=== PATIENT | male | born 1945 | race Two or more races ===

== ENCOUNTER 2023-10-24 12:24 | Emergency (ER) | payer MEDICARE, MEDICAID, SELFPAY ==
[2023-10-24] VITALS (23 sets, daily range): BP systolic 125–149; BP diastolic 72–106; PULSE 60–72; RESP 15–22; TEMP 36.5; O2SAT 94–99; BMI 30.2
--- NOTE | 2023-10-24 12:38 | ECG_ITS ---
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
--- NOTE | 2023-10-24 12:56 | PC.NURSE ---
pt states he's been having black stools for 2 weeks. weakness and dizziness since yesterday. pt does take a blood thinner.
[2023-10-24 13:09] LABS: Basophils Percent Auto 0.2 % (0.2-2.0); Eosinophils Absolute Auto 0.1 10^3/uL (0.0-0.7); Eosinophils Percent Auto 2.5 % (0.9-7.0); Hematocrit 42.7 % (42.0-54.0); Hemoglobin 13.3 g/dL (14.0-18.0); Immature Granulocytes Abs Auto 0.01 10^3/uL (0.00-0.03); Immature Granulocytes Pct Auto 0.2 % (0.0-0.5); Lymphocytes Absolute Auto 1.6 10^3/uL (1.2-3.8); Lymphocytes Percent Auto 30.4 % (20.5-60.0); Mean Corpuscular HGB Conc 31.1 g/dL (29.9-35.2); Mean Corpuscular Hemoglobin 28.8 pg (25.9-34.0); Mean Corpuscular Volume 92.4 fL (80.0-94.0); Mean Platelet Volume 9.5 fL (9.5-13.5); Monocytes Absolute Auto 0.4 10^3/uL (0.3-0.8); Neutrophils Percent Auto 58.7 % (43.0-75.0); Platelet Count 142 10^3/uL (150-450); Red Blood Count 4.62 10^6/uL (4.70-6.10); Red Cell Distribution Width 13.4 % (11.0-15.0); White Blood Count 5.1 10^3/uL (4.0-11.0)
--- NOTE | 2023-10-24 13:09 | CT_ITS ---
The [address] [address] Patient Name: TAJ RING MRN: [id number] date: 1945 Sex: M Assigned Patient Location: ER Current Patient Location: Accession/Order Number: [id number] Exam Date: 10/24/2023 13:20 Report Date: 10/24/2023 14:12 At the request of: JAROD PENNINGTON Procedure: CT abdomen pelvis wo con EXAM: CT abdomen pelvis wo con CLINICAL INDICATION: abd pain left upper and black stool COMPARISON: CT abdomen/pelvis 04/21/2016 TECHNIQUE: Axial CT of the abdomen, and pelvis was performed from the top of the hemidiaphragms to the inferior osseous pelvis without intravenous contrast. 2-D reformats were obtained. Automatic exposure control radiation dose reduction technology was utilized. FINDINGS: Evaluation is limited by lack of intravenous contrast. Visualized portion of the lung bases are unremarkable. Simple bilateral renal parapelvic cysts. The liver, spleen, adrenal glands and pancreas are unremarkable. Gallbladder present. No abdominal aortic aneurysm. No enlarged lymph nodes, free fluid, or free air. Diverticulosis coli without evidence for diverticulitis. The bowel is without evidence of obstruction or adjacent inflammatory changes. Bladder unremarkable. No suspicious osseous lesions. CT/CT abdomen pelvis wo con IMPRESSION: 1. No significant acute abnormality identified in the abdomen or pelvis, within the limits of unenhanced CT, as described above. Diverticulosis coli without evidence for diverticulitis. Electronically authenticated by: BRENDA SCHMID Date: 10/24/2023 14:12
--- NOTE | 2023-10-24 13:10 | ED_ITS ---
HPI - General Adult General Chief complaint: GI Bleed Stated complaint: rectal bleeding Time Seen by Provider: 10/24/23 12:37 Source: patient and family Mode of arrival: Wheelchair Limitations: physical limitation History of Present Illness HPI narrative: The patient is coming to the ER with a left upper quadrant epigastric pain in his abdomen in addition to black stool for the last 2 weeks, he noted that he is having 1 bout of black stool every morning for the last 2 weeks, he noticed that there was no blood in stool but there was no vomiting at any time and the patient did had nausea. The patient abdominal pain is continuous for the last 2 weeks he has not been taking any ibuprofen or mkwi-nhe-vlqeekk medication. He also noticed over the last few days that he has been having dizzy he is mostly dizzy when he is standing up. No chest pain no difficulty breathing Related Data Previous Rx's Medication Instructions Recorded dicyclomine 20 mg tablet 20 mg PO QID PRN abdominal pain 10/24/23 #10 tabs famotidine 20 mg tablet (Pepcid) 20 mg PO BID #10 tabs 10/24/23 pantoprazole 40 mg tablet,delayed 40 mg PO DAILY #30 tabs 10/24/23 release (Protonix) Allergies Allergy/AdvReac Type Severity Reaction Status Date / Time No Known Drug Allergies Allergy Verified 10/24/23 12:35 Review of Systems ROS Status of ROS 10 or more systems reviewed and unremark able except as noted in history and below [facility] Social History Smoking status: Never smoker Exam Narrative Exam Narrative: Nurses notes and vital signs reviewed and patient is not hypoxic. General: Well-appearing and in no apparent distress. Skin: Warm, dry, no pallor noted. No rash. Head: Normocephalic, atraumatic. Neck: Supple, non-tender. Eye: Pupils are equal, round and EOMI. No scleral icterus. Ears, Nose, Mouth, and Throat: TM are clear, no nasal mucosal hypertrophy. Oral mucosa is moist, no posterior oropharynx erythema, uvula is mid-line Cardiovascular: Regular Rate and Rhythm without murmur, gallop or rub. Respiratory: No accessory muscle use or respiratory distress. Lungs are clear to auscultation, no wheezing, rales or rhonchi Chest Wall: no tenderness Back: No midline thoracic or lumbar vertebral tenderness. No CVA tenderness Musculoskeletal: normal ROM, no calf or popliteal tenderness, no lower extremity edema/swelling GI: Abdomen is soft, distended abdomen with a left upper quadrant tenderness on deep palpation as well as epigastric tenderness. On rectal examination the patient have a very small hemorrhoid that is not bleeding with some black stool remnants at the verge of the rectum . Neurological: A&O x4. No cranial nerve dysfunction observed. No truncal ataxia. Moves all extremities. Sensation intact. Psychiatric: Cooperative and interactive. Normal mood and affect. Constitutional Vital Signs, click to edit/add: Last Vital Signs Temp 97.7 F 10/24/23 12:32 Pulse 62 10/24/23 15:30 Resp 15 10/24/23 15:30 BP 140/92 H 10/24/23 15:30 Pulse Ox 97 10/24/23 15:30 O2 Del Method Room Air 10/24/23 12:32 Course Vital Signs Vital signs: Vital Signs Temperature 97.7 F 10/24/23 12:32 Pulse Rate 63 10/24/23 12:32 Respiratory Rate 18 10/24/23 12:32 Blood Pressure 149/84 H 10/24/23 12:32 Pulse Oximetry 97 10/24/23 12:32 Oxygen Delivery Method Room Air 10/24/23 12:32 Temperature 97.7 F 10/24/23 12:32 Pulse Rate 62 10/24/23 15:30 Respiratory Rate 15 10/24/23 15:30 Blood Pressure 140/92 H 10/24/23 15:30 Pulse Oximetry 97 10/24/23 15:30 Oxygen Delivery Method Room Air 10/24/23 12:32 Medical Decision Making [facility] Narrative Medical decision making narrative: The patient was complaining of 1 bout of black stool daily for the last 2 weeks with crampy abdominal pain mostly in the left upper and lower quadrant, he did mention that he had a colonoscopy not long time ago during which they removed some polyps. The patient also mentioned that he was using Pepto-Bismol over the last 2 weeks when he have stomach pain. The patient in the ER was not orthostatic and he did not have any dizziness. The patient received Protonix as well as morphine after which she was feeling better for his pain The patient also had CAT scan of the abdomen showing no acute significant pathology. The patient occult blood was negative It was noted also that the patient came to us here today requesting to be evaluated for gastroenterology I did explain to the patient right now that he does not have any acute significant pathology and the workup that we did is hemoglobin level was around 14. There is no previous workup recently done for him to compare the level but the patient was not orthostatic and his occult was negative The patient was referred to gastroenterology as outpatient started on Pepcid and Protonix for his stomach instructed to stop using Pepto-Bismol at the moment and he also instructed to continue liquid diet for the next 2 to 3 days Patient have an appointment with his primary care doctor on Wednesday in which he is supposed to get his blood workup to be done. The patient also instructed that in case of increasing pain or any nausea or vomiting or any blood in stool again he is to come back to the ER The patient is to follow up with primary care physician in next 2-3 days or to return to the emergency department should any of the signs or symptoms worsen or new symptoms develop. The patient agrees with the following Diagnosis and Treatment plan and the patient will be discharged home. Lab Data Labs: Lab Results 10/24/23 Range/Units 12:50 WBC 5.1 (4.0-11.0) 10^3/uL RBC 4.62 L (4.70-6.10) 10^6/uL Hgb 13.3 L (14.0-18.0) g/dL Hct 42.7 (42.0-54.0) % MCV 92.4 (80.0-94.0) fL MCH 28.8 (25.9-34.0) pg MCHC 31.1 (29.9-35.2) g/dL RDW 13.4 (11.0-15.0) % Plt Count 142 L (150-450) 10^3/uL MPV 9.5 (9.5-13.5) fL Neut % (Auto) 58.7 (43.0-75.0) % Lymph % (Auto) 30.4 (20.5-60.0) % [place] % (Auto) 8.0 (1.7-12.0) % Eos % (Auto) 2.5 (0.9-7.0) % Baso % (Auto) 0.2 (0.2-2.0) % Neut # (Auto) 3.0 (1.4-6.5) 10^3/uL Lymph # (Auto) 1.6 (1.2-3.8) 10^3/uL [place] # (Auto) 0.4 (0.3-0.8) 10^3/uL Eos # (Auto) 0.1 (0.0-0.7) 10^3/uL Baso # (Auto) 0.0 (0.0-0.1) 10^3/uL Abs Immat Gran (auto) 0.01 (0.00-0.03) 10^3/uL Imm/Tot Granulo (auto) 0.2 (0.0-0.5) % PT 10.8 (9.0-11.6) sec INR 1.02 Sodium 145 (136-145) mmol/L Potassium 4.5 (3.5-5.1) mmol/L Chloride 109 H (98-107) mmol/L Carbon Dioxide 28.3 (21.0-32.0) mmol/L Anion Gap 12.2 BUN 20.0 H (7.0-18.0) mg/dL Creatinine 1.52 H (0.70-1.30) mg/dL Est GFR ( Amer) 54 L (>=60) Est GFR (Non-Af Amer) 45 L (>=60) BUN/Creatinine Ratio 13.2 Glucose 111 H (74-106) mg/dL Calcium 8.7 (8.5-10.1) mg/dL Total Bilirubin 0.6 (0.2-1.0) mg/dL AST 23 (15-37) U/L ALT 30 (16-63) U/L Alkaline Phosphatase 100 (46-116) U/L Troponin I High Sens 5.8 (4.0-76.1) pg/mL Total Protein 7.0 (6.4-8.2) g/dL Albumin 3.5 (3.4-5.0) g/dL Globulin 3.5 g/dL Albumin/Globulin Ratio 1.0 Stool Occult Blood Negative Blood Type O Positive Antibody Screen Negative Discharge Plan Discharge Chief Complaint: GI Bleed Clinical Impression: Black stool Abdominal pain Qualifiers: Abdominal location: generalized Qualified Code(s): R10.84 - Generalized abdominal pain Patient Disposition: Home, Self-Care Time of Disposition Decision: 16:09 Condition: Good Prescriptions / Home Meds: New famotidine [Pepcid] 20 mg tablet 20 mg PO BID Qty: 10 0RF pantoprazole [Protonix] 40 mg tablet,delayed release (DR/EC) 40 mg PO DAILY Qty: 30 0RF dicyclomine 20 mg tablet 20 mg PO QID PRN (Reason: abdominal pain) Qty: 10 0RF Instructions: Abdominal Pain (ED) Additional Instructions: Please follow up with Dr Hickey from [facility] [place] [address] [phone] Stand Alone Forms: Portal Instructions Referrals: KELLEN BALBUENA [Primary Care Provider] - 1 week
[2023-10-24] MEDS: 0.9 % SODIUM CHLORIDE 1,000 ML 1000 ML IV (13:13)
[2023-10-24 13:15] LABS: INR 1.02; Prothrombin Time 10.8 sec (9.0-11.6)
[2023-10-24 13:18] LABS: Occult Blood Negative
[2023-10-24 13:22] LABS: Alanine Aminotransferase 30 U/L (16-63); Albumin Level 3.5 g/dL (3.4-5.0); Alkaline Phosphatase 100 U/L (46-116); Anion Gap 12.2; Aspartate Amino Transferase 23 U/L (15-37); BUN Creatinine Ratio 13.2; Bilirubin Total 0.6 mg/dL (0.2-1.0); Calcium 8.7 mg/dL (8.5-10.1); Carbon Dioxide 28.3 mmol/L (21.0-32.0); Chloride 109 mmol/L (98-107); Estimated GFR (African America 54 (>=60); Estimated GFR (Non-African Ame 45 (>=60); Globulin 3.5 g/dL; Glucose 111 mg/dL (74-106); Potassium 4.5 mmol/L (3.5-5.1); Sodium 145 mmol/L (136-145); Troponin I High Sensitivity 5.8 pg/mL (4.0-76.1)
[2023-10-24] MEDS: PANTOPRAZOLE SODIUM 40 MG VIAL 80 MG IV (13:34)
[2023-10-24] MEDS: MORPHINE SULFATE 4 MG/ML VIAL IV (15:06)
== END 2023-10-24 16:32 | disposition home or self-care (01) ==
PROVIDERS: Emergency Provider Emergency Medicine; PCP Internal Medicine
DX: R19.5 Other fecal abnormalities (principal); R10.84 Generalized abdominal pain
CPT/HCPCS: 36415; 74176; 80053; 84484; 85025; 85610; 86850; 86900; 86901; 93005; 96361; 96374; 96375; 99285; G0328; J2270

== ENCOUNTER 2024-06-07 10:14 | Emergency (ER) | payer MEDICARE, MEDICAID, SELFPAY ==
[2024-06-07] VITALS (23 sets, daily range): BP systolic 112–148; BP diastolic 75–88; PULSE 56–69; TEMP 36.7–36.8; O2SAT 94–97
--- NOTE | 2024-06-07 10:37 | ECG_ITS ---
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
--- NOTE | 2024-06-07 10:44 | ED.CHESTPAI1 ---
HPI - Chest Pain General Chief Complaint: Chest Pain Stated Complaint: CHEST PAIN/SHORTNESS OF BREATH Time Seen by Provider: 06/07/24 10:17 Source: patient Mode of arrival: walk-in History of Present Illness HPI narrative: Patient presents ED complaint of left-sided chest pain that radiates around the left side. He has a history of 2 stents in his heart that were placed about 4 years ago. He has a history of high blood pressure. No diabetes. Patient states he received his COVID and flu vaccine May 18 and he thinks this chest pain is related to that although the chest pain did not start until about 3 days ago. He said he had a little cough but no shortness of breath. He said the pain gets worse when he stretches his chest wall or takes a deep breath in and expands his chest wall. He denies any leg pain or swelling. No syncope no nausea vomiting. Alert and oriented in no acute distress. Related Data Previous Rx's ?Medication ?Instructions ?Recorded dicyclomine 20 mg tablet 20 mg PO QID PRN abdominal pain 10/24/23 #10 tabs famotidine 20 mg tablet (Pepcid) 20 mg PO BID #10 tabs 10/24/23 pantoprazole 40 mg tablet,delayed 40 mg PO DAILY #30 tabs 10/24/23 release (Protonix) Allergies Allergy/AdvReac Type Severity Reaction Status Date / Time No Known Drug Allergies Allergy Verified 10/24/23 12:35 Review of Systems ROS Status of ROS 10 or more systems reviewed and unremarkable except as noted in history and below [facility] Medical History (Updated 06/07/24 @ 13:18 by Eugenia Huston DO) HTN (hypertension) ?I10 - Essential (primary) hypertension (ICD-10) Surgical History (Updated 06/07/24 @ 11:00 by Faina Lamar) H/O heart artery stent ?Z95.5 - Presence of coronary angioplasty implant and graft (ICD-10) Social History Smoking status: Never smoker Exam Narrative Exam Narrative: Time Seen: [] Vital Signs: [Per nurse's notes.] General: [Alert] Skin: [Warm, dry, no rash.] Head: [Normocephalic, atraumatic.] Neck: [Supple, trachea midline.] Eye: [Pupils are equal, round and reactive to light, extraocular movements are intact, normal conjunctiva.] Ears, nose, mouth and throat: oral mucosa moist. Cardiovascular: [Regular rate and rhythm, no murmur.] Respiratory: [Lungs are clear to auscultation, respirations are non-labored, breath sounds are equal.] Chest wall: [No tenderness, no deformity.] Gastrointestinal: [Soft, nontender, non distended, normal bowel sounds.] MSK: 5 out of 5 muscle strength x 4 extremities no calf pain or edema Lymphatics: [No lymphadenopathy.] Psychiatric: [Cooperative, appropriate mood & affect.] Neurological: [Alert and oriented to person, place, time, and situation, no focal neurological deficit observed.] Constitutional Vital Signs, click to edit/add: Last Vital Signs Temp 98.2 F 06/07/24 13:32 Pulse 60 06/07/24 13:32 Resp 17 06/07/24 13:32 BP 143/83 H 06/07/24 13:32 Pulse Ox 96 06/07/24 13:32 O2 Del Method Room Air 06/07/24 13:32 Course Vital Signs Vital signs: Vital Signs Temperature 98.1 F 06/07/24 10:19 Pulse Rate 67 06/07/24 10:19 Respiratory Rate 20 06/07/24 10:19 Blood Pressure 148/88 H 06/07/24 10:19 Pulse Oximetry 96 06/07/24 10:19 Oxygen Delivery Method Room Air 06/07/24 10:19 Temperature 98.2 F 06/07/24 13:32 Pulse Rate 60 06/07/24 13:32 Respiratory Rate 17 06/07/24 13:32 Blood Pressure 143/83 H 06/07/24 13:32 Pulse Oximetry 96 06/07/24 13:32 Oxygen Delivery Method Room Air 06/07/24 13:32 MDM - Chest Pain MDM Narrative Medical decision making narrative: Patient's labs are negative including troponin x 2. I feel like this may be more musculoskeletal as it hurts more when the patient expands his rib cage with a breath or stretching on that left side. No rash seen on the chest wall. COVID-negative. Chest x-ray clear. Patient has a family doctor to follow-up with but if things are worsening at home please return to ED for further evaluation. Patient and family are comfortable care plan for home Differential Diagnosis Differential diagnosis: Likely stable angina, unstable angina pectoris, atypical chest pain, st elevation myocardial infarction, costochondritis and chest pain Lab Data Attestation: I reviewed the patient's lab results. Labs: Lab Results 06/07/24 06/07/24 Range/Units 10:35 12:39 WBC 6.2 (4.0-11.0) 10^3/uL RBC 4.75 (4.70-6.10) 10^6/uL Hgb 13.9 L (14.0-18.0) g/dL Hct 43.1 (42.0-54.0) % MCV 90.7 (80.0-94.0) fL MCH 29.3 (25.9-34.0) pg MCHC 32.3 (29.9-35.2) g/dL RDW 13.6 (11.0-15.0) % Plt Count 164 (150-450) 10^3/uL MPV 9.1 L (9.5-13.5) fL Neut % (Auto) 59.9 (43.0-75.0) % Lymph % (Auto) 27.9 (20.5-60.0) % [place] % (Auto) 8.3 (1.7-12.0) % Eos % (Auto) 2.4 (0.9-7.0) % Baso % (Auto) 0.5 (0.2-2.0) % Neut # (Auto) 3.7 (1.4-6.5) 10^3/uL Lymph # (Auto) 1.7 (1.2-3.8) 10^3/uL [place] # (Auto) 0.5 (0.3-0.8) 10^3/uL Eos # (Auto) 0.2 (0.0-0.7) 10^3/uL Baso # (Auto) 0.0 (0.0-0.1) 10^3/uL Abs Immat Gran (auto) 0.06 H (0.00-0.03) 10^3/uL Imm/Tot Granulo (auto) 1.0 H (0.0-0.5) % PT 10.9 (9.0-11.6) sec INR 1.03 Sodium 137 (136-145) mmol/L Potassium 4.5 (3.5-5.1) mmol/L Chloride 104 (98-107) mmol/L Carbon Dioxide 32.7 H (21.0-32.0) mmol/L Anion Gap 4.8 BUN 22.0 H (7.0-18.0) mg/dL Creatinine 1.64 H (0.70-1.30) mg/dL Est GFR ( Amer) 50 L (>=60) Est GFR (Non-Af Amer) 41 L (>=60) BUN/Creatinine Ratio 13.4 Glucose 106 (74-106) mg/dL Calcium 8.7 (8.5-10.1) mg/dL Total Bilirubin 0.5 (0.2-1.0) mg/dL AST 25 (15-37) U/L ALT 36 (16-63) U/L Alkaline Phosphatase 102 (46-116) U/L Troponin I High Sens 6.5 7.1 (4.0-76.1) pg/mL Total Protein 6.9 (6.4-8.2) g/dL Albumin 3.3 L (3.4-5.0) g/dL Globulin 3.6 g/dL Albumin/Globulin Ratio 0.9 Imaging Data Chest x-ray: Radiologist's impression: ITS Impressions Chest X-Ray 06/07/24 11:05 IMPRESSION: No acute heart or lung disease identified. Electronically authenticated by: MARTI HERNANDEZ Date: 06/07/2024 11:15 ECG Data Attestation: I personally reviewed and interpreted this ECG as follows: Interpretation: EKG INTERPRETATION Time: []1027 Rate: []62 Rhythm: _ []Normal sinus rhythm ST segments: _ []No acute ST elevation or depression T waves: _ [] Ectopy: _ [] P wave/KS interval: _ [] QRS interval: _ [] QT interval: _ [] Comparison: _ [] Comparison EKG date: [] Performed by: [self]Left axis deviation Heart Score History: Slightly/Non-Suspicious ECG: Normal Age: >65 years Risk Factors: 1 or 2 Risk Factors Troponin: <Normal Limit Total Heart Score Recommendations & Risks:: 3 Discharge Plan Discharge Chief Complaint: Chest Pain Clinical Impression: Chest pain Patient Disposition: Home, Self-Care Time of Disposition Decision: 13:18 Mode of Transportation: Private Vehicle Prescriptions / Home Meds: No Action famotidine [Pepcid] 20 mg tablet 20 mg PO BID Qty: 10 0RF pantoprazole [Protonix] 40 mg tablet,delayed release (DR/EC) 40 mg PO DAILY Qty: 30 0RF dicyclomine 20 mg tablet 20 mg PO QID PRN (Reason: abdominal pain) Qty: 10 0RF Print Language: [place] Instructions: Chest Pain (ED) Referrals: KELLEN BALBUENA [Primary Care Provider] - 1 week Discharge Date/Time: 06/07/24 13:37
--- OUTSIDE RECORDS SUMMARY | 2024-06-07 10:47 | XMS_ITS | CCD ---
Author Organization [facility] Care Team Providers Care 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 Name Role Phone DR MONO KNOWLES Attending Unavailable ESHA, DR FOREMAN Primary Care Unavailable DR MONO KNOWLES Admitting Unavailable Mnoo Knowles MD Unavailable Mono Knowles MD Primary Care Provider [phone] Mono Knowles MD Primary Care Provider GUME SON Attending Unavailable MONO KNOWLES Referring Unavailable MONO KNOWLES Primary Care Unavailable MONO KNOWLES Referring Unavailable MONO KNOWLES Primary Care Unavailable MONO KNOWLES Primary Care Unavailable JOMAR SCHWARTZ Attending Unavailable JOMAR SCHWARTZ Attending Unavailable JOMAR SCHWARTZ A Referring Unavailable ESHA MONO B Primary Care Unavailable ESHA MONO B Primary Care Unavailable DMITRY, RYLAN T Attending Unavailable DMITRY, RYLAN T Attending Unavailable DMITRY, RYLAN T Referring Unavailable ESHA MONO B Primary Care Unavailable DMITRY, RYLAN T Attending Unavailable DMITRY, RYLAN T Referring Unavailable ESHA MONO B Primary Care Unavailable DMITRY, RYLAN T Attending Unavailable DMITRY, RYLAN T Referring Unavailable ESHA MONO B Primary Care Unavailable MONO KNOWLES B Attending Unavailable MONO KNOWLES Attending Unavailable MONO KNOWLES Attending Unavailable MONO KNOWLES Attending Unavailable MONO KNOWLES Attending Unavailable VERONICA THORNTON Attending Unavailable Allergies Allergy Classification Reported Allergen(s) Allergy Type Date of Onset Reaction(s) Facility Unclassified (1 source) Pneumovax 23 Drug allergy (disorder) [facility] (3 sources) Pneumococcal 20-Roselyn Conj Vacc Drug Intolerance 1 Swelling [facility] Healthcare Work Phone: (3 sources) Pneumococcal Vac Polyvalent Drug Allergy 1 Swelling [facility] (6 sources) Streptococcus pneumoniae type 1 capsular polysaccharide antigen / Streptococcus pneumoniae type 10A capsular polysaccharide antigen / Streptococcus pneumoniae type 11A capsular polysaccharide antigen / Streptococcus pneumoniae type 12F capsular polysaccharide antigen / Streptococcus pneumoniae type 14 capsular polysaccharide antigen / Streptococcus pneumoniae type 15B capsular polysaccharide antigen / Streptococcus pneumoniae type 17F capsular polysaccharide antigen / Streptococcus pneumoniae type 18C capsular polysaccharide antigen / Streptococcus pneumoniae type 19A capsular polysaccharide antigen / Streptococcus pneumoniae type 19F capsular polysaccharide antigen / Streptococcus pneumoniae type 2 capsular polysaccharide antigen / Streptococcus pneumoniae type 20 capsular polysaccharide antigen / Streptococcus pneumoniae type 22F capsular polysaccharide antigen / Streptococcus pneumoniae type 23F capsular polysaccharide antigen / Streptococcus pneumoniae type 3 capsular polysaccharide antigen / Streptococcus pneumoniae type 33F capsular polysaccharide antigen / Streptococcus pneumoniae type 4 capsular polysaccharide antigen / Streptococcus pneumoniae type 5 capsular polysaccharide antigen / Streptococcus pneumoniae type 6B capsular polysaccharide antigen / Streptococcus pneumoniae type 7F capsular polysaccharide antigen / Streptococcus pneumoniae type 8 capsular polysaccharide antigen / Streptococcus pneumoniae type 9N capsular polysaccharide antigen / Streptococcus pneumoniae type 9V capsular polysaccharide antigen; Translations: [PNEUMOCOCCAL 23-ROSELYN PS VACCINE] Drug Allergy 1 Swelling [facility] Medications Current Medications Medication Drug Class(es) Dates Sig (Normalized) Sig (Original) acetaminophen 325 mg / HYDROcodone bitartrate 10 mg oral tablet (8 sources) Opioid Agonist Start: 10-06-2023 take 1 tablet by mouth every six hours for pain HYDROcodone-aceta minophen ([place]) 10-325 MG tablet Indications: Cervical stenosis of spinal canal Take 1 tablet by mouth every 6 (six) hours if needed for severe pain 120 tablet 0 10/06/2023 Active Start: 01-14-2022 HYDROcodone-ac etaminophen (NORCO) 10-325 mg per tablet as needed. 0 01/14/2022 Active allopurinol 100 mg oral tablet (4 sources) Xanthine Oxidase Inhibitor take 1 tablet by mouth in the morning allopurinoL (ZYLOPRIM) 100 mg tablet Take 1 tablet (100 mg total) by mouth in the morning. 0 Active ALPRAZolam 1 mg oral tablet (8 sources) Benzodiazepine Start: 09-30-19 take 1 tablet by mouth every six hours as needed for anxiety and anxiety and anxiety ALPRAZolam (Xanax) 1 MG tablet Indications: Anxiety Take 1 tablet (1 mg) by mouth every 6 (six) hours if needed for anxiety 60 tablet 3 09/30/2023 Active take 1 tablet by fatimah th once daily as needed for anxiety ALPRAZolam (XANAX) 1 mg tablet Take 1 tablet (1 mg total) by mouth nightly as needed for anxiety. 0 Active amLODIPine 2.5 mg oral tablet (4 sources) Dihydropyridine Calcium Channel Antonia Start: 06-18-2023 take 1 tablet by mouth in the morning amLODIPine (NORVASC) 2.5 mg tablet Take 1 tablet (2.5 mg total) by mouth in the morning. 0 06/18/2023 Active carvedilol 25 mg oral tablet (9 sources) alpha-Adrenergic Antonia, beta-Adrenergic Antonia Start: 07-23-2022 End: 10-28-2023 take 1 tablet by mouth in the morning, then take 1 tablet by mouth at mealtime carvediloL (COREG) 25 mg tablet Take 1 tablet (25 mg total) by mouth in the morning and 1 tablet (25 mg total) in the evening. Take with meals. 60 tablet 1 10/29/2023 Active clopidogrel 75 mg oral tablet (8 sources) P2Y12 Platelet Inhibitor Start: 09-10-2019 take 1 tablet by mouth in the morning clopidogrel (PLAVIX) 75 mg tablet Take 1 tablet (75 mg total) by mouth in the morning. 0 09/10/2019 Active colchicine 0.6 mg oral capsule (8 sources) Start: 07-08-2022 take 1 capsule by mouth in the morning colchicine (MITIGARE) 0.6 mg capsule Take 1 capsule (0.6 mg total) by mouth in the morning. 0 07/08/2022 Active Comirnaty 30 MCG/0.3ML suspension prefilled syringe (3 sources) Start: 06-21-2023 End: 10-27-2023 Comirnaty 30 MCG/0.3ML suspension prefilled syringe Start: 06-21-2023 Comirnaty 30 M CG/0.3ML suspension prefilled syringe dicyclomine hydrochloride 20 mg oral tablet (1 source) Anticholinergic Start: 10-24-2023 take 1 tablet by mouth every six hours dicyclomine (BENTYL) 20 mg tablet Take 1 tablet (20 mg total) by mouth every 6 (six) hours. 0 10/24/2023 Active famotidine 20 mg oral tablet (1 source) Histamine-2 Receptor Antagonist Start: 11-02-2023 take 1 tablet by mouth in the morning famotidine (PEPCID) 20 mg tablet Take 1 tablet (20 mg total) by mouth in the morning. 0 11/02/2023 Active Fluzone High-Dose Quadrivalent syringe (3 sources) Start: 07-12-2023 End: 10-27-2023 Fluzone High-Dose Quadrivalent syringe Start: 07-12-2023 Fluzone High-D ose Quadrivalent syringe gabapentin 300 mg oral capsule (4 sources) Anti-epileptic Agent Start: 07-26-2023 End: 07-25-2024 take 1 capsule by mouth once daily gabapentin (NEURONTIN) 300 mg capsule Take 1 capsule (300 mg total) by mouth nightly. 0 07/26/2023 07/25/2024 Active linaclotide 0.072 mg oral capsule (3 sources) Guanylate Cyclase-C Agonist Start: 03-25-2023 take 1 capsule by mouth before mealtime linaCLOtide (Linzess) 72 MCG capsule Indications: Drug induced constipation Take 1 capsule (72 mcg) by mouth in the morning. Take before meals. 30 capsule 5 03/25/2023 Active Magnesium (3 sources) magnesium 250 MG tablet 1 (one) time each day at the same time. 0 Active nitroglycerin 0.4 mg sublingual tablet (3 sources) Nitrate Vasodilator Start: 10-27-2023 End: 10-26-2024 nitroglycerin (NITROSTAT) 0.[address] 1 tablet (0.4 mg total) under the tongue every 5 (five) minutes as needed. 0 10/27/2023 10/26/2024 Active ondansetron 4 mg oral tablet (8 sources) Serotonin-3 Receptor Antagonist take 1 tablet by mouth every eight hours as needed for nausea and vomiting ondansetron (ZOFRAN) 4 mg tablet Take 1 tablet (4 mg total) by mouth every 8 (eight) hours as needed for nausea or vomiting. 0 Active pantoprazole 40 mg delayed release oral tablet (8 sources) Proton Pump Inhibitor Start: 10-04-2023 take 1 tablet by mouth once daily pantoprazole (ProtoNix) 40 MG EC tablet Indications: Benign essential hypertension (CMS/HCC) TAKE ONE TABLET BY MOUTH DAILY 100 tablet 3 10/04/2023 Active simvastatin 40 mg oral tablet (8 sources) HMG-CoA Reductase Inhibitor Start: 10-06-2023 End: 01-14-2024 take 1 tablet by mouth at bedtime simvastatin (Zocor) 40 MG tablet Indications: Atherosclerosis of [place] coronary artery of [place] heart without angina pectoris (CMS/HCC) Take 1 tablet (40 mg) by mouth at bedtime 100 tablet 0 10/06/2023 01/14/2024 Active sucralfate 1000 mg oral tablet (8 sources) Aluminum Complex Start: 09-18-2022 End: 02-02-2024 take 1 tablet by mouth at bedtime sucralfate (CARAFATE) 1 gram tablet Take 1 tablet (1 g total) by mouth in the morning and 1 tablet (1 g total) at noon and 1 tablet (1 g total) in the evening and 1 tablet (1 g total) before bedtime. 120 tablet 1 09/18/2022 Active zolpidem tartrate 10 mg oral tablet (8 sources) gamma-Aminobutyric Acid-ergic Agonist Start: 08-18-2023 take 1 tablet by mouth at bedtime zolpidem (Ambien) 10 MG tablet Indications: Chronic insomnia TAKE 1 TABLET BY MOUTH AT BEDTIME 30 tablet 2 08/18/2023 Active Completed/Discontinued Medications Medication Drug Class(es) Dates Sig (Normalized) Sig (Original) cefadroxil 500 mg oral capsule (5 sources) Cephalosporin Antibacterial End: 12-09-2023 take 2 capsules by mouth in the morning, then take 2 capsules by mouth at bedtime cefaDROXil (DURICEF) 500 mg capsule Take 2 capsules (1,000 mg total) by mouth in the morning and 2 capsules (1,000 mg total) before bedtime. 0 12/09/2023 Discontinued (Therapy completed) Problems Active Problems Problem Classification Problem Date Documented Da te Episodic/Chronic Acute myocardial infarction (8 sources) Myocardial infarction; Translations: [Acute myocardial infarction, unspecified] Onset: 7 Resolved: 3 02-03-2023 Chronic Anxiety disorders (8 sources) Anxiety; Translations: [Anxiety disorder, unspecified] Onset: 3 01-19-2023 Chronic Chronic kidney disease (3 sources) Chronic kidney disease stage 3B ; Translations: [Stage 3b chronic kidney disease (HCC)] Onset: 3 01-19-2023 Chronic Conditions associated with dizziness or vertigo (1 source) Dizziness and giddiness; Translations: [Dizziness and giddiness] Onset: 4 Episodic Coronary atherosclerosis and other heart disease (20 sources) Coronary occlusion; Translations: [Atherosclerotic heart disease of [place] coronary artery without angina pectoris] Onset: 4 Resolved: 4 01-19-2023 Chronic Disorders of lipid metabolism (15 sources) Hyperlipidemia; Translations: [Hyperlipidemia, unspecified] Onset: 4 Resolved: 8 01-19-2023 Chronic Diverticulosis and diverticulitis (20 sources) Diverticulosis of colon; Translations: [Diverticulosis of large intestine without perforation or abscess without bleeding] Onset: 9 Resolved: 4 01-19-2023 Chronic E Codes: Fall (1 source) Unspecified fall, initial encounter; Translations: [Unspecified fall, initial encounter] Onset: 4 Episodic E Codes: Fall (1 source) Fall Onset: 4 Esophageal disorders (13 sources) Gastro-esophageal reflux disease with esophagitis; Translations: [Gastroesophageal reflux disease with esophagitis without hemorrhage] Onset: 7 Resolved: 3 01-19-2023 Chronic Essential hypertension (16 sources) Benign essential hypertension; Translations: [Essential (primary) hypertension] Onset: 0 Resolved: 3 01-19-2023 Chronic Gout and other crystal arthropathies (8 sources) Chronic gouty arthritis; Translations: [Idiopathic chronic gout, unspecified site, without tophus (tophi)] Onset: 3 01-19-2023 Chronic Hyperplasia of prostate (8 sources) Benign prostatic hyperplasia; Translations: [Benign prostatic hyperplasia without lower urinary tract symptoms] Onset: 1 02-03-2023 Chronic Inflammatory conditions of male genital organs (8 sources) Balanitis; Translations: [Balanitis] Onset: 1 Resolved: 3 02-03-2023 Chronic Malaise and fatigue (1 source) Weakness; Translations: [Weakness] Onset: 4 Episodic Miscellaneous mental health disorders (3 sources) Chronic insomnia; Translations: [Psychophysiologic insomnia] Onset: 3 01-19-2023 Chronic Osteoarthritis (14 sources) Arthritis of right hip; Translations: [Unilateral primary osteoarthritis, right hip] Onset: 9 01-19-2023 Chronic Other gastrointestinal disorders (4 sources) 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; Translations: [Irritable bowel syndrome with constipation] Onset: 4 10-27-2023 Chronic Other nervous system disorders (3 sources) Chronic pain; Translations: [Other chronic pain] Onset: 3 01-19-2023 Chronic Other nervous system disorders (3 sources) Chronic postoperative pain; Translations: [Other chronic postprocedural pain] Onset: 7 02-03-2023 Chronic Other nutritional; endocrine; and metabolic disorders (3 sources) Hypocalcemia; Translations: [Hypocalcemia] Onset: 3 01-19-2023 Chronic Other nutritional; endocrine; and metabolic disorders (10 sources) Body mass index 30+ - obesity; Translations: [Obesity, unspecified] Onset: 2 01-19-2023 Chronic Peripheral and visceral atherosclerosis (5 sources) Arteriosclerotic vascular disease; Translations: [Unspecified atherosclerosis] Onset: 3 09-18-2022 Chronic Spondylosis; intervertebral disc disorders; other back problems (15 sources) Cervical spondylosis without myelopathy; Translations: [Spondylosis without myelopathy or radiculopathy, cervical region] Onset: 1 01-19-2023 Chronic Spondylosis; intervertebral disc disorders; other back problems (13 sources) Spinal stenosis in cervical region; Translations: [Spinal stenosis, cervical region] Onset: 9 Resolved: 4 01-19-2023 Episodic Unclassified (1 source) Ill Onset: 4 Unclassified (1 source) Subacute cough; Translations: [Subacute cough] Onset: 4 Past or Other Problems Problem Classification Problem Date Documented Da te Episodic/Chronic Abdominal hernia (10 sources) Hiatal hernia; Translations: [Diaphragmatic hernia without obstruction or gangrene] Onset: 09-18-2022 01-19-2023 Episodic Abdominal pain (1 source) Abdominal pain Onset: 10-25-2023 Episodic Acute and unspecified renal failure (8 sources) [id number]-[id number] renal failure; Translations: [Acute kidney failure, unspecified] Onset: 09-20-2020 Resolved: 02-03-2023 02-03-2023 Episodic Coronary atherosclerosis and other heart disease (10 sources) Stented coronary artery; Translations: [Presence of coronary angioplasty implant and graft] Onset: 09-22-2013 Resolved: 08-02-2018 02-03-2023 Episodic Gastritis and duodenitis (8 sources) Gastritis; Translations: [Gastritis, unspecified, without bleeding] Onset: 09-18-2022 01-19-2023 Episodic Gastroduodenal ulcer (except hemorrhage) (8 sources) H/O: gastric ulcer; Translations: [Personal history of peptic ulcer disease] Onset: 09-18-2022 02-03-2023 Episodic Gastrointestinal hemorrhage (1 source) Rectal hemorrhage Onset: 10-25-2023 Episodic Genitourinary symptoms and ill-defined conditions (5 sources) Disorder of the urinary system; Translations: [Disorder of urinary system, unspecified] Onset: 06-06-2021 08-22-2021 Episodic Nonspecific chest pain (8 sources) Chest pain; Translations: [Chest pain, unspecified] Onset: 01-23-2017 Resolved: 02-03-2023 02-03-2023 Episodic Other and unspecified benign neoplasm (3 sources) History of polyp of colon; Translations: [Personal history of colonic polyps] Onset: 04-26-2019 02-03-2023 Episodic Other and unspecified benign neoplasm (5 sources) Polyp of colon; Translations: [Polyp of colon] Onset: 09-18-2022 09-18-2022 Episodic Other connective tissue disease (3 sources) Pain of right thigh; Translations: [Pain in right thigh] Onset: 01-19-2023 01-19-2023 Episodic Other gastrointestinal disorders (3 sources) History of disorder of digestive system; Translations: [Personal history of other diseases of the digestive system] Onset: 07-12-2020 02-03-2023 Episodic Other gastrointestinal disorders (3 sources) Constipation; Translations: [Constipation, unspecified] Onset: 09-28-2017 Resolved: 02-03-2023 02-03-2023 Episodic Other injuries and conditions due to external causes (8 sources) Injury of penis; Translations: [Unspecified injury of external genitals, initial encounter] Onset: 06-06-2021 Resolved: 02-03-2023 02-03-2023 Episodic Other injuries and conditions due to external causes (8 sources) Traumatic rhabdomyolysis; Translations: [Traumatic ischemia of muscle, initial encounter] Onset: 09-20-2020 Resolved: 02-03-2023 02-03-2023 Episodic Other male genital disorders (5 sources) Phimosis; Translations: [Phimosis] Onset: 06-06-2021 07-04-2021 Episodic Residual codes; unclassified (8 sources) Confusional state; Translations: [Disorientation, unspecified] Onset: 09-16-2020 Resolved: 02-03-2023 02-03-2023 Episodic Viral infection (8 sources) Disease caused by 2019-nCoV; Translations: [COVID-19] Onset: 09-20-2020 Resolved: 02-03-2023 02-03-2023 Episodic Results Test Name Value Interpretation Reference Range Facil ity CBC AND AUTO DIFFon 05-18-20 Eosinophils (Bld) [#/Vol] 0.1 10*3/uL Normal 0.0-0.4 [facility] Comment on above: Performed By: #### C BCA, PINR, 72100-2, 60120-0, BMP, 3040-3, LIVR, 29716-3, 40675-0 #### [facility] ([id number]) [address] [place] [address] [id number] Eosinophils/100 WBC (Bld) 1.3 % Normal [facility] Comment on above: Performed By: #### C BCA, PINR, 01548-8, 86390-0, BMP, 3040-3, LIVR, 88167-9, 28886-6 #### [facility] ([id number]) [address] [place] [address] 29804 Erythrocyte distribution width (RBC) [Ratio] 15.4 % High 11.5-15.0 [facility] Comment on above: Performed By: #### C BCA, PINR, 71973-0, 76691-5, BMP, 3040-3, LIVR, 10253-5, 38379-6 #### [facility] ([id number]) [address] [place] [address] 53032 Hematocrit (Bld) [Volume fraction] 42.1 % Normal 39-49 [facility] Comment on above: Performed By: #### C BCA, PINR, 52901-0, 10791-8, BMP, 3040-3, LIVR, 68097-0, 87687-6 #### [facility] ([id number]) [address] [place] [address] 72997 Hemoglobin (Bld) [Mass/Vol] 13.9 g/dL Normal 13.0-17.0 [facility] Comment on above: Performed By: #### C BCA, PINR, 27882-6, 24962-9, BMP, 3040-3, LIVR, 77690-7, 38081-2 #### [facility] ([id number]) [address] [place] [address] 27707 Lymphocytes (Bld) [#/Vol] 1.0 10*3/uL Normal 1.0-3.5 [facility] Comment on above: Performed By: #### C BCA, PINR, 65643-3, 39122-6, BMP, 3040-3, LIVR, 24179-7, 97590-5 #### [facility] ([id number]) [address] [place] [address] 97632 Lymphocytes/100 WBC (Bld) 13.2 % Normal [facility] Comment on above: Performed By: #### C BCA, PINR, 72005-3, 39783-1, BMP, 3040-3, LIVR, 42391-9, 48031-8 #### [facility] ([id number]) [address] [place] [address] 93693 MCH (RBC) [Entitic mass] 29.2 pg Normal 27-34 [facility] Comment on above: Performed By: #### C BCA, PINR, 14609-7, 68648-0, BMP, 3040-3, LIVR, 77370-8, 69368-7 #### [facility] ([id number]) [address] [place] [address] 13285 MCHC (RBC) [Mass/Vol] 33.1 g/dL Normal 32-36 [facility] Comment on above: Performed By: #### C BCA, PINR, 39899-9, 98897-8, BMP, 3040-3, LIVR, 55525-3, 21389-3 #### [facility] ([id number]) [address] [place] [address] 56990 MCV (RBC) [Entitic vol] 88 fL Normal 80-100 [facility] Comment on above: Performed By: #### C BCA, PINR, 88948-7, 25480-6, BMP, 3040-3, LIVR, 74401-4, 72359-2 #### [facility] ([id number]) [address] [place] [address] 45952 Monocytes (Bld) [#/Vol] 0.5 10*3/uL Normal 0-0.9 [facility] Comment on above: Performed By: #### C BCA, PINR, 12772-3, 41769-3, BMP, 3040-3, LIVR, 68108-5, 27226-4 #### [facility] ([id number]) [address] [place] [address] 63897 Monocytes/100 WBC (Bld) 6.6 % Normal [facility] Comment on above: Performed By: #### C BCA, PINR, 25123-5, 32249-4, BMP, 3040-3, LIVR, 10242-0, 46434-0 #### [facility] ([id number]) [address] [place] [address] 63961 Neutrophils (Bld) [#/Vol] 6.1 10*3/uL Normal 1.5-6.6 [facility] Comment on above: Performed By: #### C BCA, PINR, 96488-5, 11280-5, BMP, 3040-3, LIVR, 82022-4, 61581-2 #### [facility] ([id number]) [address] [place] [address] 75378 Platelet mean volume (Bld) [Entitic vol] 7.4 fL Normal 7-12 [facility] Comment on above: Performed By: #### C BCA, PINR, 05736-2, 84479-1, BMP, 3040-3, LIVR, 86818-8, 95840-4 #### [facility] ([id number]) [address] [place] [address] 42575 Platelets (Bld) [#/Vol] 134 10*3/uL Low 150-450 [facility] Comment on above: Performed By: #### C BCA, PINR, 32202-8, 40441-6, BMP, 3040-3, LIVR, 03482-0, 53327-8 #### [facility] ([id number]) [address] [place] [address] 73356 RBC COUNT 4.76 X10E12/L Normal 4.10-5.70 [facility] Comment on above: Performed By: #### C BCA, PINR, 51072-6, 89653-1, BMP, 3040-3, LIVR, 50481-2, 10356-6 #### [facility] ([id number]) [address] [place] [address] 36680 SEG NEUTROPHIL 78.9 % Normal [facility] Comment on above: Performed By: #### C BCA, PINR, 76377-0, 20701-1, BMP, 3040-3, LIVR, 97954-6, 65881-2 #### [facility] ([id number]) [address] [place] [address] 34657 WBC (Bld) [#/Vol] 7.7 10*3/uL Normal 4.0-11.0 [facility] Comment on above: Performed By: #### C BCA, PINR, 04217-0, 62617-1, BMP, 3040-3, LIVR, 78499-3, 98157-2 #### [facility] ([id number]) [address] [place] [address] 19815 COMPREHENSIVE METABOLIC PANE Reji 05-18-2024 Albumin [Mass/Vol] 3.9 g/dL Normal 3.2-5.3 [facility] Comment on above: Performed By: #### C BCA, PINR, 41713-9, 81863-8, BMP, 3040-3, LIVR, 32690-4, 73540-1 #### [facility] ([id number]) [address] [place] [address] 19044 ALP [Catalytic activity/Vol] 92 U/L Normal 39-130 [facility] Comment on above: Performed By: #### C BCA, PINR, 99965-8, 07446-0, BMP, 3040-3, LIVR, 83133-6, 67600-1 #### [facility] ([id number]) [address] [place] [address] 83789 ALT [Catalytic activity/Vol] 48 U/L High 0-40 [facility] Comment on above: Performed By: #### C BCA, PINR, 69386-3, 09216-5, BMP, 3040-3, LIVR, 32713-3, 97251-7 #### [facility] ([id number]) [address] [place] [address] 53375 Anion gap [Moles/Vol] 8 mmol/L Normal 5-15 [facility] Comment on above: Performed By: #### C BCA, PINR, 52258-5, 25352-1, BMP, 3040-3, LIVR, 34842-2, 58074-7 #### [facility] ([id number]) [address] [place] [address] 59871 AST [Catalytic activity/Vol] 29 U/L Normal 0-41 [facility] Comment on above: Performed By: #### C BCA, PINR, 39207-8, 94178-2, BMP, 3040-3, LIVR, 25806-4, 45143-0 #### [facility] ([id number]) [address] [place] [address] 59474 Bilirubin [Mass/Vol] 1.1 mg/dL Normal 0.3-1.2 [facility] Comment on above: Performed By: #### C BCA, PINR, 19590-8, 46600-6, BMP, 3040-3, LIVR, 65364-0, 55753-7 #### [facility] ([id number]) [address] [place] [address] 26132 Calcium [Mass/Vol] 8.4 mg/dL Low 8.5-10.5 [facility] Comment on above: Performed By: #### C BCA, PINR, 97227-4, 72055-5, BMP, 3040-3, LIVR, 19788-4, 56902-0 #### [facility] ([id number]) [address] [place] [address] 22405 Chloride [Moles/Vol] 103 mmol/L Normal 98-109 [facility] Comment on above: Performed By: #### C BCA, PINR, 07861-8, 24736-4, BMP, 3040-3, LIVR, 18670-6, 63881-6 #### [facility] ([id number]) [address] [place] [address] [place] [address] CO2 [Moles/Vol] 25 mmol/L Normal 22-32 [facility] Comment on above: Performed By: #### C BCA, PINR, 99626-0, 02925-5, BMP, 3040-3, LIVR, 54969-6, 77808-1 #### [facility] ([id number]) [address] [place] [address] 47810 Creatinine [Mass/Vol] 1.51 mg/dL High 0.70-1.20 [facility] Comment on above: Result Comment: METH OD TRACEABLE TO IDMS STANDARD Performed By: #### C BCA, PINR, 71249-6, 80853-0, BMP, 3040-3, LIVR, 41861-3, 92339-3 #### [facility] ([id number]) [address] [place] [address] 98774 GFR/1.73 sq M.predicted among non-blacks MDRD (S/P/Bld) [Vol rate/Area] 47 mL/min/{1.73_m2} Low >59 [facility] Comment on above: Result Comment: Reported eGFR is based on the CKD-EPI 2020 equation that does not use a race coefficient. Performed By: #### C BCA, PINR, 28763-3, 33320-7, BMP, 3040-3, LIVR, 61047-8, 20336-6 #### [facility] ([id number]) [address] [place] [address] 26644 Glucose [Mass/Vol] 97 mg/dL Normal 65-99 [facility] Comment on above: Performed By: #### C BCA, PINR, 48200-0, 64118-1, BMP, 3040-3, LIVR, 53856-8, 86917-4 #### [facility] ([id number]) [address] [place] [address] 78928 Potassium [Moles/Vol] 4.6 mmol/L Normal 3.5-5.0 [facility] Comment on above: Performed By: #### C BCA, PINR, 57080-3, 72856-9, BMP, 3040-3, LIVR, 01741-3, 67954-2 #### [facility] ([id number]) [address] [place] [address] 60696 Protein [Mass/Vol] 6.9 g/dL Normal 6.0-8.0 [facility] Comment on above: Performed By: #### C BCA, PINR, 35990-9, 31737-0, BMP, 3040-3, LIVR, 68208-6, 30823-1 #### [facility] ([id number]) [address] [place] [address] 82546 Sodium [Moles/Vol] 136 mmol/L Normal 134-146 [facility] Comment on above: Performed By: #### C BCA, PINR, 93354-8, 25267-7, BMP, 3040-3, LIVR, 74364-9, 30552-8 #### [facility] ([id number]) [address] [place] [address] 69402 Urea nitrogen [Mass/Vol] 29 mg/dL High 5-27 [facility] Comment on above: Performed By: #### C BCA, PINR, 41697-0, 40585-2, BMP, 3040-3, LIVR, 95766-3, 40541-5 #### [facility] ([id number]) [address] [place] [address] BRAIN WO CONTon CT BRAIN WO CONT CT BRAIN WO CONT CLINICAL HISTORY: Status post fall, head trauma and pain. TECHNIQUE: Spiral CT of the brain was performed without contrast material. All CT scans at this facility use dose modulation, iterative reconstruction, and/or weight based dosing when appropriate to reduce radiation dose to as low as reasonably achievable. COMPARISONS: 10/25/2023. FINDINGS: The brain appears within normal limits in morphology and attenuation. There is no intracranial mass nor mass effect. Ventricular system appears within normal limits. Basal cisterns and fourth ventricle appear patent. No parenchymal nor extra-axial hemorrhage is identified. Calvarium appears intact. Left-sided ring of C1 is absent possibly on a congenital/developmen christian basis. IMPRESSION: No acute intracranial finding Finalized by Raimundo Larsen MD on 05/18/2024 7:20 AM Normal [facility] CT CERVICAL SPINE WO CONTon 05-18-2024 CT CERVICAL SPINE WO CONT CT CERVICAL SPINE WO CONT History: Fall with neck pain Exam/Technique: Noncontrast CT imaging of the cervical spine with multiplanar reconstructions. Comparison: Noncontrast CT of the cervical spine from 09/16/2020 Findings: There is no evidence of recent fracture or traumatic malalignment. A few millimeters of anterolisthesis of C6 on C7 appears unchanged. AP alignment of cervical vertebrae is normal at other levels. Previous fusion at C4-C5 and minor degenerative spurring in the cervical levels unchanged There is no gross stenosis of the cervical spinal canal of any etiology at any level. No prevertebral soft tissue swelling, or other gross abnormalities are depicted in the paraspinal soft tissues on these noncontrast images. IMPRESSION: No acute bony abnormalities demonstrated.. All CT scans at this facility use dose modulation, iterative reconstruction, and/or weight based dosing when appropriate to reduce radiation dose to as low as reasonably achievable. Finalized by Jomar Horne MD on 05/18/2024 7:30 AM Normal [facility] Troponin I.cardiac High sens itivity method [Mass/Vol]on 05-18-2024 1 HOUR TROP I, HIGH SENSITIVITY 7 ng/L Normal <21 [facility] Comment on above: Performed By: #### C BCA, PINR, 72643-1, 99417-6, BMP, 3040-3, LIVR, 65335-9, 55933-3 #### [facility] ([id number]) [address] [place] [address], [place] [address] TROPONIN I, HIGH SENSITIVITY 7 ng/L Normal <21 [facility] Comment on above: Performed By: #### C BCA, PINR, 69222-2, 60086-1, BMP, 3040-3, LIVR, 96424-2, 63676-8 #### [facility] ([id number]) [address] [place] [address] 89167 URN MACROSCOPIC NURon 2023 BILIRUBIN VAHE Negative Normal NEG [facility] Comment on above: Performed By: #### C BCA, PINR, 99942-4, 72409-9, BMP, 3040-3, LIVR, 84171-3, 40029-0 #### [facility] ([id number]) [address] [place] [address] 96543 BLOOD/HGB VAHE Trace Abnormal NEG [facility] Comment on above: Performed By: #### C BCA, PINR, 34450-4, 86672-1, BMP, 3040-3, LIVR, 62807-9, 67306-0 #### [facility] ([id number]) [address] [place] [address] [place] [address] GLUCOSE VAHE Negative Normal NEG [facility] Comment on above: Performed By: #### C BCA, PINR, 02308-4, 86187-8, BMP, 3040-3, LIVR, 10643-1, 51723-5 #### [facility] ([id number]) [address] [place] [address] [place] [address] KETONES VAHE Negative Normal NEG [facility] Comment on above: Performed By: #### C BCA, PINR, 41845-6, 47382-8, BMP, 3040-3, LIVR, 16814-6, 88280-0 #### [facility] ([id number]) [address] [place] [address] 22898 LEUKOCYTE ESTERASE VAHE Negative Normal NEG [facility] Comment on above: Performed By: #### C BCA, PINR, 42320-6, 69250-0, BMP, 3040-3, LIVR, 02307-5, 68614-6 #### [facility] ([id number]) [address] [place] [address] 71502 NITRITE VAHE Negative Normal NEG [facility] Comment on above: Performed By: #### C BCA, PINR, 70005-8, 68806-8, BMP, 3040-3, LIVR, 94324-2, 58950-2 #### [facility] ([id number]) [address] [place] [address] 70288 PH VAHE 7.0 Normal 5.0-8.5 [facility] Comment on above: Performed By: #### C BCA, PINR, 97441-1, 34772-7, BMP, 3040-3, LIVR, 40306-6, 45509-6 #### [facility] ([id number]) [address] [place] [address] 04368 PROTEIN VAHE Negative Normal NEG [facility] Comment on above: Performed By: #### C BCA, PINR, 40216-6, 85271-7, BMP, 3040-3, LIVR, 35332-4, 62986-1 #### [facility] ([id number]) [address] [place] [address] 17452 SPECIFIC GRAVITY VAHE 1.020 Normal 1.003-1.035 [facility] Comment on above: Performed By: #### C BCA, PINR, 90026-4, 44096-3, BMP, 3040-3, LIVR, 02855-6, 19912-1 #### [facility] ([id number]) [address] [place] [address] 15588 UROBILINOGEN VAHE 0.2 eu/dL Normal <1.1 [facility] Comment on above: Performed By: #### C BCA, PINR, 83110-5, 36201-4, BMP, 3040-3, LIVR, 32054-3, 86358-3 #### [facility] ([id number]) [address] [place] [address] 91157 XR CHEST 1 VWon 05-18-2024 XR CHEST 1 VW XR CHEST 1 VW History: Blunt trauma from fall Exam/Technique: Portable AP chest Comparison: 05/10/2024 Findings: No acute pulmonary or pleural abnormalities displayed. Cardiac and mediastinal contours appear within normal limits on this AP projection. No obvious bone abnormalities are displayed on this single view with chest technique. IMPRESSION: No evidence of acute pulmonary or pleural disease. Finalized by Jomar Horne MD on 05/18/2024 7:31 AM Normal [facility] XR PELVIS 1 OR 2 VWSon 05-18 XR PELVIS 1 OR 2 VWS XR PELVIS 1 OR 2 VWS History: Blunt trauma from fall Exam/Technique: Single AP projection of the pelvis. Portion of the right iliac crest is excluded on this view Comparison: AP pelvis and right hip from 09/17/2020 Findings: Old internally fixed proximal right femoral fracture. Prominent degenerative spurring and apparent mild joint space narrowing in both hips. No recent fractures or other focal bony lesions are displayed in pelvic bones. IMPRESSION: No acute bony abnormalities demonstrated Finalized by Jomar Horne MD on 05/18/2024 7:33 AM Normal [facility] XR CHEST 2 VWSon 05-10-2024 XR CHEST 2 VWS XR CHEST 2 VWS PA and lateral chest: HISTORY: Cough. 2 views the chest are obtained. Lungs are clear. The cardiac and mediastinal contours are within normal limits. There is no pneumothorax, effusion, or vascular congestion. Osseous structures appear intact. IMPRESSION: No acute findings. Finalized by Joey Tejada MD on 05/10/2024 1:22 PM Normal [facility] BASIC METABOLIC PANLon 10-25 Anion gap [Moles/Vol] 5 mmol/L Normal 5-15 [facility] Comment on above: Performed By: #### C BCA, PINR, 67882-3, 13786-6, BMP, 3040-3, LIVR, 69092-3, 45631-0 #### [facility] ([id number]) [address] [place] [address] [place] [address] Calcium [Mass/Vol] 8.3 mg/dL Low 8.5-10.5 [facility] Comment on above: Performed By: #### C BCA, PINR, 81530-3, 00058-2, BMP, 3040-3, LIVR, 54211-8, 13764-0 #### [facility] ([id number]) [address] [place] [address] 15662 Chloride [Moles/Vol] 107 mmol/L Normal 98-109 [facility] Comment on above: Performed By: #### C BCA, PINR, 97372-1, 26170-9, BMP, 3040-3, LIVR, 68430-9, 38586-2 #### [facility] ([id number]) [address] [place] [address] 75941 CO2 [Moles/Vol] 25 mmol/L Normal 22-32 [facility] Comment on above: Performed By: #### C BCA, PINR, 73081-7, 26564-9, BMP, 3040-3, LIVR, 21534-8, 76778-8 #### [facility] ([id number]) [address] [place] [address] 68066 Creatinine [Mass/Vol] 1.42 mg/dL High 0.70-1.20 [facility] Comment on above: Result Comment: METH OD TRACEABLE TO IDMS STANDARD Performed By: #### C BCA, PINR, 36501-6, 21867-7, BMP, 3040-3, LIVR, 32156-7, 39603-0 #### [facility] ([id number]) [address] [place] [address] 54317 GFR/1.73 sq M.predicted among non-blacks MDRD (S/P/Bld) [Vol rate/Area] 51 mL/min/{1.73_m2} Low >59 [facility] Comment on above: Result Comment: Reported eGFR is based on the CKD-EPI 2020 equation that does not use a race coefficient. Performed By: #### C BCA, PINR, 42119-8, 90307-6, BMP, 3040-3, LIVR, 24745-9, 30630-0 #### [facility] ([id number]) [address] [place] [address] 72773 Glucose [Mass/Vol] 90 mg/dL Normal 65-99 [facility] Comment on above: Performed By: #### C BCA, PINR, 97884-9, 22872-6, BMP, 3040-3, LIVR, 33839-5, 03404-6 #### [facility] ([id number]) [address] [place] [address] 24295 Potassium [Moles/Vol] 4.3 mmol/L Normal 3.5-5.0 [facility] Comment on above: Performed By: #### C BCA, PINR, 49291-9, 62645-6, BMP, 3040-3, LIVR, 35286-2, 03159-4 #### [facility] ([id number]) [address] [place] [address] 20000 Sodium [Moles/Vol] 137 mmol/L Normal 134-146 [facility] Comment on above: Performed By: #### C BCA, PINR, 47624-7, 57418-4, BMP, 3040-3, LIVR, 39850-5, 00448-5 #### [facility] ([id number]) [address] [place] [address] 31097 Urea nitrogen [Mass/Vol] 17 mg/dL Normal 5-27 [facility] Comment on above: Performed By: #### C BCA, PINR, 63732-5, 97789-2, BMP, 3040-3, LIVR, 53949-4, 92159-9 #### [facility] ([id number]) [address] [place] [address] 77940 CBC AND AUTO DIFFon 10-25-19 24 ABSOLUTE BASOPHIL 0.1 X10E9/L Normal 0.0-0.2 [facility] Comment on above: Performed By: #### C BCA, PINR, 20730-9, 21649-2, BMP, 3040-3, LIVR, 65225-6, 48809-8 #### [facility] ([id number]) [address] [place] [address] 43314 ABSOLUTE NEUTROPHIL 3.1 X10E9/L Normal 1.5-6.6 [facility] Comment on above: Performed By: #### C BCA, PINR, 47076-3, 64616-3, BMP, 3040-3, LIVR, 43389-5, 67945-6 #### [facility] ([id number]) [address] [place] [address] 43025 Basophils/100 WBC (Bld) 1.0 % Normal [facility] Comment on above: Performed By: #### C BCA, PINR, 49304-5, 62673-3, BMP, 3040-3, LIVR, 87621-1, 69056-1 #### [facility] ([id number]) [address] [place] [address] 29586 Eosinophils (Bld) [#/Vol] 0.1 10*3/uL Normal 0.0-0.4 [facility] Comment on above: Performed By: #### C BCA, PINR, 74528-6, 13903-9, BMP, 3040-3, LIVR, 60392-8, 45475-0 #### [facility] ([id number]) [address] [place] [address] 77555 Eosinophils/100 WBC (Bld) 1.8 % Normal [facility] Comment on above: Performed By: #### C BCA, PINR, 24454-2, 37381-8, BMP, 3040-3, LIVR, 44843-0, 35716-0 #### [facility] ([id number]) [address] [place] [address] 53916 Erythrocyte distribution width (RBC) [Ratio] 14.8 % Normal 11.5-15.0 [facility] Comment on above: Performed By: #### C BCA, PINR, 95618-5, 66102-0, BMP, 3040-3, LIVR, 37420-0, 76102-7 #### [facility] ([id number]) [address] [place] [address] 37647 Hematocrit (Bld) [Volume fraction] 37.8 % Low 39-49 [facility] Comment on above: Performed By: #### C BCA, PINR, 50682-4, 21180-3, BMP, 3040-3, LIVR, 04185-0, 52416-4 #### [facility] ([id number]) [address] [place] [address] 04226 Hemoglobin (Bld) [Mass/Vol] 12.8 g/dL Low 13.0-17.0 [facility] Comment on above: Performed By: #### C BCA, PINR, 55472-2, 25526-2, BMP, 3040-3, LIVR, 85618-0, 18731-9 #### [facility] ([id number]) [address] [place] [address] 59085 Lymphocytes (Bld) [#/Vol] 1.6 10*3/uL Normal 1.0-3.5 [facility] Comment on above: Performed By: #### C BCA, PINR, 88379-6, 20132-9, BMP, 3040-3, LIVR, 97957-4, 13014-0 #### [facility] ([id number]) [address] [place] [address] 95743 Lymphocytes/100 WBC (Bld) 31.2 % Normal [facility] Comment on above: Performed By: #### C BCA, PINR, 18463-6, 69631-1, BMP, 3040-3, LIVR, 06381-7, 69047-0 #### [facility] ([id number]) [address] [place] [address] 64004 MCH (RBC) [Entitic mass] 29.7 pg Normal 27-34 [facility] Comment on above: Performed By: #### C BCA, PINR, 07917-0, 09341-0, BMP, 3040-3, LIVR, 37681-5, 28177-3 #### [facility] ([id number]) [address] [place] [address] 10829 MCHC (RBC) [Mass/Vol] 33.9 g/dL Normal 32-36 [facility] Comment on above: Performed By: #### C BCA, PINR, 82496-8, 39896-8, BMP, 3040-3, LIVR, 98108-6, 36655-6 #### [facility] ([id number]) [address] [place] [address] 12852 MCV (RBC) [Entitic vol] 88 fL Normal 80-100 [facility] Comment on above: Performed By: #### C BCA, PINR, 47290-5, 88872-2, BMP, 3040-3, LIVR, 06686-5, 89464-7 #### [facility] ([id number]) [address] [place] [address] 43168 Monocytes (Bld) [#/Vol] 0.4 10*3/uL Normal 0-0.9 [facility] Comment on above: Performed By: #### C BCA, PINR, 92193-0, 88699-7, BMP, 3040-3, LIVR, 13983-9, 48508-4 #### [facility] ([id number]) [address] [place] [address] 01196 Monocytes/100 WBC (Bld) 6.8 % Normal [facility] Comment on above: Performed By: #### C BCA, PINR, 65323-7, 48666-3, BMP, 3040-3, LIVR, 42220-5, 44248-3 #### [facility] ([id number]) [address] [place] [address] 30023 Neutrophils/100 WBC (Bld) 59.2 % Normal [facility] Comment on above: Performed By: #### C BCA, PINR, 07907-0, 97636-4, BMP, 3040-3, LIVR, 94797-4, 94492-7 #### [facility] ([id number]) [address] [place] [address] 62518 Platelet mean volume (Bld) [Entitic vol] 7.6 fL Normal 7-12 [facility] Comment on above: Performed By: #### C BCA, PINR, 64071-2, 48012-7, BMP, 3040-3, LIVR, 76504-4, 62976-7 #### [facility] ([id number]) [address] [place] [address] 27963 Platelets (Bld) [#/Vol] 146 10*3/uL Low 150-450 [facility] Comment on above: Performed By: #### C BCA, PINR, 38961-3, 89286-9, BMP, 3040-3, LIVR, 02686-7, 58465-7 #### [facility] ([id number]) [address] [place] [address] 78119 RBC COUNT 4.31 X10E12/L Normal 4.10-5.70 [facility] Comment on above: Performed By: #### C BCA, PINR, 26620-6, 60498-4, BMP, 3040-3, LIVR, 80882-6, 29980-3 #### [facility] ([id number]) [address] [place] [address] 17931 WBC (Bld) [#/Vol] 5.2 10*3/uL Normal 4.0-11.0 [facility] Comment on above: Performed By: #### C BCA, PINR, 59974-7, 55927-9, BMP, 3040-3, LIVR, 23141-0, 49319-5 #### [facility] ([id number]) [address] [place] [address], [place] [address] CT ABDOMEN AND PELVIS W CONT on 10-25-2023 CT ABDOMEN AND PELVIS W CONT CT ABDOMEN AND PELVIS W CONT CLINICAL INFORMATION: Epigastric pain TECHNIQUE: CT ABDOMEN AND PELVIS W CONT CT images of the abdomen and pelvis are obtained. Intravenous contrast was administered. Comparison is made Exam dated 09/01/2022. Limited images the lung bases are clear no hepatic or splenic abnormality is seen. No gastric distention. Incidental duodenal diverticulum noted. There are colonic diverticula without wall thickening or inflammatory stranding. The abdominal aorta is normal in caliber and contour. The appendix appears unremarkable. Small bowel is nondistended without evidence of obstruction. No CT evidence of gallstones or biliary dilatation. IMPRESSION: No acute abdominal findings. All CT scans at this facility use dose modulation, iterative reconstruction, and/or weight based dosing when appropriate to reduce radiation dose to as low as reasonably achievable. Finalized by Joey Tejada MD on 10/25/2023 2:27 PM Normal [facility] CT BRAIN WO CONTon CT BRAIN WO CONT CT BRAIN WO CONT CLINICAL INFORMATION: Mental status change, unknown cause. COMPARISON: 09/16/20. PROCEDURE: Routine CT Head obtained without contrast. All CT scans at this facility use dose modulation, iterative reconstruction, and/or weight based dosing when appropriate to reduce radiation dose to as low as reasonably achievable. FINDINGS: Image quality degraded by presence of intravenous contrast which limits assessment. BRAIN PARENCHYMA: No intracranial hemorrhage. No mass, mass effect, or midline shift. No extra-axial fluid collections. Low-attenuation areas in the periventricular white matter likely representing chronic microvascular ischemia. VENTRICULAR SYSTEM: No hydrocephalus. CALVARIUM/SINUSES: No depressed calvarial fracture. No significant sinus abnormalities. IMPRESSION: * No acute intracranial findings by CT. Finalized by Lance Gonzáles MD on 10/25/2023 3:50 PM Normal [facility] LIPASEon 10-25-2023 Lipase [Catalytic activity/Vol] 24 U/L Normal 17-40 [facility] Comment on above: Performed By: #### C BCA, PINR, 72677-6, 66634-1, BMP, 3040-3, LIVR, 49559-5, 26553-4 #### [facility] ([id number]) [address] [place] [address] 74860 LIVER PANELon 10-25-2023 Albumin [Mass/Vol] 4.1 g/dL Normal 3.2-5.3 [facility] Comment on above: Performed By: #### C BCA, PINR, 48131-6, 16580-1, BMP, 3040-3, LIVR, 37567-8, 46523-3 #### [facility] ([id number]) [address] [place] [address] [place] [address] ALP [Catalytic activity/Vol] 75 U/L Normal 39-130 [facility] Comment on above: Performed By: #### C BCA, PINR, 65588-6, 52064-2, BMP, 3040-3, LIVR, 44573-8, 58379-3 #### [facility] ([id number]) [address] [place] [address] 61888 ALT [Catalytic activity/Vol] 20 U/L Normal 0-40 [facility] Comment on above: Performed By: #### C BCA, PINR, 49163-5, 58702-4, BMP, 3040-3, LIVR, 77932-7, 02480-5 #### [facility] ([id number]) [address] [place] [address] [place] [address] AST [Catalytic activity/Vol] 23 U/L Normal 0-41 [facility] Comment on above: Performed By: #### C BCA, PINR, 83566-5, 71125-4, BMP, 3040-3, LIVR, 93541-4, 08271-5 #### [facility] ([id number]) [address] [place] [address] 83701 Bilirubin [Mass/Vol] 1.1 mg/dL Normal 0.3-1.2 [facility] Comment on above: Performed By: #### C BCA, PINR, 89297-1, 58879-0, BMP, 3040-3, LIVR, 19968-1, 98887-3 #### [facility] ([id number]) [address] [place] [address] 97248 Bilirubin.direct [Mass/Vol] 0.2 mg/dL Normal 0.0-0.4 [facility] Comment on above: Performed By: #### C BCA, PINR, 54367-6, 77528-3, BMP, 3040-3, LIVR, 55468-3, 40359-8 #### [facility] ([id number]) [address] [place] [address] 22419 Protein [Mass/Vol] 6.5 g/dL Normal 6.0-8.0 [facility] Comment on above: Performed By: #### C BCA, PINR, 14546-6, 86815-6, BMP, 3040-3, LIVR, 55306-9, 56665-0 #### [facility] ([id number]) [address] [place] [address] 20890 Lactate (P scotty) [Moles/Vol]o n 10-25-2023 LACTATE W/REFLEX 0.6 mmol/L Normal 0.4-2.0 [facility] Comment on above: Result Comment: Result did not trigger repeat Lactate, re-order if needed. Performed By: #### C BCA, PINR, 34769-4, 87195-7, BMP, 3040-3, LIVR, 93261-8, 58635-1 #### [facility] ([id number]) [address] [place] [address] [place] [address] MAGNESIUMon 10-25-2023 Magnesium [Mass/Vol] 1.9 mg/dL Normal 1.8-2.6 [facility] Comment on above: Performed By: #### C BCA, PINR, 30085-1, 68820-6, BMP, 3040-3, LIVR, 87098-3, 98380-2 #### [facility] ([id number]) [address] [place] [address] 93002 PROTIME AND INRon 10-25-2023 INR Coag (PPP) [Relative time] 1.1 {INR} Normal 0.8-1.1 [facility] Comment on above: Performed By: #### C BCA, PINR, 44344-9, 81973-0, BMP, 3040-3, LIVR, 01012-7, 50141-3 #### [facility] ([id number]) [address] [place] [address] 68324 PT Coag (PPP) [Time] 12.5 s Normal 9.8-13.2 [facility] Comment on above: Result Comment: NEW REFERENCE RANGE Performed By: #### C BCA, PINR, 27236-1, 56490-7, BMP, 3040-3, LIVR, 10986-0, 79791-2 #### [facility] ([id number]) [address] [place] [address] 86064 TROPONIN Ion 10-25-2023 Troponin I.cardiac [Mass/Vol] ng/mL Normal 0.00-0.04 [facility] Comment on above: Performed By: #### C BCA, PINR, 52230-2, 23922-7, BMP, 3040-3, LIVR, 04322-4, 32072-7 #### [facility] ([id number]) [address] [place] [id number] URINE CULTUREon 10-25-2023 Bacteria identified Cx Nom (U) CULTURE RESULTS <10,000 ORGANISMS/ML NORMAL URO GENITAL TERESA Normal [facility] Comment on above: Performed By: #### C BCA, PINR, 78606-5, 78435-1, BMP, 3040-3, LIVR, 85128-5, 35573-6 #### [facility] ([id number]) [address] [place] [address] [id number] XR CHEST 1 VWon 10-25-2023 XR CHEST 1 VW XR CHEST 1 VW XR CHEST 1 VW IMPRESSION: cough/weakness. Comparison 06/20/21. No acute cardiopulmonary disease. Low lung volumes with mild elevation of the right hemidiaphragm. Finalized by Lance Gonzáles MD on 10/25/2023 3:43 PM Normal [facility] aPTT Coag (PPP) [Time]on aPTT Coag (Bld) [Time] 31 s Normal 26-37 [facility] Comment on above: Result Comment: NEW REFERENCE RANGE Performed By: #### C BCA, PINR, 38543-7, 98557-6, BMP, 3040-3, LIVR, 67445-8, 47215-3 #### [facility] ([id number]) [address] [place] [address] [id number] XR FEMUR 2+ VW RIGHTon 07-13 XR FEMUR 2+ VW RIGHT EXAMINATION: XR FEMUR 2+ VW RIGHT HISTORY: Thigh pain. History of open reduction internal fixation of the right femur. COMPARISON: None available TECHNIQUE: AP and lateral views of the right femur FINDINGS: Postsurgical changes of open reduction internal fixation of the right femur with metallic plate and screws that traverse the femoral neck and head as well as the mid diaphysis. No definitive periprosthetic abnormality identified. Hardware appears intact. No acute fracture. Chronic fracture deformity of the proximal diaphysis of the right femur. Moderate degenerative changes of the right hip. Soft tissues appear within normal limits. IMPRESSION: No acute osseous abnormality. ELECTRONICALLY SIGNED BY: Raimundo Ngo, DO Normal Not Available XR Foot Complete Left*on XR Foot Complete Left* FINDINGS: Mild hallux valgus. Mild 1st MTP, interphalangeal joint space loss. Small plantar calcaneal spur. Posterior calcaneal sclerosis can be consistent with stress fracture if clinically suspect. IMPRESSION: 1. Posterior calcaneal findings can be consistent with stress fracture if clinically suspect. Report reported and signed by Vu Moore on 05/13/2022 1312 Normal [facility] C-Reactive Proteinon 022 CRP IV 0.8 mg/dl Normal <5.0 [facility] Comment on above: Performed By: #### C MP, CRP, FT4, LIPD, FT3, ESR, TSH, CBC #### [facility] [address], [place] [id number] Complete Blood Counton 11-10 Erythrocyte distribution width (RBC) [Ratio] 13.9 % Normal 11.0-15.0 [facility] Comment on above: Performed By: #### C MP, CRP, FT4, LIPD, FT3, ESR, TSH, CBC #### [facility] [address], [place] [id number] Hematocrit (Bld) [Volume fraction] 48.5 % Normal 38.5-50.0 [facility] Comment on above: Performed By: #### C MP, CRP, FT4, LIPD, FT3, ESR, TSH, CBC #### [facility] [address], [place] [id number] Hemoglobin (Bld) [Mass/Vol] 15.1 g/dL Normal 13.0-17.1 [facility] Comment on above: Performed By: #### C MP, CRP, FT4, LIPD, FT3, ESR, TSH, CBC #### [facility] [address], [place] [id number] MCH (RBC) [Entitic mass] 28.6 pg Normal 27.0-33.0 [facility] Comment on above: Performed By: #### C MP, CRP, FT4, LIPD, FT3, ESR, TSH, CBC #### [facility] [address], [place] [id number] MCHC (RBC) [Mass/Vol] 31.1 g/dL Low 32.0-36.0 [facility] Comment on above: Performed By: #### C MP, CRP, FT4, LIPD, FT3, ESR, TSH, CBC #### [facility] [address], [place] [id number] MCV (RBC) [Entitic vol] 92 fL Normal 80-100 [facility] Comment on above: Performed By: #### C MP, CRP, FT4, LIPD, FT3, ESR, TSH, CBC #### [facility] [address], [place] [id number] Platelet mean volume (Bld) [Entitic vol] 9.10 fL Normal 7.50-12.50 [facility] Comment on above: Performed By: #### C MP, CRP, FT4, LIPD, FT3, ESR, TSH, CBC #### [facility] [address], [place] [id number] Platelets (Bld) [#/Vol] 151 10*3/uL Normal 140-400 [facility] Comment on above: Performed By: #### C MP, CRP, FT4, LIPD, FT3, ESR, TSH, CBC #### [facility] [address], [place] [id number] RBC (Bld) [#/Vol] 5.28 10*6/uL Normal 4.20-5.80 [facility] Comment on above: Performed By: #### C MP, CRP, FT4, LIPD, FT3, ESR, TSH, CBC #### [facility] [address], [place] [id number] RDW-SD 46.7 fL Normal 37.0-50.0 [facility] Comment on above: Performed By: #### C MP, CRP, FT4, LIPD, FT3, ESR, TSH, CBC #### [facility] [address], [place] [id number] WBC (Bld) [#/Vol] 10.2 10*3/uL Normal 3.8-11.0 [facility] Comment on above: Performed By: #### C MP, CRP, FT4, LIPD, FT3, ESR, TSH, CBC #### [facility] [address], [place] [id number] Comprehensive Metabolic Pane reji 02-28-2022 Albumin [Mass/Vol] 4.1 g/dL Normal 3.6-5.1 [facility] Comment on above: Performed By: #### C MP, CRP, FT4, LIPD, FT3, ESR, TSH, CBC #### [facility] [address], [place] [id number] Albumin/Globulin [Mass ratio] 1.6 {ratio} Normal 1.0-2.5 [facility] Comment on above: Performed By: #### C MP, CRP, FT4, LIPD, FT3, ESR, TSH, CBC #### [facility] [address], [place] [id number] ALP [Catalytic activity/Vol] 98 U/L Normal 40-129 [facility] Comment on above: Performed By: #### C MP, CRP, FT4, LIPD, FT3, ESR, TSH, CBC #### [facility] [address], [place] [id number] ALT [Catalytic activity/Vol] 36 U/L Normal 9-46 [facility] Comment on above: Result Comment: 08/13 Female reference range changed. Performed By: #### C MP, CRP, FT4, LIPD, FT3, ESR, TSH, CBC #### [facility] [address], [place] [id number] Anion gap [Moles/Vol] 16 mmol/L Normal 12-20 [facility] Comment on above: Result Comment: Effe ctive 09/18/2019 reference range changed. Performed By: #### C MP, CRP, FT4, LIPD, FT3, ESR, TSH, CBC #### [facility] [address], [place] [id number] AST [Catalytic activity/Vol] 19 U/L Normal 10-40 [facility] Comment on above: Performed By: #### C MP, CRP, FT4, LIPD, FT3, ESR, TSH, CBC #### [facility] [address], [place] [id number] Bilirubin [Mass/Vol] 0.65 mg/dL Normal 0.30-1.20 [facility] Comment on above: Performed By: #### C MP, CRP, FT4, LIPD, FT3, ESR, TSH, CBC #### [facility] [address], [place] [id number] BUN/CREA 13 Ratio Normal 6-22 [facility] Comment on above: Performed By: #### C MP, CRP, FT4, LIPD, FT3, ESR, TSH, CBC #### [facility] [address], [place] [id number] Calcium [Mass/Vol] 8.5 mg/dL Low 8.6-10.2 [facility] Comment on above: Performed By: #### C MP, CRP, FT4, LIPD, FT3, ESR, TSH, CBC #### [facility] [address], [place] [id number] Chloride [Moles/Vol] 107 mmol/L Normal 98-107 [facility] Comment on above: Performed By: #### C MP, CRP, FT4, LIPD, FT3, ESR, TSH, CBC #### [facility] [address], [place] [id number] CO2 [Moles/Vol] 25 mmol/L Normal 20-31 [facility] Comment on above: Performed By: #### C MP, CRP, FT4, LIPD, FT3, ESR, TSH, CBC #### [facility] [address], [place] [id number] Creatinine [Mass/Vol] 1.6 mg/dL High 0.7-1.4 [facility] Comment on above: Performed By: #### C MP, CRP, FT4, LIPD, FT3, ESR, TSH, CBC #### [facility] [address], [place] [id number] eGFRAA 53 mL/min/1.73m2 Low >60 [facility] Comment on above: Performed By: #### C MP, CRP, FT4, LIPD, FT3, ESR, TSH, CBC #### [facility] [address], [place] [id number] eGFRNAA 44 mL/min/1.73m2 Low >60 [facility] Comment on above: Performed By: #### C MP, CRP, FT4, LIPD, FT3, ESR, TSH, CBC #### [facility] [address], [place] [id number] Globulin (S) [Mass/Vol] 2.5 g/dL Normal 1.9-3.7 [facility] Comment on above: Performed By: #### C MP, CRP, FT4, LIPD, FT3, ESR, TSH, CBC #### [facility] [address], [place] [id number] Glucose [Mass/Vol] 88 mg/dL Normal 65-99 [facility] Comment on above: Result Comment: For FASTING Glucose --- ADA reference ranges: Normal 65-99 mg/dl Prediabetes 100-125 Diabetes >/= 126 Performed By: #### C MP, CRP, FT4, LIPD, FT3, ESR, TSH, CBC #### [facility] [address], [place] [id number] Potassium [Moles/Vol] 5.2 mmol/L Normal 3.5-5.5 [facility] Comment on above: Performed By: #### C MP, CRP, FT4, LIPD, FT3, ESR, TSH, CBC #### [facility] [address], [place] [id number] Protein [Mass/Vol] 6.6 g/dL Normal 6.1-8.1 [facility] Comment on above: Performed By: #### C MP, CRP, FT4, LIPD, FT3, ESR, TSH, CBC #### [facility] [address], [place] [id number] Sodium [Moles/Vol] 143 mmol/L Normal 135-146 [facility] Comment on above: Performed By: #### C MP, CRP, FT4, LIPD, FT3, ESR, TSH, CBC #### [facility] [address], [place] [id number] Urea nitrogen [Mass/Vol] 20 mg/dL Normal 7-25 [facility] Comment on above: Performed By: #### C MP, CRP, FT4, LIPD, FT3, ESR, TSH, CBC #### [facility] [address], [place] [id number] Free T3on 11-10-2021 FT3 2.63 pg/mL Normal 2.00-4.40 [facility] Comment on above: Performed By: #### C MP, CRP, FT4, LIPD, FT3, ESR, TSH, CBC #### [facility] [address], [place] [id number] Free T4on 11-10-2021 Free T4 [Mass/Vol] 1.00 ng/dL Normal 0.80-1.80 [facility] Comment on above: Performed By: #### C MP, CRP, FT4, LIPD, FT3, ESR, TSH, CBC #### [facility] [address], [place] [id number] Lipid Panelon 11-10-2021 Cholesterol [Mass/Vol] 147 mg/dL Normal 125-200 [facility] Comment on above: Result Comment: Low risk < 200mg/dL Borderline risk 201-239 mg/dl High risk > or equal to 240 Performed By: #### C MP, CRP, FT4, LIPD, FT3, ESR, TSH, CBC #### [facility] [address], [place] [id number] Cholesterol in HDL [Mass/Vol] 71 mg/dL Normal >40 [facility] Comment on above: Result Comment: High Cardiovascular Risk HDL <40 mg/dL Low Cardiovascular Risk HDL > or equal to 60 mg/dl Performed By: #### C MP, CRP, FT4, LIPD, FT3, ESR, TSH, CBC #### [facility] [address], [place] [id number] Cholesterol in LDL [Mass/Vol] 58 mg/dL Normal [facility] Comment on above: Result Comment: LDL ATP III CLASSIFICATION LDL less than 100 mg/dl Optimal LDL 100-129 mg/dl Near or above optimal LDL 130-159 Borderline high LDL 160-189 High LDL greater than 189 mg/dl Very High Performed By: #### C MP, CRP, FT4, LIPD, FT3, ESR, TSH, CBC #### [facility] [address], [place] [id number] Cholesterol in VLDL [Mass/Vol] 18 mg/dL Normal [facility] Comment on above: Performed By: #### C MP, CRP, FT4, LIPD, FT3, ESR, TSH, CBC #### [facility] [address], [place] [id number] Cholesterol.total/C holesterol in HDL [Mass ratio] 2 {ratio} Normal [facility] Comment on above: Performed By: #### C MP, CRP, FT4, LIPD, FT3, ESR, TSH, CBC #### [facility] [address], [place] [id number] Triglyceride [Mass/Vol] 89 mg/dL Normal 30-150 [facility] Comment on above: Result Comment: TRIG ATPIII CLASSIFICATIONS TRIG less than 150 mg/dl Normal TRIG 150-199 mg/dl Borderline High TRIG 200-500 mg/dl High TRIG greather than 500 mg/dl Very High Performed By: #### C MP, CRP, FT4, LIPD, FT3, ESR, TSH, CBC #### [facility] [address], [place] [id number] PSA SCREEN (MEDICARE)on 10-15 TPSA 0.731 ng/mL Normal <4.000 [facility] Comment on above: Result Comment: PSA Test Method: ECLIA/Alicia e 601 Performed By: #### P #### [facility] [address], [place] [id number] RBC Sedimentation Rateon ESR (Bld) [Velocity] 57.00 mm/h High 0.00-20.00 [facility] Comment on above: Performed By: #### C MP, CRP, FT4, LIPD, FT3, ESR, TSH, CBC #### [facility] [address], [place] [id number] TSHon 11-10-2021 TSH 2.990 uIU/mL Normal 0.400-4.500 [facility] Comment on above: Performed By: #### C MP, CRP, FT4, LIPD, FT3, ESR, TSH, CBC #### [facility] [address], [place] [id number] Uric Acidon 10-20-2021 URIC 8.5 mg/dL High 4.0-8.0 [facility] Comment on above: Result Comment: Refrosana velarde range change 07/30/2017. Prior reference range F 2.4-5.7mg/dL. M 3.4-7.0 mg/dL. Performed By: #### U BOSSMAN #### [facility] [address] [place], [place] [id number] XR pre/post mri xrayon 08-01 XR pre/post mri xray [facility] [place] [address] [place] [id number] MRI Report Signed Patient: Hakeem Ring MR#: [id number] : 1945 Acct:[id number] Age/Sex: 75 / M ADM Date: 08/01/21 Loc: [facility] Room: Type: [facility] Attending Dr: Petrona Boyer [employer]NER Ordering Provider: Petrona Boyer NP Date of Service: 08/01/21 MR/MR lumbar spine wo con: M51.26 ([id number]) XR/XR pre/post mri xray: M51.26 Copies to: Petrona Boyer NP MR lumbar spine wo con, XR pre/post mri xray 08/01/2021 2:36 PM SIGNS AND SYMPTOMS: Low back pain radiating down right leg PROTOCOL: Frontal and lateral graphs of the lumbar spine. Multiplanar multisequence MR images of the lumbar spine were obtained without IV contrast. COMPARISON: None. FINDINGS: Radiographs of the lumbar spine: There is mild disc height loss throughout with anterior osteophyte formation. There is facet hypertrophy which is reduced at L2-L3. There is no fracture or subluxation. There is preservation of vertebral body heights. Degenerative changes are noted in the sacroiliac joints and hips. Postoperative changes in the right hip. MRI lumbar spine: The bones of the lumbar spine are in anatomic alignment. There is preservation of vertebral body heights. Disc height loss is as noted above. The marrow signal is within normal limits. The conus terminates at the level. No epidural or paraspinous fluid collection is appreciated. Parapelvic cysts are noted in the renal collecting systems. At T12-L1: There is a normal disc, central canal, and neural foramen. At L1-L2: There is a broad-based disc bulge with facet hypertrophy contributing to mild spinal canal stenosis and mild bilateral neural foraminal narrowing. At L2-L3: There is a broad-based disc bulge with facet and ligament flavum degenerative change contributing to moderate narrowing of the spinal canal with mild right neural foraminal narrowing. At L3-L4: There is a broad-based disc bulge with facet and ligament flavum degenerative change contributing to mild spinal canal stenosis with mild to moderate bilateral neural foraminal narrowing. At L4-L5: There is a broad-based disc bulge with facet and ligament flavum degenerative change. There is a focal right foraminal disc protrusion. There is mild spinal canal stenosis with moderate bilateral neural foraminal narrowing. This is slightly greater on the right greater than left. At L5-S1: There is a broad-based disc bulge with facet hypertrophy. There is no significant spinal canal stenosis. There is mild bilateral neural foraminal narrowing. MR/MR lumbar spine wo con IMPRESSION: At L4-L5: There is a broad-based disc bulge with facet and ligament flavum degenerative change. There is a focal right foraminal disc protrusion. There is mild spinal canal stenosis with moderate bilateral neural foraminal narrowing. This is slightly greater on the right greater than left. Lesser degrees of spinal canal and neural foraminal narrowing noted, as above. Impression dictated by: Kirk Santiago M.D.08/01/2021 5:06 PM Dictation Location: [place] [address] Transcribed By: [facility] 08/01/21 1706 Dictated By: Kirk Santiago II, MD 08/01/21 2337 Signed By: 08/01/21 170 [facility] Vital Signs Date Time Vital Sign Value Performing Clinician Sherryi rojelio 12-09-2023 08:38-0400 Body height 167.6 cm Gume Son MD Work Phone: [facility] 12-09-2023 08:38-0400 Body mass index (BMI) [Ratio] 29.86 kg/m2 Gume Son MD Work Phone: [facility] 12-09-2023 08:38-0400 Body weight 83.92 kg Gume Son MD Work Phone: [facility] 12-09-2023 08:38-0400 Diastolic blood pressure 70 mm[Hg] Gume Son MD Work Phone: [facility] 12-09-2023 08:38-0400 Heart rate 63 /min Gume Son MD Work Phone: [facility] 12-09-2023 08:38-0400 SaO2% (BldA) [Mass fraction] 95 % Gume Son MD Work Phone: [facility] 12-09-2023 08:38-0400 Systolic blood pressure 110 mm[Hg] Gume Son MD Work Phone: [facility] 10-27-2023 08:49-0500 Body height 167.6 cm Mono Knowles MD Work Phone: [facility] 10-27-2023 08:49-0500 Body mass index (BMI) [Ratio] 29.7 kg/m2 Mono Knowles MD Work Phone: [facility] 10-27-2023 08:49-0500 Body weight 83.46 kg Mono Knowles MD Work Phone: [facility] 10-27-2023 08:49-0500 Diastolic blood pressure 66 mm[Hg] Mono Knowles MD Work Phone: [facility] 10-27-2023 08:49-0500 Heart rate 56 /min Mono Knowles MD Work Phone: [facility] 10-27-2023 08:49-0500 SaO2% (BldA) [Mass fraction] 97 % Mono Knowles MD Work Phone: [facility] 10-27-2023 08:49-0500 Systolic blood pressure 108 mm[Hg] Mono Knowles MD Work Phone: [facility] Healthcare Encounters Encounter Date Encounter Type Care Provider Facility Start: 05-24-2024 End: 05-24-2024 ambulatory VERONICA THORNTON Not Available Start: 05-18-2024 End: 05-19-2024 Emergency department patient visit JOMAR SCHWARTZ [facility] Start: 05-10-2024 End: 05-10-2024 ambulatory MONO KNOWLES [facility] Start: 05-10-2024 End: 05-10-2024 ambulatory MONO KNOWLES Not Available Start: 04-05-2024 End: 04-05-2024 ambulatory MONO KNOWLES Not Available Start: 01-03-2024 End: 01-03-2024 ambulatory MONO KNOWLES Not Available Start: 12-09-2023 End: 12-09-2023 Office outpatient visit 15 minutes Racheal Chi MD Work Phone: [facility] Comment on above: Benign essential hyp ertension (Primary Dx); 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 Start: 12-09-2023 End: 12-09-2023 ambulatory GUME Cooney MARIAELENA [facility] Start: 12-08-2023 Telephone encounter [facility] Start: 11-16-2023 Telephone encounter Quynh Bustillo [facility] Start: 11-01-2023 Telephone encounter Magalie Mcdaniel [facility] Start: 10-28-2023 Refill Christin Bazzi [facility] Comment on above: Med Refill Start: 10-27-2023 [employer] Mono turner MD Work Phone: [facility] Start: 10-27-2023 Bamboo flowsheet Mono turner MD Work Phone: [facility] Start: 10-27-2023 End: 10-27-2023 Patient encounter status Mono Knowles MD Work Phone: [facility] Work Phone: Start: 10-27-2023 End: 10-27-2023 Periodic preventive med est patient 65yrs& older Mono Knowles MD Work Phone: [facility] Comment on above: Wellness examination (Primary Dx); 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 (CMS/HCC); Stented coronary artery; Benign essential hypertension (CMS/HCC); Gastroesophageal reflux disease with esophagitis without hemorrhage; Hiatal hernia; Diverticulosis; Diverticulosis of colon; Irritable bowel syndrome with constipation; Cervical spondylosis without myelopathy; Osteoarthritis of cervical spine, unspecified spinal osteoarthritis complication status; Lumbar herniated disc; Obesity (BMI 30-39.9); Idiopathic chronic gout without tophus, unspecified site; Mixed hyperlipidemia (CMS/HCC); Cervical stenosis of spinal canal; Right lumbar radiculopathy Start: 10-27-2023 End: 10-27-2023 ambulatory MONO KNOWLES Not Available Start: 10-25-2023 End: 10-26-2023 Emergency department patient visit [facility] Start: 10-25-2023 End: 10-26-2023 Emergency department patient visit [facility] Start: 10-25-2023 End: 10-25-2023 Emergency department patient visit MONO KNOWLES [facility] Start: 10-25-2023 End: 10-26-2023 Emergency department patient visit [facility] Start: 07-26-2023 End: 07-26-2023 ambulatory MONO KNOWLES Not Available Start: 02-04-[address] MONO KNOWLES Facilit y:H1 Procedures Date Procedure Procedure Detail Performing Clinician Start: 12-09-2023 Follow-up visit Follow-up GUME SON Start: 10-19-2022 Colonoscopy Christin Bazzi RN Plan of Treatment Date Care Activity Detail Author Start: 10-19-2025 Screening for malign ant neoplasm of colon Colonoscopy [facility] Start: 12-08-2024 Adult BMI Screening Adult BMI Screen ing [facility] Start: 12-08-2024 Tobacco Screening Tobacco Screening [facility] Start: 10-27-2024 Medicare Annual Wellness (AWV) Medicare Annual Wellness (AWV) [facility] Start: 10-25-2024 Tobacco Screening Tobacco Screening [facility] Start: 02-04-2024 Medicare Annual Wellness (AWV) Medicare Annual Wellness (AWV) [facility] Start: 01-03-2024 End: 01-03-2024 Patient encounter procedure 01/03/2024 9:30 AM EDT Office Visit [facility] [address] [facility] [address] [place] [address] Mono Knowles MD [address] [place] [address] [facility] Start: 12-09-2023 End: 12-09-2023 Patient encounter procedure 12/09/2023 8:30 AM EDT Office Visit [facility] [address] [place] [address] Racheal Chi MD [address] [facility] [place] [address] Gume Son MD [address] [facility] [place] [address] [facility] Start: 11-26-2023 End: 11-26-2023 Patient encounter procedure 11/26/2023 11:15 AM EDT Office Visit [facility] [address] [place] [address] Racheal Chi MD [address] [facility] [place] [address] [facility] Start: 11-17-2023 End: 11-17-2023 Patient encounter procedure 11/17/2023 11:15 AM EST Office Visit [facility] [address] [place] [address] Racheal Chi MD [address] [facility] [place] [address] Priyanka Carbajal MD [address] [place] [address] [facility] Start: 10-27-2023 End: 10-27-2024 Comprehensive metabolic 2000 panel - Serum or Plasma Comprehensive metabolic panel Lab Routine Wellness examination 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 (CMS/HCC) Expected: 10/27/2023 (Approximate), Expires: 10/27/2024 [facility] Comment on above: Expected: 10/27/2023 (Approximate), Expires: 10/27/2024 Start: 10-27-2023 End: 10-27-2024 Lipid 1996 panel - Serum or Plasma Lipid panel Lab Routine Wellness examination 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 (CMS/HCC) Expected: 10/27/2023 (Approximate), Expires: 10/27/2024 [facility] Comment on above: Expected: 10/27/2023 (Approximate), Expires: 10/27/2024 Start: 10-27-2023 End: 10-27-2024 TSH W/REFLEX TO FT4 TSH W/REFLEX TO FT4 Lab Routine Wellness examination 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 (CMS/HCC) Expected: 10/27/2023 (Approximate), Expires: 10/27/2024 [facility] Comment on above: Expected: 10/27/2023 (Approximate), Expires: 10/27/2024 Start: 10-27-2023 End: 10-27-2023 Patient encounter procedure 10/27/2023 9:15 AM EST Office Visit [facility] [address] [facility] [address] [place] [id number] oMno Knowles MD [address] [facility] [address] [place] [address] Arrived [facility] Comment on above: Arrived Start: 10-19-2023 Adult BMI Screening Adult BMI Screen ing [facility] [employer] [facility] Start: 11-27-2021 DTaP,Tdap and Td Vaccines (2 - Td or Tdap) DTaP,Tdap and Td Vaccines (2 - Td or Tdap) [facility] Start: 12-01-2011 Fall Risk Screening Fall Risk Screen ing [facility] [facility] Start: 1963 Adult BMI Follow Up Plan Adult BMI Follow Up Plan [facility] Start: 1958 Depression Screening Depression Scre chyna [facility] [employer] [facility] Start: 1945 Medicare Annual Wellness Visit Medicare Annual Wellness Visit [facility] CBC W Auto Different ial panel - Blood CBC and differential Lab Routine Wellness examination 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 ([facility]) Ordered: 10/27/2023 [facility] Work Phone: Comment on above: Ordered: 10/27/2023 Immunizations Immunization Date Immunization Notes Care Provider Fa [facility] 07-12-2023 Influenza, High-dose Seasonal, Quadrivalent, Preservative Free Mono Knowles MD Work Phone: [facility] 12-22-2022 zoster vaccine recombinant D sunni Knowles MD Work Phone: [facility] 06-17-2022 Influenza, High-dose Seasonal, Quadrivalent, Preservative Free Mono Knowles MD Work Phone: [facility] 06-18-2021 Influenza, High-dose Seasonal, Quadrivalent, Preservative Free Mono Knowles MD Work Phone: [facility] 08-01-2020 zoster vaccine recombinant D sunni Knowles MD Work Phone: [facility] 05-30-2020 influenza, high dose seasonal, preservative-free Mono Knowles MD Work Phone: [facility] 06-14-2019 influenza, high dose seasonal, preservative-free Mono Knowles MD Work Phone: [facility] 09-09-2018 influenza, seasonal, injectable, preservative free Mono Knowles MD Work Phone: [facility] 01-31-2018 pneumococcal polysaccharide vaccine, 23 valent Mono Knowles MD Work Phone: [facility] 06-23-2017 influenza, high dose seasonal, preservative-free Mono Knowles MD Work Phone: [facility] 05-14-2016 seasonal influenza, intradermal, preservative free Mono Knowles MD Work Phone: [facility] 10-04-2015 influenza, injectabl e, quadrivalent, preservative free Mono Knowles MD Work Phone: [facility] 07-15-2015 seasonal influenza, intradermal, preservative free Mono Knowles MD Work Phone: [facility] 04-22-2015 pneumococcal conjuga te vaccine, 13 valent Mono Knowles MD Work Phone: [facility] 11-28-2011 tetanus toxoid, redu ria diphtheria toxoid, and acellular pertussis vaccine, adsorbed Mono Knowles MD Work Phone: [facility] Payers Date Payer Category Payer Medicaid MEDICAID [facility] EDICAID [id number] 2021-[facility] [phone] [address] [place] [address] [id number] 2019 Medicare [id number] 2019 Medicare [id number] 2017 Medicaid [id number] 1959 Self-pay 1945 Unknown [id number] 1945 Unknown [id number] 2.840.1.613087.3.579.2.128 1945 Unknown [id number] 2.840.1.504961.3.579.2.128 1945 Unknown [id number] 2.16.840.1.027509.3.579.2.128 1946 Unknown [id number] [id number] 1946 Unknown [id number] 2.16.840.1.837925.3.579.2.128 1945 Unknown [id number] 2.16.840.1.067749.3.579.2.1286 1946 Unknown [id number] 2.16.840.1.247564.3.579.2.1286 1946 Unknown [id number] 2.16.840.1.718851.3.579.2.1286 1946 Unknown [id number] 2.16.840.1.398665.3.579.2.1286 1946 Unknown [id number] 2.16.840.1.120486.3.579.2.1286 1946 Unknown [id number] 2.16.840.1.150329.3.579.2.1286 1946 Unknown [id number] 2.16.840.1.138415.3.579.2.128 1946 Unknown [id number] 2.16.840.1.824307.3.579.2.1286 1946 Unknown [id number] 2.16.840.1.242949.3.579.2.1259 1946 Unknown [id number] 2.16.840.1.255832.3.579.2.1259 1946 Unknown [id number] 2.16.840.1.798070.3.579.2.1259 1946 Unknown [id number] 2.16.840.1.336069.3.579.2.1259 1946 Unknown [id number] 2.16.840.1.496974.3.579.2.1259 1945 Unknown [id number] 2.16.840.1.995256.3.579.2.1259 Social History Date Type Detail Facility Start: 01-19-2022 End: 02-02-2023 Tobacco smoking status MDIS Ex-smoker [facility] End: 09-13-2011 History of tobacco use Current smoker [facility] End: 09-13-2011 History of tobacco use Cigarette Smoker [facility] Start: 01-19-2022 End: 02-02-2023 Tobacco use and exposure Smokeless tobacco non-user [facility] Start: 07-26-2023 End: 10-27-2023 Alcohol intake Lifetime non-drinker (finding) [facility] Start: 09-24-2020 End: 06-04-2023 History of Social function [facility] Start: 09-24-2020 End: 06-04-2023 Humiliation, Afraid, Rape, and Kick questionnaire [HARK] [facility] Within the last year , have you been afraid of your partner or ex-partner? No [facility] Are you now , , , , never or living with a partner? Living with partner [facility] How often to you hav e a drink containing alcohol? Never [facility] How many standard dr inks containing alcohol do you have on a typical day? Patient does not drink [facility] Do you feel stress - tense, restless, nervous, or anxious, or unable to sleep at night because your mind is troubled all the time - these days [OSQ] To some extent [facility] (I/We) worried wheth er (my/our) food would run out before (I/we) got money to buy more. Never true [facility] Start: 02-02-2023 Tobacco Comment Quit smoking 1 0 years ago [facility] Start: 02-02-2023 Alcohol Comment Caffeine 1-2 cups/da y [facility] Start: 1945 Sex Assigned At Not on file [facility] Start: 10-25-2023 End: 12-09-2023 Alcohol intake Current non-drinker of alcohol (finding) [facility] Goals Date Patient Goal Desired Activity /State Personal health goal Comment on above: Formatting of this n ote might be different from the original. Evaluation of progress towards goal: feeling much better today, doing well with therapy Clinical Notes 10-27-2023 to 12-09-2023 Gume Son MD - 12/09/2023 8:30 AM EDTTelephone Encounter - Quynh Bustillo CMA - 12/08/2023 9:53 AM EDTTelephone Encounter - Quynh Bustlilo CMA - 12/08/2023 9:53 AM EDT Note Date & Type Note Facility 12-09-2023 History of Presen t illness Narrative Hakeem Gregg Date of visit: 12/09/2023 Date of : 1945 Age: 78 y.o. 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 Confusion Traumatic rhabdomyolysis ([facility]) Acute renal failure superimposed on stage 3a chronic kidney disease ([facility]) COVID-19 Urologic disorders Benign prostatic hyperplasia without lower urinary tract symptoms Balanitis Injury to penis Phimosis Obesity (BMI 30-39.9) Anxiety Arthritis Atherosclerosis Colon polyp Diverticulosis Duodenal diverticulum Gastritis Hiatal hernia History of stomach ulcers Myocardial infarction ([facility]) Allergies Allergen Reactions Pneumovax-23 [Pneumococcal 23-[facility] Vaccine] Swelling Current Outpatient Medications Medication Sig Dispense Refill allopurinoL (ZYLOPRIM) 100 mg tablet Take 1 tablet (100 mg total) by mouth in the morning. ALPRAZolam (XANAX) 1 mg tablet Take 1 tablet (1 mg total) by mouth nightly as needed for anxiety. amLODIPine (NORVASC) 2.5 mg tablet Take 1 tablet (2.5 mg total) by mouth in the morning. carvediloL (COREG) 25 mg tablet Take 1 tablet (25 mg total) by mouth in the morning and 1 tablet (25 mg total) in the evening. Take with meals. 60 tablet 1 clopidogrel (PLAVIX) 75 mg tablet Take 1 tablet (75 mg total) by mouth in the morning. colchicine (MITIGARE) 0.6 mg capsule Take 1 capsule (0.6 mg total) by mouth in the morning. dicyclomine (BENTYL) 20 mg tablet Take 1 tablet (20 mg total) by mouth every 6 (six) hours. famotidine (PEPCID) 20 mg tablet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
--- NOTE | 2024-06-07 10:50 | PC.NURSE ---
this patient complains of chest pain onset after receiving the COVID & Flu shot, this patient left side chest pain 9/10 sharp and this pain increases with deep breaths.
[2024-06-07 11:00] LABS: Basophils Percent Auto 0.5 % (0.2-2.0); Eosinophils Absolute Auto 0.2 10^3/uL (0.0-0.7); Eosinophils Percent Auto 2.4 % (0.9-7.0); Hematocrit 43.1 % (42.0-54.0); Hemoglobin 13.9 g/dL (14.0-18.0); Immature Granulocytes Abs Auto 0.06 10^3/uL (0.00-0.03); Lymphocytes Absolute Auto 1.7 10^3/uL (1.2-3.8); Lymphocytes Percent Auto 27.9 % (20.5-60.0); Mean Corpuscular HGB Conc 32.3 g/dL (29.9-35.2); Mean Corpuscular Hemoglobin 29.3 pg (25.9-34.0); Mean Corpuscular Volume 90.7 fL (80.0-94.0); Mean Platelet Volume 9.1 fL (9.5-13.5); Monocytes Absolute Auto 0.5 10^3/uL (0.3-0.8); Monocytes Percent Auto 8.3 % (1.7-12.0); Neutrophils Absolute Auto 3.7 10^3/uL (1.4-6.5); Neutrophils Percent Auto 59.9 % (43.0-75.0); Platelet Count 164 10^3/uL (150-450); Red Blood Count 4.75 10^6/uL (4.70-6.10); Red Cell Distribution Width 13.6 % (11.0-15.0); White Blood Count 6.2 10^3/uL (4.0-11.0)
[2024-06-07] MEDS: 0.9 % SODIUM CHLORIDE 500 ML IV (11:04)
--- NOTE | 2024-06-07 11:05 | XR_ITS ---
The [address] [address] Patient Name: TAJ RING MRN: [id number] date: 1945 Sex: M Assigned Patient Location: ER Current Patient Location: ER Accession/Order Number: [id number] Exam Date: 06/07/2024 11:00 Report Date: 06/07/2024 11:15 At the request of: PERNELL KENNEDY Procedure: XR chest 1V EXAM: XR chest 1V HISTORY: . cp . COMPARISON: 10/02/2016 TECHNIQUE: Single view of the chest FINDINGS: Heart and vascularity are unremarkable. Lungs are free of focal infiltrates. Grossly no bony abnormality is appreciated. EKG leads overlie the chest. XR/XR chest 1V IMPRESSION: No acute heart or lung disease identified. Electronically authenticated by: MARTI HERNANDEZ Date: 06/07/2024 11:15
[2024-06-07] MEDS: KETOROLAC TROMETHAMINE 30 MG/ML VIAL 15 MG IVP (11:08)
[2024-06-07 11:13] LABS: INR 1.03; Prothrombin Time 10.9 sec (9.0-11.6)
[2024-06-07 11:25] LABS: Alanine Aminotransferase 36 U/L (16-63); Albumin Globulin Ratio 0.9; Albumin Level 3.3 g/dL (3.4-5.0); Alkaline Phosphatase 102 U/L (46-116); Anion Gap 4.8; Aspartate Amino Transferase 25 U/L (15-37); BUN Creatinine Ratio 13.4; Bilirubin Total 0.5 mg/dL (0.2-1.0); Calcium 8.7 mg/dL (8.5-10.1); Carbon Dioxide 32.7 mmol/L (21.0-32.0); Chloride 104 mmol/L (98-107); Estimated GFR (African America 50 (>=60); Estimated GFR (Non-African Ame 41 (>=60); Globulin 3.6 g/dL; Glucose 106 mg/dL (74-106); Potassium 4.5 mmol/L (3.5-5.1); Sodium 137 mmol/L (136-145); Total Protein 6.9 g/dL (6.4-8.2); Troponin I High Sensitivity 6.5 pg/mL (4.0-76.1)
[2024-06-07 13:06] LABS: Troponin I High Sensitivity 7.1 pg/mL (4.0-76.1)
== END 2024-06-07 13:37 | disposition home or self-care (01) ==
PROVIDERS: Emergency Provider Emergency Medicine; PCP Internal Medicine
DX: R07.9 Chest pain, unspecified (principal); Z95.5 Presence of coronary angioplasty implant and graft; I10 Essential (primary) hypertension
CPT/HCPCS: 36415; 71045; 80053; 84484; 85025; 85610; 93005; 96374; 99285; J1885

== ENCOUNTER 2024-06-21 10:10 | Observation (INO) | payer MEDICARE, MEDICAID, SELFPAY ==
[2024-06-21] VITALS (22 sets, daily range): BP systolic 119–152; BP diastolic 75–89; PULSE 59–67; TEMP 36.3–36.6; O2SAT 95–97; BMI 26.3; BMI 29.6
--- NOTE | 2024-06-21 10:14 | ECG_ITS ---
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
--- NOTE | 2024-06-21 10:25 | ED.SYNCOPE1 ---
HPI - Syncope General Chief Complaint: Syncope Stated Complaint: SYNCOPE/ GENERAL WEAKNESS Time Seen by Provider: 06/21/24 10:14 Source: patient Mode of arrival: ambulance Limitations: no limitations History of Present Illness HPI narrative: Patient presents to ED via EMS for syncopal episode. Patient's girlfriend states he was in bed and sat up and was not feeling well and then passed out in the bed. He did not stand up, did not fall or hurt himself. She called EMS. Upon arrival they said his blood pressure was low like 80 systolic. They gave him IV fluids and once he presented to [place] ED his blood pressure was back up to about 110 systolic. No respiratory distress. Patient states he is been weak the past couple of days and yesterday his leg gave out on the right. He has chronic problems with his right leg due to previous surgeries. He said he has had fevers the past couple of days and feels very dehydrated and dry. He says he just feels out of it and feels like he is spaced out and has difficulty talking because his mouth is so dry and he is so weak. No abdominal pain no nausea no vomiting. No chest pain. Denies any back pain. Generally poor historian. Related Data Home Medications ?Medication ?Instructions ?Recorded ?Confirmed allopurinol 100 mg tablet 100 mg PO DAILY 06/21/24 06/21/24 carvedilol 25 mg tablet 25 mg PO BID 06/21/24 06/21/24 colchicine 0.6 mg capsule mg 06/21/24 gabapentin 300 mg capsule 300 mg PO DAILY 06/21/24 06/21/24 meclizine 25 mg tablet 25 mg PO TID PRN dizziness 06/21/24 06/21/24 simvastatin 40 mg tablet 40 mg PO DAILY 06/21/24 06/21/24 sucralfate 1 gram tablet 1 g PO TID 06/21/24 06/21/24 Previous Rx's ?Medication ?Instructions ?Recorded dicyclomine 20 mg tablet 20 mg PO QID PRN abdominal pain 10/24/23 #10 tabs famotidine 20 mg tablet (Pepcid) 20 mg PO BID #10 tabs 10/24/23 pantoprazole 40 mg tablet,delayed 40 mg PO DAILY #30 tabs 10/24/23 release (Protonix) Allergies Allergy/AdvReac Type Severity Reaction Status Date / Time No Known Drug Allergies Allergy Verified 06/21/24 10:17 Review of Systems ROS Status of ROS 10 or more systems reviewed and unremarkable except as noted in history and below [facility] Medical History (Updated 06/21/24 @ 13:44 by Eugenia Huston DO) HTN (hypertension) ?I10 - Essential (primary) hypertension (ICD-10) Surgical History (Updated 06/07/24 @ 11:00 by Faina Lamar) H/O heart artery stent ?Z95.5 - Presence of coronary angioplasty implant and graft (ICD-10) Social History (Updated 06/21/24 @ 12:34 by Gladys Gamboa) Within the past year, how often did you have a drink containing alcohol: never Within the past year, how often did you have six or more drinks on one occasion: never Score interpretation: A score less than 4 is consistent with normal alcohol consumption. Smoking status: Never smoker Non-prescribed substance use: denies use Previous occupational history: Retired from [employer] Highest level of school completed/degree received: 12th grade, no diploma Do you want help with school or training: No Are you now , , , , never or living with a partner: In a typical week, how many times do you talk on the telephone with family, friends, or neighbors: 3 or more times per week How often do you get together with friends or relatives: 3 or more times per week How often do you attend taoism or methodist services: 1-3 times per year Do you belong to any clubs or organizations such as taoism groups unions, fraternal or athletic groups, or school groups: no Total score: 1 Score interpretation: A score of less than or equal to 1 indicates the most socially isolated. Little interest or pleasure in doing things: not at all Feeling down, depressed, or hopeless: not at all Feel stressed/tense/nervous/anxious/difficulty sleeping: not at all Due to disability, difficulty making decisions: No Do you think of yourself as: straight/heterosexual Gender Identity: male Exam Narrative Exam Narrative: Time Seen: [] Vital Signs: [Per nurse's notes.] General: [Alert]Lethargic Skin: [Warm, dry, no rash.]Pale Head: [Normocephalic, atraumatic.] Neck: [Supple, trachea midline.] Eye: [Pupils are equal, round and reactive to light, extraocular movements are intact, normal conjunctiva.] Ears, nose, mouth and throat: oral mucosa Dry Cardiovascular: [Regular rate and rhythm, no murmur.] Respiratory: [Lungs are clear to auscultation, respirations are non-labored, breath sounds are equal.] Chest wall: [No tenderness, no deformity.] Gastrointestinal: [Soft, nontender, non distended, normal bowel sounds.] MSK: 4 out of 5 muscle strength x 4 extremities no calf pain or edema, Generalized weakness Lymphatics: [No lymphadenopathy.] Psychiatric: [Cooperative, appropriate mood & affect.] Neurological: [Alert and oriented to person, place, time, and situation, no focal neurological deficit observed.] Constitutional Vital Signs, click to edit/add: Last Vital Signs Temp 97.4 F L 06/21/24 12:00 Pulse 62 06/21/24 12:00 Resp 16 06/21/24 12:00 BP 119/76 06/21/24 12:00 Pulse Ox 97 06/21/24 12:00 O2 Del Method Room Air 06/21/24 12:00 Course Vital Signs Vital signs: Vital Signs Blood Pressure 123/75 06/21/24 10:12 Temperature 97.4 F L 06/21/24 12:00 Pulse Rate 62 06/21/24 12:00 Respiratory Rate 16 06/21/24 12:00 Blood Pressure 119/76 06/21/24 12:00 Pulse Oximetry 97 06/21/24 12:00 Oxygen Delivery Method Room Air 06/21/24 12:00 MDM - Syncope MDM Narrative Medical decision making narrative: Patient had a seated syncope. Given the fact that he appears dry and had a syncopal episode at home while seated, he needs to be brought in for further workup. Patient will be admitted inpatient telemetry bed. I spoke to Dr. Garcia who is agreeable with care plan. Patient's labs are nonacute, CT brain is negative for acute findings. Patient and family are comfortable care plan for admission. Chest x-ray shows possible pneumonia but patient has no cough no fever and no shortness of breath. No elevated white blood cell count. I did not treat him as pneumonia at this time rather may be atelectasis or low lung volumes. Dr. Garcia aware Differential Diagnosis Differential diagnosis: Likely syncope due to orthostatic hypotension, vasovagal syncope, subarachnoid hemorrhage and dehydration Medical Records Attestation: I reviewed the patient's medical records. Lab Data Attestation: I reviewed the patient's lab results. Labs: Lab Results 06/21/24 06/21/24 06/21/24 Range/Units 10:28 10:29 10:44 WBC 5.8 (4.0-11.0) 10^3/uL RBC 4.38 L (4.70-6.10) 10^6/uL Hgb 12.9 L (14.0-18.0) g/dL Hct 40.0 L (42.0-54.0) % MCV 91.3 (80.0-94.0) fL MCH 29.5 (25.9-34.0) pg MCHC 32.3 (29.9-35.2) g/dL RDW 13.6 (11.0-15.0) % Plt Count 153 (150-450) 10^3/uL MPV 9.4 L (9.5-13.5) fL Neut % (Auto) 51.3 (43.0-75.0) % Lymph % (Auto) 35.3 (20.5-60.0) % Burnett % (Auto) 9.1 (1.7-12.0) % Eos % (Auto) 2.8 (0.9-7.0) % Baso % (Auto) 0.3 (0.2-2.0) % Neut # (Auto) 3.0 (1.4-6.5) 10^3/uL Lymph # (Auto) 2.1 (1.2-3.8) 10^3/uL Burnett # (Auto) 0.5 (0.3-0.8) 10^3/uL Eos # (Auto) 0.2 (0.0-0.7) 10^3/uL Baso # (Auto) 0.0 (0.0-0.1) 10^3/uL Abs Immat Gran (auto) 0.07 H (0.00-0.03) 10^3/uL Imm/Tot Granulo (auto) 1.2 H (0.0-0.5) % Sodium 139 (136-145) mmol/L Potassium 4.5 (3.5-5.1) mmol/L Chloride 107 (98-107) mmol/L Carbon Dioxide 27.3 (21.0-32.0) mmol/L Anion Gap 9.2 BUN 13.0 (7.0-18.0) mg/dL Creatinine 1.76 H (0.70-1.30) mg/dL Est GFR ( Amer) 46 L (>=60 mL/min/1.73m^2) Est GFR (Non-Af Amer) 38 L (>=60 mL/min/1.73m^2) BUN/Creatinine Ratio 7.4 Glucose 102 (74-106) mg/dL Lactate 0.7 (0.4-2.0) mmol/L Calcium 8.2 L (8.5-10.1) mg/dL Total Bilirubin 0.8 (0.2-1.0) mg/dL AST 19 (15-37) U/L ALT 33 (16-63) U/L Alkaline Phosphatase 82 (46-116) U/L Troponin I High Sens 5.5 (4.0-76.1) pg/mL Total Protein 6.5 (6.4-8.2) g/dL Albumin 3.2 L (3.4-5.0) g/dL Globulin 3.3 g/dL Albumin/Globulin Ratio 1.0 Influenza Type A Ag Negative Influenza Type B Ag Negative SARS-CoV-2 Ag (CV2AG) Negative (NEGATIVE) POC Glucose 110 H (74-106) mg/dL Imaging Data Chest x-ray: Radiologist's impression: ITS Impressions Chest X-Ray 06/21/24 10:42 IMPRESSION: 1. Low lung volume examination with new mild opacities within right lung apex and left lung base; infiltrates versus atelectasis. Electronically authenticated by: TYLER JAMES Date: 06/21/2024 10:[address] 06/21/24 10:46 IMPRESSION: 1. No intracranial hemorrhage, mass, or suspicious abnormality. 2. Mild age consistent chronic changes. Electronically authenticated by: TYLER JAMES Date: 06/21/2024 11:07 ECG Data Attestation: I personally reviewed and interpreted this ECG as follows: Interpretation: EKG INTERPRETATION Time: []1016 Rate: []62 Rhythm: _ []Normal sinus rhythm ST segments: _ []No acute ST elevation or depression T waves: _ [] Ectopy: _ [] P wave/NE interval: _ [] QRS interval: _ [] QT interval: _ [] Comparison: _ [] Comparison EKG date: [] Performed by: [self] Discharge Plan Discharge Chief Complaint: Syncope Clinical Impression: Syncope Patient Disposition: Admitted as Observation Time of Disposition Decision: 13:44 Condition: Fair Discharge Date/Time: 06/21/24 11:46
[2024-06-21 10:31] LABS: Glucometer 110 mg/dL (74-106)
--- NOTE | 2024-06-21 10:42 | XR_ITS ---
The [address] [address] Patient Name: TAJ RING MRN: [id number] date: 1945 Sex: M Assigned Patient Location: ED.MAIN Current Patient Location: ED.MAIN Accession/Order Number: [id number] Exam Date: 06/21/2024 10:38 Report Date: 06/21/2024 10:52 At the request of: PERNELL KENNEDY Procedure: XR chest 1V EXAMINATION: XR chest 1V HISTORY: syncope COMPARISON: XR chest 06/07/2024 FINDINGS: LUNGS: Mild haziness within right lung apex and lateral left lung base. VASCULATURE: No increased pulmonary vasculature. PLEURA: No pneumothorax, effusion, or pleural thickening. CARDIAC: No cardiomegaly or cardiac silhouette abnormality. MEDIASTINUM: No visible mass or adenopathy. BONES: No fracture or visible bone lesion. OTHER: Negative. XR/XR chest 1V IMPRESSION: 1. Low lung volume examination with new mild opacities within right lung apex and left lung base; infiltrates versus atelectasis. Electronically authenticated by: TYLER JAMES Date: 06/21/2024 10:52
--- OUTSIDE RECORDS SUMMARY | 2024-06-21 10:43 | XMS_ITS | CCD ---
Author Organization [place] [facility] Care Team Providers Care Emergency Medical Technician Name Role Phone DR MONO KNOWLES Attending Unavailable ESHA, DR FOREMAN Primary Care Unavailable DR MONO KNOWLES Admitting Unavailable Mono Knowles MD Unavailable [phone] Mono Knowles MD Primary Care Provider Mono Knowles MD Primary Care Provider GUME [...] source) Pneumovax 23 Drug allergy (disorder) [facility] Repository (3 sources) Pneumococcal 20-Roselyn Conj Vacc Drug Intolerance 1 Swelling [facility] Healthcare Work Phone: (3 sources) Pneumococcal Vac Polyvalent Drug Allergy 1 Swelling [facility] (6 sources) Streptococcus pneumoniae type 1 capsular [...] 23-ROSELYN PS VACCINE] Drug Allergy 1 Swelling [facility] Medications Current Medications Medication Drug Class(es) Dates Sig (Normalized) Sig (Original) acetaminophen 325 mg / HYDROcodone bitartrate 10 mg oral tablet (8 sources) Opioid Agonist Start: 10-06-2023 take 1 tablet by mouth every six hours for pain HYDROcodone-aceta minophen ([place]) 10-325 MG tablet Indications: Cervical stenosis of [...] (Zocor) 40 MG tablet Indications: Atherosclerosis of [place] coronary artery of [place] heart without angina pectoris (CMS/HCC) Take 1 [...] Coronary occlusion; Translations: [Atherosclerotic heart disease of [place] coronary artery without angina pectoris] Onset: 4 [...] Acute and unspecified renal failure (8 sources) Xfduk-zl-wgvzjdy renal failure; Translations: [Acute kidney failure, unspecified] [...] Eosinophils (Bld) [#/Vol] 0.1 10*3/uL Normal 0.0-0.[address] [facility] Comment on above: Performed By: #### C BCA, PINR, 78118-9, 28029-9, BMP, 3040-3, LIVR, 33228-1, 69337-4 #### [facility] ([id number]) [address] [place] [address] 54711 Eosinophils/100 WBC (Bld) 1.3 % Normal [facility] Comment on above: Performed By: #### C BCA, PINR, 46852-8, 22843-6, BMP, 3040-3, LIVR, 65488-9, 86174-3 #### [facility] ([id number]) [address] [place] [address] 03805 Erythrocyte distribution width (RBC) [Ratio] 15.4 % High 11.5-15.[address] [facility] Comment on above: Performed By: #### C BCA, PINR, 53334-7, 32104-6, BMP, 3040-3, LIVR, 79896-1, 12738-9 #### [facility] ([id number]) [address] [place] [address] 70138 Hematocrit (Bld) [Volume fraction] 42.1 % Normal 39-[address] [facility] Comment on above: Performed By: #### C BCA, PINR, 06823-8, 35642-1, BMP, 3040-3, LIVR, 92491-3, 38840-0 #### [facility] ([id number]) [address] [place] [address] 17452 Hemoglobin (Bld) [Mass/Vol] 13.9 g/dL Normal 13.0-17.[address] [facility] Comment on above: Performed By: #### C BCA, PINR, 55309-7, 99853-6, BMP, 3040-3, LIVR, 48852-8, 52776-1 #### [facility] ([id number]) [address] [place] [address] 45588 Lymphocytes (Bld) [#/Vol] 1.0 10*3/uL Normal 1.0-3.[address] [facility] Comment on above: Performed By: #### C BCA, PINR, 32474-2, 09106-2, BMP, 3040-3, LIVR, 43753-9, 69009-5 #### [facility] ([id number]) [address] [place] [address] 56124 Lymphocytes/100 WBC (Bld) 13.2 % Normal [facility] Comment on above: Performed By: #### C BCA, PINR, 14934-2, 55970-1, BMP, 3040-3, LIVR, 52892-1, 45719-6 #### [facility] ([id number]) [address] [place] [address] 97269 MCH (RBC) [Entitic mass] 29.2 pg Normal 27-[address] [facility] Comment on above: Performed By: #### C BCA, PINR, 99459-3, 80882-8, BMP, 3040-3, LIVR, 60066-6, 70255-8 #### [facility] ([id number]) [address] [place] [address] 24950 MCHC (RBC) [Mass/Vol] 33.1 g/dL Normal 32-[address] [facility] Comment on above: Performed By: #### C BCA, PINR, 94711-2, 00504-6, BMP, 3040-3, LIVR, 28555-5, 99836-6 #### [facility] ([id number]) [address] [place] [address] 87964 MCV (RBC) [Entitic vol] 88 fL Normal 80-[address] [facility] Comment on above: Performed By: #### C BCA, PINR, 74911-3, 66262-4, BMP, 3040-3, LIVR, 27583-7, 24190-3 #### [facility] ([id number]) [address] [place] [address] 58519 Monocytes (Bld) [#/Vol] 0.5 10*3/uL Normal 0-0.[address] [facility] Comment on above: Performed By: #### C BCA, PINR, 60912-2, 20668-7, BMP, 3040-3, LIVR, 14215-5, 68890-7 #### [facility] ([id number]) [address] [place] [address] 84359 Monocytes/100 WBC (Bld) 6.6 % Normal [facility] Comment on above: Performed By: #### C BCA, PINR, 02706-5, 33898-2, BMP, 3040-3, LIVR, 95519-9, 54520-0 #### [facility] ([id number]) [address] [place] [address] 55090 Neutrophils (Bld) [#/Vol] 6.1 10*3/uL Normal 1.5-6.[address] [facility] Comment on above: Performed By: #### C BCA, PINR, 73498-3, 30524-1, BMP, 3040-3, LIVR, 33758-3, 39880-0 #### [facility] ([id number]) [address] [place] [address] 60055 Platelet mean volume (Bld) [Entitic vol] 7.4 fL Normal 7-[address] [facility] Comment on above: Performed By: #### C BCA, PINR, 51959-6, 84884-7, BMP, 3040-3, LIVR, 75059-4, 30639-4 #### [facility] ([id number]) [address] [place] [address] 33860 Platelets (Bld) [#/Vol] 134 10*3/uL Low 150-[address] [facility] Comment on above: Performed By: #### C BCA, PINR, 60596-5, 72518-6, BMP, 3040-3, LIVR, 13500-9, 96547-4 #### [facility] ([id number]) [address] [place] [address] 81528 RBC COUNT 4.76 X10E12/L Normal 4.10-5.[address] [facility] Comment on above: Performed By: #### C BCA, PINR, 22278-5, 93772-0, BMP, 3040-3, LIVR, 74715-0, 93929-1 #### [facility] ([id number]) [address] [place] [address] 47896 SEG NEUTROPHIL 78.9 % Normal [facility] Comment on above: Performed By: #### C BCA, PINR, 95685-1, 33160-4, BMP, 3040-3, LIVR, 90131-5, 11427-9 #### [facility] ([id number]) [address] [place] [address] 75469 WBC (Bld) [#/Vol] 7.7 10*3/uL Normal 4.0-11.0 [facility] Comment on above: Performed By: #### C BCA, PINR, 80855-0, 09534-7, BMP, 3040-3, LIVR, 46678-1, 25612-9 #### [facility] ([id number]) [address] [place] [address] 27352 COMPREHENSIVE METABOLIC PANE Reji 05-18-2024 Albumin [Mass/Vol] 3.9 g/dL Normal 3.2-5.3 [facility] Comment on above: Performed By: #### C BCA, PINR, 73921-3, 43666-6, BMP, 3040-3, LIVR, 62440-8, 76692-4 #### [facility] ([id number]) [address] [place] [address] 11673 ALP [Catalytic activity/Vol] 92 U/L Normal 39-[address] [facility] Comment on above: Performed By: #### C BCA, PINR, 55648-1, 07519-0, BMP, 3040-3, LIVR, 45764-8, 64139-0 #### [facility] ([id number]) [address] [place] [address] 85834 ALT [Catalytic activity/Vol] 48 U/L High 0-[address] [facility] Comment on above: Performed By: #### C BCA, PINR, 03633-9, 22705-0, BMP, 3040-3, LIVR, 48045-8, 86930-2 #### [facility] ([id number]) [address] [place] [address] 29604 Anion gap [Moles/Vol] 8 mmol/L Normal 5-[address] [facility] Comment on above: Performed By: #### C BCA, PINR, 43390-4, 86580-1, BMP, 3040-3, LIVR, 54130-9, 73221-1 #### [facility] ([id number]) [address] [place] [address] 98245 AST [Catalytic activity/Vol] 29 U/L Normal 0-[address] [facility] Comment on above: Performed By: #### C BCA, PINR, 58973-5, 88664-9, BMP, 3040-3, LIVR, 23733-4, 17351-0 #### [facility] ([id number]) [address] [place] [address] 93714 Bilirubin [Mass/Vol] 1.1 mg/dL Normal 0.3-1.[address] [facility] Comment on above: Performed By: #### C BCA, PINR, 62608-9, 10592-1, BMP, 3040-3, LIVR, 89091-9, 47192-0 #### [facility] ([id number]) [address] [place] [address] 88022 Calcium [Mass/Vol] 8.4 mg/dL Low 8.5-10.5 [facility] Comment on above: Performed By: #### C BCA, PINR, 82377-6, 53931-6, BMP, 3040-3, LIVR, 86581-8, 54115-1 #### [facility] ([id number]) [address] [place] [address] 62974 Chloride [Moles/Vol] 103 mmol/L Normal 98-[address] [facility] Comment on above: Performed By: #### C BCA, PINR, 47522-8, 64278-0, BMP, 3040-3, LIVR, 25068-9, 47037-6 #### [facility] ([id number]) [address] [place] [address] [place] [address] CO2 [Moles/Vol] 25 mmol/L Normal 22-[address] [facility] Comment on above: Performed By: #### C BCA, PINR, 09996-5, 88658-8, BMP, 3040-3, LIVR, 57506-1, 15406-5 #### [facility] ([id number]) [address] [place] [address] 61913 Creatinine [Mass/Vol] 1.51 mg/dL High 0.70-1.[address] [facility] Comment on above: Result Comment: METH OD TRACEABLE TO IDMS STANDARD Performed By: #### C BCA, PINR, 15857-7, 52311-0, BMP, 3040-3, LIVR, 04676-5, 86295-1 #### [facility] ([id number]) [address] [place] [address] 55834 GFR/1.73 sq M.predicted among non-blacks MDRD (S/P/Bld) [Vol rate/Area] 47 mL/min/{1.73_m2} Low >[address] [facility] Comment on above: Result Comment: Reported eGFR is based on the CKD-EPI 2020 equation that does not use a race coefficient. Performed By: #### C BCA, PINR, 33637-0, 34587-3, BMP, 3040-3, LIVR, 64406-8, 71978-5 #### [facility] ([id number]) [address] [place] [address] 00498 Glucose [Mass/Vol] 97 mg/dL Normal 65-99 [facility] Comment on above: Performed By: #### C BCA, PINR, 04638-2, 87426-4, BMP, 3040-3, LIVR, 20615-0, 98973-0 #### [facility] ([id number]) [address] [place] [address] 04285 Potassium [Moles/Vol] 4.6 mmol/L Normal 3.5-5.[address] [facility] Comment on above: Performed By: #### C BCA, PINR, 55772-6, 06361-1, BMP, 3040-3, LIVR, 13487-7, 35072-5 #### [facility] ([id number]) [address] [place] [address] 00717 Protein [Mass/Vol] 6.9 g/dL Normal 6.0-8.0 [facility] Comment on above: Performed By: #### C BCA, PINR, 48162-8, 18782-9, BMP, 3040-3, LIVR, 42061-7, 92062-2 #### [facility] ([id number]) [address] [place] [address] 11474 Sodium [Moles/Vol] 136 mmol/L Normal 134-146 [facility] Comment on above: Performed By: #### C BCA, PINR, 20223-1, 62935-8, BMP, 3040-3, LIVR, 98087-8, 37227-3 #### [facility] ([id number]) [address] [place] [address] 55044 Urea nitrogen [Mass/Vol] 29 mg/dL High 5-[address] [facility] Comment on above: Performed By: #### C BCA, PINR, 23919-8, 59736-2, BMP, 3040-3, LIVR, 68240-0, 19035-7 #### [facility] ([id number]) [address] [place] [address] BRAIN WO CONTon CT BRAIN WO [...] Larsen MD on 05/18/2024 7:20 AM Normal [facility] CT CERVICAL SPINE WO CONTon 05-18-2024 CT [...] low as reasonably achievable. Finalized by Jomar Honre MD on 05/18/2024 7:30 AM Normal [facility] Troponin I.cardiac High sens itivity method [Mass/Vol]on 05-18-2024 1 HOUR TROP I, HIGH SENSITIVITY 7 ng/L Normal <[address] [facility] Comment on above: Performed By: #### C BCA, PINR, 76271-9, 34994-7, BMP, 3040-3, LIVR, 28931-7, 98627-8 #### [facility] ([id number]) [address] [place] [address], [place] [address] TROPONIN I, HIGH SENSITIVITY 7 ng/L Normal <[address] [facility] Comment on above: Performed By: #### C BCA, PINR, 94765-7, 07568-2, BMP, 3040-3, LIVR, 14142-5, 98416-5 #### [facility] ([id number]) [address] [place] [address] 14207 URN MACROSCOPIC NURon 2023 BILIRUBIN VAHE Negative Normal NEG [facility] Comment on above: Performed By: #### C BCA, PINR, 85007-6, 39312-7, BMP, 3040-3, LIVR, 23195-3, 12221-2 #### [facility] ([id number]) [address] [place] [address] 06368 BLOOD/HGB VAHE Trace Abnormal NEG [facility] Comment on above: Performed By: #### C BCA, PINR, 99317-3, 97773-5, BMP, 3040-3, LIVR, 50166-2, 96200-8 #### [facility] ([id number]) [address] [place] [address] [place] [address] GLUCOSE VAHE Negative Normal NEG [facility] Comment on above: Performed By: #### C BCA, PINR, 23931-9, 80263-0, BMP, 3040-3, LIVR, 09429-0, 44878-3 #### [facility] ([id number]) [address] [place] [address] [place] [address] KETONES VAHE Negative Normal NEG [facility] Comment on above: Performed By: #### C BCA, PINR, 41178-6, 40923-8, BMP, 3040-3, LIVR, 67077-9, 89181-0 #### [facility] ([id number]) [address] [place] [address] 78948 LEUKOCYTE ESTERASE VAHE Negative Normal NEG [facility] Comment on above: Performed By: #### C BCA, PINR, 22356-1, 63644-7, BMP, 3040-3, LIVR, 13969-8, 53149-0 #### [facility] ([id number]) [address] [place] [address] 51037 NITRITE VAHE Negative Normal NEG [facility] Comment on above: Performed By: #### C BCA, PINR, 38028-3, 07435-5, BMP, 3040-3, LIVR, 23471-2, 26086-0 #### [facility] ([id number]) [address] [place] [address] 54531 PH VAHE 7.0 Normal 5.0-8.[address] [facility] Comment on above: Performed By: #### C BCA, PINR, 38357-3, 82894-4, BMP, 3040-3, LIVR, 77726-5, 57152-4 #### [facility] ([id number]) [address] [place] [address] 85780 PROTEIN VAHE Negative Normal NEG [facility] Comment on above: Performed By: #### C BCA, PINR, 38346-8, 70518-2, BMP, 3040-3, LIVR, 13358-3, 92455-1 #### [facility] ([id number]) [address] [place] [address] 34972 SPECIFIC GRAVITY VAHE 1.020 Normal 1.003-1.[address] [facility] Comment on above: Performed By: #### C BCA, PINR, 63313-8, 80735-9, BMP, 3040-3, LIVR, 79699-6, 29961-2 #### [facility] ([id number]) [address] [place] [address] 05523 UROBILINOGEN VAHE 0.2 eu/dL Normal <1.1 [facility] Comment on above: Performed By: #### C BCA, PINR, 20501-6, 91112-1, BMP, 3040-3, LIVR, 89777-3, 59260-8 #### [facility] ([id number]) [address] [place] [address] 80421 XR CHEST 1 VWon 05-18-2024 XR CHEST [...] Horne MD on 05/18/2024 7:31 AM Normal [facility] XR PELVIS 1 OR 2 VWSon 05-18 [...] Horne MD on 05/18/2024 7:33 AM Normal [facility] XR CHEST 2 VWSon 05-10-2024 XR CHEST 2 VWS XR CHEST 2 VWS PA and lateral chest: HISTORY: Cough. 2 views the chest are obtained. Lungs are clear. The cardiac and mediastinal contours are within normal limits. There is no pneumothorax, effusion, or vascular congestion. Osseous structures appear intact. IMPRESSION: No acute findings. Finalized by Joey Tejada MD on 05/10/2024 1:22 PM Normal [facility] BASIC METABOLIC PANLon 10-25 Anion gap [Moles/Vol] 5 mmol/L Normal 5-[address] [facility] Comment on above: Performed By: #### C BCA, PINR, 70496-2, 82086-0, BMP, 3040-3, LIVR, 97145-5, 32459-4 #### [facility] ([id number]) [address] [place] [address] [place] [address] Calcium [Mass/Vol] 8.3 mg/dL Low 8.5-10.5 [facility] Comment on above: Performed By: #### C BCA, PINR, 88610-1, 66953-2, BMP, 3040-3, LIVR, 62065-3, 15545-9 #### [facility] ([id number]) [address] [place] [address] 60429 Chloride [Moles/Vol] 107 mmol/L Normal 98-[address] [facility] Comment on above: Performed By: #### C BCA, PINR, 14175-3, 43727-7, BMP, 3040-3, LIVR, 39573-9, 88148-4 #### [facility] ([id number]) [address] [place] [address] 68652 CO2 [Moles/Vol] 25 mmol/L Normal 22-[address] [facility] Comment on above: Performed By: #### C BCA, PINR, 08367-3, 64997-0, BMP, 3040-3, LIVR, 61590-4, 25061-6 #### [facility] ([id number]) [address] [place] [address] 87227 Creatinine [Mass/Vol] 1.42 mg/dL High 0.70-1.[address] [facility] Comment on above: Result Comment: METH OD TRACEABLE TO IDMS STANDARD Performed By: #### C BCA, PINR, 11899-9, 90110-4, BMP, 3040-3, LIVR, 79208-4, 34847-6 #### [facility] ([id number]) [address] [place] [address] 69344 GFR/1.73 sq M.predicted among non-blacks MDRD (S/P/Bld) [Vol rate/Area] 51 mL/min/{1.73_m2} Low >[address] [facility] Comment on above: Result Comment: Reported eGFR is based on the CKD-EPI 2020 equation that does not use a race coefficient. Performed By: #### C BCA, PINR, 45968-5, 97085-9, BMP, 3040-3, LIVR, 78892-3, 11460-8 #### [facility] ([id number]) [address] [place] [address] 92966 Glucose [Mass/Vol] 90 mg/dL Normal 65-99 [facility] Comment on above: Performed By: #### C BCA, PINR, 58588-2, 15826-4, BMP, 3040-3, LIVR, 20596-7, 98588-9 #### [facility] ([id number]) [address] [place] [address] 82146 Potassium [Moles/Vol] 4.3 mmol/L Normal 3.5-5.[address] [facility] Comment on above: Performed By: #### C BCA, PINR, 90695-1, 65668-9, BMP, 3040-3, LIVR, 38963-3, 38312-4 #### [facility] ([id number]) [address] [place] [address] 45740 Sodium [Moles/Vol] 137 mmol/L Normal 134-146 [facility] Comment on above: Performed By: #### C BCA, PINR, 83145-4, 76079-0, BMP, 3040-3, LIVR, 69091-0, 22738-1 #### [facility] ([id number]) [address] [place] [address] 24776 Urea nitrogen [Mass/Vol] 17 mg/dL Normal 5-[address] [facility] Comment on above: Performed By: #### C BCA, PINR, 36459-1, 32208-6, BMP, 3040-3, LIVR, 13965-5, 73200-2 #### [facility] ([id number]) [address] [place] [address] 51054 CBC AND AUTO DIFFon 10-25-19 24 ABSOLUTE BASOPHIL 0.1 X10E9/L Normal 0.0-0.2 [facility] Comment on above: Performed By: #### C BCA, PINR, 99419-5, 57327-5, BMP, 3040-3, LIVR, 79373-4, 89568-8 #### [facility] ([id number]) [address] [place] [address] 26427 ABSOLUTE NEUTROPHIL 3.1 X10E9/L Normal 1.5-6.6 [facility] Comment on above: Performed By: #### C BCA, PINR, 74821-6, 63353-0, BMP, 3040-3, LIVR, 56729-2, 78615-9 #### [facility] ([id number]) [address] [place] [address] 13564 Basophils/100 WBC (Bld) 1.0 % Normal [facility] Comment on above: Performed By: #### C BCA, PINR, 80488-0, 19976-4, BMP, 3040-3, LIVR, 15610-7, 25392-8 #### [facility] ([id number]) [address] [place] [address] 80982 Eosinophils (Bld) [#/Vol] 0.1 10*3/uL Normal 0.0-0.[address] [facility] Comment on above: Performed By: #### C BCA, PINR, 43991-8, 36801-8, BMP, 3040-3, LIVR, 85206-2, 35600-5 #### [facility] ([id number]) [address] [place] [address] 78883 Eosinophils/100 WBC (Bld) 1.8 % Normal [facility] Comment on above: Performed By: #### C BCA, PINR, 72121-3, 27460-2, BMP, 3040-3, LIVR, 72080-5, 07073-6 #### [facility] ([id number]) [address] [place] [address] 41124 Erythrocyte distribution width (RBC) [Ratio] 14.8 % Normal 11.5-15.[address] [facility] Comment on above: Performed By: #### C BCA, PINR, 80251-4, 31022-1, BMP, 3040-3, LIVR, 33825-5, 52190-5 #### [facility] ([id number]) [address] [place] [address] 96110 Hematocrit (Bld) [Volume fraction] 37.8 % Low 39-[address] [facility] Comment on above: Performed By: #### C BCA, PINR, 81009-9, 45459-4, BMP, 3040-3, LIVR, 89386-0, 18635-0 #### [facility] ([id number]) [address] [place] [address] 37271 Hemoglobin (Bld) [Mass/Vol] 12.8 g/dL Low 13.0-17.[address] [facility] Comment on above: Performed By: #### C BCA, PINR, 57040-2, 20094-8, BMP, 3040-3, LIVR, 19023-2, 95997-8 #### [facility] ([id number]) [address] [place] [address] 14965 Lymphocytes (Bld) [#/Vol] 1.6 10*3/uL Normal 1.0-3.[address] [facility] Comment on above: Performed By: #### C BCA, PINR, 97758-1, 77222-4, BMP, 3040-3, LIVR, 06006-5, 69925-0 #### [facility] ([id number]) [address] [place] [address] 18308 Lymphocytes/100 WBC (Bld) 31.2 % Normal [facility] Comment on above: Performed By: #### C BCA, PINR, 51281-6, 24643-0, BMP, 3040-3, LIVR, 46728-4, 47770-4 #### [facility] ([id number]) [address] [place] [address] 73271 MCH (RBC) [Entitic mass] 29.7 pg Normal 27-[address] [facility] Comment on above: Performed By: #### C BCA, PINR, 09045-1, 01379-1, BMP, 3040-3, LIVR, 44122-6, 26550-5 #### [facility] ([id number]) [address] [place] [address] 05825 MCHC (RBC) [Mass/Vol] 33.9 g/dL Normal 32-[address] [facility] Comment on above: Performed By: #### C BCA, PINR, 58903-0, 77989-0, BMP, 3040-3, LIVR, 56024-7, 81006-8 #### [facility] ([id number]) [address] [place] [address] 08529 MCV (RBC) [Entitic vol] 88 fL Normal 80-[address] [facility] Comment on above: Performed By: #### C BCA, PINR, 84446-8, 77991-6, BMP, 3040-3, LIVR, 01584-6, 45116-3 #### [facility] ([id number]) [address] [place] [address] 56041 Monocytes (Bld) [#/Vol] 0.4 10*3/uL Normal 0-0.[address] [facility] Comment on above: Performed By: #### C BCA, PINR, 82448-5, 04472-3, BMP, 3040-3, LIVR, 20625-4, 85564-2 #### [facility] ([id number]) [address] [place] [address] 57631 Monocytes/100 WBC (Bld) 6.8 % Normal [facility] Comment on above: Performed By: #### C BCA, PINR, 75173-8, 83480-6, BMP, 3040-3, LIVR, 39140-1, 95235-0 #### [facility] ([id number]) [address] [place] [address] 29454 Neutrophils/100 WBC (Bld) 59.2 % Normal [facility] Comment on above: Performed By: #### C BCA, PINR, 95708-2, 77734-2, BMP, 3040-3, LIVR, 69824-3, 64309-7 #### [facility] ([id number]) [address] [place] [address] 82120 Platelet mean volume (Bld) [Entitic vol] 7.6 fL Normal 7-[address] [facility] Comment on above: Performed By: #### C BCA, PINR, 69197-7, 33401-4, BMP, 3040-3, LIVR, 94143-3, 85834-1 #### [facility] ([id number]) [address] [place] [address] 72715 Platelets (Bld) [#/Vol] 146 10*3/uL Low 150-[address] [facility] Comment on above: Performed By: #### C BCA, PINR, 52550-6, 73595-0, BMP, 3040-3, LIVR, 33969-5, 45776-2 #### [facility] ([id number]) [address] [place] [address] 48603 RBC COUNT 4.31 X10E12/L Normal 4.10-5.[address] [facility] Comment on above: Performed By: #### C BCA, PINR, 03084-0, 99512-6, BMP, 3040-3, LIVR, 08872-5, 85517-4 #### [facility] ([id number]) [address] [place] [address] 46193 WBC (Bld) [#/Vol] 5.2 10*3/uL Normal 4.0-11.0 [facility] Comment on above: Performed By: #### C BCA, PINR, 38614-8, 36172-0, BMP, 3040-3, LIVR, 44528-0, 86821-7 #### [facility] ([id number]) [address] [place] [address], [place] [address] CT ABDOMEN AND PELVIS W CONT on [...] Tejada MD on 10/25/2023 2:27 PM Normal [facility] CT BRAIN WO CONTon CT BRAIN WO [...] Gonzáles MD on 10/25/2023 3:50 PM Normal [facility] LIPASEon 10-25-2023 Lipase [Catalytic activity/Vol] 24 U/L Normal 17-[address] [facility] Comment on above: Performed By: #### C BCA, PINR, 84124-4, 84984-9, BMP, 3040-3, LIVR, 06853-7, 50053-2 #### [facility] ([id number]) [address] [place] [address] 69044 LIVER PANELon 10-25-2023 Albumin [Mass/Vol] 4.1 g/dL Normal 3.2-5.3 [facility] Comment on above: Performed By: #### C BCA, PINR, 42008-4, 18984-6, BMP, 3040-3, LIVR, 53494-4, 32462-5 #### [facility] ([id number]) [address] [place] [address] [place] [address] ALP [Catalytic activity/Vol] 75 U/L Normal 39-[address] [facility] Comment on above: Performed By: #### C BCA, PINR, 35496-2, 57285-9, BMP, 3040-3, LIVR, 23921-8, 45450-7 #### [facility] ([id number]) [address] [place] [address] ALT [Catalytic activity/Vol] 20 U/L Normal 0-[address] [facility] Comment on above: Performed By: #### C BCA, PINR, 43463-1, 74376-6, BMP, 3040-3, LIVR, 57113-5, 29984-4 #### [facility] ([id number]) [address] [place] [address] [place] [address] AST [Catalytic activity/Vol] 23 U/L Normal 0-[address] [facility] Comment on above: Performed By: #### C BCA, PINR, 78108-4, 78293-8, BMP, 3040-3, LIVR, 97668-1, 22202-1 #### [facility] ([id number]) [address] [place] [address] Bilirubin [Mass/Vol] 1.1 mg/dL Normal 0.3-1.[address] [facility] Comment on above: Performed By: #### C BCA, PINR, 25431-0, 59541-3, BMP, 3040-3, LIVR, 59926-9, 86506-7 #### [facility] ([id number]) [address] [place] [address] Bilirubin.direct [Mass/Vol] 0.2 mg/dL Normal 0.0-0.[address] [facility] Comment on above: Performed By: #### C BCA, PINR, 91389-0, 85348-2, BMP, 3040-3, LIVR, 53764-7, 54327-7 #### [facility] ([id number]) [address] [place] [address]69 Protein [Mass/Vol] 6.5 g/dL Normal 6.0-8.0 [facility] Comment on above: Performed By: #### C BCA, PINR, 71630-0, 19629-1, BMP, 3040-3, LIVR, 80767-0, 21979-8 #### [facility] ([id number]) [address] [place] [address]52 Lactate (P scotty) [Moles/Vol]o n 10-25-2023 LACTATE W/REFLEX 0.6 mmol/L Normal 0.4-2.0 [facility] Comment on above: Result Comment: Result did not trigger repeat Lactate, re-order if needed. Performed By: #### C BCA, PINR, 94721-3, 95927-2, BMP, 3040-3, LIVR, 74995-9, 14757-6 #### [facility] ([id number]) [address] [place] [address] [place] [address] MAGNESIUMon 10-25-2023 Magnesium [Mass/Vol] 1.9 mg/dL Normal 1.8-2.[address] [facility] Comment on above: Performed By: #### C BCA, PINR, 09944-7, 99739-3, BMP, 3040-3, LIVR, 29582-9, 06450-2 #### [facility] ([id number]) [address] [place] [address] PROTIME AND INRon 10-25-2023 INR Coag (PPP) [Relative time] 1.1 {INR} Normal 0.8-1.[address] [facility] Comment on above: Performed By: #### C BCA, PINR, 03280-4, 65741-6, BMP, 3040-3, LIVR, 23526-9, 99003-9 #### [facility] ([id number]) [address] [place] [address]60 PT Coag (PPP) [Time] 12.5 s Normal 9.8-13.[address] [facility] Comment on above: Result Comment: NEW REFERENCE RANGE Performed By: #### C BCA, PINR, 61912-1, 27416-7, BMP, 3040-3, LIVR, 26605-1, 66739-4 #### [facility] ([id number]) [address] [place] [address] TROPONIN Ion 10-25-2023 Troponin I.cardiac [Mass/Vol] ng/mL Normal 0.00-0.[address] [facility] Comment on above: Performed By: #### C BCA, PINR, 65396-7, 14225-9, BMP, 3040-3, LIVR, 45506-9, 77305-0 #### [facility] ([id number]) [address] [place] [address]44 URINE CULTUREon 10-25-2023 Bacteria identified Cx Nom (U) CULTURE RESULTS <10,000 ORGANISMS/ML NORMAL URO GENITAL TERESA Normal [facility] Comment on above: Performed By: #### C BCA, PINR, 35679-1, 35559-6, BMP,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 encounter [facility] 12-08-2023 Miscellaneous Notes Formattin g of this note might be different from the original. Called patient to remind them to bring their most current copy of their medication list with them to their appt. Patient verbalizes understanding. [facility] Note Called patient to remind them to bring their most current copy of their medication list with them to their appt. Patient verbalizes understanding. [facility] 11-16-2023 Miscellaneous Notes Formattin g of this note might be different from the original. Attempted to phone pt to remind of appt scheduled for 11/17/2023,no vm set up. documented in this encounter [facility] 11-16-2023 Telephone encount er Note Attempted to phone pt to remind of appt scheduled for 11/17/2023,no vm set up. [facility] 11-01-2023 Miscellaneous Notes Formattin g of this [...] having chest pain.slm documented in this encounter [facility] 11-01-2023 Telephone encount er Note Peace pt [...] ER if Has continues having chest pain.slm [facility] 10-27-2023 History of Presen t illness Narrative [...] mouth at bedtime. 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) - [...] October 27, 2023 documented in this encounter [facility] Evaluation note Diagnosis Wellness examination- Primary 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) Stented [...] Essential hypertension, benign Coronary artery disease involving [place] coronary artery of [place] heart without angina pectoris documented in this encounter [facility] filedocumented in this encounter [facility]ructionsNot on filedocumented in this encounter [facility] filed[facility]ed in this encounter [facility] Summary Purpose Family History No Family History [...] and content) DATE CREATED AUTHOR 02/08/2021 [facility] DATE CREATED AUTHOR AUTHOR'S ORGANIZ ATION 10/08/2021 [facility] DATE CREATED AUTHOR AUTHOR'S ORGANIZ ATION 05/14/2022 [facility] dical Specialist DATE CREATED AUTHOR AUTHOR'S ORGANIZ ATION 05/19/2024 [facility] DATE CREATED AUTHOR AUTHOR'S ORGANIZ ATION 05/26/2024 [facility] dical Specialists EPIC Care Teams (unrecognized sec tion and content) Emergency Medical Technician Relationship Specialty Start Date End Date Mono Knowles MD [address] [facility] [address] [place] [address] PCP - Jonathan FLORES 09/13/21 Mono Knowles MD [address] [facility] [address] [place] [address] PCP - General Internal Medicine 03/01/23 Emergency Medical Technician Relationship Specialty Start Date End Date Mono Knowles MD [address] [facility] [address] [place] [address] PCP - Jonathan FLORES 09/13/21 Mono Knowles MD [address] [facility] [address] [place] [address] PCP - General Internal Medicine 03/01/23 Emergency Medical Technician Relationship Specialty Start Date End Date Mono Knowles MD [address] [place] [id number] PCP - General 10/25/23 Emergency Medical Technician Relationship Specialty Start Date End Date Mono Knowles MD [address] [place] [id number] PCP - General 10/25/23 Emergency Medical Technician Relationship Specialty Start Date End Date Mono Knowles MD [address] [place] [phone] PCP - General 10/25/23 Reason for Visit [...] BE BASED ON THE PRIMARY CLINICAL RECORDS. [employer] provides no warranty or guarantee of the accuracy or completeness of information in this document.
[2024-06-21 10:46] LABS: Basophils Percent Auto 0.3 % (0.2-2.0); Eosinophils Absolute Auto 0.2 10^3/uL (0.0-0.7); Eosinophils Percent Auto 2.8 % (0.9-7.0); Hemoglobin 12.9 g/dL (14.0-18.0); Immature Granulocytes Abs Auto 0.07 10^3/uL (0.00-0.03); Immature Granulocytes Pct Auto 1.2 % (0.0-0.5); Lymphocytes Absolute Auto 2.1 10^3/uL (1.2-3.8); Lymphocytes Percent Auto 35.3 % (20.5-60.0); Mean Corpuscular HGB Conc 32.3 g/dL (29.9-35.2); Mean Corpuscular Hemoglobin 29.5 pg (25.9-34.0); Mean Corpuscular Volume 91.3 fL (80.0-94.0); Mean Platelet Volume 9.4 fL (9.5-13.5); Monocytes Absolute Auto 0.5 10^3/uL (0.3-0.8); Monocytes Percent Auto 9.1 % (1.7-12.0); Neutrophils Percent Auto 51.3 % (43.0-75.0); Platelet Count 153 10^3/uL (150-450); Red Blood Count 4.38 10^6/uL (4.70-6.10); Red Cell Distribution Width 13.6 % (11.0-15.0); White Blood Count 5.8 10^3/uL (4.0-11.0)
--- NOTE | 2024-06-21 10:46 | CT_ITS ---
The [address] [address] Patient Name: TAJ RING MRN: [id number] date: 1945 Sex: M Assigned Patient Location: ER Current Patient Location: Accession/Order Number: [id number] Exam Date: 06/21/2024 10:50 Report Date: 06/21/2024 11:07 At the request of: PERNELL KENNEDY Procedure: CT head/brain wo con EXAMINATION: CT head/brain wo con HISTORY: syncope, ams COMPARISON: CT head 05/09/2016 TECHNIQUE: Axial CT images were obtained without IV contrast. Dose reduction techniques were achieved by using automated exposure control and/or adjustment of mA and/or kV according to patient size and/or use of iterative reconstruction technique. FINDINGS: BRAIN: No edema, hemorrhage, mass, acute infarction, or inappropriate atrophy. CSF SPACES: No hydrocephalus, subarachnoid hemorrhage, or mass. Appropriate for age. SKULL: No fracture, mass, or other significant visible lesion. SINUSES: No significant mucosal thickening or fluid on the limited views. ORBITS: No appreciable abnormality on the limited views. OTHER: Negative CT/CT head/brain wo con IMPRESSION: 1. No intracranial hemorrhage, mass, or suspicious abnormality. 2. Mild age consistent chronic changes. Electronically authenticated by: TYLER JAMES Date: 06/21/2024 11:07
--- NOTE | 2024-06-21 10:53 | PC.NURSE ---
patients girlfriend states he sat up in bed became dizzy and passed out. Girlfriend states she could not wake him up and called 911. Girlfriend also states that he just doesn't seem like his self .
[2024-06-21 11:02] LABS: Influenza Virus A Antigen Negative
[2024-06-21 11:02] LABS: Alanine Aminotransferase 33 U/L (16-63); Albumin Level 3.2 g/dL (3.4-5.0); Alkaline Phosphatase 82 U/L (46-116); Anion Gap 9.2; Aspartate Amino Transferase 19 U/L (15-37); BUN Creatinine Ratio 7.4; Bilirubin Total 0.8 mg/dL (0.2-1.0); Calcium 8.2 mg/dL (8.5-10.1); Carbon Dioxide 27.3 mmol/L (21.0-32.0); Chloride 107 mmol/L (98-107); Estimated GFR (African America 46 (>=60 mL/min/1.73m^2); Estimated GFR (Non-African Ame 38 (>=60 mL/min/1.73m^2); Globulin 3.3 g/dL; Glucose 102 mg/dL (74-106); Potassium 4.5 mmol/L (3.5-5.1); Sodium 139 mmol/L (136-145); Total Protein 6.5 g/dL (6.4-8.2)
[2024-06-21 11:03] LABS: Influenza Virus B Antigen Negative; Internal Control Within Normal Limits; SARS-CoV-2 Ag NEGATIVE (NEGATIVE)
[2024-06-21 11:04] LABS: Troponin I High Sensitivity 5.5 pg/mL (4.0-76.1)
[2024-06-21 11:05] LABS: Lactate/Lactic Acid 0.7 mmol/L (0.4-2.0)
--- NOTE | 2024-06-21 11:37 | CA_ITS ---
Patient Name: TAJ RING MR#: [id number] : 1945 Exam Date: 06/21/2024 Ordering Doctor: Shaikh Geneva Suarez . ECHOCARDIOGRAM REPORT PROCEDURE: CA ECHO DOPPLER COMPLETE INDICATIONS: Syncope COMPARISON: None. DESCRIPTION: COMPLETE ECHOCARDIOGRAM Real-time transthoracic echocardiography with 2D, M-mode, spectral and color flow Doppler performed. QUALITY: Technical quality was good. LEFT VENTRICLE: Normal chamber size. Borderline left ventricular hypertrophy. LV EF: Global left ventricular systolic function is normal. Calculated left ventricular ejection fraction is 58%. No significant wall motion abnormalities. DIASTOLIC: Diastolic function is indeterminate. ATRIAL SEPTUM: Inadequately seen. LEFT ATRIUM: Mild dilatation. RIGHT ATRIUM: Mild dilatation. RIGHT VENTRICLE: Normal chamber size. Normal right ventricular systolic function. TRICUSPID VALVE: Normal mobility and thickness. No stenosis with trivial regurgitation. No evidence of pulmonary hypertension. RVSP 24mmHg MITRAL VALVE: Normal mobility and thickness. No evidence of mitral valve stenosis. There is no mitral annular calcification. Trivial mitral regurgitation. AORTIC VALVE: Normal trileaflet appearance. No visible sclerosis. Normal leaflet mobility. No evidence of aortic valve stenosis. Trivial aortic regurgitation. AORTIC ROOT: Normal diameter and appearance. PULMONIC VALVE: Normal thickness and mobility. No stenosis. Trivial regurgitation. PERICARDIUM: No evidence of pericardial effusion. IVC: Not well visualized. CONCLUSION: 1. Global left ventricular systolic function is normal; visually estimated ejection fraction is 55 to 60% 2. Normal right ventricular size and systolic function 3. Borderline left ventricular hypertrophy 4. Biatrial dilatation 5. No significant valvular abnormalities Adult Echocardiography Procedure Report Left Ventricle LVEDD (3.7 - 5.6 cm): 4.24 cm LVESD (2.2 - 4.0 cm): 2.81 cm LVIVS thickness (0.6 - 1.2 cm): 1.23 cm LVPW thickness (0.5 - 1.0 cm): 9.35 mm e': E - e': LVOT Max Gradient: 3 mm[Hg] LVOT Area (cm2): Peak Velocity (LVOT): 85.50 cm/s Mean Velocity (LVOT): 55.00 cm/s LVOT Diameter 2.10 cm Left Ventricular Ejection Fraction: 62.90 % Left Atrium LA Volume Index (2D A2C): 03382 mm3 Left Atrium Systolic Dimension: 3.80 cm Mitral Valve MV E to A Ratio: 0.90 MV Max Gradient: MV Mean Gradient: Mitral Valve A-Wave Peak Velocity: 78.00 cm/s Mitral Valve E-Wave Peak Velocity: 67.60 cm/s Cardiovascular Orifice Area: Right Ventricle RV Internal Diastolic Dimension: Aorta AO Root Diam: 3.50 cm Ascending Ao Diam: Aortic Valve AoV Area (Peak Raheem): 3.18 cm2 AoV Area (VTI): 2.59 cm2 Deceleration Roane: Pressure Half-Time: Peak Velocity(Antegrade Flow): 93.00 cm/s Peak Gradient(Antegrade Flow): 3 mm[Hg] Mean Velocity(Antegrade Flow): 71.10 cm/s Mean Gradient(Antegrade Flow): 2 mm[Hg] Velocity Time Integral: 20.70 cm Tricuspid Valve Peak Velocity (Regurgitant Flow): 233.00 cm/s Peak Velocity: 50.80 cm/s Pulmonic Valve Mean Gradient: Mean Velocity: Peak Velocity: 108.00 cm/s, 122.00 cm/s Peak Gradient: 5 mm[Hg] Right Atrium Right Atrium Systolic Pressure: Dictated by: Sergio Steiner M.D. on 06/21/2024 at 16:41 Approved by: Sergio Steiner M.D. on 06/21/2024 at 16:45
--- OUTSIDE RECORDS SUMMARY | 2024-06-21 11:53 | XMS_ITS | CCD ---
Author Organization [place] [facility] Care Team Providers Care Administrative Office Specialist Name Role Phone DR MONO KNOWLES Attending Unavailable ESHA, DR FOREMAN Primary Care Unavailable DR MONO KNOWLES Admitting Unavailable Mono Knowles MD Unavailable [phone] Mono Knowles MD Primary Care Provider Mono Knowles MD Primary Care Provider [phone] GUME SON Attending Unavailable MONO KNOWLES Referring [...] source) Pneumovax 23 Drug allergy (disorder) [facility] (3 sources) Pneumococcal 20-Roselyn Conj Vacc Drug Intolerance 1 Swelling [facility] Healthcare Work Phone: (3 sources) Pneumococcal Vac Polyvalent Drug Allergy 1 [address] [facility] (6 sources) Streptococcus pneumoniae type 1 capsular [...] 23-ROSELYN PS VACCINE] Drug Allergy 1 Swelling [facility] Medications Current Medications Medication Drug Class(es) Dates Sig (Normalized) Sig (Original) acetaminophen 325 mg / HYDROcodone bitartrate 10 mg oral tablet (8 sources) Opioid Agonist Start: 10-06-2023 take 1 tablet by mouth every six hours for pain HYDROcodone-aceta minophen ([place]) 10-325 MG tablet Indications: Cervical stenosis of [...] (Zocor) 40 MG tablet Indications: 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3 % Normal [facility] Comment on above: Performed By: #### C BCA, PINR, 14182-6, 15067-8, BMP, 3040-3, LIVR, 70731-6, 42440-3 #### [facility] ([id number]) [address] [place] [address] 36895 Erythrocyte distribution width (RBC) [Ratio] 15.4 % High 11.5-15.0 [facility] Comment on above: Performed By: #### C BCA, PINR, 57552-5, 26423-4, BMP, 3040-3, LIVR, 63911-1, 86473-8 #### [facility] ([id number]) [address] [place] [address] 76580 Hematocrit (Bld) [Volume fraction] 42.1 % Normal 39-49 [facility] Comment on above: Performed By: #### C BCA, PINR, 47518-2, 18037-3, BMP, 3040-3, LIVR, 65292-3, 44015-5 #### [facility] ([id number]) [address] [place] [address] 80736 Hemoglobin (Bld) [Mass/Vol] 13.9 g/dL Normal 13.0-17.0 [facility] Comment on above: Performed By: #### C BCA, PINR, 02577-3, 55480-0, BMP, 3040-3, LIVR, 76959-3, 02224-8 #### [facility] ([id number]) [address] [place] [address] 71210 Lymphocytes (Bld) [#/Vol] 1.0 10*3/uL Normal 1.0-3.5 [facility] Comment on above: Performed By: #### C BCA, PINR, 03595-8, 62036-4, BMP, 3040-3, LIVR, 93638-3, 55499-9 #### [facility] ([id number]) [address] [place] [address] 56898 Lymphocytes/100 WBC (Bld) 13.2 % Normal [facility] Comment on above: Performed By: #### C BCA, PINR, 61724-5, 48521-4, BMP, 3040-3, LIVR, 19426-3, 97798-0 #### [facility] ([id number]) [address] [place] [address] 22507 MCH (RBC) [Entitic mass] 29.2 pg Normal 27-34 [facility] Comment on above: Performed By: #### C BCA, PINR, 72469-7, 18891-8, BMP, 3040-3, LIVR, 70792-7, 35672-8 #### [facility] ([id number]) [address] [place] [address] 84244 MCHC (RBC) [Mass/Vol] 33.1 g/dL Normal 32-36 [facility] Comment on above: Performed By: #### C BCA, PINR, 55636-2, 48519-6, BMP, 3040-3, LIVR, 49248-2, 21117-1 #### [facility] ([id number]) [address] [place] [address] 71184 MCV (RBC) [Entitic vol] 88 fL Normal 80-100 [facility] Comment on above: Performed By: #### C BCA, PINR, 11542-6, 49709-0, BMP, 3040-3, LIVR, 97335-1, 92394-1 #### [facility] ([id number]) [address] [place] [address] 62005 Monocytes (Bld) [#/Vol] 0.5 10*3/uL Normal 0-0.9 [facility] Comment on above: Performed By: #### C BCA, PINR, 26011-4, 21827-4, BMP, 3040-3, LIVR, 27588-9, 46302-3 #### [facility] ([id number]) [address] [place] [address] 39782 Monocytes/100 WBC (Bld) 6.6 % Normal [facility] Comment on above: Performed By: #### C BCA, PINR, 36191-7, 39519-6, BMP, 3040-3, LIVR, 14513-7, 77190-6 #### [facility] ([id number]) [address] [place] [address] 66822 Neutrophils (Bld) [#/Vol] 6.1 10*3/uL Normal 1.5-6.6 [facility] Comment on above: Performed By: #### C BCA, PINR, 61503-4, 32346-8, BMP, 3040-3, LIVR, 78175-0, 68472-8 #### [facility] ([id number]) [address] [place] [address] 24964 Platelet mean volume (Bld) [Entitic vol] 7.4 fL Normal 7-12 [facility] Comment on above: Performed By: #### C BCA, PINR, 45239-8, 13259-5, BMP, 3040-3, LIVR, 71869-9, 49170-6 #### [facility] ([id number]) [address] [place] [address] 34287 Platelets (Bld) [#/Vol] 134 10*3/uL Low 150-450 [facility] Comment on above: Performed By: #### C BCA, PINR, 94090-9, 40706-4, BMP, 3040-3, LIVR, 74995-9, 58056-1 #### [facility] ([id number]) [address] [place] [address] 72341 RBC COUNT 4.76 X10E12/L Normal 4.10-5.70 [facility] Comment on above: Performed By: #### C BCA, PINR, 94571-4, 44904-3, BMP, 3040-3, LIVR, 79443-1, 63582-7 #### [facility] ([id number]) [address] [place] [address] 51990 SEG NEUTROPHIL 78.9 % Normal [facility] Comment on above: Performed By: #### C BCA, PINR, 59257-8, 17458-8, BMP, 3040-3, LIVR, 66252-5, 45283-2 #### [facility] ([id number]) [address] [place] [address] 31671 WBC (Bld) [#/Vol] 7.7 10*3/uL Normal 4.0-11.0 [facility] Comment on above: Performed By: #### C BCA, PINR, 21424-3, 43422-2, BMP, 3040-3, LIVR, 99209-7, 51379-5 #### [facility] ([id number]) [address] [place] [address] 59215 COMPREHENSIVE METABOLIC PANE Reji 05-18-2024 Albumin [Mass/Vol] 3.9 g/dL Normal 3.2-5.3 [facility] Comment on above: Performed By: #### C BCA, PINR, 57719-7, 62763-7, BMP, 3040-3, LIVR, 86056-1, 72441-2 #### [facility] ([id number]) [address] [place] [address] 22814 ALP [Catalytic activity/Vol] 92 U/L Normal 39-130 [facility] Comment on above: Performed By: #### C BCA, PINR, 87948-1, 64241-4, BMP, 3040-3, LIVR, 94993-9, 08841-3 #### [facility] ([id number]) [address] [place] [address] 66189 ALT [Catalytic activity/Vol] 48 U/L High 0-40 [facility] Comment on above: Performed By: #### C BCA, PINR, 45018-9, 23039-9, BMP, 3040-3, LIVR, 64579-3, 41268-7 #### [facility] ([id number]) [address] [place] [address] 47485 Anion gap [Moles/Vol] 8 mmol/L Normal 5-15 [facility] Comment on above: Performed By: #### C BCA, PINR, 10184-0, 92760-6, BMP, 3040-3, LIVR, 13095-2, 16260-9 #### [facility] ([id number]) [address] [place] [address] 00680 AST [Catalytic activity/Vol] 29 U/L Normal 0-41 [facility] Comment on above: Performed By: #### C BCA, PINR, 53457-7, 39251-7, BMP, 3040-3, LIVR, 38600-9, 69962-5 #### [facility] ([id number]) [address] [place] [address] 09986 Bilirubin [Mass/Vol] 1.1 mg/dL Normal 0.3-1.2 [facility] Comment on above: Performed By: #### C BCA, PINR, 99121-3, 19311-9, BMP, 3040-3, LIVR, 89326-3, 84834-7 #### [facility] ([id number]) [address] [place] [address] 13446 Calcium [Mass/Vol] 8.4 mg/dL Low 8.5-10.5 [facility] Comment on above: Performed By: #### C BCA, PINR, 66481-1, 59013-5, BMP, 3040-3, LIVR, 95150-0, 84379-1 #### [facility] ([id number]) [address] [place] [address] 52451 Chloride [Moles/Vol] 103 mmol/L Normal 98-109 [facility] Comment on above: Performed By: #### C BCA, PINR, 51005-1, 15070-6, BMP, 3040-3, LIVR, 66947-9, 61228-6 #### [facility] ([id number]) [address] [place] [address] [place] [address] CO2 [Moles/Vol] 25 mmol/L Normal 22-32 [facility] Comment on above: Performed By: #### C BCA, PINR, 93136-8, 75030-2, BMP, 3040-3, LIVR, 99709-3, 32223-4 #### [facility] ([id number]) [address] [place] [address] 03003 Creatinine [Mass/Vol] 1.51 mg/dL High 0.70-1.20 [facility] Comment on above: Result Comment: METH OD TRACEABLE TO IDMS STANDARD Performed By: #### C BCA, PINR, 34363-4, 67076-9, BMP, 3040-3, LIVR, 06649-3, 36273-1 #### [facility] ([id number]) [address] [place] [address] 68943 GFR/1.73 sq M.predicted among non-blacks MDRD (S/P/Bld) [Vol rate/Area] 47 mL/min/{1.73_m2} Low >59 [facility] Comment on above: Result Comment: Reported eGFR is based on the CKD-EPI 2020 equation that does not use a race coefficient. Performed By: #### C BCA, PINR, 51183-0, 12258-7, BMP, 3040-3, LIVR, 13592-8, 79650-8 #### [facility] ([id number]) [address] [place] [address] 95881 Glucose [Mass/Vol] 97 mg/dL Normal 65-99 [facility] Comment on above: Performed By: #### C BCA, PINR, 75048-9, 48410-5, BMP, 3040-3, LIVR, 81329-9, 04791-0 #### [facility] ([id number]) [address] [place] [address] 38932 Potassium [Moles/Vol] 4.6 mmol/L Normal 3.5-5.0 [facility] Comment on above: Performed By: #### C BCA, PINR, 46522-8, 54738-1, BMP, 3040-3, LIVR, 18486-3, 79569-1 #### [facility] ([id number]) [address] [place] [address] 26299 Protein [Mass/Vol] 6.9 g/dL Normal 6.0-8.0 [facility] Comment on above: Performed By: #### C BCA, PINR, 78091-6, 22933-1, BMP, 3040-3, LIVR, 18644-1, 69937-7 #### [facility] ([id number]) [address] [place] [address] 02179 Sodium [Moles/Vol] 136 mmol/L Normal 134-146 [facility] Comment on above: Performed By: #### C BCA, PINR, 86473-0, 36663-5, BMP, 3040-3, LIVR, 83175-1, 64050-0 #### [facility] ([id number]) [address] [place] [address] 71093 Urea nitrogen [Mass/Vol] 29 mg/dL High 5-27 [facility] Comment on above: Performed By: #### C BCA, PINR, 36205-2, 71940-9, BMP, 3040-3, LIVR, 66288-2, 88287-3 #### [facility] ([id number]) [address] [place] [address] BRAIN WO CONTon CT BRAIN WO [...] Larsen MD on 05/18/2024 7:20 AM Normal [facility] CT CERVICAL SPINE WO CONTon 05-18-2024 [...] Horne MD on 05/18/2024 7:30 AM Normal [facility] Troponin I.cardiac High sens itivity method [Mass/Vol]on 05-18-2024 1 HOUR TROP I, HIGH SENSITIVITY 7 ng/L Normal <21 [facility] Comment on above: Performed By: #### C BCA, PINR, 60308-6, 30825-1, BMP, 3040-3, LIVR, 94204-3, 87249-2 #### [facility] ([id number]) [address] [place] [address], [place] [address] TROPONIN I, HIGH SENSITIVITY 7 ng/L Normal <21 [facility] Comment on above: Performed By: #### C BCA, PINR, 46543-2, 18062-0, BMP, 3040-3, LIVR, 98492-3, 85522-4 #### [facility] ([id number]) [address] [place] [address] 51036 URN MACROSCOPIC NURon 2023 BILIRUBIN VAHE Negative Normal NEG [facility] Comment on above: Performed By: #### C BCA, PINR, 55759-0, 67650-9, BMP, 3040-3, LIVR, 31742-9, 00121-4 #### [facility] ([id number]) [address] [place] [address] 63621 BLOOD/HGB VAHE Trace Abnormal NEG [facility] Comment on above: Performed By: #### C BCA, PINR, 92850-4, 84226-7, BMP, 3040-3, LIVR, 86155-6, 76915-4 #### [facility] ([id number]) [address] [place] [address] [place] [address] GLUCOSE VAHE Negative Normal NEG [facility] Comment on above: Performed By: #### C BCA, PINR, 34392-1, 45345-5, BMP, 3040-3, LIVR, 77766-6, 38324-7 #### [facility] ([id number]) [address] [place] [address] [place] [address] KETONES VAHE Negative Normal NEG [facility] Comment on above: Performed By: #### C BCA, PINR, 32732-5, 95479-1, BMP, 3040-3, LIVR, 74578-8, 90213-9 #### [facility] ([id number]) [address] [place] [address] 15863 LEUKOCYTE ESTERASE VAHE Negative Normal NEG [facility] Comment on above: Performed By: #### C BCA, PINR, 58490-3, 37982-4, BMP, 3040-3, LIVR, 35286-4, 24903-7 #### [facility] ([id number]) [address] [place] [address] 95455 NITRITE VAHE Negative Normal NEG [facility] Comment on above: Performed By: #### C BCA, PINR, 37825-2, 37049-5, BMP, 3040-3, LIVR, 58088-9, 09107-8 #### [facility] ([id number]) [address] [place] [address] 01129 PH VAHE 7.0 Normal 5.0-8.5 [facility] Comment on above: Performed By: #### C BCA, PINR, 77306-2, 22948-6, BMP, 3040-3, LIVR, 51625-0, 21196-6 #### [facility] ([id number]) [address] [place] [address] 28955 PROTEIN VAHE Negative Normal NEG [facility] Comment on above: Performed By: #### C BCA, PINR, 09330-3, 52109-8, BMP, 3040-3, LIVR, 06422-6, 51129-9 #### [facility] ([id number]) [address] [place] [address] 69652 SPECIFIC GRAVITY VAHE 1.020 Normal 1.003-1.035 [facility] Comment on above: Performed By: #### C BCA, PINR, 43771-0, 72940-9, BMP, 3040-3, LIVR, 12468-6, 23615-2 #### [facility] ([id number]) [address] [place] [address] 29469 UROBILINOGEN VAHE 0.2 eu/dL Normal <1.1 [facility] Comment on above: Performed By: #### C BCA, PINR, 12320-2, 51268-4, BMP, 3040-3, LIVR, 26450-9, 90831-7 #### [facility] ([id number]) [address] [place] [address] 40355 XR CHEST 1 VWon 05-18-2024 XR CHEST [...] Horne MD on 05/18/2024 7:31 AM Normal [facility] XR PELVIS 1 OR 2 VWSon [...] Horne MD on 05/18/2024 7:33 AM Normal [facility] XR CHEST 2 VWSon 05-10-2024 XR [...] Tejada MD on 05/10/2024 1:22 PM Normal [facility] BASIC METABOLIC PANLon 10-25 Anion gap [Moles/Vol] 5 mmol/L Normal 5-15 [facility] Comment on above: Performed By: #### C BCA, PINR, 48339-2, 37614-2, BMP, 3040-3, LIVR, 32516-4, 59449-9 #### [facility] ([id number]) [address] [place] [address] [place] [address] Calcium [Mass/Vol] 8.3 mg/dL Low 8.5-10.5 [facility] Comment on above: Performed By: #### C BCA, PINR, 34743-5, 39884-0, BMP, 3040-3, LIVR, 69879-4, 29181-9 #### [facility] ([id number]) [address] [place] [address] 17443 Chloride [Moles/Vol] 107 mmol/L Normal 98-109 [facility] Comment on above: Performed By: #### C BCA, PINR, 93214-5, 45015-7, BMP, 3040-3, LIVR, 90251-8, 43335-8 #### [facility] ([id number]) [address] [place] [address] 20804 CO2 [Moles/Vol] 25 mmol/L Normal 22-32 [facility] Comment on above: Performed By: #### C BCA, PINR, 21669-9, 35660-2, BMP, 3040-3, LIVR, 46858-6, 88642-2 #### [facility] ([id number]) [address] [place] [address] 18036 Creatinine [Mass/Vol] 1.42 mg/dL High 0.70-1.20 [facility] Comment on above: Result Comment: METH OD TRACEABLE TO IDMS STANDARD Performed By: #### C BCA, PINR, 76470-7, 08931-0, BMP, 3040-3, LIVR, 17919-1, 37359-7 #### [facility] ([id number]) [address] [place] [address] 19650 GFR/1.73 sq M.predicted among non-blacks MDRD (S/P/Bld) [Vol rate/Area] 51 mL/min/{1.73_m2} Low >59 [facility] Comment on above: Result Comment: Reported eGFR is based on the CKD-EPI 2020 equation that does not use a race coefficient. Performed By: #### C BCA, PINR, 65930-0, 88700-3, BMP, 3040-3, LIVR, 78764-8, 88491-3 #### [facility] ([id number]) [address] [place] [address] 25771 Glucose [Mass/Vol] 90 mg/dL Normal 65-99 [facility] Comment on above: Performed By: #### C BCA, PINR, 87233-1, 40774-4, BMP, 3040-3, LIVR, 14613-0, 18815-7 #### [facility] ([id number]) [address] [place] [address] 96985 Potassium [Moles/Vol] 4.3 mmol/L Normal 3.5-5.0 [facility] Comment on above: Performed By: #### C BCA, PINR, 22119-0, 58729-0, BMP, 3040-3, LIVR, 53218-8, 97979-0 #### [facility] ([id number]) [address] [place] [address] 40333 Sodium [Moles/Vol] 137 mmol/L Normal 134-146 [facility] Comment on above: Performed By: #### C BCA, PINR, 95731-8, 43905-3, BMP, 3040-3, LIVR, 19936-2, 78285-9 #### [facility] ([id number]) [address] [place] [address] 84829 Urea nitrogen [Mass/Vol] 17 mg/dL Normal 5-27 [facility] Comment on above: Performed By: #### C BCA, PINR, 60081-9, 85420-4, BMP, 3040-3, LIVR, 24122-3, 14094-0 #### [facility] ([id number]) [address] [place] [address] 05824 CBC AND AUTO DIFFon 10-25-19 24 ABSOLUTE BASOPHIL 0.1 X10E9/L Normal 0.0-0.2 [facility] Comment on above: Performed By: #### C BCA, PINR, 14367-6, 63666-6, BMP, 3040-3, LIVR, 81552-4, 82095-3 #### [facility] ([id number]) [address] [place] [address] 97754 ABSOLUTE NEUTROPHIL 3.1 X10E9/L Normal 1.5-6.6 [facility] Comment on above: Performed By: #### C BCA, PINR, 25526-4, 09269-9, BMP, 3040-3, LIVR, 84730-6, 11628-7 #### [facility] ([id number]) [address] [place] [address] 36990 Basophils/100 WBC (Bld) 1.0 % Normal [facility] Comment on above: Performed By: #### C BCA, PINR, 05675-4, 91080-9, BMP, 3040-3, LIVR, 36109-7, 12407-6 #### [facility] ([id number]) [address] [place] [address] 80572 Eosinophils (Bld) [#/Vol] 0.1 10*3/uL Normal 0.0-0.4 [facility] Comment on above: Performed By: #### C BCA, PINR, 24139-0, 96800-9, BMP, 3040-3, LIVR, 72373-5, 71770-0 #### [facility] ([id number]) [address] [place] [address] 55130 Eosinophils/100 WBC (Bld) 1.8 % Normal [facility] Comment on above: Performed By: #### C BCA, PINR, 25309-5, 92724-3, BMP, 3040-3, LIVR, 41016-8, 92574-0 #### [facility] ([id number]) [address] [place] [address] 03844 Erythrocyte distribution width (RBC) [Ratio] 14.8 % Normal 11.5-15.0 [facility] Comment on above: Performed By: #### C BCA, PINR, 50260-2, 01051-0, BMP, 3040-3, LIVR, 12114-4, 06225-9 #### [facility] ([id number]) [address] [place] [address] 07175 Hematocrit (Bld) [Volume fraction] 37.8 % Low 39-49 [facility] Comment on above: Performed By: #### C BCA, PINR, 85745-8, 43956-2, BMP, 3040-3, LIVR, 86024-4, 23445-8 #### [facility] ([id number]) [address] [place] [address] 16116 Hemoglobin (Bld) [Mass/Vol] 12.8 g/dL Low 13.0-17.0 [facility] Comment on above: Performed By: #### C BCA, PINR, 22706-0, 39878-2, BMP, 3040-3, LIVR, 75479-2, 56725-8 #### [facility] ([id number]) [address] [place] [address] 60215 Lymphocytes (Bld) [#/Vol] 1.6 10*3/uL Normal 1.0-3.5 [facility] Comment on above: Performed By: #### C BCA, PINR, 10354-7, 21012-5, BMP, 3040-3, LIVR, 50387-9, 74415-1 #### [facility] ([id number]) [address] [place] [address] 83637 Lymphocytes/100 WBC (Bld) 31.2 % Normal [facility] Comment on above: Performed By: #### C BCA, PINR, 79503-2, 05750-2, BMP, 3040-3, LIVR, 77126-6, 65124-8 #### [facility] ([id number]) [address] [place] [address] 59167 MCH (RBC) [Entitic mass] 29.7 pg Normal 27-34 [facility] Comment on above: Performed By: #### C BCA, PINR, 88173-7, 11508-2, BMP, 3040-3, LIVR, 63183-1, 78682-5 #### [facility] ([id number]) [address] [place] [address] 85736 MCHC (RBC) [Mass/Vol] 33.9 g/dL Normal 32-36 [facility] Comment on above: Performed By: #### C BCA, PINR, 50205-3, 55832-7, BMP, 3040-3, LIVR, 88610-5, 59608-8 #### [facility] ([id number]) [address] [place] [address] 00808 MCV (RBC) [Entitic vol] 88 fL Normal 80-100 [facility] Comment on above: Performed By: #### C BCA, PINR, 03673-0, 11421-6, BMP, 3040-3, LIVR, 54862-6, 59286-2 #### [facility] ([id number]) [address] [place] [address] 31005 Monocytes (Bld) [#/Vol] 0.4 10*3/uL Normal 0-0.9 [facility] Comment on above: Performed By: #### C BCA, PINR, 26655-2, 73528-0, BMP, 3040-3, LIVR, 59981-5, 31541-9 #### [facility] ([id number]) [address] [place] [address] 80546 Monocytes/100 WBC (Bld) 6.8 % Normal [facility] Comment on above: Performed By: #### C BCA, PINR, 34580-9, 01305-7, BMP, 3040-3, LIVR, 36534-8, 27733-3 #### [facility] ([id number]) [address] [place] [address] 76896 Neutrophils/100 WBC (Bld) 59.2 % Normal [facility] Comment on above: Performed By: #### C BCA, PINR, 41963-4, 80296-6, BMP, 3040-3, LIVR, 05196-6, 05671-3 #### [facility] ([id number]) [address] [place] [address] 56537 Platelet mean volume (Bld) [Entitic vol] 7.6 fL Normal 7-12 [facility] Comment on above: Performed By: #### C BCA, PINR, 93313-1, 66832-8, BMP, 3040-3, LIVR, 51181-8, 92534-7 #### [facility] ([id number]) [address] [place] [address] 18922 Platelets (Bld) [#/Vol] 146 10*3/uL Low 150-450 [facility] Comment on above: Performed By: #### C BCA, PINR, 96976-0, 07110-7, BMP, 3040-3, LIVR, 07617-0, 95573-7 #### [facility] ([id number]) [address] [place] [address] 00180 RBC COUNT 4.31 X10E12/L Normal 4.10-5.70 [facility] Comment on above: Performed By: #### C BCA, PINR, 79044-1, 57688-2, BMP, 3040-3, LIVR, 54196-4, 62337-3 #### [facility] ([id number]) [address] [place] [address] 04465 WBC (Bld) [#/Vol] 5.2 10*3/uL Normal 4.0-11.0 [facility] Comment on above: Performed By: #### C BCA, PINR, 17926-5, 47180-1, BMP, 3040-3, LIVR, 55147-7, 34706-0 #### [facility] ([id number]) [address] [place] [address], [place] [address] CT ABDOMEN AND PELVIS W CONT on [...] Tejada MD on 10/25/2023 2:27 PM Normal [facility] CT BRAIN WO CONTon CT BRAIN [...] Gonzáles MD on 10/25/2023 3:50 PM Normal [facility] LIPASEon 10-25-2023 Lipase [Catalytic activity/Vol] 24 U/L Normal 17-40 [facility] [facility] Comment on above: Performed By: #### C BCA, PINR, 84759-9, 91396-4, BMP, 3040-3, LIVR, 46187-7, 39860-2 #### [facility] ([id number]) [address] [place] [address] 98797 LIVER PANELon 10-25-2023 Albumin [Mass/Vol] 4.1 g/dL Normal 3.2-5.3 [facility] Comment on above: Performed By: #### C BCA, PINR, 42899-2, 94208-6, BMP, 3040-3, LIVR, 89919-2, 27766-9 #### [facility] ([id number]) [address] [place] [address] [place] [address] ALP [Catalytic activity/Vol] 75 U/L Normal 39-130 [facility] Comment on above: Performed By: #### C BCA, PINR, 40766-6, 65862-6, BMP, 3040-3, LIVR, 83735-0, 44011-3 #### [facility] ([id number]) [address] [place] [address] 92733 ALT [Catalytic activity/Vol] 20 U/L Normal 0-40 [facility] Comment on above: Performed By: #### C BCA, PINR, 45787-7, 91873-3, BMP, 3040-3, LIVR, 85332-4, 02186-0 #### [facility] ([id number]) [address] [place] [address] [place] [address] AST [Catalytic activity/Vol] 23 U/L Normal 0-41 [facility] Comment on above: Performed By: #### C BCA, PINR, 86419-4, 42624-8, BMP, 3040-3, LIVR, 41886-3, 12043-4 #### [facility] ([id number]) [address] [place] [address] 21744 Bilirubin [Mass/Vol] 1.1 mg/dL Normal 0.3-1.2 [facility] Comment on above: Performed By: #### C BCA, PINR, 77291-6, 56897-6, BMP, 3040-3, LIVR, 63688-7, 41640-6 #### [facility] ([id number]) [address] [place] [address] 91684 Bilirubin.direct [Mass/Vol] 0.2 mg/dL Normal 0.0-0.4 [facility] Comment on above: Performed By: #### C BCA, PINR, 01009-1, 40948-3, BMP, 3040-3, LIVR, 40759-0, 41032-4 #### [facility] ([id number]) [address] [place] [address] 39404 Protein [Mass/Vol] 6.5 g/dL Normal 6.0-8.0 [facility] Comment on above: Performed By: #### C BCA, PINR, 21490-1, 02598-0, BMP, 3040-3, LIVR, 76111-3, 94149-4 #### [facility] ([id number]) [address] [place] [address] 71836 Lactate (P scotty) [Moles/Vol]o n 10-25-2023 LACTATE W/REFLEX 0.6 mmol/L Normal 0.4-2.0 [facility] Comment on above: Result Comment: Result did not trigger repeat Lactate, re-order if needed. Performed By: #### C BCA, PINR, 66921-8, 85661-2, BMP, 3040-3, LIVR, 50798-0, 65571-0 #### [facility] ([id number]) [address] [place] [address] [place] [address] MAGNESIUMon 10-25-2023 Magnesium [Mass/Vol] 1.9 mg/dL Normal 1.8-2.6 [facility] Comment on above: Performed By: #### C BCA, PINR, 98288-9, 58526-1, BMP, 3040-3, LIVR, 15105-2, 62102-6 #### [facility] ([id number]) [address] [place] [address] 80959 PROTIME AND INRon 10-25-2023 INR Coag (PPP) [Relative time] 1.1 {INR} Normal 0.8-1.1 [facility] Comment on above: Performed By: #### C BCA, PINR, 44260-5, 24959-4, BMP, 3040-3, LIVR, 85687-3, 52294-5 #### [facility] ([id number]) [address] [place] [address] 06779 PT Coag (PPP) [Time] 12.5 s Normal 9.8-13.2 [facility] Comment on above: Result Comment: NEW REFERENCE RANGE Performed By: #### C BCA, PINR, 67165-2, 26452-5, BMP, 3040-3, LIVR, 27850-5, 72608-9 #### [facility] ([id number]) [address] [place] [address] 29634 TROPONIN Ion 10-25-2023 Troponin I.cardiac [Mass/Vol] ng/mL Normal 0.00-0.04 [facility] Comment on above: Performed By: #### C BCA, PINR, 36115-9, 20077-2, BMP, 3040-3, LIVR, 98698-6, 28926-5 #### [facility] ([id number]) [address] [place] [address] 46876 URINE CULTUREon 10-25-2023 Bacteria identified Cx Nom (U) CULTURE RESULTS <10,000 ORGANISMS/ML NORMAL URO GENITAL TERESA Normal [facility] Comment on above: Performed By: #### C BCA, PINR, 90767-8, 63688-2, BMP, 3040-3, LIVR, 05817-5, 40906-5 #### [facility] ([id number]) [address] [place] [address] 37007 XR CHEST 1 VWon 10-25-2023 XR CHEST 1 VW XR CHEST 1 VW XR CHEST 1 VW IMPRESSION: cough/weakness. Comparison 06/20/21. No acute cardiopulmonary disease. Low lung volumes with mild elevation of the right hemidiaphragm. Finalized by Lance Gonzáles MD on 10/25/2023 3:43 PM Normal [facility] aPTT Coag (PPP) [Time]on aPTT Coag (Bld) [Time] 31 s Normal 26-37 [facility] Comment on above: Result Comment: NEW REFERENCE RANGE Performed By: #### C BCA, PINR, 65059-7, 49581-6, BMP, 3040-3, LIVR, 71162-2, 63930-7 #### [facility] ([id number]) [address] [place] [address] 88400 XR FEMUR 2+ VW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 (CMS/HCC) Stented [...] Essential hypertension, benign 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 documented in this [facility] on filedocumented in this encounter [facility]ructionsNot on filedocumented in this encounter [facility]ructions[facility] on filedocumented in this encounter [facility] Summary Purpose Family History No Family History [...] and content) DATE CREATED AUTHOR 02/08/2021 [facility] DATE CREATED AUTHOR AUTHOR'S ORGANIZ ATION 10/08/2021 [facility] DATE CREATED AUTHOR AUTHOR'S ORGANIZ ATION 05/14/[address] [facility] dical Specialist DATE CREATED AUTHOR AUTHOR'S ORGANIZ ATION 05/19/2024 [facility] DATE CREATED AUTHOR AUTHOR'S ORGANIZ ATION 05/26/[address] [facility] dical Specialists EPIC Care Teams (unrecognized sec tion and content) Administrative Office Specialist Relationship Specialty Start Date End Date Mono Knowles MD [address] [facility] [address] [place] [address] PCP - Jonathan FLORES 09/13/21 Mono Knowles MD [address] [facility] [address] [place] [address] PCP - General Internal Medicine 03/01/23 Administrative Office Specialist Relationship Specialty Start Date End Date Mono Knowles MD [address] [facility] [address] [place] [address] PCP - Jonathan FLORES 09/13/21 Mono Knowles MD [address] [facility] [address] [place] [address] PCP - General Internal Medicine 03/01/23 Administrative Office Specialist Relationship Specialty Start Date End Date Mono Knowles MD [address] [place] [id number] PCP - General 10/25/23 Administrative Office Specialist Relationship Specialty Start Date End Date Mono Knowles MD [address] [place] [phone] PCP - General 10/25/23 Administrative Office Specialist Relationship Specialty Start Date End Date Mono Knowles MD [address], [address] [place] [id number] PCP - General 10/25/23 Reason for Visit [...] BE BASED ON THE PRIMARY CLINICAL RECORDS. [email or web address] provides no warranty or guarantee of the accuracy or completeness of information in this document.
[2024-06-21] MEDS: LACTATED RINGER'S SOLUTION 1,000 ML 125 ML IV ×2 (12:51→21:18)
[2024-06-21] MEDS: HEPARIN SODIUM (PORCINE) 5,000 UNIT/ML VIAL 5000 UNIT SUBQ ×2 (13:27→21:16)
--- NOTE | 2024-06-21 14:13 | MR_ITS ---
The [address] [address] Patient Name: TAJ RING MRN: [id number] date: 1945 Sex: M Assigned Patient Location: [place] Current Patient Location: [place] Accession/Order Number: [id number] Exam Date: 06/21/2024 15:10 Report Date: 06/21/2024 16:37 At the request of: SHAIKH TONE Procedure: MR head/brain wo con MRI BRAIN WITHOUT CONTRAST. INDICATION: CVA. COMPARISON: None available. TECHNIQUE: MR imaging of the brain using the following unenhanced sequences: Axial diffusion, axial FLAIR, axial T2 weighted, coronal and sagittal T1, coronal gradient-echo T2. FINDINGS: EXTRA-AXIAL SPACE:Age appropriate ventricles. No extra-axial collection. CEREBRUM: There are T2/FLAIR hyperintense signal changes in the periventricular and deep white matter, which is nonspecific but likely reflective of chronic microvascular ischemic disease. No areas of restricted diffusion. No acute infarct, hemorrhage or mass. CEREBELLUM: No signal abnormality. No areas of restricted diffusion. No acute infarct, hemorrhage or mass. BRAINSTEM: No signal abnormality. No areas of restricted diffusion. No acute infarct, hemorrhage or mass. EXTRACRANIAL STRUCTURES:Paranasal sinuses are clear. Mastoid air cells are clear. Globes and orbits are normal. Normal pituitary gland. Normal calvarium. MR/MR head/brain wo con IMPRESSION: 1. No acute intracranial abnormality. No acute infarct or hemorrhage. 2. Mild chronic microvascular ischemic changes. Electronically authenticated by: SKYLER PAPPAS Date: 06/21/2024 16:37
--- NOTE | 2024-06-21 14:14 | PM.HP ---
HPI H&P: HPI History of Present Illness Chief complaint: SYNCOPE/ GENERAL WEAKNESS IRINA DEHYDRATION Narrative: 78 y o male with hx of seizure disorder (taken off of AED 15 years ago), CAD s/p PCI presented to ED with syncopal episode. Patient reports getting Flu/Covid shot at the same time about a month ago and since then he has felt generalized weakness and intermittent lightheadedness. He denies cough, fever, SOB, palpitations, nausea, vomiting, abdominal pain or any urinary symptoms. He reports sitting on his couch when he felt that very lightheaded and weak and called his for help and then he passed out while in his cough. He was regaining consciousness as the EMS arrived and evaluated him. His BP was low in 80s as per the patient and EMS reports. He was brought over to ED for further evaluation. Work up in ED has so far been unremarkable with no acute/sig finding on CTH, CBC/CMP. His EKG did not reveal any sig changes and his troponin is negative. Patient reports what sounds like expressive aphasia after regaining consciousness and that he could not form words until he arrived in ED. 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 He can't recall the name of the medication he was using for seizures. He currently has no symptoms to offer other than feeling weak and tired. Opioid HPI Opioid Management Most Recent Pain and Opioid Data: Last Pain Scale 7 06/21/24 12:00 Last Pain Assessment 06/21/24 13:39 Last ORT Total Score 0 06/21/24 12:00 Last ORT Risk Category Low Risk 06/21/24 12:00 Review of Systems ROS Status of ROS 10 or more systems reviewed and unremarkable except as noted in history and below [facility] Medical History (Updated 06/21/24 @ 14:23 by Shaikh Erick MD) CKD stage 3a, GFR 45-59 ml/min ?N18.31 - Chronic kidney disease, stage 3a (ICD-10) Seizure disorder ?G40.909 - Epilepsy, unspecified, not intractable, without status epilepticus (ICD-10) CAD (coronary artery disease) ?I25.10 - Atherosclerotic heart disease of [place] coronary artery without angina pectoris (ICD-10) HTN (hypertension) ?I10 - Essential (primary) hypertension (ICD-10) Surgical History (Updated 06/07/24 @ 11:00 by Faina Lamar) H/O heart artery stent ?Z95.5 - Presence of coronary angioplasty implant and graft (ICD-10) Social History (Updated 06/21/24 @ 14:21 by Shaikh Erick MD) Within the past year, how often did you have a drink containing alcohol: never Within the past year, how often did you have six or more drinks on one occasion: never Score interpretation: A score less than 4 is consistent with normal alcohol consumption. Smoking status: Former smoker Non-prescribed substance use: denies use Previous occupational history: Retired from [employer]. Highest level of school completed/degree received: 12th grade, no diploma Do you want help with school or training: No Are you now , , , , never or living with a partner: In a typical week, how many times do you talk on the telephone with family, friends, or neighbors: 3 or more times per week How often do you get together with friends or relatives: 3 or more times per week How often do you attend mandaen or rastafari services: 1-3 times per year Do you belong to any clubs or organizations such as mandaen groups unions, fraternal or athletic groups, or school groups: no Total score: 1 Score interpretation: A score of less than or equal to 1 indicates the most socially isolated. Little interest or pleasure in doing things: not at all Feeling down, depressed, or hopeless: not at all Feel stressed/tense/nervous/anxious/difficulty sleeping: not at all Due to disability, difficulty making decisions: No Do you think of yourself as: straight/heterosexual Gender Identity: male Meds Home Medications and Allergies Home Medications ?Medication ?Instructions ?Recorded ?Confirmed ?Type pantoprazole 40 mg tablet,delayed 40 mg PO DAILY #30 tabs 10/24/23 06/21/24 Rx release (Protonix) allopurinol 100 mg tablet 100 mg PO DAILY 06/21/24 06/21/24 History carvedilol 25 mg tablet 25 mg PO BID 06/21/24 06/21/24 History colchicine 0.6 mg capsule 0.6 mg PO MOWEFR@06/21/24 06/21/24 History gabapentin 300 mg capsule 300 mg PO .QHS 06/21/24 06/21/24 History hydrocodone 10 mg-acetaminophen 1 tab PO Q6H PRN pain 06/21/24 06/21/24 History 325 mg tablet meclizine 25 mg tablet 25 mg PO TID PRN dizziness 06/21/24 06/21/24 History simvastatin 40 mg tablet 40 mg PO .QHS 06/21/24 06/21/24 History sucralfate 1 gram tablet 1 g PO TID 06/21/24 06/21/24 History Allergies Allergy/AdvReac Type Severity Reaction Status Date / Time No Known Drug Allergies Allergy Verified 06/21/24 10:17 Exam Constitutional Vital Signs, click to edit/add: Last Vital Signs Temp 97.4 F L 06/21/24 12:00 Pulse 63 06/21/24 14:00 Resp 16 06/21/24 12:00 BP 119/76 06/21/24 12:00 Pulse Ox 97 06/21/24 12:00 O2 Del Method Room Air 06/21/24 12:00 Documenting provider has reviewed patient's vital signs: yes Common normals: no apparent distress and oriented x3 General appearance: cooperative [facility] Common normals: normocephalic and head/scalp atraumatic Head and scalp: normocephalic and atraumatic Eye Common normals: conjunctivae normal and no scleral icterus Conjunctiva: conjunctiva(e) normal Respiratory Common normals: normal respiratory effort and clear to auscultation bilaterally Effort & inspection: able to speak in complete sentences Auscultation: clear to auscultation bilaterally Cardio Common normals: regular rate, S1 normal heart sound and S2 normal heart sound Rate: regular rate Heart sounds: S1 normal and S2 normal GI Common normals: Normal to inspection, nondistended, normoactive bowel sounds present, soft to palpation, non-tender and no hepatosplenomegaly Palpation: soft and no hepatosplenomegaly Extremity Common normals: no clubbing, cyanosis or edema Neuro Common normals: oriented x3, moves all extremities and no focal motor deficits Psych Common normals: mental status grossly normal, denies hallucinations, denies homicidal ideation and denies suicidal ideation Results Labs Labs: Short CBC 06/21/24 Range/Units 10:29 WBC 5.8 (4.0-11.0) 10^3/uL Hgb 12.9 L (14.0-18.0) g/dL Hct 40.0 L (42.0-54.0) % Plt Count 153 (150-450) 10^3/uL BMP 06/21/24 10:29 Sodium 139 Potassium 4.5 Chloride 107 Carbon Dioxide 27.3 BUN 13.0 Creatinine 1.76 H Glucose 102 Calcium 8.2 L Liver Function 06/21/24 Range/Units 10:29 Total Bilirubin 0.8 (0.2-1.0) mg/dL AST 19 (15-37) U/L ALT 33 (16-63) U/L Alkaline Phosphatase 82 (46-116) U/L Albumin 3.2 L (3.4-5.0) g/dL Assessment and Plan Assessment and Plan (1) Suspected cerebrovascular accident (CVA): Assessment and Plan: Syncopal episode preceded by lightheadedness but upon regaining consciousness, patient reports expressive aphasia and mild confusion. Description of his syncopal episodes does not seem c/w vasovagal or cardiac syncope. I suspect either a break through seizure or acute ischemic CVA. CTH - did not reveal anything. MRI brain ordered to r/o acute ischemic CVA. (2) Syncope: Assessment and Plan: Syncope preceded by low BP but lasted for a few minutes at least and patient was confused/experienced aphasia after the episodes. Given the description of his presentation, I suspect this is likely neurogenic syncope - from either acute ischemic stroke or break through seizure. Monitor on tele. Ordered ECHO to r/o that patient has no sig cardiac structural abnormality. Trend troponin to ensure this was not a cardiac event. MRI ordered to r.o stroke Qualifiers: Syncope type: unspecified Qualified Code(s): R55 - Syncope and collapse (3) Seizure disorder: Assessment and Plan: Prior hx of seizures, not on any medication for over 15 years. Monitor closely. He will likely need outpatient neurology f/u and EEG. (4) CKD stage 3a, GFR 45-59 ml/min: Assessment and Plan: Renal fx more or less at baseline. Monitor. (5) CAD (coronary artery disease): Assessment and Plan: Trend troponins. No acute changes on EKG. CP free. Qualifiers: Coronary Disease-Associated Artery/Lesion type: [place] artery [place] vs. transplanted heart: [place] heart Associated angina: without angina Qualified Code(s): I25.10 - Atherosclerotic heart disease of [place] coronary artery without angina pectoris (6) HTN (hypertension): Assessment and Plan: Hold Coreg as patient was hypotensive when EMS Arrived. Monitor BP closely. Qualifiers: Hypertension type: primary hypertension Qualified Code(s): I10 - Essential (primary) hypertension
--- NOTE | 2024-06-21 15:03 | SWNOTE1 ---
MAKSIM has attempted to see pt 2x now. Once he was on the phone and then he was using the restroom. MAKSIM did see pt up ambulatory in hallways with therapy and he was not using any devices.
[2024-06-21 15:07] LABS: Troponin I High Sensitivity 6.8 pg/mL (4.0-76.1)
[2024-06-21] MEDS: OXYCODONE HCL 5 MG TABLET PO ×2 (16:44→22:49)
[2024-06-21] MEDS: ATORVASTATIN CALCIUM 20 MG TABLET PO (21:17)
[2024-06-21] MEDS: GABAPENTIN 300 MG CAPSULE PO (21:17)
[2024-06-21] MEDS: ZOLPIDEM TARTRATE 10 MG TABLET PO (22:49)
[2024-06-22] VITALS (10 sets, daily range): BP systolic 121–166; BP diastolic 79–100; PULSE 66–81; TEMP 36.3–36.6; O2SAT 94–95
[2024-06-22 06:18] LABS: Basophils Percent Auto 0.5 % (0.2-2.0); Eosinophils Absolute Auto 0.2 10^3/uL (0.0-0.7); Eosinophils Percent Auto 3.2 % (0.9-7.0); Hematocrit 40.1 % (42.0-54.0); Immature Granulocytes Abs Auto 0.07 10^3/uL (0.00-0.03); Immature Granulocytes Pct Auto 1.2 % (0.0-0.5); Lymphocytes Absolute Auto 2.6 10^3/uL (1.2-3.8); Lymphocytes Percent Auto 43.2 % (20.5-60.0); Mean Corpuscular HGB Conc 32.4 g/dL (29.9-35.2); Mean Corpuscular Volume 89.5 fL (80.0-94.0); Mean Platelet Volume 9.6 fL (9.5-13.5); Monocytes Absolute Auto 0.5 10^3/uL (0.3-0.8); Monocytes Percent Auto 8.1 % (1.7-12.0); Neutrophils Absolute Auto 2.6 10^3/uL (1.4-6.5); Neutrophils Percent Auto 43.8 % (43.0-75.0); Platelet Count 165 10^3/uL (150-450); Red Blood Count 4.48 10^6/uL (4.70-6.10); Red Cell Distribution Width 13.2 % (11.0-15.0); White Blood Count 5.9 10^3/uL (4.0-11.0)
[2024-06-22 06:28] LABS: Alanine Aminotransferase 28 U/L (16-63); Alkaline Phosphatase 83 U/L (46-116); Anion Gap 13.7; Aspartate Amino Transferase 20 U/L (15-37); BUN Creatinine Ratio 6.6; Bilirubin Total 0.8 mg/dL (0.2-1.0); Calcium 8.4 mg/dL (8.5-10.1); Carbon Dioxide 27.5 mmol/L (21.0-32.0); Chloride 102 mmol/L (98-107); Estimated GFR (African America 55 (>=60 mL/min/1.73m^2); Estimated GFR (Non-African Ame 45 (>=60 mL/min/1.73m^2); Globulin 3.1 g/dL; Glucose 89 mg/dL (74-106); Potassium 4.2 mmol/L (3.5-5.1); Sodium 139 mmol/L (136-145); Total Protein 6.1 g/dL (6.4-8.2)
[2024-06-22] MEDS: HEPARIN SODIUM (PORCINE) 5,000 UNIT/ML VIAL 5000 UNIT SUBQ (06:44)
[2024-06-22] MEDS: LACTATED RINGER'S SOLUTION 1,000 ML 125 ML IV (06:45)
[2024-06-22] MEDS: OMEPRAZOLE 20 MG CAPSULE.DR 40 MG PO (06:45)
[2024-06-22] MEDS: ALLOPURINOL 100 MG TABLET PO (08:31)
--- NOTE | 2024-06-22 09:39 | P.DS_ITS ---
DS: Providers Provider Date of admission: 06/21/24 11:46 Primary care physician: KELELN BALBUENA Admitting clinician: Shaikh Erick Attending physician on admission: Shaikh Erick Consults: 06/21/24 11:38 Occupational Therapy Eval and Treat Routine Reason for consultation: Ambulatory dysfunction/weakness Physical Therapy Eval and Treat Routine Reason for consultation: Ambulatory dysfunction/weakness Attending physician on discharge: Shaikh Erick Discharging clinician: Shaikh Erick Anticipated date of discharge: 06/22/24 DS: Diagnosis Discharge Diagnosis (1) Suspected cerebrovascular accident (CVA): (2) Syncope: Qualifiers: Syncope type: unspecified Qualified Code(s): R55 - Syncope and collapse (3) Seizure disorder: (4) CKD stage 3a, GFR 45-59 ml/min: (5) CAD (coronary artery disease): Qualifiers: Coronary Disease-Associated Artery/Lesion type: enterprise artery [place] vs. transplanted heart: enterprise heart Associated angina: without angina Qualified Code(s): I25.10 - Atherosclerotic heart disease of enterprise coronary artery without angina pectoris (6) HTN (hypertension): Qualifiers: Hypertension type: primary hypertension Qualified Code(s): I10 - Essential (primary) hypertension DS: Summary Hospital Course Hospital Course: 78 y o male with hx of seizure disorder (taken off of AED 15 years ago), CAD s/p PCI presented to ED with syncopal episode. Patient reported generalized weakness, lightheaded since getting Flu/Covid shot about a month ago. On the day of admission, he was sitting on his couch when he felt that very lightheaded and weak and called his for help and then he passed out while in his couch. He lose consciousness for atleast 5 minutes and was regaining consciousness as the EMS arrived and evaluated him, he was noted to have low BP was low in 80s. He was brought over to ED for further evaluation. Patient was admitted for work up of Snycope. His EKG did not revealed any acute changes. Serial troponins were negative. ECHO did not reveal any sig structural abnormality. MRI was performed to r/o acute ischemic stroke as he reported confusion and expressive aphasia after regaining consciousness. Evaluated by PT/OT. Offered home health but patient refusing it. He subjectively feels well and better. Medically stable for discharge. He will benefit from outpatient evaluation by Neurology and evaluate him to ensure he does not need to be restarted on AEDs for possible break through seizure. Patient instructed to follow-up with PCP in 1-2 weeks Status at Discharge Functional status at discharge: independent ambulation Overall status at discharge: patient is back to baseline Time Spent with Patient Time attestation: Total time spent providing and/or coordinating discharge services: Time spent: greater than 30 minutes Exam Constitutional Vital Signs, click to edit/add: Last Vital Signs Temp 97.9 F 06/22/24 07:55 Pulse 70 06/22/24 08:34 Resp 12 06/22/24 07:55 BP 121/79 06/22/24 08:34 Pulse Ox 94 L 06/22/24 07:55 O2 Del Method Room Air 06/22/24 07:55 Documenting provider has reviewed patient's vital signs: yes Common normals: no apparent distress and oriented x3 General appearance: cooperative Respiratory Common normals: normal respiratory effort and clear to auscultation bilaterally Effort & inspection: able to speak in complete sentences Auscultation: clear to auscultation bilaterally Cardio Common normals: regular rate, S1 normal heart sound and S2 normal heart sound Rate: regular rate Heart sounds: S1 normal and S2 normal Extremity Common normals: no clubbing, cyanosis or edema Neuro Common normals: oriented x3, moves all extremities and no focal motor deficits Psych Common normals: mental status grossly normal, denies hallucinations, denies homicidal ideation and denies suicidal ideation DS: Data Data Completed and Pending Labs on day of discharge: Labs from last 24 hours 06/22/24 06/21/24 06/21/24 05:48 14:38 10:44 WBC 5.9 RBC 4.48 L Hgb 13.0 L Hct 40.1 L MCV 89.5 MCH 29.0 MCHC 32.4 RDW 13.2 Plt Count 165 MPV 9.6 Neut % (Auto) 43.8 Lymph % (Auto) 43.2 [place] % (Auto) 8.1 Eos % (Auto) 3.2 Baso % (Auto) 0.5 Neut # (Auto) 2.6 Lymph # (Auto) 2.6 [place] # (Auto) 0.5 Eos # (Auto) 0.2 Baso # (Auto) 0.0 Abs Immat Gran (auto) 0.07 H Imm/Tot Granulo (auto) 1.2 H Sodium 139 Potassium 4.2 Chloride 102 Carbon Dioxide 27.5 Anion Gap 13.7 BUN 10.0 Creatinine 1.51 H Est GFR ( Amer) 55 L Est GFR (Non-Af Amer) 45 L BUN/Creatinine Ratio 6.6 Glucose 89 Lactate Calcium 8.4 L Total Bilirubin 0.8 AST 20 ALT 28 Alkaline Phosphatase 83 Troponin I High Sens 6.8 Total Protein 6.1 L Albumin 3.0 L Globulin 3.1 Albumin/Globulin Ratio 1.0 Influenza Type A Ag Negative Influenza Type B Ag Negative SARS-CoV-2 Ag (CV2AG) Negative POC Glucose 06/21/24 06/21/24 10:29 10:28 WBC 5.8 RBC 4.38 L Hgb 12.9 L Hct 40.0 L MCV 91.3 MCH 29.5 MCHC 32.3 RDW 13.6 Plt Count 153 MPV 9.4 L Neut % (Auto) 51.3 Lymph % (Auto) 35.3 [place] % (Auto) 9.1 Eos % (Auto) 2.8 Baso % (Auto) 0.3 Neut # (Auto) 3.0 Lymph # (Auto) 2.1 [place] # (Auto) 0.5 Eos # (Auto) 0.2 Baso # (Auto) 0.0 Abs Immat Gran (auto) 0.07 H Imm/Tot Granulo (auto) 1.2 H Sodium 139 Potassium 4.5 Chloride 107 Carbon Dioxide 27.3 Anion Gap 9.2 BUN 13.0 Creatinine 1.76 H Est GFR ( Amer) 46 L Est GFR (Non-Af Amer) 38 L BUN/Creatinine Ratio 7.4 Glucose 102 Lactate 0.7 Calcium 8.2 L Total Bilirubin 0.8 AST 19 ALT 33 Alkaline Phosphatase 82 Troponin I High Sens 5.5 Total Protein 6.5 Albumin 3.2 L Globulin 3.3 Albumin/Globulin Ratio 1.0 Influenza Type A Ag Influenza Type B Ag SARS-CoV-2 Ag (CV2AG) POC Glucose 110 H Discharge Plan Discharge Disposition: Home, Self-Care Condition: Fair Discharge Medications: Continued pantoprazole [Protonix] 40 mg tablet,delayed release (DR/EC) 40 mg PO DAILY Qty: 30 0RF gabapentin 300 mg capsule 300 mg PO .QHS colchicine 0.6 mg capsule 0.6 mg PO [id number]@09 sucralfate 1 gram tablet 1 g PO TID simvastatin 40 mg tablet 40 mg PO .QHS allopurinol 100 mg tablet 100 mg PO DAILY carvedilol 25 mg tablet 25 mg PO BID meclizine 25 mg tablet 25 mg PO TID PRN (Reason: dizziness) hydrocodone-acetaminophen 10-325 mg tablet 1 tab PO Q6H PRN (Reason: pain) zolpidem 10 mg tablet 10 mg PO .QHS Activity: increase activity as tolerated Diet: advance to your usual diet Print Language: Vietnamese Patient Instructions: Syncope (DC) Forms: Portal Instructions Follow Up Appointments: Follow up with Dr balbuena on [phone]
--- NOTE | 2024-06-22 09:48 | SWNOTE1 ---
SW met with pt to discuss dc needs. Pt's family and friend in room during assessment. Pt lives in an apartment complex in [place]. His friend lives there as well and she cooks for him and helps him with medications as well. Pt is independent and does not use any DME. Pt has no concerns about discharge at this time. Medicare Outpatient Observation Notice reviewed and discussed with patient. Pt. verbalized understanding and signed the form. Original given to patient and copy placed in patient?s chart.
--- NOTE | 2024-06-22 10:44 | CM.NOTE ---
Rounds made with Dr. Suarez. Dr. Suarez discussed MRI and echo results and plan is for discharge today with recommendation of following up with neurologist as outpatient due to possible seizure activity. Hakeem verbalized understanding. Plan is for discharge today.
== END 2024-06-22 11:28 | disposition home or self-care (01) ==
LOC: ER 10:49 → MS 11:50
PROVIDERS: Admitting Provider Internal Medicine; Emergency Provider Emergency Medicine; PCP Internal Medicine; Visit Provider Internal Medicine
DX: R55 Syncope and collapse (principal); R41.0 Disorientation, unspecified; R47.01 Aphasia; I25.10 Atherosclerotic heart disease of native coronary artery without angina pectoris; G40.909 Epilepsy, unspecified, not intractable, without status epilepticus; N18.31 Chronic kidney disease, stage 3a; I12.9 Hypertensive chronic kidney disease with stage 1 through stage 4 chronic kidney disease, or unspecified chronic kidney disease; Z87.891 Personal history of nicotine dependence; Z20.822 Contact with and (suspected) exposure to COVID-19
CPT/HCPCS: 36415; 70450; 70551; 71045; 80053; 82948; 83605; 84484; 85025; 87040; 87804; 87811; 93005; 93306; 94761; 96360; 96361; 96372; 97162; 97165; 99285; G0378; J1644

== ENCOUNTER 2024-07-10 08:09 | Outpatient (OUT) | payer MEDICARE, MEDICAID, SELFPAY ==
--- NOTE | 2024-07-10 | PCN_ITS ---
CARDIAC STRESS TEST Requesting Physician: Procedure Date: 07/10/2024 INDICATION: Chest discomfort, syncope. METHODS: After risks, benefits and alternatives were explained, written informed consent was obtained. The patient was brought to the stress lab in a resting and fasting state. He underwent a Lexiscan pharmacological stress test. Technetium Cardiolite was injected for rest and stress images per protocol. He was transferred to the Nuclear Department for imaging. There were no complications. STRESS TEST INFORMATION: The patient received 0.4 mg of IV Lexiscan. His resting heart rate was 61 beats per minute, increasing to a maximum of 80 beats per minute. Resting blood pressure was 130/84 with a maximum blood pressure of 138/82. There were no overt symptoms. ELECTROCARDIOGRAPHY: Rest EKG: Normal sinus rhythm, incomplete right bundle branch block, left axis deviation, possible inferior infarct age indeterminate. Abnormal resting EKG. During infusion and recovery: No significant ST-T wave changes noted. No significant arrhythmias seen. FINAL IMPRESSION: 1. No ischemic EKG changes seen on Lexiscan pharmacological stress test. 2. Nuclear images are to read, interpreted and reported in a separate dictation. [facility]
--- NOTE | 2024-07-10 07:50 | NM_ITS ---
Patient Name: TAJ RING MR#: [id number] : 1945 Exam Date: 07/10/2024 Ordering Doctor: DR KELLEN BALBUENA M.D. RADIOLOGY REPORT PROCEDURE: NM JACOB PERF SPECT REST STR COMPARISON: None. INDICATIONS: CHEST PAIN TECHNIQUE: Exam Description: Stress/Rest one day protocol gated SPECT Rest Imagin.0 mCi Tc-99m Cardiolite IV on 07/10/2024 Stress Imaging 30.1 mCi Tc-99m Cardiolite IV on 07/10/2024 Exercise Protocol: 0.4 mg Lexiscan given IV Heart Rate (bpm): Rest: 61 Max: 80 PMHR: 55 Blood Pressure: Rest: 130/84 Max: 138/82 Symptoms: Rest and peak stress ECG findings were normal and the exercise portion of the study was normal per attending physician Dr. Steiner . For more details please see separate cardiac stress test report. FINDINGS: QUALITY OF STUDY: Excellent. PERFUSION DEFECT: LOCATION: Basal inferior. Mid-inferior. Apical inferior. SIZE: Medium (3-4 segments). SEVERITY: Mild. TYPE: Persistent. WALL MOTION: Mild hypokinesis: Inferior wall. LV SIZE: Normal. 75 mL. TID / TCD: None; 0.9 LVEF: Normal. Calculated EF 61%. SUMMARY: Myocardial perfusion imaging study has ABNORMAL findings. CONCLUSION: 1. No acute or reversible ischemia. 2. Mildly decreased radiotracer activity within, and motion of, the inferior wall. This may represent mildly decreased perfusion or diaphragm attenuation artifact. 3. Normal left ventricle size and ejection fraction. Dictated by: Eduardo Schmidt M.D. on 07/11/2024 at 15:35 Approved by: Eduardo Schmidt M.D. on 07/11/2024 at 15:48
--- OUTSIDE RECORDS SUMMARY | 2024-07-10 08:18 | XMS_ITS | CCD ---
Author Organization [facility] Care Team Providers Care [employer] Worker Name Role Phone DR MONO KNOWLES Attending Unavailable ESHA, DR FOREMAN Primary Care Unavailable ESHA, DR FOREMAN Admitting Unavailable Mono Knowles MD Unavailable [phone] Mono Knowles MD Primary Care Provider [phone] Mono Knowles MD Primary Care Provider GUME SON Attending Unavailable MONO KNOWLES Referring Unavailable MONO KNOWLES Primary Care Unavailable MONO KNOWLES Referring Unavailable ESHA MONO B Primary Care Unavailable ESHA MONO B Primary Care Unavailable JOMAR SCHWARTZ A Attending Unavailable PARKJOMAR A Attending Unavailable PARK JOMAR A Referring Unavailable KNOWLES, MONO B Primary Care Unavailable KNOWLES, MONO B Primary Care Unavailable DMITRY, RYLAN T Attending Unavailable DMITRY, RYLAN T Attending Unavailable DMITRY, RYLAN T Referring Unavailable KNOWLES, MONO B Primary Care Unavailable DMITRY, RYLAN T Attending Unavailable DMITRY, RYLAN T Referring Unavailable KNOWLES, MONO B Primary Care Unavailable DMITRY, RYLAN T Attending Unavailable DMITRY, RYLAN T Referring Unavailable KNOWLES, MONO B Primary Care Unavailable KNOWLES, MONO B Attending Unavailable ESHA MONO B Attending Unavailable MONO KNOWLES B Attending Unavailable KNOWLES, MONO B Attending Unavailable MONO KNOWLES B Attending Unavailable VERONICA THORNTON Attending Unavailable MONO KNOWLES Attending Unavailable Allergies Allergy Classification Reported Allergen(s) Allergy Type Date of Onset Reaction(s) Facility Unclassified (1 source) Pneumovax 23 Drug allergy (disorder) [facility] (8 sources) Pneumococcal 20-Roselyn Conj Vacc Drug Intolerance 1 Swelling [facility] Work Phone: (8 sources) Pneumococcal Vac Polyvalent Drug Allergy 1 Swelling [facility] (6 sources) Streptococcus pneumoniae [...] 23-ROSELYN PS VACCINE] Drug Allergy 1 Swelling [facility] Medications Current Medications Medication Drug Class(es) Dates Sig (Normalized) Sig (Original) acetaminophen 325 mg / HYDROcodone bitartrate 10 mg oral tablet (13 sources) Opioid Agonist Start: 05-24-2024 End: 06-22-2024 take 1 tablet by mouth every six hours for pain HYDROcodone-aceta minophen ([place]) 10-325 MG tablet Indications: Cervical stenosis of spinal canal Take 1 tablet by mouth every 6 (six) hours if needed for severe pain 120 tablet 06/22/2024 Active Start: 10-06-2023 take 1 tablet by fatimah every six hours for pain HYDROcodone-acetaminophen ([place]) 10-325 MG tablet Indications: Cervical stenosis of spinal canal Take 1 tablet by mouth every 6 (six) hours if needed for severe pain 120 tablet 0 10/06/2023 Active Start: 01-14-2022 HYDROcodone-ac etaminophen (NORCO) 10-325 mg per tablet as needed. 0 01/14/2022 Active allopurinol 100 mg oral tablet (9 sources) Xanthine Oxidase Inhibitor Start: 02-08-2024 take 1 tablet by mouth once daily allopurinol (Zyloprim) 100 MG tablet Indications: Mixed hyperlipidemia (CMS/HCC) TAKE ONE TABLET BY MOUTH DAILY 100 tablet 3 02/08/2024 Active take 1 tablet by mouth in the mo rning allopurinoL (ZYLOPRIM) 100 mg tablet Take 1 tablet (100 mg total) by mouth in the morning. 0 Active ALPRAZolam 1 mg oral tablet (14 sources) Benzodiazepine Start: 03-03-2024 End: 06-29-2024 take 1 tablet by mouth in the morning ALPRAZolam (Xanax) 1 MG tablet Indications: Anxiety Take 1 tablet (1 mg) by mouth in the morning and 1 tablet (1 mg) before bedtime. 60 tablet 3 06/29/2024 Active Start: 09-30-2023 take 1 tablet by fatimah th every six hours as needed for anxiety [...] 0 Active amLODIPine 2.5 mg oral tablet (9 sources) Dihydropyridine Calcium Channel Antonia Start: 06-18-2023 take 1 tablet by mouth once daily amLODIPine (Norvasc) 2.5 MG tablet Indications: Benign essential hypertension (CMS/HCC) TAKE ONE TABLET BY MOUTH DAILY 90 tablet 3 06/18/2023 Active carvedilol 25 mg oral tablet (14 sources) alpha-Adrenergic Antonia, beta-Adrenergic Antonia Start: 07-23-2022 End: 10-28-2023 take 1 tablet by mouth in the morning carvedilol (Coreg) 25 MG tablet Take 25 mg by mouth in the morning and 25 mg in the evening. 07/23/2022 Active clopidogrel 75 mg oral tablet (13 sources) P2Y12 Platelet Inhibitor Start: 09-10-2019 take 1 tablet by mouth once daily clopidogrel (Plavix) 75 MG tablet Indications: Mixed hyperlipidemia (CMS/HCC) TAKE ONE TABLET BY MOUTH DAILY 100 tablet 3 10/04/2023 Active colchicine 0.6 mg oral capsule (8 [...] Quadrivalent syringe gabapentin 300 mg oral capsule (10 sources) Anti-epileptic Agent Start: 07-26-2023 End: 06-26-2025 take 1 capsule by mouth at bedtime gabapentin (Neurontin) 300 MG capsule Indications: Pain of right thigh , Lumbar herniated disc , Right lumbar radiculopathy Take 1 capsule (300 mg) by mouth at bedtime 90 capsule 3 06/26/2024 06/26/2025 Active linaclotide 0.072 mg oral capsule (8 sources) Guanylate Cyclase-C Agonist Start: 03-21-2024 Linzess 72 MCG capsule 03/21/2024 Active Start: 03-25-2023 take 1 capsule by mo uth before mealtime linaCLOtide (Linzess) 72 MCG capsule Indications: Drug induced constipation Take 1 capsule (72 mcg) by mouth in the morning. Take before meals. 30 capsule 5 03/25/2023 Active Magnesium (8 sources) magnesium 250 MG tablet 1 (one) time each day at the same time. Active magnesium 250 MG tablet 1 (one) time each day at the same time. 0 Active meclizine hydrochloride 25 mg oral tablet (6 sources) Antiemetic Start: 06-26-2024 take 1 tablet by mouth three times daily as needed for dizziness meclizine (Antivert) 25 MG tablet Indications: Vertigo Take 1 tablet (25 mg) by mouth 3 (three) times a day as needed for dizziness 60 tablet 3 06/26/2024 Active Start: 06-26-2024 take 1 tablet by fatimah th three times daily as needed for dizziness meclizine (Antivert) 25 MG tablet Indications: Vertigo Take 1 tablet (25 mg) by mouth 3 (three) times a day as needed for dizziness 60 tablet 3 06/26/2024 Active Start: 05-18-2024 End: 06-26-2024 take 1 tablet by mouth three times daily as needed meclizine (Antivert) 25 MG tablet Take 25 mg by mouth 3 (three) times a day as needed 05/18/2024 06/26/2024 Discontinued (Reorder) nitroglycerin 0.4 mg sublingual tablet (8 sources) Nitrate Vasodilator Start: 10-27-2023 End: 10-26-2024 nitroglycerin (Nitrostat) 0.4 MG SL tablet Indications: 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 (CMS/HCC) Place 1 tablet (0.4 mg) under the tongue every 5 (five) minutes if needed for chest pain 90 tablet 12 10/27/2023 10/26/2024 Active ondansetron 4 mg oral tablet (13 sources) Serotonin-3 Receptor Antagonist take 1 tablet by mouth every eight hours as needed ondansetron (Zofran) 4 MG tablet Take 4 mg by mouth every 8 (eight) hours if needed. Active pantoprazole 40 mg delayed release oral tablet (13 sources) Proton Pump Inhibitor Start: 10-04-2023 take 1 tablet by mouth once daily pantoprazole (ProtoNix) 40 MG EC tablet Indications: Benign essential hypertension (CMS/HCC) TAKE ONE TABLET BY MOUTH DAILY 100 tablet 3 10/04/2023 Active simvastatin 40 mg oral tablet (13 sources) HMG-CoA Reductase Inhibitor Start: 02-08-2024 take 1 tablet by mouth at bedtime simvastatin (Zocor) 40 MG tablet Indications: Atherosclerosis of [place] coronary artery of [place] heart without angina pectoris (CMS/HCC) Take 1 tablet (40 mg) by mouth at bedtime 100 tablet 3 02/08/2024 Active Start: 10-06-2023 End: 01-14-2024 take 1 tablet by mouth at bedtime simvastatin (Zocor) 40 MG tablet Indications: Atherosclerosis of [place] coronary artery of [place] heart without angina pectoris (CMS/HCC) Take 1 tablet (40 mg) by mouth at bedtime 100 tablet 0 10/06/2023 01/14/2024 Active sucralfate 1000 mg oral tablet (13 sources) Aluminum Complex Start: 09-18-2022 End: 02-02-2024 take 1 tablet by mouth once daily at bedtime sucralfate (Carafate) 1 g tablet Indications: Gastroesophageal reflux disease with esophagitis without hemorrhage TAKE ONE TABLET BY MOUTH EVERY MORNING, EVERY EVENING, AND EVERY NIGHT BEFORE BEDTIME 270 tablet 3 01/19/2024 Active tiZANidine 4 mg oral tablet (5 sources) Central alpha-2 Adrenergic Agonist Start: 06-09-2024 take 1 tablet by mouth once tiZANidine (Zanaflex) 4 MG tablet Indications: Chest wall pain Take 1 tablet (4 mg) by mouth every 12 (twelve) hours if needed for muscle spasms for up to 10 days 20 tablet 06/09/2024 Active zolpidem tartrate 10 mg oral tablet (13 sources) gamma-Aminobutyri c Acid-ergic Agonist Start: 04-05-2024 take 1 tablet by mouth at bedtime zolpidem (Ambien) 10 MG tablet Indications: Chronic insomnia Take 1 tablet (10 mg) by mouth at bedtime 30 tablet 2 04/05/2024 Active Start: 08-18-2023 take 1 tablet by fatimah th at bedtime zolpidem (Ambien) 10 MG tablet [...] Classification Problem Date Documented Da te Episodic/Chronic Anxiety disorders (14 sources) Anxiety; Translations: [Anxiety disorder, unspecified] Onset: 3 01-19-2023 Chronic Chronic kidney disease (8 sources) Chronic kidney disease stage 3B ; Translations: [Stage 3b chronic kidney disease (HCC)] Onset: 3 01-19-2023 Chronic Conditions associated with dizziness or vertigo (3 sources) Dizziness and giddiness; Translations: [Vertigo] Onset: 4 06-26-2024 Episodic Coronary atherosclerosis and other heart disease (20 sources) Coronary occlusion; Translations: [Atherosclerotic heart disease of [place] coronary artery without angina pectoris] Onset: 4 Resolved: 4 01-19-2023 Chronic Disorders of lipid metabolism (20 sources) Hyperlipidemia; Translations: [Hyperlipidemia, unspecified] Onset: 4 Resolved: 8 01-19-2023 Chronic Diverticulosis and diverticulitis (20 sources) Diverticulosis of colon; Translations: [Diverticulosis of large intestine without perforation or abscess without bleeding] Onset: 9 Resolved: 4 01-19-2023 Chronic E Codes: Fall (1 source) Unspecified fall, initial encounter; Translations: [Unspecified fall, initial encounter] Onset: 4 Episodic E Codes: Fall (1 source) Fall Onset: 4 Esophageal disorders (20 sources) Gastro-esophageal reflux disease with esophagitis; Translations: [Gastroesophageal reflux disease with esophagitis without hemorrhage] Onset: 7 Resolved: 3 01-19-2023 Chronic Essential hypertension (20 sources) Benign essential hypertension; Translations: [Essential (primary) hypertension] Onset: 0 Resolved: 3 01-19-2023 Chronic Gout and other crystal arthropathies (18 sources) Chronic gouty arthritis; Translations: [Idiopathic chronic gout, unspecified site, without tophus (tophi)] Onset: 3 01-19-2023 Chronic Hyperplasia of prostate (13 sources) Benign prostatic hyperplasia; Translations: [Benign prostatic hyperplasia without lower urinary tract symptoms] Onset: 1 02-03-2023 Chronic Malaise and fatigue (1 source) Weakness; Translations: [Weakness] Onset: 4 Episodic Miscellaneous mental health disorders (8 sources) Chronic insomnia; Translations: [Psychophysiologic insomnia] Onset: 3 01-19-2023 Chronic Osteoarthritis (20 sources) Arthritis of right hip; Translations: [Unilateral primary osteoarthritis, right hip] Onset: 9 01-19-2023 Chronic Other gastrointestinal disorders (9 sources) 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; Translations: [Irritable bowel syndrome with constipation] Onset: 4 10-27-2023 Chronic Other nervous system disorders (8 sources) Chronic pain; Translations: [Other chronic pain] Onset: 3 01-19-2023 Chronic Other nervous system disorders (8 sources) Chronic postoperative pain; Translations: [Other chronic postprocedural pain] Onset: 7 02-03-2023 Chronic Other nutritional; endocrine; and metabolic disorders (8 sources) Hypocalcemia; Translations: [Hypocalcemia] Onset: 3 01-19-2023 Chronic Other nutritional; endocrine; and metabolic disorders (15 sources) Body mass index 30+ - obesity; Translations: [Obesity, unspecified] Onset: 2 01-19-2023 Chronic Peripheral and visceral atherosclerosis (5 sources) Arteriosclerotic vascular disease; Translations: [Unspecified atherosclerosis] Onset: 3 09-18-2022 Chronic Spondylosis; intervertebral disc disorders; other back problems (20 sources) Cervical spondylosis without myelopathy; Translations: [Spondylosis without myelopathy or radiculopathy, cervical region] Onset: 1 01-19-2023 Chronic Syncope (4 sources) Syncope; Translations: [Syncope and collapse] 06-26-2024 Episodic Unclassified (1 source) Ill Onset: 4 Unclassified (1 source) Subacute cough; Translations: [Subacute cough] Onset: 4 Past or Other Problems Problem Classification Problem Date Documented Da te Episodic/Chronic Abdominal hernia (15 sources) Hiatal hernia; Translations: [Diaphragmatic hernia without obstruction or gangrene] Onset: 09-18-2022 01-19-2023 Episodic Abdominal pain (1 source) Abdominal pain Onset: 10-25-2023 Episodic Acute and unspecified renal failure (13 sources) [id number] renal failure; Translations: [Acute kidney failure, unspecified] Onset: 09-20-2020 Resolved: 02-03-2023 02-03-2023 Episodic Acute myocardial infarction (13 sources) Myocardial infarction; Translations: [Acute myocardial infarction, unspecified] Onset: 09-13-2016 Resolved: 02-03-2023 02-03-2023 Chronic Coronary atherosclerosis and other heart disease (15 sources) Stented coronary artery; Translations: [Presence of coronary angioplasty implant and graft] Onset: 09-22-2013 Resolved: 08-02-2018 02-03-2023 Episodic Gastritis and duodenitis (13 sources) Gastritis; Translations: [Gastritis, unspecified, without bleeding] Onset: 09-18-2022 01-19-2023 Episodic Gastroduodenal ulcer (except hemorrhage) (13 sources) H/O: gastric ulcer; Translations: [Personal history of peptic ulcer disease] Onset: 09-18-2022 02-03-2023 Episodic Gastrointestinal hemorrhage (1 source) Rectal hemorrhage Onset: 10-25-2023 Episodic Genitourinary symptoms and ill-defined conditions (5 sources) Disorder of the urinary system; Translations: [Disorder of urinary system, unspecified] Onset: 06-06-2021 08-22-2021 Episodic Inflammatory conditions of male genital organs (13 sources) Balanitis; Translations: [Balanitis] Onset: 06-06-2021 Resolved: 02-03-2023 02-03-2023 Chronic Nonspecific chest pain (17 sources) Chest pain; Translations: [Chest pain, unspecified] Onset: 01-23-2017 Resolved: 02-03-2023 02-03-2023 Episodic Other and unspecified benign neoplasm (8 sources) History of polyp of colon; Translations: [Personal history of colonic polyps] Onset: 04-26-2019 02-03-2023 Episodic Other and unspecified benign neoplasm (5 sources) Polyp of colon; Translations: [Polyp of colon] Onset: 09-18-2022 09-18-2022 Episodic Other connective tissue disease (10 sources) Pain of right thigh; Translations: [Pain in right thigh] Onset: 01-19-2023 01-19-2023 Episodic Other gastrointestinal disorders (8 sources) History of disorder of digestive system; Translations: [Personal history of other diseases of the digestive system] Onset: 07-12-2020 02-03-2023 Episodic Other gastrointestinal disorders (8 sources) Constipation; Translations: [Constipation, unspecified] Onset: 09-28-2017 Resolved: 02-03-2023 02-03-2023 Episodic Other injuries and conditions due to external causes (13 sources) Injury of penis; Translations: [Unspecified injury of external genitals, initial encounter] Onset: 06-06-2021 Resolved: 02-03-2023 02-03-2023 Episodic Other injuries and conditions due to external causes (13 sources) Traumatic rhabdomyolysis; Translations: [Traumatic ischemia of muscle, initial encounter] Onset: 09-20-2020 Resolved: 02-03-2023 02-03-2023 Episodic Other male genital disorders (5 sources) Phimosis; Translations: [Phimosis] Onset: 06-06-2021 07-04-2021 Episodic Residual codes; unclassified (13 sources) Confusional state; Translations: [Disorientation, unspecified] Onset: 09-16-2020 Resolved: 02-03-2023 02-03-2023 Episodic Spondylosis; intervertebral disc disorders; other back problems (20 sources) Spinal stenosis in cervical region; Translations: [Spinal stenosis, cervical region] Onset: 12-20-2018 Resolved: 10-27-2023 01-19-2023 Episodic Viral infection (13 sources) Disease caused by 2019-nCoV; Translations: [COVID-19] Onset: 09-20-2020 Resolved: 02-03-2023 02-03-2023 Episodic Results Test Name Value Interpretation Reference Range Facil ity BLOOD CULTURE 1on 06-26-2024 BLOOD CULTURE 1 Blood Culture 1 NG5D NO GROWTH AT 5 DAYS.^NO GROWTH AT 5 DAYS. [facility] BLOOD CULTURE 2on 06-26-2024 BLOOD CULTURE 2 Blood Culture 2 NG5D NO GROWTH AT 5 DAYS.^NO GROWTH AT 5 DAYS. [facility] No Panel Informationon 06-26 [facility] CBC AND AUTO DIFFon 05-18-20 24 Eosinophils (Bld) [#/Vol] 0.1 10*3/uL Normal 0.0-0.4 [facility] Comment on above: Performed By: #### C BCA, PINR, 77592-2, 56797-0, BMP, 3040-3, LIVR, 17707-8, 21584-2 #### [facility] ([id number]) [address] [place] [address] 91267 Eosinophils/100 WBC (Bld) 1.3 % Normal [facility] Comment on above: Performed By: #### C BCA, PINR, 86225-6, 98081-8, BMP, 3040-3, LIVR, 83208-1, 16590-3 #### [facility] ([id number]) [address] [place] [address] 84817 Erythrocyte distribution width (RBC) [Ratio] 15.4 % High 11.5-15.0 [facility] Comment on above: Performed By: #### C BCA, PINR, 33546-4, 39631-4, BMP, 3040-3, LIVR, 31100-3, 04810-5 #### [facility] ([id number]) [address] [place] [address] 51813 Hematocrit (Bld) [Volume fraction] 42.1 % Normal 39-49 [facility] Comment on above: Performed By: #### C BCA, PINR, 84463-9, 17499-7, BMP, 3040-3, LIVR, 54270-4, 68640-0 #### [facility] ([id number]) [address] [place] [address] 88907 Hemoglobin (Bld) [Mass/Vol] 13.9 g/dL Normal 13.0-17.0 [facility] Comment on above: Performed By: #### C BCA, PINR, 40045-7, 34227-8, BMP, 3040-3, LIVR, 07340-5, 72806-3 #### [facility] ([id number]) [address] [place] [address] 06648 Lymphocytes (Bld) [#/Vol] 1.0 10*3/uL Normal 1.0-3.5 [facility] Comment on above: Performed By: #### C BCA, PINR, 41942-3, 17350-8, BMP, 3040-3, LIVR, 25096-6, 51763-3 #### [facility] ([id number]) [address] [place] [address] 68712 Lymphocytes/100 WBC (Bld) 13.2 % Normal [facility] Comment on above: Performed By: #### C BCA, PINR, 85609-2, 47316-2, BMP, 3040-3, LIVR, 65945-1, 71633-4 #### [facility] ([id number]) [address] [place] [address] 44560 MCH (RBC) [Entitic mass] 29.2 pg Normal 27-34 [facility] Comment on above: Performed By: #### C BCA, PINR, 76797-6, 01772-8, BMP, 3040-3, LIVR, 19864-2, 63498-2 #### [facility] ([id number]) [address] [place] [address] 78927 MCHC (RBC) [Mass/Vol] 33.1 g/dL Normal 32-36 [facility] Comment on above: Performed By: #### C BCA, PINR, 67567-7, 59241-1, BMP, 3040-3, LIVR, 30333-8, 19697-3 #### [facility] ([id number]) [address] [place] [address] 91392 MCV (RBC) [Entitic vol] 88 fL Normal 80-100 [facility] Comment on above: Performed By: #### C BCA, PINR, 91963-2, 53835-1, BMP, 3040-3, LIVR, 32434-2, 36042-6 #### [facility] ([id number]) [address] [place] [address] 54789 Monocytes (Bld) [#/Vol] 0.5 10*3/uL Normal 0-0.9 [facility] Comment on above: Performed By: #### C BCA, PINR, 65518-5, 02362-7, BMP, 3040-3, LIVR, 48292-7, 26562-1 #### [facility] ([id number]) [address] [place] [address] 88106 Monocytes/100 WBC (Bld) 6.6 % Normal [facility] Comment on above: Performed By: #### C BCA, PINR, 60179-4, 25513-3, BMP, 3040-3, LIVR, 27442-2, 85604-7 #### [facility] ([id number]) [address] [place] [address] 71113 Neutrophils (Bld) [#/Vol] 6.1 10*3/uL Normal 1.5-6.6 [facility] Comment on above: Performed By: #### C BCA, PINR, 30001-7, 83871-7, BMP, 3040-3, LIVR, 34756-6, 81438-7 #### [facility] ([id number]) [address] [place] [address] 60483 Platelet mean volume (Bld) [Entitic vol] 7.4 fL Normal 7-12 [facility] Comment on above: Performed By: #### C BCA, PINR, 31269-0, 56580-2, BMP, 3040-3, LIVR, 49209-3, 38665-8 #### [facility] ([id number]) [address] [place] [address] 98563 Platelets (Bld) [#/Vol] 134 10*3/uL Low 150-450 [facility] Comment on above: Performed By: #### C BCA, PINR, 98106-4, 68663-7, BMP, 3040-3, LIVR, 83069-4, 54966-1 #### [facility] ([id number]) [address] [place] [address] 90875 RBC COUNT 4.76 X10E12/L Normal 4.10-5.70 [facility] Comment on above: Performed By: #### C BCA, PINR, 02002-7, 34264-8, BMP, 3040-3, LIVR, 11110-3, 03770-9 #### [facility] ([id number]) [address] [place] [address] 62230 SEG NEUTROPHIL 78.9 % Normal [facility] Comment on above: Performed By: #### C BCA, PINR, 67701-1, 17235-6, BMP, 3040-3, LIVR, 64150-1, 41592-4 #### [facility] ([id number]) [address] [place] [address] 92340 WBC (Bld) [#/Vol] 7.7 10*3/uL Normal 4.0-11.0 [facility] Comment on above: Performed By: #### C BCA, PINR, 53004-9, 63369-6, BMP, 3040-3, LIVR, 12780-1, 40609-0 #### [facility] ([id number]) [address] [place] [address] 92484 COMPREHENSIVE METABOLIC PANE Reji 05-18-2024 Albumin [Mass/Vol] 3.9 g/dL Normal 3.2-5.3 [facility] Comment on above: Performed By: #### C BCA, PINR, 64556-5, 80651-4, BMP, 3040-3, LIVR, 80176-5, 83701-1 #### [facility] ([id number]) [address] [place] [address] 32963 ALP [Catalytic activity/Vol] 92 U/L Normal 39-130 [facility] Comment on above: Performed By: #### C BCA, PINR, 01880-0, 42900-4, BMP, 3040-3, LIVR, 86991-7, 20695-7 #### [facility] ([id number]) [address] [place] [address] 05942 ALT [Catalytic activity/Vol] 48 U/L High 0-40 [facility] Comment on above: Performed By: #### C BCA, PINR, 69253-1, 69865-3, BMP, 3040-3, LIVR, 78914-8, 28991-1 #### [facility] ([id number]) [address] [place] [address] 82345 Anion gap [Moles/Vol] 8 mmol/L Normal 5-15 [facility] Comment on above: Performed By: #### C BCA, PINR, 88537-7, 31777-3, BMP, 3040-3, LIVR, 19970-5, 83801-5 #### [facility] ([id number]) [address] [place] [address] 65036 AST [Catalytic activity/Vol] 29 U/L Normal 0-41 [facility] Comment on above: Performed By: #### C BCA, PINR, 39830-7, 43584-6, BMP, 3040-3, LIVR, 00186-3, 57337-0 #### [facility] ([id number]) [address] [place] [address] 49964 Bilirubin [Mass/Vol] 1.1 mg/dL Normal 0.3-1.2 [facility] Comment on above: Performed By: #### C BCA, PINR, 77000-1, 71437-5, BMP, 3040-3, LIVR, 86048-2, 15195-8 #### [facility] ([id number]) [address] [place] [address] 58311 Calcium [Mass/Vol] 8.4 mg/dL Low 8.5-10.5 [facility] Comment on above: Performed By: #### C BCA, PINR, 31425-6, 54508-1, BMP, 3040-3, LIVR, 51138-5, 51293-2 #### [facility] ([id number]) [address] [place] [address] 32905 Chloride [Moles/Vol] 103 mmol/L Normal 98-109 [facility] Comment on above: Performed By: #### C BCA, PINR, 70490-0, 32389-1, BMP, 3040-3, LIVR, 28899-3, 62333-2 #### [facility] ([id number]) [address] [place] [address] 22960 CO2 [Moles/Vol] 25 mmol/L Normal 22-32 [facility] Comment on above: Performed By: #### C BCA, PINR, 78834-1, 05329-8, BMP, 3040-3, LIVR, 92275-3, 35709-3 #### [facility] ([id number]) [address] [place] [address] 02701 Creatinine [Mass/Vol] 1.51 mg/dL High 0.70-1.20 [facility] Comment on above: Result Comment: METH OD TRACEABLE TO IDMS STANDARD Performed By: #### C BCA, PINR, 24598-1, 72511-9, BMP, 3040-3, LIVR, 36474-7, 67870-2 #### [facility] ([id number]) [address] [place] [address] 27284 GFR/1.73 sq M.predicted among non-blacks MDRD (S/P/Bld) [Vol rate/Area] 47 mL/min/{1.73_m2} Low >59 [facility] Comment on above: Result Comment: Reported eGFR is based on the CKD-EPI 2020 equation that does not use a race coefficient. Performed By: #### C BCA, PINR, 76566-2, 63816-2, BMP, 3040-3, LIVR, 63850-7, 94853-4 #### [facility] ([id number]) [address] [place] [address] 78634 Glucose [Mass/Vol] 97 mg/dL Normal 65-99 [facility] Comment on above: Performed By: #### C BCA, PINR, 83754-4, 95112-7, BMP, 3040-3, LIVR, 10329-5, 40113-6 #### [facility] ([id number]) [address] [place] [address] 58970 Potassium [Moles/Vol] 4.6 mmol/L Normal 3.5-5.0 [facility] Comment on above: Performed By: #### C BCA, PINR, 33114-5, 38218-1, BMP, 3040-3, LIVR, 91588-0, 30407-3 #### [facility] ([id number]) [address] [place] [address] 62833 Protein [Mass/Vol] 6.9 g/dL Normal 6.0-8.0 [facility] Comment on above: Performed By: #### C BCA, PINR, 95034-0, 77716-4, BMP, 3040-3, LIVR, 74824-5, 89186-2 #### [facility] ([id number]) [address] [place] [address] 09448 Sodium [Moles/Vol] 136 mmol/L Normal 134-146 [facility] Comment on above: Performed By: #### C BCA, PINR, 34119-3, 67275-6, BMP, 3040-3, LIVR, 05718-9, 13067-1 #### [facility] ([id number]) [address] [place] [address] Urea nitrogen [Mass/Vol] 29 mg/dL High 5-27 [facility] Comment on above: Performed By: #### C BCA, PINR, 35310-9, 23950-0, BMP, 3040-3, LIVR, 18740-7, 57092-0 #### [facility] ([id number]) [address] [facility], [place] [address] CT BRAIN WO CONTon CT BRAIN WO [...] Larsen MD on 05/18/2024 7:20 AM Normal [facility] CT CERVICAL SPINE WO CONTon 05-18-2024 CT [...] Horne MD on 05/18/2024 7:30 AM Normal [facility] Troponin I.cardiac High sens itivity method [Mass/Vol]on 05-18-2024 1 HOUR TROP I, HIGH SENSITIVITY 7 ng/L Normal <21 [facility] Comment on above: Performed By: #### C BCA, PINR, 44648-3, 51794-9, BMP, 3040-3, LIVR, 58101-6, 55108-3 #### [facility] ([id number]) [address] [place] [address] 32859 TROPONIN I, HIGH SENSITIVITY 7 ng/L Normal <21 [facility] Comment on above: Performed By: #### C BCA, PINR, 43930-6, 57585-4, BMP, 3040-3, LIVR, 47705-9, 84681-1 #### [facility] ([id number]) [address] [place] [address] 67816 URN MACROSCOPIC NURon 2023 BILIRUBIN VAHE Negative Normal NEG [facility] Comment on above: Performed By: #### C BCA, PINR, 55004-1, 27302-2, BMP, 3040-3, LIVR, 59057-4, 76534-6 #### [facility] ([id number]) [address] [place] [address] 12680 BLOOD/HGB VAHE Trace Abnormal NEG [facility] Comment on above: Performed By: #### C BCA, PINR, 64283-4, 39874-5, BMP, 3040-3, LIVR, 24750-2, 50681-7 #### [facility] ([id number]) [address] [place] [address], [place] [address] GLUCOSE VAHE Negative Normal NEG [facility] Comment on above: Performed By: #### C BCA, PINR, 16144-5, 00342-6, BMP, 3040-3, LIVR, 49979-8, 69482-9 #### [facility] ([id number]) [address] [place] [address] 93252 KETONES VAHE Negative Normal NEG [facility] Comment on above: Performed By: #### C BCA, PINR, 89986-8, 08938-7, BMP, 3040-3, LIVR, 23319-8, 33376-5 #### [facility] ([id number]) [address] [place] [address] 82463 LEUKOCYTE ESTERASE VAHE Negative Normal NEG [facility] Comment on above: Performed By: #### C BCA, PINR, 12209-5, 98901-0, BMP, 3040-3, LIVR, 11403-6, 90357-2 #### [facility] ([id number]) [address] [place] [address] 11938 NITRITE VAHE Negative Normal NEG [facility] Comment on above: Performed By: #### C BCA, PINR, 92994-1, 71488-0, BMP, 3040-3, LIVR, 11317-8, 31578-4 #### [facility] ([id number]) [address] [place] [address] [place] [address] PH VAHE 7.0 Normal 5.0-8.5 [facility] Comment on above: Performed By: #### C BCA, PINR, 58379-6, 28279-9, BMP, 3040-3, LIVR, 66318-5, 44939-0 #### [facility] ([id number]) [address] [place] [address] [place] [address] PROTEIN VAHE Negative Normal NEG [facility] Comment on above: Performed By: #### C BCA, PINR, 73045-4, 09415-1, BMP, 3040-3, LIVR, 94200-4, 80023-2 #### [facility] ([id number]) [address] [place] [address] 83239 SPECIFIC GRAVITY VAHE 1.020 Normal 1.003-1.035 [facility] Comment on above: Performed By: #### C BCA, PINR, 43389-3, 22477-3, BMP, 3040-3, LIVR, 75987-3, 94201-7 #### [facility] ([id number]) [address] [place] [address] 79250 UROBILINOGEN VAHE 0.2 eu/dL Normal <1.1 [facility] Comment on above: Performed By: #### C BCA, PINR, 24464-0, 60803-4, BMP, 3040-3, LIVR, 00615-3, 14175-3 #### [facility] ([id number]) [address] [place] [address] 85357 XR CHEST 1 VWon 05-18-2024 XR CHEST [...] Horne MD on 05/18/2024 7:31 AM Normal [facility] XR PELVIS 1 OR 2 VWSon 05-18 [...] Horne MD on 05/18/2024 7:33 AM Normal [facility] XR CHEST 2 VWSon 05-10-2024 XR CHEST 2 VWS XR CHEST 2 VWS PA and lateral chest: HISTORY: Cough. 2 views the chest are obtained. Lungs are clear. The cardiac and mediastinal contours are within normal limits. There is no pneumothorax, effusion, or vascular congestion. Osseous structures appear intact. IMPRESSION: No acute findings. Finalized by Joey Tejada MD on 05/10/2024 1:22 PM Normal [facility] BASIC METABOLIC PANLon 10-25 Anion gap [Moles/Vol] 5 mmol/L Normal 5-15 [facility] Comment on above: Performed By: #### C BCA, PINR, 45650-1, 85826-7, BMP, 3040-3, LIVR, 11917-9, 22484-6 #### [facility] ([id number]) [address] [place] [address] 70154 Calcium [Mass/Vol] 8.3 mg/dL Low 8.5-10.5 [facility] Comment on above: Performed By: #### C BCA, PINR, 35631-6, 03331-8, BMP, 3040-3, LIVR, 51444-6, 08946-1 #### [facility] ([id number]) [address] [place] [address] 95383 Chloride [Moles/Vol] 107 mmol/L Normal 98-109 [facility] Comment on above: Performed By: #### C BCA, PINR, 87617-0, 78060-1, BMP, 3040-3, LIVR, 31705-9, 23541-8 #### [facility] ([id number]) [address] [place] [address] 56386 CO2 [Moles/Vol] 25 mmol/L Normal 22-32 [facility] Comment on above: Performed By: #### C BCA, PINR, 98670-3, 28180-5, BMP, 3040-3, LIVR, 95018-7, 44743-1 #### [facility] ([id number]) [address] [place] [address] 60825 Creatinine [Mass/Vol] 1.42 mg/dL High 0.70-1.20 [facility] Comment on above: Result Comment: METH OD TRACEABLE TO IDMS STANDARD Performed By: #### C BCA, PINR, 71112-7, 19462-8, BMP, 3040-3, LIVR, 84442-4, 28628-5 #### [facility] ([id number]) [address] [place] [address] 82450 GFR/1.73 sq M.predicted among non-blacks MDRD (S/P/Bld) [Vol rate/Area] 51 mL/min/{1.73_m2} Low >59 [facility] Comment on above: Result Comment: Reported eGFR is based on the CKD-EPI 2020 equation that does not use a race coefficient. Performed By: #### C BCA, PINR, 05819-2, 91790-3, BMP, 3040-3, LIVR, 24536-9, 55988-7 #### [facility] ([id number]) [address] [place] [address] 26698 Glucose [Mass/Vol] 90 mg/dL Normal 65-99 [facility] Comment on above: Performed By: #### C BCA, PINR, 95051-2, 94862-5, BMP, 3040-3, LIVR, 90718-1, 89909-7 #### [facility] ([id number]) [address] [place] [address] 19215 Potassium [Moles/Vol] 4.3 mmol/L Normal 3.5-5.0 [facility] Comment on above: Performed By: #### C BCA, PINR, 91151-6, 80476-1, BMP, 3040-3, LIVR, 17240-2, 96128-7 #### [facility] ([id number]) [address] [place] [address] 70611 Sodium [Moles/Vol] 137 mmol/L Normal 134-146 [facility] Comment on above: Performed By: #### C BCA, PINR, 65652-7, 37719-9, BMP, 3040-3, LIVR, 70901-1, 42181-8 #### [facility] ([id number]) [address] [place] [address] 49715 Urea nitrogen [Mass/Vol] 17 mg/dL Normal 5-27 [facility] Comment on above: Performed By: #### C BCA, PINR, 71231-2, 73110-4, BMP, 3040-3, LIVR, 03258-4, 81373-9 #### [facility] ([id number]) [address] [place] [address] 59092 CBC AND AUTO DIFFon 10-25-19 24 ABSOLUTE BASOPHIL 0.1 X10E9/L Normal 0.0-0.2 [facility] Comment on above: Performed By: #### C BCA, PINR, 13709-4, 90825-8, BMP, 3040-3, LIVR, 49322-4, 57919-5 #### [facility] ([id number]) [address] [place] [address] 79694 ABSOLUTE NEUTROPHIL 3.1 X10E9/L Normal 1.5-6.6 [facility] Comment on above: Performed By: #### C BCA, PINR, 90279-0, 10351-4, BMP, 3040-3, LIVR, 63135-6, 30883-0 #### [facility] ([id number]) [address] [place] [address] 41890 Basophils/100 WBC (Bld) 1.0 % Normal [facility] Comment on above: Performed By: #### C BCA, PINR, 53863-4, 08480-5, BMP, 3040-3, LIVR, 96283-3, 85634-4 #### [facility] ([id number]) [address] [place] [address] 34137 Eosinophils (Bld) [#/Vol] 0.1 10*3/uL Normal 0.0-0.4 [facility] Comment on above: Performed By: #### C BCA, PINR, 29005-8, 81468-4, BMP, 3040-3, LIVR, 00962-5, 96888-6 #### [facility] ([id number]) [address] [place] [address] 26070 Eosinophils/100 WBC (Bld) 1.8 % Normal [facility] Comment on above: Performed By: #### C BCA, PINR, 60670-7, 79218-1, BMP, 3040-3, LIVR, 47306-0, 18389-1 #### [facility] ([id number]) [address] [place] [address] 54484 Erythrocyte distribution width (RBC) [Ratio] 14.8 % Normal 11.5-15.0 [facility] Comment on above: Performed By: #### C BCA, PINR, 82146-6, 28054-9, BMP, 3040-3, LIVR, 71921-1, 07223-7 #### [facility] ([id number]) [address] [place] [address] 66191 Hematocrit (Bld) [Volume fraction] 37.8 % Low 39-49 [facility] Comment on above: Performed By: #### C BCA, PINR, 04370-6, 15979-3, BMP, 3040-3, LIVR, 26255-0, 91936-3 #### [facility] ([id number]) [address] [place] [address] 95101 Hemoglobin (Bld) [Mass/Vol] 12.8 g/dL Low 13.0-17.0 [facility] Comment on above: Performed By: #### C BCA, PINR, 62620-8, 08095-7, BMP, 3040-3, LIVR, 53781-4, 32709-6 #### [facility] ([id number]) [address] [place] [address] 19281 Lymphocytes (Bld) [#/Vol] 1.6 10*3/uL Normal 1.0-3.5 [facility] Comment on above: Performed By: #### C BCA, PINR, 63716-3, 44871-2, BMP, 3040-3, LIVR, 13960-2, 60245-8 #### [facility] ([id number]) [address] [place] [address] 36990 Lymphocytes/100 WBC (Bld) 31.2 % Normal [facility] Comment on above: Performed By: #### C BCA, PINR, 18172-4, 66023-8, BMP, 3040-3, LIVR, 10844-1, 88462-0 #### [facility] ([id number]) [address] [place] [address] [place] [address] MCH (RBC) [Entitic mass] 29.7 pg Normal 27-34 [facility] Comment on above: Performed By: #### C BCA, PINR, 62868-6, 47796-2, BMP, 3040-3, LIVR, 12295-1, 96955-4 #### [facility] ([id number]) [address] [place] [address] 79154 MCHC (RBC) [Mass/Vol] 33.9 g/dL Normal 32-36 [facility] Comment on above: Performed By: #### C BCA, PINR, 74453-0, 90053-4, BMP, 3040-3, LIVR, 43903-7, 78929-4 #### [facility] ([id number]) [address] [place] [address] 29844 MCV (RBC) [Entitic vol] 88 fL Normal 80-100 [facility] Comment on above: Performed By: #### C BCA, PINR, 04191-9, 25409-2, BMP, 3040-3, LIVR, 20710-9, 72531-7 #### [facility] ([id number]) [address] [place] [address] 64923 Monocytes (Bld) [#/Vol] 0.4 10*3/uL Normal 0-0.9 [facility] Comment on above: Performed By: #### C BCA, PINR, 29998-6, 63713-8, BMP, 3040-3, LIVR, 18726-8, 32175-3 #### [facility] ([id number]) [address] [place] [address] 22234 Monocytes/100 WBC (Bld) 6.8 % Normal [facility] Comment on above: Performed By: #### C BCA, PINR, 28691-3, 27300-9, BMP, 3040-3, LIVR, 09952-5, 88370-7 #### [facility] ([id number]) [address] [place] [address] 27806 Neutrophils/100 WBC (Bld) 59.2 % Normal [facility] Comment on above: Performed By: #### C BCA, PINR, 01082-1, 88660-2, BMP, 3040-3, LIVR, 99822-1, 93488-6 #### [facility] ([id number]) [address] [place] [address] 15512 Platelet mean volume (Bld) [Entitic vol] 7.6 fL Normal 7-12 [facility] Comment on above: Performed By: #### C BCA, PINR, 93531-8, 86332-1, BMP, 3040-3, LIVR, 79084-8, 50316-1 #### [facility] ([id number]) [address] [place] [address] 00987 Platelets (Bld) [#/Vol] 146 10*3/uL Low 150-450 [facility] Comment on above: Performed By: #### C BCA, PINR, 77760-1, 10653-5, BMP, 3040-3, LIVR, 79084-7, 67817-8 #### [facility] ([id number]) [address] [place] [address] RBC COUNT 4.31 X10E12/L Normal 4.10-5.70 [facility] Comment on above: Performed By: #### C BCA, PINR, 67818-8, 10663-6, BMP, 3040-3, LIVR, 59312-4, 50152-2 #### [facility] ([id number]) [address] [place] [address] 08511 WBC (Bld) [#/Vol] 5.2 10*3/uL Normal 4.0-11.0 [facility] Comment on above: Performed By: #### C BCA, PINR, 67718-7, 11227-5, BMP, 3040-3, LIVR, 00270-0, 82697-9 #### [facility] ([id number]) [address] [place] [address] ABDOMEN AND PELVIS W CONT on [...] Tejada MD on 10/25/2023 2:27 PM Normal [facility] CT BRAIN WO CONTon CT BRAIN WO [...] Gonzáles MD on 10/25/2023 3:50 PM Normal [facility] LIPASEon 10-25-2023 Lipase [Catalytic activity/Vol] 24 U/L Normal 17-40 [facility] Comment on above: Performed By: #### C BCA, PINR, 60043-1, 47965-0, BMP, 3040-3, LIVR, 42148-7, 68898-3 #### [facility] ([id number]) [address] [place] [address] 35707 LIVER PANELon 10-25-2023 Albumin [Mass/Vol] 4.1 g/dL Normal 3.2-5.3 [facility] Comment on above: Performed By: #### C BCA, PINR, 39664-8, 56090-8, BMP, 3040-3, LIVR, 39789-5, 69745-1 #### [facility] ([id number]) [address] [place] [address] ALP [Catalytic activity/Vol] 75 U/L Normal 39-130 [facility] Comment on above: Performed By: #### C BCA, PINR, 54470-9, 08726-9, BMP, 3040-3, LIVR, 47312-3, 26893-6 #### [facility] ([id number]) [address] [place] [address] 24568 ALT [Catalytic activity/Vol] 20 U/L Normal 0-40 [facility] Comment on above: Performed By: #### C BCA, PINR, 02557-5, 14777-0, BMP, 3040-3, LIVR, 61637-2, 60971-6 #### [facility] ([id number]) [address] [place] [address] 83620 AST [Catalytic activity/Vol] 23 U/L Normal 0-41 [facility] Comment on above: Performed By: #### C BCA, PINR, 57116-5, 27500-5, BMP, 3040-3, LIVR, 37440-6, 27459-7 #### [facility] ([id number]) [address] [place] [address] 63653 Bilirubin [Mass/Vol] 1.1 mg/dL Normal 0.3-1.2 [facility] Comment on above: Performed By: #### C BCA, PINR, 45630-2, 01142-4, BMP, 3040-3, LIVR, 99582-1, 82091-4 #### [facility] ([id number]) [address] [place] [address] 11838 Bilirubin.direct [Mass/Vol] 0.2 mg/dL Normal 0.0-0.4 [facility] Comment on above: Performed By: #### C BCA, PINR, 90011-1, 19824-0, BMP, 3040-3, LIVR, 62182-8, 12550-0 #### [facility] ([id number]) [address] [place] [address] 38385 Protein [Mass/Vol] 6.5 g/dL Normal 6.0-8.0 [facility] Comment on above: Performed By: #### C BCA, PINR, 60383-2, 78210-6, BMP, 3040-3, LIVR, 97674-5, 86814-6 #### [facility] ([id number]) [address] [place] [address] 74516 Lactate (P scotty) [Moles/Vol]o n 10-25-2023 LACTATE W/REFLEX 0.6 mmol/L Normal 0.4-2.0 [facility] Comment on above: Result Comment: Result did not trigger repeat Lactate, re-order if needed. Performed By: #### C BCA, PINR, 81727-3, 47111-5, BMP, 3040-3, LIVR, 03844-8, 40536-1 #### [facility] ([id number]) [address] [place] [address] 57307 MAGNESIUMon 10-25-2023 Magnesium [Mass/Vol] 1.9 mg/dL Normal 1.8-2.6 [facility] Comment on above: Performed By: #### C BCA, PINR, 06150-5, 19165-4, BMP, 3040-3, LIVR, 19352-7, 73655-7 #### [facility] ([id number]) [address] [place] [address] 78134 PROTIME AND INRon 10-25-2023 INR Coag (PPP) [Relative time] 1.1 {INR} Normal 0.8-1.1 [facility] Comment on above: Performed By: #### C BCA, PINR, 33527-7, 65816-3, BMP, 3040-3, LIVR, 09688-4, 80077-6 #### [facility] ([id number]) [address] [place] [address] 19211 PT Coag (PPP) [Time] 12.5 s Normal 9.8-13.2 [facility] Comment on above: Result Comment: NEW REFERENCE RANGE Performed By: #### C BCA, PINR, 90815-2, 85923-3, BMP, 3040-3, LIVR, 93502-8, 76695-9 #### [facility] ([id number]) [address] [place] [address] 96985 TROPONIN Ion 10-25-2023 Troponin I.cardiac [Mass/Vol] ng/mL Normal 0.00-0.04 [facility] Comment on above: Performed By: #### C BCA, PINR, 93463-1, 25752-3, BMP, 3040-3, LIVR, 48984-7, 24403-7 #### [facility] ([id number]) [address] [place] [address] 10635 URINE CULTUREon 10-25-2023 Bacteria identified Cx Nom (U) CULTURE RESULTS <10,000 ORGANISMS/ML NORMAL URO GENITAL TERESA Normal [facility] Comment on above: Performed By: #### C BCA, PINR, 37584-9, 56176-2, BMP, 3040-3, LIVR, 83899-7, 96878-5 #### [facility] ([id number]) [address] [place] [address] 23669 XR CHEST 1 VWon 10-25-2023 XR CHEST 1 VW XR CHEST 1 VW XR CHEST 1 VW IMPRESSION: cough/weakness. Comparison 06/20/21. No acute cardiopulmonary disease. Low lung volumes with mild elevation of the right hemidiaphragm. Finalized by Lance Gonzáles MD on 10/25/2023 3:43 PM Normal [facility] aPTT Coag (PPP) [Time]on aPTT Coag (Bld) [Time] 31 s Normal 26-37 [facility] Comment on above: Result Comment: NEW REFERENCE RANGE Performed By: #### C [facility], PINR, 96917-0, 72635-7, [facility], 3040-3, LIVR, 21896-4, 74272-0 #### [facility] ([id number]) [address] [place] [address], [place] [address] XR FEMUR 2+ VW RIGHTon 07-13 XR [...] by Vu Moore on 05/13/2022 1312 Normal [facility] C-Reactive Proteinon 022 CRP IV 0.8 mg/dl Normal <5.0 [facility] Comment on above: Performed By: #### C MP, CRP, FT4, LIPD, FT3, ESR, TSH, CBC #### [facility] [address] [place], [place] [id number] Complete Blood Counton 11-10 Erythrocyte distribution width (RBC) [Ratio] 13.9 % Normal 11.0-15.0 [facility] Comment on above: Performed By: #### C MP, CRP, FT4, LIPD, FT3, ESR, TSH, CBC #### [facility] [address] [place], [place] [id number] Hematocrit (Bld) [Volume fraction] 48.5 % Normal 38.5-50.0 [facility] Comment on above: Performed By: #### C MP, CRP, FT4, LIPD, FT3, ESR, TSH, CBC #### [facility] [address] [place], [place] [id number] Hemoglobin (Bld) [Mass/Vol] 15.1 g/dL Normal 13.0-17.1 [facility] Comment on above: Performed By: #### C MP, CRP, FT4, LIPD, FT3, ESR, TSH, CBC #### [facility] [address] [place], [place] [id number] MCH (RBC) [Entitic mass] 28.6 pg Normal 27.0-33.0 [facility] Comment on above: Performed By: #### C MP, CRP, FT4, LIPD, FT3, ESR, TSH, CBC #### [facility] [address] [place], [place] [id number] MCHC (RBC) [Mass/Vol] 31.1 g/dL Low 32.0-36.0 [facility] Comment on above: Performed By: #### C MP, CRP, FT4, LIPD, FT3, ESR, TSH, CBC #### [facility] [address] [place], [place] [id number] MCV (RBC) [Entitic vol] 92 fL Normal 80-100 [facility] Comment on above: Performed By: #### C MP, CRP, FT4, LIPD, FT3, ESR, TSH, CBC #### [facility] [address] [place], [place] [id number] Platelet mean volume (Bld) [Entitic vol] 9.10 fL Normal 7.50-12.50 [facility] Comment on above: Performed By: #### C MP, CRP, FT4, LIPD, FT3, ESR, TSH, CBC #### [facility] [address] [place], [place] [id number] Platelets (Bld) [#/Vol] 151 10*3/uL Normal 140-400 [facility] Comment on above: Performed By: #### C MP, CRP, FT4, LIPD, FT3, ESR, TSH, CBC #### [facility] [address] [place], [place] [id number] RBC (Bld) [#/Vol] 5.28 10*6/uL Normal 4.20-5.80 [facility] Comment on above: Performed By: #### C MP, CRP, FT4, LIPD, FT3, ESR, TSH, CBC #### [facility] [address] [place], [place] [id number] RDW-SD 46.7 fL Normal 37.0-50.0 [facility] Comment on above: Performed By: #### C MP, CRP, FT4, LIPD, FT3, ESR, TSH, CBC #### [facility] [address] [place], [place] [id number] WBC (Bld) [#/Vol] 10.2 10*3/uL Normal 3.8-11.0 [facility] Comment on above: Performed By: #### C MP, CRP, FT4, LIPD, FT3, ESR, TSH, CBC #### [facility] [address] [place], [place] [id number] [facility] 11-10-2021 Albumin [Mass/Vol] 4.1 g/dL Normal 3.6-5.1 [facility] Comment on above: Performed By: #### C MP, CRP, FT4, LIPD, FT3, ESR, TSH, CBC #### [facility] [address], [place] [id number] Albumin/Globulin [Mass ratio] 1.6 {ratio} Normal 1.0-2.5 [facility] Comment on above: Performed By: #### C MP, CRP, FT4, LIPD, FT3, ESR, TSH, CBC #### [facility] [address] [place], [place] [id number] ALP [Catalytic activity/Vol] 98 U/L Normal 40-129 [facility] Comment on above: Performed By: #### C MP, CRP, FT4, LIPD, FT3, ESR, TSH, CBC #### [facility] [address] [place], [place] [id number] ALT [Catalytic activity/Vol] 36 U/L Normal 9-46 [employer] [facility] [employer] Comment on above: Result Comment: 08/13 Female reference range changed. Performed By: #### C MP, CRP, FT4, LIPD, FT3, ESR, TSH, CBC #### [facility] [address], [place] [id number] Anion gap [Moles/Vol] 16 mmol/L Normal 12-20 [facility] Comment on above: Result Comment: Effe ctive 09/18/2019 reference range changed. Performed By: #### C MP, CRP, FT4, LIPD, FT3, ESR, TSH, CBC #### [facility] [address], [place] [id number] AST [Catalytic activity/Vol] 19 U/L Normal 10-40 [facility] Comment on above: Performed By: #### C MP, CRP, FT4, LIPD, FT3, ESR, TSH, CBC #### [facility] [address], [place] [id number] Bilirubin [Mass/Vol] 0.65 mg/dL Normal 0.30-1.20 [facility] Comment on above: Performed By: #### C MP, CRP, FT4, LIPD, FT3, ESR, TSH, CBC #### [facility] [address], [place] [id number] BUN/CREA 13 Ratio Normal 6-22 [facility] Comment on above: Performed By: #### C MP, CRP, FT4, LIPD, FT3, ESR, TSH, CBC #### [facility] [address], [place] [id number] Calcium [Mass/Vol] 8.5 mg/dL Low 8.6-10.2 [facility] Comment on above: Performed By: #### C MP, CRP, FT4, LIPD, FT3, ESR, TSH, CBC #### [facility] [address], [place] [id number] Chloride [Moles/Vol] 107 mmol/L Normal 98-107 [facility] Comment on above: Performed By: #### C MP, CRP, FT4, LIPD, FT3, ESR, TSH, CBC #### [facility] [address], [place] [id number] CO2 [Moles/Vol] 25 mmol/L Normal 20-31 [facility] Comment on above: Performed By: #### C MP, CRP, FT4, LIPD, FT3, ESR, TSH, CBC #### [facility] [address], [place] [id number] Creatinine [Mass/Vol] 1.6 mg/dL High 0.7-1.4 [facility] Comment on above: Performed By: #### C MP, CRP, FT4, LIPD, FT3, ESR, TSH, CBC #### [facility] [address], [place] [id number] eGFRAA 53 mL/min/1.73m2 Low >60 [facility] Comment on above: Performed By: #### C MP, CRP, FT4, LIPD, FT3, ESR, TSH, CBC #### [facility] [address], [place] [id number] eGFRNAA 44 mL/min/1.73m2 Low >60 [facility] Comment on above: Performed By: #### C MP, CRP, FT4, LIPD, FT3, ESR, TSH, CBC #### [facility] [address], [place] [id number] Globulin (S) [Mass/Vol] 2.5 g/dL Normal 1.9-3.7 [facility] Comment on above: Performed By: #### C MP, CRP, FT4, LIPD, FT3, ESR, TSH, CBC #### [facility] [address], [place] [id number] Glucose [Mass/Vol] 88 mg/dL Normal 65-99 [facility] Comment on above: Result Comment: For FASTING Glucose --- ADA reference ranges: Normal 65-99 mg/dl Prediabetes 100-125 Diabetes >/= 126 Performed By: #### C MP, CRP, FT4, LIPD, FT3, ESR, TSH, CBC #### [facility] [address], [place] [id number] Potassium [Moles/Vol] 5.2 mmol/L Normal 3.5-5.5 [facility] Comment on above: Performed By: #### C MP, CRP, FT4, LIPD, FT3, ESR, TSH, CBC #### [facility] [address], [place] [id number] Protein [Mass/Vol] 6.6 g/dL Normal 6.1-8.1 [facility] Comment on above: Performed By: #### C MP, CRP, FT4, LIPD, FT3, ESR, TSH, CBC #### [facility] [address], [place] [id number] Sodium [Moles/Vol] 143 mmol/L Normal 135-146 [facility] [place] [facility] Comment on above: Performed By: #### C MP, CRP, FT4, LIPD, FT3, ESR, TSH, CBC #### [facility] [address], [place] [id number] Urea nitrogen [Mass/Vol] 20 mg/dL Normal 7-25 [facility] Order Clerk Comment on above: Performed By: #### C MP, CRP, FT4, LIPD, FT3, ESR, TSH, CBC #### [facility] [address], [place] [id number] Free T3on 11-10-2021 FT3 2.63 pg/mL Normal 2.00-4.40 [facility] Order Clerk Comment on above: Performed By: #### C MP, CRP, FT4, LIPD, FT3, ESR, TSH, CBC #### [facility] [address], [place] [id number] Free T4on 11-10-2021 Free T4 [Mass/Vol] 1.00 ng/dL Normal 0.80-1.80 [facility] [place] [facility] Comment on above: Performed By: #### C MP, CRP, FT4, LIPD, FT3, ESR, TSH, CBC #### [facility] [address], [place] [id number] Lipid Panelon 11-10-2021 Cholesterol [Mass/Vol] 147 mg/dL Normal 125-200 [facility] Order Clerk Comment on above: Result Comment: Low risk < 200mg/dL Borderline risk 201-239 mg/dl High risk > or equal to 240 Performed By: #### C MP, CRP, FT4, LIPD, FT3, ESR, TSH, CBC #### [facility] [address], [place] [id number] Cholesterol in HDL [Mass/Vol] 71 mg/dL Normal >40 [facility] Special[facility] Comment on above: Result Comment: High Cardiovascular Risk HDL <40 mg/dL Low Cardiovascular Risk HDL > or equal to 60 mg/dl Performed By: #### C MP, CRP, FT4, LIPD, FT3, ESR, TSH, CBC #### [facility] [address], [place] [id number] Cholesterol in LDL [Mass/Vol] 58 mg/dL Normal [facility] Comment on above: Result Comment: LDL ATP III CLASSIFICATION LDL less than 100 mg/dl Optimal LDL 100-129 mg/dl Near or above optimal LDL 130-159 Borderline high LDL 160-189 High LDL greater than 189 mg/dl Very High Performed By: #### C MP, CRP, FT4, LIPD, FT3, ESR, TSH, CBC #### [facility] [address], [place] [id number] Cholesterol in VLDL [Mass/Vol] 18 mg/dL Normal [facility] Special[facility] Comment on above: Performed By: #### C MP, CRP, FT4, LIPD, FT3, ESR, TSH, CBC #### [facility] [address], [place] [id number] Cholesterol.total/C holesterol in HDL [Mass ratio] 2 {ratio} Normal [facility] Special[facility] Comment on above: Performed By: #### C MP, CRP, FT4, LIPD, FT3, ESR, TSH, CBC #### [facility] [address], [place] [id number] Triglyceride [Mass/Vol] 89 mg/dL Normal 30-150 [facility] Comment on above: Result Comment: TRIG ATPIII CLASSIFICATIONS TRIG less than 150 mg/dl Normal TRIG 150-199 mg/dl Borderline High TRIG 200-500 mg/dl High TRIG greather than 500 mg/dl Very High Performed By: #### C MP, CRP, FT4, LIPD, FT3, ESR, TSH, CBC #### [facility] [address], [place] [id number] PSA SCREEN (MEDICARE)on 10-15 TPSA 0.731 ng/mL Normal <4.000 [facility] Order Clerk Comment on above: Result Comment: PSA Test Method: ECLIA/Alicia e 601 Performed By: #### P SA #### [facility] [address], [place] [id number] RBC Sedimentation Rateon ESR (Bld) [Velocity] 57.00 mm/h High 0.00-20.00 [facility] Order Clerk Comment on above: Performed By: #### C MP, CRP, FT4, LIPD, FT3, ESR, TSH, CBC #### [facility] [address], [place] [id number] TSHon 11-10-2021 TSH 2.990 uIU/mL Normal 0.400-4.500 [facility] Order Clerk Comment on above: Performed By: #### C MP, CRP, FT4, LIPD, FT3, ESR, TSH, CBC #### [facility] [address], [place] [id number] Uric Acidon 10-20-2021 URIC 8.5 mg/dL High 4.0-8.0 [facility] Order Clerk Comment on above: Result Comment: Refe rence range change 07/30/2017. Prior reference range F 2.4-5.7mg/dL. M 3.4-7.0 mg/dL. Performed By: #### U BOSSMAN #### [facility] [address], [place] [id number] XR pre/post mri xrayon 08-01 XR pre/post mri xray [facility] [place] [address] MRI Report Signed Patient: Hakeem Escobedo MR#: [id number] : 1945 Acct:[id number] Age/Sex: 75 / M ADM Date: 08/01/21 Loc: [facility] Room: Type: [facility] Attending Dr: Petrona Boyer NP Ordering Provider: Petrona Boyer NP Date of Service: 08/01/21 MR/MR lumbar spine wo con: M51.26 ([id number]) XR/XR pre/post mri xray: M51.26 Copies to: [...] Kirk Santiago M.D.08/01/2021 5:06 PM Dictation Location: [place] [address] Transcribed By: [facility] 08/01/21 1706 Dictated By: Kirk Santiago II, MD 08/01/21 1659 Signed By: 08/01/21 170 [facility] Vital Signs Date Time Vital Sign Value Performing Clinician Faci lity 06-26-2024 09:15-0400 Body height 167.6 cm Mono Knowles MD Work Phone: [facility] 06-26-2024 09:15-0400 Body mass index (BMI) [Ratio] 29.7 kg/m2 Mono Knowles MD Work Phone: [facility] 06-26-2024 09:15-0400 Body weight 83.46 kg Mono Knowles MD Work Phone: [facility] 06-26-2024 09:15-0400 Diastolic blood pressure 70 mm[Hg] Mono Knowles MD Work Phone: [facility] 06-26-2024 09:15-0400 Heart rate 63 /min Mono Knowles MD Work Phone: [facility] 06-26-2024 09:15-0400 SaO2% (BldA) [Mass fraction] 97 % Mono Knowles MD Work Phone: [facility] 06-26-2024 09:15-0400 Systolic blood pressure 124 mm[Hg] Mono Knowles MD Work Phone: [facility] 12-09-2023 08:38-0400 Body height 167.6 cm Gume Son MD Work Phone: [facility] 12-09-2023 08:38-0400 Body mass index (BMI) [Ratio] 29.86 kg/m2 Gume Son MD Work Phone: [facility] 12-09-2023 08:38-0400 Body weight 83.92 kg Gume Son MD Work Phone: [facility] 12-09-2023 08:38-0400 Diastolic blood pressure 70 mm[Hg] Gume Son MD Work Phone: [facility] 12-09-2023 08:38-0400 Heart rate 63 /min Gume Son MD Work Phone: [facility] 12-09-2023 08:38-0400 SaO2% (BldA) [Mass fraction] 95 % Gume Son MD Work Phone: [facility] 12-09-2023 08:38-0400 Systolic blood pressure 110 mm[Hg] Gume Son MD Work Phone: [facility] 10-27-2023 08:49-0500 Body height 167.6 cm Mono Knowles MD Work Phone: [facility] 10-27-2023 08:49-0500 Body mass index (BMI) [Ratio] 29.7 kg/m2 Mono Knowles MD Work Phone: [facility] 10-27-2023 08:49-0500 Body weight 83.46 kg Mono Knowles MD Work Phone: [facility] 10-27-2023 08:49-0500 Diastolic blood pressure 66 mm[Hg] Mono Knowles MD Work Phone: [facility] 10-27-2023 08:49-0500 Heart rate 56 /min Mono Knowles MD Work Phone: [facility] 10-27-2023 08:49-0500 SaO2% (BldA) [Mass fraction] 97 % Mono Knowles MD Work Phone: [facility] 10-27-2023 08:49-0500 Systolic blood pressure 108 mm[Hg] Mono Knowles MD Work Phone: [facility] Encounters Encounter Date Encounter Type Care Provider Facility Start: 06-29-2024 End: 06-29-2024 Refill Mono Knowles MD Work Phone: [facility] Comment on above: Anxiety Start: 06-26-2024 End: 06-26-2024 Transitional care manage srvc 14 day discharge Mono Knowles MD Work Phone: [facility] Comment on above: Syncope, unspecified syncope type (Primary Dx); Pain of right thigh; Lumbar herniated disc; Right lumbar radiculopathy; Vertigo; Chest discomfort Start: 06-26-2024 End: 06-26-2024 ambulatory MONO KNOWLES Not Available Start: 06-22-2024 End: 06-22-2024 Refill Karol Wednesday PROJECT/PRODUCTION MANAGER IMAGING Work Phone: [facility] Comment on above: Cervical stenosis of spinal canal Start: 06-21-2024 End: 06-26-2024 Clinisync Result Encounter Generic External Data Provider [facility] Unsolicited Start: 06-21-2024 End: 06-26-2024 Clinisync Result Encounter Generic External Data Provider [facility] Unsolicited Start: 05-24-2024 End: 05-24-2024 ambulatory VERONICA THORNTON Not Available Start: 05-18-2024 End: 05-19-2024 Emergency department patient visit JOMAR SCHWARTZ [facility] Start: 05-10-2024 End: 05-10-2024 ambulatory MONO KNOWLES [facility] Start: 05-10-2024 End: 05-10-2024 ambulatory MONO KNOWLES Not Available Start: 04-05-2024 End: 04-05-2024 ambulatory MONO KNOWLES Not Available Start: 01-03-2024 End: 01-03-2024 ambulatory MONO KNOWLES Not Available Start: 12-09-2023 End: 12-09-2023 Office outpatient visit 15 minutes Racheal Chi MD Work Phone: [facility] Comment on above: Benign essential hyp ertension (Primary Dx); Coronary artery disease involving nuiqsut coronary artery of nuiqs[place] heart without angina pectoris Start: 12-09-2023 End: 12-09-20[address] 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 (CMS/HCC); Stented [...] 10-25-2023 End: 10-26-2023 Emergency department patient visit [facility] Start: 10-25-2023 End: 10-26-2023 Emergency department patient visit [facility] Start: 10-25-2023 End: 10-25-2023 Emergency department patient visit MONO KNOWLES [facility] Start: 10-25-2023 End: 10-26-2023 Emergency department patient visit RYLAN ANDRES [facility] Start: 07-26-2023 End: 07-26-2023 ambulatory MONO KNOWLES Not Available Start: 02-04-[address] MONO KNOWLES Facilit y:H1 Procedures Date Procedure Procedure Detail Performing Clinician Start: 06-21-2024 BLOOD CULTURE 2 Generic External Data Provider Start: 06-21-2024 BLOOD CULTURE 1 Generic External Data Provider Start: 12-09-2023 Follow-up visit Follow-up GUME SON Start: 10-19-2022 Colonoscopy Christin Bazzi RN Plan of Treatment Date Care Activity Detail Author Start: 10-19-2025 Screening for malign ant neoplasm of colon Colonoscopy [facility] Start: 12-08-2024 Adult BMI Screening Adult BMI Screen ing [facility] Start: 12-08-2024 Tobacco Screening Tobacco Screening [facility] Start: 10-27-2024 Medicare Annual Wellness (AWV) Medicare Annual Wellness (AWV) [facility] Start: 10-25-2024 Tobacco Screening Tobacco Screening [facility] Start: 07-12-2024 End: 07-12-2024 Patient encounter procedure 07/12/2024 11:00 AM EDT Office Visit [facility] [address] [facility] [address] [place] [address] Mono Knowles MD [address] [facility] [address] [place] [address] [facility] Start: 06-30-2024 End: 06-30-2024 Patient encounter procedure 06/30/2024 10:00 AM EDT Office Visit [facility] [address] [facility] [address] [place] [address] Mono Knowles MD [address] [facility] [address] [place] [address] [facility] Start: 06-26-2024 End: 06-26-2026 NM Heart Perfusion W adenosine and W radionuclide IV STRESS NUCLEAR MEDICINE [facility] Cardiac Nuclear Medicine Routine Syncope, unspecified syncope type Chest discomfort Expected: 06/26/2024 (Approximate), Expires: 06/26/2026 [facility] Work Phone: Comment on above: Expected: 06/26/2024 (Approximate), Expires: 06/26/2026 Start: 06-26-2024 End: 06-26-2024 Patient encounter procedure 06/26/2024 9:30 AM EDT Office Visit [facility] [address] [place] [address] Mono Knowles MD [address] [place] [address] [facility] Start: 02-04-2024 Medicare Annual Wellness (AWV) Medicare Annual Wellness (AWV) [facility] Start: 01-03-2024 End: 01-03-2024 Patient encounter procedure 01/03/2024 9:30 AM EDT Office Visit [facility] [address] [place] [address] Mono Knowles MD [address] [place] [address] [facility] Start: 12-09-2023 End: 12-09-2023 Patient encounter procedure 12/09/2023 8:30 AM EDT Office Visit [facility] [address] [place] [phone] Racheal Chi MD [address] [place] [address] Gume Son MD [address] [facility] [place] [address] [facility] Start: 11-26-2023 End: 11-26-2023 Patient encounter procedure 11/26/2023 11:15 AM EDT Office Visit [facility] [address] [place] [phone] Racheal Chi MD [address] [place] [facility] [address] [facility] Start: 11-17-2023 End: 11-17-2023 Patient encounter procedure 11/17/2023 11:15 AM EST Office Visit [facility] [address] [place] [phone] Racheal Chi MD [address] [place] [address] Priyanka Carbajal MD [address] [place] [phone] [facility] Start: 10-27-2023 End: 10-27-2024 Comprehensive metabolic 2000 panel - Serum or Plasma Comprehensive metabolic panel Lab Routine Wellness examination 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 (CMS/HCC) Expected: 10/27/2023 (Approximate), Expires: 10/27/2024 [facility] Comment on above: Expected: 10/27/2023 (Approximate), Expires: 10/27/2024 Start: 10-27-2023 End: 10-27-2024 Lipid 1996 panel - Serum or Plasma Lipid panel Lab Routine Wellness examination 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 (CMS/HCC) Expected: 10/27/2023 (Approximate), Expires: 10/27/2024 [facility] Comment on above: Expected: 10/27/2023 (Approximate), Expires: 10/27/2024 Start: 10-27-2023 End: 10-27-2024 TSH W/REFLEX TO FT4 TSH W/REFLEX TO FT4 Lab Routine Wellness examination 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 (CMS/HCC) Expected: 10/27/2023 (Approximate), Expires: 10/27/2024 [facility] Comment on above: Expected: 10/27/2023 (Approximate), Expires: 10/27/2024 Start: 10-27-2023 End: 10-27-2023 Patient encounter procedure 10/27/2023 9:15 AM EST Office Visit MARSHALL RASHEED [address] [place] [address] [place] [phone] Mono Knowles MD [address] [facility] [address] [place] [address] Arrived [facility] Comment on above: Arrived Start: 10-19-2023 Adult BMI Screening Adult BMI Screen ing [facility] Start: 11-27-2021 DTaP,Tdap and Td Vaccines (2 - Td or Tdap) DTaP,Tdap and Td Vaccines (2 - Td or Tdap) [facility] Start: 12-01-2011 Fall Risk Screening Fall Risk Screen ing [facility] Start: 1964 Adult BMI Follow Up Plan Adult BMI Follow Up Plan [facility] Start: 1958 Depression Screening Depression Scre ening [facility] Start: 1945 Medicare Annual Wellness Visit Medicare Annual Wellness Visit [facility] CBC W Auto Different ial panel - Blood CBC and differential Lab Routine Wellness examination 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) Ordered: 10/27/2023 [facility] Work Phone: Comment on above: Ordered: 10/27/2023 Immunizations Immunization Date Immunization Notes Care Provider Fa cility 05-17-2024 influenza, high dose seasonal, preservative-free Karol Wednesday PROJECT/PRODUCTION MANAGER IMAGING Work Phone: [facility] 11-17-2023 ABRYSVO - Respirator y syncytial virus (RSV), vaccine, bivalent, protein subunit RSV prefusion F, diluent reconstituted, 0.5 mL, PF Karol Wednesday PROJECT/PRODUCTION MANAGER IMAGING Work Phone: [facility] 07-12-2023 Influenza, High-dose Seasonal, Quadrivalent, Preservative Free Mono Knowles MD Work Phone: [facility] 12-22-2022 zoster vaccine recombinant D sunni Knowles MD Work Phone: [facility] 06-17-2022 Influenza, High-dose Seasonal, Quadrivalent, Preservative Free Mono Knowles MD Work Phone: [facility] 06-18-2021 Influenza, High-dose Seasonal, Quadrivalent, Preservative Free Mono Knowles MD Work Phone: [facility] 08-01-2020 zoster vaccine recombinant D sunni Knowles MD Work Phone: [facility] 05-30-2020 influenza, high dose seasonal, preservative-free oMno Knowles MD Work Phone: [facility] 06-14-2019 influenza, high dose seasonal, preservative-free Mono Knowles MD Work Phone: [facility] 09-09-2018 influenza, seasonal, injectable, preservative free Mono Knowles MD Work Phone: [facility] 01-31-2018 pneumococcal polysaccharide vaccine, 23 valent Mono Knowles MD Work Phone: [facility] 06-23-2017 influenza, high dose seasonal, preservative-free Mono Knowles MD Work Phone: [facility] 05-14-2016 seasonal influenza, intradermal, preservative free Mono Knowles MD Work Phone: [facility] 10-04-2015 influenza, injectabl e, quadrivalent, preservative free Mono Knowles MD Work Phone: [facility] 07-15-2015 seasonal influenza, intradermal, preservative free Mono Knowles MD Work Phone: [facility] 04-22-2015 pneumococcal conjuga te vaccine, 13 valent Mono Knowles MD Work Phone: [facility] 11-28-2011 tetanus toxoid, redu ria diphtheria toxoid, and acellular pertussis vaccine, adsorbed Mono Knowles MD Work Phone: [facility] Payers Date Payer Category Payer Medicare (Managed Care) JONATHAN DENIS [id number] 2019 Medicare [id number] 2019 Medicare [id number] 2017 Medicaid [id number]. [id number] 2017 Medicaid [id number] 1959 Self-pay 1945 Unknown [id number] 2.840.1.197655.3.579.2. 593 1945 Unknown [id number] 2.840.1.023911.3.579.2. 1285 1945 Unknown [id number] 2.840.1.670330.3.579.2. 1285 1945 Unknown [id number] 2.840.1.377572.3.579.2. 1285 1945 Unknown [id number] 2.840.1.753178.3.579.2. 1285 1945 Unknown [id number] 2.840.1.213773.3.579.2. 128 1945 Unknown [id number] 2.16840.1.822920.3.579.2. 1285 1946 Unknown [id number] 2.840.1.322736.3.579.2. 1285 1945 Unknown [id number] 2.840.1.096652.3.579.2. 128 1945 Unknown [id number] 2.16.840.1.004793.3.579.2. 1286 1945 Unknown [id number] 2.16.840.1.916897.3.579.2. 1286 1945 Unknown [id number] 2.16.840.1.660093.3.579.2. 1286 1945 Unknown [id number] 2.16.840.1.453418.3.579.2. 1286 1946 Unknown [id number] 2.16.840.1.359792.3.579.2. 1286 1946 Unknown [id number] 2.16.840.1.443330.3.579.2. 1259 1946 Unknown [id number] 2.16.840.1.155716.3.579.2. 9 1945 Unknown [id number] 2.16.840.1.639381.3.579.2. 1259 1945 Unknown [id number] 2.16.840.1.395612.3.579.2. 1259 1946 Unknown [id number] 2.16.840.1.296584.3.579.2. 1259 1946 Unknown [id number] 2.16.840.1.423577.3.579.2. 1259 1945 Unknown [id number] 2.16.840.1.347090.3.579.2. 1259 Social History Date Type Detail Facility Start: 01-19-2022 End: 02-02-2023 Tobacco smoking status [facility] Ex-smoker [facility] End: 09-13-2011 History of tobacco use Current smoker [facility] End: 09-13-2011 History of tobacco use Cigarette Smoker [facility] Start: 01-19-2022 End: 02-02-2023 Tobacco use and exposure Smokeless tobacco non-user [facility] Start: 07-26-2023 End: 06-26-2024 Alcohol intake Lifetime non-drinker (finding) [facility] Start: 06-04-2023 End: 10-27-2023 History of Social function [facility] Start: 06-04-2023 End: 10-27-2023 Humiliation, Afraid, Rape, and Kick questionnaire [HARK] [facility] Within the last year , have [...] To some extent [facility] (I/We) worried whe er (my/our) food would run out before (I/we) got money to buy more. Never true [facility] Start: 02-02-2023 Tobacco Comment Quit smoking 1 0 years ago [facility] Start: 02-02-2023 Alcohol Comment Caffeine 1-2 cups/da y [facility] Start: 1945 Sex Assigned At Not on file N [facility] Start: 10-25-2023 End: 12-09-2023 Alcohol intake Current non-drinker of alcohol (finding) [facility] Goals Date Patient Goal Desired Activity /State Personal health goal Comment on above: Formatting of this n ote might be different from the original. Evaluation of progress towards goal: feeling much better today, doing well with therapy Clinical Notes 10-27-2023 to 06-29-2024 Telephone Encounter - Maida Harris - 06/29/2024 1:33 PM EDTTelephone Encounter - Maida Harris - 06/29/2024 1:33 PM Brooke Knowles MD - 06/26/2024 9:30 AM EDT Note Date & Type Note Facility 06-29-2024 Telephone encount er Note ALPRAZolam (Xanax) 1 MG tablet to jessica alonsokaitlin [facility] 06-29-2024 Miscellaneous Notes Formattin g of this note might be different from the original. ALPRAZolam (Xanax) 1 MG tablet to jessica villalobos documented in this encounter [facility] 06-26-2024 History of Presen t illness Narrative Images from the original note were not included. M HPI Follow-up Additional comments: Admitted [facility] 06/21/24 dx: syncope,suspected cva .hypotension discharged home 06/22/24 no med changes made Med Refill Additional comments: Gabapentin.meclizine-- [facility] Last edited by Odalys Villagomez LPN on 06/26/2024 9:36 AM. Subjective Patient ID: Hakeem Escobedo is a 78 y.o. male who presents for Follow-up (Admitted [facility] 06/21/24 dx: syncope,suspected cva .hypotension discharged home 06/22/24 no med changes made) and Med Refill (Gabapentin.meclizine-- [facility]). Flowsheet Row Patient Outreach from 06/23/2024 in [facility] with Karol Joyner LPN Hospital Information ED, Hospital or Penitentiary Facility Discharge? Hospital Patient has been contacted within two business days of discharge Yes Discharge Date 06/22/24 Discharged To: Home Setting Discharge Hospital [facility] Engagement Call Start Time 1330 Admission Date 06/21/24 Medications Discharge medications reviewed and reconciled from hospital? Not applicable [no new meds given, per [facility] sig-other.] Is the patient having any side effects they believe may be caused by any medication additions or changes? No Does the patient have all medications ordered at discharge? Not applicable [no new meds given.] Is the patient taking all medications as directed (includes completed medication regime)? Yes Appointments Does the patient have a primary care provider? Yes Has the patient kept scheduled appointments due by today? Yes Self Management Patient Teaching Does the patient have access to their discharge instructions? Yes What is the patient's perception of their health status since discharge? Same Is the patient/caregiver able to teach back the hierarchy of who to call/visit for symptoms/problems? PCP, Specialist, Home Health nurse, Urgent Care, ED, 911 Yes Wrap Up Is the patient/caregiver familiar with Advance Care Planning? Yes Would the patient like more information on Advance Care Planning? No Wrap Up Additional Comments Per sig other [facility], pt passed out for 10 minutes and his blood pressure was very low. Call End Time 1342 Pt states he has felt tired and has been sleeping more since hosp discharge Pt states after hospital stay and he was home his right leg gave out and he fell Pt feels all of these issues started after getting the covid vaccine recently Pt still has issues with chest wall pain ( was previously) worked up pt states he is still having the musculosketal pain across chest Med Refill Current Outpatient Medications on File Prior to Visit Medication Sig Dispense Refill allopurinol (Zyloprim) 100 MG tablet TAKE ONE TABLET BY MOUTH DAILY 100 tablet 3 ALPRAZolam (Xanax) 1 MG tablet Take 1 tablet (1 mg) by mouth in the morning and 1 tablet (1 mg) before bedtime. 60 tablet 3 amLODIPine (Norvasc) 2.5 MG tablet TAKE ONE TABLET BY MOUTH DAILY 90 tablet 3 carvedilol (Coreg) 25 MG tablet Take 25 mg by mouth in the morning and 25 mg in the evening. clopidogrel (Plavix) 75 MG tablet TAKE ONE TABLET BY MOUTH DAILY 100 tablet 3 HYDROcodone-acetaminophen (Oshkosh) 10-325 MG tablet Take 1 tablet by mouth every 6 (six) hours if needed for severe pain 120 tablet 0 Linzess 72 MCG capsule magnesium 250 MG tablet 1 (one) time each day at the same time. nitroglycerin (Nitrostat) 0.[address] 1 tablet (0.4 mg) under the tongue every 5 (five) minutes if needed for chest pain 90 tablet 12 ondansetron (Zofran) 4 MG tablet Take 4 mg by mouth every 8 (eight) hours if needed. pantoprazole (ProtoNix) 40 MG EC tablet TAKE ONE TABLET BY MOUTH DAILY 100 tablet 3 simvastatin (Zocor) 40 MG tablet Take 1 tablet (40 mg) by mouth at bedtime 100 tablet 3 sucralfate (Carafate) 1 g tablet TAKE ONE TABLET BY MOUTH EVERY MORNING, EVERY EVENING, AND EVERY NIGHT BEFORE BEDTIME 270 tablet 3 tiZANidine (Zanaflex) 4 MG tablet Take 1 tablet (4 mg) by mouth every 12 (twelve) hours if needed for muscle spasms for up to 10 days 20 tablet 0 zolpidem (Ambien) 10 MG tablet Take 1 tablet (10 mg) by mouth at bedtime 30 tablet 2 [DISCONTINUED] gabapentin (Neurontin) 300 MG capsule Take 1 capsule (300 mg) by mouth at bedtime. 90 capsule 3 [DISCONTINUED] HYDROcodone-acetaminophen ([place]) 10-325 MG tablet Take 1 tablet by mouth every 6 (six) hours if needed for severe pain 120 tablet 0 [DISCONTINUED] meclizine (Antivert) 25 MG tablet Take 25 mg by mouth 3 (three) times a day as needed No current facility-administered medications on file prior to visit. I have reviewed and reconciled the history and medication list with the patient today. Allergies Allergen Reactions Pneumococcal 20-Roselyn Conj Vacc Swelling Pneumococcal Vac Polyvalent Swelling Social History Tobacco Use Smoking status: Former Current packs/day: 0.00 Types: Cigarettes Quit date: 09/13/2000 Years since quittin.8 Smokeless tobacco: Never Tobacco comments: Quit smoking 10 years ago Substance Use Topics Alcohol use: Never Comment: Caffeine 1-2 cups/day Drug use: Never Family History Problem Relation Name Age of Onset Other (brain tumor) Mother Hypertension Father Heart disease Father Cancer Maternal Grandmother Cancer Maternal Grandfather Past Medical History: Diagnosis Date Acid reflux Acute renal failure superimposed on stage 3a chronic kidney disease (HCC) (CMS/HCC) 09/20/2020 Antral ulcer 2016 Anxiety Arthritis CAD (coronary artery disease) (CMS/HCC) Colon polyp 2019 Confusion 09/16/2020 Constipation 09/28/2017 COVID-19 09/20/2020 Diverticulosis 2019 Gastritis 2019 Hiatal hernia 2019 History of gastric ulcer Hypertension (CMS/HCC) Injury to penis 06/06/2021 Traumatic rhabdomyolysis (CMS/HCC) 09/20/2020 Tubulovillous adenoma polyp of colon 2019 Past Surgical History: Procedure Laterality Date CATARACT EXTRACTION Right 01/2021 CERVICAL DISCECTOMY 08/16/2017 C4-C5 COLONOSCOPY 2010 COLONOSCOPY 01/27/2019 Colonoscopy & EGD-[facility] COLONOSCOPY W/ POLYPECTOMY 08/2020 [facility] (tubulovillous adenoma) CORONARY ANGIOPLASTY WITH STENT PLACEMENT 2014 x 2 COVID 09/16/2020 hospitalization - [facility], Covid, Rhabdomyolysis EGD 05/2016 with biopsy EGD 08/2020 with Bx-[facility] HERNIA REPAIR 1980 bilateral inguinal hernia repair LEG SURGERY right leg trauma repair NECK SURGERY ORIF HIP FRACTURE Right leg/hi[ VASECTOMY 1980 Visit Vitals BP 124/70 Pulse 63 Ht 5' 6 Wt 184 lb SpO2 97% BMI 29.70 kg/m Smoking Status Former BSA 1.97 m Review of Systems Objective Physical Exam Constitutional: General: He is not in acute distress. Appearance: He is normal weight. He is not ill-appearing. HENT: Head: Normocephalic. Cardiovascular: Rate and Rhythm: Normal rate and regular rhythm. Heart sounds: Normal heart sounds. No murmur heard. Pulmonary: Effort: Pulmonary effort is normal. Breath sounds: Normal breath sounds. Musculoskeletal: General: No swelling. Right lower leg: No edema. Left lower leg: No edema. Neurological: Mental Status: He is alert. Psychiatric: Mood and Affect: Mood normal. Thought Content: Thought content normal. Judgment: Judgment normal. Assessment/Plan Diagnoses and all orders for this visit: Syncope, unspecified syncope type - STRESS NUCLEAR MEDICINE LEXISCAN; Future - The patient was seen today in follow up of recent hospital stay. All available hospital records were reviewed and discussed with the patient. Hospital discharge meds were reviewed. Any changes are noted above. Pain of right thigh - gabapentin (Neurontin) 300 MG capsule; Take 1 capsule (300 mg) by mouth at bedtime Lumbar herniated disc - gabapentin (Neurontin) 300 MG capsule; Take 1 capsule (300 mg) by mouth at bedtime Right lumbar radiculopathy - gabapentin (Neurontin) 300 MG capsule; Take 1 capsule (300 mg) by mouth at bedtime Vertigo - meclizine (Antivert) 25 MG tablet; Take 1 tablet (25 mg) by mouth 3 (three) times a day as needed for dizziness Chest discomfort - STRESS NUCLEAR MEDICINE LEXISCAN; Future Follow up in about 2 weeks (around 07/10/2024) for Test/Lab Review. documented in this encounter [facility] 06-22-2024 Telephone encount er Note OARRS reviewed, Rx sent into patient's pharmacy. [facility] 06-22-2024 Miscellaneous Notes Formattin g of this note might be different from the original. OARRS reviewed, Rx sent into patient's pharmacy. documented in this encounter [facility] 12-09-2023 History of Presen t illness Narrative Hakeem Gregg Date of visit: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
[2024-07-10] MEDS: REGADENOSON 0.4 MG/5 ML SYRINGE IV (09:42)
--- NOTE | 2024-07-10 09:49 | PC.NURSE ---
Nursing Note Cardiac Stress Test Reviewed: Medication, allergies and patient history reviewed. Stress Test: [ x] Patient tolerated stress test well. [ ] Patient unable to tolerate walking on treadmill. Switched to Lexiscan stress test. [x ] No chest pain noted per patient [ ] Chest pain that resolved prior to leaving stress lab. [ ] No dyspnea noted. [ ] Dyspnea that resolved prior to leaving stress lab. [ x] Patient left stress lab asymptomatic and hemodynamically stable. [ ] Patient taken to the Emergency Room due to non-resolving symptoms following stress test. [ ] Patient achieved target heart rate. [ ] Patient unable to achieve target heart rate. [ ] Aminophylline administered as reversal agent to Lexiscan (Regadenoson). [ ] Nitro administered. Nursing Comments:Pt had Lexiscan done. Pt tolerated well. Had a minimal amount of SOB noted after Johana was injected that resolved within a minute. Pt had no issues and no complaints at end of test. Pt was taken to cafeteria to eat prior to second set of imaging.
== END 2024-07-10 08:10 | disposition home or self-care (01) ==
LOC: NM 08:10
PROVIDERS: PCP Internal Medicine; Visit Provider Internal Medicine
DX: R55 Syncope and collapse (principal); R07.89 Other chest pain
CPT/HCPCS: 78452; 93017; A9500; J2785

== ENCOUNTER 2024-09-10 15:28 | Emergency (ER) | payer MEDICARE, MEDICAID, SELFPAY ==
[2024-09-10] VITALS (23 sets, daily range): BP systolic 118–143; BP diastolic 76–85; PULSE 56–68; TEMP 36.4; O2SAT 93–97; BMI 23.4
--- OUTSIDE RECORDS SUMMARY | 2024-09-10 15:34 | XMS_ITS | CCD ---
Author Organization [facility] Care Team Providers Care Paint Spray Tender Name Role Phone DR MONO KNOWLES Attending Unavailable ESHA, DR FOREMAN Primary Care Unavailable ESHA, DR FOREMAN Admitting Unavailable Mono Knowles MD Unavailable [phone] Mono Knowles MD Primary Care Provider Mono Knowles MD Primary Care Provider MONO KNOWLES Attending Unavailable MONO KNOWLES Attending Unavailable MONO KNOWLES Attending Unavailable MONO KNOWLES Attending Unavailable YVETTE RAY Attending Unavailable MONO KNOWLES Attending Unavailable MONO KNOWLES Attending Unavailable KE SANCHEZ Referring Unavailable KE SANCHEZ Referring Unavailable MONO KNOWLES B Attending Unavailable GUME SON Attending Unavailable MONO KNOWLES B Referring Unavailable ESHA MONO B Primary Care Unavailable ESHA MONO B Referring Unavailable ESHA, MONO B Primary Care Unavailable KNOWLES, MONO B Primary Care Unavailable JOMAR SCHWARTZ Attending Unavailable JOMAR SCHWARTZ Attending Unavailable JOMAR SCHWARTZ A Referring Unavailable ESHA MONO B Primary Care Unavailable ESHA MONO B Primary Care Unavailable RYLAN ANDRES T Attending Unavailable DMITRY, RYLAN T Attending Unavailable DMITRY, RYLAN T Referring Unavailable KNOWLES, MONO B Primary Care Unavailable DMITRY, RYLAN T Attending Unavailable DMITRY, RYLAN T Referring Unavailable KNOWLES, MONO B Primary Care Unavailable DMITRY, RYLAN T Attending Unavailable DMITRY, RYLAN T Referring Unavailable ESHA, MONO B Primary Care Unavailable ESHA, MONO B Primary Care Unavailable JOMAR SCHWARTZ Attending Unavailable ROBERT CURRY Admitting Unavailable ESHA MONO B Referring Unavailable ESHA MONO B Primary Care Unavailable Allergies Allergy Classification Reported Allergen(s) Allergy Type Date of Onset Reaction(s) Facility Unclassified (1 source) Pneumovax 23 Drug allergy (disorder) [facility] (20 sources) Pneumococcal 20-Danay Conj Vacc Drug Intolerance 1 Swelling [facility] Work Phone: (20 sources) Pneumococcal Vac Polyvalent Drug Allergy 1 Swelling [facility] (8 sources) Streptococcus pneumoniae type 1 capsular polysaccharide [...] type 9V capsular polysaccharide antigen; Translations: [PNEUMOCOCCAL 23-DANAY PS VACCINE] Drug Allergy 1 Swelling [facility] Medications Current Medications Medication Drug Class(es) Dates Sig (Normalized) Sig (Original) acetaminophen 325 mg / HYDROcodone bitartrate 10 mg oral tablet (20 sources) Opioid Agonist Start: 08-17-2024 End: 09-16-2024 take 1 tablet by mouth every six hours for pain HYDROcodone-aceta minophen ([place]) 10-325 MG tablet Indications: Cervical stenosis of spinal canal Take 1 tablet by mouth every 6 (six) hours if needed for severe pain 120 tablet 08/17/2024 09/16/2024 Active Start: 05-24-2024 take 1 tablet by fatimah th every six hours for pain HYDROcodone-acetaminophen ([place]) 10-325 MG tablet Indications: Cervical stenosis of spinal canal Take 1 tablet by mouth every 6 (six) hours if needed for severe pain 120 tablet 05/24/2024 Active Start: 04-27-2024 End: 09-16-2024 take 1 tablet by mouth every six hours for pain HYDROcodone-acetaminophen ([place]) 10-325 MG tablet Indications: Cervical stenosis of spinal canal Take 1 tablet by mouth every 6 (six) hours if needed for severe pain 120 tablet 08/17/2024 09/16/2024 Active Start: 10-06-2023 take 1 tablet by fatimah th every six hours for pain HYDROcodone-acetaminophen ([place]) 10-325 MG tablet Indications: Cervical stenosis of spinal canal Take 1 tablet by mouth every 6 (six) hours if needed for severe pain 120 tablet 0 10/06/2023 Active Start: 01-14-2022 HYDROcodone-ac etaminophen ([place]) 10-325 mg per tablet as needed. 01/14/2022 Active allopurinol 100 mg oral tablet (20 sources) Xanthine Oxidase Inhibitor Start: 02-08-2024 take 1 tablet by mouth once daily allopurinol (Zyloprim) 100 MG tablet Indications: Mixed hyperlipidemia (CMS/HCC) TAKE ONE TABLET BY MOUTH DAILY 100 tablet 3 02/08/2024 Active ALPRAZolam 1 mg oral tablet (20 sources) Benzodiazepine Start: 03-03-2024 End: 06-29-2024 take [...] by mouth nightly as needed for anxiety. Active amLODIPine 2.5 mg oral tablet (20 sources) Dihydropyridine Calcium Channel Antonia Start: 06-18-2023 End: 07-28-2025 take 1 tablet by mouth once daily amLODIPine (Norvasc) 2.5 MG tablet Indications: Benign essential hypertension (CMS/HCC) Take 1 tablet (2.5 mg) by mouth Daily 90 tablet 3 07/28/2024 07/28/2025 Active amoxicillin 875 mg oral tablet (3 sources) Penicillin-class Antibacterial Start: 05-24-2024 End: 06-03-2024 take 1 tablet by mouth in the morning amoxicillin (Amoxil) 875 MG tablet Indications: Parotiditis Take 1 tablet (875 mg) by mouth in the morning and 1 tablet (875 mg) before bedtime. Do all this for 10 days. 20 tablet 05/24/2024 06/03/2024 Active azithromycin 250 mg oral tablet (3 sources) Macrolide Antimicrobial Start: 08-31-2024 End: 09-05-2024 take 2 tablets by mouth once daily, then take 1 tablet by mouth once daily azithromycin (Zithromax) 250 MG tablet Indications: Upper respiratory tract infection, unspecified type Take 2 tablets (500 mg) by mouth Daily for 1 day, THEN 1 tablet (250 mg) Daily for 4 days. 6 tablet 08/31/2024 09/05/2024 Active Start: 05-10-2024 End: 05-15-2024 take 2 tablets by mouth once daily, then take 1 tablet by mouth once daily azithromycin (Zithromax) 250 MG tablet Indications: Subacute cough , Acute bronchitis, unspecified organism Take 2 tablets (500 mg) by mouth Daily for 1 day, THEN 1 tablet (250 mg) Daily for 4 days. 6 tablet 05/10/2024 05/15/2024 Active carvedilol 25 mg oral tablet (20 sources) alpha-Adrenergic Antonia, beta-Adrenergic Antonia Start: 07-23-2022 End: 10-28-2023 take 1 tablet by mouth in the morning carvedilol (Coreg) 25 MG tablet Take 25 mg by mouth in the morning and 25 mg in the evening. 07/23/2022 Active celecoxib 200 mg oral capsule (9 sources) Nonsteroidal Anti-inflammatory Drug Start: 08-14-2024 End: 08-14-2025 take 1 capsule by mouth once daily celecoxib (CeleBREX) 200 MG capsule Indications: Costochondritis, acute Take 1 capsule (200 mg) by mouth Daily 90 capsule 3 08/14/2024 08/14/2025 Active Start: 07-12-2024 End: 08-11-2024 take 1 capsule by mouth once daily celecoxib (CeleBREX) 200 MG capsule Indications: Costochondritis, acute Take 1 capsule (200 mg) by mouth Daily 30 capsule 07/12/2024 08/11/2024 Active clopidogrel 75 mg oral tablet (20 sources) [id number] Platelet Inhibitor Start: 08-30-2024 take 1 tablet by mouth once daily clopidogrel (Plavix) 75 MG tablet Indications: Mixed hyperlipidemia (CMS/HCC) Take 1 tablet (75 mg) by mouth Daily 100 tablet 3 08/30/2024 Active Start: 08-30-2024 take 1 tablet by fatimah th once daily clopidogrel (Plavix) 75 MG tablet Indications: Mixed hyperlipidemia (CMS/HCC) Take 1 tablet (75 mg) by mouth Daily 100 tablet 3 08/30/2024 Active Start: 09-10-2019 End: 08-30-2024 take 1 tablet by mouth once daily clopidogrel (Plavix) 75 MG tablet Indications: Mixed hyperlipidemia (CMS/HCC) TAKE ONE TABLET BY MOUTH DAILY 100 tablet 3 10/04/2023 Active colchicine 0.6 mg oral capsule (10 sources) Start: 07-08-2022 take 1 capsule by mouth in the morning colchicine (MITIGARE) 0.6 mg capsule Take 1 capsule (0.6 mg total) by mouth in the morning. 07/08/2022 Active Comirnaty 30 MCG/0.3ML suspension prefilled syringe (3 sources) Start: 06-21-2023 End: 10-27-2023 Comirnaty 30 MCG/0.3ML suspension prefilled syringe Start: 06-21-2023 Comirnaty 30 M CG/0.3ML suspension prefilled syringe dicyclomine hydrochloride 20 mg oral tablet (3 sources) Anticholinergic Start: 10-24-2023 take 1 tablet by mouth every six hours dicyclomine (BENTYL) 20 mg tablet Take 1 tablet (20 mg total) by mouth every 6 (six) hours. 10/24/2023 Active famotidine 20 mg oral tablet (3 sources) Histamine-2 Receptor Antagonist Start: 11-02-2023 take 1 tablet by mouth in the morning famotidine (PEPCID) 20 mg tablet Take 1 tablet (20 mg total) by mouth in the morning. 11/02/2023 Active Fluzone High-Dose Quadrivalent syringe (3 sources) Start: 07-12-2023 End: 10-27-2023 Fluzone High-Dose Quadrivalent syringe Start: 07-12-2023 Fluzone High-D ose Quadrivalent syringe gabapentin 300 mg oral capsule (20 sources) Anti-epileptic Agent Start: 07-26-2023 End: 08-16-2025 take 1 capsule by mouth at bedtime gabapentin (Neurontin) 300 MG capsule Indications: Pain of right thigh , Lumbar herniated disc , Right lumbar radiculopathy Take 1 capsule (300 mg) by mouth at bedtime 100 capsule 3 07/12/2024 08/16/2025 Active linaclotide 0.072 mg oral capsule (20 sources) Guanylate Cyclase-C Agonist Start: 03-21-2024 End: 08-30-2024 Linzess 72 MCG capsule 03/21/2024 08/30/2024 Discontinued Start: 03-25-2023 take 1 capsule by mo uth before mealtime linaCLOtide (Linzess) 72 MCG capsule Indications: Drug induced constipation Take 1 capsule (72 mcg) by mouth in the morning. Take before meals. 30 capsule 5 03/25/2023 Active Magnesium (20 sources) End: 08-30-2024 magnesium 250 MG tablet 1 (o ne) time each day at the same time. 08/30/2024 Discontinued magnesium 250 MG tablet 1 (one) time each day at the same time. Active magnesium 250 MG tablet 1 (one) time each day at the same time. 0 Active meclizine hydrochloride 25 mg oral tablet (20 sources) Antiemetic Start: 05-18-2024 End: 08-14-2025 take 1 tablet by mouth three times daily as needed for dizziness meclizine (Antivert) 25 MG tablet Indications: Vertigo Take 1 tablet (25 mg) by mouth 3 (three) times a day as needed for dizziness 60 tablet 3 08/14/2024 08/14/2025 Active methylPREDNISolone 4 mg oral tablet (7 sources) Corticosteroid Start: 08-22-2024 End: 08-30-2024 methylPREDNISolone (Medrol Dospak) 4 MG tablets Indications: Parotiditis TAKE BY MOUTH INSTRUCTED - PER PACKAGE INSTRUCTIONS 21 tablet 08/22/2024 08/30/2024 Discontinued (Therapy completed) Start: 05-24-2024 End: 05-31-2024 methylPREDNISolone (Medrol D ospak) 4 MG tablets Indications: Parotiditis Follow schedule on package instructions 21 tablet 05/24/2024 05/31/2024 Active Start: 05-10-2024 End: 05-17-2024 methylPREDNISolone (Medrol D [place]) 4 MG tablets Indications: Subacute cough , Acute bronchitis, unspecified organism Follow schedule on package instructions 21 tablet 05/10/2024 05/17/2024 Active nitroglycerin 0.4 mg sublingual tablet (20 sources) Nitrate Vasodilator Start: 10-27-2023 End: 10-26-2024 nitroglycerin (Nitrostat) 0.4 MG SL tablet Indications: Atherosclerosis of [place] coronary artery of [place] heart with stable angina pectoris (CMS/HCC) Place 1 tablet (0.4 mg) under the tongue every 5 (five) minutes if needed for chest pain 90 tablet 12 10/27/2023 10/26/2024 Active nystatin 207073 unt/ml oral suspension (4 sources) Polyene Antifungal Start: 08-22-2024 End: 08-30-2024 take 5 mL by mouth four times daily at bedtime nystatin (Mycostatin) [id number] UNIT/ML suspension Indications: Thrush SWISH AND SWALLOW FIVE MILLILITERS BY MOUTH FOUR TIMES A DAY FOR 14 DAYS (MORNING, NOON, EVENING, BEFORE BEDTIME) 280 mL 08/22/2024 08/30/2024 Discontinued (Therapy completed) Start: 06-01-2024 End: 06-15-2024 nystatin (Mycostatin) [id number] UNIT/ML suspension Indications: Thrush Take 5 mL (500,000 Units) by mouth in the morning and 5 mL (500,000 Units) at noon and 5 mL (500,000 Units) in the evening and 5 mL (500,000 Units) before bedtime. Do all this for 14 days. Swish and swallow. 280 mL 06/01/2024 06/15/2024 Active ondansetron 4 mg oral tablet (20 sources) Serotonin-3 Receptor Antagonist take 1 tablet by mouth every eight hours as needed ondansetron (Zofran) 4 MG tablet Take 4 mg by mouth every 8 (eight) hours if needed. Active pantoprazole 40 mg delayed release oral tablet (20 sources) Proton Pump Inhibitor Start: 10-04-19 take 1 tablet by mouth once daily pantoprazole (ProtoNix) 40 MG EC tablet Indications: Benign essential hypertension (CMS/HCC) TAKE ONE TABLET BY MOUTH DAILY 100 tablet 3 10/04/2023 Active predniSONE 10 mg oral tablet (1 source) Start: 08-31-20 End: 09-05-20 take 1 tablet by mouth once daily predniSONE (Deltasone) 10 MG tablet Indications: Upper respiratory tract infection, unspecified type Take 1 tablet (10 mg) by mouth Daily for 5 days 5 tablet 08/31/2024 09/05/2024 Active simvastatin 40 mg oral tablet (20 sources) HMG-CoA Reductase Inhibitor Start: 02-08-20 take 1 tablet by mouth at bedtime simvastatin (Zocor) 40 MG tablet Indications: Atherosclerosis of [place] coronary artery of [place] heart without angina pectoris (CMS/HCC) Take 1 tablet (40 mg) by mouth at bedtime 100 tablet 3 02/08/2024 Active Start: 10-06-2023 End: 01-14-2024 take 1 tablet by mouth at bedtime simvastatin (Zocor) 40 MG tablet Indications: Atherosclerosis of [place] coronary artery of [place] heart without angina pectoris (CMS/HCC) Take 1 tablet (40 mg) by mouth at bedtime 100 tablet 0 10/06/2023 01/14/2024 Active sucralfate 1000 mg oral tablet (20 sources) Aluminum Complex Start: 09-18-2022 End: 02-02-2024 take 1 tablet by mouth once daily at bedtime sucralfate (Carafate) 1 g tablet Indications: Gastroesophageal reflux disease with esophagitis without hemorrhage TAKE ONE TABLET BY MOUTH EVERY MORNING, EVERY EVENING, AND EVERY NIGHT BEFORE BEDTIME 270 tablet 3 01/19/2024 Active tiZANidine 4 mg oral tablet (15 sources) Central alpha-2 Adrenergic Agonist Start: 07-20-2024 End: 08-30-2024 take 1 tablet by mouth every twelve hours as needed for muscle spasms tiZANidine (Zanaflex) 4 MG tablet Indications: Chest wall pain TAKE 1 TABLET BY MOUTH EVERY 12 HOURS NEEDED FOR MUSCLE SPASMS UP TO 10 DAYS 20 tablet 07/20/2024 08/30/2024 Discontinued (Side effects) Start: 07-19-2024 take 1 tablet by fatimah th every twelve hours as needed for muscle spasms tiZANidine (Zanaflex) 4 MG tablet Indications: Chest wall pain TAKE ONE TABLET BY MOUTH EVERY 12 HOURS NEEDED FOR MUSCLE SPASMS FOR UP TO 10 DAYS 20 tablet 07/19/2024 Active Start: 06-09-2024 take 1 tablet by mouth once ti ZANidine (Zanaflex) 4 MG tablet Indications: Chest wall pain Take 1 tablet (4 mg) by mouth every 12 (twelve) hours if needed for muscle spasms for up to 10 days 20 tablet 06/09/2024 Active zolpidem tartrate 10 mg oral tablet (20 sources) gamma-Aminobutyric Acid-ergic Agonist Start: 08-18-2023 take 1 tablet by mouth at bedtime zolpidem (Ambien) 10 MG tablet Indications: Chronic insomnia Take 1 tablet (10 mg) by mouth at bedtime 30 tablet 2 04/05/2024 Active Completed/Discontinued Medications Medication Drug Class(es) Dates [...] Problem Date Documented Da te Episodic/Chronic Acute cerebrovascular disease (10 sources) Cerebrovascular accident; Translations: [Cerebral infarction, unspecified] Onset: 4 08-10-2024 Chronic Anxiety disorders (20 sources) Anxiety; Translations: [Anxiety disorder, unspecified] Onset: 3 01-19-2023 Chronic Chronic kidney disease (20 sources) Chronic kidney disease stage 3B ; Translations: [Stage 3b chronic kidney disease (HCC)] Onset: 3 01-19-2023 Chronic Conditions associated with dizziness or vertigo (4 sources) Vertigo; Translations: [Dizziness and giddiness] Onset: 4 06-26-2024 Episodic Coronary atherosclerosis and other heart disease (20 sources) Coronary occlusion; Translations: [Atherosclerotic heart disease of [place] coronary artery without angina pectoris] Onset: 4 Resolved: 4 01-19-2023 Chronic Diseases of mouth; excluding dental (3 sources) Parotitis; Translations: [Sialoadenitis, unspecified] 07-19-2024 Episodic Disorders of lipid metabolism (20 sources) Hyperlipidemia; Translations: [Hyperlipidemia, unspecified] Onset: 4 Resolved: 8 01-19-2023 Chronic Diverticulosis and diverticulitis (20 sources) Diverticulosis of colon; Translations: [Diverticulosis of large intestine without perforation or abscess without bleeding] Onset: 9 Resolved: 4 01-19-2023 Chronic E Codes: Fall (1 source) Fall Onset: 4 Esophageal disorders (20 sources) Gastro-esophageal reflux disease with esophagitis; Translations: [Gastroesophageal reflux disease with esophagitis without hemorrhage] Onset: 7 Resolved: 3 01-19-2023 Chronic Essential hypertension (20 sources) Benign essential hypertension; Translations: [Essential (primary) hypertension] Onset: 0 Resolved: 3 01-19-2023 Chronic Gout and other crystal arthropathies (20 sources) Chronic gouty arthritis; Translations: [Idiopathic chronic gout, unspecified site, without tophus (tophi)] Onset: 3 01-19-2023 Chronic Hyperplasia of prostate (20 sources) Benign prostatic hyperplasia; Translations: [Benign prostatic hyperplasia without lower urinary tract symptoms] Onset: 1 02-03-2023 Chronic Miscellaneous mental health disorders (20 sources) Chronic insomnia; Translations: [Psychophysiologic insomnia] Onset: 3 01-19-2023 Chronic Mycoses (2 sources) Candidiasis of mouth; Translations: [Candidal stomatitis] 07-19-2024 Episodic Osteoarthritis (20 sources) Arthritis of right hip; Translations: [Unilateral primary osteoarthritis, right hip] Onset: 9 01-19-2023 Chronic Other bone disease and musculoskeletal deformities (2 sources) Costal chondritis; 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 [[place]]] 07-12-2024 Episodic Other gastrointestinal disorders (20 sources) 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; Translations: [Irritable bowel syndrome with constipation] Onset: 4 10-27-2023 Chronic Other nervous system disorders (20 sources) Chronic pain; Translations: [Other chronic pain] Onset: 3 01-19-2023 Chronic Other nervous system disorders (20 sources) Chronic postoperative pain; Translations: [Other chronic postprocedural pain] Onset: 7 02-03-2023 Chronic Other nervous system disorders (6 sources) Dysarthria; Translations: [Dysarthria and anarthria] 08-30-2024 Episodic Other nervous system disorders (1 source) Dysarthria and anarthria; Translations: [Dysarthria and anarthria] Onset: 4 Episodic Other nutritional; endocrine; and metabolic disorders (20 sources) Hypocalcemia; Translations: [Hypocalcemia] Onset: 3 01-19-2023 Chronic Other nutritional; endocrine; and metabolic disorders (20 sources) Body mass index 30+ - obesity; Translations: [Obesity, unspecified] Onset: 2 01-19-2023 Chronic Other screening for suspected conditions (not mental disorders or infectious disease) (1 source) Increased blood lead level; Translations: [Abnormal lead level in blood] 08-24-2024 Episodic Other upper respiratory infections (1 source) Upper respiratory infection; Translations: [Acute upper respiratory infection, unspecified] 08-31-2024 Episodic Peripheral and visceral atherosclerosis (7 sources) Arteriosclerotic vascular disease; Translations: [Unspecified atherosclerosis] Onset: 3 09-18-2022 Chronic Spondylosis; intervertebral disc disorders; other back problems (20 sources) Cervical spondylosis without myelopathy; Translations: [Spondylosis without myelopathy or radiculopathy, cervical region] Onset: 1 01-19-2023 Chronic Spondylosis; intervertebral disc disorders; other back problems (20 sources) Spinal stenosis in cervical region; Translations: [Spinal stenosis, cervical region] Onset: 9 Resolved: 4 01-19-2023 Episodic Syncope (4 sources) Syncope; Translations: [Syncope and collapse] 06-26-2024 Episodic Unclassified (1 source) Ill Onset: 4 Unclassified (1 source) Subacute cough; Translations: [Subacute cough] Onset: Past or Other Problems Problem Classification Problem Date Documented Da te Episodic/Chronic Abdominal hernia (20 sources) Hiatal hernia; Translations: [Diaphragmatic hernia without obstruction or gangrene] Onset: 09-18-2022 01-19-2023 Episodic Abdominal pain (1 source) Abdominal pain Onset: 10-25-2023 Episodic Acute and unspecified renal failure (20 sources) [id number] renal failure; Translations: [Acute kidney failure, unspecified] Onset: 09-20-2020 Resolved: 02-03-2023 02-03-2023 Episodic Acute bronchitis (2 sources) Acute bronchitis; Translations: [Acute bronchitis, unspecified] 05-10-2024 Episodic Acute myocardial infarction (20 sources) Myocardial infarction; Translations: [Acute myocardial infarction, unspecified] Onset: 09-13-2016 Resolved: 02-03-2023 02-03-2023 Chronic Coronary atherosclerosis and other heart disease (20 sources) Stented coronary artery; Translations: [Presence of coronary angioplasty implant and graft] Onset: 09-22-2013 Resolved: 08-02-2018 02-03-2023 Episodic E Codes: Fall (1 source) Unspecified fall, initial encounter; Translations: [Unspecified fall, initial encounter] Onset: 05-18-2024 Episodic Gastritis and duodenitis (20 sources) Gastritis; Translations: [Gastritis, unspecified, without bleeding] Onset: 09-18-2022 01-19-2023 Episodic Gastroduodenal ulcer (except hemorrhage) (20 sources) H/O: gastric ulcer; Translations: [Personal history of peptic ulcer disease] Onset: 09-18-2022 02-03-2023 Episodic Gastrointestinal hemorrhage (1 source) Rectal hemorrhage Onset: 10-25-2023 Episodic Genitourinary symptoms and ill-defined conditions (7 sources) Disorder of the urinary system; Translations: [Disorder of urinary system, unspecified] Onset: 06-06-2021 08-22-2021 Episodic Inflammatory conditions of male genital organs (20 sources) Balanitis; Translations: [Balanitis] Onset: 06-06-2021 Resolved: 02-03-2023 02-03-2023 Chronic Malaise and fatigue (1 source) Weakness; Translations: [Weakness] Onset: 09-05-2024 Episodic Nonspecific chest pain (20 sources) Chest pain; Translations: [Chest pain, unspecified] Onset: 01-23-2017 Resolved: 02-03-2023 02-03-2023 Episodic Other and unspecified benign neoplasm (20 sources) History of polyp of colon; Translations: [Personal history of colonic polyps] Onset: 04-26-2019 02-03-2023 Episodic Other and unspecified benign neoplasm (7 sources) Polyp of colon; Translations: [Polyp of colon] Onset: 09-18-2022 09-18-2022 Episodic Other connective tissue disease (20 sources) Pain of right thigh; Translations: [Pain in right thigh] Onset: 01-19-2023 01-19-2023 Episodic Other gastrointestinal disorders (20 sources) History of disorder of digestive system; Translations: [Personal history of other diseases of the digestive system] Onset: 07-12-2020 02-03-2023 Episodic Other gastrointestinal disorders (20 sources) Constipation; Translations: [Constipation, unspecified] Onset: 09-28-2017 Resolved: 02-03-2023 02-03-2023 Episodic Other injuries and conditions due to external causes (20 sources) Injury of penis; Translations: [Unspecified injury of external genitals, initial encounter] Onset: 06-06-2021 Resolved: 02-03-2023 02-03-2023 Episodic Other injuries and conditions due to external causes (20 sources) Traumatic rhabdomyolysis; Translations: [Traumatic ischemia of muscle, initial encounter] Onset: 09-20-2020 Resolved: 02-03-2023 02-03-2023 Episodic Other lower respiratory disease (2 sources) Cough; Translations: [Subacute cough] 05-10-2024 Episodic Other male genital disorders (7 sources) Phimosis; Translations: [Phimosis] Onset: 06-06-2021 07-04-2021 Episodic Residual codes; unclassified (20 sources) Confusional state; Translations: [Disorientation, unspecified] Onset: 09-16-2020 Resolved: 02-03-2023 02-03-2023 Episodic Viral infection (20 sources) Disease caused by 2019-nCoV; Translations: [COVID-19] Onset: 09-20-2020 Resolved: 02-03-2023 02-03-2023 Episodic Results Test Name Value Interpretation Reference Range Facility MR LUMBAR SPINE WO CONTRASTo n 08-23-2024 MR LUMBAR SPINE WO CONTRAST TITLE OF EXAM: MR LUMBAR SPINE WO CONTRAST REASON FOR EXAM: Mid and low back pain, right arm pain, right leg pain, no injury TECHNIQUE: Multisequence, multiplanar MRI of the thoracic spine COMPARISON: None. FINDINGS: Patient motion during image acquisition hinders evaluation. General findings: There are 12 rib-bearing thoracic and 5 rib-bearing lumbar vertebrae. No fracture; normal vertebral body heights. Anatomic alignment of the vertebral bodies and posterior elements. Straightening of normal lumbar lordosis. Marrow: Normal. Spinal canal: No mass. Normal cord signal and caliber. The conus medullaris is at the level of L1. No thickening/clumping of cauda equina nerve roots. Paraspinal muscles and visualized soft tissues: Erector spinae atrophy/fatty replacement. There are several simple appearing central renal pelvic cysts. Degenerative findings: Thoracic spine: Scattered degenerative changes are radiographically mild, contributing to no greater than mild spinal canal stenosis. Neural foraminal stenosis is greatest on the left at T8-9 related to facet hypertrophy, mild to moderate. Lumbar spine: T12-L1: Mild anterior endplate proliferation. No spinal canal or neural foraminal stenosis. L1-2: Mild anterior endplate proliferation. Tiny broad-based disc bulge. No spinal canal or neural foraminal stenosis. L2-3: Moderate bilateral facet osteoarthrosis. Tiny broad-based disc bulge. Mild bilateral neural foraminal and moderate spinal canal stenosis. L3-4: Mild bilateral facet osteoarthrosis. Mild to moderate bilateral neural foraminal stenosis. No significant spinal canal narrowing. L4-5: Mild bilateral facet osteoarthrosis. Broad-based disc bulge. Mild to moderate bilateral neural foraminal and mild spinal canal stenosis. L5-S1: Mild degenerative disc disease with small broad-based disc bulge. No significant spinal canal or neural foraminal stenosis. IMPRESSION: 1. Patient motion during image acquisition hinders evaluation. 2. No thoracic or lumbar spine fracture or significant listhesis. 3. Degenerative changes as detailed, most significantly contributing to moderate spinal canal stenosis at L2-3. Neural foraminal stenosis is no greater than mild to moderate at any level. DICTATED ON: 08/23/2024 11:33 AM This report has been electronically signed and approved by the interpreting radiologist. Normal Not Available MR THORACIC SPINE WO CONTRAS Ton 08-23-2024 MR THORACIC SPINE WO CONTRAST TITLE OF EXAM: MR THORACIC SPINE WO CONTRAST REASON FOR EXAM: Mid and low back pain, right arm pain, right leg pain, no injury TECHNIQUE: Multisequence, multiplanar MRI of the thoracic spine COMPARISON: None. FINDINGS: Patient motion during image acquisition hinders evaluation. General findings: There are 12 rib-bearing thoracic and 5 rib-bearing lumbar vertebrae. No fracture; normal vertebral body heights. Anatomic alignment of the vertebral bodies and posterior elements. Straightening of normal lumbar lordosis. Marrow: Normal. Spinal canal: No mass. Normal cord signal and caliber. The conus medullaris is at the level of L1. No thickening/clumping of cauda equina nerve roots. Paraspinal muscles and visualized soft tissues: Erector spinae atrophy/fatty replacement. There are several simple appearing central renal pelvic cysts. Degenerative findings: Thoracic spine: Scattered degenerative changes are radiographically mild, contributing to no greater than mild spinal canal stenosis. Neural foraminal stenosis is greatest on the left at T8-9 related to facet hypertrophy, mild to moderate. Lumbar spine: T12-L1: Mild anterior endplate proliferation. No spinal canal or neural foraminal stenosis. L1-2: Mild anterior endplate proliferation. Tiny broad-based disc bulge. No spinal canal or neural foraminal stenosis. L2-3: Moderate bilateral facet osteoarthrosis. Tiny broad-based disc bulge. Mild bilateral neural foraminal and moderate spinal canal stenosis. L3-4: Mild bilateral facet osteoarthrosis. Mild to moderate bilateral neural foraminal stenosis. No significant spinal canal narrowing. L4-5: Mild bilateral facet osteoarthrosis. Broad-based disc bulge. Mild to moderate bilateral neural foraminal and mild spinal canal stenosis. L5-S1: Mild degenerative disc disease with small broad-based disc bulge. No significant spinal canal or neural foraminal stenosis. IMPRESSION: 1. Patient motion during image acquisition hinders evaluation. 2. No thoracic or lumbar spine fracture or significant listhesis. 3. Degenerative changes as detailed, most significantly contributing to moderate spinal canal stenosis at L2-3. Neural foraminal stenosis is no greater than mild to moderate at any level. DICTATED ON: 08/23/2024 11:33 AM This report has been electronically signed and approved by the interpreting radiologist. Normal Not Available CBC AND AUTO DIFFon 08-12-20 24 ABSOLUTE BASOPHIL 0.0 X10E9/L Normal 0.0-0.2 [facility] Comment on above: Performed By: #### C BCA, PINR, 44462-0, 88254-3, BMP, 3040-3, LIVR, 93106-1, 17400-4 #### [facility] ([id number]) [address] [place] [address] 12236 ABSOLUTE NEUTROPHIL 5.7 X10E9/L Normal 1.5-6.6 [facility] Comment on above: Performed By: #### C BCA, PINR, 04501-4, 77326-5, BMP, 3040-3, LIVR, 80171-2, 02801-2 #### [facility] ([id number]) [address] [place] [address] 34874 Basophils/100 WBC (Bld) 0.4 % Normal [facility] Comment on above: Performed By: #### C BCA, PINR, 89211-2, 94238-9, BMP, 3040-3, LIVR, 32977-0, 94322-3 #### [facility] ([id number]) [address] [place] [address] 98178 Eosinophils (Bld) [#/Vol] 0.2 10*3/uL Normal 0.0-0.4 [facility] Comment on above: Performed By: #### C BCA, PINR, 53491-3, 82267-7, BMP, 3040-3, LIVR, 58406-6, 35223-3 #### [facility] ([id number]) [address] [place] [address] 81575 Eosinophils/100 WBC (Bld) 2.1 % Normal [facility] Comment on above: Performed By: #### C BCA, PINR, 34827-9, 91141-2, BMP, 3040-3, LIVR, 46110-2, 67168-0 #### [facility] ([id number]) [address] [place] [address] 88248 Erythrocyte distribution width (RBC) [Ratio] 14.6 % Normal 11.5-15.0 [facility] Comment on above: Performed By: #### C BCA, PINR, 21287-1, 60838-9, BMP, 3040-3, LIVR, 60413-1, 51172-1 #### [facility] ([id number]) [address] [place] [address] 03815 Hematocrit (Bld) [Volume fraction] 40.5 % Normal 39-49 [facility] Comment on above: Performed By: #### C BCA, PINR, 63240-9, 03517-7, BMP, 3040-3, LIVR, 11604-9, 09860-4 #### [facility] ([id number]) [address] [place] [address] 14487 Hemoglobin (Bld) [Mass/Vol] 13.5 g/dL Normal 13.0-17.0 [facility] Comment on above: Performed By: #### C BCA, PINR, 21856-0, 67525-5, BMP, 3040-3, LIVR, 09636-6, 12447-4 #### [facility] ([id number]) [address] [place] [address] 76753 Lymphocytes (Bld) [#/Vol] 1.9 10*3/uL Normal 1.0-3.5 [facility] Comment on above: Performed By: #### C BCA, PINR, 71642-1, 79564-5, BMP, 3040-3, LIVR, 09611-4, 39277-2 #### [facility] ([id number]) [address] [place] [address] 50774 Lymphocytes/100 WBC (Bld) 22.0 % Normal [facility] Comment on above: Performed By: #### C BCA, PINR, 27159-4, 22017-9, BMP, 3040-3, LIVR, 68667-2, 25202-1 #### [facility] ([id number]) [address] [place] [address] 17995 MCH (RBC) [Entitic mass] 29.8 pg Normal 27-34 [facility] Comment on above: Performed By: #### C BCA, PINR, 40111-4, 52768-1, BMP, 3040-3, LIVR, 69031-8, 44846-7 #### [facility] ([id number]) [address] [place] [address] 97729 MCHC (RBC) [Mass/Vol] 33.5 g/dL Normal 32-36 [facility] Comment on above: Performed By: #### C BCA, PINR, 77741-7, 63735-9, BMP, 3040-3, LIVR, 15648-6, 22911-6 #### [facility] ([id number]) [address] [place] [address] 48808 MCV (RBC) [Entitic vol] 89 fL Normal 80-100 [facility] Comment on above: Performed By: #### C BCA, PINR, 49972-1, 66538-1, BMP, 3040-3, LIVR, 77654-1, 79418-9 #### [facility] ([id number]) [address] [place] [address] 50553 Monocytes (Bld) [#/Vol] 0.8 10*3/uL Normal 0-0.9 [facility] Comment on above: Performed By: #### C BCA, PINR, 81018-2, 28062-4, BMP, 3040-3, LIVR, 08519-4, 53004-5 #### [facility] ([id number]) [address] [place] [address] 22968 Monocytes/100 WBC (Bld) 9.4 % Normal [facility] Comment on above: Performed By: #### C BCA, PINR, 73025-1, 42129-1, BMP, 3040-3, LIVR, 75820-2, 86459-8 #### [facility] ([id number]) [address] [place] [address] 92334 Neutrophils/100 WBC (Bld) 66.1 % Normal [facility] Comment on above: Performed By: #### C BCA, PINR, 89442-2, 02436-2, BMP, 3040-3, LIVR, 62879-8, 22605-1 #### [facility] ([id number]) [address] [place] [address] 17311 Platelet mean volume (Bld) [Entitic vol] 8.0 fL Normal 7-12 [facility] Comment on above: Performed By: #### C BCA, PINR, 57425-0, 87047-7, BMP, 3040-3, LIVR, 99333-3, 40152-9 #### [facility] ([id number]) [address] [place] [address] 63178 Platelets (Bld) [#/Vol] 158 10*3/uL Normal 150-450 [facility] Comment on above: Performed By: #### C BCA, PINR, 07430-5, 70902-7, BMP, 3040-3, LIVR, 95596-9, 77291-7 #### [facility] ([id number]) [address] [place] [address] 61569 RBC COUNT 4.55 X10E12/L Normal 4.10-5.70 [facility] Comment on above: Performed By: #### C BCA, PINR, 26026-2, 06097-6, BMP, 3040-3, LIVR, 02096-2, 26842-1 #### [facility] ([id number]) [address] [place] [address] 70168 WBC (Bld) [#/Vol] 8.7 10*3/uL Normal 4.0-11.0 [facility] Comment on above: Performed By: #### C BCA, PINR, 34036-8, 53388-3, BMP, 3040-3, LIVR, 43254-5, 24402-9 #### [facility] ([id number]) [address] [place] [address] 89487 CBC AND AUTO DIFFon 08-11-20 ABSOLUTE BASOPHIL 0.0 X10E9/L Normal 0.0-0.2 [facility] Comment on above: Performed By: #### C BCA, PINR, 60579-9, 74374-7, BMP, 3040-3, LIVR, 27926-7, 23179-0 #### [facility] ([id number]) [address] [place] [address] 57381 ABSOLUTE NEUTROPHIL 7.5 X10E9/L High 1.5-6.6 [facility] Comment on above: Performed By: #### C BCA, PINR, 04290-9, 88633-6, BMP, 3040-3, LIVR, 00450-9, 25214-8 #### [facility] ([id number]) [address] [place] [address] [place] [address] Basophils/100 WBC (Bld) 0.3 % Normal [facility] Comment on above: Performed By: #### C BCA, PINR, 87137-0, 58594-1, BMP, 3040-3, LIVR, 12901-0, 06963-1 #### [facility] ([id number]) [address] [place] [address] 99053 Eosinophils (Bld) [#/Vol] 0.2 10*3/uL Normal 0.0-0.4 [facility] Comment on above: Performed By: #### C BCA, PINR, 60257-2, 74984-3, BMP, 3040-3, LIVR, 62247-5, 28980-1 #### [facility] ([id number]) [address] [place] [address] 48352 Eosinophils/100 WBC (Bld) 1.5 % Normal [facility] Comment on above: Performed By: #### C BCA, PINR, 69783-6, 23171-4, BMP, 3040-3, LIVR, 20575-9, 30591-7 #### [facility] ([id number]) [address] [place] [address] 42215 Erythrocyte distribution width (RBC) [Ratio] 14.7 % Normal 11.5-15.0 [facility] Comment on above: Performed By: #### C BCA, PINR, 80481-7, 94236-0, BMP, 3040-3, LIVR, 23799-6, 62465-3 #### [facility] ([id number]) [address] [place] [address] 46153 Hematocrit (Bld) [Volume fraction] 41.8 % Normal 39-49 [facility] Comment on above: Performed By: #### C BCA, PINR, 54740-5, 86701-9, BMP, 3040-3, LIVR, 77403-7, 88491-2 #### [facility] ([id number]) [address] [place] [address] 30431 Hemoglobin (Bld) [Mass/Vol] 13.9 g/dL Normal 13.0-17.0 [facility] Comment on above: Performed By: #### C BCA, PINR, 92535-9, 64634-2, BMP, 3040-3, LIVR, 67891-5, 38196-7 #### [facility] ([id number]) [address] [place] [address] 30810 Lymphocytes (Bld) [#/Vol] 1.5 10*3/uL Normal 1.0-3.5 [facility] Comment on above: Performed By: #### C BCA, PINR, 48308-6, 10477-1, BMP, 3040-3, LIVR, 25444-4, 41998-6 #### [facility] ([id number]) [address] [place] [address] 38084 Lymphocytes/100 WBC (Bld) 14.7 % Normal [facility] Comment on above: Performed By: #### C BCA, PINR, 67817-9, 14363-0, BMP, 3040-3, LIVR, 34698-2, 93373-9 #### [facility] ([id number]) [address] [place] [address] 49487 MCH (RBC) [Entitic mass] 29.5 pg Normal 27-34 [facility] Comment on above: Performed By: #### C BCA, PINR, 23665-7, 97387-7, BMP, 3040-3, LIVR, 80725-9, 95776-1 #### [facility] ([id number]) [address] [place] [address] 38671 MCHC (RBC) [Mass/Vol] 33.2 g/dL Normal 32-36 [facility] Comment on above: Performed By: #### C BCA, PINR, 42771-1, 14194-1, BMP, 3040-3, LIVR, 85709-8, 97392-4 #### [facility] ([id number]) [address] [place] [address] 13691 MCV (RBC) [Entitic vol] 89 fL Normal 80-100 [facility] Comment on above: Performed By: #### C BCA, PINR, 72977-6, 46753-1, BMP, 3040-3, LIVR, 38797-5, 79084-8 #### [facility] ([id number]) [address] [place] [address] 63290 Monocytes (Bld) [#/Vol] 0.9 10*3/uL Normal 0-0.9 [facility] Comment on above: Performed By: #### C BCA, PINR, 37881-3, 10260-2, BMP, 3040-3, LIVR, 17496-5, 33162-8 #### [facility] ([id number]) [address] [place] [address] 90001 Monocytes/100 WBC (Bld) 9.2 % Normal [facility] Comment on above: Performed By: #### C BCA, PINR, 95424-0, 10477-5, BMP, 3040-3, LIVR, 44241-4, 66023-6 #### [facility] ([id number]) [address] [place] [address] 28728 Neutrophils/100 WBC (Bld) 74.3 % Normal [facility] Comment on above: Performed By: #### C BCA, PINR, 65485-2, 70752-0, BMP, 3040-3, LIVR, 19532-9, 09535-5 #### [facility] ([id number]) [address] [place] [address] 57606 Platelet mean volume (Bld) [Entitic vol] 7.8 fL Normal 7-12 [facility] Comment on above: Performed By: #### C BCA, PINR, 43955-2, 84295-4, BMP, 3040-3, LIVR, 48794-7, 11548-3 #### [facility] ([id number]) [address] [place] [address] 73480 Platelets (Bld) [#/Vol] 154 10*3/uL Normal 150-450 [facility] Comment on above: Performed By: #### C BCA, PINR, 27883-2, 23754-1, BMP, 3040-3, LIVR, 75737-3, 60102-0 #### [facility] ([id number]) [address] [place] [address] [place] [address] RBC COUNT 4.70 X10E12/L Normal 4.10-5.70 [facility] Comment on above: Performed By: #### C BCA, PINR, 84398-2, 66395-0, BMP, 3040-3, LIVR, 40444-6, 51337-2 #### [facility] ([id number]) [address] [place] [address] 24634 WBC (Bld) [#/Vol] 10.1 10*3/uL Normal 4.0-11.0 [facility] Comment on above: Performed By: #### C BCA, PINR, 32750-1, 72698-0, BMP, 3040-3, LIVR, 28675-1, 06501-2 #### [facility] ([id number]) [address] [place] [address] 66856 Folate [Mass/Vol]on 08-11-20 24 FOLIC ACID 9.5 ng/mL Normal >5.8 [facility] Comment on above: Result Comment: NEW REFERENCE RANGE Performed By: #### C BCA, PINR, 08088-9, 87053-9, BMP, 3040-3, LIVR, 66637-7, 95307-5 #### [facility] ([id number]) [address] [place] [address] 48248 Heavy metals panel (Bld)on 10-11-2023 Arsenic, B <1 Normal <13 [facility] Comment on above: Result Comment: NOTE ADDITIONAL INFORMATION This test was developed and its performance characteristics determined by [facility] in a manner consistent with CLIA requirements. This test has not been cleared or approved by the U.S. Food and Drug Administration. Performed By: #### C BCA, PINR, 83384-1, 30083-5, BMP, 3040-3, LIVR, 93261-3, 48876-5 #### [facility] ([id number]) [address] [place] [address] 04563 Cadmium, B 0.6 ng/mL Normal <5.0 [facility] Comment on above: Result Comment: NOTE ADDITIONAL INFORMATION This test was developed and its performance characteristics determined by [facility] in a manner consistent with CLIA requirements. This test has not been cleared or approved by the U.S. Food and Drug Administration. Performed By: #### C BCA, PINR, 92954-4, 40021-5, BMP, 3040-3, LIVR, 67346-5, 25066-8 #### [facility] ([id number]) [address] [place] [address] 10117 Lead, B 4.5 mcg/dL High <3.5 [facility] Comment on above: Result Comment: NOTE ADDITIONAL INFORMATION Testing performed by Triple Quadrupole Inductively Coupled Plasma-Mass Spectrometry (ICP-MS/MS). This test was developed and its performance characteristics determined by [facility] in a manner consistent with CLIA requirements. This test has not been cleared or approved by the U.S. Food and Drug Administration. Performed By: #### C BCA, PINR, 94555-9, 09820-6, BMP, 3040-3, LIVR, 37550-5, 23559-2 #### [facility] ([id number]) [address] [place] [address] 99611 Mercury, B <1 Normal <10 [facility] Comment on above: Result Comment: NOTE ADDITIONAL INFORMATION This test was developed and its performance characteristics determined by [facility] in a manner consistent with CLIA requirements. This test has not been cleared or approved by the U.S. Food and Drug Administration. Performed By: #### C BCA, PINR, 02515-2, 15493-7, BMP, 3040-3, LIVR, 40271-0, 44920-9 #### [facility] ([id number]) [address] [place] [address] 79375 Venous/Capillary Venous Normal [facility] Comment on above: Performed By: #### C BCA, PINR, 38959-9, 46152-5, BMP, 3040-3, LIVR, 94804-1, 90648-5 #### [facility] ([id number]) [address] [place] [address] 42361 Lipid 1996 panelon 4 Cholesterol [Mass/Vol] 112 mg/dL Low 150-200 [facility] Comment on above: Performed By: #### C BCA, PINR, 64682-9, 39257-4, BMP, 3040-3, LIVR, 55441-4, 74231-2 #### [facility] ([id number]) [address] [place] [address] 64121 Cholesterol in HDL [Mass/Vol] 46 mg/dL Normal >39 [facility] Comment on above: Result Comment: HDL <40 mg/dL - High Risk HDL > or = 40mg/dL- Desirable HDL >60 mg/dL - Negative Risk Performed By: #### C BCA, PINR, 40953-7, 03289-3, BMP, 3040-3, LIVR, 58691-4, 33104-5 #### [facility] ([id number]) [address] [place] [address] 53382 Cholesterol in LDL [Mass/Vol] 51 mg/dL Normal <130 [facility] Comment on above: Result Comment: LDL <100 mg/dL - Desirable LDL >160 mg/dL - High Risk Performed By: #### C BCA, PINR, 92313-0, 29866-4, BMP, 3040-3, LIVR, 07706-6, 61887-1 #### [facility] ([id number]) [address] [place] [address] 90188 Cholesterol in VLDL [Mass/Vol] 15 mg/dL Normal 0-30 [facility] Comment on above: Performed By: #### C BCA, PINR, 78929-6, 25909-6, BMP, 3040-3, LIVR, 07631-0, 64820-2 #### [facility] ([id number]) [address] [place] [address] 53732 CHOLESTEROL:HDL 2.4 Normal 1.0-5.0 [facility] Comment on above: Performed By: #### C BCA, PINR, 43311-5, 11836-0, BMP, 3040-3, LIVR, 16390-1, 74138-5 #### [facility] ([id number]) [address] [place] [address] 76780 Triglyceride [Mass/Vol] 74 mg/dL Normal 27-150 [facility] Comment on above: Performed By: #### C BCA, PINR, 95439-7, 15487-3, BMP, 3040-3, LIVR, 68794-6, 95541-6 #### [facility] ([id number]) [address] [place] [address] 77399 MR BRAIN WO CONTon 4 MR BRAIN WO CONT MR BRAIN WO CONT HISTORY: A 78-year-old male with the history of the dizziness. Stroke. Follow-up examination. TECHNIQUE: Multiplanar and multisequence MRI examination of brain is performed without intravenous contrast administration. COMPARISON: Comparison is made with prior MRI examination of the brain of 09/17/[address] scan of brain of 08/10/2024. FINDINGS: The ventricular system is normal in size and configuration. There is normal differentiation of sprague and white matters. There are numerous foci of signal abnormality in the deep white matter supratentorially consistent with small vessels ischemic change. Diffusion-weighted study demonstrates no evidence of restricted diffusion to suggest acute or subacute age of infarction. There is no evidence of intracranial mass, hemorrhage or acute pathology. The cerebellum and brainstem are unremarkable. No mass effect, midline shift of the structures or extra-axial fluid collections are noted. The cavernous carotid and and basilar arteries are patent. Visualized paranasal sinuses and mastoid air cells are clear. IMPRESSION: * No evidence of restricted diffusion to suggest acute or subacute age of infarction. * Small vessels ischemic change in the deep white matter supratentorially. * No evidence of intracranial mass, hemorrhage or acute pathology. Finalized by Saul Hurst MD on 08/11/2024 10:04 AM Normal [facility] SERUM PROTEIN ELECTROPHORESI Son 08-11-2024 Albumin [Mass/Vol] 3.7 g/dL Normal 3.4-5.3 [facility] Comment on above: Performed By: #### C BCA, PINR, 90382-5, 09222-3, BMP, 3040-3, LIVR, 12550-1, 22992-2 #### [facility] ([id number]) [address] [place] [address] 05565 ALPHA 1 GLOBULIN 0.3 g/dL Normal 0.1-0.4 [facility] Comment on above: Performed By: #### C BCA, PINR, 50671-6, 46195-4, BMP, 3040-3, LIVR, 05708-7, 71574-4 #### [facility] ([id number]) [address] [place] [address] 49725 ALPHA 2 GLOBULIN 0.8 g/dL Normal 0.4-1.1 [facility] Comment on above: Performed By: #### C BCA, PINR, 30033-6, 80873-5, BMP, 3040-3, LIVR, 30577-4, 98497-4 #### [facility] ([id number]) [address] [place] [address] 91999 BETA GLOBULIN 0.9 g/dL Normal 0.5-1.2 [facility] Comment on above: Performed By: #### C BCA, PINR, 62906-5, 99267-3, BMP, 3040-3, LIVR, 87455-8, 44690-0 #### [facility] ([id number]) [address] [place] [address] 59890 GAMMA GLOBULIN 0.8 g/dL Normal 0.5-1.6 [facility] Comment on above: Performed By: #### C BCA, PINR, 29653-0, 06631-3, BMP, 3040-3, LIVR, 97146-5, 36904-0 #### [facility] ([id number]) [address] [place] [address] 08273 PROT. ELECTROPHORESIS INTERP Unremarkable protein distribution, no monoclonal bands. Normal [facility] Comment on above: Performed By: #### C BCA, PINR, 68438-7, 20551-1, BMP, 3040-3, LIVR, 56025-6, 92911-5 #### [facility] ([id number]) [address] [place] [address] 92390 Protein [Mass/Vol] 6.5 g/dL Normal 6.0-8.0 [facility] Comment on above: Performed By: #### C BCA, PINR, 19273-4, 35800-1, BMP, 3040-3, LIVR, 54944-4, 96985-8 #### [facility] ([id number]) [address] [place] [address] 06161 Troponin I.cardiac High sens itivity method [Mass/Vol]on 08-11-2024 1 HOUR TROP I, HIGH SENSITIVITY 5 ng/L Normal <21 [facility] Comment on above: Performed By: #### C BCA, PINR, 91507-2, 32314-3, BMP, 3040-3, LIVR, 20312-4, 01077-8 #### [facility] ([id number]) [address] [place] [address] 68365 TROPONIN I, HIGH SENSITIVITY 5 ng/L Normal <21 [facility] Comment on above: Performed By: #### C BCA, PINR, 93084-5, 49809-3, BMP, 3040-3, LIVR, 12671-8, 79390-8 #### [facility] ([id number]) [address] [place] [address] 14120 VITAMIN B12on 08-11-2024 Cobalamin (Vitamin B12) [Mass/Vol] 202 pg/mL Normal 180-914 [facility] Comment on above: Performed By: #### C BCA, PINR, 40209-3, 64262-1, BMP, 3040-3, LIVR, 12158-4, 54368-1 #### [facility] ([id number]) [address] [place] [address] [id number] BASIC METABOLIC PANLon 08-10 Anion gap [Moles/Vol] 9 mmol/L Normal 5-15 [facility] Comment on above: Performed By: #### C BCA, PINR, 61278-0, 17413-0, BMP, 3040-3, LIVR, 46823-9, 81853-9 #### [facility] ([id number]) [address] [place] [address] [id number] Calcium [Mass/Vol] 8.4 mg/dL Low 8.5-10.5 [facility] Comment on above: Performed By: #### C BCA, PINR, 41713-6, 18993-3, BMP, 3040-3, LIVR, 91100-3, 23097-2 #### [facility] ([id number]) [address] [place] [address] 57325 Chloride [Moles/Vol] 104 mmol/L Normal 98-109 [facility] Comment on above: Performed By: #### C BCA, PINR, 67742-4, 85621-5, BMP, 3040-3, LIVR, 79332-0, 00125-2 #### [facility] ([id number]) [address] [place] [address] 38399 CO2 [Moles/Vol] 24 mmol/L Normal 22-32 [facility] Comment on above: Performed By: #### C BCA, PINR, 80108-9, 46102-5, BMP, 3040-3, LIVR, 38851-5, 88912-9 #### [facility] ([id number]) [address] [place] [address] 64289 Creatinine [Mass/Vol] 1.40 mg/dL High 0.70-1.20 [facility] Comment on above: Result Comment: METH OD TRACEABLE TO IDMS STANDARD Performed By: #### C BCA, PINR, 18824-0, 61027-5, BMP, 3040-3, LIVR, 68837-1, 77521-9 #### [facility] ([id number]) [address] [place] [address] 17196 GFR/1.73 sq M.predicted among non-blacks MDRD (S/P/Bld) [Vol rate/Area] 52 mL/min/{1.73_m2} Low >59 [facility] Comment on above: Result Comment: Reported eGFR is based on the CKD-EPI 2020 equation that does not use a race coefficient. Performed By: #### C BCA, PINR, 40252-8, 71776-5, BMP, 3040-3, LIVR, 65973-3, 26033-6 #### [facility] ([id number]) [address] [place] [address] 24197 Glucose [Mass/Vol] 103 mg/dL High 65-99 [facility] Comment on above: Performed By: #### C BCA, PINR, 65192-5, 57308-3, BMP, 3040-3, LIVR, 25610-5, 88668-2 #### [facility] ([id number]) [address] [place] [address] 20363 Potassium [Moles/Vol] 4.3 mmol/L Normal 3.5-5.0 [facility] Comment on above: Performed By: #### C BCA, PINR, 12929-3, 00402-5, BMP, 3040-3, LIVR, 26293-3, 86896-3 #### [facility] ([id number]) [address] [place] [address] 87284 Sodium [Moles/Vol] 137 mmol/L Normal 134-146 [facility] Comment on above: Performed By: #### C BCA, PINR, 39106-6, 10662-7, BMP, 3040-3, LIVR, 55485-3, 11400-0 #### [facility] ([id number]) [address] [place] [address] 50161 Urea nitrogen [Mass/Vol] 19 mg/dL Normal 5-27 [facility] Comment on above: Performed By: #### C BCA, PINR, 03488-4, 57842-0, BMP, 3040-3, LIVR, 82414-9, 49468-1 #### [facility] ([id number]) [address] [place] [address] 02604 CBC AND AUTO DIFFon 11-28-20 24 ABSOLUTE BASOPHIL 0.1 X10E9/L Normal 0.0-0.2 [facility] Comment on above: Performed By: #### C BCA, PINR, 96166-2, 64552-2, BMP, 3040-3, LIVR, 07922-4, 57699-7 #### [facility] ([id number]) [address] [place] [address] [place] [address] ABSOLUTE NEUTROPHIL 8.2 X10E9/L High 1.5-6.6 [facility] Comment on above: Performed By: #### C BCA, PINR, 91616-5, 81679-1, BMP, 3040-3, LIVR, 69516-7, 20324-3 #### [facility] ([id number]) [address] [place] [address] 42817 Basophils/100 WBC (Bld) 0.5 % Normal [facility] Comment on above: Performed By: #### C BCA, PINR, 86048-2, 63379-3, BMP, 3040-3, LIVR, 18406-9, 21319-3 #### [facility] ([id number]) [address] [place] [address] 72397 Eosinophils (Bld) [#/Vol] 0.1 10*3/uL Normal 0.0-0.4 [facility] Comment on above: Performed By: #### C BCA, PINR, 82079-1, 09816-0, BMP, 3040-3, LIVR, 18415-7, 12261-2 #### [facility] ([id number]) [address] [place] [address] 04036 Eosinophils/100 WBC (Bld) 1.3 % Normal [facility] Comment on above: Performed By: #### C BCA, PINR, 20990-1, 89639-9, BMP, 3040-3, LIVR, 06683-3, 93194-8 #### [facility] ([id number]) [address] [place] [address] 32417 Erythrocyte distribution width (RBC) [Ratio] 14.9 % Normal 11.5-15.0 [facility] Comment on above: Performed By: #### C BCA, PINR, 10026-9, 63950-1, BMP, 3040-3, LIVR, 34033-5, 46496-4 #### [facility] ([id number]) [address] [place] [address] 92979 Hematocrit (Bld) [Volume fraction] 41.2 % Normal 39-49 [facility] Comment on above: Performed By: #### C BCA, PINR, 20156-0, 11277-4, BMP, 3040-3, LIVR, 78119-3, 09857-2 #### [facility] ([id number]) [address] [place] [address] 84734 Hemoglobin (Bld) [Mass/Vol] 13.8 g/dL Normal 13.0-17.0 [facility] Comment on above: Performed By: #### C BCA, PINR, 07096-7, 57153-1, BMP, 3040-3, LIVR, 72117-6, 73458-3 #### [facility] ([id number]) [address] [place] [address] 68225 Lymphocytes (Bld) [#/Vol] 1.5 10*3/uL Normal 1.0-3.5 [facility] Comment on above: Performed By: #### C BCA, PINR, 93326-5, 42711-5, BMP, 3040-3, LIVR, 63582-2, 40951-3 #### [facility] ([id number]) [address] [place] [address] 67478 Lymphocytes/100 WBC (Bld) 14.0 % Normal [facility] Comment on above: Performed By: #### C BCA, PINR, 07333-5, 12558-7, BMP, 3040-3, LIVR, 67283-7, 04729-8 #### [facility] ([id number]) [address] [place] [address] 89685 MCH (RBC) [Entitic mass] 29.8 pg Normal 27-34 [facility] Comment on above: Performed By: #### C BCA, PINR, 84631-9, 51213-1, BMP, 3040-3, LIVR, 95134-9, 89885-2 #### [facility] ([id number]) [address] [place] [address] 38064 MCHC (RBC) [Mass/Vol] 33.6 g/dL Normal 32-36 [facility] Comment on above: Performed By: #### C BCA, PINR, 33534-2, 61453-3, BMP, 3040-3, LIVR, 09768-4, 23274-9 #### [facility] ([id number]) [address] [place] [address] 57742 MCV (RBC) [Entitic vol] 89 fL Normal 80-100 [facility] Comment on above: Performed By: #### C BCA, PINR, 15291-6, 16874-2, BMP, 3040-3, LIVR, 78109-1, 83542-4 #### [facility] ([id number]) [address] [place] [address] 89737 Monocytes (Bld) [#/Vol] 0.9 10*3/uL Normal 0-0.9 [facility] Comment on above: Performed By: #### C BCA, PINR, 32163-8, 80403-0, BMP, 3040-3, LIVR, 57442-3, 98153-3 #### [facility] ([id number]) [address] [place] [address] 68909 Monocytes/100 WBC (Bld) 8.0 % Normal [facility] Comment on above: Performed By: #### C BCA, PINR, 32848-8, 70587-7, BMP, 3040-3, LIVR, 51516-6, 26513-5 #### [facility] ([id number]) [address] [place] [address] 12409 Neutrophils/100 WBC (Bld) 76.2 % Normal [facility] Comment on above: Performed By: #### C BCA, PINR, 04524-0, 71639-5, BMP, 3040-3, LIVR, 36365-4, 51169-3 #### [facility] ([id number]) [address] [place] [address] 40192 Platelet mean volume (Bld) [Entitic vol] 8.1 fL Normal 7-12 [facility] Comment on above: Performed By: #### C BCA, PINR, 55958-4, 36238-0, BMP, 3040-3, LIVR, 16316-1, 03002-0 #### [facility] ([id number]) [address] [place] [address] 91424 Platelets (Bld) [#/Vol] 150 10*3/uL Normal 150-450 [facility] Comment on above: Performed By: #### C BCA, PINR, 98009-2, 26187-3, BMP, 3040-3, LIVR, 70654-9, 62402-5 #### [facility] ([id number]) [address] [place] [address] 34354 RBC COUNT 4.64 X10E12/L Normal 4.10-5.70 [facility] Comment on above: Performed By: #### C BCA, PINR, 75164-2, 60110-7, BMP, 3040-3, LIVR, 80934-1, 30126-8 #### [facility] ([id number]) [address] [place] [address] 45148 WBC (Bld) [#/Vol] 10.8 10*3/uL Normal 4.0-11.0 [facility] Comment on above: Performed By: #### C BCA, PINR, 27564-0, 80649-5, BMP, 3040-3, LIVR, 28569-7, 98754-7 #### [facility] ([id number]) [address] [place] [address] [address] CT BRAIN WO CONT STROKE ALER Ton 08-10-2024 CT BRAIN WO CONT STROKE ALERT CT BRAIN WO CONT STROKE ALERT STUDY: CT HEAD WITHOUT CONTRAST CLINICAL HISTORY: Stroke, follow up; assessment of stroke/hemorrhage: COMPARISON: May 18, 2024 Procedure: Multi-detector CT performed through the brain without IV contrast. The lack of IV contrast limits evaluation for acute infarct, mass, infectious process,or demyelinating disease.Automated exposure control was utilized. Findings: There is no intracranial hemorrhage, extra-axial fluid collection, mass effect, or hydrocephalus. Sprague-white matter differentiation is appropriate. Infarcts and masses may be occult on CT, but grossly no acute infarct identified There is no midline shift. IMPRESSION: * No acute intracranial findings. Consider brain MRI if you suspect occult process. All CT scans at this facility use dose modulation, iterative reconstruction, and/or weight based dosing when appropriate to reduce radiation dose to as low as reasonably achievable. Finalized by Francis Porras MD on 08/10/2024 11:23 AM Normal [facility] CT CTA CAROTIDon 08-10-[address] CTA CAROTID Examination: CTA carotids Clinical History: Neuro deficit, acute, stroke suspected Comparison: None CT CTA CAROTID Procedure: Multidetector CT angiogram performed through the cervical portion of the carotid arteries without complication, including source images and maximum intensity projection 3-D images displayed and reviewed on an independent PACS workstation by the radiologist. Automated exposure control was utilized. The [place] Symptomatic Carotid Endarterectomy Trial (NASCET)calculation of ICA stenosis percentage using the following formula with a threshold of 60 to 70%: % ICA stenosis = (1 - [narrowest ICA diameter/diameter normal distal cervical ICA]) x 100 Findings: 3-D images confirm the source images. Within the limitations of CT angiography, the vessels are normal in course and caliber with no aneurysm, dissection, or occlusion. No hemodynamically significant stenosis of the internal carotid artery relative to the distal internal carotid artery diameter. Flow is demonstrated within bilateral vertebral arteries, and bilateral internal, external, and common carotid arteries. IMPRESSION: * No hemodynamically significant stenosis of the internal carotid artery identified. All CT scans at this facility use dose modulation, iterative reconstruction, and/or weight based dosing when appropriate to reduce radiation dose to as low as reasonably achievable. For Reference: Carotid Doppler: For Carotid doppler reports, click Chart review, then cardiovascular tab at top Normal: 0% - PSV <150 cm/sec (No visible atherosclerosis) Plaque with no significant stenosis: (<50% ICA stenosis: PSV < 150 cm/sec ( <50% stenosis carotid atherosclerosis by B-mode image 50-69% ICA Stenosis: PSV > 150 cm /sec and EDV < 100 cm/sec; ICA/CCA Ratio < 4.0 > 70% ICA Stenosis: PSV > 230 cm/sec and EDV > 100 cm/sec; ICA/CCA Ratio > 4.0 ICA Occlusion: Absent PW Doppler and color flow signal; High resistive CCA flow velocity signal >70 % Post Cartoid Endarterectomy Stenosis: PSV >275 cm/sec and EDV >110 cm/sec >70 Post Carotid Stent Stenosis: PSV >325 cm/sec and EDV >120 cm/sec *PSV- Peak Systolic Velocity *EDV- End Diastolic Velocity Finalized by Francis Porras MD on 08/10/2024 11:38 AM Normal [facility] CT CTA HEADon 08-10-[address] CTA HEAD STUDY: CT CTA HEAD INDICATION: Neuro deficit, acute, stroke suspected. Technique: * CT angiogram of the head was performed following intravenous administration nonionic intravenous contrast. * 3-D maximum intensity projection images generated and reviewed under concurrent physician supervision. Automated exposure control was utilized. * All CT scans at this facility use dose modulation, iterative reconstruction, and/or weight based dosing when appropriate to reduce radiation dose to as low as reasonably achievable. FINDINGS: Trace atherosclerosis in the carotid siphons. Anterior cerebral, anterior communicating arteries are patent. Middle cerebral arteries appear patent. Posterior cerebral arteries are patent. Left greater than right posterior communicating arteries are patent. Questionably fenestrated basilar artery proximally, a congenital variant. Partially visualized vertebral and basilar arteries are patent. Venous contamination partially limits evaluation of the small arteries. Visualized venous structures are broadly patent accounting for dominant right and is made to the left transverse and sigmoid sinuses. IMPRESSION: * Unremarkable CTA of the alturas of [place]. No high grade arterial stenosis, large vessel occlusion or aneurysm, within confines of venous contamination. * MRI is the most sensitive to assess for ischemic changes if clinically warranted. Finalized by Jesse Kraus on 08/10/2024 11:42 AM Normal [facility] Glucose Glucometer (BldC) [M ass/Vol]on 08-10-2024 Glucose [Mass/Vol] 87 mg/dL Normal 65-99 [facility] HGB A1C (GLYCO-HGB)on 2023 Glucose [Mass/Vol] 105 mg/dL Normal [facility] Comment on above: Performed By: #### C BCA, PINR, 29547-9, 00927-1, BMP, 3040-3, LIVR, 32219-3, 90017-5 #### [facility] ([id number]) [address] [place] [address] 00718 HbA1c (Bld) [Mass fraction] 5.3 % Normal 4.4-5.6 [facility] Comment on above: Result Comment: NOTE ADA Guidelines Result HgbA1c Normal : less than 5.7 % Prediabetes : 5.7 % to 6.4 % Diabetes : > 6.4 % Use with caution in patients with abnormal hemoglobin variants as the half-life of red blood cells and in vivo glycation rates are affected. Performed By: #### C BCA, PINR, 34316-3, 16826-2, BMP, 3040-3, LIVR, 85804-9, 07957-7 #### [facility] ([id number]) [address] [place] [address] 34295 PROTIME AND INRon 08-10-2024 INR Coag (PPP) [Relative time] 1.1 {INR} Normal 0.8-1.1 [facility] Comment on above: Performed By: #### C BCA, PINR, 12990-1, 63871-1, BMP, 3040-3, LIVR, 73284-5, 58757-9 #### [facility] ([id number]) [address] [place] [address] PT Coag (PPP) [Time] 12.6 s Normal 9.8-13.2 [facility] Comment on above: Result Comment: NEW REFERENCE RANGE Performed By: #### C BCA, PINR, 60929-1, 52167-8, BMP, 3040-3, LIVR, 88863-7, 28703-9 #### [facility] ([id number]) [address] [place] [address] 13514 Troponin I.cardiac High sens itivity method [Mass/Vol]on 08-10-2024 1 HOUR TROP I, HIGH SENSITIVITY 4 ng/L Normal <21 [facility] Comment on above: Performed By: #### C BCA, PINR, 86370-3, 95029-4, BMP, 3040-3, LIVR, 36224-5, 80250-9 #### [facility] ([id number]) [address] [place] [address] 39786 TROPONIN I, HIGH SENSITIVITY 4 ng/L Normal <21 [facility] Comment on above: Performed By: #### C BCA, PINR, 50934-6, 24164-5, BMP, 3040-3, LIVR, 12744-1, 70524-7 #### [facility] ([id number]) [address] [place] [address] 81140 XR CHEST 1 VIEW STROKEon XR CHEST 1 VIEW STROKE XR CHEST 1 VIEW STROKE XR CHEST 1 VIEW STROKE HISTORY: Stroke, chest pain, dizziness COMPARISON: 05/18/2024 FINDINGS: AP upright film obtained. Cervical fusion hardware. The cardiomediastinal silhouette is within normal limits. No pleural effusion or pneumothorax. No consolidation. IMPRESSION: * No radiographic evidence of acute cardiopulmonary process. Approved by Resident: Ronaldo Kuo DO on 08/10/2024 12:28 PM IFrancis MD have personally reviewed the image(s) and agree with and/or edited the report Finalized by Francis Porras MD on 08/10/2024 12:31 PM Normal [facility] aPTT Coag (PPP) [Time]on aPTT Coag (Bld) [Time] 32 s Normal 26-37 [facility] Comment on above: Result Comment: NEW REFERENCE RANGE Performed By: #### C BCA, PINR, 99516-7, 72989-3, BMP, 3040-3, LIVR, 84542-0, 60829-3 #### [facility] ([id number]) [address] [place] [address] 26054 BLOOD CULTURE 1on 06-26-2024 BLOOD CULTURE 1 Blood Culture 1 NG5D NO GROWTH AT 5 DAYS.^NO GROWTH AT 5 DAYS. [facility] BLOOD CULTURE 2on 06-26-2024 BLOOD CULTURE 2 Blood Culture 2 NG5D NO GROWTH AT 5 DAYS.^NO GROWTH AT 5 DAYS. [facility] No Panel Informationon 06-26 [facility] CBC AND AUTO DIFFon 05-18-20 24 Eosinophils (Bld) [#/Vol] 0.1 10*3/uL Normal 0.0-0.4 [facility] Comment on above: Performed By: #### C BCA, PINR, 82032-0, 68603-9, BMP, 3040-3, LIVR, 70602-4, 63445-9 #### [facility] ([id number]) [address] [place] [address] 09372 Eosinophils/100 WBC (Bld) 1.3 % Normal [facility] Comment on above: Performed By: #### C BCA, PINR, 12487-9, 07923-9, BMP, 3040-3, LIVR, 63685-3, 53320-0 #### [facility] ([id number]) [address] [place] [address] 77426 Erythrocyte distribution width (RBC) [Ratio] 15.4 % High 11.5-15.0 [facility] Comment on above: Performed By: #### C BCA, PINR, 74627-1, 53145-8, BMP, 3040-3, LIVR, 26425-7, 10558-0 #### [facility] ([id number]) [address] [place] [address] 97207 Hematocrit (Bld) [Volume fraction] 42.1 % Normal 39-49 [facility] Comment on above: Performed By: #### C BCA, PINR, 15284-1, 84355-5, BMP, 3040-3, LIVR, 32863-1, 20260-1 #### [facility] ([id number]) [address] [place] [address] 28555 Hemoglobin (Bld) [Mass/Vol] 13.9 g/dL Normal 13.0-17.0 [facility] Comment on above: Performed By: #### C BCA, PINR, 81800-3, 93585-6, BMP, 3040-3, LIVR, 32198-1, 84477-7 #### [facility] ([id number]) [address] [place] [address] 82735 Lymphocytes (Bld) [#/Vol] 1.0 10*3/uL Normal 1.0-3.5 [facility] Comment on above: Performed By: #### C BCA, PINR, 58187-0, 59033-4, BMP, 3040-3, LIVR, 31984-8, 66181-3 #### [facility] ([id number]) [address] [place] [address] 87327 Lymphocytes/100 WBC (Bld) 13.2 % Normal [facility] Comment on above: Performed By: #### C BCA, PINR, 86949-1, 66808-2, BMP, 3040-3, LIVR, 52937-6, 26354-3 #### [facility] ([id number]) [address] [place] [address] 33396 MCH (RBC) [Entitic mass] 29.2 pg Normal 27-34 [facility] Comment on above: Performed By: #### C BCA, PINR, 38939-3, 04589-7, BMP, 3040-3, LIVR, 14410-3, 06968-9 #### [facility] ([id number]) [address] [place] [address] 32903 MCHC (RBC) [Mass/Vol] 33.1 g/dL Normal 32-36 [facility] Comment on above: Performed By: #### C BCA, PINR, 10662-8, 68693-7, BMP, 3040-3, LIVR, 23159-1, 34094-4 #### [facility] ([id number]) [address] [place] [address] 50014 MCV (RBC) [Entitic vol] 88 fL Normal 80-100 [facility] Comment on above: Performed By: #### C BCA, PINR, 69071-6, 78613-4, BMP, 3040-3, LIVR, 96175-2, 38519-7 #### [facility] ([id number]) [address] [place] [address] 76298 Monocytes (Bld) [#/Vol] 0.5 10*3/uL Normal 0-0.9 [facility] Comment on above: Performed By: #### C BCA, PINR, 31555-0, 73382-0, BMP, 3040-3, LIVR, 62603-4, 56348-5 #### [facility] ([id number]) [address] [place] [address] 56285 Monocytes/100 WBC (Bld) 6.6 % Normal [facility] Comment on above: Performed By: #### C BCA, PINR, 41359-9, 01447-2, BMP, 3040-3, LIVR, 38347-9, 63103-1 #### [facility] ([id number]) [address] [place] [address] 22264 Neutrophils (Bld) [#/Vol] 6.1 10*3/uL Normal 1.5-6.6 [facility] Comment on above: Performed By: #### C BCA, PINR, 49729-4, 18564-5, BMP, 3040-3, LIVR, 71960-1, 02274-5 #### [facility] ([id number]) [address] [place] [address] 54989 Platelet mean volume (Bld) [Entitic vol] 7.4 fL Normal 7-12 [facility] Comment on above: Performed By: #### C BCA, PINR, 23320-2, 05433-1, BMP, 3040-3, LIVR, 49863-3, 32484-8 #### [facility] ([id number]) [address] [place] [address] 62663 Platelets (Bld) [#/Vol] 134 10*3/uL Low 150-450 [facility] Comment on above: Performed By: #### C BCA, PINR, 62060-8, 05026-1, BMP, 3040-3, LIVR, 30666-6, 14802-6 #### [facility] ([id number]) [address] [place] [address] 09136 RBC COUNT 4.76 X10E12/L Normal 4.10-5.70 [facility] Comment on above: Performed By: #### C BCA, PINR, 99795-1, 12415-8, BMP, 3040-3, LIVR, 78563-1, 43419-8 #### [facility] ([id number]) [address] [place] [address] 58477 SEG NEUTROPHIL 78.9 % Normal [facility] Comment on above: Performed By: #### C BCA, PINR, 71631-0, 84746-4, BMP, 3040-3, LIVR, 99018-1, 12845-5 #### [facility] ([id number]) [address] [place] [address] 41448 WBC (Bld) [#/Vol] 7.7 10*3/uL Normal 4.0-11.0 [facility] Comment on above: Performed By: #### C BCA, PINR, 79290-8, 89382-6, BMP, 3040-3, LIVR, 41628-5, 16417-3 #### [facility] ([id number]) [address] [place] [address] 85733 COMPREHENSIVE METABOLIC PANE Reji 05-18-2024 Albumin [Mass/Vol] 3.9 g/dL Normal 3.2-5.3 [facility] Comment on above: Performed By: #### C BCA, PINR, 46616-7, 42666-0, BMP, 3040-3, LIVR, 60293-3, 71831-7 #### [facility] ([id number]) [address] [place] [address] 39213 ALP [Catalytic activity/Vol] 92 U/L Normal 39-130 [facility] Comment on above: Performed By: #### C BCA, PINR, 49576-3, 15153-4, BMP, 3040-3, LIVR, 19677-4, 11712-5 #### [facility] ([id number]) [address] [place] [address] 24692 ALT [Catalytic activity/Vol] 48 U/L High 0-40 [facility] Comment on above: Performed By: #### C BCA, PINR, 12588-7, 31963-4, BMP, 3040-3, LIVR, 47903-5, 25249-5 #### [facility] ([id number]) [address] [place] [address] 08728 Anion gap [Moles/Vol] 8 mmol/L Normal 5-15 [facility] Comment on above: Performed By: #### C BCA, PINR, 97935-2, 63394-0, BMP, 3040-3, LIVR, 09167-9, 32669-5 #### [facility] ([id number]) [address] [place] [address] 37743 AST [Catalytic activity/Vol] 29 U/L Normal 0-41 [facility] Comment on above: Performed By: #### C BCA, PINR, 51736-2, 73854-3, BMP, 3040-3, LIVR, 60500-1, 66836-2 #### [facility] ([id number]) [address] [place] [address] 93489 Bilirubin [Mass/Vol] 1.1 mg/dL Normal 0.3-1.2 [facility] Comment on above: Performed By: #### C BCA, PINR, 99251-2, 32047-0, BMP, 3040-3, LIVR, 94632-1, 99744-1 #### [facility] ([id number]) [address] [place] [address] 47017 Calcium [Mass/Vol] 8.4 mg/dL Low 8.5-10.5 [facility] Comment on above: Performed By: #### C BCA, PINR, 75109-3, 83746-2, BMP, 3040-3, LIVR, 33756-9, 06919-0 #### [facility] ([id number]) [address] [place] [address] 90873 Chloride [Moles/Vol] 103 mmol/L Normal 98-109 [facility] Comment on above: Performed By: #### C BCA, PINR, 93058-7, 30631-0, BMP, 3040-3, LIVR, 36852-9, 70624-5 #### [facility] ([id number]) [address] [place] [address] 81211 CO2 [Moles/Vol] 25 mmol/L Normal 22-32 [facility] Comment on above: Performed By: #### C BCA, PINR, 26832-0, 23900-0, BMP, 3040-3, LIVR, 95309-6, 80826-5 #### [facility] ([id number]) [address] [place] [address] 42061 Creatinine [Mass/Vol] 1.51 mg/dL High 0.70-1.20 [facility] Comment on above: Result Comment: METH OD TRACEABLE TO IDMS STANDARD Performed By: #### C BCA, PINR, 81641-7, 14590-5, BMP, 3040-3, LIVR, 88652-9, 86027-4 #### [facility] ([id number]) [address] [place] [address] 55891 GFR/1.73 sq M.predicted among non-blacks MDRD (S/P/Bld) [Vol rate/Area] 47 mL/min/{1.73_m2} Low >59 [facility] Comment on above: Result Comment: Reported eGFR is based on the CKD-EPI 2020 equation that does not use a race coefficient. Performed By: #### C BCA, PINR, 87160-0, 87246-2, BMP, 3040-3, LIVR, 33640-6, 55754-3 #### [facility] ([id number]) [address] [place] [address] 88442 Glucose [Mass/Vol] 97 mg/dL Normal 65-99 [facility] Comment on above: Performed By: #### C BCA, PINR, 65819-3, 23164-3, BMP, 3040-3, LIVR, 73258-9, 36768-7 #### [facility] ([id number]) [address] [place] [address] 81647 Potassium [Moles/Vol] 4.6 mmol/L Normal 3.5-5.0 [facility] Comment on above: Performed By: #### C BCA, PINR, 62041-0, 72907-1, BMP, 3040-3, LIVR, 18381-4, 08880-9 #### [facility] ([id number]) [address] [place] [address] 09187 Protein [Mass/Vol] 6.9 g/dL Normal 6.0-8.0 [facility] Comment on above: Performed By: #### C BCA, PINR, 99751-3, 24928-1, BMP, 3040-3, LIVR, 98042-8, 46117-7 #### [facility] ([id number]) [address] [place] [address] 98011 Sodium [Moles/Vol] 136 mmol/L Normal 134-146 [facility] Comment on above: Performed By: #### C BCA, PINR, 58929-3, 70537-9, BMP, 3040-3, LIVR, 89730-2, 07973-9 #### [facility] ([id number]) [address] [place] [address] 24825 Urea nitrogen [Mass/Vol] 29 mg/dL High 5-27 [facility] Comment on above: Performed By: #### C BCA, PINR, 96031-0, 85455-1, BMP, 3040-3, LIVR, 17079-7, 72346-9 #### [facility] ([id number]) [address] [place] [address] BRAIN WO CONTon CT BRAIN WO [...] Larsen MD on 05/18/2024 7:20 AM Normal [facility] CT CERVICAL SPINE WO CONTon 05-18-2024 [...] Horne MD on 05/18/2024 7:30 AM Normal [facility] Troponin I.cardiac High sens itivity method [Mass/Vol]on 05-18-2024 1 HOUR TROP I, HIGH SENSITIVITY 7 ng/L Normal <21 [facility] Comment on above: Performed By: #### C BCA, PINR, 65302-3, 22218-5, BMP, 3040-3, LIVR, 84834-6, 34834-8 #### [facility] ([id number]) [address] [place] [address] 88431 TROPONIN I, HIGH SENSITIVITY 7 ng/L Normal <21 [facility] Comment on above: Performed By: #### C BCA, PINR, 31391-8, 28898-9, BMP, 3040-3, LIVR, 31548-9, 68528-5 #### [facility] ([id number]) [address] [place] [address] 12778 URN MACROSCOPIC NURon 2023 BILIRUBIN VAHE Negative Normal NEG [facility] Comment on above: Performed By: #### C BCA, PINR, 56069-1, 83352-2, BMP, 3040-3, LIVR, 78418-7, 82171-8 #### [facility] ([id number]) [address] [place] [address] 10908 BLOOD/HGB VAHE Trace Abnormal NEG [facility] Comment on above: Performed By: #### C BCA, PINR, 01727-6, 95866-5, BMP, 3040-3, LIVR, 11513-0, 53447-4 #### [facility] ([id number]) [address] [place] [address] 50726 GLUCOSE VAHE Negative Normal NEG [facility] Comment on above: Performed By: #### C BCA, PINR, 90825-6, 93097-7, BMP, 3040-3, LIVR, 63133-3, 02823-6 #### [facility] ([id number]) [address] [place] [address] 11825 KETONES VAHE Negative Normal NEG [facility] Comment on above: Performed By: #### C BCA, PINR, 92311-6, 92579-5, BMP, 3040-3, LIVR, 24778-8, 25833-3 #### [facility] ([id number]) [address] [place] [address] [place] [address] LEUKOCYTE ESTERASE VAHE Negative Normal NEG [facility] Comment on above: Performed By: #### C BCA, PINR, 31930-0, 31234-7, BMP, 3040-3, LIVR, 34774-1, 23057-3 #### [facility] ([id number]) [address] [place] [address] 08999 NITRITE VAHE Negative Normal NEG [facility] Comment on above: Performed By: #### C BCA, PINR, 49715-9, 08070-4, BMP, 3040-3, LIVR, 45131-9, 26444-2 #### [facility] ([id number]) [address] [place] [address] 09848 PH VAHE 7.0 Normal 5.0-8.5 [facility] Comment on above: Performed By: #### C BCA, PINR, 90737-3, 18521-6, BMP, 3040-3, LIVR, 36373-7, 85926-6 #### [facility] ([id number]) [address] [place] [address] 97163 PROTEIN VAHE Negative Normal NEG [facility] Comment on above: Performed By: #### C BCA, PINR, 34141-4, 45910-2, BMP, 3040-3, LIVR, 68834-2, 47931-9 #### [facility] ([id number]) [address] [place] [address] 72832 SPECIFIC GRAVITY VAHE 1.020 Normal 1.003-1.035 [facility] Comment on above: Performed By: #### C BCA, PINR, 63399-2, 16297-8, BMP, 3040-3, LIVR, 53039-4, 41998-6 #### [facility] ([id number]) [address] [place] [address] 96102 UROBILINOGEN VAHE 0.2 eu/dL Normal <1.1 [facility] Comment on above: Performed By: #### C BCA, PINR, 86413-6, 50782-5, BMP, 3040-3, LIVR, 29264-4, 47238-6 #### [facility] ([id number]) [address] [place] [address] 64453 XR CHEST 1 VWon 05-18-2024 XR CHEST [...] Horne MD on 05/18/2024 7:31 AM Normal [facility] XR PELVIS 1 OR 2 VWSon 05-18 XR PELVIS 1 OR 2 VWS XR PELVIS 1 OR 2 VW S History: Blunt trauma from fall Exam/Technique: Single [...] Horne MD on 05/18/2024 7:33 AM Normal [facility] XR CHEST 2 VWSon 05-10-2024 XR [...] Tejada MD on 05/10/2024 1:22 PM Normal [facility] BASIC METABOLIC PANLon 10-25 Anion gap [Moles/Vol] 5 mmol/L Normal 5-15 [facility] Comment on above: Performed By: #### C BCA, PINR, 72385-0, 48048-1, BMP, 3040-3, LIVR, 67088-4, 80391-9 #### [facility] ([id number]) [address] [place] [address], [place] [id number] Calcium [Mass/Vol] 8.3 mg/dL Low 8.5-10.5 [facility] Comment on above: Performed By: #### C BCA, PINR, 42814-9, 37180-9, BMP, 3040-3, LIVR, 52816-9, 35949-0 #### [facility] ([id number]) [address] [place] [address] 94180 Chloride [Moles/Vol] 107 mmol/L Normal 98-109 [facility] Comment on above: Performed By: #### C BCA, PINR, 23098-3, 30907-4, BMP, 3040-3, LIVR, 12733-8, 11017-2 #### [facility] ([id number]) [address] [place] [address] 07395 CO2 [Moles/Vol] 25 mmol/L Normal 22-32 [facility] Comment on above: Performed By: #### C BCA, PINR, 11596-6, 25694-9, BMP, 3040-3, LIVR, 89164-3, 93809-1 #### [facility] ([id number]) [address] [place] [address] 25619 Creatinine [Mass/Vol] 1.42 mg/dL High 0.70-1.20 [facility] Comment on above: Result Comment: METH OD TRACEABLE TO IDMS STANDARD Performed By: #### C BCA, PINR, 42914-3, 33124-7, BMP, 3040-3, LIVR, 91674-9, 40899-3 #### [facility] ([id number]) [address] [place] [address] 38301 GFR/1.73 sq M.predicted among non-blacks MDRD (S/P/Bld) [Vol rate/Area] 51 mL/min/{1.73_m2} Low >59 [facility] Comment on above: Result Comment: Reported eGFR is based on the CKD-EPI 2020 equation that does not use a race coefficient. Performed By: #### C BCA, PINR, 84907-3, 73008-2, BMP, 3040-3, LIVR, 95171-9, 38572-5 #### [facility] ([id number]) [address] [place] [address] 48542 Glucose [Mass/Vol] 90 mg/dL Normal 65-99 [facility] Comment on above: Performed By: #### C BCA, PINR, 93207-6, 31548-2, BMP, 3040-3, LIVR, 76890-4, 28084-5 #### [facility] ([id number]) [address] [place] [address] 53708 Potassium [Moles/Vol] 4.3 mmol/L Normal 3.5-5.0 [facility] Comment on above: Performed By: #### C BCA, PINR, 93309-0, 46212-8, BMP, 3040-3, LIVR, 91656-1, 81682-1 #### [facility] ([id number]) [address] [place] [address] 67250 Sodium [Moles/Vol] 137 mmol/L Normal 134-146 [facility] Comment on above: Performed By: #### C BCA, PINR, 10680-3, 73532-5, BMP, 3040-3, LIVR, 49426-9, 40221-3 #### [facility] ([id number]) [address] [place] [address] 97113 Urea nitrogen [Mass/Vol] 17 mg/dL Normal 5-27 [facility] Comment on above: Performed By: #### C BCA, PINR, 27402-7, 74738-5, BMP, 3040-3, LIVR, 28236-8, 74034-4 #### [facility] ([id number]) [address] [place] [address] 65001 CBC AND AUTO DIFFon 10-25-19 24 ABSOLUTE BASOPHIL 0.1 X10E9/L Normal 0.0-0.2 [facility] Comment on above: Performed By: #### C BCA, PINR, 44382-3, 28543-8, BMP, 3040-3, LIVR, 87941-6, 99473-7 #### [facility] ([id number]) [address] [place] [address] 12149 ABSOLUTE NEUTROPHIL 3.1 X10E9/L Normal 1.5-6.6 [facility] Comment on above: Performed By: #### C BCA, PINR, 03006-4, 68326-6, BMP, 3040-3, LIVR, 34833-0, 31898-2 #### [facility] ([id number]) [address] [place] [address] 02574 Basophils/100 WBC (Bld) 1.0 % Normal [facility] Comment on above: Performed By: #### C BCA, PINR, 06800-7, 40026-2, BMP, 3040-3, LIVR, 91920-8, 24292-9 #### [facility] ([id number]) [address] [place] [address] 52569 Eosinophils (Bld) [#/Vol] 0.1 10*3/uL Normal 0.0-0.4 [facility] Comment on above: Performed By: #### C BCA, PINR, 13227-6, 21850-7, BMP, 3040-3, LIVR, 28178-4, 74080-1 #### [facility] ([id number]) [address] [place] [address] 92927 Eosinophils/100 WBC (Bld) 1.8 % Normal [facility] Comment on above: Performed By: #### C BCA, PINR, 90049-7, 40817-6, BMP, 3040-3, LIVR, 14026-8, 46928-3 #### [facility] ([id number]) [address] [place] [address] 07727 Erythrocyte distribution width (RBC) [Ratio] 14.8 % Normal 11.5-15.0 [facility] Comment on above: Performed By: #### C BCA, PINR, 59889-8, 28338-6, BMP, 3040-3, LIVR, 43035-4, 42785-2 #### [facility] ([id number]) [address] [place] [address] 76633 Hematocrit (Bld) [Volume fraction] 37.8 % Low 39-49 [facility] Comment on above: Performed By: #### C BCA, PINR, 89641-9, 13196-4, BMP, 3040-3, LIVR, 82741-5, 17430-6 #### [facility] ([id number]) [address] [place] [address] 05503 Hemoglobin (Bld) [Mass/Vol] 12.8 g/dL Low 13.0-17.0 [facility] Comment on above: Performed By: #### C BCA, PINR, 88244-6, 82059-4, BMP, 3040-3, LIVR, 73660-9, 54049-3 #### [facility] ([id number]) [address] [place] [address] 87216 Lymphocytes (Bld) [#/Vol] 1.6 10*3/uL Normal 1.0-3.5 [facility] Comment on above: Performed By: #### C BCA, PINR, 52985-3, 77050-9, BMP, 3040-3, LIVR, 05311-3, 15676-2 #### [facility] ([id number]) [address] [place] [address] 88073 Lymphocytes/100 WBC (Bld) 31.2 % Normal [facility] Comment on above: Performed By: #### C BCA, PINR, 06748-6, 63603-3, BMP, 3040-3, LIVR, 00459-6, 84127-9 #### [facility] ([id number]) [address] [place] [address] 91065 MCH (RBC) [Entitic mass] 29.7 pg Normal 27-34 [facility] Comment on above: Performed By: #### C BCA, PINR, 10639-5, 74955-3, BMP, 3040-3, LIVR, 20106-9, 24178-3 #### [facility] ([id number]) [address] [place] [address] 29140 MCHC (RBC) [Mass/Vol] 33.9 g/dL Normal 32-36 [facility] Comment on above: Performed By: #### C BCA, PINR, 67963-7, 78178-5, BMP, 3040-3, LIVR, 17112-6, 73885-9 #### [facility] ([id number]) [address] [place] [address] 70951 MCV (RBC) [Entitic vol] 88 fL Normal 80-100 [facility] Comment on above: Performed By: #### C BCA, PINR, 67272-7, 05826-1, BMP, 3040-3, LIVR, 40515-1, 58361-3 #### [facility] ([id number]) [address] [place] [address] 20181 Monocytes (Bld) [#/Vol] 0.4 10*3/uL Normal 0-0.9 [facility] Comment on above: Performed By: #### C BCA, PINR, 24471-0, 97553-2, BMP, 3040-3, LIVR, 29371-3, 73314-1 #### [facility] ([id number]) [address] [place] [address] 46734 Monocytes/100 WBC (Bld) 6.8 % Normal [facility] Comment on above: Performed By: #### C BCA, PINR, 18574-6, 21672-5, BMP, 3040-3, LIVR, 76875-1, 58568-3 #### [facility] ([id number]) [address] [place] [address] 65609 Neutrophils/100 WBC (Bld) 59.2 % Normal [facility] Comment on above: Performed By: #### C BCA, PINR, 80350-5, 35111-0, BMP, 3040-3, LIVR, 97280-7, 48002-5 #### [facility] ([id number]) [address] [place] [address] 64421 Platelet mean volume (Bld) [Entitic vol] 7.6 fL Normal 7-12 [facility] Comment on above: Performed By: #### C BCA, PINR, 68044-5, 42624-8, BMP, 3040-3, LIVR, 23191-0, 76579-2 #### [facility] ([id number]) [address] [place] [address] 46501 Platelets (Bld) [#/Vol] 146 10*3/uL Low 150-450 [facility] Comment on above: Performed By: #### C BCA, PINR, 26706-6, 01253-6, BMP, 3040-3, LIVR, 59534-9, 04719-3 #### [facility] ([id number]) [address] [place] [address] 08054 RBC COUNT 4.31 X10E12/L Normal 4.10-5.70 [facility] Comment on above: Performed By: #### C BCA, PINR, 13614-4, 41481-8, BMP, 3040-3, LIVR, 53296-6, 50912-9 #### [facility] ([id number]) [address] [place] [address] 00883 WBC (Bld) [#/Vol] 5.2 10*3/uL Normal 4.0-11.0 [facility] Comment on above: Performed By: #### C BCA, PINR, 35578-3, 42960-4, BMP, 3040-3, LIVR, 59764-9, 81355-5 #### [facility] ([id number]) [address] [place] [address], [place] [address] CT ABDOMEN AND PELVIS W CONT on [...] Tejada MD on 10/25/2023 2:27 PM Normal [facility] CT BRAIN WO CONTon CT BRAIN [...] Gonzáles MD on 10/25/2023 3:50 PM Normal [facility] LIPASEon 10-25-2023 Lipase [Catalytic activity/Vol] 24 U/L Normal 17-40 [facility] Comment on above: Performed By: #### C BCA, PINR, 93285-0, 35384-4, BMP, 3040-3, LIVR, 54412-0, 00838-0 #### [facility] ([id number]) [address] [place] [address] 38169 LIVER PANELon 10-25-2023 Albumin [Mass/Vol] 4.1 g/dL Normal 3.2-5.3 [facility] Comment on above: Performed By: #### C BCA, PINR, 96802-0, 44193-6, BMP, 3040-3, LIVR, 15966-4, 86188-7 #### [facility] ([id number]) [address] [place] [address] 99425 ALP [Catalytic activity/Vol] 75 U/L Normal 39-130 [facility] Comment on above: Performed By: #### C BCA, PINR, 74778-9, 81756-5, BMP, 3040-3, LIVR, 92738-3, 88953-7 #### [facility] ([id number]) [address] [place] [address] 78067 ALT [Catalytic activity/Vol] 20 U/L Normal 0-40 [facility] Comment on above: Performed By: #### C BCA, PINR, 79600-8, 08739-2, BMP, 3040-3, LIVR, 05525-2, 83788-8 #### [facility] ([id number]) [address] [place] [address] 74696 AST [Catalytic activity/Vol] 23 U/L Normal 0-41 [facility] Comment on above: Performed By: #### C BCA, PINR, 32018-8, 98837-9, BMP, 3040-3, LIVR, 59920-8, 62381-3 #### [facility] ([id number]) [address] [place] [address] 77318 Bilirubin [Mass/Vol] 1.1 mg/dL Normal 0.3-1.2 [facility] Comment on above: Performed By: #### C BCA, PINR, 13634-1, 65679-0, BMP, 3040-3, LIVR, 60136-8, 67379-7 #### [facility] ([id number]) [address] [place] [address] 95314 Bilirubin.direct [Mass/Vol] 0.2 mg/dL Normal 0.0-0.4 [facility] Comment on above: Performed By: #### C BCA, PINR, 93793-0, 42665-1, BMP, 3040-3, LIVR, 31334-5, 45381-8 #### [facility] ([id number]) [address] [place] [address] 76636 Protein [Mass/Vol] 6.5 g/dL Normal 6.0-8.0 [facility] Comment on above: Performed By: #### C BCA, PINR, 00800-2, 81228-0, BMP, 3040-3, LIVR, 49201-7, 66408-4 #### [facility] ([id number]) [address] [place] [address] 55532 Lactate (P scotty) [Moles/Vol]o n 10-25-2023 LACTATE W/REFLEX 0.6 mmol/L Normal 0.4-2.0 [facility] Comment on above: Result Comment: Result did not trigger repeat Lactate, re-order if needed. Performed By: #### C BCA, PINR, 01496-6, 07886-1, BMP, 3040-3, LIVR, 26295-3, 58867-5 #### [facility] ([id number]) [address] [place] [address] 79377 MAGNESIUMon 10-25-2023 Magnesium [Mass/Vol] 1.9 mg/dL Normal 1.8-2.6 [facility] Comment on above: Performed By: #### C BCA, PINR, 82825-3, 08016-3, BMP, 3040-3, LIVR, 46490-6, 01006-7 #### [facility] ([id number]) [address] [place] [address] 57868 PROTIME AND INRon 10-25-2023 INR Coag (PPP) [Relative time] 1.1 {INR} Normal 0.8-1.1 [facility] Comment on above: Performed By: #### C BCA, PINR, 73289-1, 09600-8, BMP, 3040-3, LIVR, 15847-8, 68945-9 #### [facility] ([id number]) [address] [place] [address] 15028 PT Coag (PPP) [Time] 12.5 s Normal 9.8-13.2 [facility] Comment on above: Result Comment: NEW REFERENCE RANGE Performed By: #### C BCA, PINR, 65613-2, 31132-9, BMP, 3040-3, LIVR, 21394-0, 67631-4 #### [facility] ([id number]) [address] [place] [address] 63724 TROPONIN Ion 10-25-2023 Troponin I.cardiac [Mass/Vol] ng/mL Normal 0.00-0.04 [facility] Comment on above: Performed By: #### C BCA, PINR, 50324-3, 32337-4, BMP, 3040-3, LIVR, 81054-7, 98080-7 #### [facility] ([id number]) [address] [place] [address] 83920 URINE CULTUREon 10-25-2023 Bacteria identified Cx Nom (U) CULTURE RESULTS <10,000 ORGANISMS/ML NORMAL URO GENITAL TERESA Normal [facility] Comment on above: Performed By: #### C BCA, PINR, 31404-4, 23803-0, BMP, 3040-3, LIVR, 93510-6, 42869-6 #### [facility] ([id number]) [address] [place] [address] 66051 XR CHEST 1 VWon 10-25-2023 XR CHEST 1 VW XR CHEST 1 VW XR CHEST 1 VW IMPRESSION: cough/weakness. Comparison 06/20/21. No acute cardiopulmonary disease. Low lung volumes with mild elevation of the right hemidiaphragm. Finalized by Lance Gonzáles MD on 10/25/2023 3:43 PM Normal [facility] aPTT Coag (PPP) [Time]on aPTT Coag (Bld) [Time] 31 s Normal 26-37 [facility] Comment on above: Result Comment: NEW REFERENCE RANGE Performed By: #### C BCA, PINR, 45347-1, 16862-3, BMP, 3040-3, LIVR, 22911-6, 68415-0 #### [facility] ([id number]) [address] [place] [address] 21090 XR Foot Complete Left*on XR Foot Complete Left* FINDINGS: Mild hallux valgus. Mild 1st MTP, interphalangeal joint space loss. Small plantar calcaneal spur. Posterior calcaneal sclerosis can be consistent with stress fracture if clinically suspect. IMPRESSION: 1. Posterior calcaneal findings can be consistent with stress fracture if clinically suspect. Report reported and signed by Vu Moore on 05/13/2022 1312 Normal [facility] C-Reactive Proteinon 022 CRP IV 0.8 mg/dl Normal <5.0 [facility] Comment on above: Performed By: #### C MP, CRP, FT4, LIPD, FT3, ESR, TSH, CBC #### [facility] [address] [place], [place] [id number] Complete Blood Counton 11-10 Erythrocyte distribution width (RBC) [Ratio] 13.9 % Normal 11.0-15.0 [facility] Comment on above: Performed By: #### C MP, CRP, FT4, LIPD, FT3, ESR, TSH, CBC #### [facility] [address] [place], [place] [id number] Hematocrit (Bld) [Volume fraction] 48.5 % Normal 38.5-50.0 [facility] Comment on above: Performed By: #### C MP, CRP, FT4, LIPD, FT3, ESR, TSH, CBC #### [facility] [address] [place], [place] [id number] Hemoglobin (Bld) [Mass/Vol] 15.1 g/dL Normal 13.0-17.1 [facility] Comment on above: Performed By: #### C MP, CRP, FT4, LIPD, FT3, ESR, TSH, CBC #### [facility] [address] [place], [place] [id number] MCH (RBC) [Entitic mass] 28.6 pg Normal 27.0-33.0 [facility] Comment on above: Performed By: #### C MP, CRP, FT4, LIPD, FT3, ESR, TSH, CBC #### [facility] [address] [place], [place] [id number] MCHC (RBC) [Mass/Vol] 31.1 g/dL Low 32.0-36.0 [facility] Comment on above: Performed By: #### C MP, CRP, FT4, LIPD, FT3, ESR, TSH, CBC #### [facility] [address] [place], [place] [id number] MCV (RBC) [Entitic vol] 92 fL Normal 80-100 [facility] Comment on above: Performed By: #### C MP, CRP, FT4, LIPD, FT3, ESR, TSH, CBC #### [facility] [address] [place], [place] [id number] Platelet mean volume (Bld) [Entitic vol] 9.10 fL Normal 7.50-12.50 [facility] Comment on above: Performed By: #### C MP, CRP, FT4, LIPD, FT3, ESR, TSH, CBC #### [facility] [address] [place], [place] [id number] Platelets (Bld) [#/Vol] 151 10*3/uL Normal 140-400 [facility] Comment on above: Performed By: #### C MP, CRP, FT4, LIPD, FT3, ESR, TSH, CBC #### [facility] [address] [place], [place] [id number] RBC (Bld) [#/Vol] 5.28 10*6/uL Normal 4.20-5.80 [facility] Comment on above: Performed By: #### C MP, CRP, FT4, LIPD, FT3, ESR, TSH, CBC #### [facility] [address] [place], [place] [id number] RDW-SD 46.7 fL Normal 37.0-50.0 [facility] Comment on above: Performed By: #### C MP, CRP, FT4, LIPD, FT3, ESR, TSH, CBC #### [facility] [address] [place], [place] [id number] WBC (Bld) [#/Vol] 10.2 10*3/uL Normal 3.8-11.0 [facility] Comment on above: Performed By: #### C MP, CRP, FT4, LIPD, FT3, ESR, TSH, CBC #### [facility] [address] [place], [place] [id number] Comprehensive Met[facility] 11-10-2021 Albumin [Mass/Vol] 4.1 g/dL Normal 3.6-5.1 [facility] Comment on above: Performed By: #### C MP, CRP, FT4, LIPD, FT3, ESR, TSH, CBC #### [facility] [address] [place], [place] [id number] Albumin/Globulin [Mass ratio] 1.6 {ratio} Normal 1.0-2.5 [facility] Comment on above: Performed By: #### C MP, CRP, FT4, LIPD, FT3, ESR, TSH, CBC #### [facility] [address] [place], [place] [id number] ALP [Catalytic activity/Vol] 98 U/L Normal 40-129 [facility] Comment on above: Performed By: #### C MP, CRP, FT4, LIPD, FT3, ESR, TSH, CBC #### [facility] [address] [place], [place] [id number] ALT [Catalytic activity/Vol] 36 U/L Normal 9-46 [facility] Comment on above: Result Comment: 08/13 Female reference range changed. Performed By: #### C MP, CRP, FT4, LIPD, FT3, ESR, TSH, CBC #### [facility] [address] [place], [place] [id number] Anion gap [Moles/Vol] 16 mmol/L Normal 12-20 [facility] Comment on above: Result Comment: Effe ctive 09/18/2019 reference range changed. Performed By: #### C MP, CRP, FT4, LIPD, FT3, ESR, TSH, CBC #### [facility] [address] [place], [place] [id number] AST [Catalytic activity/Vol] 19 U/L Normal 10-40 [facility] Comment on above: Performed By: #### C MP, CRP, FT4, LIPD, FT3, ESR, TSH, CBC #### [facility] [address] [place], [place] [id number] Bilirubin [Mass/Vol] 0.65 mg/dL Normal 0.30-1.20 [facility] Comment on above: Performed By: #### C MP, CRP, FT4, LIPD, FT3, ESR, TSH, CBC #### [facility] [address] [place], [place] [id number] BUN/CREA 13 Ratio Normal 6-22 [facility] Comment on above: Performed By: #### C MP, CRP, FT4, LIPD, FT3, ESR, TSH, CBC #### [facility] [address] [place], [place] [id number] Calcium [Mass/Vol] 8.5 mg/dL Low 8.6-10.2 [facility] Comment on above: Performed By: #### C MP, CRP, FT4, LIPD, FT3, ESR, TSH, CBC #### [facility] [address] [place], [place] [id number] Chloride [Moles/Vol] 107 mmol/L Normal 98-107 [facility] Comment on above: Performed By: #### C MP, CRP, FT4, LIPD, FT3, ESR, TSH, CBC #### [facility] [address] [place], [place] [id number] CO2 [Moles/Vol] 25 mmol/L Normal 20-31 [facility] Comment on above: Performed By: #### C MP, CRP, FT4, LIPD, FT3, ESR, TSH, CBC #### [facility] [address] [place], [place] [id number] Creatinine [Mass/Vol] 1.6 mg/dL High 0.7-1.4 [facility] Comment on above: Performed By: #### C MP, CRP, FT4, LIPD, FT3, ESR, TSH, CBC #### [facility] [address] [place], [place] [id number] eGFRAA 53 mL/min/1.73m2 Low >60 [facility] Comment on above: Performed By: #### C MP, CRP, FT4, LIPD, FT3, ESR, TSH, CBC #### [facility] [address] [place], [place] [id number] eGFRNAA 44 mL/min/1.73m2 Low >60 [facility] Comment on above: Performed By: #### C MP, CRP, FT4, LIPD, FT3, ESR, TSH, CBC #### [facility] [address] [place], [place] [id number] Globulin (S) [Mass/Vol] 2.5 g/dL Normal 1.9-3.7 [facility] Comment on above: Performed By: #### C MP, CRP, FT4, LIPD, FT3, ESR, TSH, CBC #### [facility] [address] [place], [place] [id number] Glucose [Mass/Vol] 88 mg/dL Normal 65-99 [facility] Comment on above: Result Comment: For FASTING Glucose --- ADA reference ranges: Normal 65-99 mg/dl Prediabetes 100-125 Diabetes >/= 126 Performed By: #### C MP, CRP, FT4, LIPD, FT3, ESR, TSH, CBC #### [facility] [address] [place], [place] [id number] Potassium [Moles/Vol] 5.2 mmol/L Normal 3.5-5.5 [facility] Comment on above: Performed By: #### C MP, CRP, FT4, LIPD, FT3, ESR, TSH, CBC #### [facility] [address] [place], [place] [id number] Protein [Mass/Vol] 6.6 g/dL Normal 6.1-8.1 [facility] Comment on above: Performed By: #### C MP, CRP, FT4, LIPD, FT3, ESR, TSH, CBC #### [facility] [address] [place], [place] [id number] Sodium [Moles/Vol] 143 mmol/L Normal 135-146 [facility] Comment on above: Performed By: #### C MP, CRP, FT4, LIPD, FT3, ESR, TSH, CBC #### [facility] [address] [place], [place] [id number] Urea nitrogen [Mass/Vol] 20 mg/dL Normal 7-25 [facility] [employer] Comment on above: Performed By: #### C MP, CRP, FT4, LIPD, FT3, ESR, TSH, CBC #### [facility] [address] [place], [place] [id number] Free T3on 11-10-2021 FT3 2.63 pg/mL Normal 2.00-4.40 [facility] Comment on above: Performed By: #### C MP, CRP, FT4, LIPD, FT3, ESR, TSH, CBC #### [facility] [address] [place], [place] [id number] Free T4on 11-10-2021 Free T4 [Mass/Vol] 1.00 ng/dL Normal 0.80-1.80 [facility] Comment on above: Performed By: #### C MP, CRP, FT4, LIPD, FT3, ESR, TSH, CBC #### [facility] [address] [place], [place] [id number] Lipid Panelon 11-10-2021 Cholesterol [Mass/Vol] 147 mg/dL Normal 125-200 [facility] Comment on above: Result Comment: Low risk < 200mg/dL Borderline risk 201-239 mg/dl High risk > or equal to 240 Performed By: #### C MP, CRP, FT4, LIPD, FT3, ESR, TSH, CBC #### [facility] [address] [place], [place] [id number] Cholesterol in HDL [Mass/Vol] 71 mg/dL Normal >40 [facility] Comment on above: Result Comment: High Cardiovascular Risk HDL <40 mg/dL Low Cardiovascular Risk HDL > or equal to 60 mg/dl Performed By: #### C MP, CRP, FT4, LIPD, FT3, ESR, TSH, CBC #### [facility] [address] [place], [place] [id number] Cholesterol in LDL [Mass/Vol] 58 mg/dL Normal [facility] Comment on above: Result Comment: LDL ATP III CLASSIFICATION LDL less than 100 mg/dl Optimal LDL 100-129 mg/dl Near or above optimal LDL 130-159 Borderline high LDL 160-189 High LDL greater than 189 mg/dl Very High Performed By: #### C MP, CRP, FT4, LIPD, FT3, ESR, TSH, CBC #### [facility] [address] [place], [place] [id number] Cholesterol in VLDL [Mass/Vol] 18 mg/dL Normal [facility] Comment on above: Performed By: #### C MP, CRP, FT4, LIPD, FT3, ESR, TSH, CBC #### [facility] [address] [place], [place] [id number] Cholesterol.total/Chol esterol in HDL [Mass ratio] 2 {ratio} Normal [facility] Comment on above: Performed By: #### C MP, CRP, FT4, LIPD, FT3, ESR, TSH, CBC #### [facility] [address] [place], [place] [id number] Triglyceride [Mass/Vol] 89 mg/dL Normal 30-150 [facility] Comment on above: Result Comment: TRIG ATPIII CLASSIFICATIONS TRIG less than 150 mg/dl Normal TRIG 150-199 mg/dl Borderline High TRIG 200-500 mg/dl High TRIG greather than 500 mg/dl Very High Performed By: #### C MP, CRP, FT4, LIPD, FT3, ESR, TSH, CBC #### [facility] [address] [place], [place] [id number] PSA SCREEN (MEDICARE)on 10-15 TPSA 0.731 ng/mL Normal <4.000 [facility] Comment on above: Result Comment: PSA Test Method: ECLIA/Alicia e 601 Performed By: #### P SA MC #### [facility] [address] [place], [place] [id number] RBC Sedimentation Rateon ESR (Bld) [Velocity] 57.00 mm/h High 0.00-20.00 [facility] Comment on above: Performed By: #### C MP, CRP, FT4, LIPD, FT3, ESR, TSH, CBC #### [facility] [address] [place], [place] [id number] TSHon 11-10-2021 TSH 2.990 uIU/mL Normal 0.400-4.500 [facility] Comment on above: Performed By: #### C MP, CRP, FT4, LIPD, FT3, ESR, TSH, CBC #### [facility] [address] [place], [place] [id number] Uric Acidon 10-20-2021 URIC 8.5 mg/dL High 4.0-8.0 [facility] Comment on above: Result Comment: Refe rence range change 07/30/2017. Prior reference range F 2.4-5.7mg/dL. M 3.4-7.0 mg/dL. Performed By: #### U BOSSMAN #### [facility] [address] [place], [place] [id number] XR pre/post mri xrayon 08-01 XR pre/post mri xray [facility] Main [address] [address] MRI Report Signed Patient: Hakeem Escobedo MR#: [id number] : 1945 Acct:[id number] Age/Sex: 75 / M ADM Date: 08/01/21 Loc: [facility] Room: Type: [facility] Attending Dr: Petrona Boyer NP Ordering Provider: Petrona Boyer NP Date of Service: 08/01/21 MR/MR lumbar spine wo con: M51.26 ([id number]) XR/XR pre/post mri xray: M5. Copies to: Petrona Boyer NP MR lumbar [...] Kirk Santiago M.D.08/01/2021 5:06 PM Dictation Location: [place] [address] Transcribed By: [facility] 08/01/21 170 Dictated By: Kirk Santiago II, MD 08/01/21 165 Signed By: 08/01/21 170 [facility] Vital Signs Date Time Vital Sign Value Performing Clinician Faci lity 08-30-2024 08:59-0500 Body height 167.6 cm Mono Knowles MD Work Phone: [facility] 08-30-2024 08:59-0500 Body mass index (BMI) [Ratio] 29.86 kg/m2 Mono Knowles MD Work Phone: [facility] 08-30-2024 08:59-0500 Body weight 83.92 kg Mono Knowles MD Work Phone: [facility] 08-30-2024 08:59-0500 Diastolic blood pressure 68 mm[Hg] Mono Knowles MD Work Phone: [facility] 08-30-2024 08:59-0500 Heart rate 66 /min Mono Knowles MD Work Phone: [facility] 08-30-2024 08:59-0500 SaO2% (BldA) [Mass fraction] 96 % Mono Knowles MD Work Phone: [facility] 08-30-2024 08:59-0500 Systolic blood pressure 112 mm[Hg] Mono Knowles MD Work Phone: [facility] 07-12-2024 10:12-0400 Body height 167.6 cm Mono Knowles MD Work Phone: [facility] 07-12-2024 10:12-0400 Body mass index (BMI) [Ratio] 30.34 kg/m2 Mono Knowles MD Work Phone: [facility] 07-12-2024 10:12-0400 Body weight 85.28 kg Mono Knowles MD Work Phone: [facility] 07-12-2024 10:12-0400 Diastolic blood pressure 74 mm[Hg] Mono Knowles MD Work Phone: [facility] 07-12-2024 10:12-0400 Heart rate 62 /min Mono Knowles MD Work Phone: [facility] 07-12-2024 10:12-0400 SaO2% (BldA) [Mass fraction] 97 % Mono Knowles MD Work Phone: [facility] 07-12-2024 10:12-0400 Systolic blood pressure 132 mm[Hg] Mono Knowles MD Work Phone: [facility] 06-26-2024 09:15-0400 Body height 167.6 cm Mono Knowles MD Work Phone: [facility] 06-26-2024 09:15-0400 Body mass index (BMI) [Ratio] 29.7 kg/m2 Mono Knowles MD Work Phone: [facility] 06-26-2024 09:15-0400 Body weight 83.46 kg Mono Knowles MD Work Phone: [facility] 06-26-2024 09:15-0400 Diastolic blood pressure 70 mm[Hg] Mono Knowles MD Work Phone: [facility] 06-26-2024 09:15-0400 Heart rate 63 /min Mono Knowles MD Work Phone: [facility] 06-26-2024 09:15-0400 SaO2% (BldA) [Mass fraction] 97 % Mono Knowles MD Work Phone: [facility] 06-26-2024 09:15-0400 Systolic blood pressure 124 mm[Hg] Mono Knowles MD Work Phone: [facility] 05-24-2024 08:42-0400 Body height 167.6 cm Yvette Cory INSULATION INSTALLER Work Phone: [facility] 05-24-2024 08:42-0400 Body mass index (BMI) [Ratio] 29.86 kg/m2 Yvette aRy INSULATION INSTALLER Work Phone: [facility] 05-24-2024 08:42-0400 Body weight 83.92 kg Yvette Ray INSULATION INSTALLER Work Phone: [facility] 05-24-2024 08:42-0400 Diastolic blood pressure 82 mm[Hg] Yvette Ray INSULATION INSTALLER Work Phone: [facility] 05-24-2024 08:42-0400 Heart rate 60 /min Yvette Ray INSULATION INSTALLER Work Phone: [facility] 05-24-2024 08:42-0400 SaO2% (BldA) [Mass fraction] 98 % Yvette Ray INSULATION INSTALLER Work Phone: [facility] 05-24-2024 08:42-0400 Systolic blood pressure 122 mm[Hg] Yvette Ray INSULATION INSTALLER Work Phone: [facility] 05-10-2024 09:59-0400 Body height 167.6 cm Mono Knowles MD Work Phone: [facility] 05-10-2024 09:59-0400 Body mass index (BMI) [Ratio] 30.18 kg/m2 Mono Knowles MD Work Phone: [facility] 05-10-2024 09:59-0400 Body weight 84.82 kg Mono Knowles MD Work Phone: [facility] 05-10-2024 09:59-0400 Diastolic blood pressure 82 mm[Hg] Mono Knowles MD Work Phone: [facility] 05-10-2024 09:59-0400 Heart rate 56 /min Mono Knowles MD Work Phone: [facility] 05-10-2024 09:59-0400 SaO2% (BldA) [Mass fraction] 98 % Mono Knowles MD Work Phone: [facility] 05-10-2024 09:59-0400 Systolic blood pressure 134 mm[Hg] Mono Knowles MD Work Phone: [facility] 12-09-2023 08:38-0400 Body height 167.6 cm Gume Son MD Work Phone: [facility] 12-09-2023 08:38-0400 Body mass index (BMI) [Ratio] 29.86 kg/m2 Gume Son MD Work Phone: [facility] 12-09-2023 08:38-0400 Body weight 83.92 kg Gume Son MD Work Phone: [facility] 12-09-2023 08:38-0400 Diastolic blood pressure 70 mm[Hg] Gume Son MD Work Phone: [facility] 12-09-2023 08:38-0400 Heart rate 63 /min Gume Son MD Work Phone: [facility] 12-09-2023 08:38-0400 SaO2% (BldA) [Mass fraction] 95 % Gume Son MD Work Phone: [facility] 12-09-2023 08:38-0400 Systolic blood pressure 110 mm[Hg] Gume Son MD Work Phone: [facility] 10-27-2023 08:49-0500 Body height 167.6 cm Mono Knowles MD Work Phone: [facility] 10-27-2023 08:49-0500 Body mass index (BMI) [Ratio] 29.7 kg/m2 Mono Knowles MD Work Phone: [facility] 10-27-2023 08:49-0500 Body weight 83.46 kg Mono Knowles MD Work Phone: [facility] 10-27-2023 08:49-0500 Diastolic blood pressure 66 mm[Hg] Mono Knowles MD Work Phone: [facility] 10-27-2023 08:49-0500 Heart rate 56 /min Mono Knowles MD Work Phone: [facility] 10-27-2023 08:49-0500 SaO2% (BldA) [Mass fraction] 97 % Mono Knowles MD Work Phone: [facility] 10-27-2023 08:49-0500 Systolic blood pressure 108 mm[Hg] Mono Knowles MD Work Phone: [facility] Encounters Encounter Date Encounter Type Care Provider Facility Start: 08-31-2024 End: 08-31-2024 Telephone encounter Karol Wednesday DIRECTOR [employer]PAREL Work Phone: [facility] Start: 08-31-2024 ambulatory MONO KNOWLES [facility] Start: 08-30-2024 End: 08-30-2024 Bamboo flowsheet Mono Knowles MD Work Phone: [facility] Start: 08-30-2024 End: 08-30-2024 Bamboo flowsheet Mono Knowles MD Work Phone: [facility] Start: 08-30-2024 End: 08-30-2024 Office outpatient visit 25 minutes Mono Knowles MD Work Phone: [facility] Comment on above: Dysarthria (Primary Dx); Cerebrovascular accident (CVA), unspecified mechanism (CMS/HCC); Spinal stenosis of lumbar region with neurogenic claudication; Mixed hyperlipidemia (CMS/HCC) Start: 08-30-2024 End: 08-30-2024 ambulatory MONO KNOWLES Not Available Start: 08-24-2024 End: 08-24-2024 Telephone encounter [facility] Curry [facility] Comment on above: Results Start: 08-23-2024 End: 08-23-2024 ambulatory KE SANCHEZ Not Available Start: 08-17-2024 End: 08-17-2024 Refill Mono Knowles MD Work Phone: [facility] Comment on above: Cervical stenosis of spinal canal Start: 08-15-2024 End: 08-22-2024 Telephone encounter Sahra Richardson [facility] Comment on above: NEW PATIENT REFERRAL Start: 08-10-2024 End: 08-12-2024 ambulatory MONO KNOWLES [facility] Start: 07-20-2024 End: 07-20-2024 Refill Odalys Villagomez LPN [facility] Comment on above: Cervical stenosis of spinal canal Start: 07-19-2024 End: 07-19-2024 Refill Yvette Ray NP Work Phone: [facility] Comment on above: Parotiditis; Thrush Start: 07-12-2024 End: 07-12-2024 Bamboo flowsheet Mono Knowles MD Work Phone: [facility] Start: 07-12-2024 End: 07-12-2024 Bamboo flowsheet Mono Knowles MD Work Phone: [facility] Start: 07-12-2024 End: 07-13-2024 Telephone encounter Mono Knowles MD Work Phone: [facility] Comment on above: Med Refill Start: 07-12-2024 End: 07-12-2024 Office outpatient visit 25 minutes Mono Knowles MD Work Phone: [facility] Comment on above: Chest discomfort (Pr imary Dx); Costochondritis, acute; Pain of right thigh; Lumbar herniated disc; Right lumbar radiculopathy Start: 07-12-2024 End: 07-12-2024 ambulatory MONO KNOWLES Not Available Start: 06-29-2024 End: 06-29-2024 Refill Mono Knowles [...] Start: 06-22-2024 End: 06-22-2024 Refill Karol Wednesday DIRECTOR [employer]EL Work Phone: [facility] Comment on above: Cervical stenosis of spinal canal Start: 06-21-2024 End: 06-26-2024 Clinisync Result Encounter Generic External Data Provider [facility] Unsolicited Start: 06-21-2024 End: 06-26-2024 Clinisync Result Encounter Generic External Data Provider [facility] External Department Unsolicited Start: 05-29-2024 End: 06-01-2024 Telephone encounter Mono Knowles MD Work Phone: [facility] Start: 05-24-2024 End: 05-24-2024 Bamboo flowsheet Yvette Ray INSULATION INSTALLER Work Phone: [facility] Start: 05-24-2024 End: 05-24-2024 Bamboo flowsheet Yvette Ray INSULATION INSTALLER Work Phone: [facility] Start: 05-24-2024 End: 05-24-2024 Office outpatient visit 25 minutes Yvette Ray INSULATION INSTALLER Work Phone: [facility] Comment on above: Parotiditis (Primary Dx); Cervical stenosis of spinal canal Start: 05-24-2024 End: 05-24-2024 ambulatory YVETTE RAY Not Available Start: 05-18-2024 End: 05-19-2024 Emergency department patient visit JOMARCaden SCHWARTZ [facility] Start: 05-10-2024 End: 05-10-2024 Bamboo flowsheet Mono Knowles MD Work Phone: [facility] Start: 05-10-2024 End: 05-10-2024 Bamboo flowsheet Mono Knowles MD Work Phone: [facility] Start: 05-10-2024 End: 05-10-2024 ambulatory MONO KNOWLES [facility] Start: 05-10-2024 End: 05-10-2024 Office outpatient visit 25 minutes Mono Knowles MD Work Phone: [facility] Comment on above: Subacute cough (Prim alessandro Dx); Acute bronchitis, unspecified organism Start: 05-10-2024 End: 05-10-2024 ambulatory MONO KNOWLES Not Available Start: 04-05-2024 End: 04-05-2024 ambulatory MONO KNOWLES Not Available Start: 01-03-2024 End: 01-03-2024 ambulatory MONO KNOWLES Not Available Start: 12-09-2023 End: 12-09-2023 Office outpatient visit 15 minutes Racheal Chi MD Work Phone: [facility] Comment on above: Benign essential hyp ertension (Primary Dx); Coronary artery disease involving [place] coronary artery of [place] heart without angina pectoris Start: 12-09-2023 End: 12-09-2023 ambulatory [facility] Start: 12-08-2023 [facility] Start: 11-16-2023 Telephone encounter Quynh Bustillo [facility] Start: 11-01-2023 Telephone encounter Magalie Mcdaniel RN [facility] Start: 10-28-2023 Refill Christin Bazzi RN [facility] Comment on above: Med Refill Start: 10-27-2023 [employer] Mono turner MD Work Phone: [facility] [...] above: Wellness examination (Primary Dx); Atherosclerosis of [place] coronary artery of [place] heart with stable angina pectoris (CMS/HCC); Stented [...] 10-25-2023 End: 10-26-2023 Emergency department patient visit [facility] Start: 10-25-2023 End: 10-26-2023 Emergency department patient visit [facility] Start: 10-25-2023 End: 10-25-2023 Emergency department patient visit MONO KNOWLES [facility] Start: 10-25-2023 End: 10-26-2023 Emergency department patient visit [facility] Start: 02-04-[address] MONO KNOWLES Facilit [...] for malign ant neoplasm of colon Colonoscopy [facility] Start: 05-18-2025 Tobacco Screening Tobacco Screening [facility] Start: 12-08-2024 Adult BMI Screening Adult BMI Screen ing [facility] Start: 12-08-2024 Tobacco Screening Tobacco Screening [facility] Start: 10-27-2024 Medicare Annual Wellness (AWV) Medicare Annual Wellness (AWV) [facility] Start: 10-25-2024 Tobacco Screening Tobacco Screening [facility] Start: 09-18-2024 End: 09-18-2024 Patient encounter procedure 09/18/2024 9:00 AM EST Office Visit [facility] [address] [place] [address] Mono Knowles MD [address] [place] [address] [facility] Start: 08-30-2024 End: 08-30-2024 Patient encounter procedure 08/30/2024 9:15 AM EST Office Visit [facility] [address] [place] [address] Mono Knowles MD [address] [place] [address] Arrived [facility] Comment on above: Arrived Start: 07-12-2024 End: 07-12-2024 Patient encounter procedure [facility] Comment on above: Arrived Start: 06-30-2024 End: 06-30-2024 Patient encounter procedure 06/30/2024 10:00 AM EDT Office Visit [facility] [address] [place] [address] Mono Knowles MD [address] [place] [address] [facility] Start: 06-26-2024 End: 06-26-2026 [...] [facility] [address] [place] [address] Mono Knowles MD [address] [place] [address] [facility] Start: 06-07-2024 End: 06-07-2024 Patient encounter procedure 06/07/2024 2:00 PM EDT Office Visit [facility] [address] [place] [address] Mono Knowles MD [address] [place] [address] [facility] Start: 05-25-2024 End: 05-25-2024 Patient encounter procedure 05/25/2024 11:00 AM EDT Office Visit [facility] [address] [place] [address] Mono Knowles MD [address] [place] [address] [facility] Start: 05-24-2024 End: 05-24-2024 Patient encounter procedure 05/24/2024 9:00 AM EDT Office Visit [facility] [address] [place] [address] Yvette Ray, DIA [address] [place] [address] Arrived [facility] Comment on above: Arrived Start: 05-14-2024 Influenza vaccination Influenza Vacc ine (#1) [facility] Start: 05-10-2024 End: 05-10-2024 Patient encounter procedure 05/10/2024 10:15 AM EDT Office Visit [facility] [address] [place] [address] Mono Knowles MD [address] [place] [address] Arrived [facility] Comment on above: Arrived Start: 02-04-2024 Medicare Annual Wellness (AWV) Medicare Annual Wellness (AWV) [facility] Start: 01-03-2024 End: 01-03-2024 Patient encounter procedure 01/03/2024 9:30 AM EDT Office Visit [facility] [address] [place] [address] Mono Knowles MD [address] [facility] [address] [place] [address] [facility] Start: 12-09-2023 End: 12-09-2023 Patient encounter procedure 12/09/2023 8:30 AM EDT Office Visit [facility] [address] [place] [address] Racheal Chi MD [address] [facility] [place] [address] Gume Son MD [address] [place] [address] [facility] Start: 11-26-2023 End: 11-26-2023 Patient encounter procedure 11/26/2023 11:15 AM EDT Office Visit [facility] [address] [place] [address] Racheal Chi MD [address] [place] [facility] [place] [address] [facility] Start: 11-17-2023 End: 11-17-2023 Patient encounter procedure 11/17/2023 11:15 AM EST Office Visit [facility] [address] [place] [address] Racheal Chi MD [address] [place] [facility] [place] [address] Priyanka Carbajal MD [address] [place] [address] [facility] Start: 10-27-2023 End: 10-27-2024 Comprehensive metabolic 2000 panel - Serum or Plasma Comprehensive metabolic panel Lab Routine Wellness examination Atherosclerosis of [place] coronary artery of [place] heart with stable angina pectoris (CMS/HCC) Expected: 10/27/2023 (Approximate), Expires: 10/27/2024 [facility] Comment on above: Expected: 10/27/2023 (Approximate), Expires: 10/27/2024 Start: 10-27-2023 End: 10-27-2024 Lipid 1996 panel - Serum or Plasma Lipid panel Lab Routine Wellness examination Atherosclerosis of [place] coronary artery of [place] heart with stable angina pectoris (CMS/HCC) Expected: 10/27/2023 (Approximate), Expires: 10/27/2024 [facility] Comment on above: Expected: 10/27/2023 (Approximate), Expires: 10/27/2024 Start: 10-27-2023 End: 10-27-2024 TSH W/REFLEX TO FT4 TSH W/REFLEX TO FT4 Lab Routine Wellness examination Atherosclerosis of [place] coronary artery of [place] heart with stable angina pectoris (CMS/HCC) Expected: 10/27/2023 (Approximate), Expires: 10/27/2024 [facility] Comment on above: Expected: 10/27/2023 (Approximate), Expires: 10/27/2024 Start: 10-27-2023 End: 10-27-2023 Patient encounter procedure 10/27/2023 9:15 AM EST Office Visit [facility] [address] [facility] [address] [place] [address] Mono Knowles MD [address] [facility] [address] [place], [place] [id number] Arrived [facility] Comment on above: Arrived Start: 10-19-2023 Adult BMI Screening [facility] [facility] Start: 11-27-2021 DTaP,Tdap and Td Vaccines (2 - Td or Tdap) DTaP,Tdap and Td Vaccines (2 - Td or Tdap) [facility] Start: 12-01-2011 Abdominal aortic aneurysm screening Abdominal Aortic Aneurysm (AAA) Screen [facility] Start: 12-01-2011 Fall Risk Screening Fall Risk Screen ing [facility] Start: 1964 Adult BMI Follow Up Plan Adult BMI Follow Up Plan [employer] Start: 1958 Depression Screening Depression Scre ening [employer] Start: 1945 Medicare Annual Wellness Visit Medicare [facility] W Auto Different ial panel - Blood CBC and differential Lab Routine Wellness examination Atherosclerosis of [place] coronary artery of [place] heart with stable angina pectoris (CMS/HCC) Ordered: 10/27/2023 [facility] [employer] Work Phone: Comment on above: Ordered: 10/27/2023 End: 08-24-2025 Lead, blood Lead, blood Lab Routine Elevated blood lead level 1 Occurrences starting 08/24/2024 until 08/24/2025 [employer] Work Phone: Comment on above: 1 Occurrences starti ng 08/24/2024 until 08/24/2025 XR Chest 2 Views XR chest 2 view s Imaging Routine Subacute cough Ordered: 05/10/2024 [facility] [employer] Work Phone: Comment on above: Ordered: 05/10/2024 Immunizations Immunization Date Immunization Notes Care Provider [facility] 05-17-2024 influenza, high dose seasonal, preservative-free Karol Wednesday DIRECTOR APPAREL Work Phone: [facility] 11-17-2023 ABRYSVO - Respirator y syncytial virus (RSV), vaccine, bivalent, protein subunit RSV prefusion F, diluent reconstituted, 0.5 mL, PF Mono Knowles MD Work Phone: [facility] 07-12-2023 Influenza, High-dose Seasonal, Quadrivalent, Preservative Free Mono Knowles MD Work Phone: [facility] 07-12-2023 influenza virus vacc ine, unspecified formulation Mono Knowles MD Work Phone: [facility] 12-22-2022 zoster vaccine recombinant D sunni Knowles MD Work Phone: [facility] 06-17-2022 Influenza, High-dose Seasonal, Quadrivalent, Preservative Free Mono Knowles MD Work Phone: [facility] 06-18-2021 Influenza, High-dose Seasonal, Quadrivalent, Preservative Free Mono Knowles MD Work Phone: [facility] 08-01-2020 zoster vaccine recombinant D sunni Knowles MD Work Phone: [facility] 05-30-2020 influenza, high dose seasonal, preservative-free Mono Knowles MD Work Phone: [facility] 06-14-2019 influenza, high dose seasonal, preservative-free Mono Knowles MD Work Phone: [facility] 09-09-2018 influenza, seasonal, injectable, preservative free Mono Knowles MD Work Phone: [facility] 01-31-2018 pneumococcal polysaccharide vaccine, 23 valent Mono Knowles MD Work Phone: [facility] 06-23-2017 influenza, high dose seasonal, preservative-free Mono Knowles MD Work Phone: [facility] 05-14-2016 seasonal influenza, intradermal, preservative free Mono Knowles MD Work Phone: [facility] 10-04-2015 influenza, injectabl e, quadrivalent, preservative free Mono Knowles MD Work Phone: [facility] 07-15-2015 seasonal influenza, intradermal, preservative free Mono Knowles MD Work Phone: [facility] 04-22-2015 pneumococcal conjuga te vaccine, 13 valent Mono Knowles MD Work Phone: [facility] 11-28-2011 tetanus toxoid, redu ria diphtheria toxoid, and acellular pertussis vaccine, adsorbed Mono Knowles MD Work Phone: [facility] Payers Date Payer Category Payer Medicare (Managed Care) JONATHAN DENIS Member Subscriber Plan / Payer (Effective 2019-Present) Name: Hakeem Escobedo Relation to Subscriber: Self Name: Hakeem Escobedo Payer ID: Not on file Group ID: [id number] Type: Not on file Address: [id number] 2019 Medicare [id number] 2019 Medicare HMO [facility] [id number] 2019 Medicare [id number] 2017 Medicaid [id number] 2017 Medicaid [id number] 1959 Self-pay 1945 Unknown [id number] 2.0.1.097598.3.579.2. 593 1945 Unknown [id number] .0.1.869937.3.579.2. 1258 1946 Unknown [id number] 2.840.1.917613.3.579.2. 125 1946 Unknown [id number] 2.16840.1.898170.3.579.2. 125 1946 Unknown [id number] 2.16840.1.464324.3.579.2. 1259 1946 Unknown [id number] 2.16840.1.346377.3.579.2. 125 1946 Unknown [id number] 2.16.840.1.807546.3.579.2. 1258 1946 Unknown [id number] 2.16.840.1.192430.3.579.2. 1258 1946 Unknown [id number] 2.16.840.1.773553.3.579.2. 1258 1946 Unknown [id number] 2.16.840.1.988387.3.579.2. 1258 1946 Unknown [id number] 2.16.840.1.823999.3.579.2. 1258 1946 Unknown [id number] 2.840.1.756565.3.579.2. 1285 1946 Unknown [id number] 2.840.1.317251.3.579.2. 1285 1946 Unknown [id number] 2.840.1.380742.3.579.2. 1285 1946 Unknown [id number] 2.840.1.152536.3.579.2. 1285 1946 Unknown [id number] 2.840.1.870392.3.579.2. 1285 1946 Unknown [id number] 2.840.1.319964.3.579.2. 1285 1946 Unknown [id number] 2.840.1.637894.3.579.2. 1285 1946 Unknown [id number] 2.840.1.228355.3.579.2. 1285 1946 Unknown [id number] 2.16.840.1.238753.3.579.2. 1285 1946 Unknown [id number] 2.16840.1.564685.3.579.2. 1285 1946 Unknown [id number] 2.16840.1.571882.3.579.2. 1286 1946 Unknown [id number] 2.16.840.1.959869.3.579.2. 1286 1946 Unknown [id number] 2.16.840.1.763772.3.579.2. 1286 1946 Unknown [id number] 2.16.840.1.763150.3.579.2. 1286 1946 Unknown [id number] 2.16.840.1.361541.3.579.2. 1286 Social History Date Type Detail Facility Start: 01-19-2022 End: 02-02-2023 Tobacco smoking status [facility] Ex-smoker [facility] Start: 09-13-2007 End: 09-13-2011 History of tobacco use Current smoker [facility] Start: 09-13-2007 End: 09-13-2011 History of tobacco use Cigarette Smoker [facility] Start: 01-19-2022 End: 02-02-2023 Tobacco use and exposure Smokeless tobacco non-user [facility] Start: 07-26-2023 End: 08-30-2024 Alcohol intake Lifetime non-drinker (finding) [facility] Start: 06-04-2023 End: 10-27-2023 History of [...] a typical day? Patient does not drink [facility] Do you feel stress - tense, restless, nervous, or anxious, or unable to sleep at night because your mind is troubled all the time - these days [OSQ] To some extent [facility] (I/We) worried wheth er (my/our) food would run out before (I/we) got money to buy more. Never true [facility] Start: 02-02-2023 Tobacco Comment Quit smoking 1 0 years ago [facility] Start: 02-02-2023 Alcohol Comment Caffeine 1-2 cups/da y [facility] Start: 1945 Sex Assigned At Not on file [facility] [place] [place] [facility] Start: 10-25-2023 End: 05-18-2024 Alcohol intake Current non-drinker of alcohol (finding) [facility] Start: 04-18-2015 Sex Male (finding) [facility] Goals Date Patient Goal Desired Activity /State Personal health goal Comment on above: Formatting of this n ote might be different from the original. Evaluation of progress towards goal: feeling much better today, doing well with therapy Personal health goal Comment on above: Formatting of this n ote might be different from the original. Evaluation of progress towards goal: under assessment, pt said he is feeling better but somewhat dizzy yet Clinical Notes 10-27-2023 to 08-31-2024 Telephone Encounter - Mono Knowles MD - 08/31/2024 12:10 PM ESTTelephone Encounter - Mono Knowles MD - 08/31/2024 12:10 PM Valeria ArELAINE granados - 08/31/2024 8:12 AM EST Note Date & Type Note Facility 08-31-2024 Telephone encounter Note Rx sent. [facility] 08-31-2024 Miscellaneous Notes Rx sent. documented in this encounter [facility] 08-31-2024 History of Present illness Narrative [facility] called this morning. Pt is wheezing and coughing and was up all night coughing. She is asking if you could send something in for pt to help with this wheezing and coughing issue. Natalie in [place]. He does not want to go to ER. She states pt talked with you about it at his appt the other day. documented in this encounter [facility] 08-30-2024 History of Present illness Narrative Images from the original note were not included. HPI Follow-up Additional comments: Recent hospitalization 08/10/24-08/12/24 at [facility] dx: CVA discharged home advised to stop ASA Med Refill Additional comments: Gabapentin--[facility] Results Additional comments: Both MRI's Last edited by Odalys Villagomez LPN on 08/30/2024 9:28 AM. Subjective Patient ID: Hakeem Escobedo is a 78 y.o. male who presents for Follow-up (Recent hospitalization 08/10/24-08/12/24 at [facility] dx: CVA discharged home advised to stop ASA), Med Refill (Gabapentin--[facility]), Dysphagia, and Results (Both MRI's). Flowsheet Row Patient Outreach from 08/15/[address] [facility] with Karol Joyner LPN Hospital Information ED, Hospital or Shelter Facility Discharge? Hospital Patient has been contacted within two business days of discharge Yes Diagnosis CVA Discharge Date 08/12/24 Discharged To: Home Setting Discharge Hospital [facility] Engagement Call Start Time 904 Admission Date 08/10/24 Medications Discharge medications reviewed and reconciled from hospital? Yes [Per [facility] pt did not leave the hospital with any new medications.] Is the patient having any side effects they believe may be caused by any medication additions or changes? No [Per [facility] pt did not leave the hospital with any new medications.] Does the patient have all medications ordered at discharge? Not applicable [Per [facility] pt did not leave the hospital with any new medications.] Is the patient taking all medications as directed (includes completed medication regime)? Yes Medication Comments Per [facility] pt did not leave the hospital with any new medications but there are some on the hospital discharge summary med list rober is not in his med list in his chart. Appointments Does the patient have a primary care provider? Yes Has the patient kept scheduled appointments due by today? Yes Self Management Does patient have home health no Patient Teaching Does the patient have access to their discharge instructions? Yes What is the patient's perception of their health status since discharge? Improving Is the patient/caregiver able to teach back the hierarchy of who to call/visit for symptoms/problems? PCP, Specialist, Home Health nurse, Urgent Care, ED, 911 Yes Wrap Up Is the patient/caregiver familiar with Advance Care Planning? Yes Would the patient like more information on Advance Care Planning? No Wrap Up Additional Comments Pt went in due to being unable to speak and very dizzy. He had a lot of testing done while in hospital, CT angiogram brain, head and carotid, Chest XR, labs, MR brain without contrast. Call End Time 0939 Z Pt states when he lays flat he has a hard time swallowing Denies trouble swallowing food or drinks throughout day Med Refill Dysphagia Current Outpatient Medications on File Prior to Visit Medication Sig Dispense Refill allopurinol (Zyloprim) 100 MG tablet TAKE ONE TABLET BY MOUTH DAILY 100 tablet 3 ALPRAZolam (Xanax) 1 MG tablet Take 1 tablet (1 mg) by mouth in the morning and 1 tablet (1 mg) before bedtime. 60 tablet 3 amLODIPine (Norvasc) 2.5 MG tablet Take 1 tablet (2.5 mg) by mouth Daily 90 tablet 3 carvedilol (Coreg) 25 MG tablet Take 25 mg by mouth in the morning and 25 mg in the evening. celecoxib (CeleBREX) 200 MG capsule Take 1 capsule (200 mg) by mouth Daily 90 capsule 3 gabapentin (Neurontin) 300 MG capsule Take 1 capsule (300 mg) by mouth at bedtime 100 capsule 3 HYDROcodone-acetaminophen ([place]) 10-325 MG tablet Take 1 tablet by mouth every 6 (six) hours if needed for severe pain 120 tablet 0 meclizine (Antivert) 25 MG tablet Take 1 tablet (25 mg) by mouth 3 (three) times a day as needed for dizziness 60 tablet 3 nitroglycerin (Nitrostat) 0.[address] [...] EVERY NIGHT BEFORE BEDTIME 270 tablet 3 zolpidem (Ambien) 10 MG tablet Take 1 tablet (10 mg) by mouth at bedtime 30 tablet 2 [DISCONTINUED] clopidogrel (Plavix) 75 MG tablet TAKE ONE TABLET BY MOUTH DAILY 100 tablet 3 [DISCONTINUED] Linzess 72 MCG capsule [DISCONTINUED] magnesium 250 MG tablet 1 (one) time each day at the same time. [DISCONTINUED] methylPREDNISolone (Medrol Dospak) 4 MG tablets TAKE BY MOUTH INSTRUCTED - PER PACKAGE INSTRUCTIONS 21 tablet 0 [DISCONTINUED] nystatin (Mycostatin) 423721 UNIT/ML suspension SWISH AND SWALLOW FIVE MILLILITERS BY MOUTH FOUR TIMES A DAY FOR 14 DAYS (MORNING, NOON, EVENING, BEFORE BEDTIME) 280 mL 0 [DISCONTINUED] tiZANidine (Zanaflex) 4 MG tablet TAKE 1 TABLET BY MOUTH EVERY 12 HOURS NEEDED FOR MUSCLE SPASMS UP TO 10 DAYS 20 tablet 0 No current facility-administered medications on file prior to visit. I have reviewed and reconciled the history and medication list with the patient today. Allergies Allergen Reactions Pneumococcal 20-Danay Conj Vacc Swelling Pneumococcal Vac Polyvalent Swelling Social History Tobacco Use Smoking status: Former Current packs/day: 0.00 Types: Cigarettes Quit date: 09/13/2000 Years since quittin.9 Smokeless tobacco: Never Tobacco comments: Quit smoking [...] on stage 3a chronic kidney disease (HCC) ([facility]/HCC) 09/20/2020 Antral ulcer 2016 Anxiety Arthritis CAD (coronary artery disease) ([facility]) Colon polyp 2019 Confusion 09/16/2020 Constipation 09/28/2017 COVID-19 09/20/2020 Diverticulosis 2019 Gastritis 2019 Hiatal hernia 2019 History of gastric ulcer Hypertension ([facility]) Injury to penis 06/06/2021 Traumatic rhabdomyolysis ([facility]/HCC) 09/20/2020 Tubulovillous adenoma polyp of colon 2019 Past Surgical History: Procedure Laterality Date CATARACT EXTRACTION Right 01/2021 CERVICAL DISCECTOMY 08/16/2017 C4-C5 COLONOSCOPY 2010 COLONOSCOPY 01/27/2019 Colonoscopy & EGD-[facility] COLONOSCOPY W/ POLYPECTOMY 08/2020 [facility] (tubulovillous adenoma) CORONARY ANGIOPLASTY WITH STENT PLACEMENT 2013 x 2 COVID 09/16/2020 hospitalization - [facility], Covid, Rhabdomyolysis CT GUIDED TRANSVAGINAL TRANSRECTAL FLUID DRAIN 08/10/2024 CT GUIDED TRANSVAGINAL TRANSRECTAL FLUID DRAIN 08/10/2024 EGD 05/2016 with biopsy EGD 08/2020 with Bx-[facility] HERNIA REPAIR 1980 bilateral inguinal hernia repair LEG SURGERY right leg trauma repair NECK SURGERY ORIF HIP FRACTURE Right leg/hi[ VASECTOMY 1980 Visit Vitals BP 112/68 Pulse 66 Ht 5' 6 Wt 185 lb SpO2 96% BMI 29.86 kg/m Smoking Status Former BSA 1.98 m Review of Systems Objective Physical Exam [...] edema. Neurological: Mental Status: He is alert. Cranial Nerves: Dysarthria present. Motor: Weakness present. Gait: Gait abnormal. Psychiatric: Mood and Affect: Mood normal. Thought Content: Thought content normal. Judgment: Judgment normal. Assessment/Plan Diagnoses and all orders for this visit: Dysarthria - Ambulatory referral to Neurology; Future - Ambulatory referral to Speech Therapy; Future Cerebrovascular accident (CVA), unspecified mechanism (CMS/HCC) - Ambulatory referral to Neurology; Future - Ambulatory referral to Speech Therapy; Future - The patient was seen today in follow up of recent hospital stay. All available hospital records were reviewed and discussed with the patient. Hospital discharge meds were reviewed. Any changes are noted above. Spinal stenosis of lumbar region with neurogenic claudication - Ambulatory referral to Neurology; Future Mixed hyperlipidemia (CMS/HCC) - clopidogrel (Plavix) 75 MG tablet; Take 1 tablet (75 mg) by mouth Daily Follow up in about 2 months (around 10/31/2024) for Routine F/U. documented in this encounter [facility] 08-24-2024 Miscellaneous Notes Patient was admitted under our service at [facility] the week of August 10. At the time, blood work had showed mildly elevated lead level. Since then. I have made numerous attempts to contact the patient but call was not answered. Please reach out to the patient and let him know about this elevated let level and I have ordered a repeat level. He should also follow up with his PCP for this. Attempted to contact the patient, phone rang once and then is stated that voicemail box has not been set up . Letter has been composed and mailed to the patient informing him of his results and the recommendation for a repeat lab order. Wrapper Off also attempted to contact the patient's PC Dr Mono Knowles at [phone] who is a provider at [facility]. The phone rang and then it stated the number that you are calling is not in service at this time . Emergency contact listed is his spouse and the same phone number is listed for her also. Thank you so much for doing this. documented in this encounter [facility] 08-24-2024 Telephone encounter Note Patient was admitted under our service at [facility] the week of August 10. At the time, blood work had showed mildly elevated lead level. Since then. I have made numerous attempts to contact the patient but call was not answered. Please reach out to the patient and let him know about this elevated let level and I have ordered a repeat level. He should also follow up with his PCP for this. [facility] 08-24-2024 Telephone encounter Note Attempted to contact the patient, phone rang once and then is stated that voicemail box has not been set up . Letter has been composed and mailed to the patient informing him of his results and the recommendation for a repeat lab order. Wrapper Off also attempted to contact the patient's PC Dr Mono Knowles at [phone] who is a provider at [facility]. The phone rang and then it stated the number that you are calling is not in service at this time . Emergency contact listed is his spouse and the same phone number is listed for her also. [facility] 08-24-2024 Telephone encounter Note Thank you so much for doing this. [facility] 08-17-2024 Telephone encounter Note OARRS reviewed, Rx sent into patient's pharmacy. [facility] 08-17-2024 Miscellaneous Notes OARRS reviewed, Rx sent into patient's pharmacy. HYDROcodone-acetaminophen ([place]) 10-325 MG tablet pt's partner called concerned about the refill being sent in. Stated she spoke with Karol about it. Natalie Caputo documented in this encounter [facility] 08-17-2024 Telephone encounter Note HYDROcodone-acetaminophen ([place]) 10-325 MG tablet pt's partner called concerned about the refill being sent in. Stated she spoke with Karol about it. Natalie Caputo [facility] 08-15-2024 Miscellaneous Notes Workqueue referral for stroke clinic New patient referral received. Dx: Cerebrovascular accident (CVA), unspecified mechanism (CMS-HCC) [I63.9] Referred by: LEONOR Pemberton Referred to: Please contact patient to schedule from referral if they should be seen by the stroke clinic or route back to scheduling staff if patient should be seen by general neurology, Thanks! PLEASE REVIEW PLAN OVER THE PHONE AND ADVISE PATIENT TO BRING UPDATED INSURANCE INFORMATION TO THEIR NEW PATIENT APPOINTMENT 1st attempt: Wrapper Off attempted to contact patient and offer to schedule in with our clinic as we have received their new patient referral. Wrapper Off received an automated message stating the following: patient's voicemail box has not been set up yet. 2nd attempt: Wrapper Off attempted to contact patient once more and offer to schedule in with our clinic as we have received their new patient referral. Wrapper Off received an automated message stating the following: patient's voicemail box has not been set up yet. [facility] Telephone encounter Note Workqueue referral for stroke clinic New patient referral received. Dx: Cerebrovascular accident (CVA), unspecified mechanism (CMS-HCC) [I63.9] Referred by: LEONOR Pemberton Referred to: Please contact patient to schedule from referral if they should be seen by the stroke clinic or route back to scheduling staff if patient should be seen by general neurology, Thanks! PLEASE REVIEW PLAN OVER THE PHONE AND ADVISE PATIENT TO BRING UPDATED INSURANCE INFORMATION TO THEIR NEW PATIENT [facility]MENT [facility] Telephone encounter Note 1st attempt: Wrapper Off attempted to contact patient and offer to schedule in with our clinic as we have received their new patient referral. Wrapper Off received an automated message stating the following: patient's voicemail box has not been set up yet. [facility] 08-15-2024 Telephone encounter Note 2nd attempt: Wrapper Off attempted to contact patient once more and offer to schedule in with our clinic as we have received their new patient referral. Wrapper Off received an automated message stating the following: patient's voicemail box has not been set up yet. [facility] 07-20-2024 Telephone encounter Note OARRS reviewed, Rx sent into patient's pharmacy. [facility] 07-20-2024 Miscellaneous Notes OARRS reviewed, Rx sent into patient's pharmacy. documented in this encounter [facility] 07-19-2024 Telephone encounter Note Is the medrol arnie ok to give pt [facility] 07-19-2024 Miscellaneous Notes Is the medrol arnie ok to give pt documented in this encounter [facility] 07-12-2024 Telephone encounter Note Celebrex sent to [facility] 07-12-2024 Miscellaneous Notes Celebrex sent to [facility] [place] documented in this encounter [facility] 07-12-2024 History of Present illness Narrative Images from the original note were not included. HPI Results Additional comments: Stress test results Med Refill Additional comments: Gabapentin-- [facility] Last edited by Odalys Villagomez LPN on 07/12/2024 10:14 AM. Subjective Patient ID: Hakeem Escobedo is a 78 y.o. male who presents for Results (Stress test results) and Med Refill (Gabapentin-- [facility]). Subjective Patient here for follow-up of elevated blood pressure. He is not exercising and is adherent to a low-salt diet. Blood pressure is well controlled at home. Cardiac symptoms: none. Patient denies: chest pain, dyspnea, and irregular heart beat. Subjective Hakeem Escobedo is a 77 y.o. male who returns for follow-up of chronic pain. Analgesia: Average daily pain of 8 which is worsening. Activity Level: Home activities: limited due to pain Pt denies any near syncope or syncope since last office visit Med Refill Pertinent negatives include no chest pain. Pain Pertinent negatives include no chest pain or shortness of breath. Hypertension Pertinent negatives include no chest pain, palpitations or shortness of breath. Current Outpatient Medications on File Prior to [...] BY MOUTH DAILY 100 tablet 3 HYDROcodone-acetaminophen ([place]) 10-325 MG tablet Take 1 tablet by mouth every 6 (six) hours if needed for severe pain 120 tablet 0 Linzess 72 MCG capsule magnesium 250 MG tablet 1 (one) time each day at the same time. meclizine (Antivert) 25 MG tablet Take 1 tablet (25 mg) by mouth 3 (three) times a day as needed for dizziness 60 tablet 3 nitroglycerin (Nitrostat) 0.[address] [...] EVERY NIGHT BEFORE BEDTIME 270 tablet 3 zolpidem (Ambien) 10 MG tablet Take 1 tablet (10 mg) by mouth at bedtime 30 tablet 2 [DISCONTINUED] gabapentin (Neurontin) 300 MG capsule Take 1 capsule (300 mg) by mouth at bedtime 100 capsule 3 tiZANidine (Zanaflex) 4 MG tablet Take 1 tablet (4 mg) by mouth every 12 (twelve) hours if needed for muscle spasms for up to 10 days 20 tablet 0 No current facility-administered medications on file prior to visit. I have reviewed and reconciled the history and medication list with the patient today. Allergies Allergen Reactions Pneumococcal 20-Danay Conj Vacc Swelling Pneumococcal Vac Polyvalent Swelling [...] on stage 3a chronic kidney disease (HCC) ([facility]) 09/20/2020 Antral ulcer 2016 Anxiety Arthritis CAD (coronary artery disease) ([facility]) Colon polyp 2019 Confusion 09/16/2020 Constipation 09/28/2017 COVID-19 09/20/2020 Diverticulosis 2019 Gastritis 2019 Hiatal hernia 2019 History of gastric ulcer Hypertension ([facility]) Injury to penis 06/06/2021 Traumatic rhabdomyolysis (CMS/HCC) 09/20/2020 Tubulovillous adenoma polyp of colon 2019 Past Surgical History: Procedure Laterality Date CATARACT EXTRACTION Right 01/2021 CERVICAL DISCECTOMY 08/16/2017 C4-C5 COLONOSCOPY 2011 COLONOSCOPY 01/27/2019 Colonoscopy & EGD-[facility]ura COLONOSCOPY W/ POLYPECTOMY 08/2020 Wiecek (tubulovillous adenoma) CORONARY ANGIOPLASTY WITH STENT PLACEMENT 2014 x 2 COVID 09/16/2020 hospitalization - [place], Covid, Rhabdomyolysis EGD 05/2016 with biopsy EGD 08/2020 with Bx-[facility] HERNIA REPAIR 1980 bilateral inguinal hernia repair LEG SURGERY right leg trauma repair NECK SURGERY ORIF HIP FRACTURE Right leg/hi[ VASECTOMY 1980 Visit Vitals BP 132/74 Pulse 62 Ht 5' 6 Wt 188 lb SpO2 97% BMI 30.34 kg/m Smoking Status Former BSA 1.99 m Review of Systems Respiratory: Negative for shortness of breath. Cardiovascular: Negative for chest pain and palpitations. Objective Physical Exam Constitutional: General: He is not in acute distress. Appearance: He is normal weight. He is not ill-appearing. HENT: Head: Normocephalic. Cardiovascular: Rate and Rhythm: Normal rate and regular rhythm. Heart sounds: Normal heart sounds. No murmur heard. Pulmonary: Effort: Pulmonary effort is normal. Breath sounds: Normal breath sounds. Chest: Chest wall: Tenderness present. Musculoskeletal: General: No swelling. Right lower leg: No edema. Left lower leg: No edema. Neurological: Mental Status: He is alert. Psychiatric: Mood and Affect: Mood normal. Thought Content: Thought content normal. Judgment: Judgment normal. Assessment/Plan Diagnoses and all orders for this visit: Chest discomfort Costochondritis, acute - celecoxib (CeleBREX) 200 MG capsule; Take 1 capsule (200 mg) by mouth Daily Pain of right thigh - gabapentin (Neurontin) 300 MG capsule; Take 1 capsule (300 mg) by mouth at bedtime Lumbar herniated disc - gabapentin (Neurontin) 300 MG capsule; Take 1 capsule (300 mg) by mouth at bedtime Right lumbar radiculopathy - gabapentin (Neurontin) 300 MG capsule; Take 1 capsule (300 mg) by mouth at bedtime Follow up in about 2 months (around 09/11/2024) for Routine F/U. documented in this encounter [facility] 06-29-2024 Telephone encounter Note ALPRAZolam (Xanax) 1 MG tablet to [facility] 06-29-2024 Miscellaneous Notes ALPRAZolam (Xanax) 1 MG tablet to [facility] documented in this encounter [facility] 06-26-2024 History of Present illness Narrative Images from the original note were not included. M HPI Follow-up Additional comments: Admitted [facility] 06/21/24 dx: syncope,suspected cva .hypotension discharged home 06/22/24 no med changes made Med Refill Additional comments: Gabapentin.meclizine-- [facility] Last edited by Odalys Villagomez LPN on 06/26/2024 9:36 AM. Subjective Patient ID: Hakeem Escobedo is a 78 y.o. male who presents for Follow-up (Admitted [facility] 06/21/24 dx: syncope,suspected cva .hypotension discharged home 06/22/24 no med changes made) and Med Refill (Gabapentin.meclizine-- [facility]). Flowsheet Row Patient Outreach from 06/23/[address] [facility] with Karol WednesdayELAINE Hospital Information ED, Hospital or Shelter Facility Discharge? Hospital Patient has been contacted within two business days of discharge Yes Discharge Date 06/22/24 Discharged To: Home Setting Discharge Hospital [facility] Engagement Call Start Time 1330 Admission [...] BY MOUTH DAILY 100 tablet 3 HYDROcodone-acetaminophen ([place]) 10-325 MG tablet Take 1 tablet by [...] at bedtime. 90 capsule 3 [DISCONTINUED] HYDROcodone-acetaminophen ([place]) 10-325 MG tablet Take 1 tablet by [...] the patient today. Allergies Allergen Reactions Pneumococcal 20-Danay Conj Vacc Swelling Pneumococcal Vac Polyvalent Swelling [...] on stage 3a chronic kidney disease (HCC) ([facility]) 09/20/2020 Antral ulcer 2016 Anxiety Arthritis CAD (coronary artery disease) ([facility]) Colon polyp 2019 Confusion 09/16/2020 Constipation 09/28/2017 COVID-19 09/20/2020 Diverticulosis 2019 Gastritis 2019 Hiatal hernia 2019 History of gastric ulcer Hypertension ([facility]) Injury to penis 06/06/2021 Traumatic rhabdomyolysis ([facility]) 09/20/2020 Tubulovillous adenoma polyp of colon 2019 Past Surgical History: Procedure Laterality Date CATARACT EXTRACTION Right 01/2021 CERVICAL DISCECTOMY 08/16/2017 C4-C5 COLONOSCOPY 2010 COLONOSCOPY 01/27/2019 Colonoscopy & EGD-[facility]ura COLONOSCOPY W/ POLYPECTOMY 08/2020 [facility] (tubulovillous adenoma) CORONARY ANGIOPLASTY WITH STENT PLACEMENT 2013 x 2 COVID 09/16/2020 hospitalization - [place], [...] for Test/Lab Review. documented in this encounter [facility] 06-22-2024 Telephone encounter Note OARRS reviewed, Rx sent into patient's pharmacy. [facility] 06-22-2024 Miscellaneous Notes OARRS reviewed, Rx sent into patient's pharmacy. documented in this encounter [facility] 05-29-2024 Telephone encounter Note Patient is still having issues with his throat. He saw yvette last week and his throat is still is pain and it hurts to swallow. They wondered if something could be called into [facility]. [facility] 05-29-2024 Miscellaneous Notes Patient is still having issues with his throat. He saw yvette last week and his throat is still is pain and it hurts to swallow. They [facility] documented in this encounter [facility] 05-24-2024 History of Present illness Narrative Images from the original note were not included. Subjective Patient ID: Hakeem Escobedo is a 78 y.o. male who presents for Allergic Reaction. Pt is here due to having reaction from him getting a covid vacc He did get a flu and covid vacc at the same time this happened on Wednesday, he is now having sore throat it is swollen , could not swallow, hurts to swallow Pt is also having dizziness Pt did go to the ER for this on 05/19 for weakness Pain This is a chronic problem. The current episode started more than 1 year ago. The problem occurs intermittently. The problem is unchanged. The pain occurs in the context of an injury. The pain is present in the right lower leg, right shoulder, right hip, right clavicle and right arm. The pain is severe. The symptoms are aggravated by any movement, exercise and inactivity. Associated symptoms include stiffness. Past treatments include acetaminophen and prescription narcotic. The treatment provided significant relief. The swelling is presently diffuse. Current Outpatient Medications on File Prior to [...] TABLET BY MOUTH DAILY 100 tablet 3 gabapentin (Neurontin) 300 MG capsule Take 1 capsule (300 mg) by mouth at bedtime. 90 capsule 3 HYDROcodone-acetaminophen ([place]) 10-325 MG tablet Take 1 tablet by mouth every 6 (six) hours if needed for severe pain 120 tablet 0 Linzess 72 MCG capsule magnesium 250 MG tablet 1 (one) time each day at the same time. meclizine (Antivert) 25 MG tablet Take 25 mg by mouth 3 (three) times a day as needed nitroglycerin (Nitrostat) 0.[address] [...] EVERY NIGHT BEFORE BEDTIME 270 tablet 3 zolpidem (Ambien) 10 MG tablet Take 1 tablet (10 mg) by mouth at bedtime 30 tablet 2 [DISCONTINUED] azithromycin (Zithromax) 250 MG tablet Take 2 tablets (500 mg) by mouth Daily for 1 day, THEN 1 tablet (250 mg) Daily for 4 days. 6 tablet 0 [DISCONTINUED] methylPREDNISolone (Medrol Dospak) 4 MG tablets Follow schedule on package instructions 21 tablet 0 No current facility-administered medications on file prior to visit. I have reviewed and reconciled the history and medication list with the patient today. Allergies Allergen Reactions Pneumococcal 20-Danay Conj Vacc Swelling Pneumococcal Vac Polyvalent Swelling Social History Tobacco Use Smoking status: Former Current packs/day: 0.00 Types: Cigarettes Quit date: 09/13/2000 Years since quittin.7 Smokeless tobacco: Never Tobacco comments: Quit smoking [...] 2016 Anxiety Arthritis CAD (coronary artery disease) ([facility]) Colon polyp 2019 Confusion 09/16/2020 Constipation 09/28/2017 COVID-19 09/20/2020 Diverticulosis 2019 Gastritis 2019 Hiatal hernia 2019 History of gastric ulcer Hypertension ([facility]/HCC) Injury to penis 06/06/2021 Traumatic rhabdomyolysis ([facility]/HCC) 09/20/2020 Tubulovillous adenoma polyp of colon 2019 Past Surgical History: Procedure Laterality Date CATARACT EXTRACTION Right 01/2021 CERVICAL DISCECTOMY 08/16/2017 C4-C5 COLONOSCOPY 2010 COLONOSCOPY 01/27/2019 Colonoscopy & EGD-Aura COLONOSCOPY W/ POLYPECTOMY 08/2020 [facility] (tubulovillous adenoma) CORONARY ANGIOPLASTY WITH STENT PLACEMENT 2014 x 2 COVID 09/16/2020 hospitalization - [place], Covid, Rhabdomyolysis EGD 05/2016 with biopsy EGD 08/2020 with Bx-[facility] HERNIA REPAIR 1979 bilateral inguinal hernia repair LEG SURGERY right leg trauma repair NECK SURGERY ORIF HIP FRACTURE Right leg/hi[ VASECTOMY 1980 Visit Vitals Smoking Status Former Review of Systems Constitutional: Negative. HENT: Trouble swallowing after COVID shot Eyes: Negative. Respiratory: Negative. Cardiovascular: Negative. Gastrointestinal: Negative. Genitourinary: Negative. Musculoskeletal: Positive for stiffness. Skin: Negative. Neurological: Negative. Psychiatric/Behavioral: Negative. Objective Physical Exam Vitals reviewed. Constitutional: Appearance: Normal appearance. HENT: Head: Normocephalic. Mouth/Throat: Mouth: Mucous membranes are moist. Pharynx: Oropharynx is clear. Neck: Comments: paroditis Cardiovascular: Rate and Rhythm: Normal rate and regular rhythm. Pulmonary: Effort: Pulmonary effort is normal. Breath sounds: Normal breath sounds. Musculoskeletal: General: Swelling and tenderness present. Right lower leg: Edema present. Skin: General: Skin is warm and dry. Neurological: General: No focal deficit present. Mental Status: He is alert and oriented to person, place, and time. Psychiatric: Mood and Affect: Mood normal. Behavior: Behavior normal. Thought Content: Thought content normal. Judgment: Judgment normal. Assessment/Plan Diagnoses and all orders for this visit: Parotiditis - amoxicillin (Amoxil) 875 MG tablet; Take 1 tablet (875 mg) by mouth in the morning and 1 tablet (875 mg) before bedtime. Do all this for 10 days. - methylPREDNISolone (Medrol Dospak) 4 MG tablets; Follow schedule on package instructions If swallowing difficulty does not improve, come back to the office for further treatment.Patient is to begin taking the antibiotic today as prescribed. Patient is to take the whole prescription even if there is an improvement in symptoms. Encouraged patient to drink plenty of water, and get plenty of rest. Patient is to gargle with salt water or mouthwash of choice a few times a day. Avoid Motrin while on the steroid. Steroids can cause GI bleeding, Monitor stools for any black as this may be a signs of a bleed. If this should occur, stop steroid and call office. Cervical stenosis of spinal canal - HYDROcodone-acetaminophen ([place]) 10-325 MG tablet; Take 1 tablet by mouth every 6 (six) hours if needed for severe pain Medication choice and dosage is appropriate for patient's current medical conditions. Patient will continue to be required to be seen in our office at least every three months for monitoring. At each follow up visit I will reassess the patient's need for the medication. Patient is to have this medication prescribed only through this office. Failure to follow the rules and regulations will result in tapering and discontinuation of medications if applicable. Patient verbalized understanding. OARRS Report was reviewed for this patient. No follow-ups on file. documented in this encounter [facility] 05-10-2024 History of Present illness Narrative Images from the original note were not included. HPI Follow-up Additional comments: PAIN MED Chest Pain Additional comments: FOLLOW UP Last edited by Odalys Villagomez LPN on 05/10/2024 10:04 AM. Subjective Patient ID: Hakeem Escobedo is a 78 y.o. male who presents for Follow-up (PAIN MED) and Chest Pain (FOLLOW UP). Subjective Patient here for follow-up of elevated blood pressure. He is not exercising and is adherent to a low-salt diet. Blood pressure is well controlled at home. Cardiac symptoms: none. Patient denies: chest pain, dyspnea, and irregular heart beat. Subjective Hakeem Escobedo is a 77 y.o. male who returns for follow-up of chronic pain. Analgesia: Average daily pain of 8 Activity Level: Home activities: limited due to pain PT STATES HE STILL OCC GETS THE LEFT SIDED CHEST PAIN--STATES IT SEEMS TO START AFTER HE HAS BEEN COUGHING--STATES HE HAS HAD INCREASED (PRODUCTIVE)COUGH SINCE THIS HAS STARTED Chest Pain Pertinent negatives include no palpitations or shortness of breath. Hypertension Associated symptoms include chest pain. Pertinent negatives include no palpitations or shortness of breath. Current Outpatient Medications on File Prior to [...] TABLET BY MOUTH DAILY 100 tablet 3 gabapentin (Neurontin) 300 MG capsule Take 1 capsule (300 mg) by mouth at bedtime. 90 capsule 3 HYDROcodone-acetaminophen ([place]) 10-325 MG tablet Take 1 tablet by [...] EVERY NIGHT BEFORE BEDTIME 270 tablet 3 zolpidem (Ambien) 10 MG tablet Take 1 tablet (10 mg) by mouth at bedtime 30 tablet 2 No current facility-administered medications on file prior to visit. Allergies Allergen Reactions Pneumococcal 20-Danay Conj Vacc Swelling Pneumococcal Vac Polyvalent Swelling Social History Tobacco Use Smoking status: Former Current packs/day: 0.00 Types: Cigarettes Quit date: 09/13/2000 Years since quittin.6 Smokeless tobacco: Never Tobacco comments: Quit smoking [...] Right leg/hi[ VASECTOMY 1980 Visit Vitals BP 134/82 Pulse 56 Ht 5' 6 Wt 187 lb SpO2 98% BMI 30.18 kg/m Smoking Status Former BSA 1.99 m Review of Systems Respiratory: Negative for shortness of breath. Cardiovascular: Positive for chest pain. Negative for palpitations. Objective Physical Exam Constitutional: General: He is not in acute distress. Appearance: He is normal weight. He is not ill-appearing. HENT: Head: Normocephalic. Cardiovascular: Rate and Rhythm: Normal rate and regular rhythm. Heart sounds: Normal heart sounds. No murmur heard. Pulmonary: Effort: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
--- NOTE | 2024-09-10 15:35 | ECG_ITS ---
[facility] Test Date: 2024-09-10 Pat Name: TAJ RING Department: Room: - Gender: Male [employer]: : 1945 Requested By: KELLEN BALBUENA Order Number: [id number] Reading MD: MADISON FENTON Measurements Intervals [place] Rate: 65 P: 15 IA: 178 QRS: -53 QRSD: 98 T: 42 QT: 388 QTc: 399 Interpretive Statements 1100 Sinus rhythm 2440 Incomplete right bundle branch block 2630 Left anterior fascicular block 3114 Cannot rule out anterior myocardial infarction, age undetermined 8102 Low QRS voltage in chest leads 9150 abnormal ECG Electronically Signed On 09-11-2024 7:00:14 EST by MADISON FENTON
--- NOTE | 2024-09-10 15:35 | XR_ITS ---
[address] [address] Patient Name: TAJ RING MRN: [id number] date: 1945 Sex: M Assigned Patient Location: ER Current Patient Location: ER Accession/Order Number: [id number] Exam Date: 09/10/2024 15:43 Report Date: 09/10/2024 17:09 At the request of: CATALINA STONE Procedure: XR chest 1V Exam: Radiographs: XR chest 1V Reason for exam: WEAKNESS Comparison: Chest x-ray dated 06/21/2024 XR/XR chest 1V IMPRESSION: Unremarkable chest x-ray. Electronically authenticated by: CAROLYNE LAY Date: 09/10/2024 17:09
--- NOTE | 2024-09-10 16:03 | ED.DIZZY1 ---
HPI - Dizziness General Chief Complaint: Dizziness Stated Complaint: Weakness Time Seen by Provider: 09/10/24 15:35 Source: other Source comment: EMS Mode of arrival: ambulance History of Present Illness HPI Narrative: 78-year-old male with a history of dizziness and vertigo presenting here with chief complaint of dizziness. Patient states he had a recent COVID vaccination. He states when he receives these vaccinations he has the symptoms where he does become dizzy. Patient is alert oriented at this time. He has a states he felt dizzy. He took Antivert earlier today which did not help alleviate his symptoms. Patient has no focal neurological deficits. Related Data Home Medications ?Medication ?Instructions ?Recorded ?Confirmed allopurinol 100 mg tablet 100 mg PO DAILY 06/21/24 06/21/24 carvedilol 25 mg tablet 25 mg PO BID 06/21/24 06/21/24 colchicine 0.6 mg capsule 0.6 mg PO MOWEFR@06/21/24 06/21/24 gabapentin 300 mg capsule 300 mg PO .QHS 06/21/24 06/21/24 hydrocodone 10 mg-acetaminophen 1 tab PO Q6H PRN pain 06/21/24 06/21/24 325 mg tablet meclizine 25 mg tablet 25 mg PO TID PRN dizziness 06/21/24 06/21/24 simvastatin 40 mg tablet 40 mg PO .QHS 06/21/24 06/21/24 sucralfate 1 gram tablet 1 g PO TID 06/21/24 06/21/24 zolpidem 10 mg tablet 10 mg PO .QHS 06/21/24 06/22/24 Previous Rx's ?Medication ?Instructions ?Recorded pantoprazole 40 mg tablet,delayed 40 mg PO DAILY #30 tabs 10/24/23 release (Protonix) Allergies Allergy/AdvReac Type Severity Reaction Status Date / Time No Known Drug Allergies Allergy Verified 06/21/24 10:17 Review of Systems ROS Narrative All Systems are negative except as noted/marked.All systems reviewed and otherwise negative [facility] Medical History (Updated 09/10/24 @ 18:36 by Faina Smith) Syncope ?R55 - Syncope and collapse (ICD-10) CKD stage 3a, GFR 45-59 ml/min ?N18.31 - Chronic kidney disease, stage 3a (ICD-10) Seizure disorder ?G40.909 - Epilepsy, unspecified, not intractable, without status epilepticus (ICD-10) CAD (coronary artery disease) ?I25.10 - Atherosclerotic heart disease of [place] coronary artery without angina pectoris (ICD-10) HTN (hypertension) ?I10 - Essential (primary) hypertension (ICD-10) Surgical History (Updated 06/07/24 @ 11:00 by Faina Lamar) H/O heart artery stent ?Z95.5 - Presence of coronary angioplasty implant and graft (ICD-10) Social History (Updated 06/21/24 @ 14:21 by Shaikh Erick MD) Within the past year, how often did you have a drink containing alcohol: never Within the past year, how often did you have six or more drinks on one occasion: never Score interpretation: A score less than 4 is consistent with normal alcohol consumption. Smoking status: Former smoker Non-prescribed substance use: denies use Previous occupational history: Retired from [employer]. Highest level of school completed/degree received: 12th grade, no diploma Do you want help with school or training: No Are you now , , , , never or living with a partner: In a typical week, how many times do you talk on the telephone with family, friends, or neighbors: 3 or more times per week How often do you get together with friends or relatives: 3 or more times per week How often do you attend restorationism or mandaen services: 1-3 times per year Do you belong to any clubs or organizations such as restorationism groups unions, fraternal or athletic groups, or school groups: no Total score: 1 Score interpretation: A score of less than or equal to 1 indicates the most socially isolated. Little interest or pleasure in doing things: not at all Feeling down, depressed, or hopeless: not at all Feel stressed/tense/nervous/anxious/difficulty sleeping: not at all Due to disability, difficulty making decisions: No Do you think of yourself as: straight/heterosexual Gender Identity: male Exam Narrative Exam Narrative: Nurses note and vital signs reviewed and patient is not hypoxic. General: The patient appears well and in no apparent distress. Patient is resting comfortably on cart. Skin: Warm, dry, no pallor noted. There is no rash noted. Head: Normocephalic, atraumatic Eye: no nystagmus . Normal conjunctiva, no drainage, EOMI. PERRL Ears, Nose, Mouth, and Throat: oral mucosa is moist. Nares patent. Mouth without vesicles. Ear canals patent. Tm's without Erythema Cardiovascular: Regular Rate and Rhythm Respiratory: Patient is in no distress, no accessory muscle use, lungs are clear to auscultation, no wheezing, rales or rhonchi Back: non-tender, no CVA tenderness bilaterally to percussion. GI: Normal bowel sounds, no tenderness to palpation, no masses appreciated. No rebound, guarding, or rigidity noted. Musculoskeletal: The patient has no evidence of calf tenderness, no pitting edema, symmetrical pulses noted bilaterally Neurological: A&O x4, normal speech Psychiatric: Cooperative Constitutional Vital Signs, click to edit/add: Last Vital Signs Temp 97.6 F 09/10/24 15:30 Pulse 62 09/10/24 15:30 Resp 20 09/10/24 15:30 BP 132/82 09/10/24 15:30 Pulse Ox 95 09/10/24 15:30 O2 Del Method Room Air 09/10/24 15:30 Course Vital Signs Vital signs: Vital Signs Temperature 97.6 F 09/10/24 15:30 Pulse Rate 62 09/10/24 15:30 Respiratory Rate 20 09/10/24 15:30 Blood Pressure 132/82 09/10/24 15:30 Pulse Oximetry 95 09/10/24 15:30 Oxygen Delivery Method Room Air 09/10/24 15:30 Temperature 97.6 F 09/10/24 15:30 Pulse Rate 62 09/10/24 15:30 Respiratory Rate 20 09/10/24 15:30 Blood Pressure 132/82 09/10/24 15:30 Pulse Oximetry 95 09/10/24 15:30 Oxygen Delivery Method Room Air 09/10/24 15:30 MDM - Dizziness MDM Narrative Medical decision making narrative: 78-year-old male with a history of dizziness and vertigo presenting here with chief complaint of dizziness. Patient states he had a recent COVID vaccination. He states when he receives these vaccinations he has the symptoms where he does become dizzy. Patient is alert oriented at this time. He has a states he felt dizzy. He took Antivert earlier today which did not help alleviate his symptoms. Patient has no focal neurological deficits. Upon arrival to the emergency room, IV was established CBC CMP troponin and chest x-ray were all obtained. They are negative. Patient was given a liter of fluids. Dizziness has improved he feels much better after fluids were given. Believe he was somewhat dehydrated causing his dizziness. He will also prophylactically given 1 meclizine here. CBC CMP were reviewed and unremarkable. Patient's feels much better and wants to get discharged to home. Son will take him home. He is at bedside at this time. Differential Diagnosis Differential diagnosis: Likely benign paroxysmal positional vertigo and orthostatic hypotension Medical Records Attestation: I reviewed the patient's medical records. Lab Data Attestation: I reviewed the patient's lab results. Labs: Lab Results 09/10/24 09/10/24 Range/Units 16:03 18:00 WBC 7.1 (4.0-11.0) 10^3/uL RBC 4.69 L (4.70-6.10) 10^6/uL Hgb 13.9 L (14.0-18.0) g/dL Hct 43.0 (42.0-54.0) % MCV 91.7 (80.0-94.0) fL MCH 29.6 (25.9-34.0) pg MCHC 32.3 (29.9-35.2) g/dL RDW 13.2 (11.0-15.0) % Plt Count 161 (150-450) 10^3/uL MPV 10.0 (9.5-13.5) fL Neut % (Auto) 63.2 (43.0-75.0) % Lymph % (Auto) 26.4 (20.5-60.0) % [place] % (Auto) 6.0 (1.7-12.0) % Eos % (Auto) 2.7 (0.9-7.0) % Baso % (Auto) 0.6 (0.2-2.0) % Neut # (Auto) 4.5 (1.4-6.5) 10^3/uL Lymph # (Auto) 1.9 (1.2-3.8) 10^3/uL [place] # (Auto) 0.4 (0.3-0.8) 10^3/uL Eos # (Auto) 0.2 (0.0-0.7) 10^3/uL Baso # (Auto) 0.0 (0.0-0.1) 10^3/uL Abs Immat Gran (auto) 0.08 H (0.00-0.03) 10^3/uL Imm/Tot Granulo (auto) 1.1 H (0.0-0.5) % PT 10.9 (9.0-11.6) sec INR 1.03 APTT 27.1 (22.3-36.2) sec Sodium 139 (136-145) mmol/L Potassium 4.8 (3.5-5.1) mmol/L Chloride 108 H (98-107) mmol/L Carbon Dioxide 27.1 (21.0-32.0) mmol/L Anion Gap 8.7 BUN 28.0 H (7.0-18.0) mg/dL Creatinine 1.98 H (0.70-1.30) mg/dL Est GFR ( Amer) 40 L (>=60 mL/min/1.73m^2) Est GFR (Non-Af Amer) 33 L (>=60 mL/min/1.73m^2) BUN/Creatinine Ratio 14.1 Glucose 116 H (74-106) mg/dL Calcium 8.7 (8.5-10.1) mg/dL Total Bilirubin 0.7 (0.2-1.0) mg/dL AST 18 (15-37) U/L ALT 41 (16-63) U/L Alkaline Phosphatase 116 (46-116) U/L Troponin I High Sens 5.2 (4.0-76.1) pg/mL NT-Pro-B Natriuret Pep 99.0 (<=1800.0) pg/mL Total Protein 6.6 (6.4-8.2) g/dL Albumin 3.2 L (3.4-5.0) g/dL Globulin 3.4 g/dL Albumin/Globulin Ratio 0.9 Urine Color Lt. yellow (YELLOW) Urine Clarity Clear (CLEAR) Urine pH 6.0 (5.0-9.0) Ur Specific [place] <=1.005 A (1.005-1.025) Urine Protein Negative (NEG/TRACE) mg/dL Urine Glucose (UA) Negative (NEGATIVE) mg/dL Urine Ketones Negative (NEGATIVE) mg/dL Urine Occult Blood Negative (NEGATIVE) Urine Nitrite Negative (NEGATIVE) Urine Bilirubin Negative (NEGATIVE) Urine Urobilinogen 0.2 (0.2-1.0) EU/dL Ur Leukocyte Esterase Negative (NEGATIVE) Imaging Data Chest x-ray: Radiologist's impression: ITS Impressions Chest X-Ray 09/10/24 15:35 IMPRESSION: Unremarkable chest x-ray. Electronically authenticated by: CAROLYNE LAY Date: 09/10/2024 17:09 ECG Data Interpretation: 1541 sinus rhythm with a rate of 65 bpm NE interval 178 ms QRS duration 98 ms incomplete right bundle branch block is noted similar compared to previous EKG 2023. No acute STEMI Discharge Plan Discharge Chief Complaint: Dizziness Clinical Impression: Dizziness Patient Disposition: Home, Self-Care Time of Disposition Decision: 18:36 Condition: Good Prescriptions / Home Meds: No Action pantoprazole [Protonix] 40 mg tablet,delayed release (DR/EC) 40 mg PO DAILY Qty: 30 0RF gabapentin 300 mg capsule 300 mg PO .QHS colchicine 0.6 mg capsule 0.6 mg PO MOWEFR@09 sucralfate 1 gram tablet 1 g PO TID simvastatin 40 mg tablet 40 mg PO .QHS allopurinol 100 mg tablet 100 mg PO DAILY carvedilol 25 mg tablet 25 mg PO BID meclizine 25 mg tablet 25 mg PO TID PRN (Reason: dizziness) hydrocodone-acetaminophen 10-325 mg tablet 1 tab PO Q6H PRN (Reason: pain) zolpidem 10 mg tablet 10 mg PO .QHS Print Language: Afghan Instructions: Dizziness (ED) Referrals: KELLEN BALBUENA [Primary Care Provider] - 1 week
[2024-09-10 16:39] LABS: INR 1.03; Partial Thromboplastin Time 27.1 sec (22.3-36.2); Prothrombin Time 10.9 sec (9.0-11.6)
[2024-09-10 16:41] LABS: Basophils Percent Auto 0.6 % (0.2-2.0); Eosinophils Absolute Auto 0.2 10^3/uL (0.0-0.7); Eosinophils Percent Auto 2.7 % (0.9-7.0); Hemoglobin 13.9 g/dL (14.0-18.0); Immature Granulocytes Abs Auto 0.08 10^3/uL (0.00-0.03); Immature Granulocytes Pct Auto 1.1 % (0.0-0.5); Lymphocytes Absolute Auto 1.9 10^3/uL (1.2-3.8); Lymphocytes Percent Auto 26.4 % (20.5-60.0); Mean Corpuscular HGB Conc 32.3 g/dL (29.9-35.2); Mean Corpuscular Hemoglobin 29.6 pg (25.9-34.0); Mean Corpuscular Volume 91.7 fL (80.0-94.0); Monocytes Absolute Auto 0.4 10^3/uL (0.3-0.8); Neutrophils Absolute Auto 4.5 10^3/uL (1.4-6.5); Neutrophils Percent Auto 63.2 % (43.0-75.0); Platelet Count 161 10^3/uL (150-450); Red Blood Count 4.69 10^6/uL (4.70-6.10); Red Cell Distribution Width 13.2 % (11.0-15.0); White Blood Count 7.1 10^3/uL (4.0-11.0)
[2024-09-10 17:01] LABS: Alanine Aminotransferase 41 U/L (16-63); Albumin Globulin Ratio 0.9; Albumin Level 3.2 g/dL (3.4-5.0); Alkaline Phosphatase 116 U/L (46-116); Anion Gap 8.7; Aspartate Amino Transferase 18 U/L (15-37); BUN Creatinine Ratio 14.1; Bilirubin Total 0.7 mg/dL (0.2-1.0); Calcium 8.7 mg/dL (8.5-10.1); Carbon Dioxide 27.1 mmol/L (21.0-32.0); Chloride 108 mmol/L (98-107); Estimated GFR (African America 40 (>=60 mL/min/1.73m^2); Estimated GFR (Non-African Ame 33 (>=60 mL/min/1.73m^2); Globulin 3.4 g/dL; Glucose 116 mg/dL (74-106); Potassium 4.8 mmol/L (3.5-5.1); Sodium 139 mmol/L (136-145); Total Protein 6.6 g/dL (6.4-8.2)
[2024-09-10 17:06] LABS: Troponin I High Sensitivity 5.2 pg/mL (4.0-76.1)
[2024-09-10] MEDS: 0.9 % SODIUM CHLORIDE 1,000 ML 1000 ML IV (17:12)
[2024-09-10 18:20] LABS: Bilirubin Urine NEGATIVE (NEGATIVE); Blood Urine NEGATIVE (NEGATIVE); Clarity Urine CLEAR (CLEAR); Color Urine LT. YELLOW (YELLOW); Glucose Urine UA NEGATIVE (NEGATIVE); Ketones Urine NEGATIVE (NEGATIVE); Leukocyte Esterase Urine NEGATIVE (NEGATIVE); Nitrite Urine NEGATIVE (NEGATIVE); Protein Urine NEGATIVE (NEG/TRACE); Specific Gravity Urine <=1.005 (1.005-1.025); Urobilinogen Urine 0.2 EU/dL (0.2-1.0)
[2024-09-10] MEDS: MECLIZINE HCL 12.5 MG TABLET 25 MG PO (18:46)
[2024-09-10 18:49] LABS: Bacteria Urine NONE SEEN #/HPF (NONE SEEN); Mucus Urine NONE SEEN (NONE SEEN); RBC Urine 0-2 #/HPF (0-2); WBC Urine NONE SEEN #/HPF (NONE SEEN)
[2024-09-10 18:50] LABS: Cast Seen? NONE SEEN #/LPF (NONE SEEN); Crystals Seen? None Seen #/HPF (None Seen); Squamous Epithelial Cell Urine NONE SEEN #/LPF (NONE/RARE); Urine Culture Indicated NO
== END 2024-09-10 18:53 | disposition home or self-care (01) ==
PROVIDERS: Physician Assistant; Emergency Provider Emergency Medicine Emergency Medical Services; PCP Internal Medicine
DX: R42 Dizziness and giddiness (principal); R53.1 Weakness; Z79.899 Other long term (current) drug therapy; Z95.5 Presence of coronary angioplasty implant and graft; Z87.891 Personal history of nicotine dependence
CPT/HCPCS: 36415; 71045; 80053; 81001; 83880; 84484; 85025; 85610; 85730; 93005; 96360; 99285

== ENCOUNTER 2024-10-18 08:27 | Outpatient (RCR) | payer MEDICARE, MEDICAID, SELFPAY | END 2024-11-18 10:55 | disposition home or self-care (01) | LOC: PT 08:27 | PROVIDERS: PCP Internal Medicine; Visit Provider Internal Medicine | DX: M48.062 Spinal stenosis, lumbar region with neurogenic claudication (principal); R26.9 Unspecified abnormalities of gait and mobility | CPT/HCPCS: 97112; 97161 ==

== ENCOUNTER 2024-10-18 08:29 | Outpatient (RCR) | payer MEDICARE, MEDICAID, SELFPAY | END 2024-10-19 07:11 | disposition home or self-care (01) | LOC: ST 08:29 | PROVIDERS: PCP Internal Medicine; Visit Provider Internal Medicine | DX: I63.9 Cerebral infarction, unspecified (principal); I69.222 Dysarthria following other nontraumatic intracranial hemorrhage; R49.0 Dysphonia | CPT/HCPCS: 92524 ==

== ENCOUNTER 2025-05-26 11:18 | Inpatient (IN) | payer MEDICARE, MEDICAID, SELFPAY ==
--- OUTSIDE RECORDS SUMMARY | 2025-05-24 07:35 | XMS_ITS | Encounter Summary ---
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 negative D-Dimer result and Wells score. A negative result doesn't exclude the possibility of DIC. The test should be repeated along with other diagnostic tests if the patient's symptoms persist or worsen. Blood Venous blood / Unknown Venipuncture / Unknown 05/24/2025 7:44 AM EDT 05/24/2025 7:48 AM EDT us Randolph Hernandez MD LAB BLOOD ORDERABLES Final Resul t Performing Organization Address [facility] de Phone Number [address] [place] [address], [place] * (ABNORMAL) Magnesium (05/24/2025 7:44 AM EDT) MAGNESIUM 1.7(L) 1.8 - 2.6 mg/dL 05/24/2025 8:02 AM EDT [facility] Blood Venous blood / Unknown Venipuncture / Unknown 05/24/2025 7:44 AM EDT 05/24/2025 7:48 AM EDT Randolph Hernandez MD LAB BLOOD ORDERABLES Final Resul t Performing Organization Address City/[facility]/ZIP Co de Phone Number [address] [place] [address], [place] * Lactate w/ Reflex (05/24/2025 7:44 AM EDT) LACTATE W/REFLEX 0.7 0.4 - 2.0 mmol/L 05/24/2025 8:04 AM EDT [facility] Blood Venous blood / Unknown Venipuncture / Unknown 05/24/2025 7:44 AM EDT 05/24/2025 7:48 AM EDT Narrative [facility] - 05/24/2025 8:04 AM EDT Result did not trigger repeat Lactate, re-order if needed. us Randolph Hernandez MD LAB BLOOD ORDERABLES Final Resul t Performing Organization Address [facility] Co de Phone Number [address] [place] [address], [place] * (ABNORMAL) Basic Metabolic Panel (05/24/2025 7:44 AM EDT) SODIUM 142 134 - 146 mmol/L 05/24/2025 8:02 AM EDT [facility] POTASSIUM 3.8 3.5 - 5.0 mmol/L 05/24/2025 8:02 AM EDT [facility] CHLORIDE 107 98 - 109 mmol/L 05/24/2025 8:02 AM EDT [facility] CARBON DIOXIDE 26 22 - 32 mmol/L 05/24/2025 8:02 AM EDT [facility] ANION GAP 9 5 - 15 mmol/L 05/24/2025 8:02 AM EDT [facility] BLOOD UREA NITROGEN 21 5 - 27 mg/dL 05/24/2025 8:02 AM EDT [facility] CREATININE 1.52(H) 0.70 - 1.20 mg/dL 05/24/2025 8:02 AM EDT [facility] Comment:METHOD TRACEABLE TO IDIA STANDARD GLUCOSE 121(H) 65 - 99 mg/dL 05/24/2025 8:02 AM EDT [facility] CALCIUM 8.5 8.5 - 10.5 mg/dL 05/24/2025 8:02 AM EDT [facility] EGFR Non-Race Dependent 47(L) >=60 ml/min/1.7 3sq.m 05/24/2025 8:02 AM EDT [facility] Comment: eGFR not reported due to non-numeric value for Creatinine. Reported eGFR is based on the CKD-EPI 2020 equation that does not use a race coefficient. Blood Venous blood / Unknown Venipuncture / Unknown 05/24/2025 7:44 AM EDT 05/24/2025 7:48 AM EDT us Randolph Hernandez MD LAB BLOOD ORDERABLES Final Resul t Performing Organization Address City/[facility]/ZIP Co de Phone Number [address] [address], [place] * APTT (05/24/2025 7:44 AM EDT) APTT 29 26 - 37 sec 05/24/2025 8:08 AM EDT [facility] Blood Venous blood / Unknown Venipuncture / Unknown 05/24/2025 7:44 AM EDT 05/24/2025 7:48 AM EDT us Randolph Hernandez MD LAB BLOOD ORDERABLES Final Resul t [address] [address], [place] * Protime & INR (05/24/2025 7:44 AM EDT) PROTIME 12.3 9.8 - 13.2 sec 05/24/2025 8:08 AM EDT [facility] INR 1.1 0.9 - 1.2 05/24/2025 8:08 AM EDT [facility] Blood Venous blood / Unknown Venipuncture / Unknown 05/24/2025 7:44 AM EDT 05/24/2025 7:48 AM EDT us Randolph Hernandez MD LAB BLOOD ORDERABLES Final Resul t [facility] [address] [place] [address], * (ABNORMAL) CBC auto differential (05/24/2025 7:44 AM EDT) WBC 6.2 4 - 11 x10E9/L 05/24/2025 7:51 AM EDT [facility] RBC Count 4.63 4.1 - 5.7 X10E12/L 05/24/2025 7:51 AM EDT [facility] Hemoglobin 13.4 13 - 17 g/dL 05/24/2025 7:51 AM EDT [facility] Hematocrit 40.1 39 - 50 % 05/24/2025 7:51 AM EDT [facility] MCV 87 80 - 100 fL 05/24/2025 7:51 AM EDT [facility] MCH 29.0 27 - 34 pg 05/24/2025 7:51 AM EDT [facility] MCHC 33.4 32 - 36 g/dL 05/24/2025 7:51 AM EDT [facility] RDW 15.2(H) 11.5 - 15 % 05/24/2025 7:51 AM EDT [facility] Platelet Count 172 150 - 450 X10E9/L 05/24/2025 7:51 AM EDT [facility] MPV 7.1 7 - 12 fL 05/24/2025 7:51 AM EDT [facility] Neutrophils % 55.0 % 05/24/2025 7:51 AM EDT [facility] Lymphocytes % 32.6 % 05/24/2025 7:51 AM EDT [facility] Monocytes % 8.2 % 05/24/2025 7:51 AM EDT [facility] Eosinophils % 3.7 % 05/24/2025 7:51 AM EDT [facility] Basophils % 0.5 % 05/24/2025 7:51 AM EDT [facility] Neutrophils Absolute (A) 3.4 1.5 - 6.6 10*3/uL 05/24/2025 7:51 AM EDT [facility] Lymphocytes Absolute 2.0 1.0 - 3.5 10*3/uL 05/24/2025 7:51 AM EDT [facility] Monocytes Absolute 0.5 0.0 - 0.9 10*3/uL 05/24/2025 7:51 AM EDT [facility] Eosinophils Absolute 0.2 0.0 - 0.4 10*3/uL 05/24/2025 7:51 AM EDT [facility] Basophils Absolute 0.0 0.0 - 0.2 10*3/uL 05/24/2025 7:51 AM EDT [facility] Differential Type AUTOMATED DIFFERENTIAL 05/24/2025 7:51 AM EDT [facility] Blood Venous blood / Unknown Venipuncture / Unknown 05/24/2025 7:44 AM EDT 05/24/2025 7:48 AM EDT us Randolph Hernandez MD LAB BLOOD ORDERABLES Final Resul t [facility] [address] [facility] [place] [address], [place] * ECG 12 lead (05/24/2025 7:36 AM EDT) 05/24/2025 7:36 AM EDT us Randolph Hernandez MD ECG ORDERABLES Final Result TRACEMASTERVUE documented in this encounter Visit Diagnoses Diagnosis Orthostatic dizziness- Primary Chronic cough Cough documented in this encounter Administered Medications Inactive Administered Medications - up to 3 most recent administrations Medication Order MAR Action Action Date Dose Rate Site albuterol (PROVENTIL,VENTOLIN) nebulizer solution 2.5 mg 2.5 mg, nebulization, Once, On Rose Mary 05/24/25 at 1108, For 1 dose, Implement INPATIENT/ED Bronchodilator Clinical Practice Guidelines? Yes Given 05/24/2025 11:40 AM EDT 2.5 mg magnesium oxide (MAGOX) tablet 400 mg 400 mg, oral, Once, On Rose Mary 05/24/25 at 0814, For 1 dose Given 05/24/2025 8:37 AM EDT 400 mg morphine injection 2 mg 2 mg, intravenous, Once, On Rose Mary 05/24/25 at 0739, For 1 dose, Look-alike/sound-alike medication - verify indication for use. Given 05/24/2025 8:05 AM EDT 2 mg ondansetron (PF) (ZOFRAN) injection 4 mg 4 mg, intravenous, Once, On Rose Mary 05/24/25 at 0739, For 1 dose, Intravenous administration preferred to be given over 2-5 minutes. Given 05/24/2025 8:04 AM EDT 4 mg sodium chloride 0.9 % bolus 500 mL, intravenous, at 968 mL/hr, Administer over 31 Minutes, Once, On Rose Mary 05/24/25 at 0814, For 1 dose New Bag 05/24/2025 8:39 AM EDT 500 mL 968 mL/hr sodium chloride 0.9 % bolus 500 mL, intravenous, at 968 mL/hr, Administer over 31 Minutes, Once, On Rose Mary 05/24/25 at 0951, For 1 dose New Bag 05/24/2025 10:35 AM EDT 500 mL 968 mL/hr sodium chloride 0.9 % flush 3 mL 3 mL, intravenous, As needed, line care, before and after each intermittent use, Starting on Rose Mary 05/24/25 at 0737 sodium chloride 0.9 % flush 3 mL 3 mL, intravenous, Every 12 hours scheduled, First dose on Rose Mary 05/24/25 at 0900 documented in this encounter Active and Recently Administered Medications Times are shown in EDT. Scheduled Medication Order 05/22/2025 05/23/2025 05/24/2025 albuterol (PROVENTIL,VENTOLIN) nebulizer solution 2.5 mg (COMPLETED) 2.5 mg, nebulization, Once, On Rose Mary 05/24/25 at 1108, For 1 dose, Implement INPATIENT/ED Bronchodilator Clinical Practice Guidelines? Yes 1140 (Given - Provid er: Summer Krueger RCP) magnesium oxide (MAGOX) tablet 400 mg (COMPLETED) 400 mg, oral, Once, On Rose Mary 05/24/25 at 0814, For 1 dose 0837 (Given - Provid er: Sheldon Elizabeth RN) morphine injection 2 mg (COMPLETED) 2 mg, intravenous, Once, On Rose Mary 05/24/25 at 0739, For 1 dose, Look-alike/sound-alike medication - verify indication for use. 0805 (Given - Provid er: Sheldon Elizabeth RN) ondansetron (PF) (ZOFRAN) injection 4 mg (COMPLETED) 4 mg, intravenous, Once, On Rose Mary 05/24/25 at 0739, For 1 dose, Intravenous administration preferred to be given over 2-5 minutes. 0804 (Given - Provid er: Sheldon Elizabeth RN) sodium chloride 0.9 % bolus (COMPLETED) 500 mL, intravenous, at 968 mL/hr, Administer over 31 Minutes, Once, On Rose Mary 05/24/25 at 0814, For 1 dose 0839 (New Bag - Prov ider: Sheldon Elizabeth RN)0910 (Stop Bag - Provider: Sheldon Elizabeth RN) sodium chloride 0.9 % bolus (COMPLETED) 500 mL, intravenous, at 968 mL/hr, Administer over 31 Minutes, Once, On Rose Mary 05/24/25 at 0951, For 1 dose 1035 (New Bag - Prov ider: Sheldon Elizabeth RN)1106 (Stop Bag - Provider: Sheldon Elizabeth RN) sodium chloride 0.9 % flush 3 mL 3 mL, intravenous, Every 12 hours scheduled, First dose on Rose Mary 05/24/25 at 0900 0900 (Due) PRN Medication Order 05/22/2025 05/23/2025 05/24/2025 sodium chloride 0.9 % flush 3 mL 3 mL, intravenous, As needed, line care, before and after each intermittent use, Starting on Rose Mary 05/24/25 at 0737 documented in this encounter Additional Health Concerns Infection Onset Date Last Indicated Resolved Time Respiratory Rule-Out 05/24/2025 05/24/2025 025 9:29 AM EDT documented as of this encounter Care Teams Database Marketing Manager Relationship Specialty Start Date End Date Mono Knowles MD [address] [address] PCP - General 10/06/24 documented as of this encounter
[2025-05-26] VITALS (37 sets, daily range): BP systolic 125–157; BP diastolic 80–98; PULSE 56–68; TEMP 36.4–36.6; O2SAT 88–96; BMI 30.7; BMI 31.0
--- NOTE | 2025-05-26 11:21 | CT_ITS ---
The [address] [address] Patient Name: TAJ RING MRN: [id number] date: 1945 Sex: M Assigned Patient Location: ED.MAIN Current Patient Location: ED.MAIN Accession/Order Number: [id number] Exam Date: 05/26/2025 11:30 Report Date: 05/26/2025 12:03 At the request of: JAROD PENNINGTON MD Procedure: CT cervical spine wo con Unenhanced head CTstroke alert TECHNIQUE: Contiguous axial imaging of the head. The CT exam was performed using one or more the following dose reduction techniques: Automated exposure control, adjustment of the MA and/or Kv according to patient size, or use of the iterative reconstruction technique. COMPARISON: MRI the brain 06/21/2024 HISTORY: Continued leg weakness. Fell out of bed this morning. VENTRICLES: Within normal limits ATROPHY: None BRAIN PARENCHYMA: Adequate quintero-white matter differentiation identified. HEMORRHAGE: None HERNIATION: No mass effect or herniation INFARCTION: No recent vascular distribution infarction is seen. EXTRA-AXIAL FLUID COLLECTIONS None MIDBRAIN: Unremarkable CARITO: Unremarkable MEDULLA: Unremarkable SINUSES: Unremarkable ORBITS: Grossly unremarkable MASTOIDS: Unremarkable BONY STRUCTURES Intact ADDITIONAL FINDINGS: CT/CT stroke head/brain wo con IMPRESSION: No acute findings. Preliminary 11:47 AM 05/26/2025 CT Cervical Spine withoutcontrast TECHNIQUE: Axial imaging with 2-D and 3-D reconstruction. The CT exam was performed using one or more the following dose reduction techniques: Automated exposure control, adjustment of the MA and/or Kv according to patient size, or use of the iterative reconstruction technique. COMPARISON: None HISTORY: Dizziness. Fell. Leg weakness. POST SURGERY CHANGES: No hardware complication of C4-5 anterior plate and screw fixation. BONY ALIGNMENT: Adequate BONY SPINAL CANAL: Patent central bony canal FRACTURE: None BONY LESIONS: None SOFT TISSUES: Unremarkable DEGENERATIVE CHANGES: Moderate degeneration LUNG APICES: Unremarkable ADDITIONAL FINDINGS: IMPRESSION: No acute displaced fracture Impression dictated by: Jaime Hunter M.D. 05/26/2025 12:03 PM Dictation Location: [place] [address] Electronically authenticated by: [id number] Y Date: 05/26/2025 12:03
--- NOTE | 2025-05-26 11:21 | ECG_ITS ---
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
--- NOTE | 2025-05-26 11:30 | CT_ITS ---
The [address] [address] Patient Name: TAJ RING MRN: [id number] date: 1945 Sex: M Assigned Patient Location: ED.MAIN Current Patient Location: ED.MAIN Accession/Order Number: [id number] Exam Date: 05/26/2025 11:30 Report Date: 05/26/2025 12:03 At the request of: JAROD PENNINGTON MD Procedure: CT cervical spine wo con Unenhanced head CTstroke alert TECHNIQUE: Contiguous axial imaging of the head. The CT exam was performed using one or more the following dose reduction techniques: Automated exposure control, adjustment of the MA and/or Kv according to patient size, or use of the iterative reconstruction technique. COMPARISON: MRI the brain 06/21/2024 HISTORY: Continued leg weakness. Fell out of bed this morning. VENTRICLES: Within normal limits ATROPHY: None BRAIN PARENCHYMA: Adequate quintero-white matter differentiation identified. HEMORRHAGE: None HERNIATION: No mass effect or herniation INFARCTION: No recent vascular distribution infarction is seen. EXTRA-AXIAL FLUID COLLECTIONS None MIDBRAIN: Unremarkable CARITO: Unremarkable MEDULLA: Unremarkable SINUSES: Unremarkable ORBITS: Grossly unremarkable MASTOIDS: Unremarkable BONY STRUCTURES Intact ADDITIONAL FINDINGS: CT/CT cervical spine wo con IMPRESSION: No acute findings. Preliminary 11:47 AM 05/26/2025 CT Cervical Spine withoutcontrast TECHNIQUE: Axial imaging with 2-D and 3-D reconstruction. The CT exam was performed using one or more the following dose reduction techniques: Automated exposure control, adjustment of the MA and/or Kv according to patient size, or use of the iterative reconstruction technique. COMPARISON: None HISTORY: Dizziness. Fell. Leg weakness. POST SURGERY CHANGES: No hardware complication of C4-5 anterior plate and screw fixation. BONY ALIGNMENT: Adequate BONY SPINAL CANAL: Patent central bony canal FRACTURE: None BONY LESIONS: None SOFT TISSUES: Unremarkable DEGENERATIVE CHANGES: Moderate degeneration LUNG APICES: Unremarkable ADDITIONAL FINDINGS: IMPRESSION: No acute displaced fracture Impression dictated by: Jaime Hunter M.D. 05/26/2025 12:03 PM Dictation Location: [place] [address] Electronically authenticated by: [id number] Y Date: 05/26/2025 12:03
[2025-05-26 11:36] LABS: Hematocrit 44.2 % (42.0-54.0); Hemoglobin 14.4 g/dL (14.0-18.0); Immature Granulocytes Abs Auto 0.06 10^3/uL (0.00-0.03); Immature Granulocytes Pct Auto 0.8 % (0.0-0.5); Lymphocytes Absolute Auto 1.7 10^3/uL (1.2-3.8); Mean Corpuscular HGB Conc 32.6 g/dL (29.9-35.2); Mean Corpuscular Hemoglobin 29.4 pg (25.9-34.0); Mean Corpuscular Volume 90.2 fL (80.0-94.0); Platelet Count 170 10^3/uL (150-450); Red Blood Count 4.90 10^6/uL (4.70-6.10); White Blood Count 7.2 10^3/uL (4.0-11.0)
--- OUTSIDE RECORDS SUMMARY | 2025-05-26 11:40 | XMS_ITS | Encounter Summary ---
Author Organization [facility] Address [address] [place] [address] Care Team Providers Care Transportation Engineering Technician Name Role Phone Mono Knowles MD Unavailable [phone] Mono Knowles MD Primary Care Provider [phone] Ruth Johnston LPN Unavailable Encounter Details Date Type Department Care Team ([facility] Contact Info) Description 03/01/2025 Abstract [facility] [place] [facility] [address] [place] [phone] Mono Knowles MD 112 [facility] 110 [place] [address] Social History Tobacco Use Types Packs/Day Years Used Date Smoking Tobacco: Former Cigarettes Q uit: 09/13/2000 Smokeless Tobacco: Never Comments:Quit smoking 10 yea rs ago Alcohol Use Standard Drinks/Week Comments Never 0 (1 standard drink = 0.6 oz pur e alcohol) Caffeine 1-2 cups/day B1300 Health Literacy Answer Date Recor ded How often do you need to hav e someone help you when you read instructions, pamphlets, or other written material from your doctor or pharmacy? Sometimes 05/16/2024 Humiliation, Afraid, Rape, and Kick questionnair e Answer Date Recorded Within the last year, have y ou been afraid of your partner or ex-partner? No 06/04/2023 Within the last year, have y ou been humiliated or emotionally abused in other ways by your partner or ex-partner? No Within the last year, have y ou been kicked, hit, slapped, or otherwise physically hurt by your partner or ex-partner? No 06/04/2023 Within the last year, have y ou been raped or forced to have any kind of sexual activity by your partner or ex-partner? No 06/04/2023 Social Connection and Isolat ion Panel [NHANES] Answer Date Recorded In a typical week, how many times do you talk on the phone with family, friends, or neighbors? Once a week 06/04/2023 How often do you get togethe r with friends or relatives? Once a week 06/04/2023 How often do you attend chur ch or mandaen services? More than 4 times per year 06/04/2023 Do you belong to any clubs o r organizations such as restorationist groups, unions, fraternal or athletic groups, or school groups? No 06/04/2023 How often do you attend meet ings of the clubs or organizations you belong to? Never 06/04/2023 Are you , , di vorced, , never , or living with a partner? Living with partner 06/04/2023 AUDIT-C Answer Date Recorded Q1: How often do you have a drink containing alcohol? Never 06/04/2023 Q2: How many drinks containi ng alcohol do you have on a typical day when you are drinking? Patient does not drink Q3: How often do you have si x or more drinks on one occasion? Never 06/04/2023 Overall Financial Resource Strain (CARDIA) Answe r Date Recorded How hard is it for you to pa y for the very basics like food, housing, medical care, and heating? Not hard at all 06/04/2023 PHQ-2 Answer Date Recorded Patient Health Questionnaire-2 Score 0 02/28/2025 [facility] - Occupational Stress Questionnaire Answer Date Recorded Do you feel stress - tense, restless, nervous, or anxious, or unable to sleep at night because your mind is troubled all the time - these days? To some extent 06/04/2023 Exercise Vital Sign Answer Date Recorde d On average, how many days pe r week do you engage in moderate to strenuous exercise (like a brisk walk)? 3 days 06/04/2023 On average, how many minutes do you engage in exercise at this level? 10 min 06/04/2023 Hunger Vital Sign Answer Date Recorded Within the past 12 months, y ou worried that your food would run out before you got the money to buy more. Never true 06/04/20 23 Within the past 12 months, t he food you bought just didn't last and you didn't have money to get more. Never true 06/04/2023 PRAPARE - Transportation Answer Date Re corded In the past 12 months, has l ack of transportation kept you from medical appointments or from getting medications? No 05/15 In the past 12 months, has l ack of transportation kept you from meetings, work, or from getting things needed for daily living? No 06/04/2023 Housing Stability Vital Sign Answer Thaddeus e Recorded In the last 12 months, was t here a time when you were not able to pay the mortgage or rent on time? No 06/04/2023 In the last 12 months, how many places have you lived? 1 06/04/2023 In the last 12 months, was t here a time when you did not have a steady place to sleep or slept in a long-term (including now)? No 06/04/2023 Sex and Gender Information Value Date Recorded Sex Assigned at Not on file Legal Sex Male 6:55 PM EDT Gender Identity Not on file Sexual Orientation Not on file documented as of this encounter Plan of Treatment Upcoming Encounters Date Type Department Care Team (Late st Contact Info) Description 05/30/2025 11:30 AM EDT Office Visit [facility] [place] [facility] [address] [facility] [address] [place] [phone] Merry Ray NP [address] [place] [address] 06/06/2025 8:30 AM EDT Office Visit [facility] [place] [facility] [address] [place] [phone] Mono Knowles MD [address] [place] [address] documented as of this encounter Visit Diagnoses Not on filedocumented in this encounter Care Teams Transportation Engineering Technician Relationship Specialty Start Date End Date Mono Knowles MD [address] [facility] [address] [place] [address] PCP - Jonathan FLORES 09/13/21 Mono Knowles MD [address] [facility] [address] [place] [address] PCP - General Internal Medicine 03/01/23 Ruth Johnston LPN [address] [facility] [address] [place] [address] 11/28/24 05/09/25 documented as of this encounter
--- OUTSIDE RECORDS SUMMARY | 2025-05-26 11:40 | XMS_ITS | Encounter Summary ---
Author Organization [facility] Address [id number] [address] [place] [address] Care Team Providers Care Satellite Tv Technician Installer Name Role Phone Mono Knowles MD Primary Care Provider [phone] Reason for Visit * Reason Comments Med Refill Encounter Details Date Type Department Care Team (Late st Contact Info) Description 10/30/2020 Refill [facility] [address] [place] [phone] Danna Isabel, MINE INSPECTOR-LEVELER HELPER [address] [place] [address] Med Refill Social History Tobacco Use Types Packs/Day Years Used Date Smoking Tobacco: Former Cigarettes Q uit: 09/13/2011 Smokeless Tobacco: Never Alcohol Use Standard Drinks/Week Comments No 0 (1 standard drink = 0.6 oz pur e alcohol) Childcare Answer Date Recorded Childcare Unknown 02/22/2019 Employment Answer Date Recorded Employment Unknown 02/22/2019 Purpose - Life Answer Date Recorded Purpose and direction in life Unknown Sex and Gender Information Value Date Recorded Sex Assigned at Not on file Legal Sex Male 11:21 AM EDT Gender Identity Not on file Sexual Orientation Not on file documented as of this encounter Miscellaneous Notes * Telephone Encounter - Heather Solis RN - 10/30/2020 6:25 AM EST Lipid panel 08/02/2020 cmp 09/16/2020 Heather Solis RN 11/05/20 0849 * Telephone Encounter - Mary Hart - 10/30/2020 6:25 AM EST LMOM for the patient to call and schedule their next appointment with [facility]. * Telephone Encounter - LEONOR Benitez - 10/30/2020 6:25 AM EST I dont see results from the labs 08/02. documented in this encounter Plan of Treatment Not on file documented as of this encounter Visit Diagnoses Diagnosis Mixed hyperlipidemia documented in this encounter Additional Health Concerns Infection Onset Date Last Indicated Resolved Time Respiratory Rule-Out 09/14/2024 09/14/2024 025 12:48 PM EST Respiratory Rule-Out 10/06/2024 10/06/2024 025 3:53 PM EST Respiratory Rule-Out 05/24/2025 05/24/2025 025 9:29 AM EDT documented as of this encounter Care Teams Satellite Tv Technician Installer Relationship Specialty Start Date End Date Mono Knowles MD [address] [facility], [address] [phone] PCP - General 10/06/24 documented as of this encounter
--- OUTSIDE RECORDS SUMMARY | 2025-05-26 11:40 | XMS_ITS | Encounter Summary ---
Author Organization [facility] Address [address] [place] [address] Care Team Providers Care Director Trust Name Role Phone Mono Knowles MD Unavailable Mono Knowles MD Primary Care Provider Encounter Details Date Type Department Care Team ([facility] Contact Info) Description 05/25/2025 Telephone [facility] Tucker Blair [address] [place] [address] Ruth Johnston LPN [address] [facility] [address] [place] [address] Social History Tobacco Use Types Packs/Day Years [...] 06/04/2023 How often do you attend chur or church services? More than 4 times per year 06/04/2023 Do you belong to any clubs o r organizations such as yazdanism groups, unions, fraternal or athletic groups, or [...] Date Recorded Patient Health Questionnaire-2 Score 0 03/07/2025 [facility] of Occupat ional Health - Occupational Stress [...] place to sleep or slept in a prison (including now)? No 06/04/2023 Sex and Gender Information Value Date Recorded Sex Assigned at Not on file Legal Sex Male 6:55 PM EDT Gender Identity Not on file Sexual Orientation Not on file documented as of this encounter Miscellaneous Notes * Telephone Encounter - BAIRON VALDEZ - 05/25/2025 10:17 AM EDT Peace states they went to [place] ER and they told them his potassium was low and they would call in some potassium bill to [facility]. Nothing was sent. I called for the ER report. documented in this encounter Plan of Treatment Upcoming Encounters Date Type Department Care Team (Late st Contact Info) Description 05/30/2025 11:30 AM EDT Office Visit [facility] [place] [address] [place] [address] Merry Ray NP [address] [place] [address] 06/06/2025 8:30 AM EDT Office Visit [facility] [place] [address] [facility] [address] [place] [address] Mono Knowles MD [address] [facility] [address] [place] [address] documented as of this encounter Visit Diagnoses Not on filedocumented in this encounter Care Teams Director Trust Relationship Specialty Start Date End Date Mono Knowles MD [address] [facility] [address] [place] [address] PCP - Jonathan FLORES 09/13/21 Mono Knowles MD [address] [facility] [address] [place] [address] PCP - General Internal Medicine 03/01/23 documented as of this encounter
--- OUTSIDE RECORDS SUMMARY | 2025-05-26 11:40 | XMS_ITS | Encounter Summary ---
Author Organization [facility] Address [address] [place] [address] Care Team Providers Care Architectural Job Captain Name Role Phone Mono Knowles MD Unavailable [phone] Mono Knowles MD Primary Care Provider [phone] Ruth Johnston LPN Unavailable Encounter Details Date Type Department Care Team ([facility] st Contact Info) Description 12/08/2024 Abstract [facility] [place] [facility] 112 [facility] 110 [place] [address] Mono Knowles MD [address] [facility] 110 [place] [address] Social History Tobacco Use Types Packs/Day Years [...] often do you attend chur ch or anabaptist services? More than 4 times per year 06/04/2023 Do you belong to any clubs o r organizations such as congregation groups, unions, fraternal or athletic groups, or [...] Date Recorded Patient Health Questionnaire-2 Score 0 12/06/2024 [facility] of Occupat ional Health - Occupational Stress [...] place to sleep or slept in a residential (including now)? No 06/04/2023 Sex and Gender [...] Visit [facility] [place] [address] [facility] [address] [place] [address] Merry Ray NP [address] [place] [address] 06/06/2025 8:30 AM EDT Office Visit [facility] [place] Zhnage [address] [place] [address] Mono Knowles MD [address] [place] [address] documented as of this encounter Visit Diagnoses Not on filedocumented in this encounter Care Teams Architectural Job Captain Relationship Specialty Start Date End Date Mono Knowles MD [address] [facility] [address] [place] [address] PCP - Jonathan FLORES 09/13/21 Mono Knowles MD [address] [facility] 110 [place] [address] PCP - General Internal Medicine 03/01/23 Ruth Johnston LPN [address] [facility] [address] [place] [address] 11/28/24 05/09/25 documented as of this encounter
--- OUTSIDE RECORDS SUMMARY | 2025-05-26 11:40 | XMS_ITS | Encounter Summary ---
Author Organization [facility] Address [address] [place] [address] Care Team Providers Care Police Judge Name Role Phone Mono Knowles MD Unavailable [phone] Mono Knowles MD Primary Care Provider [phone] Reason for Visit * Reason Onset Date Comments Med Refill 05/15/2025 Encounter Details Date Type Department Care Team ([facility] st Contact Info) Description 05/15/2025 Telephone [facility] [place] [facility] 112 [facility] 110 [place] [phone] Mono Knowles MD 112 [facility] 110 [place] [address] Med Refill Social History Tobacco Use Types [...] often do you attend chur ch or yarsanism services? More than 4 times per year 06/04/2023 Do you belong to any clubs o r organizations such as jew groups, unions, fraternal or athletic groups, or [...] Recorded Patient Health Questionnaire-2 Score 0 03/07/2025 [facility] of Occupat ional Health - Occupational Stress [...] place to sleep or slept in a long term (including now)? No 06/04/2023 Sex and Gender Information Value Date Recorded Sex Assigned at Not on file Legal Sex Male 6:55 PM EDT Gender Identity Not on file Sexual Orientation Not on file documented as of this encounter Miscellaneous Notes * Telephone Encounter - Zee Alvarez - 05/15/2025 9:48 AM EDT celecoxib (CeleBREX) 200 MG capsule [place] documented in this encounter Plan of Treatment Upcoming Encounters Date Type Department Care Team (Late st Contact Info) Description 05/30/2025 11:30 AM EDT Office Visit [facility] [place] [address] [place] [address] Merry Ray NP [address] [place] [address] 06/06/2025 8:30 AM EDT Office Visit [facility] [place] [address] [facility] [address] [place] [address] Mono Knowles MD [address] [facility] [address] [place] [address] documented as of this encounter Visit Diagnoses Diagnosis Costochondritis, acute documented in this encounter Care Teams Police Judge Relationship Specialty Start Date End Date Mono Knowles MD [address] [facility] [address] [place] [address] PCP - Jonathan FLORES 09/13/21 Mono Knowles MD [address] [facility] [address] [place] [address] PCP - General Internal Medicine 03/01/23 documented as of this encounter
--- OUTSIDE RECORDS SUMMARY | 2025-05-26 11:40 | XMS_ITS | Clinical Summary ---
Author Organization [facility] Address [address] [place] [address] Care Team Providers Care Superintendent Greens Name Role Phone Mono Knowles MD Unavailable [phone] Mono Knowles MD Primary Care Provider [phone] Allergies Active Allergy Reactions Criticality Noted Date Comments Pneumococcal 20-Roselyn Conj Vacc Swelling 2020 Pneumococcal Vac Polyvalent Swelling 04/07/20 21 Medications carvedilol (Coreg) 25 MG tablet Take 25 mg by mouth in the morning and 25 mg in the evening. 07/23/20 22 Active ondansetron (Zofran) 4 MG tablet Take 4 mg by mouth every 8 (eight) hours if needed. 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 Place 1 tablet (0.4 mg) under the tongue every 5 (five) minutes if needed for chest pain 90 tablet 12 11/21/19 25 026 Active gabapentin (Neurontin) 300 MG capsuleIndication s:Pain of right thigh,Lumbar herniated disc,Right lumbar radiculopathy Take 1 capsule (300 mg) by mouth at bedtime 100 capsule 3 12/29/19 25 026 Active simvastatin (Zocor) 40 MG tabletIndications :Atherosclerosis of eagle coronary artery of eagle heart without angina pectoris Take 1 tablet (40 mg) by mouth at bedtime 100 tablet 3 02/07/20 25 Active Colchicine 0.6 MG capsuleIndication s:Idiopathic chronic gout without tophus, unspecified site Take 0.6 mg by mouth See administration instructions Take one capsule by mouth once daily, every Wednesday, Wednesday and Wednesday. 30 capsule 2 02/13/20 25 Active meclizine (Antivert) 25 MG tabletIndications :Vertigo Take 1 tablet (25 mg) by mouth 3 (three) times a day as needed for dizziness 60 tablet 3 02/13/20 25 026 Active allopurinol (Zyloprim) 100 MG tabletIndications :Mixed hyperlipidemia Take 1 tablet (100 mg) by mouth Daily 100 tablet 3 02/28/20 25 Active zolpidem (Ambien) 10 MG tabletIndications :Chronic insomnia Take 1 tablet (10 mg) by mouth at bedtime 30 tablet 2 03/13/20 25 Active sucralfate (Carafate) 1 g tabletIndications :Gastroesophageal reflux disease with esophagitis without hemorrhage TAKE 1 TABLET BY MOUTH EVERY MORNING, ONCE IN THE EVENING AND ONCE BEFORE BEDTIME 270 tablet 3 03/14/20 25 Active HYDROcodone-aceta minophen (Avilla) 10-325 MG tabletIndications :Cervical stenosis of spinal canal Take 1 tablet by mouth every 6 (six) hours if needed for severe pain 120 tablet 05/09/20 25 025 Active ALPRAZolam (Xanax) 1 MG tabletIndications :Anxiety Take 1 tablet (1 mg) by mouth in the morning and 1 tablet (1 mg) before bedtime. 60 tablet 05/15/20 25 025 Active celecoxib (CeleBREX) 200 MG capsuleIndication s:Costochondritis , acute Take 1 capsule (200 mg) by mouth Daily 90 capsule 3 05/15/20 25 026 Active celecoxib (CeleBREX) 200 MG capsuleIndication s:Costochondritis , acute Take 1 capsule (200 mg) by mouth Daily 90 capsule 3 08/14/20 24 025 Disconti nued(Reo rder) HYDROcodone-aceta minophen (Avilla) 10-325 MG tabletIndications :Cervical stenosis of spinal canal Take 1 tablet by mouth every 6 (six) hours if needed for severe pain 120 tablet 04/10/20 25 025 Disconti nued(Reo rder) ALPRAZolam (Xanax) 1 MG tabletIndications :Anxiety Take 1 tablet (1 mg) by mouth in the morning and 1 tablet (1 mg) before bedtime. 60 tablet 04/11/20 25 025 Disconti nued(Reo rder) Active Problems Problem Noted Date Diagnosed Date Borderline abnormal TFTs 12/06/2024 Dizziness 10/06/2024 Cerebrovascular accident (CVA) 08/10/2024 Irritable bowel syndrome with constipation 10/27 Right lumbar radiculopathy 07/26/2023 History of myocardial infarct at age greater mira n 61 years 02/03/2023 Anxiety 01/19/2023 Arthritis of right hip 01/19/2023 Cervical stenosis of spinal canal 01/19/2023 Chronic gouty arthritis 01/19/2023 Chronic insomnia 01/19/2023 Gastritis 01/19/2023 Hiatal hernia 01/19/2023 Gastroesophageal reflux dise ase with esophagitis without hemorrhage 01/19/2023 Gout 01/19/2023 Hypocalcemia 01/19/2023 Lumbar herniated disc 01/19/2023 Obesity (BMI 30-39.9) 01/19/2023 Other chronic pain 01/19/2023 Pain of right thigh 01/19/2023 Stage 3b chronic kidney disease 01/19/2023 Duodenal diverticulum 09/18/2022 History of stomach ulcers 09/18/2022 Arthritis 09/18/2022 Benign prostatic hyperplasia without lower urinary tract symptoms 06/06/2021 Personal history of other diseases of the digest jeanette system 07/12/2020 History of colonic polyps 04/26/2019 Chronic postoperative pain 09/21/2016 Cervical osteoarthritis 12/27/2014 Hyperlipidemia 12/26/2013 Atherosclerosis of eagle co ronary artery of eagle heart with stable angina pectoris 12/26/2013 Stented coronary artery 09/22/2013 Overview (02/03/2023): VANGIE in mid LAd Cervical spondylosis without myelopathy 06/09/20 11 Benign essential hypertension 06/12/2010 Diverticulosis of colon 10/10/2008 Osteoarthrosis 10/10/2008 Resolved Problems Problem Noted Date Diagnosed Date Resolved Date Diverticulosis 09/18/2022 10/27/2023 Balanitis 06/06/2021 02/03/2023 Injury to penis 06/06/2021 02/03/2023 Acute renal failure superimp osed on stage 3a chronic kidney disease 09/20/2020 02/03/2023 COVID-19 09/20/2020 02/03/2023 Traumatic rhabdomyolysis 09/20/2020 Confusion 09/16/2020 02/03/2023 Spinal stenosis in cervical region 12/20/2018 10/27/2023 Constipation 09/28/2017 02/03/2023 Chest pain 01/23/2017 02/03/2023 Acid reflux 01/23/2017 02/03/2023 Myocardial infarction 09/13/20162022 Occlusive coronary artery disease 12/26/2013 10/27/2023 HTN (hypertension) 09/22/2013 Unstable angina 09/22/2013 10/27/2023 Overview (02/03/2023): Transfer from [facility] Encounters Date Type Department Care Team Description 05/25/2025 Telephone [facility] [address] [place] [address] Ruth Johnston LPN 05/15/2025 Telephone [facility] [address] [facility] [address] [place] [address] Mono Knowles MD Med Refill 05/11/2025 Refill [facility] [place] [facility] [address] [place] [address] Marylou Harris PA Anxiety 05/11/2025 Refill [facility] [address] [place] [address] Summer Kay MA Anxiety 05/09/2025 Patient Outreach [facility] [address] [place] [address] Ruth Johnston LPN 05/09/2025 Refill [facility] [place] [facility] [address] [place] [address] Mono Knowles MD Cervical stenosis of spinal canal 04/11/2025 Refill [facility] [place] [facility] [address] [address] [place] [address] Summer Kay MA Anxiety 04/10/2025 Refill [facility] [place] [facility] [address] [place] [address] Mono Knowles MD Cervical stenosis of spinal canal 03/19/2025 Abstract [facility] [place] [facility] [address] [address] [place] [address] Mono Knowles MD 03/14/2025 Telephone [facility] [place] [facility] [address] [place] [address] Marylou Harris PA 03/14/2025 Refill [facility] [address] [place] [address] Mono Knowles MD Gastroesophageal reflux disease with esophagitis without hemorrhage 03/13/2025 Refill [facility] [place] [facility] [address] [place] [address] Summer Kay MA Chronic insomnia; Anxiety; Cervical stenosis of spinal canal 03/07/2025 9:00 AM EDT Office Visit [facility] [place] [facility] [address] [place] [address] Mono Knowles MD Acute non-recurrent sinusitis, unspecified location (Primary Dx); Bronchospasm; Benign essential hypertension ; Cervical stenosis of spinal canal 03/07/2025 Bamboo flowsheet [facility] [place] [facility] [address] [place] [address] Mono Knowles MD 03/07/2025 Travel 03/01/2025 Abstract [facility] [place] [facility] 112 [facility] 110 [place] [address] Mono Knowles MD 02/28/2025 10:30 AM EDT Office Visit [facility] [place] [facility] 112 [facility] [address] [place] [address] Mono Knowles MD Acute non-recurrent sinusitis, unspecified location (Primary Dx); Bronchospasm; Chest pain, unspecified type 02/28/2025 Bamboo flowsheet [facility] [place] [facility] 112 [facility] [address] [place] [address] Mono Knowles MD 02/28/2025 Travel 02/27/2025 Refill [facility] [place] [address] [place] [address] Odalys Villagomez, INSULATION SUPERVISOR Mixed hyperlipidemia 02/23/2025 Telephone [facility] [place] [facility] 112 [facility] [address] [place] [address] Mono Knowles MD sick/cough from Last 3 Months Immunizations Immunization Administration Dates Next Due ABRYSVO - Respiratory syncyt ial virus (RSV), vaccine, bivalent, protein subunit RSV prefusion F, diluent reconstituted, 0.5 mL, PF 11/17/2023 Influenza, High Dose Seasona l, Preservative Free 05/17/2024,05/30/2020,06/14/2019,06/23 Influenza, High-dose Seasona l, Quadrivalent, Preservative Free 07/12/2023,06/17/2022,06/18/2021 Influenza, injectable, quadr ivalent, preservative free 10/04/2015 Influenza, seasonal, injecta ble, preservative free 09/09/2018 Influenza, seasonal, intrade rmal, preservative free 05/14/2016,07/15/2015 Pneumococcal Conjugate PCV 13 04/22/2015 Pneumococcal Polysaccharide PPSV23 01/31/2018 Tdap 11/28/2011 Zoster, Recombinant 12/22/2022,08/01/2020 Family History Medical History Relation Name Comments Heart disease Father Hypertension Father Cancer Maternal Grandfather Cancer Maternal Grandmother brain tumor Mother Relation Name Status Comments Father Maternal Grandfather Maternal Grandmother Mother Other Spouse Social History Tobacco Use Types Packs/Day Years Used Date Smoking Tobacco: Former Cigarettes Q uit: 09/13/2000 Smokeless Tobacco: Never Tobacco Cessation:Counseling Given: Not Answered Comments:Quit smoking 10 years ago Alcohol Use Standard Drinks/Week Comments Never [...] often do you attend chur ch or restorationism services? More than 4 times per year 06/04/2023 Do you belong to any clubs o r organizations such as mandaeism groups, unions, fraternal or athletic groups, or [...] Recorded Patient Health Questionnaire-2 Score 0 03/07/2025 [facility] of Occupat ional Health - Occupational Stress [...] place to sleep or slept in a [facility] (including now)? No 06/04/2023 Sex and Gender Information Value Date Recorded Sex Assigned at Not on file Legal Sex Male 6:55 PM EDT Gender Identity Not on file Sexual Orientation Not on file Last Filed Vital Signs Vital Sign Reading Time Taken Comments Blood Pressure 128/70 03/07/2025 8:46 AM EDT Pulse 54 03/07/2025 8:46 AM EDT Temperature - - Respiratory Rate 16 02/28/2025 10:40 AM EDT Oxygen Saturation 97% 03/07/2025 8:46 AM EDT Inhaled Oxygen Concentration - - Weight 87.5 kg (193 lb) 03/07/2025 8:46 AM EDT Height 167.6 cm (5' 6 ) 03/07/2025 8:46 AM EDT Body Mass Index 31.15 03/07/2025 8:46 AM EDT Plan of Treatment Upcoming Encounters Date Type Department Care Team (Late st Contact Info) Description 05/30/2025 11:30 AM EDT Office Visit [facility] [place] [facility] [address] [facility] [address] [place] [address] Merry Ray NP [address] [facility] [address] [place] [address] 06/06/2025 8:30 AM EDT Office Visit [facility] [place] [facility] [address] [facility] [address] [place] [address] Mono Knowles MD [address] [facility] [address] [place] [address] Health Maintenance Due Date Last Done Comments Influenza Vaccine (#1) 2025 4, 07/12/2023, 06/17/2022, Additional history exists Pneumococcal Vaccine: 65+ Years Completed 8, 04/22/2015 Insurance [employer] [place] Care Teams Superintendent Greens Relationship Specialty Start Date End Date Mono Knowles MD [address] [facility] 110 [place] [address] PCP - Jonathan FLORES 09/13/21 Mono Knowles MD [address] [facility] 110 [place] [address] PCP - General Internal Medicine 03/01/23
--- OUTSIDE RECORDS SUMMARY | 2025-05-26 11:40 | XMS_ITS | Encounter Summary ---
Author Organization [employer] Address [id number] [address] [place] [address] Care Team Providers Care Sports Apparel Internship Name Role Phone Mono Knowles MD Primary Care Provider [phone] Reason for Visit * Reason Comments Med Refill Encounter Details Date Type Department Care Team (Late st Contact Info) Description 05/19/2023 Refill [facility] [address] [place] [phone] Naresh Miranda, VIOLIN REPAIRER-FIELD BROOMER [address] [place] [address] Med Refill Social History Tobacco Use Types [...] got money to buy more. Never True 09/01/2022 Within the past 12 months th e food we bought just didn't last and we didn't have money to get more. Never True 09/01/2022 Purpose - Life Answer Date Recorded Purpose and direction in life Unknown Sex and Gender Information Value Date Recorded Sex Assigned at Not on file Legal Sex Male 11:21 AM EDT Gender Identity Not on file Sexual Orientation Not on file documented as of this encounter Miscellaneous Notes * Telephone Encounter - Indiana Burleson RN - 05/19/2023 6:25 AM EDT Sent to pharmacy as: carvediloL 25 mg tablet (COREG) E-Prescribing Status: Receipt confirmed by pharmacy (05/14/2023 11:26 AM EDT) documented in this encounter Plan of Treatment Not on file documented as of this encounter Visit Diagnoses Not on filedocumented in this encounter Additional Health Concerns Infection Onset Date Last Indicated Resolved Time Respiratory Rule-Out 09/14/2024 09/14/2024 025 12:48 PM EST Respiratory Rule-Out 10/06/2024 10/06/2024 025 3:53 PM EST Respiratory Rule-Out 05/24/2025 05/24/2025 025 9:29 AM EDT documented as of this encounter Care Teams Sports Apparel Internship Relationship Specialty Start Date End Date Mono Knowles MD [address] [facility] 110 [place] [address] PCP - General 10/06/24 documented as of this encounter
--- OUTSIDE RECORDS SUMMARY | 2025-05-26 11:40 | XMS_ITS | Encounter Summary ---
Author Organization [employer] Address [id number] [address] [place] [address] Care Team Providers Care Subgrade Roller Operator Name Role Phone Mono Knowles MD Primary Care Provider [phone] Reason for Visit * Reason Comments Med Refill Encounter Details Date Type Department Care Team (Late st Contact Info) Description 12/21/2022 Refill [facility] [address] [place] [phone] Jonas Butcher DO [address] [place], [place] [id number] Social History Tobacco Use Types Packs/Day Years [...] as of this encounter Plan of Treatment Not on file documented as of this encounter Visit Diagnoses Not on filedocumented in this encounter Additional Health Concerns Infection Onset Date Last Indicated Resolved Time Respiratory Rule-Out 09/14/2024 09/14/2024 025 12:48 PM EST Respiratory Rule-Out 10/06/2024 10/06/2024 025 3:53 PM EST Respiratory Rule-Out 05/24/2025 05/24/2025 025 9:29 AM EDT documented as of this encounter Care Teams Subgrade Roller Operator Relationship Specialty Start Date End Date Mono Knowles MD [address] [facility] [address] [place] [address] PCP - General 10/06/24 documented as of this encounter
--- OUTSIDE RECORDS SUMMARY | 2025-05-26 11:40 | XMS_ITS | Encounter Summary ---
Author Organization [facility] Address [address] [facility] [place] [address] Care Team Providers Care Manager Business Development Hospice Name Role Phone Mono Knowles MD Unavailable [phone] Marylou Harris Primary Care Provider [phone] Mono Knowles MD Primary Care Provider [phone] Summer Velazquez RN Unavailable [phone] Ruth Johnston LPN Unavailable Encounter Details Date Type Department Care Team (Late Contact Info) Description 01/12/2023 Orders Only [facility] [place] [facility] [address] [place] [id number] Mara Lincoln LPN [address] [place] [address] Social History Tobacco Use Types Packs/Day Years Used Date Smoking Tobacco: Never Assessed Sex and Gender Information Value Date Recorded Sex Assigned at Not on file Legal Sex Male 6:55 PM EDT Gender Identity Not on file Sexual Orientation Not on file documented as of this encounter Plan of Treatment Upcoming Encounters Date Type Department Care Team (Late Contact Info) Description 05/30/2025 11:30 AM EDT Office Visit [facility] [place] [facility] [address] [place] [address] Merry Ray, DIA [address] [place] [address] 06/06/2025 8:30 AM EDT Office Visit [facility] [place] [facility] [address] [facility] [address] [place] [address] Mono Knowles MD [address] [facility] [address] [place] [address] documented as of this encounter Visit Diagnoses Not on filedocumented in this encounter Care Teams Manager Business Development Hospice Relationship Specialty Start Date End Date Mono Knowles MD [address] [facility] [address] [place] [address] PCP - Jonathan FLORES 09/13/21 Marylou Harris PA [address] [facility] [address] [place] [address] PCP - General Family Medicine 01/25/23 02/28/23 Mono Knowles MD [address] [facility] [address] [place] [address] PCP - General Internal Medicine 03/01/23 Summer Velazquez, JOAN [address] [place] [address] Clinical Advocate Family Medicine 10/20/24 11/28/24 Ruth Johnston LPN [address] [facility] [address] [place] [address] 11/28/24 05/09/25 documented as of this encounter
--- OUTSIDE RECORDS SUMMARY | 2025-05-26 11:40 | XMS_ITS | Encounter Summary ---
Author Organization [facility] Address [address] [place] [address] Care Team Providers Care Rag Baler Name Role Phone Mono Knowles MD Unavailable [phone] Mono Knowles MD Primary Care Provider [phone] Reason for Visit * Reason Onset Date Comments Med Refill 05/11/2025 Encounter Details Date Type Department Care Team (Late st Contact Info) Description 05/11/2025 Refill [facility] [place] [facility] [address] [facility] [address] [place] [phone] Summer Kay MA Anxiety Social History Tobacco Use Types Packs/Day Years [...] How often do you attend chur or quaker services? More than 4 times per year 06/04/2023 Do you belong to any clubs o r organizations such as gnosticist groups, unions, fraternal or athletic groups, or [...] Recorded Patient Health Questionnaire-2 Score 0 03/07/2025 [facility] - Occupational Stress Questionnaire Answer Date [...] place to sleep or slept in a jail (including now)? No 06/04/2023 Sex and Gender Information Value Date Recorded Sex Assigned at Not on file Legal Sex Male 6:55 PM EDT Gender Identity Not on file Sexual Orientation Not on file documented as of this encounter Miscellaneous Notes * Telephone Encounter - [place]IA Gardner - 05/15/2025 8:47 AM EDT OARRS reviewed, Rx sent into patient's pharmacy. documented in this encounter Plan of Treatment Upcoming Encounters Date Type Department Care Team (Late st Contact Info) Description 05/30/2025 11:30 AM EDT Office Visit [facility] [place] [facility] [address] [facility] [address] [place] [address] Merry Ray NP [address] [place] [id number] 06/06/2025 8:30 AM EDT Office Visit [facility] [place] [facility] [address] [place] [address] Mono Knowles MD [address] [facility] [address] [place] [address] documented as of this encounter Visit Diagnoses Diagnosis Anxiety Anxiety state, unspecified documented in this encounter Care Teams Rag Baler Relationship Specialty Start Date End Date Mono Knowles MD [address] [facility] [address] [place] [address] PCP - Jonathan FLORES 09/13/21 Mono Knowles MD [address] [facility] [address] [place] [address] PCP - General Internal Medicine 03/01/23 documented as of this encounter
--- OUTSIDE RECORDS SUMMARY | 2025-05-26 11:40 | XMS_ITS | Encounter Summary ---
Author Organization [facility] Address [id number] [address] [place] [address] Care Team Providers Care Tmr Teacher Name Role Phone Mono Knowles MD Primary Care Provider [phone] Encounter Details Date Type Department Care Team (Late st Contact Info) Description 09/21/2022 Telephone [facility] [address] [place] [phone] Deloris Davila RMA Social History Tobacco Use Types Packs/Day Years [...] on file Sexual Orientation Not on file COVID-19 Exposure Response Date Recorded In the last month, have you been in contact with someone who was confirmed or suspected to have Coronavirus / COVID-19? No / Unsure 09/18/2022 9:03 AM EST documented as of this encounter Miscellaneous Notes * Telephone Encounter - SHERI Yu - 09/21/2022 12:01 PM EST He has reconsidered the procedure & will proceed with both EGD & colonoscopy pt. coming in 09/22/22 for a sample of [facility] on for 10/19/2022 Cristel SHERI Davila ===View-only below this line=== ----- Message ----- From: Jonas Butcher DO Sent: 09/21/2022 9:16 AM EST To: SHERI Yu Subject: RE: He needs the colonoscopy due to polyp history Thanks ----- Message ----- From: SHERI Yu Sent: 09/21/2022 9:11 AM EST To: Jonas Butcher DO, SHERI Jones, * Subject: RE: He needs the colonoscopy due to polyp history I called the patient and also the emergency contact...Peace their VM's are not set up. I will continue to call the patient to express your recommendation of both EGD & colonoscopy to be done on 10/19/2022 ----- Message ----- From: Jonas Butcher DO Sent: 09/19/2022 6:23 AM EST To: SHERI Yu Subject: He needs the colonoscopy due to polyp history ----- Message ----- From: SHERI Yu Sent: 09/18/2022 4:21 PM EST To: Jonas Butcher DO See message below I return pt. call pertaining to cancelling the colonoscopy ----- Message ----- From: Leia Reyes CMA Sent: 09/18/2022 3:31 PM EST To: SHERI Yu, SHERI Jones ----- Message ----- From: Leia Reyes CMA Sent: 09/18/2022 2:47 PM EST To: SHERI Jones, I just tagged you in a phone message from the of this patient. They left a message stating that he wants to cancel the colonoscopy and only have the EGD. Can you please return the call? Thanks Leia documented in this encounter Plan of Treatment [...] documented as of this encounter Care Teams Tmr Teacher Relationship Specialty Start Date End Date Mono Knowles MD [address] [facility] [address] [place] [address] PCP - General 10/06/24 documented as of this encounter
--- OUTSIDE RECORDS SUMMARY | 2025-05-26 11:40 | XMS_ITS | CCD ---
Author Organization [facility] Care Team Providers Care Outpatient Phlebotomist Name Role Phone DR MONO KNOWLES Attending Unavailable ESHA, DR FOREMAN Primary Care Unavailable ESHA, DR FOREMAN Admitting Unavailable Mono Knowles MD Unavailable [phone] Mono Knowles MD Primary Care Provider Mono Knowles MD Primary Care Provider Mono Knowles MD Primary Care Provider Summer Velazquez RN Unavailable [phone] Mono Knowles MD Primary Care Provider Preston HENRY, Ruth Unavailable Unavailable MONO KNOWLES B Referring Unavailable ESHA MONO B Primary Care Unavailable ESHA, MONO B Primary Care Unavailable JOMAR SCHWARTZ Attending Unavailable JOMAR SCHWARTZ Attending Unavailable FLETCHRE SCHWARTZE A Referring Unavailable KNOWLES, MONO B Primary Care Unavailable KNOWLES, MONO B Primary Care Unavailable JOMAR SCHWARTZ Attending Unavailable ROBERT CURRY Admitting Unavailable KNOWLES, MONO B Referring Unavailable KNOWLES, MONO B Primary Care Unavailable KNOWLES, MONO B Referring Unavailable KNOWLES, MONO B Primary Care Unavailable KNOWLES, MONO B Primary Care Unavailable CAROLYNE MCINTYRE Attending Unavailable ESHA MONO B Primary Care Unavailable LOU HONG Attending Unavailable KIMBERLEE CRUZ Admitting Unavailable ESHA MONO B Primary Care Unavailable CAROLYNE MCINTYRE Attending Unavailable Johnston JOURNEYMAN LINEMAN, Ruth Unavailable MONO KNOWLES Attending Unavailable NORMA JIN Attending Unavailable ESHA MONO B Referring Unavailable DON FENTON Attending Unavailable ISABELLA VERA Referring Unavailable TYLER SANCHEZ Attending Unavailable MONO KNOWLES B Attending Unavailable MONO KNOWLES Attending Unavailable MONO KNOWLES Attending Unavailable MONO KNOWLES Attending Unavailable YVETTE THORNTON Attending Unavailable MONO KNOWLES Attending Unavailable MONO KNOWLES Attending Unavailable KE SANCHEZ Referring Unavailable MONO KNOWLES Attending Unavailable MONO KNOWLES Attending Unavailable KE SANCHEZ Referring Unavailable MONO KNOWLES Attending Unavailable MARYLOU LARRY Attending Unavailable Ruth Johnston LPN Unavailable Allergies Allergy Classification Reported Allergen(s) Allergy Type Date of Onset Reaction(s) Facility Unclassified (1 source) Pneumovax 23 Drug allergy (disorder) [facility] Repository (20 sources) Pneumococcal 20-Danay Conj Vacc Drug Intolerance 1 Swelling [facility] Healthcare Work Phone: (20 sources) Pneumococcal Vac Polyvalent Drug Allergy 1 Swelling [facility] Healthcare (12 sources) Streptococcus pneumoniae type 1 capsular polysaccharide [...] 23-DANAY PS VACCINE] Drug Allergy 1 Swelling [facility] Medications Current Medications Medication Drug Class(es) Dates Sig (Normalized) Sig (Original) acetaminophen 325 mg / HYDROcodone bitartrate 10 mg oral tablet (20 sources) Opioid Agonist Start: 04-27-2024 End: 06-08-2025 take 1 tablet by mouth every six hours for pain HYDROcodone-aceta minophen ([place]) 10-325 MG tablet Indications: Cervical stenosis of spinal canal Take 1 tablet by mouth every 6 (six) hours if needed for severe pain 120 tablet 05/09/2025 06/08/2025 Active Start: 10-06-2023 take 1 tablet by fatimah th every six hours for pain HYDROcodone-acetaminophen ([place]) 10-325 MG tablet Indications: Cervical stenosis of spinal canal Take 1 tablet by mouth every 6 (six) hours if needed for severe pain 120 tablet 0 10/06/2023 Active Start: 01-14-2022 HYDROcodone-ac etaminophen ([place]) 10-325 mg per tablet as needed. 01/14/2022 Active allopurinol 100 mg oral tablet (20 sources) Xanthine Oxidase Inhibitor Start: 02-27-2025 take 1 tablet by mouth once daily allopurinol (Zyloprim) 100 MG tablet Indications: Mixed hyperlipidemia Take 1 tablet (100 mg) by mouth Daily 100 tablet 3 02/27/2025 Active Start: 02-08-2024 take 1 tablet by fatimah th once daily allopurinol (Zyloprim) 100 MG tablet Indications: Mixed hyperlipidemia (CMS/HCC) TAKE ONE TABLET BY MOUTH DAILY 100 tablet 3 02/08/2024 Active ALPRAZolam 1 mg oral tablet (20 sources) Benzodiazepine Start: 05-15-2025 End: 06-14-2025 take 1 tablet by mouth in the morning ALPRAZolam (Xanax) 1 MG tablet Indications: Anxiety Take 1 tablet (1 mg) by mouth in the morning and 1 tablet (1 mg) before bedtime. 60 tablet 05/15/2025 06/14/2025 Active Start: 03-03-2024 End: 05-11-2025 take 1 tablet by mouth in the morning ALPRAZolam (Xanax) 1 MG tablet Indications: Anxiety Take 1 tablet (1 mg) by mouth in the morning and 1 tablet (1 mg) before bedtime. 60 tablet 04/11/2025 05/11/2025 Discontinued (Reorder) Start: 09-30-2023 take 1 tablet by fatimah [...] 2.5 MG tablet Indications: Benign essential hypertension Take 1 tablet (2.5 mg) [...] 10 days. 20 tablet 05/24/2024 06/03/2024 Active amoxicillin 875 mg / clavulanate 125 mg oral tablet (5 sources) Penicillin-class Antibacterial Start: 02-28-2025 End: 03-10-2025 take 1 tablet by mouth in the morning amoxicillin-clavu lanate (Augmentin) 875-125 MG tablet Indications: Acute non-recurrent sinusitis, unspecified location Take 1 tablet (875 mg) by mouth in the morning and 1 tablet (875 mg) before bedtime. Do all this for 10 days. 20 tablet 02/28/2025 03/10/2025 Active azithromycin 250 mg oral tablet (12 sources) Macrolide Antimicrobial Start: 02-23-2025 End: 03-07-2025 take 2 tablets by mouth once daily, then take 1 tablet by mouth once daily azithromycin (Zithromax) 250 MG tablet Indications: Upper respiratory tract infection, unspecified type Take 2 tablets (500 mg) by mouth Daily for 1 day, THEN 1 tablet (250 mg) Daily for 4 days. 6 tablet 02/23/2025 03/07/2025 Discontinued (Therapy completed) Start: 02-08-2025 End: 02-13-2025 take 2 tablets by mouth once daily, then take 1 tablet by mouth once daily azithromycin (Zithromax) 250 MG tablet Indications: Acute bronchitis, unspecified organism Take 2 tablets (500 mg) by mouth Daily for 1 day, THEN 1 tablet (250 mg) Daily for 4 days. 6 tablet 02/08/2025 02/12/2025 Discontinued (Therapy completed) Start: 11-02-2024 End: 11-07-2024 take 2 tablets by mouth once daily, then take 1 tablet by mouth once daily azithromycin (Zithromax) 250 MG tablet Indications: Acute bronchitis, unspecified organism Take 2 tablets (500 mg) by mouth Daily for 1 day, THEN 1 tablet (250 mg) Daily for 4 days. 6 tablet 11/02/2024 11/07/2024 Active Start: 08-31-2024 End: 09-05-2024 take 2 tablets [...] alpha-Adrenergic Antonia, beta-Adrenergic Antonia Start: 07-23-2022 End: 10-23-2024 take 1 tablet by mouth in the morning carvedilol (Coreg) 25 MG tablet Take 25 mg by mouth in the morning and 25 mg in the evening. 07/23/2022 Active Start: 07-23-2022 End: 10-28-2023 take 1 tablet by mouth every twelve hours carvediloL (COREG) 25 mg tablet TAKE ONE TABLET BY MOUTH EVERY 12 HOURS 180 tablet 0 09/07/2023 10/28/2023 Discontinued (Reorder) celecoxib 200 mg oral capsule (20 sources) Nonsteroidal Anti-inflammatory Drug Start: 08-14-2024 End: [...] tablet (20 sources) [id number] Platelet Inhibitor Start: 09-10-2019 End: 08-30-2024 take 1 tablet by mouth once daily clopidogrel (Plavix) 75 MG tablet Indications: Mixed hyperlipidemia Take 1 tablet (75 mg) by mouth Daily 100 tablet 3 08/30/2024 Active colchicine 0.6 mg oral capsule (20 sources) Start: 12-04-2024 End: 02-12-2025 take 1 capsule by mouth once Colchicine 0.6 MG capsule Indications: Idiopathic chronic gout without tophus, unspecified site Take 0.6 mg by mouth See administration instructions Take one capsule by mouth once daily, every Wednesday, Wednesday and Wednesday. 30 capsule 2 02/12/2025 Active Start: 10-23-2024 take 1 capsule by mouth once C olchicine 0.6 MG capsule Indications: Idiopathic chronic gout without tophus, unspecified site Take 0.6 mg by mouth See administration instructions Take one capsule by mouth once daily, every Wednesday, Wednesday and Wednesday. 30 capsule 10/23/2024 Active Start: 07-08-2022 take 1 capsule by mo ut in the morning colchicine (MITIGARE) 0.6 mg capsule Take 1 capsule (0.6 mg total) by mouth in the morning. 07/08/2022 Active Comirnaty 30 MCG/0.3ML suspension prefilled syringe (3 sources) Start: 06-21-2023 End: 10-27-2023 Comirnaty 30 MCG/0.3ML suspension prefilled syringe Start: 06-21-2023 Comirnaty 30 M CG/0.3ML suspension prefilled syringe dicyclomine hydrochloride 20 mg oral tablet (4 sources) Anticholinergic Start: 10-24-2023 take 1 tablet by mouth every six hours dicyclomine (BENTYL) 20 mg tablet Take 1 tablet (20 mg total) by mouth every 6 (six) hours. 10/24/2023 Active famotidine 20 mg oral tablet (4 sources) Histamine-2 Receptor Antagonist Start: 11-02-2023 take [...] (20 sources) Anti-epileptic Agent Start: 07-26-2023 End: 02-01-2026 take 1 capsule by mouth at bedtime gabapentin (Neurontin) 300 MG capsule Indications: Pain of right thigh , Lumbar herniated disc , Right lumbar radiculopathy Take 1 capsule (300 mg) by mouth at bedtime 100 capsule 3 12/28/2024 02/01/2026 Active linaclotide 0.072 mg oral capsule (20 [...] tablet (20 sources) Antiemetic Start: 05-18-2024 End: 02-12-2026 take 1 tablet by mouth three times daily as needed for dizziness meclizine (Antivert) 25 MG tablet Indications: Vertigo Take 1 tablet (25 mg) by mouth 3 (three) times a day as needed for dizziness 60 tablet 3 02/12/2025 02/12/2026 Active methylPREDNISolone 4 mg oral tablet (7 [...] sublingual tablet (20 sources) Nitrate Vasodilator Start: 11-20-2024 End: 11-20-2025 nitroglycerin (Nitrostat) 0.4 MG SL tablet Indications: 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 Place 1 tablet (0.4 mg) under the tongue every 5 (five) minutes if needed for chest pain 90 tablet 12 11/20/2024 11/20/2025 Active Start: 10-27-2023 End: 10-26-2024 nitroglycerin (Nitrostat) 0. 4 MG SL tablet Indications: 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 (CMS/HCC) Place 1 tablet (0.4 mg) under the tongue every 5 (five) minutes if needed for chest pain 90 tablet 12 10/27/2023 Active nystatin 471506 unt/ml oral suspension (4 sources) Polyene Antifungal Start: 08-22-2024 End: 08-30-2024 take 5 mL by mouth four times daily at bedtime nystatin (Mycostatin) [id number] UNIT/ML suspension Indications: Thrush SWISH AND SWALLOW FIVE MILLILITERS BY MOUTH FOUR TIMES A DAY FOR 14 DAYS (MORNING, NOON, EVENING, BEFORE BEDTIME) 280 mL 08/22/2024 08/30/2024 Discontinued (Therapy completed) Start: 06-01-2024 End: 06-15-2024 nystatin (Mycostatin) [id number] UNIT/ML suspension Indications: Thrush Take 5 mL [...] tablet (20 sources) Proton Pump Inhibitor Start: take 1 tablet by mouth once daily pantoprazole (ProtoNix) 40 MG EC tablet Indications: Benign essential hypertension Take 1 tablet (40 mg) by mouth Daily 100 tablet 3 09/25/2024 Active predniSONE 20 mg oral tablet (9 sources) Start: End: take 1 tablet by mouth once daily predniSONE (Deltasone) 20 MG tablet Indications: Bronchospasm Take 1 tablet (20 mg) by mouth Daily for 5 days 5 tablet 02/28/2025 03/07/2025 Discontinued (Therapy completed) Start: 02-08-2025 End: 02-13-2025 take 1 tablet by mouth once daily predniSONE (Deltasone) 20 MG tablet Indications: Acute bronchitis, unspecified organism Take 1 tablet (20 mg) by mouth Daily for 5 days 5 tablet 02/08/2025 02/12/2025 Discontinued (Therapy completed) Start: 11-02-2024 End: 11-07-2024 take 1 tablet by mouth once daily predniSONE (Deltasone) 20 MG tablet Indications: Acute bronchitis, unspecified organism Take 1 tablet (20 mg) by mouth Daily for 5 days 5 tablet 11/02/2024 11/07/2024 Active Start: 08-31-2024 End: 09-05-2024 take 1 tablet by mouth once daily predniSONE (Deltasone) 10 MG tablet Indications: Upper respiratory tract infection, unspecified type Take 1 tablet (10 mg) by mouth Daily for 5 days 5 tablet 08/31/2024 09/05/2024 Active simvastatin 40 mg oral tablet (20 sources) HMG-CoA Reductase Inhibitor Start: 02-06-2025 take 1 tablet by mouth at bedtime simvastatin (Zocor) 40 MG tablet Indications: Atherosclerosis of [place] coronary artery of [place] heart without angina pectoris Take 1 tablet (40 mg) by mouth at bedtime 100 tablet 3 02/06/2025 Active Start: 02-08-2024 take 1 tablet by fatimah th at bedtime simvastatin (Zocor) 40 MG tablet Indications: Atherosclerosis of [place] coronary artery of [place] heart without angina pectoris (CMS/HCC) Take 1 tablet (40 mg) by mouth at bedtime 100 tablet 3 02/08/2024 Active Start: 10-06-2023 End: 01-14-2024 take 1 tablet by mouth at bedtime simvastatin (Zocor) 40 MG tablet Indications: Atherosclerosis of [place] coronary artery of [place] heart without angina pectoris (CMS/HCC) Take 1 tablet (40 mg) by mouth at bedtime 100 tablet 0 10/06/2023 01/14/2024 Active sucralfate 1000 mg oral tablet (20 sources) Aluminum Complex Start: 09-18-2022 End: 03-14-2025 sucralfate (Carafate) 1 g tablet Indications: Gastroesophageal reflux disease with esophagitis without hemorrhage TAKE 1 TABLET BY MOUTH EVERY MORNING, ONCE IN THE EVENING AND ONCE BEFORE BEDTIME 270 tablet 3 03/14/2025 Active tiZANidine 4 mg oral tablet (15 [...] tablet (20 sources) gamma-Aminobutyric Acid-ergic Agonist Start: 10-25-2024 End: 03-13-2025 take 1 tablet by mouth at bedtime zolpidem (Ambien) 10 MG tablet Indications: Chronic insomnia Take 1 tablet (10 mg) by mouth at bedtime 30 tablet 2 03/13/2025 Active Start: 08-18-2023 End: 10-23-2024 take 1 tablet by mouth at bedtime zolpidem (Ambien) 10 MG tablet Indications: Chronic insomnia Take 1 tablet (10 mg) by mouth at bedtime 30 tablet 2 04/05/2024 10/23/2024 Discontinued (Reorder) Completed/Discontinued Medications Medication Drug Class(es) Dates Sig (Normalized) Sig (Original) cefadroxil 500 mg oral capsule (6 sources) Cephalosporin Antibacterial End: 12-09-2023 take 2 capsules by mouth in the morning, then take 2 capsules by mouth at bedtime cefaDROXil (DURICEF) 500 mg capsule Take 2 capsules (1,000 mg total) by mouth in the morning and 2 capsules (1,000 mg total) before bedtime. 0 12/09/2023 Discontinued (Therapy completed) 1 ml triamcinolone acetonide 40 mg/ml prefilled syringe (4 sources) Corticosteroid Start: 02-28-2025 End: 02-28-2025 triamcinolone acetonide (Kenalog-40) injection 40 mg Start: 02-28-2025 End: 02-28-2025 triamcinolone acetonide (Kenalog-40) injection 40 mg Start: 02-28-2025 End: 02-28-2025 inject 40 mg by intramuscular injection once 40 mg, Intramuscular, Once, On Wed02/28/25 at 1130, For 1 dose Start: 02-28-2025 End: 02-28-2025 inject 40 mg by intramuscular injection once 40 mg, Intramuscular, Once, On Wed02/28/25 at 1130, For 1 dose Problems Active Problems Problem Classification Problem Date Documented Date Episodic/Chronic Acute bronchitis (3 sources) Acute bronchitis; Translations: [Acute bronchitis, unspecified] 05-10-2024 Episodic Acute cerebrovascular disease (20 sources) Cerebrovascular accident; Translations: [Cerebral infarction, unspecified] Onset: 4 08-30-2024 Chronic Administrative/social admission (2 sources) Patient encounter status; Translations: [Other specified counseling] 12-06-2024 Episodic Anxiety disorders (20 sources) Anxiety; Translations: [Anxiety disorder, unspecified] Onset: 3 01-19-2023 Chronic Chronic kidney disease (20 sources) Chronic kidney disease stage 3B ; Translations: [Stage 3b chronic kidney disease (HCC)] Onset: 3 01-19-2023 Chronic Coronary atherosclerosis and other heart disease (20 sources) Coronary occlusion; Translations: [Atherosclerotic heart disease of [place] coronary artery without angina pectoris] Onset: 4 [...] Codes: Fall (1 source) Fall Onset: 4 Epilepsy; convulsions (2 sources) Epilepsy; Translations: [Epilepsy, unspecified, not intractable, without status epilepticus] 02-12-2025 Chronic Esophageal disorders (20 sources) Gastro-esophageal reflux disease with esophagitis; Translations: [Gastroesophageal reflux disease with esophagitis without hemorrhage] Onset: 7 Resolved: 3 01-19-2023 Chronic Essential hypertension (20 sources) Benign essential hypertension; Translations: [Essential (primary) hypertension] Onset: 0 Resolved: 3 01-19-2023 Chronic Gout and other crystal arthropathies (20 sources) Chronic gouty arthritis; Translations: [Idiopathic chronic gout, unspecified site, without tophus (tophi)] Onset: 3 01-19-2023 Chronic Headache; including migraine (2 sources) Episodic tension-type headache; Translations: [Episodic tension-type headache, not intractable] 02-12-2025 Chronic Hyperplasia of prostate (20 sources) Benign [...] [Chondrocostal junction syndrome [Tietze]] 07-12-2024 Episodic Other circulatory disease (2 sources) History of transient ischemic attack; Translations: [Personal history of transient ischemic attack (TIA), and cerebral infarction without residual deficits] 11-08-2024 Episodic Other gastrointestinal disorders (20 sources) 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; Translations: [Irritable bowel syndrome with constipation] Onset: 4 10-27-2023 Chronic Other gastrointestinal disorders (2 sources) Dysphagia; Translations: [Dysphagia, pharyngoesophageal phase] 11-01-2024 Episodic Other nervous system disorders (20 sources) Chronic pain; Translations: [Other chronic pain] Onset: 3 01-19-2023 Chronic Other nervous system disorders (20 sources) Chronic postoperative pain; Translations: [Other chronic postprocedural pain] Onset: 7 02-03-2023 Chronic Other nervous system disorders (6 sources) Dysarthria; Translations: [Dysarthria and anarthria] 08-30-2024 Episodic Other nutritional; endocrine; and metabolic disorders (20 sources) Hypocalcemia; Translations: [Hypocalcemia] Onset: 3 01-19-2023 Chronic Other nutritional; endocrine; and metabolic disorders (20 sources) Body mass index 30+ - obesity; Translations: [Obesity, unspecified] Onset: 2 01-19-2023 Chronic Other upper respiratory disease (4 sources) Bronchospasm; Translations: [Acute bronchospasm] 02-28-2025 Episodic Other upper respiratory infections (5 sources) Upper respiratory infection; Translations: [Acute upper respiratory infection, unspecified] 08-31-2024 Episodic Peripheral and visceral atherosclerosis (11 sources) Arteriosclerotic vascular disease; Translations: [Unspecified atherosclerosis] Onset: 3 09-18-2022 Chronic Spondylosis; intervertebral disc disorders; other back problems (20 sources) Cervical spondylosis without myelopathy; Translations: [Spondylosis without myelopathy or radiculopathy, cervical region] Onset: 1 01-19-2023 Chronic Syncope (4 sources) Syncope; Translations: [Syncope and collapse] 06-26-2024 Episodic Unclassified (1 source) Weakness - Generalized Onset: 5 Unclassified (1 source) Ill Onset: 4 Unclassified (1 source) Subacute cough; Translations: [Subacute cough] Onset: 4 Past or Other Problems Problem Classification Problem Date Documented Da te Episodic/Chronic Abdominal hernia (20 sources) Hiatal hernia; Translations: [Diaphragmatic hernia without obstruction or gangrene] Onset: 09-18-2022 01-19-2023 Episodic Acute and unspecified renal failure (20 sources) Dnarz-io-srghbme renal failure; Translations: [Acute kidney failure, unspecified] Onset: 09-20-2020 Resolved: 02-03-2023 02-03-2023 Episodic Acute myocardial infarction (20 sources) Myocardial infarction; Translations: [Acute myocardial infarction, unspecified] Onset: 09-13-2016 Resolved: 02-03-2023 02-03-2023 Chronic Conditions associated with dizziness or vertigo (20 sources) Vertigo; Translations: [Dizziness and giddiness] Onset: 08-10-2024 06-26-2024 Episodic Coronary atherosclerosis and other heart [...] peptic ulcer disease] Onset: 09-18-2022 02-03-2023 Episodic Genitourinary symptoms and ill-defined conditions (11 sources) Disorder of the urinary system; Translations: [Disorder of urinary system, unspecified] Onset: 06-06-2021 08-22-2021 Episodic Inflammatory conditions of male genital organs (20 sources) Balanitis; Translations: [Balanitis] Onset: 06-06-2021 Resolved: 02-03-2023 02-03-2023 Chronic Malaise and fatigue (4 sources) Asthenia; Translations: [Weakness] Onset: 05-18-2024 11-08-2024 Episodic Nonspecific chest pain (20 sources) Chest pain; Translations: [Chest pain, unspecified] Onset: 01-23-2017 Resolved: 02-03-2023 02-03-2023 Episodic Other and unspecified benign neoplasm (20 sources) History of polyp of colon; Translations: [Personal history of colonic polyps] Onset: 04-26-2019 02-03-2023 Episodic Other and unspecified benign neoplasm (11 sources) Polyp of colon; Translations: [Polyp of [...] cough] 05-10-2024 Episodic Other male genital disorders (11 sources) Phimosis; Translations: [Phimosis] Onset: 06-06-2021 07-04-2021 Episodic Other nervous system disorders (1 source) Abnormal gait Onset: 10-06-2024 Episodic Other nervous system disorders (1 source) Dysarthria and anarthria; Translations: [Dysarthria and anarthria] Onset: 08-10-2024 Episodic Other screening for suspected conditions (not mental disorders or infectious disease) (20 sources) Increased blood lead level; Translations: [Abnormal lead level in blood] Onset: 12-06-2024 08-24-2024 Episodic Residual codes; unclassified (20 sources) Confusional state; Translations: [Disorientation, unspecified] Onset: 09-16-2020 Resolved: 02-03-2023 02-03-2023 Episodic Spondylosis; intervertebral disc disorders; other back problems (20 sources) Spinal stenosis in cervical region; Translations: [Spinal stenosis, cervical region] Onset: 12-20-2018 Resolved: 10-27-2023 01-19-2023 Episodic Viral infection (20 sources) Disease caused by 2019-nCoV; Translations: [COVID-19] Onset: 09-20-2020 Resolved: 02-03-2023 02-03-2023 Episodic Results Test Name Value Interpretation Reference Range Facility BASIC METABOLIC PANELon 01-11 Anion gap [Moles/Vol] 4 mmol/L Low 5-15 [facility] Comment on above: Performed By: #### B MP ####[facility] [place] [address] VIR Calcium [Mass/Vol] 8.0 mg/dL Low 8.5-10.5 [facility] Comment on above: Performed By: #### B MP ####[facility] ([address] [place] [address] VIR Chloride [Moles/Vol] 111 mmol/L High 98-109 [facility] Comment on above: Performed By: #### B MP ####[facility] ([address] [place] [address] VIR CO2 [Moles/Vol] 23 mmol/L Normal 22-32 [facility] Comment on above: Performed By: #### B MP ####[facility] ([address] [place] [address] VIR Creatinine [Mass/Vol] 1.69 mg/dL High 0.70-1.20 [facility] Comment on above: Result Comment: METH OD TRACEABLE TO IDMS STANDARD Performed By: #### B MP ####[facility] ([address] [address] VIR GFR/1.73 sq M.predicted among non-blacks MDRD (S/P/Bld) [Vol rate/Area] 41 mL/min/{1.73_m2} Low >=60 [facility] Comment on above: Result Comment: eGFR not reported due to non-numeric value for Creatinine. Reported eGFR is based on the CKD-EPI 2021 equation that does not use a race coefficient. Performed By: #### B MP ####[facility] ([address] [place] [address] VIR Glucose [Mass/Vol] 89 mg/dL Normal 65-99 [facility] Comment on above: Performed By: #### B MP ####[facility] ([address] [place] [address] VIR Potassium [Moles/Vol] 4.3 mmol/L Normal 3.5-5.0 [facility] Comment on above: Performed By: #### B MP ####[facility] ([facility])[address] [place] [address].[place] [address] VIR Sodium [Moles/Vol] 138 mmol/L Normal 134-146 [facility] Comment on above: Performed By: #### B MP ####[facility] ([address] [place] [address] VIR Urea nitrogen [Mass/Vol] 25 mg/dL Normal 5-27 [facility] Comment on above: Performed By: #### B MP ####[facility] ([address] [place] [address] VIR CBC WITH AUTO DIFFERENTIALon 01-22-2025 BASOPHILS ABSOLUTE COUNT (10*3/UL) BY AUTOMATED COUNT 0.0 10*3/uL Normal 0.0-0.2 [facility] Comment on above: Performed By: #### C BCA ####[facility] ([address] [place] [address] VIR BASOPHILS RELATIVE PERCENT BY AUTOMATED COUNT 0.3 % Normal [facility] Comment on above: Performed By: #### C BCA ####[facility] ([address] [address] VIR CELLAVISION DIFFERENTIAL TYPE AUTOMATED DIFFERENTIAL Normal [facility] Comment on above: Performed By: #### C BCA ####[facility] ([address] [place] [address] VIR Eosinophils (Bld) [#/Vol] 0.2 10*3/uL Normal 0.0-0.4 [facility] Comment on above: Performed By: #### C BCA ####[facility] ([address] [place] [address] VIR EOSINOPHILS RELATIVE PERCENT BY AUTOMATED COUNT 2.9 % Normal [facility] Comment on above: Performed By: #### C BCA ####[facility] ([address] [address] VIR Erythrocyte distribution width (RBC) [Ratio] 14.3 % Normal 11.5-15 [facility] Comment on above: Performed By: #### C BCA ####[facility] ([address] [address] VIR Hematocrit (Bld) [Volume fraction] 39.7 % Normal 39-50 [facility] Comment on above: Performed By: #### C BCA ####[facility] ([address] [address] VIR Hemoglobin (Bld) [Mass/Vol] 13.4 g/dL Normal 13-17 [facility] Comment on above: Performed By: #### C BCA ####[facility] ([address] [address] VIR LYMPHOCYTES ABSOLUTE COUNT (10*3/UL) BY AUTOMATED COUNT 2.1 10*3/uL Normal 1.0-3.5 [facility] Comment on above: Performed By: #### C BCA ####[facility] ([address] [address] VIR LYMPHOCYTES RELATIVE PERCENT BY AUTOMATED COUNT 32.7 % Normal [facility] Comment on above: Performed By: #### C BCA ####[facility] ([address] [address] VIR MCH (RBC) [Entitic mass] 29.3 pg Normal 27-34 [facility] Comment on above: Performed By: #### C BCA ####[facility] ([address] [address] VIR MCHC (RBC) [Mass/Vol] 33.8 g/dL Normal 32-36 [facility] Comment on above: Performed By: #### C BCA ####[facility] ([address] [place] [address] VIR MCV (RBC) [Entitic vol] 87 fL Normal 80-100 [facility] Comment on above: Performed By: #### C BCA ####[facility] ([address] [place] [address] VIR MONOCYTES ABSOLUTE COUNT (10*3/UL) BY AUTOMATED COUNT 0.5 10*3/uL Normal 0.0-0.9 [facility] Comment on above: Performed By: #### C BCA ####[facility] ([address] [place] [address] VIR MONOCYTES RELATIVE PERCENT BY AUTOMATED COUNT 8.2 % Normal [facility] Comment on above: Performed By: #### C BCA ####[facility] ([address] [place] [address] VIR NEUTROPHILS ABSOLUTE COUNT BY AUTOMATED COUNT 3.6 10*3/uL Normal 1.5-6.6 [facility] Comment on above: Performed By: #### C BCA ####[facility] ([address] [address] VIR NEUTROPHILS RELATIVE PERCENT BY AUTOMATED COUNT 55.9 % Normal [facility] Comment on above: Performed By: #### C BCA ####[facility] ([address] [place] [address] VIR Platelet mean volume (Bld) [Entitic vol] 7.5 fL Normal 7-12 [facility] Comment on above: Performed By: #### C BCA ####[facility] ([address] [place] [address] VIR Platelets (Bld) [#/Vol] 194 10*3/uL Normal 150-450 [facility] Comment on above: Performed By: #### C BCA ####[facility] ([address] [place] [address] VIR RBC COUNT 4.58 X10E12/L Normal 4.1-5.7 [facility] Comment on above: Performed By: #### C BCA ####[facility] ([address] [address] VIR WBC (Bld) [#/Vol] 6.5 10*3/uL Normal 4-11 [facility] Comment on above: Performed By: #### C BCA ####[facility] (REPLACED BY [facility])[address] [place] [address] [place] [address] VIR MAGNESIUMon 01-22-2025 Magnesium [Mass/Vol] 1.8 mg/dL Normal 1.8-2.6 [facility] Comment on above: Performed By: #### M G ####[facility] ([address] [place] [address] VIR Laboratory - Chemistry and C hemistry - challengeon 12-07-2024 Free T3 [Mass/Vol] 3.2 pg/mL 2.3 - 4.2 pg/mL [facility] Free T4 [Mass/Vol] 1.1 ng/dL 0.8 - 1.8 ng/dL [facility] Prostate specific Ag [Mass/Vol] 0.32 ng/mL < OR = 4.00 [facility] Comment on above: The total PSA value from this assay system is standardized against the WHO standard. The test result will be approximately 20% lower when compared to the equimolar-standardized total PSA (Kika Chad). Comparison of serial PSA results should be interpreted with this fact in mind. This test was performed using the Siemens chemiluminescent method. Values obtained from different assay methods cannot be used interchangeably. PSA levels, regardless of value, should not be interpreted as absolute evidence of the presence or absence of disease. TSH Qn 4.48 m[IU]/L [facility] are No Panel Informationon 12-07 Performing Organization Information Site ID: QPT Name: [facility] Address: [address] [place] [id number] Director: Ariel Bermeo MD [facility] e PSA, TOTALon 12-07-2024 PSA, TOTAL 0.32 ng/mL Normal < OR = 4.00 [facility] Comment on above: Result Comment: The total PSA value from this assay system is standardized against the WHO standard. The test result will be approximately 20% lower when compared to the equimolar-standardized total PSA (Kika Only). Comparison of serial PSA results should be interpreted with this fact in mind. This test was performed using the Siemens chemiluminescent method. Values obtained from different assay methods cannot be used interchangeably. PSA levels, regardless of value, should not be interpreted as absolute evidence of the presence or absence of disease. Performed By: #### 8 66, 899, [address]47[address], 5363 #### [facility] [place] [address] [address] [address] Singer: Ariel Bermeo MD T3, FREE 12-07-2024 Free T3 [Mass/Vol] 3.2 pg/mL Normal 2.3-4.2 [facility] Comment on above: Performed By: #### 8 66, 899, 26129, 5363 #### [facility] [place] [address] [address] [address] Singer: Ariel Bermeo MD T4, 12-07-2024 Free T4 [Mass/Vol] 1.1 ng/dL Normal 0.8-1.8 [facility] Comment on above: Performed By: #### 8 66, 899, 79012, 5363 #### [facility] [place] [address] [address] Singer: Ariel Bermeo MD TSHon 12-07-2024 TSH Qn 4.48 m[IU]/L Normal 0.40-4.50 [facility] Comment on above: Performed By: #### 8 66, 899, 27101, 5363 #### [facility] [place] [address] [employer] Singer: Ariel Bermeo MD EMG 2 Extremitieson 11-17-19 [employer] e [facility] 11-12 NervesOrdered By: Tyler Sanchez on 11-16-2024 [facility] [employer] Work Phone: CBC AND AUTO DIFFon 10-07-19 ABSOLUTE BASOPHIL 0.0 X10E9/L Normal 0.0-0.2 [facility] Comment on above: Performed By: #### C ABDOULAYE, , CBCA ####[facility] ([id number])[address] [place] [address] ABSOLUTE NEUTROPHIL 3.1 X10E9/L Normal 1.5-6.6 [facility] Comment on above: Performed By: #### C ABDOULAYE, , CBCA ####[facility] ([id number])[address] [place] [address] Basophils/100 WBC (Bld) 0.4 % Normal [facility] Comment on above: Performed By: #### Matthew STANFORD, , CBCA ####[facility] ([id number])[address] [place] [address] Eosinophils (Bld) [#/Vol] 0.1 10*3/uL Normal 0.0-0.4 [facility] Comment on above: Performed By: #### C ABDOULAYE, , CBCA ####[facility] ([id number])[address] [place] [address] Eosinophils/100 WBC (Bld) 2.0 % Normal [facility] Comment on above: Performed By: #### Matthew STANFORD, , CBCA ####[facility] ([id number])[address] [place] [address] Erythrocyte distribution width (RBC) [Ratio] 14.5 % Normal 11.5-15.0 [facility] Comment on above: Performed By: #### C ABDOULAYE, , CBCA ####[facility] ([id number])[address] [place] [address] Hematocrit (Bld) [Volume fraction] 39.2 % Normal 39-49 [facility] Comment on above: Performed By: #### C ABDOULAYE, , CBCA ####[facility] ([id number])[address] [place] [address] Hemoglobin (Bld) [Mass/Vol] 13.3 g/dL Normal 13.0-17.0 [facility] Comment on above: Performed By: #### C ABDOULAYE, , CBCA ####[facility] ([id number])[address] [place] [address] Lymphocytes (Bld) [#/Vol] 2.0 10*3/uL Normal 1.0-3.5 [facility] Comment on above: Performed By: #### Matthew STANFORD, , CBCA ####[facility] ([id number])[address] [place] [address] Lymphocytes/100 WBC (Bld) 34.9 % Normal [facility] Comment on above: Performed By: #### Matthew STANFORD, , CBCA ####[facility] ([id number])[address] [place] [address] MCH (RBC) [Entitic mass] 29.8 pg Normal 27-34 [facility] Comment on above: Performed By: #### Matthew STANFORD, , CBCA ####[facility] ([id number])[address] [place] [address] MCHC (RBC) [Mass/Vol] 33.9 g/dL Normal 32-36 [facility] Comment on above: Performed By: #### Matthew STANFORD, , CBCA ####[facility] ([id number])[address] [place] [address] MCV (RBC) [Entitic vol] 88 fL Normal 80-100 [facility] Comment on above: Performed By: #### C ABDOULAYE, , CBCA ####[facility] ([id number])[address] [place] [address] Monocytes (Bld) [#/Vol] 0.5 10*3/uL Normal 0-0.9 [facility] Comment on above: Performed By: #### C ABDOULAYE, , CBCA ####[facility] ([id number])[address] [place] [address] Monocytes/100 WBC (Bld) 8.6 % Normal [facility] Comment on above: Performed By: #### C ABDOULAYE, , CBCA ####[facility] ([id number])[address] [place] [address] Neutrophils/100 WBC (Bld) 54.1 % Normal [facility] Comment on above: Performed By: #### C ABDOULAYE, , CBCA ####[facility] ([id number])[address] [place] [address] Platelet mean volume (Bld) [Entitic vol] 8.0 fL Normal 7-12 [facility] Comment on above: Performed By: #### C ABDOULAYE, , CBCA ####[facility] ([id number])[address] [place] [address] Platelets (Bld) [#/Vol] 164 10*3/uL Normal 150-450 [facility] Comment on above: Performed By: #### C ABDOULAYE, , CBCA ####[facility] ([id number])[address] [place] [address] RBC COUNT 4.45 X10E12/L Normal 4.10-5.70 [facility] Comment on above: Performed By: #### C ABDOULAYE, , CBCA ####[facility] ([id number])[address] [place] [address] WBC (Bld) [#/Vol] 5.7 10*3/uL Normal 4.0-11.0 [facility] Comment on above: Performed By: #### C ABDOULAYE, , CBCA ####[facility] ([id number])[address] [place] [address] COMPREHENSIVE METABOLIC PANE [facility] 10-07-2024 Albumin [Mass/Vol] 3.6 g/dL Normal 3.2-5.3 [facility] Comment on above: Performed By: #### C ABDOULAYE, , CBCA ####[facility] ([id number])[address] [place] [address] ALP [Catalytic activity/Vol] 67 U/L Normal 39-130 [facility] Comment on above: Performed By: #### C ABDOULAYE, , CBCA ####[facility] ([id number])[address] [place] [address] ALT [Catalytic activity/Vol] 32 U/L Normal 0-40 [facility] Comment on above: Performed By: #### C ABDOULAYE, , CBCA ####[facility] ([id number])[address] [place] [address] Anion gap [Moles/Vol] 8 mmol/L Normal 5-15 [facility] Comment on above: Performed By: #### C ABDOULAYE, , CBCA ####[facility] ([id number])[address] [place] [address] AST [Catalytic activity/Vol] 30 U/L Normal 0-41 [facility] Comment on above: Performed By: #### C ABDOULAYE, , CBCA ####[facility] ([id number])[address] [place] [address] Bilirubin [Mass/Vol] 0.9 mg/dL Normal 0.3-1.2 [facility] Comment on above: Performed By: #### C ABDOULAYE, , CBCA ####[facility] ([id number])[address] [place] [address] Calcium [Mass/Vol] 8.4 mg/dL Low 8.5-10.5 [facility] Comment on above: Performed By: #### Matthew STANFORD, , CBCA ####[facility] ([id number])[address] [place] [address] Chloride [Moles/Vol] 108 mmol/L Normal 98-109 [facility] Comment on above: Performed By: #### Matthew STANFORD, , CBCA ####[facility] ([id number])[address] [place] [address] CO2 [Moles/Vol] 25 mmol/L Normal 22-32 [facility] Comment on above: Performed By: #### Matthew STANFORD, , CBCA ####[facility] ([id number])[address] [place] [address] Creatinine [Mass/Vol] 1.30 mg/dL High 0.70-1.20 [facility] Comment on above: Result Comment: METH OD TRACEABLE TO IDMS STANDARD Performed By: #### Matthew STANFORD, , CBCA ####[facility] ([id number])[address] [place] [address] GFR/1.73 sq M.predicted among non-blacks MDRD (S/P/Bld) [Vol rate/Area] 57 mL/min/{1.73_m2} Low >59 [facility] Comment on above: Result Comment: Reported eGFR is based on the CKD-EPI 2021 equation that does not use a race coefficient. Performed By: #### C ABDOULAYE, , CBCA ####[facility] ([id number])[address] [place] [address] Glucose [Mass/Vol] 89 mg/dL Normal 65-99 [facility] Comment on above: Performed By: #### C ABDOULAYE, , CBCA ####[facility] ([id number])[address] [place] [address] Potassium [Moles/Vol] 3.9 mmol/L Normal 3.5-5.0 [facility] Comment on above: Performed By: #### C ABDOULAYE, , CBCA ####[facility] ([id number])[address] [place] [address] Protein [Mass/Vol] 6.1 g/dL Normal 6.0-8.0 [facility] Comment on above: Performed By: #### C ABDOULAYE, , CBCA ####[facility] ([id number])[address] [place] [address] Sodium [Moles/Vol] 141 mmol/L Normal 134-146 [facility] Comment on above: Performed By: #### C ABDOULAYE, , CBCA ####[facility] ([id number])[address] [place] [address] Urea nitrogen [Mass/Vol] 20 mg/dL Normal 5-27 [facility] Comment on above: Performed By: #### Matthew STANFORD, , CBCA ####[facility] ([id number])[address] [place] [address] MAGNESIUMon 10-07-2024 Magnesium [Mass/Vol] 1.8 mg/dL Normal 1.8-2.6 [facility] Comment on above: Performed By: #### C ABDOULAYE, 29528-5, CBCA ####[facility] ([id number])[address] [place] [address] CBC AND AUTO DIFFon 10-06-19 25 ABSOLUTE BASOPHIL 0.0 X10E9/L Normal 0.0-0.2 [facility] Comment on above: Performed By: #### 8 9579-7, 87444-3, 11130-0, THYR, 3040-3, CMP, CBCA ####[facility] ([id number])[address] [place] [address] ABSOLUTE NEUTROPHIL 3.7 X10E9/L Normal 1.5-6.6 [facility] Comment on above: Performed By: #### 8 9579-7, 89754-6, 29770-5, THYR, 3040-3, CMP, CBCA ####[facility] ([id number])[address] [place] [address] Basophils/100 WBC (Bld) 0.5 % Normal [facility] Comment on above: Performed By: #### 8 9579-7, 89798-4, 10913-0, THYR, 3040-3, CMP, CBCA ####[facility] ([id number])[address] [place] [address] Eosinophils (Bld) [#/Vol] 0.1 10*3/uL Normal 0.0-0.4 [facility] Comment on above: Performed By: #### 8 9579-7, 82826-9, 17317-3, THYR, 3040-3, CMP, CBCA ####[facility] ([id number])[address] [place] [address] Eosinophils/100 WBC (Bld) 1.5 % Normal [facility] Comment on above: Performed By: #### 8 9579-7, 17740-3, 09320-4, THYR, 3040-3, CMP, CBCA ####[facility] ([id number])[address] [place] [address] Erythrocyte distribution width (RBC) [Ratio] 14.7 % Normal 11.5-15.0 [facility] Comment on above: Performed By: #### 8 9579-7, 48429-6, 82115-0, THYR, 3040-3, CMP, CBCA ####[facility] ([id number])[address] [place] [address] Hematocrit (Bld) [Volume fraction] 41.1 % Normal 39-49 [facility] Comment on above: Performed By: #### 8 9579-7, 99533-4, 83336-9, THYR, 3040-3, CMP, CBCA ####[facility] ([id number])[address] [place] [address] Hemoglobin (Bld) [Mass/Vol] 13.6 g/dL Normal 13.0-17.0 [facility] Comment on above: Performed By: #### 8 9579-7, 81523-5, 34981-1, THYR, 3040-3, CMP, CBCA ####[facility] ([id number])[address] [place] [address] Lymphocytes (Bld) [#/Vol] 1.6 10*3/uL Normal 1.0-3.5 [facility] Comment on above: Performed By: #### 8 9579-7, 25020-5, 65146-7, THYR, 3040-3, CMP, CBCA ####[facility] ([id number])[address] [place] [address] Lymphocytes/100 WBC (Bld) 27.9 % Normal [facility] Comment on above: Performed By: #### 8 9579-7, 63910-8, 44771-4, THYR, 3040-3, CMP, CBCA ####[facility] ([id number])[address] [place] [address] MCH (RBC) [Entitic mass] 29.4 pg Normal 27-34 [facility] Comment on above: Performed By: #### 8 9579-7, 84366-4, 52976-7, THYR, 3040-3, CMP, CBCA ####[facility] ([id number])[address] [place] [address]3265 MCHC (RBC) [Mass/Vol] 33.2 g/dL Normal 32-36 [facility] Comment on above: Performed By: #### 8 9579-7, 34876-4, 09388-1, THYR, 3040-3, CMP, CBCA ####[facility] ([id number])[address] [place] [address] 55859 MCV (RBC) [Entitic vol] 89 fL Normal 80-100 [facility] Comment on above: Performed By: #### 8 9579-7, 98628-8, 21977-2, THYR, 3040-3, CMP, CBCA ####[facility] ([id number])[address] [place] [address] 00066 Monocytes (Bld) [#/Vol] 0.3 10*3/uL Normal 0-0.9 [facility] Comment on above: Performed By: #### 8 9579-7, 05931-1, 13942-1, THYR, 3040-3, CMP, CBCA ####[facility] ([id number])[address] [place] [address] 76422 Monocytes/100 WBC (Bld) 6.1 % Normal [facility] Comment on above: Performed By: #### 8 9579-7, 23862-4, 77621-6, THYR, 3040-3, CMP, CBCA ####[facility] ([id number])[address] [place] [address] Neutrophils/100 WBC (Bld) 64.0 % Normal [facility] Comment on above: Performed By: #### 8 9579-7, 32196-0, 46092-1, THYR, 3040-3, CMP, CBCA ####[facility] ([id number])[address] [place] [address] 52929 Platelet mean volume (Bld) [Entitic vol] 7.8 fL Normal 7-12 [facility] Comment on above: Performed By: #### 8 9579-7, 72654-3, 75682-4, THYR, 3040-3, CMP, CBCA ####[facility] ([id number])[address] [place] [address] 06969 Platelets (Bld) [#/Vol] 184 10*3/uL Normal 150-450 [facility] Comment on above: Performed By: #### 8 9579-7, 58120-7, 46474-2, THYR, 3040-3, CMP, CBCA ####[facility] ([id number])[address] [place] [address] 88499 RBC COUNT 4.64 X10E12/L Normal 4.10-5.70 [facility] Comment on above: Performed By: #### 8 9579-7, 46330-9, 26702-3, THYR, 3040-3, CMP, CBCA ####[facility] ([id number])[address] [place] [address] 21099 WBC (Bld) [#/Vol] 5.7 10*3/uL Normal 4.0-11.0 [facility] Comment on above: Performed By: #### 8 9579-7, 32264-6, 03404-3, THYR, 3040-3, CMP, CBCA ####[facility] ([id number])[address] [place] [address] 25273 COMPREHENSIVE METABOLIC PANE [facility] 10-06-2024 Albumin [Mass/Vol] 3.8 g/dL Normal 3.2-5.3 [facility] Comment on above: Performed By: #### 8 9579-7, 56090-1, 67725-8, THYR, 3040-3, CMP, CBCA ####[facility] ([id number])[address] [place] [address] 79256 ALP [Catalytic activity/Vol] 76 U/L Normal 39-130 [facility] Comment on above: Performed By: #### 8 9579-7, 06853-0, 16501-9, THYR, 3040-3, CMP, CBCA ####[facility] ([id number])[address] [place] [address] 02450 ALT [Catalytic activity/Vol] 27 U/L Normal 0-40 [facility] Comment on above: Performed By: #### 8 9579-7, 60165-6, 29821-6, THYR, 3040-3, CMP, CBCA ####[facility] ([id number])[address] [place] [address] 79447 Anion gap [Moles/Vol] 6 mmol/L Normal 5-15 [facility] Comment on above: Performed By: #### 8 9579-7, 64454-7, 62794-7, THYR, 3040-3, CMP, CBCA ####[facility] ([id number])[address] [place] [address] 86546 AST [Catalytic activity/Vol] 29 U/L Normal 0-41 [facility] Comment on above: Performed By: #### 8 9579-7, 02737-3, 50794-6, THYR, 3040-3, CMP, CBCA ####[facility] ([id number])[address] [place] [address] 75018 Bilirubin [Mass/Vol] 0.7 mg/dL Normal 0.3-1.2 [facility] Comment on above: Performed By: #### 8 9579-7, 48566-5, 56372-8, THYR, 3040-3, CMP, CBCA ####[facility] ([id number])[address] [place] [address] 00898 Calcium [Mass/Vol] 8.4 mg/dL Low 8.5-10.5 [facility] Comment on above: Performed By: #### 8 9579-7, 09745-4, 50666-1, THYR, 3040-3, CMP, CBCA ####[facility] ([id number])[address] [place] [address] 85335 Chloride [Moles/Vol] 109 mmol/L Normal 98-109 [facility] Comment on above: Performed By: #### 8 9579-7, 50348-7, 79453-7, THYR, 3040-3, CMP, CBCA ####[facility] ([id number])[address] [place] [address] 41367 CO2 [Moles/Vol] 24 mmol/L Normal 22-32 [facility] Comment on above: Performed By: #### 8 9579-7, 73468-1, 13410-0, THYR, 3040-3, CMP, CBCA ####[facility] ([id number])[address] [place] [address] 93801 Creatinine [Mass/Vol] 1.56 mg/dL High 0.70-1.20 [facility] Comment on above: Result Comment: METH OD TRACEABLE TO IDMS STANDARD Performed By: #### 8 9579-7, 24095-8, 01787-1, THYR, 3040-3, CMP, CBCA ####[facility] ([id number])[address] [place] [address] 70435 GFR/1.73 sq M.predicted among non-blacks MDRD (S/P/Bld) [Vol rate/Area] 45 mL/min/{1.73_m2} Low >59 [facility] Comment on above: Result Comment: Reported eGFR is based on the CKD-EPI 2020 equation that does not use a race coefficient. Performed By: #### 8 9579-7, 65121-5, 70416-8, THYR, 3040-3, CMP, CBCA ####[facility] ([id number])[address] [place] [address] 47526 Glucose [Mass/Vol] 174 mg/dL High 65-99 [facility] Comment on above: Performed By: #### 8 9579-7, 14514-3, 00658-4, THYR, 3040-3, CMP, CBCA ####[facility] ([id number])[address] [place] [address] 40366 Potassium [Moles/Vol] 3.7 mmol/L Normal 3.5-5.0 [facility] Comment on above: Performed By: #### 8 9579-7, 90072-4, 13752-2, THYR, 3040-3, CMP, CBCA ####[facility] ([id number])[address] [place] [address] 24685 Protein [Mass/Vol] 6.5 g/dL Normal 6.0-8.0 [facility] Comment on above: Performed By: #### 8 9579-7, 89846-1, 96636-1, THYR, 3040-3, CMP, CBCA ####[facility] ([id number])[address] [place] [address] 10528 Sodium [Moles/Vol] 139 mmol/L Normal 134-146 [facility] Comment on above: Performed By: #### 8 9579-7, 73409-1, 09710-5, THYR, 3040-3, CMP, CBCA ####[facility] ([id number])[address] [place] [address] Urea nitrogen [Mass/Vol] 20 mg/dL Normal 5-27 [facility] Comment on above: Performed By: #### 8 9579-7, 48870-5, 51272-6, THYR, 3040-3, CMP, CBCA ####[facility] ([id number])[address] [place] [address] [id number] CT BRAIN WO CONT STROKE ALER Ton 10-06-2024 CT BRAIN WO CONT STROKE ALERT CT BRAIN WO CONT STROKE ALERT CLINICAL INFORMATION: Neuro deficit, acute, stroke suspected TECHNIQUE: CT BRAIN WO CONT STROKE ALERT CT images of the brain were obtained. There is no acute intracranial hemorrhage. No cortical infarct identified. No mass or midline shift. Sinuses are clear. No calvarial abnormality. IMPRESSION: No acute intracranial findings. All CT scans at this facility use dose modulation, iterative reconstruction, and/or weight based dosing when appropriate to reduce radiation dose to as low as reasonably achievable. Finalized by Joye Tejada MD on 10/06/2024 12:47 PM Normal [facility] Glucose Glucometer (BldC) [M ass/Vol]on 10-06-2024 Glucose [Mass/Vol] 73 mg/dL Normal 65-99 [facility] Glucose [Mass/Vol] 192 mg/dL High 65-99 [facility] LIPASEon 10-06-2024 Lipase [Catalytic activity/Vol] 29 U/L Normal 17-40 [facility] Comment on above: Performed By: #### 8 9579-7, 06942-4, 89296-7, THYR, 3040-3, CMP, CBCA ####[facility] ([id number])[address] [place] [address] Natriuretic peptide B [Mass/ Vol]on 10-06-2024 Natriuretic peptide B (Bld) [Mass/Vol] 26 pg/mL Normal <100.0 [facility] Comment on above: Performed By: #### 8 9579-7, 75501-4, 90329-5, THYR, 3040-3, CMP, CBCA ####[facility] ([id number])[address] [place] [address] SARS/FLU A+B/RSV by NAAT/Mol ecularon 10-06-2024 SARS/FLU A+B/RSV by NAAT/Molecular FLU A PCR Negative (qualifier value) FLU B PCR Negative (qualifier value) RSV by PCR Negative (qualifier value) SARS CoV 2 Not detected (qualifier value) NOTE The Xpert Xpress SARS-CoV-2/Flu/RSV Plus test is a rapid, multiplexed real-time RT-PCR test intended for the simultaneous qualitative detection and differentiation of SARS-CoV-2, influenza A, influenza B and respiratory syncytial virus (RSV) viral RNA from individuals suspected of respiratory viral infection consistent with COVID-19 by their healthcare provider. This test has not been validated in asymptomatic patients. The Xpert Xpress SARS-CoV-2 test is intended for use by qualified and trained operators who are performing tests using either [employer] or [employer] systems and is limited to laboratories that [...] acute phase of infection. Positive results are indicative of the presence of the identified virus, [...] specimen repeat. Fact Sheet for Healthcare Providers: https://www.fda.gov/m edia/385528/download Fact Sheet for Patients: https://www.fda.gov/m edia/245810/download Normal [facility] Comment on above: Performed By: #### C OVFLR ####[facility] ([id number])[address] [place] [address] THYROID PROFILEon 10-06-2024 Free T4 [Mass/Vol] 0.77 ng/dL Normal 0.61-1.60 [facility] Comment on above: Performed By: #### 8 9579-7, 37817-8, 53608-2, THYR, 3040-3, CMP, CBCA ####[facility] ([id number])[address] [place] [address] 66786 TSH 4.84 uIU/mL High 0.49-4.67 [facility] Comment on above: Performed By: #### 8 9579-7, 98219-2, 53942-7, THYR, 3040-3, CMP, CBCA ####[facility] ([id number])[address] [place] [address] Troponin I.cardiac High sens itivity method [Mass/Vol]on 10-06-2024 1 HOUR TROP I, HIGH SENSITIVITY 4 ng/L Normal <21 [facility] Comment on above: Performed By: #### 2 132-9 ####[facility] ([id number])[address] [place] [address], [address] [place] [address]#### 54238-2 ####[facility] ([id number])[address] [place] [address]89 TROPONIN I, HIGH SENSITIVITY 4 ng/L Normal <21 [facility] Comment on above: Performed By: #### 8 9579-7, 32519-9, 06659-1, THYR, 3040-3, CMP, CBCA ####[facility] ([id number])[address] [place] [address] VITAMIN B12on 10-06-2024 Cobalamin (Vitamin B12) [Mass/Vol] 180 pg/mL Normal 180-914 [facility] Comment on above: Performed By: #### 2 132-9 ####[facility] ([id number])[address] [place] [address], [address] [address]#### 61862-6 ####[facility] ([id number])[address] [place] [address] aPTT Coag (PPP) [Time]on aPTT Coag (Bld) [Time] 34 s Normal 26-37 [facility] Comment on above: Result Comment: NEW REFERENCE RANGE Performed By: #### 8 9579-7, 54696-8, 38902-5, THYR, 3040-3, CMP, CBCA ####[facility] ([id number])[address] [place] [address] BASIC METABOLIC PANELon 09-13 Calcium [Mass/Vol] 8.4 mg/dL Low 8.6-10.3 [facility] Comment on above: Order Comment: FASTI NG:YES FASTING: YES Performed By: #### 1 0165 #### [facility] [address] [place] [phone] [employer] Singer: Casi Dinh Chloride [Moles/Vol] 109 mmol/L Normal 98-110 [facility] Comment on above: Order Comment: FASTI NG:YES FASTING: YES Performed By: #### 1 0165 #### [facility] [address] [place] [phone] [employer]: Casi Dinh CO2 [Moles/Vol] 30 mmol/L Normal 20-32 [facility] Comment on above: Order Comment: FASTI NG:YES FASTING: YES Performed By: #### 1 0165 #### [facility] [address] [place] [phone] [employer]: Casi Dinh Creatinine [Mass/Vol] 1.56 mg/dL High 0.70-1.28 [facility] Comment on above: Order Comment: FASTI NG:YES FASTING: YES Performed By: #### 1 0165 #### [facility] [address] [place], [place] [phone] [employer]: Casi Dinh GFR/1.73 sq M.predicted among non-blacks MDRD (S/P/Bld) [Vol rate/Area] 45 mL/min/{1.73_m2} Low > OR = 60 [facility] Comment on above: Order Comment: FASTI NG:YES FASTING: YES Performed By: #### 1 0165 #### [facility] [address] [place] [address] [employer]: Casi Dinh Glucose [Mass/Vol] 83 mg/dL Normal 65-99 [facility] Comment on above: Order Comment: FASTI NG:YES FASTING: YES Result Comment: Fasting reference interval Performed By: #### 1 0165 #### [facility] [address] [place], [place] [phone] [employer]: Casi Dinh Potassium [Moles/Vol] 4.0 mmol/L Normal 3.5-5.3 [facility] Comment on above: Order Comment: FASTI NG:YES FASTING: YES Performed By: #### 1 0165 #### [facility] [address] [place], [place] [phone] [employer]: Casi Dinh Sodium [Moles/Vol] 144 mmol/L Normal 135-146 [facility] Comment on above: Order Comment: FASTI NG:YES FASTING: YES Performed By: #### 1 0165 #### [facility] [address] [place], [place] [phone] [employer]: Casi Dinh Urea nitrogen [Mass/Vol] 19 mg/dL Normal 7-25 [facility] Comment on above: Order Comment: FASTI NG:YES FASTING: YES Performed By: #### 1 0165 #### [facility] [address] [place], [place] [phone] [employer]: Casi Dinh Urea nitrogen/Creatinine [Mass ratio] 12 mg/mg Normal 6-22 [facility] Comment on above: Order Comment: FASTI NG:YES FASTING: YES Performed By: #### 1 0165 #### [facility] [address] [place] [address] [employer] Singer: Casi Dinh CBC AND AUTO DIFFon 09-14-19 25 ABSOLUTE BASOPHIL 0.0 X10E9/L Normal 0.0-0.2 [facility] Comment on above: Performed By: #### 8 9579-7 #### [facility] ([id number]) [address] [place] [address] #### CMP, CBCA #### [facility] ([id number]) [address] [place] [address] ABSOLUTE NEUTROPHIL 4.5 X10E9/L Normal 1.5-6.6 [facility] Comment on above: Performed By: #### 8 9579-7 #### [facility] ([id number]) [address] [place] [address] #### CMP, CBCA #### [facility] ([id number]) [address] [place] [address]80 Basophils/100 WBC (Bld) 0.6 % Normal [facility] Comment on above: Performed By: #### 8 9579-7 #### [facility] ([id number]) [address] [place], [place] [address] #### CMP, CBCA #### [facility] ([id number]) [address] [place] [address]7824 Eosinophils (Bld) [#/Vol] 0.2 10*3/uL Normal 0.0-0.4 [facility] Comment on above: Performed By: #### 8 9579-7 #### [facility] ([id number]) [address] [place] [address] #### CMP, CBCA #### [facility] ([id number]) [address] [place] [address]3752 Eosinophils/100 WBC (Bld) 2.6 % Normal [facility] Comment on above: Performed By: #### 8 9579-7 #### [facility] ([id number]) [address] [place] [address] #### CMP, CBCA #### [facility] ([id number]) [address] [place] [address]88[address] Erythrocyte distribution width (RBC) [Ratio] 14.5 % Normal 11.5-15.0 [facility] Comment on above: Performed By: #### 8 9579-7 #### [facility] ([id number]) [address] [place] [address] #### CMP, CBCA #### [facility] ([id number]) [address] [place] [address] 75651 Hematocrit (Bld) [Volume fraction] 43.2 % Normal 39-49 [facility] Comment on above: Performed By: #### 8 9579-7 #### [facility] ([id number]) [address] [place], [place] [address] #### CMP, CBCA #### [facility] ([id number]) [address] [place] [address] 03532 Hemoglobin (Bld) [Mass/Vol] 14.2 g/dL Normal 13.0-17.0 [facility] Comment on above: Performed By: #### 8 9579-7 #### [facility] ([id number]) [address] [place], [place] [address] #### CMP, CBCA #### [facility] ([id number]) [address] [place] [address] 15119 Lymphocytes (Bld) [#/Vol] 2.1 10*3/uL Normal 1.0-3.5 [facility] Comment on above: Performed By: #### 8 9579-7 #### [facility] ([id number]) [address] [place] [address] #### CMP, CBCA #### [facility] ([id number]) [address] [place] [address] 54520 Lymphocytes/100 WBC (Bld) 28.3 % Normal [facility] Comment on above: Performed By: #### 8 9579-7 #### [facility] ([id number]) [address] [place] [address] #### CMP, CBCA #### [facility] ([id number]) [address] [place] [address] 62194 MCH (RBC) [Entitic mass] 29.1 pg Normal 27-34 [facility] Comment on above: Performed By: #### 8 9579-7 #### [facility] ([id number]) [address] [place] [address] #### CMP, CBCA #### [facility] ([id number]) [address] [place] [address] 28341 MCHC (RBC) [Mass/Vol] 32.8 g/dL Normal 32-36 [facility] Comment on above: Performed By: #### 8 9579-7 #### [facility] ([id number]) [address] [place], [place] [address] #### CMP, CBCA #### [facility] ([id number]) [address] [place] [address] 11580 MCV (RBC) [Entitic vol] 89 fL Normal 80-100 [facility] Comment on above: Performed By: #### 8 9579-7 #### [facility] ([id number]) [address] [place], [place] [address] #### CMP, CBCA #### [facility] ([id number]) [address] [place] [address] 94973 Monocytes (Bld) [#/Vol] 0.5 10*3/uL Normal 0-0.9 [facility] Comment on above: Performed By: #### 8 9579-7 #### [facility] ([id number]) [address] [place] [address] #### CMP, CBCA #### [facility] ([id number]) [address] [place] [address] 19834 Monocytes/100 WBC (Bld) 6.7 % Normal [facility] Comment on above: Performed By: #### 8 9579-7 #### [facility] ([id number]) [address] [place] [address] #### CMP, CBCA #### [facility] ([id number]) [address] [place] [address] 73256 Neutrophils/100 WBC (Bld) 61.8 % Normal [facility] Comment on above: Performed By: #### 8 9579-7 #### [facility] ([id number]) [address] [place] [address] #### CMP, CBCA #### [facility] ([id number]) [address] [place] [address] 38221 Platelet mean volume (Bld) [Entitic vol] 8.2 fL Normal 7-12 [facility] Comment on above: Performed By: #### 8 9579-7 #### [facility] ([id number]) [address] [place] [address] #### CMP, CBCA #### [facility] ([id number]) [address] [place] [address] 27827 Platelets (Bld) [#/Vol] 150 10*3/uL Normal 150-450 [facility] Comment on above: Performed By: #### 8 9579-7 #### [facility] ([id number]) [address] [place], [place] [address] #### CMP, CBCA #### [facility] ([id number]) [address] [place] [address] 91375 RBC COUNT 4.88 X10E12/L Normal 4.10-5.70 [facility] Comment on above: Performed By: #### 8 9579-7 #### [facility] ([id number]) [address] [place] [address] #### CMP, CBCA #### [facility] ([id number]) [address] [place] [address] 34097 WBC (Bld) [#/Vol] 7.3 10*3/uL Normal 4.0-11.0 [facility] Comment on above: Performed By: #### 8 9579-7 #### [facility] ([id number]) [address] [place], [place] [address] #### CMP, CBCA #### [facility] ([id number]) [address] [place] [address] 82602 COMPREHENSIVE METABOLIC PANE [facility] 09-14-2024 Albumin [Mass/Vol] 3.8 g/dL Normal 3.2-5.3 [facility] Comment on above: Performed By: #### 8 9579-7 #### [facility] ([id number]) [address] [place] [address] #### CMP, CBCA #### [facility] ([id number]) [address] [place] [address] 18083 ALP [Catalytic activity/Vol] 77 U/L Normal 39-130 [facility] Comment on above: Performed By: #### 8 9579-7 #### [facility] ([id number]) [address] [place] [address] #### CMP, CBCA #### [facility] ([id number]) [address] [place] [address] 70604 ALT [Catalytic activity/Vol] 37 U/L Normal 0-40 [facility] Comment on above: Performed By: #### 8 9579-7 #### [facility] ([id number]) [address] [place] [address]0577 #### CMP, CBCA #### [facility] ([id number]) [address] [place] [address] 73882 Anion gap [Moles/Vol] 6 mmol/L Normal 5-15 [facility] Comment on above: Performed By: #### 8 9579-7 #### [facility] ([id number]) [address] [place] [address]855 #### CMP, CBCA #### [facility] ([id number]) [address] [place] [address] 96017 AST [Catalytic activity/Vol] 30 U/L Normal 0-41 [facility] Comment on above: Performed By: #### 8 9579-7 #### [facility] ([id number]) [address] [place] [address] 62778 #### CMP, CBCA #### [facility] ([id number]) [address] [place] [address] 81688 Bilirubin [Mass/Vol] 1.0 mg/dL Normal 0.3-1.2 [facility] Comment on above: Performed By: #### 8 9579-7 #### [facility] ([id number]) [address] [place] [address] 79189 #### CMP, CBCA #### [facility] ([id number]) [address] [place] [address] 33370 Calcium [Mass/Vol] 8.6 mg/dL Normal 8.5-10.5 [facility] Comment on above: Performed By: #### 8 9579-7 #### [facility] ([id number]) [address] [place] [address] #### CMP, CBCA #### [facility] ([id number]) [address] [place] [address] 91605 Chloride [Moles/Vol] 108 mmol/L Normal 98-109 [facility] Comment on above: Performed By: #### 8 9579-7 #### [facility] ([id number]) [address] [place] [address] #### CMP, CBCA #### [facility] ([id number]) [address] [place] [address] 00611 CO2 [Moles/Vol] 22 mmol/L Normal 22-32 [facility] Comment on above: Performed By: #### 8 9579-7 #### [facility] ([id number]) [address] [place], [place] [address] #### CMP, CBCA #### [facility] ([id number]) [address] [place] [address] 98440 Creatinine [Mass/Vol] 1.82 mg/dL High 0.70-1.20 [facility] Comment on above: Result Comment: METH OD TRACEABLE TO IDMS STANDARD Performed By: #### 8 9579-7 #### [facility] ([id number]) [address] [place] [address] #### CMP, CBCA #### [facility] ([id number]) [address] [place] [address] 81116 GFR/1.73 sq M.predicted among non-blacks MDRD (S/P/Bld) [Vol rate/Area] 38 mL/min/{1.73_m2} Low >59 [facility] Comment on above: Result Comment: Reported eGFR is based on the CKD-EPI 2020 equation that does not use a race coefficient. Performed By: #### 8 9579-7 #### [facility] ([id number]) [address] [place] [address] #### CMP, CBCA #### [facility] ([id number]) [address] [place] [address] 66496 Glucose [Mass/Vol] 99 mg/dL Normal 65-99 [facility] Comment on above: Performed By: #### 8 9579-7 #### [facility] ([id number]) [address] [place] [address] #### FATOUMATA, CBCA #### [facility] ([id number]) [address] [place] [address] 69394 Potassium [Moles/Vol] 4.3 mmol/L Normal 3.5-5.0 [facility] Comment on above: Performed By: #### 8 9579-7 #### [facility] ([id number]) [address] [place], [place] [address] #### FATOUMATA, CBCA #### [facility] ([id number]) [address] [place] [address] 01510 Protein [Mass/Vol] 6.8 g/dL Normal 6.0-8.0 [facility] Comment on above: Performed By: #### 8 9579-7 #### [facility] ([id number]) [address] [place], [place] [address] #### CMP, CBCA #### [facility] ([id number]) [address] [place] [address] 07037 Sodium [Moles/Vol] 136 mmol/L Normal 134-146 [facility] Comment on above: Performed By: #### 8 9579-7 #### [facility] ([id number]) [address] [place] [address] 32612 #### CMP, CBCA #### [facility] ([id number]) [address] [place] [address] 88647 Urea nitrogen [Mass/Vol] 29 mg/dL High 5-27 [facility] Comment on above: Performed By: #### 8 9579-7 #### [facility] ([id number]) [address] [place] [address] #### CMP, CBCA #### [facility] ([id number]) [address] [place] [address] 51492 Glucose Glucometer (BldC) [M ass/Vol]on 09-14-2024 Glucose [Mass/Vol] 101 mg/dL High 65-99 [facility] MAGNESIUMon 09-14-2024 Magnesium [Mass/Vol] 2.0 mg/dL Normal 1.8-2.6 [facility] Comment on above: Performed By: #### 8 9579-7 #### [facility] ([id number]) [address] [place] [address] #### CMP, CBCA #### [facility] ([id number]) [address] [place] [address] 93196 SARS/FLU A+B/RSV by NAAT/Mol ecularon 09-14-2024 SARS/FLU A+B/RSV by NAAT/Molecular FLU A PCR Negative (qualifier value) FLU B PCR Negative (qualifier value) RSV by PCR Negative (qualifier value) SARS CoV 2 Not detected (qualifier value) NOTE The Xpert Xpress SARS-CoV-2/Flu/RSV Plus test is a rapid, multiplexed real-time RT-PCR test intended for the simultaneous qualitative detection and differentiation of SARS-CoV-2, influenza A, influenza B and respiratory syncytial virus (RSV) viral RNA from individuals suspected of respiratory viral infection consistent with COVID-19 by their healthcare provider. This test has not been validated in asymptomatic patients. The Xpert Xpress SARS-CoV-2 test is intended for use by qualified and trained operators who are performing tests using either [employer] DX or [employer]pert iClinical systems and is limited to laboratories that [...] acute phase of infection. Positive results are indicative of the presence of the identified virus, [...] specimen repeat. Fact Sheet for Healthcare Providers: https://www.fda.gov/m edia/768946/download Fact Sheet for Patients: https://www.fda.gov/m edia/836361/download Normal [facility] Comment on above: Performed By: #### 8 9579-7 #### [facility] ([id number]) [address] [place] [address] #### CMP, CBCA #### [facility] ([id number]) [address] [place] [address] 17309 Troponin I.cardiac High sens itivity method [Mass/Vol]on 09-14-2024 1 HOUR TROP I, HIGH SENSITIVITY 4 ng/L Normal <21 [facility] Comment on above: Performed By: #### 8 9579-7 #### [facility] ([id number]) [address] [place] [address] #### CMP, CBCA #### [facility] ([id number]) [address] [facility], [place] [address] TROPONIN I, HIGH SENSITIVITY 5 ng/L Normal <21 [facility] Comment on above: Performed By: #### 8 9579-7 #### [facility] ([id number]) [address] [place] [address] 19006 #### CMP, CBCA #### [facility] ([id number]) [address] [facility] [place] [address] MR LUMBAR SPINE WO CONTRASTo n 08-23-2024 [...] Not Available CBC AND AUTO DIFFon 08-12-20 ABSOLUTE BASOPHIL 0.0 X10E9/L Normal 0.0-0.2 [facility] Comment on above: Performed By: #### 8 9579-7 #### [facility] ([id number]) [address] [place] [address] #### CMP, CBCA #### [facility] ([id number]) [address] [place] [address] 85788 ABSOLUTE NEUTROPHIL 5.7 X10E9/L Normal 1.5-6.6 [facility] Comment on above: Performed By: #### 8 9579-7 #### [facility] ([id number]) [address] [place] [address] #### CMP, CBCA #### [facility] ([id number]) [address] [place] [address] 18146 Basophils/100 WBC (Bld) 0.4 % Normal [facility] Comment on above: Performed By: #### 8 9579-7 #### [facility] ([id number]) [address] [place] [address] #### CMP, CBCA #### [facility] ([id number]) [address] [place] [address] 15773 Eosinophils (Bld) [#/Vol] 0.2 10*3/uL Normal 0.0-0.4 [facility] Comment on above: Performed By: #### 8 9579-7 #### [facility] ([id number]) [address] [place] [address] 93519 #### CMP, CBCA #### [facility] ([id number]) [address] [place] [address] 80842 Eosinophils/100 WBC (Bld) 2.1 % Normal [facility] Comment on above: Performed By: #### 8 9579-7 #### [facility] ([id number]) [address] [place] [address] #### CMP, CBCA #### [facility] ([id number]) [address] [place] [address]28 Erythrocyte distribution width (RBC) [Ratio] 14.6 % Normal 11.5-15.0 [facility] Comment on above: Performed By: #### 8 9579-7 #### [facility] ([id number]) [address] [place], [place] [address] #### CMP, CBCA #### [facility] ([id number]) [address] [place] [address] 47866 Hematocrit (Bld) [Volume fraction] 40.5 % Normal 39-49 [facility] Comment on above: Performed By: #### 8 9579-7 #### [facility] ([id number]) [address] [place], [place] [id number] #### CMP, CBCA #### [facility] ([id number]) [address] [place] [id number] Hemoglobin (Bld) [Mass/Vol] 13.5 g/dL Normal 13.0-17.0 [facility] Comment on above: Performed By: #### 8 9579-7 #### [facility] ([id number]) [address] [place], [place] [address] #### CMP, CBCA #### [facility] ([id number]) [address] [place] [address]183 Lymphocytes (Bld) [#/Vol] 1.9 10*3/uL Normal 1.0-3.5 [facility] Comment on above: Performed By: #### 8 9579-7 #### [facility] ([id number]) [address] [place] [address] #### CMP, CBCA #### [facility] ([id number]) [address] [place] [address] 92240 Lymphocytes/100 WBC (Bld) 22.0 % Normal [facility] Comment on above: Performed By: #### 8 9579-7 #### [facility] ([id number]) [address] [place] [address] #### CMP, CBCA #### [facility] ([id number]) [address] [place] [address] 05953 MCH (RBC) [Entitic mass] 29.8 pg Normal 27-34 [facility] Comment on above: Performed By: #### 8 9579-7 #### [facility] ([id number]) [address] [place] [address] #### CMP, CBCA #### [facility] ([id number]) [address] [place] [address] 78440 MCHC (RBC) [Mass/Vol] 33.5 g/dL Normal 32-36 [facility] Comment on above: Performed By: #### 8 9579-7 #### [facility] ([id number]) [address] [place] [address] #### CMP, CBCA #### [facility] ([id number]) [address] [place] [address] 09310 MCV (RBC) [Entitic vol] 89 fL Normal 80-100 [facility] Comment on above: Performed By: #### 8 9579-7 #### [facility] ([id number]) [address] [place], [place] [address] #### CMP, CBCA #### [facility] ([id number]) [address] [place] [address] 78875 Monocytes (Bld) [#/Vol] 0.8 10*3/uL Normal 0-0.9 [facility] Comment on above: Performed By: #### 8 9579-7 #### [facility] ([id number]) [address] [place] [address] #### CMP, CBCA #### [facility] ([id number]) [address] [place] [address] 42589 Monocytes/100 WBC (Bld) 9.4 % Normal [facility] Comment on above: Performed By: #### 8 9579-7 #### [facility] ([id number]) [address] [place] [address] #### CMP, CBCA #### [facility] ([id number]) [address] [place] [address] 44484 Neutrophils/100 WBC (Bld) 66.1 % Normal [facility] Comment on above: Performed By: #### 8 9579-7 #### [facility] ([id number]) [address] [place], [place] [address] #### CMP, CBCA #### [facility] ([id number]) [address] [place] [address] 41259 Platelet mean volume (Bld) [Entitic vol] 8.0 fL Normal 7-12 [facility] Comment on above: Performed By: #### 8 9579-7 #### [facility] ([id number]) [address] [place], [place] [address] #### CMP, CBCA #### [facility] ([id number]) [address] [place] [address] 45632 Platelets (Bld) [#/Vol] 158 10*3/uL Normal 150-450 [facility] Comment on above: Performed By: #### 8 9579-7 #### [facility] ([id number]) [address] [place] [address] #### CMP, CBCA #### [facility] ([id number]) [address] [place] [address] 07458 RBC COUNT 4.55 X10E12/L Normal 4.10-5.70 [facility] Comment on above: Performed By: #### 8 9579-7 #### [facility] ([id number]) [address] [place] [address] #### CMP, CBCA #### [facility] ([id number]) [address] [place] [address] 03721 WBC (Bld) [#/Vol] 8.7 10*3/uL Normal 4.0-11.0 [facility] Comment on above: Performed By: #### 8 9579-7 #### [facility] ([id number]) [address] [place], [place] [address] #### CMP, CBCA #### [facility] ([id number]) [address] [place] [address] 68796 CBC AND AUTO DIFFon 08-11-20 24 ABSOLUTE BASOPHIL 0.0 X10E9/L Normal 0.0-0.2 [facility] Comment on above: Performed By: #### 8 9579-7 #### [facility] ([id number]) [address] [place], [place] [address] #### CMP, CBCA #### [facility] ([id number]) [address] [place] [address] 55193 ABSOLUTE NEUTROPHIL 7.5 X10E9/L High 1.5-6.6 [facility] Comment on above: Performed By: #### 8 9579-7 #### [facility] ([id number]) [address] [place] [address] #### CMP, CBCA #### [facility] ([id number]) [address] [place] [address] 65814 Basophils/100 WBC (Bld) 0.3 % Normal [facility] Comment on above: Performed By: #### 8 9579-7 #### [facility] ([id number]) [address] [place] [address] #### CMP, CBCA #### [facility] ([id number]) [address] [place] [address] 18423 Eosinophils (Bld) [#/Vol] 0.2 10*3/uL Normal 0.0-0.4 [facility] Comment on above: Performed By: #### 8 9579-7 #### [facility] ([id number]) [address] [place] [address] #### CMP, CBCA #### [facility] ([id number]) [address] [place] [address] 83952 Eosinophils/100 WBC (Bld) 1.5 % Normal [facility] Comment on above: Performed By: #### 8 9579-7 #### [facility] ([id number]) [address] [place] [address] #### CMP, CBCA #### [facility] ([id number]) [address] [place] [address] 73250 Erythrocyte distribution width (RBC) [Ratio] 14.7 % Normal 11.5-15.0 [facility] Comment on above: Performed By: #### 8 9579-7 #### [facility] ([id number]) [address] [place] [address] 44324 #### CMP, CBCA #### [facility] ([id number]) [address] [place] [address] 07456 Hematocrit (Bld) [Volume fraction] 41.8 % Normal 39-49 [facility] Comment on above: Performed By: #### 8 9579-7 #### [facility] ([id number]) [address] [place], [place] [address] #### CMP, CBCA #### [facility] ([id number]) [address] [place] [address] 13347 Hemoglobin (Bld) [Mass/Vol] 13.9 g/dL Normal 13.0-17.0 [facility] Comment on above: Performed By: #### 8 9579-7 #### [facility] ([id number]) [address] [place], [place] [address] #### CMP, CBCA #### [facility] ([id number]) [address] [place] [address] 61863 Lymphocytes (Bld) [#/Vol] 1.5 10*3/uL Normal 1.0-3.5 [facility] Comment on above: Performed By: #### 8 9579-7 #### [facility] ([id number]) [address] [place], [place] [address] #### CMP, CBCA #### [facility] ([id number]) [address] [place] [address] 12215 Lymphocytes/100 WBC (Bld) 14.7 % Normal [facility] Comment on above: Performed By: #### 8 9579-7 #### [facility] ([id number]) [address] [place], [place] [address] #### CMP, CBCA #### [facility] ([id number]) [address] [place] [address] 70937 MCH (RBC) [Entitic mass] 29.5 pg Normal 27-34 [facility] Comment on above: Performed By: #### 8 9579-7 #### [facility] ([id number]) [address] [place] [address] #### CMP, CBCA #### [facility] ([id number]) [address] [place] [address] 96126 MCHC (RBC) [Mass/Vol] 33.2 g/dL Normal 32-36 [facility] Comment on above: Performed By: #### 8 9579-7 #### [facility] ([id number]) [address] [place] [address] #### CMP, CBCA #### [facility] ([id number]) [address] [place] [address] 51608 MCV (RBC) [Entitic vol] 89 fL Normal 80-100 [facility] Comment on above: Performed By: #### 8 9579-7 #### [facility] ([id number]) [address] [place] [address] #### CMP, CBCA #### [facility] ([id number]) [address] [place] [address] 59410 Monocytes (Bld) [#/Vol] 0.9 10*3/uL Normal 0-0.9 [facility] Comment on above: Performed By: #### 8 9579-7 #### [facility] ([id number]) [address] [place] [address] #### CMP, CBCA #### [facility] ([id number]) [address] [place] [address] 54800 Monocytes/100 WBC (Bld) 9.2 % Normal [facility] Comment on above: Performed By: #### 8 9579-7 #### [facility] ([id number]) [address] [place] [address] 91615 #### CMP, CBCA #### [facility] ([id number]) [address] [place] [address] 42311 Neutrophils/100 WBC (Bld) 74.3 % Normal [facility] Comment on above: Performed By: #### 8 9579-7 #### [facility] ([id number]) [address] [place], [place] [address] #### CMP, CBCA #### [facility] ([id number]) [address] [place] [address] 80813 Platelet mean volume (Bld) [Entitic vol] 7.8 fL Normal 7-12 [facility] Comment on above: Performed By: #### 8 9579-7 #### [facility] ([id number]) [address] [place], [place] [address] #### CMP, CBCA #### [facility] ([id number]) [address] [place] [address] 02133 Platelets (Bld) [#/Vol] 154 10*3/uL Normal 150-450 [facility] Comment on above: Performed By: #### 8 9579-7 #### [facility] ([id number]) [address] [place] [address] 20713 #### CMP, CBCA #### [facility] ([id number]) [address] [place] [address] 00644 RBC COUNT 4.70 X10E12/L Normal 4.10-5.70 [facility] Comment on above: Performed By: #### 8 9579-7 #### [facility] ([id number]) [address] [place], [place] [address] #### CMP, CBCA #### [facility] ([id number]) [address] [place] [address] 74740 WBC (Bld) [#/Vol] 10.1 10*3/uL Normal 4.0-11.0 [facility] Comment on above: Performed By: #### 8 9579-7 #### [facility] ([id number]) [address] [place] [address] 70983 #### CMP, CBCA #### [facility] ([id number]) [address] [place] [address] 71521 Folate [Mass/Vol]on 08-11-20 24 FOLIC ACID 9.5 ng/mL Normal >5.8 [facility] Comment on above: Result Comment: NEW REFERENCE RANGE Performed By: #### 8 9579-7 #### [facility] ([id number]) [address] [place] [address] #### CMP, CBCA #### [facility] ([id number]) [address] [place] [address] 90371 Heavy metals panel (Bld)on 10-11-2023 Arsenic, B <1 Normal <13 [facility] Comment on above: Result Comment: NOTE ADDITIONAL INFORMATION This test was developed and its performance characteristics determined by [facility] in a manner consistent with CLIA requirements. This test has not been cleared or approved by the U.S. Food and Drug Administration. Performed By: #### 8 9579-7 #### [facility] ([id number]) [address] [place] [address] 03558 #### CMP, CBCA #### [facility] ([id number]) [address] [place] [address] 28096 Cadmium, B 0.6 ng/mL Normal <5.0 [facility] Comment on above: Result Comment: NOTE ADDITIONAL INFORMATION This test was developed and its performance characteristics determined by [facility] in a manner consistent with CLIA requirements. This test has not been cleared or approved by the U.S. Food and Drug Administration. Performed By: #### 8 9579-7 #### [facility] ([id number]) [address] [place] [address] #### FATOUMATA, CBCA #### [facility] ([id number]) [address] [place] [address] 61894 Lead, B 4.5 mcg/dL High <3.5 [facility] Comment on above: Result Comment: NOTE ADDITIONAL INFORMATION Testing performed by Triple Quadrupole Inductively Coupled Plasma-Mass Spectrometry (ICP-MS/MS). This test was developed and its performance characteristics determined by [facility] in a manner consistent with CLIA requirements. This test has not been cleared or approved by the U.S. Food and Drug Administration. Performed By: #### 8 9579-7 #### [facility] ([id number]) [address] [place] [address] #### FATOUMATA, CBCA #### [facility] ([id number]) [address] [place] [address] 44580 Mercury, B <1 Normal <10 [facility] Comment on above: Result Comment: NOTE ADDITIONAL INFORMATION This test was developed and its performance characteristics determined by [facility] in a manner consistent with CLIA requirements. This test has not been cleared or approved by the U.S. Food and Drug Administration. Performed By: #### 8 9579-7 #### [facility] ([id number]) [address] [place] [address] #### CMP, CBCA #### [facility] ([id number]) [address] [place] [address] 66439 Venous/Capillary Venous Normal [facility] Comment on above: Performed By: #### 8 9579-7 #### [facility] ([id number]) [address] [place] [address] 18422 #### CMP, CBCA #### [facility] ([id number]) [address] [place] [address] 01051 Lipid 1996 panelon 4 Cholesterol [Mass/Vol] 112 mg/dL Low 150-200 [facility] Comment on above: Performed By: #### 8 9579-7 #### [facility] ([id number]) [address] [place] [address] 86309 #### CMP, CBCA #### [facility] ([id number]) [address] [place] [address] 25612 Cholesterol in HDL [Mass/Vol] 46 mg/dL Normal >39 [facility] Comment on above: Result Comment: HDL <40 mg/dL - High Risk HDL > or = 40mg/dL- Desirable HDL >60 mg/dL - Negative Risk Performed By: #### 8 9579-7 #### [facility] ([id number]) [address] [place] [address] 29260 #### CMP, CBCA #### [facility] ([id number]) [address] [place] [address] 64797 Cholesterol in LDL [Mass/Vol] 51 mg/dL Normal <130 [facility] Comment on above: Result Comment: LDL <100 mg/dL - Desirable LDL >160 mg/dL - High Risk Performed By: #### 8 9579-7 #### [facility] ([id number]) [address] [place] [address] #### CMP, CBCA #### [facility] ([id number]) [address] [place] [address] 36305 Cholesterol in VLDL [Mass/Vol] 15 mg/dL Normal 0-30 [facility] Comment on above: Performed By: #### 8 9579-7 #### [facility] ([id number]) [address] [place] [address] #### CMP, CBCA #### [facility] ([id number]) [address] [place] [address] 44810 CHOLESTEROL:HDL 2.4 Normal 1.0-5.0 [facility] Comment on above: Performed By: #### 8 9579-7 #### [facility] ([id number]) [address] [place] [address] #### CMP, CBCA #### [facility] ([id number]) [address] [place] [address] 16302 Triglyceride [Mass/Vol] 74 mg/dL Normal 27-150 [facility] Comment on above: Performed By: #### 8 9579-7 #### [facility] ([id number]) [address] [place] [address] #### CMP, CBCA #### [facility] ([id number]) [address] [place] [address] 44008 MR BRAIN WO CONTon 4 MR BRAIN [...] Hurst MD on 08/11/2024 10:04 AM Normal [facility] SERUM PROTEIN ELECTROPHORESI Son 08-11-2024 Albumin [Mass/Vol] 3.7 g/dL Normal 3.4-5.3 [facility] Comment on above: Performed By: #### 8 9579-7 #### [facility] ([id number]) [address] [place] [address] #### FATOUMATA CBCA #### [facility] ([id number]) [address] [place] [address] 75462 ALPHA 1 GLOBULIN 0.3 g/dL Normal 0.1-0.[address] [facility] Comment on above: Performed By: #### 8 9579-7 #### [facility] ([id number]) [address] [place] [address] #### CMP, CBCA #### [facility] ([id number]) [address] [place] [address] 34843 ALPHA 2 GLOBULIN 0.8 g/dL Normal 0.4-1.[address] [facility] Comment on above: Performed By: #### 8 9579-7 #### [facility] ([id number]) [address] [place] [address] 83822 #### CMP, CBCA #### [facility] ([id number]) [address] [place] [address] 58890 BETA GLOBULIN 0.9 g/dL Normal 0.5-1.2 [facility] Comment on above: Performed By: #### 8 9579-7 #### [facility] ([id number]) [address] [place] [address] 09445 #### CMP, CBCA #### [facility] ([id number]) [address] [place] [address] 95285 GAMMA GLOBULIN 0.8 g/dL Normal 0.5-1.6 [facility] Comment on above: Performed By: #### 8 9579-7 #### [facility] ([id number]) [address] [place], [place] [address] #### CMP, CBCA #### [facility] ([id number]) [address] [place] [address] 80710 PROT. ELECTROPHORESIS INTERP Unremarkable protein distribution, no monoclonal bands. Normal [facility] Comment on above: Performed By: #### 8 9579-7 #### [facility] ([id number]) [address] [place] [address] 32110 #### CMP, CBCA #### [facility] ([id number]) [address] [place] [address] 84473 Protein [Mass/Vol] 6.5 g/dL Normal 6.0-8.0 [facility] Comment on above: Performed By: #### 8 9579-7 #### [facility] ([id number]) [address] [place] [address] 17982 #### CMP, CBCA #### [facility] ([id number]) [address] [place] [address] 62435 Troponin I.cardiac High sens itivity method [Mass/Vol]on 08-11-2024 1 HOUR TROP I, HIGH SENSITIVITY 5 ng/L Normal <21 [facility] Comment on above: Performed By: #### 8 9579-7 #### [facility] ([id number]) [address] [place] [address] 11204 #### CMP, CBCA #### [facility] ([id number]) [address] [place] [address] 04305 TROPONIN I, HIGH SENSITIVITY 5 ng/L Normal <21 [facility] Comment on above: Performed By: #### 8 9579-7 #### [facility] ([id number]) [address] [place] [address] 26657 #### CMP, CBCA #### [facility] ([id number]) [address] [place] [address] 63370 VITAMIN B12on 08-11-2024 Cobalamin (Vitamin B12) [Mass/Vol] 202 pg/mL Normal 180-914 [facility] Comment on above: Performed By: #### 8 9579-7 #### [facility] ([id number]) [address] [place] [address] 90079 #### CMP, CBCA #### [facility] ([id number]) [address] [place] [address] 79202 BASIC METABOLIC PANLon 08-10 Anion gap [Moles/Vol] 9 mmol/L Normal 5-15 [facility] Comment on above: Performed By: #### 8 9579-7 #### [facility] ([id number]) [address] [place] [address] 10717 #### CMP, CBCA #### [facility] ([id number]) [address] [place] [address] 60202 Calcium [Mass/Vol] 8.4 mg/dL Low 8.5-10.5 [facility] Comment on above: Performed By: #### 8 9579-7 #### [facility] ([id number]) [address] [place] [address] 05393 #### CMP, CBCA #### [facility] ([id number]) [address] [place] [address] 21825 Chloride [Moles/Vol] 104 mmol/L Normal 98-109 [facility] Comment on above: Performed By: #### 8 9579-7 #### [facility] ([id number]) [address] [place], [place] [address] #### CMP, CBCA #### [facility] ([id number]) [address] [place] [address] 89659 CO2 [Moles/Vol] 24 mmol/L Normal 22-32 [facility] Comment on above: Performed By: #### 8 9579-7 #### [facility] ([id number]) [address] [place] [address] 23802 #### CMP, CBCA #### [facility] ([id number]) [address] [place] [address] 69404 Creatinine [Mass/Vol] 1.40 mg/dL High 0.70-1.20 [facility] Comment on above: Result Comment: METH OD TRACEABLE TO IDMS STANDARD Performed By: #### 8 9579-7 #### [facility] ([id number]) [address] [place] [address] 86567 #### CMP, CBCA #### [facility] ([id number]) [address] [place] [address] 98331 GFR/1.73 sq M.predicted among non-blacks MDRD (S/P/Bld) [Vol rate/Area] 52 mL/min/{1.73_m2} Low >59 [facility] Comment on above: Result Comment: Reported eGFR is based on the CKD-EPI 2020 equation that does not use a race coefficient. Performed By: #### 8 9579-7 #### [facility] ([id number]) [address] [place] [address] 48009 #### CMP, CBCA #### [facility] ([id number]) [address] [place] [address] 13796 Glucose [Mass/Vol] 103 mg/dL High 65-99 [facility] Comment on above: Performed By: #### 8 9579-7 #### [facility] ([id number]) [address] [place] [address] #### CMP, CBCA #### [facility] ([id number]) [address] [place] [address] 30243 Potassium [Moles/Vol] 4.3 mmol/L Normal 3.5-5.0 [facility] Comment on above: Performed By: #### 8 9579-7 #### [facility] ([id number]) [address] [place], [place] [address] #### CMP, CBCA #### [facility] ([id number]) [address] [place] [address] 77497 Sodium [Moles/Vol] 137 mmol/L Normal 134-146 [facility] Comment on above: Performed By: #### 8 9579-7 #### [facility] ([id number]) [address] [place], [place] [address] #### CMP, CBCA #### [facility] ([id number]) [address] [place] [address] 62965 Urea nitrogen [Mass/Vol] 19 mg/dL Normal 5-27 [facility] Comment on above: Performed By: #### 8 9579-7 #### [facility] ([id number]) [address] [place], [place] [address] #### CMP, CBCA #### [facility] ([id number]) [address] [place] [address] 60247 CBC AND AUTO DIFFon 08-10-20 24 ABSOLUTE BASOPHIL 0.1 X10E9/L Normal 0.0-0.2 [facility] Comment on above: Performed By: #### 8 9579-7 #### [facility] ([id number]) [address] [place] [address] #### CMP, CBCA #### [facility] ([id number]) [address] [place] [address] 63708 ABSOLUTE NEUTROPHIL 8.2 X10E9/L High 1.5-6.6 [facility] Comment on above: Performed By: #### 8 9579-7 #### [facility] ([id number]) [address] [place] [address] #### CMP, CBCA #### [facility] ([id number]) [address] [place] [address] 42246 Basophils/100 WBC (Bld) 0.5 % Normal [facility] Comment on above: Performed By: #### 8 9579-7 #### [facility] ([id number]) [address] [place] [address] #### CMP, CBCA #### [facility] ([id number]) [address] [place] [address] 16645 Eosinophils (Bld) [#/Vol] 0.1 10*3/uL Normal 0.0-0.4 [facility] Comment on above: Performed By: #### 8 9579-7 #### [facility] ([id number]) [address] [place], [place] [address] #### CMP, CBCA #### [facility] ([id number]) [address] [place] [address] 34097 Eosinophils/100 WBC (Bld) 1.3 % Normal [facility] Comment on above: Performed By: #### 8 9579-7 #### [facility] ([id number]) [address] [place], [place] [address] #### CMP, CBCA #### [facility] ([id number]) [address] [place] [address] 93175 Erythrocyte distribution width (RBC) [Ratio] 14.9 % Normal 11.5-15.0 [facility] Comment on above: Performed By: #### 8 9579-7 #### [facility] ([id number]) [address] [place], [place] [address] #### CMP, CBCA #### [facility] ([id number]) [address] [place] [address] 14213 Hematocrit (Bld) [Volume fraction] 41.2 % Normal 39-49 [facility] Comment on above: Performed By: #### 8 9579-7 #### [facility] ([id number]) [address] [place], [place] [address] #### CMP, CBCA #### [facility] ([id number]) [address] [place] [address] 86241 Hemoglobin (Bld) [Mass/Vol] 13.8 g/dL Normal 13.0-17.0 [facility] Comment on above: Performed By: #### 8 9579-7 #### [facility] ([id number]) [address] [place], [place] [address] #### CMP, CBCA #### [facility] ([id number]) [address] [place] [address] 97355 Lymphocytes (Bld) [#/Vol] 1.5 10*3/uL Normal 1.0-3.5 [facility] Comment on above: Performed By: #### 8 9579-7 #### [facility] ([id number]) [address] [place] [address] #### CMP, CBCA #### [facility] ([id number]) [address] [place] [address] 05451 Lymphocytes/100 WBC (Bld) 14.0 % Normal [facility] Comment on above: Performed By: #### 8 9579-7 #### [facility] ([id number]) [address] [place] [address] #### CMP, CBCA #### [facility] ([id number]) [address] [place] [address] 87491 MCH (RBC) [Entitic mass] 29.8 pg Normal 27-34 [facility] Comment on above: Performed By: #### 8 9579-7 #### [facility] ([id number]) [address] [place] [address] #### CMP, CBCA #### [facility] ([id number]) [address] [place] [address] 26246 MCHC (RBC) [Mass/Vol] 33.6 g/dL Normal 32-36 [facility] Comment on above: Performed By: #### 8 9579-7 #### [facility] ([id number]) [address] [place], [place] [address] #### CMP, CBCA #### [facility] ([id number]) [address] [place] [address] 99708 MCV (RBC) [Entitic vol] 89 fL Normal 80-100 [facility] Comment on above: Performed By: #### 8 9579-7 #### [facility] ([id number]) [address] [place] [address] #### CMP, CBCA #### [facility] ([id number]) [address] [place] [address] 20471 Monocytes (Bld) [#/Vol] 0.9 10*3/uL Normal 0-0.9 [facility] Comment on above: Performed By: #### 8 9579-7 #### [facility] ([id number]) [address] [place] [address] #### CMP, CBCA #### [facility] ([id number]) [address] [place] [address] 87579 Monocytes/100 WBC (Bld) 8.0 % Normal [facility] Comment on above: Performed By: #### 8 9579-7 #### [facility] ([id number]) [address] [place] [address] #### CMP, CBCA #### [facility] ([id number]) [address] [place] [address] 05226 Neutrophils/100 WBC (Bld) 76.2 % Normal [facility] Comment on above: Performed By: #### 8 9579-7 #### [facility] ([id number]) [address] [place], [place] [address] #### CMP, CBCA #### [facility] ([id number]) [address] [place] [address] 28668 Platelet mean volume (Bld) [Entitic vol] 8.1 fL Normal 7-12 [facility] Comment on above: Performed By: #### 8 9579-7 #### [facility] ([id number]) [address] [place] [address] #### CMP, CBCA #### [facility] ([id number]) [address] [place] [address] 26288 Platelets (Bld) [#/Vol] 150 10*3/uL Normal 150-450 [facility] Comment on above: Performed By: #### 8 9579-7 #### [facility] ([id number]) [address] [place] [address] 33380 #### CMP, CBCA #### [facility] ([id number]) [address] [place] [address] 19429 RBC COUNT 4.64 X10E12/L Normal 4.10-5.70 [facility] Comment on above: Performed By: #### 8 9579-7 #### [facility] ([id number]) [address] [place] [address] 8[address] #### CMP, CBCA #### [facility] ([id number]) [address] [place] [address] 31100 WBC (Bld) [#/Vol] 10.8 10*3/uL Normal 4.0-11.0 [facility] Comment on above: Performed By: #### 8 9579-7 #### [facility] ([id number]) [address] [place] [address] #### CMP, CBCA #### [facility] ([id number]) [address] [place] [address] BRAIN WO CONT STROKE GERMANR Mook 08-10-2024 CT BRAIN WO CONT STROKE ALERT [...] Porras MD on 08/10/2024 11:23 AM Normal [facility] CT CTA CAROTIDon 08-10-2024 CT CTA [...] Automated exposure control was utilized. The [place] Symptomatic Carotid Endarterectomy Trial (NASCET)calculation of ICA [...] Porras MD on 08/10/2024 11:38 AM Normal [facility] CT CTA HEADon 08-10-2024 CT CTA [...] sinuses. IMPRESSION: * Unremarkable CTA of the [place] of [place]. No high grade arterial stenosis, large vessel occlusion or aneurysm, within confines of venous contamination. * MRI is the most sensitive to assess for ischemic changes if clinically warranted. Finalized by Jesse Kraus on 08/10/2024 11:42 AM Normal [facility] Glucose Glucometer (BldC) [M ass/Vol]on 08-10-2024 Glucose [Mass/Vol] 87 mg/dL Normal 65-99 [facility] HGB A1C (GLYCO-HGB)on 2023 Glucose [Mass/Vol] 105 mg/dL Normal [facility] Comment on above: Performed By: #### 8 9579-7 #### [facility] ([id number]) [address] [place] [address] 58930 #### PARVEZ HAMA #### [facility] ([id number]) [address] [place] [address] [place] [address] HbA1c (Bld) [Mass fraction] 5.3 % Normal 4.4-5.6 [facility] Comment on above: Result Comment: NOTE ADA Guidelines Result HgbA1c Normal : less than 5.7 % Prediabetes : 5.7 % to 6.4 % Diabetes : > 6.4 % Use with caution in patients with abnormal hemoglobin variants as the half-life of red blood cells and in vivo glycation rates are affected. Performed By: #### 8 9579-7 #### [facility] ([id number]) [address] [place] [address] #### CMP, CBCA #### [facility] ([id number]) [address] [place] [address] 70701 PROTIME AND INRon 08-10-2024 INR Coag (PPP) [Relative time] 1.1 {INR} Normal 0.8-1.1 [facility] Comment on above: Performed By: #### 8 9579-7 #### [facility] ([id number]) [address] [place] [address] #### CMP, CBCA #### [facility] ([id number]) [address] [place] [address] 75970 PT Coag (PPP) [Time] 12.6 s Normal 9.8-13.2 [facility] Comment on above: Result Comment: NEW REFERENCE RANGE Performed By: #### 8 9579-7 #### [facility] ([id number]) [address] [place] [address] #### CMP, CBCA #### [facility] ([id number]) [address] [place] [address] 87209 Troponin I.cardiac High sens itivity method [Mass/Vol]on 08-10-2024 1 HOUR TROP I, HIGH SENSITIVITY 4 ng/L Normal <21 [facility] Comment on above: Performed By: #### 8 9579-7 #### [facility] ([id number]) [address] [place] [address] 31345 #### CMP, CBCA #### [facility] ([id number]) [address] [place] [address] 96962 TROPONIN I, HIGH SENSITIVITY 4 ng/L Normal <21 [facility] Comment on above: Performed By: #### 8 9579-7 #### [facility] ([id number]) [address] [place] [address] 83582 #### CMP, CBCA #### [facility] ([id number]) [address] [place] [address] 99827 XR CHEST 1 VIEW STROKEon XR CHEST [...] Porras MD on 08/10/2024 12:31 PM Normal [facility] aPTT Coag (PPP) [Time]on aPTT Coag (Bld) [Time] 32 s Normal 26-37 [facility] Comment on above: Result Comment: NEW REFERENCE RANGE Performed By: #### 8 9579-7 #### [facility] ([id number]) [address] [place] [address] 21762 #### CMP, CBCA #### [facility] ([id number]) [address] [place] [address] 37518 BLOOD CULTURE 1on 06-26-2024 BLOOD CULTURE 1 Blood Culture 1 NG5D NO GROWTH AT 5 DAYS.^NO GROWTH AT 5 DAYS. [facility] BLOOD CULTURE 2on 06-26-2024 BLOOD CULTURE 2 Blood Culture 2 NG5D NO GROWTH AT 5 DAYS.^NO GROWTH AT 5 DAYS. [facility] No Panel Informationon 06-26 [facility] CBC AND AUTO DIFFon 05-18-20 24 Eosinophils (Bld) [#/Vol] 0.1 10*3/uL Normal 0.0-0.4 [facility] Comment on above: Performed By: #### 8 9579-7 #### [facility] ([id number]) [address] [place] [address] #### CMP, CBCA #### [facility] ([id number]) [address] [place] [address] 53203 Eosinophils/100 WBC (Bld) 1.3 % Normal [facility] Comment on above: Performed By: #### 8 9579-7 #### [facility] ([id number]) [address] [place] [address] #### CMP, CBCA #### [facility] ([id number]) [address] [place] [address] 65957 Erythrocyte distribution width (RBC) [Ratio] 15.4 % High 11.5-15.0 [facility] Comment on above: Performed By: #### 8 9579-7 #### [facility] ([id number]) [address] [place] [address] #### CMP, CBCA #### [facility] ([id number]) [address] [place] [address] 33216 Hematocrit (Bld) [Volume fraction] 42.1 % Normal 39-49 [facility] Comment on above: Performed By: #### 8 9579-7 #### [facility] ([id number]) [address] [place] [address] #### CMP, CBCA #### [facility] ([id number]) [address] [place] [address] 73919 Hemoglobin (Bld) [Mass/Vol] 13.9 g/dL Normal 13.0-17.0 [facility] Comment on above: Performed By: #### 8 9579-7 #### [facility] ([id number]) [address] [place] [address] #### CMP, CBCA #### [facility] ([id number]) [address] [place] [address] 67538 Lymphocytes (Bld) [#/Vol] 1.0 10*3/uL Normal 1.0-3.5 [facility] Comment on above: Performed By: #### 8 9579-7 #### [facility] ([id number]) [address] [place] [address] #### CMP, CBCA #### [facility] ([id number]) [address] [place] [address] 65078 Lymphocytes/100 WBC (Bld) 13.2 % Normal [facility] Comment on above: Performed By: #### 8 9579-7 #### [facility] ([id number]) [address] [place] [address] #### CMP, CBCA #### [facility] ([id number]) [address] [place] [address] 51686 MCH (RBC) [Entitic mass] 29.2 pg Normal 27-34 [facility] Comment on above: Performed By: #### 8 9579-7 #### [facility] ([id number]) [address] [place] [address] #### CMP, CBCA #### [facility] ([id number]) [address] [place] [address] 10463 MCHC (RBC) [Mass/Vol] 33.1 g/dL Normal 32-36 [facility] Comment on above: Performed By: #### 8 9579-7 #### [facility] ([id number]) [address] [place] [address] #### CMP, CBCA #### [facility] ([id number]) [address] [place] [address] 14746 MCV (RBC) [Entitic vol] 88 fL Normal 80-100 [facility] Comment on above: Performed By: #### 8 9579-7 #### [facility] ([id number]) [address] [place], [place] [address] #### CMP, CBCA #### [facility] ([id number]) [address] [place] [address] 05868 Monocytes (Bld) [#/Vol] 0.5 10*3/uL Normal 0-0.9 [facility] Comment on above: Performed By: #### 8 9579-7 #### [facility] ([id number]) [address] [place], [place] [address] #### CMP, CBCA #### [facility] ([id number]) [address] [place] [address] 15471 Monocytes/100 WBC (Bld) 6.6 % Normal [facility] Comment on above: Performed By: #### 8 9579-7 #### [facility] ([id number]) [address] [place] [address] 40333 #### CMP, CBCA #### [facility] ([id number]) [address] [place] [address] 38187 Neutrophils (Bld) [#/Vol] 6.1 10*3/uL Normal 1.5-6.6 [facility] Comment on above: Performed By: #### 8 9579-7 #### [facility] ([id number]) [address] [place] [address] 51437 #### CMP, CBCA #### [facility] ([id number]) [address] [place] [address] 35623 Platelet mean volume (Bld) [Entitic vol] 7.4 fL Normal 7-12 [facility] Comment on above: Performed By: #### 8 9579-7 #### [facility] ([id number]) [address] [place] [address] 05933 #### CMP, CBCA #### [facility] ([id number]) [address] [place] [address] 63713 Platelets (Bld) [#/Vol] 134 10*3/uL Low 150-450 [facility] Comment on above: Performed By: #### 8 9579-7 #### [facility] ([id number]) [address] [place] [address] #### CMP, CBCA #### [facility] ([id number]) [address] [place] [address] 18586 RBC COUNT 4.76 X10E12/L Normal 4.10-5.70 [facility] Comment on above: Performed By: #### 8 9579-7 #### [facility] ([id number]) [address] [place] [address] 89269 #### CMP, CBCA #### [facility] ([id number]) [address] [place] [address] 10629 SEG NEUTROPHIL 78.9 % Normal [facility] Comment on above: Performed By: #### 8 9579-7 #### [facility] ([id number]) [address] [place] [address] 26523 #### CMP, CBCA #### [facility] ([id number]) [address] [place] [address] 21004 WBC (Bld) [#/Vol] 7.7 10*3/uL Normal 4.0-11.0 [facility] Comment on above: Performed By: #### 8 9579-7 #### [facility] ([id number]) [address] [place] [address] 53055 #### CMP, CBCA #### [facility] ([id number]) [address] [place] [address] 19433 COMPREHENSIVE METABOLIC PANE Reji 05-18-2024 Albumin [Mass/Vol] 3.9 g/dL Normal 3.2-5.3 [facility] Comment on above: Performed By: #### 8 9579-7 #### [facility] ([id number]) [address] [place] [address] 61310 #### CMP, CBCA #### [facility] ([id number]) [address] [place] [address] 60004 ALP [Catalytic activity/Vol] 92 U/L Normal 39-130 [facility] Comment on above: Performed By: #### 8 9579-7 #### [facility] ([id number]) [address] [place] [address] 00880 #### CMP, CBCA #### [facility] ([id number]) [address] [place] [address] 39382 ALT [Catalytic activity/Vol] 48 U/L High 0-40 [facility] Comment on above: Performed By: #### 8 9579-7 #### [facility] ([id number]) [address] [place] [address] 13833 #### CMP, CBCA #### [facility] ([id number]) [address] [place] [address] 40511 Anion gap [Moles/Vol] 8 mmol/L Normal 5-15 [facility] Comment on above: Performed By: #### 8 9579-7 #### [facility] ([id number]) [address] [place] [address] 83621 #### CMP, CBCA #### [facility] ([id number]) [address] [place] [address] 84100 AST [Catalytic activity/Vol] 29 U/L Normal 0-41 [facility] Comment on above: Performed By: #### 8 9579-7 #### [facility] ([id number]) [address] [place] [address] 00232 #### CMP, CBCA #### [facility] ([id number]) [address] [place] [address] 15502 Bilirubin [Mass/Vol] 1.1 mg/dL Normal 0.3-1.2 [facility] Comment on above: Performed By: #### 8 9579-7 #### [facility] ([id number]) [address] [place] [address] #### CMP, CBCA #### [facility] ([id number]) [address] [place] [address] 56318 Calcium [Mass/Vol] 8.4 mg/dL Low 8.5-10.5 [facility] Comment on above: Performed By: #### 8 9579-7 #### [facility] ([id number]) [address] [place], [place] [address] #### CMP, CBCA #### [facility] ([id number]) [address] [place] [address] 07690 Chloride [Moles/Vol] 103 mmol/L Normal 98-109 [facility] Comment on above: Performed By: #### 8 9579-7 #### [facility] ([id number]) [address] [place], [place] [address] #### CMP, CBCA #### [facility] ([id number]) [address] [place] [address] 56188 CO2 [Moles/Vol] 25 mmol/L Normal 22-32 [facility] Comment on above: Performed By: #### 8 9579-7 #### [facility] ([id number]) [address] [place] [address] 61460 #### RADHA HAM #### [facility] ([id number]) [address] [place] [address] 08756 Creatinine [Mass/Vol] 1.51 mg/dL High 0.70-1.20 [facility] Comment on above: Result Comment: METH OD TRACEABLE TO IDMS STANDARD Performed By: #### 8 9579-7 #### [facility] ([id number]) [address] [place], [place] [address] #### RADHA HAM #### [facility] ([id number]) [address] [place] [address] 36732 GFR/1.73 sq M.predicted among non-blacks MDRD (S/P/Bld) [Vol rate/Area] 47 mL/min/{1.73_m2} Low >59 [facility] Comment on above: Result Comment: Reported eGFR is based on the CKD-EPI 2020 equation that does not use a race coefficient. Performed By: #### 8 9579-7 #### [facility] ([id number]) [address] [place], [place] [address] #### RADHA HAM #### [facility] ([id number]) [address] [place] [address] 60043 Glucose [Mass/Vol] 97 mg/dL Normal 65-99 [facility] Comment on above: Performed By: #### 8 9579-7 #### [facility] ([id number]) [address] [place] [address] 44984 #### RADHA HAM #### [facility] ([id number]) [address] [place] [address] 49678 Potassium [Moles/Vol] 4.6 mmol/L Normal 3.5-5.0 [facility] Comment on above: Performed By: #### 8 9579-7 #### [facility] ([id number]) [address] [place] [address] 45680 #### CMP, CBCA #### [facility] ([id number]) [address] [place] [address] 17629 Protein [Mass/Vol] 6.9 g/dL Normal 6.0-8.0 [facility] Comment on above: Performed By: #### 8 9579-7 #### [facility] ([id number]) [address] [place] [address] #### CMP, CBCA #### [facility] ([id number]) [address] [place] [address] 47871 Sodium [Moles/Vol] 136 mmol/L Normal 134-146 [facility] Comment on above: Performed By: #### 8 9579-7 #### [facility] ([id number]) [address] [place], [place] [address] #### CMP, CBCA #### [facility] ([id number]) [address] [place] [address] 28771 Urea nitrogen [Mass/Vol] 29 mg/dL High 5-27 [facility] Comment on above: Performed By: #### 8 9579-7 #### [facility] ([id number]) [address] [place], [place] [address] #### CMP, CBCA #### [facility] ([id number]) [address] [place] [address] BRAIN WO CONTon CT BRAIN WO [...] Larsen MD on 05/18/2024 7:20 AM Normal [facility] CT CERVICAL SPINE WO CONTon 05-18-2024 [...] Horne MD on 05/18/2024 7:30 AM Normal [facility] Troponin I.cardiac High sens itivity method [Mass/Vol]on 05-18-2024 1 HOUR TROP I, HIGH SENSITIVITY 7 ng/L Normal <21 [facility] Comment on above: Performed By: #### 8 9579-7 #### [facility] ([id number]) [address] [place] [address] TROPONIN I, HIGH SENSITIVITY 7 ng/L Normal <21 [facility] Comment on above: Performed By: #### 8 9579-7 #### [facility] ([id number]) [address] [place] [address] #### CMP, CBCA #### [facility] ([id number]) [address] [place] [address] 74680 URN MACROSCOPIC NURon 2023 BILIRUBIN VAHE Negative Normal NEG [facility] Comment on above: Performed By: #### N UM #### [facility] ([id number]) [address] [place] [address] 55052 BLOOD/HGB VAHE Trace Abnormal NEG [facility] Comment on above: Performed By: #### N UM #### [facility] ([id number]) [address] [place] [address] 25905 GLUCOSE VAHE Negative Normal NEG [facility] Comment on above: Performed By: #### N UM #### [facility] ([id number]) [address] [place] [address] 86688 KETONES VAHE Negative Normal NEG [facility] Comment on above: Performed By: #### N UM #### [facility] ([id number]) [address] [place] [address] 26713 LEUKOCYTE ESTERASE VAHE Negative Normal NEG [facility] Comment on above: Performed By: #### N UM #### [facility] ([id number]) [address] [place] [address] 94396 NITRITE VAHE Negative Normal NEG [facility] Comment on above: Performed By: #### N UM #### [facility] ([id number]) [address] [place] [address] 50033 PH VAHE 7.0 Normal 5.0-8.5 [facility] Comment on above: Performed By: #### N UM #### [facility] ([id number]) [address] [place] [address] 93555 PROTEIN VAHE Negative Normal NEG [facility] Comment on above: Performed By: #### N UM #### [facility] ([id number]) [address] [facility], [place] [address] SPECIFIC GRAVITY VAHE 1.020 Normal 1.003-1.035 [facility] Comment on above: Performed By: #### N UM #### [facility] ([id number]) [address] [place] [address] UROBILINOGEN VAHE 0.2 eu/dL Normal <1.[address] [facility] Comment on above: Performed By: #### N UM #### [facility] ([id number]) [address] [place] [address] 80998 XR CHEST 1 VWon 05-18-2024 XR CHEST [...] Horne MD on 05/18/2024 7:31 AM Normal [facility] XR PELVIS 1 OR 2 VWSon [...] Horne MD on 05/18/2024 7:33 AM Normal [facility] XR CHEST 2 VWSon 05-10-2024 XR [...] Tejada MD on 05/10/2024 1:22 PM Normal [facility] XR Foot Complete Left*on XR Foot Complete Left* FINDINGS: Mild hallux valgus. Mild 1st MTP, interphalangeal joint space loss. Small plantar calcaneal spur. Posterior calcaneal sclerosis can be consistent with stress fracture if clinically suspect. IMPRESSION: 1. Posterior calcaneal findings can be consistent with stress fracture if clinically suspect. Report reported and signed by Vu Moore on 05/13/2022 1312 Normal [facility] C-Reactive Proteinon 022 CRP IV 0.8 mg/dl Normal <5.0 [facility] Comment on above: Performed By: #### C MP, CRP, FT4, LIPD, FT3, ESR, TSH, CBC #### [facility] [address] [place], [place] [id number] Complete Blood Counton 11-10 Erythrocyte distribution width (RBC) [Ratio] 13.9 % Normal 11.0-15.[address] [facility] Comment on above: Performed By: #### C MP, CRP, FT4, LIPD, FT3, ESR, TSH, CBC #### [facility] [address] [place], [place] [id number] Hematocrit (Bld) [Volume fraction] 48.5 % Normal 38.5-50.[address] [facility] Comment on above: Performed By: #### C MP, CRP, FT4, LIPD, FT3, ESR, TSH, CBC #### [facility] [address], [place] [id number] Hemoglobin (Bld) [Mass/Vol] 15.1 g/dL Normal 13.0-17.[address] [facility] Specialist Comment on above: Performed By: #### C MP, CRP, FT4, LIPD, FT3, ESR, TSH, CBC #### [facility] [address], [place] [id number] MCH (RBC) [Entitic mass] 28.6 pg Normal 27.0-33.0 [employer] Comment on above: Performed By: #### C MP, CRP, FT4, LIPD, FT3, ESR, TSH, CBC #### [facility] [address], [place] [id number] MCHC (RBC) [Mass/Vol] 31.1 g/dL Low 32.0-36.0 [facility] Comment on above: Performed By: #### C MP, CRP, FT4, LIPD, FT3, ESR, TSH, CBC #### [facility] [address], [place] [id number] MCV (RBC) [Entitic vol] 92 fL Normal 80-[address] [facility] Specialist Comment on above: Performed By: #### C MP, CRP, FT4, LIPD, FT3, ESR, TSH, CBC #### [facility] [address], [place] [id number] Platelet mean volume (Bld) [Entitic vol] 9.10 fL Normal 7.50-12.50 [facility] Comment on above: Performed By: #### C MP, CRP, FT4, LIPD, FT3, ESR, TSH, CBC #### [facility] [address], [place] [id number] Platelets (Bld) [#/Vol] 151 10*3/uL Normal 140-[address] [facility] Specialist Comment on above: Performed By: #### C MP, CRP, FT4, LIPD, FT3, ESR, TSH, CBC #### [facility] [address], [place] [id number] RBC (Bld) [#/Vol] 5.28 10*6/uL Normal 4.20-5.80 [facility] Comment on above: Performed By: #### C MP, CRP, FT4, LIPD, FT3, ESR, TSH, CBC #### [facility] [address], [place] [id number] RDW-SD 46.7 fL Normal 37.0-50.[address] [facility] Specialist Comment on above: Performed By: #### C MP, CRP, FT4, LIPD, FT3, ESR, TSH, CBC #### [facility] [address], [place] [id number] WBC (Bld) [#/Vol] 10.2 10*3/uL Normal 3.8-11.0 [facility] Comment on above: Performed By: #### C MP, CRP, FT4, LIPD, FT3, ESR, TSH, CBC #### [facility] [address], [place] [id number] Comprehensive Metabolic Pane reji 11-10-2021 Albumin [Mass/Vol] 4.1 g/dL Normal 3.6-5.1 [facility] Comment on above: Performed By: #### C MP, CRP, FT4, LIPD, FT3, ESR, TSH, CBC #### [facility] [address], [place] [id number] Albumin/Globulin [Mass ratio] 1.6 {ratio} Normal 1.0-2.5 [facility] Comment on above: Performed By: #### C MP, CRP, FT4, LIPD, FT3, ESR, TSH, CBC #### [facility] [address], [place] [id number] ALP [Catalytic activity/Vol] 98 U/L Normal 40-129 [facility] Comment on above: Performed By: #### C MP, CRP, FT4, LIPD, FT3, ESR, TSH, CBC #### [facility] [address], [place] [id number] ALT [Catalytic activity/Vol] 36 U/L Normal 9-46 [facility] Comment on above: Result Comment: 08/13 Female reference range changed. Performed By: #### C MP, CRP, FT4, LIPD, FT3, ESR, TSH, CBC #### [facility] [address], [place] [id number] Anion gap [Moles/Vol] 16 mmol/L Normal 12-20 [facility] Comment on above: Result Comment: Effe ctive 09/18/2019 reference range changed. Performed By: #### C MP, CRP, FT4, LIPD, FT3, ESR, TSH, CBC #### [facility] [address], [place] [id number] AST [Catalytic activity/Vol] 19 U/L Normal 10-40 [facility] Comment on above: Performed By: #### C MP, CRP, FT4, LIPD, FT3, ESR, TSH, CBC #### [facility] [address], [place] [id number] Bilirubin [Mass/Vol] 0.65 mg/dL Normal 0.30-1.20 [facility] Comment on above: Performed By: #### C MP, CRP, FT4, LIPD, FT3, ESR, TSH, CBC #### [facility] [address], [place] [id number] BUN/CREA 13 Ratio Normal 6-22 [facility] Comment on above: Performed By: #### C MP, CRP, FT4, LIPD, FT3, ESR, TSH, CBC #### [facility] [address], [place] [id number] Calcium [Mass/Vol] 8.5 mg/dL Low 8.6-10.2 [facility] Comment on above: Performed By: #### C MP, CRP, FT4, LIPD, FT3, ESR, TSH, CBC #### [facility] [address], [place] [id number] Chloride [Moles/Vol] 107 mmol/L Normal 98-107 [facility] Comment on above: Performed By: #### C MP, CRP, FT4, LIPD, FT3, ESR, TSH, CBC #### [facility] [address], [place] [id number] CO2 [Moles/Vol] 25 mmol/L Normal 20-31 [facility] Comment on above: Performed By: #### C MP, CRP, FT4, LIPD, FT3, ESR, TSH, CBC #### [facility] [address], [place] [id number] Creatinine [Mass/Vol] 1.6 mg/dL High 0.7-1.4 [facility] Comment on above: Performed By: #### C MP, CRP, FT4, LIPD, FT3, ESR, TSH, CBC #### [facility] [address], [place] [id number] eGFRAA 53 mL/min/1.73m2 Low >[address] [facility] Comment on above: Performed By: #### C MP, CRP, FT4, LIPD, FT3, ESR, TSH, CBC #### [facility] [address], [place] [id number] eGFRNAA 44 mL/min/1.73m2 Low >[address] [facility] Comment on above: Performed By: #### C MP, CRP, FT4, LIPD, FT3, ESR, TSH, CBC #### [facility] [address], [place] [id number] Globulin (S) [Mass/Vol] 2.5 g/dL Normal 1.9-3.7 [facility] [employer] Comment on above: Performed By: #### C MP, CRP, FT4, LIPD, FT3, ESR, TSH, CBC #### [facility] [address], [place] [id number] Glucose [Mass/Vol] 88 mg/dL Normal 65-99 Natalie hsieh [place] [employer] Comment on above: Result Comment: For FASTING Glucose --- ADA reference ranges: Normal 65-99 mg/dl Prediabetes 100-125 Diabetes >/= 126 Performed By: #### C MP, CRP, FT4, LIPD, FT3, ESR, TSH, CBC #### [facility] [address], [place] [id number] Potassium [Moles/Vol] 5.2 mmol/L Normal 3.5-5.5 [facility] Comment on above: Performed By: #### C MP, CRP, FT4, LIPD, FT3, ESR, TSH, CBC #### [facility] [address], [place] [id number] Protein [Mass/Vol] 6.6 g/dL Normal 6.1-8.1 Natalie hsieh [place] [employer] Comment on above: Performed By: #### C MP, CRP, FT4, LIPD, FT3, ESR, TSH, CBC #### [facility] [address], [place] [id number] Sodium [Moles/Vol] 143 mmol/L Normal 135-146 [facility] [employer] Comment on above: Performed By: #### C MP, CRP, FT4, LIPD, FT3, ESR, TSH, CBC #### [facility] [address], [place] [id number] Urea nitrogen [Mass/Vol] 20 mg/dL Normal 7-25 [facility] [employer] Comment on above: Performed By: #### C MP, CRP, FT4, LIPD, FT3, ESR, TSH, CBC #### [facility] [address], [place] [id number] Free T3on 11-10-2021 FT3 2.63 pg/mL Normal 2.00-4.[address] [facility] Comment on above: Performed By: #### C MP, CRP, FT4, LIPD, FT3, ESR, TSH, CBC #### [facility] [address], [place] [id number] Free T4on 11-10-2021 Free T4 [Mass/Vol] 1.00 ng/dL Normal 0.80-1.80 [facility] Comment on above: Performed By: #### C MP, CRP, FT4, LIPD, FT3, ESR, TSH, CBC #### [facility] [address], [place] [id number] Lipid Panelon 11-10-2021 Cholesterol [Mass/Vol] 147 mg/dL Normal 125-[address] [facility] Comment on above: Result Comment: Low risk < 200mg/dL Borderline risk 201-239 mg/dl High risk > or equal to 240 Performed By: #### C MP, CRP, FT4, LIPD, FT3, ESR, TSH, CBC #### [facility] [address], [place] [id number] Cholesterol in HDL [Mass/Vol] 71 mg/dL Normal >40 [facility] [employer] Comment on above: Result Comment: High Cardiovascular Risk HDL <40 mg/dL Low Cardiovascular Risk HDL > or equal to 60 mg/dl Performed By: #### C MP, CRP, FT4, LIPD, FT3, ESR, TSH, CBC #### [facility] [address], [place] [id number] Cholesterol in LDL [Mass/Vol] 58 mg/dL Normal [facility] Comment on above: Result Comment: LDL ATP III CLASSIFICATION LDL less than 100 mg/dl Optimal LDL 100-129 mg/dl Near or above optimal LDL 130-159 Borderline high LDL 160-189 High LDL greater than 189 mg/dl Very High Performed By: #### C MP, CRP, FT4, LIPD, FT3, ESR, TSH, CBC #### [facility] [address], [place] [id number] Cholesterol in VLDL [Mass/Vol] 18 mg/dL Normal [facility] Comment on above: Performed By: #### C MP, CRP, FT4, LIPD, FT3, ESR, TSH, CBC #### [facility] [address], [place] [id number] Cholesterol.total/Cho lesterol in HDL [Mass ratio] 2 {ratio} Normal [facility] Comment on above: Performed By: #### C MP, CRP, FT4, LIPD, FT3, ESR, TSH, CBC #### [facility] [address], [place] [id number] Triglyceride [Mass/Vol] 89 mg/dL Normal 30-[address] [facility] Comment on above: Result Comment: TRIG ATPIII CLASSIFICATIONS TRIG less than 150 mg/dl Normal TRIG 150-199 mg/dl Borderline High TRIG 200-500 mg/dl High TRIG greather than 500 mg/dl Very High Performed By: #### C MP, CRP, FT4, LIPD, FT3, ESR, TSH, CBC #### [facility] [address], [place] [id number] PSA SCREEN (MEDICARE)on 10-15 TPSA 0.731 ng/mL Normal <4.[address] [facility] Comment on above: Result Comment: PSA Test Method: ECLIA/Alicia e 601 Performed By: #### P SA MC #### [facility] [address], [place] [id number] RBC Sedimentation Rateon ESR (Bld) [Velocity] 57.00 mm/h High 0.00-20.00 [facility] Comment on above: Performed By: #### C MP, CRP, FT4, LIPD, FT3, ESR, TSH, CBC #### [facility] [address], [place] [id number] TSHon 11-10-2021 TSH 2.990 uIU/mL Normal 0.400-4.500 [facility] [employer] Comment on above: Performed By: #### C MP, CRP, FT4, LIPD, FT3, ESR, TSH, CBC #### [facility] [address], [place] [id number] Uric Acidon 10-20-2021 URIC 8.5 mg/dL High 4.0-8.0 [facility] [employer] Comment on above: Result Comment: Refe rence range change 07/30/2017. Prior reference range F 2.4-5.7mg/dL. M 3.4-7.0 mg/dL. Performed By: #### U BOSSMAN #### [facility] [address], [place] [id number] XR pre/post mri xrayon 08-01 XR pre/post mri xray [facility] [place] [address] MRI Report Signed Patient: Hakeem Escobedo MR#: [id number] : 1945 Acct:[id number] Age/Sex: 75 / M ADM Date: 08/01/21 Loc: [facility] Room: Type: [facility] Attending Dr: Petrona Boyer NP Ordering Provider: Petrona Boyer NP Date of Service: 08/01/21 MR/MR lumbar spine wo con: M51.26 ([id number]) XR/XR pre/post mri xray: M51.26 Copies to: [...] Kirk Santiago M.D.08/01/2021 5:06 PM Dictation Location: [place] [address] Transcribed By: [facility] 08/01/211705 Dictated By: Kirk Santiago II, MD 08/01/21 [id number] Signed By: 08/01/211705 [facility] Vital Signs Date Time Vital Sign Value Performing Clinician Faci lity 03-07-2025 08:46-0400 Body height 167.6 cm Mono Knowles MD Work Phone: [facility] 03-07-2025 08:46-0400 Body mass index (BMI) [Ratio] 31.15 kg/m2 Mono Knowles MD Work Phone: [facility] 03-07-2025 08:46-0400 Body weight 87.54 kg Mono Knowles MD Work Phone: [facility] 03-07-2025 08:46-0400 Diastolic blood pressure 70 mm[Hg] Mono Knowles MD Work Phone: [facility] 03-07-2025 08:46-0400 Heart rate 54 /min Mono Knowles MD Work Phone: [facility] 03-07-2025 08:46-0400 SaO2% (BldA) [Mass fraction] 97 % Mono Knowles MD Work Phone: [facility] 03-07-2025 08:46-0400 Systolic blood pressure 128 mm[Hg] Mono Knowles MD Work Phone: [facility] 02-28-2025 10:40-0400 Body height 167.6 cm Mono Knowles MD Work Phone: [facility] 02-28-2025 10:40-0400 Body mass index (BMI) [Ratio] 31.09 kg/m2 Mono Knowles MD Work Phone: [facility] 02-28-2025 10:40-0400 Body weight 87.36 kg Mono Knowles MD Work Phone: [facility] 02-28-2025 10:40-0400 Diastolic blood pressure 82 mm[Hg] Mono Knowles MD Work Phone: [facility] 02-28-2025 10:40-0400 Heart rate 64 /min Mono Knowles MD Work Phone: [facility] 02-28-2025 10:40-0400 Respiratory rate 16 /min Mono Knowles MD Work Phone: [facility] 02-28-2025 10:40-0400 SaO2% (BldA) [Mass fraction] 97 % Mono Knowles MD Work Phone: [facility] 02-28-2025 10:40-0400 Systolic blood pressure 120 mm[Hg] Mono Knowles MD Work Phone: [facility] 02-12-2025 08:48-0400 Body height 167.6 cm Mono Knowles MD Work Phone: [facility] 02-12-2025 08:48-0400 Body mass index (BMI) [Ratio] 31.31 kg/m2 Mono Knowles MD Work Phone: [facility] 02-12-2025 08:48-0400 Body weight 88 kg Mono Knowles MD Work Phone: [facility] 02-12-2025 08:48-0400 Diastolic blood pressure 76 mm[Hg] Mono Knowles MD Work Phone: [facility] 02-12-2025 08:48-0400 Heart rate 63 /min Mono Knowles MD Work Phone: [facility] 02-12-2025 08:48-0400 SaO2% (BldA) [Mass fraction] 96 % Mono Knowles MD Work Phone: [facility] 02-12-2025 08:48-0400 Systolic blood pressure 124 mm[Hg] Mono Knowles MD Work Phone: [facility] 12-06-2024 09:07-0400 Body height 167.6 cm Mono Knowles MD Work Phone: [facility] 12-06-2024 09:07-0400 Body mass index (BMI) [Ratio] 30.99 kg/m2 Mono Knowles MD Work Phone: [facility] 12-06-2024 09:07-0400 Body weight 87.09 kg Mono Knowles MD Work Phone: [facility] 12-06-2024 09:07-0400 Diastolic blood pressure 76 mm[Hg] Mono Knowles MD Work Phone: [facility] 12-06-2024 09:07-0400 Heart rate 62 /min Mono Knowles MD Work Phone: [facility] 12-06-2024 09:07-0400 SaO2% (BldA) [Mass fraction] 98 % Mono Knowles MD Work Phone: [facility] 12-06-2024 09:07-0400 Systolic blood pressure 128 mm[Hg] Mono Knowles MD Work Phone: [facility] 11-08-2024 14:24-0500 Body mass index (BMI) [Ratio] 30.89 kg/m2 Christopher Jossy DO Work Phone: [facility] 11-08-2024 14:24-0500 Body weight 86.82 kg Christopher Jossy DO Work Phone: [facility] 11-08-2024 14:24-0500 Diastolic blood pressure 84 mm[Hg] Christopher Jossy DO Work Phone: [facility] 11-08-2024 14:24-0500 Heart rate 64 /min Christopher Jossy DO Work Phone: [facility] 11-08-2024 14:24-0500 SaO2% (BldA) [Mass fraction] 97 % Christopher Jossy DO Work Phone: [facility] 11-08-2024 14:24-0500 Systolic blood pressure 132 mm[Hg] Christopher Jossy DO Work Phone: [facility] 11-01-2024 08:12-0500 Body height 167.6 cm Norma Jin MD Work Phone: [facility] 11-01-2024 08:12-0500 Body mass index (BMI) [Ratio] 30.18 kg/m2 Norma Jin MD Work Phone: [facility] 11-01-2024 08:12-0500 Body weight 84.82 kg Norma Jin MD Work Phone: [facility] 11-01-2024 08:12-0500 Diastolic blood pressure 77 mm[Hg] Norma Jin MD Work Phone: [facility] 11-01-2024 08:12-0500 Heart rate 75 /min Norma Jin MD Work Phone: [facility] 11-01-2024 08:12-0500 Systolic blood pressure 113 mm[Hg] Norma Jin MD Work Phone: [facility] 10-09-2024 11:11-0500 Body height 167.6 cm Mono Knowles MD Work Phone: [facility] 10-09-2024 11:11-0500 Body mass index (BMI) [Ratio] 30.18 kg/m2 Mono Knowles MD Work Phone: [facility] 10-09-2024 11:11-0500 Body weight 84.82 kg Mono Knowles MD Work Phone: [facility] 10-09-2024 11:11-0500 Diastolic blood pressure 72 mm[Hg] Mono Knowles MD Work Phone: [facility] 10-09-2024 11:11-0500 Heart rate 67 /min Mono Knowles MD Work Phone: [facility] 10-09-2024 11:11-0500 SaO2% (BldA) [Mass fraction] 96 % Mono Knowles MD Work Phone: [facility] 10-09-2024 11:11-0500 Systolic blood pressure 126 mm[Hg] Mono Knowles MD Work Phone: [facility] 09-22-2024 08:33-0500 Body height 167.6 cm Marylou Larry PA Work Phone: [facility] 09-22-2024 08:33-0500 Body mass index (BMI) [Ratio] 30.34 kg/m2 Marylou Hemmer PA Work Phone: [facility] 09-22-2024 08:33-0500 Body weight 85.28 kg Marylou Hemmer PA Work Phone: [facility] 09-22-2024 08:33-0500 Diastolic blood pressure 72 mm[Hg] Marylou Bartholomewmer PA Work Phone: [facility] 09-22-2024 08:33-0500 Heart rate 52 /min Marylou Bartholomewmer PA Work Phone: [facility] 09-22-2024 08:33-0500 SaO2% (BldA) [Mass fraction] 94 % Marylou Bartholomewmer PA Work Phone: [facility] 09-22-2024 08:33-0500 Systolic blood pressure 116 mm[Hg] Marylou Bartholomewmer PA Work Phone: [facility] 08-30-2024 08:59-0500 Body height 167.6 cm Mono Knowles MD Work Phone: [facility] 08-30-2024 08:59-0500 Body mass index (BMI) [Ratio] 29.86 kg/m2 Mono Knowles MD Work Phone: [facility] 08-30-2024 08:59-0500 Body weight 83.92 kg Mono Knowles MD Work Phone: [facility] 08-30-2024 08:59-0500 Diastolic blood pressure 68 mm[Hg] Mono Knowles MD Work Phone: [facility] 08-30-2024 08:59-0500 Heart rate 66 /min Mono Knowles MD Work Phone: [facility] 08-30-2024 08:59-0500 SaO2% (BldA) [Mass fraction] 96 % Mono Knowles MD Work Phone: [facility] 08-30-2024 08:59-0500 Systolic blood pressure 112 mm[Hg] Mono Knowles MD Work Phone: [facility] 07-12-2024 10:12-0400 Body height 167.6 cm Mono Knowles MD Work Phone: [facility] 07-12-2024 10:12-0400 Body mass index (BMI) [Ratio] 30.34 kg/m2 Mono Knowles MD Work Phone: [facility] 07-12-2024 10:12-0400 Body weight 85.28 kg Mono Knowles MD Work Phone: [facility] 07-12-2024 10:12-0400 Diastolic blood pressure 74 mm[Hg] Mono Knowles MD Work Phone: [facility] 07-12-2024 10:12-0400 Heart rate 62 /min Mono Knowles MD Work Phone: [facility] 07-12-2024 10:12-0400 SaO2% (BldA) [Mass fraction] 97 % Mono Knowles MD Work Phone: [facility] 07-12-2024 10:12-0400 Systolic blood pressure 132 mm[Hg] Mono Knowles MD Work Phone: [facility] 06-26-2024 09:15-0400 Body height 167.6 cm Mono Knowles MD Work Phone: [facility] 06-26-2024 09:15-0400 Body mass index (BMI) [Ratio] 29.7 kg/m2 Mono Knowles MD Work Phone: [facility] 06-26-2024 09:15-0400 Body weight 83.46 kg Mono Knowles MD Work Phone: [facility] 06-26-2024 09:15-0400 Diastolic blood pressure 70 mm[Hg] Mono Knowles MD Work Phone: [facility] 06-26-2024 09:15-0400 Heart rate 63 /min Mono Knowles MD Work Phone: [facility] 06-26-2024 09:15-0400 SaO2% (BldA) [Mass fraction] 97 % Mono Knowles MD Work Phone: [facility] 06-26-2024 09:15-0400 Systolic blood pressure 124 mm[Hg] Mono Knowles MD Work Phone: [facility] 05-24-2024 08:42-0400 Body height 167.6 cm Yvette Thornton NP Work Phone: [facility] 05-24-2024 08:42-0400 Body mass index (BMI) [Ratio] 29.86 kg/m2 Yvette Thornton [employer] Work Phone: [facility] 05-24-2024 08:42-0400 Body weight 83.92 kg Yvette Thornton [employer] Work Phone: [facility] 05-24-2024 08:42-0400 Diastolic blood pressure 82 mm[Hg] Yvette Thornton [employer] Work Phone: [facility] 05-24-2024 08:42-0400 Heart rate 60 /min Yvette Thornton [employer] Work Phone: [facility] 05-24-2024 08:42-0400 SaO2% (BldA) [Mass fraction] 98 % Yvette Thornton [employer] Work Phone: [facility] 05-24-2024 08:42-0400 Systolic blood pressure 122 mm[Hg] Yvette Thornton [employer]ER Work Phone: [facility] 05-10-2024 09:59-0400 Body height 167.6 cm Mono Knowles MD Work Phone: [facility] 05-10-2024 09:59-0400 Body mass index (BMI) [Ratio] 30.18 kg/m2 Mono Knowles MD Work Phone: [facility] 05-10-2024 09:59-0400 Body weight 84.82 kg Mono Knowles MD Work Phone: [facility] 05-10-2024 09:59-0400 Diastolic blood pressure 82 mm[Hg] Mono Knowles MD Work Phone: [facility] 05-10-2024 09:59-0400 Heart rate 56 /min Mono Knowles MD Work Phone: [facility] 05-10-2024 09:59-0400 SaO2% (BldA) [Mass fraction] 98 % Mono Knowles MD Work Phone: [facility] 05-10-2024 09:59-0400 Systolic blood pressure 134 mm[Hg] Mono Knowles MD Work Phone: [facility] 12-09-2023 08:38-0400 Body height 167.6 cm Adrian Son MD Work Phone: [facility] 12-09-2023 08:38-0400 Body mass index (BMI) [Ratio] 29.86 kg/m2 Adrian oSn MD Work Phone: [facility] 12-09-2023 08:38-0400 Body weight 83.92 kg Adrian Son MD Work Phone: [facility] 12-09-2023 08:38-0400 Diastolic blood pressure 70 mm[Hg] Adrian Son MD Work Phone: [facility] 12-09-2023 08:38-0400 Heart rate 63 /min Adrian Son MD Work Phone: [facility] 12-09-2023 08:38-0400 SaO2% (BldA) [Mass fraction] 95 % Adrian Son MD Work Phone: [facility] 12-09-2023 08:38-0400 Systolic blood pressure 110 mm[Hg] Adrian Son MD Work Phone: [facility] 10-27-2023 08:49-0500 Body height 167.6 cm Mono Knowles MD Work Phone: [facility] 10-27-2023 08:49-0500 Body mass index (BMI) [Ratio] 29.7 kg/m2 Mono Knowles MD Work Phone: [facility] 10-27-2023 08:49-0500 Body weight 83.46 kg Mono Knowles MD Work Phone: [facility] 10-27-2023 08:49-0500 Diastolic blood pressure 66 mm[Hg] Mono Knowles MD Work Phone: [facility] 10-27-2023 08:49-0500 Heart rate 56 /min Mono Knowles MD Work Phone: [facility] 10-27-2023 08:49-0500 SaO2% (BldA) [Mass fraction] 97 % Mono Knowles MD Work Phone: [facility] 10-27-2023 08:49-0500 Systolic blood pressure 108 mm[Hg] Mono Knowles MD Work Phone: [facility] Healthcare Encounters Encounter Date Encounter Type Care Provider Facility Start: 05-11-2025 End: 05-15-2025 Refill Summer [facility] Comment on above: Anxiety Start: 05-09-2025 End: 05-09-2025 [facility] Comment on above: Cervical stenosis of spinal canal Start: 04-11-2025 End: 04-11-2025 Refill [facility] Comment on above: Anxiety Start: 04-10-2025 End: 04-10-2025 [facility] Comment on [facility]: Cervical stenosis of spinal canal Start: 03-14-2025 End: 03-14-2025 Refill Mono Knowles MD Work Phone: [facility] Comment on above: Gastroesophageal ref lux disease with esophagitis without hemorrhage Start: 03-13-2025 End: 03-13-2025 Refill Summer Kay MA [facility] Comment on above: Chronic insomnia; Anxiety; Cervical stenosis of spinal canal Start: 03-07-2025 End: 03-07-2025 Bamboo flowsheet Mono Knowles MD Work Phone: [facility] Start: 03-07-2025 End: 03-07-2025 Bamboo flowsheet Mono Knowles MD Work Phone: [facility] Start: 03-07-2025 End: 03-07-2025 Office outpatient visit 25 minutes Mono Knowles MD Work Phone: [facility] Comment on above: Acute non-recurrent sinusitis, unspecified location (Primary Dx); Bronchospasm; Benign essential hypertension ; Cervical stenosis of spinal canal Start: 03-07-2025 End: 03-07-2025 ambulatory MONO KNOWLES Not Available Start: 02-28-2025 End: 02-28-2025 Bamboo flowsheet Mono Knowles MD Work Phone: [facility] Start: 02-28-2025 End: 02-28-2025 Bamboo flowsheet Mono Knowles MD Work Phone: [facility] Start: 02-28-2025 End: 02-28-2025 Office outpatient visit 25 minutes Mono Knowles MD Work Phone: [facility] Comment on above: Acute non-recurrent sinusitis, unspecified location (Primary Dx); Bronchospasm; Chest pain, unspecified type Start: 02-28-2025 End: 02-28-2025 ambulatory MONO KNOWLES Not Available Start: 02-14-2025 End: 02-14-2025 Refill Summer Kay MA [facility] Comment on above: Anxiety Start: 02-12-2025 End: 02-12-2025 Bamboo flowsheet Mono Knowles MD Work Phone: [facility] Start: 02-12-2025 End: 02-12-2025 Bamboo flowsheet Mono Knowles MD Work Phone: [facility] Start: 02-12-2025 End: 02-12-2025 Office outpatient visit 25 minutes Mono Knowles MD Work Phone: [facility] Comment on above: Episodic tension-typ e headache, not intractable (Primary Dx); Idiopathic chronic gout without tophus, unspecified site; Vertigo; Cervical stenosis of spinal canal; Epilepsy, unspecified, not intractable, without status epilepticus Start: 02-12-2025 End: 02-12-2025 ambulatory MONO KNOWLES Not Available Start: 01-31-2025 End: 01-31-2025 Refill Marylou LOVELACE Work Phone: [facility] Comment on above: Chronic insomnia Start: 01-22-2025 End: 01-22-2025 Emergency department patient visit MONO KNOWLES [facility] Start: 01-08-2025 End: 01-08-2025 Refill Mono Knowles MD Work Phone: [facility] Comment on above: Cervical stenosis of spinal canal Start: 12-06-2024 End: 12-06-2024 Assay of hemosiderin, quant Mono Knowles MD Work Phone: [facility] Work Phone: Start: 12-06-2024 End: 12-06-2024 Periodic preventive med est patient 65yrs& older Mono Knowles MD Work Phone: [facility] Comment on above: Routine general medi nancy examination at health care facility (Primary Dx); ACP (advance care planning); Cervical stenosis of spinal canal; Borderline abnormal TFTs; Prostate cancer screening; Mixed hyperlipidemia (CMS/HCC); Idiopathic chronic gout without tophus, unspecified site; Obesity (BMI 30-39.9); Cervical spondylosis without myelopathy; Arthritis of right hip; Chronic gouty arthritis; Lumbar herniated disc; Benign prostatic hyperplasia without lower urinary tract symptoms; Stage 3b chronic kidney disease (HCC) (CMS/HCC); Diverticulosis of colon; Irritable bowel syndrome with constipation; Gastroesophageal reflux disease with esophagitis without hemorrhage; Benign essential hypertension (CMS/HCC); 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 (CMS/HCC); Stented coronary artery; Right lumbar radiculopathy; Cerebrovascular accident (CVA), unspecified mechanism (CMS/HCC) Start: 12-06-2024 End: 12-06-2024 ambulatory MONO KNOWLES Not Available Start: 12-04-2024 End: 12-04-2024 Telephone encounter Daisy Crandall CMA [facility] Start: 11-16-2024 End: 11-16-2024 Bamboo flowsheet yTler Sanchez MD Work Phone: [facility] Start: 11-16-2024 End: 11-16-2024 Bamboo flowsheet Tyler Sanchez MD Work Phone: [facility] Start: 11-16-2024 End: 11-16-2024 Patient encounter procedure Tyler Sanchez MD Work Phone: [facility] Comment on above: Weakness Start: 11-16-2024 End: 11-16-2024 ambulatory TYLER SANCHEZ Not Available Start: 11-09-2024 End: 11-09-2024 Refill Mono Knowles MD Work Phone: [facility] Comment on above: Cervical stenosis of spinal canal Start: 11-08-2024 End: 11-08-2024 Office outpatient new 60 minutes Christopher Jossy DO Work Phone: [facility] Comment on above: History of TIA (briones sient ischemic attack) (Primary Dx); Spinal stenosis of lumbar region with neurogenic claudication; Weakness Start: 11-08-2024 End: 11-08-2024 ambulatory DON FENTON Not Available Start: 11-08-2024 End: 11-08-2024 Bamboo flowsheet Christopher Jossy DO Work Phone: [facility] Start: 11-08-2024 End: 11-08-2024 Bamboo flowsheet Christopher Jossy DO Work Phone: [facility] Start: 11-01-2024 End: 11-01-2024 Bamboo flowsheet Norma Jin MD Work Phone: [facility] Start: 11-01-2024 End: 11-01-2024 Bamboo flowsheet Norma Jin MD Work Phone: [facility] Start: 11-01-2024 End: 11-02-2024 Telephone encounter Mono Knowles MD Work Phone: [facility] Start: 11-01-2024 End: 11-01-2024 Office outpatient new 45 minutes Norma Jin MD Work Phone: [facility] Comment on above: Pharyngoesophageal d ysphagia Start: 11-01-2024 End: 11-01-2024 ambulatory NORMA JIN Not Available Start: 10-31-2024 End: 10-31-2024 Telephone encounter Kevin Tran Myra PT Work Phone: [facility] Comment on above: PT Eval Reminder (To day makes 3rd attempt to be seen.) Start: 10-23-2024 End: 10-25-2024 Refill Summer Kay MA [facility] Comment on above: Anxiety Chronic insomnia Start: 10-21-2024 End: 10-23-2024 Refill Jaxson Cunningham SAP ADMINISTRATOR-MANUFACTURING TEST TECHNICIAN Work Phone: [facility] Comment on above: Med Refill Start: 10-16-2024 End: 10-19-2024 Telephone encounter Kevin Tran Myra PT Work Phone: [facility] Comment on above: NCNS PT Eval today; FU Start: 10-09-2024 End: 10-09-2024 Office outpatient visit 25 minutes Mono Knowles MD Work Phone: [facility] Comment on above: Cerebrovascular acci dent (CVA), unspecified mechanism (CMS/HCC) (Primary Dx); Cervical stenosis of spinal canal; Spinal stenosis of lumbar region with neurogenic claudication Start: 10-09-2024 End: 10-09-2024 ambulatory MONO KNOWLES Not Available Start: 10-06-2024 End: 10-07-2024 ambulatory MONO Coreas [facility] Start: 09-22-2024 End: 09-22-2024 Office outpatient visit 25 minutes Marylou LOVELACE Work Phone: [facility] Comment on above: IRINA (acute kidney in jury) (CMS/HCC) (Primary Dx); Stage 3b chronic kidney disease (HCC) (CMS/HCC); Benign essential hypertension (CMS/HCC) Start: 09-22-2024 End: 09-22-2024 ambulatory MARYLOU LARRY Not Available Start: 09-20-2024 End: 09-20-2024 Refill Summer Kay MA [facility] Comment on above: Anxiety; Cervical stenosis of spinal canal Start: 09-14-2024 End: 09-14-2024 Emergency department patient visit MONO KNOWLES [facility] Start: 09-14-2024 ambulatory MONO KNOWLES [facility] Start: 08-31-2024 End: 08-31-2024 Telephone encounter Karol Wednesday JOURNEYMAN LINEMAN Work Phone: [facility] Start: 08-31-2024 ambulatory MONO KNOWLES [facility] Start: 08-30-2024 End: 08-30-2024 Bamboo flowsheet Mono Knowles MD Work Phone: [facility] Start: 08-30-2024 End: 08-30-2024 Bamboo flowsheet oMno Knowles MD Work Phone: [facility] [...] Telephone encounter Robert Curry MD [facility] Comment on above: Results Start: 08-23-2024 End: 08-23-2024 ambulatory KE SANCHEZ Not Available Start: 08-17-2024 End: 08-17-2024 Refill Mono Knowles MD Work Phone: [facility] Comment on above: Cervical stenosis of spinal canal Start: 08-15-2024 End: 08-22-2024 Telephone encounter Sahra Richardson [facility] Comment on above: NEW PATIENT REFERRAL Start: 08-10-2024 End: 08-12-2024 ambulatory MONO KNOWLES [facility] Start: 07-20-2024 End: 07-20-2024 Refill Odalys Villagomez LPN [facility] Comment on above: Cervical stenosis of spinal canal Start: 07-19-2024 End: 07-19-2024 Refill Yvette Thornton NP Work Phone: [facility] Comment [...] Start: 06-22-2024 End: 06-22-2024 Refill Karol Wednesday [employer]EMAN Work Phone: [facility] Comment on [...] Start: 05-24-2024 End: 05-24-2024 Bamboo flowsheet Yvette Thornton SEAL DELIVERY VEHICLE OFFICER Work Phone: [facility] Start: 05-24-2024 End: 05-24-2024 Bamboo flowsheet Yvette Thornton SEAL DELIVERY VEHICLE OFFICER Work Phone: [facility] Start: 05-24-2024 End: 05-24-2024 Office outpatient visit 25 minutes Yvette Thornton SEAL DELIVERY VEHICLE OFFICER Work Phone: [facility] Comment on above: Parotiditis (Primary Dx); Cervical stenosis of spinal canal Start: 05-24-2024 End: 05-24-2024 ambulatory YVETTE THORNTON Not Available Start: 05-18-2024 End: 05-19-2024 Emergency department patient [facility] Start: 05-10-2024 End: 05-10-2024 Bamboo flowsheet Mono Knowles MD Work Phone: [facility] Start: 05-10-2024 End: 05-10-2024 Bamboo flowsheet Mono Knowles MD Work Phone: [facility] Start: 05-10-2024 End: 05-10-2024 ambulatory MONO KNOWLES [facility] Start: 05-10-2024 End: 05-10-2024 Office outpatient visit 25 minutes Mono Knowles MD Work Phone: [facility] Comment on above: Subacute cough (Prim alessandro Dx); Acute bronchitis, unspecified organism Start: 05-10-2024 End: 05-10-2024 ambulatory MONO KNOWLES Not Available Start: 04-25-2024 End: 04-25-2024 Refill Christin Bazzi RN [facility] Comment on above: Med Refill Start: 04-05-2024 End: 04-05-2024 ambulatory MONO KNOWLES Not Available Start: 12-09-2023 End: 12-09-2023 Office outpatient visit 15 minutes Racheal Chi MD Work Phone: [facility] Comment on above: Benign essential hyp ertension (Primary Dx); Coronary artery disease involving [place] coronary artery of [place] heart without angina pectoris Start: 12-08-2023 Telephone encounter Quynh Bustillo [facility] Start: 11-16-2023 Telephone encounter Quynh Bustillo [facility] Start: 11-01-2023 Telephone encounter Magalie Mcdaniel RN [facility] Start: 10-28-2023 Refill Christin Bazzi RN [facility] Comment on above: Med Refill Start: 10-27-2023 Bamboo statusboomheet Mono turner MD Work Phone: [facility] Start: 10-27-2023 Bamboo statusboomheet Mono turner MD Work Phone: [facility] Start: 10-27-2023 End: 10-27-2023 Patient encounter status Mono Knowles MD Work Phone: [facility] Work Phone: Start: 10-27-2023 End: 10-27-2023 Periodic preventive med est patient 65yrs& older Mono Knowles MD Work Phone: [facility] Comment on above: Wellness examination (Primary Dx); 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 (CMS/HCC); Stented [...] of spinal canal; Right lumbar radiculopathy Start: 09-02-2023 Refill Audra henleyi SAP ADMINISTRATOR-MANUFACTURING TEST TECHNICIAN Work Phone: [facility] Comment on above: Med Refill Start: 02-04-[address] MONO KNOWLES Facilit y:H1 Procedures Date Procedure Procedure Detail Performing Clinician Start: 12-06-2024 Assay of prostate specific antigen total Mono Knowles MD Work Phone: Start: 11-16-2024 End: 11-16-2024 Needle emg ea extremty w/paraspinl area complete Artemjavid Fenton DO Work Phone: Start: 06-21-2024 BLOOD CULTURE 2 Generic External Data Provider Start: 06-21-2024 BLOOD CULTURE 1 Generic External Data Provider Start: 10-19-2022 Colonoscopy Audra hodges SAP ADMINISTRATOR-MANUFACTURING TEST TECHNICIAN Work Phone: Plan of Treatment Date Care Activity Detail Author Start: 10-19-2025 Screening for malign ant neoplasm of colon Colonoscopy [facility] Start: 10-06-2025 Tobacco Screening Tobacco Screening [facility] Start: 06-06-2025 End: 06-06-2025 Patient encounter procedure [facility] Start: 05-18-2025 Tobacco Screening Tobacco Screening [facility] Start: 05-17-2025 End: 05-17-2025 Patient encounter procedure 05/17/2025 9:00 AM EDT Office Visit [facility] [address] [facility] [address] [place] [address] Mono Knowles MD [address] [facility] [address] [place] [address] [facility] Start: 05-14-2025 Influenza vaccination Influenza Vacc ine (#1) [facility] Start: 03-07-2025 End: 03-07-2025 Patient encounter procedure [facility] Comment on above: Arrived Start: 02-28-2025 End: 02-28-2025 Patient encounter procedure 02/28/2025 10:30 AM EDT Office Visit [facility] [address] [place] [address] Mono Knowles MD [address] [place] [address] Arrived [facility] Comment on above: Arrived Start: 02-12-2025 End: 02-12-2025 Patient encounter procedure [facility] Comment on above: Arrived Start: 01-08-2025 End: 01-08-2025 Patient encounter procedure 01/08/2025 3:45 PM EDT Office Visit [facility] [address] [place] [phone] Don Fenton, DO [address] [place] [address] [facility] Start: 12-27-2024 End: 12-27-2024 Patient encounter procedure 12/27/2024 2:20 PM EDT Office Visit [facility] [address] [facility] [address] [place] [id number] Norma Jin MD [address] [facility] [address] [place] [address] [facility] Start: 12-19-2024 End: 12-19-2024 Patient encounter procedure 12/19/2024 10:30 AM EDT Procedure Visit [facility] [address] [facility] [address] [place] [phone] Don Fenton DO [address] [place] [address] [facility] Start: 12-08-2024 Adult BMI Screening Adult BMI Screen ing [facility] Start: 12-08-2024 Tobacco Screening Tobacco Screening [facility] Start: 12-06-2024 End: 12-06-2024 Patient encounter procedure [facility] Start: 12-05-2024 End: 12-05-2024 Patient encounter procedure 12/05/2024 1:30 PM EDT Office Visit [facility] [address] [place] [phone] Neli Neal, SAP ADMINISTRATOR-MANUFACTURING TEST TECHNICIAN [address] [place] [phone] [facility] Start: 2024 End: 2024 Patient encounter procedure 2024 11:30 AM EDT Procedure Visit [facility] [address] [place] [address] Tyler Sanchez MD [address] [place] [address] [facility] Start: 11-22-2024 End: 11-22-2024 Patient encounter procedure 11/22/2024 8:30 AM EDT Office Visit [facility] [address] [place] [address] Norma Jin MD [address] [place] [address] [facility] Start: 11-20-2024 End: 11-20-2024 Patient encounter procedure 11/20/2024 9:15 AM EDT Office Visit [facility] [address] [place] [address] Mono Knowles MD [address] [place] [address] [facility] Start: 11-16-2024 End: 11-16-2024 Patient encounter procedure [facility] Comment on above: Arrived Start: 11-09-2024 End: 11-09-2024 ambulatory 11/09/2024 9:00 AM EST Evaluation [facility] [address] [place] [address] Kevin Renteria, PT [address] [place] [address] [facility] Start: 11-08-2024 End: 11-08-2024 Patient encounter procedure [facility] Comment on above: Cerebrovascular acci dent (CVA), unspecified mechanism (CMS/HCC); Spinal stenosis of lumbar region with neurogenic claudication Start: 11-08-2024 End: 11-08-2025 Acetylcholine receptor, binding Acetylcholine receptor, binding Lab Routine Weakness Expected: 11/08/2024 (Approximate), Expires: 11/08/2025 [facility] Comment on above: Expected: 11/08/2024 (Approximate), Expires: 11/08/2025 Start: 11-08-2024 End: 11-08-2025 Acetylcholine receptor, blocking Acetylcholine receptor, blocking Lab Routine Weakness Expected: 11/08/2024 (Approximate), Expires: 11/08/2025 [facility] Comment on above: Expected: 11/08/2024 (Approximate), Expires: 11/08/2025 Start: 11-08-2024 End: 11-08-2025 Acetylcholine receptor, modulating Acetylcholine receptor, modulating Lab Routine Weakness Expected: 11/08/2024 (Approximate), Expires: 11/08/2025 [facility] Comment on above: Expected: 11/08/2024 (Approximate), Expires: 11/08/2025 Start: 11-08-2024 End: 11-08-2025 EMG 2 Extremities EMG 2 Extremities Neurology Routine Weakness Expected: 11/08/2024, Expires: 11/08/2025 [facility] Comment on above: Expected: 11/08/2024 , Expires: 11/08/2025 Start: 11-08-2024 End: 11-08-2025 MUSK ANTIBODY TEST MUSK ANTIBODY TEST Lab Routine Weakness Expected: 11/08/2024 (Approximate), Expires: 11/08/2025 [facility] Work Phone: Comment on above: Expected: 11/08/2024 (Approximate), Expires: 11/08/2025 Start: 11-01-2024 End: 11-01-2024 Patient encounter procedure [facility] Comment on above: Dysphagia, unspecifi ed type Start: 10-27-2024 Medicare Annual Well ness (AWV) Medicare Annual Wellness (AWV) [facility] Start: 10-26-2024 End: 10-26-2024 ambulatory 10/26/2024 11:00 AM EST Evaluation [facility] [address] [place] [address] Kevin Renteria, PT [address] [place] [address] [facility] Start: 10-25-2024 Tobacco Screening Tobacco Screening [facility] Start: 10-09-2024 End: 10-09-2024 Patient encounter procedure 10/09/2024 11:30 AM EST Office Visit [facility] [address] [place] [address] Mono Knowles MD [address] [facility] [address] [place] [address] [facility] Start: 09-22-2024 End: 09-22-2025 Basic metabolic 1998 panel - Serum or Plasma Basic metabolic panel Lab Routine IRINA (acute kidney injury) (CMS/HCC) Stage 3b chronic kidney disease (HCC) (CMS/HCC) Benign essential hypertension (CMS/HCC) Expected: 09/22/2024 (Approximate), Expires: 09/22/2025 [facility] Work Phone: Comment on above: Expected: 09/22/2024 (Approximate), Expires: 09/22/2025 Start: 09-22-2024 End: 09-22-2024 Patient encounter procedure 09/22/2024 10:30 AM EST Office Visit [facility] [address] [place] [address] Marylou Larry PA [address] [place] [address] [facility] Start: 09-18-2024 End: 09-18-2024 Patient encounter procedure 09/18/2024 9:00 AM EST Office Visit [facility] [address] [place] [address] Mono Knowles MD [address] [place] [address] [facility] Start: 08-30-2024 End: 08-30-2024 Patient encounter procedure 08/30/2024 9:15 AM EST Office Visit [facility] [address] [place] [address] Mono Knowles MD [address] [place] [address] Arrived [facility] Comment on above: Arrived Start: 07-12-2024 End: 07-12-2024 Patient encounter procedure [facility] Comment on above: Arrived Start: 06-30-2024 End: 06-30-2024 Patient encounter procedure 06/30/2024 10:00 AM EDT Office Visit [facility] [address] [place] [address] Mono Knowles MD [address] [place] [address] [facility] Start: 06-26-2024 End: 06-26-2026 [...] [address] [place] [address] Mono Knowles MD [address] [place] [address] [facility] Start: 06-07-2024 End: 06-07-2024 Patient encounter procedure 06/07/2024 2:00 PM EDT Office Visit [facility] [address] [place] [address] Mono Knowles MD [address] [place] [address] [facility] Start: 05-25-2024 End: 05-25-2024 Patient encounter procedure 05/25/2024 11:00 AM EDT Office Visit [facility] [address] [place] [address] Mono Knowles MD [address] [place] [address] [facility] Start: 05-24-2024 End: 05-24-2024 Patient encounter procedure 05/24/2024 9:00 AM EDT Office Visit [facility] [address] [place] [address] Yvette Thornton NP [address] [place] [address] Arrived [facility] Comment on above: Arrived Start: 05-14-2024 Influenza vaccination [facility] Start: 05-10-2024 End: 05-10-2024 Patient encounter procedure 05/10/2024 10:15 AM EDT Office Visit [facility] [address] [place] [address] Mono Knowles MD [address] [place] [address] Arrived [facility] Comment on above: Arrived Start: 02-04-2024 Medicare Annual Well ness (AWV) Medicare Annual Wellness (AWV) [facility] Start: 01-03-2024 End: 01-03-2024 Patient encounter procedure 01/03/2024 9:30 AM EDT Office Visit [facility] [address] [place] [address] Mono Knowles MD [address] [place] [address] [facility] Start: 12-09-2023 End: 12-09-2023 Patient encounter procedure 12/09/2023 8:30 AM EDT Office Visit [facility] [address] [place] [address] Racheal Chi MD [address] [place] [address] Adrian Son MD [address] [facility] [place] [place] [phone] [facility] Start: 11-26-2023 End: 11-26-2023 Patient encounter procedure 11/26/2023 11:15 AM EDT Office Visit [facility] [address] [place] [address] Racheal Chi MD [address] [place] [facility] [place] [address] [facility] Start: 11-17-2023 End: 11-17-2023 Patient encounter procedure 11/17/2023 11:15 AM EST Office Visit [facility] [address] [place] [address] Racheal Chi MD [address] [place] [facility] [address] Priyanka Carbajal MD [address] [place] [phone] [facility] Start: 10-27-2023 End: 10-27-2024 Comprehensive metabolic 2000 panel - Serum or Plasma Comprehensive metabolic panel Lab Routine Wellness examination 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 (CMS/HCC) Expected: 10/27/2023 (Approximate), Expires: 10/27/2024 [facility] Comment on above: Expected: 10/27/2023 (Approximate), Expires: 10/27/2024 Start: 10-27-2023 End: 10-27-2024 Lipid 1996 panel - Serum or Plasma Lipid panel Lab Routine Wellness examination 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 (CMS/HCC) Expected: 10/27/2023 (Approximate), Expires: 10/27/2024 [facility] Comment on above: Expected: 10/27/2023 (Approximate), Expires: 10/27/2024 Start: 10-27-2023 End: 10-27-2024 TSH W/REFLEX TO FT4 TSH W/REFLEX TO FT4 Lab Routine Wellness examination 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 (CMS/HCC) Expected: 10/27/2023 (Approximate), Expires: 10/27/2024 [facility] Comment on above: Expected: 10/27/2023 (Approximate), Expires: 10/27/2024 Start: 10-27-2023 End: 10-27-2023 Patient encounter procedure 10/27/2023 9:15 AM EST Office Visit [facility] [address] [facility] [address] [place] [address] Mono Knowles MD [address] [facility] [address] [place] [address] Arrived [facility] Comment on above: Arrived Start: 10-22-2023 COVID-19 Vaccine () COVID-19 Vaccine () [facility] Start: 10-19-2023 Adult BMI Screening Adult BMI Screen ing [facility] Start: 10-19-2023 Tobacco Screening Tobacco Screening [facility] Start: 09-30-2023 End: 09-30-2023 Patient encounter procedure 09/30/2023 9:30 AM EST Office Visit [facility] [address] [facility] [address] [place] [phone] Racheal Chi MD [address] [place] [address] [facility] Start: 05-14-2023 COVID-19 Vaccine ( season) COVID-19 Vaccine ( season) [facility] Start: 05-14-2023 Influenza vaccination Influenza Vacc ine [facility] Start: 11-27-2021 DTaP,Tdap and Td Vac cines (2 - Td or Tdap) DTaP,Tdap and Td Vaccines (2 - Td or Tdap) [facility] Start: 12-01-2011 Abdominal aortic ane urysm screening Abdominal Aortic Aneurysm (AAA) Screen [facility] Start: 12-01-2011 Fall Risk Screening Fall Risk Screen ing [facility] Start: 1964 Adult BMI Follow Up Plan Adult BMI F ollow Up Plan [facility] Start: 1958 Depression Screening Depression Scre ening [facility] Start: 1946 Medicare Annual Well ness Visit Medicare Annual Wellness Visit [facility] CBC W Auto Different ial panel - Blood CBC and differential Lab Routine Wellness examination 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 ([facility]/HCC) Ordered: 10/27/2023 [facility] [employer] Work Phone: Comment on above: Ordered: 10/27/2023 End: 08-24-2025 Lead, blood Lead, blood Lab Routine Elevated blood lead level 1 Occurrences starting 08/24/2024 until 08/24/2025 [facility] Work Phone: Comment on above: 1 Occurrences starti ng 08/24/2024 until 08/24/2025 XR Chest 2 Views XR chest 2 view s Imaging Routine Subacute cough Ordered: 05/10/2024 [facility] [employer] Work Phone: Comment on above: Ordered: 05/10/2024 Immunizations Immunization Date Immunization Notes Care Provider Fa cility 05-17-2024 influenza, high dose seasonal, preservative-free Karol Wednesday JOURNEYMAN LINEMAN Work Phone: [facility] 05-17-2024 influenza virus vacc ine, unspecified formulation Summer Kay MA [facility] 11-17-2023 ABRYSVO - Respirator y syncytial virus (RSV), vaccine, bivalent, protein subunit RSV prefusion F, diluent reconstituted, 0.5 mL, PF Mono Knowles MD Work Phone: [facility] 07-12-2023 Influenza, High-dose Seasonal, Quadrivalent, Preservative Free Mono Knowles MD Work Phone: [facility] 07-12-2023 influenza virus vacc ine, unspecified formulation Christin Bazzi RN [facility] 12-22-2022 zoster vaccine recombinant Mono Knowles MD Work Phone: [facility] 06-17-2022 Influenza, High-dose Seasonal, Quadrivalent, Preservative Free Mono Knowles MD Work Phone: [facility] 06-17-2022 influenza virus vacc ine, unspecified formulation Audra Bowen SAP ADMINISTRATOR-[employer] Work Phone: [facility] 06-18-2021 Influenza, High-dose Seasonal, Quadrivalent, Preservative Free Mono Knowles MD Work Phone: [facility] 08-01-2020 zoster vaccine recombinant Mono Knowles MD Work Phone: [facility] 05-30-2020 influenza, high dose seasonal, preservative-free Mono Knowles MD Work Phone: [facility] 06-14-2019 influenza, high dose seasonal, preservative-free Mono Knowles MD Work Phone: [facility] 09-09-2018 influenza, seasonal, injectable, preservative free Mono Knowles MD Work Phone: [facility] 01-31-2018 pneumococcal polysaccharide vaccine, 23 valent Mono Knowles MD Work Phone: [facility] 06-23-2017 influenza, high dose seasonal, preservative-free Mono Knowles MD Work Phone: [facility] [facility] seasonal influenza, intradermal, preservative free Mono Knowles MD Work Phone: [facility] 10-04-2015 influenza, injectabl e, quadrivalent, preservative free Mono Knowles MD Work Phone: [facility] 07-15-2015 seasonal influenza, intradermal, preservative free Mono Knowles MD Work Phone: [facility] 04-22-2015 pneumococcal conjuga te vaccine, 13 valent Mono Knowles MD Work Phone: [facility] 11-28-2011 tetanus toxoid, redu ria diphtheria toxoid, and acellular pertussis vaccine, adsorbed Mono Knowles MD Work Phone: [facility] Healthcare Payers Date Payer Category Payer Medicare (Managed Care) [facility] Member Subscriber Plan / Payer (Effective 2019-Present) Name: Hakeem Escobedo Relation to Subscriber: Self Name: Hakeem Escobedo Payer ID: Not on file Group ID: [id number] Type: Not on file Address: [address] [place] [id number] 2019 Medicare [id number]. [id number] 2019 Medicare HMO AN[employer]M MEDICARE [id number] 2019 Medicare [id number] 2017 Medicaid [id number]. [id number] 2017 Medicaid [id number] 1959 Self-pay 1945 Unknown [id number] 2.16.840.1.185091.3.579.2. 593 1946 Unknown [id number] 2.16.840.1.451771.3.579.2. 1286 1946 Unknown [id number] 2.16.840.1.339639.3.579.2. 128 1946 Unknown [id number] 2.16.840.1.476036.3.579.2. 128 1946 Unknown [id number] 2.16.840.1.774005.3.579.2. 1285 1946 Unknown [id number] 2.16.840.1.216608.3.579.2. 128 1946 Unknown [id number] 2.16.840.1.597248.3.579.2. 128 1946 Unknown [id number] 2.16.840.1.386902.3.579.2. 128 1946 Unknown [id number] 2.16.840.1.799854.3.579.2. 128 1946 Unknown [id number] 2.16.840.1.708930.3.579.2. 128 1946 Unknown [id number] 2.16.840.1.981965.3.579.2. 1286 1946 Unknown [id number] 2.16.840.1.937221.3.579.2. 128 1946 Unknown [id number] 2.16.840.1.231383.3.579.2. 1259 1946 Unknown [id number] 2.16.840.1.090252.3.579.2. 1259 1946 Unknown [id number] 2.16.840.1.575167.3.579.2. 1259 1946 Unknown [id number] 2.16.840.1.537041.3.579.2. 125 1946 Unknown [id number] 2.16.840.1.961244.3.579.2. 1258 1946 Unknown [id number] 2.16.840.1.702682.3.579.2. 1258 1946 Unknown [id number] 2.16.840.1.810423.3.579.2. 1258 1946 Unknown [id number] 2.16.840.1.573347.3.579.2. 1258 1946 Unknown [id number] 2.16.840.1.101924.3.579.2. 1258 1946 Unknown [id number] 2.16840.1.194750.3.579.2. 1258 1946 Unknown [id number] 2.16.840.1.132955.3.579.2. 125 1946 Unknown [id number] 2.16.840.1.908926.3.579.2. 1258 1946 Unknown [id number] 2.16.840.1.184155.3.579.2. 1258 1946 Unknown [id number] 2.16840.1.637939.3.579.2. 1258 1946 Unknown [id number] 2.16.840.1.294150.3.579.2. 125 1946 Unknown [id number] 2.16840.1.123183.3.579.2. 1258 1946 Unknown [id number] 2.16.840.1.822379.3.579.2. 1259 Social History Date Type Detail Facility Start: 02-02-2023 End: 11-01-2024 Tobacco smoking status [facility] Ex-smoker [facility] Start: 09-13-2007 End: 09-13-2011 History of tobacco use Current smoker [facility] Start: 09-13-2007 End: 09-13-2011 History of tobacco use Cigarette Smoker [facility] Start: 02-02-2023 End: 11-01-2024 Tobacco use and exposure Smokeless tobacco non-user [facility] Start: 07-26-2023 End: 03-07-2025 Alcohol intake Lifetime non-drinker (finding) [facility] Start: 06-04-2023 End: 03-07-2025 History of Social function [facility] Start: 06-04-2023 End: 03-07-2025 Humiliation, Afraid, Rape, and Kick questionnaire [HARK] [...] Comment Quit smoking 1 0 years ago [facility] Start: 02-02-2023 Alcohol Comment Caffeine 1-2 cups/da y [facility] Start: 1945 Sex Assigned At Not on file N [facility] Start: 10-20-2022 End: 10-06-2024 Alcohol intake Current non-drinker of alcohol (finding) [facility] Start: 04-18-2015 Sex Male (finding) [facility] How often do you nee d to have someone help you when you read instructions, pamphlets, or other written material from your doctor or pharmacy [SILS] Sometimes [facility] Goals Date Patient Goal Desired Activity /State [...] is feeling better but somewhat dizzy yet Functional Status Date Assessment Result Facility 03-07-2025 Patient Health Quest ionnaire 2 item (PHQ-2) [Reported] [facility] 02-28-2025 Patient Health Quest ionnaire 2 item (PHQ-2) [Reported] [facility] Clinical Notes 10-27-2023 to 05-15-2025 Telephone Encounter - ALBANIA Gardner - 05/15/2025 8:49 AM EDTTelephone Encounter - ALBANIA Gardner - 05/15/2025 8:49 AM EDTTelephone Encounter - ALBANIA Gardner - 05/15/2025 8:47 AM EDT Note Date & Type Note Facility 05-15-2025 Telephone encounter Note Xanax already sent. [facility] 05-15-2025 Miscellaneous Notes Xanax already sent. documented in this encounter [facility] 05-15-2025 Telephone encounter Note OARRS reviewed, Rx sent into patient's pharmacy. [facility] 05-15-2025 Miscellaneous Notes [facility] reviewed, Rx sent into patient's pharmacy. documented in this encounter [facility] 05-09-2025 Telephone encounter Note OAR[facility] reviewed, Rx sent into patient's pharmacy. [facility] 05-09-2025 Miscellaneous Notes [facility] reviewed, Rx sent into patient's pharmacy. HYDROcodone-acetaminophen ([place]) 10-325 MG tablet [facility] [place] documented in this encounter [facility] 05-09-2025 Telephone encounter Note HYDROcodone-acetaminophen ([place]) 10-325 MG tablet [facility] [place] [facility] 04-11-2025 Telephone encounter Note OARRS reviewed, Rx sent into patient's pharmacy. [facility] 04-11-2025 Miscellaneous Notes [facility] reviewed, Rx sent into patient's pharmacy. documented in this encounter [facility] 04-10-2025 Telephone encounter Note OARRS reviewed, Rx sent into patient's pharmacy. [facility] 04-10-2025 Miscellaneous Notes [facility] reviewed, Rx sent into patient's pharmacy. HYDROcodone-acetaminophen ([place]) 10-325 MG tablet [facility] [place] documented in this encounter [facility] 04-10-2025 Telephone encounter Note HYDROcodone-acetaminophen ([place]) 10-325 MG tablet [facility] [place] [facility] 03-14-2025 Telephone encounter Note Received fax from [facility]. Last [place] Rx was post dated and filled on 03/13. The Rx recently sent will before it is due. Will let it and send in a new script once the patient is due for the [place] to be refilled. [facility] 03-14-2025 Miscellaneous Notes Received fax from [facility]. Last [place] Rx was post dated and filled on 03/13. The Rx recently sent will before it is due. Will let it and send in a new script once the patient is due for the [place] to be refilled. documented in this encounter [facility] 03-14-2025 Telephone encounter Note Carafate sent. [facility] 03-14-2025 Miscellaneous Notes Carafate sent. documented in this encounter [facility] 03-13-2025 Telephone encounter Note OARRS reviewed, Rx sent into patient's pharmacy. [facility] 03-13-2025 Miscellaneous Notes [facility] reviewed, Rx sent into patient's pharmacy. documented in this encounter [facility] 03-07-2025 History of Present illness Narrative Images from the original note were not included. HPI Follow-up Additional comments: Pain/controlled med Last edited by Odalys Villagomez LPN on 03/07/2025 8:46 AM. Subjective Patient ID: Hakeem Escobedo is a 79 y.o. male who presents for Follow-up (Pain/controlled med). Subjective Patient here for follow-up of elevated [...] Home activities: limited due to pain Pt wondering if he needs an mri as discussed at his recent hospital visit 10/06/24 he states he has continued to have weakness in bilateral legs Med Refill Pertinent negatives include no chest pain. Hypertension Pertinent negatives include no chest pain, palpitations or shortness of breath. Dysphagia Pertinent negatives include no chest pain. Pain Pertinent negatives include no chest pain or shortness of breath. Over the past 2 weeks, how often have you been bothered by any of the following problems? Little interest or pleasure in doing things: Not at all Feeling down, depressed, or hopeless: Not at all Patient Health Questionnaire-2 Score: 0 Current Outpatient Medications on File Prior to Visit Medication Sig Dispense Refill allopurinol (Zyloprim) 100 MG tablet Take 1 tablet (100 mg) by mouth Daily 100 tablet 3 ALPRAZolam (Xanax) 1 MG tablet Take 1 tablet (1 mg) by mouth in the morning and 1 tablet (1 mg) before bedtime. 60 tablet 0 amLODIPine (Norvasc) 2.5 MG tablet Take 1 tablet (2.5 mg) by mouth Daily 90 tablet 3 amoxicillin-clavulanate (Augmentin) 875-125 MG tablet Take 1 tablet (875 mg) by mouth in the morning and 1 tablet (875 mg) before bedtime. Do all this for 10 days. 20 tablet 0 carvedilol (Coreg) 25 MG tablet Take 25 mg by mouth in the morning and 25 mg in the evening. celecoxib (CeleBREX) 200 MG capsule Take 1 capsule (200 mg) by mouth Daily 90 capsule 3 clopidogrel (Plavix) 75 MG tablet Take 1 tablet (75 mg) by mouth Daily 100 tablet 3 Colchicine 0.6 MG capsule Take 0.6 mg by mouth See administration instructions Take one capsule by mouth once daily, every Wednesday, Wednesday and Wednesday. 30 capsule 2 gabapentin (Neurontin) 300 MG capsule Take 1 capsule (300 mg) by mouth at bedtime 100 capsule 3 meclizine (Antivert) 25 MG tablet Take 1 [...] needed. pantoprazole (ProtoNix) 40 MG EC tablet Take 1 tablet (40 mg) by mouth Daily 100 tablet 3 simvastatin (Zocor) 40 MG tablet Take 1 tablet (40 mg) by mouth at bedtime 100 tablet 3 sucralfate (Carafate) 1 g tablet TAKE ONE TABLET BY MOUTH EVERY MORNING, EVERY EVENING, AND EVERY NIGHT BEFORE BEDTIME 270 tablet 3 zolpidem (Ambien) 10 MG tablet TAKE 1 TABLET BY MOUTH AT BEDTIME 30 tablet 0 [DISCONTINUED] HYDROcodone-acetaminophen ([place]) 10-325 MG tablet Take 1 tablet by mouth every 6 (six) hours if needed for severe pain 120 tablet 0 [DISCONTINUED] azithromycin (Zithromax) 250 MG tablet Take 2 tablets (500 mg) by mouth Daily for 1 day, THEN 1 tablet (250 mg) Daily for 4 days. 6 tablet 0 [DISCONTINUED] predniSONE (Deltasone) 20 MG tablet Take 1 tablet (20 mg) by mouth Daily for 5 days 5 tablet 0 No current facility-administered medications on file prior to visit. I have reviewed and reconciled the history and medication list with the patient today. Allergies Allergen Reactions Pneumococcal 20-Danay Conj Vacc Swelling Pneumococcal Vac Polyvalent Swelling Social History Tobacco Use Smoking status: Former Current packs/day: 0.00 Types: Cigarettes Quit date: 09/13/2000 Years since quittin.4 Smokeless tobacco: Never Tobacco comments: Quit smoking 10 years ago Vaping Use Vaping status: Never Used Substance Use Topics Alcohol use: Never Comment: Caffeine 1-2 cups/day Drug use: Never Family History Problem Relation Name Age of Onset Other (brain tumor) Mother Hypertension Father Heart disease Father Cancer Maternal Grandmother Cancer Maternal Grandfather Past Medical History: Diagnosis Date Acid reflux Acute renal failure superimposed on stage 3a chronic kidney disease (CMS-HCC) 09/20/2020 Antral ulcer 2015 Anxiety Arthritis CAD (coronary artery disease) Colon polyp 2019 Confusion 09/16/2020 Constipation 09/28/2017 COVID-19 09/20/2020 Diverticulosis 2019 Gastritis 2019 Hiatal hernia 2019 History of gastric ulcer Hypertension Injury to penis 06/06/2021 Traumatic rhabdomyolysis 09/20/2020 Tubulovillous adenoma polyp of colon 2019 Past Surgical History: Procedure Laterality Date CATARACT EXTRACTION Right 01/2021 CERVICAL DISCECTOMY 08/16/2017 C4-C5 COLONOSCOPY 2010 COLONOSCOPY 01/27/2019 Colonoscopy & E[place] COLONOSCOPY W/ POLYPECTOMY 08/2020 [place] (tubulovillous adenoma) [...] Right leg/hi[ VASECTOMY 1980 Visit Vitals BP 128/70 Pulse 54 Ht 5' 6 Wt 193 lb SpO2 97% BMI 31.15 kg/m Smoking Status Former BSA 2.02 m Review of Systems Respiratory: Negative for shortness of breath. Cardiovascular: Negative for chest pain and palpitations. Objective Physical Exam Constitutional: General: He is not in acute distress. Appearance: Normal appearance. Cardiovascular: Rate and Rhythm: Normal rate and regular rhythm. Heart sounds: No murmur heard. Pulmonary: Effort: Pulmonary effort is normal. No respiratory distress. Breath sounds: No wheezing, rhonchi or rales. Abdominal: General: Abdomen is flat. Bowel sounds are normal. Palpations: Abdomen is soft. Musculoskeletal: Right lower leg: No edema. Left lower leg: No edema. Neurological: Mental Status: He is alert. Psychiatric: Mood and Affect: Mood normal. Thought Content: Thought content normal. Assessment/Plan Diagnoses and all orders for this visit: Acute non-recurrent sinusitis, unspecified location - Patient was previously seen for this problem. Interventions discussed at that prior visit have improved this problem significantly. Please seen that office visit for details. Bronchospasm Benign essential hypertension - This is a chronic medical condition that is stable since last assessment. No changes in treatment are suggested at this time. Cervical stenosis of spinal canal - HYDROcodone-acetaminophen ([place]) 10-325 MG tablet; Take 1 tablet by mouth every 6 (six) hours if needed for severe pain Do not start before March 13, 2025. - Medication choice and dosage is appropriate for [...] [facility] Report was reviewed for this patient. Follow up in about 3 months (around 06/07/2025) for Routine F/U. documented in this encounter [facility] 02-28-2025 History of Present illness Narrative Images from the original note were not included. Subjective Patient ID: Hakeem Escobedo is a 79 y.o. male who presents for wheezing. Hakeem is present today for evaluation of wheezing. Admits that ever since he had the COVID shot in 2023 he has been having chest pain and wheezing everytime he lays down. Also has a cough that started a couple of days ago with white phlegm. They did have a z-arnie at home and took that and last dose of that was today. He feels it did help but when he lays down still wheezing. EKG was done on 09/11/24 at [facility]. Over the past 2 weeks, how often have you been bothered by any of the following problems? Little interest or pleasure in doing things: Not at all Feeling down, depressed, or hopeless: Not at all Patient Health Questionnaire-2 Score: 0 Current Outpatient Medications on File Prior to Visit Medication Sig Dispense Refill allopurinol (Zyloprim) 100 MG tablet Take 1 tablet (100 mg) by mouth Daily 100 tablet 3 ALPRAZolam (Xanax) 1 MG tablet Take 1 tablet (1 mg) by mouth in the morning and 1 tablet (1 mg) before bedtime. 60 tablet 0 amLODIPine (Norvasc) 2.5 MG tablet Take 1 tablet (2.5 mg) by mouth Daily 90 tablet 3 carvedilol (Coreg) 25 MG tablet Take 25 mg by mouth in the morning and 25 mg in the evening. celecoxib (CeleBREX) 200 MG capsule Take 1 capsule (200 mg) by mouth Daily 90 capsule 3 clopidogrel (Plavix) 75 MG tablet Take 1 tablet (75 mg) by mouth Daily 100 tablet 3 Colchicine 0.6 MG capsule Take 0.6 mg by mouth See administration instructions Take one capsule by mouth once daily, every Wednesday, Wednesday and Wednesday. 30 capsule 2 gabapentin (Neurontin) 300 MG capsule Take 1 capsule (300 mg) by mouth at bedtime 100 capsule 3 HYDROcodone-acetaminophen ([place]) 10-325 MG tablet Take 1 tablet by [...] needed. pantoprazole (ProtoNix) 40 MG EC tablet Take 1 tablet (40 mg) by mouth Daily 100 tablet 3 simvastatin (Zocor) 40 MG tablet Take 1 tablet (40 mg) by mouth at bedtime 100 tablet 3 sucralfate (Carafate) 1 g tablet TAKE ONE TABLET BY MOUTH EVERY MORNING, EVERY EVENING, AND EVERY NIGHT BEFORE BEDTIME 270 tablet 3 zolpidem (Ambien) 10 MG tablet TAKE 1 TABLET BY MOUTH AT BEDTIME 30 tablet 0 [DISCONTINUED] allopurinol (Zyloprim) 100 MG tablet TAKE ONE TABLET BY MOUTH DAILY 100 tablet 3 [DISCONTINUED] azithromycin (Zithromax) 250 MG tablet Take 2 tablets (500 mg) by mouth Daily for 1 day, THEN 1 tablet (250 mg) Daily for 4 days. 6 tablet 0 No current facility-administered medications on file prior to visit. I have reviewed and reconciled the history and medication list with the patient today. Allergies Allergen Reactions Pneumococcal 20-Danay Conj Vacc Swelling Pneumococcal Vac Polyvalent Swelling Social History Tobacco Use Smoking status: Former Current packs/day: 0.00 Types: Cigarettes Quit date: 09/13/2000 Years since quittin.4 Smokeless tobacco: Never Tobacco comments: Quit smoking 10 years ago Vaping Use Vaping status: Never Used Substance Use Topics Alcohol use: Never Comment: Caffeine 1-2 cups/day Drug use: Never Family History Problem Relation Name Age of Onset Other (brain tumor) Mother Hypertension Father Heart disease Father Cancer Maternal Grandmother Cancer Maternal Grandfather Past Medical History: Diagnosis Date Acid reflux Acute renal failure superimposed on stage 3a chronic kidney disease ([facility]-H[facility]) 09/20/2020 Antral ulcer 2016 Anxiety Arthritis CAD (coronary artery disease) Colon polyp 2019 Confusion 09/16/2020 Constipation 09/28/2017 COVID-19 09/20/2020 Diverticulosis 2019 Gastritis 2019 Hiatal hernia 2019 History of gastric ulcer Hypertension Injury to penis 06/06/2021 Traumatic rhabdomyolysis 09/20/2020 Tubulovillous adenoma polyp of colon 2019 [...] Right leg/hi[ VASECTOMY 1980 Visit Vitals BP 120/82 Pulse 64 Resp 16 Ht 5' 6 Wt 192 lb 9.6 oz SpO2 97% BMI 31.09 kg/m Smoking Status Former BSA 2.02 m Review of Systems Objective Physical Exam HENT: Nose: Congestion and rhinorrhea present. Cardiovascular: Rate and Rhythm: Normal rate and regular rhythm. Heart sounds: Normal heart sounds. No murmur heard. Pulmonary: Breath sounds: Wheezing present. No rhonchi. Assessment/Plan Diagnoses and all orders for this visit: Acute non-recurrent sinusitis, unspecified location - triamcinolone acetonide (Kenalog-40) injection 40 mg - amoxicillin-clavulanate (Augmentin) 875-125 MG tablet; Take 1 tablet (875 mg) by mouth in the morning and 1 tablet (875 mg) before bedtime. Do all this for 10 days. Bronchospasm - triamcinolone acetonide (Kenalog-40) injection 40 mg - predniSONE (Deltasone) 20 MG tablet; Take 1 tablet (20 mg) by mouth Daily for 5 days Chest pain, unspecified type - Likely costochondritis. EKG with [facility], same as prior. Stress test 6 months ago normal. Follow up in about 1 week (around 03/07/2025), or if symptoms worsen or fail to improve. documented in this encounter [facility] 02-14-2025 Telephone encounter Note OARRS reviewed, Rx sent into patient's pharmacy. [facility] 02-14-2025 Miscellaneous Notes OARRS reviewed, Rx sent into patient's pharmacy. documented in this encounter [facility] 02-12-2025 History of Present illness Narrative Images from the original note were not included. HPI Med Refill Additional comments: Hydrocodone, meclizine, colchicine--[facility] frelanet Follow-up Additional comments: Pain/controlled med Results Additional comments: Labs 11/2024 Last edited by Odalys Villagomez LPN on 02/12/2025 9:07 AM. Subjective Patient ID: Hakeem Escobedo is a 79 y.o. male who presents for Med Refill (Hydrocodone, meclizine, colchicine--silviaogeyoly caputo), Follow-up (Pain/controlled med), Hypertension, and Results (Labs 11/2024). Subjective Patient here for follow-up of elevated [...] Home activities: limited due to pain Pt wondering if he needs an mri as discussed at his recent hospital visit 10/06/24 he states he has continued to have weakness in bilateral legs Med Refill Pertinent negatives include no chest pain. Hypertension Pertinent negatives include no chest pain, palpitations or shortness of breath. Dysphagia Pertinent negatives include no chest pain. Pain Pertinent negatives include no chest pain or shortness of breath. Current Outpatient Medications [...] mg) by mouth Daily 90 capsule 3 clopidogrel (Plavix) 75 MG tablet Take 1 tablet (75 mg) by mouth Daily 100 tablet 3 gabapentin (Neurontin) 300 MG capsule Take 1 capsule (300 mg) by mouth at bedtime 100 capsule 3 nitroglycerin (Nitrostat) 0.[address] 1 tablet (0.4 mg) under the tongue every 5 (five) minutes if needed for chest pain 90 tablet 12 ondansetron (Zofran) 4 MG tablet Take 4 mg by mouth every 8 (eight) hours if needed. pantoprazole (ProtoNix) 40 MG EC tablet Take 1 tablet (40 mg) by mouth Daily 100 tablet 3 simvastatin (Zocor) 40 MG tablet Take 1 tablet (40 mg) by mouth at bedtime 100 tablet 3 sucralfate (Carafate) 1 g tablet TAKE ONE TABLET BY MOUTH EVERY MORNING, EVERY EVENING, AND EVERY NIGHT BEFORE BEDTIME 270 tablet 3 zolpidem (Ambien) 10 MG tablet TAKE 1 TABLET BY MOUTH AT BEDTIME 30 tablet 0 [DISCONTINUED] Colchicine 0.6 MG capsule Take 0.6 mg by mouth See administration instructions Take one capsule by mouth once daily, every Wednesday, Wednesday and Wednesday. 30 capsule 0 [DISCONTINUED] HYDROcodone-acetaminophen ([place]) 10-325 MG tablet Take 1 tablet by mouth every 6 (six) hours if needed for severe pain 120 tablet 0 [DISCONTINUED] meclizine (Antivert) 25 MG tablet Take 1 tablet (25 mg) by mouth 3 (three) times a day as needed for dizziness 60 tablet 3 [DISCONTINUED] azithromycin (Zithromax) 250 MG tablet Take 2 tablets (500 mg) by mouth Daily for 1 day, THEN 1 tablet (250 mg) Daily for 4 days. 6 tablet 0 [DISCONTINUED] predniSONE (Deltasone) 20 MG tablet Take 1 tablet (20 mg) by mouth Daily for 5 days 5 tablet 0 [DISCONTINUED] simvastatin (Zocor) 40 MG tablet Take 1 tablet (40 mg) by mouth at bedtime 100 tablet 3 No current facility-administered medications on file prior to visit. I have reviewed and reconciled the history and medication list with the patient today. Allergies Allergen Reactions Pneumococcal 20-Danay Conj Vacc Swelling Pneumococcal Vac Polyvalent Swelling Social History Tobacco Use Smoking status: Former Current packs/day: 0.00 Types: Cigarettes Quit date: 09/13/2000 Years since quittin.4 Smokeless tobacco: Never Tobacco comments: Quit smoking [...] on stage 3a chronic kidney disease (HCC) ([facility]/HCC) 09/20/2020 Antral ulcer 2016 Anxiety Arthritis [...] Right leg/hi[ VASECTOMY 1980 Visit Vitals BP 124/76 Pulse 63 Ht 5' 6 Wt 194 lb SpO2 96% BMI 31.31 kg/m Smoking Status Former BSA 2.02 m Review of Systems Respiratory: Negative for [...] Content: Thought content normal. Judgment: Judgment normal. Office Visit on 12/06/2024 Component Date Value Ref Range Status PSA, TOTAL 12/06/2024 0.32 < OR = 4.00 ng/mL Final Comment: The total PSA value from this assay system is standardized against the WHO standard. The test result will be approximately 20% lower when compared to the equimolar-standardized total PSA (Kika Chad). Comparison of serial PSA results should be interpreted with this fact in mind. This test was performed using the Siemens chemiluminescent method. Values obtained from different assay methods cannot be used interchangeably. PSA levels, regardless of value, should not be interpreted as absolute evidence of the presence or absence of disease. TSH 12/06/2024 4.48 0.40 - 4.50 mIU/L Final T4, FREE 12/06/2024 1.1 0.8 - 1.8 ng/dL Final T3, FREE 12/06/2024 3.2 2.3 - 4.2 pg/mL Final Office Visit on 09/22/2024 Component Date Value Ref Range Status Glucose 09/22/2024 83 65 - 99 mg/dL Final Comment: Fasting reference interval BUN 09/22/2024 19 7 - 25 mg/dL Final Creatinine 09/22/2024 1.56 (H) 0.70 - 1.28 mg/dL Final EGFR 09/22/2024 45 (L) > OR = 60 mL/min/1.73m2 Final BUN/CREATININE RATIO 09/22/2024 12 6 - 22 (calc) Final Sodium 09/22/2024 144 135 - 146 mmol/L Final Potassium, Bld 09/22/2024 4.0 3.5 - 5.3 mmol/L Final Chloride 09/22/2024 109 98 - 110 mmol/L Final Carbon Dioxide 09/22/2024 30 20 - 32 mmol/L Final Calcium 09/22/2024 8.4 (L) 8.6 - 10.3 mg/dL Final Assessment/Plan Diagnoses and all orders for this visit: Episodic tension-type headache, not intractable - None recent. That was why he made the appt, but they have resolved. Idiopathic chronic gout without tophus, unspecified site - Colchicine 0.6 MG capsule; Take 0.6 mg by mouth See administration instructions Take one capsule by mouth once daily, every Wednesday, Wednesday and Wednesday. Vertigo - meclizine (Antivert) 25 MG tablet; Take 1 tablet (25 mg) by mouth 3 (three) times a day as needed for dizziness Cervical stenosis of spinal canal - HYDROcodone-acetaminophen ([place]) 10-325 MG tablet; Take 1 tablet by mouth every 6 (six) hours if needed for severe pain - Medication choice and dosage is appropriate for [...] OARRS Report was reviewed for this patient. Epilepsy, unspecified, not intractable, without status epilepticus Follow up in about 3 months (around 05/15/2025) for Controlled Med Review. documented in this encounter [facility] 01-31-2025 Telephone encounter Note Lucina sent to [facility] [place] [facility] 01-31-2025 Miscellaneous Notes Harleenien sent to [facility] [place] documented in this encounter [facility] 01-08-2025 Telephone encounter Note HYDROcodone-acetaminophen ([place]) 10-325 MG tablet [facility] [place] [facility] 01-08-2025 Miscellaneous Notes HYDROcodone-acetaminophen ([place]) 10-325 MG tablet [facility] [place] documented in this encounter [facility] 12-06-2024 History of Present illness Narrative Images from the original note were not included. HPI Med Refill Additional comments: Hydrocodone-- [facility] Last edited by Odalys Villagomez LPN on 12/06/2024 9:15 AM. Subjective : Chief Complaint: Hakeem Gregg is an 79 y.o. male here for an annual wellness visit. I have reviewed and reconciled the history and medication list with the patient today. Current [...] mg) by mouth Daily 90 capsule 3 clopidogrel (Plavix) 75 MG tablet Take 1 tablet (75 mg) by mouth Daily 100 tablet 3 Colchicine 0.6 MG capsule Take 0.6 mg by mouth See administration instructions Take one capsule by mouth once daily, every Wednesday, Wednesday and Wednesday. 30 capsule 0 gabapentin (Neurontin) 300 MG capsule Take 1 capsule (300 mg) by mouth at bedtime 100 capsule 3 HYDROcodone-acetaminophen ([place]) 10-325 MG tablet Take 1 tablet by [...] needed. pantoprazole (ProtoNix) 40 MG EC tablet Take 1 tablet (40 mg) by mouth Daily 100 tablet 3 simvastatin (Zocor) 40 MG tablet Take 1 tablet (40 mg) by mouth at bedtime 100 tablet 3 sucralfate (Carafate) 1 g tablet TAKE ONE TABLET BY MOUTH EVERY MORNING, EVERY EVENING, AND EVERY NIGHT BEFORE BEDTIME 270 tablet 3 zolpidem (Ambien) 10 MG tablet Take 1 tablet (10 mg) by mouth at bedtime 30 tablet 2 No current facility-administered medications for this visit. Review of Systems List of current healthcare providers: Patient Care Team: Mono Knowles MD as PCP - General (Internal Medicine) Mono Knowles MD as PCP - Jonathan Johnston LPN Medicare Annual Visit Over the past 2 [...] taxes?: Yes Cognitive Screening Three Word Registration: Apple, Watch, Capri Clock Drawing: Inability or Refusal to Draw Clock - 0 Three Word Recall: 2/3 words correct - 2 Total Score (0-5 Points): 2 Pain Assessment Pain Score: 6 Advance Care Planning Do you have a living will?: Yes Do you have a medical power of attorney at law?: No Objective : BP 128/76 Pulse 62 Ht 5' 6 Wt 192 lb SpO2 98% BMI 30.99 kg/m No results found. Physical Exam Constitutional: General: He is not in acute distress. Appearance: Normal appearance. HENT: Head: Normocephalic and atraumatic. Eyes: General: No scleral icterus. Cardiovascular: Rate and Rhythm: Normal rate and regular rhythm. Heart sounds: No murmur heard. Pulmonary: Effort: Pulmonary effort is normal. No respiratory distress. Breath sounds: Normal breath sounds. No wheezing, rhonchi or rales. Abdominal: Tenderness: There is no right CVA tenderness or left CVA tenderness. Musculoskeletal: General: No swelling. Skin: General: Skin is warm and dry. Neurological: General: No focal deficit present. Mental Status: He is alert and oriented to person, place, and time. Gait: Gait abnormal (Using walker.). Psychiatric: Mood and Affect: Mood normal. Behavior: Behavior normal. Assessment/Plan : The following health maintenance schedule was reviewed with the patient and provided in printed form in the after visit summary: Health Maintenance Topic Date Due Influenza Vaccine Completed Pneumococcal Vaccine: 65+ Years Completed Advance Care Planning Assessment/Plan Diagnoses and all orders for this visit: Routine general medical examination at health care facility ACP (advance care planning) Cervical stenosis of spinal canal - HYDROcodone-acetaminophen ([place]) 10-325 MG tablet; Take 1 tablet by mouth every 6 (six) hours if needed for severe pain Borderline abnormal TFTs - TSH; Future - T4, free; Future - T3, free; Future Prostate cancer screening - PSA Mixed hyperlipidemia (CMS/HCC) Idiopathic chronic gout without tophus, unspecified site Obesity (BMI 30-39.9) Cervical spondylosis without myelopathy Arthritis of right hip Chronic gouty arthritis Lumbar herniated disc Benign prostatic hyperplasia without lower urinary tract symptoms Stage 3b chronic kidney disease (HCC) (CMS/HCC) Diverticulosis of colon Irritable bowel syndrome with constipation Gastroesophageal reflux disease with esophagitis without hemorrhage Benign essential hypertension (CMS/HCC) 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 (CMS/HCC) Stented coronary artery Right lumbar radiculopathy Cerebrovascular accident (CVA), unspecified mechanism (CMS/HCC) No orders of the defined types were placed in this encounter. Electronically signed by Mono Knowles MD on December 06, 2024 documented in this encounter [facility] 12-04-2024 Miscellaneous Notes Called patient to remind them to bring their most current copy of their medication list with them to their appt. Unable to reach due to voice mail not set up. documented in this encounter [facility] [employer] [employer] 12-04-2024 Telephone encounter Note Called patient to remind them to bring their most current copy of their medication list with them to their appt. Unable to reach due to voice mail not set up. [facility] 11-16-2024 History of Present illness Narrative Images from the original note were not included. Reason for Appointment: EMG Patient: Hakeem Escobedo : 1945 EMG Computer: [employer] Referring Physician: Dr. Don Fenton EMG: [employer] window dresser: Malou Novak CMA Office Location: [place] Reason for EMG: c/o balance difficulty. Difficulty swallowing. Denies symptoms in the arms. No hx of DM, takes Eliquis. Comments: Procedure explained to the patient who expressed understanding. documented in this encounter [facility] 11-09-2024 Telephone encounter Note HYDROcodone-acetaminophen ([place]) 10-325 MG tablet [facility] [place] [facility] 11-09-2024 Miscellaneous Notes HYDROcodone-acetaminophen ([place]) 10-325 MG tablet [facility] [place] documented in this encounter [facility] 11-08-2024 History of Present illness Narrative Images from the original note were not included. Chief complaint: Spinal stenosis and language disturbance Subjective Hakeem Escobedo, 78 y.o., male Patient presents today for a neurologic consult at the request of Dr. Knowles for CVA, spinal stenosis. He is accompanied by his life partner. Patient is a resident at [facility] in [place]. Patient has his stroke May 192023. His partner states he had the covid vaccine May 18. He woke up the morning and he could not stand. He had slurred speech and confusion. Ever since the patient has had issues with speech. He is currently in speech and physical therapy. Patient now ambulates with a walker. He reports imbalance and weakness in his legs and has had 3 falls. The last fall was 2 weeks ago. He was taken to the hospital. Patient states he was on Plavix for years prior to having the stroke. He is currently still taking this. Ultimately however upon review of imaging does not appear with the patient actually suffered an infarct. It seems that may have had a transient ischemic attack and did have outpatient evaluation for potential spinal issues and was found to have some degenerative changes of the lumbar spine which may have contributed to lower extremity symptoms. Review of Systems Constitutional: Negative for appetite change, fatigue and fever. Respiratory: Negative for cough, shortness of breath and wheezing. Cardiovascular: Negative for chest pain, palpitations and leg swelling. Gastrointestinal: Negative for abdominal pain, constipation, diarrhea and nausea. Musculoskeletal: Negative for arthralgias, gait problem and myalgias. Neurological: Positive for weakness and numbness. Negative for dizziness, tremors and headaches. Language disturbance Past Medical History: Diagnosis Date Acid reflux Acute renal failure superimposed on stage 3a chronic kidney disease (HCC) ([facility]/HCC) 09/20/2020 Antral ulcer 2016 Anxiety Arthritis CAD (coronary artery disease) ([facility]) Colon polyp 2019 Confusion 09/16/2020 Constipation 09/28/2017 COVID-19 09/20/2020 Diverticulosis 2019 Gastritis 2019 Hiatal hernia 2019 History of gastric ulcer Hypertension ([facility]) Injury to penis 06/06/2021 Traumatic rhabdomyolysis ([facility]/HCC) 09/20/2020 Tubulovillous adenoma polyp of colon 2019 Past Surgical History: Procedure Laterality Date CATARACT EXTRACTION Right 01/2021 CERVICAL DISCECTOMY 08/16/2017 C4-C5 COLONOSCOPY 2010 COLONOSCOPY 01/27/2019 Colonoscopy & E[place] COLONOSCOPY W/ POLYPECTOMY 08/2020 [place] (tubulovillous adenoma) [...] ORIF HIP FRACTURE Right leg/hi[ VASECTOMY 1980 Family History Problem Relation Name Age of Onset Other (brain tumor) Mother Hypertension Father Heart disease Father Cancer Maternal Grandmother Cancer Maternal Grandfather Social History Tobacco Use Smoking status: Former Current packs/day: 0.00 Types: Cigarettes Quit date: 09/13/2000 Years since quittin.1 Smokeless tobacco: Never Tobacco comments: Quit smoking 10 years ago Substance Use Topics Alcohol use: Never Comment: Caffeine 1-2 cups/day Allergies: Pneumococcal 20-danay conj vacc and Pneumococcal vac polyvalent Vitals: 11/08/24 1424 BP: 132/84 Pulse: 64 SpO2: 97% Body mass index is 30.89 kg/m . weight: 191 lb 6.4 oz Neurologic exam: Mental status: Awake, alert to person, place and time. Recent and remote memory are intact. Language is fluent without aphasia. DYSARTHRIA Attention and concentration are normal. Fund of knowledge is appropriate for level of education. Cranial nerves: CN II: Visual acuity is normal. Visual clarke full to confrontation. CN III, IV, : pupils equal round and reactive to light. Extraocular movements intact. No ptosis present. CN V: Facial sensation is normal. CN VII: Full and symmetric facial movement. CN VIII: Hearing is normal to finger rub bilaterally: CN IX and X: Palate elevates symmetrically. CN XI: Shoulder shrug is normal bilaterally. CN XII: Tongue is midline without atrophy or fasciculation. Motor: RUE Strength deltoid, , biceps , triceps , wrist extensors , wrist flexor , firestopper technician strength 5/5. LUE Strength deltoid , biceps , triceps , wrist extensors , wrist flexor , firestopper technician strength 5/5. RLE Strength illopsoas, quadriceps, tibialis anterior, and gastrocnemius strength 5/5. LLE Strength illopsoas, quadriceps, tibialis anterior, and gastrocnemius strength 5/5. Normal tone x4 extremities. Bulk is normal. Sensory: Sensation is intact to light touch throughout Four extremities. Reflexes: RUE biceps reflex 2+ brachioradialis reflex 2+ . LUE biceps reflex 2+ brachioradialis reflex 2+ . RLE knee reflex 2+ . LLE knee reflex 2+ . Ferrari's sign negative. Coordination: Mvcdhy-sd-pyoa testing and rapid alternating movements are normal Gait: Patient ambulates with a cane Review and summary of old records: Patient was seen in the emergency department at [place] in October 06, [address] was unremarkable. Patient was noted to have recently unremarkable stroke workup and was discharged in stable condition with improvement of symptoms. The patient was seen for complaints of dizziness in August 10, 2024 occurring over 3 days associated with language difficulty. The patient was found not to be a candidate for tPA. He had an unremarkable CT, CT angiogram of the head, CT angiogram of the neck and an unremarkable MRI. 2D echocardiogram was completed and did not show any acute abnormalities. The patient was started on aspirin and statin medication. The patient did have tele stroke consult. Patient's A1c was found to be 5.3. He had PT, OT and language therapy started and it was recommended that the patient have lumbar and thoracic spine imaging in the outpatient setting. MRI of the thoracic and lumbar spine on 08/23/2024: Motion degraded the imaging. No thoracic or lumbar fracture or significant listhesis. Degenerative changes noted most substantially with moderate canal stenosis at L2/3 and foraminal stenosis that was mild to moderate throughout the lumbar spine bilaterally. Assessment/Plan Diagnoses and all orders for this visit: Dysarthria and weakness It is my impression that the patient has dysarthria and weakness. He states that this started in May after he received COVID vaccine. He is having a lot of weakness and falls since that time. He did have an MRI of the brain which was unremarkable for cause in September of 2024. MRI of the thoracic and lumbar spine did identify some canal and foraminal narrowing but would not explain the patient's dysarthria. Consideration was also given to a polyradicular neuropathy such as Guillain-[place] syndrome. However, the patient's reflexes do seem to be reasonably well-preserved. He is not a diabetic. Additional considerations could be given to neuromuscular pathology such as myasthenia or motor neuron disease. Plan: Myasthenia labs including acetylcholine binding, blocking and modulating antibodies and [facility] EMG of the right upper and lower extremity with tongue with Dr. Sanchez ideally Patient may need a referral to tertiary care center such as [facility] for further evaluation treatment depending on results of the studies. History of TIA (transient ischemic attack) Is my impression that the patient presented with 3 days of dizziness and language difficulty in July of 2024 with a recurrent episode in September of 2024. The patient did have CT, CT angiogram, MRI, echocardiogram and lab evaluation which were largely unremarkable the patient was started on aspirin and statin medication, had therapy services ordered and was discharged in stable condition. Plan: Continue Plavix 75 mg p.o. daily for secondary stroke prevention Continue statin medication with a goal of LDL less than 70 and work on controlling blood sugar, blood pressure cholesterol with the primary care team Signs and symptoms of stroke discussed in detail with the patient understands to proceed to the emergency department right away with any potential life-threatening such signs and symptoms Spinal stenosis of lumbar region with neurogenic claudication MRI of the thoracic and lumbar spine on 08/23/2024: Motion degraded the imaging. No thoracic or lumbar fracture or significant listhesis. Degenerative changes noted most substantially with moderate canal stenosis at L2/3 and foraminal stenosis that was mild to moderate throughout the lumbar spine bilaterally. Based on this MRI evaluation I do not believe the patient has any surgical knees necessitated. However, this certainly could lead to some lower extremity weakness and low back pain radiating into the lower extremities. Plan: I suggest continuation of physical therapy type treatment here. Patient is already on gabapentin and pain medication of a controlled nature along with Xanax. As such, I do not believe we have a role from a prescription perspective of the patient need to return to whom he has his controlled substances agreement with an order for further recommendations regarding medication options. High-degree morbidity and mortality condition with the need for extensive records reviewed, extensive ongoing investigation and treatment. High-level medical decision-making. Pt has been fully educated on their diagnosis, lab results, treatment options, follow up plan, and return instructions documented in this encounter [facility] 11-02-2024 Telephone encounter Note Rx was sent. [facility] 11-02-2024 Miscellaneous Notes Rx was sent. Pt states that he is wheezing really bad. He needs something for his chest. They'd like it sent to [facility] documented in this encounter [facility] 11-01-2024 Telephone encounter Note Pt states that he is wheezing really bad. He needs something for his chest. They'd like it sent to [facility] 10-31-2024 Telephone encounter Note [facility] for PT Eval; 3 attempt. [facility] 10-31-2024 Miscellaneous Notes [facility] for PT Eval; 3 attempt. Tried to contact to remind / confirm PT Eval today that is on its' 3rd attempt; 2/3 & 2/13 both were cx. It rang into voicemail and indicated not set up; unable to contact. documented in this encounter [facility] 10-31-2024 Telephone encounter Note Tried to contact to remind / confirm PT Eval today that is on its' 3rd attempt; 2/3 & 2/13 both were cx. It rang into voicemail and indicated not set up; unable to contact. [facility] 10-25-2024 Telephone encounter Note OARRS reviewed, Rx sent into patient's pharmacy. [facility] 10-25-2024 Miscellaneous Notes OARRS reviewed, Rx sent into patient's pharmacy. documented in this encounter [facility] 10-21-2024 Miscellaneous Notes OV 12/09/23 documented in this encounter [facility] 10-21-2024 Telephone encounter Note OV 12/09/23 [facility] 10-19-2024 Telephone encounter Note Contacted re: KATHINS for PT Eval and he rs 2/13 @ 11 w/ Kevin Renteria PT. [facility] 10-19-2024 Miscellaneous Notes Contacted re: KATHINS for PT Eval and he rs 2/13 @ 11 w/ Kevin Renteria, PT. Tried to contact re: [facility] for his PT Eval; unable to lm re: no voicemail set-up. documented in this encounter [facility] 10-16-2024 Telephone encounter Note Tried to contact re: [facility] for his PT Eval; unable to lm re: no voicemail set-up. [facility] 10-09-2024 History of Present illness Narrative Images from the original note were not included. HPI Follow-up Additional comments: Pain med Med Refill Additional comments: [facility]one--[facility] observation follow up Additional comments: Pt was admitted to [facility] 10/06/24 for observation for leg weakness they discharged him home 10/07/24 no med changes they advised pt he may need an MRI discuss changing referrals Additional comments: Pt was referred to neuro through [facility] and [facility] he does not want to use any [facility] providers he would like new referrals sent to use [facility] Last edited by Odalys Villagomez LPN on 10/09/2024 11:25 AM. Subjective Patient ID: Hakeem Escobedo is a 78 y.o. male who presents for Follow-up (Pain med), Dysphagia, Med Refill ([facility]codone--[facility]), observation follow up (Pt was admitted to [facility] 10/06/24 for observation for leg weakness they discharged him home 10/07/24 no med changes they advised pt he may need an MRI), and discuss changing referrals (Pt was referred to neuro through [facility] and [facility] he does not want to use any [facility] providers he would like new referrals sent to use [facility]). Subjective Patient here for follow-up of elevated [...] Home activities: limited due to pain Pt wondering if he needs an mri as discussed at his recent hospital visit 10/06/24 he states he has continued to have weakness in bilateral legs Dysphagia Pertinent negatives include no chest pain. Med Refill Pertinent negatives include no chest [...] mg) by mouth Daily 90 capsule 3 clopidogrel (Plavix) 75 MG tablet Take 1 tablet (75 mg) by mouth Daily 100 tablet 3 Colchicine 0.6 MG capsule gabapentin (Neurontin) 300 MG capsule Take 1 capsule (300 mg) by mouth at bedtime 100 capsule 3 meclizine (Antivert) 25 MG tablet Take 1 [...] needed. pantoprazole (ProtoNix) 40 MG EC tablet Take 1 tablet (40 mg) by mouth Daily 100 tablet 3 simvastatin (Zocor) 40 MG tablet Take 1 tablet (40 mg) by mouth at bedtime 100 tablet 3 sucralfate (Carafate) 1 g tablet TAKE ONE TABLET BY MOUTH EVERY MORNING, EVERY EVENING, AND EVERY NIGHT BEFORE BEDTIME 270 tablet 3 zolpidem (Ambien) 10 MG tablet Take 1 tablet (10 mg) by mouth at bedtime 30 tablet 2 [DISCONTINUED] HYDROcodone-acetaminophen ([place]) 10-325 MG tablet Take 1 tablet by mouth every 6 (six) hours if needed for severe pain 120 tablet 0 No current facility-administered medications on file prior to visit. I have reviewed and reconciled the history and medication list with the patient today. Allergies Allergen Reactions Pneumococcal 20-Danay Conj Vacc Swelling Pneumococcal Vac Polyvalent Swelling Social History Tobacco Use Smoking status: Former Current packs/day: 0.00 Types: Cigarettes Quit date: 09/13/2000 Years since quittin.0 Smokeless tobacco: Never Tobacco comments: Quit smoking [...] on stage 3a chronic kidney disease (HCC) ([facility]) 09/20/2020 Antral ulcer 2016 Anxiety Arthritis CAD (coronary artery disease) ([facility]) Colon polyp 2019 Confusion 09/16/2020 Constipation 09/28/2017 [...] Right leg/hi[ VASECTOMY 1980 Visit Vitals BP 126/72 Pulse 67 Ht 5' 6 Wt 187 lb SpO2 96% BMI 30.18 kg/m Smoking Status Former BSA [...] breath sounds. No wheezing, rhonchi or rales. Abdominal: Tenderness: There is no right CVA tenderness or left CVA tenderness. Musculoskeletal: General: No swelling. Skin: General: Skin is warm and dry. Neurological: General: No focal deficit present. Mental Status: He is alert and oriented to person, place, and time. Gait: Gait abnormal (Using walker.). Psychiatric: Mood and Affect: Mood normal. Behavior: Behavior normal. Assessment/Plan Diagnoses and all orders for this visit: Cerebrovascular accident (CVA), unspecified mechanism (CMS/HCC) - Ambulatory referral to Speech Therapy; Future - Ambulatory referral to Neurology; Future Cervical stenosis of spinal canal - HYDROcodone-acetaminophen ([place]) 10-325 MG tablet; Take 1 tablet by mouth every 6 (six) hours if needed for severe pain Spinal stenosis of lumbar region with neurogenic claudication - Ambulatory referral to Physical Therapy; Future - Ambulatory referral to Neurology; Future Follow up in about 6 weeks (around 11/20/2024) for Routine F/U. documented in this encounter [facility] 09-22-2024 History of Present illness Narrative Images from the original note were not included. HPI ER Follow-up Additional comments: [facility] Last edited by Summer Kay MA on 09/22/2024 7:29 AM. Subjective Patient ID: Hakeem Escobedo is a 78 y.o. male who presents for ER Follow-up (Went to er due to weakness 09/14/24 [facility]). Pt went to Er due to weakness dizziness and being unbalanced , they did do labs, and DI testing Pt girlfriend stated he is needing labwork to see how his kidneys are doing , this was found at [facility] when they did CT they stated he has dehydrated kidneys. Pt is doing better and is walking more. Pt is drinking lots of fluids including Gatorade - 2 bottles, and about 3 bottles of water a day. ER Follow-up This is a new problem. The current episode started in the past 7 days. The problem has been resolved. Pertinent negatives include no abdominal pain, chest pain, chills, coughing, fatigue, fever, nausea, rash or vomiting. Flowsheet Row Patient Outreach from 09/19/2024 in [facility] with Karol Wednesday, [facility] Hospital Information ED, Hospital or Fci Facility Discharge? ED Patient has been contacted within 1 week of being seen in the ED Yes Diagnosis generalized weakness Discharge Date 09/14/24 Discharged To: Home Setting Discharge Hospital [facility] Engagement Call Start Time 08 Admission Date 09/14/24 Medications Discharge medications reviewed and reconciled from hospital? Yes Is the patient having any side effects they believe may be caused by any medication additions or changes? No Does the patient have all medications ordered at discharge? Yes Is the patient taking all medications as directed (includes completed medication regime)? Yes Appointments Does the patient have a primary care provider? Yes Does the patient have any upcoming specialty appointments? Yes Self Management Does patient have home [...] more information on Advance Care Planning? No Call End Time 0830 Current Outpatient Medications on File Prior to [...] mg) by mouth Daily 90 capsule 3 clopidogrel (Plavix) 75 MG tablet Take 1 tablet (75 mg) by mouth Daily 100 tablet 3 Colchicine 0.6 MG capsule gabapentin (Neurontin) 300 MG capsule Take 1 capsule (300 mg) by mouth at bedtime 100 capsule 3 HYDROcodone-acetaminophen ([place]) 10-325 MG tablet Take 1 tablet by [...] mouth at bedtime 30 tablet 2 [DISCONTINUED] ALPRAZolam (Xanax) 1 MG tablet Take 1 tablet (1 mg) by mouth in the morning and 1 tablet (1 mg) before bedtime. 60 tablet 3 [DISCONTINUED] HYDROcodone-acetaminophen ([place]) 10-325 MG tablet Take 1 tablet by mouth every 6 (six) hours if needed for severe pain 120 tablet 0 No current facility-administered medications on file prior to visit. I have reviewed and reconciled the history and medication list with the patient today. Allergies Allergen Reactions Pneumococcal 20-Danay Conj Vacc Swelling Pneumococcal Vac Polyvalent Swelling Social History Tobacco Use Smoking status: Former Current packs/day: 0.00 Types: Cigarettes Quit date: 09/13/2000 Years since quittin.0 Smokeless tobacco: Never Tobacco comments: Quit smoking [...] on stage 3a chronic kidney disease (HCC) ([facility]) 09/20/2020 Antral ulcer 2016 Anxiety Arthritis CAD (coronary artery disease) ([facility]) Colon polyp 2019 Confusion 09/16/2020 Constipation 09/28/2017 COVID-19 09/20/2020 Diverticulosis 2019 Gastritis 2019 Hiatal hernia 2019 History of gastric ulcer Hypertension ([facility]) Injury to penis 06/06/2021 Traumatic rhabdomyolysis ([facility]) 09/20/2020 Tubulovillous adenoma polyp of colon 2019 [...] Right leg/hi[ VASECTOMY 1980 Visit Vitals BP 116/72 Pulse 52 Ht 5' 6 Wt 188 lb SpO2 94% BMI 30.34 kg/m Smoking Status Former BSA 1.99 m Review of Systems Constitutional: Negative for chills, fatigue and fever. Respiratory: Negative for cough, shortness of breath and wheezing. Cardiovascular: Negative for chest pain, palpitations and leg swelling. Gastrointestinal: Negative for abdominal pain, constipation, diarrhea, nausea and vomiting. Skin: Negative for rash. Objective Physical Exam Constitutional: General: He is not in acute distress. Appearance: Normal appearance. HENT: Head: Normocephalic and atraumatic. Eyes: General: No scleral icterus. Cardiovascular: Rate and Rhythm: Normal rate and regular rhythm. Heart sounds: No murmur heard. Pulmonary: Effort: Pulmonary effort is normal. No respiratory distress. Breath sounds: Normal breath sounds. No wheezing, rhonchi or rales. Abdominal: Tenderness: There is no right CVA tenderness or left CVA tenderness. Musculoskeletal: General: No swelling. Skin: General: Skin is warm and dry. Neurological: General: No focal deficit present. Mental Status: He is alert and oriented to person, place, and time. Gait: Gait abnormal (Using walker.). Psychiatric: Mood and Affect: Mood normal. Behavior: Behavior normal. Assessment/Plan Diagnoses and all orders for this visit: IRINA (acute kidney injury) (CMS/HCC) - Basic metabolic panel; Future Patient has increased his water intake. Will recheck kidney function with BMP today. Will notify pt of results once received. He is feeling much better and walking well. Energy level has improved. Stage 3b chronic kidney disease (HCC) (CMS/HCC) - Basic metabolic panel; Future See above. Benign essential hypertension (CMS/HCC) - Basic metabolic panel; Future Patient's blood pressure is currently well controlled. Continue with current medications and I will continue to monitor. Goal BP remains less than 130/80. The patient was seen today in follow up of recent hospital ER visit. All available hospital records/labs/diagnostics were reviewed and discussed with the patient. ER discharge meds were reviewed. Any changes to plan are noted above. Follow up for Appointment As Scheduled. documented in this encounter [facility] 09-14-2024 Note XR CHEST 1 VW CLINICAL INFORMATION: . weakness. TECHNIQUE/PROCEDURE: Chest radiograph, single view. COMPARISON: Prior chest radiographs, most recently 08/10/2024 FINDINGS: No tracheal deviation. Cardiac and mediastinal contours are normal. No pneumothorax or free air. No pleural effusion or focal consolidation. IMPRESSION: * No radiographic evidence of acute cardiopulmonary disease. Finalized by William Javier MD on 09/14/2024 12:14 PM [facility] 08-31-2024 Telephone encounter Note Rx sent. [facility] 08-31-2024 Miscellaneous Notes Rx sent. documented in this encounter [facility] 08-31-2024 History of Present illness Narrative Peace called this morning. Pt is wheezing and coughing and was up all night coughing. She is asking if you could send something in for pt to help with this wheezing and coughing issue. Jessica in [place]. He does not want to go to ER. She states pt talked with you about it at his appt the other day. documented in this encounter [facility] 08-30-2024 History of Present illness Narrative Images from the original note were not included. HPI Follow-up Additional comments: Recent hospitalization 08/10/24-08/12/24 at [facility] dx: CVA discharged home advised to stop ASA Med Refill Additional comments: Gabapentin--jessica caputo Results Additional comments: Both MRI's Last edited by Odalys Villagomez LPN on 08/30/2024 9:28 AM. Subjective Patient ID: Hakeem Escobedo is a 78 y.o. male who presents for Follow-up (Recent hospitalization 08/10/24-08/12/24 at [facility] dx: CVA discharged home advised to stop ASA), Med Refill (Gabapentin--[facility]), Dysphagia, and Results (Both MRI's). Flowsheet Row Patient Outreach from 08/15/2024 in [facility] with Karol WednesdayELAINE Hospital Information ED, Hospital or Fci Facility Discharge? Hospital Patient has been contacted within two business days of discharge Yes Diagnosis CVA Discharge Date 08/12/24 Discharged To: Home Setting Discharge Hospital [facility] Engagement Call Start Time 904 Admission Date [...] MR brain without contrast. Call End Time 09 Z Pt states when he lays flat [...] mouth at bedtime 100 capsule 3 HYDROcodone-acetaminophen ([place]) 10-325 MG tablet Take 1 tablet by [...] INSTRUCTIONS 21 tablet 0 [DISCONTINUED] nystatin (Mycostatin) 253908 UNIT/ML suspension SWISH AND SWALLOW FIVE MILLILITERS [...] 2016 Anxiety Arthritis CAD (coronary artery disease) ([facility]) Colon polyp 2019 Confusion 09/16/2020 Constipation 09/28/2017 COVID-19 09/20/2020 Diverticulosis 2019 Gastritis 2019 Hiatal hernia 2019 History of gastric ulcer Hypertension ([facility]/HCC) Injury to penis 06/06/2021 Traumatic rhabdomyolysis ([facility]/HCC) 09/20/2020 Tubulovillous adenoma polyp of colon [...] for Routine F/U. documented in this encounter [facility] 08-24-2024 Miscellaneous Notes Patient was admitted under our service at [facility] the week of August 10. At the [...] the recommendation for a repeat lab order. Rn Occupational also attempted to contact the patient's PC Dr Mono Knowles at [phone] who is a provider at [facility]. The phone rang and then it stated the number that you are calling is not in service at this time . Emergency contact listed is his spouse and the same phone number is listed for her also. Thank you so much for doing this. documented in this encounter [facility] 08-24-2024 Telephone encounter Note Patient was admitted under our service at [facility] the week of August 10. At the [...] follow up with his PCP for this. [facility] 08-24-2024 Telephone encounter Note Attempted to contact the patient, phone rang once and then is stated that voicemail box has not been set up . Letter has been composed and mailed to the patient informing him of his results and the recommendation for a repeat lab order. Rn Occupational also attempted to contact the patient's PC Dr Mono Knowles at [phone] who is a provider at [facility]. The phone rang and then it stated the number that you are calling is not in service at this time . Emergency contact listed is his spouse and the same phone number is listed for her also. [facility] 08-24-2024 Telephone encounter Note Thank you so much for doing this. [facility] 08-17-2024 Telephone encounter Note OARRS reviewed, Rx sent into patient's pharmacy. [facility] 08-17-2024 Miscellaneous Notes OARRS reviewed, Rx sent into patient's pharmacy. HYDROcodone-acetaminophen ([place]) 10-325 MG tablet pt's partner called concerned about the refill being sent in. Stated she spoke with Karol about it. Jessica Caputo documented in this encounter [facility] 08-17-2024 Telephone encounter Note HYDROcodone-acetaminophen ([place]) 10-325 MG tablet pt's partner called concerned about the refill being sent in. Stated she spoke with Karol about it. Jessica Caputo [facility] 08-15-2024 Miscellaneous Notes Workqueue referral for stroke [...] TO THEIR NEW PATIENT APPOINTMENT 1st attempt: Rn Occupational attempted to contact patient and offer to schedule in with our clinic as we have received their new patient referral. Rn Occupational received an automated message stating the following: patient's voicemail box has not been set up yet. 2nd attempt: Rn Occupational attempted to contact patient once more and offer to schedule in with our clinic as we have received their new patient referral. Rn Occupational received an automated message stating the following: patient's voicemail box has not been set up yet. [facility] 08-15-2024 Telephone encounter Note Workqueue referral for stroke clinic New patient referral received. Dx: Cerebrovascular accident (CVA), unspecified mechanism ([facility]) [I63.9] Referred by: LEONOR Pemberton Referred to: Please contact patient to schedule from referral if they should be seen by the stroke clinic or route back to scheduling staff if patient should be seen by general neurology, Thanks! PLEASE REVIEW PLAN OVER THE PHONE AND ADVISE PATIENT TO BRING UPDATED INSURANCE INFORMATION TO THEIR NEW PATIENT APPOINTMENT [facility] 08-15-2024 Telephone encounter Note 1st attempt: Rn Occupational attempted to contact patient and offer to schedule in with our clinic as we have received their new patient referral. Rn Occupational received an automated message stating the following: patient's voicemail box has not been set up yet. [facility] Telephone encounter Note 2nd attempt: Rn Occupational attempted to contact patient once more and offer to schedule in with our clinic as we have received their new patient referral. Rn Occupational received an automated message stating the following: patient's voicemail box has not been set up yet. [facility] 07-20-2024 Telephone encounter Note OARRS reviewed, Rx sent into patient's pharmacy. [facility] 07-20-2024 Miscellaneous Notes OARRS reviewed, Rx sent into patient's pharmacy. documented in this encounter [facility] 07-19-2024 Telephone encounter Note Is the medrol arnie ok to give pt [facility] 07-19-2024 Miscellaneous Notes Is the medrol arnie ok to give pt documented in this encounter [facility] 07-12-2024 Telephone encounter Note Celebrex sent to [facility] in [place] [facility] 07-12-2024 Miscellaneous Notes Celebrex sent to [facility] in [place] documented in this encounter [facility] 07-12-2024 History of Present illness Narrative Images from the original note were not included. HPI Results Additional comments: Stress test results Med Refill Additional comments: Gabapentin-- [facility] Last edited by Odalys Villagomez LPN on [...] BY MOUTH DAILY 100 tablet 3 HYDROcodone-acetaminophen ([place]) 10-325 MG tablet Take 1 tablet by [...] on stage 3a chronic kidney disease (HCC) ([facility]/HCC) 09/20/2020 Antral ulcer 2016 Anxiety Arthritis CAD (coronary artery disease) ([facility]) Colon polyp 2019 Confusion 09/16/2020 Constipation 09/28/2017 COVID-19 09/20/2020 Diverticulosis 2019 Gastritis 2019 Hiatal hernia 2019 History of gastric ulcer Hypertension (CMS/HCC) Injury to penis 06/06/2021 Traumatic rhabdomyolysis ([facility]/HCC) 09/20/2020 Tubulovillous adenoma polyp of colon 2019 Past Surgical History: Procedure Laterality Date CATARACT EXTRACTION Right 01/2021 CERVICAL DISCECTOMY 08/16/2017 C4-C5 COLONOSCOPY 2010 COLONOSCOPY 01/27/2019 Colonoscopy & EGD-[place] COLONOSCOPY W/ POLYPECTOMY 08/2020 [place] (tubulovillous adenoma) [...] for Routine F/U. documented in this encounter [facility] 06-29-2024 Telephone encounter Note ALPRAZolam (Xanax) 1 MG tablet to jessica caputo [facility] 06-29-2024 Miscellaneous Notes ALPRAZolam (Xanax) 1 MG tablet to jessica caputo documented in this encounter [facility] 06-26-2024 History of Present illness Narrative Images from the original note were not included. M HPI Follow-up Additional comments: Admitted [facility] 06/21/24 dx: syncope,suspected cva .hypotension discharged home 06/22/24 no med changes made Med Refill Additional comments: Gabapentin.meclizine-- [facility] Last edited by Odalys Villagomez LPN on 06/26/2024 9:36 AM. Subjective Patient ID: Hakeem Escobedo is a 78 y.o. male who presents for Follow-up (Admitted [facility] 06/21/24 dx: syncope,suspected cva .hypotension discharged home 06/22/24 no med changes made) and Med Refill (Gabapentin.meclizine-- [facility]). Flowsheet Row Patient Outreach from 06/23/2024 in [facility] with Karol Joyner LPN Hospital Information ED, Hospital or [facility]ci Facility Discharge? Hospital Patient has been contacted within two business days of discharge Yes Discharge Date 06/22/24 Discharged To: Home Setting Discharge Hospital [facility] Engagement Call Start Time 1330 Admission [...] BY MOUTH DAILY 100 tablet 3 HYDROcodone-acetaminophen ([place]) 10-325 MG tablet Take 1 tablet by [...] at bedtime. 90 capsule 3 [DISCONTINUED] HYDROcodone-acetaminophen ([place]) 10-325 MG tablet Take 1 tablet by [...] 2016 Anxiety Arthritis CAD (coronary artery disease) ([facility]/HCC) Colon polyp 2019 Confusion 09/16/2020 Constipation 09/28/2017 COVID-19 09/20/2020 Diverticulosis 2019 Gastritis 2019 Hiatal hernia 2019 History of gastric ulcer Hypertension ([facility]/H[facility]) Injury to penis 06/06/2021 Traumatic rhabdomyolysis ([facility]/HCC) 09/20/2020 Tubulovillous adenoma polyp of colon [...] for Test/Lab Review. documented in this encounter [facility] 06-22-2024 Telephone encounter Note OARRS reviewed, Rx sent into patient's pharmacy. [facility] 06-22-2024 Miscellaneous Notes OARRS reviewed, Rx sent into patient's pharmacy. documented in this encounter [facility] 05-29-2024 Telephone encounter Note Patient is still having issues with his throat. He saw yvette last week and his throat is still is pain and it hurts to swallow. They wondered if something could be called into [facility] pharmacy. [facility] 05-29-2024 Miscellaneous Notes Patient is still having issues with his throat. He saw yvette last week and his throat is still is pain and it hurts to swallow. They wondered if something could be called into [facility] pharmacy. documented in this encounter [facility] 05-24-2024 History of Present illness Narrative Images [...] mouth at bedtime. 90 capsule 3 HYDROcodone-acetaminophen ([place]) 10-325 MG tablet Take 1 tablet by [...] 2016 Anxiety Arthritis CAD (coronary artery disease) ([facility]) Colon polyp 2019 Confusion 09/16/2020 Constipation 09/28/2017 COVID-19 09/20/2020 Diverticulosis 2019 Gastritis 2019 Hiatal hernia 2019 History of gastric ulcer Hypertension ([facility]) Injury to penis 06/06/2021 Traumatic rhabdomyolysis ([facility]) 09/20/2020 Tubulovillous adenoma polyp of colon [...] Cervical stenosis of spinal canal - HYDROcodone-acetaminophen ([place]) 10-325 MG tablet; Take 1 tablet by [...] follow-ups on file. documented in this encounter [facility] 05-14-2024 History of Present illness Narrative Subjective Patient ID: Hakeem Escobedo is a 78 y.o. male who presents for Dysphagia Pt reports after being hospitalized for Covid May he developed difficulty walking and talking. Pt states he has has difficulty initiation his swallowing. Has trouble with liquids and solids. Hospitalized in Sep at [facility] ([place], [place]) with apparent CVA. Has not yet seen neurologist after his discharge. Speech tx recommended ENT eval. Review of Systems All other systems reviewed and are negative. Family History Problem Relation Name Age of Onset Other (brain tumor) Mother Hypertension Father Heart disease Father Cancer Maternal Grandmother Cancer Maternal Grandfather Active Ambulatory Problems Diagnosis Date Noted Anxiety 01/19/2023 Arthritis of right hip 01/19/2023 Benign essential hypertension ([facility]) 06/12/2010 Cervical spondylosis without myelopathy 06/09/2011 Cervical stenosis of spinal canal 01/19/2023 Chronic gouty arthritis 01/19/2023 Chronic insomnia 01/19/2023 Diverticulosis of colon 10/10/2008 Gastritis 01/19/2023 Hiatal hernia 01/19/2023 Gastroesophageal reflux disease with esophagitis without hemorrhage 01/19/2023 Gout 01/19/2023 Hyperlipidemia ([facility]) 12/26/2013 Hypocalcemia 01/19/2023 Lumbar herniated disc 01/19/2023 Obesity (BMI 30-39.9) 01/19/2023 Osteoarthrosis 10/10/2008 Other chronic pain 01/19/2023 Pain of right thigh 01/19/2023 Stage 3b chronic kidney disease (HCC) ([facility]) 01/19/2023 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 ([facility]) 12/26/2013 Benign prostatic hyperplasia without lower urinary tract symptoms 06/06/2021 Chronic postoperative pain 09/21/2016 Duodenal diverticulum 09/18/2022 Personal history of other diseases of the digestive system 07/12/2020 History of colonic polyps 04/26/2019 History of stomach ulcers 09/18/2022 Stented coronary artery 09/22/2013 Cervical osteoarthritis 12/27/2014 Arthritis 09/18/2022 History of myocardial infarct at age greater than 60 years ([facility]) 02/03/2023 Right lumbar radiculopathy 07/26/2023 Irritable bowel syndrome with constipation 10/27/2023 Cerebrovascular accident (CVA) ([facility]) 08/10/2024 Dizziness 10/06/2024 Resolved Ambulatory Problems Diagnosis Date Noted Occlusive coronary artery disease ([facility]) 12/26/2013 Acute renal failure superimposed on stage 3a chronic kidney disease (HCC) ([facility]) 09/20/2020 Balanitis 06/06/2021 Chest pain 01/23/2017 Confusion 09/16/2020 Constipation 09/28/2017 COVID-19 09/20/2020 Diverticulosis 09/18/2022 HTN (hypertension) ([facility]) 09/22/2013 Injury to penis 06/06/2021 Myocardial infarction ([facility]) 09/13/2016 Traumatic rhabdomyolysis ([facility]) 09/20/2020 Unstable angina ([facility]) 09/22/2013 Spinal stenosis in cervical region 12/20/2018 Acid reflux 01/23/2017 Past Medical History: Diagnosis Date Antral ulcer 2015 CAD (coronary artery disease) ([facility]) Colon polyp 2018 History of gastric ulcer Hypertension ([facility]) Tubulovillous adenoma polyp of colon 2019 Past [...] ORIF HIP FRACTURE Right leg/hi[ VASECTOMY 1980 Allergies Allergen Reactions Pneumococcal 20-Danay Conj Vacc Swelling Pneumococcal Vac Polyvalent Swelling Current Outpatient Medications on File Prior to [...] mg) by mouth Daily 90 capsule 3 clopidogrel (Plavix) 75 MG tablet Take 1 tablet (75 mg) by mouth Daily 100 tablet 3 Colchicine 0.6 MG capsule Take 0.6 mg by mouth See administration instructions Take one capsule by mouth once daily, every Wednesday, Wednesday and Wednesday. 30 capsule 0 gabapentin (Neurontin) 300 MG capsule Take 1 capsule (300 mg) by mouth at bedtime 100 capsule 3 HYDROcodone-acetaminophen ([place]) 10-325 MG tablet Take 1 tablet by mouth every 6 (six) hours if needed for severe pain 120 tablet 0 meclizine (Antivert) 25 MG tablet Take 1 tablet (25 mg) by mouth 3 (three) times a day as needed for dizziness 60 tablet 3 ondansetron (Zofran) 4 MG tablet Take 4 mg by mouth every 8 (eight) hours if needed. pantoprazole (ProtoNix) 40 MG EC tablet Take 1 tablet (40 mg) by mouth Daily 100 tablet 3 simvastatin (Zocor) 40 MG tablet Take 1 tablet (40 mg) by mouth at bedtime 100 tablet 3 sucralfate (Carafate) 1 g tablet TAKE ONE TABLET BY MOUTH EVERY MORNING, EVERY EVENING, AND EVERY NIGHT BEFORE BEDTIME 270 tablet 3 zolpidem (Ambien) 10 MG tablet Take 1 tablet (10 mg) by mouth at bedtime 30 tablet 2 nitroglycerin (Nitrostat) 0.[address] 1 tablet (0.4 mg) under the tongue every 5 (five) minutes if needed for chest pain 90 tablet 12 No current facility-administered medications on file prior to visit. Objective Last Recorded Vitals Vitals: 11/01/24 0812 BP: 113/77 Pulse: 75 ENT Physical Exam Constitutional Appearance: patient appears well-developed and well-nourished, Head and Face Appearance: head appears normal and face appears atraumatic; Ear Ear comments: Toni ears normal Nose External Nose: nares patent bilaterally; external nose normal; Internal Nose: nasal mucosa normal; Oral Cavity/Oropharynx Lips: normal; Teeth: normal; Gums: gingiva normal; Tongue: normal; Oral mucosa: normal; Hard palate: normal; OC/OP comments: IDL - no mass or ulcer. Absent gag Neck Neck: neck normal; neck palpation normal; Thyroid: thyroid normal; Respiratory Inspection: breathing unlabored; normal breathing rate; Auscultation: breath sounds are clear; Cardiovascular Inspection: extremities are warm and well perfused; no peripheral edema present; Auscultation: regular rate and rhythm; Assessment/Plan Diagnoses and all orders for this visit: Pharyngoesophageal dysphagia - Ambulatory referral to ENT Pt has dysphagia that appears to be related to his recent CVA. No anatomic abnormality evident. Agree with neuro eval. I will order an MBS to eval further and to facilitate speech tx. documented in this encounter [facility] 05-10-2024 History of Present illness Narrative Images [...] mouth at bedtime. 90 capsule 3 HYDROcodone-acetaminophen ([place]) 10-325 MG tablet Take 1 tablet by [...] on stage 3a chronic kidney disease (HCC) ([facility]/HCC) 09/20/2020 Antral ulcer 2016 Anxiety Arthritis CAD (coronary artery disease) ([facility]) Colon polyp 2019 Confusion 09/16/2020 Constipation 09/28/2017 COVID-19 09/20/2020 Diverticulosis 2019 Gastritis 2019 Hiatal hernia 2019 History of gastric ulcer Hypertension ([facility]) Injury to penis 06/06/2021 Traumatic rhabdomyolysis ([facility]/HCC) 09/20/2020 Tubulovillous adenoma polyp of colon [...] changes, Test/Lab Review. documented in this encounter [facility] 12-09-2023 History of Present illness Narrative Hakeem Escobedo Date of visit: 12/09/2023 Date of : 1945 Age: 78 y.o. Patient Active Problem List Diagnosis Acid reflux Chest pain Benign essential hypertension Hyperlipidemia Coronary artery disease involving k[place] coronary artery of k[place] heart without angina pectoris Confusion Traumatic rhabdomyolysis ([facility]-HCC) Acute renal failure superimposed on stage 3a chronic kidney disease ([facility]) COVID-19 Urologic disorders Benign prostatic hyperplasia without lower urinary tract symptoms Balanitis Injury to penis Phimosis Obesity (BMI 30-39.9) Anxiety Arthritis Atherosclerosis Colon polyp Diverticulosis Duodenal diverticulum Gastritis Hiatal hernia History of stomach ulcers Myocardial infarction ([facility]) Allergies Allergen Reactions Pneumovax-23 [Pneumococcal 23-Danay Ps [...] superimposed on stage 3a chronic kidney disease ([facility]-HCC) 09/20/2020 Anxiety Arthritis Atherosclerosis Colon polyp Coronary artery disease Diverticulosis Duodenal diverticulum Gastritis GERD (gastroesophageal reflux disease) Hiatal hernia History of stomach ulcers HTN (hypertension) Hyperlipidemia Myocardial infarction ([facility]-HCC) 2017 Visual impairment glasses No data recorded No data recorded No data recorded Past Surgical History: Procedure Laterality Date ABDOMINAL SURGERY CERVICAL DISCECTOMY CIRCUMCISION N/A 07/04/2021 Performed by Raman Jara Jr., MD at [facility] COLONOSCOPY COLONOSCOPY N/A 10/19/2022 Performed by Jonas Butcher DO at [facility] COLONOSCOPY AND POLYPECTOMY N/A 08/29/2020 Performed by Jesse Ruiz MD at [facility] CORONARY ANGIOPLASTY WITH STENT PLACEMENT DORSAL SLIT PENIS N/A 07/04/2021 Performed by Raman Jara Jr., MD at [facility] EGD N/A 08/29/2020 Performed by Jesse Ruiz MD at [facility] EGD N/A 01/24/2017 Performed by Jonas Butcher DO at [facility] ESOPHAGOGASTRODUODENOSCOPY N/A 10/19/2022 Performed by Jonas Butcher DO at [facility] HERNIA REPAIR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 Onset Date Comments Med Refill 05/09/2025 Reason Onset Date Comments Med Refill 05/11/2025 FOR RECORDS PERTAINING TO PATIENTS WHO ARE [...] BE BASED ON THE PRIMARY CLINICAL RECORDS. [employer] provides no warranty or guarantee of the accuracy or completeness of information in this document.
--- OUTSIDE RECORDS SUMMARY | 2025-05-26 11:40 | XMS_ITS | Encounter Summary ---
Author Organization [employer] Address [id number] [address] [place] [address] Care Team Providers Care Qa Tech Name Role Phone Mono Knowles MD Primary Care Provider [phone] Reason for Visit * Reason Comments Med Refill Encounter Details Date Type Department Care Team (Late st Contact Info) Description 12/17/2022 Refill [facility] [address] [place] [phone] Jonas Butcher DO [address] [place], [place] [id number] Social History Tobacco Use Types Packs/Day Years [...] documented as of this encounter Care Teams Qa Tech Relationship Specialty Start Date End Date Mono Knowles MD [address] [facility] [address] [place] [address] PCP - General 10/06/24 documented as of this encounter
--- OUTSIDE RECORDS SUMMARY | 2025-05-26 11:40 | XMS_ITS | Encounter Summary ---
Author Organization [facility] Address [address] [place] [address] Care Team Providers Care Laborer Operator Name Role Phone Mono Knowles MD Unavailable [phone] Mono Knowles MD Primary Care Provider [phone] Reason for Visit * Reason Comments Med Refill Encounter Details Date Type Department Care Team ([facility] Contact Info) Description 05/11/2025 Refill [facility] [place] [facility] 112 [facility] 110 [place] [phone] Marylou Harris PA 112 [facility] [address] [place] [address] Anxiety Social History Tobacco Use Types Packs/Day [...] How often do you attend chur or sabianist services? More than 4 times per year 06/04/2023 Do you belong to any clubs o r organizations such as worship groups, unions, fraternal or athletic groups, or [...] Recorded Patient Health Questionnaire-2 Score 0 03/07/2025 [facility] of Occupat ional Health - [...] place to sleep or slept in a skilled nursing (including now)? No 06/04/2023 Sex and Gender Information Value Date Recorded Sex Assigned at Not on file Legal Sex Male 6:55 PM EDT Gender Identity Not on file Sexual Orientation Not on file documented as of this encounter Miscellaneous Notes * Telephone Encounter - ALBANIA Gardner - 05/15/2025 8:49 AM EDT Xanax already sent. documented in this encounter Plan of Treatment Upcoming Encounters Date Type Department Care Team (Late st Contact Info) Description 05/30/2025 11:30 AM EDT Office Visit [facility] [place] [address] [facility] [address] [place] [address] Merry Ray NP [address] [place] [address] 06/06/2025 8:30 AM EDT Office Visit [facility] [place] [address] [place] [address] Mono Knowles MD [address] [facility] [address] [place] [address] documented as of this encounter Visit Diagnoses Diagnosis Anxiety Anxiety state, unspecified documented in this encounter Care Teams Laborer Operator Relationship Specialty Start Date End Date Mono Knowles MD [address] [facility] [address] [place] [address] PCP - Jonathan FLORES 09/13/21 Mono Knowles MD [address] [facility] [address] [place] [address] PCP - General Internal Medicine 03/01/23 documented as of this encounter
--- OUTSIDE RECORDS SUMMARY | 2025-05-26 11:40 | XMS_ITS | Encounter Summary ---
Author Organization [facility] Address [address] [facility] [place] [address] Care Team Providers Care Supreme Court Judge Name Role Phone Mono Knowles MD Unavailable [phone] Marylou Harris Primary Care Provider Mono Knowles MD Primary Care Provider Summer Velazquez RN Unavailable [phone] Ruth Johnston LPN Unavailable Encounter Details Date Type Department Care Team ([facility] Contact Info) Description 02/02/2023 Abstract [facility] [place] [facility] [address] [facility] [address] [place] [address] Marylou Harris PA 112 [facility] 110 [place], [place] [id number] Social History Tobacco Use Types Packs/Day Years Used Date Smoking Tobacco: Former Cigarettes Q uit: 09/13/2000 Smokeless Tobacco: Never Tobacco Cessation:Counseling Given: Not Answered Comments:Quit smoking 10 years ago Alcohol Use Standard Drinks/Week Comments Never 0 (1 standard drink = 0.6 oz pur e alcohol) Caffeine 1-2 cups/day Sex and Gender Information Value Date Recorded Sex Assigned at Not on file Legal Sex Male 6:55 PM EDT Gender Identity Not on file Sexual Orientation Not on file COVID-19 Exposure Response Date Recorded In the last 10 days, have yo u been in contact with someone who was confirmed or suspected to have Coronavirus/COVID-19? No / Unsure 01/25/2023 3:49 PM EDT documented as of this encounter Functional Status * Over the past 2 weeks, how often have you been bothered by any of the following problems? Question Answer Date of Assessment Author Little interest or pleasure in doing things Not at all 02/03/2023 9:00 AM EDT Mara Lincoln LP N documented as of this encounter Plan of Treatment Upcoming Encounters Date Type Department Care Team (Late st Contact Info) Description 05/30/2025 11:30 AM EDT Office Visit [facility] [place] [facility] [address] [place] [address] Merry Ray, DIA [address] [place] [address] 06/06/2025 8:30 AM EDT Office Visit [facility] [place] [facility] [address] [place] [address] Mono Knowles MD [address] [place] [address] documented as of this encounter Visit Diagnoses Not on filedocumented in this encounter Care Teams Supreme Court Judge Relationship Specialty Start Date End Date Mono Knowles MD [address] [place] [address] PCP - Jonathan FLORES 09/13/21 Marylou Harris, PA [address] [place] [address] PCP - General Family Medicine 01/25/23 02/28/23 Mono Knowles MD [address] [place] [address] PCP - General Internal Medicine 03/01/23 Summer Velazquez, RN [address] [place] [address] Clinical [facility] Family Medicine 10/20/24 11/28/24 Ruth Johnston LPN [address] [place] [address] 11/28/24 05/09/25 documented as of this encounter
--- OUTSIDE RECORDS SUMMARY | 2025-05-26 11:40 | XMS_ITS | Encounter Summary ---
Author Organization [facility] Address [address] [place] [address] Care Team Providers Care Top Stop Attacher Name Role Phone Mono Knowles MD Unavailable [phone] Mono Knowles MD Primary Care Provider [phone] Ruth Johnston LPN Unavailable Encounter Details Date Type Department Care Team ([facility] st Contact Info) Description 2024 Abstract [facility] [place] [facility] 112 [facility] 110 [place] [address] Mono Knowles MD 112 [facility] 110 [place] [address] Social History Tobacco Use Types Packs/Day Years [...] How often do you attend chur or latter day services? More than 4 times per year 06/04/2023 Do you belong to any clubs o r organizations such as druze groups, unions, fraternal or athletic groups, or [...] Date Recorded Patient Health Questionnaire-2 Score 0 10/09/2024 [facility] [place] of Occupat ional Health - Occupational Stress [...] Visit [facility] [place] [facility] [address] [facility] [address] [place] [phone] Merry Ray NP [address] [place] [address] 06/06/2025 8:30 AM EDT Office Visit [facility] [place] [facility] [address] [place] [address] Mono Knowles MD [address] [place] [address] documented as of this encounter Visit Diagnoses Not on filedocumented in this encounter Care Teams Top Stop Attacher Relationship Specialty Start Date End Date Mono Knowles MD [address] [facility] [address] [place] [address] PCP - Jonathan FLORES 09/13/21 Mono Knowles MD [address] [facility] [address] [place] [address] PCP - General Internal Medicine 03/01/23 Ruth Johnston LPN [address] [facility] [address] [place] [address] 11/28/24 05/09/25 documented as of this encounter
--- OUTSIDE RECORDS SUMMARY | 2025-05-26 11:40 | XMS_ITS | Encounter Summary ---
Author Organization [facility] Address [address] [place] [address] Care Team Providers Care Terminal Block Assembler Name Role Phone Mono Knowles MD Unavailable [phone] Mono Knowles MD Primary Care Provider [phone] Ruth Johnston LPN Unavailable Encounter Details Date Type Department Care Team ([facility] st Contact Info) Description 03/19/2025 Abstract [facility] [place] [facility] 112 [facility] 110 [place] [address] Mono Knowles MD 112 [facility] 110 [place] [address] Social History Tobacco Use Types Packs/Day Years [...] How often do you attend chur or yazidism services? More than 4 times per year 06/04/2023 Do you belong to any clubs o r organizations such as sikhism groups, unions, fraternal or athletic groups, or [...] Recorded Patient Health Questionnaire-2 Score 0 03/07/2025 [facility] of Occupat ional Health - Occupational Stress [...] place to sleep or slept in a chcf (including now)? No 06/04/2023 Sex and Gender [...] Visit [facility] [place] Zhang [address] [facility] [address] [place] [phone] Merry Ray NP [address] [place] [address] 06/06/2025 8:30 AM EDT Office Visit [facility] [place] [facility] [address] [place] [address] Mono Knowles MD [address] [place] [address] documented as of this encounter Visit Diagnoses Not on filedocumented in this encounter Care Teams Terminal Block Assembler Relationship Specialty Start Date End Date Mono Knowles MD [address] [facility] [address] [place] [address] PCP - Jonathan FLORES 09/13/21 Mono Knowles MD [address] [facility] [address] [place] [address] PCP - General Internal Medicine 03/01/23 Ruth Johnston LPN [address] [facility] [address] [place] [address] 11/28/24 05/09/25 documented as of this encounter
--- OUTSIDE RECORDS SUMMARY | 2025-05-26 11:41 | XMS_ITS | Encounter Summary ---
Author Organization [facility] Address [address] [place] [address] Care Team Providers Care Trouble Lineman Name Role Phone Mono Knowles MD Unavailable [phone] Mono Knowles MD Primary Care Provider [phone] Summer Velazquez RN Unavailable [phone] uRth Johnston LPN Unavailable Encounter Details Date Type Department Care Team (Late Contact Info) Description 11/01/2024 Abstract [facility] [place] [facility] 112 [facility] [address] [place] [address] Dannielle Patel MD 112 [facility] [address] [place] [address] Social History Tobacco Use Types Packs/Day Years [...] How often do you attend chur or alevism services? More than 4 times per year 06/04/2023 Do you belong to any clubs o r organizations such as synagogue groups, unions, fraternal or athletic groups, or [...] Recorded Patient Health Questionnaire-2 Score 0 10/09/2024 [facility] [place] of Occupat ional Health - Occupational Stress [...] place to sleep or slept in a usp (including now)? No 06/04/2023 Sex and Gender [...] [facility] [place] [address] [facility] [address] [place] [phone] Merry Ray NP [address] [facility] [address] [place] [address] 06/06/2025 8:30 AM EDT Office Visit [facility] [place] [address] [facility] [address] [place] [address] Mono Knowles MD [address] [facility] [address] [place] [address] documented as of this encounter Visit Diagnoses Not on filedocumented in this encounter Care Teams Trouble Lineman Relationship Specialty Start Date End Date Mono Knowles MD [address] [facility] [address] [place] [address] PCP - Jonathan FLORES 09/13/21 Mono Knowles MD [address] [facility] [address] [place] [address] PCP - General Internal Medicine 03/01/23 Summer Velazquez, JOAN [address] [place] [address] Clinical Advocate Family Medicine 10/20/24 11/28/24 Ruth Johnston LPN [address] [facility] [address] [place] [address] 11/28/24 05/09/25 documented as of this encounter
--- OUTSIDE RECORDS SUMMARY | 2025-05-26 11:41 | XMS_ITS | Encounter Summary ---
Author Organization [facility] Address [address] [place] [address] Care Team Providers Care Sales Department Clerk Name Role Phone Mono Knowles MD Unavailable [phone] Mono Knowles MD Primary Care Provider [phone] Summer Velazquez RN Unavailable [phone] Ruth Johnston LPN Unavailable Encounter Details Date Type Department Care Team ([facility] Contact Info) Description 06/26/2024 Abstract [facility] [place] [facility] 112 [facility] 110 [place] [address] Mono Knowles MD 112 [facility] 110 [place] [address] Social History Tobacco Use Types Packs/Day Years [...] How often do you attend chur or episcopal services? More than 4 times per year 06/04/2023 Do you belong to any clubs o r organizations such as confucianist groups, unions, fraternal or athletic groups, or [...] Date Recorded Patient Health Questionnaire-2 Score 0 10/27/2023 [facility] [place] of Occupat ional Health - Occupational Stress [...] place to sleep or slept in a group home (including now)? No 06/04/2023 Sex and Gender [...] Visit [facility] [place] [address] [facility] [address] [place] [phone] Merry Ray NP [address] [place] [address] 06/06/2025 8:30 AM EDT Office Visit [facility] [place] [facility] [address] [place] [address] Mono Knowles MD [address] [place] [address] documented as of this encounter Visit Diagnoses Not on filedocumented in this encounter Care Teams Sales Department Clerk Relationship Specialty Start Date End Date Mono Knowles MD [address] [facility] 110 [place] [address] PCP - Jonathan FLORES 09/13/21 Mono Knowles MD [address] [facility] [address] [place] [address] PCP - General Internal Medicine 03/01/23 Summer Velazquez, RN [address] [place] [address] Clinical [facility] Family Medicine 10/20/24 11/28/24 Ruth Johnston LPN [address] [facility] [address] [place] [address] 11/28/24 05/09/25 documented as of this encounter
--- OUTSIDE RECORDS SUMMARY | 2025-05-26 11:41 | XMS_ITS | Encounter Summary ---
Author Organization [facility] Address [address] [place] [address] Care Team Providers Care Helper Metal Hanging Name Role Phone Mono Knowles MD Unavailable [phone] Mono Knowles MD Primary Care Provider [phone] Summer Velazquez RN Unavailable [phone] Ruth Johnston LPN Unavailable Encounter Details Date Type Department Care Team ([facility] Contact Info) Description 06/26/2024 Abstract [facility] [place] [facility] 112 [facility] 110 [place] [address] Mono Knowles MD 112 [facility] 110 [place] [address] Social History Tobacco Use Types Packs/Day Years [...] How often do you attend chur or yazidi services? More than 4 times per year 06/04/2023 Do you belong to any clubs o r organizations such as alevism groups, unions, fraternal or athletic groups, or [...] Recorded Patient Health Questionnaire-2 Score 0 10/27/2023 [facility] [place] of Occupat ional Health - Occupational Stress [...] Visit [facility] [place] Anderson [address] [facility] 110 [place] [phone] Merry Ray NP [address] [place] [address] 06/06/2025 8:30 AM EDT Office Visit [facility] [place] Zhange [address] [place] [address] Mono Knowles MD [address] [place] [address] documented as of this encounter Visit Diagnoses Not on filedocumented in this encounter Care Teams Helper Metal Hanging Relationship Specialty Start Date End Date Mono Knowles MD [address] [facility] 110 [place] [address] PCP - Jonathan FLORES 09/13/21 Mono Knowles MD [address] [facility] 110 [place] [address] PCP - General Internal Medicine 03/01/23 Summer Velazquez, RN [address] [place] [address] Clinical [facility] Family [facility] 10/20/24 11/28/24 Ruth Johnston LPN [address] [facility] 110 [place] [address] 11/28/24 05/09/25 documented as of this encounter
--- OUTSIDE RECORDS SUMMARY | 2025-05-26 11:41 | XMS_ITS | Encounter Summary ---
Author Organization [facility] Address [address] [place] [address] Care Team Providers Care Hot Metal Charger Name Role Phone Mono Knowles MD Unavailable [phone] Mono Knowles MD Primary Care Provider [phone] Summer Velazquez RN Unavailable [phone] Ruth Johnston LPN Unavailable Encounter Details Date Type Department Care Team ([facility] Contact Info) Description 09/11/2024 Abstract [facility] [place] [facility] 112 [facility] 110 [place] [address] Mono Knowles MD [address] [facility] 110 [place] [address] Social History Tobacco Use Types Packs/Day Years [...] How often do you attend chur or taoist services? More than 4 times per year [...] Recorded Patient Health Questionnaire-2 Score 0 10/27/2023 [facility] [place] of Occupat ional Health - Occupational Stress [...] Visit [facility] [place] Anderson [address] [facility] 110 [place] [phone] Merry Ray NP [address] [place] [address] 06/06/2025 8:30 AM EDT Office Visit [facility] [place] Zhange [address] [place] [address] Mono Knowles MD [address] [place] [address] documented as of this encounter Visit Diagnoses Not on filedocumented in this encounter Care Teams Hot Metal Charger Relationship Specialty Start Date End Date Mono Knowles MD [address] [facility] 110 [place] [address] PCP - Jonathan FLORES 09/13/21 Mono Knowels MD [address] [facility] 110 [place] [address] PCP - General Internal Medicine 03/01/23 Summer Velazquez, RN [address] [place] [address] Clinical Advocate Family Medicine 10/20/24 11/28/24 Ruth Johnston LPN [address] [facility] 110 [place] [address] 11/28/24 05/09/25 documented as of this encounter
--- OUTSIDE RECORDS SUMMARY | 2025-05-26 11:41 | XMS_ITS | Encounter Summary ---
Author Organization [facility] Address [address] [place] [address] Care Team Providers Care Highway Landscape Architect Name Role Phone Mono Knowles MD Unavailable [phone] Mono Knowles MD Primary Care Provider [phone] Summer Velazquez RN Unavailable [phone] Ruth Johnston LPN Unavailable Encounter Details Date Type Department Care Team ([facility] Contact Info) Description 06/09/2024 Abstract [facility] [place] [facility] 112 [facility] 110 [place] [address] Mono Knowles MD 112 [facility] 110 [place] [address] Social History Tobacco Use Types Packs/Day Years [...] any clubs o r organizations such as zoroastrianism groups, unions, fraternal or athletic groups, or [...] Recorded Patient Health Questionnaire-2 Score 0 10/27/2023 [facility] [place] of Occupat ional Health - Occupational Stress [...] place to sleep or slept in a nursing home (including now)? No 06/04/2023 Sex and [...] Visit [facility] [place] Anderson [address] [facility] 110 [place] [phone] Merry Ray NP [address] [place] [address] 06/06/2025 8:30 AM EDT Office Visit [facility] [place] [facility]ange [address] [place] [address] Mono Knowles MD [address] [place] [address] documented as of this encounter Visit Diagnoses Not on filedocumented in this encounter Care Teams Highway Landscape Architect Relationship Specialty Start Date End Date Mono Knowles MD [address] [facility] 110 [place] [address] PCP - Jonathan FLORES 09/13/21 Mono Knowles MD [address] [facility] 110 [place] [address] PCP - General Internal Medicine 03/01/23 Summer Velazquez, RN [address] [place] [address] Clinical Advocate Family Medicine 10/20/24 11/28/24 Ruth Johnston LPN [address] [facility] 110 [place] [address] 11/28/24 05/09/25 documented as of this encounter
--- OUTSIDE RECORDS SUMMARY | 2025-05-26 11:41 | XMS_ITS | Encounter Summary ---
Author Organization [facility] Address [address] [place] [address] Care Team Providers Care Insurance Claims Assistant Name Role Phone Mono Knowles MD Unavailable [phone] Mono Knowles MD Primary Care Provider [phone] Summer Velazquez RN Unavailable [phone] Ruth Johnston LPN Unavailable Encounter Details Date Type Department Care Team ([facility] Contact Info) Description 11/21/2024 Abstract [facility] [place] [facility] 112 [facility] 110 [place] [address] Mono Knowles MD 112 [facility] 110 [place] [address] Social History Tobacco Use Types Packs/Day Years [...] How often do you attend chur or jew services? More than 4 times per year 06/04/2023 Do you belong to any clubs o r organizations such as christianity groups, unions, fraternal or athletic groups, or [...] Recorded Patient Health Questionnaire-2 Score 0 10/09/2024 [facility] [place] of Occupat ional Health - Occupational Stress [...] place to sleep or slept in a fdc (including now)? No 06/04/2023 Sex and Gender [...] Visit [facility] [place] Anderson [address] [facility] 110 [place] [phone] Merry Ray NP [address] [place] [address] 06/06/2025 8:30 AM EDT Office Visit [facility] [place] [facility]ange [address] [place] [phone] Mono Knowles MD [address] [place] [address] documented as of this encounter Visit Diagnoses Not on filedocumented in this encounter Care Teams Insurance Claims Assistant Relationship Specialty Start Date End Date Mono Knowles MD [address] [facility] 110 [place] [address] PCP - Jonathan FLORES 09/13/21 Mono Knowles MD [address] [facility] 110 [place] [address] PCP - General Internal Medicine 03/01/23 Summer Velazquez, RN [address] [place] [place] [address] Clinical Advocate Family Medicine 10/20/24 11/28/24 Ruth Johnston LPN [address] [facility] 110 [place] [address] 11/28/24 05/09/25 documented as of this encounter
--- OUTSIDE RECORDS SUMMARY | 2025-05-26 11:41 | XMS_ITS | Encounter Summary ---
Author Organization [facility] Address [address] [place] [address] Care Team Providers Care Spinning Mule Operator Name Role Phone Mono Knowles MD Unavailable [phone] Mono Knowles MD Primary Care Provider [phone] Summer Velazquez RN Unavailable [phone] Ruth Johnston LPN Unavailable Encounter Details Date Type Department Care Team ([facility] Contact Info) Description 10/23/2024 Abstract [facility] [place] [facility] 112 [facility] 110 [place] [address] Mono Knowles MD 112 [facility] 110 [place] [address] Social History Tobacco Use Types Packs/Day Years [...] How often do you attend chur or christianity services? More than 4 times per year 06/04/2023 Do you belong to any clubs o r organizations such as hoahaoism groups, unions, fraternal or athletic groups, or [...] Recorded Patient Health Questionnaire-2 Score 0 10/09/2024 [facility] [place] of Occupat ional Health - Occupational Stress [...] place to sleep or slept in a assisted (including now)? No 06/04/2023 Sex and Gender [...] Visit [facility] [place] Anderson [address] [facility] 110 [place] [phone] Merry Ray NP [address] [place] [address] 06/06/2025 8:30 AM EDT Office Visit [facility] [place] [facility] [address] [place] [address] Mono Knowles MD [address] [place] [address] documented as of this encounter Visit Diagnoses Not on filedocumented in this encounter Care Teams Spinning Mule Operator Relationship Specialty Start Date End Date Mono Knowles MD [address] [facility] 110 [place] [address] PCP - Jonathan FLORES 09/13/21 Mono Knowles MD [address] [facility] 110 [place] [address] PCP - General Internal Medicine 03/01/23 Summer Velazquez, RN [address] [place] [address] Clinical [facility] Family Medicine 10/20/24 11/28/24 Ruth Johnston LPN [address] [facility] 110 [place] [address] 11/28/24 05/09/25 documented as of this encounter
--- OUTSIDE RECORDS SUMMARY | 2025-05-26 11:41 | XMS_ITS | Encounter Summary ---
Author Organization [facility] Address [address] [place] [address] Care Team Providers Care Press Set Up Person Name Role Phone Mono Knowles MD Unavailable [phone] Mono Knowles MD Primary Care Provider [phone] Summer Velazquez RN Unavailable [phone] Ruth Johnston LPN Unavailable Encounter Details Date Type Department Care Team ([facility] Contact Info) Description 10/23/2024 Abstract [facility] [place] [facility] [address] [facility] 110 [place] [address] Mono Knowles MD 112 [facility] 110 [place] [address] Social History Tobacco Use Types Packs/Day Years [...] How often do you attend chur or druze services? More than 4 times per year 06/04/2023 Do you belong to any clubs o r organizations such as baptist groups, unions, fraternal or athletic groups, or [...] Recorded Patient Health Questionnaire-2 Score 0 10/09/2024 [facility] [place] of Occupat ional Health - Occupational Stress [...] Visit [facility] [place] Anderson [address] [facility] 110 [place] [phone] Merry Ray NP [address] [place] [address] 06/06/2025 8:30 AM EDT Office Visit [facility] [place] Zhange [address] [place] [address] Mono Knowles MD [address] [place] [address] documented as of this encounter Visit Diagnoses Not on filedocumented in this encounter Care Teams Press Set Up Person Relationship Specialty Start Date End Date Mono Knowles MD [address] [facility] 110 [place] [address] PCP - Jonathan FLORSE 09/13/21 Mono Knowles MD [address] [facility] 110 [place] [address] PCP - General Internal Medicine 03/01/23 Summer eVlazquez, RN [address] [place] [address] Clinical Advocate Family Medicine 10/20/24 11/28/24 Ruth Johnston LPN [address] [facility] 110 [place] [address] 11/28/24 05/09/25 documented as of this encounter
--- OUTSIDE RECORDS SUMMARY | 2025-05-26 11:41 | XMS_ITS | Encounter Summary ---
Author Organization [facility] Address [address] [place] [address] Care Team Providers Care Self Propelled Dredge Operator Name Role Phone Mono Knowles MD Unavailable [phone] Mono Knowles MD Primary Care Provider [phone] Summer Velazquez RN Unavailable [phone] Ruth Johnston LPN Unavailable Encounter Details Date Type Department Care Team ([facility] Contact Info) Description 10/19/2024 Abstract [facility] [place] [facility] 112 [facility] 110 [place] [address] Mono Knowles MD 112 [facility] 110 [place] [address] Social History Tobacco Use Types Packs/Day Years [...] How often do you attend chur or scientologist services? More than 4 times per year 06/04/2023 Do you belong to any clubs o r organizations such as anabaptist groups, unions, fraternal or athletic groups, or [...] Recorded Patient Health Questionnaire-2 Score 0 10/09/2024 [facility] [place] of Occupat ional Health - Occupational Stress [...] place to sleep or slept in a halfway (including now)? No 06/04/2023 Sex and Gender [...] Visit [facility] [place] Anderson [address] [facility] 110 [place] [phone] Merry Ray NP [address] [place] [address] 06/06/2025 8:30 AM EDT Office Visit [facility] [place] Zhange [address] [place] [address] Mono Knowles MD [address] [place] [address] documented as of this encounter Visit Diagnoses Not on filedocumented in this encounter Care Teams Self Propelled Dredge Operator Relationship Specialty Start Date End Date Mono Knowles MD [address] [facility] 110 [place] [address] PCP - Jonathan FLORES 09/13/21 Mono Knowles MD [address] [facility] 110 [place] [address] PCP - General Internal Medicine 03/01/23 Summer Velazquez, RN [address] [place] [address] Clinical Advocate Family Medicine 10/20/24 11/28/24 Ruth Johnston LPN [address] [facility] 110 [place] [address] 11/28/24 05/09/25 documented as of this encounter
--- OUTSIDE RECORDS SUMMARY | 2025-05-26 11:41 | XMS_ITS | Encounter Summary ---
Author Organization [facility] Address [address] [place] [address] Care Team Providers Care Director Of Student Aid Name Role Phone Mono Knowles MD Unavailable [phone] Mono Knowles MD Primary Care Provider [phone] Summer Velazquez RN Unavailable [phone] Ruth Johnston LPN Unavailable Encounter Details Date Type Department Care Team ([facility] Contact Info) Description 06/26/2024 Abstract [facility] [place] [facility] 112 [facility] 110 [place] [address] oMno Knowles MD 112 [facility] 110 [place] [address] Social History Tobacco Use Types Packs/Day Years [...] How often do you attend chur or zoroastrian services? More than 4 times per year 06/04/2023 Do you belong to any clubs o r organizations such as restorationism groups, unions, fraternal or athletic groups, or [...] Recorded Patient Health Questionnaire-2 Score 0 10/27/2023 [facility] [place] of Occupat ional Health - Occupational Stress [...] place to sleep or slept in a retirement (including now)? No 06/04/2023 Sex and Gender [...] Visit [facility] [place] Anderson [address] [facility] 110 [place] [phone] Merry Ray NP [address] [place] [address] 06/06/2025 8:30 AM EDT Office Visit [facility] [place] Zhange [address] [place] [phone] Mono Knowles MD [address] [place] [address] documented as of this encounter Visit Diagnoses Not on filedocumented in this encounter Care Teams Director Of Student Aid Relationship Specialty Start Date End Date Mono Knowles MD [address] [facility] 110 [place] [address] PCP - Jonathan FLORES 09/13/21 Mono Knowles MD [address] [facility] 110 [place] [address] PCP - General Internal Medicine 03/01/23 Summer Velazquez, RN [address] [place] [address] Clinical Advocate Family Medicine 10/20/24 11/28/24 Ruth Johnston LPN [address] [facility] 110 [place] [address] 11/28/24 05/09/25 documented as of this encounter
--- OUTSIDE RECORDS SUMMARY | 2025-05-26 11:41 | XMS_ITS | Encounter Summary ---
Author Organization [facility] Address [address] [place] [address] Care Team Providers Care Inspector Firearms Name Role Phone Mono Knowles MD Unavailable [phone] Mono Knowles MD Primary Care Provider [phone] Summer Velazquez RN Unavailable [phone] Ruth Johnston LPN Unavailable Encounter Details Date Type Department Care Team ([facility] Contact Info[facility] Description 05/10/2024 External Result Encounter [facility] [place] [facility] [address] [facility] 110 [place] [address] Mono Knowles MD [address] [facility] 110 [place] [address] Social History Tobacco Use Types Packs/Day Years Used Date Smoking Tobacco: Former Cigarettes Q uit: 09/13/2000 Smokeless Tobacco: Never Comments:Quit smoking 10 yea rs ago Alcohol Use Standard Drinks/Week Comments Never 0 (1 standard drink = 0.6 oz pur e alcohol) Caffeine 1-2 cups/day Humiliation, Afraid, Rape, and Kick questionnair e [...] How often do you attend chur or mandaen services? More than 4 times per year 06/04/2023 Do you belong to any clubs o r organizations such as advent groups, unions, fraternal or athletic groups, or [...] Recorded Patient Health Questionnaire-2 Score 0 10/27/2023 [facility] of Occupat ional Health - [...] place to sleep or slept in a mcc (including now)? No 06/04/2023 Sex and Gender [...] Visit [facility] [place] Zhang [address] [facility] 110 [place] [phone] Merry Ray NP [address] [facility] 110 [place] [address] 06/06/2025 8:30 AM EDT Office Visit [facility] [place] Kaync [address] [facility] [address] [place] [phone] Mono Knowles MD [address] [place] [address] documented as of this encounter Procedures Procedure Name Priority Date/Time Associated Diagnosis Comments XR CHEST 2 VIEWS 05/10/2024 1:23 PM EDT documented in this encounter Results * XR chest 2 views (05/10/2024 1:23 PM EDT) Anatomical Region Laterality Modality Chest Radiographic Teresa ging 05/10/2024 1:23 PM EDT Narrative 05/10/2024 1:22 PM EDT THIS EXAM WAS PERFORMED AT [facility] and lateral chest: HISTORY: Cough. 2 views the chest are obtained. Lungs are clear. The cardiac and mediastinal contours are within normal limits. There is no pneumothorax, effusion, or vascular congestion. Osseous structures appear intact. IMPRESSION: No acute findings. Finalized by Joey Tejada MD on 05/10/2024 1:22 PM Procedure Note Radiology, Radiologist, MD - 05/10/2024 THIS EXAM WAS PERFORMED AT [facility] and lateral chest: HISTORY: Cough. 2 views the chest are obtained. Lungs are clear. The cardiac andmediastinal contours are within normal limits. There is no pneumothorax,effusion, or vascular congestion. Osseous structures appear intact. IMPRESSION: No acute findings. Finalized by Joey Tejada MD on 05/10/2024 1:22 PM Mono Knowles MD IMG XR PROCEDURES Final Result documented in this encounter Visit Diagnoses Not on filedocumented in this encounter Care Teams Inspector Firearms Relationship Specialty Start Date End Date Mono Knowles MD [address] [facility] 110 [place] [address] PCP - Jonathan FLORES 09/13/21 Mono Knowles MD [address] [facility] 110 [place] [address] PCP - General Internal Medicine 03/01/23 Summer Velazquez, RN [address] [place] [address] Clinical Advocate Family Medicine 10/20/24 11/28/24 Ruth Johnston LPN [address] [address] 11/28/24 05/09/25 documented as of this encounter
--- OUTSIDE RECORDS SUMMARY | 2025-05-26 11:41 | XMS_ITS | Encounter Summary ---
Author Organization [facility] Address [address] [place] [address] Care Team Providers Care Social Security Assessor Name Role Phone Mono Knowles MD Unavailable [phone] Mono Knowles MD Primary Care Provider Summer Velazquez RN Unavailable [phone] Ruth Johnston LPN Unavailable Encounter Details Date Type Department Care Team (Late Contact Info) Description 02/03/2024 [facility] [place] [facility] 112 [facility] 110 [place] [address] Mono Knowles MD 112 [facility] 110 [place] [address] Social History Tobacco Use Types Packs/Day Years [...] week 06/04/2023 How often do you attend [facility] or christianity services? More than 4 times per year 06/04/2023 Do you belong to any clubs o r organizations such as sabianist groups, unions, fraternal or athletic groups, or [...] Recorded Patient Health Questionnaire-2 Score 0 10/27/2023 [facility] of Occupat iondc Health - Occupational Stress Questionnaire Answer Date [...] 05/30/2025 11:30 AM EDT Office Visit [facility] [place] Zhang [address] [facility] [address] [place] [address] Merry Ray NP [address] [place] [address] 06/06/2025 8:30 AM EDT Office Visit [facility] [place] Zhange [address] [place] [address] Mono Knowles MD [address] [place] [address] documented as of this encounter Visit Diagnoses Not on filedocumented in this encounter Care Teams Social Security Assessor Relationship Specialty Start Date End Date Mono Knowles MD [address] [place] [address] PCP - Jonathan FLORES 09/13/21 Mono Knowles MD [address] [facility] 110 [place] [address] PCP - General Internal Medicine 03/01/23 Summer Velazquez, RN [address] [place] [address] Clinical Advocate Family Medicine 10/20/24 11/28/24 Ruth Johnston LPN [address] [address] 11/28/24 05/09/25 documented as of this encounter
--- OUTSIDE RECORDS SUMMARY | 2025-05-26 11:41 | XMS_ITS | Encounter Summary ---
Author Organization [facility] Address [address] [place] [address] Care Team Providers Care Passenger Representative Name Role Phone Mono Knowles MD Unavailable [phone] Mono Knowles MD Primary Care Provider [phone] Summer Velazquez RN Unavailable [phone] Ruth Johnston LPN Unavailable Encounter Details Date Type Department Care Team (Late Contact Info) Description 11/02/2023 Abstract [facility] [place] [facility] [address] [facility] 110 [place] [address] Mono Knowles MD 112 [facility] 110 [place] [address] Social History Tobacco Use Types Packs/Day Years [...] week 06/04/2023 How often do you attend [facility] or catholic services? More than 4 times per year 06/04/2023 Do you belong to any clubs o r organizations such as confucianism groups, unions, fraternal or athletic groups, or [...] Recorded Patient Health Questionnaire-2 Score 0 10/27/2023 [facility] of Occupat ionfl Health - Occupational Stress Questionnaire Answer Date [...] Visit [facility] [place] Zhang [address] [facility] 110 [place] [address] Merry Ray NP [address] [place] [address] 06/06/2025 8:30 AM EDT Office Visit [facility] [place] [facility]ange [address] [place] [address] Mono Knowles MD [address] [place] [address] documented as of this encounter Visit Diagnoses Not on filedocumented in this encounter Care Teams Passenger Representative Relationship Specialty Start Date End Date Mono Knowles MD [address] [place] [address] PCP - Jonathan FLORES 09/13/21 Mono Knowles MD [address] [facility] 110 [place] [address] PCP - General Internal Medicine 03/01/23 Summer Velazquez, RN [address] [place] [address] Clinical Advocate Family Medicine 10/20/24 11/28/24 Ruth Johnston LPN [address] [address] 11/28/24 05/09/25 documented as of this encounter
--- OUTSIDE RECORDS SUMMARY | 2025-05-26 11:41 | XMS_ITS | Encounter Summary ---
Author Organization [facility] Address [address] [place] [address] Care Team Providers Care Cash Posting Clerk Name Role Phone Mono Knowles MD Unavailable [phone] Mono Knowles MD Primary Care Provider [phone] Summer Velazquez RN Unavailable [phone] Ruth Johnston LPN Unavailable Encounter Details Date Type Department Care Team (Late Contact Info) Description 11/03/2023 Abstract [facility] [place] [facility] 112 [facility] 110 [place] [address] Mono Knowles MD 112 [facility] 110 [place] [address] Social History Tobacco Use Types Packs/Day Years [...] week 06/04/2023 How often do you attend [facility] or quaker services? More than 4 times [...] Recorded Patient Health Questionnaire-2 Score 0 10/27/2023 [facility] of Occupat ionok Health - Occupational Stress Questionnaire Answer Date [...] Visit [facility] [place] Zhang [address] [facility] 110 [place] [address] Merry Ray NP [address] [place] [address] 06/06/2025 8:30 AM EDT Office Visit [facility] [place] Zhange [address] [place] [address] Mono Knowles MD [address] [place] [address] documented as of this encounter Visit Diagnoses Not on filedocumented in this encounter Care Teams Cash Posting Clerk Relationship Specialty Start Date End Date Mono Knowles MD [address] [place] [address] PCP - Jonathan FLORES 09/13/21 Mono Knowles MD [address] [facility] 110 [place] [address] PCP - General Internal Medicine 03/01/23 Summer Velazquez, RN [address] [place] [address] Clinical Advocate Family Medicine 10/20/24 11/28/24 Ruth Johnston LPN [address] [address] 11/28/24 05/09/25 documented as of this encounter
--- OUTSIDE RECORDS SUMMARY | 2025-05-26 11:41 | XMS_ITS | Encounter Summary ---
Author Organization [facility] Address [address] [place] [address] Care Team Providers Care Stove Tender Name Role Phone Mono Knowles MD Unavailable [phone] Mono Knowles MD Primary Care Provider [phone] Summer Velazquez RN Unavailable [phone] Ruth Johnston LPN Unavailable Encounter Details Date Type Department Care Team ([facility] Contact Info) Description 06/26/2024 Abstract [facility] [place] [facility] 112 [facility] 110 [place] [address] Mono Knowles MD 112 [facility] 110 [place] [address] Social History Tobacco Use Types Packs/Day Years [...] How often do you attend chur or rastafari services? More than 4 times per year 06/04/2023 Do you belong to any clubs o r organizations such as evangelical groups, unions, fraternal or athletic groups, or [...] Recorded Patient Health Questionnaire-2 Score 0 10/27/2023 [facility] [place] of Occupat ional Health - Occupational Stress [...] place to sleep or slept in a snf (including now)? No 06/04/2023 Sex and Gender [...] WAY [facility] 110 [place] [phone] Merry Ray NP [address] [place] [address] 06/06/2025 8:30 AM EDT Office Visit [facility] [place] [facility]ange [address] [place] [address] Mono Knowles MD [address] [place] [address] documented as of this encounter Visit Diagnoses Not on filedocumented in this encounter Care Teams Stove Tender Relationship Specialty Start Date End Date Mono Knowles MD [address] [facility] 110 [place] [address] PCP - Jonathan FLORES 09/13/21 Mono Knowles MD [address] [facility] 110 [place] [address] PCP - General Internal Medicine 03/01/23 Summer Velazquez, RN [address] [place] [address] Clinical Advocate Family Medicine 10/20/24 11/28/24 Ruth Johnston LPN [address] [facility] 110 [place] [address] 11/28/24 05/09/25 documented as of this encounter
--- OUTSIDE RECORDS SUMMARY | 2025-05-26 11:41 | XMS_ITS | Encounter Summary ---
Author Organization [facility] Address [address] [place] [address] Care Team Providers Care Veneer Glue Jointer Feedback Name Role Phone Mono Knowles MD Unavailable [phone] Mono Knowles MD Primary Care Provider [phone] Summer Velazquez RN Unavailable [phone] Ruth Johnston LPN Unavailable Encounter Details Date Type Department Care Team ([facility] Contact Info) Description 06/26/2024 Abstract [facility] [place] [facility] 112 [facility] 110 [place] [address] Mono Knowles MD 112 [facility] 110 [place] [address] Social History Tobacco Use Types Packs/Day Years [...] How often do you attend chur or moravian services? More than 4 times per year 06/04/2023 Do you belong to any clubs o r organizations such as rastafarian groups, unions, fraternal or athletic groups, or [...] Recorded Patient Health Questionnaire-2 Score 0 10/27/2023 [facility] [place] of Occupat ional Health - Occupational Stress [...] place to sleep or slept in a half-way (including now)? No 06/04/2023 Sex and Gender [...] Visit [facility] [place] [address] [facility] 110 [place] [phone] Merry Ray NP [address] [place] [address] 06/06/2025 8:30 AM EDT Office Visit [facility] [place] [facility] [address] [place] [address] Mono Knowles MD [address] [place] [address] documented as of this encounter Visit Diagnoses Not on filedocumented in this encounter Care Teams Veneer Glue Jointer Feedback Relationship Specialty Start Date End Date Mono Knowles MD [address] [facility] 110 [place] [address] PCP - Jonathan FLORES 09/13/21 Mono Knowles MD [address] [facility] 110 [place] [address] PCP - General Internal Medicine 03/01/23 Summer Velazquez, RN [address] [place] [address] Clinical Advocate Family Medicine 10/20/24 11/28/24 uRth Johnston LPN [address] [facility] 110 [place] [address] 11/28/24 05/09/25 documented as of this encounter
--- OUTSIDE RECORDS SUMMARY | 2025-05-26 11:41 | XMS_ITS | Encounter Summary ---
Author Organization [facility] Address [address] [place] [address] Care Team Providers Care Scrap Crusher Name Role Phone Mono Knowles MD Unavailable [phone] Mono Knowles MD Primary Care Provider [phone] Summer Velazquez RN Unavailable [phone] Ruth Johnston LPN Unavailable Encounter Details Date Type Department Care Team ([facility] Contact Info) Description 10/23/2024 Abstract [facility] [place] [facility] 112 [facility] 110 [place] [address] Mono Knowles MD 112 [facility] 110 [place] [address] Social History Tobacco Use Types Packs/Day Years [...] How often do you attend chur or pentecostal services? More than 4 times per year [...] Recorded Patient Health Questionnaire-2 Score 0 10/09/2024 [facility] [place] of Occupat ional Health - Occupational Stress [...] [facility] 110 [place] [phone] Merry Ray NP [address] [place] [address] 06/06/2025 8:30 AM EDT Office Visit [facility] [place] [facility]ange [address] [place] [address] Mono Knowles MD [address] [place] [address] documented as of this encounter Visit Diagnoses Not on filedocumented in this encounter Care Teams Scrap Crusher Relationship Specialty Start Date End Date Mono Knowles MD [address] [facility] 110 [place] [address] PCP - Jonathan FLORES 09/13/21 Mono Knowles MD [address] [facility] 110 [place] [address] PCP - General Internal Medicine 03/01/23 Summer Velazquez, RN [address] [place] [address] Clinical Advocate Family Medicine 10/20/24 11/28/24 Ruth Johnston LPN [address] [facility] 110 [place] [address] 11/28/24 05/09/25 documented as of this encounter
--- OUTSIDE RECORDS SUMMARY | 2025-05-26 11:41 | XMS_ITS | Encounter Summary ---
Author Organization [facility] Address [address] [place] [address] Care Team Providers Care Credit Analyst Name Role Phone Mono Knowles MD Unavailable [phone] Mono Knowles MD Primary Care Provider [phone] Summer Velazquez RN Unavailable [phone] Ruth Johnston LPN Unavailable Encounter Details Date Type Department Care Team ([facility] Contact Info) Description 06/26/2024 Abstract [facility] [place] [facility] 112 [facility] 110 [place] [address] Mono Knowles MD 112 [facility] 110 [place] [address] Social History Tobacco Use Types Packs/Day Years [...] Recorded Patient Health Questionnaire-2 Score 0 10/27/2023 [facility] [place] of Occupat ional Health - Occupational Stress [...] place to sleep or slept in a correction (including now)? No 06/04/2023 Sex and Gender [...] Visit [facility] [place] Anderson [address] [facility] 110 [place] [phone] Merry Ray NP [address] [place] [address] 06/06/2025 8:30 AM EDT Office Visit [facility] [place] [facility]ange [address] [place] [address] Mono Knowles MD [address] [place] [address] documented as of this encounter Visit Diagnoses Not on filedocumented in this encounter Care Teams Credit Analyst Relationship Specialty Start Date End Date Mono Knowles MD [address] [facility] 110 [place] [address] PCP - Jonathan FLORES 09/13/21 Mono Knowles MD [address] [facility] 110 [place] [address] PCP - General Internal Medicine 03/01/23 Summer Velazquez, RN [address] [place] [address] Clinical Advocate Family Medicine 10/20/24 11/28/24 Ruth Johnston LPN [address] [facility] 110 [place] [address] 11/28/24 05/09/25 documented as of this encounter
--- OUTSIDE RECORDS SUMMARY | 2025-05-26 11:41 | XMS_ITS | Encounter Summary ---
Author Organization [facility] Address [address] [place] [address] Care Team Providers Care Supervisor Pyrotechnic Loading Name Role Phone Mono Knowles MD Unavailable [phone] Mono Knowles MD Primary Care Provider [phone] Summer Velazquez RN Unavailable [phone] Ruth Johnston LPN Unavailable Encounter Details Date Type Department Care Team (Late Contact Info) Description 01/25/2024 Abstract [facility] [place] [facility] 112 [facility] 110 [place] [address] Mono Knowles MD 112 [facility] 110 [place] [address] Social History Tobacco Use Types Packs/Day Years [...] week 06/04/2023 How often do you attend [facility] or episcopal services? More than 4 times per year 06/04/2023 Do you belong to any clubs o r organizations such as religious groups, unions, fraternal or athletic groups, or [...] Recorded Patient Health Questionnaire-2 Score 0 10/27/2023 [facility] of Occupat ionla Health - Occupational Stress Questionnaire Answer Date [...] place to sleep or slept in a penitentiary (including now)? No 06/04/2023 Sex and Gender [...] Visit [facility] [place] Zhang [address] [facility] 110 [place] [address] Merry Ray NP [address] [place] [address] 06/06/2025 8:30 AM EDT Office Visit [facility] [place] [facility] [address] [place] [address] Mono Knowles MD [address] [place] [address] documented as of this encounter Visit Diagnoses Not on filedocumented in this encounter Care Teams Supervisor Pyrotechnic Loading Relationship Specialty Start Date End Date Mono Knowles MD [address] [place] [address] PCP - Jonathan FLORES 09/13/21 Mono Knowles MD [address] [facility] 110 [place] [address] PCP - General Internal Medicine 03/01/23 Summer Velazquez, RN [address] [place] [address] Clinical Advocate Family Medicine 10/20/24 11/28/24 Ruth Johnston LPN [address] [address] 11/28/24 05/09/25 documented as of this encounter
--- OUTSIDE RECORDS SUMMARY | 2025-05-26 11:41 | XMS_ITS | Encounter Summary ---
Author Organization [facility] Address [address] [place] [address] Care Team Providers Care Telehealth Case Manager Name Role Phone Mono Knowles MD Unavailable [phone] Mono Knowles MD Primary Care Provider [phone] Summer Velazquez RN Unavailable [phone] Ruth Johnston LPN Unavailable Encounter Details Date Type Department Care Team (Late Contact Info) Description 12/09/2023 Abstract [facility] [place] [facility] 112 [facility] 110 [place] [address] Mono Knowles MD 112 [facility] 110 [place] [address] Social History Tobacco Use Types Packs/Day Years [...] week 06/04/2023 How often do you attend [facility] or holiness services? More than 4 times per year 06/04/2023 Do you belong to any clubs o r organizations such as buddhist groups, unions, fraternal or athletic groups, or [...] Recorded Patient Health Questionnaire-2 Score 0 10/27/2023 [facility] of Occupat ionut Health - Occupational Stress Questionnaire Answer Date [...] place to sleep or slept in a care home (including now)? No 06/04/2023 Sex and [...] Visit [facility] [place] Zhang [address] [facility] 110 [place] [address] Merry Ray NP [address] [place] [address] 06/06/2025 8:30 AM EDT Office Visit [facility] [place] [facility] [address] [place] [address] Mono Knowles MD [address] [place] [address] documented as of this encounter Visit Diagnoses Not on filedocumented in this encounter Care Teams Telehealth Case Manager Relationship Specialty Start Date End Date Mono Knowles MD [address] [place] [address] PCP - Jonathan FLORES 09/13/21 Mono Knowles MD [address] [facility] 110 [place] [address] PCP - General Internal Medicine 03/01/23 Summer Velazquez, RN [address] [place] [address] Clinical Advocate Family Medicine 10/20/24 11/28/24 Ruth Johnston LPN [address] [address] 11/28/24 05/09/25 documented as of this encounter
--- OUTSIDE RECORDS SUMMARY | 2025-05-26 11:41 | XMS_ITS | Encounter Summary ---
Author Organization [facility] Address [address] [place] [address] Care Team Providers Care Civil Celebrant Name Role Phone Mono Konwles MD Unavailable [phone] Mono Knowles MD Primary Care Provider [phone] Summer Velazquez RN Unavailable [phone] Ruth Johnston LPN Unavailable Encounter Details Date Type Department Care Team ([facility] Contact Info) Description 06/26/2024 Abstract [facility] [place] [facility] 112 [facility] 110 [place] [address] Mono Knowles MD 112 [facility] 110 [place] [address] Social History Tobacco Use Types Packs/Day Years [...] How often do you attend chur or mu-ism services? More than 4 times per year [...] Recorded Patient Health Questionnaire-2 Score 0 10/27/2023 [facility] [place] of Occupat ional Health - Occupational Stress [...] place to sleep or slept in a fci (including now)? No 06/04/2023 Sex and Gender [...] Visit [facility] [place] Anderson [address] [email or web address] [address] [place] [phone] Merry Ray NP [address] [place] [address] 06/06/2025 8:30 AM EDT Office Visit [facility] [place] Zhange [address] [place] [address] Mono Knowles MD [address] [place] [address] documented as of this encounter Visit Diagnoses Not on filedocumented in this encounter Care Teams Civil Celebrant Relationship Specialty Start Date End Date Mono Knowles MD [address] [facility] 110 [place] [address] PCP - Jonathan FLORES 09/13/21 Mono Knowles MD [address] [facility] 110 [place] [address] PCP - General Internal Medicine 03/01/23 Summer Velazquez, RN [address] [place] [address] Clinical Advocate Family Medicine 10/20/24 11/28/24 Ruth Johnston LPN [address] [facility] 110 [place] [address] 11/28/24 05/09/25 documented as of this encounter
--- OUTSIDE RECORDS SUMMARY | 2025-05-26 11:41 | XMS_ITS | Encounter Summary ---
Author Organization [facility] Address [address] [facility] [address], [address] [place] [address] Care Team Providers Care Freight Tallier Name Role Phone Mono Knowles MD Primary Care Provider [phone] Reason for Visit * Reason Comments Medication Refill Encounter Details Date Type Department Care Team (Late st Contact Info) Description 07/03/2020 Refill [facility] [address], [address] [place] [address] Darren Raegan MD Medication Refill Social History Tobacco Use Types Packs/Day Years Used Date Smoking Tobacco: Never Alcohol Use Standard Drinks/Week Comments No 0 (1 standard drink = 0.6 oz pur e alcohol) Sex and Gender Information Value Date Recorded Sex Assigned at Not on file Legal Sex Male 12:56 PM EST Gender Identity Not on file Sexual Orientation Not on file documented as of this encounter Plan of Treatment Not on file documented as of this encounter Visit Diagnoses Not on filedocumented in this encounter Additional Health Concerns Assessment Noted Time A Body Mass Index follow-up plan has been documented for the patient 05/07/2020 11:30 AM EDT documented as of this encounter Care Teams Freight Tallier Relationship Specialty Start Date End Date Mono Knowles MD PCP - General Internal Medicine 05/03/20 documented as of this encounter
--- OUTSIDE RECORDS SUMMARY | 2025-05-26 11:41 | XMS_ITS | Encounter Summary ---
Author Organization [facility] Address [address] [place] [address] Care Team Providers Care Assistant Teaching Professor Name Role Phone Mono Knowles MD Unavailable [phone] Mono Knowles MD Primary Care Provider [phone] Summer Velazquez RN Unavailable [phone] Ruth Johnston LPN Unavailable Encounter Details Date Type Department Care Team ([facility] Contact Info) Description 06/26/2024 Abstract [facility] [place] [facility] 112 [facility] 110 [place] [address] Mono Knowles MD 112 [facility] 110 [place] [address] Social History Tobacco Use Types Packs/Day Years [...] How often do you attend chur or temple services? More than 4 times per year [...] Recorded Patient Health Questionnaire-2 Score 0 10/27/2023 [facility] [place] of Occupat ional Health - Occupational Stress [...] Visit [facility] [place] Anderson [address] [facility] [address] [place] [phone] Merry Ray NP [address] [place] [address] 06/06/2025 8:30 AM EDT Office Visit [facility] [place] Zhange [address] [place] [address] Mono Knowles MD [address] [place] [address] documented as of this encounter Visit Diagnoses Not on filedocumented in this encounter Care Teams Assistant Teaching Professor Relationship Specialty Start Date End Date Mono Knowles MD [address] [facility] 110 [place] [address] PCP - Jonathan FLORES 09/13/21 Mono Knowles MD [address] [facility] 110 [place] [address] PCP - General Internal Medicine 03/01/23 Summer Velazquez, RN [address] [place] [place] [address] Clinical Advocate Family Medicine 10/20/24 11/28/24 Ruth Johnston LPN [address] [facility] 110 [place] [address] 11/28/24 05/09/25 documented as of this encounter
--- OUTSIDE RECORDS SUMMARY | 2025-05-26 11:41 | XMS_ITS | Encounter Summary ---
Author Organization [facility] Address [address] [place] [address] Care Team Providers Care Blade Operator Name Role Phone Mono Knowles MD Unavailable [phone] Mono Knowles MD Primary Care Provider [phone] Summer Velazquez RN Unavailable [phone] Ruth Johnston LPN Unavailable Encounter Details Date Type Department Care Team (Late st Contact Info) Description 10/25/2023 Orders Only [facility] [place] [facility] [address] [facility] [address] [place] [address] A, Unknown Practice [address] [place] [address] Social History Tobacco Use Types Packs/Day Years [...] any clubs o r organizations such as orthodox groups, unions, fraternal or athletic groups, or [...] Recorded Patient Health Questionnaire-2 Score 0 10/27[facility]2023 [facility] Questionnaire Answer Date Recorded [...] place to sleep or slept in a fpc (including now)? No 06/04/2023 Sex and Gender Information Value Date Recorded Sex Assigned at Not on file Legal Sex Male 6:55 PM EDT Gender Identity Not on file Sexual Orientation Not on file documented as of this encounter Functional Status * Over the past 2 weeks, how often have you been bothered by any of the following problems? Question Answer Date of Assessment Author Little interest or pleasure in doing things Not at all 10/27/2023 8:00 AM Odalys Floyd LP N Feeling down, depressed, or hopeless Not at all 10/27/2023 8:00 AM Odalys Floyd LP N Patient Health Questionnaire -2 Score 0 10/27/2023 8:00 AM Odalys Floyd LP N documented as of this encounter Plan of Treatment Upcoming Encounters Date Type Department Care Team (Late st Contact Info) Description 05/30/2025 11:30 AM EDT Office Visit [facility] [place] [facility] [address] [facility] [address] [place] [address] Merry Ray NP [address] 110 [place] [address] 06/06/2025 8:30 AM EDT Office Visit [facility] [place] [facility] [address] [facility] 110 [place] [address] Mono Knowles MD [address] [facility] 110 [place] [address] documented as of this encounter Procedures Procedure Name Priority Date/Time Associated Diagnosis Comments ELECTROCARDIOGRAM REPORT Routine 024 10:10 AM EST documented in this encounter Results * Electrocardiogram Report (10/24/2023 10:10 AM EST) us Unknown Practice A IN CLINIC/BEDSIDE ORDERABLES Final Result documented in this encounter Visit Diagnoses Not on filedocumented in this encounter Care Teams Blade Operator Relationship Specialty Start Date End Date Mono Knowles MD [address] [facility] 110 [place] [address] PCP - Jonathan FLORES 09/13/21 Mono Knowles MD [address] [facility] 110 [place] [address] PCP - General Internal Medicine 03/01/23 Summer Velazquez, JOAN [address] [place] [address] Clinical [facility]ocate Family Medicine 10/20/24 11/28/24 Ruth Johnston LPN [address] [facility] 110 [place] [address] 11/28/24 05/09/25 documented as of this encounter
--- OUTSIDE RECORDS SUMMARY | 2025-05-26 11:41 | XMS_ITS | Encounter Summary ---
Author Organization [facility] Address [address] [place] [address] Care Team Providers Care Wic Site Coordinator Name Role Phone Mono Knowles MD Unavailable [phone] Mono Knowles MD Primary Care Provider [phone] Summer Velazquez RN Unavailable [phone] Ruth Johnston LPN Unavailable Encounter Details Date Type Department Care Team ([facility] Contact Info) Description 06/22/2024 Abstract [facility] [place] [facility] [address] [facility] 110 [place] [address] Mono Knowles MD 112 [facility] 110 [place] [address] Social History Tobacco Use Types Packs/Day Years [...] 0 10/27/2023 [facility] of Occupat ional Health - Occupational Stress [...] Visit [facility] [place] [facility] [address] [facility] 110 [place] [phone] Merry Ray NP [address] [place] [address] 06/06/2025 8:30 AM EDT Office Visit [facility] [place] [facility] [address] [place] [address] Mono Knowles MD [address] [place] [address] documented as of this encounter Visit Diagnoses Not on filedocumented in this encounter Care Teams Wic Site Coordinator Relationship Specialty Start Date End Date Mono Knowles MD [address] [facility] 110 [place] [address] PCP - Jonathan FLORES 09/13/21 Mono Knowles MD [address] [facility] 110 [place] [address] PCP - General Internal Medicine 03/01/23 Summer Velazquez, RN [address] [address] Clinical Advocate Family Medicine 10/20/24 11/28/24 Ruth Johnston LPN [address] [facility] 110 [place] [address] 11/28/24 05/09/25 documented as of this encounter
--- OUTSIDE RECORDS SUMMARY | 2025-05-26 11:41 | XMS_ITS | Encounter Summary ---
Author Organization [facility] Address [address] [place] [address] Care Team Providers Care Director Of Home Health Services Name Role Phone Mono Knowles MD Unavailable [phone] Mono Knowles MD Primary Care Provider [phone] Summer Velazquez RN Unavailable [phone] Ruth Johnston LPN Unavailable Encounter Details Date Type Department Care Team ([facility] Contact Info) Description 06/26/2024 Abstract [facility] [place] [facility] 112 [facility] 110 [place] [address] Moon Knowles MD 112 [facility] 110 [place] [address] Social History Tobacco Use Types Packs/Day Years [...] How often do you attend chur or roman catholic services? More than 4 times per year 06/04/2023 Do you belong to any clubs o r organizations such as adventist groups, unions, fraternal or athletic groups, or [...] Recorded Patient Health Questionnaire-2 Score 0 10/27/2023 [facility] [place] of Occupat ional Health - Occupational Stress [...] 05/30/2025 11:30 AM EDT Office Visit [facility] [place] [facility] [address] [facility] [address] [place] [phone] Merry Ray NP [address] [place] [address] 06/06/2025 8:30 AM EDT Office Visit [facility] [place] [facility] [address] [place] [address] Mono Knowles MD [address] [place] [address] documented as of this encounter Visit Diagnoses Not on filedocumented in this encounter Care Teams Director Of Home Health Services Relationship Specialty Start Date End Date Mono Knowles MD [address] [facility] 110 [place] [address] PCP - Jonathan FLORES 09/13/21 Mono Knowles MD [address] [facility] [address] [place] [address] PCP - General Internal Medicine 03/01/23 Summer Velazquez, RN [address] [place] [address] Clinical Advocate Family Medicine 10/20/24 11/28/24 Ruth Johnston LPN [address] [facility] 110 [place] [address] 11/28/24 05/09/25 documented as of this encounter
--- OUTSIDE RECORDS SUMMARY | 2025-05-26 11:41 | XMS_ITS | Encounter Summary ---
Author Organization [facility] Address [address] [place] [address] Care Team Providers Care [place] Name Role Phone Mono Knowles MD Unavailable [phone] Mono Knowles MD Primary Care Provider [phone] Summer Velazquez RN Unavailable [phone] Ruth Johnston LPN Unavailable Encounter Details Date Type Department Care Team (Late Contact Info) Description 04/11/2024 Abstract [facility] [place] [facility] 112 [facility] 110 [place] [address] Mono Knowles MD 112 [facility] 110 [place] [address] Social History Tobacco Use Types Packs/Day Years [...] week 06/04/2023 How often do you attend [facility] or nondenominational services? More than 4 times per year 06/04/2023 Do you belong to any clubs o r organizations such as mandaen groups, unions, fraternal or athletic groups, or [...] Recorded Patient Health Questionnaire-2 Score 0 10/27/2023 [facility] of Occupat ionin Health - Occupational Stress Questionnaire Answer Date [...] Visit [facility] [place] [facility] [address] [facility] 110 [place] [address] Merry Ray NP [address] [place] [address] 06/06/2025 8:30 AM EDT Office Visit [facility] [place] [facility] [address] [place] [address] Mono Knowles MD [address] [place] [address] documented as of this encounter Visit Diagnoses Not on filedocumented in this encounter Care Teams [place] Relationship Specialty Start Date End Date Mono Knowles MD [address] [place] [address] PCP - Jonathan FLORES 09/13/21 Mono Knowles MD [address] [facility] 110 [place] [address] PCP - General Internal Medicine 03/01/23 Summer Velazquez, RN [address] [place] [address] Clinical Advocate Family Medicine 10/20/24 11/28/24 Ruth Johnston LPN [address] [address] 11/28/24 05/09/25 documented as of this encounter
--- OUTSIDE RECORDS SUMMARY | 2025-05-26 11:41 | XMS_ITS | Encounter Summary ---
Author Organization [facility] Address [address] [place] [address] Care Team Providers Care Battery Tester And Repairer Name Role Phone Mono Knowles MD Unavailable [phone] Mono Knowles MD Primary Care Provider [phone] Summer Velazquez RN Unavailable [phone] Ruth Johnston LPN Unavailable Encounter Details Date Type Department Care Team ([facility] Contact Info) Description 06/26/2024 Abstract [facility] [place] [facility] 112 [facility] 110 [place] [address] Mono Knowles MD 112 [facility] 110 [place] [address] Social History Tobacco Use Types Packs/Day Years [...] Recorded Patient Health Questionnaire-2 Score 0 10/27/2023 [facility] [place] of Occupat ional Health - Occupational Stress [...] place to sleep or slept in a senior living (including now)? No 06/04/2023 Sex and Gender [...] [facility] 110 [place] [phone] Merry Ray NP [address] [place] [address] 06/06/2025 8:30 AM EDT Office Visit [facility] [place] [facility] [address] [place] [address] Mono Knowles MD [address] [place] [address] documented as of this encounter Visit Diagnoses Not on filedocumented in this encounter Care Teams Battery Tester And Repairer Relationship Specialty Start Date End Date Mono Knowles MD [address] [facility] 110 [place] [address] PCP - Jonathan FLORES 09/13/21 Mono Knowles MD [address] [facility] 110 [place] [address] PCP - General Internal Medicine 03/01/23 Summer Velazquez, RN [address] [place] [address] Clinical Advocate Family Medicine 10/20/24 11/28/24 Ruth Johnston LPN [address] [facility] 110 [place] [address] 11/28/24 05/09/25 documented as of this encounter
--- OUTSIDE RECORDS SUMMARY | 2025-05-26 11:41 | XMS_ITS | Encounter Summary ---
Author Organization [facility] Address [address] [place] [address] Care Team Providers Care Machine Turner Name Role Phone Mono Knowles MD Unavailable [phone] Mono Knowles MD Primary Care Provider [phone] Summer Velazquez RN Unavailable [phone] Ruth Johnston LPN Unavailable Encounter Details Date Type Department Care Team (Late Contact Info) Description 07/11/2024 Clinisync Result Encounter [facility] External Department Unsolicited Mono Knowles MD 112 [facility] 110 [place] [address] Social History Tobacco Use Types Packs/Day Years [...] often do you attend chur ch or yazidi services? More than 4 times per year 06/04/2023 Do you belong to any clubs o r organizations such as holiness groups, unions, fraternal or athletic groups, or [...] Recorded Patient Health Questionnaire-2 Score 0 10/27/2023 [facility] of Occupat ional Health - Occupational Stress [...] Visit [facility] [place] Zhang [address] [facility] 110 [place] [address] Merry Ray NP [address] [place] [address] 06/06/2025 8:30 AM EDT Office Visit [facility] [place] Zhang [address] [facility] 110 [place] [address] Mono Knowles MD [address] [facility] 110 [place] [address] documented as of this encounter Procedures Procedure Name Priority Date/Time Associated Diagnosis Comments NM HEATHER PERF SPECT REST STR 07/11/2024 3:49 PM EDT documented in this encounter Results * NM HEATHER PERF SPECT REST STR (07/11/2024 3:49 PM EDT) Anatomical Region Laterality Modality Other 07/11/2024 3:49 PM EDT Narrative 07/11/2024 3:49 [place] [address] Nuclear Medicine Report Signed Patient: TAJ RING MR#: [id number] : 1945 Acct:[id number] Age/Sex: 78 / M ADM Date: 07/10/24 Loc: [place] Attending Dr: MONO KNOWLES Ordering Physician: MONO KNOWLES Date of Service: 07/10/24 Procedure(s): NM heather perf SPECT rest str Accession Number(s): [id number] cc: ESHAMONO Patient Name: TAJ RING MR#: [id number] : 1945 Exam Date: 07/10/2024 Ordering Doctor: DR MONO KNOWLES M.D. RADIOLOGY REPORT PROCEDURE: NM HEATHER PERF SPECT REST STR COMPARISON: None. INDICATIONS: CHEST PAIN TECHNIQUE: Exam Description: Stress/Rest one day protocol gated SPECT Rest Imagin.0 mCi Tc-99m Cardiolite IV on 07/10/2024 Stress Imaging 30.1 mCi Tc-99m Cardiolite IV on 07/10/2024 Exercise Protocol: 0.4 mg Lexiscan given IV Heart Rate (bpm): Rest: 61 Max: 80 PMHR: 55 Blood Pressure: Rest: 130/84 Max: 138/82 Symptoms: Rest and peak stress ECG findings were normal and the exercise portion of the study was normal per attending physician Dr. Steiner . For more details please see separate cardiac stress test report. FINDINGS: QUALITY OF STUDY: Excellent. PERFUSION DEFECT: LOCATION: Basal inferior. Mid-inferior. Apical inferior. SIZE: Medium (3-4 segments). SEVERITY: Mild. TYPE: Persistent. WALL MOTION: Mild hypokinesis: Inferior wall. LV SIZE: Normal. 75 mL. TID / TCD: None; 0.9 LVEF: Normal. Calculated EF 61%. SUMMARY: Myocardial perfusion imaging study has ABNORMAL findings. CONCLUSION: 1. No acute or reversible ischemia. 2. Mildly decreased radiotracer activity within, and motion of, the inferior wall. This may represent mildly decreased perfusion or diaphragm attenuation artifact. 3. Normal left ventricle size and ejection fraction. Dictated by: Eduardo Schmidt M.D. on 07/11/2024 at 15:35 Approved by: Eduadro Schmidt M.D. on 07/11/2024 at 15:48 Dictated By: Eduardo Schmidt M.D. Signed By: 07/11/24 1549 DD/ 1549 TD/TT: Rn Visiting: Procedure Note Radiology, Radiologist, MD - 07/11/2024 [place] [address] Nuclear Medicine Report Signed Patient: LISBETH RINGR#: [id number] : 1945cct:[id number] Age/Sex: 78 / MADM Date: 07/10/24 Loc: [place] Attending Dr: MONO KNOWLES Ordering Physician: MONO KNOWLES Date of Service: 07/10/24 Procedure(s): NM heather perf SPECT rest str Accession Number(s): [id number] cc: MONO KNOWLES Patient Name: TAJ RING MR#: [id number] : 1945 Exam Date: 07/10/2024 Ordering Doctor: DR MONO KNOWLES M.D. RADIOLOGY REPORT PROCEDURE: NM HEATHER PERF SPECT REST STR COMPARISON: None. INDICATIONS: CHEST PAIN TECHNIQUE: Exam Description: Stress/Rest one day protocol gated SPECT Rest Imagin.0 mCi Tc-99m Cardiolite IV on 07/10/2024 Stress Imaging 30.1 mCi Tc-99m Cardiolite IV on 07/10/2024 Exercise Protocol: 0.4 mg Lexiscan given IV Heart Rate (bpm): Rest: 61 Max: 80 PMHR: 55 Blood Pressure: Rest: 130/84 Max: 138/82 Symptoms: Rest and peak stress ECG findings were normal and the exercise portion ofthe study was normal per attending physician Dr. Steiner . For more details please see separate cardiac stress test report. FINDINGS: QUALITY OF STUDY: Excellent. PERFUSION DEFECT: LOCATION: Basal inferior. Mid-inferior. Apical inferior. SIZE: Medium (3-4 segments). SEVERITY: Mild. TYPE: Persistent. WALL MOTION: Mild hypokinesis: Inferior wall. LV SIZE: Normal. 75 mL. TID / TCD: None; 0.9 LVEF: Normal. Calculated EF 61%. SUMMARY: Myocardial perfusion imaging study has ABNORMAL findings. CONCLUSION: 1. No acute or reversible ischemia. 2. Mildly decreased radiotracer activity within, and motion of, theinferior wall. This may represent mildly decreased perfusion or diaphragmattenuation artifact. 3. Normal left ventricle size and ejection fraction. Dictated by: Eduardo Schmidt M.D. on 07/11/2024 at 15:35 Approved by: Eduardo Schmidt M.D. on 07/11/2024 at 15:48 Dictated By: Eduardo Schmidt M.D. Signed By:07/11/24 1549 DD/ 1549 TD/TT: Rn Visiting: Mono Knowles MD [facility] Final Result documented in this encounter Visit Diagnoses Not on filedocumented in this encounter Care Teams Machine Turner Relationship Specialty Start Date End Date Mono Knowles MD [address] [facility] 110 [place] [address] PCP - Jonathan FLORES 09/13/21 Mono Knowles MD [address] [facility] 110 [place] [address] PCP - General Internal Medicine 03/01/23 Summer Velazquez, RN [address] [facility] [address] Clinical Advocate Family Medicine 10/20/24 11/28/24 Ruth Johnston LPN [address] [facility] [address] [place] [address] 11/28/24 05/09/25 documented as of this encounter
--- OUTSIDE RECORDS SUMMARY | 2025-05-26 11:41 | XMS_ITS | Encounter Summary ---
Author Organization [facility] Address [address] [facility], [address] [place] [address] Care Team Providers Care Media Strategist Name Role Phone Mono Knowles MD Primary Care Provider [phone] Reason for Visit * Reason Comments Other Encounter Details Date Type Department Care Team (Late st Contact Info) Description 07/21/[address] [place] [address] [place] [address] [facility] [address] [place], [place] [address] Other Social History Tobacco Use Types Packs/Day Years [...] on filedocumented in this encounter Care Teams Media Strategist Relationship Specialty Start Date End Date Mono Knowles MD PCP - General Internal Medicine 05/03/20 documented as of this encounter
--- OUTSIDE RECORDS SUMMARY | 2025-05-26 11:41 | XMS_ITS | Encounter Summary ---
Author Organization [facility] Address [address] [place] [address] Care Team Providers Care National Flatbed Truck Driver Name Role Phone Mono Knowles MD Unavailable [phone] Mono Knowles MD Primary Care Provider Summer Velazquez RN Unavailable [phone] Ruth Johnston LPN Unavailable Encounter Details Date Type Department Care Team (Late st Contact Info) Description 11/02/2023 Orders Only [facility] [place] [facility] [address] [facility] [address] [place] [address] A, Unknown Practice [address] [place] [address] Social History Tobacco Use Types [...] How often do you attend chur or advent services? More than 4 times per year 06/04/2023 Do you belong to any clubs o r organizations such as jewish groups, unions, fraternal or athletic groups, or [...] Recorded Patient Health Questionnaire-2 Score 0 10/27/2023 [facility] Questionnaire Answer Date Recorded [...] [facility] [address] [place] [phone] Merry Ray NP [address] [facility] 110 [place] [address] 06/06/2025 8:30 AM EDT Office Visit [facility] [place] Anderson [address] [facility] [address] [place] [address] Mono Knowles MD [address] [facility] [address] [place] [address] documented as of this encounter Procedures Procedure Name Priority Date/Time Associated Diagnosis Comments ELECTROCARDIOGRAM REPORT Routine 024 10:[address] ABDOMEN & PELVIS WO Routine 4 10:01 AM EST SCANNED LABS Routine 10/24/2023 10:01 AM EST documented in this encounter Results * Electrocardiogram Report (10/24/2023 10:02 AM EST) us Unknown Practice A IN CLINIC/BEDSIDE ORDERABLES Final Result * CT ABDOMEN & PELVIS WO (10/24/2023 10:01 AM EST) Anatomical Region Laterality Modality Radiographic Teresa ging us Unknown Practice A IMG XR PROCEDURES Final Resul t * SCANNED LABS (10/24/2023 10:01 AM EST) us Unknown Practice A LAB CHG PERFORMABLES Final Re sult documented in this encounter Visit Diagnoses Not on filedocumented in this encounter Care Teams National Flatbed Truck Driver Relationship Specialty Start Date End Date Mono Knowles MD [address] [facility] [address] [place] [address] PCP - Jonathan FLORES 09/13/21 Mono Knowles MD [address] [facility] 110 [place] [address] PCP - General Internal Medicine 03/01/23 Summer Velazquez, RN [address] [place] [address] Clinical [facility]ocate Family Medicine 10/20/24 11/28/24 Ruth Johnston LPN [address] [facility] [address] [place] [address] 11/28/24 05/09/25 documented as of this encounter
--- OUTSIDE RECORDS SUMMARY | 2025-05-26 11:41 | XMS_ITS | Encounter Summary ---
Author Organization [facility] Address [address] [place] [address] Care Team Providers Care Epilepsy Physician Name Role Phone Mono Knowles MD Unavailable [phone] Mono Knowles MD Primary Care Provider [phone] Summer Velazquez RN Unavailable [phone] Ruth Johnston LPN Unavailable Encounter Details Date Type Department Care Team (Late Contact Info) Description 09/22/2023 Abstract [facility] [place] [facility] 112 [facility] 110 [place] [address] Mono Knowles MD 112 [facility] 110 [place] [address] Social History Tobacco Use Types Packs/Day Years [...] any clubs o r organizations such as nondenominational groups, unions, fraternal or athletic groups, or [...] and heating? Not hard at all 06/04/2023 [facility] of Occupat ional Health - Occupational Stress [...] the money to buy more. Never true 09/22/20 23 Within the past 12 months, t [...] Visit [facility] [place] Zhang [address] [place] [address] Merry Ray NP [address] [place] [address] 06/06/2025 8:30 AM EDT Office Visit [facility] [place] Zhange [address] [place] [address] Mono Knowles MD [address] [place] [address] documented as of this encounter Visit Diagnoses Not on filedocumented in this encounter Care Teams Epilepsy Physician Relationship Specialty Start Date End Date Mono Knowles MD [address] [place] [address] PCP - Jonathan FLORES 09/13/21 Mono Knowles MD [address] [facility] 110 [place] [address] PCP - General Internal Medicine 03/01/23 Summer Velazquez, RN [address] [place] [address] Clinical Advocate Family Medicine 10/20/24 11/28/24 Ruth Johnston LPN [address] [facility] 110 [place] [address] 11/28/24 05/09/25 documented as of this encounter
--- OUTSIDE RECORDS SUMMARY | 2025-05-26 11:41 | XMS_ITS | Encounter Summary ---
Author Organization [facility] Address [address] [place] [address] Care Team Providers Care Hand Buffer Name Role Phone Mono Knowles MD Unavailable [phone] Mono Knowles MD Primary Care Provider [phone] Summer Velazquez RN Unavailable [phone] Ruth Johnston LPN Unavailable Encounter Details Date Type Department Care Team ([facility] Contact Info) Description 06/26/2024 Abstract [facility] [place] [facility] 112 [facility] 110 [place] [address] Mono Knowles MD 112 [facility] 110 [place] [address] Social History Tobacco Use Types Packs/Day Years [...] How often do you attend chur or lutheran services? More than 4 times per year 06/04/2023 Do you belong to any clubs o r organizations such as methodist groups, unions, fraternal or athletic groups, or [...] Recorded Patient Health Questionnaire-2 Score 0 10/27/2023 [facility] [place] of Occupat ional Health - Occupational Stress [...] [facility] [address] [place] [phone] Merry Ray NP [address] [place] [address] [place] [address] 06/06/2025 8:30 AM EDT Office Visit [facility] [place] [facility] [address] [place] [address] [place] [phone] Mono Knowles MD [address] [place] [address] [place] [address] documented as of this encounter Visit Diagnoses Not on filedocumented in this encounter Care Teams Hand Buffer Relationship Specialty Start Date End Date Mono Knowles MD [address] [facility] 110 [place] [address] PCP - Jonathan FLORES 09/13/21 Mono Knowles MD [address] [facility] 110 [place] [address] PCP - General Internal Medicine 03/01/23 Summer Velazquez, RN [address] [place] [address] Clinical [facility] Family [facility] 10/20/24 11/28/24 Ruth Johnston LPN [address] [facility] 110 [place] [address] 11/28/24 05/09/25 documented as of this encounter
--- OUTSIDE RECORDS SUMMARY | 2025-05-26 11:41 | XMS_ITS | Encounter Summary ---
Author Organization [facility] Address [address] [place] [address] Care Team Providers Care Focusing Machine Operator Name Role Phone Mono Knowles MD Unavailable [phone] Mono Knowles MD Primary Care Provider [phone] Summer Velazquez RN Unavailable [phone] Ruth Johnston LPN Unavailable Reason for Visit * Reason Comments Med Refill Encounter Details Date Type Department Care Team ([facility] Contact Info) Description 05/31/2024 [facility] 112 [facility] 110 [place] [address] Merry Ray, WIRE SPRING RELAY ADJUSTER 112 [facility] 110 [place], [place] [phone] Parotiditis Social History Tobacco Use Types Packs/Day Years [...] How often do you attend chur or hindu services? More than 4 times per year 06/04/2023 Do you belong to any clubs o r organizations such as moravian groups, unions, fraternal or athletic groups, or [...] Recorded Patient Health Questionnaire-2 Score 0 10/27/2023 [facility] [place] of Occupat ional Health - Occupational Stress [...] * Telephone Encounter - Zee Alvarez - 06/09/2024 8:11 AM EDT PATIENT CALLED ASKING TO GET A CHEST MRI. PATIENT SAID HE WAS IN THE HOSPITAL AND GOT TESTS DONE BUT NOT AN MRI. DIDN'T GIVE ME ANY DETAILS BESIDES THAT HE WAS AT [facility]. documented in this encounter Plan of Treatment Upcoming Encounters Date Type Department Care Team (Late st Contact Info) Description 05/30/2025 11:30 AM EDT [facility] [place] [facility] [address] [facility] 110 [place] [phone] Merry Ray, WIRE SPRING RELAY ADJUSTER [address] [facility] 110 [place] [address] 06/06/2025 8:30 AM EDT Office Visit [facility] [place] [facility] [address] [place] [address] [place] [address] Mono Knowles MD [address] [facility] [address] [place] [address] documented as of this encounter Visit Diagnoses Diagnosis Parotiditis Sialoadenitis documented in this encounter Care Teams Focusing Machine Operator Relationship Specialty Start Date End Date Mono Knowles MD [address] [facility] [address] [place] [address] PCP - Jonathan FLORES 09/13/21 Mono Knowles MD [address] [facility] [address] [place] [address] PCP - General Internal Medicine 03/01/23 Summer Velazquez, RN [address] [place] [address] Clinical [facility] Family Medicine 10/20/24 11/28/24 Ruth Johnston LPN [address] [facility] [address] [place] [address] 11/28/24 05/09/25 documented as of this encounter
--- OUTSIDE RECORDS SUMMARY | 2025-05-26 11:41 | XMS_ITS | Encounter Summary ---
Author Organization [facility] Address [address] [place] [address] Care Team Providers Care Traveling Missionary Name Role Phone Mono Knowles MD Unavailable [phone] Mono Knowles MD Primary Care Provider [phone] Summer Velazquez RN Unavailable [phone] Ruth Johnston LPN Unavailable Encounter Details Date Type Department Care Team ([facility] Contact Info) Description 06/08/2024 Abstract [facility] [place] [facility] 112 [facility] 110 [place] [address] Mono Knowles MD 112 [facility] 110 [place] [address] Social History Tobacco Use Types Packs/Day Years [...] How often do you attend chur or sabianism services? More than 4 times per year [...] Recorded Patient Health Questionnaire-2 Score 0 10/27/2023 [facility] [place] of Occupat ional Health - Occupational Stress [...] place to sleep or slept in a custodial (including now)? No 06/04/2023 Sex and Gender [...] Visit [facility] [place] [address] [facility] 110 [place] [phone] Merry Ray NP [address] [place] [address] 06/06/2025 8:30 AM EDT Office Visit [facility] [place] [facility] [address] [place] [address] Mono Knowles MD [address] [place] [address] documented as of this encounter Visit Diagnoses Not on filedocumented in this encounter Care Teams Traveling Missionary Relationship Specialty Start Date End Date Mono Knowles MD [address] [facility] 110 [place] [address] PCP - Jonathan FLORES 09/13/21 Mono Knowles MD [address] [facility] 110 [place] [address] PCP - General Internal Medicine 03/01/23 Summer Velazquez, RN [address] [place] [address] Clinical Advocate Family Medicine 10/20/24 11/28/24 Ruth Johnston LPN [address] [facility] 110 [place] [address] 11/28/24 05/09/25 documented as of this encounter
--- OUTSIDE RECORDS SUMMARY | 2025-05-26 11:42 | XMS_ITS ---
Author Organization [facility] Address [address] [place] [address] Care Team Providers Care Slate Cutter Operator Name Role Phone Mono Knowles MD Unavailable [phone] Mono Knowles MD Primary Care Provider [phone] Emergency Department Transitional Care Management (TCM) Status:Identified (Enrolling) Start date:05/24/2025 Enrollment reason:Identified using hospital discharge data Overview Discharged from [facility] ER on 05/24. Please contact within 2 days of discharge for ER DANNY and schedule a follow-up appointment if needed. Case Team Name Relationship Phone Katarina Dunne RN(Responsible Staff) Registere d Nurse [phone] Continued Care and Services Coordination
--- OUTSIDE RECORDS SUMMARY | 2025-05-26 11:42 | XMS_ITS | Clinical Summary ---
Author Organization [facility] Address [address] [facility], [address] [place] [address] Care Team Providers Care Software Engineering Manager Name Role Phone Mono Knowles MD Primary Care Provider Allergies No known active allergies Medications zolpidem (AMBIEN) 5 MG tablet Take 5 mg by mouth nightly. Active aspirin 325 MG tablet Take 1 tablet by mouth daily. 30 tablet 6 09/23/2013 Active nitroGLYCERIN (NITROSTAT) 0.[address] 1 tablet under the tongue every 5 minutes as needed for Chest pain. 25 tablet 3 09/23/2013 Active simvastatin (ZOCOR) 20 MG tablet Take 1 tablet by mouth nightly. 30 tablet 6 09/23/2013 Active carvedilol (COREG) 25 MG tablet Take 1 tablet by mouth 2 times daily (with meals). 60 tablet 6 09/23/2013 Active prasugrel (EFFIENT) 10 MG TABS Take 1 tablet by mouth daily. 30 tablet 6 09/23/2013 Active Active Problems Problem Noted Date Diagnosed Date Unstable angina 09/22/2013 Overview (09/22/2013): Transfer from [facility] HTN (hypertension) 09/22/2013 Hyperlipidemia 09/22/2013 Stented coronary artery 09/22/2013 Overview (09/22/2013): VANGIE in mid LAd Family History Medical History Relation Name Comments Arthritis Mother Heart Disease Mother Relation Name Status Comments Mother Social History Tobacco Use Types Packs/Day Years [...] Sign Reading Time Taken Comments Blood Pressure 117/70 09/30/2013 11:15 AM EST Pulse 64 09/30/2013 11:15 AM EST Temperature 36.9 C (98.4 F) 05/03/2020 9:29 AM EDT Respiratory Rate 16 09/30/2013 11:15 AM EST Oxygen Saturation 96% 09/30/2013 11:15 AM EST Inhaled Oxygen Concentration - - Weight 83.9 kg (185 lb) 05/03/2020 9:29 AM EDT Height 167.6 cm (5' 6 ) 05/03/2020 9:29 AM EDT Body Mass Index 29.86 05/03/2020 9:29 AM EDT Plan of Treatment Not on file Insurance MEDICAID [place] [facility] MEDICARE Advance Directives * Full Code (Latest Code Status on File) Date Activated Date Inactivated Comments 09/22/2013 5:57 PM 09/23/2013 6:43 PM Care Teams Software Engineering Manager Relationship Specialty Start Date End Date Mono Knowles MD PCP - General Internal Medicine 05/03/20
--- OUTSIDE RECORDS SUMMARY | 2025-05-26 11:42 | XMS_ITS | Encounter Summary ---
Author Organization [facility] Address [address] [place] [address] Care Team Providers Care Monologist Name Role Phone Mono Knowles MD Unavailable [phone] Mono Knowles MD Primary Care Provider [phone] Summer Velazquez RN Unavailable [phone] Ruth Johnston LPN Unavailable Encounter Details Date Type Department Care Team ([facility] Contact Info) Description 09/11/2024 Orders Only [facility] [place] [facility] [address] [facility] 110 [place] [phone] Unallocated, Noms Provider, [address] [place], [place] [phone] Social History Tobacco Use Types Packs/Day Years [...] How often do you attend chur or jehovah's witness services? More than 4 times per year 06/04/2023 Do you belong to any clubs o r organizations such as presybeterian groups, unions, fraternal or athletic groups, or [...] Recorded Patient Health Questionnaire-2 Score 0 10/27/2023 [facility] [place] of Occupat ional Health - Occupational Stress [...] [facility] [address] [place] [phone] Merry Ray NP [address] [facility] [address] [place] [address] 06/06/2025 8:30 AM EDT Office Visit [facility] [place] [address] [facility] [address] [place] [phone] Mono Knowles MD [address] [facility] [address] [place] [address] documented as of this encounter Procedures Procedure Name Priority Date/Time Associated Diagnosis Comments ELECTROCARDIOGRAM REPORT Routine 024 2:59 PM EST XR CHEST 1 VIEW Routine 09/11/2024 2:57 PM EST RHYTHM ECG, REPORT Routine 09/11/2024 2: 55 PM EST HEMATOLOGY SPE.REQ. Routine 09/11/2024 2 :54 PM EST URINALYSIS, COMPLETE Routine 09/11/2024 2:54 PM EST BASIC METABOLIC PANEL Routine 09/11/2024 2:54 PM EST ECG 12-LEAD Routine 09/11/2024 8:28 AM EST documented in this encounter Results * Electrocardiogram Report (09/11/2024 2:59 PM EST) us Noms Provider Unallocated MD IN CLINIC/BEDSIDE O RDERABLES Final Result * XR chest 1 view (09/11/2024 2:57 PM EST) Anatomical Region Laterality Modality Chest Radiographic Teresa ging us Noms Provider Unallocated MD IMG XR PROCEDURES F inal Result * ECG 3 Lead (09/11/2024 2:55 PM EST) us Noms Provider Unallocated MD IN CLINIC/BEDSIDE O RDERABLES Final Result * HEMATOLOGY SPE.REQ. (09/11/2024 2:54 PM EST) us Noms Provider Unallocated MD LAB BLOOD ORDERABLE S Final Result * Urinalysis with microscopic (09/11/2024 2:54 PM EST) Urine Urine specimen obtained by clean catch procedure / Unknown us Noms Provider Unallocated MD LAB URINE ORDERABLE S Final Result * Basic metabolic panel (09/11/2024 2:54 PM EST) Blood Venous blood specimen / Unknown us Noms Provider Unallocated LAB BLOOD ORDERABLE S Final Result * ECG 12 lead (09/11/2024 8:28 AM EST) us Noms Provider Unallocated MD ECG ORDERABLES Fin al Result documented in this encounter Visit Diagnoses Not on filedocumented in this encounter Care Teams Monologist Relationship Specialty Start Date End Date Mono Knowles MD [address] [facility] [address] [place] [address] PCP - Jonathan FLORES 09/13/21 Mono Knowles MD [address] [facility] [address] [place] [address] PCP - General Internal Medicine 03/01/23 Summer Velazquez, RN [address] [place] [address] Clinical [facility]ocate Family Medicine 10/20/24 11/28/24 Ruth Johnston LPN [address] [facility] 110 [place] [address] 11/28/24 05/09/25 documented as of this encounter
--- OUTSIDE RECORDS SUMMARY | 2025-05-26 11:42 | XMS_ITS | Encounter Summary ---
Author Organization [employer] [facility] Address [id number] [address] [place] [address] Care Team Providers Care Cabin Agent Name Role Phone Mono Knowles MD Primary Care Provider [phone] Encounter Details Date Type Department Care Team (Latest Contact Info) Description 05/24/2025 Travel Social History Tobacco Use Types Packs/Day Years Used Date Smoking Tobacco: Former Cigarettes 1 4 0 09/13/2007 - 09/13/2011 Smokeless Tobacco: Never Alcohol Use Standard Drinks/Week Comments No 0 (1 standard drink = 0.6 oz pur e alcohol) [facility] Utilities Answer Date Recorded In the past 12 months has th e electric, gas, oil, or water company threatened to shut off services in your [...] dizzy yet documented as of this encounter Visit Diagnoses Not on filedocumented in this encounter Additional Health Concerns Infection Onset Date Last Indicated Resolved Time Respiratory Rule-Out 05/24/2025 05/24/2025 025 9:29 AM EDT documented as of this encounter Care Teams Cabin Agent Relationship Specialty Start Date End Date Mono Knowles MD 112 [facility] 110 [place] [address] PCP - General 10/06/24 documented as of this encounter
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
--- OUTSIDE RECORDS SUMMARY | 2025-05-26 11:42 | XMS_ITS | Encounter Summary ---
Author Organization [facility] Address [address] [place] [address] Care Team Providers Care Leak Detector Name Role Phone Mono Knowles MD Unavailable [phone] Mono Knowles MD Primary Care Provider [phone] Summer Velazquez RN Unavailable [phone] Ruth Johnston LPN Unavailable Encounter Details Date Type Department Care Team ([facility] Contact Info) Description 09/11/2024 Abstract [facility] [place] [facility] [address] [facility] [address] [place] [address] Mono Knowles MD 112 [facility] [address] [place] [address] Social History Tobacco Use Types Packs/Day Years [...] any clubs o r organizations such as quaker groups, unions, fraternal or athletic groups, or [...] Recorded Patient Health Questionnaire-2 Score 0 10/27/2023 [facility] Occupat ional Health - Occupational Stress [...] [address] [facility] [address] [place] [id number] Merry Ray NP [address] [place] [address] 06/06/2025 8:30 AM EDT Office Visit [facility] [place] [facility] [address] [place] [id number] Mono Knowles MD [address] [place] [address] documented as of this encounter Visit Diagnoses Not on filedocumented in this encounter Care Teams Leak Detector Relationship Specialty Start Date End Date Mono Knowles MD [address] [facility] [address] [place] [address] PCP - Jonathan FLORES 09/13/21 Mono Knowles MD [address] [facility] [address] [place] [address] PCP - General Internal Medicine 03/01/23 Summer Velazquez, RN [address] [place] [address] [facility] 10/20/24 11/28/24 Ruth Johnston LPN [address] [facility] [address] [place] [address] 11/28/24 05/09/25 documented as of this encounter
[2025-05-26 11:52] LABS: Lactate/Lactic Acid 0.6 mmol/L (0.4-2.0)
[2025-05-26 11:53] LABS: Alanine Aminotransferase 46 U/L (16-63); Albumin Globulin Ratio 1.0; Albumin Level 3.6 g/dL (3.4-5.0); Alkaline Phosphatase 96 U/L (46-116); Anion Gap 11.9; Aspartate Amino Transferase 29 U/L (15-37); Blood Urea Nitrogen 14.0 mg/dL (7.0-18.0); Calcium 8.4 mg/dL (8.5-10.1); Carbon Dioxide 28.2 mmol/L (21.0-32.0); Chloride 109 mmol/L (98-107); Estimated GFR (African America >60 (>=60 mL/min/1.73m^2); Estimated GFR (Non-African Ame 50 (>=60 mL/min/1.73m^2); Globulin 3.7 g/dL; Glucose 101 mg/dL (74-106); Magnesium 1.8 mg/dL (1.8-2.4); Potassium 4.1 mmol/L (3.5-5.1); Sodium 145 mmol/L (136-145); Total Protein 7.3 g/dL (6.4-8.2)
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
--- NOTE | 2025-05-26 13:42 | CT_ITS ---
The [address] [address] Patient Name: TAJ RING MRN: [id number] date: 1945 Sex: M Assigned Patient Location: ED.MAIN Current Patient Location: Accession/Order Number: [id number] Exam Date: 05/26/2025 15:20 Report Date: 05/26/2025 16:02 At the request of: JAROD PENNINGTON MD Procedure: CT angio neck CTA Head and Neck TECHNIQUE: Axial imaging of the head and neck with 2-D and 3-D reconstruction. The CT exam was performed using one or more the following dose reduction techniques: Automated exposure control, adjustment of the MA and/or Kv according to patient size, or use of the iterative reconstruction technique. Stenoses were measured using the NASCET criteria. COMPARISON: None HISTORY: Leg weakness. Difficulty with speech The visualized aortic arch and great vessels are unremarkable. Subclavian arteries are patent No carotid dissection, critical stenosis or occlusion identified. No vertebral dissection, occlusion or abrupt cut off identified. The carotid siphons and vertebral basilar systems are patent. No intracranial aneurysm, dissection, abrupt cut off or critical stenosis identified.. . CT/CT angio head IMPRESSION: No occlusion, critical stenosis or dissection of the extracranial or intracranial circulation. Impression dictated by: Jaime Hunter M.D. 05/26/2025 4:02 PM Dictation Location: [id number] Electronically authenticated by: [id number] Y Date: 05/26/2025 16:02
--- NOTE | 2025-05-26 13:42 | CT_ITS ---
The [address] [address] Patient Name: TAJ RING MRN: [id number] date: 1945 Sex: M Assigned Patient Location: ED.MAIN Current Patient Location: Accession/Order Number: [id number] Exam Date: 05/26/2025 15:20 Report Date: 05/26/2025 16:02 At the request of: JAROD PENNINGTON MD Procedure: CT angio neck CTA Head and Neck TECHNIQUE: Axial imaging of the head and neck with 2-D and 3-D reconstruction. The CT exam was performed using one or more the following dose reduction techniques: Automated exposure control, adjustment of the MA and/or Kv according to patient size, or use of the iterative reconstruction technique. Stenoses were measured using the NASCET criteria. COMPARISON: None HISTORY: Leg weakness. Difficulty with speech The visualized aortic arch and great vessels are unremarkable. Subclavian arteries are patent No carotid dissection, critical stenosis or occlusion identified. No vertebral dissection, occlusion or abrupt cut off identified. The carotid siphons and vertebral basilar systems are patent. No intracranial aneurysm, dissection, abrupt cut off or critical stenosis identified.. . CT/CT angio neck IMPRESSION: No occlusion, critical stenosis or dissection of the extracranial or intracranial circulation. Impression dictated by: Jaime Hunter M.D. 05/26/2025 4:02 PM Dictation Location: [employer] Electronically authenticated by: [id number] Y Date: 05/26/2025 16:02
[2025-05-26 13:50] LABS: INR 1.07; Prothrombin Time 11.3 sec (9.0-11.6)
--- NOTE | 2025-05-26 14:03 | XR_ITS ---
The [place] [id number] Patient Name: TAJ RING MRN: [id number] date: 1945 Sex: M Assigned Patient Location: ED.MAIN Current Patient Location: ER Accession/Order Number: [id number] Exam Date: 05/26/2025 15:00 Report Date: 05/26/2025 15:49 At the request of: JAROD PENNINGTON MD Procedure: XR chest 1V Plain film chest Single view HISTORY: Weakness COMPARISON: 09/10/2024 FINDINGS: SUPPORT DEVICES: None POSTSURGICAL CHANGES: None HEART: Within normal limits PULMONARY DERICK: Within normal limits MEDIASTINUM: Unremarkable LUNGS AND PLEURA: No acute lung process, pleural effusion or pneumothorax identified. Similar mild right hemidiaphragm elevation BONY STRUCTURES: Intact ADDITIONAL FINDINGS None XR/XR chest 1V IMPRESSION: No acute process. Impression dictated by: Jaime Hunter M.D. 05/26/2025 3:49 PM Dictation Location: [employer] Electronically authenticated by: [id number] Y Date: 05/26/2025 15:49
--- NOTE | 2025-05-26 15:28 | MR_ITS ---
The [address] [address] Patient Name: TAJ RING MRN: [id number] date: 1945 Sex: M Assigned Patient Location: MS Current Patient Location: MS Accession/Order Number: [id number] Exam Date: 05/26/2025 10:45 Report Date: 05/28/2025 12:17 At the request of: JOURDAN FAIRCHILD MD Procedure: MR head/brain wo con EXAMINATION: MRI OF THE BRAIN WITHOUT CONTRAST CLINICAL HISTORY: Leg weakness and fall out of bed. COMPARISON: CT 05/26/2025 and MRI 06/21/2024 TECHNIQUE: Multiecho, multiplanar imaging of the brain was performed without enhancement. There is generalized atrophy. The ventricles are normal in size and position. Patchy areas of increased T2 and FLAIR signal are again visualized within the periventricular and subcortical white matter. The appearance is compatible with chronic microvascular disease. There are no additional areas of abnormal signal intensity within the supra- or infratentorial brain. No restricted diffusion is identified to suggest a recent ischemic event. There are no extra-axial collections or mass effect. Imaged paranasal sinuses and mastoid air cells are clear. 32 MR/MR head/brain wo con IMPRESSION: ATROPHY AND CHRONIC MICROVASCULAR DISEASE. NO ACUTE INTRACRANIAL FINDINGS. Impression dictated by: Marylou Ray M.D. 05/28/2025 12:17 PM Dictation Location: [place] [address] Electronically authenticated by: [id number] Y Date: 05/28/2025 12:17
--- NOTE | 2025-05-26 15:30 | ECG_ITS ---
The [facility] Test Date: 2025-05-27 Pat Name: TAJ RING Department: Room: 2161 Gender: Male Order Entry Clerk: : 1945 Requested By: [id number] Order Number: [id number] Reading MD: CHARLIE PALACIOS Measurements Intervals [place] Rate: 57 P: 68 VA: 185 QRS: -54 QRSD: 110 T: 26 QT: 447 QTc: 436 Interpretive Statements SINUS BRADYCARDIA LOW QRS VOLTAGE IN PRECORDIAL LEADS [QRS DEFLECTION < 1.0 mV IN CHEST LEADS] LEFT ANTERIOR FASCICULAR BLOCK [QRS AXIS <= -45, QR IN I, RS IN II] POSSIBLE ANTERIOR MYOCARDIAL INFARCTION [30 ms Q WAVE IN V3/V4, OR R < 0.2 mV IN V4], OF INDETERMINATE AGE Compared to ECG 05/26/2025 11:25:36 Low QRS voltage now present Sinus rhythm no longer present Myocardial infarct finding still present Electronically Signed On 05-28-2025 16:46:56 EDT by CHARLIE PALACIOS
[2025-05-26] MEDS: ENOXAPARIN SODIUM 40 MG/0.4 ML SYRINGE SUBQ (16:01)
--- OUTSIDE RECORDS SUMMARY | 2025-05-26 16:13 | XMS_ITS | CCD ---
Author Organization [facility] Care Team Providers Care Mechanical Tech Name Role Phone DR MONO KNOWLES Attending Unavailable ESHA, DR FOREMAN Primary Care Unavailable ESHA, DR FOREMAN Admitting Unavailable Mono Knowles MD Unavailable Mono Knowles MD Primary Care Provider Mono Knowles MD Primary Care Provider Mono Knowles MD Primary Care Provider [phone] Summer Velazquez RN Unavailable Mono Knowles MD Primary Care Provider Johnston WEATHERIZATION AND HOUSING INSPECTOR, Ruth Unavailable Unavailable Johnston WEATHERIZATION AND HOUSING INSPECTOR, Ruth Unavailable MONO KNOWLES B Attending Unavailable NORMA JIN Attending Unavailable ESHA MONO B Referring Unavailable DON FENTON Attending Unavailable ISABELLA VERA Referring Unavailable TYLER SANCHEZ Attending Unavailable ESHA MONO B Attending Unavailable KNOWLES MONO B Attending Unavailable ESHA MONO B Attending Unavailable ESHA MONO B Attending Unavailable YVETTE THORNTON Attending Unavailable ESHA MONO B Attending Unavailable KNOWLES, MONO B Attending Unavailable NIKKI SANCHEZELER Referring Unavailable KNOWLES, MONO B Attending Unavailable KNOWLES, MONO B Attending Unavailable SANCHEZ, TAELER Referring Unavailable KNOWLES, MONO B Attending Unavailable MARYLOU LARRY Attending Unavailable Johnston WEATHERIZATION AND HOUSING INSPECTOR, Ruth Unavailable ESHA MONO B Primary Care Unavailable JOMAR CSHWARTZ Attending Unavailable ROBERT CURRY Admitting Unavailable KNOWLES, MONO B Referring Unavailable KNOWLES, MONO B Primary Care Unavailable KNOWLES, MONO B Referring Unavailable KNOWLES, MONO B Primary Care Unavailable KNOWLES, MONO B Primary Care Unavailable CAROLYNE MCINTYRE Attending Unavailable ESHA MONO B Primary Care Unavailable LOU HONG Attending Unavailable KIMBERLEE CRUZ Admitting Unavailable MONO KNOWLES Primary Care Unavailable CAROLYNE MCINTYRE Attending Unavailable MONO KNOWLES Primary Care Unavailable CAROLYNE SPIVEY Attending Unavailable Allergies Allergy Classification Reported Allergen(s) Allergy Type Date of Onset Reaction(s) Facility Unclassified (1 source) Pneumovax 23 Drug allergy (disorder) [facility] Repository (20 sources) Pneumococcal 20-Danay Conj Vacc Drug Intolerance 1 Swelling [facility] Work Phone: (20 sources) Pneumococcal Vac Polyvalent Drug Allergy 1 Swelling [facility] (14 sources) Streptococcus pneumoniae type 1 capsular polysaccharide [...] [PNEUMOCOCCAL 23-DANAY PS VACCINE] Drug Allergy 1 [facility] Medications Current Medications Medication Drug Class(es) Dates Sig (Normalized) Sig (Original) acetaminophen 325 mg / HYDROcodone bitartrate 10 mg oral tablet (20 sources) Opioid Agonist Start: 04-27-2024 End: 06-08-2025 take 1 tablet by mouth every six hours for pain HYDROcodone-aceta minophen ([place]) 10-325 MG tablet Indications: Cervical stenosis of spinal canal Take 1 tablet by mouth every 6 (six) hours if needed for severe pain 120 tablet 05/09/2025 06/08/2025 Active Start: 10-06-2023 take 1 tablet by fatimah th every six hours for pain HYDROcodone-acetaminophen ([place]) 10-325 MG tablet Indications: Cervical stenosis of [...] mouth Daily 100 tablet 3 02/27/2025 Active ALPRAZolam 1 mg oral tablet (20 [...] End: 07-28-2025 take 1 tablet by mouth in the morning amLODIPine (NORVASC) 2.5 mg tablet Take 1 tablet (2.5 mg total) by mouth in the morning. 06/18/2023 Active amoxicillin 875 mg oral tablet (3 [...] 4 days. 6 tablet 05/10/2024 05/15/2024 Active benzonatate 100 mg oral capsule (2 sources) Non-narcotic Antitussive Start: 05-24-2025 take 1 capsule by mouth every eight hours benzonatate (TESSALON PERLES) 100 mg capsule Take 1 capsule (100 mg total) by mouth every 8 (eight) hours. 21 capsule 05/24/2025 Active carvedilol 25 mg oral tablet (20 sources) alpha-Adrenergic Antonia, beta-Adrenergic Antonia Start: 07-23-2022 End: 10-23-2024 take 1 tablet by mouth once daily in the morning, then take 1 tablet by mouth once daily at mealtime carvediloL (COREG) 25 mg tablet TAKE 1 TABLET BY MOUTH EVERY MORNING AND TAKE ONE TABLET BY MOUTH EVERY EVENING WITH A MEAL 180 tablet 2 10/23/2024 Active Start: 07-23-2022 End: 10-28-2023 take 1 [...] End: 08-30-2024 take 1 tablet by mouth in the morning clopidogrel (PLAVIX) 75 mg tablet Take 1 tablet (75 mg total) by mouth in the morning. 09/10/2019 Active colchicine 0.6 mg oral capsule (20 [...] Start: 07-08-2022 take 1 capsule by mo uth in the morning colchicine (MITIGARE) 0.6 mg [...] times daily as needed for dizziness meclizine (ANTIVERT) 25 mg tablet Take 1 tablet (25 mg total) by mouth 3 (three) times a day as needed for dizziness. 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) Place 1 tablet (0.4 mg) under the tongue every 5 (five) minutes if needed for chest pain 90 tablet 12 10/27/2023 Active nystatin 684383 unt/ml oral suspension (4 sources) Polyene Antifungal Start: 08-22-2024 End: 08-30-2024 take 5 mL by mouth four times daily at bedtime nystatin (Mycostatin) 834038 UNIT/ML suspension Indications: Thrush SWISH AND SWALLOW FIVE MILLILITERS BY MOUTH FOUR TIMES A DAY FOR 14 DAYS (MORNING, NOON, EVENING, BEFORE BEDTIME) 280 mL 08/22/2024 08/30/2024 Discontinued (Therapy completed) Start: 06-01-2024 End: 06-15-2024 nystatin (Mycostatin) 997261 UNIT/ML suspension Indications: Thrush Take 5 mL [...] (Zocor) 40 MG tablet Indications: Atherosclerosis of tangirnaq coronary artery 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 Take 1 tablet (40 mg) by mouth at bedtime 100 tablet 3 02/06/2025 Active Start: 02-08-2024 take 1 tablet by fatimah th at bedtime simvastatin (Zocor) 40 MG tablet Indications: Atherosclerosis of tangirnaq coronary artery 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 (CMS/HCC) Take 1 tablet (40 mg) by mouth at bedtime 100 tablet 3 02/08/2024 Active Start: 10-06-2023 End: 01-14-2024 take 1 tablet by mouth at bedtime simvastatin (Zocor) 40 MG tablet Indications: Atherosclerosis of tangirnaq coronary artery 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 (CMS/HCC) Take 1 tablet (40 mg) by mouth at bedtime 100 tablet 0 10/06/2023 01/14/2024 Active sucralfate 1000 mg oral tablet (20 sources) Aluminum Complex Start: 09-18-2022 End: 03-14-2025 take 1 tablet by mouth at bedtime sucralfate (CARAFATE) 1 gram tablet Take 1 tablet (1 g total) by mouth in the morning and 1 tablet (1 g total) at noon and 1 tablet (1 g total) in the evening and 1 tablet (1 g total) before bedtime. 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] Onset: 4 [...] bleeding] Onset: 9 Resolved: 4 01-19-2023 Chronic Epilepsy; convulsions (2 sources) Epilepsy; Translations: [Epilepsy, [...] Chronic Inflammatory conditions of male genital organs (20 sources) Balanitis; Translations: [Balanitis] Onset: 1 Resolved: 3 02-03-2023 Chronic Miscellaneous mental health disorders (20 [...] Translations: [Dysphagia, pharyngoesophageal phase] 11-01-2024 Episodic Other lower respiratory disease (1 source) Chronic cough; Translations: [Chronic cough] Onset: 5 Episodic Other nervous system disorders (20 sources) [...] unspecified] 08-31-2024 Episodic Peripheral and visceral atherosclerosis (13 sources) Arteriosclerotic vascular disease; Translations: [Unspecified atherosclerosis] Onset: 3 09-18-2022 Chronic Spondylosis; intervertebral disc disorders; other back problems (20 sources) Cervical spondylosis without myelopathy; Translations: [Spondylosis without myelopathy or radiculopathy, cervical region] Onset: 1 01-19-2023 Chronic Syncope (4 sources) Syncope; Translations: [Syncope and collapse] 06-26-2024 Episodic Unclassified (1 source) Weakness - Generalized Onset: 5 Unclassified (1 source) EMS Onset: 4 Past or Other Problems Problem Classification Problem Date Documented Da te Episodic/Chronic Abdominal hernia (20 sources) Hiatal hernia; Translations: [Diaphragmatic hernia without obstruction or gangrene] Onset: 09-18-2022 01-19-2023 Episodic Acute and unspecified renal failure (20 sources) Wlhnx-it-dpmrdxi renal failure; Translations: [Acute kidney failure, unspecified] Onset: 09-20-2020 Resolved: 02-03-2023 02-03-2023 Episodic Conditions associated with dizziness or vertigo (20 sources) Vertigo; Translations: [Dizziness and giddiness] Onset: 08-10-2024 06-26-2024 Episodic Coronary atherosclerosis and other heart disease (20 sources) Stented coronary artery; Translations: [Presence of coronary angioplasty implant and graft] Onset: 09-22-2013 Resolved: 08-02-2018 02-03-2023 Episodic Gastritis and duodenitis (20 sources) Gastritis; Translations: [Gastritis, unspecified, without bleeding] Onset: 09-18-2022 01-19-2023 Episodic Gastroduodenal ulcer (except hemorrhage) (20 sources) H/O: gastric ulcer; Translations: [Personal history of peptic ulcer disease] Onset: 09-18-2022 02-03-2023 Episodic Genitourinary symptoms and ill-defined conditions (13 sources) Disorder of the urinary system; Translations: [Disorder of urinary system, unspecified] Onset: 06-06-2021 08-22-2021 Episodic Malaise and fatigue (4 sources) Asthenia; Translations: [Weakness] Onset: 09-14-2024 11-08-2024 Episodic Nonspecific chest pain (20 sources) Chest pain; Translations: [Chest pain, unspecified] Onset: 01-23-2017 Resolved: 02-03-2023 02-03-2023 Episodic Other and unspecified benign neoplasm (20 sources) History of polyp of colon; Translations: [Personal history of colonic polyps] Onset: 04-26-2019 02-03-2023 Episodic Other and unspecified benign neoplasm (13 sources) Polyp of colon; Translations: [Polyp of [...] cough] 05-10-2024 Episodic Other male genital disorders (13 sources) Phimosis; Translations: [Phimosis] Onset: 06-06-2021 07-04-2021 [...] Test Name Value Interpretation Reference Range Facility APTTon 05-24-2025 aPTT Coag (Bld) [Time] 29 s Normal 26-37 [facility] Comment on above: Performed By: #### C BCA, PINR, 34492-0, BMP, 18816-3 #### [facility] ([id number]) [address] [place] [address], [place] [address] #### HA1C #### [facility] ([id number]) [address], [address] [place] [address] BASIC METABOLIC PANELon 05-14 Anion gap [Moles/Vol] 9 mmol/L Normal 5-15 [facility] Comment on above: Performed By: #### C BCA, PINR, 29198-8, BMP, 61355-2 #### [facility] ([id number]) [address] [place] [address] #### HA1C #### [facility] ([id number]) [address], [address] [place] [address] Calcium [Mass/Vol] 8.5 mg/dL Normal 8.5-10.5 [facility] Comment on above: Performed By: #### C BCA, PINR, 66460-9, BMP, 51422-8 #### [facility] ([id number]) [address] [place] [address] #### HA1C #### [facility] ([id number]) [address], [address] [place] [address] Chloride [Moles/Vol] 107 mmol/L Normal 98-109 [facility] Comment on above: Performed By: #### C BCA, PINR, 96856-0, BMP, 96920-0 #### [facility] ([id number]) [address] [place] [address] #### HA1C #### [facility] ([id number]) [address] [place] [address] CO2 [Moles/Vol] 26 mmol/L Normal 22-32 [facility] Comment on above: Performed By: #### C BCA, PINR, 98098-0, BMP, 18738-6 #### [facility] ([id number]) [address] [place] [address] #### HA1C #### [facility] ([id number]) [address], [address] [place] [address] Creatinine [Mass/Vol] 1.52 mg/dL High 0.70-1.20 [facility] Comment on above: Result Comment: METH OD TRACEABLE TO IDMS STANDARD Performed By: #### C SHRUTHI CANALES, 05174-6, BMP, 52318-2 #### [facility] ([id number]) [address] [place] [address] #### HA1C #### [facility] ([id number]) [address], [address] [place] [address] GFR/1.73 sq M.predicted among non-blacks MDRD (S/P/Bld) [Vol rate/Area] 47 mL/min/{1.73_m2} Low >=60 [facility] Comment on above: Result Comment: eGFR not reported due to non-numeric value for Creatinine. Reported eGFR is based on the CKD-EPI 2020 equation that does not use a race coefficient. Performed By: #### C SHRUTHI CANALES, 11602-1, BMP, 66671-8 #### [facility] ([id number]) [address] [place] [address] #### HA1C #### [facility] ([id number]) [address], [address] [place] [address] Glucose [Mass/Vol] 121 mg/dL High 65-99 [facility] Comment on above: Performed By: #### C SHRUTHI CANALES, 48170-9, BMP, 75700-6 #### [facility] ([id number]) [address] [place] [address] #### HA1C #### [facility] ([id number]) [address] [place] [address] Potassium [Moles/Vol] 3.8 mmol/L Normal 3.5-5.0 [facility] Comment on above: Performed By: #### C ALLY PINR, 60607-1, BMP, 30455-8 #### [facility] ([id number]) [address] [place] [address] #### HA1C #### [facility] ([id number]) [address], [address] [place] [address] Sodium [Moles/Vol] 142 mmol/L Normal 134-146 [facility] Comment on above: Performed By: #### C BCA, PINR, 62935-8, BMP, 33920-4 #### [facility] ([id number]) [address] [place] [address] #### HA1C #### [facility] ([id number]) [address], [address] [place] [address] Urea nitrogen [Mass/Vol] 21 mg/dL Normal 5-27 [facility] Comment on above: Performed By: #### C BCA, PINR, 58088-2, BMP, 26188-2 #### [facility] ([id number]) [address] [place] [address] #### HA1C #### [facility] ([id number]) [address], [address] [place] [address] CBC WITH AUTO DIFFERENTIALon 05-24-2025 BASOPHILS ABSOLUTE COUNT (10*3/UL) BY AUTOMATED COUNT 0.0 10*3/uL Normal 0.0-0.2 [facility] Comment on above: Performed By: #### C BCA, PINR, 88241-1, BMP, 44881-5 #### [facility] ([id number]) [address] [place] [address] #### HA1C #### [facility] ([id number]) [address], [address] [place] [address] BASOPHILS RELATIVE PERCENT BY AUTOMATED COUNT 0.5 % Normal [facility] Comment on above: Performed By: #### C BCA, PINR, 13731-7, BMP, 74478-3 #### [facility] ([id number]) [address] [place] [address] #### HA1C #### [facility] ([id number]) [address], [address] [place] [address] CELLAVISION DIFFERENTIAL TYPE AUTOMATED DIFFERENTIAL Normal [facility] Comment on above: Performed By: #### C BCA, PINR, 76212-0, BMP, 35075-5 #### [facility] ([id number]) [address] [place] [address] #### HA1C #### [facility] ([id number]) [address], [address] [place] [address] Eosinophils (Bld) [#/Vol] 0.2 10*3/uL Normal 0.0-0.4 [facility] Comment on above: Performed By: #### C BCA, PINR, 80977-4, BMP, 71423-7 #### [facility] ([id number]) [address] [place] [address] #### HA1C #### [facility] ([id number]) [address], [address] [place] [address] EOSINOPHILS RELATIVE PERCENT BY AUTOMATED COUNT 3.7 % Normal [facility] Comment on above: Performed By: #### C BCA, PINR, 20120-8, BMP, 76353-7 #### [facility] ([id number]) [address] [place] [address] #### HA1C #### [facility] ([id number]) [address] [place] [address] Erythrocyte distribution width (RBC) [Ratio] 15.2 % High 11.5-15 [facility] Comment on above: Performed By: #### C BCA, PINR, 05212-4, BMP, 28241-4 #### [facility] ([id number]) [address] [place] [address] #### HA1C #### [facility] ([id number]) [address], [address] [place] [address] Hematocrit (Bld) [Volume fraction] 40.1 % Normal 39-50 [facility] Comment on above: Performed By: #### C BCA, PINR, 65607-9, BMP, 72621-7 #### [facility] ([id number]) [address] [place] [address] #### HA1C #### [facility] ([id number]) [address], [address] [place] [address] Hemoglobin (Bld) [Mass/Vol] 13.4 g/dL Normal 13-17 [facility] Comment on above: Performed By: #### C BCA, PINR, 72477-4, BMP, 43530-4 #### [facility] ([id number]) [address] [place] [address] #### HA1C #### [facility] ([id number]) [address], [address] [place] [address] LYMPHOCYTES ABSOLUTE COUNT (10*3/UL) BY AUTOMATED COUNT 2.0 10*3/uL Normal 1.0-3.5 [facility] Comment on above: Performed By: #### C BCA, PINR, 15574-1, BMP, 57614-9 #### [facility] ([id number]) [address] [place] [address] #### HA1C #### [facility] ([id number]) [address], [address] [place] [address] LYMPHOCYTES RELATIVE PERCENT BY AUTOMATED COUNT 32.6 % Normal [facility] Comment on above: Performed By: #### C BCA, PINR, 82400-2, BMP, 98141-5 #### [facility] ([id number]) [address] [place] [address] #### HA1C #### [facility] ([id number]) [address], [address] [place] [address] MCH (RBC) [Entitic mass] 29.0 pg Normal 27-34 [facility] Comment on above: Performed By: #### C BCA, PINR, 14879-7, BMP, 96818-3 #### [facility] ([id number]) [address] [place] [address] #### HA1C #### [facility] ([id number]) [address] [place] [address] MCHC (RBC) [Mass/Vol] 33.4 g/dL Normal 32-36 [facility] Comment on above: Performed By: #### C BCA, PINR, 82282-7, BMP, 64067-9 #### [facility] ([id number]) [address] [place] [address] #### HA1C #### [facility] ([id number]) [address], [address] [place] [address] MCV (RBC) [Entitic vol] 87 fL Normal 80-100 [facility] Comment on above: Performed By: #### C BCA, PINR, 73341-5, BMP, 73185-0 #### [facility] ([id number]) [address] [place] [address] #### HA1C #### [facility] ([id number]) [address] [place] [address] MONOCYTES ABSOLUTE COUNT (10*3/UL) BY AUTOMATED COUNT 0.5 10*3/uL Normal 0.0-0.9 [facility] Comment on above: Performed By: #### C BCA, PINR, 16521-2, BMP, 08556-1 #### [facility] ([id number]) [address] [place] [address] #### HA1C #### [facility] ([id number]) [address] [place] [address] MONOCYTES RELATIVE PERCENT BY AUTOMATED COUNT 8.2 % Normal [facility] Comment on above: Performed By: #### C ALLY, PINR, 42133-4, BMP, 95388-3 #### [facility] ([id number]) [address] [place] [address] #### HA1C #### [facility] ([id number]) [address] [place] [address] NEUTROPHILS ABSOLUTE COUNT BY AUTOMATED COUNT 3.4 10*3/uL Normal 1.5-6.6 [facility] Comment on above: Performed By: #### C ALLY, PINR, 56105-8, BMP, 64979-1 #### [facility] ([id number]) [address] [place] [address] #### HA1C #### [facility] ([id number]) [address] [place] [address] NEUTROPHILS RELATIVE PERCENT BY AUTOMATED COUNT 55.0 % Normal [facility] Comment on above: Performed By: #### C ALLY, PINR, 70278-0, BMP, 87996-5 #### [facility] ([id number]) [address] [place] [address] #### HA1C #### [facility] ([id number]) [address] [place] [address] Platelet mean volume (Bld) [Entitic vol] 7.1 fL Normal 7-12 [facility] Comment on above: Performed By: #### C SHRUTHI CANALES, 09248-3, BMP, 74539-0 #### [facility] ([id number]) [address] [place] [address] #### HA1C #### [facility] ([id number]) [address] [place] [address] Platelets (Bld) [#/Vol] 172 10*3/uL Normal 150-450 [facility] Comment on above: Performed By: #### C SHRUTHI CANALES, 08189-5, BMP, 04784-2 #### [facility] ([id number]) [address] [place] [address] #### HA1C #### [facility] ([id number]) [address] [place] [address], [address] [place] [address] RBC COUNT 4.63 X10E12/L Normal 4.1-5.7 [facility] Comment on above: Performed By: #### C SHRUTHI CANALES, 29767-3, BMP, 78616-3 #### [facility] ([id number]) [address] [place] [address] #### HA1C #### [facility] ([id number]) [address] [place] [address] WBC (Bld) [#/Vol] 6.2 10*3/uL Normal 4-11 [facility] Comment on above: Performed By: #### C ANUP CANALESR, 79693-3, BMP, 42945-4 #### [facility] ([id number]) [address] [place] [address] #### HA1C #### [facility] ([id number]) [address] [place] [address] D-DIMERon 05-24-2025 D DIMER 199 ng/mL Normal 1-255 [facility] Comment on above: Result Comment: Resu lts <255 ng/mL DDU: The presensence of a VTE can safely be excluded with a negative D-Dimer result and Wells score. A negative result doesn't exclude the possibility of DIC. The test should be repeated along with other diagnostic tests if the patient's symptoms persist or worsen. Performed By: #### C BCA, PINR, 41568-0, BMP, 69398-7 #### [facility] ([id number]) [address] [place] [address] #### HA1C #### [facility] ([id number]) [address], [address] [place] [address] LACTATE W/ REFLEXon 05-24-20 25 LACTATE W/REFLEX 0.7 mmol/L Normal 0.4-2.0 [facility] Comment on above: Order Comment: Resul t did not trigger repeat Lactate,re-order if needed. Performed By: #### C BCA, PINR, 16367-3, BMP, 54299-5 #### [facility] ([id number]) [address] [place] [address] #### HA1C #### [facility] ([id number]) [address] [facility], [address] [place] [address] MAGNESIUMon 05-24-2025 Magnesium [Mass/Vol] 1.7 mg/dL Low 1.8-2.6 [facility] Comment on above: Performed By: #### C BCA, PINR, 62951-9, BMP, 29490-7 #### [facility] ([id number]) [address] [place] [address] 35693 #### HA1C #### [facility] ([id number]) [address] [facility], [address] [place] [address] PROTIME AND INRon 05-24-2025 INR 1.1 Normal 0.9-1.2 [facility] Comment on above: Performed By: #### C ANUP CANALESR, 51672-7, BMP, 40098-4 #### [facility] ([id number]) [address] [place] [address] #### HA1C #### [facility] ([id number]) [address] [facility], [address] [place] [address] PT Coag (PPP) [Time] 12.3 s Normal 9.8-13.2 [facility] Comment on above: Performed By: #### C ALLY, PINR, 50451-2, BMP, 07098-5 #### [facility] ([id number]) [address] [place] [address] #### HA1C #### [facility] ([id number]) [address] [facility], [address] [place] [address] SARS/FLU A+B/RSV BY NAAT/MOL ECULAR (M4RT COLLECTION TUBE)on 05-24-2025 SARS/FLU A+B/RSV BY NAAT/MOLECULAR (M4RT COLLECTION TUBE) FLU A PCR Negative FLU B PCR Negative RSV BY PCR Negative SARS COV 2 BY PCR Not Detected Normal Not Detected [facility] Comment on above: Order Comment: The X pert Xpress SARS-CoV-2/Flu/RSV Plus test is a rapid, [...] operators who are performing tests using either [employer] or [employer] systems and is limited to laboratories that [...] inhibition unable to be resolved with specimen repeat.Fact Sheet for Healthcare Providers:https://www.fda.gov/media/888690/downloadFact Sheet for Patients:https://www.fda.gov/media/188620/download Performed By: #### C ALLY PINR, 99526-1, BMP, 19006-6 #### [facility] ([id number]) [address] [place] [address] 85[address] #### HA1C #### [facility] ([id number]) [address] [place] [address], [address] [place] [address] TROP I, HIGH SENSITIVITY 1 H OURon 05-24-2025 TROPONIN I, HIGH SENSITIVITY 5 ng/L Normal <21 [facility] Comment on above: Performed By: #### C ALLY PINR, 49594-1, [facility], 84786-5 #### [facility] ([id number]) [address] [place] [address] 45[address] #### HA1C #### [facility] ([id number]) [address] [place] [address], [address] [place] [address] TROPONIN I, HIGH SENSITIVITY 0 HOURon 05-24-2025 TROPONIN I, HIGH SENSITIVITY 5 ng/L Normal <21 [facility] Comment on above: Performed By: #### C BCA, PINR, 94542-5, BMP, 30469-1 #### [facility] ([id number]) [address] [place] [address] #### HA1C #### [facility] ([id number]) [address], [address] [place] [address] XR CHEST 1 VWon 05-24-2025 XR CHEST 1 VW XR CHEST 1 VW Single view chest History: Weakness and chest pain Comparison: X-ray 09/14/2024 Findings: Single portable view of the chest. Cardiomediastinal silhouette and pulmonary vasculature are within normal limits. Hypoventilatory changes. Otherwise Lungs and pleural space are clear. There is no pleural effusion or pneumothorax.. Impression: Hypoventilatory changes otherwise no acute cardiopulmonary process. Finalized by Caleb Martinez on 05/24/2025 8:43 AM Normal [facility] BASIC METABOLIC PANELon 01-11 Anion gap [Moles/Vol] 4 mmol/L Low 5-15 [facility] Comment on above: Performed By: #### C BCA, PINR, 07952-3, BMP, 20943-4 #### [facility] ([id number]) [address] [place] [address] #### HA1C #### [facility] ([id number]) [address], [address] [place] [address] Calcium [Mass/Vol] 8.0 mg/dL Low 8.5-10.5 [facility] Comment on above: Performed By: #### C BCA, PINR, 17867-4, BMP, 91786-5 #### [facility] ([id number]) [address] [place] [address] 47247 #### HA1C #### [facility] ([id number]) [address], [address] [place] [address] Chloride [Moles/Vol] 111 mmol/L High 98-109 [facility] Comment on above: Performed By: #### C BCA, PINR, 07663-4, BMP, 92524-3 #### [facility] ([id number]) [address] [place] [address] 050[address] #### HA1C #### [facility] ([id number]) [address] [facility], [address] [place] [address] CO2 [Moles/Vol] 23 mmol/L Normal 22-32 [facility] Comment on above: Performed By: #### C BCA, PINR, 70701-6, BMP, 60077-8 #### [facility] ([id number]) [address] [place] [address] 64634 #### HA1C #### [facility] ([id number]) [address] [facility], [address] [place] [address] Creatinine [Mass/Vol] 1.69 mg/dL High 0.70-1.20 [facility] Comment on above: Result Comment: METH OD TRACEABLE TO IDMS STANDARD Performed By: #### C BCA, PINR, 50186-6, BMP, 07070-2 #### [facility] ([id number]) [address] [place] [address] #### HA1C #### [facility] ([id number]) [address] [facility], [address] [place] [address] GFR/1.73 sq M.predicted among non-blacks MDRD (S/P/Bld) [Vol rate/Area] 41 mL/min/{1.73_m2} Low >=60 [facility] Comment on above: Result Comment: eGFR not reported due to non-numeric value for Creatinine. Reported eGFR is based on the CKD-EPI 2021 equation that does not use a race coefficient. Performed By: #### C BCA, PINR, 85536-3, BMP, 95153-7 #### [facility] ([id number]) [address] [place] [address] 03497 #### HA1C #### [facility] ([id number]) [address], [address] [place] [address] Glucose [Mass/Vol] 89 mg/dL Normal 65-99 [facility] Comment on above: Performed By: #### C BCA, PINR, 76285-7, BMP, 29166-5 #### [facility] ([id number]) [address] [place] [address] 80832 #### HA1C #### [facility] ([id number]) [address], [address] [place] [address] Potassium [Moles/Vol] 4.3 mmol/L Normal 3.5-5.0 [facility] Comment on above: Performed By: #### C BCA, PINR, 33687-0, BMP, 03517-9 #### [facility] ([id number]) [address] [place] [address] 89173 #### HA1C #### [facility] ([id number]) [address], [address] [place] [address] Sodium [Moles/Vol] 138 mmol/L Normal 134-146 [facility] Comment on above: Performed By: #### C BCA, PINR, 22526-4, BMP, 65560-3 #### [facility] ([id number]) [address] [place] [address] 76[address] #### HA1C #### [facility] ([id number]) [address], [address] [place] [address] Urea nitrogen [Mass/Vol] 25 mg/dL Normal 5-27 [facility] Comment on above: Performed By: #### C BCA, PINR, 59832-2, BMP, 24004-9 #### [facility] ([id number]) [address] [place] [address] 69670 #### HA1C #### [facility] ([id number]) [address], [address] [place] [address] CBC WITH AUTO DIFFERENTIALon 01-22-2025 BASOPHILS ABSOLUTE COUNT (10*3/UL) BY AUTOMATED COUNT 0.0 10*3/uL Normal 0.0-0.2 [facility] Comment on above: Performed By: #### C BCA, PINR, 30155-3, BMP, 92149-6 #### [facility] ([id number]) [address] [place] [address] 35212 #### HA1C #### [facility] ([id number]) [address], [address] [place] [address] BASOPHILS RELATIVE PERCENT BY AUTOMATED COUNT 0.3 % Normal [facility] Comment on above: Performed By: #### C BCA, PINR, 49385-9, BMP, 53344-9 #### [facility] ([id number]) [address] [place] [address] 81194 #### HA1C #### [facility] ([id number]) [address], [address] [place] [address] CELLAVISION DIFFERENTIAL TYPE AUTOMATED DIFFERENTIAL Normal [facility] Comment on above: Performed By: #### C BCA, PINR, 73214-6, BMP, 95938-4 #### [facility] ([id number]) [address] [place] [address] 07059 #### HA1C #### [facility] ([id number]) [address], [address] [place] [address] Eosinophils (Bld) [#/Vol] 0.2 10*3/uL Normal 0.0-0.4 [facility] Comment on above: Performed By: #### C BCA, PINR, 09494-4, BMP, 19773-4 #### [facility] ([id number]) [address] [place] [address] 94748 #### HA1C #### [facility] ([id number]) [address], [address] [place] [address] EOSINOPHILS RELATIVE PERCENT BY AUTOMATED COUNT 2.9 % Normal [facility] Comment on above: Performed By: #### C ALLY, PINR, 15934-4, BMP, 85900-4 #### [facility] ([id number]) [address] [place] [address] 01273 #### HA1C #### [facility] ([id number]) [address], [address] [place] [address] Erythrocyte distribution width (RBC) [Ratio] 14.3 % Normal 11.5-15 [facility] Comment on above: Performed By: #### C ALLY, PINR, 65769-6, BMP, 33685-6 #### [facility] ([id number]) [address] [place] [address] 46038 #### HA1C #### [facility] ([id number]) [address], [address] [place] [address] Hematocrit (Bld) [Volume fraction] 39.7 % Normal 39-50 [facility] Comment on above: Performed By: #### C ALLY, PINR, 56945-1, BMP, 84515-7 #### [facility] ([id number]) [address] [place] [address] 87502 #### HA1C #### [facility] ([id number]) [address], [address] [place] [address] Hemoglobin (Bld) [Mass/Vol] 13.4 g/dL Normal 13-17 [facility] Comment on above: Performed By: #### C ALLY PINR, 21397-1, BMP, 71403-8 #### [facility] ([id number]) [address] [place] [address] 11205 #### HA1C #### [facility] ([id number]) [address], [address] [place] [address] LYMPHOCYTES ABSOLUTE COUNT (10*3/UL) BY AUTOMATED COUNT 2.1 10*3/uL Normal 1.0-3.5 [facility] Comment on above: Performed By: #### C ALLY PINR, 12229-2, BMP, 90519-7 #### [facility] ([id number]) [address] [place] [address] 62623 #### HA1C #### [facility] ([id number]) [address], [address] [place] [address] LYMPHOCYTES RELATIVE PERCENT BY AUTOMATED COUNT 32.7 % Normal [facility] Comment on above: Performed By: #### C ALLY PINR, 28348-0, BMP, 79734-6 #### [facility] ([id number]) [address] [place] [address] 42036 #### HA1C #### [facility] ([id number]) [address] [place] [address] MCH (RBC) [Entitic mass] 29.3 pg Normal 27-34 [facility] Comment on above: Performed By: #### C ALLY, PINR, 19828-1, BMP, 74701-2 #### [facility] ([id number]) [address] [place] [address] 92519 #### HA1C #### [facility] ([id number]) [address] [place] [address] MCHC (RBC) [Mass/Vol] 33.8 g/dL Normal 32-36 [facility] Comment on above: Performed By: #### C BCA, PINR, 11759-4, BMP, 44871-9 #### [facility] ([id number]) [address] [place] [address] 27600 #### HA1C #### [facility] ([id number]) [address] [facility], [address] [place] [address] MCV (RBC) [Entitic vol] 87 fL Normal 80-100 [facility] Comment on above: Performed By: #### C ALLY, PINR, 96550-6, BMP, 36590-8 #### [facility] ([id number]) [address] [place] [address] 51603 #### HA1C #### [facility] ([id number]) [address] [facility], [address] [place] [address] MONOCYTES ABSOLUTE COUNT (10*3/UL) BY AUTOMATED COUNT 0.5 10*3/uL Normal 0.0-0.9 [facility] Comment on above: Performed By: #### C BCA, PINR, 04933-4, BMP, 50497-3 #### [facility] ([id number]) [address] [place] [address] 59433 #### HA1C #### [facility] ([id number]) [address] [facility], [address] [place] [address] MONOCYTES RELATIVE PERCENT BY AUTOMATED COUNT 8.2 % Normal [facility] Comment on above: Performed By: #### C BCA, PINR, 19429-6, BMP, 78974-8 #### [facility] ([id number]) [address] [place] [address] 81014 #### HA1C #### [facility] ([id number]) [address] [facility], [address] [place] [address] NEUTROPHILS ABSOLUTE COUNT BY AUTOMATED COUNT 3.6 10*3/uL Normal 1.5-6.6 [facility] Comment on above: Performed By: #### C BCA, PINR, 87472-6, BMP, 04842-0 #### [facility] ([id number]) [address] [place] [address] 71841 #### HA1C #### [facility] ([id number]) [address] [place] [address], [address] [place] [address] NEUTROPHILS RELATIVE PERCENT BY AUTOMATED COUNT 55.9 % Normal [facility] Comment on above: Performed By: #### C BCA, PINR, 80578-6, BMP, 68490-0 #### [facility] ([id number]) [address] [place] [address] 66098 #### HA1C #### [facility] ([id number]) [address] [place] [address], [address] [place] [address] Platelet mean volume (Bld) [Entitic vol] 7.5 fL Normal 7-12 [facility] Comment on above: Performed By: #### C BCA, PINR, 05150-8, BMP, 21489-7 #### [facility] ([id number]) [address] [place] [address] 80100 #### HA1C #### [facility] ([id number]) [address] [place] [address], [address] [place] [address] Platelets (Bld) [#/Vol] 194 10*3/uL Normal 150-450 [facility] Comment on above: Performed By: #### C BCA, PINR, 80293-0, BMP, 07422-8 #### [facility] ([id number]) [address] [place] [address] 68113 #### HA1C #### [facility] ([id number]) [address] [facility], [address] [place] [address] RBC COUNT 4.58 X10E12/L Normal 4.1-5.7 [facility] Comment on above: Performed By: #### C BCA, PINR, 26969-4, BMP, 66501-8 #### [facility] ([id number]) [address] [place] [address] 58964 #### HA1C #### [facility] ([id number]) [address] [place] [address], [address] [place] [address] WBC (Bld) [#/Vol] 6.5 10*3/uL Normal 4-11 [facility] Comment on above: Performed By: #### C BCA, PINR, 69807-7, BMP, 05929-8 #### [facility] ([id number]) [address] [place] [address] 96408 #### HA1C #### [facility] ([id number]) [address] [place] [address], [address] [place] [address] MAGNESIUMon 01-22-2025 Magnesium [Mass/Vol] 1.8 mg/dL Normal 1.8-2.6 [facility] Comment on above: Performed By: #### C BCA, PINR, 36255-9, BMP, 55705-2 #### [facility] ([id number]) [address] [place] [address] 23297 #### HA1C #### [facility] ([id number]) [address] [place] [address], [address] [place] [address] Laboratory - Chemistry and C hemistry - challengeon 12-07-2024 Free T3 [Mass/Vol] 3.2 pg/mL 2.3 - 4.2 pg/mL [facility] Free T4 [Mass/Vol] 1.1 ng/dL 0.8 - 1.8 ng/dL [facility] Prostate specific Ag [Mass/Vol] 0.32 ng/mL < OR = 4.00 [facility] Comment on above: The total PSA value [...] absence of disease. TSH Qn 4.48 m[IU]/L [facility] are No Panel Informationon 12-07 Performing Organization Information Site ID: QPT Name: [facility] Address: [address] [place] [address] Director: Ariel Bermeo MD [facility], TOTALon 12-07-2024 PSA, TOTAL 0.32 [...] of disease. Performed By: #### 8 66, 022, 19224, 0665 #### [facility] [address], [address] [place] [address] Backhaul Driver: Ariel Bermeo MD T3, FREEon 12-07-2024 Free T3 [Mass/Vol] 3.2 pg/mL Normal 2.3-4.2 [facility] Comment on above: Performed By: #### 8 66, 215, 57792, 9515 #### [email or web address] [address], [address] [place] [address] Backhaul Driver: Ariel Bermeo MD T4, FREEon 12-07-2024 Free T4 [Mass/Vol] 1.1 ng/dL Normal 0.8-1.8 [facility] Comment on above: Performed By: #### 8 66, 899, 82625, 5363 #### [facility] [address], [address] [place] [address] Backhaul Driver: Ariel Bermeo MD TSHon 12-07-2024 TSH Qn 4.48 m[IU]/L Normal 0.40-4.50 [facility] Comment on above: Performed By: #### 8 66, 899, 61131, 5363 #### [facility] [address], [address] [place] [address] Backhaul Driver: Ariel Bermeo MD EMG 2 Extremitieson 11-17-19 25 [facility] NVC 11-12 NervesOrdered By: Tyler Sanchez on 11-16-2024 [employer] Work Phone: CBC AND AUTO DIFFon 10-07-19 ABSOLUTE BASOPHIL 0.0 X10E9/L Normal 0.0-0.2 [facility] Comment on above: Performed By: #### C BCA, PINR, 93532-6, BMP, 09714-1 #### [facility] ([id number]) [address] [place] [address] 00721 #### HA1C #### [facility] ([id number]) [address] [facility], [address] [place] [address] ABSOLUTE NEUTROPHIL 3.1 X10E9/L Normal 1.5-6.6 [facility] Comment on above: Performed By: #### C BCA, PINR, 29439-1, BMP, 40162-3 #### [facility] ([id number]) [address] [place] [address] 60160 #### HA1C #### [facility] ([id number]) [address] [facility], [address] [place] [address] Basophils/100 WBC (Bld) 0.4 % Normal [facility] Comment on above: Performed By: #### C BCA, PINR, 60613-1, BMP, 37028-3 #### [facility] ([id number]) [address] [place] [address] 59777 #### HA1C #### [facility] ([id number]) [address] [place] [address] Eosinophils (Bld) [#/Vol] 0.1 10*3/uL Normal 0.0-0.4 [facility] Comment on above: Performed By: #### C BCA, PINR, 60055-8, BMP, 34828-3 #### [facility] ([id number]) [address] [place] [address] 49707 #### HA1C #### [facility] ([id number]) [address] [place] [address] Eosinophils/100 WBC (Bld) 2.0 % Normal [facility] Comment on above: Performed By: #### C ALLY, PINR, 09712-8, BMP, 85413-2 #### [facility] ([id number]) [address] [place] [address] 04304 #### HA1C #### [facility] ([id number]) [address] [place] [address] Erythrocyte distribution width (RBC) [Ratio] 14.5 % Normal 11.5-15.0 [facility] Comment on above: Performed By: #### C BCA, PINR, 82289-2, BMP, 38012-9 #### [facility] ([id number]) [address] [place] [address] 80984 #### HA1C #### [facility] ([id number]) [address] [place] [address] Hematocrit (Bld) [Volume fraction] 39.2 % Normal 39-49 [facility] Comment on above: Performed By: #### C BCA, PINR, 96513-8, BMP, 13999-0 #### [facility] ([id number]) [address] [place] [address] 75162 #### HA1C #### [facility] ([id number]) [address] [place] [address] Hemoglobin (Bld) [Mass/Vol] 13.3 g/dL Normal 13.0-17.0 [facility] Comment on above: Performed By: #### C ALLY, PINR, 27237-1, BMP, 98111-5 #### [facility] ([id number]) [address] [place] [address] 36466 #### HA1C #### [facility] ([id number]) [address], [address] [place] [address] Lymphocytes (Bld) [#/Vol] 2.0 10*3/uL Normal 1.0-3.5 [facility] Comment on above: Performed By: #### C BCA, PINR, 77281-9, BMP, 29481-9 #### [facility] ([id number]) [address] [place] [address] 20899 #### HA1C #### [facility] ([id number]) [address] [place] [address] Lymphocytes/100 WBC (Bld) 34.9 % Normal [facility] Comment on above: Performed By: #### C BCA, PINR, 85436-3, BMP, 50328-8 #### [facility] ([id number]) [address] [place] [address] #### HA1C #### [facility] ([id number]) [address], [address] [place] [address] MCH (RBC) [Entitic mass] 29.8 pg Normal 27-34 [facility] Comment on above: Performed By: #### C SHRUTHI CANALES, 17990-7, BMP, 70244-1 #### [facility] ([id number]) [address] [place] [address] #### HA1C #### [facility] ([id number]) [address] [place] [address] MCHC (RBC) [Mass/Vol] 33.9 g/dL Normal 32-36 [facility] Comment on above: Performed By: #### C SHRUTHI CANALES, 70538-0, BMP, 24213-1 #### [facility] ([id number]) [address] [place] [address] #### HA1C #### [facility] ([id number]) [address] [place] [address] MCV (RBC) [Entitic vol] 88 fL Normal 80-100 [facility] Comment on above: Performed By: #### C ANUP CANALESR, 22410-2, BMP, 93298-2 #### [facility] ([id number]) [address] [place] [address] #### HA1C #### [facility] ([id number]) [address] [place] [address] Monocytes (Bld) [#/Vol] 0.5 10*3/uL Normal 0-0.9 [facility] Comment on above: Performed By: #### C ALLY PINR, 93462-4, BMP, 39201-8 #### [facility] ([id number]) [address] [place] [address] #### HA1C #### [facility] ([id number]) [address], [address] [place] [address] Monocytes/100 WBC (Bld) 8.6 % Normal [facility] Comment on above: Performed By: #### C ALLY, PINR, 14555-9, BMP, 52305-0 #### [facility] ([id number]) [address] [place] [address] #### HA1C #### [facility] ([id number]) [address] [place] [address] Neutrophils/100 WBC (Bld) 54.1 % Normal [facility] Comment on above: Performed By: #### C ALLY, PINR, 22683-6, BMP, 51125-7 #### [facility] ([id number]) [address] [place] [address] #### HA1C #### [facility] [facility] ([id number]) [address] [facility], [address] [place] [address] Platelet mean volume (Bld) [Entitic vol] 8.0 fL Normal 7-12 [facility] Comment on above: Performed By: #### C ALLY, PINR, 96521-5, BMP, 43331-4 #### [facility] ([id number]) [address] [place] [address] 57340 #### HA1C #### [facility] ([id number]) [address] [facility], [address] [place] [address] Platelets (Bld) [#/Vol] 164 10*3/uL Normal 150-450 [facility] Comment on above: Performed By: #### C ALLY, PINR, 99789-1, BMP, 16435-4 #### [facility] ([id number]) [address] [place] [address] 43898 #### HA1C #### [facility] ([id number]) [address], [address] [place] [address] RBC COUNT 4.45 X10E12/L Normal 4.10-5.70 [facility] Comment on above: Performed By: #### C BCA, PINR, 33287-4, BMP, 60446-9 #### [facility] ([id number]) [address] [place] [address] 49441 #### HA1C #### [facility] ([id number]) [address] [facility], [address] [place] [address] WBC (Bld) [#/Vol] 5.7 10*3/uL Normal 4.0-11.0 [facility] Comment on above: Performed By: #### C BCA, PINR, 36557-1, BMP, 97787-5 #### [facility] ([id number]) [address] [place] [address] 15642 #### HA1C #### [facility] ([id number]) [address] [facility], [address] [place] [address] COMPREHENSIVE METABOLIC PANE Reji 10-07-2024 Albumin [Mass/Vol] 3.6 g/dL Normal 3.2-5.3 [facility] Comment on above: Performed By: #### C BCA, PINR, 62182-2, BMP, 45631-0 #### [facility] ([id number]) [address] [place] [address] 90147 #### HA1C #### [facility] ([id number]) [address] [facility], [address] [place] [address] ALP [Catalytic activity/Vol] 67 U/L Normal 39-130 [facility] Comment on above: Performed By: #### C BCA, PINR, 56510-7, BMP, 38009-2 #### [facility] ([id number]) [address] [place] [address] 04762 #### HA1C #### [facility] ([id number]) [address] [place] [address], [address] [place] [address] ALT [Catalytic activity/Vol] 32 U/L Normal 0-40 [facility] Comment on above: Performed By: #### C BCA, PINR, 94550-6, BMP, 51239-3 #### [facility] ([id number]) [address] [place] [address] 51203 #### HA1C #### [facility] ([id number]) [address] [place] [address], [address] [place] [address] Anion gap [Moles/Vol] 8 mmol/L Normal 5-15 [facility] Comment on above: Performed By: #### C BCA, PINR, 71264-5, BMP, 52339-3 #### [facility] ([id number]) [address] [place] [address] 38214 #### HA1C #### [facility] ([id number]) [address] [place] [address], [address] [address] AST [Catalytic activity/Vol] 30 U/L Normal 0-41 [facility] Comment on above: Performed By: #### C BCA, PINR, 05349-7, BMP, 59420-2 #### [facility] ([id number]) [address] [place] [address] 41182 #### HA1C #### [facility] ([id number]) [address] [place] [address], [address] [place] [address] Bilirubin [Mass/Vol] 0.9 mg/dL Normal 0.3-1.2 [facility] Comment on above: Performed By: #### C BCA, PINR, 99196-9, BMP, 08970-9 #### [facility] ([id number]) [address] [place] [address] 52071 #### HA1C #### [facility] ([id number]) [address] [facility], [address] [place] [address] Calcium [Mass/Vol] 8.4 mg/dL Low 8.5-10.5 [facility] Comment on above: Performed By: #### C BCA, PINR, 51593-1, BMP, 19967-9 #### [facility] ([id number]) [address] [place] [address] 24498 #### HA1C #### [facility] ([id number]) [address] [facility], [address] [place] [address] Chloride [Moles/Vol] 108 mmol/L Normal 98-109 [facility] Comment on above: Performed By: #### C BCA, PINR, 95154-8, BMP, 38961-5 #### [facility] ([id number]) [address] [place] [address] 45765 #### HA1C #### [facility] ([id number]) [address] [facility], [address] [place] [address] CO2 [Moles/Vol] 25 mmol/L Normal 22-32 [facility] Comment on above: Performed By: #### C BCA, PINR, 38971-4, BMP, 96152-6 #### [facility] ([id number]) [address] [place] [address] 31625 #### HA1C #### [facility] ([id number]) [address] [facility], [address] [place] [address] Creatinine [Mass/Vol] 1.30 mg/dL High 0.70-1.20 [facility] Comment on above: Result Comment: METH OD TRACEABLE TO IDMS STANDARD Performed By: #### C BCA, PINR, 20884-4, BMP, 93784-2 #### [facility] ([id number]) [address] [place] [address] 80254 #### HA1C #### [facility] ([id number]) [address] [facility], [facility] [address] [place] [address] GFR/1.73 sq M.predicted among non-blacks MDRD (S/P/Bld) [Vol rate/Area] 57 mL/min/{1.73_m2} Low >59 [facility] Comment on above: Result Comment: Reported eGFR is based on the CKD-EPI 2020 equation that does not use a race coefficient. Performed By: #### C ALLY PINR, 70608-4, BMP, 74415-4 #### [facility] ([id number]) [address] [place] [address] 02708 #### HA1C #### [facility] ([id number]) [address] [facility], [address] [place] [address] Glucose [Mass/Vol] 89 mg/dL Normal 65-99 [facility] Comment on above: Performed By: #### C ALLY PINR, 77403-1, BMP, 40308-2 #### [facility] ([id number]) [address] [place] [address] 12970 #### HA1C #### [facility] ([id number]) [address] [facility], [address] [place] [address] Potassium [Moles/Vol] 3.9 mmol/L Normal 3.5-5.0 [facility] Comment on above: Performed By: #### C ALLY, PINR, 91588-3, BMP, 89231-9 #### [facility] ([id number]) [address] [place] [address] 98927 #### HA1C #### [facility] ([id number]) [address] [facility], [address] [place] [address] Protein [Mass/Vol] 6.1 g/dL Normal 6.0-8.0 [facility] Comment on above: Performed By: #### C BCA, PINR, 20528-5, BMP, 68624-4 #### [facility] ([id number]) [address] [place] [address] 04282 #### HA1C #### [facility] ([id number]) [address] [facility], [address] [place] [address] Sodium [Moles/Vol] 141 mmol/L Normal 134-146 [facility] Comment on above: Performed By: #### C BCA, PINR, 93119-1, BMP, 35277-5 #### [facility] ([id number]) [address] [place] [address] 55197 #### HA1C #### [facility] ([id number]) [address] [place] [address], [address] [place] [address] Urea nitrogen [Mass/Vol] 20 mg/dL Normal 5-27 [facility] Comment on above: Performed By: #### C BCA, PINR, 66290-6, BMP, 07408-2 #### [facility] ([id number]) [address] [place] [address] 01546 #### HA1C #### [facility] ([id number]) [address] [facility], [address] [place] [address] MAGNESIUMon 10-07-2024 Magnesium [Mass/Vol] 1.8 mg/dL Normal 1.8-2.6 [facility] Comment on above: Performed By: #### C BCA, PINR, 03530-7, BMP, 20967-2 #### [facility] ([id number]) [address] [place] [address] 02676 #### HA1C #### [facility] ([id number]) [address] [place] [address], [address] [place] [address] CBC AND AUTO DIFFon 10-06-19 25 ABSOLUTE BASOPHIL 0.0 X10E9/L Normal 0.0-0.2 [facility] Comment on above: Performed By: #### C BCA, PINR, 38885-9, BMP, 57840-8 #### [facility] ([id number]) [address] [place] [address] 33745 #### HA1C #### [facility] ([id number]) [facility] [facility], [address] [place] [address] ABSOLUTE NEUTROPHIL 3.7 X10E9/L Normal 1.5-6.6 [facility] Comment on above: Performed By: #### C BCA, PINR, 11811-6, BMP, 10894-6 #### [facility] ([id number]) [address] [place] [address] 94271 #### HA1C #### [facility] ([id number]) [address] [place] [address], [address] [place] [address] Basophils/100 WBC (Bld) 0.5 % Normal [facility] Comment on above: Performed By: #### C BCA, PINR, 65605-9, BMP, 66860-9 #### [facility] ([id number]) [address] [place] [address] 74154 #### HA1C #### [facility] ([id number]) [address] [place] [address], [address] [place] [address] Eosinophils (Bld) [#/Vol] 0.1 10*3/uL Normal 0.0-0.4 [facility] Comment on above: Performed By: #### C BCA, PINR, 02405-1, BMP, 59806-2 #### [facility] ([id number]) [address] [place] [address] 28910 #### HA1C #### [facility] ([id number]) [address], [address] [place] [address] Eosinophils/100 WBC (Bld) 1.5 % Normal [facility] Comment on above: Performed By: #### C BCA, PINR, 79914-7, BMP, 18444-6 #### [facility] ([id number]) [address] [place] [address] 54333 #### HA1C #### [facility] ([id number]) [address], [address] [place] [address] Erythrocyte distribution width (RBC) [Ratio] 14.7 % Normal 11.5-15.0 [facility] Comment on above: Performed By: #### C BCA, PINR, 17195-6, BMP, 39502-6 #### [facility] ([id number]) [address] [place] [address] 35573 #### HA1C #### [facility] ([id number]) [address], [address] [place] [address] Hematocrit (Bld) [Volume fraction] 41.1 % Normal 39-49 [facility] Comment on above: Performed By: #### C BCA, PINR, 62730-1, BMP, 30561-8 #### [facility] ([id number]) [address] [place] [address] 72989 #### HA1C #### [facility] ([id number]) [address], [address] [place] [address] Hemoglobin (Bld) [Mass/Vol] 13.6 g/dL Normal 13.0-17.0 [facility] Comment on above: Performed By: #### C BCA, PINR, 31238-0, BMP, 22316-1 #### [facility] ([id number]) [address] [place] [address] #### HA1C #### [facility] ([id number]) [address] [facility], [address] [place] [address] Lymphocytes (Bld) [#/Vol] 1.6 10*3/uL Normal 1.0-3.5 [facility] Comment on above: Performed By: #### C BCA, PINR, 30092-8, BMP, 91636-3 #### [facility] ([id number]) [address] [place] [address] 25354 #### HA1C #### [facility] ([id number]) [address] [place] [address], [address] [place] [address] Lymphocytes/100 WBC (Bld) 27.9 % Normal [facility] Comment on above: Performed By: #### C BCA, PINR, 12133-1, BMP, 65972-0 #### [facility] ([id number]) [address] [place] [address] 30741 #### HA1C #### [facility] ([id number]) [address] [place] [address], [address] [place] [address] MCH (RBC) [Entitic mass] 29.4 pg Normal 27-34 [facility] Comment on above: Performed By: #### C BCA, PINR, 53841-8, BMP, 64319-6 #### [facility] ([id number]) [address] [place] [address] 27883 #### HA1C #### [facility] ([id number]) [address] [place] [address], [address] [place] [address] MCHC (RBC) [Mass/Vol] 33.2 g/dL Normal 32-36 [facility] Comment on above: Performed By: #### C BCA, PINR, 94210-8, BMP, 98636-9 #### [facility] ([id number]) [address] [place] [address] 32483 #### HA1C #### [facility] ([id number]) [address], [address] [place] [address] MCV (RBC) [Entitic vol] 89 fL Normal 80-100 [facility] Comment on above: Performed By: #### C BCA, PINR, 97935-6, BMP, 37833-6 #### [facility] ([id number]) [address] [place] [address] 65586 #### HA1C #### [facility] ([id number]) [address], [address] [place] [address] Monocytes (Bld) [#/Vol] 0.3 10*3/uL Normal 0-0.9 [facility] Comment on above: Performed By: #### C BCA, PINR, 67855-4, BMP, 60768-0 #### [facility] ([id number]) [address] [place] [address] 71587 #### HA1C #### [facility] ([id number]) [address], [address] [place] [address] Monocytes/100 WBC (Bld) 6.1 % Normal [facility] Comment on above: Performed By: #### C BCA, PINR, 63723-1, BMP, 31062-9 #### [facility] ([id number]) [address] [place] [address] 06708 #### HA1C #### [facility] ([id number]) [address], [address] [place] [address] Neutrophils/100 WBC (Bld) 64.0 % Normal [facility] Comment on above: Performed By: #### C BCA, PINR, 31957-3, BMP, 52657-6 #### [facility] ([id number]) [address] [place] [address] 80593 #### HA1C #### [facility] ([id number]) [address], [address] [place] [address] Platelet mean volume (Bld) [Entitic vol] 7.8 fL Normal 7-12 [facility] Comment on above: Performed By: #### C ALLY, PINR, 77269-1, BMP, 37886-0 #### [facility] ([id number]) [address] [place] [address] 60671 #### HA1C #### [facility] ([id number]) [address] [facility] [place] [address] Platelets (Bld) [#/Vol] 184 10*3/uL Normal 150-450 [facility] Comment on above: Performed By: #### C ALLY, PINR, 37965-9, BMP, 21271-3 #### [facility] ([id number]) [address] [place] [address] 81770 #### HA1C #### [facility] ([id number]) [address] [facility], [address] [place] [address] RBC COUNT 4.64 X10E12/L Normal 4.10-5.70 [facility] Comment on above: Performed By: #### C ALLY, PINR, 91811-6, BMP, 60461-9 #### [facility] ([id number]) [address] [place] [address] 69743 #### HA1C #### [facility] ([id number]) [address], [address] [place] [address] WBC (Bld) [#/Vol] 5.7 10*3/uL Normal 4.0-11.0 [facility] Comment on above: Performed By: #### C BCA, PINR, 89055-2, BMP, 32715-0 #### [facility] ([id number]) [address] [place] [address] 38355 #### HA1C #### [facility] ([id number]) [address], [address] [place] [address] COMPREHENSIVE METABOLIC PANE Reji 10-06-2024 Albumin [Mass/Vol] 3.8 g/dL Normal 3.2-5.3 [facility] Comment on above: Performed By: #### C BCA, PINR, 02363-6, BMP, 23562-4 #### [facility] ([id number]) [address] [place] [address] 71349 #### HA1C #### [facility] ([id number]) [address], [address] [place] [address] ALP [Catalytic activity/Vol] 76 U/L Normal 39-130 [facility] Comment on above: Performed By: #### C BCA, PINR, 98045-3, BMP, 26250-0 #### [facility] ([id number]) [address] [place] [address] 28994 #### HA1C #### [facility] ([id number]) [address], [address] [place] [address] ALT [Catalytic activity/Vol] 27 U/L Normal 0-40 [facility] Comment on above: Performed By: #### C BCA, PINR, 32591-4, BMP, 93285-1 #### [facility] ([id number]) [address] [place] [address] 15730 #### HA1C #### [facility] ([id number]) [address], [address] [place] [address] Anion gap [Moles/Vol] 6 mmol/L Normal 5-15 [facility] Comment on above: Performed By: #### C BCA, PINR, 67200-4, BMP, 76914-5 #### [facility] ([id number]) [address] [place] [address] 56360 #### HA1C #### [facility] ([id number]) [address], [address] [place] [address] AST [Catalytic activity/Vol] 29 U/L Normal 0-41 [facility] Comment on above: Performed By: #### C BCA, PINR, 99566-8, BMP, 16249-8 #### [facility] ([id number]) [address] [place] [address] 81435 #### HA1C #### [facility] ([id number]) [address], [address] [place] [address] Bilirubin [Mass/Vol] 0.7 mg/dL Normal 0.3-1.2 [facility] Comment on above: Performed By: #### C BCA, PINR, 91348-7, BMP, 90959-7 #### [facility] ([id number]) [address] [place] [address] 77961 #### HA1C #### [facility] ([id number]) [address], [address] [place] [address] Calcium [Mass/Vol] 8.4 mg/dL Low 8.5-10.5 [facility] Comment on above: Performed By: #### C BCA, PINR, 98762-8, BMP, 72079-8 #### [facility] ([id number]) [address] [place] [address] 43958 #### HA1C #### [facility] ([id number]) [address], [address] [place] [address] Chloride [Moles/Vol] 109 mmol/L Normal 98-109 [facility] Comment on above: Performed By: #### C BCA, PINR, 15042-1, BMP, 90636-6 #### [facility] ([id number]) [address] [place] [address] 76347 #### HA1C #### [facility] ([id number]) [address], [address] [place] [address] CO2 [Moles/Vol] 24 mmol/L Normal 22-32 [facility] Comment on above: Performed By: #### C BCA, PINR, 61362-9, BMP, 04251-6 #### [facility] ([id number]) [address] [place] [address] 04403 #### HA1C #### [facility] ([id number]) [address], [address] [place] [address] Creatinine [Mass/Vol] 1.56 mg/dL High 0.70-1.20 [facility] Comment on above: Result Comment: METH OD TRACEABLE TO IDMS STANDARD Performed By: #### C BCA, PINR, 78940-2, BMP, 74330-2 #### [facility] ([id number]) [address] [place] [address] 53289 #### HA1C #### [facility] ([id number]) [address], [address] [place] [address] GFR/1.73 sq M.predicted among non-blacks MDRD (S/P/Bld) [Vol rate/Area] 45 mL/min/{1.73_m2} Low >59 [facility] Comment on above: Result Comment: Reported eGFR is based on the CKD-EPI 2020 equation that does not use a race coefficient. Performed By: #### C BCA, PINR, 77398-5, BMP, 13623-2 #### [facility] ([id number]) [address] [place] [address] 14187 #### HA1C #### [facility] ([id number]) [address] [facility], [address] [place] [address] Glucose [Mass/Vol] 174 mg/dL High 65-99 [facility] Comment on above: Performed By: #### C BCA, PINR, 40278-0, BMP, 56191-6 #### [facility] ([id number]) [address] [place] [address] 20202 #### HA1C #### [facility] ([id number]) [address] [facility], [address] [place] [address] Potassium [Moles/Vol] 3.7 mmol/L Normal 3.5-5.0 [facility] Comment on above: Performed By: #### C BCA, PINR, 25963-6, BMP, 29029-4 #### [facility] ([id number]) [address] [place] [address] 86539 #### HA1C #### [facility] ([id number]) [facility], [address] [place] [address] Protein [Mass/Vol] 6.5 g/dL Normal 6.0-8.0 [facility] Comment on above: Performed By: #### C BCA, PINR, 85799-2, BMP, 98301-6 #### [facility] ([id number]) [address] [place] [address] 78[address] #### HA1C #### [facility] ([id number]) [address] [facility], [address] [place] [address] Sodium [Moles/Vol] 139 mmol/L Normal 134-146 [facility] Comment on above: Performed By: #### C BCA, PINR, 80699-3, BMP, 87561-8 #### [facility] ([id number]) [address] [place] [address] [place] [address] #### HA1C #### [facility] ([id number]) [address] [facility], [address] [place] [address] Urea nitrogen [Mass/Vol] 20 mg/dL Normal 5-27 [facility] Comment on above: Performed By: #### C BCA, PINR, 81594-2, BMP, 69428-3 #### [facility] ([id number]) [address] [place] [address] #### HA1C #### [facility] ([id number]) [address] [facility], [address] [place] [address] CT BRAIN WO CONT STROKE ALER Ton [...] achievable. Finalized by Joey Tejada MD on 10/06/2024 12:47 PM Normal [facility] Glucose Glucometer (BldC) [M ass/Vol]on 10-06-2024 Glucose [Mass/Vol] 73 mg/dL Normal 65-99 [facility] Glucose [Mass/Vol] 192 mg/dL High 65-99 [facility] LIPASEon 10-06-2024 Lipase [Catalytic activity/Vol] 29 U/L Normal 17-40 [facility] Comment on above: Performed By: #### C BCA, PINR, 17049-2, BMP, 48351-6 #### [facility] ([id number]) [address] [place] [address] #### HA1C #### [facility] ([id number]) [address] [facility], [address] [place] [address] Natriuretic peptide B [Mass/ Vol]on 10-06-2024 Natriuretic peptide B (Bld) [Mass/Vol] 26 pg/mL Normal <100.0 [facility] Comment on above: Performed By: #### C BCA, PINR, 71545-2, BMP, 16222-7 #### [facility] ([id number]) [address] [place] [address], [place] [address] #### HA1C #### [facility] ([id number]) [address] [facility], [address] [place] [address] SARS/FLU A+B/RSV by NAAT/Mol ecularon 10-06-2024 SARS/FLU [...] operators who are performing tests using either GeneViddler DX or ImmunoGen systems and is limited to laboratories that [...] repeat. Fact Sheet for Healthcare Providers: https://www.fda.gov/m edia/880311/download Fact Sheet for Patients: https://www.fda.gov/m edia/697764/download Normal [facility] Comment on above: Performed By: #### C SHRUTHI CANALES, 59973-3, BMP, 00058-3 #### [facility] ([id number]) [address] [place] [address] #### HA1C #### [facility] ([id number]) [address] [place] [address], [address] [place] [address] THYROID PROFILEon 10-06-2024 Free T4 [Mass/Vol] 0.77 ng/dL Normal 0.61-1.60 [facility] Comment on above: Performed By: #### C ALLY PINR, 88504-4, BMP, 55762-1 #### [facility] ([id number]) [address] [place] [address] 21254 #### HA1C #### [facility] ([id number]) [address] [place] [address], [address] [place] [address] TSH 4.84 uIU/mL High 0.49-4.67 [facility] Comment on above: Performed By: #### C ALLY PINR, 09053-4, BMP, 45830-4 #### [facility] ([id number]) [address] [place] [address] 79078 #### HA1C #### [facility] ([id number]) [address] [place] [address], [address] [place] [address] Troponin I.cardiac High sens itivity method [Mass/Vol]on 10-06-2024 1 HOUR TROP I, HIGH SENSITIVITY 4 ng/L Normal <21 [facility] Comment on above: Performed By: #### C BCA, PINR, 73928-6, BMP, 63038-2 #### [facility] ([id number]) [address] [place] [address] 87772 #### HA1C #### [facility] ([id number]) [address] [place] [address], [address] [place] [address] TROPONIN I, HIGH SENSITIVITY 4 ng/L Normal <21 [facility] Comment on above: Performed By: #### C BCA, PINR, 72438-2, BMP, 83728-4 #### [facility] ([id number]) [address] [place] [address] 47986 #### HA1C #### [facility] ([id number]) [address] [place] [address], [address] [place] [address] VITAMIN B12on 10-06-2024 Cobalamin (Vitamin B12) [Mass/Vol] 180 pg/mL Normal 180-914 [facility] Comment on above: Performed By: #### C BCA, PINR, 49506-1, BMP, 94256-8 #### [facility] ([id number]) [address] [place] [address] 17603 #### HA1C #### [facility] ([id number]) [address] [place] [address], [address] [place] [address] aPTT Coag (PPP) [Time]on aPTT Coag (Bld) [Time] 34 s Normal 26-37 [facility] Comment on above: Result Comment: NEW REFERENCE RANGE Performed By: #### C BCA, PINR, 58496-4, BMP, 59802-9 #### [facility] ([id number]) [address] [facility], [place] [address] #### HA1C #### [facility] ([id number]) [address] [facility], [address] [place] [address] BASIC METABOLIC PANELon 09-13 0 Calcium [Mass/Vol] 8.4 mg/dL Low 8.6-10.3 [facility] Comment on above: Order Comment: FASTI NG:YES FASTING: YES Performed By: #### 1 0165 #### [facility] [address] [place], [place] [address] Backhaul Driver: Casi Dinh Chloride [Moles/Vol] 109 mmol/L Normal 98-110 [facility] Comment on above: Order Comment: FASTI NG:YES FASTING: YES Performed By: #### 1 0165 #### [facility] [address] [place], [place] [address] Backhaul Driver: Casi Dinh CO2 [Moles/Vol] 30 mmol/L Normal 20-32 [facility] Comment on above: Order Comment: FASTI NG:YES FASTING: YES Performed By: #### 1 0165 #### [facility] [address] [place] [address] Backhaul Driver: Casi Dinh Creatinine [Mass/Vol] 1.56 mg/dL High 0.70-1.[address] [facility] [address] [facility] Comment on above: Order Comment: FASTI NG:YES FASTING: YES Performed By: #### 1 0165 #### [facility] [address] [place] [address] Backhaul Driver: Casi Dinh GFR/1.73 sq M.predicted among non-blacks MDRD (S/P/Bld) [Vol rate/Area] 45 mL/min/{1.73_m2} Low > OR = 60 [facility] Comment on above: Order Comment: FASTI NG:YES FASTING: YES Performed By: #### 1 0165 #### [facility] [address] [place] [phone] Backhaul Driver: Casi Barnesi Glucose [Mass/Vol] 83 mg/dL Normal 65-99 [facility] Comment on above: Order Comment: FASTI NG:YES FASTING: YES Result Comment: Fasting reference interval Performed By: #### 1 0165 #### [facility] [address] [place], [place] [address] Backhaul Driver: Casi Sanchez Flati Potassium [Moles/Vol] 4.0 mmol/L Normal 3.5-5.3 [facility] Comment on above: Order Comment: FASTI NG:YES FASTING: YES Performed By: #### 1 0165 #### [email or web address] [address] [place] [address] Backhaul Driver: Casi R Flati Sodium [Moles/Vol] 144 mmol/L Normal 135-146 [facility] Comment on above: Order Comment: FASTI NG:YES FASTING: YES Performed By: #### 1 0165 #### [email or web address] [address] [place], [place] [address] Backhaul Driver: Casi R Flati Urea nitrogen [Mass/Vol] 19 mg/dL Normal 7-25 [facility] Comment on above: Order Comment: FASTI NG:YES FASTING: YES Performed By: #### 1 0165 #### [email or web address] [address] [place], [place] [address] Backhaul Driver: Casi R Mollyi Urea nitrogen/Creatinine [Mass ratio] 12 mg/mg Normal 6-22 [facility] Comment on above: Order Comment: FASTI NG:YES FASTING: YES Performed By: #### 1 0165 #### [email or web address] [address] [place], [place] [address] Backhaul Driver: Casi R Flati CBC AND AUTO DIFFon 09-14-19 25 ABSOLUTE BASOPHIL 0.0 X10E9/L Normal 0.0-0.2 [facility] Comment on above: Performed By: #### C BCA, PINR, 97760-2, BMP, 76696-6 #### [facility] ([id number]) [address] [place] [address], [place] [address] #### HA1C #### [facility] ([id number]) [address] [facility], [address] [place] [address] ABSOLUTE NEUTROPHIL 4.5 X10E9/L Normal 1.5-6.6 [facility] Comment on above: Performed By: #### C BCA, PINR, 64630-1, BMP, 16217-7 #### [facility] ([id number]) [address] [place] [address] #### HA1C #### [facility] ([id number]) [address] [facility], [address] [place] [address] Basophils/100 WBC (Bld) 0.6 % Normal [facility] Comment on above: Performed By: #### C BCA, PINR, 31773-5, BMP, 52977-1 #### [facility] ([id number]) [address] [place] [address] #### HA1C #### [facility] ([id number]) [address] [place] [address], [address] [place] [address] Eosinophils (Bld) [#/Vol] 0.2 10*3/uL Normal 0.0-0.4 [facility] Comment on above: Performed By: #### C BCA, PINR, 41737-0, BMP, 71317-3 #### [facility] ([id number]) [address] [place] [address] 25287 #### HA1C #### [facility] ([id number]) [address] [place] [address], [address] [place] [address] Eosinophils/100 WBC (Bld) 2.6 % Normal [facility] Comment on above: Performed By: #### C BCA, PINR, 96074-7, BMP, 39031-1 #### [facility] ([id number]) [address] [place] [address] 72063 #### HA1C #### [facility] ([id number]) [address] [facility] [address] [place] [address] Erythrocyte distribution width (RBC) [Ratio] 14.5 % Normal 11.5-15.0 [facility] Comment on above: Performed By: #### C ALLY, PINR, 85707-5, BMP, 71037-3 #### [facility] ([id number]) [address] [place] [address] 58369 #### HA1C #### [facility] ([id number]) [address] [place] [address], [address] [address] Hematocrit (Bld) [Volume fraction] 43.2 % Normal 39-49 [facility] Comment on above: Performed By: #### C ALLY, PINR, 83303-5, BMP, 38532-8 #### [facility] ([id number]) [address] [place] [address] 26950 #### HA1C #### [facility] ([id number]) [address] [place] [address] Hemoglobin (Bld) [Mass/Vol] 14.2 g/dL Normal 13.0-17.0 [facility] Comment on above: Performed By: #### C BCA, PINR, 09705-5, BMP, 23692-8 #### [facility] ([id number]) [address] [place] [address] 70436 #### HA1C #### [facility] ([id number]) [address] [place] [address] Lymphocytes (Bld) [#/Vol] 2.1 10*3/uL Normal 1.0-3.5 [facility] Comment on above: Performed By: #### C BCA, PINR, 06502-6, BMP, 21190-5 #### [facility] ([id number]) [address] [place] [address] 41409 #### HA1C #### [facility] ([id number]) [address] [facility], [address] [place] [address] Lymphocytes/100 WBC (Bld) 28.3 % Normal [facility] Comment on above: Performed By: #### C ALLY, PINR, 11735-7, BMP, 45619-1 #### [facility] ([id number]) [address] [place] [address] 95048 #### HA1C #### [facility] ([id number]) [address] [place] [address], [address] [place] [address]6459 MCH (RBC) [Entitic mass] 29.1 pg Normal 27-34 [facility] Comment on above: Performed By: #### C ALLY, PINR, 58341-6, BMP, 36519-5 #### [facility] ([id number]) [address] [place] [address] 31023 #### HA1C #### [facility] ([id number]) [address] [place] [address], [address] [address] MCHC (RBC) [Mass/Vol] 32.8 g/dL Normal 32-36 [facility] Comment on above: Performed By: #### C ALLY, PINR, 81467-2, BMP, 32883-1 #### [facility] ([id number]) [address] [place] [address] 92825 #### HA1C #### [facility] ([id number]) [address] [place] [address], [address] [place] [address] MCV (RBC) [Entitic vol] 89 fL Normal 80-100 [facility] Comment on above: Performed By: #### C BCA, PINR, 16881-2, BMP, 18717-5 #### [facility] ([id number]) [address] [place] [address] 03086 #### HA1C #### [facility] ([id number]) [address], [address] [place] [address] Monocytes (Bld) [#/Vol] 0.5 10*3/uL Normal 0-0.9 [facility] Comment on above: Performed By: #### C BCA, PINR, 20393-2, BMP, 04117-9 #### [facility] ([id number]) [address] [place] [address] 24559 #### HA1C #### [facility] ([id number]) [address] [facility] [place] [address] Monocytes/100 WBC (Bld) 6.7 % Normal [facility] Comment on above: Performed By: #### C BCA, PINR, 79389-3, BMP, 00910-7 #### [facility] ([id number]) [address] [place] [address] 29109 #### HA1C #### [facility] ([id number]) [address] [facility], [address] [place] [address] Neutrophils/100 WBC (Bld) 61.8 % Normal [facility] Comment on above: Performed By: #### C BCA, PINR, 89869-2, BMP, 23961-8 #### [facility] ([id number]) [address] [place] [address] 33624 #### HA1C #### [facility] ([id number]) [address], [address] [place] [address] Platelet mean volume (Bld) [Entitic vol] 8.2 fL Normal 7-12 [facility] Comment on above: Performed By: #### C BCA, PINR, 14568-0, BMP, 64717-9 #### [facility] ([id number]) [address] [place] [address] 57950 #### HA1C #### [facility] ([id number]) [address], [address] [place] [address] Platelets (Bld) [#/Vol] 150 10*3/uL Normal 150-450 [facility] Comment on above: Performed By: #### C BCA, PINR, 38811-0, BMP, 75977-0 #### [facility] ([id number]) [address] [place] [address] 99239 #### HA1C #### [facility] ([id number]) [address] [facility], [address] [place] [address] RBC COUNT 4.88 X10E12/L Normal 4.10-5.70 [facility] Comment on above: Performed By: #### C BCA, PINR, 80613-9, BMP, 73953-7 #### [facility] ([id number]) [address] [place] [address] 32316 #### HA1C #### [facility] ([id number]) [address] [facility], [address] [place] [address] WBC (Bld) [#/Vol] 7.3 10*3/uL Normal 4.0-11.0 [facility] Comment on above: Performed By: #### C BCA, PINR, 59583-2, BMP, 62390-4 #### [facility] ([id number]) [address] [place] [address] 56965 #### HA1C #### [facility] ([id number]) [address] [facility], [address] [place] [address] COMPREHENSIVE METABOLIC PANE Reji 09-14-2024 Albumin [Mass/Vol] 3.8 g/dL Normal 3.2-5.3 [facility] Comment on above: Performed By: #### C BCA, PINR, 48049-4, BMP, 52378-4 #### [facility] ([id number]) [address] [place] [address] 29200 #### HA1C #### [facility] ([id number]) [address], [address] [place] [address] ALP [Catalytic activity/Vol] 77 U/L Normal 39-130 [facility] Comment on above: Performed By: #### C BCA, PINR, 53818-5, BMP, 00187-5 #### [facility] ([id number]) [address] [place] [address] 77321 #### HA1C #### [facility] ([id number]) [address], [address] [place] [address] ALT [Catalytic activity/Vol] 37 U/L Normal 0-40 [facility] Comment on above: Performed By: #### C BCA, PINR, 39500-6, BMP, 66473-0 #### [facility] ([id number]) [address] [place] [address] 78547 #### HA1C #### [facility] ([id number]) [address], [address] [place] [address] Anion gap [Moles/Vol] 6 mmol/L Normal 5-15 [facility] Comment on above: Performed By: #### C BCA, PINR, 25864-9, BMP, 20938-0 #### [facility] ([id number]) [address] [place] [address] 81195 #### HA1C #### [facility] ([id number]) [address], [address] [place] [address] AST [Catalytic activity/Vol] 30 U/L Normal 0-41 [facility] Comment on above: Performed By: #### C BCA, PINR, 24618-7, BMP, 93214-8 #### [facility] ([id number]) [address] [place] [address] 55317 #### HA1C #### [facility] ([id number]) [address], [address] [place] [address] Bilirubin [Mass/Vol] 1.0 mg/dL Normal 0.3-1.2 [facility] Comment on above: Performed By: #### C BCA, PINR, 44631-1, BMP, 56193-7 #### [facility] ([id number]) [address] [place] [address] 45438 #### HA1C #### [facility] ([id number]) [address], [address] [place] [address] Calcium [Mass/Vol] 8.6 mg/dL Normal 8.5-10.5 [facility] Comment on above: Performed By: #### C BCA, PINR, 95132-0, BMP, 05961-6 #### [facility] ([id number]) [address] [place] [address] 72857 #### HA1C #### [facility] ([id number]) [address] [place] [address] Chloride [Moles/Vol] 108 mmol/L Normal 98-109 [facility] Comment on above: Performed By: #### C BCA, PINR, 97850-2, BMP, 81861-1 #### [facility] ([id number]) [address] [place] [address] 34116 #### HA1C #### [facility] ([id number]) [address], [address] [place] [address] CO2 [Moles/Vol] 22 mmol/L Normal 22-32 [facility] Comment on above: Performed By: #### C BCA, PINR, 06912-8, BMP, 31126-2 #### [facility] ([id number]) [address] [place] [address] 33066 #### HA1C #### [facility] ([id number]) [address] [facility], [address] [place] [address] Creatinine [Mass/Vol] 1.82 mg/dL High 0.70-1.20 [facility] Comment on above: Result Comment: METH OD TRACEABLE TO IDMS STANDARD Performed By: #### C BCA, PINR, 24119-8, BMP, 86975-4 #### [facility] ([id number]) [address] [place] [address] 55612 #### HA1C #### [facility] ([id number]) [address] [facility], [address] [place] [address] GFR/1.73 sq M.predicted among non-blacks MDRD (S/P/Bld) [Vol rate/Area] 38 mL/min/{1.73_m2} Low >59 [facility] Comment on above: Result Comment: Reported eGFR is based on the CKD-EPI 1 equation that does not use a race coefficient. Performed By: #### C BCA, PINR, 73216-3, BMP, 50183-4 #### [facility] ([id number]) [address] [place] [address] 40180 #### HA1C #### [facility] ([id number]) [address] [facility], [address] [place] [address] Glucose [Mass/Vol] 99 mg/dL Normal 65-99 [facility] Comment on above: Performed By: #### C BCA, PINR, 36899-5, BMP, 48632-5 #### [facility] ([id number]) [address] [place] [address] 88663 #### HA1C #### [facility] ([id number]) [address] [facility], [address] [place] [address] Potassium [Moles/Vol] 4.3 mmol/L Normal 3.5-5.0 [facility] Comment on above: Performed By: #### C BCA, PINR, 38284-4, BMP, 87011-4 #### [facility] ([id number]) [address] [place] [address] 77650 #### HA1C #### [facility] ([id number]) [facility] [facility], [address] [place] [address] Protein [Mass/Vol] 6.8 g/dL Normal 6.0-8.0 [facility] Comment on above: Performed By: #### C BCA, PINR, 15994-6, BMP, 55491-3 #### [facility] ([id number]) [address] [place] [address] 48331 #### HA1C #### [facility] ([id number]) [facility] [facility], [address] [place] [address] Sodium [Moles/Vol] 136 mmol/L Normal 134-146 [facility] Comment on above: Performed By: #### C BCA, PINR, 34814-7, BMP, 86209-7 #### [facility] ([id number]) [address] [place] [address] 27080 #### HA1C #### [facility] ([id number]) [address] [facility] [place] [address] Urea nitrogen [Mass/Vol] 29 mg/dL High 5-27 [facility] Comment on above: Performed By: #### C BCA, PINR, 66599-7, BMP, 40472-5 #### [facility] ([id number]) [address] [place] [address] #### HA1C #### [facility] ([id number]) [address] [facility], [address] [place] [address] Glucose Glucometer (BldC) [M ass/Vol]on 09-14-2024 Glucose [Mass/Vol] 101 mg/dL High 65-99 [facility] MAGNESIUMon 09-14-2024 Magnesium [Mass/Vol] 2.0 mg/dL Normal 1.8-2.6 [facility] Comment on above: Performed By: #### C BCA, PINR, 60951-8, BMP, 84108-5 #### [facility] ([id number]) [address] [place] [address] 64745 #### HA1C #### [facility] ([id number]) [address] [facility], [address] [place] [address] SARS/FLU A+B/RSV by NAAT/Mol ecularon 09-14-2024 SARS/FLU [...] operators who are performing tests using either [employer] or [employer] systems and is limited to laboratories that [...] repeat. Fact Sheet for Healthcare Providers: https://www.fda.gov/m edia/463728/download Fact Sheet for Patients: https://www.fda.gov/m edia/527281/download Normal [facility] Comment on above: Performed By: #### C ALLY PINR, 21909-7, [facility], 26309-7 #### [facility] ([id number]) [address] [place] [address] 08940 #### HA1C #### [facility] ([id number]) [address] [facility], [address] [place] [address] Troponin I.cardiac High sens itivity method [Mass/Vol]on 09-14-2024 1 HOUR TROP I, HIGH SENSITIVITY 4 ng/L Normal <21 [facility] Comment on above: Performed By: #### C BCA, PINR, 99791-0, [facility], 35823-9 #### [facility] ([id number]) [address] [place] [address] 74493 #### HA1C #### [facility] ([id number]) [address] [facility], [address] [place] [address] TROPONIN I, HIGH SENSITIVITY 5 ng/L Normal <21 [facility] Comment on above: Performed By: #### C BCA, PINR, 93441-9, BMP, 31327-6 #### [facility] ([id number]) [address] [facility], [place] [address] #### HA1C #### [facility] ([id number]) [address] [facility] [place] [address] MR LUMBAR SPINE WO CONTRASTo n 08-23-2024 [...] 08-12-20 ABSOLUTE BASOPHIL 0.0 X10E9/L Normal 0.0-0.2 [facility] Comment on above: Performed By: #### C BCA, PINR, 79806-4, BMP, 26708-8 #### [facility] ([id number]) [address] [place] [address] 01145 #### HA1C #### [facility] ([id number]) [address] [facility], [address] [place] [address] ABSOLUTE NEUTROPHIL 5.7 X10E9/L Normal 1.5-6.6 [facility] Comment on above: Performed By: #### C BCA, PINR, 19207-1, BMP, 07709-8 #### [facility] ([id number]) [address] [place] [address] #### HA1C #### [facility] ([id number]) [address], [address] [place] [address] Basophils/100 WBC (Bld) 0.4 % Normal [facility] Comment on above: Performed By: #### C BCA, PINR, 31304-2, BMP, 49491-8 #### [facility] ([id number]) [address] [place] [address] #### HA1C #### [facility] ([id number]) [address], [address] [place] [address] Eosinophils (Bld) [#/Vol] 0.2 10*3/uL Normal 0.0-0.4 [facility] Comment on above: Performed By: #### C BCA, PINR, 17054-0, BMP, 98024-0 #### [facility] ([id number]) [address] [place] [address] #### HA1C #### [facility] ([id number]) [address], [address] [place] [address] Eosinophils/100 WBC (Bld) 2.1 % Normal [facility] Comment on above: Performed By: #### C BCA, PINR, 09347-1, BMP, 12986-6 #### [facility] ([id number]) [address] [place] [address] #### HA1C #### [facility] ([id number]) [address] [address], [address] [place] [address] Erythrocyte distribution width (RBC) [Ratio] 14.6 % Normal 11.5-15.0 [facility] Comment on above: Performed By: #### C BCA, PINR, 45009-1, BMP, 39790-7 #### [facility] ([id number]) [address] [place] [address] #### HA1C #### [facility] ([id number]) [address], [address] [place] [address] Hematocrit (Bld) [Volume fraction] 40.5 % Normal 39-49 [facility] Comment on above: Performed By: #### C BCA, PINR, 38778-7, BMP, 89467-7 #### [facility] ([id number]) [address] [place] [address] #### HA1C #### [facility] ([id number]) [address], [address] [place] [place] [address] Hemoglobin (Bld) [Mass/Vol] 13.5 g/dL Normal 13.0-17.0 [facility] Comment on above: Performed By: #### C BCA, PINR, 18257-4, BMP, 60749-4 #### [facility] ([id number]) [address] [place] [address] 64638 #### HA1C #### [facility] ([id number]) [address], [address] [place] [address] Lymphocytes (Bld) [#/Vol] 1.9 10*3/uL Normal 1.0-3.5 [facility] Comment on above: Performed By: #### C ALLY, PINR, 20309-5, BMP, 87658-0 #### [facility] ([id number]) [address] [place] [address] 62631 #### HA1C #### [facility] ([id number]) [address] [facility] [place] [address] Lymphocytes/100 WBC (Bld) 22.0 % Normal [facility] Comment on above: Performed By: #### C ALLY, PINR, 45028-1, BMP, 58450-8 #### [facility] ([id number]) [address] [place] [address] 31888 #### HA1C #### [facility] ([id number]) [address] [facility], [address] [place] [address] MCH (RBC) [Entitic mass] 29.8 pg Normal 27-34 [facility] Comment on above: Performed By: #### C BCA, PINR, 64220-9, BMP, 06233-7 #### [facility] ([id number]) [address] [place] [address] 78424 #### HA1C #### [facility] ([id number]) [address], [address] [place] [address] MCHC (RBC) [Mass/Vol] 33.5 g/dL Normal 32-36 [facility] Comment on above: Performed By: #### C ALLY, PINR, 55033-8, BMP, 94514-7 #### [facility] ([id number]) [address] [place] [address] 96422 #### HA1C #### [facility] ([id number]) [address] [facility] [place] [address] MCV (RBC) [Entitic vol] 89 fL Normal 80-100 [facility] Comment on above: Performed By: #### C ALLY PINR, 36070-1, BMP, 16239-3 #### [facility] ([id number]) [address] [place] [address] 06850 #### HA1C #### [facility] ([id number]) [address] [facility] [facility] [address] [place] [address] Monocytes (Bld) [#/Vol] 0.8 10*3/uL Normal 0-0.9 [facility] Comment on above: Performed By: #### C ALLY, PINR, 06082-1, BMP, 88482-3 #### [facility] ([id number]) [address] [place] [address] 27728 #### HA1C #### [facility] ([id number]) [address] [facility] [place] [address] Monocytes/100 WBC (Bld) 9.4 % Normal [facility] Comment on above: Performed By: #### C ALLY, PINR, 71694-8, BMP, 51697-8 #### [facility] ([id number]) [address] [place] [address] 78348 #### HA1C #### [facility] ([id number]) [address] [facility], [address] [place] [address] Neutrophils/100 WBC (Bld) 66.1 % Normal [facility] Comment on above: Performed By: #### C ANUP CANALESR, 54268-4, BMP, 39243-6 #### [facility] ([id number]) [address] [place] [address] 75281 #### HA1C #### [facility] ([id number]) [address] [facility], [address] [place] [address] Platelet mean volume (Bld) [Entitic vol] 8.0 fL Normal 7-12 [facility] Comment on above: Performed By: #### C ALLY PINR, 79441-8, BMP, 62388-8 #### [facility] ([id number]) [address] [place] [address] 70235 #### HA1C #### [facility] ([id number]) [address] [facility], [address] [place] [address] Platelets (Bld) [#/Vol] 158 10*3/uL Normal 150-450 [facility] Comment on above: Performed By: #### C ALLY PINR, 35605-5, BMP, 84747-3 #### [facility] ([id number]) [address] [place] [address] 87030 #### HA1C #### [facility] ([id number]) [address] [facility] [place] [address] RBC COUNT 4.55 X10E12/L Normal 4.10-5.70 [facility] Comment on above: Performed By: #### C ALLY, PINR, 09626-6, BMP, 02369-8 #### [facility] ([id number]) [address] [place] [address] 58609 #### HA1C #### [facility] ([id number]) [address] [place] [address] WBC (Bld) [#/Vol] 8.7 10*3/uL Normal 4.0-11.0 [facility] Comment on above: Performed By: #### C BCA, PINR, 33697-9, BMP, 54591-6 #### [facility] ([id number]) [address] [place] [address] 37420 #### HA1C #### [facility] ([id number]) [address] [facility], [address] [place] [address] CBC AND AUTO DIFFon 08-11-20 24 ABSOLUTE BASOPHIL 0.0 X10E9/L Normal 0.0-0.2 [facility] Comment on above: Performed By: #### C BCA, PINR, 06279-2, BMP, 45457-5 #### [facility] ([id number]) [address] [place] [address] 07978 #### HA1C #### [facility] ([id number]) [address] [facility], [address] [place] [address] ABSOLUTE NEUTROPHIL 7.5 X10E9/L High 1.5-6.6 [facility] Comment on above: Performed By: #### C BCA, PINR, 94698-6, BMP, 37516-0 #### [facility] ([id number]) [address] [place] [address] 37076 #### HA1C #### [facility] ([id number]) [address] [facility], [address] [place] [address] Basophils/100 WBC (Bld) 0.3 % Normal [facility] Comment on above: Performed By: #### C BCA, PINR, 24458-3, BMP, 60312-6 #### [facility] ([id number]) [address] [place] [address] 40111 #### HA1C #### [facility] ([id number]) [address] [facility], [address] [place] [address] Eosinophils (Bld) [#/Vol] 0.2 10*3/uL Normal 0.0-0.4 [facility] Comment on above: Performed By: #### C ALLY, PINR, 68634-3, BMP, 77490-9 #### [facility] ([id number]) [address] [place] [address] 19346 #### HA1C #### [facility] ([id number]) [address] [place] [address] Eosinophils/100 WBC (Bld) 1.5 % Normal [facility] Comment on above: Performed By: #### C ALLY, PINR, 95912-4, BMP, 56597-7 #### [facility] ([id number]) [address] [place] [address] 97133 #### HA1C #### [facility] ([id number]) [address] [place] [address] Erythrocyte distribution width (RBC) [Ratio] 14.7 % Normal 11.5-15.0 [facility] Comment on above: Performed By: #### C ALLY, PINR, 34421-3, BMP, 46326-6 #### [facility] ([id number]) [address] [place] [address] 02722 #### HA1C #### [facility] ([id number]) [address] [place] [address]35[address] Hematocrit (Bld) [Volume fraction] 41.8 % Normal 39-49 [facility] Comment on above: Performed By: #### C BCA, PINR, 19851-0, BMP, 59065-4 #### [facility] ([id number]) [address] [place] [address] 21575 #### HA1C #### [facility] ([id number]) [address], [address] [place] [address] Hemoglobin (Bld) [Mass/Vol] 13.9 g/dL Normal 13.0-17.0 [facility] Comment on above: Performed By: #### C BCA, PINR, 79262-0, BMP, 66815-8 #### [facility] ([id number]) [address] [place] [address] 45049 #### HA1C #### [facility] ([id number]) [address], [address] [place] [address] Lymphocytes (Bld) [#/Vol] 1.5 10*3/uL Normal 1.0-3.5 [facility] Comment on above: Performed By: #### C BCA, PINR, 62440-7, BMP, 05450-9 #### [facility] ([id number]) [address] [place] [address] 56832 #### HA1C #### [facility] ([id number]) [address] [place] [address] Lymphocytes/100 WBC (Bld) 14.7 % Normal [facility] Comment on above: Performed By: #### C BCA, PINR, 86919-4, BMP, 44316-8 #### [facility] ([id number]) [address] [place] [address] 94546 #### HA1C #### [facility] ([id number]) [address] [place] [address] MCH (RBC) [Entitic mass] 29.5 pg Normal 27-34 [facility] Comment on above: Performed By: #### C BCA, PINR, 18718-7, BMP, 56440-7 #### [facility] ([id number]) [address] [place] [address] 43489 #### HA1C #### [facility] ([id number]) [address] [place] [address] MCHC (RBC) [Mass/Vol] 33.2 g/dL Normal 32-36 [facility] Comment on above: Performed By: #### C BCA, PINR, 19894-5, BMP, 22924-3 #### [facility] ([id number]) [address] [place] [address] 85991 #### HA1C #### [facility] ([id number]) [address] [facility] [place] [address] MCV (RBC) [Entitic vol] 89 fL Normal 80-100 [facility] Comment on above: Performed By: #### C BCA, PINR, 88099-4, BMP, 35192-1 #### [facility] ([id number]) [address] [place] [address] 97169 #### HA1C #### [facility] ([id number]) [address] [place] [address] Monocytes (Bld) [#/Vol] 0.9 10*3/uL Normal 0-0.9 [facility] Comment on above: Performed By: #### C BCA, PINR, 92162-0, BMP, 48419-3 #### [facility] ([id number]) [address] [place] [address] 27887 #### HA1C #### [facility] ([id number]) [address] [place] [address] Monocytes/100 WBC (Bld) 9.2 % Normal [facility] Comment on above: Performed By: #### C BCA, PINR, 74620-9, BMP, 22701-8 #### [facility] ([id number]) [address] [place] [address] 63358 #### HA1C #### [facility] ([id number]) [address] [place] [address] Neutrophils/100 WBC (Bld) 74.3 % Normal [facility] Comment on above: Performed By: #### C ALLY, PINR, 26774-5, BMP, 25653-3 #### [facility] ([id number]) [address] [place] [address] 44117 #### HA1C #### [facility] ([id number]) [address] [place] [address] Platelet mean volume (Bld) [Entitic vol] 7.8 fL Normal 7-12 [facility] Comment on above: Performed By: #### C ALLY, PINR, 77062-8, BMP, 47843-9 #### [facility] ([id number]) [address] [place] [address] 81940 #### HA1C #### [facility] ([id number]) [address] [place] [address] Platelets (Bld) [#/Vol] 154 10*3/uL Normal 150-450 [facility] Comment on above: Performed By: #### C BCA, PINR, 16796-7, BMP, 86858-7 #### [facility] ([id number]) [address] [place] [address] 99618 #### HA1C #### [facility] ([id number]) [address] [place] [address] RBC COUNT 4.70 X10E12/L Normal 4.10-5.70 [facility] Comment on above: Performed By: #### C BCA, PINR, 09733-8, BMP, 69855-2 #### [facility] ([id number]) [address] [place] [address] 41129 #### HA1C #### [facility] ([id number]) [address] [place] [address] WBC (Bld) [#/Vol] 10.1 10*3/uL Normal 4.0-11.0 [facility] Comment on above: Performed By: #### C BCA, PINR, 23048-8, BMP, 48696-1 #### [facility] ([id number]) [address] [place] [address] 79468 #### HA1C #### [facility] ([id number]) [address] [facility] [place] [address] Folate [Mass/Vol]on 08-11-20 FOLIC ACID 9.5 ng/mL Normal >5.8 [facility] Comment on above: Result Comment: NEW REFERENCE RANGE Performed By: #### C BCA, PINR, 42547-6, BMP, 03556-8 #### [facility] ([id number]) [address] [place] [address] 67673 #### HA1C #### [facility] ([id number]) [address] [facility], [address] [place] [address] Heavy metals panel (Bld)on 10-11-2023 Arsenic, B <1 Normal <13 [facility] Comment on above: Result Comment: NOTE ADDITIONAL INFORMATION This test was developed and its performance characteristics determined by [facility] in a manner consistent with CLIA requirements. This test has not been cleared or approved by the U.S. Food and Drug Administration. Performed By: #### C BCA, PINR, 84918-5, BMP, 70717-9 #### [facility] ([id number]) [address] [place] [address] 91247 #### HA1C #### [facility] ([id number]) [address] [place] [address] Cadmium, B 0.6 ng/mL Normal <5.0 [facility] Comment on above: Result Comment: NOTE ADDITIONAL INFORMATION This test was developed and its performance characteristics determined by [facility] in a manner consistent with CLIA requirements. This test has not been cleared or approved by the U.S. Food and Drug Administration. Performed By: ###Namita Castro BCA, PINR, 94638-2, BMP, 23258-8 #### [facility] ([id number]) [address] [place] [address] 36783 #### HA1C #### [facility] ([id number]) [address] [facility] [place] [address] Lead, B 4.5 mcg/dL High <3.5 [facility] Comment on above: Result Comment: NOTE ADDITIONAL INFORMATION Testing performed by Triple Quadrupole Inductively Coupled Plasma-Mass Spectrometry (ICP-MS/MS). This test was developed and its performance characteristics determined by [facility] in a manner consistent with CLIA requirements. This test has not been cleared or approved by the U.S. Food and Drug Administration. Performed By: ###Namita Castro BCA, PINR, 09288-4, BMP, 06269-9 #### [facility] ([id number]) [address] [place] [address] 63132 #### HA1C #### [facility] ([id number]) [address] [place] [address] Mercury, B <1 Normal <10 [facility] Comment on above: Result Comment: NOTE ADDITIONAL INFORMATION This test was developed and its performance characteristics determined by [facility] in a manner consistent with CLIA requirements. This test has not been cleared or approved by the U.S. Food and Drug Administration. Performed By: #### C BCA, PINR, 87685-6, BMP, 98491-5 #### [facility] ([id number]) [address] [place] [address] 97815 #### HA1C #### [facility] ([id number]) [address] [place] [address] Venous/Capillary Venous Normal [facility] Comment on above: Performed By: #### C BCA, PINR, 96690-3, BMP, 48025-6 #### [facility] ([id number]) [address] [place] [address] 63055 #### HA1C #### [facility] ([id number]) [address] [place] [address] Lipid 1996 panelon 4 Cholesterol [Mass/Vol] 112 mg/dL Low 150-200 [facility] Comment on above: Performed By: #### C BCA, PINR, 99640-3, BMP, 22384-4 #### [facility] ([id number]) [address] [place] [address] 62538 #### HA1C #### [facility] ([id number]) [address] [place] [address] Cholesterol in HDL [Mass/Vol] 46 mg/dL Normal >39 [facility] Comment on above: Result Comment: HDL <40 mg/dL - High Risk HDL > or = 40mg/dL- Desirable HDL >60 mg/dL - Negative Risk Performed By: #### C BCA, PINR, 06997-3, BMP, 53247-8 #### [facility] ([id number]) [address] [place] [address] 29755 #### HA1C #### [facility] ([id number]) [address] [place] [address] Cholesterol in LDL [Mass/Vol] 51 mg/dL Normal <130 [facility] Comment on above: Result Comment: LDL <100 mg/dL - Desirable LDL >160 mg/dL - High Risk Performed By: #### C BCA, PINR, 46189-5, BMP, 89354-7 #### [facility] ([id number]) [address] [place] [address] 80729 #### HA1C #### [facility] ([id number]) [address] [place] [address] Cholesterol in VLDL [Mass/Vol] 15 mg/dL Normal 0-30 [facility] Comment on above: Performed By: #### C BCA, PINR, 87691-5, BMP, 38844-8 #### [facility] ([id number]) [address] [place] [address] 94562 #### HA1C #### [facility] ([id number]) [address] [place] [address] CHOLESTEROL:HDL 2.4 Normal 1.0-5.0 [facility] Comment on above: Performed By: #### C BCA, PINR, 08330-1, BMP, 82879-3 #### [facility] ([id number]) [address] [place] [address] 72483 #### HA1C #### [facility] ([id number]) [address] [place] [address] Triglyceride [Mass/Vol] 74 mg/dL Normal 27-150 [facility] Comment on above: Performed By: #### C BCA, PINR, 07131-5, BMP, 93588-2 #### [facility] ([id number]) [address] [place] [address] 59977 #### HA1C #### [facility] ([id number]) [address] [place] [address] MR BRAIN WO CONTon 4 MR BRAIN [...] Hurst MD on 08/11/2024 10:04 AM Normal [facility] SERUM PROTEIN ELECTROPHORESI Son 08-11-2024 Albumin [Mass/Vol] 3.7 g/dL Normal 3.4-5.3 [facility] Comment on above: Performed By: #### C BCA, PINR, 74455-3, BMP, 47491-7 #### [facility] ([id number]) [address] [place] [address] 03521 #### HA1C #### [facility] ([id number]) [address] [facility] [place] [address] ALPHA 1 GLOBULIN 0.3 g/dL Normal 0.1-0.4 [facility] Comment on above: Performed By: #### C BCA, PINR, 72080-6, BMP, 47347-3 #### [facility] ([id number]) [address] [place] [address] 79717 #### HA1C #### [facility] ([id number]) [address] [facility] [place] [address] ALPHA 2 GLOBULIN 0.8 g/dL Normal 0.4-1.1 [facility] Comment on above: Performed By: #### C BCA, PINR, 68715-9, BMP, 27570-7 #### [facility] ([id number]) [address] [place] [address] 21879 #### HA1C #### [facility] ([id number]) [address] [facility] [place] [address] BETA GLOBULIN 0.9 g/dL Normal 0.5-1.2 [facility] Comment on above: Performed By: #### C BCA, PINR, 28894-2, BMP, 10596-5 #### [facility] ([id number]) [address] [place] [address] 89326 #### HA1C #### [facility] ([id number]) [address] [facility] [place] [address] GAMMA GLOBULIN 0.8 g/dL Normal 0.5-1.6 [facility] Comment on above: Performed By: #### C BCA, PINR, 08834-2, BMP, 45334-3 #### [facility] ([id number]) [address] [place] [address] 56129 #### HA1C #### [facility] ([id number]) [address] [facility] [place] [address] PROT. ELECTROPHORESIS INTERP Unremarkable protein distribution, no monoclonal bands. Normal [facility] Comment on above: Performed By: #### C BCA, PINR, 95227-6, BMP, 74935-6 #### [facility] ([id number]) [address] [place] [address] 59413 #### HA1C #### [facility] ([id number]) [address] [facility] [place] [address] Protein [Mass/Vol] 6.5 g/dL Normal 6.0-8.0 [facility] Comment on above: Performed By: #### C BCA, PINR, 05248-3, BMP, 90873-9 #### [facility] ([id number]) [address] [place] [address] 51309 #### HA1C #### [facility] ([id number]) [address] [facility] [place] [address] Troponin I.cardiac High sens itivity method [Mass/Vol]on 08-11-2024 1 HOUR TROP I, HIGH SENSITIVITY 5 ng/L Normal <21 [facility] Comment on above: Performed By: #### C BCA, PINR, 54753-8, BMP, 00364-7 #### [facility] ([id number]) [address] [place] [address] 27711 #### HA1C #### [facility] ([id number]) [address] [place] [address] TROPONIN I, HIGH SENSITIVITY 5 ng/L Normal <21 [facility] Comment on above: Performed By: #### C BCA, PINR, 23287-1, BMP, 43486-5 #### [facility] ([id number]) [address] [place] [address] 31897 #### HA1C #### [facility] ([id number]) [address], [address] [place] [address] VITAMIN B12on 08-11-2024 Cobalamin (Vitamin B12) [Mass/Vol] 202 pg/mL Normal 180-914 [facility] Comment on above: Performed By: #### C BCA, PINR, 69808-8, BMP, 38037-8 #### [facility] ([id number]) [address] [place] [address] #### HA1C #### [facility] ([id number]) [address], [address] [place] [address] BASIC METABOLIC PANLon 08-10 Anion gap [Moles/Vol] 9 mmol/L Normal 5-15 [facility] Comment on above: Performed By: #### C BCA, PINR, 94334-6, BMP, 63777-6 #### [facility] ([id number]) [address] [place] [address] #### HA1C #### [facility] ([id number]) [address], [address] [place] [address] Calcium [Mass/Vol] 8.4 mg/dL Low 8.5-10.5 [facility] Comment on above: Performed By: #### C BCA, PINR, 35987-3, BMP, 50234-7 #### [facility] ([id number]) [address] [place] [address] #### HA1C #### [facility] ([id number]) [address], [address] [place] [address] Chloride [Moles/Vol] 104 mmol/L Normal 98-109 [facility] Comment on above: Performed By: #### C BCA, PINR, 30395-7, BMP, 42848-7 #### [facility] ([id number]) [address] [place] [address] #### HA1C #### [facility] ([id number]) [address] [place] [address] CO2 [Moles/Vol] 24 mmol/L Normal 22-32 [facility] Comment on above: Performed By: #### C BCA, PINR, 94357-3, BMP, 72014-4 #### [facility] ([id number]) [address] [place] [address] #### HA1C #### [facility] ([id number]) [address] [place] [address] Creatinine [Mass/Vol] 1.40 mg/dL High 0.70-1.20 [facility] Comment on above: Result Comment: METH OD TRACEABLE TO IDMS STANDARD Performed By: #### C BCA, PINR, 04885-5, BMP, 47690-8 #### [facility] ([id number]) [address] [place] [address] 41383 #### HA1C #### [facility] ([id number]) [address] [facility], [address] [place] [address] GFR/1.73 sq M.predicted among non-blacks MDRD (S/P/Bld) [Vol rate/Area] 52 mL/min/{1.73_m2} Low >59 [facility] Comment on above: Result Comment: Reported eGFR is based on the CKD-EPI 2020 equation that does not use a race coefficient. Performed By: #### C BCA, PINR, 51392-3, BMP, 39529-1 #### [facility] ([id number]) [address] [place] [address] 25924 #### HA1C #### [facility] ([id number]) [address] [place] [address], [address] [place] [address] Glucose [Mass/Vol] 103 mg/dL High 65-99 [facility] Comment on above: Performed By: #### C ALLY, PINR, 20523-2, BMP, 08986-9 #### [facility] ([id number]) [address] [place] [address] 80223 #### HA1C #### [facility] ([id number]) [address] [place] [address], [address] [place] [address] Potassium [Moles/Vol] 4.3 mmol/L Normal 3.5-5.0 [facility] Comment on above: Performed By: #### C BCA, PINR, 97213-6, BMP, 25476-8 #### [facility] ([id number]) [address] [place] [address] 67372 #### HA1C #### [facility] ([id number]) [address] [place] [address], [address] [place] [address] Sodium [Moles/Vol] 137 mmol/L Normal 134-146 [facility] Comment on above: Performed By: #### C BCA, PINR, 42369-3, BMP, 31139-8 #### [facility] ([id number]) [address] [place] [address] 66554 #### HA1C #### [facility] ([id number]) [address], [address] [place] [address] Urea nitrogen [Mass/Vol] 19 mg/dL Normal 5-27 [facility] Comment on above: Performed By: #### C BCA, PINR, 61966-6, BMP, 58316-4 #### [facility] ([id number]) [address] [place] [address] 11011 #### HA1C #### [facility] ([id number]) [address] [facility], [address] [place] [address] CBC AND AUTO DIFFon 08-10- 24 ABSOLUTE BASOPHIL 0.1 X10E9/L Normal 0.0-0.2 [facility] Comment on above: Performed By: #### C BCA, PINR, 94458-7, BMP, 74820-9 #### [facility] ([id number]) [address] [place] [address] 50845 #### HA1C #### [facility] ([id number]) [address] [facility], [address] [place] [address] ABSOLUTE NEUTROPHIL 8.2 X10E9/L High 1.5-6.6 [facility] Comment on above: Performed By: #### C BCA, PINR, 72341-8, BMP, 82198-1 #### [facility] ([id number]) [address] [place] [address] 38546 #### HA1C #### [facility] ([id number]) [address], [address] [place] [address] Basophils/100 WBC (Bld) 0.5 % Normal [facility] Comment on above: Performed By: #### C BCA, PINR, 22191-8, BMP, 33805-6 #### [facility] ([id number]) [address] [place] [address] 31853 #### HA1C #### [facility] ([id number]) [address] [facility], [address] [place] [address] Eosinophils (Bld) [#/Vol] 0.1 10*3/uL Normal 0.0-0.4 [facility] Comment on above: Performed By: #### C BCA, PINR, 95369-1, BMP, 17379-8 #### [facility] ([id number]) [address] [place] [address] 13300 #### HA1C #### [facility] ([id number]) [address] [place] [address], [address] [place] [address] Eosinophils/100 WBC (Bld) 1.3 % Normal [facility] Comment on above: Performed By: #### C BCA, PINR, 08221-2, BMP, 74559-5 #### [facility] ([id number]) [address] [place] [address] 40195 #### HA1C #### [facility] ([id number]) [address] [place] [address], [address] [place] [address] Erythrocyte distribution width (RBC) [Ratio] 14.9 % Normal 11.5-15.0 [facility] Comment on above: Performed By: #### C BCA, PINR, 81131-4, BMP, 33388-8 #### [facility] ([id number]) [address] [place] [address] 71295 #### HA1C #### [facility] ([id number]) [address] [place] [address], [address] [place] [address] Hematocrit (Bld) [Volume fraction] 41.2 % Normal 39-49 [facility] Comment on above: Performed By: #### C BCA, PINR, 12285-3, BMP, 01850-8 #### [facility] ([id number]) [address] [place] [address] 97756 #### HA1C #### [facility] ([id number]) [address], [address] [place] [address] Hemoglobin (Bld) [Mass/Vol] 13.8 g/dL Normal 13.0-17.0 [facility] Comment on above: Performed By: #### C BCA, PINR, 42635-3, BMP, 03543-9 #### [facility] ([id number]) [address] [place] [address] 66989 #### HA1C #### [facility] ([id number]) [address], [address] [place] [address] Lymphocytes (Bld) [#/Vol] 1.5 10*3/uL Normal 1.0-3.5 [facility] Comment on above: Performed By: #### C BCA, PINR, 19062-4, BMP, 02138-9 #### [facility] ([id number]) [address] [place] [address] 57253 #### HA1C #### [facility] ([id number]) [address], [address] [place] [address] Lymphocytes/100 WBC (Bld) 14.0 % Normal [facility] Comment on above: Performed By: #### C BCA, PINR, 77805-7, BMP, 66165-7 #### [facility] ([id number]) [address] [place] [address] 54199 #### HA1C #### [facility] ([id number]) [address], [address] [place] [address] MCH (RBC) [Entitic mass] 29.8 pg Normal 27-34 [facility] Comment on above: Performed By: #### C BCA, PINR, 88286-0, BMP, 58371-0 #### [facility] ([id number]) [address] [place] [address] 02077 #### HA1C #### [facility] ([id number]) [address] [facility], [address] [place] [address] MCHC (RBC) [Mass/Vol] 33.6 g/dL Normal 32-36 [facility] Comment on above: Performed By: #### C ALLY, PINR, 11811-3, BMP, 91387-7 #### [facility] ([id number]) [address] [place] [address] 86434 #### HA1C #### [facility] ([id number]) [address] [facility], [address] [place] [address] MCV (RBC) [Entitic vol] 89 fL Normal 80-100 [facility] Comment on above: Performed By: #### C ALLY, PINR, 01865-6, BMP, 50044-6 #### [facility] ([id number]) [address] [place] [address] 75277 #### HA1C #### [facility] ([id number]) [address] [facility], [address] [place] [address] Monocytes (Bld) [#/Vol] 0.9 10*3/uL Normal 0-0.9 [facility] Comment on above: Performed By: #### C BCA, PINR, 57049-0, BMP, 19146-5 #### [facility] ([id number]) [address] [place] [address] 00028 #### HA1C #### [facility] ([id number]) [address] [facility], [address] [place] [address] Monocytes/100 WBC (Bld) 8.0 % Normal [facility] Comment on above: Performed By: #### C BCA, PINR, 79453-7, BMP, 78964-3 #### [facility] ([id number]) [address] [place] [address] 29076 #### HA1C #### [facility] ([id number]) [address], [address] [place] [address] Neutrophils/100 WBC (Bld) 76.2 % Normal [facility] Comment on above: Performed By: #### C ALLY, PINR, 56641-5, BMP, 97084-2 #### [facility] ([id number]) [address] [place] [address] 72094 #### HA1C #### [facility] ([id number]) [address] [facility], [address] [place] [address] Platelet mean volume (Bld) [Entitic vol] 8.1 fL Normal 7-12 [facility] Comment on above: Performed By: #### C ALLY PINR, 86159-6, BMP, 13522-7 #### [facility] ([id number]) [address] [place] [address] 95014 #### HA1C #### [facility] ([id number]) [address], [address] [place] [address] Platelets (Bld) [#/Vol] 150 10*3/uL Normal 150-450 [facility] Comment on above: Performed By: #### C ALLY, PINR, 90695-9, BMP, 45722-3 #### [facility] ([id number]) [address] [place] [address] 12604 #### HA1C #### [facility] ([id number]) [address], [address] [place] [address] RBC COUNT 4.64 X10E12/L Normal 4.10-5.70 [facility] Comment on above: Performed By: #### C ALLY, PINR, 58224-0, BMP, 80931-9 #### [facility] ([id number]) [address] [facility], [place] [address] #### HA1C #### [facility] ([id number]) [address], [address] [place] [address] WBC (Bld) [#/Vol] 10.8 10*3/uL Normal 4.0-11.0 [facility] Comment on above: Performed By: #### C BCA, PINR, 25891-8, BMP, 53042-6 #### [facility] ([id number]) [address] [place] [address] #### HA1C #### [facility] ([id number]) [address], [address] [place] [address] CT BRAIN WO CONT STROKE ALER Ton [...] Porras MD on 08/10/2024 11:23 AM Normal [facility] CT CTA CAROTIDon 08-10-2024 CT CTA [...] Automated exposure control was utilized. The [place] Symptomatic Carotid Endarterectomy Trial (NASCET)calculation of ICA [...] Porras MD on 08/10/2024 11:38 AM Normal [facility] CT CTA HEADon 08-10-2024 CT CTA [...] sinuses. IMPRESSION: * Unremarkable CTA of the [place] of [place]. No high grade arterial stenosis, large vessel occlusion or aneurysm, within confines of venous contamination. * MRI is the most sensitive to assess for ischemic changes if clinically warranted. Finalized by Jesse Kraus on 08/10/2024 11:42 AM Normal [facility] Glucose Glucometer (BldC) [M ass/Vol]on 08-10-2024 Glucose [Mass/Vol] 87 mg/dL Normal 65-99 [facility] HGB A1C (GLYCO-HGB)on 2023 Glucose [Mass/Vol] 105 mg/dL Normal [facility] Comment on above: Performed By: #### C BCA, PINR, 54382-9, BMP, 33457-9 #### [facility] ([id number]) [address] [place] [address], [place] [address] #### HA1C #### [facility] ([id number]) [address] [place] [address], [address] [place] [address] HbA1c (Bld) [Mass fraction] 5.3 % Normal 4.4-5.6 [facility] Comment on above: Result Comment: NOTE ADA Guidelines Result HgbA1c Normal : less than 5.7 % Prediabetes : 5.7 % to 6.4 % Diabetes : > 6.4 % Use with caution in patients with abnormal hemoglobin variants as the half-life of red blood cells and in vivo glycation rates are affected. Performed By: #### C BCA, PINR, 82139-5, BMP, 28447-7 #### [facility] ([id number]) [address] [place] [address] 94364 #### HA1C #### [facility] ([id number]) [address] [facility], [address] [place] [address] PROTIME AND INRon 08-10-2024 INR Coag (PPP) [Relative time] 1.1 {INR} Normal 0.8-1.1 [facility] Comment on above: Performed By: #### C BCA, PINR, 68435-1, BMP, 28955-2 #### [facility] ([id number]) [address] [place] [address] 63760 #### HA1C #### [facility] ([id number]) [address] [facility], [address] [place] [address] PT Coag (PPP) [Time] 12.6 s Normal 9.8-13.2 [facility] Comment on above: Result Comment: NEW REFERENCE RANGE Performed By: #### C BCA, PINR, 25013-5, BMP, 30179-7 #### [facility] ([id number]) [address] [place] [address] 33025 #### HA1C #### [facility] ([id number]) [address] [facility], [address] [place] [address] Troponin I.cardiac High sens itivity method [Mass/Vol]on 08-10-2024 1 HOUR TROP I, HIGH SENSITIVITY 4 ng/L Normal <21 [facility] Comment on above: Performed By: #### C BCA, PINR, 25626-2, BMP, 64017-9 #### [facility] ([id number]) [address] [place] [address] #### HA1C #### [facility] ([id number]) [address] [place] [address], [address] [place] [address] TROPONIN I, HIGH SENSITIVITY 4 ng/L Normal <21 [facility] Comment on above: Performed By: #### C BCA, PINR, 55073-0, BMP, 72995-7 #### [facility] ([id number]) [address] [place] [address] 84488 #### HA1C #### [facility] ([id number]) [address] [place] [address], [address] [place] [address] XR CHEST 1 VIEW STROKEon XR CHEST [...] Porras MD on 08/10/2024 12:31 PM Normal [facility] aPTT Coag (PPP) [Time]on aPTT Coag (Bld) [Time] 32 s Normal 26-37 [facility] Comment on above: Result Comment: NEW REFERENCE RANGE Performed By: #### C BCA, PINR, 06585-7, BMP, 06542-8 #### [facility] ([id number]) [address] [place] [address] 34132 #### HA1C #### [facility] ([id number]) [address] [place] [address], [address] [place] [address] BLOOD CULTURE 1on 06-26-2024 BLOOD CULTURE 1 Blood Culture 1 NG5D NO GROWTH AT 5 DAYS.^NO GROWTH AT 5 DAYS. [facility] BLOOD CULTURE 2on 06-26-2024 BLOOD CULTURE 2 Blood Culture 2 NG5D NO GROWTH AT 5 DAYS.^NO GROWTH AT 5 DAYS. [facility] No Panel Informationon 06-26 [facility] Healthcar e XR Foot Complete Left*on XR Foot Complete Left* FINDINGS: Mild hallux valgus. Mild 1st MTP, interphalangeal joint space loss. Small plantar calcaneal spur. Posterior calcaneal sclerosis can be consistent with stress fracture if clinically suspect. IMPRESSION: 1. Posterior calcaneal findings can be consistent with stress fracture if clinically suspect. Report reported and signed by Vu Moore on 05/13/2022 1312 Normal [facility] C-Reactive Proteinon 022 CRP IV 0.8 mg/dl Normal <5.0 [facility] Comment on above: Performed By: #### C MP, CRP, FT4, LIPD, FT3, ESR, TSH, CBC #### [facility] [address] [place], [place] [id number] Complete Blood Counton 11-10 Erythrocyte distribution width (RBC) [Ratio] 13.9 % Normal 11.0-15.0 [facility] Comment on above: Performed By: #### C MP, CRP, FT4, LIPD, FT3, ESR, TSH, CBC #### [facility] [address] [place], [place] [id number] Hematocrit (Bld) [Volume fraction] 48.5 % Normal 38.5-50.0 [facility] Comment on above: Performed By: #### C MP, CRP, FT4, LIPD, FT3, ESR, TSH, CBC #### [facility] [address] [place], [place] [id number] Hemoglobin (Bld) [Mass/Vol] 15.1 g/dL Normal 13.0-17.1 [facility] Comment on above: Performed By: #### C MP, CRP, FT4, LIPD, FT3, ESR, TSH, CBC #### [facility] [address] [place], [place] [id number] MCH (RBC) [Entitic mass] 28.6 pg Normal 27.0-33.0 [facility] Comment on above: Performed By: #### C MP, CRP, FT4, LIPD, FT3, ESR, TSH, CBC #### [facility] [address] [place], [place] [id number] MCHC (RBC) [Mass/Vol] 31.1 g/dL Low 32.0-36.0 [facility] Comment on above: Performed By: #### C MP, CRP, FT4, LIPD, FT3, ESR, TSH, CBC #### [facility] [address] [place], [place] [id number] MCV (RBC) [Entitic vol] 92 fL Normal 80-100 [facility] Comment on above: Performed By: #### C MP, CRP, FT4, LIPD, FT3, ESR, TSH, CBC #### [facility] [address] [place], [place] [id number] Platelet mean volume (Bld) [Entitic vol] 9.10 fL Normal 7.50-12.50 [facility] Comment on above: Performed By: #### C MP, CRP, FT4, LIPD, FT3, ESR, TSH, CBC #### [facility] [address] [place], [place] [id number] Platelets (Bld) [#/Vol] 151 10*3/uL Normal 140-400 [facility] Comment on above: Performed By: #### C MP, CRP, FT4, LIPD, FT3, ESR, TSH, CBC #### [facility] [address] [place], [place] [id number] RBC (Bld) [#/Vol] 5.28 10*6/uL Normal 4.20-5.80 [facility] Comment on above: Performed By: #### C MP, CRP, FT4, LIPD, FT3, ESR, TSH, CBC #### [facility] [address] [place], [place] [id number] RDW-SD 46.7 fL Normal 37.0-50.0 [facility] Comment on above: Performed By: #### C MP, CRP, FT4, LIPD, FT3, ESR, TSH, CBC #### [facility] [address] [place], [place] [id number] WBC (Bld) [#/Vol] 10.2 10*3/uL Normal 3.8-11.0 [facility] Comment on above: Performed By: #### C MP, CRP, FT4, LIPD, FT3, ESR, TSH, CBC #### [facility] [address] [place], [place] [id number] Comprehensive Metabolic Pane [facility] 11-10-2021 Albumin [Mass/Vol] 4.1 g/dL Normal 3.6-5.1 [facility] Special[facility] Comment on above: Performed By: #### C MP, CRP, FT4, LIPD, FT3, ESR, TSH, CBC #### [facility] [address] [place], [place] [id number] Albumin/Globulin [Mass ratio] 1.6 {ratio} Normal 1.0-2.5 [facility] Comment on above: Performed By: #### C MP, CRP, FT4, LIPD, FT3, ESR, TSH, CBC #### [facility] [address] [place], [place] [id number] ALP [Catalytic activity/Vol] 98 U/L Normal 40-129 [facility] Comment on above: Performed By: #### C MP, CRP, FT4, LIPD, FT3, ESR, TSH, CBC #### [facility] [address] [place], [place] [id number] ALT [Catalytic activity/Vol] 36 U/L Normal 9-46 [facility] Comment on above: Result Comment: 08/13 Female reference range changed. Performed By: #### C MP, CRP, FT4, LIPD, FT3, ESR, TSH, CBC #### [facility] [address] [place], [place] [id number] Anion gap [Moles/Vol] 16 mmol/L Normal 12-[address] [facility] Specialist Comment on above: Result Comment: Effe ctive 09/18/2019 reference range changed. Performed By: #### C MP, CRP, FT4, LIPD, FT3, ESR, TSH, CBC #### [facility] [address] [place], [place] [id number] AST [Catalytic activity/Vol] 19 U/L Normal 10-40 [facility] Comment on above: Performed By: #### C MP, CRP, FT4, LIPD, FT3, ESR, TSH, CBC #### [facility] [address] [place], [place] [id number] Bilirubin [Mass/Vol] 0.65 mg/dL Normal 0.30-1.20 [facility] Comment on above: Performed By: #### C MP, CRP, FT4, LIPD, FT3, ESR, TSH, CBC #### [facility] [address] [place], [place] [id number] BUN/CREA 13 Ratio Normal 6-22 [facility] Comment on above: Performed By: #### C MP, CRP, FT4, LIPD, FT3, ESR, TSH, CBC #### [facility] [address] [place], [place] [id number] Calcium [Mass/Vol] 8.5 mg/dL Low 8.6-10.2 [facility] Comment on above: Performed By: #### C MP, CRP, FT4, LIPD, FT3, ESR, TSH, CBC #### [facility] [address] [place], [place] [id number] Chloride [Moles/Vol] 107 mmol/L Normal 98-107 [facility] Comment on above: Performed By: #### C MP, CRP, FT4, LIPD, FT3, ESR, TSH, CBC #### [facility] [address] [place], [place] [id number] CO2 [Moles/Vol] 25 mmol/L Normal 20-31 [facility] Comment on above: Performed By: #### C MP, CRP, FT4, LIPD, FT3, ESR, TSH, CBC #### [facility] [address] [place], [place] [id number] Creatinine [Mass/Vol] 1.6 mg/dL High 0.7-1.4 [facility] Comment on above: Performed By: #### C MP, CRP, FT4, LIPD, FT3, ESR, TSH, CBC #### [facility] [address] [place], [place] [id number] eGFRAA 53 mL/min/1.73m2 Low >60 [facility] Comment on above: Performed By: #### C MP, CRP, FT4, LIPD, FT3, ESR, TSH, CBC #### [facility] [address] [place], [place] [id number] eGFRNAA 44 mL/min/1.73m2 Low >60 [facility] Comment on above: Performed By: #### C MP, CRP, FT4, LIPD, FT3, ESR, TSH, CBC #### [facility] [address] [place], [place] [id number] Globulin (S) [Mass/Vol] 2.5 g/dL Normal 1.9-3.7 [facility] Comment on above: Performed By: #### C MP, CRP, FT4, LIPD, FT3, ESR, TSH, CBC #### [facility] [address] [place], [place] [id number] Glucose [Mass/Vol] 88 mg/dL Normal 65-99 [facility] Specialist Comment on above: Result Comment: For FASTING Glucose --- ADA reference ranges: Normal 65-99 mg/dl Prediabetes 100-125 Diabetes >/= 126 Performed By: #### C MP, CRP, FT4, LIPD, FT3, ESR, TSH, CBC #### [facility] [address] [place], [place] [id number] Potassium [Moles/Vol] 5.2 mmol/L Normal 3.5-5.5 [facility] Comment on above: Performed By: #### C MP, CRP, FT4, LIPD, FT3, ESR, TSH, CBC #### [facility] [address] [place], [place] [id number] Protein [Mass/Vol] 6.6 g/dL Normal 6.1-8.1 [facility] Chief Ophthalmic Technician Comment on above: Performed By: #### C MP, CRP, FT4, LIPD, FT3, ESR, TSH, CBC #### [facility] [address] [place], [place] [id number] Sodium [Moles/Vol] 143 mmol/L Normal 135-146 [facility] Special[facility] Comment on above: Performed By: #### C MP, CRP, FT4, LIPD, FT3, ESR, TSH, CBC #### [facility] [address] [place], [place] [id number] Urea nitrogen [Mass/Vol] 20 mg/dL Normal 7-25 [facility] Comment on above: Performed By: #### C MP, CRP, FT4, LIPD, FT3, ESR, TSH, CBC #### [facility] [address] [place], [place] [id number] Free T3on 11-10-2021 FT3 2.63 pg/mL Normal 2.00-4.40 [facility] Comment on above: Performed By: #### C MP, CRP, FT4, LIPD, FT3, ESR, TSH, CBC #### [facility] [address] [place], [place] [id number] Free T4on 11-10-2021 Free T4 [Mass/Vol] 1.00 ng/dL Normal 0.80-1.80 [facility] Specialist Comment on above: Performed By: #### C MP, CRP, FT4, LIPD, FT3, ESR, TSH, CBC #### [facility] [address] [place], [place] [id number] Lipid Panelon 11-10-2021 Cholesterol [Mass/Vol] 147 mg/dL Normal 125-200 [facility] Specialist Comment on above: Result Comment: Low risk < 200mg/dL Borderline risk 201-239 mg/dl High risk > or equal to 240 Performed By: #### C MP, CRP, FT4, LIPD, FT3, ESR, TSH, CBC #### [facility] [address] [place], [place] [id number] Cholesterol in HDL [Mass/Vol] 71 mg/dL Normal >40 [facility] Chief Ophthalmic Technician Comment on above: Result Comment: High Cardiovascular Risk HDL <40 mg/dL Low Cardiovascular Risk HDL > or equal to 60 mg/dl Performed By: #### C MP, CRP, FT4, LIPD, FT3, ESR, TSH, CBC #### [facility] [address] [place], [place] [id number] Cholesterol in LDL [Mass/Vol] 58 mg/dL Normal [facility] Comment on above: Result Comment: LDL ATP III CLASSIFICATION LDL less than 100 mg/dl Optimal LDL 100-129 mg/dl Near or above optimal LDL 130-159 Borderline high LDL 160-189 High LDL greater than 189 mg/dl Very High Performed By: #### C MP, CRP, FT4, LIPD, FT3, ESR, TSH, CBC #### [facility] [address] [place], [place] [id number] Cholesterol in VLDL [Mass/Vol] 18 mg/dL Normal [facility] Specialist Comment on above: Performed By: #### C MP, CRP, FT4, LIPD, FT3, ESR, TSH, CBC #### [facility] [address] [place], [place] [id number] Cholesterol.total/Cho lesterol in HDL [Mass ratio] 2 {ratio} Normal [facility] Comment on above: Performed By: #### C MP, CRP, FT4, LIPD, FT3, ESR, TSH, CBC #### [facility] [address] [place], [place] [id number] Triglyceride [Mass/Vol] 89 mg/dL Normal 30-150 [facility] Specialist Comment on above: Result Comment: TRIG ATPIII CLASSIFICATIONS TRIG less than 150 mg/dl Normal TRIG 150-199 mg/dl Borderline High TRIG 200-500 mg/dl High TRIG greather than 500 mg/dl Very High Performed By: #### C MP, CRP, FT4, LIPD, FT3, ESR, TSH, CBC #### [facility] [address] [place], [place] [id number] PSA SCREEN (MEDICARE)on 10-15 TPSA 0.731 ng/mL Normal <4.000 [facility] Specialist Comment on above: Result Comment: PSA Test Method: ECLIA/Alicia e 601 Performed By: #### P SA #### [facility] [address] [place], [place] [id number] RBC Sedimentation Rateon ESR (Bld) [Velocity] 57.00 mm/h High 0.00-20.00 [facility] Specialist Comment on above: Performed By: #### C MP, CRP, FT4, LIPD, FT3, ESR, TSH, CBC #### [facility] [address] [place], [place] [id number] TSHon 11-10-2021 TSH 2.990 uIU/mL Normal 0.400-4.500 [facility] Chief Ophthalmic Technician Comment on above: Performed By: #### C MP, CRP, FT4, LIPD, FT3, ESR, TSH, CBC #### [facility] [address] [place], [place] [id number] Uric Acidon 10-20-2021 URIC 8.5 mg/dL High 4.0-8.0 [facility] Specialist Comment on above: Result Comment: Refe rence range change 07/30/2017. Prior reference range F 2.4-5.7mg/dL. M 3.4-7.0 mg/dL. Performed By: #### U BOSSMAN #### [facility] [address] [place], [place] [id number] XR pre/post mri xrayon 08-01 XR pre/post mri xray [facility] [place] [address] MRI Report Signed Patient: Hakeem Escobedo MR#: [id number] : 1945 Acct:[id number] Age/Sex: 75 / M ADM Date: 08/01/21 Loc: [facility] Room: Type: [facility] Attending Dr: Petrona Boyer NP Ordering Provider: Petrona Boyer NP Date of Service: 08/01/21 MR/MR lumbar spine wo con: M51.26 ([id number]) XR/XR pre/post mri xray: M51.26 Copies to: [...] Kirk Santiago M.D.08/01/2021 5:06 PM Dictation Location: [place] [address] Transcribed By: ERIKA 08/01/21 1705 Dictated By: Kirk Santiago II, MD 08/01/21 3525 Signed By: 08/01/21 1706 [facility] Vital Signs Date Time Vital Sign Value Performing Clinician Greta serrato 03-07-2025 08:46-0400 Body height 167.6 cm Mono Knowles MD Work Phone: [facility] 03-07-2025 08:46-0400 Body mass index (BMI) [Ratio] 31.15 kg/m2 Mono Knowles MD Work Phone: [facility] 03-07-2025 08:46-0400 Body weight 87.54 kg Mono Knowles MD Work Phone: [facility] 03-07-2025 08:46-0400 Diastolic blood pressure 70 mm[Hg] Mono Knowles MD Work Phone: [facility] 03-07-2025 08:46-0400 Heart rate 54 /min Mono Knowles MD Work Phone: [facility] 03-07-2025 08:46-0400 SaO2% (BldA) [Mass fraction] 97 % Mono Knowles MD Work Phone: [facility] 03-07-2025 08:46-0400 Systolic blood pressure 128 mm[Hg] Mono Knowles MD Work Phone: [facility] 02-28-2025 10:40-0400 Body height 167.6 cm Mono Knowles MD Work Phone: [facility] 02-28-2025 10:40-0400 Body mass index (BMI) [Ratio] 31.09 kg/m2 Mono Knowles MD Work Phone: [facility] 02-28-2025 10:40-0400 Body weight 87.36 kg Mono Knowles MD Work Phone: [facility] 02-28-2025 10:40-0400 Diastolic blood pressure 82 mm[Hg] Mono Knowles MD Work Phone: [facility] 02-28-2025 10:40-0400 Heart rate 64 /min Mono Knowles MD Work Phone: [facility] 02-28-2025 10:40-0400 Respiratory rate 16 /min Mono Knowles MD Work Phone: [facility] 02-28-2025 10:40-0400 SaO2% (BldA) [Mass fraction] 97 % Mono Knowles MD Work Phone: [facility] 02-28-2025 10:40-0400 Systolic blood pressure 120 mm[Hg] Mono Knowles MD Work Phone: [facility] 02-12-2025 08:48-0400 Body height 167.6 cm Mono Knowles MD Work Phone: [facility] 02-12-2025 08:48-0400 Body mass index (BMI) [Ratio] 31.31 kg/m2 Mono Knowles MD Work Phone: [facility] 02-12-2025 08:48-0400 Body weight 88 kg Mono Knowles MD Work Phone: [facility] 02-12-2025 08:48-0400 Diastolic blood pressure 76 mm[Hg] Mono Knowles MD Work Phone: [facility] 02-12-2025 08:48-0400 Heart rate 63 /min Mono Knowles MD Work Phone: [facility] 02-12-2025 08:48-0400 SaO2% (BldA) [Mass fraction] 96 % Mono Knowles MD Work Phone: [facility] 02-12-2025 08:48-0400 Systolic blood pressure 124 mm[Hg] Mono Knowles MD Work Phone: [facility] 12-06-2024 09:07-0400 Body height 167.6 cm Mono Knowles MD Work Phone: [facility] 12-06-2024 09:07-0400 Body mass index (BMI) [Ratio] 30.99 kg/m2 Mono Knowles MD Work Phone: [facility] 12-06-2024 09:07-0400 Body weight 87.09 kg Mono Knowles MD Work Phone: [facility] 12-06-2024 09:07-0400 Diastolic blood pressure 76 mm[Hg] Mono Knowles MD Work Phone: [facility] 12-06-2024 09:07-0400 Heart rate 62 /min Mono Knowles MD Work Phone: [facility] 12-06-2024 09:07-0400 SaO2% (BldA) [Mass fraction] 98 % Mono Knowles MD Work Phone: [facility] 12-06-2024 09:07-0400 Systolic blood pressure 128 mm[Hg] Mono Knowles MD Work Phone: [facility] 11-08-2024 14:24-0500 Body mass index (BMI) [Ratio] 30.89 kg/m2 Christopher Jossy DO Work Phone: [facility] 11-08-2024 14:24-0500 Body weight 86.82 kg Christopher Jossy DO Work Phone: [facility] 11-08-2024 14:24-0500 Diastolic blood pressure 84 mm[Hg] Christopher Jossy DO Work Phone: [facility] 11-08-2024 14:24-0500 Heart rate 64 /min Christopher Jossy DO Work Phone: [facility] 11-08-2024 14:24-0500 SaO2% (BldA) [Mass fraction] 97 % Christopher Jossy DO Work Phone: [facility] 11-08-2024 14:24-0500 Systolic blood pressure 132 mm[Hg] Christopher Jossy DO Work Phone: [facility] 11-01-2024 08:12-0500 Body height 167.6 cm Norma Jin MD Work Phone: [facility] 11-01-2024 08:12-0500 Body mass index (BMI) [Ratio] 30.18 kg/m2 Norma Jin MD Work Phone: [facility] 11-01-2024 08:12-0500 Body weight 84.82 kg Norma Jin MD Work Phone: [facility] 11-01-2024 08:12-0500 Diastolic blood pressure 77 mm[Hg] Norma Jin MD Work Phone: [facility] 11-01-2024 08:12-0500 Heart rate 75 /min Norma Jin MD Work Phone: [facility] 11-01-2024 08:12-0500 Systolic blood pressure 113 mm[Hg] Norma Jin MD Work Phone: [facility] 10-09-2024 11:11-0500 Body height 167.6 cm Mono Knowles MD Work Phone: [facility] 10-09-2024 11:11-0500 Body mass index (BMI) [Ratio] 30.18 kg/m2 Mono Knowles MD Work Phone: [facility] 10-09-2024 11:11-0500 Body weight 84.82 kg Mono Knowles MD Work Phone: [facility] 10-09-2024 11:11-0500 Diastolic blood pressure 72 mm[Hg] Mono Knowles MD Work Phone: [facility] 10-09-2024 11:11-0500 Heart rate 67 /min Mono Knowles MD Work Phone: [facility] 10-09-2024 11:11-0500 SaO2% (BldA) [Mass fraction] 96 % Mono Knowles MD Work Phone: [facility] 10-09-2024 11:11-0500 Systolic blood pressure 126 mm[Hg] Mono Knowles MD Work Phone: [facility] 09-22-2024 08:33-0500 Body height 167.6 cm Marylou LOVELACE Work Phone: [facility] 09-22-2024 08:33-0500 Body mass index (BMI) [Ratio] 30.34 kg/m2 Marylou LOVELACE Work Phone: [facility] 09-22-2024 08:33-0500 Body weight 85.28 kg Marylou Hemmer PA Work Phone: [facility] 09-22-2024 08:33-0500 Diastolic blood pressure 72 mm[Hg] Marylou Hemmer PA Work Phone: [facility] 09-22-2024 08:33-0500 Heart rate 52 /min Marylou Hemmer PA Work Phone: [facility] 09-22-2024 08:33-0500 SaO2% (BldA) [Mass fraction] 94 % Marylou Hemmer PA Work Phone: [facility] 09-22-2024 08:33-0500 Systolic blood pressure 116 mm[Hg] Marylou Hemmer PA Work Phone: [facility] 08-30-2024 08:59-0500 Body height 167.6 cm Mono Knowles MD Work Phone: [facility] 08-30-2024 08:59-0500 Body mass index (BMI) [Ratio] 29.86 kg/m2 Mono Knowles MD Work Phone: [facility] 08-30-2024 08:59-0500 Body weight 83.92 kg Mono Knowles MD Work Phone: [facility] 08-30-2024 08:59-0500 Diastolic blood pressure 68 mm[Hg] Mono Knowles MD Work Phone: [facility] 08-30-2024 08:59-0500 Heart rate 66 /min Mono Knowles MD Work Phone: [facility] 08-30-2024 08:59-0500 SaO2% (BldA) [Mass fraction] 96 % Mono Knowles MD Work Phone: [facility] 08-30-2024 08:59-0500 Systolic blood pressure 112 mm[Hg] Mono Knowles MD Work Phone: [facility] 07-12-2024 10:12-0400 Body height 167.6 cm Mono Knowles MD Work Phone: [facility] 07-12-2024 10:12-0400 Body mass index (BMI) [Ratio] 30.34 kg/m2 Mono Knowles MD Work Phone: [facility] 07-12-2024 10:12-0400 Body weight 85.28 kg Mono Knowles MD Work Phone: [facility] 07-12-2024 10:12-0400 Diastolic blood pressure 74 mm[Hg] Mono Knowles MD Work Phone: [facility] 07-12-2024 10:12-0400 Heart rate 62 /min Mono Knowles MD Work Phone: [facility] 07-12-2024 10:12-0400 SaO2% (BldA) [Mass fraction] 97 % Mono Knowles MD Work Phone: [facility] 07-12-2024 10:12-0400 Systolic blood pressure 132 mm[Hg] Mono Knowles MD Work Phone: [facility] 06-26-2024 09:15-0400 Body height 167.6 cm Mono Knowles MD Work Phone: [facility] 06-26-2024 09:15-0400 Body mass index (BMI) [Ratio] 29.7 kg/m2 Mono Knowles MD Work Phone: [facility] 06-26-2024 09:15-0400 Body weight 83.46 kg Mono Knowles MD Work Phone: [facility] 06-26-2024 09:15-0400 Diastolic blood pressure 70 mm[Hg] Mono Knowles MD Work Phone: [facility] 06-26-2024 09:15-0400 Heart rate 63 /min Mono Knowles MD Work Phone: [facility] 06-26-2024 09:15-0400 SaO2% (BldA) [Mass fraction] 97 % Mono Knowles MD Work Phone: [facility] 06-26-2024 09:15-0400 Systolic blood pressure 124 mm[Hg] Mono Knowles MD Work Phone: [facility] 05-24-2024 08:42-0400 Body height 167.6 cm Yvette Thornton CHIEF DISPATCHER SERVICE Work Phone: [facility] 05-24-2024 08:42-0400 Body mass index (BMI) [Ratio] 29.86 kg/m2 Yvette Thornton CHIEF DISPATCHER SERVICE Work Phone: [facility] 05-24-2024 08:42-0400 Body weight 83.92 kg Yvette Thornton CHIEF DISPATCHER SERVICE Work Phone: [facility] 05-24-2024 08:42-0400 Diastolic blood pressure 82 mm[Hg] Yvette Thornton CHIEF DISPATCHER SERVICE Work Phone: [facility] 05-24-2024 08:42-0400 Heart rate 60 /min Yvette Thornton CHIEF DISPATCHER SERVICE Work Phone: [facility] 05-24-2024 08:42-0400 SaO2% (BldA) [Mass fraction] 98 % Yvette Thornton CHIEF DISPATCHER SERVICE Work Phone: [facility] 05-24-2024 08:42-0400 Systolic blood pressure 122 mm[Hg] Yvette Thornton CHIEF DISPATCHER SERVICE Work Phone: [facility] 05-10-2024 09:59-0400 Body height 167.6 cm Mono Knowles MD Work Phone: [facility] 05-10-2024 09:59-0400 Body mass index (BMI) [Ratio] 30.18 kg/m2 Mono Knowles MD Work Phone: [facility] 05-10-2024 09:59-0400 Body weight 84.82 kg Mono Knowles MD Work Phone: [facility] 05-10-2024 09:59-0400 Diastolic blood pressure 82 mm[Hg] Mono Knowles MD Work Phone: [facility] 05-10-2024 09:59-0400 Heart rate 56 /min Mono Knowles MD Work Phone: [facility] 05-10-2024 09:59-0400 SaO2% (BldA) [Mass fraction] 98 % Mono Knowles MD Work Phone: [facility] 05-10-2024 09:59-0400 Systolic blood pressure 134 mm[Hg] Mono Knowles MD Work Phone: [facility] 12-09-2023 08:38-0400 Body height 167.6 cm Adrian Son MD Work Phone: [facility] 12-09-2023 08:38-0400 Body mass index (BMI) [Ratio] 29.86 kg/m2 Adrian Son MD Work Phone: [facility] 12-09-2023 08:38-0400 Body weight 83.92 kg Adrian Son MD Work Phone: [facility] 12-09-2023 08:38-0400 Diastolic blood pressure 70 mm[Hg] Adrian Son MD Work Phone: [facility] 12-09-2023 08:38-0400 Heart rate 63 /min Adrian Son MD Work Phone: [facility] 12-09-2023 08:38-0400 SaO2% (BldA) [Mass fraction] 95 % Adrian Son MD Work Phone: [facility] 12-09-2023 08:38-0400 Systolic blood pressure 110 mm[Hg] Adrian Son MD Work Phone: [facility] 10-27-2023 08:49-0500 Body height 167.6 cm Mono Knowles MD Work Phone: [facility] 10-27-2023 08:49-0500 Body mass index (BMI) [Ratio] 29.7 kg/m2 Mono Knowles MD Work Phone: [facility] 10-27-2023 08:49-0500 Body weight 83.46 kg Mono Knowles MD Work Phone: [facility] 10-27-2023 08:49-0500 Diastolic blood pressure 66 mm[Hg] Mono Knowles MD Work Phone: [facility] 10-27-2023 08:49-0500 Heart rate 56 /min Mono Knowles MD Work Phone: [facility] 10-27-2023 08:49-0500 SaO2% (BldA) [Mass fraction] 97 % oMno Knowles MD Work Phone: [facility] 10-27-2023 08:49-0500 Systolic blood pressure 108 mm[Hg] Mono Knowles MD Work Phone: [facility] Healthcare Encounters Encounter Date Encounter Type Care Provider Facility Start: 05-26-2025 End: 05-26-2025 Telephone encounter Amparo Valle [facility] Comment on above: HIM Start: 05-24-2025 End: 05-24-2025 Emergency department patient visit MONO KNOWLES [facility] Start: 05-11-2025 End: 05-15-2025 Refill Summer GARZAS [facility] Comment on above: Anxiety Start: 05-09-2025 End: 05-09-2025 Refill Mono Knowles MD Work Phone: [facility] Comment on above: Cervical stenosis of spinal canal Start: 04-11-2025 End: 04-11-2025 Refill Summer Kay MA [facility] Comment on above: Anxiety Start: 04-10-2025 End: 04-10-2025 Refill Mono Knowles MD Work Phone: [facility] Comment on above: Cervical stenosis of spinal canal Start: 03-14-2025 End: 03-14-2025 Refill Mono Knowles MD Work Phone: [facility] Comment on above: Gastroesophageal ref [...] [facility] Start: 02-28-2025 End: 02-28-2025 Bamboo flowsiraida Knowles MD Work Phone: [facility] [...] above: Anxiety Start: 02-12-2025 End: 02-12-2025 Bamboo flowsiraida Knowles MD Work Phone: [facility] [...] 01-22-2025 Emergency department patient visit MONO KNOWLES [facility] Start: 01-08-2025 End: 01-08-2025 Refill Mono [...] hemorrhage; Benign essential hypertension (CMS/HCC); 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); Stented coronary artery; Right lumbar radiculopathy; Cerebrovascular accident (CVA), unspecified mechanism (CMS/HCC) Start: 12-06-2024 End: 12-06-2024 ambulatory MONO KNOWLES Not Available Start: 12-04-2024 End: 12-04-2024 Telephone encounter Daisy Crandall [facility] Start: 11-16-2024 End: 11-16-2024 Bamboo flowsheet Tyler [...] End: 11-08-2024 Office outpatient new 60 minutes Don Fenton DO Work Phone: [facility] Comment on [...] [facility] Start: 11-01-2024 End: 11-01-2024 Jeremy munguiaheet Norma Jin MD Work Phone: [facility] Start: 11-01-2024 End: 11-02-2024 Telephone encounter Mono Knowles MD Work Phone: [facility] Start: 11-01-2024 End: 11-01-2024 Office outpatient new 45 minutes Norma Jin MD Work Phone: [facility] Comment on above: Pharyngoesophageal d ysphagia Start: 11-01-2024 End: 11-01-2024 ambulatory NORMA JIN Not Available Start: 10-31-2024 End: 10-31-2024 Telephone encounter Kevin Renteria PT Work Phone: [facility] Comment on above: PT Eval Reminder (To day makes 3rd attempt to be seen.) Start: 10-23-2024 End: 10-25-2024 Refill Summer Kay MA [facility] Comment on above: Anxiety Chronic insomnia Start: 10-21-2024 End: 10-23-2024 Refill Jaxson Cunningham [employer]-HOUSE REGISTRY RN Work Phone: [facility] Comment on above: Med Refill Start: 10-16-2024 End: 10-19-2024 Telephone encounter Kevin Renteria PT Work Phone: [facility] Comment [...] Available Start: 10-06-2024 End: 10-07-2024 ambulatory MONO KNOWLES [facility] Start: 09-22-2024 End: 09-22-2024 Office outpatient visit 25 minutes Marylou Larry PA Work Phone: [facility] Comment on above: IRINA (acute kidney in jury) (CMS/HCC) (Primary Dx); Stage 3b chronic kidney disease (HCC) (CMS/HCC); Benign essential hypertension (CMS/HCC) Start: 09-22-2024 End: 09-22-2024 ambulatory MARYLOU Cooney KENDY Not Available Start: 09-20-2024 End: 09-20-2024 Refill Summer Kay MA [facility] Comment on above: Anxiety; Cervical stenosis of spinal canal Start: 09-14-2024 End: 09-14-2024 Emergency department patient visit MONO KNOWLES [facility] Start: 09-14-2024 ambulatory MONO KNOWLES [facility] Start: 08-31-2024 End: 08-31-2024 Telephone encounter Wednesday WEATHERIZATION AND HOUSING INSPECTOR Work Phone: [facility] Start: 08-31-2024 ambulatory MONO KNOWLES [facility] Start: 08-30-2024 End: 08-30-2024 Bamboo flowsheet [...] Telephone encounter Robert Curry MD Work Phone: [facility] Comment on above: Results Start: 08-23-2024 End: 08-23-2024 ambulatory KE DANIEL Not Available Start: 08-17-2024 End: 08-17-2024 Refill Mono Knowles MD Work Phone: [facility] Comment on above: Cervical stenosis of spinal canal Start: 08-15-2024 End: 08-22-2024 Telephone encounter Sahra Richardson [facility] Comment on above: NEW PATIENT REFERRAL Start: 08-10-2024 End: 08-12-2024 ambulatory MONO KNOWLES [facility] Start: 07-20-2024 End: 07-20-2024 Refill Odalys Dahlia HENRY [facility] Comment on above: Cervical [...] Start: 06-22-2024 End: 06-22-2024 Refill Karol Wednesday WEATHERIZATION AND HOUSING INSPECTOR Work Phone: [facility] Comment on [...] 05-24-2024 End: 05-24-2024 Bamboo flowsheet Yvette Thornton CHIEF DISPATCHER SERVICE Work Phone: [facility] Start: 05-24-2024 End: 05-24-2024 Bamboo flowsheet Yvette Thornton CHIEF DISPATCHER SERVICE Work Phone: [facility] Start: 05-24-2024 End: 05-24-2024 Office outpatient visit 25 minutes Yvette Thornton CHIEF DISPATCHER SERVICE Work Phone: [facility] Comment on above: Parotiditis (Primary Dx); Cervical stenosis of spinal canal Start: 05-24-2024 End: 05-24-2024 ambulatory YVETTE THORNTON Not Available Start: 05-10-2024 End: 05-10-2024 Bamboo flowsheet Mono Knowles MD Work Phone: [facility] Start: 05-10-2024 End: 05-10-2024 Bamboo flowsheet Mono Knowles MD Work Phone: [facility] Start: 05-10-2024 End: 05-10-2024 Office outpatient visit 25 minutes Mono Knowles MD Work Phone: [facility] Comment on above: Subacute cough (Prim alessandro Dx); Acute bronchitis, unspecified organism Start: 05-10-2024 End: 05-10-2024 ambulatory MONO KNOWLES Not Available Start: 04-25-2024 End: 04-25-2024 Refill Christin Bazzi RN [facility] Comment on above: Med Refill Start: 04-05-2024 End: 04-05-2024 ambulatory MONO KNOWLES Not Available Start: 12-09-2023 End: 12-09-2023 Office outpatient visit 15 minutes Racheal Chi MD Work Phone: [facility] Comment on above: Benign essential hyp ertension (Primary Dx); Coronary artery disease involving tangirnaq coronary artery 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 Start: 12-08-2023 Telephone encounter Quynh Bustillo [facility] Start: 11-16-2023 Telephone encounter Quynh Bustillo [facility] Start: 11-01-2023 Telephone encounter Magalie Mcdaniel RN [facility] Start: 10-28-2023 Refill Christin Bazzi RN [facility] Comment on above: Med Refill [...] above: Wellness examination (Primary Dx); 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); Stented [...] canal; Right lumbar radiculopathy Start: 09-02-2023 Refill Audrasal Cisneros cki [employer]-HOUSE REGISTRY RN Work Phone: [facility] Comment on above: Med Refill Start: 02-04-[address] MONO KNOWLES Facilit y:H1 Procedures Date Procedure Procedure Detail Performing Clinician Start: 12-06-2024 Assay of prostate specific antigen total Mono Knowles MD Work Phone: Start: 11-16-2024 End: 11-16-2024 Needle emg ea extremty w/paraspinl area complete Triper Jossy DO Work Phone: Start: 06-21-2024 BLOOD CULTURE 2 Generic External Data Provider Start: 06-21-2024 BLOOD CULTURE 1 Generic External Data Provider Start: 10-19-2022 Colonoscopy Audra hodges [employer]-HOUSE REGISTRY RN Work Phone: Plan of Treatment Date Care Activity Detail Author Start: 05-24-2026 Tobacco Screening Tobacco Screening [facility] Start: 10-19-2025 Screening for malign ant neoplasm of colon Colonoscopy [facility] Start: 10-06-2025 Tobacco Screening Tobacco Screening [facility] Start: 06-06-2025 End: 06-06-2025 Patient encounter procedure [facility] Start: 05-18-2025 Tobacco Screening Tobacco Screening [facility] Start: 05-17-2025 End: 05-17-2025 Patient encounter procedure 05/17/2025 9:00 AM EDT Office Visit [facility] [address] [facility] [address] [place] [address] Mono Knowles MD [address] [facility] [address] [place] [address] [facility] Start: 05-14-2025 COVID-19 Vaccine ( season) COVID-19 Vaccine ( season) [facility] Start: 05-14-2025 Influenza vaccination [facility] Start: 03-07-2025 End: 03-07-2025 Patient encounter procedure [facility] Comment on above: Arrived Start: 02-28-2025 End: 02-28-2025 Patient encounter procedure 02/28/2025 10:30 AM EDT Office Visit [facility] [address] [place] [address] Mono Knowles MD [address] [place] [address] Arrived [facility] Comment on above: Arrived Start: 02-12-2025 End: 02-12-2025 Patient encounter procedure [facility] Comment on above: Arrived Start: 01-08-2025 End: 01-08-2025 Patient encounter procedure 01/08/2025 3:45 PM EDT Office Visit [facility] [address] [place] [phone] Don Fenton, DO [address] [place], [place] [id number] [facility] Start: 12-27-2024 End: 12-27-2024 Patient encounter procedure 12/27/2024 2:20 PM EDT Office Visit [facility] [address] [facility] [address] [place] [address] Norma Jin MD [address] [facility] [address] [place] [address] [facility] Start: 12-19-2024 End: 12-19-2024 Patient encounter procedure 12/19/2024 10:30 AM EDT Procedure Visit [facility] [address] [facility] [address] [place] [phone] Don Fenton, DO [address] [place] [address] [facility] Start: 12-08-2024 Adult BMI Screening Adult BMI Screen ing [facility] Start: 12-08-2024 Tobacco Screening Tobacco Screening [facility] Start: 12-06-2024 End: 12-06-2024 Patient encounter procedure [facility] Start: 12-05-2024 End: 12-05-2024 Patient encounter procedure 12/05/2024 1:30 PM EDT Office Visit [facility] [address] [place] [phone] Neil Neal, ASSEMBLER [employer]S-HOUSE REGISTRY RN [address] [place] [address] [facility] Start: 2024 End: 2024 Patient encounter procedure 2024 11:30 AM EDT Procedure Visit [facility] [address] [place] [address] Tyler Sanchez MD [address] [place], [place] [id number] [facility] Start: 11-22-2024 End: 11-22-2024 Patient encounter procedure 11/22/2024 8:30 AM EDT Office Visit [facility] [address] [place] [address] Norma Jin MD [address] [place] [address] [facility] Start: 11-20-2024 End: 11-20-2024 Patient encounter procedure 11/20/2024 9:15 AM EDT Office Visit [facility] [address] [place] [address] Mono Knowles MD [address] [place] [address] [facility] Start: 11-16-2024 End: 11-16-2024 Patient encounter procedure SATURNINO CARMONA Comment on above: Arrived Start: 11-09-2024 End: 11-09-2024 ambulatory 11/09/2024 9:00 AM EST Evaluation [facility] [address] [place] [address] Kevin Renteria, PT [address] [facility] [address] [place] [address] [facility] PT Start: 11-08-2024 End: 11-08-2024 Patient encounter procedure SATURNINO MOODY Comment on above: Cerebrovascular acci dent (CVA), unspecified mechanism (CMS/HCC); Spinal stenosis of lumbar region with neurogenic claudication Start: 11-08-2024 End: 11-08-2025 Acetylcholine receptor, binding Acetylcholine receptor, binding Lab Routine Weakness Expected: 11/08/2024 (Approximate), Expires: 11/08/2025 [facility] Comment on above: Expected: 11/08/2024 (Approximate), Expires: 11/08/2025 Start: 11-08-2024 End: 11-08-2025 Acetylcholine receptor, blocking Acetylcholine receptor, blocking Lab Routine Weakness Expected: 11/08/2024 (Approximate), Expires: 11/08/2025 [facility] Comment on above: Expected: 11/08/2024 (Approximate), Expires: 11/08/2025 Start: 11-08-2024 End: 11-08-2025 Acetylcholine receptor, modulating Acetylcholine receptor, modulating Lab Routine Weakness Expected: 11/08/2024 (Approximate), Expires: 11/08/2025 [facility] Comment on above: Expected: 11/08/2024 (Approximate), Expires: 11/08/2025 Start: 11-08-2024 End: 11-08-2025 EMG 2 Extremities EMG 2 Extremities Neurology Routine Weakness Expected: 11/08/2024, Expires: 11/08/2025 [facility] Comment on above: Expected: 11/08/2024 , Expires: 11/08/2025 Start: 11-08-2024 End: 11-08-2025 MUSK ANTIBODY TEST MUSK ANTIBODY TEST Lab Routine Weakness Expected: 11/08/2024 (Approximate), Expires: 11/08/2025 [facility] Work Phone: Comment on above: Expected: 11/08/2024 (Approximate), Expires: 11/08/2025 Start: 11-01-2024 End: 11-01-2024 Patient encounter procedure [facility] Comment on above: Dysphagia, unspecifi ed type Start: 10-27-2024 Medicare Annual Well ness (AWV) Medicare Annual Wellness (AWV) [facility] Start: 10-26-2024 End: 10-26-2024 ambulatory 10/26/2024 11:00 AM EST Evaluation [facility] [address] [place] [address] Kevin Renteria, PT [address] [place] [address] [facility] Start: 10-25-2024 Tobacco Screening Tobacco Screening [facility] Start: 10-09-2024 End: 10-09-2024 Patient encounter procedure 10/09/2024 11:30 AM EST Office Visit [facility] [address] [place] [address] Mono Knowles MD [address] [place] [address] [facility] Start: 09-22-2024 End: 09-22-2025 [...] [address] [place] [address] Marylou Larry PA [address] [place] [address] [facility] Start: 09-18-2024 End: 09-18-2024 Patient encounter procedure 09/18/2024 9:00 AM EST Office Visit [facility] [address] [place] [address] Mono Knowles MD [address] [place] [address] [facility] Start: 08-30-2024 End: 08-30-2024 Patient encounter procedure 08/30/2024 9:15 AM EST Office Visit [facility] [address] [place] [address] Mono Knowles MD [address] [place] [address] Arrived [facility] Comment on above: Arrived Start: 07-12-2024 End: 07-12-2024 Patient encounter procedure [facility] Comment on above: Arrived Start: 06-30-2024 End: 06-30-2024 Patient encounter procedure 06/30/2024 10:00 AM EDT Office Visit [facility] [address] [place] [address] Mono Knowles MD [address] [place] [address] [facility] Start: 06-26-2024 End: 06-26-2026 [...] [address] [place] [address] Mono Knowles MD [address] [place] [address] [facility] Start: 06-07-2024 End: 06-07-2024 Patient encounter procedure 06/07/2024 2:00 PM EDT Office Visit [facility] [address] [place] [address] Mono Knowles MD [address] [place] [address] [facility] Start: 05-25-2024 End: 05-25-2024 Patient encounter procedure 05/25/2024 11:00 AM EDT Office Visit [facility] [address] [place] [address] Mono Knowles MD [address] [place] [address] [facility] Start: 05-24-2024 End: 05-24-2024 Patient encounter procedure 05/24/2024 9:00 AM EDT Office Visit [facility] [address] [place] [address] Yvette Thornton, DIA [address] [place] [address] Arrived [facility] Comment on above: Arrived Start: 05-14-2024 Influenza vaccination [facility] Start: 05-10-2024 End: 05-10-2024 Patient encounter procedure 05/10/2024 10:15 AM EDT Office Visit [facility] [address] [place] [address] Mono Knowles MD [address] [place] [address] Arrived [facility] Comment on above: Arrived Start: 02-04-2024 Medicare Annual Well ness (AWV) Medicare Annual Wellness (AWV) [facility] Start: 01-03-2024 End: 01-03-2024 Patient encounter procedure 01/03/2024 9:30 AM EDT Office Visit [facility] [address] [facility] [address] [place] [address] Mono Knowles MD [address] [facility] [address] [place] [address] [facility] Start: 12-09-2023 End: 12-09-2023 Patient encounter procedure 12/09/2023 8:30 AM EDT Office Visit [facility] [address] [place] [address] Racheal Chi MD [address] [place] [address] Adrian Son MD [address] [facility] [place] [address] [facility] Start: 11-26-2023 End: 11-26-2023 Patient encounter procedure 11/26/2023 11:15 AM EDT Office Visit [facility] [address] [place] [address] Racheal Chi MD [address] [facility] [place] [address] [facility] Start: 11-17-2023 End: 11-17-2023 Patient encounter procedure 11/17/2023 11:15 AM EST Office Visit [facility] [address] [place] [address] Racheal Chi MD [address] [place] [address] Priyanka Carbajal MD [address] [place] [address] [facility] Start: 10-27-2023 End: 10-27-2024 Comprehensive metabolic 2000 panel - Serum or Plasma Comprehensive metabolic panel Lab Routine Wellness examination 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) Expected: 10/27/2023 (Approximate), Expires: 10/27/2024 [facility] Comment on above: Expected: 10/27/2023 (Approximate), Expires: 10/27/2024 Start: 10-27-2023 End: 10-27-2024 Lipid 1996 panel - Serum or Plasma Lipid panel Lab Routine Wellness examination 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) Expected: 10/27/2023 (Approximate), Expires: 10/27/2024 [facility] Comment on above: Expected: 10/27/2023 (Approximate), Expires: 10/27/2024 Start: 10-27-2023 End: 10-27-2024 TSH W/REFLEX TO FT4 TSH W/REFLEX TO FT4 Lab Routine Wellness examination 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) Expected: 10/27/2023 (Approximate), Expires: 10/27/2024 [facility] Comment on above: Expected: 10/27/2023 (Approximate), Expires: 10/27/2024 Start: 10-27-2023 End: 10-27-2023 Patient encounter procedure 10/27/2023 9:15 AM EST Office Visit [facility] [address] [facility] [address] [place] [address] Mono Knowles MD [address] [facility] [address] [place] [address] Arrived [facility] Comment on above: Arrived Start: 10-22-2023 COVID-19 Vaccine () COVID-19 Vaccine ( season) [facility] Start: 10-19-2023 Adult BMI Screening Adult BMI Screen ing [facility] Start: 10-19-2023 Tobacco Screening Tobacco Screening [facility] Start: 09-30-2023 End: 09-30-2023 Patient encounter procedure 09/30/2023 9:30 AM EST Office Visit [facility] [address] [place] [address] Racheal Chi MD [address] [place] [address] [facility] Start: 05-14-2023 COVID-19 Vaccine ( season) COVID-19 Vaccine ( season) [facility] Start: 05-14-2023 Influenza vaccination Influenza Vacc ine [facility] Start: 11-27-2021 DTaP,Tdap and Td Vac cines (2 - Td or Tdap) DTaP,Tdap and Td Vaccines (2 - Td or Tdap) [facility] Start: 12-01-2011 Abdominal aortic ane urysm screening Abdominal Aortic Aneurysm (AAA) Screen [facility] [employer] Start: 12-01-2011 Fall Risk Screening Fall Risk Screen ing [facility] [employer] [facility] Start: 1964 Adult BMI Follow Up Plan Adult BMI F ollow Up Plan [facility] Start: 1958 Depression Screening Depression Scre ening [facility] [employer] [facility] Start: 1945 Medicare Annual Well ness Visit Medicare Annual Wellness Visit [facility] CBC W Auto Different ial panel - Blood CBC and differential Lab Routine Wellness examination 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 ([facility]/HCC) Ordered: 10/27/2023 [facility] Work Phone: Comment on above: Ordered: 10/27/2023 End: 08-24-2025 Lead, blood Lead, blood Lab Routine Elevated blood lead level 1 Occurrences starting 08/24/2024 until 08/24/2025 [facility] Work Phone: Comment on above: 1 Occurrences starti ng 08/24/2024 until 08/24/2025 XR Chest 2 Views XR chest 2 view s Imaging Routine Subacute cough Ordered: 05/10/2024 [facility] Work Phone: Comment on above: Ordered: 05/10/2024 Immunizations Immunization Date Immunization Notes Care Provider Fa cili 05-17-2024 influenza, high dose seasonal, preservative-free Karol Wednesday [employer]OUSING INSPECTOR Work Phone: [facility] 05-17-2024 influenza virus vacc ine, unspecified formulation Summer Kay MARK [facility] 11-17-2023 ABRYSVO - Respirator y syncytial virus (RSV), vaccine, bivalent, protein subunit RSV prefusion F, diluent reconstituted, 0.5 mL, PF Mono Knowles MD Work Phone: [facility] 07-12-2023 Influenza, High-dose Seasonal, Quadrivalent, Preservative Free Mono Knowles MD Work Phone: [facility] 07-12-2023 influenza virus vacc ine, unspecified formulation Christin Bazzi RN [facility] 12-22-2022 zoster vaccine recombinant Mono Knowles MD Work Phone: [facility] 06-17-2022 Influenza, High-dose Seasonal, Quadrivalent, Preservative Free Mono Knowles MD Work Phone: [facility] 06-17-2022 influenza virus vacc ine, unspecified formulation Audra Bowen [employer]SE [employer]RY RN Work Phone: [facility] 06-18-2021 Influenza, High-dose Seasonal, Quadrivalent, Preservative Free Mono Knowles MD Work Phone: [facility] 08-01-2020 zoster vaccine recombinant Mono Knowles MD Work Phone: [facility] 05-30-2020 influenza, high dose seasonal, preservative-free Mono Knowles MD Work Phone: [facility] 06-14-2019 influenza, high dose seasonal, preservative-free Mono Knowles MD Work Phone: [facility] 09-09-2018 influenza, seasonal, injectable, preservative free Mono Knowles MD Work Phone: [facility] 01-31-2018 pneumococcal polysaccharide vaccine, 23 valent Mono Knowles MD Work Phone: [facility] 06-23-2017 influenza, high dose seasonal, preservative-free Mono Knowles MD Work Phone: [facility] 05-14-2016 seasonal influenza, intradermal, preservative free Mono Knowles MD Work Phone: [facility] 10-04-2015 influenza, injectabl e, quadrivalent, preservative free Mono Knowles MD Work Phone: [facility] 07-15-2015 seasonal influenza, intradermal, preservative free Mono Knowles MD Work Phone: [facility] 04-22-2015 pneumococcal conjuga te vaccine, 13 valent Mono Knowles MD Work Phone: [facility] 11-28-2011 tetanus toxoid, redu ria diphtheria toxoid, and acellular pertussis vaccine, adsorbed Mono Knowles MD Work Phone: [facility] Healthcare Payers Date Payer Category Payer Medicare (Managed Care) [facility] [id number] 2019 Medicare [id number] 2019 Medicare HMO [employer] [id number] 2019 Medicare [id number] 2017 Medicaid [id number]. [id number] 2017 Medicaid [id number] 1959 Self-pay 1945 Unknown [id number] 2.16.840.1.233031.3.579.2. 593 1946 Unknown [id number] 2.16.840.1.835073.3.579.2. 1259 1946 Unknown [id number] 2.16.840.1.643095.3.579.2. 1259 1946 Unknown [id number] 2.840.1.250611.3.579.2. 1259 1946 Unknown [id number] 2.16.840.1.922795.3.579.2. 1259 1946 Unknown [id number] 2.16.840.1.835089.3.579.2. 1259 1946 Unknown [id number] 2.16.840.1.408211.3.579.2. 1259 1946 Unknown [id number] 2.840.1.596977.3.579.2. 1259 1946 Unknown [id number] 2.16.840.1.277577.3.579.2. 1259 1946 Unknown [id number] 2.16.840.1.657716.3.579.2. 1259 1946 Unknown [id number] 2.16.840.1.750899.3.579.2. 1259 1946 Unknown [id number] 2.16.840.1.048036.3.579.2. 1259 1946 Unknown [id number] 2.16.840.1.147524.3.579.2. 1259 1946 Unknown [id number] 2.16840.1.942326.3.579.2. 1259 1946 Unknown [id number] 2.16.840.1.684550.3.579.2. 1259 1946 Unknown [id number] 2.16.840.1.157301.3.579.2. 1259 1946 Unknown [id number] 2.16.840.1.988569.3.579.2. 1259 1946 Unknown [id number] 2.16.840.1.466469.3.579.2. 125 1946 Unknown [id number] 2.16840.1.552177.3.579.2. 1286 1946 Unknown [id number] 2.16840.1.791269.3.579.2. 1286 1946 Unknown [id number] 2.16840.1.430824.3.579.2. 128 1946 Unknown [id number] 2.16840.1.996927.3.579.2. 1286 1946 Unknown [id number] 2.16840.1.465478.3.579.2. 128 1946 Unknown [id number] 2.16840.1.107564.3.579.2. 128 1946 Unknown [id number] 2.16840.1.859475.3.579.2. 1286 Social History Date Type Detail Facility Start: 01-19-2022 End: 02-02-2023 Tobacco smoking status SDIS Ex-smoker [facility] Start: 09-13-2007 End: 09-13-2011 History of tobacco use Current smoker [facility] Start: 09-13-2007 End: 09-13-2011 History of tobacco use Cigarette Smoker [facility] Start: 01-19-2022 End: 02-02-2023 Tobacco use and exposure Smokeless tobacco non-user [facility] Start: 07-26-2023 End: 03-07-2025 Alcohol intake Lifetime non-drinker (finding) [facility] Start: 09-24-2020 End: 06-04-2023 History of Social function [facility] Start: 09-24-2020 End: 06-04-2023 Humiliation, Afraid, [...] To some extent [facility] (I/We) worried whesusy er (my/our) food would run out before (I/we) got money to buy more. Never true [facility] Start: 02-02-2023 Tobacco Comment Quit smoking 1 0 years ago [facility] Start: 02-02-2023 Alcohol Comment Caffeine 1-2 cups/da y [facility] Start: 1945 Sex Assigned At Not on file [facility] Start: 10-20-2022 End: 05-24-2025 Alcohol intake Current non-drinker of alcohol (finding) [facility] Start: 04-18-2015 Sex Male (finding) [facility] How often do you nee [...] Health Quest ionnaire 2 item (PHQ-2) [Reported] [facility] 02-28-2025 Patient Health Quest ionnaire 2 item (PHQ-2) [Reported] [facility] Clinical Notes 10-27-2023 to 05-26-2025 Telephone Encounter - Shai Nelson RN - 05/26/2025 1:30 PM EDTTelephone Encounter - Shai Nelson RN - 05/26/2025 1:30 PM EDTTelephone Encounter - Amparo Valle - 05/26/2025 12:36 PM EDT Note Date & Type Note Facility 05-26-2025 Miscellaneous Notes NATHAN Vick from [facility] requesting medical records from ER visit 05/24/25. Epic accessed and records faxed to [phone] documented in this encounter [facility] 05-26-2025 Telephone encounter Note NATHAN Vick from [facility] requesting medical records from ER visit 05/24/25. Epic accessed and records faxed to [phone] [facility] 05-26-2025 Miscellaneous Notes Contract: [facility] [phone] [facility] [phone] FAX Attn Nicanor Re all records from visit at [facility] 05/25 Records sent to Attn: Nicanor for all records from visit to ED [facility] 05/24 documented in this encounter [facility] 05-26-2025 Telephone encounter Note Contract: [facility] [phone] [facility] [phone] FAX Attn Nicanor Re all records from visit at [facility] 05/25 [facility] 05-26-2025 Telephone encounter Note Records sent to Attn: Nicanor for all records from visit to ED [facility] 05/24 [facility] 05-15-2025 Telephone encounter Note Xanax already sent. [facility] 05-15-2025 Miscellaneous Notes Xanax already sent. documented in this encounter [facility] 05-15-2025 Telephone encounter Note OARRS reviewed, Rx sent into patient's pharmacy. [facility] 05-15-2025 Miscellaneous Notes OARRS reviewed, Rx sent into patient's pharmacy. documented in this encounter [facility] 05-09-2025 Telephone encounter Note OARRS reviewed, Rx sent into patient's pharmacy. [facility] 05-09-2025 Miscellaneous Notes OARRS reviewed, Rx sent into patient's pharmacy. HYDROcodone-acetaminophen ([place]) 10-325 MG tablet [facility] [place] documented in this encounter [facility] 05-09-2025 Telephone encounter Note HYDROcodone-acetaminophen ([place]) 10-325 MG tablet [facility] [place] [facility] 04-11-2025 Telephone encounter Note OARRS reviewed, Rx sent into patient's pharmacy. [facility] 04-11-2025 Miscellaneous Notes OARRS reviewed, Rx sent into patient's pharmacy. documented in this encounter [facility] 04-10-2025 Telephone encounter Note OARRS reviewed, Rx sent into patient's pharmacy. [facility] 04-10-2025 Miscellaneous Notes OARRS reviewed, Rx sent into patient's pharmacy. HYDROcodone-acetaminophen ([place]) 10-325 MG tablet [facility] [place] documented in this encounter [facility] 04-10-2025 Telephone encounter Note HYDROcodone-acetaminophen ([place]) 10-325 MG tablet [facility] [place] [facility] 03-14-2025 Telephone encounter Note Received fax from [employer]. Last Sutherlin Rx was post dated and filled on 03/13. The Rx recently sent will before it is due. Will let it and send in a new script once the patient is due for the Sutherlin to be refilled. [facility] 03-14-2025 Miscellaneous Notes Received fax from [employer]. Last S[place]lin Rx was post dated and filled on 03/13. The Rx recently sent will before it is due. Will let it and send in a new script once the patient is due for the S[place]lin to be refilled. documented in this encounter [facility] 03-14-2025 Telephone encounter Note Carafate sent. [facility] 03-14-2025 Miscellaneous Notes Carafate sent. documented in this encounter [facility] 03-13-2025 Telephone encounter Note OARRS reviewed, Rx sent into patient's pharmacy. [facility] 03-13-2025 Miscellaneous Notes OARRS reviewed, Rx sent into patient's pharmacy. documented in this encounter [facility] 03-07-2025 History of Present illness Narrative Images [...] AT BEDTIME 30 tablet 0 [DISCONTINUED] HYDROcodone-acetaminophen ([place]) 10-325 MG tablet Take 1 tablet by [...] chronic kidney disease (CMS-HCC) 09/20/2020 Antral ulcer 2016 Anxiety Arthritis CAD [...] Cervical stenosis of spinal canal - HYDROcodone-acetaminophen ([place]) 10-325 MG tablet; Take 1 tablet by [...] for Routine F/U. documented in this encounter [facility] 02-28-2025 History of Present illness Narrative Images from the original note were not included. Subjective Patient ID: Hakeme Escobedo is a 79 y.o. male who [...] wheezing. EKG was done on 09/11/24 at [facility]. Over the past 2 weeks, how often [...] mouth at bedtime 100 capsule 3 HYDROcodone-acetaminophen ([place]) 10-325 MG tablet Take 1 tablet by [...] superimposed on stage 3a chronic kidney disease ([facility]-HCC) 09/20/2020 Antral ulcer 2016 Anxiety Arthritis CAD [...] fail to improve. documented in this encounter [facility] 02-14-2025 Telephone encounter Note OARRS reviewed, Rx sent into patient's pharmacy. [facility] 02-14-2025 Miscellaneous Notes OARRS reviewed, Rx sent into patient's pharmacy. documented in this encounter [facility] 02-12-2025 History of Present illness Narrative Images from the original note were not included. HPI Med Refill Additional comments: Hydrocodone, meclizine, colchicine--[facility] [place] Follow-up Additional comments: Pain/controlled med Results Additional comments: Labs 11/2024 Last edited by Odalys Villagomez LPN on 02/12/2025 9:07 AM. Subjective Patient ID: Hakeem Escobedo is a 79 y.o. male who presents for Med Refill (Hydrocodone, meclizine, colchicine--[facility] [place]), Follow-up (Pain/controlled med), Hypertension, and Results (Labs [...] and Wednesday. 30 capsule 0 [DISCONTINUED] HYDROcodone-acetaminophen ([place]) 10-325 MG tablet Take 1 tablet by [...] on stage 3a chronic kidney disease (HCC) ([facility]) 09/20/2020 Antral ulcer 2016 Anxiety Arthritis CAD (coronary artery disease) ([facility]) Colon polyp 2019 Confusion 09/16/2020 Constipation 09/28/2017 COVID-19 09/20/2020 Diverticulosis 2019 Gastritis 2019 Hiatal hernia 2019 History of gastric ulcer Hypertension ([facility]) Injury to penis 06/06/2021 Traumatic rhabdomyolysis ([facility]) 09/20/2020 Tubulovillous adenoma polyp of colon [...] Cervical stenosis of spinal canal - HYDROcodone-acetaminophen ([place]) 10-325 MG tablet; Take 1 tablet by [...] Controlled Med Review. documented in this encounter [facility] 01-31-2025 Telephone encounter Note Ambien sent to [facility] [place] [facility] 01-31-2025 Miscellaneous Notes Ambien sent to [facility] [place] documented in this encounter [facility] 01-08-2025 Telephone encounter Note HYDROcodone-acetaminophen ([place]) 10-325 MG tablet [facility] [place] [facility] 01-08-2025 Miscellaneous Notes HYDROcodone-acetaminophen ([place]) 10-325 MG tablet [facility] [place] documented in this encounter [facility] 12-06-2024 History of Present illness Narrative Images from the original note were not included. HPI Med Refill Additional comments: Hydrocodone-- [facility] [place] Last edited by Odalys Villagomez LPN on 12/06/2024 9:15 AM. Subjective : Chief Complaint: Hakeem Escobedo is an 79 y.o. male here for [...] mouth at bedtime 100 capsule 3 HYDROcodone-acetaminophen ([place]) 10-325 MG tablet Take 1 tablet by [...] at all Patient Health Questionnaire-2 Score: 0 Ramírez Fall Risk History of Falling, Immediate or [...] Do you have a medical power of fall intern?: No Objective : BP 128/76 Pulse 62 [...] Cervical stenosis of spinal canal - HYDROcodone-acetaminophen ([place]) 10-325 MG tablet; Take 1 tablet by [...] hemorrhage Benign essential hypertension (CMS/HCC) 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) Stented coronary artery Right lumbar radiculopathy Cerebrovascular accident (CVA), unspecified mechanism (CMS/HCC) No orders of the defined types were placed in this encounter. Electronically signed by Mono Knowles MD on December 06, 2024 documented in this encounter [facility] 12-04-2024 Miscellaneous Notes Called patient to remind them to bring their most current copy of their medication list with them to their appt. Unable to reach due to voice mail not set up. [facility] Telephone encounter Note Called patient to remind them to bring their most current copy of their medication list with them to their appt. Unable to reach due to voice mail not set up. [facility] History of Present illness Narrative Images from the original note were not included. Reason for Appointment: EMG Patient: Hakeem Escobedo : 1945 EMG Computer: [employer] Referring Physician: Dr. Don Fenton EMG: [employer] cash analyst: Malou Novak CMA Office Location: [place] Reason for EMG: c/o balance difficulty. Difficulty swallowing. Denies symptoms in the arms. No hx of DM, takes Eliquis. Comments: Procedure explained to the patient who expressed understanding. documented in this encounter [facility] 11-09-2024 Telephone encounter Note HYDROcodone-acetaminophen ([place]) 10-325 MG tablet [place] [facility] 11-09-2024 Miscellaneous Notes HYDROcodone-acetaminophen ([place]) 10-325 MG tablet [place] documented in this encounter [facility] 11-08-2024 History of Present illness Narrative Images from the original note were not included. Chief complaint: Spinal stenosis and language disturbance Subjective Hakeem Escobedo, 78 y.o., male Patient presents today for a neurologic consult at the request of Dr. Knowles for CVA, spinal stenosis. He is accompanied by his life partner. Patient is a resident at [facility] in [place]. Patient has his stroke May 192023. His [...] on stage 3a chronic kidney disease (HCC) ([facility]) 09/20/2020 Antral ulcer 2016 Anxiety Arthritis CAD (coronary artery disease) ([facility]) Colon polyp 2019 Confusion 09/16/2020 Constipation 09/28/2017 COVID-19 09/20/2020 Diverticulosis 2019 Gastritis 2019 Hiatal hernia 2019 History of gastric ulcer Hypertension ([facility]) Injury to penis 06/06/2021 Traumatic rhabdomyolysis ([facility]) 09/20/2020 Tubulovillous adenoma polyp of colon 2019 Past Surgical History: Procedure Laterality Date CATARACT EXTRACTION Right 01/2021 CERVICAL DISCECTOMY 08/16/2017 C4-C5 COLONOSCOPY 2011 COLONOSCOPY 01/27/2019 Colonoscopy & EGD[place] COLONOSCOPY W/ POLYPECTOMY 08/2020 [place] (tubulovillous adenoma) [...] , wrist extensors , wrist flexor , senior marketing associate strength 5/5. LUE Strength deltoid , biceps , triceps , wrist extensors , wrist flexor , senior marketing associate strength 5/5. RLE Strength illopsoas, quadriceps, tibialis [...] reflex 2+ . Ferrari's sign negative. Coordination: [id number] testing and rapid alternating movements are normal Gait: Patient ambulates with a cane Review and summary of old records: Patient was seen in the emergency department at [place] in October 06, 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 However, the patient's reflexes do seem [...] referral to tertiary care center such as [facility] for further evaluation treatment depending on results [...] and return instructions documented in this encounter [facility] 11-02-2024 Telephone encounter Note Rx was sent. [facility] 11-02-2024 Miscellaneous Notes Rx was sent. Pt states that he is wheezing really bad. He needs something for his chest. They'd like it sent to jessica Caupto documented in this encounter [facility] 11-01-2024 Telephone encounter Note Pt states that he is wheezing really bad. He needs something for his chest. They'd like it sent to jessica Caputo [facility] 10-31-2024 Telephone encounter Note NCNS for PT Eval; 3 attempt. [facility] 10-31-2024 Miscellaneous Notes NCNS for PT Eval; 3 attempt. Tried to contact to remind / confirm PT Eval today that is on its' 3rd attempt; 2/3 & 2/13 both were cx. It rang into voicemail and indicated not set up; unable to contact. documented in this encounter [facility] 10-31-2024 Telephone encounter Note Tried to contact to remind / confirm PT Eval today that is on its' 3rd attempt; 2/3 & 2/ both were cx. It rang into voicemail and indicated not set up; unable to contact. [facility] 10-25-2024 Telephone encounter Note OARRS reviewed, Rx sent into patient's pharmacy. [facility] 10-25-2024 Miscellaneous Notes OARRS reviewed, Rx sent into patient's pharmacy. documented in this encounter [facility] 10-21-2024 Miscellaneous Notes OV 12/09/23 documented in this encounter [facility] 10-21-2024 Telephone encounter Note OV 12/09/23 [facility] 10-19-2024 Telephone encounter Note Contacted re: SHANNAN for PT Eval and he rs 2/13 @ 11 w/ Kevin Renteria, PT. [facility] 10-19-2024 Miscellaneous Notes Contacted re: SHANNAN for PT Eval and he rs 2/13 @ 11 w/ Kevin Renteria, PT. Tried to contact re: SHANNAN for his PT Eval; unable to lm re: no voicemail set-up. documented in this encounter [facility] 10-16-2024 Telephone encounter Note Tried to contact re: SHANNAN for his PT Eval; unable to lm re: no voicemail set-up. [facility] 10-09-2024 History of Present illness Narrative Images from the original note were not included. HPI Follow-up Additional comments: Pain med Med Refill Additional comments: Hydrocodone--[facility] [place] observation follow up Additional comments: Pt was admitted to [facility] 10/06/24 for observation for leg weakness they discharged him home 10/07/24 no med changes they advised pt he may need an MRI discuss changing referrals Additional comments: Pt was referred to neuro through [facility] and speech therapy through [facility] [place] he does not want to use any [facility] providers he would like new referrals sent to use [facility] Last edited by Odalys Villagomez LPN on 10/09/2024 11:25 AM. Subjective Patient ID: Hakeem Escobedo is a 78 y.o. male who presents for Follow-up (Pain med), Dysphagia, Med Refill (Hydrocodone--[facility] [place]), observation follow up (Pt was admitted to [facility] 10/06/24 for observation for leg weakness they discharged him home 10/07/24 no med changes they advised pt he may need an MRI), and discuss changing referrals (Pt was referred to neuro through [facility] and speech therapy through [facility] he does not want to use any [facility] providers he would like new referrals sent to use [facility]). Subjective Patient here for follow-up of [...] at bedtime 30 tablet 2 [DISCONTINUED] HYDROcodone-acetaminophen ([place]) 10-325 MG tablet Take 1 tablet by [...] on stage 3a chronic kidney disease (HCC) ([facility]) 09/20/2020 Antral ulcer 2016 Anxiety Arthritis CAD (coronary artery disease) ([facility]) Colon polyp 2019 Confusion 09/16/2020 Constipation 09/28/2017 COVID-19 09/20/2020 Diverticulosis 2019 Gastritis 2019 Hiatal hernia 2019 History of gastric ulcer Hypertension ([facility]) Injury to penis 06/06/2021 Traumatic rhabdomyolysis ([facility]) 09/20/2020 Tubulovillous adenoma polyp of colon [...] Cervical stenosis of spinal canal - HYDROcodone-acetaminophen ([place]) 10-325 MG tablet; Take 1 tablet by mouth every 6 (six) hours if needed for severe pain Spinal stenosis of lumbar region with neurogenic claudication - Ambulatory referral to Physical Therapy; Future - Ambulatory referral to Neurology; Future Follow up in about 6 weeks (around 11/20/2024) for Routine F/U. documented in this encounter [facility] 09-22-2024 History of Present illness Narrative Images from the original note were not included. HPI ER Follow-up Additional comments: Went to er due to weakness 09/14/24 [place] [facility] Last edited by Summer Kay MA on 09/22/2024 7:29 AM. Subjective Patient ID: Hakeem Escobedo is a 78 y.o. male who presents for ER Follow-up ([facility] Pt went to Er due to weakness dizziness and being unbalanced , they did do labs, and DI testing Pt girlfriend stated he is needing labwork to see how his kidneys are doing , this was found at [facility] when they did CT they stated he [...] Flowsheet Row Patient Outreach from 09/19/[address] [facility] with Karol Wednesday, WEATHERIZATION AND HOUSING INSPECTOR Hospital Information ED, Hospital or Nursing Home Facility Discharge? ED Patient has been contacted within 1 week of being seen in the ED Yes Diagnosis generalized weakness Discharge Date 09/14/24 Discharged To: Home Setting Discharge Hospital [facility] Engagement Call Start Time 810 Admission Date 09/14/24 Medications Discharge medications reviewed [...] mouth at bedtime 100 capsule 3 HYDROcodone-acetaminophen ([place]) 10-325 MG tablet Take 1 tablet by [...] before bedtime. 60 tablet 3 [DISCONTINUED] HYDROcodone-acetaminophen ([place]) 10-325 MG tablet Take 1 tablet by [...] 2016 Anxiety Arthritis CAD (coronary artery disease) ([facility]) Colon polyp 2019 Confusion 09/16/2020 Constipation 09/28/2017 COVID-19 09/20/2020 Diverticulosis 2019 Gastritis 2019 Hiatal hernia 2019 History of gastric ulcer Hypertension ([facility]) Injury to penis 06/06/2021 Traumatic rhabdomyolysis ([facility]) 09/20/2020 Tubulovillous adenoma polyp of colon 2019 [...] Appointment As Scheduled. documented in this encounter [facility] 09-14-2024 Note XR CHEST 1 VW CLINICAL INFORMATION: . weakness. TECHNIQUE/PROCEDURE: Chest radiograph, single view. COMPARISON: Prior chest radiographs, most recently 08/10/2024 FINDINGS: No tracheal deviation. Cardiac and mediastinal contours are normal. No pneumothorax or free air. No pleural effusion or focal consolidation. IMPRESSION: * No radiographic evidence of acute cardiopulmonary disease. Finalized by William Javier MD on 09/14/2024 12:14 PM [facility] 08-31-2024 Telephone encounter Note Rx sent. [facility] 08-31-2024 Miscellaneous Notes Rx sent. documented in this encounter [facility] 08-31-2024 History of Present illness Narrative Peace called this morning. Pt is wheezing and coughing and was up all night coughing. She is asking if you could send something in for pt to help with this wheezing and coughing issue. [facility] in [place]. He does not want to go to ER. She states pt talked with you about it at his appt the other day. documented in this encounter [facility] 08-30-2024 History of Present illness Narrative Images from the original note were not included. HPI Follow-up Additional comments: Recent hospitalization 08/10/24-08/12/24 at [facility] dx: CVA discharged home advised to stop ASA Med Refill Additional comments: Gabapentin--[facility] [place] Results Additional comments: Both MRI's Last edited by Odalys Villagomez LPN on 08/30/2024 9:28 AM. Subjective Patient ID: Hakeem Escobedo is a 78 y.o. male who presents for Follow-up (Recent hospitalization 08/10/24-08/12/24 at [facility] dx: CVA discharged home advised to stop ASA), Med Refill (Gabapentin--[facility] [place]), Dysphagia, and Results (Both MRI's). Flowsheet Row Patient Outreach from 08/15/[address] [facility] with Karol Wednesday, WEATHERIZATION AND HOUSING INSPECTOR Hospital Information ED, Hospital or Nursing Home Facility Discharge? Hospital Patient has been contacted within two business days of discharge Yes Diagnosis CVA Discharge Date 08/12/24 Discharged To: Home Setting Discharge Hospital [facility] Engagement Call Start Time 904 Admission Date [...] MR brain without contrast. Call End Time 938 Z Pt states when he lays flat [...] mouth at bedtime 100 capsule 3 HYDROcodone-acetaminophen ([place]) 10-325 MG tablet Take 1 tablet by [...] INSTRUCTIONS 21 tablet 0 [DISCONTINUED] nystatin (Mycostatin) [id number] UNIT/ML suspension SWISH AND SWALLOW FIVE MILLILITERS [...] on stage 3a chronic kidney disease (HCC) ([facility]) 09/20/2020 Antral ulcer 2016 Anxiety Arthritis CAD (coronary artery disease) ([facility]) Colon polyp 2019 Confusion 09/16/2020 Constipation 09/28/2017 COVID-19 09/20/2020 Diverticulosis 2019 Gastritis 2019 Hiatal hernia 2019 History of gastric ulcer Hypertension ([facility]) Injury to penis 06/06/2021 Traumatic rhabdomyolysis ([facility]) 09/20/2020 Tubulovillous adenoma polyp of colon [...] for Routine F/U. documented in this encounter [facility] 08-24-2024 Miscellaneous Notes Patient was admitted under our service at [facility] the week of August 10. At [...] the recommendation for a repeat lab order. Reconciliation Machine Operator also attempted to contact the patient's PC Dr Mono Knowles at [phone] who is a provider at [facility]. The phone rang and then it stated the number that you are calling is not in service at this time . Emergency contact listed is his spouse and the same phone number is listed for her also. Thank you so much for doing this. documented in this encounter [facility] [employer] [facility] 08-24-2024 Telephone encounter Note Patient was admitted under our service at [facility] the week of August 10. At [...] follow up with his PCP for this. [facility] [employer] 08-24-2024 Telephone encounter Note Attempted to contact the patient, phone rang once and then is stated that voicemail box has not been set up . Letter has been composed and mailed to the patient informing him of his results and the recommendation for a repeat lab order. Reconciliation Machine Operator also attempted to contact the patient's PC Dr Mono Knowles at [phone] who is a provider at [facility]. The phone rang and then it stated the number that you are calling is not in service at this time . Emergency contact listed is his spouse and the same phone number is listed for her also. [facility] 08-24-2024 Telephone encounter Note Thank you so much for doing this. [facility] 08-17-2024 Telephone encounter Note OARRS reviewed, Rx sent into patient's pharmacy. [facility]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 [place] [address] PCP - Jonathan FLORES 09/13/21 Mono Knowles MD [address] [place] [address] PCP - General Internal Medicine 03/01/23 Summer Velazquez, JOAN [facility] 10/20/24 Mechanical Tech Relationship Specialty Start Date End Date Mono Knowles MD [address] [place] [address] PCP Jaime Castillo MA 09/13/21 Mono Knowles MD [address] [place] [address] PCP - General Internal Medicine 03/01/23 Summer Velazquez, RN [facility] 10/20/24 Mechanical Tech Relationship Specialty Start Date End Date Mono Knowles MD [address] [place] [address] PCP - General 10/06/24 Mechanical Tech Relationship Specialty Start Date End Date Mono Knowles MD [address] [place] [address] PCP - Jonathan FLORES 09/13/21 Mono Knowles MD [address] [place] [address] PCP - General Internal Medicine 03/01/23 Ruth Johnston LPN 11/28/24 Mechanical Tech Relationship Specialty Start Date End Date Mono Knowles MD [address] [place] [address] PCP - Jonathan FLORES 09/13/21 Mono Knowles MD [address] [place] [address] PCP - General Internal Medicine 03/01/23 Ruth Johnston LPN 11/28/24 Mechanical Tech Relationship Specialty Start Date End Date Mono Knowles MD [address] [place] [address] PCP - Jonathan FLORES 09/13/21 Mono Knowles MD [address] [place] [address] PCP - General Internal Medicine 03/01/23 Ruth Johnston LPN 11/28/24 Mechanical Tech Relationship Specialty Start Date End Date Mono Knowles MD [address] [place] [address] PCP - Jonathan FLORES 09/13/21 Mono Knowles MD [address] [place] [address] PCP - General Internal Medicine 03/01/23 Ruth Johnston LPN 11/28/24 Mechanical Tech Relationship Specialty Start Date End Date Mono Knowles MD [address] [place] [address] PCP - Jonathan FLORES 09/13/21 Mono Knowles MD [address] [place] [address] PCP - General Internal Medicine 03/01/23 Ruth Johnston LPN 11/28/24 Mechanical Tech Relationship Specialty Start Date End Date Mono Knowles MD [address] [place] [address] PCP - Jonathan FLORES 09/13/21 Mono Knowles MD [address] [place] [address] PCP - General Internal Medicine 03/01/23 Ruth Johnston LPN [address] [place] [address] 11/28/24 Mechanical Tech Relationship Specialty Start Date End Date Mono Knowles MD [address] [place] [address] PCP - Jonathan FLORES 09/13/21 Mono Knowles MD [address] [place] [address] PCP - General Internal Medicine 03/01/23 Ruth Johnston LPN [address] [place] [address] 11/28/24 Mechanical Tech Relationship Specialty Start Date End Date Mono Knowles MD [address] [place] [address] PCP - Jonathan FLORES 09/13/21 Mono Knowles MD [address] [place] [address] PCP - General Internal Medicine 03/01/23 Ruth Johnston LPN [address] [place] [address] 11/28/24 Mechanical Tech Relationship Specialty Start Date End Date Mono Knowles MD [address] [place] [address] PCP - Jonathan FLORES 09/13/21 Mono Knowles MD [address] [place] [address] PCP - General Internal Medicine 03/01/23 Ruth Johnston LPN [address] [place] [address] 11/28/24 Mechanical Tech Relationship Specialty Start Date End Date Mono Knowles MD [address] [place] [address] PCP - Jonathan FLORES 09/13/21 Mono Knowles MD [address] [place] [address] PCP - General Internal Medicine 03/01/23 Ruth Johnston LPN [address] [place] [address] 11/28/24 Mechanical Tech Relationship Specialty Start Date End Date Mono Knowles MD [address] [place] [address] PCP - Jonathan FLORES 09/13/21 Mono Knowles MD [address] [place] [address] PCP - General Internal Medicine 03/01/23 Ruth Johnston LPN [address] [place] [address] 11/28/24 Mechanical Tech Relationship Specialty Start Date End Date Mono Knowles MD [address] [place] [address] PCP - Jonathan FLORES 09/13/21 Mono Knowles MD [address] [place] [address] PCP - General Internal Medicine 03/01/23 Ruth Johnston LPN [address] [place] [address] 11/28/24 Mechanical Tech Relationship Specialty Start Date End Date Mono Konwles MD [address] [place] [address] PCP - Jonathan FLORES 09/13/21 Mono Knowles MD [address] [place] [address] PCP - General Internal Medicine 03/01/23 Ruth Johnston LPN [address] [place] [address] 11/28/24 Mechanical Tech Relationship Specialty Start Date End Date Mono Knowles MD [address] [place] [address] PCP - Jonathan FLORES 09/13/21 Mono Knowles MD [address] [place] [address] PCP - General Internal Medicine 03/01/23 Ruth Johnston LPN [address] [place] [address] 11/28/24 05/09/25 Mechanical Tech Relationship Specialty Start Date End Date Mono Knowles MD [address] [place] [address] PCP - Jonathan FLORES 09/13/21 Mono Knowles MD [address] [place] [address] PCP - General Internal Medicine 03/01/23 Mechanical Tech Relationship Specialty Start Date End Date Mono Knowles MD [address] [place] [address] PCP - General 10/06/24 Reason for Visit (unrecogniz ed section and [...] Med Refill 06/22/2024 Reason Comments Follow-up Admitted [facility] 06/21/24 dx: syncope,suspected cva .hypotension discharged home 06/22/24 no med changes made Med Refill Gabapentin.meclizine -- [facility] Reason Comments Results Stress test results Med Refill Gabapentin-- [facility] Reason Onset Date Comments Med Refill 07/12/2024 Reason Comments Med Refill Reason Onset Date Comments Med Refill 07/20/2024 Reason Comments Follow-up Recent hospitalizati on 08/10/24-08/12/24 at [facility] dx: CVA discharged home advised to [...] observation follow up Pt was admitted to [facility] 10/06/24 for observation for leg weakness they discharged him home 10/07/24 no med changes they advised pt he may need an MRI discuss changing referrals Pt was referr ed to neuro through [facility] and speech therapy through [facility] he does not want to use any [facility] providers he would like new referrals sent to use [facility] Reason Onset Date Comments [facility] PT Eval [...] Dysphagia Specialty Diagnoses / Procedures Referred By Contjohnny t Referred To Contact Otolaryngology Diagnoses Dysphagia, unspecified type Procedures [place] OFFICE/OUTPATIENT NEW HIGH MDM 60 MINUTES Mono Knowles MD [address] [facility] [address] [place] [address] Phone: tel: fax: Norma Jin MD [address] [facility] [address] [place] [address] Phone: tel: fax: Referral ID Status Reason Start Date Expiration Date V isits Requested Visits Authorized [id number] Closed Specialty Services Required 10/19/2024 04/17/2025 1 [...] Reason Onset Date Comments Med Refill 05/11/2025 Reason Onset Date Comments HIM 05/26/2025 FOR RECORDS PERTAINING TO PATIENTS WHO ARE [...] BE BASED ON THE PRIMARY CLINICAL RECORDS. [facility]. provides no warranty or guarantee of the accuracy or completeness of information in this document.
[2025-05-26 20:13] LABS: Glucose Urine UA NEGATIVE (NEGATIVE)
[2025-05-26] MEDS: ALPRAZOLAM 1 MG TABLET 0.5 MG PO (21:10)
[2025-05-26] MEDS: CARVEDILOL 25 MG TABLET PO (21:10)
[2025-05-26] MEDS: GABAPENTIN 300 MG CAPSULE PO (21:10)
[2025-05-26] MEDS: ACETAMINOPHEN 325 MG TABLET 650 MG PO (21:38)
[2025-05-27] VITALS (20 sets, daily range): BP systolic 114–135; BP diastolic 77–89; PULSE 57–88; TEMP 36.4–36.9; O2SAT 90–92
[2025-05-27 06:41] LABS: Hematocrit 41.1 % (42.0-54.0); Hemoglobin 13.4 g/dL (14.0-18.0); Immature Granulocytes Abs Auto 0.05 10^3/uL (0.00-0.03); Immature Granulocytes Pct Auto 0.8 % (0.0-0.5); Lymphocytes Absolute Auto 2.1 10^3/uL (1.2-3.8); Mean Corpuscular HGB Conc 32.6 g/dL (29.9-35.2); Mean Corpuscular Hemoglobin 29.3 pg (25.9-34.0); Mean Corpuscular Volume 89.9 fL (80.0-94.0); Platelet Count 164 10^3/uL (150-450); Red Blood Count 4.57 10^6/uL (4.70-6.10); White Blood Count 6.3 10^3/uL (4.0-11.0)
[2025-05-27 07:01] LABS: Anion Gap 13.3; Blood Urea Nitrogen 14.0 mg/dL (7.0-18.0); Calcium 8.6 mg/dL (8.5-10.1); Carbon Dioxide 27.7 mmol/L (21.0-32.0); Chloride 107 mmol/L (98-107); Cholesterol 98 mg/dL (<=200); Estimated GFR (African America >60 (>=60 mL/min/1.73m^2); Estimated GFR (Non-African Ame 50 (>=60 mL/min/1.73m^2); Glucose 95 mg/dL (74-106); HDL Cholesterol 46 mg/dL (40-60); Magnesium 2.0 mg/dL (1.8-2.4); Potassium 4.0 mmol/L (3.5-5.1); Sodium 144 mmol/L (136-145); Triglycerides 86 mg/dL (<=150); VLDL CHOLESTEROL 17.2 mg/dL
[2025-05-27] MEDS: PANTOPRAZOLE SODIUM 40 MG TABLET.DR PO (08:29)
[2025-05-27] MEDS: ALLOPURINOL 100 MG TABLET PO (08:29)
[2025-05-27] MEDS: ATORVASTATIN CALCIUM 20 MG TABLET PO (08:29)
[2025-05-27] MEDS: ALPRAZOLAM 0.5 MG TABLET PO ×2 (08:29→21:26)
[2025-05-27] MEDS: CLOPIDOGREL BISULFATE 75 MG TABLET PO (08:29)
[2025-05-27] MEDS: ENOXAPARIN SODIUM 40 MG/0.4 ML SYRINGE SUBQ (08:30)
--- NOTE | 2025-05-27 10:15 | XR_ITS ---
[place] [address] Patient Name: TAJ RING MRN: [id number] date: 1945 Sex: M Assigned Patient Location: [place] Current Patient Location: [place] Accession/Order Number: [id number] Exam Date: 05/27/2025 12:45 Report Date: 05/27/2025 14:32 At the request of: JOURDAN FAIRCHILD MD Procedure: XR lumbar spine min 4V History: Low back pain. Bilateral hip pain. A new onset. 3 views pelvis. Contrast in urinary bladder. Right proximal femur plate and screw fixation. No visualized hardware complication. Moderate bilateral hip degeneration greater on the left. Moderate left hip joint space narrowing. Subarticular sclerotic and cystic changes of hips. Mild SI joint degenerative change. Adequate alignment. 4 views lumbar spine. Straightening of lumbar lordosis. Minor L5-S1 degenerative anterolisthesis. Moderate L5-S1 disc space narrowing. Anterior endplate spurs. Extensive lower lumbar facet degeneration. No acute fracture. Decreased bony mineralization. XR/XR pelvis min 3V IMPRESSION: lumbar degeneration greatest in the lower lumbar facets. Moderate L5-S1 spondylosis. Impression dictated by: Jaime Hunter M.D. 05/27/2025 2:32 PM Dictation Location: [place] Electronically authenticated by: [id number] Y Date: 05/27/2025 14:32
--- NOTE | 2025-05-27 10:15 | XR_ITS ---
[place] [address] Patient Name: TAJ RING MRN: [id number] date: 1945 Sex: M Assigned Patient Location: MS Current Patient Location: MS Accession/Order Number: [id number] Exam Date: 05/27/2025 12:45 Report Date: 05/27/2025 14:32 At the request of: JOURDAN FAIRCHILD MD Procedure: XR lumbar spine min 4V History: Low back pain. Bilateral hip pain. A new onset. 3 views pelvis. Contrast in urinary bladder. Right proximal femur plate and screw fixation. No visualized hardware complication. Moderate bilateral hip degeneration greater on the left. Moderate left hip joint space narrowing. Subarticular sclerotic and cystic changes of hips. Mild SI joint degenerative change. Adequate alignment. 4 views lumbar spine. Straightening of lumbar lordosis. Minor L5-S1 degenerative anterolisthesis. Moderate L5-S1 disc space narrowing. Anterior endplate spurs. Extensive lower lumbar facet degeneration. No acute fracture. Decreased bony mineralization. XR/XR lumbar spine min 4V IMPRESSION: lumbar degeneration greatest in the lower lumbar facets. Moderate L5-S1 spondylosis. Impression dictated by: Jaime Hunter M.D. 05/27/2025 2:32 PM Dictation Location: [employer] Electronically authenticated by: [id number] Y Date: 05/27/2025 14:32
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
--- NOTE | 2025-05-27 11:29 | PC.NURSE ---
Tele stroke staff calls to schedule screen time for pt. Nurse unavailable to take call at this time (providing pt care in another room). Tele staff informs physician office secretary Cindy Buckner that they will call back in 30-45 minutes, and to please have tele cart in room so as to view pt for exam. Tele cart taken to room and ready for return call from [facility] staff.
[2025-05-27] MEDS: TRIAMCINOLONE ACETONIDE 0.1% CREAM 15 GM TUBE 1 APPLIC TOPICAL ×2 (11:47→21:26)
[2025-05-27] MEDS: ENSURE HP 237 ML LIQUID PO ×2 (13:24→21:26)
[2025-05-27] MEDS: CARVEDILOL 12.5 MG TABLET PO (21:26)
[2025-05-27] MEDS: GABAPENTIN 300 MG CAPSULE PO (21:26)
[2025-05-27] MEDS: ACETAMINOPHEN 325 MG TABLET 650 MG PO (21:29)
[2025-05-28] VITALS (19 sets, daily range): BP systolic 117–147; BP diastolic 75–93; PULSE 60–216; TEMP 36.3–36.8; O2SAT 91–96
--- NOTE | 2025-05-28 08:00 | CM.NOTE ---
Rounds made with Dr. Loera, updated pt on plan of care. Pt will get MRI and echo today for further evaluation. PT and OT will also evaluate pt for discharge planning.
[2025-05-28] MEDS: CLOPIDOGREL BISULFATE 75 MG TABLET PO (08:33)
[2025-05-28] MEDS: ATORVASTATIN CALCIUM 20 MG TABLET PO (08:33)
[2025-05-28] MEDS: ASPIRIN 81 MG TAB.CHEW PO (08:33)
[2025-05-28] MEDS: ACETAMINOPHEN 325 MG TABLET 650 MG PO (08:33)
[2025-05-28] MEDS: ENOXAPARIN SODIUM 40 MG/0.4 ML SYRINGE SUBQ (08:33)
[2025-05-28] MEDS: ALPRAZOLAM 0.5 MG TABLET PO ×2 (08:34→21:51)
[2025-05-28] MEDS: ALLOPURINOL 100 MG TABLET PO (08:34)
[2025-05-28] MEDS: PANTOPRAZOLE SODIUM 40 MG TABLET.DR PO (08:34)
[2025-05-28] MEDS: CARVEDILOL 12.5 MG TABLET PO ×2 (08:34→21:51)
[2025-05-28] MEDS: ENSURE HP 237 ML LIQUID PO ×2 (08:41→21:51)
[2025-05-28] MEDS: TRIAMCINOLONE ACETONIDE 0.1% CREAM 15 GM TUBE 1 APPLIC TOPICAL ×2 (08:44→21:51)
--- NOTE | 2025-05-28 11:50 | MR_ITS ---
The [address] [address] Patient Name: TAJ RING MRN: [id number] date: 1945 Sex: M Assigned Patient Location: [place] Current Patient Location: [place] Accession/Order Number: [id number] Exam Date: 05/28/2025 13:15 Report Date: 05/28/2025 15:00 At the request of: JOURDAN FAIRCHILD MD Procedure: MR lumbar spine wo con MRI lumbar spine performed without contrast INDICATION: Back pain, canal stenosis, lower extremity weakness COMPARISON: X-rays lumbar spine 05/27/2025 FINDINGS: Lumbar vertebral heights and alignment and bone marrow signal is grossly unremarkable. Minimal T1 and T2 hyperintense endplate marrow changes identified involving the anterior inferior plate of L5. Conus medullaris terminates normally at L1-L2. T12-L1: Only sagittal images were obtained. No significant disc disease, disc protrusion central canal or neural foraminal terminates narrowing identified at this level. L1-2: Minimal broad-based disc bulge with facet arthropathy. [id number]-nj-cedbpjoi neural from narrowing. Canal is patent. L2-3: Circumferential disc bulge with small superimposed left central protrusion. There is moderate severe facet arthropathy. Moderate central canal and moderate right greater than left neural foraminal narrowing. L3-4: Broad-based disc bulge with endplate osteophyte extending both foramina zones. Ljwy-ei-yntljmsa facet arthropathy. Mild right neural foraminal narrowing. Moderate left neural foraminal L4-5: Circumferential disc bulge with endplate osteophytosis extending both foramina zones. There is moderate facet arthropathy and trace effusion. There is moderate crowding subarticular zones with mass effect on the L5 nerve roots. Moderate neural from narrowing. L5-S1: Circumferential bulge with endplate osteophytosis and spurring and facet arthropathy. Mild neural foraminal narrowing. Canal is patent. MR/MR lumbar spine wo con IMPRESSION: Multilevel degenerative changes with moderate effacement subarticular zones L4-5, correlate with possible bilateral L4-5 radiculopathy. Moderate severe facet arthropathy L2-3 with moderate canal and lovj-yl-rxmckkbg foraminal narrowing. Impression dictated by: Toño Boyer M.D. 05/28/2025 3:00 PM Dictation Location: [place] [address] Electronically authenticated by: [id number] Y Date: 05/28/2025 15:00
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
--- NOTE | 2025-05-28 11:59 | SWNOTE1 ---
Important Message from [employer] reviewed and discussed with patient. Pt. verbalized understanding and signed the form. Original given to patient and copy placed in patient?s chart.
--- NOTE | 2025-05-28 12:00 | SWNOTE1 ---
SW met with pt to discuss dc needs. Pt lives at [facility] in [place]. Pt has a walker and cane at home that he does use at times. Pt spoke about his left leg hurting and tingling at times and giving out on him. He has lived there for 15 years. He has a friend that lives beside him who gets groceries for him and checks on him. The apartment complex does have an elevator that he uses. Pt does not have any services coming in at this time. Pt spoke about being in [facility] and not being happy with his care. He voiced he decided to come here and is very pleased with his care. Pt spoke about working with therapy here and getting from bed to chair and his leg hurting some. SW to review therapy notes and let pt know that SW will be back later today or tomorrow. SW did review therapy evals and at this time SNF is recommended. SW to speak with pt about recommendations.
[2025-05-28] MEDS: HYDROCODONE/ACET 5-325 MG TABLET 1 TAB PO (12:43)
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
--- NOTE | 2025-05-28 15:28 | CA_ITS ---
Patient Name: TAJ RING MR#: [id number] : 1945 Exam Date: 05/28/2025 Ordering Doctor: JOURDAN FAIRCHILD ECHOCARDIOGRAM REPORT PROCEDURE: CA ECHO DOPPLER COMPLETE INDICATIONS: TIA symptoms, cardiac stent COMPARISON: None. DESCRIPTION: COMPLETE ECHOCARDIOGRAM Real-time transthoracic echocardiography with 2D, M-mode, spectral and color flow Doppler performed. QUALITY: Technical quality was adequate. LEFT VENTRICLE: Normal chamber size. Normal left ventricular wall thickness. LV EF: Global left ventricular systolic function is normal; visually estimated ejection fraction 60 to 65%. No significant wall motion abnormalities. DIASTOLIC: Normal diastolic function. ATRIAL SEPTUM: Inadequately seen. LEFT ATRIUM: Normal chamber size. RIGHT ATRIUM: Normal chamber size. RIGHT VENTRICLE: Normal chamber size. Normal right ventricular systolic function. TRICUSPID VALVE: Normal mobility and thickness. No stenosis with no regurgitation. MITRAL VALVE: Normal mobility and thickness. No evidence of mitral valve stenosis. There is no mitral annular calcification. No mitral regurgitation. AORTIC VALVE: Normal trileaflet appearance. No visible sclerosis. Normal leaflet mobility. No evidence of aortic valve stenosis. No aortic regurgitation. AORTIC ROOT: Normal diameter and appearance. Ascending aorta is normal in size. PULMONIC VALVE: Not well visualized. No stenosis. No regurgitation. PERICARDIUM: Anterior free space; trivial effusion versus fat pad. IVC: Not well visualized. CONCLUSION: 1. Global left ventricular systolic function is normal; visually estimated ejection fraction 60 to 65% 2. Normal right ventricular size and systolic function 3. Normal diastolic function 4. The left atrium is normal in size 5. No significant valvular abnormalities 6. Anterior free space; trivial effusion versus fat pad Adult Echocardiography Procedure Report Left Ventricle LVEDD (3.7 - 5.6 cm): 4.47 cm LVESD (2.2 - 4.0 cm): 3.08 cm LVIVS thickness (0.6 - 1.2 cm): 0.94 cm LVPW thickness (0.5 - 1.0 cm): 0.97 cm e': 0.06 m/s E - e': 10.95 LVOT Max Gradient: 2.84 mm[Hg] LVOT Area (cm2): 0.84 m/s Peak Velocity (LVOT): 0.84 m/s Mean Velocity (LVOT): 0.59 m/s LVOT Diameter 2.56 cm Left Ventricular Ejection Fraction: 64.76 % Left Atrium LA Volume Index (2D A2C): 21.09 ml/m2 Left Atrium Systolic Dimension: 3.73 cm Mitral Valve MV E to A Ratio: 0.87 MV Max Gradient: MV Mean Gradient: Mitral Valve A-Wave Peak Velocity: 0.78 m/s Mitral Valve E-Wave Peak Velocity: 0.68 m/s Cardiovascular Orifice Area: Right Ventricle RV Internal Diastolic Dimension: Aorta AO Root Diam: 4.02 cm Ascending Ao Diam: 3.03 cm Aortic Valve AoV Area (Peak Raheem): 4.54 cm2, 4.54 cm2 AoV Area (VTI): 4.17 cm2, 4.17 cm2 Deceleration Larue: Pressure Half-Time: Peak Velocity(Antegrade Flow): 0.96 m/s Peak Gradient(Antegrade Flow): 3.66 mm[Hg] Mean Velocity(Antegrade Flow): 0.60 m/s Mean Gradient(Antegrade Flow): 1.76 mm[Hg] Velocity Time Integral: 20.21 cm Tricuspid Valve Peak Velocity (Regurgitant Flow): Peak Velocity: Pulmonic Valve Mean Gradient: Mean Velocity: Peak Velocity: Peak Gradient: 3.43 mm[Hg], 3.06 mm[Hg] Right Atrium Right Atrium Systolic Pressure: 58.79 ml, 58.79 ml Dictated by: Sergio Steiner M.D. on 05/28/2025 at 16:18 Approved by: Sergio Steiner M.D. on 05/28/2025 at 16:21
[2025-05-28] MEDS: GABAPENTIN 300 MG CAPSULE PO (21:51)
[2025-05-29] VITALS (16 sets, daily range): BP systolic 115–149; BP diastolic 76–92; PULSE 61–80; TEMP 36.4–36.8; O2SAT 92–96
[2025-05-29] MEDS: HYDROCODONE/ACET 5-325 MG TABLET 1 TAB PO ×2 (04:12→17:19)
--- NOTE | 2025-05-29 09:00 | CM.NOTE ---
Rounds made with Dr. Loera, discussed plan of care with patient. Continue PT and OT for strengthening. Pt continues to c/o pain to L leg and weakness. Dr. Loera discussed skilled therapy with pt, pt will think about it at this time. Dr. Loera also discussed with pt about seeing Dr. Lyons for his back to discuss pain management, pt in agreement.
[2025-05-29] MEDS: CARVEDILOL 12.5 MG TABLET PO ×2 (09:06→21:12)
[2025-05-29] MEDS: ALLOPURINOL 100 MG TABLET PO (09:06)
[2025-05-29] MEDS: ATORVASTATIN CALCIUM 20 MG TABLET PO (09:06)
[2025-05-29] MEDS: CLOPIDOGREL BISULFATE 75 MG TABLET PO (09:06)
[2025-05-29] MEDS: ASPIRIN 81 MG TAB.CHEW PO (09:06)
[2025-05-29] MEDS: PANTOPRAZOLE SODIUM 40 MG TABLET.DR PO (09:06)
[2025-05-29] MEDS: ALPRAZOLAM 0.5 MG TABLET PO ×2 (09:06→21:12)
[2025-05-29] MEDS: ENOXAPARIN SODIUM 40 MG/0.4 ML SYRINGE SUBQ (09:06)
[2025-05-29] MEDS: TRIAMCINOLONE ACETONIDE 0.1% CREAM 15 GM TUBE 1 APPLIC TOPICAL ×2 (09:13→21:12)
[2025-05-29] MEDS: ENSURE HP 237 ML LIQUID PO ×2 (09:14→21:12)
--- NOTE | 2025-05-29 09:39 | SWNOTE1 ---
SW spoke to case management and pt has agreed to go to [facility] for a short term skilled stay.
--- NOTE | 2025-05-29 09:48 | CM.NOTE ---
CM back in to see pt to discuss skilled therapy at discharge. Pt at this time continues with weakness, discussed with pt safety and importance of being back to his baseline. Pt voices he would like to stay at hospital until he can ambulate on his own. Discussed with pt about transition to skilled and reason for skilled therapy. Pt not able to stay in hospital but feels he is not well enough to go home, perfect candidate for inpatient skilled therapy d/t more intense PT. Explained to pt reason for skilled therapy and benefits from skilled therapy. Pt verbalizes understanding that he needs to be able to get stronger before returning home and agrees to skilled therapy at discharge. Pt would like to try the [facility] after discussing options and 5 star medicare.gov ratings. SW will call [facility] for bed availability.
--- NOTE | 2025-05-29 10:01 | SWNOTE1 ---
MAKSIM reached out to Adriano at [facility], waiting to hear back. Referral sent to [facility]. Referral included face sheet, ED note, H&P, provider notes, case management report, nursing notes, diagnostic imaging, med list, and PT/OT/ST notes.
--- NOTE | 2025-05-29 10:22 | SWNOTE1 ---
[facility] sent SW email and stated they received referral and are reviewing and checking his benefits now.
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
--- NOTE | 2025-05-29 13:11 | SWNOTE1 ---
SW received email from [facility] and they are able to accept.
--- NOTE | 2025-05-29 13:11 | SWNOTE1 ---
[facility] started precert.
--- NOTE | 2025-05-29 13:55 | SWNOTE1 ---
MAKSIM faxed updated PT/OT and physician note from today to Opal at [facility] to attached to precert.
[2025-05-29] MEDS: GABAPENTIN 300 MG CAPSULE PO (21:12)
[2025-05-29] MEDS: ACETAMINOPHEN 325 MG TABLET 650 MG PO (21:12)
[2025-05-30] VITALS (7 sets, daily range): BP systolic 126–135; BP diastolic 81–85; PULSE 58–67; TEMP 36.4; O2SAT 91–94
--- NOTE | 2025-05-30 08:00 | CM.NOTE ---
Rounds made with Dr. Loera, discussed plan of care with pt. Pt will discharge to [facility] today for skilled therapy.
--- NOTE | 2025-05-30 08:45 | SWNOTE1 ---
SW received a message from Opal at [facility] and pt is approved to go to [facility]. MAKSIM sent message to case management notifying of approval.
[2025-05-30] MEDS: PANTOPRAZOLE SODIUM 40 MG TABLET.DR PO (08:54)
[2025-05-30] MEDS: CARVEDILOL 12.5 MG TABLET PO (08:54)
[2025-05-30] MEDS: CLOPIDOGREL BISULFATE 75 MG TABLET PO (08:54)
[2025-05-30] MEDS: ATORVASTATIN CALCIUM 20 MG TABLET PO (08:54)
[2025-05-30] MEDS: ASPIRIN 81 MG TAB.CHEW PO (08:54)
[2025-05-30] MEDS: ALPRAZOLAM 0.5 MG TABLET PO (08:54)
[2025-05-30] MEDS: ALLOPURINOL 100 MG TABLET PO (08:55)
[2025-05-30] MEDS: ENSURE HP 237 ML LIQUID PO (08:55)
[2025-05-30] MEDS: ACETAMINOPHEN 325 MG TABLET 650 MG PO (08:55)
[2025-05-30] MEDS: ENOXAPARIN SODIUM 40 MG/0.4 ML SYRINGE SUBQ (08:55)
[2025-05-30] MEDS: TRIAMCINOLONE ACETONIDE 0.1% CREAM 15 GM TUBE 1 APPLIC TOPICAL (08:55)
--- NOTE | 2025-05-30 10:00 | CT_ITS ---
The [address] [address] Patient Name: TAJ RING MRN: [id number] date: 1945 Sex: M Assigned Patient Location: [place] Current Patient Location: Accession/Order Number: [id number] Exam Date: 05/30/2025 10:27 Report Date: 05/30/2025 11:34 At the request of: JOURDAN FAIRCHILD MD Procedure: CT hip LT wo con CT LEFT HIP WITHOUT CONTRAST WITH 3-D RECONSTRUCTIONS CLINICAL DATA: Acute left hip pain. No reported injury. COMPARISON: CT 10/24/2023 Spiral axial unenhanced images were obtained to the left hip. Coronal and 3-D volume rendered reconstructions were reviewed. This CT exam was performed using one or more following dose reduction techniques: Automated exposure control, adjustment of the mA and/or kV according to patient size, or use of iterative reconstruction technique. There is osteopenia. There is no acute fracture involving the imaged proximal femur or pelvis. No dislocation is seen. The hip joint space is maintained. There is mild hypertrophy at the acetabulum and femoral head, also present at the time of the comparison. There is also similar subchondral sclerosis and cystic change at the weightbearing aspect of the femoral head. No joint effusion is noted. The musculotendinous structures within the uoyti-qi-upel appear unremarkable. There are some sigmoid diverticula. Small inguinal lymph nodes are visualized. CT/CT hip LT wo con IMPRESSION: DEGENERATIVE CHANGES AT THE RIGHT HIP WHICH ARE SIMILAR TO THE PREVIOUS CT EXAM. NO ACUTE BONY FINDINGS. Impression dictated by: Marylou Ray M.D. 05/30/2025 11:34 AM Dictation Location: [employer] Electronically authenticated by: [id number] Date: 05/30/2025 11:34
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
--- NOTE | 2025-05-30 10:08 | SWNOTE1 ---
SW checked with nurse and pt can go by wheelchair. SW checked with [facility] and they did not have transport today. SW called and set up trips transportation for 12:-12:30, wheelchair. SW notified pt's nurse and [facility] of time. SW to let pt know as well.
--- NOTE | 2025-05-30 10:16 | SWNOTE1 ---
Pt has an order for CT of hip that needs completed and read prior to discharge. SW called radiology and they are aware of order. They have to see 2 ED patients and then will complete pt's CT. MAKSIM called [facility] and the latest they can do is 1:00. MAKSIM took that time. MAKSIM will cancel if needed. MAKSIM notified pt's nurse and Opal at [facility] of transport time change.
--- NOTE | 2025-05-30 10:43 | SWNOTE1 ---
MAKSIM completed [id number] online. MAKSIM faxed dc med rec, dc summary, most recent vitals, and shift assessment to Opal hernandez [place]. MAKSIM took packet to the floor. MAKSIM left CRF in nurse mail slot to complete. MAKSIM called pt's grilfriend, [facility], and notified her of discharge time.
--- NOTE | 2025-05-30 11:44 | SWNOTE1 ---
CT results are back of Hip. SW sent via secure tiger text to Dr. Loera.
--- NOTE | 2025-05-30 11:47 | PT.DAILY ---
Physical Therapy Daily Note PT Daily Note/Assess Start: 05/29/25 09:40 Freq: Status: Active Protocol: Document 05/30/25 11:41 HOLLY (Rec: 05/30/25 11:47 HOLLY [id number]) Physical Therapy Daily Note/Assessment Time In/Time Out Time In 10:48 Time Out 11:01 Pain In Pain N/A Pain Out Pain N/A Subjective Subjective Pt supine upon arrival. Reports just getting back to bed from chair but agreeable to ther ex and gait. Therapeutic Exercise Time Therapeutic Exercise 4 Minutes (minutes) Therapeutic Exercise 0 Units Therapeutic Exercise Treatment Therapeutic Exercise Pt instructed to complete LE strengthening ex while Treatment sitting at EOB - edu to focus on large movements with ther ex. Pt is receptive and able to complete. Therapeutic Activity Time Therapeutic Activity 6 Minutes (minutes) Therapeutic Activity 1 Units Therapeutic Activity Treatment Bed Mobility Ability Standby Assistance Chair Transfer Contact Guard Assist Ability Therapeutic Activity Supine>sit SBA. Sit>stand to RW CGA for safety. Pt amb Comments 60' with RW, CGA for safety. Returned to sitting EOB. Sit>supine SBA with increased time needed. Remains supine with call light within reach and bed alarm set. Total Physical Therapy Time Total Therapy 10 Minutes Total Physical 1 Therapy Units Summary Daily Note Summary Improved gait endurance and ability - no assistance to maintain balance with gait today.
--- NOTE | 2025-05-30 11:59 | SWNOTE1 ---
Dr. Loera messaged back and under the impression section it states degenerative changes at the right hip which are similar to previous CT exam. Physician asking why they are talking about right hip and if they are looking at right, left, or both. MAKSIM called and spoke to Meaghan in radiology. She confirms they did scan the left hip and she will call the radiologist as she feels it is a typo. Meaghan called back and the radiologist, Dr. Ray, and it was confirmed that it mistakenly documented and should say left hip and an addendum will be added. MAKSIM messaged Dr. Loera.
--- NOTE | 2025-05-30 16:11 | SWNOTE1 ---
MAKSIM sent email to Adriano at [facility]. MAKSIM notified them of follow up's that were not on CRF. They did make one with Dr. Knowles (I am guessing in case he is discharged from the [facility] by then) for June 06 at 8:[address]am. Dr. Morgan [facility] on July [address] Then [address] Rey Lyons?s office is supposed to call patient to schedule follow up.
--- NOTE | 2025-06-01 09:59 | SWNOTE1 ---
MAKSIM received a call from Shelby Millard, [facility] nursing home facility advocate. She works for Dr. Knowles's office and was following up on pt's discharge from hospital. MAKSIM advised that pt was discharged to [facility] for rehab. Shelby requested dc summary. MAKSIM faxed dc summary to Shelby.
== END 2025-05-30 13:33 | DRG 69 ==
LOC: ER 14:07 → MS 16:10
PROVIDERS: Admitting Provider Internal Medicine; Emergency Provider Emergency Medicine; PCP Internal Medicine; Visit Provider Internal Medicine
DX: G45.9 Transient cerebral ischemic attack, unspecified (principal); E44.1 Mild protein-calorie malnutrition; R64 Cachexia; R47.1 Dysarthria and anarthria; Z79.02 Long term (current) use of antithrombotics/antiplatelets; E66.89 Other obesity not elsewhere classified; M51.16 Intervertebral disc disorders with radiculopathy, lumbar region; M48.061 Spinal stenosis, lumbar region without neurogenic claudication; I12.9 Hypertensive chronic kidney disease with stage 1 through stage 4 chronic kidney disease, or unspecified chronic kidney disease; M62.50 Muscle wasting and atrophy, not elsewhere classified, unspecified site; R23.4 Changes in skin texture; M19.90 Unspecified osteoarthritis, unspecified site; R54 Age-related physical debility; Z98.1 Arthrodesis status; M79.605 Pain in left leg; M79.604 Pain in right leg; E78.00 Pure hypercholesterolemia, unspecified; G62.9 Polyneuropathy, unspecified; Z86.73 Personal history of transient ischemic attack (TIA), and cerebral infarction without residual deficits; I25.10 Atherosclerotic heart disease of native coronary artery without angina pectoris; G40.909 Epilepsy, unspecified, not intractable, without status epilepticus; Z95.5 Presence of coronary angioplasty implant and graft; Z79.899 Other long term (current) drug therapy; Z87.891 Personal history of nicotine dependence; Z79.01 Long term (current) use of anticoagulants; Z91.81 History of falling; Z68.31 Body mass index [BMI] 31.0-31.9, adult; N18.31 Chronic kidney disease, stage 3a; I25.2 Old myocardial infarction; F41.9 Anxiety disorder, unspecified; K21.9 Gastro-esophageal reflux disease without esophagitis; K44.9 Diaphragmatic hernia without obstruction or gangrene; Z86.0100 Personal history of colon polyps, unspecified; Z87.19 Personal history of other diseases of the digestive system; Z98.52 Vasectomy status
CPT/HCPCS: 36415; 70450; 70496; 70498; 70551; 71045; 72110; 72125; 72148; 72190; 73700; 76376; 80048; 80053; 80061; 80320; 81003; 82948; 83605; 83735; 84484; 85025; 85610; 92610; 93005; 93306; 97110; 97162; 97165; 97530; 97535; 99285; J1650; Q9967

== ENCOUNTER 2025-06-27 09:49 | Inpatient (IN) | payer MEDICARE, MEDICAID, SELFPAY ==
[2025-06-27] VITALS (32 sets, daily range): BP systolic 120–148; BP diastolic 70–89; PULSE 63–78; TEMP 36.3–37.2; O2SAT 92–98; BMI 28.2; BMI 31.2
--- NOTE | 2025-06-27 09:51 | XR_ITS ---
The [place] [id number] Patient Name: TAJ RING MRN: [id number] date: 1945 Sex: M Assigned Patient Location: ED.MAIN Current Patient Location: ED.MAIN Accession/Order Number: [id number] Exam Date: 06/27/2025 10:18 Report Date: 06/27/2025 10:49 At the request of: JAROD PENNINGTON MD Procedure: XR chest 1V PORTABLE AP ERECT CHEST 1013 hours CLINICAL HISTORY: Shortness of breath, dizziness and weakness COMPARISON: 05/26/2025 There is continued mild elevation of the right hemidiaphragm. The heart is within normal limits. There is no vascular congestion. No developing consolidation is seen. There is no effusion or pneumothorax. The osseous structures are intact. XR/XR chest 1V IMPRESSION: NO ACUTE FINDINGS Impression dictated by: Marylou Ray M.D. 06/27/2025 10:49 AM Dictation Location: [place] [address] Electronically authenticated by: [id number] Y Date: 06/27/2025 10:49
--- NOTE | 2025-06-27 09:51 | ECG_ITS ---
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 Measurements Intervals [place] Rate: 69 P: 43 NM: 186 QRS: -56 QRSD: 96 T: 58 QT: 374 QTc: 392 Interpretive Statements 1100 Sinus rhythm 3114 Cannot rule out anterior myocardial infarction, age undetermined 7200 Abnormal left axis deviation 8102 Low QRS voltage in chest leads 9150 abnormal ECG Compared to ECG 05/27/2025 05:22:13 Left-axis deviation now present Sinus bradycardia no longer present Left anterior fascicular block no longer present Electronically Signed On 06-27-2025 18:03:53 EDT by EUNICE FULTON M.D.
--- NOTE | 2025-06-27 10:09 | CT_ITS ---
The [address] [address] Patient Name: TAJ RING MRN: [id number] date: 1945 Sex: M Assigned Patient Location: ED.MAIN Current Patient Location: ED.MAIN Accession/Order Number: [id number] Exam Date: 06/27/2025 10:18 Report Date: 06/27/2025 11:06 At the request of: JAROD PENNINGTON MD Procedure: CT head/brain wo con CT BRAIN WITHOUT CONTRAST: CLINICAL HISTORY: Dizziness and weakness COMPARISON: MRI 05/28/[address] 05/26/2025 TECHNIQUE: Contiguous axial unenhanced images were obtained through the brain. This CT exam was performed using one or more following dose reduction techniques: Automated exposure control, adjustment of the mA and/or kV according to patient size, or use of iterative reconstruction technique. FINDINGS: There is generalized atrophy. The ventricles are normal in size and position. Mild chronic microvascular changes are again noted. There are no additional areas of abnormal attenuation. There is no hemorrhage, mass effect or extra-axial collections. The imaged paranasal sinuses and mastoid air cells are clear. CT/CT head/brain wo con IMPRESSION: ATROPHY AND CHRONIC MICROVASCULAR CHANGES. NO ACUTE INTRACRANIAL ABNORMALITY. Impression dictated by: Marylou Ray M.D. 06/27/2025 11:06 AM Dictation Location: [place] [address] Electronically authenticated by: [id number] Y Date: 06/27/2025 11:06
--- NOTE | 2025-06-27 10:09 | ED.DIZZY1 ---
HPI - Dizziness General Chief Complaint: Dizziness Stated Complaint: DIZZINESS Time Seen by Provider: 06/27/25 09:51 Source: patient Mode of arrival: ambulance Limitations: no limitations History of Present Illness HPI Narrative: The patient is 79-year-old male who is presenting to the ER after the EMS was called because of history of dizziness and generalized weakness. Patient recently diagnosed with bronchitis was started on antibiotic treatment that close and a reaction which is mostly a rash around the mouth and then the patient will change to Augmentin. The initial antibiotic was cefdinir and caused the patient to have rash around his mouth The patient does not have any family member at the bedside apparently they called the EMS because he has not been able to get out of the bed. Patient have been having vertigo as well which seem to be a previous diagnosis, and the patient is taking meclizine for it. Patient still have a cough that is productive. No upper or lower extremity weakness no chest pain no abdominal pain There is some decrease in p.o. intake and decreased appetite Related Data Home Medications ?Medication ?Instructions ?Recorded ?Confirmed allopurinol 100 mg tablet 100 mg PO DAILY 06/21/24 06/27/25 gabapentin 300 mg capsule 300 mg PO .QHS 06/21/24 06/27/25 simvastatin 40 mg tablet 40 mg PO .QHS 06/21/24 06/27/25 clopidogrel 75 mg tablet 75 mg PO .QD 05/26/25 06/27/25 nitroglycerin 0.4 mg sublingual 0.4 mg sublingual Q5M PRN chest 05/26/25 06/27/25 tablet pain alprazolam 0.5 mg tablet (Xanax) 1 mg PO BID 06/27/25 06/27/25 amlodipine 2.5 mg tablet 2.5 mg PO DAILY 06/27/25 06/27/25 amoxicillin 875 mg-potassium 1 tab PO Q12H 06/27/25 06/27/25 clavulanate 125 mg tablet carvedilol 12.5 mg tablet 25 mg PO BID 06/27/25 06/27/25 celecoxib 200 mg capsule 200 mg PO Q24H 06/27/25 06/27/25 colchicine 0.6 mg capsule 0.6 mg PO .MWF 06/27/25 06/27/25 meclizine 25 mg tablet 25 mg PO TID PRN dizziness 06/27/25 06/27/25 ondansetron HCl 4 mg tablet 4 mg PO TID-QID PRN nausea and 06/27/25 06/27/25 vomiting sucralfate 1 gram tablet 1 g PO BEDTIME 06/27/25 06/27/25 zolpidem 10 mg tablet 10 mg PO BEDTIME 06/27/25 06/27/25 Previous Rx's ?Medication ?Instructions ?Recorded pantoprazole 40 mg tablet,delayed 40 mg PO DAILY #30 tabs 10/24/23 release (Protonix) hydrocodone 5 mg-acetaminophen 325 1 tab PO Q6H PRN Pain #12 tabs 05/30/25 mg tablet triamcinolone acetonide 0.1 % 1 applic topical BID #0 grams 05/30/25 topical cream Allergies Allergy/AdvReac Type Severity Reaction Status Date / Time No Known Drug Allergies Allergy Verified 05/26/25 11:29 Review of Systems ROS Status of ROS 10 or more systems reviewed and unremarkable except as noted in history and below [facility] Medical History (Updated 06/27/25 @ 12:15 by Mavis Dior MD) Neuropathy ?G62.9 - Polyneuropathy, unspecified (ICD-10) High blood cholesterol ?E78.00 - Pure hypercholesterolemia, unspecified (ICD-10) Gout ?M10.9 - Gout, unspecified (ICD-10) Wilson by, 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, unspecified degree (ICD-10) Stroke ?I63.9 - Cerebral infarction, unspecified (ICD-10) Syncope ?R55 - Syncope and collapse (ICD-10) Seizure disorder ?G40.909 - Epilepsy, unspecified, not intractable, without status epilepticus (ICD-10) CAD (coronary artery disease) ?I25.10 - Atherosclerotic heart disease of [place] coronary artery without angina pectoris (ICD-10) Surgical History H/O heart artery stent ?Z95.5 - Presence of coronary angioplasty implant and graft (ICD-10) Social History (Updated 06/21/24 @ 14:21 by Shaikh Erick MD) Within the past year, how often did you have a drink containing alcohol: never Within the past year, how often did you have six or more drinks on one occasion: never Score interpretation: A score less than 4 is consistent with normal alcohol consumption. Smoking status: Former smoker Non-prescribed substance use: denies use Previous occupational history: Retired from [employer]. Highest level of school completed/degree received: 12th grade, no diploma Do you want help with school or training: No Are you now , , , , never or living with a partner: In a typical week, how many times do you talk on the telephone with family, friends, or neighbors: 3 or more times per week How often do you get together with friends or relatives: 3 or more times per week How often do you attend hinduism or confucianist services: 1-3 times per year Do you belong to any clubs or organizations such as hinduism groups unions, fraternal or athletic groups, or school groups: no Total score: 1 Score interpretation: A score of less than or equal to 1 indicates the most socially isolated. Little interest or pleasure in doing things: not at all Feeling down, depressed, or hopeless: not at all Feel stressed/tense/nervous/anxious/difficulty sleeping: not at all Due to disability, difficulty making decisions: No Do you think of yourself as: straight/heterosexual Gender Identity: male Exam Narrative Exam Narrative: Nurses notes and vital signs reviewed and patient looks weak and tired General: Patient looks weak and dehydrated with dry mucous membranes. Skin: Warm, dry, the patient have a rash around the mouth more maculopapular and dry. Head: Normocephalic, atraumatic. Neck: Supple, non-tender. Eye: Pupils are equal, round and EOMI. No scleral icterus. Ears, Nose, Mouth, and Throat: . Dry mucous membranes. no posterior oropharynx erythema, uvula is mid-line Cardiovascular: Regular Rate and Rhythm without murmur, gallop or rub. Respiratory: No accessory muscle use or respiratory distress. There is decreased air entry bilaterally mostly in the bases no wheezing Musculoskeletal: normal ROM, no calf or popliteal tenderness, no lower extremity edema/swelling GI: Abdomen is soft, non-distended. Normal bowel sounds. No masses appreciated. No tenderness to palpation. No rebound, guarding, or rigidity noted. Neurological: A&O x4. No cranial nerve dysfunction observed. No truncal ataxia. Moves all extremities. Sensation intact. Psychiatric: Cooperative and interactive. Normal mood and affect. Constitutional Vital Signs, click to edit/add: Last Vital Signs Temp 98.9 F 06/27/25 09:53 Pulse 75 06/27/25 11:40 Resp 23 H 06/27/25 11:40 BP 120/78 06/27/25 09:53 Pulse Ox 95 06/27/25 12:13 O2 Del Method Room Air 06/27/25 12:13 Course Vital Signs Vital signs: Vital Signs Temperature 98.9 F 06/27/25 09:53 Pulse Rate 68 06/27/25 09:53 Respiratory Rate 17 06/27/25 09:53 Blood Pressure 120/78 06/27/25 09:53 Pulse Oximetry 94 L 06/27/25 09:53 Oxygen Delivery Method Room Air 06/27/25 09:53 Temperature 98.9 F 06/27/25 09:53 Pulse Rate 75 06/27/25 11:40 Respiratory Rate 23 H 06/27/25 11:40 Blood Pressure 120/78 06/27/25 09:53 Pulse Oximetry 95 06/27/25 12:13 Oxygen Delivery Method Room Air 06/27/25 12:13 MDM - Dizziness MDM Narrative Medical decision making narrative: Patient EKG showing sinus rhythm with a heart rate of [address] elevation or depression Was noted that the patient was generally weak and tired his pulse ox was saturating 93% on room air when he is awake but dropped to 89% when he is asleep On the medication list the patient had Ambien and Xanax Percocet as well as meclizine and gabapentin and his presentation could be multifactorial due to dehydration as well as reaction from the medication It was noted that the patient have a history of smoking he does have a distant breathing sounds and the nagging cough and with the fact that he is showing hypoxemia when sleeping and ABG showing mild CO2 retention with hypoxemia and a pH of 7.34 Patient was started on breathing treatments as well as Solu-Medrol CT of the head showed no acute pathology Blood culture obtained the patient will be started azithromycin to cover for COPD exacerbation The patient case was discussed with and he agreed to admit the patient for further evaluation and management Lab Data Labs: Lab Results 06/27/25 06/27/25 Range/Units 10:00 11:40 WBC 6.8 (4.0-11.0) 10^3/uL RBC 4.78 (4.70-6.10) 10^6/uL Hgb 14.2 (14.0-18.0) g/dL Hct 43.8 (42.0-54.0) % MCV 91.6 (80.0-94.0) fL MCH 29.7 (25.9-34.0) pg MCHC 32.4 (29.9-35.2) g/dL RDW 13.6 (11.0-15.0) % Plt Count 189 (150-450) 10^3/uL MPV 9.3 L (9.5-13.5) fL Neut % (Auto) 62.9 (43.0-75.0) % Lymph % (Auto) 25.8 (20.5-60.0) % [place] % (Auto) 6.7 (1.7-12.0) % Eos % (Auto) 3.4 (0.9-7.0) % Baso % (Auto) 0.6 (0.2-2.0) % Neut # (Auto) 4.3 (1.4-6.5) 10^3/uL Lymph # (Auto) 1.8 (1.2-3.8) 10^3/uL [place] # (Auto) 0.5 (0.3-0.8) 10^3/uL Eos # (Auto) 0.2 (0.0-0.7) 10^3/uL Baso # (Auto) 0.0 (0.0-0.1) 10^3/uL Abs Immat Gran (auto) 0.04 H (0.00-0.03) 10^3/uL Imm/Tot Granulo (auto) 0.6 H (0.0-0.5) % Puncture Site Rr ABG pH 7.344 L (7.350-7.450) ABG pCO2 49.7 H (35.0-45.0) mmHg ABG pO2 67.3 L (80.0-100.0) mmHg ABG HCO3 27.0 H (22.0-26.0) mmol/L ABG O2 Saturation 94.6 % ABG Base Excess 1.3 (-2.0-2.0) mmol/L Owen Test Positive (POSITIVE) Sodium 145 (136-145) mmol/L Potassium 4.6 (3.5-5.1) mmol/L Chloride 107 (98-107) mmol/L Carbon Dioxide 28.1 (21.0-32.0) mmol/L Anion Gap 14.5 BUN 21.0 H (7.0-18.0) mg/dL Creatinine 1.49 H (0.70-1.30) mg/dL Est GFR ( Amer) 55 L (>=60 mL/min/1.73m^2) Est GFR (Non-Af Amer) 46 L (>=60 mL/min/1.73m^2) BUN/Creatinine Ratio 14.1 Glucose 98 (74-106) mg/dL Lactate 0.8 (0.4-2.0) mmol/L Calcium 9.1 (8.5-10.1) mg/dL Magnesium 1.9 (1.8-2.4) mg/dL Total Bilirubin 0.5 (0.2-1.0) mg/dL AST 32 (15-37) U/L ALT 45 (16-63) U/L Alkaline Phosphatase 84 (46-116) U/L Troponin I High Sens 6.1 (4.0-76.1) pg/mL Total Protein 7.5 (6.4-8.2) g/dL Albumin 3.6 (3.4-5.0) g/dL Globulin 3.9 g/dL Albumin/Globulin Ratio 0.9 Discharge Plan Discharge Chief Complaint: Dizziness Clinical Impression: Generalized weakness, IRINA (acute kidney injury), Bronchitis, Hypoxemia, Drug side effects Prescriptions / Home Meds: No Action pantoprazole [Protonix] 40 mg tablet,delayed release (DR/EC) 40 mg PO DAILY Qty: 30 0RF clopidogrel 75 mg tablet 75 mg PO .QD nitroglycerin 0.4 mg tablet, sublingual 0.4 mg sublingual Q5M PRN (Reason: chest pain) hydrocodone-acetaminophen 5-325 mg Tablet 1 tab PO Q6H PRN (Reason: Pain) Qty: 12 0RF triamcinolone acetonide 0.1 % Cream 1 applic topical BID Qty: 0 0RF Rx Instructions: Apply on face twice a day. Avoid eyes amlodipine 2.5 mg tablet 2.5 mg PO DAILY amoxicillin-pot clavulanate 875-125 mg tablet 1 tab PO Q12H Rx Instructions: 10 days started 06/25/25 celecoxib 200 mg capsule 200 mg PO Q24H colchicine 0.6 mg capsule 0.6 mg PO .MWF meclizine 25 mg tablet 25 mg PO TID PRN (Reason: dizziness) ondansetron HCl 4 mg tablet 4 mg PO TID-QID PRN (Reason: nausea and vomiting) zolpidem 10 mg tablet 10 mg PO BEDTIME sucralfate 1 gram tablet 1 g PO BEDTIME carvedilol 12.5 mg Tablet 25 mg PO BID alprazolam [Xanax] 0.5 mg tablet 1 mg PO BID gabapentin 300 mg capsule 300 mg PO .QHS simvastatin 40 mg tablet 40 mg PO .QHS allopurinol 100 mg tablet 100 mg PO DAILY Print Language: Japanese Referrals: KELLEN BALBUENA [Primary Care Provider, Internal Medicine] - 1 week
[2025-06-27 10:20] LABS: Hematocrit 43.8 % (42.0-54.0); Hemoglobin 14.2 g/dL (14.0-18.0); Immature Granulocytes Abs Auto 0.04 10^3/uL (0.00-0.03); Immature Granulocytes Pct Auto 0.6 % (0.0-0.5); Lymphocytes Absolute Auto 1.8 10^3/uL (1.2-3.8); Mean Corpuscular HGB Conc 32.4 g/dL (29.9-35.2); Mean Corpuscular Hemoglobin 29.7 pg (25.9-34.0); Mean Corpuscular Volume 91.6 fL (80.0-94.0); Platelet Count 189 10^3/uL (150-450); Red Blood Count 4.78 10^6/uL (4.70-6.10); White Blood Count 6.8 10^3/uL (4.0-11.0)
--- OUTSIDE RECORDS SUMMARY | 2025-06-27 10:23 | XMS_ITS | CCD ---
Author Organization [facility] Care Team Providers Care Tower Hoist Operator Name Role Phone DR MONO KNOWLES Attending Unavailable ESHA, DR FOREMAN Primary Care Unavailable DR MONO KNOWLES Admitting Unavailable Mono Knowles MD Unavailable [phone] Mono Knowles MD Primary Care Provider Mono Knowles MD Primary Care Provider Mono Knowles MD Primary Care Provider [phone] Summer Velazquez RN Unavailable Mono Knowles MD Primary Care Provider [phone] Johnston VULCANIZING PRESS OPERATOR, Ruth Unavailable Unavailable Johnston VULCANIZING PRESS OPERATOR, Ruth Unavailable Johnston VULCANIZING PRESS OPERATOR, Ruth Unavailable MONO KNOWLES Primary Care Unavailable JOMAR SCHWARTZ Attending Unavailable ROBERT CURRY Admitting Unavailable MONO KNOWLES B Referring Unavailable ESHA MONO B Primary Care Unavailable ESHA MONO B Referring Unavailable ESHA MONO B Primary Care Unavailable ESHA MONO B Primary Care Unavailable CAROLYNE MCINTYRE Attending Unavailable MONO KNOWLES B Primary Care Unavailable LOU HONG Attending Unavailable KIMBERLEE CRUZ Admitting Unavailable ESHA MONO B Primary Care Unavailable CAROLYNE MCINTYRE Attending Unavailable ESHA MONO B Primary Care Unavailable CAROLYNE SPIVEY Attending Unavailable ESHA MONO B Primary Care Unavailable INPATIENT, TELENEUROLOGY Consulting Unavail able MONO KNOWLES B Referring Unavailable ESHA, MONO B Primary Care Unavailable ESHA MONO B Referring Unavailable ESHA MONO B Primary Care Unavailable ESHA MONO B Referring Unavailable ESHA, MONO B Primary Care Unavailable ESHA MONO B Referring Unavailable ESHA MONO B Primary Care Unavailable KNOWLES, MONO B Referring Unavailable MONO KNOWLES Primary Care Unavailable MONO KNOWLES Attending Unavailable NORMA JIN Attending Unavailable MONO KNOWLES Referring Unavailable DON FENTON Attending Unavailable ISABELLA VERA Referring Unavailable TYLER SANCHEZ Attending Unavailable MONO KNOWLES Attending Unavailable MONO KNOWLES Attending Unavailable MONO KNOWLES Attending Unavailable KE SANCHEZ Referring Unavailable KE SANCHEZ Referring Unavailable MONO KNOWLES Attending Unavailable MONO KNOWLES Attending Unavailable MONO KNOWLES Attending Unavailable KAMI THOMASON Attending Unavailable MONO KNOWLES Attending Unavailable MARYLOU LARRY Attending Unavailable Allergies Allergy Classification Reported Allergen(s) Allergy Type Date of Onset Reaction(s) Facility Unclassified (1 source) Pneumovax 23 Drug allergy (disorder) [facility] (20 sources) Pneumococcal 20-Danay Conj Vacc Drug Intolerance 1 Swelling [facility] Healthcare Work Phone: (20 sources) Pneumococcal Vac Polyvalent Drug Allergy 1 [facility] (15 sources) Streptococcus pneumoniae type 1 capsular polysaccharide [...] [PNEUMOCOCCAL 23-DANAY PS VACCINE] Drug Allergy 1 [facility] Medications Current Medications Medication Drug Class(es) Dates Sig (Normalized) Sig (Original) acetaminophen 325 mg / HYDROcodone bitartrate 10 mg oral tablet (20 sources) Opioid Agonist Start: 04-27-2024 End: 07-15-2025 take 1 tablet by mouth every six hours for pain HYDROcodone-aceta minophen (Beulah) 10-325 MG tablet Indications: Cervical stenosis of spinal canal Take 1 tablet by mouth every 6 (six) hours if needed for severe pain 120 tablet 06/15/2025 07/15/2025 Active Start: 10-06-2023 take 1 tablet by fatimah th every six hours for pain HYDROcodone-acetaminophen (Beulah) 10-325 MG tablet Indications: Cervical stenosis of [...] tablet (20 sources) Benzodiazepine Start: 05-15-2025 End: 07-21-2025 take 1 tablet by mouth in the morning ALPRAZolam (Xanax) 1 MG tablet Indications: Anxiety Take 1 tablet (1 mg) by mouth in the morning and 1 tablet (1 mg) before bedtime. 60 tablet 06/21/2025 07/21/2025 Active Start: 03-03-2024 End: 05-11-2025 take 1 [...] mg / clavulanate 125 mg oral tablet (7 sources) Penicillin-class Antibacterial Start: 06-25-2025 End: 07-05-2025 take 1 tablet by mouth in the morning amoxicillin-clavul anate (Augmentin) 875-125 MG tablet Indications: Acute bronchitis, unspecified organism Take 1 tablet (875 mg) by mouth in the morning and 1 tablet (875 mg) before bedtime. Do all this for 10 days. 20 tablet 06/25/2025 07/05/2025 Active Start: 02-28-2025 End: 03-10-2025 take 1 tablet by mouth in the morning amoxicillin-clavulanate (Augmentin) 875-125 MG tablet Indications: Acute non-recurrent [...] 180 tablet 0 09/07/2023 10/28/2023 Discontinued (Reorder) cefdinir 300 mg oral capsule (5 sources) Cephalosporin Antibacterial Start: 06-21-2025 End: 07-01-2025 take 1 capsule by mouth in the morning cefdinir (Omnicef) 300 MG capsule Indications: Acute bronchitis, unspecified organism Take 1 capsule (300 mg) by mouth in the morning and 1 capsule (300 mg) before bedtime. Do all this for 10 days. 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) Place 1 tablet (0.4 mg) under the tongue every 5 (five) minutes if needed for chest pain 90 tablet 12 10/27/2023 Active nystatin 069259 unt/ml oral suspension (4 sources) Polyene Antifungal Start: 08-22-2024 End: 08-30-2024 take 5 mL by mouth four times daily at bedtime nystatin (Mycostatin) [id number] UNIT/ML suspension Indications: Thrush SWISH AND SWALLOW FIVE MILLILITERS BY MOUTH FOUR TIMES A DAY FOR 14 DAYS (MORNING, NOON, EVENING, BEFORE BEDTIME) 280 mL 08/22/2024 08/30/2024 Discontinued (Therapy completed) Start: 06-01-2024 End: 06-15-2024 nystatin (Mycostatin) 369196 UNIT/ML suspension Indications: Thrush Take 5 mL [...] (Zocor) 40 MG tablet Indications: Atherosclerosis of habematolel coronary artery of habematolel heart without angina pectoris Take 1 tablet (40 mg) by mouth at bedtime 100 tablet 3 02/06/2025 Active Start: 02-08-2024 take 1 tablet by fatimah th at bedtime simvastatin (Zocor) 40 MG tablet Indications: Atherosclerosis of habematolel coronary artery of habematolel heart without angina pectoris (CMS/HCC) Take 1 tablet (40 mg) by mouth at bedtime 100 tablet 3 02/08/2024 Active Start: 10-06-2023 End: 01-14-2024 take 1 tablet by mouth at bedtime simvastatin (Zocor) 40 MG tablet Indications: Atherosclerosis of habematolel coronary artery of habematolel heart without angina pectoris (CMS/HCC) Take 1 [...] sources) gamma-Aminobutyric Acid-ergic Agonist Start: 10-25-2024 End: 06-21-2025 take 1 tablet by mouth at bedtime zolpidem (Ambien) 10 MG tablet Indications: Chronic insomnia Take 1 tablet (10 mg) by mouth at bedtime 30 tablet 06/21/2025 Active Start: 08-18-2023 End: 10-23-2024 take 1 [...] Problem Date Documented Date Episodic/Chronic Acute bronchitis (7 sources) Acute bronchitis; Translations: [Acute bronchitis, unspecified] 05-10-2024 Episodic Acute cerebrovascular disease (20 sources) Cerebrovascular accident; Translations: [Cerebral infarction, unspecified] Onset: 4 08-30-2024 Chronic Acute cerebrovascular disease (1 source) Acute cerebrovascular disease Onset: Administrative/social admission (2 sources) Patient encounter status; Translations: [Other specified counseling] 12-06-2024 Episodic Anxiety disorders (20 sources) Anxiety; Translations: [Anxiety disorder, unspecified] Onset: 3 01-19-2023 Chronic Chronic kidney disease (20 sources) Chronic kidney disease stage 3B ; Translations: [Stage 3b chronic kidney disease (HCC)] Onset: 3 01-19-2023 Chronic Coronary atherosclerosis and other heart disease (20 sources) Coronary occlusion; 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] Onset: 4 [...] hypertension] Onset: 0 Resolved: 3 01-19-2023 Chronic Fracture of neck of femur (hip) (4 sources) Closed fracture proximal femur, subtrochanteric; Translations: [Displaced subtrochanteric fracture of right femur, sequela] 06-25-2025 Episodic Fracture of neck of femur (hip) (2 sources) Closed subtrochanteric fracture of left femur; Translations: [Displaced subtrochanteric fracture of left femur, sequela] Onset: 5 06-25-2025 Episodic Gout and other crystal arthropathies (20 sources) [...] infarction without residual deficits] 11-08-2024 Episodic Other connective tissue disease (20 sources) Pain of right thigh; Translations: [Pain in right thigh] Onset: 3 01-19-2023 Episodic Other gastrointestinal disorders (20 sources) 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; Translations: [Irritable bowel syndrome with constipation] Onset: 4 10-27-2023 Chronic Other gastrointestinal disorders (2 sources) Dysphagia; Translations: [Dysphagia, pharyngoesophageal phase] 11-01-2024 Episodic Other lower respiratory disease (1 source) Chronic cough; Translations: [Chronic cough] Onset: Episodic Other nervous system disorders (20 sources) [...] Translations: [Unspecified atherosclerosis] Onset: 3 09-18-2022 Chronic Residual codes; unclassified (1 source) Pain, unspecified; Translations: [Pain, unspecified] Onset: 5 Episodic Spondylosis; intervertebral disc disorders; other back [...] Acute and unspecified renal failure (20 sources) Gdjvx-bi-eertkxh renal failure; Translations: [Acute kidney failure, unspecified] [...] of colon] Onset: 09-18-2022 09-18-2022 Episodic Other gastrointestinal disorders (20 sources) History [...] Coag (Bld) [Time] 29 s Normal 26-37 [facility] Comment on above: Performed By: #### C BCA, PINR, 33895-4, BMP, 33145-4 #### [facility] ([id number]) [address] [place] [address] #### HA1C #### [facility] ([id number]) [address] [facility] [place] [address] BASIC METABOLIC PANELon - Anion gap [Moles/Vol] 9 mmol/L Normal 5-15 [facility] Comment on above: Performed By: #### C BCA, PINR, 95846-4, BMP, 47328-9 #### [facility] ([id number]) [address] [place] [address] #### HA1C #### [facility] ([id number]) [address] [facility], [address] [place] [address] Calcium [Mass/Vol] 8.5 mg/dL Normal 8.5-10.5 [facility] Comment on above: Performed By: #### C BCA, PINR, 05435-3, BMP, 19255-3 #### [facility] ([id number]) [address] [place] [address] #### HA1C #### [facility] ([id number]) [address] [facility], [address] [place] [address] Chloride [Moles/Vol] 107 mmol/L Normal 98-109 [facility] Comment on above: Performed By: #### C BCA, PINR, 64211-6, BMP, 83595-2 #### [facility] ([id number]) [address] [place] [address] #### HA1C #### [facility] ([id number]) [facility], [address] [place] [address] CO2 [Moles/Vol] 26 mmol/L Normal 22-32 [facility] Comment on above: Performed By: #### C BCA, PINR, 12852-2, BMP, 10784-5 #### [facility] ([id number]) [address] [place] [address] #### HA1C #### [facility] ([id number]) [address] [facility] [address], [address] [place] [address] Creatinine [Mass/Vol] 1.52 mg/dL High 0.70-1.20 [facility] Comment on above: Result Comment: METH OD TRACEABLE TO IDMS STANDARD Performed By: #### C BCA, PINR, 59889-9, BMP, 85709-1 #### [facility] ([id number]) [address] [place] [address] #### HA1C #### [facility] ([id number]) [address] [facility] [address] [place] [address] GFR/1.73 sq M.predicted among non-blacks MDRD (S/P/Bld) [Vol rate/Area] 47 mL/min/{1.73_m2} Low >=60 [facility] Comment on above: Result Comment: eGFR not reported due to non-numeric value for Creatinine. Reported eGFR is based on the CKD-EPI 2020 equation that does not use a race coefficient. Performed By: #### C ALLY PINR, 14815-2, BMP, 75909-9 #### [facility] ([id number]) [address] [place] [address] #### HA1C #### [facility] ([id number]) [address] [facility], [address] [address] Glucose [Mass/Vol] 121 mg/dL High 65-99 [facility] Comment on above: Performed By: #### C ALLY PINR, 13599-5, BMP, 50498-9 #### [facility] ([id number]) [address] [place] [address] #### HA1C #### [facility] ([id number]) [address] [facility] [facility] [facility] [address] [place] [address] Potassium [Moles/Vol] 3.8 mmol/L Normal 3.5-5.0 [facility] Comment on above: Performed By: #### C ALLY, PINR, 05506-1, BMP, 81535-7 #### [facility] ([id number]) [address] [place] [address] #### HA1C #### [facility] ([id number]) [address] [facility], [facility] [address] [place] [address] Sodium [Moles/Vol] 142 mmol/L Normal 134-146 [facility] Comment on above: Performed By: #### C BCA, PINR, 72915-4, BMP, 41251-0 #### [facility] ([id number]) [address] [place] [address] #### HA1C #### [facility] ([id number]) [address], [address] [place] [address] Urea nitrogen [Mass/Vol] 21 mg/dL Normal 5-27 [facility] Comment on above: Performed By: #### C BCA, PINR, 54664-6, BMP, 41938-1 #### [facility] ([id number]) [address] [place] [address] #### HA1C #### [facility] ([id number]) [address], [address] [place] [address] CBC WITH AUTO DIFFERENTIALon 05-24-2025 BASOPHILS ABSOLUTE COUNT (10*3/UL) BY AUTOMATED COUNT 0.0 10*3/uL Normal 0.0-0.2 [facility] Comment on above: Performed By: #### C BCA, PINR, 95076-4, BMP, 70508-5 #### [facility] ([id number]) [address] [place] [address] #### HA1C #### [facility] ([id number]) [address], [address] [place] [address] BASOPHILS RELATIVE PERCENT BY AUTOMATED COUNT 0.5 % Normal [facility] Comment on above: Performed By: #### C BCA, PINR, 14598-9, BMP, 36855-7 #### [facility] ([id number]) [address] [place] [address] #### HA1C #### [facility] ([id number]) [address] [place] [address] CELLAVISION DIFFERENTIAL TYPE AUTOMATED DIFFERENTIAL Normal [facility] Comment on above: Performed By: #### C SHRUTHI CANALES, 57985-8, BMP, 48444-6 #### [facility] ([id number]) [address] [place] [address] #### HA1C #### [facility] ([id number]) [address] [facility] [facility] [place] [address] Eosinophils (Bld) [#/Vol] 0.2 10*3/uL Normal 0.0-0.4 [facility] Comment on above: Performed By: #### C SHRUTHI CANALES, 64365-8, BMP, 81506-3 #### [facility] ([id number]) [address] [place] [address] #### HA1C #### [facility] ([id number]) [address] [facility] [place] [address] EOSINOPHILS RELATIVE PERCENT BY AUTOMATED COUNT 3.7 % Normal [facility] Comment on above: Performed By: #### C SHRUTHI CANALES, 10593-2, BMP, 60430-5 #### [facility] ([id number]) [address] [place] [address] #### HA1C #### [facility] ([id number]) [address] [facility] [place] [address] Erythrocyte distribution width (RBC) [Ratio] 15.2 % High 11.5-15 [facility] Comment on above: Performed By: #### C SHRUTHI CANALES, 09771-0, BMP, 46609-9 #### [facility] ([id number]) [address] [place] [address] #### HA1C #### [facility] ([id number]) [address], [address] [place] [address] Hematocrit (Bld) [Volume fraction] 40.1 % Normal 39-50 [facility] Comment on above: Performed By: #### C BCA, PINR, 08127-5, BMP, 78986-4 #### [facility] ([id number]) [address] [place] [address] #### HA1C #### [facility] ([id number]) [address], [address] [place] [address] Hemoglobin (Bld) [Mass/Vol] 13.4 g/dL Normal 13-17 [facility] Comment on above: Performed By: #### C BCA, PINR, 96835-7, BMP, 34427-3 #### [facility] ([id number]) [address] [place] [address] #### HA1C #### [facility] ([id number]) [address], [address] [place] [address] LYMPHOCYTES ABSOLUTE COUNT (10*3/UL) BY AUTOMATED COUNT 2.0 10*3/uL Normal 1.0-3.5 [facility] Comment on above: Performed By: #### C BCA, PINR, 83201-1, BMP, 66998-1 #### [facility] ([id number]) [address] [place] [address] #### HA1C #### [facility] ([id number]) [address], [address] [place] [address] LYMPHOCYTES RELATIVE PERCENT BY AUTOMATED COUNT 32.6 % Normal [facility] Comment on above: Performed By: #### C BCA, PINR, 28967-3, BMP, 63090-3 #### [facility] ([id number]) [address] [place] [address] #### HA1C #### [facility] ([id number]) [address] [facility] [place] [address] MCH (RBC) [Entitic mass] 29.0 pg Normal 27-34 [facility] Comment on above: Performed By: #### C BCA, PINR, 48021-6, BMP, 17130-4 #### [facility] ([id number]) [address] [place] [address] #### HA1C #### [facility] ([id number]) [address] [facility] [place] [address] MCHC (RBC) [Mass/Vol] 33.4 g/dL Normal 32-36 [facility] Comment on above: Performed By: #### C BCA, PINR, 78936-0, BMP, 21548-0 #### [facility] ([id number]) [address] [place] [address] #### HA1C #### [facility] ([id number]) [address] [facility] [place] [address] MCV (RBC) [Entitic vol] 87 fL Normal 80-100 [facility] Comment on above: Performed By: #### C ALLY, PINR, 36963-4, BMP, 49473-8 #### [facility] ([id number]) [address] [place] [address] #### HA1C #### [facility] ([id number]) [address] [facility] [place] [address] MONOCYTES ABSOLUTE COUNT (10*3/UL) BY AUTOMATED COUNT 0.5 10*3/uL Normal 0.0-0.9 [facility] Comment on above: Performed By: #### C BCA, PINR, 67849-5, BMP, 19768-6 #### [facility] ([id number]) [address] [place] [address] #### HA1C #### [facility] ([id number]) [address] [facility] [place] [address] MONOCYTES RELATIVE PERCENT BY AUTOMATED COUNT 8.2 % Normal [facility] Comment on above: Performed By: #### C BCA, PINR, 92531-6, BMP, 06094-0 #### [facility] ([id number]) [address] [place] [address] #### HA1C #### [facility] ([id number]) [address] [facility] [place] [address] NEUTROPHILS ABSOLUTE COUNT BY AUTOMATED COUNT 3.4 10*3/uL Normal 1.5-6.6 [facility] Comment on above: Performed By: #### C BCA, PINR, 24881-5, BMP, 30316-3 #### [facility] ([id number]) [address] [place] [address] #### HA1C #### [facility] ([id number]) [address] [place] [address], [address] [address] NEUTROPHILS RELATIVE PERCENT BY AUTOMATED COUNT 55.0 % Normal [facility] Comment on above: Performed By: #### C BCA, PINR, 27226-9, BMP, 00572-5 #### [facility] ([id number]) [address] [place] [address] #### HA1C #### [facility] ([id number]) [address] [facility] [place] [address] Platelet mean volume (Bld) [Entitic vol] 7.1 fL Normal 7-12 [facility] Comment on above: Performed By: #### C BCA, PINR, 65744-0, BMP, 41047-4 #### [facility] ([id number]) [address] [place] [address] #### HA1C #### [facility] ([id number]) [address] [facility], [address] [place] [address] Platelets (Bld) [#/Vol] 172 10*3/uL Normal 150-450 [facility] Comment on above: Performed By: #### C BCA, PINR, 28000-0, BMP, 14041-3 #### [facility] ([id number]) [address] [place] [address] #### HA1C #### [facility] ([id number]) [address] [place] [address], [address] [address] RBC COUNT 4.63 X10E12/L Normal 4.1-5.7 [facility] Comment on above: Performed By: #### C BCA, PINR, 34742-1, BMP, 75305-1 #### [facility] ([id number]) [address] [place] [address] #### HA1C #### [facility] ([id number]) [address] [place] [address], [address] [address] WBC (Bld) [#/Vol] 6.2 10*3/uL Normal 4-11 [facility] Comment on above: Performed By: #### C BCA, PINR, 07465-5, BMP, 39998-0 #### [facility] ([id number]) [address] [place] [address] #### HA1C #### [facility] ([id number]) [address] [place] [address], [address] [address] D-DIMERon 05-24-2025 D DIMER 199 ng/mL Normal 1-255 [facility] Comment on above: Result Comment: Resu lts <255 ng/mL DDU: The presensence of a VTE can safely be excluded with a negative D-Dimer result and Wells score. A negative result doesn't exclude the possibility of DIC. The test should be repeated along with other diagnostic tests if the patient's symptoms persist or worsen. Performed By: #### C BCA, PINR, 02531-4, BMP, 39622-0 #### [facility] ([id number]) [address] [place] [address] #### HA1C #### [facility] ([id number]) [address] [place] [address] LACTATE W/ REFLEXon 05-24-20 25 LACTATE W/REFLEX 0.7 mmol/L Normal 0.4-2.0 [facility] Comment on above: Order Comment: Resul t did not trigger repeat Lactate,re-order if needed. Performed By: #### C BCA, PINR, 44390-0, BMP, 51851-9 #### [facility] ([id number]) [address] [place] [address] #### HA1C #### [facility] ([id number]) [address] [facility] [place] [address] MAGNESIUMon 05-24-2025 Magnesium [Mass/Vol] 1.7 mg/dL Low 1.8-2.6 [facility] Comment on above: Performed By: #### C BCA, PINR, 83246-6, BMP, 87194-8 #### [facility] ([id number]) [address] [place] [address] #### HA1C #### [facility] ([id number]) [address] [facility] [place] [address] PROTIME AND INRon 05-24-2025 INR 1.1 Normal 0.9-1.2 [facility] Comment on above: Performed By: #### C BCA, PINR, 68863-6, BMP, 31817-4 #### [facility] ([id number]) [address] [place] [address] #### HA1C #### [facility] ([id number]) [address] [facility], [address] [place] [address] PT Coag (PPP) [Time] 12.3 s Normal 9.8-13.2 [facility] Comment on above: Performed By: #### C BCA, PINR, 96081-6, BMP, 03196-7 #### [facility] ([id number]) [address] [place] [address] #### HA1C #### [facility] ([id number]) [address] [facility], [address] [place] [address] SARS/FLU A+B/RSV BY NAAT/MOL ECULAR (M4RT COLLECTION TUBE)on 05-24-2025 SARS/FLU A+B/RSV BY NAAT/MOLECULAR (M4RT COLLECTION TUBE) FLU A PCR Negative FLU B PCR Negative RSV BY PCR Negative SARS COV 2 BY PCR Not Detected Normal Not Detected [facility] Comment on above: Order Comment: The X [...] operators who are performing tests using either [employer] or [employer] systems and is limited to laboratories that [...] resolved with specimen repeat.Fact Sheet for Healthcare Providers:https://www.fda.gov/media/697547/downloadFact Sheet for Patients:https://www.fda.gov/media/106218/download Performed By: #### C ALLY, PINR, 95733-4, BMP, 60118-3 #### [facility] ([id number]) [address] [place] [address] #### HA1C #### [facility] ([id number]) [address] [place] [address], [address] [place] [address] TROP I, HIGH SENSITIVITY 1 H OURon 05-24-2025 TROPONIN I, HIGH SENSITIVITY 5 ng/L Normal <21 [facility] Comment on above: Performed By: #### C BCA, PINR, 63288-3, BMP, 36604-0 #### [facility] ([id number]) [address] [place] [address] #### HA1C #### [facility] ([id number]) [address] [place] [address], [address] [place] [address] TROPONIN I, HIGH SENSITIVITY 0 HOURon 05-24-2025 TROPONIN I, HIGH SENSITIVITY 5 ng/L Normal <21 [facility] Comment on above: Performed By: #### C BCA, PINR, 76575-5, BMP, 44414-5 #### [facility] ([id number]) [address] [place] [address] #### HA1C #### [facility] ([id number]) [address] [facility], [address] [place] [address] XR CHEST 1 VWon 05-24-2025 XR CHEST [...] Caleb Martinez on 05/24/2025 8:43 AM Normal [facility] BASIC METABOLIC PANELon 05 Anion gap [Moles/Vol] 4 mmol/L Low 5-15 [facility] Comment on above: Performed By: #### C BCA, PINR, 81894-1, BMP, 87217-0 #### [facility] ([id number]) [address] [place] [address] #### HA1C #### [facility] ([id number]) [address] [facility], [address] [place] [address] Calcium [Mass/Vol] 8.0 mg/dL Low 8.5-10.5 [facility] Comment on above: Performed By: #### C BCA, PINR, 33111-9, BMP, 30141-1 #### [facility] ([id number]) [address] [place] [address] #### HA1C #### [facility] ([id number]) [address] [facility], [address] [place] [address] Chloride [Moles/Vol] 111 mmol/L High 98-109 [facility] Comment on above: Performed By: #### C BCA, PINR, 17329-9, BMP, 09723-6 #### [facility] ([id number]) [address] [place] [address] #### HA1C #### [facility] ([id number]) [address], [address] [place] [address] CO2 [Moles/Vol] 23 mmol/L Normal 22-32 [facility] Comment on above: Performed By: #### C BCA, PINR, 06047-7, BMP, 42722-7 #### [facility] ([id number]) [address] [place] [address] #### HA1C #### [facility] ([id number]) [address], [address] [place] [address] Creatinine [Mass/Vol] 1.69 mg/dL High 0.70-1.20 [facility] Comment on above: Result Comment: METH OD TRACEABLE TO IDMS STANDARD Performed By: #### C BCA, PINR, 18600-3, BMP, 58633-5 #### [facility] ([id number]) [address] [place] [address] #### HA1C #### [facility] ([id number]) [address], [address] [place] [address] GFR/1.73 sq M.predicted among non-blacks MDRD (S/P/Bld) [Vol rate/Area] 41 mL/min/{1.73_m2} Low >=60 [facility] Comment on above: Result Comment: eGFR not reported due to non-numeric value for Creatinine. Reported eGFR is based on the CKD-EPI 202 equation that does not use a race coefficient. Performed By: #### C BCA, PINR, 56005-7, BMP, 12154-5 #### [facility] ([id number]) [address] [place] [address] #### HA1C #### [facility] ([id number]) [address], [address] [place] [address] Glucose [Mass/Vol] 89 mg/dL Normal 65-99 [facility] Comment on above: Performed By: #### C BCA, PINR, 65583-7, BMP, 92790-7 #### [facility] ([id number]) [address] [place] [address] #### HA1C #### [facility] ([id number]) [address] [facility], [address] [place] [address] Potassium [Moles/Vol] 4.3 mmol/L Normal 3.5-5.0 [facility] Comment on above: Performed By: #### C BCA, PINR, 15487-5, BMP, 08732-7 #### [facility] ([id number]) [address] [place] [address] #### HA1C #### [facility] ([id number]) [address] [facility], [address] [place] [address] Sodium [Moles/Vol] 138 mmol/L Normal 134-146 [facility] Comment on above: Performed By: #### C BCA, PINR, 13966-1, BMP, 92177-8 #### [facility] ([id number]) [address] [place] [address] #### HA1C #### [facility] ([id number]) [address] [facility], [address] [place] [address] Urea nitrogen [Mass/Vol] 25 mg/dL Normal 5-27 [facility] Comment on above: Performed By: #### C BCA, PINR, 53370-4, BMP, 99601-2 #### [facility] ([id number]) [address] [place] [address] #### HA1C #### [facility] ([id number]) [address], [address] [place] [address] CBC WITH AUTO DIFFERENTIALon 01-22-2025 BASOPHILS ABSOLUTE COUNT (10*3/UL) BY AUTOMATED COUNT 0.0 10*3/uL Normal 0.0-0.2 [facility] Comment on above: Performed By: #### C BCA, PINR, 91102-8, BMP, 88796-0 #### [facility] ([id number]) [address] [place] [address] #### HA1C #### [facility] ([id number]) [address] [facility], [address] [place] [address] BASOPHILS RELATIVE PERCENT BY AUTOMATED COUNT 0.3 % Normal [facility] Comment on above: Performed By: #### C BCA, PINR, 62200-2, BMP, 93631-8 #### [facility] ([id number]) [address] [place] [address] #### HA1C #### [facility] ([id number]) [address] [facility], [address] [place] [address] CELLAVISION DIFFERENTIAL TYPE AUTOMATED DIFFERENTIAL Normal [facility] Comment on above: Performed By: #### C BCA, PINR, 24638-0, BMP, 08727-5 #### [facility] ([id number]) [address] [place] [address] #### HA1C #### [facility] ([id number]) [address], [address] [place] [address] Eosinophils (Bld) [#/Vol] 0.2 10*3/uL Normal 0.0-0.4 [facility] Comment on above: Performed By: #### C BCA, PINR, 18554-3, BMP, 03741-4 #### [facility] ([id number]) [address] [place] [address] #### HA1C #### [facility] ([id number]) [address], [address] [place] [address] EOSINOPHILS RELATIVE PERCENT BY AUTOMATED COUNT 2.9 % Normal [facility] Comment on above: Performed By: #### C BCA, PINR, 36385-7, BMP, 45552-5 #### [facility] ([id number]) [address] [place] [address] #### HA1C #### [facility] ([id number]) [address], [address] [place] [address] Erythrocyte distribution width (RBC) [Ratio] 14.3 % Normal 11.5-15 [facility] Comment on above: Performed By: #### C BCA, PINR, 63981-3, BMP, 28455-8 #### [facility] ([id number]) [address] [place] [address] #### HA1C #### [facility] ([id number]) [address], [address] [place] [address] Hematocrit (Bld) [Volume fraction] 39.7 % Normal 39-50 [facility] Comment on above: Performed By: #### C BCA, PINR, 34879-3, BMP, 41760-1 #### [facility] ([id number]) [address] [place] [address] #### HA1C #### [facility] ([id number]) [address], [address] [place] [address] Hemoglobin (Bld) [Mass/Vol] 13.4 g/dL Normal 13-17 [facility] Comment on above: Performed By: #### C BCA, PINR, 35353-3, BMP, 08157-2 #### [facility] ([id number]) [address] [place] [address] #### HA1C #### [facility] ([id number]) [address] [facility], [address] [place] [address] LYMPHOCYTES ABSOLUTE COUNT (10*3/UL) BY AUTOMATED COUNT 2.1 10*3/uL Normal 1.0-3.5 [facility] Comment on above: Performed By: #### C BCA, PINR, 93765-4, BMP, 59937-8 #### [facility] ([id number]) [address] [place] [address] #### HA1C #### [facility] ([id number]) [facility] [address] [address] LYMPHOCYTES RELATIVE PERCENT BY AUTOMATED COUNT 32.7 % Normal [facility] Comment on above: Performed By: #### C BCA, PINR, 63805-6, BMP, 01561-9 #### [facility] ([id number]) [address] [place] [address] #### HA1C #### [facility] ([id number]) [facility] [address] [address] MCH (RBC) [Entitic mass] 29.3 pg Normal 27-34 [facility] Comment on above: Performed By: #### C BCA, PINR, 95595-9, BMP, 86545-0 #### [facility] ([id number]) [address] [place] [address] #### HA1C #### [facility] ([id number]) [address] [facility] [facility] [address] [place] [address] MCHC (RBC) [Mass/Vol] 33.8 g/dL Normal 32-36 [facility] Comment on above: Performed By: #### C BCA, PINR, 60794-3, BMP, 03177-3 #### [facility] ([id number]) [address] [place] [address] #### HA1C #### [facility] ([id number]) [address], [address] [place] [address] MCV (RBC) [Entitic vol] 87 fL Normal 80-100 [facility] Comment on above: Performed By: #### C BCA, PINR, 35642-5, BMP, 56079-0 #### [facility] ([id number]) [address] [place] [address] #### HA1C #### [facility] ([id number]) [address], [address] [place] [address] MONOCYTES ABSOLUTE COUNT (10*3/UL) BY AUTOMATED COUNT 0.5 10*3/uL Normal 0.0-0.9 [facility] Comment on above: Performed By: #### C BCA, PINR, 27881-4, BMP, 21796-3 #### [facility] ([id number]) [address] [place] [address] #### HA1C #### [facility] ([id number]) [address], [address] [place] [address] MONOCYTES RELATIVE PERCENT BY AUTOMATED COUNT 8.2 % Normal [facility] Comment on above: Performed By: #### C BCA, PINR, 38896-4, BMP, 81199-9 #### [facility] ([id number]) [address] [place] [address]695 #### HA1C #### [facility] ([id number]) [address], [address] [place] [address] NEUTROPHILS ABSOLUTE COUNT BY AUTOMATED COUNT 3.6 10*3/uL Normal 1.5-6.6 [facility] Comment on above: Performed By: #### C BCA, PINR, 41882-1, BMP, 97660-0 #### [facility] ([id number]) [address] [place] [address] #### HA1C #### [facility] ([id number]) [address] [facility], [address] [place] [address] NEUTROPHILS RELATIVE PERCENT BY AUTOMATED COUNT 55.9 % Normal [facility] Comment on above: Performed By: #### C ALLY, PINR, 91260-5, BMP, 33527-9 #### [facility] ([id number]) [address] [place] [address] #### HA1C #### [facility] ([id number]) [address] [place] [address], [address] [place] [address] Platelet mean volume (Bld) [Entitic vol] 7.5 fL Normal 7-12 [facility] Comment on above: Performed By: #### C ALLY, PINR, 97740-4, BMP, 07912-9 #### [facility] ([id number]) [address] [place] [address] #### HA1C #### [facility] ([id number]) [address] [place] [address], [address] [place] [address] Platelets (Bld) [#/Vol] 194 10*3/uL Normal 150-450 [facility] Comment on above: Performed By: #### Matthew CANALES, PINR, 42398-9, BMP, 77901-7 #### [facility] ([id number]) [address] [place] [address] #### HA1C #### [facility] ([id number]) [facility], [address] [place] [address] RBC COUNT 4.58 X10E12/L Normal 4.1-5.7 [facility] Comment on above: Performed By: #### Matthew CANALES, PINR, 08356-3, BMP, 08602-5 #### [facility] ([id number]) [address] [place] [address] #### HA1C #### [facility] ([id number]) [address], [address] [place] [address] WBC (Bld) [#/Vol] 6.5 10*3/uL Normal 4-11 [facility] Comment on above: Performed By: #### C BCA, PINR, 41081-0, BMP, 11150-2 #### [facility] ([id number]) [address] [place] [address] #### HA1C #### [facility] ([id number]) [address], [address] [place] [address] MAGNESIUMon 01-22-2025 Magnesium [Mass/Vol] 1.8 mg/dL Normal 1.8-2.6 [facility] Comment on above: Performed By: #### C BCA, PINR, 60424-3, BMP, 21496-2 #### [facility] ([id number]) [address] [place] [address] #### HA1C #### [facility] ([id number]) [address], [address] [place] [address] Laboratory - Chemistry and C hemistry - challengeon 12-07-2024 Free T3 [Mass/Vol] 3.2 pg/mL 2.3 - 4.2 pg/mL [facility] Free T4 [Mass/Vol] 1.1 ng/dL 0.8 - 1.8 ng/dL [facility] Prostate specific Ag [Mass/Vol] 0.32 ng/mL < OR = 4.00 [facility] Comment on above: The total PSA value from this assay system is standardized against the WHO standard. The test result will be approximately 20% lower when compared to the equimolar-standardized total PSA ([place]). Comparison of serial PSA results should be interpreted with this fact in mind. This test was performed using the Siemens chemiluminescent method. Values obtained from different assay methods cannot be used interchangeably. PSA levels, regardless of value, should not be interpreted as absolute evidence of the presence or absence of disease. TSH Qn 4.48 m[IU]/L [facility] are No Panel Informationon 12-07 Performing Organization Information Site ID: QPT Name: [facility] Address: [address] [place] [address] Director: Ariel Bermeo MD [facility] e PSA, TOTALon 12-07-2024 PSA, TOTAL 0.32 ng/mL Normal < OR = 4.00 [facility] Comment on above: Result Comment: The total PSA value from this assay system is standardized against the WHO standard. The test result will be approximately 20% lower when compared to the equimolar-standardized total PSA ([place]). Comparison of serial PSA results should be interpreted with this fact in mind. This test was performed using the Siemens chemiluminescent method. Values obtained from different assay methods cannot be used interchangeably. PSA levels, regardless of value, should not be interpreted as absolute evidence of the presence or absence of disease. Performed By: #### 8 66, 899, 07152, 5363 #### [facility] [place] [address] Emergency Management Consultant: Ariel Bermeo MD T3, 12-07-2024 Free T3 [Mass/Vol] 3.2 pg/mL Normal 2.3-4.2 [facility] Comment on above: Performed By: #### 8 66, 899, 60684, 5363 #### [facility] [address], [address] [place] [address] Emergency Management Consultant: Ariel Bermeo MD T4, 12-07-2024 Free T4 [Mass/Vol] 1.1 ng/dL Normal 0.8-1.8 [facility] Comment on above: Performed By: #### 8 66, 899, 27658, 5363 #### [facility] [address], [address] [place] [address] Emergency Management Consultant: Ariel Bermeo MD TSHon 12-07-2024 TSH Qn 4.48 m[IU]/L Normal 0.40-4.50 [facility] Comment on above: Performed By: #### 8 66, 899, 82975, 5363 #### [facility] [address], [address] [place] [address] Emergency Management Consultant: Ariel Bermeo MD EMG 2 Extremitieson 11-17-19 25 [facility] NVC 11-12 NervesOrdered By: Tyler Sanchez on 11-16-2024 [facility] Work Phone: CBC AND AUTO DIFFon 10-07-19 ABSOLUTE BASOPHIL 0.0 X10E9/L Normal 0.0-0.2 [facility] Comment on above: Performed By: #### C ALLY, PINR, 14080-8, BMP, 61062-6 #### [facility] ([id number]) [address] [place] [address] #### HA1C #### [facility] ([id number]) [address] [place] [address], [address] [place] [address] ABSOLUTE NEUTROPHIL 3.1 X10E9/L Normal 1.5-6.6 [facility] Comment on above: Performed By: #### C BCA, PINR, 34801-7, BMP, 39543-4 #### [facility] ([id number]) [address] [place] [address] 17884 #### HA1C #### [facility] ([id number]) [address] [place] [address], [address] [place] [address] Basophils/100 WBC (Bld) 0.4 % Normal [facility] Comment on above: Performed By: #### C BCA, PINR, 05534-3, BMP, 39550-5 #### [facility] ([id number]) [address] [place] [address] 20856 #### HA1C #### [facility] ([id number]) [address], [address] [place] [address] Eosinophils (Bld) [#/Vol] 0.1 10*3/uL Normal 0.0-0.4 [facility] Comment on above: Performed By: #### C BCA, PINR, 85957-7, BMP, 56949-5 #### [facility] ([id number]) [address] [place] [address] 17557 #### HA1C #### [facility] ([id number]) [address] [facility], [address] [place] [address] Eosinophils/100 WBC (Bld) 2.0 % Normal [facility] Comment on above: Performed By: #### C BCA, PINR, 51879-4, BMP, 31015-2 #### [facility] ([id number]) [address] [place] [address] 99853 #### HA1C #### [facility] ([id number]) [address] [facility], [address] [place] [address] Erythrocyte distribution width (RBC) [Ratio] 14.5 % Normal 11.5-15.0 [facility] Comment on above: Performed By: #### C BCA, PINR, 51573-8, BMP, 98138-4 #### [facility] ([id number]) [address] [place] [address] 09560 #### HA1C #### [facility] ([id number]) [address] [facility], [address] [place] [address] Hematocrit (Bld) [Volume fraction] 39.2 % Normal 39-49 [facility] Comment on above: Performed By: #### C BCA, PINR, 04479-9, BMP, 07433-3 #### [facility] ([id number]) [address] [place] [address] 11107 #### HA1C #### [facility] ([id number]) [address], [address] [place] [address] Hemoglobin (Bld) [Mass/Vol] 13.3 g/dL Normal 13.0-17.0 [facility] Comment on above: Performed By: #### C BCA, PINR, 91189-0, BMP, 30615-3 #### [facility] ([id number]) [address] [place] [address] 40949 #### HA1C #### [facility] ([id number]) [address] [facility], [address] [place] [address] Lymphocytes (Bld) [#/Vol] 2.0 10*3/uL Normal 1.0-3.5 [facility] Comment on above: Performed By: #### C BCA, PINR, 52402-9, BMP, 11400-3 #### [facility] ([id number]) [address] [place] [address] 20702 #### HA1C #### [facility] ([id number]) [address] [facility], [address] [place] [address] Lymphocytes/100 WBC (Bld) 34.9 % Normal [facility] Comment on above: Performed By: #### C BCA, PINR, 56589-0, BMP, 30859-1 #### [facility] ([id number]) [address] [place] [address]78[address] #### HA1C #### [facility] ([id number]) [address], [address] [place] [address] MCH (RBC) [Entitic mass] 29.8 pg Normal 27-34 [facility] Comment on above: Performed By: #### C BCA, PINR, 49070-8, BMP, 32482-7 #### [facility] ([id number]) [address] [place] [address]7074 #### HA1C #### [facility] ([id number]) [address] [facility], [address] [place] [address] MCHC (RBC) [Mass/Vol] 33.9 g/dL Normal 32-36 [facility] Comment on above: Performed By: #### C BCA, PINR, 27485-8, BMP, 51055-0 #### [facility] ([id number]) [address] [place] [address]26[address] #### HA1C #### [facility] ([id number]) [address] [facility], [address] [place] [address] MCV (RBC) [Entitic vol] 88 fL Normal 80-100 [facility] Comment on above: Performed By: #### C BCA, PINR, 68497-7, BMP, 61381-7 #### [facility] ([id number]) [address] [place] [address] #### HA1C #### [facility] ([id number]) [address] [facility], [address] [place] [address] Monocytes (Bld) [#/Vol] 0.5 10*3/uL Normal 0-0.9 [facility] Comment on above: Performed By: #### C BCA, PINR, 18679-9, BMP, 66083-2 #### [facility] ([id number]) [address] [place] [address] #### HA1C #### [facility] ([id number]) [address] [facility], [address] [place] [address] Monocytes/100 WBC (Bld) 8.6 % Normal [facility] Comment on above: Performed By: #### C BCA, PINR, 98927-6, BMP, 23900-9 #### [facility] ([id number]) [address] [place] [address] #### HA1C #### [facility] ([id number]) [address] [facility] [facility], [address] [place] [address] Neutrophils/100 WBC (Bld) 54.1 % Normal [facility] Comment on above: Performed By: #### C ALLY, PINR, 73053-1, BMP, 63795-1 #### [facility] ([id number]) [address] [place] [address] #### HA1C #### [facility] ([id number]) [address] [facility], [address] [place] [address] Platelet mean volume (Bld) [Entitic vol] 8.0 fL Normal 7-12 [facility] Comment on above: Performed By: #### C ALLY, PINR, 02975-0, BMP, 13723-8 #### [facility] ([id number]) [address] [place] [address] #### HA1C #### [facility] ([id number]) [address] [facility], [address] [place], [place] [address] Platelets (Bld) [#/Vol] 164 10*3/uL Normal 150-450 [facility] Comment on above: Performed By: #### C ALLY, PINR, 31656-7, BMP, 55729-5 #### [facility] ([id number]) [address] [place] [address]7 #### HA1C #### [facility] ([id number]) [address] [facility] [facility], [address] [place] [address] RBC COUNT 4.45 X10E12/L Normal 4.10-5.70 [facility] Comment on above: Performed By: #### Matthew BCA, PINR, 12254-4, BMP, 58122-4 #### [facility] ([id number]) [address] [place] [address] 36677 #### HA1C #### [facility] ([id number]) [address], [address] [place] [address] WBC (Bld) [#/Vol] 5.7 10*3/uL Normal 4.0-11.0 [facility] Comment on above: Performed By: #### C BCA, PINR, 44017-8, BMP, 71531-5 #### [facility] ([id number]) [address] [place] [address] 45481 #### HA1C #### [facility] ([id number]) [address], [address] [place] [address] COMPREHENSIVE METABOLIC PANE Reji 10-07-2024 Albumin [Mass/Vol] 3.6 g/dL Normal 3.2-5.3 [facility] Comment on above: Performed By: #### C BCA, PINR, 96173-3, BMP, 25314-3 #### [facility] ([id number]) [address] [place] [address] 55848 #### HA1C #### [facility] ([id number]) [address], [address] [place] [address] ALP [Catalytic activity/Vol] 67 U/L Normal 39-130 [facility] Comment on above: Performed By: #### C BCA, PINR, 99151-0, BMP, 74670-6 #### [facility] ([id number]) [address] [place] [address] 48952 #### HA1C #### [facility] ([id number]) [address], [address] [place] [address] ALT [Catalytic activity/Vol] 32 U/L Normal 0-40 [facility] Comment on above: Performed By: #### C BCA, PINR, 78318-4, BMP, 49050-8 #### [facility] ([id number]) [address] [place] [address] 23047 #### HA1C #### [facility] ([id number]) [address], [address] [place] [address] Anion gap [Moles/Vol] 8 mmol/L Normal 5-15 [facility] Comment on above: Performed By: #### C BCA, PINR, 84980-2, BMP, 27267-3 #### [facility] ([id number]) [address] [place] [address] 79842 #### HA1C #### [facility] ([id number]) [address] [facility] [address] [place] [address] AST [Catalytic activity/Vol] 30 U/L Normal 0-41 [facility] Comment on above: Performed By: #### C BCA, PINR, 66270-2, BMP, 65685-7 #### [facility] ([id number]) [address] [place] [address] 95895 #### HA1C #### [facility] ([id number]) [address] [facility] [place] [address] Bilirubin [Mass/Vol] 0.9 mg/dL Normal 0.3-1.2 [facility] Comment on above: Performed By: #### C BCA, PINR, 24772-6, BMP, 05105-8 #### [facility] ([id number]) [address] [place] [address] 90161 #### HA1C #### [facility] ([id number]) [address], [address] [place] [address] Calcium [Mass/Vol] 8.4 mg/dL Low 8.5-10.5 [facility] Comment on above: Performed By: #### C BCA, PINR, 69860-4, BMP, 96012-0 #### [facility] ([id number]) [address] [place] [address] 45338 #### HA1C #### [facility] ([id number]) [address], [address] [place] [address] Chloride [Moles/Vol] 108 mmol/L Normal 98-109 [facility] Comment on above: Performed By: #### C BCA, PINR, 09744-3, BMP, 57151-1 #### [facility] ([id number]) [address] [place] [address] 11874 #### HA1C #### [facility] ([id number]) [address], [address] [place] [address] CO2 [Moles/Vol] 25 mmol/L Normal 22-32 [facility] Comment on above: Performed By: #### C BCA, PINR, 87192-4, BMP, 98490-5 #### [facility] ([id number]) [address] [place] [address] 74568 #### HA1C #### [facility] ([id number]) [address], [address] [place] [address] Creatinine [Mass/Vol] 1.30 mg/dL High 0.70-1.20 [facility] Comment on above: Result Comment: METH OD TRACEABLE TO IDMS STANDARD Performed By: #### C BCA, PINR, 76126-5, BMP, 12104-5 #### [facility] ([id number]) [address] [place] [address] 74696 #### HA1C #### [facility] ([id number]) [address], [address] [place] [address] GFR/1.73 sq M.predicted among non-blacks MDRD (S/P/Bld) [Vol rate/Area] 57 mL/min/{1.73_m2} Low >59 [facility] Comment on above: Result Comment: Reported eGFR is based on the CKD-EPI 2020 equation that does not use a race coefficient. Performed By: #### C BCA, PINR, 62459-1, BMP, 67123-0 #### [facility] ([id number]) [address] [place] [address] 78552 #### HA1C #### [facility] ([id number]) [address], [address] [place] [address] Glucose [Mass/Vol] 89 mg/dL Normal 65-99 [facility] Comment on above: Performed By: #### C BCA, PINR, 77588-4, BMP, 54367-8 #### [facility] ([id number]) [address] [place] [address] 27615 #### HA1C #### [facility] ([id number]) [address] [facility] [facility] [address] [place] [address] Potassium [Moles/Vol] 3.9 mmol/L Normal 3.5-5.0 [facility] Comment on above: Performed By: #### C BCA, PINR, 11306-2, BMP, 93544-1 #### [facility] ([id number]) [address] [place] [address] 17561 #### HA1C #### [facility] ([id number]) [address], [address] [place] [address] Protein [Mass/Vol] 6.1 g/dL Normal 6.0-8.0 [facility] Comment on above: Performed By: #### C BCA, PINR, 12236-2, BMP, 80818-1 #### [facility] ([id number]) [address] [place] [address] 17156 #### HA1C #### [facility] ([id number]) [address] [facility], [address] [place] [address] Sodium [Moles/Vol] 141 mmol/L Normal 134-146 [facility] Comment on above: Performed By: #### C BCA, PINR, 48829-0, BMP, 35597-5 #### [facility] ([id number]) [address] [place] [address] 04659 #### HA1C #### [facility] ([id number]) [address] [place] [address], [address] [place] [address] Urea nitrogen [Mass/Vol] 20 mg/dL Normal 5-27 [facility] Comment on above: Performed By: #### C BCA, PINR, 56848-4, BMP, 27359-7 #### [facility] ([id number]) [address] [place] [address] 31321 #### HA1C #### [facility] ([id number]) [address] [place] [address], [address] [place] [address] MAGNESIUMon 10-07-2024 Magnesium [Mass/Vol] 1.8 mg/dL Normal 1.8-2.6 [facility] Comment on above: Performed By: #### C BCA, PINR, 60441-0, BMP, 84255-1 #### [facility] ([id number]) [address] [place] [address] 19043 #### HA1C #### [facility] ([id number]) [address] [place] [address], [address] [place] [address] CBC AND AUTO DIFFon 10-06-19 25 ABSOLUTE BASOPHIL 0.0 X10E9/L Normal 0.0-0.2 [facility] Comment on above: Performed By: #### C BCA, PINR, 20063-0, BMP, 62151-4 #### [facility] ([id number]) [address] [place] [address] 29639 #### HA1C #### [facility] ([id number]) [address] [facility], [address] [place] [address] ABSOLUTE NEUTROPHIL 3.7 X10E9/L Normal 1.5-6.6 [facility] Comment on above: Performed By: #### C BCA, PINR, 51939-8, BMP, 08623-2 #### [facility] ([id number]) [address] [place] [address] 61636 #### HA1C #### [facility] ([id number]) [address] [place] [address], [address] [place] [address] 07797 Basophils/100 WBC (Bld) 0.5 % Normal [facility] Comment on above: Performed By: #### C BCA, PINR, 62039-0, BMP, 77000-7 #### [facility] ([id number]) [address] [place] [address] 33562 #### HA1C #### [facility] ([id number]) [address] [place] [address], [address] [place] [address] Eosinophils (Bld) [#/Vol] 0.1 10*3/uL Normal 0.0-0.4 [facility] Comment on above: Performed By: #### C BCA, PINR, 49849-8, BMP, 22115-7 #### [facility] ([id number]) [address] [place] [address] 63949 #### HA1C #### [facility] ([id number]) [address] [place] [address], [address] [place] [address]67[address] Eosinophils/100 WBC (Bld) 1.5 % Normal [facility] Comment on above: Performed By: #### C BCA, PINR, 81124-2, BMP, 44114-0 #### [facility] ([id number]) [address] [place] [address] 64670 #### HA1C #### [facility] ([id number]) [address], [address] [place] [address] Erythrocyte distribution width (RBC) [Ratio] 14.7 % Normal 11.5-15.0 [facility] Comment on above: Performed By: #### C BCA, PINR, 17475-2, BMP, 70173-5 #### [facility] ([id number]) [address] [place] [address] 29687 #### HA1C #### [facility] ([id number]) [address], [address] [place] [address] Hematocrit (Bld) [Volume fraction] 41.1 % Normal 39-49 [facility] Comment on above: Performed By: #### C BCA, PINR, 53683-1, BMP, 16975-3 #### [facility] ([id number]) [address] [place] [address] 26351 #### HA1C #### [facility] ([id number]) [address], [address] [place] [address] Hemoglobin (Bld) [Mass/Vol] 13.6 g/dL Normal 13.0-17.0 [facility] Comment on above: Performed By: #### C BCA, PINR, 21640-6, BMP, 68450-8 #### [facility] ([id number]) [address] [place] [address] 25606 #### HA1C #### [facility] ([id number]) [address], [address] [place] [address] Lymphocytes (Bld) [#/Vol] 1.6 10*3/uL Normal 1.0-3.5 [facility] Comment on above: Performed By: #### C BCA, PINR, 82109-3, BMP, 03411-3 #### [facility] ([id number]) [address] [place] [address] 88236 #### HA1C #### [facility] ([id number]) [address], [address] [place] [address] Lymphocytes/100 WBC (Bld) 27.9 % Normal [facility] Comment on above: Performed By: #### C BCA, PINR, 49500-4, BMP, 14660-5 #### [facility] ([id number]) [address] [place] [address] 69066 #### HA1C #### [facility] ([id number]) [address], [address] [place] [address] MCH (RBC) [Entitic mass] 29.4 pg Normal 27-34 [facility] Comment on above: Performed By: #### C BCA, PINR, 68343-6, BMP, 19026-9 #### [facility] ([id number]) [address] [place] [address] 87073 #### HA1C #### [facility] ([id number]) [address], [address] [place] [address] MCHC (RBC) [Mass/Vol] 33.2 g/dL Normal 32-36 [facility] Comment on above: Performed By: #### C BCA, PINR, 91852-6, BMP, 02326-5 #### [facility] ([id number]) [address] [place] [address] 82516 #### HA1C #### [facility] ([id number]) [address], [address] [place] [address] MCV (RBC) [Entitic vol] 89 fL Normal 80-100 [facility] Comment on above: Performed By: #### C BCA, PINR, 32264-5, BMP, 29083-5 #### [facility] ([id number]) [address] [place] [address] 76425 #### HA1C #### [facility] ([id number]) [address], [address] [place] [address] Monocytes (Bld) [#/Vol] 0.3 10*3/uL Normal 0-0.9 [facility] Comment on above: Performed By: #### C BCA, PINR, 72831-3, BMP, 50064-9 #### [facility] ([id number]) [address] [place] [address] 12926 #### HA1C #### [facility] ([id number]) [address], [address] [place] [address] Monocytes/100 WBC (Bld) 6.1 % Normal [facility] Comment on above: Performed By: #### C BCA, PINR, 25703-3, BMP, 32231-1 #### [facility] ([id number]) [address] [place] [address] 56425 #### HA1C #### [facility] ([id number]) [address], [address] [place] [address] Neutrophils/100 WBC (Bld) 64.0 % Normal [facility] Comment on above: Performed By: #### C BCA, PINR, 18281-7, BMP, 69317-5 #### [facility] ([id number]) [address] [place] [address] 90545 #### HA1C #### [facility] ([id number]) [address] [place] [address] Platelet mean volume (Bld) [Entitic vol] 7.8 fL Normal 7-12 [facility] Comment on above: Performed By: #### C BCA, PINR, 96614-0, BMP, 14269-3 #### [facility] ([id number]) [address] [place] [address] 99368 #### HA1C #### [facility] ([id number]) [address] [facility] [place] [address] Platelets (Bld) [#/Vol] 184 10*3/uL Normal 150-450 [facility] Comment on above: Performed By: #### C BCA, PINR, 95228-1, BMP, 66766-3 #### [facility] ([id number]) [address] [place] [address] 50406 #### HA1C #### [facility] ([id number]) [address] [facility] [place] [address] RBC COUNT 4.64 X10E12/L Normal 4.10-5.70 [facility] Comment on above: Performed By: #### C BCA, PINR, 51812-1, BMP, 65567-4 #### [facility] ([id number]) [address] [place] [address] 03925 #### HA1C #### [facility] ([id number]) [address] [facility] [place] [address] WBC (Bld) [#/Vol] 5.7 10*3/uL Normal 4.0-11.0 [facility] Comment on above: Performed By: #### C BCA, PINR, 37273-5, BMP, 58831-6 #### [facility] ([id number]) [address] [place] [address] 20410 #### HA1C #### [facility] ([id number]) [address] [facility], [address] [place] [address] COMPREHENSIVE METABOLIC PANE Reji 10-06-2024 Albumin [Mass/Vol] 3.8 g/dL Normal 3.2-5.3 [facility] Comment on above: Performed By: #### C BCA, PINR, 66443-4, BMP, 59939-2 #### [facility] ([id number]) [address] [place] [address] 19901 #### HA1C #### [facility] ([id number]) [address] [facility], [address] [place] [address] ALP [Catalytic activity/Vol] 76 U/L Normal 39-130 [facility] Comment on above: Performed By: #### C BCA, PINR, 27083-4, BMP, 89783-4 #### [facility] ([id number]) [address] [place] [address] 05080 #### HA1C #### [facility] ([id number]) [address] [facility], [address] [place] [address] ALT [Catalytic activity/Vol] 27 U/L Normal 0-40 [facility] Comment on above: Performed By: #### C BCA, PINR, 40378-2, BMP, 66002-8 #### [facility] ([id number]) [address] [place] [address] 29552 #### HA1C #### [facility] ([id number]) [address] [facility], [address] [place] [address] Anion gap [Moles/Vol] 6 mmol/L Normal 5-15 [facility] Comment on above: Performed By: #### C BCA, PINR, 35029-3, BMP, 74337-0 #### [facility] ([id number]) [address] [place] [address] 61376 #### HA1C #### [facility] ([id number]) [address] [facility], [address] [place] [address] AST [Catalytic activity/Vol] 29 U/L Normal 0-41 [facility] Comment on above: Performed By: #### C BCA, PINR, 68427-4, BMP, 61692-6 #### [facility] ([id number]) [address] [place] [address] 01646 #### HA1C #### [facility] ([id number]) [address] [facility] [facility], [address] [place] [address] Bilirubin [Mass/Vol] 0.7 mg/dL Normal 0.3-1.2 [facility] Comment on above: Performed By: #### C BCA, PINR, 39632-9, BMP, 17682-9 #### [facility] ([id number]) [address] [place] [address] 92518 #### HA1C #### [facility] ([id number]) [address] [facility], [address] [place] [address] Calcium [Mass/Vol] 8.4 mg/dL Low 8.5-10.5 [facility] Comment on above: Performed By: #### C BCA, PINR, 11049-3, BMP, 86752-9 #### [facility] ([id number]) [address] [place] [address] 50960 #### HA1C #### [facility] ([id number]) [address] [facility], [address] [place] [address] Chloride [Moles/Vol] 109 mmol/L Normal 98-109 [facility] Comment on above: Performed By: #### C BCA, PINR, 73268-8, BMP, 12244-9 #### [facility] ([id number]) [address] [place] [address] 22861 #### HA1C #### [facility] ([id number]) [address], [address] [place] [address] CO2 [Moles/Vol] 24 mmol/L Normal 22-32 [facility] Comment on above: Performed By: #### C BCA, PINR, 27776-1, BMP, 39956-9 #### [facility] ([id number]) [address] [place] [address] 50412 #### HA1C #### [facility] ([id number]) [address] [facility], [address] [place] [address] Creatinine [Mass/Vol] 1.56 mg/dL High 0.70-1.20 [facility] Comment on above: Result Comment: METH OD TRACEABLE TO IDMS STANDARD Performed By: #### C BCA, PINR, 07086-5, BMP, 38417-0 #### [facility] ([id number]) [address] [place] [address] 91652 #### HA1C #### [facility] ([id number]) [address] [facility], [address] [place] [address] GFR/1.73 sq M.predicted among non-blacks MDRD (S/P/Bld) [Vol rate/Area] 45 mL/min/{1.73_m2} Low >59 [facility] Comment on above: Result Comment: Reported eGFR is based on the CKD-EPI 2020 equation that does not use a race coefficient. Performed By: #### C BCA, PINR, 68372-9, BMP, 78192-4 #### [facility] ([id number]) [address] [place] [address] 33861 #### HA1C #### [facility] ([id number]) [address], [address] [place] [address] Glucose [Mass/Vol] 174 mg/dL High 65-99 [facility] Comment on above: Performed By: #### C BCA, PINR, 20179-6, BMP, 29150-9 #### [facility] ([id number]) [address] [place] [address] 09012 #### HA1C #### [facility] ([id number]) [address], [address] [place] [address] Potassium [Moles/Vol] 3.7 mmol/L Normal 3.5-5.0 [facility] Comment on above: Performed By: #### C BCA, PINR, 39038-0, BMP, 98528-2 #### [facility] ([id number]) [address] [place] [address] 07416 #### HA1C #### [facility] ([id number]) [address], [address] [place] [address] Protein [Mass/Vol] 6.5 g/dL Normal 6.0-8.0 [facility] Comment on above: Performed By: #### C BCA, PINR, 59338-1, BMP, 43568-5 #### [facility] ([id number]) [address] [place] [address] 92074 #### HA1C #### [facility] ([id number]) [address], [address] [place] [address] Sodium [Moles/Vol] 139 mmol/L Normal 134-146 [facility] Comment on above: Performed By: #### C BCA, PINR, 65667-9, BMP, 27045-4 #### [facility] ([id number]) [address] [place] [address] 55568 #### HA1C #### [facility] ([id number]) [address], [address] [place] [address] Urea nitrogen [Mass/Vol] 20 mg/dL Normal 5-27 [facility] Comment on above: Performed By: #### C BCA, PINR, 60749-8, BMP, 63590-6 #### [facility] ([id number]) [address] [place] [address] 85247 #### HA1C #### [facility] ([id number]) [address] [place] [address] CT BRAIN WO CONT STROKE ALER Ton [...] Tejada MD on 10/06/2024 12:47 PM Normal [facility] Glucose Glucometer (BldC) [M ass/Vol]on 10-06-2024 Glucose [Mass/Vol] 73 mg/dL Normal 65-99 [facility] Glucose [Mass/Vol] 192 mg/dL High 65-99 [facility] LIPASEon 10-06-2024 Lipase [Catalytic activity/Vol] 29 U/L Normal 17-40 [facility] Comment on above: Performed By: #### C BCA, PINR, 15455-3, BMP, 15141-8 #### [facility] ([id number]) [address] [place] [address] 19[address] #### HA1C #### [facility] ([id number]) [address], [address] [place] [address] Natriuretic peptide B [Mass/ Vol]on 10-06-2024 Natriuretic peptide B (Bld) [Mass/Vol] 26 pg/mL Normal <100.0 [facility] Comment on above: Performed By: #### C BCA, PINR, 10510-6, BMP, 91469-4 #### [facility] ([id number]) [address] [facility], [place] [address] #### HA1C #### [facility] ([id number]) [address] [place] [address], [address] [place] [address] SARS/FLU A+B/RSV by NAAT/Mol ecularon 10-06-2024 SARS/FLU [...] operators who are performing tests using either [employer] or [employer] systems and is limited to laboratories that [...] repeat. Fact Sheet for Healthcare Providers: https://www.fda.gov/m edia/835872/download Fact Sheet for Patients: https://www.fda.gov/m edia/823356/download Normal [facility] Comment on above: Performed By: #### C BCA, PINR, 29025-0, BMP, 68922-7 #### [facility] ([id number]) [address] [place] [address] #### HA1C #### [facility] ([id number]) [address] [place] [address], [address] [address] THYROID PROFILEon 10-06-2024 Free T4 [Mass/Vol] 0.77 ng/dL Normal 0.61-1.60 [facility] Comment on above: Performed By: #### C BCA, PINR, 37281-1, BMP, 88483-3 #### [facility] ([id number]) [address] [place] [address] #### HA1C #### [facility] ([id number]) [address] [place] [address], [address] [address] TSH 4.84 uIU/mL High 0.49-4.67 [facility] Comment on above: Performed By: #### C BCA, PINR, 10814-2, BMP, 42906-5 #### [facility] ([id number]) [address] [place] [address] #### HA1C #### [facility] ([id number]) [address] [place] [address], [address] [address] Troponin I.cardiac High sens itivity method [Mass/Vol]on 10-06-2024 1 HOUR TROP I, HIGH SENSITIVITY 4 ng/L Normal <21 [facility] Comment on above: Performed By: #### C BCA, PINR, 69553-5, BMP, 45776-5 #### [facility] ([id number]) [address] [place] [address] #### HA1C #### [facility] ([id number]) [address], [address] [place] [address] TROPONIN I, HIGH SENSITIVITY 4 ng/L Normal <21 [facility] Comment on above: Performed By: #### C BCA, PINR, 13807-2, BMP, 52401-8 #### [facility] ([id number]) [address] [place] [address] #### HA1C #### [facility] ([id number]) [address], [address] [place] [address] VITAMIN B12on 10-06-2024 Cobalamin (Vitamin B12) [Mass/Vol] 180 pg/mL Normal 180-914 [facility] Comment on above: Performed By: #### C BCA, PINR, 38088-6, BMP, 06744-6 #### [facility] ([id number]) [address] [place] [address] #### HA1C #### [facility] ([id number]) [address], [address] [place] [address] aPTT Coag (PPP) [Time]on aPTT Coag (Bld) [Time] 34 s Normal 26-37 [facility] Comment on above: Result Comment: NEW REFERENCE RANGE Performed By: #### C BCA, PINR, 58845-2, BMP, 56961-0 #### [facility] ([id number]) [address] [place] [address]114 #### HA1C #### [facility] ([id number]) [address], [address] [place] [address] BASIC METABOLIC PANELon 09-13 Calcium [Mass/Vol] 8.4 mg/dL Low 8.6-10.3 [facility] Comment on above: Order Comment: FASTI NG:YES FASTING: YES Performed By: #### 1 0165 #### [facility] [address] [place], [place] [id number] Emergency Management Consultant: Casi Dinh Chloride [Moles/Vol] 109 mmol/L Normal 98-110 [facility] Comment on above: Order Comment: FASTI NG:YES FASTING: YES Performed By: #### 1 0165 #### [facility] [address] [place], [place] [address] Emergency Management Consultant: Casi Dinh CO2 [Moles/Vol] 30 mmol/L Normal 20-32 [facility] Comment on above: Order Comment: FASTI NG:YES FASTING: YES Performed By: #### 1 0165 #### [facility] [address] [place] [address] Emergency Management Consultant: Casi Dinh Creatinine [Mass/Vol] 1.56 mg/dL High 0.70-1.28 [facility] Comment on above: Order Comment: FASTI NG:YES FASTING: YES Performed By: #### 1 0165 #### [facility] [address] [place], [place] [address] Emergency Management Consultant: Casi Dinh GFR/1.73 sq M.predicted among non-blacks MDRD (S/P/Bld) [Vol rate/Area] 45 mL/min/{1.73_m2} Low > OR = 60 [facility] Comment on above: Order Comment: FASTI NG:YES FASTING: YES Performed By: #### 1 0165 #### [facility] [address] [place], [place] [phone] Emergency Management Consultant: Casi Dinh Glucose [Mass/Vol] 83 mg/dL Normal 65-99 [facility] Comment on above: Order Comment: FASTI NG:YES FASTING: YES Result Comment: Fasting reference interval Performed By: #### 1 0165 #### [facility] [address] [place], [place] [address] Emergency Management Consultant: Casi Dinh Potassium [Moles/Vol] 4.0 mmol/L Normal 3.5-5.3 [facility] Comment on above: Order Comment: FASTI NG:YES FASTING: YES Performed By: #### 1 0165 #### [facility] [address] [place] [phone] Emergency Management Consultant: Casi R Flatangela Sodium [Moles/Vol] 144 mmol/L Normal 135-146 [facility] Comment on above: Order Comment: FASTI NG:YES FASTING: YES Performed By: #### 1 0165 #### [facility] [address] [place] [address] Emergency Management Consultant: Casi Laura Flati Urea nitrogen [Mass/Vol] 19 mg/dL Normal 7-25 [facility] Comment on above: Order Comment: FASTI NG:YES FASTING: YES Performed By: #### 1 0165 #### [facility] [address] [place] [address] Emergency Management Consultant: Casi Laura Fabrizio Urea nitrogen/Creatinine [Mass ratio] 12 mg/mg Normal 6-22 [facility] Comment on above: Order Comment: FASTI NG:YES FASTING: YES Performed By: #### 1 0165 #### [facility] [address] [place] [phone] Emergency Management Consultant: Casi Laura Dinh CBC AND AUTO DIFFon 09-14-19 25 ABSOLUTE BASOPHIL 0.0 X10E9/L Normal 0.0-0.2 [facility] Comment on above: Performed By: #### C ALLY, PINR, 47879-7, BMP, 00881-9 #### [facility] ([id number]) [address] [place] [address], [place] [address] #### HA1C #### [facility] ([id number]) [address] [facility], [address] [place] [address] ABSOLUTE NEUTROPHIL 4.5 X10E9/L Normal 1.5-6.6 [facility] Comment on above: Performed By: #### C BCA, PINR, 68331-3, BMP, 63585-4 #### [facility] ([id number]) [address] [place] [address] #### HA1C #### [facility] ([id number]) [address], [address] [place] [address] Basophils/100 WBC (Bld) 0.6 % Normal [facility] Comment on above: Performed By: #### C BCA, PINR, 71530-4, BMP, 33021-7 #### [facility] ([id number]) [address] [place] [address] #### HA1C #### [facility] ([id number]) [address], [address] [place] [address] Eosinophils (Bld) [#/Vol] 0.2 10*3/uL Normal 0.0-0.4 [facility] Comment on above: Performed By: #### C BCA, PINR, 60626-4, BMP, 58689-3 #### [facility] ([id number]) [address] [place] [address] #### HA1C #### [facility] ([id number]) [address], [address] [place] [address] Eosinophils/100 WBC (Bld) 2.6 % Normal [facility] Comment on above: Performed By: #### C BCA, PINR, 26995-7, BMP, 23182-8 #### [facility] ([id number]) [address] [place] [address] #### HA1C #### [facility] ([id number]) [address], [address] [place] [address] Erythrocyte distribution width (RBC) [Ratio] 14.5 % Normal 11.5-15.0 [facility] Comment on above: Performed By: #### C BCA, PINR, 17098-1, BMP, 05183-2 #### [facility] ([id number]) [address] [place] [address] #### HA1C #### [facility] ([id number]) [address], [address] [place] [address] Hematocrit (Bld) [Volume fraction] 43.2 % Normal 39-49 [facility] Comment on above: Performed By: #### C BCA, PINR, 07780-3, BMP, 74225-8 #### [facility] ([id number]) [address] [place] [address] #### HA1C #### [facility] ([id number]) [address], [address] [place] [address] Hemoglobin (Bld) [Mass/Vol] 14.2 g/dL Normal 13.0-17.0 [facility] Comment on above: Performed By: #### C BCA, PINR, 89144-9, BMP, 05058-1 #### [facility] ([id number]) [address] [place] [address] #### HA1C #### [facility] ([id number]) [address], [address] [place] [address] Lymphocytes (Bld) [#/Vol] 2.1 10*3/uL Normal 1.0-3.5 [facility] Comment on above: Performed By: #### C BCA, PINR, 75856-1, BMP, 78925-6 #### [facility] ([id number]) [address] [place] [address] #### HA1C #### [facility] ([id number]) [address], [address] [place] [address] Lymphocytes/100 WBC (Bld) 28.3 % Normal [facility] Comment on above: Performed By: #### C BCA, PINR, 35012-0, BMP, 80200-2 #### [facility] ([id number]) [address] [place] [address]218 #### HA1C #### [facility] ([id number]) [address], [address] [place] [address] MCH (RBC) [Entitic mass] 29.1 pg Normal 27-34 [facility] Comment on above: Performed By: #### C BCA, PINR, 59667-0, BMP, 75519-5 #### [facility] ([id number]) [address] [place] [address] #### HA1C #### [facility] ([id number]) [address], [address] [place] [address] MCHC (RBC) [Mass/Vol] 32.8 g/dL Normal 32-36 [facility] Comment on above: Performed By: #### C BCA, PINR, 98846-8, BMP, 20775-0 #### [facility] ([id number]) [address] [place] [address]89 #### HA1C #### [facility] ([id number]) [address], [address] [place] [address] MCV (RBC) [Entitic vol] 89 fL Normal 80-100 [facility] Comment on above: Performed By: #### C BCA, PINR, 39970-8, BMP, 55653-2 #### [facility] ([id number]) [address] [place] [address] #### HA1C #### [facility] ([id number]) [address], [address] [place] [address] Monocytes (Bld) [#/Vol] 0.5 10*3/uL Normal 0-0.9 [facility] Comment on above: Performed By: #### C BCA, PINR, 11365-7, BMP, 06065-2 #### [facility] ([id number]) [address] [place] [address]09 #### HA1C #### [facility] ([id number]) [address], [address] [place] [address] Monocytes/100 WBC (Bld) 6.7 % Normal [facility] Comment on above: Performed By: #### C ALLY, PINR, 53374-6, BMP, 91972-3 #### [facility] ([id number]) [address] [place] [address] #### HA1C #### [facility] ([id number]) [address], [address] [place] [address] Neutrophils/100 WBC (Bld) 61.8 % Normal [facility] Comment on above: Performed By: #### C ALLY, PINR, 26588-6, BMP, 96134-6 #### [facility] ([id number]) [address] [place] [address] 05967 #### HA1C #### [facility] ([id number]) [address], [address] [place] [address] Platelet mean volume (Bld) [Entitic vol] 8.2 fL Normal 7-12 [facility] Comment on above: Performed By: #### C BCA, PINR, 56802-8, BMP, 60780-2 #### [facility] ([id number]) [address] [place] [address] 86644 #### HA1C #### [facility] ([id number]) [address], [address] [place] [address] Platelets (Bld) [#/Vol] 150 10*3/uL Normal 150-450 [facility] Comment on above: Performed By: #### C BCA, PINR, 74392-9, BMP, 28445-7 #### [facility] ([id number]) [address] [place] [address] 08964 #### HA1C #### [facility] ([id number]) [address] [place] [address], [address] [place] [address] RBC COUNT 4.88 X10E12/L Normal 4.10-5.70 [facility] Comment on above: Performed By: #### C BCA, PINR, 50649-5, BMP, 50766-1 #### [facility] ([id number]) [address] [place] [address] 97310 #### HA1C #### [facility] ([id number]) [address] [place] [address], [address] [place] [address] WBC (Bld) [#/Vol] 7.3 10*3/uL Normal 4.0-11.0 [facility] Comment on above: Performed By: #### C BCA, PINR, 73417-8, BMP, 19925-4 #### [facility] ([id number]) [address] [place] [address]6212 #### HA1C #### [facility] ([id number]) [address] [place] [address], [address] [place] [address] COMPREHENSIVE METABOLIC PANE Reji 09-14-2024 Albumin [Mass/Vol] 3.8 g/dL Normal 3.2-5.3 [facility] Comment on above: Performed By: #### C BCA, PINR, 94567-5, BMP, 80584-8 #### [facility] ([id number]) [address] [place] [address] 12651 #### HA1C #### [facility] ([id number]) [address] [facility], [address] [place] [address] ALP [Catalytic activity/Vol] 77 U/L Normal 39-130 [facility] Comment on above: Performed By: #### C BCA, PINR, 77968-2, BMP, 44005-4 #### [facility] ([id number]) [address] [place] [address] 46210 #### HA1C #### [facility] ([id number]) [address] [facility], [address] [place] [address] ALT [Catalytic activity/Vol] 37 U/L Normal 0-40 [facility] Comment on above: Performed By: #### C BCA, PINR, 89727-9, BMP, 01406-7 #### [facility] ([id number]) [address] [place] [address] 97377 #### HA1C #### [facility] ([id number]) [address] [place] [address], [address] [place] [address] Anion gap [Moles/Vol] 6 mmol/L Normal 5-15 [facility] Comment on above: Performed By: #### C BCA, PINR, 83361-4, BMP, 70977-2 #### [facility] ([id number]) [address] [place] [address] 56787 #### HA1C #### [facility] ([id number]) [address] [place] [address], [address] [place] [address] AST [Catalytic activity/Vol] 30 U/L Normal 0-41 [facility] Comment on above: Performed By: #### C BCA, PINR, 10359-6, BMP, 57197-7 #### [facility] ([id number]) [address] [place] [address] 34386 #### HA1C #### [facility] ([id number]) [address], [address] [place] [address] Bilirubin [Mass/Vol] 1.0 mg/dL Normal 0.3-1.2 [facility] Comment on above: Performed By: #### C BCA, PINR, 52525-1, BMP, 28223-8 #### [facility] ([id number]) [address] [place] [address] 31790 #### HA1C #### [facility] ([id number]) [address], [address] [place] [address] Calcium [Mass/Vol] 8.6 mg/dL Normal 8.5-10.5 [facility] Comment on above: Performed By: #### C BCA, PINR, 97052-5, BMP, 59996-6 #### [facility] ([id number]) [address] [place] [address] 71432 #### HA1C #### [facility] ([id number]) [address], [address] [place] [address] Chloride [Moles/Vol] 108 mmol/L Normal 98-109 [facility] Comment on above: Performed By: #### C BCA, PINR, 40563-1, BMP, 13996-1 #### [facility] ([id number]) [address] [place] [address] 17633 #### HA1C #### [facility] ([id number]) [address], [address] [place] [address] CO2 [Moles/Vol] 22 mmol/L Normal 22-32 [facility] Comment on above: Performed By: #### C BCA, PINR, 28069-1, BMP, 48019-8 #### [facility] ([id number]) [address] [place] [address] 65697 #### HA1C #### [facility] ([id number]) [address], [address] [place] [address] Creatinine [Mass/Vol] 1.82 mg/dL High 0.70-1.20 [facility] Comment on above: Result Comment: METH OD TRACEABLE TO IDMS STANDARD Performed By: #### C BCA, PINR, 07502-7, BMP, 61833-5 #### [facility] ([id number]) [address] [place] [address] 86789 #### HA1C #### [facility] ([id number]) [address], [address] [place] [address] GFR/1.73 sq M.predicted among non-blacks MDRD (S/P/Bld) [Vol rate/Area] 38 mL/min/{1.73_m2} Low >59 [facility] Comment on above: Result Comment: Reported eGFR is based on the CKD-EPI 2020 equation that does not use a race coefficient. Performed By: #### C BCA, PINR, 44275-1, BMP, 02178-4 #### [facility] ([id number]) [address] [place] [address] 96192 #### HA1C #### [facility] ([id number]) [address], [address] [place] [address] Glucose [Mass/Vol] 99 mg/dL Normal 65-99 [facility] Comment on above: Performed By: #### C BCA, PINR, 48482-8, BMP, 30371-2 #### [facility] ([id number]) [address] [place] [address] 59591 #### HA1C #### [facility] ([id number]) [address], [address] [place] [address] Potassium [Moles/Vol] 4.3 mmol/L Normal 3.5-5.0 [facility] Comment on above: Performed By: #### C BCA, PINR, 96693-7, BMP, 25340-2 #### [facility] ([id number]) [address] [place] [address] 69401 #### HA1C #### [facility] ([id number]) [address], [address] [place] [address] Protein [Mass/Vol] 6.8 g/dL Normal 6.0-8.0 [facility] Comment on above: Performed By: #### C BCA, PINR, 90084-6, BMP, 04004-4 #### [facility] ([id number]) [address] [place] [address] 51063 #### HA1C #### [facility] ([id number]) [address], [address] [place] [address] Sodium [Moles/Vol] 136 mmol/L Normal 134-146 [facility] Comment on above: Performed By: #### C BCA, PINR, 29331-6, BMP, 48285-2 #### [facility] ([id number]) [address] [place] [address] 37749 #### HA1C #### [facility] ([id number]) [address], [address] [place] [address] Urea nitrogen [Mass/Vol] 29 mg/dL High 5-27 [facility] Comment on above: Performed By: #### C BCA, PINR, 73905-1, BMP, 64979-7 #### [facility] ([id number]) [address] [place] [address] 47596 #### HA1C #### [facility] ([id number]) [address] [place] [address] Glucose Glucometer (BldC) [M ass/Vol]on 09-14-2024 Glucose [Mass/Vol] 101 mg/dL High 65-99 [facility] MAGNESIUMon 09-14-2024 Magnesium [Mass/Vol] 2.0 mg/dL Normal 1.8-2.6 [facility] Comment on above: Performed By: #### C BCA, PINR, 96855-3, BMP, 57609-4 #### [facility] ([id number]) [address] [facility], [place] [address] #### HA1C #### [facility] ([id number]) [address] [place] [address], [address] [place] [address] SARS/FLU A+B/RSV by NAAT/Mol ecularon 09-14-2024 SARS/FLU [...] operators who are performing tests using either [employer] or [employer] systems and is limited to laboratories that [...] repeat. Fact Sheet for Healthcare Providers: https://www.fda.gov/m edia/120164/download Fact Sheet for Patients: https://www.fda.gov/m edia/661132/download Normal [facility] Comment on above: Performed By: #### C BCA, PINR, 14196-2, BMP, 10681-2 #### [facility] ([id number]) [address] [place] [address] 46605 #### HA1C #### [facility] ([id number]) [address] [facility] [place] [address] Troponin I.cardiac High sens itivity method [Mass/Vol]on 09-14-2024 1 HOUR TROP I, HIGH SENSITIVITY 4 ng/L Normal <21 [facility] Comment on above: Performed By: #### C BCA, PINR, 58597-6, BMP, 48157-9 #### [facility] ([id number]) [address] [place] [address] 53681 #### HA1C #### [facility] ([id number]) [address] [facility] [facility], [address] [place] [address] TROPONIN I, HIGH SENSITIVITY 5 ng/L Normal <21 [facility] Comment on above: Performed By: #### C BCA, PINR, 46747-3, BMP, 33651-3 #### [facility] ([id number]) [address] [place] [address] 19004 #### HA1C #### [facility] ([id number]) [address] [facility], [address] [place] [address] MR LUMBAR SPINE WO CONTRASTo n 08-23-2024 [...] 24 ABSOLUTE BASOPHIL 0.0 X10E9/L Normal 0.0-0.2 [facility] Comment on above: Performed By: #### C SHRUTHI CANALES, 04360-6, BMP, 09681-0 #### [facility] ([id number]) [address] [place] [address] 79281 #### HA1C #### [facility] ([id number]) [address] [place] [address], [address] [place] [address] ABSOLUTE NEUTROPHIL 5.7 X10E9/L Normal 1.5-6.6 [facility] Comment on above: Performed By: #### C ANUP CANALESR, 86639-8, BMP, 67122-6 #### [facility] ([id number]) [address] [place] [address] 33159 #### HA1C #### [facility] ([id number]) [address] [place] [address], [address] [place] [address] Basophils/100 WBC (Bld) 0.4 % Normal [facility] Comment on above: Performed By: #### C ANUP CANALESR, 40565-2, BMP, 01487-6 #### [facility] ([id number]) [address] [place] [address]40[address] #### HA1C #### [facility] ([id number]) [address] [place] [address], [address] [place] [address] Eosinophils (Bld) [#/Vol] 0.2 10*3/uL Normal 0.0-0.4 [facility] Comment on above: Performed By: #### C ALLY PINR, 13060-3, BMP, 25647-0 #### [facility] ([id number]) [address] [place] [address] 79337 #### HA1C #### [facility] ([id number]) [address] [facility] [facility] [place] [address] Eosinophils/100 WBC (Bld) 2.1 % Normal [facility] Comment on above: Performed By: #### C BCA, PINR, 56251-3, BMP, 59718-9 #### [facility] ([id number]) [address] [place] [address] 66348 #### HA1C #### [facility] ([id number]) [address] [facility] [facility] [place] [address] Erythrocyte distribution width (RBC) [Ratio] 14.6 % Normal 11.5-15.0 [facility] Comment on above: Performed By: #### C BCA, PINR, 64360-2, BMP, 51609-1 #### [facility] ([id number]) [address] [place] [address] 69762 #### HA1C #### [facility] ([id number]) [address] [facility] [facility] [place] [address] Hematocrit (Bld) [Volume fraction] 40.5 % Normal 39-49 [facility] Comment on above: Performed By: #### C BCA, PINR, 33365-3, BMP, 15646-7 #### [facility] ([id number]) [address] [place] [address] 67261 #### HA1C #### [facility] ([id number]) [address] [facility] [facility] [place] [address] Hemoglobin (Bld) [Mass/Vol] 13.5 g/dL Normal 13.0-17.0 [facility] Comment on above: Performed By: #### C BCA, PINR, 67190-9, BMP, 22072-9 #### [facility] ([id number]) [address] [place] [address] 46157 #### HA1C #### [facility] ([id number]) [address] [facility], [address] [place] [address] Lymphocytes (Bld) [#/Vol] 1.9 10*3/uL Normal 1.0-3.5 [facility] Comment on above: Performed By: #### C BCA, PINR, 11833-1, BMP, 40082-9 #### [facility] ([id number]) [address] [place] [address] #### HA1C #### [facility] ([id number]) [address] [place] [address], [address] [place] [address] Lymphocytes/100 WBC (Bld) 22.0 % Normal [facility] Comment on above: Performed By: #### C BCA, PINR, 63221-1, BMP, 76306-6 #### [facility] ([id number]) [address] [place] [address] #### HA1C #### [facility] ([id number]) [address] [place] [address], [address] [place] [address] MCH (RBC) [Entitic mass] 29.8 pg Normal 27-34 [facility] Comment on above: Performed By: #### C BCA, PINR, 25171-8, BMP, 89404-8 #### [facility] ([id number]) [address] [place] [address] #### HA1C #### [facility] ([id number]) [address] [place] [address] MCHC (RBC) [Mass/Vol] 33.5 g/dL Normal 32-36 [facility] Comment on above: Performed By: #### C BCA, PINR, 72060-1, BMP, 39649-7 #### [facility] ([id number]) [address] [place] [address] #### HA1C #### [facility] ([id number]) [address], [address] [place] [address] MCV (RBC) [Entitic vol] 89 fL Normal 80-100 [facility] Comment on above: Performed By: #### C BCA, PINR, 06706-5, BMP, 12795-9 #### [facility] ([id number]) [address] [place] [address] #### HA1C #### [facility] ([id number]) [address] [place] [address], [address] [place] [address] Monocytes (Bld) [#/Vol] 0.8 10*3/uL Normal 0-0.9 [facility] Comment on above: Performed By: #### C BCA, PINR, 00040-6, BMP, 90220-0 #### [facility] ([id number]) [address] [place] [address] 39901 #### HA1C #### [facility] ([id number]) [address] [place] [address], [address] [place] [address] Monocytes/100 WBC (Bld) 9.4 % Normal [facility] Comment on above: Performed By: #### C BCA, PINR, 77561-5, BMP, 03370-9 #### [facility] ([id number]) [address] [place] [address] 22252 #### HA1C #### [facility] ([id number]) [address] [place] [address], [address] [place] [address] Neutrophils/100 WBC (Bld) 66.1 % Normal [facility] Comment on above: Performed By: #### C BCA, PINR, 29232-1, BMP, 88201-3 #### [facility] ([id number]) [address] [place] [address] 83610 #### HA1C #### [facility] ([id number]) [address] [facility], [address] [place] [address] Platelet mean volume (Bld) [Entitic vol] 8.0 fL Normal 7-12 [facility] Comment on above: Performed By: #### C ALLY, PINR, 20152-8, BMP, 21701-1 #### [facility] ([id number]) [address] [place] [address] 66965 #### HA1C #### [facility] ([id number]) [address] [place] [address], [address] [address] Platelets (Bld) [#/Vol] 158 10*3/uL Normal 150-450 [facility] Comment on above: Performed By: #### Matthew CANALES, PINR, 98220-4, BMP, 46430-4 #### [facility] ([id number]) [address] [place] [address] 11282 #### HA1C #### [facility] ([id number]) [facility], [address] [place] [address] RBC COUNT 4.55 X10E12/L Normal 4.10-5.70 [facility] Comment on above: Performed By: #### C ALLY, PINR, 04346-3, BMP, 40868-6 #### [facility] ([id number]) [address] [place] [address] 58694 #### HA1C #### [facility] ([id number]) [facility], [address] [place] [address] WBC (Bld) [#/Vol] 8.7 10*3/uL Normal 4.0-11.0 [facility] Comment on above: Performed By: #### C BCA, PINR, 16323-7, BMP, 03008-0 #### [facility] ([id number]) [address] [place] [address] 65597 #### HA1C #### [facility] ([id number]) [address], [address] [place] [address] CBC AND AUTO DIFFon 08-11-20 24 ABSOLUTE BASOPHIL 0.0 X10E9/L Normal 0.0-0.2 [facility] Comment on above: Performed By: #### C BCA, PINR, 15263-4, BMP, 97455-4 #### [facility] ([id number]) [address] [place] [address] 54988 #### HA1C #### [facility] ([id number]) [address] [facility], [address] [place] [address] ABSOLUTE NEUTROPHIL 7.5 X10E9/L High 1.5-6.6 [facility] Comment on above: Performed By: #### C BCA, PINR, 63363-2, BMP, 01461-4 #### [facility] ([id number]) [address] [place] [address] 93595 #### HA1C #### [facility] ([id number]) [address], [address] [place] [address] Basophils/100 WBC (Bld) 0.3 % Normal [facility] Comment on above: Performed By: #### C BCA, PINR, 34745-0, BMP, 90661-8 #### [facility] ([id number]) [address] [place] [address] 36779 #### HA1C #### [facility] ([id number]) [address] [facility], [address] [place] [address] Eosinophils (Bld) [#/Vol] 0.2 10*3/uL Normal 0.0-0.4 [facility] Comment on above: Performed By: #### C BCA, PINR, 66514-3, BMP, 01762-8 #### [facility] ([id number]) [address] [place] [address] 27849 #### HA1C #### [facility] ([id number]) [address], [address] [place] [address] Eosinophils/100 WBC (Bld) 1.5 % Normal [facility] Comment on above: Performed By: #### C BCA, PINR, 79009-0, BMP, 73495-8 #### [facility] ([id number]) [address] [place] [address] 30697 #### HA1C #### [facility] ([id number]) [address], [address] [place] [address] Erythrocyte distribution width (RBC) [Ratio] 14.7 % Normal 11.5-15.0 [facility] Comment on above: Performed By: #### C BCA, PINR, 74684-3, BMP, 34199-0 #### [facility] ([id number]) [address] [place] [address] 95239 #### HA1C #### [facility] ([id number]) [address], [address] [place] [address] Hematocrit (Bld) [Volume fraction] 41.8 % Normal 39-49 [facility] Comment on above: Performed By: #### C BCA, PINR, 24066-6, BMP, 10356-8 #### [facility] ([id number]) [address] [place] [address] 81408 #### HA1C #### [facility] ([id number]) [address], [address] [place] [address] Hemoglobin (Bld) [Mass/Vol] 13.9 g/dL Normal 13.0-17.0 [facility] Comment on above: Performed By: #### C BCA, PINR, 39907-7, BMP, 80412-4 #### [facility] ([id number]) [address] [place] [address] 38985 #### HA1C #### [facility] ([id number]) [address], [address] [place] [address] Lymphocytes (Bld) [#/Vol] 1.5 10*3/uL Normal 1.0-3.5 [facility] Comment on above: Performed By: #### C BCA, PINR, 47548-3, BMP, 60569-7 #### [facility] ([id number]) [address] [place] [address] 88608 #### HA1C #### [facility] ([id number]) [address], [address] [place] [address] Lymphocytes/100 WBC (Bld) 14.7 % Normal [facility] Comment on above: Performed By: #### C BCA, PINR, 87892-3, BMP, 77989-1 #### [facility] ([id number]) [address] [place] [address] 22319 #### HA1C #### [facility] ([id number]) [address], [address] [place] [address] MCH (RBC) [Entitic mass] 29.5 pg Normal 27-34 [facility] Comment on above: Performed By: #### C BCA, PINR, 60755-9, BMP, 67854-9 #### [facility] ([id number]) [address] [place] [address] 15399 #### HA1C #### [facility] ([id number]) [address], [address] [place] [address] MCHC (RBC) [Mass/Vol] 33.2 g/dL Normal 32-36 [facility] Comment on above: Performed By: #### C BCA, PINR, 79502-2, BMP, 60845-0 #### [facility] ([id number]) [address] [place] [address] 24892 #### HA1C #### [facility] ([id number]) [address], [address] [place] [address] MCV (RBC) [Entitic vol] 89 fL Normal 80-100 [facility] Comment on above: Performed By: #### C BCA, PINR, 53854-3, BMP, 16700-6 #### [facility] ([id number]) [address] [place] [address] 10278 #### HA1C #### [facility] ([id number]) [address], [address] [place] [address] Monocytes (Bld) [#/Vol] 0.9 10*3/uL Normal 0-0.9 [facility] Comment on above: Performed By: #### C BCA, PINR, 30236-7, BMP, 22506-3 #### [facility] ([id number]) [address] [place] [address] 58872 #### HA1C #### [facility] ([id number]) [address], [address] [place] [address] Monocytes/100 WBC (Bld) 9.2 % Normal [facility] Comment on above: Performed By: #### C BCA, PINR, 46713-1, BMP, 42558-4 #### [facility] ([id number]) [address] [place] [address] 95487 #### HA1C #### [facility] ([id number]) [address], [address] [place] [address] Neutrophils/100 WBC (Bld) 74.3 % Normal [facility] Comment on above: Performed By: #### C ALLY, PINR, 70877-3, BMP, 83860-2 #### [facility] ([id number]) [address] [place] [address] 45125 #### HA1C #### [facility] ([id number]) [address], [address] [place] [address] Platelet mean volume (Bld) [Entitic vol] 7.8 fL Normal 7-12 [facility] Comment on above: Performed By: #### C ALLY, PINR, 41687-6, BMP, 65825-6 #### [facility] ([id number]) [address] [place] [address] 78082 #### HA1C #### [facility] ([id number]) [address], [address] [place] [address] Platelets (Bld) [#/Vol] 154 10*3/uL Normal 150-450 [facility] Comment on above: Performed By: #### C ALLY, PINR, 49922-4, BMP, 89897-3 #### [facility] ([id number]) [address] [place] [address] 05081 #### HA1C #### [facility] ([id number]) [address], [address] [place] [address] RBC COUNT 4.70 X10E12/L Normal 4.10-5.70 [facility] Comment on above: Performed By: #### C ALLY, PINR, 36518-4, BMP, 89327-3 #### [facility] ([id number]) [address] [place] [address] 63902 #### HA1C #### [facility] ([id number]) [address], [address] [place] [address] WBC (Bld) [#/Vol] 10.1 10*3/uL Normal 4.0-11.0 [facility] Comment on above: Performed By: #### C BCA, PINR, 16720-7, BMP, 06888-2 #### [facility] ([id number]) [address] [place] [address] 62459 #### HA1C #### [facility] ([id number]) [address], [address] [place] [address] Folate [Mass/Vol]on 08-11-20 FOLIC ACID 9.5 ng/mL Normal >5.8 [facility] Comment on above: Result Comment: NEW REFERENCE RANGE Performed By: #### C BCA, PINR, 90751-0, BMP, 76310-2 #### [facility] ([id number]) [address] [place] [address] 05245 #### HA1C #### [facility] ([id number]) [address] [address] Heavy metals panel (Bld)on 10-11-2023 Arsenic, B <1 Normal <13 [facility] Comment on above: Result Comment: NOTE ADDITIONAL INFORMATION This test was developed and its performance characteristics determined by [facility] in a manner consistent with CLIA requirements. This test has not been cleared or approved by the U.S. Food and Drug Administration. Performed By: #### C BCA, PINR, 82786-8, BMP, 74556-3 #### [facility] ([id number]) [address] [place] [address] 13134 #### HA1C #### [facility] ([id number]) [address] [address] [place] [address] Cadmium, B 0.6 ng/mL Normal <5.0 [facility] Comment on above: Result Comment: NOTE ADDITIONAL INFORMATION This test was developed and its performance characteristics determined by [facility] in a manner consistent with CLIA requirements. This test has not been cleared or approved by the U.S. Food and Drug Administration. Performed By: #### C ALLY, PINR, 42456-4, [facility], 31194-1 #### [facility] ([id number]) [address] [place] [address] 84093 #### HA1C #### [facility] ([id number]) [address], [address] [place] [address] Lead, B 4.5 mcg/dL High <3.5 [facility] Comment on above: Result Comment: NOTE ADDITIONAL INFORMATION Testing performed by Triple Quadrupole Inductively Coupled Plasma-Mass Spectrometry (ICP-MS/MS). This test was developed and its performance characteristics determined by [facility] in a manner consistent with CLIA requirements. This test has not been cleared or approved by the U.S. Food and Drug Administration. Performed By: #### C ALLY, PINR, 08340-6, [facility], 35173-2 #### [facility] ([id number]) [address] [place] [address] 87662 #### HA1C #### [facility] ([id number]) [address], [address] [place] [address] Mercury, B <1 Normal <10 [facility] Comment on above: Result Comment: NOTE ADDITIONAL INFORMATION This test was developed and its performance characteristics determined by [facility] in a manner consistent with CLIA requirements. This test has not been cleared or approved by the U.S. Food and Drug Administration. Performed By: #### C ALLY, PINR, 64873-4, BMP, 80467-6 #### [facility] ([id number]) [address] [place] [address] 73208 #### HA1C #### [facility] ([id number]) [address] [facility], [address] [place] [address] Venous/Capillary Venous Normal [facility] Comment on above: Performed By: #### C ALLY, PINR, 30391-8, BMP, 07269-2 #### [facility] ([id number]) [address] [place] [address] 09006 #### HA1C #### [facility] ([id number]) [address] [facility], [address] [place] [address] Lipid 1996 panelon 4 Cholesterol [Mass/Vol] 112 mg/dL Low 150-200 [facility] Comment on above: Performed By: #### C ALLY, PINR, 58755-8, BMP, 60665-4 #### [facility] ([id number]) [address] [place] [address] 12741 #### HA1C #### [facility] ([id number]) [address] [place] [address], [address] [place] [address] Cholesterol in HDL [Mass/Vol] 46 mg/dL Normal >39 [facility] Comment on above: Result Comment: HDL <40 mg/dL - High Risk HDL > or = 40mg/dL- Desirable HDL >60 mg/dL - Negative Risk Performed By: #### C BCA, PINR, 51843-9, BMP, 51810-7 #### [facility] ([id number]) [address] [place] [address] 44761 #### HA1C #### [facility] ([id number]) [address], [address] [place] [address] Cholesterol in LDL [Mass/Vol] 51 mg/dL Normal <130 [facility] Comment on above: Result Comment: LDL <100 mg/dL - Desirable LDL >160 mg/dL - High Risk Performed By: #### C ALLY, PINR, 68083-8, BMP, 01001-2 #### [facility] ([id number]) [address] [place] [address] 48104 #### HA1C #### [facility] ([id number]) [address], [address] [place] [address] Cholesterol in VLDL [Mass/Vol] 15 mg/dL Normal 0-30 [facility] Comment on above: Performed By: #### C ALLY, PINR, 96633-7, BMP, 96886-4 #### [facility] ([id number]) [address] [place] [address] 09862 #### HA1C #### [facility] ([id number]) [address], [address] [place] [address] CHOLESTEROL:HDL 2.4 Normal 1.0-5.0 [facility] Comment on above: Performed By: #### C BCA, PINR, 88697-4, BMP, 41697-0 #### [facility] ([id number]) [address] [place] [address] 43426 #### HA1C #### [facility] ([id number]) [address] [facility], [address] [place] [address] Triglyceride [Mass/Vol] 74 mg/dL Normal 27-150 [facility] Comment on above: Performed By: #### C ALLY PINR, 99583-1, BMP, 86335-2 #### [facility] ([id number]) [address] [place] [address], [place] [address] #### HA1C #### [facility] ([id number]) [address] [facility], [address] [place] [address] MR BRAIN WO CONTon MR BRAIN WO CONT MR BRAIN WO [...] Hurst MD on 08/11/2024 10:04 AM Normal [facility] SERUM PROTEIN ELECTROPHORESI Son 08-11-2024 Albumin [Mass/Vol] 3.7 g/dL Normal 3.4-5.3 [facility] Comment on above: Performed By: #### C BCA, PINR, 08482-2, BMP, 72938-5 #### [facility] ([id number]) [address] [place] [address] 71316 #### HA1C #### [facility] ([id number]) [address], [address] [place] [address] ALPHA 1 GLOBULIN 0.3 g/dL Normal 0.1-0.4 [facility] Comment on above: Performed By: #### C BCA, PINR, 28680-8, BMP, 31939-6 #### [facility] ([id number]) [address] [place] [address] 36140 #### HA1C #### [facility] ([id number]) [address], [address] [place] [address] ALPHA 2 GLOBULIN 0.8 g/dL Normal 0.4-1.1 [facility] Comment on above: Performed By: #### C BCA, PINR, 73041-6, BMP, 09694-4 #### [facility] ([id number]) [address] [place] [address] 37898 #### HA1C #### [facility] ([id number]) [address], [address] [place] [address] BETA GLOBULIN 0.9 g/dL Normal 0.5-1.2 [facility] Comment on above: Performed By: #### C BCA, PINR, 64519-1, BMP, 70640-3 #### [facility] ([id number]) [address] [place] [address] 57480 #### HA1C #### [facility] ([id number]) [address], [address] [place] [address] GAMMA GLOBULIN 0.8 g/dL Normal 0.5-1.6 [facility] Comment on above: Performed By: #### C BCA, PINR, 38386-0, BMP, 98242-3 #### [facility] ([id number]) [address] [place] [address] 93834 #### HA1C #### [facility] ([id number]) [address] [place] [address] PROT. ELECTROPHORESIS INTERP Unremarkable protein distribution, no monoclonal bands. Normal [facility] Comment on above: Performed By: #### C BCA, PINR, 82308-8, BMP, 24538-7 #### [facility] ([id number]) [address] [place] [address] 30572 #### HA1C #### [facility] ([id number]) [address], [address] [place] [address] Protein [Mass/Vol] 6.5 g/dL Normal 6.0-8.0 [facility] Comment on above: Performed By: #### C BCA, PINR, 22922-0, BMP, 06948-2 #### [facility] ([id number]) [address] [place] [address] 20155 #### HA1C #### [facility] ([id number]) [address], [address] [place] [address] Troponin I.cardiac High sens itivity method [Mass/Vol]on 08-11-2024 1 HOUR TROP I, HIGH SENSITIVITY 5 ng/L Normal <21 [facility] Comment on above: Performed By: #### C BCA, PINR, 72444-4, BMP, 39140-3 #### [facility] ([id number]) [address] [place] [address] 28083 #### HA1C #### [facility] ([id number]) [address], [address] [place] [address] TROPONIN I, HIGH SENSITIVITY 5 ng/L Normal <21 [facility] Comment on above: Performed By: #### C BCA, PINR, 11425-7, BMP, 58832-7 #### [facility] ([id number]) [address] [place] [address] 37579 #### HA1C #### [facility] ([id number]) [address], [address] [place] [address] VITAMIN B12on 08-11-2024 Cobalamin (Vitamin B12) [Mass/Vol] 202 pg/mL Normal 180-914 [facility] Comment on above: Performed By: #### C BCA, PINR, 86403-7, BMP, 18931-4 #### [facility] ([id number]) [address] [place] [address] 60853 #### HA1C #### [facility] ([id number]) [address], [address] [place] [address] BASIC METABOLIC PANLon 08-10 Anion gap [Moles/Vol] 9 mmol/L Normal 5-15 [facility] Comment on above: Performed By: #### C BCA, PINR, 91221-5, BMP, 48328-9 #### [facility] ([id number]) [address] [place] [address] 65606 #### HA1C #### [facility] ([id number]) [address], [address] [place] [address] Calcium [Mass/Vol] 8.4 mg/dL Low 8.5-10.5 [facility] Comment on above: Performed By: #### C BCA, PINR, 93017-6, BMP, 08525-1 #### [facility] ([id number]) [address] [place] [address] 19510 #### HA1C #### [facility] ([id number]) [address], [address] [place] [address] Chloride [Moles/Vol] 104 mmol/L Normal 98-109 [facility] Comment on above: Performed By: #### C BCA, PINR, 33039-3, BMP, 79508-9 #### [facility] ([id number]) [address] [place] [address] 02246 #### HA1C #### [facility] ([id number]) [address] [facility] [place] [address] CO2 [Moles/Vol] 24 mmol/L Normal 22-32 [facility] Comment on above: Performed By: #### C BCA, PINR, 15467-1, BMP, 50902-4 #### [facility] ([id number]) [address] [place] [address] 58223 #### HA1C #### [facility] ([id number]) [address] [facility] [place] [address] Creatinine [Mass/Vol] 1.40 mg/dL High 0.70-1.20 [facility] Comment on above: Result Comment: METH OD TRACEABLE TO IDMS STANDARD Performed By: #### C BCA, PINR, 97041-6, BMP, 78990-5 #### [facility] ([id number]) [address] [place] [address] 88337 #### HA1C #### [facility] ([id number]) [address] [facility] [place] [address] GFR/1.73 sq M.predicted among non-blacks MDRD (S/P/Bld) [Vol rate/Area] 52 mL/min/{1.73_m2} Low >59 [facility] Comment on above: Result Comment: Reported eGFR is based on the CKD-EPI 2020 equation that does not use a race coefficient. Performed By: #### C BCA, PINR, 09832-8, BMP, 49196-4 #### [facility] ([id number]) [address] [place] [address] 45030 #### HA1C #### [facility] ([id number]) [address], [address] [place] [address] Glucose [Mass/Vol] 103 mg/dL High 65-99 [facility] Comment on above: Performed By: #### C BCA, PINR, 31011-8, BMP, 46904-6 #### [facility] ([id number]) [address] [place] [address], [place] [address] #### HA1C #### [facility] ([id number]) [address] [facility] [place] [address] Potassium [Moles/Vol] 4.3 mmol/L Normal 3.5-5.0 [facility] Comment on above: Performed By: #### C BCA, PINR, 60355-8, BMP, 88630-8 #### [facility] ([id number]) [address] [place] [address] #### HA1C #### [facility] ([id number]) [address], [address] [place] [address] Sodium [Moles/Vol] 137 mmol/L Normal 134-146 [facility] Comment on above: Performed By: #### C BCA, PINR, 13951-0, BMP, 34264-5 #### [facility] ([id number]) [address] [place] [address] #### HA1C #### [facility] ([id number]) [address], [address] [place] [address] Urea nitrogen [Mass/Vol] 19 mg/dL Normal 5-27 [facility] Comment on above: Performed By: #### C BCA, PINR, 60391-5, BMP, 39091-4 #### [facility] ([id number]) [address] [place] [address] #### HA1C #### [facility] ([id number]) [address], [address] [place] [address] CBC AND AUTO DIFFon 08-10-20 24 ABSOLUTE BASOPHIL 0.1 X10E9/L Normal 0.0-0.2 [facility] Comment on above: Performed By: #### C BCA, PINR, 50647-4, BMP, 51864-0 #### [facility] ([id number]) [address] [place] [address] #### HA1C #### [facility] ([id number]) [address], [address] [place] [address] ABSOLUTE NEUTROPHIL 8.2 X10E9/L High 1.5-6.6 [facility] Comment on above: Performed By: #### C BCA, PINR, 56174-0, BMP, 80755-3 #### [facility] ([id number]) [address] [place] [address] #### HA1C #### [facility] ([id number]) [address], [address] [place] [address] Basophils/100 WBC (Bld) 0.5 % Normal [facility] Comment on above: Performed By: #### C BCA, PINR, 41297-9, BMP, 95618-8 #### [facility] ([id number]) [address] [place] [address] #### HA1C #### [facility] ([id number]) [address], [address] [place] [address] Eosinophils (Bld) [#/Vol] 0.1 10*3/uL Normal 0.0-0.4 [facility] [facility] Comment on above: Performed By: #### C BCA, PINR, 25797-1, BMP, 74478-0 #### [facility] ([id number]) [address] [place] [address] #### HA1C #### [facility] ([id number]) [address], [address] [place] [address] Eosinophils/100 WBC (Bld) 1.3 % Normal [facility] Comment on above: Performed By: #### C BCA, PINR, 36695-3, BMP, 95282-2 #### [facility] ([id number]) [address] [place] [address] 119[address] #### HA1C #### [facility] ([id number]) [address], [address] [place] [address] Erythrocyte distribution width (RBC) [Ratio] 14.9 % Normal 11.5-15.0 [facility] Comment on above: Performed By: #### C BCA, PINR, 17995-2, BMP, 33708-7 #### [facility] ([id number]) [address] [place] [address] #### HA1C #### [facility] ([id number]) [address], [address] [place] [address] Hematocrit (Bld) [Volume fraction] 41.2 % Normal 39-49 [facility] Comment on above: Performed By: #### C BCA, PINR, 42087-8, BMP, 91784-4 #### [facility] ([id number]) [address] [place] [address] #### HA1C #### [facility] ([id number]) [address], [address] [place] [address] Hemoglobin (Bld) [Mass/Vol] 13.8 g/dL Normal 13.0-17.0 [facility] Comment on above: Performed By: #### C BCA, PINR, 12561-5, BMP, 07361-9 #### [facility] ([id number]) [address] [place] [address] #### HA1C #### [facility] ([id number]) [address], [address] [place] [address] Lymphocytes (Bld) [#/Vol] 1.5 10*3/uL Normal 1.0-3.5 [facility] Comment on above: Performed By: #### C BCA, PINR, 33052-3, BMP, 90517-0 #### [facility] ([id number]) [address] [place] [address] #### HA1C #### [facility] ([id number]) [address], [address] [place] [address] Lymphocytes/100 WBC (Bld) 14.0 % Normal [facility] Comment on above: Performed By: #### C BCA, PINR, 38015-7, BMP, 44246-5 #### [facility] ([id number]) [address] [place] [address] #### HA1C #### [facility] ([id number]) [address], [address] [place] [address] MCH (RBC) [Entitic mass] 29.8 pg Normal 27-34 [facility] Comment on above: Performed By: #### C BCA, PINR, 27162-2, BMP, 17227-6 #### [facility] ([id number]) [address] [place] [address] #### HA1C #### [facility] ([id number]) [address], [address] [place] [address] MCHC (RBC) [Mass/Vol] 33.6 g/dL Normal 32-36 [facility] Comment on above: Performed By: #### C BCA, PINR, 56221-9, BMP, 07547-4 #### [facility] ([id number]) [address] [place] [address] #### HA1C #### [facility] ([id number]) [address], [address] [place] [address] MCV (RBC) [Entitic vol] 89 fL Normal 80-100 [facility] Comment on above: Performed By: #### C BCA, PINR, 82231-4, BMP, 02081-6 #### [facility] ([id number]) [address] [place] [address] #### HA1C #### [facility] ([id number]) [address], [address] [place] [address] Monocytes (Bld) [#/Vol] 0.9 10*3/uL Normal 0-0.9 [facility] Comment on above: Performed By: #### C BCA, PINR, 74344-7, BMP, 58497-0 #### [facility] ([id number]) [address] [place] [address] #### HA1C #### [facility] ([id number]) [address], [address] [place] [address] Monocytes/100 WBC (Bld) 8.0 % Normal [facility] Comment on above: Performed By: #### C BCA, PINR, 94328-0, BMP, 02817-6 #### [facility] ([id number]) [address] [place] [address] #### HA1C #### [facility] ([id number]) [address], [address] [place] [address] Neutrophils/100 WBC (Bld) 76.2 % Normal [facility] Comment on above: Performed By: #### C BCA, PINR, 43243-6, BMP, 99519-0 #### [facility] ([id number]) [address] [place] [address] #### HA1C #### [facility] ([id number]) [address], [address] [place] [address] Platelet mean volume (Bld) [Entitic vol] 8.1 fL Normal 7-12 [facility] Comment on above: Performed By: #### C ALLY, PINR, 61687-6, BMP, 88674-8 #### [facility] ([id number]) [address] [place] [address] 928[address] #### HA1C #### [facility] ([id number]) [address], [address] [place] [address] Platelets (Bld) [#/Vol] 150 10*3/uL Normal 150-450 [facility] Comment on above: Performed By: #### C ALLY, PINR, 12045-2, BMP, 28146-9 #### [facility] ([id number]) [address] [place] [address] 995[address] #### HA1C #### [facility] ([id number]) [address], [address] [place] [address] RBC COUNT 4.64 X10E12/L Normal 4.10-5.70 [facility] Comment on above: Performed By: #### C BCA, PINR, 36552-3, BMP, 10542-4 #### [facility] ([id number]) [address] [place] [address] 33090 #### HA1C #### [facility] ([id number]) [address] [place] [address] WBC (Bld) [#/Vol] 10.8 10*3/uL Normal 4.0-11.0 [facility] Comment on above: Performed By: #### C ALLY, PINR, 58387-2, BMP, 90889-3 #### [facility] ([id number]) [address] [facility] [address], [place] [address] #### HA1C #### [facility] ([id number]) [address], [address] [place] [address] CT BRAIN WO CONT STROKE ALER Ton [...] low as reasonably achievable. Finalized by Francis Porars MD on 08/10/2024 11:23 AM Normal [facility] CT CTA CAROTIDon 08-10-2024 CT CTA CAROTID [...] Automated exposure control was utilized. The [place] Symptomatic Carotid Endarterectomy Trial (NASCET)calculation of ICA [...] Porras MD on 08/10/2024 11:38 AM Normal [facility] CT CTA HEADon 08-10-2024 CT CTA HEAD [...] sinuses. IMPRESSION: * Unremarkable CTA of the ione of [place]. No high grade arterial stenosis, large vessel occlusion or aneurysm, within confines of venous contamination. * MRI is the most sensitive to assess for ischemic changes if clinically warranted. Finalized by Jesse Kraus on 08/10/2024 11:42 AM Normal [facility] Glucose Glucometer (BldC) [M ass/Vol]on 08-10-2024 Glucose [Mass/Vol] 87 mg/dL Normal 65-99 [facility] HGB A1C (GLYCO-HGB)on 2023 Glucose [Mass/Vol] 105 mg/dL Normal [facility] Comment on above: Performed By: #### C BCA, PINR, 64632-1, BMP, 65172-4 #### [facility] ([id number]) [address] [place] [address] 32430 #### HA1C #### [facility] ([id number]) [address], [address] [place] [address] HbA1c (Bld) [Mass fraction] 5.3 % Normal 4.4-5.6 [facility] Comment on above: Result Comment: NOTE ADA Guidelines Result HgbA1c Normal : less than 5.7 % Prediabetes : 5.7 % to 6.4 % Diabetes : > 6.4 % Use with caution in patients with abnormal hemoglobin variants as the half-life of red blood cells and in vivo glycation rates are affected. Performed By: #### C BCA, PINR, 20843-8, BMP, 98970-0 #### [facility] ([id number]) [address] [place] [address] #### HA1C #### [facility] ([id number]) [address], [address] [place] [address] PROTIME AND INRon 08-10-2024 INR Coag (PPP) [Relative time] 1.1 {INR} Normal 0.8-1.1 [facility] Comment on above: Performed By: #### C BCA, PINR, 30692-6, BMP, 15888-2 #### [facility] ([id number]) [address] [place] [address] 8[address] #### HA1C #### [facility] ([id number]) [address] [place] [address] PT Coag (PPP) [Time] 12.6 s Normal 9.8-13.2 [facility] Comment on above: Result Comment: NEW REFERENCE RANGE Performed By: #### C BCA, PINR, 26928-5, BMP, 85432-6 #### [facility] ([id number]) [address] [place] [address] #### HA1C #### [facility] ([id number]) [address] [place] [address] Troponin I.cardiac High sens itivity method [Mass/Vol]on 08-10-2024 1 HOUR TROP I, HIGH SENSITIVITY 4 ng/L Normal <21 [facility] Comment on above: Performed By: #### C BCA, PINR, 84769-5, BMP, 06768-5 #### [facility] ([id number]) [address] [place] [address] #### HA1C #### [facility] ([id number]) [address] [place] [address] TROPONIN I, HIGH SENSITIVITY 4 ng/L Normal <21 [facility] Comment on above: Performed By: #### C BCA, PINR, 17784-0, BMP, 26027-4 #### [facility] ([id number]) [address] [place] [address] 23891 #### HA1C #### [facility] ([id number]) [address] [place] [address] XR CHEST 1 VIEW STROKEon XR CHEST [...] Porras MD on 08/10/2024 12:31 PM Normal [facility] aPTT Coag (PPP) [Time]on aPTT Coag (Bld) [Time] 32 s Normal 26-37 [facility] Comment on above: Result Comment: NEW REFERENCE RANGE Performed By: #### C BCA, PINR, 52470-0, BMP, 22478-5 #### [facility] ([id number]) [address] [place] [address] 657[address] #### HA1C #### [facility] ([id number]) [address] [place] [address] BLOOD CULTURE 1on 06-26-2024 BLOOD CULTURE 1 Blood Culture 1 NG5D NO GROWTH AT 5 DAYS.^NO GROWTH AT 5 DAYS. [facility] BLOOD CULTURE 2on 06-26-2024 BLOOD CULTURE 2 Blood Culture 2 NG5D NO GROWTH AT 5 DAYS.^NO GROWTH AT 5 DAYS. [facility] No Panel Informationon 06-26 [facility] XR Foot Complete Left*on XR Foot Complete Left* FINDINGS: Mild hallux valgus. Mild 1st MTP, interphalangeal joint space loss. Small plantar calcaneal spur. Posterior calcaneal sclerosis can be consistent with stress fracture if clinically suspect. IMPRESSION: 1. Posterior calcaneal findings can be consistent with stress fracture if clinically suspect. Report reported and signed by Vu Moore on 05/13/2022 1312 Normal [facility] Special[facility] C-Reactive Proteinon 022 CRP IV 0.8 mg/dl Normal <5.0 [facility] Comment on above: Performed By: #### C MP, CRP, FT4, LIPD, FT3, ESR, TSH, CBC #### [facility] [address], [place] [id number] Complete Blood Counton 11-10 Erythrocyte distribution width (RBC) [Ratio] 13.9 % Normal 11.0-15.0 [facility] Comment on above: Performed By: #### C MP, CRP, FT4, LIPD, FT3, ESR, TSH, CBC #### [facility] [address], [place] [id number] Hematocrit (Bld) [Volume fraction] 48.5 % Normal 38.5-50.0 [facility] Comment on above: Performed By: #### C MP, CRP, FT4, LIPD, FT3, ESR, TSH, CBC #### [facility] [address], [place] [id number] Hemoglobin (Bld) [Mass/Vol] 15.1 g/dL Normal 13.0-17.1 [facility] Comment on above: Performed By: #### C MP, CRP, FT4, LIPD, FT3, ESR, TSH, CBC #### [facility] [address], [place] [id number] MCH (RBC) [Entitic mass] 28.6 pg Normal 27.0-33.0 [facility] Comment on above: Performed By: #### C MP, CRP, FT4, LIPD, FT3, ESR, TSH, CBC #### [facility] [address], [place] [id number] MCHC (RBC) [Mass/Vol] 31.1 g/dL Low 32.0-36.0 [facility] Comment on above: Performed By: #### C MP, CRP, FT4, LIPD, FT3, ESR, TSH, CBC #### [facility] [address], [place] [id number] MCV (RBC) [Entitic vol] 92 fL Normal 80-100 [facility] Comment on above: Performed By: #### C MP, CRP, FT4, LIPD, FT3, ESR, TSH, CBC #### [facility] [address], [place] [id number] Platelet mean volume (Bld) [Entitic vol] 9.10 fL Normal 7.50-12.50 [facility] Comment on above: Performed By: #### C MP, CRP, FT4, LIPD, FT3, ESR, TSH, CBC #### [facility] [address], [place] [id number] Platelets (Bld) [#/Vol] 151 10*3/uL Normal 140-400 [facility] Comment on above: Performed By: #### C MP, CRP, FT4, LIPD, FT3, ESR, TSH, CBC #### [facility] [address], [place] [id number] RBC (Bld) [#/Vol] 5.28 10*6/uL Normal 4.20-5.80 [facility] Comment on above: Performed By: #### C MP, CRP, FT4, LIPD, FT3, ESR, TSH, CBC #### [facility] [address], [place] [id number] RDW-SD 46.7 fL Normal 37.0-50.0 [facility] Comment on above: Performed By: #### C MP, CRP, FT4, LIPD, FT3, ESR, TSH, CBC #### [facility] [address], [place] [id number] WBC (Bld) [#/Vol] 10.2 10*3/uL Normal 3.8-11.0 [facility] Comment on above: Performed By: #### C MP, CRP, FT4, LIPD, FT3, ESR, TSH, CBC #### [facility] [address], [place] [id number] Comprehensive Metabolic Pane reji 11-10-2021 Albumin [Mass/Vol] 4.1 g/dL Normal 3.6-5.1 [facility] Comment on above: Performed By: #### C MP, CRP, FT4, LIPD, FT3, ESR, TSH, CBC #### [facility] [address], [place] [id number] Albumin/Globulin [Mass ratio] 1.6 {ratio} Normal 1.0-2.5 [facility] Comment on above: Performed By: #### C MP, CRP, FT4, LIPD, FT3, ESR, TSH, CBC #### [facility] [address], [place] [id number] ALP [Catalytic activity/Vol] 98 U/L Normal 40-129 [facility] Comment on above: Performed By: #### C MP, CRP, FT4, LIPD, FT3, ESR, TSH, CBC #### [facility] [address], [place] [id number] ALT [Catalytic activity/Vol] 36 U/L Normal 9-46 [facility] Comment on above: Result Comment: 08/13 Female reference range changed. Performed By: #### C MP, CRP, FT4, LIPD, FT3, ESR, TSH, CBC #### [facility] [address], [place] [id number] Anion gap [Moles/Vol] 16 mmol/L Normal 12-20 [facility] Comment on above: Result Comment: Effe ctive 09/18/2019 reference range changed. Performed By: #### C MP, CRP, FT4, LIPD, FT3, ESR, TSH, CBC #### [facility] [address], [place] [id number] AST [Catalytic activity/Vol] 19 U/L Normal 10-40 [facility] Comment on above: Performed By: #### C MP, CRP, FT4, LIPD, FT3, ESR, TSH, CBC #### [facility] [address], [place] [id number] Bilirubin [Mass/Vol] 0.65 mg/dL Normal 0.30-1.20 [facility] Comment on above: Performed By: #### C MP, CRP, FT4, LIPD, FT3, ESR, TSH, CBC #### [facility] [address], [place] [id number] BUN/CREA 13 Ratio Normal 6-22 [facility] Comment on above: Performed By: #### C MP, CRP, FT4, LIPD, FT3, ESR, TSH, CBC #### [facility] [address], [place] [id number] Calcium [Mass/Vol] 8.5 mg/dL Low 8.6-10.2 [facility] Comment on above: Performed By: #### C MP, CRP, FT4, LIPD, FT3, ESR, TSH, CBC #### [facility] [address], [place] [id number] Chloride [Moles/Vol] 107 mmol/L Normal 98-107 [facility] Comment on above: Performed By: #### C MP, CRP, FT4, LIPD, FT3, ESR, TSH, CBC #### [facility] [address], [place] [id number] CO2 [Moles/Vol] 25 mmol/L Normal 20-31 [facility] Comment on above: Performed By: #### C MP, CRP, FT4, LIPD, FT3, ESR, TSH, CBC #### [facility] [address], [place] [id number] Creatinine [Mass/Vol] 1.6 mg/dL High 0.7-1.4 [facility] Comment on above: Performed By: #### C MP, CRP, FT4, LIPD, FT3, ESR, TSH, CBC #### [facility] [address], [place] [id number] eGFRAA 53 mL/min/1.73m2 Low >60 [facility] Comment on above: Performed By: #### C MP, CRP, FT4, LIPD, FT3, ESR, TSH, CBC #### [facility] [address], [place] [id number] eGFRNAA 44 mL/min/1.73m2 Low >60 [facility] [employer] Technician Comment on above: Performed By: #### C MP, CRP, FT4, LIPD, FT3, ESR, TSH, CBC #### [facility] [address], [place] [id number] Globulin (S) [Mass/Vol] 2.5 g/dL Normal 1.9-3.7 [facility] [employer] Comment on above: Performed By: #### C MP, CRP, FT4, LIPD, FT3, ESR, TSH, CBC #### [facility] [address], [place] [id number] Glucose [Mass/Vol] 88 mg/dL Normal 65-99 Natalie hsieh [place] [employer] Techn[employer] Comment on above: Result Comment: For FASTING Glucose --- ADA reference ranges: Normal 65-99 mg/dl Prediabetes 100-125 Diabetes >/= 126 Performed By: #### C MP, CRP, FT4, LIPD, FT3, ESR, TSH, CBC #### [facility] [address], [place] [id number] Potassium [Moles/Vol] 5.2 mmol/L Normal 3.5-5.5 [facility] Comment on above: Performed By: #### C MP, CRP, FT4, LIPD, FT3, ESR, TSH, CBC #### [facility] [address], [place] [id number] Protein [Mass/Vol] 6.6 g/dL Normal 6.1-8.1 Natalie [facility] Ordnance Technician Comment on above: Performed By: #### C MP, CRP, FT4, LIPD, FT3, ESR, TSH, CBC #### [facility] [address], [place] [id number] Sodium [Moles/Vol] 143 mmol/L Normal 135-146 [facility] Comment on above: Performed By: #### C MP, CRP, FT4, LIPD, FT3, ESR, TSH, CBC #### [facility] [address], [place] [id number] Urea nitrogen [Mass/Vol] 20 mg/dL Normal 7-25 [facility] Comment on above: Performed By: #### C MP, CRP, FT4, LIPD, FT3, ESR, TSH, CBC #### [facility] [address], [place] [id number] Free T3on 11-10-2021 FT3 2.63 pg/mL Normal 2.00-4.40 [facility] Comment on above: Performed By: #### C MP, CRP, FT4, LIPD, FT3, ESR, TSH, CBC #### [facility] [address], [place] [id number] Free T4on 11-10-2021 Free T4 [Mass/Vol] 1.00 ng/dL Normal 0.80-1.80 [facility] Comment on above: Performed By: #### C MP, CRP, FT4, LIPD, FT3, ESR, TSH, CBC #### [facility] [address], [place] [id number] Lipid Panelon 11-10-2021 Cholesterol [Mass/Vol] 147 mg/dL Normal 125-200 [facility] Comment on above: Result Comment: Low risk < 200mg/dL Borderline risk 201-239 mg/dl High risk > or equal to 240 Performed By: #### C MP, CRP, FT4, LIPD, FT3, ESR, TSH, CBC #### [facility] [address], [place] [id number] Cholesterol in HDL [Mass/Vol] 71 mg/dL Normal >40 [facility] Comment on above: Result Comment: High Cardiovascular Risk HDL <40 mg/dL Low Cardiovascular Risk HDL > or equal to 60 mg/dl Performed By: #### C MP, CRP, FT4, LIPD, FT3, ESR, TSH, CBC #### [facility] [address], [place] [id number] Cholesterol in LDL [Mass/Vol] 58 mg/dL Normal [facility] Comment on above: Result Comment: LDL ATP III CLASSIFICATION LDL less than 100 mg/dl Optimal LDL 100-129 mg/dl Near or above optimal LDL 130-159 Borderline high LDL 160-189 High LDL greater than 189 mg/dl Very High Performed By: #### C MP, CRP, FT4, LIPD, FT3, ESR, TSH, CBC #### [facility] [address], [place] [id number] Cholesterol in VLDL [Mass/Vol] 18 mg/dL Normal [facility] Comment on above: Performed By: #### C MP, CRP, FT4, LIPD, FT3, ESR, TSH, CBC #### [facility] [address], [place] [id number] Cholesterol.total/Cho lesterol in HDL [Mass ratio] 2 {ratio} Normal [facility] Comment on above: Performed By: #### C MP, CRP, FT4, LIPD, FT3, ESR, TSH, CBC #### [facility] [address], [place] [id number] Triglyceride [Mass/Vol] 89 mg/dL Normal 30-150 [facility] Comment on above: Result Comment: TRIG ATPIII CLASSIFICATIONS TRIG less than 150 mg/dl Normal TRIG 150-199 mg/dl Borderline High TRIG 200-500 mg/dl High TRIG greather than 500 mg/dl Very High Performed By: #### C MP, CRP, FT4, LIPD, FT3, ESR, TSH, CBC #### [facility] [address], [place] [id number] PSA SCREEN (MEDICARE)on 10-15 TPSA 0.731 ng/mL Normal <4.000 [facility] Comment on above: Result Comment: PSA Test Method: ECLIA/Alicia e 601 Performed By: #### P SA #### [facility] [address], [place] [id number] RBC Sedimentation Rateon ESR (Bld) [Velocity] 57.00 mm/h High 0.00-20.00 [facility] Specialist Comment on above: Performed By: #### C MP, CRP, FT4, LIPD, FT3, ESR, TSH, CBC #### [facility] [address], [place] [id number] TSHon 11-10-2021 TSH 2.990 uIU/mL Normal 0.400-4.500 [place] [employer] Comment on above: Performed By: #### C MP, CRP, FT4, LIPD, FT3, ESR, TSH, CBC #### [facility] [address], [place] [id number] Uric Acidon 10-20-2021 URIC 8.5 mg/dL High 4.0-8.0 [facility] Ordnance Technician Comment on above: Result Comment: Refe rence range change 07/30/2017. Prior reference range F 2.4-5.7mg/dL. M 3.4-7.0 mg/dL. Performed By: #### U BOSSMAN #### [facility] [address], [place] [id number] XR pre/post mri xrayon 08-01 XR pre/post mri xray [facility] Main [place] [address] [place] [address] MRI Report Signed Patient: Hakeem Escobedo MR#: [id number] : 1945 Acct:[id number] Age/Sex: 75 / M ADM Date: 08/01/21 Loc: [facility] Room: Type: [facility] Attending Dr: Petrona Boyer NP Ordering Provider: Petrona Boyer NP Date of Service: 08/01/21 MR/MR lumbar spine wo con: M51.26 ([id number]) XR/XR pre/post mri xray: M51.26 Copies to: [...] Kirk Santiago M.D.08/01/2021 5:06 PM Dictation Location: [place] [address] Transcribed By: [facility] 08/01/21 170 Dictated By: Kirk Santiago II, MD 08/01/21 8082 Signed By: 08/01/21 170 [facility] Vital Signs Date Time Vital Sign Value Performing Clinician Greta serrato 06-25-2025 11:22-0400 Body height 167.6 cm Mono Knowles MD Work Phone: [facility] 06-25-2025 11:22-0400 Body mass index (BMI) [Ratio] 31.47 kg/m2 Mono Knowles MD Work Phone: [facility] 06-25-2025 11:22-0400 Body temperature 97.9 [degF] Mono Knowles MD Work Phone: [facility] 06-25-2025 11:22-0400 Body weight 88.45 kg Mono Knowles MD Work Phone: [facility] 06-25-2025 11:22-0400 Diastolic blood pressure 76 mm[Hg] Mono Knowles MD Work Phone: [facility] 06-25-2025 11:22-0400 Heart rate 66 /min Mono Knowles MD Work Phone: [facility] 06-25-2025 11:22-0400 SaO2% (BldA) [Mass fraction] 96 % Mono Knowles MD Work Phone: [facility] 06-25-2025 11:22-0400 Systolic blood pressure 124 mm[Hg] Mono Knowles MD Work Phone: [facility] 06-21-2025 09:07-0400 Body height 167.6 cm Kami Thomason ENGRAVER MACHINE Work Phone: [facility] 06-21-2025 09:07-0400 Body mass index (BMI) [Ratio] 31.96 kg/m2 Kami Thomason ENGRAVER MACHINE Work Phone: [facility] 06-21-2025 09:07-0400 Body weight 89.81 kg Kami Thomason ENGRAVER MACHINE Work Phone: [facility] 06-21-2025 09:07-0400 Diastolic blood pressure 78 mm[Hg] Kami Thomason ENGRAVER MACHINE Work Phone: [facility] 06-21-2025 09:07-0400 Heart rate 71 /min Kami Thomason ENGRAVER MACHINE Work Phone: [facility] 06-21-2025 09:07-0400 Respiratory rate 16 /min Kami Thomason ENGRAVER MACHINE Work Phone: [facility] 06-21-2025 09:07-0400 SaO2% (BldA) [Mass fraction] 96 % Kami Thomason ENGRAVER MACHINE Work Phone: [facility] 06-21-2025 09:07-0400 Systolic blood pressure 110 mm[Hg] Kami Thomason ENGRAVER MACHINE [facility] Phone: [facility] [facility] 03-07-2025 08:46-0400 Body height 167.6 cm Mono Knowles MD Work Phone: [facility] 03-07-2025 08:46-0400 Body mass index (BMI) [Ratio] 31.15 kg/m2 Mono Knowles MD Work Phone: [facility] 03-07-2025 08:46-0400 Body weight 87.54 kg Mono Knowles MD Work Phone: [facility] 03-07-2025 08:46-0400 Diastolic blood pressure 70 mm[Hg] Mono Knowles MD Work Phone: [facility] 03-07-2025 08:46-0400 Heart rate 54 /min Mono Knowles MD Work Phone: [facility] 03-07-2025 08:46-0400 SaO2% (BldA) [Mass fraction] 97 % Mono Knowles MD Work Phone: [facility] 03-07-2025 08:46-0400 Systolic blood pressure 128 mm[Hg] Mono Knowles MD Work Phone: [facility] 02-28-2025 10:40-0400 Body height 167.6 cm Mono Knowles MD Work Phone: [facility] 02-28-2025 10:40-0400 Body mass index (BMI) [Ratio] 31.09 kg/m2 Mono Knowles MD Work Phone: [facility] 02-28-2025 10:40-0400 Body weight 87.36 kg Mono Knowles MD Work Phone: [facility] 02-28-2025 10:40-0400 Diastolic blood pressure 82 mm[Hg] Mono Knowles MD Work Phone: [facility] 02-28-2025 10:40-0400 Heart rate 64 /min Mono Knowles MD Work Phone: [facility] 02-28-2025 10:40-0400 Respiratory rate 16 /min Mono Knowles MD Work Phone: [facility] 02-28-2025 10:40-0400 SaO2% (BldA) [Mass fraction] 97 % Mono Knowles MD Work Phone: [facility] 02-28-2025 10:40-0400 Systolic blood pressure 120 mm[Hg] Mono Knowles MD Work Phone: [facility] 02-12-2025 08:48-0400 Body height 167.6 cm Mono Knowles MD Work Phone: [facility] 02-12-2025 08:48-0400 Body mass index (BMI) [Ratio] 31.31 kg/m2 Mono Knowles MD Work Phone: [facility] 02-12-2025 08:48-0400 Body weight 88 kg Mono Knowles MD Work Phone: [facility] 02-12-2025 08:48-0400 Diastolic blood pressure 76 mm[Hg] Mono Konwles MD Work Phone: [facility] 02-12-2025 08:48-0400 Heart rate 63 /min Mono Knowles MD Work Phone: [facility] 02-12-2025 08:48-0400 SaO2% (BldA) [Mass fraction] 96 % Mono Knowles MD Work Phone: [facility] 02-12-2025 08:48-0400 Systolic blood pressure 124 mm[Hg] Mono Knowles MD Work Phone: [facility] 12-06-2024 09:07-0400 Body height 167.6 cm Mono Knowles MD Work Phone: [facility] 12-06-2024 09:07-0400 Body mass index (BMI) [Ratio] 30.99 kg/m2 Mono Knowles MD Work Phone: [facility] 12-06-2024 09:07-0400 Body weight 87.09 kg Mono Knowles MD Work Phone: [facility] 12-06-2024 09:07-0400 Diastolic blood pressure 76 mm[Hg] Mono Knowles MD Work Phone: [facility] 12-06-2024 09:07-0400 Heart rate 62 /min Mono Knowles MD Work Phone: [facility] 12-06-2024 09:07-0400 SaO2% (BldA) [Mass fraction] 98 % Mono Knowles MD Work Phone: [facility] 12-06-2024 09:07-0400 Systolic blood pressure 128 mm[Hg] Mono Knowles MD Work Phone: [facility] 11-08-2024 14:24-0500 Body mass index (BMI) [Ratio] 30.89 kg/m2 Christopher Jossy DO Work Phone: [facility] 11-08-2024 14:24-0500 Body weight 86.82 kg Christopher Jossy DO Work Phone: [facility] 11-08-2024 14:24-0500 Diastolic blood pressure 84 mm[Hg] Christopher Jossy DO Work Phone: [facility] 11-08-2024 14:24-0500 Heart rate 64 /min Christopher Jossy DO Work Phone: [facility] 11-08-2024 14:24-0500 SaO2% (BldA) [Mass fraction] 97 % Christopher Jossy DO Work Phone: [facility] 11-08-2024 14:24-0500 Systolic blood pressure 132 mm[Hg] Christopher Jossy DO Work Phone: [facility] 11-01-2024 08:12-0500 Body height 167.6 cm Norma Jin MD Work Phone: [facility] 11-01-2024 08:12-0500 Body mass index (BMI) [Ratio] 30.18 kg/m2 Norma Jin MD Work Phone: [facility] 11-01-2024 08:12-0500 Body weight 84.82 kg Norma Jin MD Work Phone: [facility] 11-01-2024 08:12-0500 Diastolic blood pressure 77 mm[Hg] Norma Jin MD Work Phone: [facility] 11-01-2024 08:12-0500 Heart rate 75 /min Norma Jin MD Work Phone: [facility] 11-01-2024 08:12-0500 Systolic blood pressure 113 mm[Hg] Norma Jin MD Work Phone: [facility] 10-09-2024 11:11-0500 Body height 167.6 cm Mono Knowles MD Work Phone: [facility] 10-09-2024 11:11-0500 Body mass index (BMI) [Ratio] 30.18 kg/m2 Mono Knowles MD Work Phone: [facility] 10-09-2024 11:11-0500 Body weight 84.82 kg Mono Knowles MD Work Phone: [facility] 10-09-2024 11:11-0500 Diastolic blood pressure 72 mm[Hg] Mono Knowles MD Work Phone: [facility] 10-09-2024 11:11-0500 Heart rate 67 /min Mono Knowles MD Work Phone: [facility] 10-09-2024 11:11-0500 SaO2% (BldA) [Mass fraction] 96 % Mono Knowles MD Work Phone: [facility] 10-09-2024 11:11-0500 Systolic blood pressure 126 mm[Hg] Mono Knowles MD Work Phone: [facility] 09-22-2024 08:33-0500 Body height 167.6 cm Marylou LOVELACE Work Phone: [facility] 09-22-2024 08:33-0500 Body mass index (BMI) [Ratio] 30.34 kg/m2 Marylou Hemmer PA Work Phone: [facility] 09-22-2024 08:33-0500 Body weight 85.28 kg Marylou Hemmer PA Work Phone: [facility] 09-22-2024 08:33-0500 Diastolic blood pressure 72 mm[Hg] Marylou Hemmer PA Work Phone: [facility] 09-22-2024 08:33-0500 Heart rate 52 /min Marylou Hemmer PA Work Phone: [facility] 09-22-2024 08:33-0500 SaO2% (BldA) [Mass fraction] 94 % Marylou Hemmer PA Work Phone: [facility] 09-22-2024 08:33-0500 Systolic blood pressure 116 mm[Hg] Marylou Bartholomewmer PA Work Phone: [facility] 08-30-2024 08:59-0500 Body height 167.6 cm Mono Knowles MD Work Phone: [facility] 08-30-2024 08:59-0500 Body mass index (BMI) [Ratio] 29.86 kg/m2 Mono Knowles MD Work Phone: [facility] 08-30-2024 08:59-0500 Body weight 83.92 kg Mono Knowles MD Work Phone: [facility] 08-30-2024 08:59-0500 Diastolic blood pressure 68 mm[Hg] Mono Knowles MD Work Phone: [facility] 08-30-2024 08:59-0500 Heart rate 66 /min Mono Knowles MD Work Phone: [facility] 08-30-2024 08:59-0500 SaO2% (BldA) [Mass fraction] 96 % Mono Knowles MD Work Phone: [facility] 08-30-2024 08:59-0500 Systolic blood pressure 112 mm[Hg] Mono Knowles MD Work Phone: [facility] 07-12-2024 10:12-0400 Body height 167.6 cm Mono Knowles MD Work Phone: [facility] 07-12-2024 10:12-0400 Body mass index (BMI) [Ratio] 30.34 kg/m2 Mono Knowles MD Work Phone: [facility] 07-12-2024 10:12-0400 Body weight 85.28 kg Mono Knowles MD Work Phone: [facility] 07-12-2024 10:12-0400 Diastolic blood pressure 74 mm[Hg] Mono Knowles MD Work Phone: [facility] 07-12-2024 10:12-0400 Heart rate 62 /min Mono Knowles MD Work Phone: [facility] 07-12-2024 10:12-0400 SaO2% (BldA) [Mass fraction] 97 % Mnoo Knowles MD Work Phone: [facility] 07-12-2024 10:12-0400 Systolic blood pressure 132 mm[Hg] Mono Knowles MD Work Phone: [facility] 06-26-2024 09:15-0400 Body height 167.6 cm Mono Knowles MD Work Phone: [facility] 06-26-2024 09:15-0400 Body mass index (BMI) [Ratio] 29.7 kg/m2 Mono Knowles MD Work Phone: [facility] 06-26-2024 09:15-0400 Body weight 83.46 kg Mono Knowles MD Work Phone: [facility] 06-26-2024 09:15-0400 Diastolic blood pressure 70 mm[Hg] Mono Knowles MD Work Phone: [facility] 06-26-2024 09:15-0400 Heart rate 63 /min Mono Knowles MD Work Phone: [facility] 06-26-2024 09:15-0400 SaO2% (BldA) [Mass fraction] 97 % Mono Knowles MD Work Phone: [facility] 06-26-2024 09:15-0400 Systolic blood pressure 124 mm[Hg] Mono Knowles MD Work Phone: [facility] 05-24-2024 08:42-0400 Body height 167.6 cm Yvette Ray ENGRAVER MACHINE Work Phone: [facility] 05-24-2024 08:42-0400 Body mass index (BMI) [Ratio] 29.86 kg/m2 Yvette Ray ENGRAVER MACHINE Work Phone: [facility] 05-24-2024 08:42-0400 Body weight 83.92 kg Yvette Cory ENGRAVER MACHINE Work Phone: [facility] 05-24-2024 08:42-0400 Diastolic blood pressure 82 mm[Hg] Yvette Ray ENGRAVER MACHINE Work Phone: [facility] 05-24-2024 08:42-0400 Heart rate 60 /min Yvette Cory ENGRAVER MACHINE Work Phone: [facility] 05-24-2024 08:42-0400 SaO2% (BldA) [Mass fraction] 98 % Yvette Ray ENGRAVER MACHINE Work Phone: [facility] 05-24-2024 08:42-0400 Systolic blood pressure 122 mm[Hg] Yvette Ray ENGRAVER MACHINE Work Phone: [facility] 05-10-2024 09:59-0400 Body height 167.6 cm Mono Knowles MD Work Phone: [facility] 05-10-2024 09:59-0400 Body mass index (BMI) [Ratio] 30.18 kg/m2 Mono Knowles MD Work Phone: [facility] 05-10-2024 09:59-0400 Body weight 84.82 kg Mono Knowles MD Work Phone: [facility] 05-10-2024 09:59-0400 Diastolic blood pressure 82 mm[Hg] Mono Knowles MD Work Phone: [facility] 05-10-2024 09:59-0400 Heart rate 56 /min Mono Knowles MD Work Phone: [facility] 05-10-2024 09:59-0400 SaO2% (BldA) [Mass fraction] 98 % Mono Knowles MD Work Phone: [facility] 05-10-2024 09:59-0400 Systolic blood pressure 134 mm[Hg] Mono Knowles MD Work Phone: [facility] 12-09-2023 08:38-0400 Body height 167.6 cm Adrian Son MD Work Phone: [facility] 12-09-2023 08:38-0400 Body mass index (BMI) [Ratio] 29.86 kg/m2 Adrian Son MD Work Phone: [facility] 12-09-2023 08:38-0400 Body weight 83.92 kg Adrian Son MD Work Phone: [facility] 12-09-2023 08:38-0400 Diastolic blood pressure 70 mm[Hg] Adrian Son MD Work Phone: [facility] 12-09-2023 08:38-0400 Heart rate 63 /min Adrian Son MD Work Phone: [facility] 12-09-2023 08:38-0400 SaO2% (BldA) [Mass fraction] 95 % Adrian Son MD Work Phone: [facility] 12-09-2023 08:38-0400 Systolic blood pressure 110 mm[Hg] Adrian Son MD Work Phone: [facility] 10-27-2023 08:49-0500 Body height 167.6 cm Mono Knowles MD Work Phone: [facility] 10-27-2023 08:49-0500 Body mass index (BMI) [Ratio] 29.7 kg/m2 Mono Knowles MD Work Phone: [facility] 10-27-2023 08:49-0500 Body weight 83.46 kg Mono Knowles MD Work Phone: [facility] 10-27-2023 08:49-0500 Diastolic blood pressure 66 mm[Hg] Mono Knowles MD Work Phone: [facility] 10-27-2023 08:49-0500 Heart rate 56 /min Mono Knowles MD Work Phone: [facility] 10-27-2023 08:49-0500 SaO2% (BldA) [Mass fraction] 97 % Mono Knowles MD Work Phone: [facility] 10-27-2023 08:49-0500 Systolic blood pressure 108 mm[Hg] Mono Knowles MD Work Phone: [facility] Healthcare Encounters Encounter Date Encounter Type Care Provider Facility Start: 06-25-2025 End: 06-25-2025 Bamboo flowsheet Mono Knowles MD Work Phone: [facility] Start: 06-25-2025 End: 06-25-2025 Bamboo flowsheet Mono Knowles MD Work Phone: [facility] [facility] Start: 06-25-2025 End: 06-25-2025 Transitional care manage srvc 14 day discharge Mono Knowles MD Work Phone: [facility] [facility] Comment on above: Cerebrovascular acci dent (CVA), unspecified mechanism (HCC) (Primary Dx); Right thigh pain; Closed displaced subtrochanteric fracture of right femur, sequela; Degeneration of intervertebral disc of lumbar region, unspecified whether pain present; Acute bronchitis, unspecified organism Start: 06-25-2025 End: 06-25-2025 ambulatory MONO KNOWLES Not Available Start: 06-21-2025 End: 06-21-2025 Bamboo flowsheet Kami Thomason ENGRAVER MACHINE Work Phone: [facility] [facility] Start: 06-21-2025 End: 06-21-2025 Bamboo flowsheet Kami Thomason ENGRAVER MACHINE Work Phone: [facility] [facility] Start: 06-21-2025 End: 06-21-2025 Office outpatient visit 25 minutes Kami Thomason ENGRAVER MACHINE Work Phone: [facility] [facility] Comment on above: Acute bronchitis, un specified organism (Primary Dx); Anxiety; Chronic insomnia Start: 06-21-2025 End: 06-21-2025 ambulatory KAMI THOMASON Not Available Start: 06-15-2025 End: 06-15-2025 Refill Mono Knowles MD Work Phone: [facility] Comment on above: Cervical stenosis of spinal canal Start: 06-05-2025 End: 06-06-2025 Telephone encounter [facility] Start: 05-28-2025 ambulatory MONO KNOWLES [facility] Start: 05-26-2025 End: 05-26-2025 Telephone encounter Amparo Leonard [facility] Comment on above: HIM Start: 05-26-2025 End: 05-29-2025 [facility] Start: 05-24-2025 End: 05-24-2025 Emergency department patient visit MONO KNOWLES [facility] Start: 05-11-2025 End: 05-15-2025 Refill Summer Kay [facility] Comment on above: Anxiety Start: 05-09-2025 End: 05-09-2025 Refill Mono Knowles MD Work Phone: [facility] Comment on above: Cervical stenosis of spinal canal Start: 04-11-2025 End: 04-11-2025 Refill Summer GARZAS [facility] Comment on above: Anxiety Start: 04-10-2025 End: 04-10-2025 Refill Mono Knowles MD Work Phone: [facility] Comment on above: Cervical stenosis of spinal canal Start: 03-14-2025 End: 03-14-2025 Refill Mono Knowles MD Work Phone: [facility] Comment on above: Gastroesophageal ref lux disease with esophagitis without hemorrhage Start: 03-13-2025 End: 03-13-2025 Refill Summer [place] [facility] Comment on above: [...] 01-22-2025 Emergency department patient visit MONO KNOWLES [facility] Start: 01-08-2025 End: 01-08-2025 Refill Mono Knowles [...] hemorrhage; Benign essential hypertension (CMS/HCC); 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); Stented coronary artery; Right lumbar radiculopathy; Cerebrovascular accident (CVA), unspecified mechanism (CMS/HCC) Start: 12-06-2024 End: 12-06-2024 ambulatory MONO KNOWLES Not Available Start: 12-04-2024 End: 12-04-2024 Telephone encounter Daisy Crandall CMA [facility] Start: 11-16-2024 End: 11-16-2024 Bamboo flowsheet Tyler Sanchez MD Work Phone: [facility] Start: 11-16-2024 End: 11-16-2024 Bamboo flowsheet Tyler Sanchez MD Work Phone: [facility] Start: 11-16-2024 End: 11-16-2024 Patient encounter procedure Tyler Sanchez MD Work Phone: [facility] Comment on above: Weakness Start: 11-16-2024 [...] Available Start: 11-08-2024 End: 11-08-2024 Bamboo flowsheet Don Fenton DO Work Phone: [facility] Start: 11-08-2024 End: 11-08-2024 Bamboo flowsheet Don Fenton DO Work Phone: [facility] Start: 11-01-2024 [...] Start: 10-21-2024 End: 10-23-2024 Refill Jaxson Cunningham [employer]ER[employer] GR[employer]ER-SUPERVISOR [employer] Work Phone: [facility] Comment on above: Med [...] Start: 10-06-2024 End: 10-07-2024 ambulatory MONO KNOWLES [facility] Start: 09-22-2024 End: 09-22-2024 Office outpatient visit [...] End: 09-14-2024 Emergency department patient visit MONO [facility] Start: 09-14-2024 ambulatory [facility] Start: 08-31-2024 End: 08-31-2024 Telephone encounter Wednesday 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: [facility] Start: 08-31-2024 ambulatory MONO Coreas [facility] Start: [...] Telephone encounter Robert Curry MD Work Phone: [facility] Comment on above: Results Start: 08-23-2024 End: 08-23-2024 ambulatory KE SANCHEZ Not Available Start: 08-17-2024 End: 08-17-2024 Refill Mono Knowles MD Work Phone: [facility] Comment on above: Cervical stenosis of spinal canal Start: 08-15-2024 End: 08-22-2024 [facility] on above: NEW PATIENT REFERRAL Start: 08-10-2024 End: 08-12-2024 ambulatory MONO KNOWLES [facility] Start: 07-20-2024 End: 07-20-2024 Refill Odalys Villagomez [employer]ING PRESS OPERATOR [facility] Comment on above: Cervical stenosis of spinal canal Start: 07-19-2024 End: 07-19-2024 Refill Yvette Ray ENGRAVER MACHINE Work Phone: [facility] Comment on [...] Right lumbar radiculopathy; Vertigo; Chest discomfort Start: 06-22-2024 End: 06-22-2024 Refill Karol Wednesday 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: [facility] Comment on [...] 05-24-2024 End: 05-24-2024 Bamboo flowsheet Yvette Ray ENGRAVER MACHINE Work Phone: [facility] Start: 05-24-2024 End: 05-24-2024 Bamboo flowsheet Yvette Ray ENGRAVER MACHINE Work Phone: [facility] Start: 05-24-2024 End: 05-24-2024 Office outpatient visit 25 minutes Yvette Ray ENGRAVER MACHINE Work Phone: [facility] Comment on above: Parotiditis (Primary Dx); Cervical stenosis of spinal canal Start: 05-10-2024 End: 05-10-2024 Bamboo flowsheet Mono Knowles MD Work Phone: [facility] Start: 05-10-2024 End: 05-10-2024 Bamboo flowsheet Mono Knowles MD Work Phone: [facility] Start: 05-10-2024 End: 05-10-2024 Office outpatient visit 25 minutes Mono Knowles MD Work Phone: [facility] Comment on above: Subacute cough (Prim alessandro Dx); Acute bronchitis, unspecified organism Start: 04-25-2024 End: 04-25-2024 Refill Christin Bazzi RN [facility] Comment on above: Med Refill Start: 12-09-2023 End: 12-09-2023 Office outpatient visit 15 minutes Racheal Chi MD Work Phone: [facility] Comment on above: Benign essential hyp ertension (Primary Dx); 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 Start: 12-08-2023 Telephone encounter Quynh Bustillo [facility] Start: 11-16-2023 Telephone encounter Quynh Bustillo [facility] Start: 11-01-2023 Telephone encounter Magalie Mcdaniel RN [facility] Start: 10-28-2023 Refill [facility] Comment on above: Med Refill Start: 10-27-2023 Bamboo [employer] Mono turner MD Work Phone: [facility] [...] above: Wellness examination (Primary Dx); 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); Stented [...] Right lumbar radiculopathy Start: 09-02-2023 Refill Audra Cisneros cki [employer]ER[employer] GR[employer]ER-SUPERVISOR [employer] Work Phone: [facility] Comment on above: Med Refill Start: 02-04-[address] MONO KNOWLES Facilit y:H1 Procedures Date Procedure Procedure Detail Performing Clinician Start: 12-06-2024 Assay of prostate specific antigen total Mono Knowles MD Work Phone: Start: 11-16-2024 End: 11-16-2024 Needle emg ea extremty w/paraspinl area complete Don Fenton DO Work Phone: Start: 06-21-2024 BLOOD CULTURE 2 Generic External Data Provider Start: 06-21-2024 BLOOD CULTURE 1 Generic External Data Provider Start: 10-19-2022 Colonoscopy Audra hodges [employer]ER[employer] GR[employer]ER-SUPERVISOR [employer] Work Phone: Plan of Treatment Date Care Activity Detail Author Start: 05-24-2026 Tobacco Screening Tobacco Screening [facility] Start: 10-19-2025 Screening for malign ant neoplasm of colon Colonoscopy [facility] Start: 10-06-2025 Tobacco Screening Tobacco Screening [facility] Start: 07-04-2025 End: 07-04-2025 Patient encounter procedure 07/04/2025 9:00 AM EDT Office Visit [facility] [address] [place] [id number] Mono Knowles MD [address] [place] [address] [facility] Start: 06-25-2025 End: 06-25-2025 Patient encounter procedure [facility] Comment on above: Arrived Start: 06-21-2025 End: 06-21-2025 Patient encounter procedure 06/21/2025 9:00 AM EDT Office Visit [facility] [address] [place] [address] Kami Thomason, ENGRAVER MACHINE [address] [place] [address] Arrived [facility] Comment on above: Arrived Start: 06-06-2025 End: 06-06-2025 Patient encounter procedure [facility] Start: 05-18-2025 Tobacco Screening Tobacco Screening [facility] Start: 05-17-2025 End: 05-17-2025 Patient encounter procedure 05/17/2025 9:00 AM EDT Office Visit [facility] [address] [facility] [address] [place] [address] Mono Knowles MD [address] [facility] [address] [place] [address] [facility] Start: 05-14-2025 COVID-19 Vaccine () COVID-19 Vaccine () [facility] Start: 05-14-2025 Influenza vaccination [facility] Start: 03-07-2025 End: 03-07-2025 Patient encounter procedure [facility] Comment on above: Arrived Start: 02-28-2025 End: 02-28-2025 Patient encounter procedure 02/28/2025 10:30 AM EDT Office Visit [facility] [address] [facility] [address] [place] [address] Mono Knowles MD [address] [facility] [address] [place] [address] Arrived [facility] Comment on above: Arrived Start: 02-12-2025 End: 02-12-2025 Patient encounter procedure [facility] Comment on above: Arrived Start: 01-08-2025 End: 01-08-2025 Patient encounter procedure 01/08/2025 3:45 PM EDT Office Visit [facility] [address] [place] [address] Don Fenton DO [address] [place], [place] [id number] [facility] Start: 12-27-2024 End: 12-27-2024 Patient encounter procedure 12/27/2024 2:20 PM EDT Office Visit [facility] [address] [place] [id number] Norma Jin MD [address] [place] [address] [facility] Start: 12-19-2024 End: 12-19-2024 Patient encounter procedure 12/19/2024 10:30 AM EDT Procedure Visit [facility] [address] [facility] [address] [place] [phone] Don Fenton DO [address] [place], [place] [id number] [facility] Start: 12-08-2024 Adult BMI Screening Adult BMI Screen ing [facility] Start: 12-08-2024 Tobacco Screening Tobacco Screening [facility] Start: 12-06-2024 End: 12-06-2024 Patient encounter procedure [facility] Start: 12-05-2024 End: 12-05-2024 Patient encounter procedure 12/05/2024 1:30 PM EDT Office Visit [facility] [address] [facility] [address] [place] [phone] Neli Neal, [employer]ER[employer] GR[employer]ER-SUPERVISOR [employer] [address] [place] [phone] [facility] Start: 2024 End: 2024 Patient encounter procedure 2024 11:30 AM EDT Procedure Visit [facility] [address] [place] [phone] Tyler Sanchez MD [address] [place], [place] [id number] [facility] Start: 11-22-2024 End: 11-22-2024 Patient encounter procedure 11/22/2024 8:30 AM EDT Office Visit [facility] [address] [place] [address] Norma Jin MD [address] [place] [address] [facility] Start: 11-20-2024 End: 11-20-2024 Patient encounter procedure 11/20/2024 9:15 AM EDT Office Visit [facility] [address] [place] [address] Mono Knowles MD [address] [place] [address] [facility] Start: 11-16-2024 End: 11-16-2024 Patient encounter procedure [facility] Comment on above: Arrived Start: 11-09-2024 End: 11-09-2024 ambulatory 11/09/2024 9:00 AM EST Evaluation [facility] [address] [place] [address] Kevin Renteria, PT [address] [place] [address] [facility] Start: 11-08-2024 End: 11-08-2024 Patient encounter procedure [facility] Comment on above: Cerebrovascular acci dent (CVA), unspecified mechanism (CMS/HCC); Spinal stenosis of lumbar region with neurogenic claudication Start: 11-08-2024 End: 11-08-2025 Acetylcholine receptor, binding Acetylcholine receptor, binding Lab Routine Weakness Expected: 11/08/2024 (Approximate), Expires: 11/08/2025 [facility] Comment on above: Expected: 11/08/2024 (Approximate), Expires: 11/08/2025 Start: 11-08-2024 End: 11-08-2025 Acetylcholine receptor, blocking Acetylcholine receptor, blocking Lab Routine Weakness Expected: 11/08/2024 (Approximate), Expires: 11/08/2025 [facility] Comment on above: Expected: 11/08/2024 (Approximate), Expires: 11/08/2025 Start: 11-08-2024 End: 11-08-2025 Acetylcholine receptor, modulating Acetylcholine receptor, modulating Lab Routine Weakness Expected: 11/08/2024 (Approximate), Expires: 11/08/2025 [facility] Comment on above: Expected: 11/08/2024 (Approximate), Expires: 11/08/2025 Start: 11-08-2024 End: 11-08-2025 EMG 2 Extremities EMG 2 Extremities Neurology Routine Weakness Expected: 11/08/2024, Expires: 11/08/2025 [facility] Comment on above: Expected: 11/08/2024 , Expires: 11/08/2025 Start: 11-08-2024 End: 11-08-2025 MUSK ANTIBODY TEST MUSK ANTIBODY TEST Lab Routine Weakness Expected: 11/08/2024 (Approximate), Expires: 11/08/2025 [facility] Work Phone: Comment on above: Expected: 11/08/2024 (Approximate), Expires: 11/08/2025 Start: 11-01-2024 End: 11-01-2024 Patient encounter procedure [facility] Comment on above: Dysphagia, unspecifi ed type Start: 10-27-2024 Medicare Annual Well ness (AWV) Medicare Annual Wellness (AWV) [facility] Start: 10-26-2024 End: 10-26-2024 ambulatory 10/26/2024 11:00 AM EST Evaluation [facility] [address] [facility] [address] [place] [address] Kevin Renteria, PT [address] [facility] [address] [place] [address] [facility] Start: 10-25-2024 Tobacco Screening Tobacco Screening [facility] Start: 10-09-2024 End: 10-09-2024 Patient encounter procedure 10/09/2024 11:30 AM EST Office Visit [facility] [address] [place] [id number] Mono Knowles MD [address] [place] [address] [facility] Start: 09-22-2024 End: 09-22-2025 Basic metabolic 1998 panel - Serum or Plasma Basic metabolic panel Lab Routine RIINA (acute kidney injury) (CMS/HCC) Stage 3b chronic kidney disease (HCC) (CMS/HCC) Benign essential hypertension (CMS/HCC) Expected: 09/22/2024 (Approximate), Expires: 09/22/2025 [facility] Work Phone: Comment on above: Expected: 09/22/2024 (Approximate), Expires: 09/22/2025 Start: 09-22-2024 End: 09-22-2024 Patient encounter procedure 09/22/2024 10:30 AM EST Office Visit [facility] [address] [place] [address] Marylou Larry PA [address] [place] [address] [facility] Start: 09-18-2024 End: 09-18-2024 Patient encounter procedure 09/18/2024 9:00 AM EST Office Visit [facility] [address] [place] [address] Mono Knowles MD [address] [place] [address] [facility] Start: 08-30-2024 End: 08-30-2024 Patient encounter procedure 08/30/2024 9:15 AM EST Office Visit [facility] [address] [place] [address] Mono Knowles MD [address] [place] [address] Arrived [facility] Comment on above: Arrived Start: 07-12-2024 End: 07-12-2024 Patient encounter procedure [facility] Comment on above: Arrived Start: 06-30-2024 End: 06-30-2024 Patient encounter procedure 06/30/2024 10:00 AM EDT Office Visit [facility] [address] [place] [address] Mono Knowles MD [address] [place] [address] [facility] Start: 06-26-2024 End: 06-26-2026 [...] [address] [place] [address] Mono Knowles MD [address] [place] [address] [facility] Start: 06-07-2024 End: 06-07-2024 Patient encounter procedure 06/07/2024 2:00 PM EDT Office Visit [facility] [address] [place] [address] Mono Knowles MD [address] [place] [address] [facility] Start: 05-25-2024 End: 05-25-2024 Patient encounter procedure 05/25/2024 11:00 AM EDT Office Visit [facility] [address] [place] [address] Mono Knowles MD [address] [place] [address] [facility] Start: 05-24-2024 End: 05-24-2024 Patient encounter procedure 05/24/2024 9:00 AM EDT Office Visit [facility] [address] [place] [address] Yvette Ray, ENGRAVER MACHINE [address] [place] [address] Arrived [facility] Comment on above: Arrived Start: 05-14-2024 Influenza vaccination [facility] Start: 05-10-2024 End: 05-10-2024 Patient encounter procedure 05/10/2024 10:15 AM EDT Office Visit [facility] [address] [facility] [address] [place] [address] Mono Knowles MD [address] [facility] [address] [place] [address] Arrived [facility] Comment on above: Arrived Start: 02-04-2024 Medicare Annual Well ness (AWV) Medicare Annual Wellness (AWV) [facility] Start: 01-03-2024 End: 01-03-2024 Patient encounter procedure 01/03/2024 9:30 AM EDT Office Visit [facility] [address] [facility] [address] [place] [address] Mono Knowles MD [address] [facility] [address] [place] [address] [facility] Start: 12-09-2023 End: 12-09-2023 Patient encounter procedure 12/09/2023 8:30 AM EDT Office Visit [facility] [address] [place] [address] Racheal Chi MD [address] [place], [place] [id number] Adrian Son MD [address] [place] [facility] [place] [phone] [facility] Start: 11-26-2023 End: 11-26-2023 Patient encounter procedure 11/26/2023 11:15 AM EDT Office Visit [facility] [address] [place] [address] Racheal Chi MD [address] [facility] [place] [address] [facility] Start: 11-17-2023 End: 11-17-2023 Patient encounter procedure 11/17/2023 11:15 AM EST Office Visit [facility] [address] [place] [address] Racheal Chi MD [address] [place] [address] Priyanka Carbajal MD [address] [place] [phone] [facility] Start: 10-27-2023 End: 10-27-2024 Comprehensive metabolic 2000 panel - Serum or Plasma Comprehensive metabolic panel Lab Routine Wellness examination 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) Expected: 10/27/2023 (Approximate), Expires: 10/27/2024 [facility] Comment on above: Expected: 10/27/2023 (Approximate), Expires: 10/27/2024 Start: 10-27-2023 End: 10-27-2024 Lipid 1996 panel - Serum or Plasma Lipid panel Lab Routine Wellness examination 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) Expected: 10/27/2023 (Approximate), Expires: 10/27/2024 [facility] Comment on above: Expected: 10/27/2023 (Approximate), Expires: 10/27/2024 Start: 10-27-2023 End: 10-27-2024 TSH W/REFLEX TO FT4 TSH W/REFLEX TO FT4 Lab Routine Wellness examination 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) Expected: 10/27/2023 (Approximate), Expires: 10/27/2024 [facility] Comment on above: Expected: 10/27/2023 (Approximate), Expires: 10/27/2024 Start: 10-27-2023 End: 10-27-2023 Patient encounter procedure 10/27/2023 9:15 AM EST Office Visit [facility] [address] [facility] [address] [place] [address] Mono Knowles MD [address] [facility] [address] [place] [address] Arrived [facility] Comment on above: Arrived Start: 10-22-2023 COVID-19 Vaccine ( season) COVID-19 Vaccine () [facility] Start: 10-19-2023 Adult BMI Screening Adult BMI Screen ing [facility] Start: 10-19-2023 Tobacco Screening Tobacco Screening [facility] Start: 09-30-2023 End: 09-30-2023 Patient encounter procedure 09/30/2023 9:30 AM EST Office Visit [facility] [address] [place] [address] Racheal Chi MD [address] [place] [address] [facility] Start: 05-14-2023 COVID-19 Vaccine ( season) COVID-19 Vaccine ( season) [facility] Start: 05-14-2023 Influenza vaccination Influenza Vacc ine [facility] Start: 11-27-2021 DTaP,Tdap and Td Vac cines (2 - Td or Tdap) DTaP,Tdap and Td Vaccines (2 - Td or Tdap) [facility] Start: 12-01-2011 Abdominal aortic ane urysm screening Abdominal Aortic Aneurysm (AAA) Screen [facility] Start: 12-01-2011 Fall Risk Screening Fall Risk Screen ing [facility] Start: 1964 Adult BMI Follow Up Plan Adult BMI F ollow Up Plan [facility] Start: 1958 [facility] Start: 1945 Medicare Annual Well ness Visit Medicare Annual Wellness Visit [facility] [employer] [facility] CBC W Auto Different ial panel - Blood CBC and differential Lab Routine Wellness examination 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 Electronically signed by Mono Knowles MD on December 06, 2024 documented in this encounter [facility] 12-04-2024 Miscellaneous Notes Called patient to remind them to bring their most current copy of their medication list with them to their appt. Unable to reach due to voice mail not set up. documented in this encounter [facility] 12-04-2024 Telephone encounter Note Called patient to remind them to bring their most current copy of their medication list with them to their appt. Unable to reach due to voice mail not set up. [facility] 11-16-2024 History of Present illness Narrative Images from the original note were not included. Reason for Appointment: EMG Patient: Hakeem Escobedo : 1945 EMG Computer: [employer] Referring Physician: Dr. Don Fenton EMG: [employer] materials development engineer: Malou Novak CMA Office Location: [place] Reason for EMG: c/o balance difficulty. Difficulty swallowing. Denies symptoms in the arms. No hx of DM, takes Eliquis. Comments: Procedure explained to the patient who expressed understanding. documented in this encounter [facility] 11-09-2024 Telephone encounter Note HYDROcodone-acetaminophen (Beulah) 10-325 MG tablet [facility] [place] [facility] 11-09-2024 Miscellaneous Notes HYDROcodone-acetaminophen (Beulah) 10-325 MG tablet [facility] in [place] documented in this encounter [facility] 11-08-2024 History of Present illness Narrative Images from the original note were not included. Chief complaint: Spinal stenosis and language disturbance Subjective Hakeem Escobedo, 78 y.o., male Patient presents today for a neurologic consult at the request of Dr. Knowles for CVA, spinal stenosis. He is accompanied by his life partner. Patient is a resident at [facility] in [place]. Patient has his stroke May 19. 2023. His partner states he had the covid [...] on stage 3a chronic kidney disease (HCC) ([facility]) 09/20/2020 Antral ulcer 2016 Anxiety Arthritis CAD (coronary artery disease) ([facility]) Colon polyp 2019 Confusion 09/16/2020 Constipation 09/28/2017 COVID-19 09/20/2020 Diverticulosis 2019 Gastritis 2019 Hiatal hernia 2019 History of gastric ulcer Hypertension ([facility]) Injury to penis 06/06/2021 Traumatic rhabdomyolysis ([facility]) 09/20/2020 Tubulovillous adenoma polyp of colon 2019 Past Surgical History: Procedure Laterality Date CATARACT EXTRACTION Right 01/2021 CERVICAL DISCECTOMY 08/16/2017 C4-C5 COLONOSCOPY 2010 COLONOSCOPY 01/27/2019 Colonoscopy & [place] COLONOSCOPY W/ POLYPECTOMY 08/2020 [place] (tubulovillous adenoma) [...] , wrist extensors , wrist flexor , loss prevention agent strength 5/5. LUE Strength deltoid , biceps , triceps , wrist extensors , wrist flexor , loss prevention agent strength 5/5. RLE Strength illopsoas, quadriceps, tibialis [...] reflex 2+ . Ferrari's sign negative. Coordination: [id number] testing and rapid alternating movements are normal Gait: Patient ambulates with a cane Review and summary of old records: Patient was seen in the emergency department at [place] in October 06, [address] [...] given to a polyradicular neuropathy such as Guillain-Standish syndrome. However, the patient's reflexes do seem [...] referral to tertiary care center such as [facility] for further evaluation treatment depending on [...] and return instructions documented in this encounter [facility] 11-02-2024 Telephone encounter Note Rx was sent. [facility] 11-02-2024 Miscellaneous Notes Rx was sent. Pt states that he is wheezing really bad. He needs something for his chest. They'd like it sent to [facility] [place] documented in this encounter [facility] 11-01-2024 Telephone encounter Note Pt states that he is wheezing really bad. He needs something for his chest. [facility] 10-31-2024 Telephone encounter Note [facility] for PT Eval; 3 attempt. [facility] 10-31-2024 Miscellaneous Notes [facility] for PT Eval; 3 attempt. Tried to contact to remind / confirm PT Eval today that is on its' 3rd attempt; 2/3 & 2/13 both were cx. It rang into voicemail and indicated not set up; unable to contact. documented in this encounter [facility] 10-31-2024 Telephone encounter Note Tried to contact to remind / confirm PT Eval today that is on its' 3rd attempt; 2/3 & 2/13 both were cx. It rang into voicemail and indicated not set up; unable to contact. [facility] 10-25-2024 Telephone encounter Note OARRS reviewed, Rx sent into patient's pharmacy. [facility] 10-25-2024 Miscellaneous Notes OARRS reviewed, Rx sent into patient's pharmacy. documented in this encounter [facility] 10-21-2024 Miscellaneous Notes OV 12/09/23 documented in this encounter [facility] 10-21-2024 Telephone encounter Note OV 12/09/23 [facility] 10-19-2024 Telephone encounter Note Contacted re: KATHINS for PT Eval and he rs 2/13 @ 11 w/ Kevin Renteria, PT. [facility] 10-19-2024 Miscellaneous Notes Contacted re: [facility] for PT Eval and he rs 2/13 @ 11 w/ Kevin Renteria, PT. Tried to contact re: KATHINS for his PT Eval; unable to lm re: no voicemail set-up. documented in this encounter [facility] 10-16-2024 Telephone encounter Note Tried to contact re: KATHINS for his PT Eval; unable to lm re: no voicemail set-up. [facility] 10-09-2024 History of Present illness Narrative Images from the original note were not included. HPI Follow-up Additional comments: Pain med Med Refill Additional comments: Hydrocodone--[facility] [place] observation follow up Additional comments: Pt was admitted to [facility] 10/06/24 for observation for leg weakness they discharged him home 10/07/24 no med changes they advised pt he may need an MRI discuss changing referrals Additional comments: Pt was referred to neuro through [facility] and speech therapy through [facility] he does not want to use any [facility] providers he would like new referrals sent to [facility] Last edited by Odalys Villagomez LPN on 10/09/2024 11:25 AM. Subjective Patient ID: Hakeem Escobedo is a 78 y.o. male who presents for Follow-up (Pain med), Dysphagia, Med Refill (Hydrocodone--[facility] [place]), observation follow up (Pt was admitted to [facility] 10/06/24 for observation for leg weakness they discharged him home 10/07/24 no med changes they advised pt he may need an MRI), and discuss changing referrals (Pt was referred to neuro through [facility] and speech therapy through [facility] he does not want to use any [facility] providers he would like new referrals sent to use [facility]). Subjective Patient here for follow-up of elevated [...] at bedtime 30 tablet 2 [DISCONTINUED] HYDROcodone-acetaminophen (Beulah) 10-325 MG tablet Take 1 tablet by [...] Cervical stenosis of spinal canal - HYDROcodone-acetaminophen (Beulah) 10-325 MG tablet; Take 1 tablet by mouth every 6 (six) hours if needed for severe pain Spinal stenosis of lumbar region with neurogenic claudication - Ambulatory referral to Physical Therapy; Future - Ambulatory referral to Neurology; Future Follow up in about 6 weeks (around 11/20/2024) for Routine F/U. documented in this encounter [facility] 09-22-2024 History of Present illness Narrative Images from the original note were not included. HPI ER Follow-up Additional comments: Went to er due to weakness 09/14/24 [place] [facility] Last edited by Summer Kay MA on 09/22/2024 7:29 AM. Subjective Patient ID: Hakeem Escobedo is a 78 y.o. male who presents for ER Follow-up (Went to er due to weakness 09/14/24 [place] [facility]). Pt went to Er due to weakness dizziness and being unbalanced , they did do labs, and DI testing Pt girlfriend stated he is needing labwork to see how his kidneys are doing , this was found at [facility] when they did CT they stated he [...] Flowsheet Row Patient Outreach from 09/19/2024 in [facility] with Karol Wednesday, VULCANIZING PRESS OPERATOR Hospital Information ED, Hospital or Intermediate Facility Discharge? ED Patient has been contacted within 1 week of being seen in the ED Yes Diagnosis generalized weakness Discharge Date 09/14/24 Discharged To: Home Setting Discharge Hospital [facility] Engagement Call Start Time 810 Admission Date [...] Advance Care Planning? No Call End Time 30 Current Outpatient Medications on File Prior to [...] mouth at bedtime 100 capsule 3 HYDROcodone-acetaminophen (Beulah) 10-325 MG tablet Take 1 tablet by [...] before bedtime. 60 tablet 3 [DISCONTINUED] HYDROcodone-acetaminophen (Beulah) 10-325 MG tablet Take 1 tablet by [...] on stage 3a chronic kidney disease (HCC) ([facility]) 09/20/2020 Antral ulcer 2016 Anxiety Arthritis CAD (coronary artery disease) ([facility]) Colon polyp 2019 Confusion 09/16/2020 Constipation 09/28/2017 [...] for this visit: IRINA (acute kidney injury) ([facility]) - Basic metabolic panel; Future Patient has [...] Appointment As Scheduled. documented in this encounter [facility] 09-14-2024 Note XR CHEST 1 VW CLINICAL INFORMATION: . weakness. TECHNIQUE/PROCEDURE: Chest radiograph, single view. COMPARISON: Prior chest radiographs, most recently 08/10/2024 FINDINGS: No tracheal deviation. Cardiac and mediastinal contours are normal. No pneumothorax or free air. No pleural effusion or focal consolidation. IMPRESSION: * No radiographic evidence of acute cardiopulmonary disease. Finalized by William Javier MD on 09/14/2024 12:14 PM [facility] 08-31-2024 Telephone encounter Note Rx sent. [facility] 08-31-2024 Miscellaneous Notes Rx sent. documented in this encounter [facility] 08-31-2024 History of Present illness Narrative Peace called this morning. Pt is wheezing and coughing and was up all night coughing. She is asking if you could send something in for pt to help with this wheezing and coughing issue. Jessica in [place]. He does not want to go to ER. She states pt talked with you about it at his appt the other day. documented in this encounter [facility] 08-30-2024 History of Present illness Narrative Images from the original note were not included. HPI Follow-up Additional comments: Recent hospitalization 08/10/24-08/12/24 at [facility] dx: CVA discharged home advised to stop ASA Med Refill Additional comments: Gabapentin--[facility] Results Additional comments: Both MRI's Last edited by Odalys Villagomez LPN on 08/30/2024 9:28 AM. Subjective Patient ID: Hakeem Escobedo is a 78 y.o. male who presents for Follow-up (Recent hospitalization 08/10/24-08/12/24 at [facility] dx: CVA discharged home advised to stop ASA), Med Refill (Gabapentin--[facility]), Dysphagia, and Results (Both MRI's). Flowsheet Row Patient Outreach from 08/15/2024 in [facility] with Karol Joyner LPN Hospital Information ED, Hospital or Intermediate Facility Discharge? Hospital Patient has been contacted within two business days of discharge Yes Diagnosis CVA Discharge Date 08/12/24 Discharged To: Home Setting Discharge Hospital [facility] Engagement Call Start Time 904 Admission Date [...] mouth at bedtime 100 capsule 3 HYDROcodone-acetaminophen (Beulah) 10-325 MG tablet Take 1 tablet by [...] INSTRUCTIONS 21 tablet 0 [DISCONTINUED] nystatin (Mycostatin) 247269 UNIT/ML suspension SWISH AND SWALLOW FIVE MILLILITERS [...] on stage 3a chronic kidney disease (HCC) ([facility]/HCC) 09/20/2020 Antral ulcer 2016 Anxiety Arthritis CAD (coronary artery disease) ([facility]) Colon polyp 2019 Confusion 09/16/2020 Constipation 09/28/2017 COVID-19 09/20/2020 Diverticulosis 2019 Gastritis 2019 Hiatal hernia 2019 History of gastric ulcer Hypertension ([facility]/HCC) Injury to penis 06/06/2021 Traumatic rhabdomyolysis ([facility]/HCC) 09/20/2020 Tubulovillous adenoma polyp of colon [...] for Routine F/U. documented in this encounter [facility] 08-24-2024 Miscellaneous Notes Patient was admitted under our service at [facility] the week of August 10. At [...] the recommendation for a repeat lab order. Fence Setter also attempted to contact the patient's PC Dr Mono Knowles at [phone] who is a provider at [facility]. The phone rang and then it stated the number that you are calling is not in service at this time . Emergency contact listed is his spouse and the same phone number is listed for her also. Thank you so much for doing this. documented in this encounter [facility] 08-24-2024 Telephone encounter Note Patient was admitted under our service at [facility] the week of August 10. At [...] follow up with his PCP for this. [facility] 08-24-2024 Telephone encounter Note Attempted to contact the patient, phone rang once and then is stated that voicemail box has not been set up . Letter has been composed and mailed to the patient informing him of his results and the recommendation for a repeat lab order. Fence Setter also attempted to contact the patient's PC Dr Mono Knowles at [phone] who is a provider at [facility]. The phone rang and then it stated the number that you are calling is not in service at this time . Emergency contact listed is his spouse and the same phone number is listed for her also. [facility] 08-24-2024 Telephone encounter Note Thank you so much for doing this. [facility] 08-17-2024 Telephone encounter Note OARRS reviewed, Rx sent into patient's pharmacy. [facility] 08-17-2024 Miscellaneous Notes OARRS reviewed, Rx sent into patient's pharmacy. HYDROcodone-acetaminophen (Beulah) 10-325 MG tablet pt's partner called concerned about the refill being sent in. Stated she spoke with Karol about it. Jessica Caputo documented in this encounter [facility] 08-17-2024 Telephone encounter Note HYDROcodone-acetaminophen (Beulah) 10-325 MG tablet pt's partner called concerned about the refill being sent in. Stated she spoke with Karol about it. Jessica Caputo [facility] 08-15-2024 Miscellaneous Notes Workqueue referral for [...] TO THEIR NEW PATIENT APPOINTMENT 1st attempt: Fence Setter attempted to contact patient and offer to schedule in with our clinic as we have received their new patient referral. Fence Setter received an automated message stating the following: patient's voicemail box has not been set up yet. 2nd attempt: Fence Setter attempted to contact patient once more and offer to schedule in with our clinic as we have received their new patient referral. Fence Setter received an automated message stating the following: patient's voicemail box has not been set up yet. documented in this encounter [facility] 08-15-2024 Telephone encounter Note Workqueue referral for [...] INSURANCE INFORMATION TO THEIR NEW PATIENT APPOINTMENT [facility] 08-15-2024 Telephone encounter Note 1st attempt: Fence Setter attempted to contact patient and offer to schedule in with our clinic as we have received their new patient referral. Fence Setter received an automated message stating the following: patient's voicemail box has not been set up yet. [facility] 08-15-2024 Telephone encounter Note 2nd attempt: Fence Setter attempted to contact patient once more and offer to schedule in with our clinic as we have received their new patient referral. Fence Setter received an automated message stating the following: patient's voicemail box has not been set up yet. [facility] 07-20-2024 Telephone encounter Note OARRS reviewed, Rx sent into patient's pharmacy. [facility] 07-20-2024 Miscellaneous Notes OARRS reviewed, Rx sent into patient's pharmacy. documented in this encounter [facility] 07-19-2024 Telephone encounter Note Is the medrol arnie ok to give pt [facility] 07-19-2024 Miscellaneous Notes Is the medrol arnie ok to give pt documented in this encounter [facility] 07-12-2024 Telephone encounter Note Celebrex sent [facility] 07-12-2024 Miscellaneous Notes Celebrex sent to [facility] [place] documented in this encounter [facility] 07-12-2024 History of Present illness Narrative Images from the original note were not included. HPI Results Additional comments: Stress test results Med Refill Additional comments: Gabapentin-- [facility]avint Last edited by Odalys Villagomez LPN on 07/12/2024 10:14 AM. Subjective Patient ID: Hakeem Escobedo is a 78 y.o. male who presents for Results (Stress test results) and Med Refill (Gabapentin-- jessica caputo). Subjective Patient here for follow-up of elevated [...] BY MOUTH DAILY 100 tablet 3 HYDROcodone-acetaminophen (Beulah) 10-325 MG tablet Take 1 tablet by [...] on stage 3a chronic kidney disease (HCC) ([facility]) 09/20/2020 Antral ulcer 2016 Anxiety Arthritis CAD (coronary artery disease) ([facility]) Colon polyp 2019 Confusion 09/16/2020 Constipation 09/28/2017 COVID-19 09/20/2020 Diverticulosis 2019 Gastritis 2019 Hiatal hernia 2019 History of gastric ulcer Hypertension ([facility]) Injury to penis 06/06/2021 Traumatic rhabdomyolysis (CMS/HCC) [...] for Routine F/U. documented in this encounter [facility] 06-29-2024 Telephone encounter Note ALPRAZolam (Xanax) 1 MG tablet to [facility] 06-29-2024 Miscellaneous Notes ALPRAZolam (Xanax) 1 MG tablet to [facility] documented in this encounter [facility] 06-26-2024 History of Present illness Narrative Images from the original note were not included. M HPI Follow-up Additional comments: Admitted [facility] 06/21/24 dx: syncope,suspected cva .hypotension discharged home 06/22/24 no med changes made Med Refill Additional comments: Gabapentin.meclizine-- [facility] Last edited by Odalys Villagomez LPN on 06/26/2024 9:36 AM. Subjective Patient ID: Hakeem Escobedo is a 78 y.o. male who presents for Follow-up (Admitted [facility] 06/21/24 dx: syncope,suspected cva .hypotension discharged home 06/22/24 no med changes made) and Med Refill (Gabapentin.meclizine-- [facility]). Flowsheet Row Patient Outreach from 06/23/2024 in [facility] with Karol WednesdayELAINE Hospital Information ED, Hospital or Intermediate Facility Discharge? Hospital Patient has been contacted within two business days of discharge Yes Discharge Date 06/22/24 Discharged To: Home Setting Discharge Hospital [facility] Engagement Call Start Time 1330 Admission [...] BY MOUTH DAILY 100 tablet 3 HYDROcodone-acetaminophen (Beulah) 10-325 MG tablet Take 1 tablet by [...] at bedtime. 90 capsule 3 [DISCONTINUED] HYDROcodone-acetaminophen (Beulah) 10-325 MG tablet Take 1 tablet by [...] 2016 Anxiety Arthritis CAD (coronary artery disease) ([facility]) Colon polyp 2019 Confusion 09/16/2020 Constipation 09/28/2017 COVID-19 09/20/2020 Diverticulosis 2019 Gastritis 2019 Hiatal hernia 2019 History of gastric ulcer Hypertension ([facility]/HCC) Injury to penis 06/06/2021 Traumatic rhabdomyolysis ([facility]/HCC) 09/20/2020 Tubulovillous adenoma polyp of colon [...] for Test/Lab Review. documented in this encounter [facility] 06-22-2024 Telephone encounter Note OARRS reviewed, Rx sent into patient's pharmacy. [facility] 06-22-2024 Miscellaneous Notes OARRS reviewed, Rx sent into patient's pharmacy. documented in this encounter [facility] 05-29-2024 Telephone encounter Note Patient is still having issues with his throat. He saw yvette last week and his throat is still is pain and it hurts to swallow. They wondered if something could be called into [facility] pharmacy. [facility] 05-29-2024 Miscellaneous Notes Patient is still having issues with his throat. He saw yvette last week and his throat is still is pain and it hurts to swallow. They wondered if something could be called into [facility] pharmacy. documented in this encounter [facility] 05-24-2024 History of Present illness Narrative [...] mouth at bedtime. 90 capsule 3 HYDROcodone-acetaminophen (Beulah) 10-325 MG tablet Take 1 tablet by [...] Cervical stenosis of spinal canal - HYDROcodone-acetaminophen (Beulah) 10-325 MG tablet; Take 1 tablet by [...] follow-ups on file. documented in this encounter [facility] 05-14-2024 History of Present illness Narrative Subjective Patient ID: Hakeem Escobedo is a 78 y.o. male who presents for Dysphagia Pt reports after being hospitalized for Covid May he developed difficulty walking and talking. Pt states he has has difficulty initiation his swallowing. Has trouble with liquids and solids. Hospitalized in Sep at [facility] with apparent CVA. Has not [...] esophagitis without hemorrhage 01/19/2023 Gout 01/19/2023 Hyperlipidemia (CMS/HCC) 12/26/2013 Hypocalcemia 01/19/2023 Lumbar herniated disc 01/19/2023 Obesity (BMI 30-39.9) 01/19/2023 Osteoarthrosis 10/10/2008 Other chronic pain 01/19/2023 Pain of right thigh 01/19/2023 Stage 3b chronic kidney disease (HCC) (CMS/HCC) 01/19/2023 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) 12/26/2013 Benign prostatic hyperplasia without lower urinary tract symptoms 06/06/2021 Chronic postoperative pain 09/21/2016 Duodenal diverticulum 09/18/2022 Personal history of other diseases of the digestive system 07/12/2020 History of colonic polyps 04/26/2019 History of stomach ulcers 09/18/2022 Stented coronary artery 09/22/2013 Cervical osteoarthritis 12/27/2014 Arthritis 09/18/2022 History of myocardial infarct at age greater than 60 years ([facility]) 02/03/2023 Right lumbar radiculopathy 07/26/2023 Irritable bowel syndrome with constipation 10/27/2023 Cerebrovascular accident (CVA) ([facility]) 08/10/2024 Dizziness 10/06/2024 Resolved Ambulatory Problems Diagnosis Date Noted Occlusive coronary artery disease ([facility]) 12/26/2013 Acute renal failure superimposed on stage 3a chronic kidney disease (HCC) ([facility]) 09/20/2020 Balanitis 06/06/2021 Chest pain 01/23/2017 Confusion 09/16/2020 Constipation 09/28/2017 COVID-19 09/20/2020 Diverticulosis 09/18/2022 HTN (hypertension) ([facility]) 09/22/2013 Injury to penis 06/06/2021 Myocardial infarction ([facility]) 09/13/2016 Traumatic rhabdomyolysis ([facility]) 09/20/2020 Unstable angina ([facility]) 09/22/2013 Spinal stenosis in cervical region 12/20/2018 Acid reflux 01/23/2017 Past Medical History: Diagnosis Date Antral ulcer 2016 CAD (coronary artery disease) ([facility]) Colon polyp 2018 History of gastric ulcer Hypertension ([facility]) Tubulovillous adenoma polyp of colon 2019 Past [...] mouth at bedtime 100 capsule 3 HYDROcodone-acetaminophen (Beulah) 10-325 MG tablet Take 1 tablet by [...] facilitate speech tx. documented in this encounter [facility] 05-10-2024 History of Present illness Narrative Images from the original note were not included. HPI Follow-up Additional comments: PAIN MED Chest Pain Additional comments: FOLLOW UP Last edited by Odalys Villagomez LPN on 05/10/2024 10:04 AM. Subjective Patient ID: Hakeem sEcobedo is a 78 y.o. male who presents [...] mouth at bedtime. 90 capsule 3 HYDROcodone-acetaminophen (Beulah) 10-325 MG tablet Take 1 tablet by [...] changes, Test/Lab Review. documented in this encounter [facility] 12-09-2023 History of Present illness Narrative Hakeem Escobedo Date of visit: 12/09/2023 Date of : 1945 Age: 78 y.o. Patient Active Problem List Diagnosis Acid reflux Chest pain Benign essential hypertension Hyperlipidemia 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 Confusion Traumatic rhabdomyolysis ([facility]-HCC) Acute renal failure superimposed on stage 3a chronic kidney disease ([facility]-HCC) COVID-19 Urologic disorders Benign prostatic hyperplasia without lower urinary tract symptoms Balanitis Injury to penis Phimosis Obesity (BMI 30-39.9) Anxiety Arthritis Atherosclerosis Colon polyp Diverticulosis Duodenal diverticulum Gastritis Hiatal hernia History of stomach ulcers Myocardial infarction ([facility]) Allergies Allergen Reactions Pneumovax-23 [Pneumococcal 23-Danay Ps [...] superimposed on stage 3a chronic kidney disease ([facility]) 09/20/2020 Anxiety Arthritis Atherosclerosis Colon polyp Coronary artery disease Diverticulosis Duodenal diverticulum Gastritis GERD (gastroesophageal reflux disease) Hiatal hernia History of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
[2025-06-27 10:29] LABS: Lactate/Lactic Acid 0.8 mmol/L (0.4-2.0)
[2025-06-27 10:35] LABS: Alanine Aminotransferase 45 U/L (16-63); Albumin Globulin Ratio 0.9; Albumin Level 3.6 g/dL (3.4-5.0); Alkaline Phosphatase 84 U/L (46-116); Anion Gap 14.5; Aspartate Amino Transferase 32 U/L (15-37); Blood Urea Nitrogen 21.0 mg/dL (7.0-18.0); Calcium 9.1 mg/dL (8.5-10.1); Carbon Dioxide 28.1 mmol/L (21.0-32.0); Chloride 107 mmol/L (98-107); Estimated GFR (African America 55 (>=60 mL/min/1.73m^2); Estimated GFR (Non-African Ame 46 (>=60 mL/min/1.73m^2); Globulin 3.9 g/dL; Glucose 98 mg/dL (74-106); Magnesium 1.9 mg/dL (1.8-2.4); Potassium 4.6 mmol/L (3.5-5.1); Sodium 145 mmol/L (136-145); Total Protein 7.5 g/dL (6.4-8.2)
[2025-06-27] MEDS: 0.9 % SODIUM CHLORIDE 1,000 ML 250 ML IV (11:02)
[2025-06-27 11:42] LABS: ABG PCO2 49.7 mmHg (35.0-45.0); Allen Test POSITIVE (POSITIVE); HCO3 ABG 27.0 mmol/L (22.0-26.0); O2 Mode ROOM AIR; Oxygen Saturation ABG 94.6 %; PO2 ABG 67.3 mmHg (80.0-100.0); Puncture Site RR
[2025-06-27] MEDS: IPRATROPIUM/ALBUTEROL SULFATE 3 ML AMPUL.NEB IH ×3 (12:12→22:23)
[2025-06-27] MEDS: METHYLPREDNISOLONE SOD SUCC PF 125 MG/2 ML VIAL IVP (12:37)
[2025-06-27] MEDS: AZITHROMYCIN 500 MG in 0.9 % SODIUM CHLORIDE 250 ML 250 MG IV (12:50)
--- OUTSIDE RECORDS SUMMARY | 2025-06-27 13:22 | XMS_ITS | CCD ---
Author Organization [facility] Care Team Providers Care Automotive Paint Technician Name Role Phone DR MONO KNOWLES Attending Unavailable ESHA, DR FOREMAN Primary Care Unavailable DR MONO KNOWLES Admitting Unavailable Mono Knowles MD Unavailable [phone] Mono Knowles MD Primary Care Provider Mono Knowles MD Primary Care Provider Mono Knowles MD Primary Care Provider [phone] Summer Velazquez RN Unavailable Mono Knowles MD Primary Care Provider [phone] Johnston WOMEN'S ACTIVITIES ADVISER, Ruth Unavailable Unavailable Johnston WOMEN'S ACTIVITIES ADVISER, Ruth Unavailable Johnston WOMEN'S ACTIVITIES ADVISER, Ruth Unavailable MONO KNOWLES Primary Care Unavailable [...] source) Pneumovax 23 Drug allergy (disorder) [facility] Rep[facility] (20 sources) Pneumococcal 20-Danay Conj Vacc Drug Intolerance 1 Swelling [facility] Healthcare Work Phone: (20 sources) Pneumococcal Vac Polyvalent Drug Allergy 1 [facility] (15 sources) Streptococcus pneumoniae type 1 capsular [...] [PNEUMOCOCCAL 23-DANAY PS VACCINE] Drug Allergy 1 [facility] Medications Current Medications Medication Drug Class(es) Dates Sig (Normalized) Sig (Original) acetaminophen 325 mg / HYDROcodone bitartrate 10 mg oral tablet (20 sources) Opioid Agonist Start: 04-27-2024 End: 07-15-2025 take 1 tablet by mouth every six hours for pain HYDROcodone-aceta minophen ([place]) 10-325 MG tablet Indications: Cervical stenosis of spinal canal Take 1 tablet by mouth every 6 (six) hours if needed for severe pain 120 tablet 06/15/2025 07/15/2025 Active Start: 10-06-2023 take 1 tablet by fatimah th every six hours for pain HYDROcodone-acetaminophen ([place]) 10-325 MG tablet Indications: Cervical stenosis of [...] 0.4 MG SL tablet Indications: Atherosclerosis of [place] coronary artery of [place] heart with stable angina pectoris Place 1 tablet (0.4 mg) under the tongue every 5 (five) minutes if needed for chest pain 90 tablet 12 11/20/2024 11/20/2025 Active Start: 10-27-2023 End: 10-26-2024 nitroglycerin (Nitrostat) 0. 4 MG SL tablet Indications: 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) Place 1 tablet (0.4 mg) under the tongue every 5 (five) minutes if needed for chest pain 90 tablet 12 10/27/2023 Active nystatin 138117 unt/ml oral suspension (4 sources) Polyene Antifungal Start: 08-22-2024 End: 08-30-2024 take 5 mL by mouth four times daily at bedtime nystatin (Mycostatin) 375880 UNIT/ML suspension Indications: Thrush SWISH AND SWALLOW FIVE MILLILITERS BY MOUTH FOUR TIMES A DAY FOR 14 DAYS (MORNING, NOON, EVENING, BEFORE BEDTIME) 280 mL 08/22/2024 08/30/2024 Discontinued (Therapy completed) Start: 06-01-2024 End: 06-15-2024 nystatin (Mycostatin) 671758 UNIT/ML suspension Indications: Thrush Take 5 mL [...] (Zocor) 40 MG tablet Indications: Atherosclerosis of [place] coronary artery of [place] heart without angina pectoris Take 1 tablet (40 mg) by mouth at bedtime 100 tablet 3 02/06/2025 Active Start: 02-08-2024 take 1 tablet by fatimah th at bedtime simvastatin (Zocor) 40 MG tablet Indications: Atherosclerosis of [place] coronary artery of [place] heart without angina pectoris (CMS/HCC) Take 1 tablet (40 mg) by mouth at bedtime 100 tablet 3 02/08/2024 Active Start: 10-06-2023 End: 01-14-2024 take 1 tablet by mouth at bedtime simvastatin (Zocor) 40 MG tablet Indications: Atherosclerosis of [place] coronary artery of [place] heart without angina pectoris (CMS/HCC) Take 1 [...] Coronary occlusion; Translations: [Atherosclerotic heart disease of [place] coronary artery without angina pectoris] Onset: 4 [...] Acute and unspecified renal failure (20 sources) Zdcpd-zw-yjazwoe renal failure; Translations: [Acute kidney failure, unspecified] [...] Coag (Bld) [Time] 29 s Normal 26-37 [facility] Comment on above: Performed By: #### C BCA, PINR, 14344-4, BMP, 93007-5 #### [facility] ([id number]) [address] [place] [address] #### HA1C #### [facility] ([id number]) [address] [facility], [address] [place] [address] BASIC METABOLIC PANELon - Anion gap [Moles/Vol] 9 mmol/L Normal 5-15 [facility] Comment on above: Performed By: #### C BCA, PINR, 58319-2, BMP, 95557-7 #### [facility] ([id number]) [address] [place] [address] #### HA1C #### [facility] ([id number]) [address] [facility], [address] [place] [address] Calcium [Mass/Vol] 8.5 mg/dL Normal 8.5-10.5 [facility] Comment on above: Performed By: #### C BCA, PINR, 55953-9, BMP, 22053-6 #### [facility] ([id number]) [address] [place] [address]228 #### HA1C #### [facility] ([id number]) [address] [facility], [address] [place] [address] Chloride [Moles/Vol] 107 mmol/L Normal 98-109 [facility] Comment on above: Performed By: #### C BCA, PINR, 21092-9, BMP, 02572-1 #### [facility] ([id number]) [address] [place] [address] #### HA1C #### [facility] ([id number]) [facility] [facility], [address] [place] [address] CO2 [Moles/Vol] 26 mmol/L Normal 22-32 [facility] Comment on above: Performed By: #### C BCA, PINR, 34587-0, BMP, 62599-8 #### [facility] ([id number]) [address] [place] [address] 49057 #### HA1C #### [facility] ([id number]) [address] [facility], [address] [place] [address] Creatinine [Mass/Vol] 1.52 mg/dL High 0.70-1.20 [facility] Comment on above: Result Comment: METH OD TRACEABLE TO IDMS STANDARD Performed By: #### C BCA, PINR, 53243-5, BMP, 83131-5 #### [facility] ([id number]) [address] [place] [address] 11782 #### HA1C #### [facility] ([id number]) [address] [facility] [address] [place] [address] GFR/1.73 sq M.predicted among non-blacks MDRD (S/P/Bld) [Vol rate/Area] 47 mL/min/{1.73_m2} Low >=60 [facility] Comment on above: Result Comment: eGFR not reported due to non-numeric value for Creatinine. Reported eGFR is based on the CKD-EPI 2020 equation that does not use a race coefficient. Performed By: #### C ALLY PINR, 87748-9, BMP, 14793-6 #### [facility] ([id number]) [address] [place] [address] 98784 #### HA1C #### [facility] ([id number]) [address] [facility], [address] [address] Glucose [Mass/Vol] 121 mg/dL High 65-99 [facility] Comment on above: Performed By: #### C ALLY PINR, 62672-5, BMP, 52427-8 #### [facility] ([id number]) [address] [place] [address] 61680 #### HA1C #### [facility] ([id number]) [address] [facility], [facility] [address] [place] [address] Potassium [Moles/Vol] 3.8 mmol/L Normal 3.5-5.0 [facility] Comment on above: Performed By: #### C ALLY, PINR, 27761-1, BMP, 93282-8 #### [facility] ([id number]) [address] [place] [address] 36184 #### HA1C #### [facility] ([id number]) [address] [facility], [facility] [address] [place] [address] Sodium [Moles/Vol] 142 mmol/L Normal 134-146 [facility] Comment on above: Performed By: #### C BCA, PINR, 03091-1, BMP, 34801-6 #### [facility] ([id number]) [address] [place] [address] 05347 #### HA1C #### [facility] ([id number]) [address] [place] [address] Urea nitrogen [Mass/Vol] 21 mg/dL Normal 5-27 [facility] Comment on above: Performed By: #### C BCA, PINR, 37800-8, BMP, 47679-2 #### [facility] ([id number]) [address] [place] [address] 838[address] #### HA1C #### [facility] ([id number]) [address] [place] [address] CBC WITH AUTO DIFFERENTIALon 05-24-2025 BASOPHILS ABSOLUTE COUNT (10*3/UL) BY AUTOMATED COUNT 0.0 10*3/uL Normal 0.0-0.2 [facility] Comment on above: Performed By: #### C BCA, PINR, 73122-6, BMP, 01768-1 #### [facility] ([id number]) [address] [place] [address] 08521 #### HA1C #### [facility] ([id number]) [address] [place] [address] BASOPHILS RELATIVE PERCENT BY AUTOMATED COUNT 0.5 % Normal [facility] Comment on above: Performed By: #### C BCA, PINR, 22949-5, BMP, 09929-6 #### [facility] ([id number]) [address] [place] [address] 76287 #### HA1C #### [facility] ([id number]) [address] [place] [address] CELLAVISION DIFFERENTIAL TYPE AUTOMATED DIFFERENTIAL Normal [facility] Comment on above: Performed By: #### C SHRUTHI CANALES, 60847-2, BMP, 02707-2 #### [facility] ([id number]) [address] [place] [address] 26216 #### HA1C #### [facility] ([id number]) [address] [facility], [address] [place] [address] Eosinophils (Bld) [#/Vol] 0.2 10*3/uL Normal 0.0-0.4 [facility] Comment on above: Performed By: #### C SHRUTHI CANALES, 10890-1, BMP, 95045-8 #### [facility] ([id number]) [address] [place] [address] 65[address] #### HA1C #### [facility] ([id number]) [address] [facility], [address] [place] [address] EOSINOPHILS RELATIVE PERCENT BY AUTOMATED COUNT 3.7 % Normal [facility] Comment on above: Performed By: #### C SHRUTHI CANALES, 14206-7, BMP, 08996-6 #### [facility] ([id number]) [address] [place] [address] 42553 #### HA1C #### [facility] ([id number]) [address] [facility], [address] [place] [address] Erythrocyte distribution width (RBC) [Ratio] 15.2 % High 11.5-15 [facility] Comment on above: Performed By: #### C SRHUTHI CANALES, 53586-1, BMP, 90990-8 #### [facility] ([id number]) [address] [place] [address] 51381 #### HA1C #### [facility] ([id number]) [address], [address] [place] [address] Hematocrit (Bld) [Volume fraction] 40.1 % Normal 39-50 [facility] Comment on above: Performed By: #### C BCA, PINR, 04260-0, BMP, 00142-2 #### [facility] ([id number]) [address] [place] [address] 75347 #### HA1C #### [facility] ([id number]) [address], [address] [place] [address] Hemoglobin (Bld) [Mass/Vol] 13.4 g/dL Normal 13-17 [facility] Comment on above: Performed By: #### C BCA, PINR, 84134-9, BMP, 67551-7 #### [facility] ([id number]) [address] [place] [address] 50044 #### HA1C #### [facility] ([id number]) [address], [address] [place] [address] LYMPHOCYTES ABSOLUTE COUNT (10*3/UL) BY AUTOMATED COUNT 2.0 10*3/uL Normal 1.0-3.5 [facility] Comment on above: Performed By: #### C BCA, PINR, 88325-9, BMP, 27346-5 #### [facility] ([id number]) [address] [place] [address] 95017 #### HA1C #### [facility] ([id number]) [address], [address] [place] [address] LYMPHOCYTES RELATIVE PERCENT BY AUTOMATED COUNT 32.6 % Normal [facility] Comment on above: Performed By: #### C BCA, PINR, 65995-4, BMP, 25732-6 #### [facility] ([id number]) [address] [place] [address] 63467 #### HA1C #### [facility] ([id number]) [address] [facility], [address] [place] [address] MCH (RBC) [Entitic mass] 29.0 pg Normal 27-34 [facility] Comment on above: Performed By: #### C BCA, PINR, 52339-7, BMP, 39639-8 #### [facility] ([id number]) [address] [place] [address] 45870 #### HA1C #### [facility] ([id number]) [address] [facility], [address] [place] [address] MCHC (RBC) [Mass/Vol] 33.4 g/dL Normal 32-36 [facility] Comment on above: Performed By: #### C BCA, PINR, 72520-8, BMP, 05712-7 #### [facility] ([id number]) [address] [place] [address] 07203 #### HA1C #### [facility] ([id number]) [address] [facility], [address] [place] [address] MCV (RBC) [Entitic vol] 87 fL Normal 80-100 [facility] Comment on above: Performed By: #### C ALLY, PINR, 31586-4, BMP, 75337-5 #### [facility] ([id number]) [address] [place] [address] 8[address]15 #### HA1C #### [facility] ([id number]) [address] [facility], [address] [place] [address] MONOCYTES ABSOLUTE COUNT (10*3/UL) BY AUTOMATED COUNT 0.5 10*3/uL Normal 0.0-0.9 [facility] Comment on above: Performed By: #### C BCA, PINR, 41604-9, BMP, 65639-5 #### [facility] ([id number]) [address] [place] [address] 94451 #### HA1C #### [facility] ([id number]) [address] [facility], [address] [place] [address] MONOCYTES RELATIVE PERCENT BY AUTOMATED COUNT 8.2 % Normal [facility] Comment on above: Performed By: #### C BCA, PINR, 53200-7, BMP, 31297-6 #### [facility] ([id number]) [address] [place] [address] 76860 #### HA1C #### [facility] ([id number]) [address] [facility], [address] [place] [address] NEUTROPHILS ABSOLUTE COUNT BY AUTOMATED COUNT 3.4 10*3/uL Normal 1.5-6.6 [facility] Comment on above: Performed By: #### C BCA, PINR, 14607-4, BMP, 96276-3 #### [facility] ([id number]) [address] [place] [address] 58101 #### HA1C #### [facility] ([id number]) [address] [place] [address], [address] [address] NEUTROPHILS RELATIVE PERCENT BY AUTOMATED COUNT 55.0 % Normal [facility] Comment on above: Performed By: #### C BCA, PINR, 70531-6, BMP, 49397-1 #### [facility] ([id number]) [address] [place] [address] 35547 #### HA1C #### [facility] ([id number]) [address] [facility], [address] [place] [address] Platelet mean volume (Bld) [Entitic vol] 7.1 fL Normal 7-12 [facility] Comment on above: Performed By: #### C BCA, PINR, 26067-2, BMP, 70307-3 #### [facility] ([id number]) [address] [place] [address] 66601 #### HA1C #### [facility] ([id number]) [address] [facility], [address] [place] [address] Platelets (Bld) [#/Vol] 172 10*3/uL Normal 150-450 [facility] Comment on above: Performed By: #### C BCA, PINR, 14000-2, BMP, 88101-9 #### [facility] ([id number]) [address] [place] [address] 07924 #### HA1C #### [facility] ([id number]) [address] [place] [address], [address] [address] RBC COUNT 4.63 X10E12/L Normal 4.1-5.7 [facility] Comment on above: Performed By: #### C BCA, PINR, 09728-5, BMP, 04017-4 #### [facility] ([id number]) [address] [place] [address] 70310 #### HA1C #### [facility] ([id number]) [address] [place] [address], [address] [address] WBC (Bld) [#/Vol] 6.2 10*3/uL Normal 4-11 [facility] Comment on above: Performed By: #### C BCA, PINR, 46679-2, BMP, 35565-8 #### [facility] ([id number]) [address] [place] [address] 33088 #### HA1C #### [facility] ([id number]) [address] [place] [address], [address] [address] D-DIMERon 05-24-2025 D DIMER 199 ng/mL Normal 1-255 [facility] Comment on above: Result Comment: Resu lts <255 ng/mL DDU: The presensence of a VTE can safely be excluded with a negative D-Dimer result and Wells score. A negative result doesn't exclude the possibility of DIC. The test should be repeated along with other diagnostic tests if the patient's symptoms persist or worsen. Performed By: #### C BCA, PINR, 37058-3, BMP, 24292-9 #### [facility] ([id number]) [address] [place] [address] 01143 #### HA1C #### [facility] ([id number]) [address] [place] [address] LACTATE W/ REFLEXon 05-24-20 25 LACTATE W/REFLEX 0.7 mmol/L Normal 0.4-2.0 [facility] Comment on above: Order Comment: Resul t did not trigger repeat Lactate,re-order if needed. Performed By: #### C BCA, PINR, 83002-5, BMP, 17172-6 #### [facility] ([id number]) [address] [place] [address] 71100 #### HA1C #### [facility] ([id number]) [address] [facility], [address] [place] [address] MAGNESIUMon 05-24-2025 Magnesium [Mass/Vol] 1.7 mg/dL Low 1.8-2.6 [facility] Comment on above: Performed By: #### C BCA, PINR, 76407-8, BMP, 24143-8 #### [facility] ([id number]) [address] [place] [address] 90225 #### HA1C #### [facility] ([id number]) [address] [facility], [address] [place] [address] PROTIME AND INRon 05-24-2025 INR 1.1 Normal 0.9-1.2 [facility] Comment on above: Performed By: #### C BCA, PINR, 27334-9, BMP, 77460-4 #### [facility] ([id number]) [address] [place] [address] #### HA1C #### [facility] ([id number]) [address] [facility], [address] [place] [address] PT Coag (PPP) [Time] 12.3 s Normal 9.8-13.2 [facility] Comment on above: Performed By: #### C BCA, PINR, 15498-6, BMP, 88812-9 #### [facility] ([id number]) [address] [place] [address] #### HA1C #### [facility] ([id number]) [address] [facility], [address] [place] [address] SARS/FLU A+B/RSV BY NAAT/MOL ECULAR (M4RT COLLECTION TUBE)on 05-24-2025 SARS/FLU A+B/RSV BY NAAT/MOLECULAR (M4RT COLLECTION TUBE) FLU A PCR Negative FLU B PCR Negative RSV BY PCR Negative SARS COV 2 BY PCR Not Detected Normal Not Detected [facility] Comment on above: Order Comment: The [...] operators who are performing tests using either Gene[employer]ent[employer] DX or Gene[employer]annado systems and is limited to laboratories that [...] resolved with specimen repeat.Fact Sheet for Healthcare Providers:https://www.fda.gov/media/196910/downloadFact Sheet for Patients:https://www.fda.gov/media/034803/download Performed By: #### C ALLY, PINR, 90755-8, BMP, 03255-6 #### [facility] ([id number]) [address] [place] [address] 13210 #### HA1C #### [facility] ([id number]) [address] [place] [address], [address] [place] [address] TROP I, HIGH SENSITIVITY 1 H OURon 05-24-2025 TROPONIN I, HIGH SENSITIVITY 5 ng/L Normal <21 [facility] Comment on above: Performed By: #### C BCA, PINR, 29601-4, BMP, 99322-5 #### [facility] ([id number]) [address] [place] [address] 26706 #### HA1C #### [facility] ([id number]) [address] [place] [address], [address] [place] [address] TROPONIN I, HIGH SENSITIVITY 0 HOURon 05-24-2025 TROPONIN I, HIGH SENSITIVITY 5 ng/L Normal <21 [facility] Comment on above: Performed By: #### C BCA, PINR, 63618-1, BMP, 77821-9 #### [facility] ([id number]) [address] [place] [address] 69412 #### HA1C #### [facility] ([id number]) [address] [facility], [address] [place] [address] XR CHEST 1 VWon 05-24-2025 XR CHEST [...] Caleb Martinez on 05/24/2025 8:43 AM Normal [facility] BASIC METABOLIC PANELon 05 Anion gap [Moles/Vol] 4 mmol/L Low 5-15 [facility] Comment on above: Performed By: #### C BCA, PINR, 51426-8, BMP, 73079-7 #### [facility] ([id number]) [address] [place] [address] 97508 #### HA1C #### [facility] ([id number]) [address] [facility], [address] [place] [address] Calcium [Mass/Vol] 8.0 mg/dL Low 8.5-10.5 [facility] Comment on above: Performed By: #### C BCA, PINR, 26164-6, BMP, 14881-4 #### [facility] ([id number]) [address] [place] [address] 42686 #### HA1C #### [facility] ([id number]) [address] [facility], [address] [place] [address] Chloride [Moles/Vol] 111 mmol/L High 98-109 [facility] Comment on above: Performed By: #### C BCA, PINR, 03005-5, BMP, 52387-5 #### [facility] ([id number]) [address] [place] [address]57 #### HA1C #### [facility] ([id number]) [address] [place] [address] CO2 [Moles/Vol] 23 mmol/L Normal 22-32 [facility] Comment on above: Performed By: #### C BCA, PINR, 82553-6, BMP, 11858-6 #### [facility] ([id number]) [address] [place] [address] 18899 #### HA1C #### [facility] ([id number]) [address] [place] [address] Creatinine [Mass/Vol] 1.69 mg/dL High 0.70-1.20 [facility] Comment on above: Result Comment: METH OD TRACEABLE TO IDMS STANDARD Performed By: #### C BCA, PINR, 37638-0, BMP, 04359-3 #### [facility] ([id number]) [address] [place] [address] 20047 #### HA1C #### [facility] ([id number]) [address] [place] [address] GFR/1.73 sq M.predicted among non-blacks MDRD (S/P/Bld) [Vol rate/Area] 41 mL/min/{1.73_m2} Low >=60 [facility] Comment on above: Result Comment: eGFR not reported due to non-numeric value for Creatinine. Reported eGFR is based on the CKD-EPI 202 equation that does not use a race coefficient. Performed By: #### C BCA, PINR, 67010-2, BMP, 66726-2 #### [facility] ([id number]) [address] [place] [address] #### HA1C #### [facility] ([id number]) [address] [place] [address] Glucose [Mass/Vol] 89 mg/dL Normal 65-99 [facility] Comment on above: Performed By: #### C BCA, PINR, 09242-2, BMP, 10818-7 #### [facility] ([id number]) [address] [place] [address] 39563 #### HA1C #### [facility] ([id number]) [address] [facility], [address] [place] [address] Potassium [Moles/Vol] 4.3 mmol/L Normal 3.5-5.0 [facility] Comment on above: Performed By: #### C BCA, PINR, 16790-6, BMP, 06409-4 #### [facility] ([id number]) [address] [place] [address] #### HA1C #### [facility] ([id number]) [address], [address] [place] [address] Sodium [Moles/Vol] 138 mmol/L Normal 134-146 [facility] Comment on above: Performed By: #### C BCA, PINR, 14480-5, BMP, 83291-8 #### [facility] ([id number]) [address] [place] [address] #### HA1C #### [facility] ([id number]) [address], [address] [place] [address] Urea nitrogen [Mass/Vol] 25 mg/dL Normal 5-27 [facility] Comment on above: Performed By: #### C BCA, PINR, 00289-2, BMP, 10163-2 #### [facility] ([id number]) [address] [place] [address] #### HA1C #### [facility] ([id number]) [address], [address] [place] [address] CBC WITH AUTO DIFFERENTIALon 01-22-2025 BASOPHILS ABSOLUTE COUNT (10*3/UL) BY AUTOMATED COUNT 0.0 10*3/uL Normal 0.0-0.2 [facility] Comment on above: Performed By: #### C BCA, PINR, 79955-6, BMP, 15579-5 #### [facility] ([id number]) [address] [place] [address] 32624 #### HA1C #### [facility] ([id number]) [address] [facility], [address] [place] [address] BASOPHILS RELATIVE PERCENT BY AUTOMATED COUNT 0.3 % Normal [facility] Comment on above: Performed By: #### C BCA, PINR, 60735-5, BMP, 95136-6 #### [facility] ([id number]) [address] [place] [address] 25164 #### HA1C #### [facility] ([id number]) [address] [facility], [address] [place] [address] CELLAVISION DIFFERENTIAL TYPE AUTOMATED DIFFERENTIAL Normal [facility] Comment on above: Performed By: #### C BCA, PINR, 23574-1, BMP, 09560-7 #### [facility] ([id number]) [address] [place] [address] 36542 #### HA1C #### [facility] ([id number]) [address], [address] [place] [address] Eosinophils (Bld) [#/Vol] 0.2 10*3/uL Normal 0.0-0.4 [facility] Comment on above: Performed By: #### C BCA, PINR, 05955-0, BMP, 55529-1 #### [facility] ([id number]) [address] [place] [address] 39168 #### HA1C #### [facility] ([id number]) [address], [address] [place] [address] EOSINOPHILS RELATIVE PERCENT BY AUTOMATED COUNT 2.9 % Normal [facility] Comment on above: Performed By: #### C BCA, PINR, 33840-3, BMP, 79676-0 #### [facility] ([id number]) [address] [place] [address] 44263 #### HA1C #### [facility] ([id number]) [address], [address] [place] [address] Erythrocyte distribution width (RBC) [Ratio] 14.3 % Normal 11.5-15 [facility] Comment on above: Performed By: #### C BCA, PINR, 03704-5, BMP, 07555-8 #### [facility] ([id number]) [address] [place] [address] 32017 #### HA1C #### [facility] ([id number]) [address], [address] [place] [address] Hematocrit (Bld) [Volume fraction] 39.7 % Normal 39-50 [facility] Comment on above: Performed By: #### C BCA, PINR, 14059-3, BMP, 21322-3 #### [facility] ([id number]) [address] [place] [address] 17565 #### HA1C #### [facility] ([id number]) [address], [address] [place] [address] Hemoglobin (Bld) [Mass/Vol] 13.4 g/dL Normal 13-17 [facility] Comment on above: Performed By: #### C BCA, PINR, 30071-6, BMP, 23877-5 #### [facility] ([id number]) [address] [place] [address] 91777 #### HA1C #### [facility] ([id number]) [address] [facility], [address] [place] [address] LYMPHOCYTES ABSOLUTE COUNT (10*3/UL) BY AUTOMATED COUNT 2.1 10*3/uL Normal 1.0-3.5 [facility] Comment on above: Performed By: #### C BCA, PINR, 56457-6, BMP, 93242-6 #### [facility] ([id number]) [address] [place] [address] 91114 #### HA1C #### [facility] ([id number]) [facility] [address] LYMPHOCYTES RELATIVE PERCENT BY AUTOMATED COUNT 32.7 % Normal [facility] Comment on above: Performed By: #### C BCA, PINR, 51597-3, BMP, 61238-2 #### [facility] ([id number]) [address] [place] [address] 03435 #### HA1C #### [facility] ([id number]) [facility] [address] [address] MCH (RBC) [Entitic mass] 29.3 pg Normal 27-34 [facility] Comment on above: Performed By: #### C BCA, PINR, 43313-7, BMP, 74258-4 #### [facility] ([id number]) [address] [place] [address] 77080 #### HA1C #### [facility] ([id number]) [address] [facility], [facility] [address] [place] [address] MCHC (RBC) [Mass/Vol] 33.8 g/dL Normal 32-36 [facility] Comment on above: Performed By: #### C BCA, PINR, 47918-2, BMP, 49172-9 #### [facility] ([id number]) [address] [place] [address] 66942 #### HA1C #### [facility] ([id number]) [address], [address] [place] [address] MCV (RBC) [Entitic vol] 87 fL Normal 80-100 [facility] Comment on above: Performed By: #### C BCA, PINR, 89966-6, BMP, 15252-1 #### [facility] ([id number]) [address] [place] [address] 48315 #### HA1C #### [facility] ([id number]) [address], [address] [place] [address] MONOCYTES ABSOLUTE COUNT (10*3/UL) BY AUTOMATED COUNT 0.5 10*3/uL Normal 0.0-0.9 [facility] Comment on above: Performed By: #### C BCA, PINR, 10905-0, BMP, 22141-3 #### [facility] ([id number]) [address] [place] [address] 73891 #### HA1C #### [facility] ([id number]) [address], [address] [place] [address] MONOCYTES RELATIVE PERCENT BY AUTOMATED COUNT 8.2 % Normal [facility] Comment on above: Performed By: #### C BCA, PINR, 74794-8, BMP, 93653-6 #### [facility] ([id number]) [address] [place] [address] 67468 #### HA1C #### [facility] ([id number]) [address], [address] [place] [address] NEUTROPHILS ABSOLUTE COUNT BY AUTOMATED COUNT 3.6 10*3/uL Normal 1.5-6.6 [facility] Comment on above: Performed By: #### C BCA, PINR, 80114-0, BMP, 45498-0 #### [facility] ([id number]) [address] [place] [address] 69122 #### HA1C #### [facility] ([id number]) [address] [facility], [address] [place] [address] NEUTROPHILS RELATIVE PERCENT BY AUTOMATED COUNT 55.9 % Normal [facility] Comment on above: Performed By: #### C ALLY, PINR, 08474-4, BMP, 88615-1 #### [facility] ([id number]) [address] [place] [address] 84724 #### HA1C #### [facility] ([id number]) [address] [place] [address], [address] [place] [address] Platelet mean volume (Bld) [Entitic vol] 7.5 fL Normal 7-12 [facility] Comment on above: Performed By: #### C ALLY, PINR, 72308-2, BMP, 76258-0 #### [facility] ([id number]) [address] [place] [address] 06909 #### HA1C #### [facility] ([id number]) [address] [place] [address], [address] [place] [address] Platelets (Bld) [#/Vol] 194 10*3/uL Normal 150-450 [facility] Comment on above: Performed By: #### Matthew CANALES, PINR, 21187-1, BMP, 48469-9 #### [facility] ([id number]) [address] [place] [address] 80274 #### HA1C #### [facility] ([id number]) [facility], [address] [place] [address] RBC COUNT 4.58 X10E12/L Normal 4.1-5.7 [facility] Comment on above: Performed By: #### Matthew CANALES, PINR, 59520-6, BMP, 32743-8 #### [facility] ([id number]) [address] [place] [address] 27286 #### HA1C #### [facility] ([id number]) [address], [address] [place] [address] WBC (Bld) [#/Vol] 6.5 10*3/uL Normal 4-11 [facility] Comment on above: Performed By: #### C BCA, PINR, 83163-1, BMP, 77538-4 #### [facility] ([id number]) [address] [place] [address] 47272 #### HA1C #### [facility] ([id number]) [address], [address] [place] [address] MAGNESIUMon 01-22-2025 Magnesium [Mass/Vol] 1.8 mg/dL Normal 1.8-2.6 [facility] Comment on above: Performed By: #### C BCA, PINR, 95262-3, BMP, 78227-5 #### [facility] ([id number]) [address] [place] [address] 13882 #### HA1C #### [facility] ([id number]) [address], [address] [place] [address] Laboratory - Chemistry and C hemistry - challengeon 12-07-2024 Free T3 [Mass/Vol] 3.2 pg/mL 2.3 - 4.2 pg/mL [facility] Free T4 [Mass/Vol] 1.1 ng/dL 0.8 - 1.8 ng/dL [facility] Prostate specific Ag [Mass/Vol] 0.32 ng/mL < OR = 4.00 [facility] Comment on above: The total PSA value from this assay system is standardized against the WHO standard. The test result will be approximately 20% lower when compared to the equimolar-standardized total PSA ([place]). Comparison of serial PSA results should be interpreted with this fact in mind. This test was performed using the Siemens chemiluminescent method. Values obtained from different assay methods cannot be used interchangeably. PSA levels, regardless of value, should not be interpreted as absolute evidence of the presence or absence of disease. TSH Qn 4.48 m[IU]/L [facility] are No Panel Informationon 12-07 Performing Organization Information Site ID: QPT Name: [employer] [facility] Address: [address] [place] [address] Director: Ariel Bermeo MD [facility] e PSA, TOTALon 12-07-2024 PSA, TOTAL 0.32 ng/mL Normal < OR = 4.00 [facility] Comment on above: Result Comment: The total PSA value from this assay system is standardized against the WHO standard. The test result will be approximately 20% lower when compared to the equimolar-standardized total PSA ([place]). Comparison of serial PSA results should be interpreted with this fact in mind. This test was performed using the Siemens chemiluminescent method. Values obtained from different assay methods cannot be used interchangeably. PSA levels, regardless of value, should not be interpreted as absolute evidence of the presence or absence of disease. Performed By: #### 8 66, 899, 30311, 5363 #### [facility] [place] [address] Laundry Machine Tender: Ariel Bermeo MD T3, 12-07-2024 Free T3 [Mass/Vol] 3.2 pg/mL Normal 2.3-4.2 [facility] Comment on above: Performed By: #### 8 66, 899, 67805, 5363 #### [facility] [address], [address] [place] [address] Laundry Machine Tender: Ariel Bermeo MD T4, 12-07-2024 Free T4 [Mass/Vol] 1.1 ng/dL Normal 0.8-1.8 [facility] Comment on above: Performed By: #### 8 66, 899, 24453, 5363 #### [facility] [address], [address] [place] [address] Laundry Machine Tender: Ariel Bermeo MD TSHon 12-07-2024 TSH Qn 4.48 m[IU]/L Normal 0.40-4.50 [facility] Comment on above: Performed By: #### 8 66, 899, 42983, 5363 #### [facility] [address], [address] [place] [address] Laundry Machine Tender: Ariel Bermeo MD EMG 2 Extremitieson 11-17-19 25 [facility] NVC 11-12 NervesOrdered By: Tyler Sanchez on 11-16-2024 [facility] Work Phone: CBC AND AUTO DIFFon 10-07-19 ABSOLUTE BASOPHIL 0.0 X10E9/L Normal 0.0-0.2 [facility] Comment on above: Performed By: #### C ALLY, PINR, 18262-3, BMP, 57447-0 #### [facility] ([id number]) [address] [place] [address] 34881 #### HA1C #### [facility] ([id number]) [address] [place] [address], [address] [place] [address] ABSOLUTE NEUTROPHIL 3.1 X10E9/L Normal 1.5-6.6 [facility] Comment on above: Performed By: #### C BCA, PINR, 40333-8, BMP, 67673-9 #### [facility] ([id number]) [address] [place] [address] 76398 #### HA1C #### [facility] ([id number]) [address] [place] [address], [address] [place] [address] Basophils/100 WBC (Bld) 0.4 % Normal [facility] Comment on above: Performed By: #### C BCA, PINR, 93897-2, BMP, 46421-5 #### [facility] ([id number]) [address] [place] [address] 17916 #### HA1C #### [facility] ([id number]) [address], [address] [place] [address] Eosinophils (Bld) [#/Vol] 0.1 10*3/uL Normal 0.0-0.4 [facility] Comment on above: Performed By: #### C BCA, PINR, 01216-1, BMP, 90792-4 #### [facility] ([id number]) [address] [place] [address] 05692 #### HA1C #### [facility] ([id number]) [address] [facility], [address] [place] [address] Eosinophils/100 WBC (Bld) 2.0 % Normal [facility] Comment on above: Performed By: #### C BCA, PINR, 33681-7, BMP, 98510-0 #### [facility] ([id number]) [address] [place] [address] 53922 #### HA1C #### [facility] ([id number]) [address] [facility], [address] [place] [address] Erythrocyte distribution width (RBC) [Ratio] 14.5 % Normal 11.5-15.0 [facility] Comment on above: Performed By: #### C BCA, PINR, 08328-8, BMP, 14484-7 #### [facility] ([id number]) [address] [place] [address] 46846 #### HA1C #### [facility] ([id number]) [address] [facility], [address] [place] [address] Hematocrit (Bld) [Volume fraction] 39.2 % Normal 39-49 [facility] Comment on above: Performed By: #### C BCA, PINR, 27568-7, BMP, 24237-6 #### [facility] ([id number]) [address] [place] [address] 15362 #### HA1C #### [facility] ([id number]) [address], [address] [place] [address] Hemoglobin (Bld) [Mass/Vol] 13.3 g/dL Normal 13.0-17.0 [facility] Comment on above: Performed By: #### C BCA, PINR, 59488-0, BMP, 89543-9 #### [facility] ([id number]) [address] [place] [address] 86615 #### HA1C #### [facility] ([id number]) [address] [facility], [address] [place] [address] Lymphocytes (Bld) [#/Vol] 2.0 10*3/uL Normal 1.0-3.5 [facility] Comment on above: Performed By: #### C BCA, PINR, 13984-7, BMP, 03026-8 #### [facility] ([id number]) [address] [place] [address] 23243 #### HA1C #### [facility] ([id number]) [address] [facility], [address] [place] [address] Lymphocytes/100 WBC (Bld) 34.9 % Normal [facility] Comment on above: Performed By: #### C BCA, PINR, 66611-4, BMP, 20779-4 #### [facility] ([id number]) [address] [place] [address] 92736 #### HA1C #### [facility] ([id number]) [address], [address] [place] [address] MCH (RBC) [Entitic mass] 29.8 pg Normal 27-34 [facility] Comment on above: Performed By: #### C BCA, PINR, 13279-6, BMP, 12901-0 #### [facility] ([id number]) [address] [place] [address] 11822 #### HA1C #### [facility] ([id number]) [address] [facility], [address] [place] [address] MCHC (RBC) [Mass/Vol] 33.9 g/dL Normal 32-36 [facility] Comment on above: Performed By: #### C BCA, PINR, 41446-1, BMP, 75818-5 #### [facility] ([id number]) [address] [place] [address] 62841 #### HA1C #### [facility] ([id number]) [address] [facility], [address] [place] [address] MCV (RBC) [Entitic vol] 88 fL Normal 80-100 [facility] Comment on above: Performed By: #### C BCA, PINR, 80972-6, BMP, 30043-6 #### [facility] ([id number]) [address] [place] [address] 41933 #### HA1C #### [facility] ([id number]) [address] [facility], [address] [place] [address] Monocytes (Bld) [#/Vol] 0.5 10*3/uL Normal 0-0.9 [facility] Comment on above: Performed By: #### C BCA, PINR, 19895-2, BMP, 87645-9 #### [facility] ([id number]) [address] [place] [address] 06379 #### HA1C #### [facility] ([id number]) [address] [facility], [address] [place] [address] Monocytes/100 WBC (Bld) 8.6 % Normal [facility] Comment on above: Performed By: #### C BCA, PINR, 91104-3, BMP, 14556-0 #### [facility] ([id number]) [address] [place] [address] 22684 #### HA1C #### [facility] ([id number]) [address] [facility], [address] [place] [address] Neutrophils/100 WBC (Bld) 54.1 % Normal [facility] Comment on above: Performed By: #### C ALLY, PINR, 63856-0, BMP, 06611-6 #### [facility] ([id number]) [address] [place] [address] 48815 #### HA1C #### [facility] ([id number]) [address] [facility], [address] [place] [address] Platelet mean volume (Bld) [Entitic vol] 8.0 fL Normal 7-12 [facility] Comment on above: Performed By: #### C ALLY, PINR, 17927-8, BMP, 00307-4 #### [facility] ([id number]) [address] [place] [address] 12668 #### HA1C #### [facility] ([id number]) [address] [facility], [address] [place] [address] Platelets (Bld) [#/Vol] 164 10*3/uL Normal 150-450 [facility] Comment on above: Performed By: #### C ALLY, PINR, 02098-8, BMP, 40263-7 #### [facility] ([id number]) [address] [place] [address] 42110 #### HA1C #### [facility] ([id number]) [address] [facility], [address] [place] [address] RBC COUNT 4.45 X10E12/L Normal 4.10-5.70 [facility] Comment on above: Performed By: #### Matthew BCA, PINR, 18330-8, BMP, 64493-3 #### [facility] ([id number]) [address] [place] [address] 35738 #### HA1C #### [facility] ([id number]) [address], [address] [place] [address] WBC (Bld) [#/Vol] 5.7 10*3/uL Normal 4.0-11.0 [facility] Comment on above: Performed By: #### C BCA, PINR, 18629-0, BMP, 68282-3 #### [facility] ([id number]) [address] [place] [address] 16453 #### HA1C #### [facility] ([id number]) [address], [address] [place] [address] COMPREHENSIVE METABOLIC PANE Reji 10-07-2024 Albumin [Mass/Vol] 3.6 g/dL Normal 3.2-5.3 [facility] Comment on above: Performed By: #### C BCA, PINR, 75715-3, BMP, 75858-7 #### [facility] ([id number]) [address] [place] [address] 06735 #### HA1C #### [facility] ([id number]) [address] [place] [address] ALP [Catalytic activity/Vol] 67 U/L Normal 39-130 [facility] Comment on above: Performed By: #### C BCA, PINR, 69507-2, BMP, 42296-8 #### [facility] ([id number]) [address] [place] [address] 73044 #### HA1C #### [facility] ([id number]) [address], [address] [place] [address] ALT [Catalytic activity/Vol] 32 U/L Normal 0-40 [facility] Comment on above: Performed By: #### C BCA, PINR, 21984-2, BMP, 66078-7 #### [facility] ([id number]) [address] [place] [address] 23967 #### HA1C #### [facility] ([id number]) [address], [address] [place] [address] Anion gap [Moles/Vol] 8 mmol/L Normal 5-15 [facility] Comment on above: Performed By: #### C BCA, PINR, 09515-1, BMP, 10228-8 #### [facility] ([id number]) [address] [place] [address] 25785 #### HA1C #### [facility] ([id number]) [address] [facility], [address] [place] [address] AST [Catalytic activity/Vol] 30 U/L Normal 0-41 [facility] Comment on above: Performed By: #### C BCA, PINR, 35156-7, BMP, 66571-1 #### [facility] ([id number]) [address] [place] [address] 46014 #### HA1C #### [facility] ([id number]) [address] [facility], [address] [place] [address] Bilirubin [Mass/Vol] 0.9 mg/dL Normal 0.3-1.2 [facility] Comment on above: Performed By: #### C BCA, PINR, 93648-2, BMP, 54507-6 #### [facility] ([id number]) [address] [place] [address] 22741 #### HA1C #### [facility] ([id number]) [address], [address] [place] [address] Calcium [Mass/Vol] 8.4 mg/dL Low 8.5-10.5 [facility] Comment on above: Performed By: #### C BCA, PINR, 51054-9, BMP, 48359-9 #### [facility] ([id number]) [address] [place] [address] 34280 #### HA1C #### [facility] ([id number]) [address], [address] [place] [address] Chloride [Moles/Vol] 108 mmol/L Normal 98-109 [facility] Comment on above: Performed By: #### C BCA, PINR, 65528-4, BMP, 99373-4 #### [facility] ([id number]) [address] [place] [address] 31288 #### HA1C #### [facility] ([id number]) [address], [address] [place] [address] CO2 [Moles/Vol] 25 mmol/L Normal 22-32 [facility] Comment on above: Performed By: #### C BCA, PINR, 33676-6, BMP, 25258-0 #### [facility] ([id number]) [address] [place] [address] 98670 #### HA1C #### [facility] ([id number]) [address] [place] [address] Creatinine [Mass/Vol] 1.30 mg/dL High 0.70-1.20 [facility] Comment on above: Result Comment: METH OD TRACEABLE TO IDMS STANDARD Performed By: #### C BCA, PINR, 01228-0, BMP, 18083-2 #### [facility] ([id number]) [address] [place] [address] 05251 #### HA1C #### [facility] ([id number]) [address] [place] [address] GFR/1.73 sq M.predicted among non-blacks MDRD (S/P/Bld) [Vol rate/Area] 57 mL/min/{1.73_m2} Low >59 [facility] Comment on above: Result Comment: Reported eGFR is based on the CKD-EPI 2020 equation that does not use a race coefficient. Performed By: #### C BCA, PINR, 90943-5, BMP, 36697-6 #### [facility] ([id number]) [address] [place] [address] 31212 #### HA1C #### [facility] ([id number]) [address] [place] [address] Glucose [Mass/Vol] 89 mg/dL Normal 65-99 [facility] Comment on above: Performed By: #### C BCA, PINR, 16827-8, BMP, 26742-8 #### [facility] ([id number]) [address] [place] [address] 06987 #### HA1C #### [facility] ([id number]) [address] [address], [address] [place] [address] Potassium [Moles/Vol] 3.9 mmol/L Normal 3.5-5.0 [facility] Comment on above: Performed By: #### C BCA, PINR, 63736-9, BMP, 28061-7 #### [facility] ([id number]) [address] [place] [address] #### HA1C #### [facility] ([id number]) [address], [address] [place] [address] Protein [Mass/Vol] 6.1 g/dL Normal 6.0-8.0 [facility] Comment on above: Performed By: #### C BCA, PINR, 99737-4, BMP, 82445-9 #### [facility] ([id number]) [address] [place] [address] #### HA1C #### [facility] ([id number]) [address], [address] [place] [address] Sodium [Moles/Vol] 141 mmol/L Normal 134-146 [facility] Comment on above: Performed By: #### C BCA, PINR, 50236-0, BMP, 20637-1 #### [facility] ([id number]) [address] [place] [address] #### HA1C #### [facility] ([id number]) [address] [place] [address], [address] [place] [address] Urea nitrogen [Mass/Vol] 20 mg/dL Normal 5-27 [facility] Comment on above: Performed By: #### C BCA, PINR, 07959-5, BMP, 60009-1 #### [facility] ([id number]) [address] [place] [address] #### HA1C #### [facility] ([id number]) [address] [place] [address], [address] [place] [address] MAGNESIUMon 10-07-2024 Magnesium [Mass/Vol] 1.8 mg/dL Normal 1.8-2.6 [facility] Comment on above: Performed By: #### C BCA, PINR, 73153-0, BMP, 23920-2 #### [facility] ([id number]) [address] [place] [address] #### HA1C #### [facility] ([id number]) [address] [place] [address], [address] [place], [place] [id number] CBC AND AUTO DIFFon 10-06-19 25 ABSOLUTE BASOPHIL 0.0 X10E9/L Normal 0.0-0.2 [facility] Comment on above: Performed By: #### C BCA, PINR, 36247-1, BMP, 61145-9 #### [facility] ([id number]) [address] [place] [address] 34808 #### HA1C #### [facility] ([id number]) [address] [facility], [address] [place] [address] ABSOLUTE NEUTROPHIL 3.7 X10E9/L Normal 1.5-6.6 [facility] Comment on above: Performed By: #### C BCA, PINR, 51606-6, BMP, 81263-8 #### [facility] ([id number]) [address] [place] [address] 02083 #### HA1C #### [facility] ([id number]) [address] [place] [address], [address] [place] [address] Basophils/100 WBC (Bld) 0.5 % Normal [facility] Comment on above: Performed By: #### C BCA, PINR, 71428-2, BMP, 16140-2 #### [facility] ([id number]) [address] [place] [address] 62681 #### HA1C #### [facility] ([id number]) [address] [place] [address], [address] [place] [address] Eosinophils (Bld) [#/Vol] 0.1 10*3/uL Normal 0.0-0.4 [facility] Comment on above: Performed By: #### C BCA, PINR, 31467-1, BMP, 34116-4 #### [facility] ([id number]) [address] [place] [address] 42918 #### HA1C #### [facility] ([id number]) [address] [place] [address], [address] [place] [address] Eosinophils/100 WBC (Bld) 1.5 % Normal [facility] Comment on above: Performed By: #### C BCA, PINR, 75794-5, BMP, 53300-6 #### [facility] ([id number]) [address] [place] [address] 67996 #### HA1C #### [facility] ([id number]) [address], [address] [place] [address] Erythrocyte distribution width (RBC) [Ratio] 14.7 % Normal 11.5-15.0 [facility] Comment on above: Performed By: #### C BCA, PINR, 17103-2, BMP, 41980-3 #### [facility] ([id number]) [address] [place] [address] 88081 #### HA1C #### [facility] ([id number]) [address], [address] [place] [address] Hematocrit (Bld) [Volume fraction] 41.1 % Normal 39-49 [facility] Comment on above: Performed By: #### C BCA, PINR, 74233-0, BMP, 58805-8 #### [facility] ([id number]) [address] [place] [address] 47673 #### HA1C #### [facility] ([id number]) [address], [address] [place] [address] Hemoglobin (Bld) [Mass/Vol] 13.6 g/dL Normal 13.0-17.0 [facility] Comment on above: Performed By: #### C BCA, PINR, 75441-6, BMP, 88986-8 #### [facility] ([id number]) [address] [place] [address] 02745 #### HA1C #### [facility] ([id number]) [address], [address] [place] [address] Lymphocytes (Bld) [#/Vol] 1.6 10*3/uL Normal 1.0-3.5 [facility] Comment on above: Performed By: #### C BCA, PINR, 31995-9, BMP, 47786-0 #### [facility] ([id number]) [address] [place] [address] 99237 #### HA1C #### [facility] ([id number]) [address], [address] [place] [address] Lymphocytes/100 WBC (Bld) 27.9 % Normal [facility] Comment on above: Performed By: #### C BCA, PINR, 14566-0, BMP, 94369-9 #### [facility] ([id number]) [address] [place] [address] 36780 #### HA1C #### [facility] ([id number]) [address], [address] [place] [address] MCH (RBC) [Entitic mass] 29.4 pg Normal 27-34 [facility] Comment on above: Performed By: #### C BCA, PINR, 01495-9, BMP, 51858-4 #### [facility] ([id number]) [address] [place] [address]309 #### HA1C #### [facility] ([id number]) [address], [address] [place] [address] MCHC (RBC) [Mass/Vol] 33.2 g/dL Normal 32-36 [facility] Comment on above: Performed By: #### C BCA, PINR, 27895-4, BMP, 06233-1 #### [facility] ([id number]) [address] [place] [address] 21617 #### HA1C #### [facility] ([id number]) [address], [address] [place] [address] MCV (RBC) [Entitic vol] 89 fL Normal 80-100 [facility] Comment on above: Performed By: #### C BCA, PINR, 93103-5, BMP, 42935-5 #### [facility] ([id number]) [address] [place] [address] 76376 #### HA1C #### [facility] ([id number]) [address], [address] [place] [address] Monocytes (Bld) [#/Vol] 0.3 10*3/uL Normal 0-0.9 [facility] Comment on above: Performed By: #### C BCA, PINR, 81135-8, BMP, 50535-2 #### [facility] ([id number]) [address] [place] [address] 66651 #### HA1C #### [facility] ([id number]) [address], [address] [place] [address] Monocytes/100 WBC (Bld) 6.1 % Normal [facility] Comment on above: Performed By: #### C BCA, PINR, 72503-8, BMP, 73123-8 #### [facility] ([id number]) [address] [place] [address] 18804 #### HA1C #### [facility] ([id number]) [address], [address] [place] [address] Neutrophils/100 WBC (Bld) 64.0 % Normal [facility] Comment on above: Performed By: #### C BCA, PINR, 11797-2, BMP, 11558-0 #### [facility] ([id number]) [address] [place] [address] 57261 #### HA1C #### [facility] ([id number]) [address], [address] [place] [address] Platelet mean volume (Bld) [Entitic vol] 7.8 fL Normal 7-12 [facility] Comment on above: Performed By: #### C BCA, PINR, 18250-7, BMP, 14966-6 #### [facility] ([id number]) [address] [place] [address] 91310 #### HA1C #### [facility] ([id number]) [address] [facility], [address] [place] [address] Platelets (Bld) [#/Vol] 184 10*3/uL Normal 150-450 [facility] Comment on above: Performed By: #### C BCA, PINR, 36838-5, BMP, 51528-4 #### [facility] ([id number]) [address] [place] [address] 26193 #### HA1C #### [facility] ([id number]) [address] [facility], [address] [place] [address] RBC COUNT 4.64 X10E12/L Normal 4.10-5.70 [facility] Comment on above: Performed By: #### C BCA, PINR, 27619-7, BMP, 89125-5 #### [facility] ([id number]) [address] [place] [address] 68832 #### HA1C #### [facility] ([id number]) [address] [facility], [address] [place] [address] WBC (Bld) [#/Vol] 5.7 10*3/uL Normal 4.0-11.0 [facility] Comment on above: Performed By: #### C BCA, PINR, 43280-7, BMP, 17821-7 #### [facility] ([id number]) [address] [place] [address] 06108 #### HA1C #### [facility] ([id number]) [address] [facility], [address] [place] [address] COMPREHENSIVE METABOLIC PANE Reji 10-06-2024 Albumin [Mass/Vol] 3.8 g/dL Normal 3.2-5.3 [facility] Comment on above: Performed By: #### C BCA, PINR, 55728-2, BMP, 52557-1 #### [facility] ([id number]) [address] [place] [address] 58498 #### HA1C #### [facility] ([id number]) [address] [facility], [address] [place] [address] ALP [Catalytic activity/Vol] 76 U/L Normal 39-130 [facility] Comment on above: Performed By: #### C BCA, PINR, 54249-1, BMP, 51873-7 #### [facility] ([id number]) [address] [place] [address] 72853 #### HA1C #### [facility] ([id number]) [address] [facility], [address] [place] [address] ALT [Catalytic activity/Vol] 27 U/L Normal 0-40 [facility] Comment on above: Performed By: #### C BCA, PINR, 26062-0, BMP, 19910-3 #### [facility] ([id number]) [address] [place] [address] 85592 #### HA1C #### [facility] ([id number]) [address] [facility], [address] [place] [address] Anion gap [Moles/Vol] 6 mmol/L Normal 5-15 [facility] Comment on above: Performed By: #### C BCA, PINR, 63066-9, BMP, 49101-2 #### [facility] ([id number]) [address] [place] [address] 98051 #### HA1C #### [facility] ([id number]) [address] [facility], [address] [place] [address] AST [Catalytic activity/Vol] 29 U/L Normal 0-41 [facility] Comment on above: Performed By: #### C BCA, PINR, 04635-8, BMP, 16358-7 #### [facility] ([id number]) [address] [place] [address] 85620 #### HA1C #### [facility] ([id number]) [address] [facility], [address] [place] [address] Bilirubin [Mass/Vol] 0.7 mg/dL Normal 0.3-1.2 [facility] Comment on above: Performed By: #### C BCA, PINR, 20820-9, BMP, 42195-6 #### [facility] ([id number]) [address] [place] [address] 38695 #### HA1C #### [facility] ([id number]) [address] [facility], [address] [place] [address] Calcium [Mass/Vol] 8.4 mg/dL Low 8.5-10.5 [facility] Comment on above: Performed By: #### C BCA, PINR, 18022-0, BMP, 07442-9 #### [facility] ([id number]) [address] [place] [address] 62217 #### HA1C #### [facility] ([id number]) [address] [facility], [address] [place] [address] Chloride [Moles/Vol] 109 mmol/L Normal 98-109 [facility] Comment on above: Performed By: #### C BCA, PINR, 11322-9, BMP, 60218-8 #### [facility] ([id number]) [address] [place] [address] 37325 #### HA1C #### [facility] ([id number]) [address], [address] [place] [address] CO2 [Moles/Vol] 24 mmol/L Normal 22-32 [facility] Comment on above: Performed By: #### C BCA, PINR, 70365-1, BMP, 69456-9 #### [facility] ([id number]) [address] [place] [address] 85272 #### HA1C #### [facility] ([id number]) [address] [facility], [address] [place] [address] Creatinine [Mass/Vol] 1.56 mg/dL High 0.70-1.20 [facility] Comment on above: Result Comment: METH OD TRACEABLE TO IDMS STANDARD Performed By: #### C BCA, PINR, 91017-1, BMP, 81112-3 #### [facility] ([id number]) [address] [place] [address] 42999 #### HA1C #### [facility] ([id number]) [address] [facility], [address] [place] [address] GFR/1.73 sq M.predicted among non-blacks MDRD (S/P/Bld) [Vol rate/Area] 45 mL/min/{1.73_m2} Low >59 [facility] Comment on above: Result Comment: Reported eGFR is based on the CKD-EPI 2020 equation that does not use a race coefficient. Performed By: #### C BCA, PINR, 26472-4, BMP, 05995-4 #### [facility] ([id number]) [address] [place] [address] 75046 #### HA1C #### [facility] ([id number]) [address], [address] [place] [address] Glucose [Mass/Vol] 174 mg/dL High 65-99 [facility] Comment on above: Performed By: #### C BCA, PINR, 05539-1, BMP, 45508-8 #### [facility] ([id number]) [address] [place] [address] 93957 #### HA1C #### [facility] ([id number]) [address], [address] [place] [address] Potassium [Moles/Vol] 3.7 mmol/L Normal 3.5-5.0 [facility] Comment on above: Performed By: #### C BCA, PINR, 64278-0, BMP, 24967-8 #### [facility] ([id number]) [address] [place] [address] 83387 #### HA1C #### [facility] ([id number]) [address], [address] [place] [address] Protein [Mass/Vol] 6.5 g/dL Normal 6.0-8.0 [facility] Comment on above: Performed By: #### C BCA, PINR, 39230-0, BMP, 28112-0 #### [facility] ([id number]) [address] [place] [address] 54416 #### HA1C #### [facility] ([id number]) [address], [address] [place] [address] Sodium [Moles/Vol] 139 mmol/L Normal 134-146 [facility] Comment on above: Performed By: #### C BCA, PINR, 88155-0, BMP, 97603-7 #### [facility] ([id number]) [address] [place] [address] 64084 #### HA1C #### [facility] ([id number]) [address], [address] [place] [address] Urea nitrogen [Mass/Vol] 20 mg/dL Normal 5-27 [facility] Comment on above: Performed By: #### C BCA, PINR, 89326-8, BMP, 99883-9 #### [facility] ([id number]) [address] [place] [address] 27741 #### HA1C #### [facility] ([id number]) [address], [address] [place] [address] CT BRAIN WO CONT STROKE ALER Ton [...] Tejada MD on 10/06/2024 12:47 PM Normal [facility] Glucose Glucometer (BldC) [M ass/Vol]on 10-06-2024 Glucose [Mass/Vol] 73 mg/dL Normal 65-99 [facility] Glucose [Mass/Vol] 192 mg/dL High 65-99 [facility] LIPASEon 10-06-2024 Lipase [Catalytic activity/Vol] 29 U/L Normal 17-40 [facility] Comment on above: Performed By: #### C BCA, PINR, 09806-4, BMP, 43965-7 #### [facility] ([id number]) [address] [place] [address] 31713 #### HA1C #### [facility] ([id number]) [address], [address] [place] [address] Natriuretic peptide B [Mass/ Vol]on 10-06-2024 Natriuretic peptide B (Bld) [Mass/Vol] 26 pg/mL Normal <100.0 [facility] Comment on above: Performed By: #### C BCA, PINR, 81304-6, BMP, 61816-4 #### [facility] ([id number]) [address] [facility], [place] [address] #### HA1C #### [facility] ([id number]) [address] [place] [address], [address] [place] [address] SARS/FLU A+B/RSV by NAAT/Mol ecularon 10-06-2024 SARS/FLU [...] operators who are performing tests using either [employer] or [employer] systems and is limited to laboratories that [...] repeat. Fact Sheet for Healthcare Providers: https://www.fda.gov/m edia/972224/download Fact Sheet for Patients: https://www.fda.gov/m edia/887113/download Normal [facility] Comment on above: Performed By: #### C BCA, PINR, 06818-9, BMP, 97983-4 #### [facility] ([id number]) [address] [place] [address] 86599 #### HA1C #### [facility] ([id number]) [address] [place] [address], [address] [address] THYROID PROFILEon 10-06-2024 Free T4 [Mass/Vol] 0.77 ng/dL Normal 0.61-1.60 [facility] Comment on above: Performed By: #### C BCA, PINR, 28594-8, BMP, 36244-9 #### [facility] ([id number]) [address] [place] [address] 65270 #### HA1C #### [facility] ([id number]) [address] [place] [address], [address] [address] TSH 4.84 uIU/mL High 0.49-4.67 [facility] Comment on above: Performed By: #### C BCA, PINR, 45241-3, BMP, 65100-7 #### [facility] ([id number]) [address] [place] [address] 15661 #### HA1C #### [facility] ([id number]) [address] [place] [address], [address] [address] Troponin I.cardiac High sens itivity method [Mass/Vol]on 10-06-2024 1 HOUR TROP I, HIGH SENSITIVITY 4 ng/L Normal <21 [facility] Comment on above: Performed By: #### C BCA, PINR, 68061-4, BMP, 34566-0 #### [facility] ([id number]) [address] [place] [address] #### HA1C #### [facility] ([id number]) [address], [address] [place] [address] TROPONIN I, HIGH SENSITIVITY 4 ng/L Normal <21 [facility] Comment on above: Performed By: #### C BCA, PINR, 73050-1, BMP, 92339-7 #### [facility] ([id number]) [address] [place] [address] 93804 #### HA1C #### [facility] ([id number]) [address], [address] [place] [address] VITAMIN B12on 10-06-2024 Cobalamin (Vitamin B12) [Mass/Vol] 180 pg/mL Normal 180-914 [facility] Comment on above: Performed By: #### C BCA, PINR, 28424-4, BMP, 23329-6 #### [facility] ([id number]) [address] [place] [address] 53818 #### HA1C #### [facility] ([id number]) [address], [address] [place] [address] aPTT Coag (PPP) [Time]on aPTT Coag (Bld) [Time] 34 s Normal 26-37 [facility] Comment on above: Result Comment: NEW REFERENCE RANGE Performed By: #### C BCA, PINR, 64742-6, BMP, 89283-3 #### [facility] ([id number]) [address] [place] [address] 58356 #### HA1C #### [facility] ([id number]) [address], [address] [place] [address] BASIC METABOLIC PANELon 09-13 Calcium [Mass/Vol] 8.4 mg/dL Low 8.6-10.3 [facility] Comment on above: Order Comment: FASTI NG:YES FASTING: YES Performed By: #### 1 0165 #### [facility] [address] [place], [place] [id number] Laundry Machine Tender: Casi Dinh Chloride [Moles/Vol] 109 mmol/L Normal 98-110 [facility] Comment on above: Order Comment: FASTI NG:YES FASTING: YES Performed By: #### 1 0165 #### [facility] [address] [place], [place] [id number] Laundry Machine Tender: Casi Dinh CO2 [Moles/Vol] 30 mmol/L Normal 20-32 [facility] Comment on above: Order Comment: FASTI NG:YES FASTING: YES Performed By: #### 1 0165 #### [facility] [address] [place] [address] Laundry Machine Tender: Casi Dinh Creatinine [Mass/Vol] 1.56 mg/dL High 0.70-1.28 [facility] Comment on above: Order Comment: FASTI NG:YES FASTING: YES Performed By: #### 1 0165 #### [facility] [address] [place], [place] [address] Laundry Machine Tender: Casi Dinh GFR/1.73 sq M.predicted among non-blacks MDRD (S/P/Bld) [Vol rate/Area] 45 mL/min/{1.73_m2} Low > OR = 60 [facility] Comment on above: Order Comment: FASTI NG:YES FASTING: YES Performed By: #### 1 0165 #### [facility] [address] [place], [place] [id number] Laundry Machine Tender: Casi Dinh Glucose [Mass/Vol] 83 mg/dL Normal 65-99 [facility] Comment on above: Order Comment: FASTI NG:YES FASTING: YES Result Comment: Fasting reference interval Performed By: #### 1 0165 #### [facility] [address] [place], [place] [id number] Laundry Machine Tender: Casi Dinh Potassium [Moles/Vol] 4.0 mmol/L Normal 3.5-5.3 [facility] Comment on above: Order Comment: FASTI NG:YES FASTING: YES Performed By: #### 1 0165 #### [facility] [address] [place] [phone] Laundry Machine Tender: Casi R Flatangela Sodium [Moles/Vol] 144 mmol/L Normal 135-146 [facility] Comment on above: Order Comment: FASTI NG:YES FASTING: YES Performed By: #### 1 0165 #### [facility] [address] [place] [phone] Laundry Machine Tender: Casi Laura Flati Urea nitrogen [Mass/Vol] 19 mg/dL Normal 7-25 [facility] Comment on above: Order Comment: FASTI NG:YES FASTING: YES Performed By: #### 1 0165 #### [facility] [address] [place] [phone] Laundry Machine Tender: Casi Laura Fabrizio Urea nitrogen/Creatinine [Mass ratio] 12 mg/mg Normal 6-22 [facility] Comment on above: Order Comment: FASTI NG:YES FASTING: YES Performed By: #### 1 0165 #### [facility] [address] [place] [phone] Laundry Machine Tender: Casi Laura Dinh CBC AND AUTO DIFFon 09-14-19 25 ABSOLUTE BASOPHIL 0.0 X10E9/L Normal 0.0-0.2 [facility] Comment on above: Performed By: #### C ALLY, PINR, 78151-8, BMP, 97078-0 #### [facility] ([id number]) [address] [place] [address], [place] [address] #### HA1C #### [facility] ([id number]) [address] [facility], [address] [place] [address] ABSOLUTE NEUTROPHIL 4.5 X10E9/L Normal 1.5-6.6 [facility] Comment on above: Performed By: #### C BCA, PINR, 19329-8, BMP, 88948-4 #### [facility] ([id number]) [address] [place] [address] 99377 #### HA1C #### [facility] ([id number]) [address] [place] [address] Basophils/100 WBC (Bld) 0.6 % Normal [facility] Comment on above: Performed By: #### C BCA, PINR, 25582-3, BMP, 53144-2 #### [facility] ([id number]) [address] [place] [address] 13718 #### HA1C #### [facility] ([id number]) [address] [place] [address] Eosinophils (Bld) [#/Vol] 0.2 10*3/uL Normal 0.0-0.4 [facility] Comment on above: Performed By: #### C BCA, PINR, 39131-1, BMP, 06523-5 #### [facility] ([id number]) [address] [place] [address] 87695 #### HA1C #### [facility] ([id number]) [address] [place] [address] Eosinophils/100 WBC (Bld) 2.6 % Normal [facility] Comment on above: Performed By: #### C BCA, PINR, 16784-6, BMP, 23690-4 #### [facility] ([id number]) [address] [place] [address] 28452 #### HA1C #### [facility] ([id number]) [address] [place] [address] Erythrocyte distribution width (RBC) [Ratio] 14.5 % Normal 11.5-15.0 [facility] Comment on above: Performed By: #### C BCA, PINR, 56191-4, BMP, 66711-4 #### [facility] ([id number]) [address] [place] [address] #### HA1C #### [facility] ([id number]) [address] [place] [address] Hematocrit (Bld) [Volume fraction] 43.2 % Normal 39-49 [facility] Comment on above: Performed By: #### C BCA, PINR, 69314-7, BMP, 83826-9 #### [facility] ([id number]) [address] [place] [address] #### HA1C #### [facility] ([id number]) [address], [address] [place] [address] Hemoglobin (Bld) [Mass/Vol] 14.2 g/dL Normal 13.0-17.0 [facility] Comment on above: Performed By: #### C BCA, PINR, 24473-5, BMP, 62151-6 #### [facility] ([id number]) [address] [place] [address] #### HA1C #### [facility] ([id number]) [address], [address] [place] [address] Lymphocytes (Bld) [#/Vol] 2.1 10*3/uL Normal 1.0-3.5 [facility] Comment on above: Performed By: #### C BCA, PINR, 83138-7, BMP, 73259-3 #### [facility] ([id number]) [address] [place] [address] #### HA1C #### [facility] ([id number]) [address], [address] [place] [address] Lymphocytes/100 WBC (Bld) 28.3 % Normal [facility] Comment on above: Performed By: #### C BCA, PINR, 66611-0, BMP, 43760-1 #### [facility] ([id number]) [address] [place] [address] #### HA1C #### [facility] ([id number]) [address], [address] [place] [address] MCH (RBC) [Entitic mass] 29.1 pg Normal 27-34 [facility] Comment on above: Performed By: #### C BCA, PINR, 02074-5, BMP, 81006-5 #### [facility] ([id number]) [address] [place] [address] #### HA1C #### [facility] ([id number]) [address], [address] [place] [address] MCHC (RBC) [Mass/Vol] 32.8 g/dL Normal 32-36 [facility] Comment on above: Performed By: #### C BCA, PINR, 15923-0, BMP, 34103-0 #### [facility] ([id number]) [address] [place] [address] #### HA1C #### [facility] ([id number]) [address], [address] [place] [address] MCV (RBC) [Entitic vol] 89 fL Normal 80-100 [facility] Comment on above: Performed By: #### C BCA, PINR, 39788-5, BMP, 61950-6 #### [facility] ([id number]) [address] [place] [address] 38735 #### HA1C #### [facility] ([id number]) [address], [address] [place] [address] Monocytes (Bld) [#/Vol] 0.5 10*3/uL Normal 0-0.9 [facility] Comment on above: Performed By: #### C BCA, PINR, 91188-9, BMP, 49148-6 #### [facility] ([id number]) [address] [place] [address] 01512 #### HA1C #### [facility] ([id number]) [address], [address] [place] [address] Monocytes/100 WBC (Bld) 6.7 % Normal [facility] Comment on above: Performed By: #### C ALLY, PINR, 34369-4, BMP, 82292-7 #### [facility] ([id number]) [address] [place] [address] 77120 #### HA1C #### [facility] ([id number]) [address], [address] [place] [address] Neutrophils/100 WBC (Bld) 61.8 % Normal [facility] Comment on above: Performed By: #### C ALLY, PINR, 74661-8, BMP, 94489-3 #### [facility] ([id number]) [address] [place] [address] 60583 #### HA1C #### [facility] ([id number]) [address], [address] [place] [address] Platelet mean volume (Bld) [Entitic vol] 8.2 fL Normal 7-12 [facility] Comment on above: Performed By: #### C BCA, PINR, 30794-6, BMP, 33795-6 #### [facility] ([id number]) [address] [place] [address] 79935 #### HA1C #### [facility] ([id number]) [address], [address] [place] [address] Platelets (Bld) [#/Vol] 150 10*3/uL Normal 150-450 [facility] Comment on above: Performed By: #### C BCA, PINR, 95811-0, BMP, 61113-6 #### [facility] ([id number]) [address] [place] [address] 49216 #### HA1C #### [facility] ([id number]) [address] [place] [address], [address] [place] [address] RBC COUNT 4.88 X10E12/L Normal 4.10-5.70 [facility] Comment on above: Performed By: #### C BCA, PINR, 78844-7, BMP, 01886-0 #### [facility] ([id number]) [address] [place] [address] 85216 #### HA1C #### [facility] ([id number]) [address] [place] [address], [address] [place] [address] WBC (Bld) [#/Vol] 7.3 10*3/uL Normal 4.0-11.0 [facility] Comment on above: Performed By: #### C BCA, PINR, 10663-0, BMP, 46936-1 #### [facility] ([id number]) [address] [place] [address] 86012 #### HA1C #### [facility] ([id number]) [address] [place] [address], [address] [place] [address] COMPREHENSIVE METABOLIC PANE Reji 09-14-2024 Albumin [Mass/Vol] 3.8 g/dL Normal 3.2-5.3 [facility] Comment on above: Performed By: #### C BCA, PINR, 79916-9, BMP, 08873-4 #### [facility] ([id number]) [address] [place] [address] 49067 #### HA1C #### [facility] ([id number]) [address] [facility], [address] [place] [address] ALP [Catalytic activity/Vol] 77 U/L Normal 39-130 [facility] Comment on above: Performed By: #### C BCA, PINR, 45628-2, BMP, 15063-7 #### [facility] ([id number]) [address] [place] [address] 67650 #### HA1C #### [facility] ([id number]) [address] [facility], [address] [place] [address] ALT [Catalytic activity/Vol] 37 U/L Normal 0-40 [facility] Comment on above: Performed By: #### C BCA, PINR, 37608-5, BMP, 44778-1 #### [facility] ([id number]) [address] [place] [address] 14672 #### HA1C #### [facility] ([id number]) [address] [place] [address], [address] [place] [address] Anion gap [Moles/Vol] 6 mmol/L Normal 5-15 [facility] Comment on above: Performed By: #### C BCA, PINR, 36384-7, BMP, 69531-3 #### [facility] ([id number]) [address] [place] [address] 82577 #### HA1C #### [facility] ([id number]) [address] [place] [address], [address] [place] [address] AST [Catalytic activity/Vol] 30 U/L Normal 0-41 [facility] Comment on above: Performed By: #### C BCA, PINR, 22862-4, BMP, 60483-5 #### [facility] ([id number]) [address] [place] [address] 90666 #### HA1C #### [facility] ([id number]) [address], [address] [place] [address] Bilirubin [Mass/Vol] 1.0 mg/dL Normal 0.3-1.2 [facility] Comment on above: Performed By: #### C BCA, PINR, 75552-6, BMP, 19431-3 #### [facility] ([id number]) [address] [place] [address] 85016 #### HA1C #### [facility] ([id number]) [address], [address] [place] [address] Calcium [Mass/Vol] 8.6 mg/dL Normal 8.5-10.5 [facility] Comment on above: Performed By: #### C BCA, PINR, 18954-8, BMP, 24696-4 #### [facility] ([id number]) [address] [place] [address] 59516 #### HA1C #### [facility] ([id number]) [address], [address] [place] [address] Chloride [Moles/Vol] 108 mmol/L Normal 98-109 [facility] Comment on above: Performed By: #### C BCA, PINR, 24242-2, BMP, 41004-2 #### [facility] ([id number]) [address] [place] [address] 39400 #### HA1C #### [facility] ([id number]) [address], [address] [place] [address] CO2 [Moles/Vol] 22 mmol/L Normal 22-32 [facility] Comment on above: Performed By: #### C BCA, PINR, 99018-0, BMP, 44395-4 #### [facility] ([id number]) [address] [place] [address] 58767 #### HA1C #### [facility] ([id number]) [address], [address] [place] [address] Creatinine [Mass/Vol] 1.82 mg/dL High 0.70-1.20 [facility] Comment on above: Result Comment: METH OD TRACEABLE TO IDMS STANDARD Performed By: #### C BCA, PINR, 34289-5, BMP, 08910-1 #### [facility] ([id number]) [address] [place] [address] 91423 #### HA1C #### [facility] ([id number]) [address], [address] [place] [address] GFR/1.73 sq M.predicted among non-blacks MDRD (S/P/Bld) [Vol rate/Area] 38 mL/min/{1.73_m2} Low >59 [facility] Comment on above: Result Comment: Reported eGFR is based on the CKD-EPI 2020 equation that does not use a race coefficient. Performed By: #### C BCA, PINR, 07993-9, BMP, 78469-9 #### [facility] ([id number]) [address] [place] [address] 14491 #### HA1C #### [facility] ([id number]) [address], [address] [place] [address] Glucose [Mass/Vol] 99 mg/dL Normal 65-99 [facility] Comment on above: Performed By: #### C BCA, PINR, 32759-6, BMP, 18046-3 #### [facility] ([id number]) [address] [place] [address] 53049 #### HA1C #### [facility] ([id number]) [address], [address] [place] [address] Potassium [Moles/Vol] 4.3 mmol/L Normal 3.5-5.0 [facility] Comment on above: Performed By: #### C BCA, PINR, 62101-6, BMP, 44463-5 #### [facility] ([id number]) [address] [place] [address] 46339 #### HA1C #### [facility] ([id number]) [address], [address] [place] [address] Protein [Mass/Vol] 6.8 g/dL Normal 6.0-8.0 [facility] Comment on above: Performed By: #### C BCA, PINR, 21896-0, BMP, 05734-4 #### [facility] ([id number]) [address] [place] [address] 95457 #### HA1C #### [facility] ([id number]) [address], [address] [place] [address] Sodium [Moles/Vol] 136 mmol/L Normal 134-146 [facility] Comment on above: Performed By: #### C BCA, PINR, 28910-0, BMP, 81123-9 #### [facility] ([id number]) [address] [place] [address] 26511 #### HA1C #### [facility] ([id number]) [address], [address] [place] [address] Urea nitrogen [Mass/Vol] 29 mg/dL High 5-27 [facility] Comment on above: Performed By: #### C BCA, PINR, 84778-0, BMP, 36816-6 #### [facility] ([id number]) [address] [place] [address] 97989 #### HA1C #### [facility] ([id number]) [address], [address] [place] [address] Glucose Glucometer (BldC) [M ass/Vol]on 09-14-2024 Glucose [Mass/Vol] 101 mg/dL High 65-99 [facility] MAGNESIUMon 09-14-2024 Magnesium [Mass/Vol] 2.0 mg/dL Normal 1.8-2.6 [facility] Comment on above: Performed By: #### C BCA, PINR, 41061-9, BMP, 52859-2 #### [facility] ([id number]) [address] [facility], [place] [address] #### HA1C #### [facility] ([id number]) [address] [place] [address], [address] [place] [address] SARS/FLU A+B/RSV by NAAT/Mol ecularon 09-14-2024 SARS/FLU [...] operators who are performing tests using either [employer] DX or [employer] systems and is limited to laboratories that [...] repeat. Fact Sheet for Healthcare Providers: https://www.fda.gov/m edia/288431/download Fact Sheet for Patients: https://www.fda.gov/m edia/552567/download Normal [facility] Comment on above: Performed By: #### C BCA, PINR, 94372-0, BMP, 02360-5 #### [facility] ([id number]) [address] [place] [address] 74279 #### HA1C #### [facility] ([id number]) [address] [facility], [address] [place] [address] Troponin I.cardiac High sens itivity method [Mass/Vol]on 09-14-2024 1 HOUR TROP I, HIGH SENSITIVITY 4 ng/L Normal <21 [facility] Comment on above: Performed By: #### C BCA, PINR, 21244-3, BMP, 88296-8 #### [facility] ([id number]) [address] [place] [address] 93399 #### HA1C #### [facility] ([id number]) [address] [facility], [address] [place] [address] TROPONIN I, HIGH SENSITIVITY 5 ng/L Normal <21 [facility] Comment on above: Performed By: #### C BCA, PINR, 09633-4, BMP, 06315-1 #### [facility] ([id number]) [address] [place] [address] 93534 #### HA1C #### [facility] ([id number]) [address] [facility], [address] [place] [address] MR LUMBAR SPINE WO CONTRASTo n 08-23-2024 [...] 24 ABSOLUTE BASOPHIL 0.0 X10E9/L Normal 0.0-0.2 [facility] Comment on above: Performed By: #### C SHRUTHI CANALES, 22894-7, BMP, 26780-9 #### [facility] ([id number]) [address] [place] [address] 14835 #### HA1C #### [facility] ([id number]) [address] [place] [address], [address] [place] [address] ABSOLUTE NEUTROPHIL 5.7 X10E9/L Normal 1.5-6.6 [facility] Comment on above: Performed By: #### C ANUP CANALESR, 88655-2, BMP, 06086-5 #### [facility] ([id number]) [address] [place] [address] 40342 #### HA1C #### [facility] ([id number]) [address] [place] [address], [address] [place] [address] Basophils/100 WBC (Bld) 0.4 % Normal [facility] Comment on above: Performed By: #### C ANUP CANALESR, 17896-7, BMP, 59766-8 #### [facility] ([id number]) [address] [place] [address] 85124 #### HA1C #### [facility] ([id number]) [address] [place] [address], [address] [place] [address] Eosinophils (Bld) [#/Vol] 0.2 10*3/uL Normal 0.0-0.4 [facility] Comment on above: Performed By: #### C ALLY PINR, 27329-2, BMP, 89417-1 #### [facility] ([id number]) [address] [place] [address] 35353 #### HA1C #### [facility] ([id number]) [address] [facility], [address] [place] [address] Eosinophils/100 WBC (Bld) 2.1 % Normal [facility] Comment on above: Performed By: #### C BCA, PINR, 97371-4, BMP, 41462-3 #### [facility] ([id number]) [address] [place] [address] 30728 #### HA1C #### [facility] ([id number]) [address] [facility], [address] [place] [address] Erythrocyte distribution width (RBC) [Ratio] 14.6 % Normal 11.5-15.0 [facility] Comment on above: Performed By: #### C BCA, PINR, 54027-9, BMP, 92297-5 #### [facility] ([id number]) [address] [place] [address] 18811 #### HA1C #### [facility] ([id number]) [address] [facility], [address] [place] [address] Hematocrit (Bld) [Volume fraction] 40.5 % Normal 39-49 [facility] Comment on above: Performed By: #### C BCA, PINR, 64572-6, BMP, 51712-4 #### [facility] ([id number]) [address] [place] [address] 22503 #### HA1C #### [facility] ([id number]) [address] [facility], [address] [place] [address] Hemoglobin (Bld) [Mass/Vol] 13.5 g/dL Normal 13.0-17.0 [facility] Comment on above: Performed By: #### C BCA, PINR, 04993-0, BMP, 04190-9 #### [facility] ([id number]) [address] [place] [address] 29085 #### HA1C #### [facility] ([id number]) [address] [facility], [address] [place] [address] Lymphocytes (Bld) [#/Vol] 1.9 10*3/uL Normal 1.0-3.5 [facility] Comment on above: Performed By: #### C BCA, PINR, 29366-5, BMP, 21448-0 #### [facility] ([id number]) [address] [place] [address] 71595 #### HA1C #### [facility] ([id number]) [address] [place] [address], [address] [place] [address] Lymphocytes/100 WBC (Bld) 22.0 % Normal [facility] Comment on above: Performed By: #### C BCA, PINR, 18613-8, BMP, 28516-4 #### [facility] ([id number]) [address] [place] [address] 81105 #### HA1C #### [facility] ([id number]) [address] [place] [address], [address] [place] [address] MCH (RBC) [Entitic mass] 29.8 pg Normal 27-34 [facility] Comment on above: Performed By: #### C BCA, PINR, 63406-9, BMP, 64166-6 #### [facility] ([id number]) [address] [place] [address] 83806 #### HA1C #### [facility] ([id number]) [address] [facility], [address] [place] [address] MCHC (RBC) [Mass/Vol] 33.5 g/dL Normal 32-36 [facility] Comment on above: Performed By: #### C BCA, PINR, 54855-6, BMP, 48326-9 #### [facility] ([id number]) [address] [place] [address] 44991 #### HA1C #### [facility] ([id number]) [address] [facility], [address] [place] [address] MCV (RBC) [Entitic vol] 89 fL Normal 80-100 [facility] Comment on above: Performed By: #### C BCA, PINR, 70862-5, BMP, 49196-7 #### [facility] ([id number]) [address] [place] [address] 16085 #### HA1C #### [facility] ([id number]) [address] [place] [address], [address] [place] [address] Monocytes (Bld) [#/Vol] 0.8 10*3/uL Normal 0-0.9 [facility] Comment on above: Performed By: #### C BCA, PINR, 68819-6, BMP, 91545-0 #### [facility] ([id number]) [address] [place] [address] 12633 #### HA1C #### [facility] ([id number]) [address] [place] [address], [address] [place] [address] Monocytes/100 WBC (Bld) 9.4 % Normal [facility] Comment on above: Performed By: #### C BCA, PINR, 67665-7, BMP, 75100-6 #### [facility] ([id number]) [address] [place] [address] 48556 #### HA1C #### [facility] ([id number]) [address] [place] [address], [address] [place] [address] Neutrophils/100 WBC (Bld) 66.1 % Normal [facility] Comment on above: Performed By: #### C BCA, PINR, 36647-0, BMP, 45596-2 #### [facility] ([id number]) [address] [place] [address] 35795 #### HA1C #### [facility] ([id number]) [address] [facility], [address] [place] [address] Platelet mean volume (Bld) [Entitic vol] 8.0 fL Normal 7-12 [facility] Comment on above: Performed By: #### C ALLY, PINR, 34118-2, BMP, 79229-0 #### [facility] ([id number]) [address] [place] [address] 78996 #### HA1C #### [facility] ([id number]) [address] [place] [address], [address] [address] Platelets (Bld) [#/Vol] 158 10*3/uL Normal 150-450 [facility] Comment on above: Performed By: #### Matthew CANALES, PINR, 54163-7, BMP, 06870-8 #### [facility] ([id number]) [address] [place] [address] 96806 #### HA1C #### [facility] ([id number]) [facility] [facility], [address] [place] [address] RBC COUNT 4.55 X10E12/L Normal 4.10-5.70 [facility] Comment on above: Performed By: #### C ALLY, PINR, 73481-0, BMP, 53889-1 #### [facility] ([id number]) [address] [place] [address] 12880 #### HA1C #### [facility] ([id number]) [facility], [address] [place] [address] WBC (Bld) [#/Vol] 8.7 10*3/uL Normal 4.0-11.0 [facility] Comment on above: Performed By: #### C BCA, PINR, 98062-7, BMP, 03406-3 #### [facility] ([id number]) [address] [place] [address] 96082 #### HA1C #### [facility] ([id number]) [address], [address] [place] [address] CBC AND AUTO DIFFon 08-11-20 24 ABSOLUTE BASOPHIL 0.0 X10E9/L Normal 0.0-0.2 [facility] Comment on above: Performed By: #### C BCA, PINR, 25716-6, BMP, 01614-3 #### [facility] ([id number]) [address] [place] [address] 27348 #### HA1C #### [facility] ([id number]) [address] [facility], [address] [place] [address] ABSOLUTE NEUTROPHIL 7.5 X10E9/L High 1.5-6.6 [facility] Comment on above: Performed By: #### C BCA, PINR, 49728-0, BMP, 27925-6 #### [facility] ([id number]) [address] [place] [address] 53768 #### HA1C #### [facility] ([id number]) [address], [address] [place] [address] Basophils/100 WBC (Bld) 0.3 % Normal [facility] Comment on above: Performed By: #### C BCA, PINR, 22567-9, BMP, 79834-4 #### [facility] ([id number]) [address] [place] [address] 11425 #### HA1C #### [facility] ([id number]) [address] [facility], [address] [place] [address] Eosinophils (Bld) [#/Vol] 0.2 10*3/uL Normal 0.0-0.4 [facility] Comment on above: Performed By: #### C BCA, PINR, 67810-1, BMP, 47037-8 #### [facility] ([id number]) [address] [place] [address] 52566 #### HA1C #### [facility] ([id number]) [address], [address] [place] [address] Eosinophils/100 WBC (Bld) 1.5 % Normal [facility] Comment on above: Performed By: #### C BCA, PINR, 53682-7, BMP, 81974-0 #### [facility] ([id number]) [address] [place] [address] 89988 #### HA1C #### [facility] ([id number]) [address], [address] [place] [address] Erythrocyte distribution width (RBC) [Ratio] 14.7 % Normal 11.5-15.0 [facility] Comment on above: Performed By: #### C BCA, PINR, 67667-1, BMP, 09823-7 #### [facility] ([id number]) [address] [place] [address] 69044 #### HA1C #### [facility] ([id number]) [address], [address] [place] [address] Hematocrit (Bld) [Volume fraction] 41.8 % Normal 39-49 [facility] Comment on above: Performed By: #### C BCA, PINR, 87655-2, BMP, 62531-0 #### [facility] ([id number]) [address] [place] [address] 53775 #### HA1C #### [facility] ([id number]) [address] [place] [address] Hemoglobin (Bld) [Mass/Vol] 13.9 g/dL Normal 13.0-17.0 [facility] Comment on above: Performed By: #### C BCA, PINR, 52734-4, BMP, 18332-8 #### [facility] ([id number]) [address] [place] [address] 89791 #### HA1C #### [facility] ([id number]) [address] [place] [address] Lymphocytes (Bld) [#/Vol] 1.5 10*3/uL Normal 1.0-3.5 [facility] Comment on above: Performed By: #### C BCA, PINR, 15185-9, BMP, 70821-1 #### [facility] ([id number]) [address] [place] [address] 14321 #### HA1C #### [facility] ([id number]) [address] [place] [address] Lymphocytes/100 WBC (Bld) 14.7 % Normal [facility] Comment on above: Performed By: #### C BCA, PINR, 45609-8, BMP, 82892-8 #### [facility] ([id number]) [address] [place] [address] 05703 #### HA1C #### [facility] ([id number]) [address] [place] [address] MCH (RBC) [Entitic mass] 29.5 pg Normal 27-34 [facility] Comment on above: Performed By: #### C BCA, PINR, 10879-1, BMP, 84127-5 #### [facility] ([id number]) [address] [place] [address] #### HA1C #### [facility] ([id number]) [address], [address] [place] [address] MCHC (RBC) [Mass/Vol] 33.2 g/dL Normal 32-36 [facility] Comment on above: Performed By: #### C BCA, PINR, 80569-8, BMP, 27960-2 #### [facility] ([id number]) [address] [place] [address] #### HA1C #### [facility] ([id number]) [address], [address] [place] [address] MCV (RBC) [Entitic vol] 89 fL Normal 80-100 [facility] Comment on above: Performed By: #### C BCA, PINR, 17667-2, BMP, 92440-9 #### [facility] ([id number]) [address] [place] [address] #### HA1C #### [facility] ([id number]) [address], [address] [place] [address] Monocytes (Bld) [#/Vol] 0.9 10*3/uL Normal 0-0.9 [facility] Comment on above: Performed By: #### C BCA, PINR, 46341-6, BMP, 51044-7 #### [facility] ([id number]) [address] [place] [address] #### HA1C #### [facility] ([id number]) [address], [address] [place] [address] Monocytes/100 WBC (Bld) 9.2 % Normal [facility] Comment on above: Performed By: #### C BCA, PINR, 18316-4, BMP, 86563-2 #### [facility] ([id number]) [address] [place] [address] #### HA1C #### [facility] ([id number]) [address], [address] [place] [address] Neutrophils/100 WBC (Bld) 74.3 % Normal [facility] Comment on above: Performed By: #### C ALLY, PINR, 38176-1, BMP, 50530-8 #### [facility] ([id number]) [address] [place] [address] #### HA1C #### [facility] ([id number]) [address], [address] [place] [address] Platelet mean volume (Bld) [Entitic vol] 7.8 fL Normal 7-12 [facility] Comment on above: Performed By: #### C ALLY, PINR, 02945-4, BMP, 89450-9 #### [facility] ([id number]) [address] [place] [address] #### HA1C #### [facility] ([id number]) [address] [place] [address] Platelets (Bld) [#/Vol] 154 10*3/uL Normal 150-450 [facility] Comment on above: Performed By: #### C ALLY, PINR, 81922-4, BMP, 53267-6 #### [facility] ([id number]) [address] [place] [address] #### HA1C #### [facility] ([id number]) [address] [place] [address] RBC COUNT 4.70 X10E12/L Normal 4.10-5.70 [facility] Comment on above: Performed By: #### C ALLY, PINR, 15178-7, BMP, 72009-2 #### [facility] ([id number]) [address] [place] [address] 54041 #### HA1C #### [facility] ([id number]) [address], [address] [place] [address] WBC (Bld) [#/Vol] 10.1 10*3/uL Normal 4.0-11.0 [facility] Comment on above: Performed By: #### C BCA, PINR, 50727-6, BMP, 13909-7 #### [facility] ([id number]) [address] [place] [address] 51295 #### HA1C #### [facility] ([id number]) [address], [address] [place] [address] Folate [Mass/Vol]on 08-11-20 FOLIC ACID 9.5 ng/mL Normal >5.8 [facility] Comment on above: Result Comment: NEW REFERENCE RANGE Performed By: #### C BCA, PINR, 97468-4, BMP, 32620-7 #### [facility] ([id number]) [address] [place] [address] 62184 #### HA1C #### [facility] ([id number]) [address] [address] Heavy metals panel (Bld)on 10-11-2023 Arsenic, B <1 Normal <13 [facility] Comment on above: Result Comment: NOTE ADDITIONAL INFORMATION This test was developed and its performance characteristics determined by [facility] in a manner consistent with CLIA requirements. This test has not been cleared or approved by the U.S. Food and Drug Administration. Performed By: #### C BCA, PINR, 36936-4, BMP, 48945-0 #### [facility] ([id number]) [address] [place] [address] 82804 #### HA1C #### [facility] ([id number]) [address] [address] [place] [address] Cadmium, B 0.6 ng/mL Normal <5.0 [facility] Comment on above: Result Comment: NOTE ADDITIONAL INFORMATION This test was developed and its performance characteristics determined by [facility] in a manner consistent with CLIA requirements. This test has not been cleared or approved by the U.S. Food and Drug Administration. Performed By: #### C ALLY, PINR, 11811-3, [facility], 41460-5 #### [facility] ([id number]) [address] [place] [address] 04281 #### HA1C #### [facility] ([id number]) [address], [address] [place] [address] Lead, B 4.5 mcg/dL High <3.5 [facility] Comment on above: Result Comment: NOTE ADDITIONAL INFORMATION Testing performed by Triple Quadrupole Inductively Coupled Plasma-Mass Spectrometry (ICP-MS/MS). This test was developed and its performance characteristics determined by [facility] in a manner consistent with CLIA requirements. This test has not been cleared or approved by the U.S. Food and Drug Administration. Performed By: #### C ALLY, PINR, 36189-8, [facility], 30073-2 #### [facility] ([id number]) [address] [place] [address] 96212 #### HA1C #### [facility] ([id number]) [address], [address] [place] [address] Mercury, B <1 Normal <10 [facility] Comment on above: Result Comment: NOTE ADDITIONAL INFORMATION This test was developed and its performance characteristics determined by [facility] in a manner consistent with CLIA requirements. This test has not been cleared or approved by the U.S. Food and Drug Administration. Performed By: #### C ALLY, PINR, 39174-2, BMP, 15474-3 #### [facility] ([id number]) [address] [place] [address] 21078 #### HA1C #### [facility] ([id number]) [address] [facility], [address] [place] [address] Venous/Capillary Venous Normal [facility] Comment on above: Performed By: #### C ALLY, PINR, 01891-8, BMP, 40080-9 #### [facility] ([id number]) [address] [place] [address] 45706 #### HA1C #### [facility] ([id number]) [address] [facility], [address] [place] [address] Lipid 1996 panelon 4 Cholesterol [Mass/Vol] 112 mg/dL Low 150-200 [facility] Comment on above: Performed By: #### C ALLY, PINR, 59255-4, BMP, 16357-4 #### [facility] ([id number]) [address] [place] [address] 53557 #### HA1C #### [facility] ([id number]) [address] [place] [address], [address] [place] [address] Cholesterol in HDL [Mass/Vol] 46 mg/dL Normal >39 [facility] Comment on above: Result Comment: HDL <40 mg/dL - High Risk HDL > or = 40mg/dL- Desirable HDL >60 mg/dL - Negative Risk Performed By: #### C BCA, PINR, 20294-6, BMP, 24387-9 #### [facility] ([id number]) [address] [place] [address] 19522 #### HA1C #### [facility] ([id number]) [address], [address] [place] [address] Cholesterol in LDL [Mass/Vol] 51 mg/dL Normal <130 [facility] Comment on above: Result Comment: LDL <100 mg/dL - Desirable LDL >160 mg/dL - High Risk Performed By: #### C ALLY, PINR, 40568-4, BMP, 85620-9 #### [facility] ([id number]) [address] [place] [address] 55531 #### HA1C #### [facility] ([id number]) [address], [address] [place] [address] Cholesterol in VLDL [Mass/Vol] 15 mg/dL Normal 0-30 [facility] Comment on above: Performed By: #### C ALLY, PINR, 31721-3, BMP, 15681-3 #### [facility] ([id number]) [address] [place] [address] 06926 #### HA1C #### [facility] ([id number]) [address], [address] [place] [address] CHOLESTEROL:HDL 2.4 Normal 1.0-5.0 [facility] Comment on above: Performed By: #### C BCA, PINR, 44559-6, BMP, 98795-3 #### [facility] ([id number]) [address] [place] [address] 69855 #### HA1C #### [facility] ([id number]) [address] [facility], [address] [place] [address] Triglyceride [Mass/Vol] 74 mg/dL Normal 27-150 [facility] Comment on above: Performed By: #### C ALLY PINR, 85104-7, BMP, 85527-1 #### [facility] ([id number]) [address] [place] [address], [place] [address] #### HA1C #### [facility] ([id number]) [address] [facility], [address] [place] [address] MR BRAIN WO CONTon MR BRAIN WO [...] MD on 08/11/2024 10:04 AM Normal [facility] SERUM PROTEIN ELECTROPHORESI Son 08-11-2024 Albumin [Mass/Vol] 3.7 g/dL Normal 3.4-5.3 [facility] Comment on above: Performed By: #### C BCA, PINR, 71318-9, BMP, 24037-5 #### [facility] ([id number]) [address] [place] [address] 33773 #### HA1C #### [facility] ([id number]) [address], [address] [place] [address] ALPHA 1 GLOBULIN 0.3 g/dL Normal 0.1-0.4 [facility] Comment on above: Performed By: #### C BCA, PINR, 44858-4, BMP, 79030-0 #### [facility] ([id number]) [address] [place] [address] 71927 #### HA1C #### [facility] ([id number]) [address], [address] [place] [address] ALPHA 2 GLOBULIN 0.8 g/dL Normal 0.4-1.1 [facility] Comment on above: Performed By: #### C BCA, PINR, 58044-9, BMP, 46151-5 #### [facility] ([id number]) [address] [place] [address] 60392 #### HA1C #### [facility] ([id number]) [address], [address] [place] [address] BETA GLOBULIN 0.9 g/dL Normal 0.5-1.2 [facility] Comment on above: Performed By: #### C BCA, PINR, 97994-4, BMP, 35142-1 #### [facility] ([id number]) [address] [place] [address] 66721 #### HA1C #### [facility] ([id number]) [address], [address] [place] [address] GAMMA GLOBULIN 0.8 g/dL Normal 0.5-1.6 [facility] Comment on above: Performed By: #### C BCA, PINR, 80843-3, BMP, 11626-1 #### [facility] ([id number]) [address] [place] [address] 78063 #### HA1C #### [facility] ([id number]) [address] [place] [address] PROT. ELECTROPHORESIS INTERP Unremarkable protein distribution, no monoclonal bands. Normal [facility] Comment on above: Performed By: #### C BCA, PINR, 13008-8, BMP, 35656-8 #### [facility] ([id number]) [address] [place] [address] 22690 #### HA1C #### [facility] ([id number]) [address], [address] [place] [address] Protein [Mass/Vol] 6.5 g/dL Normal 6.0-8.0 [facility] Comment on above: Performed By: #### C BCA, PINR, 78400-9, BMP, 11571-4 #### [facility] ([id number]) [address] [place] [address] 60440 #### HA1C #### [facility] ([id number]) [address] [place] [address] Troponin I.cardiac High sens itivity method [Mass/Vol]on 08-11-2024 1 HOUR TROP I, HIGH SENSITIVITY 5 ng/L Normal <21 [facility] Comment on above: Performed By: #### C BCA, PINR, 27520-3, BMP, 40647-8 #### [facility] ([id number]) [address] [place] [address] 97996 #### HA1C #### [facility] ([id number]) [address], [address] [place] [address] TROPONIN I, HIGH SENSITIVITY 5 ng/L Normal <21 [facility] Comment on above: Performed By: #### C BCA, PINR, 02418-5, BMP, 41943-2 #### [facility] ([id number]) [address] [place] [address] 63834 #### HA1C #### [facility] ([id number]) [address], [address] [place] [address] VITAMIN B12on 08-11-2024 Cobalamin (Vitamin B12) [Mass/Vol] 202 pg/mL Normal 180-914 [facility] Comment on above: Performed By: #### C BCA, PINR, 49566-0, BMP, 07541-0 #### [facility] ([id number]) [address] [place] [address] 50617 #### HA1C #### [facility] ([id number]) [address], [address] [place] [address] BASIC METABOLIC PANLon 08-10 Anion gap [Moles/Vol] 9 mmol/L Normal 5-15 [facility] Comment on above: Performed By: #### C BCA, PINR, 89785-4, BMP, 00234-8 #### [facility] ([id number]) [address] [place] [address] 40318 #### HA1C #### [facility] ([id number]) [address], [address] [place] [address] Calcium [Mass/Vol] 8.4 mg/dL Low 8.5-10.5 [facility] Comment on above: Performed By: #### C BCA, PINR, 22783-3, BMP, 32262-4 #### [facility] ([id number]) [address] [place] [address] 23722 #### HA1C #### [facility] ([id number]) [address], [address] [place] [address] Chloride [Moles/Vol] 104 mmol/L Normal 98-109 [facility] Comment on above: Performed By: #### C BCA, PINR, 89576-1, BMP, 44822-1 #### [facility] ([id number]) [address] [place] [address] 59253 #### HA1C #### [facility] ([id number]) [address] [facility], [address] [place] [address] CO2 [Moles/Vol] 24 mmol/L Normal 22-32 [facility] Comment on above: Performed By: #### C BCA, PINR, 84377-5, BMP, 39322-8 #### [facility] ([id number]) [address] [place] [address] 66534 #### HA1C #### [facility] ([id number]) [address] [facility], [address] [place] [address] Creatinine [Mass/Vol] 1.40 mg/dL High 0.70-1.20 [facility] Comment on above: Result Comment: METH OD TRACEABLE TO IDMS STANDARD Performed By: #### C BCA, PINR, 69212-0, BMP, 44752-6 #### [facility] ([id number]) [address] [place] [address] 86519 #### HA1C #### [facility] ([id number]) [address] [facility], [address] [place] [address] GFR/1.73 sq M.predicted among non-blacks MDRD (S/P/Bld) [Vol rate/Area] 52 mL/min/{1.73_m2} Low >59 [facility] Comment on above: Result Comment: Reported eGFR is based on the CKD-EPI 2020 equation that does not use a race coefficient. Performed By: #### C BCA, PINR, 33728-9, BMP, 63220-7 #### [facility] ([id number]) [address] [place] [address] 69267 #### HA1C #### [facility] ([id number]) [address] [place] [address] Glucose [Mass/Vol] 103 mg/dL High 65-99 [facility] Comment on above: Performed By: #### C BCA, PINR, 26925-8, BMP, 49230-6 #### [facility] ([id number]) [address] [place] [address], [place] [address] #### HA1C #### [facility] ([id number]) [address] [facility], [address] [place] [address] Potassium [Moles/Vol] 4.3 mmol/L Normal 3.5-5.0 [facility] Comment on above: Performed By: #### C BCA, PINR, 25579-4, BMP, 92042-2 #### [facility] ([id number]) [address] [place] [address] 10655 #### HA1C #### [facility] ([id number]) [address] [facility], [address] [place] [address] Sodium [Moles/Vol] 137 mmol/L Normal 134-146 [facility] Comment on above: Performed By: #### C BCA, PINR, 88599-1, BMP, 36691-0 #### [facility] ([id number]) [address] [place] [address] 56418 #### HA1C #### [facility] ([id number]) [address] [place] [address] Urea nitrogen [Mass/Vol] 19 mg/dL Normal 5-27 [facility] Comment on above: Performed By: #### C BCA, PINR, 47586-5, BMP, 30736-7 #### [facility] ([id number]) [address] [place] [address] 14711 #### HA1C #### [facility] ([id number]) [address] [place] [address] CBC AND AUTO DIFFon 08-10-20 24 ABSOLUTE BASOPHIL 0.1 X10E9/L Normal 0.0-0.2 [facility] Comment on above: Performed By: #### C BCA, PINR, 00751-4, BMP, 80687-9 #### [facility] ([id number]) [address] [place] [address] 80921 #### HA1C #### [facility] ([id number]) [address] [place] [address] ABSOLUTE NEUTROPHIL 8.2 X10E9/L High 1.5-6.6 [facility] Comment on above: Performed By: #### C BCA, PINR, 58923-4, BMP, 41531-7 #### [facility] ([id number]) [address] [place] [address] 07582 #### HA1C #### [facility] ([id number]) [address] [place] [address] Basophils/100 WBC (Bld) 0.5 % Normal [facility] Comment on above: Performed By: #### C BCA, PINR, 61793-0, BMP, 17886-6 #### [facility] ([id number]) [address] [place] [address] 10461 #### HA1C #### [facility] ([id number]) [address] [place] [address] Eosinophils (Bld) [#/Vol] 0.1 10*3/uL Normal 0.0-0.4 [facility] Comment on above: Performed By: #### C BCA, PINR, 77942-5, BMP, 60068-0 #### [facility] ([id number]) [address] [place] [address] 46630 #### HA1C #### [facility] ([id number]) [address] [place] [address] Eosinophils/100 WBC (Bld) 1.3 % Normal [facility] Comment on above: Performed By: #### C BCA, PINR, 87145-1, BMP, 32013-4 #### [facility] ([id number]) [address] [place] [address] 57204 #### HA1C #### [facility] ([id number]) [address], [address] [place] [address] Erythrocyte distribution width (RBC) [Ratio] 14.9 % Normal 11.5-15.0 [facility] Comment on above: Performed By: #### C BCA, PINR, 96616-9, BMP, 33481-8 #### [facility] ([id number]) [address] [place] [address] 78128 #### HA1C #### [facility] ([id number]) [address] [place] [address] Hematocrit (Bld) [Volume fraction] 41.2 % Normal 39-49 [facility] Comment on above: Performed By: #### C BCA, PINR, 76842-4, BMP, 38551-3 #### [facility] ([id number]) [address] [place] [address] 75147 #### HA1C #### [facility] ([id number]) [address] [place] [address] Hemoglobin (Bld) [Mass/Vol] 13.8 g/dL Normal 13.0-17.0 [facility] Comment on above: Performed By: #### C BCA, PINR, 41484-1, BMP, 22628-6 #### [facility] ([id number]) [address] [place] [address] 23959 #### HA1C #### [facility] ([id number]) [address] [place] [address] Lymphocytes (Bld) [#/Vol] 1.5 10*3/uL Normal 1.0-3.5 [facility] Comment on above: Performed By: #### C BCA, PINR, 17846-8, BMP, 68940-2 #### [facility] ([id number]) [address] [place] [address] 64522 #### HA1C #### [facility] ([id number]) [address] [place] [address] Lymphocytes/100 WBC (Bld) 14.0 % Normal [facility] Comment on above: Performed By: #### C BCA, PINR, 48310-1, BMP, 71475-4 #### [facility] ([id number]) [address] [place] [address] 80907 #### HA1C #### [facility] ([id number]) [address] [place] [address] MCH (RBC) [Entitic mass] 29.8 pg Normal 27-34 [facility] Comment on above: Performed By: #### C BCA, PINR, 34264-2, BMP, 21901-9 #### [facility] ([id number]) [address] [place] [address] 58562 #### HA1C #### [facility] ([id number]) [address] [place] [address] MCHC (RBC) [Mass/Vol] 33.6 g/dL Normal 32-36 [facility] Comment on above: Performed By: #### C BCA, PINR, 06859-0, BMP, 80144-8 #### [facility] ([id number]) [address] [place] [address] 11466 #### HA1C #### [facility] ([id number]) [address] [place] [address] MCV (RBC) [Entitic vol] 89 fL Normal 80-100 [facility] Comment on above: Performed By: #### C BCA, PINR, 36720-9, BMP, 05595-4 #### [facility] ([id number]) [address] [place] [address] 07114 #### HA1C #### [facility] ([id number]) [address] [place] [address] Monocytes (Bld) [#/Vol] 0.9 10*3/uL Normal 0-0.9 [facility] Comment on above: Performed By: #### C BCA, PINR, 70163-2, BMP, 98316-8 #### [facility] ([id number]) [address] [place] [address] 41818 #### HA1C #### [facility] ([id number]) [address] [place] [address] Monocytes/100 WBC (Bld) 8.0 % Normal [facility] Comment on above: Performed By: #### C BCA, PINR, 01953-6, BMP, 03180-9 #### [facility] ([id number]) [address] [place] [address] 49417 #### HA1C #### [facility] ([id number]) [address] [place] [address] Neutrophils/100 WBC (Bld) 76.2 % Normal [facility] Comment on above: Performed By: #### C BCA, PINR, 71680-4, BMP, 33043-5 #### [facility] ([id number]) [address] [place] [address] 96477 #### HA1C #### [facility] ([id number]) [address] [place] [address] Platelet mean volume (Bld) [Entitic vol] 8.1 fL Normal 7-12 [facility] Comment on above: Performed By: #### C ALLY, PINR, 35697-5, BMP, 78469-6 #### [facility] ([id number]) [address] [place] [address] 76754 #### HA1C #### [facility] ([id number]) [address] [place] [address] Platelets (Bld) [#/Vol] 150 10*3/uL Normal 150-450 [facility] Comment on above: Performed By: #### C ALLY, PINR, 65296-1, BMP, 30623-4 #### [facility] ([id number]) [address] [place] [address] 07252 #### HA1C #### [facility] ([id number]) [address] [place] [address] RBC COUNT 4.64 X10E12/L Normal 4.10-5.70 [facility] Comment on above: Performed By: #### C BCA, PINR, 63943-1, BMP, 08924-8 #### [facility] ([id number]) [address] [place] [address] 74151 #### HA1C #### [facility] ([id number]) [address] [place] [address] WBC (Bld) [#/Vol] 10.8 10*3/uL Normal 4.0-11.0 [facility] Comment on above: Performed By: #### C ALLY, PINR, 91759-4, BMP, 72929-7 #### [facility] ([id number]) [address] [facility], [place] [address] #### HA1C #### [facility] ([id number]) [address] [facility], [address] [place] [address] CT BRAIN WO CONT STROKE ALER Ton [...] MD on 08/10/2024 11:23 AM Normal [facility] CT CTA CAROTIDon 08-10-2024 CT CTA [...] Automated exposure control was utilized. The [place] Symptomatic Carotid Endarterectomy Trial (NASCET)calculation of ICA [...] MD on 08/10/2024 11:38 AM Normal [facility] CT CTA HEADon 08-10-2024 CT CTA [...] sinuses. IMPRESSION: * Unremarkable CTA of [place]. No high grade arterial stenosis, large vessel occlusion or aneurysm, within confines of venous contamination. * MRI is the most sensitive to assess for ischemic changes if clinically warranted. Finalized by Jesse Kraus on 08/10/2024 11:42 AM Normal [facility] Glucose Glucometer (BldC) [M ass/Vol]on 08-10-2024 Glucose [Mass/Vol] 87 mg/dL Normal 65-99 [facility] HGB A1C (GLYCO-HGB)on 2023 Glucose [Mass/Vol] 105 mg/dL Normal [facility] Comment on above: Performed By: #### C BCA, PINR, 84946-1, BMP, 17264-1 #### [facility] ([id number]) [address] [place] [address] 52634 #### HA1C #### [facility] ([id number]) [address] [place] [address] HbA1c (Bld) [Mass fraction] 5.3 % Normal 4.4-5.6 [facility] Comment on above: Result Comment: NOTE ADA Guidelines Result HgbA1c Normal : less than 5.7 % Prediabetes : 5.7 % to 6.4 % Diabetes : > 6.4 % Use with caution in patients with abnormal hemoglobin variants as the half-life of red blood cells and in vivo glycation rates are affected. Performed By: #### C BCA, PINR, 41140-0, BMP, 91459-9 #### [facility] ([id number]) [address] [place] [address] #### HA1C #### [facility] ([id number]) [address] [place] [address] PROTIME AND INRon 08-10-2024 INR Coag (PPP) [Relative time] 1.1 {INR} Normal 0.8-1.1 [facility] Comment on above: Performed By: #### C BCA, PINR, 87437-6, BMP, 55895-1 #### [facility] ([id number]) [address] [place] [address] #### HA1C #### [facility] ([id number]) [address] [address], [address] [place] [address] PT Coag (PPP) [Time] 12.6 s Normal 9.8-13.2 [facility] Comment on above: Result Comment: NEW REFERENCE RANGE Performed By: #### C BCA, PINR, 21129-6, BMP, 14134-2 #### [facility] ([id number]) [address] [place] [address] #### HA1C #### [facility] ([id number]) [address] [address], [address] [place] [address] Troponin I.cardiac High sens itivity method [Mass/Vol]on 08-10-2024 1 HOUR TROP I, HIGH SENSITIVITY 4 ng/L Normal <21 [facility] Comment on above: Performed By: #### C BCA, PINR, 25365-7, BMP, 50565-0 #### [facility] ([id number]) [address] [place] [address] #### HA1C #### [facility] ([id number]) [address], [address] [place] [address] TROPONIN I, HIGH SENSITIVITY 4 ng/L Normal <21 [facility] Comment on above: Performed By: #### C BCA, PINR, 31671-2, BMP, 77669-6 #### [facility] ([id number]) [address] [place] [address] #### HA1C #### [facility] ([id number]) [address], [address] [place] [address] XR CHEST 1 VIEW STROKEon XR CHEST [...] MD on 08/10/2024 12:31 PM Normal [facility] aPTT Coag (PPP) [Time]on aPTT Coag (Bld) [Time] 32 s Normal 26-37 [facility] Comment on above: Result Comment: NEW REFERENCE RANGE Performed By: #### C BCA, PINR, 98218-9, BMP, 93740-2 #### [facility] ([id number]) [address] [place] [address] #### HA1C #### [facility] ([id number]) [address], [address] [place] [address] BLOOD CULTURE 1on 06-26-2024 BLOOD CULTURE 1 Blood Culture 1 NG5D NO GROWTH AT 5 DAYS.^NO GROWTH AT 5 DAYS. [facility] BLOOD CULTURE 2on 06-26-2024 BLOOD [...] by Vu Moore on 05/13/2022 1312 Normal [facility] C-Reactive Proteinon 022 CRP IV 0.8 mg/dl Normal <5.0 [facility] Comment on above: Performed By: #### C MP, CRP, FT4, LIPD, FT3, ESR, TSH, CBC #### [facility] [address] [place], [place] [id number] Complete Blood Counton 11-10 Erythrocyte distribution width (RBC) [Ratio] 13.9 % Normal 11.0-15.0 [facility] Comment on above: Performed By: #### C MP, CRP, FT4, LIPD, FT3, ESR, TSH, CBC #### [facility] [address] [place], [place] [id number] Hematocrit (Bld) [Volume fraction] 48.5 % Normal 38.5-50.0 [facility] Comment on above: Performed By: #### C MP, CRP, FT4, LIPD, FT3, ESR, TSH, CBC #### [facility] [address] [place], [place] [id number] Hemoglobin (Bld) [Mass/Vol] 15.1 g/dL Normal 13.0-17.1 [facility] Comment on above: Performed By: #### C MP, CRP, FT4, LIPD, FT3, ESR, TSH, CBC #### [facility] [address] [place], [place] [id number] MCH (RBC) [Entitic mass] 28.6 pg Normal 27.0-33.0 [facility] Comment on above: Performed By: #### C MP, CRP, FT4, LIPD, FT3, ESR, TSH, CBC #### [facility] [address] [place], [place] [id number] MCHC (RBC) [Mass/Vol] 31.1 g/dL Low 32.0-36.0 [facility] Comment on above: Performed By: #### C MP, CRP, FT4, LIPD, FT3, ESR, TSH, CBC #### [facility] [address] [place], [place] [id number] MCV (RBC) [Entitic vol] 92 fL Normal 80-100 [facility] Comment on above: Performed By: #### C MP, CRP, FT4, LIPD, FT3, ESR, TSH, CBC #### [facility] [address] [place], [place] [id number] Platelet mean volume (Bld) [Entitic vol] 9.10 fL Normal 7.50-12.50 [facility] Comment on above: Performed By: #### C MP, CRP, FT4, LIPD, FT3, ESR, TSH, CBC #### [facility] [address] [place], [place] [id number] Platelets (Bld) [#/Vol] 151 10*3/uL Normal 140-400 [facility] Comment on above: Performed By: #### C MP, CRP, FT4, LIPD, FT3, ESR, TSH, CBC #### [facility] [address] [place], [place] [id number] RBC (Bld) [#/Vol] 5.28 10*6/uL Normal 4.20-5.80 [facility] Comment on above: Performed By: #### C MP, CRP, FT4, LIPD, FT3, ESR, TSH, CBC #### [facility] [address] [place], [place] [id number] RDW-SD 46.7 fL Normal 37.0-50.0 [facility] Comment on above: Performed By: #### C MP, CRP, FT4, LIPD, FT3, ESR, TSH, CBC #### [facility] [address] [place], [place] [id number] WBC (Bld) [#/Vol] 10.2 10*3/uL Normal 3.8-11.0 [facility] Comment on above: Performed By: #### C MP, CRP, FT4, LIPD, FT3, ESR, TSH, CBC #### [facility] [address] [place], [place] [id number] Comprehensive Metabolic Pane reji 11-10-2021 Albumin [Mass/Vol] 4.1 g/dL Normal 3.6-5.1 [facility] Comment on above: Performed By: #### C MP, CRP, FT4, LIPD, FT3, ESR, TSH, CBC #### [facility] [address] [place], [place] [id number] Albumin/Globulin [Mass ratio] 1.6 {ratio} Normal 1.0-2.5 [facility] Comment on above: Performed By: #### C MP, CRP, FT4, LIPD, FT3, ESR, TSH, CBC #### [facility] [address] [place], [place] [id number] ALP [Catalytic activity/Vol] 98 U/L Normal 40-129 [facility] Comment on above: Performed By: #### C MP, CRP, FT4, LIPD, FT3, ESR, TSH, CBC #### [facility] [address] [place], [place] [id number] ALT [Catalytic activity/Vol] 36 U/L Normal 9-46 [facility] Comment on above: Result Comment: 08/13 Female reference range changed. Performed By: #### C MP, CRP, FT4, LIPD, FT3, ESR, TSH, CBC #### [facility] [address] [place], [place] [id number] Anion gap [Moles/Vol] 16 mmol/L Normal 12-20 [facility] Comment on above: Result Comment: Effe ctive 09/18/2019 reference range changed. Performed By: #### C MP, CRP, FT4, LIPD, FT3, ESR, TSH, CBC #### [facility] [address] [place], [place] [id number] AST [Catalytic activity/Vol] 19 U/L Normal 10-40 [facility] Comment on above: Performed By: #### C MP, CRP, FT4, LIPD, FT3, ESR, TSH, CBC #### [facility] [address] [place], [place] [id number] Bilirubin [Mass/Vol] 0.65 mg/dL Normal 0.30-1.20 [facility] Comment on above: Performed By: #### C MP, CRP, FT4, LIPD, FT3, ESR, TSH, CBC #### [facility] [address] [place], [place] [id number] BUN/CREA 13 Ratio Normal 6-22 [facility] Comment on above: Performed By: #### C MP, CRP, FT4, LIPD, FT3, ESR, TSH, CBC #### [facility] [address] [place], [place] [id number] Calcium [Mass/Vol] 8.5 mg/dL Low 8.6-10.2 [facility] Comment on above: Performed By: #### C MP, CRP, FT4, LIPD, FT3, ESR, TSH, CBC #### [facility] [address] [place], [place] [id number] Chloride [Moles/Vol] 107 mmol/L Normal 98-107 [facility] Comment on above: Performed By: #### C MP, CRP, FT4, LIPD, FT3, ESR, TSH, CBC #### [facility] [address] [place], [place] [id number] CO2 [Moles/Vol] 25 mmol/L Normal 20-31 [facility] Comment on above: Performed By: #### C MP, CRP, FT4, LIPD, FT3, ESR, TSH, CBC #### [facility] [address] [place], [place] [id number] Creatinine [Mass/Vol] 1.6 mg/dL High 0.7-1.4 [facility] Comment on above: Performed By: #### C MP, CRP, FT4, LIPD, FT3, ESR, TSH, CBC #### [facility] [address] [place], [place] [id number] eGFRAA 53 mL/min/1.73m2 Low >60 [facility] Comment on above: Performed By: #### C MP, CRP, FT4, LIPD, FT3, ESR, TSH, CBC #### [facility] [address] [place], [place] [id number] eGFRNAA 44 mL/min/1.73m2 Low >60 [facility] Comment on above: Performed By: #### C MP, CRP, FT4, LIPD, FT3, ESR, TSH, CBC #### [facility] [address] [place], [place] [id number] Globulin (S) [Mass/Vol] 2.5 g/dL Normal 1.9-3.7 [facility] Comment on above: Performed By: #### C MP, CRP, FT4, LIPD, FT3, ESR, TSH, CBC #### [facility] [address] [place], [place] [id number] Glucose [Mass/Vol] 88 mg/dL Normal 65-99 Natalie [facility]sie[facility] Comment on above: Result Comment: For FASTING Glucose --- ADA reference ranges: Normal 65-99 mg/dl Prediabetes 100-125 Diabetes >/= 126 Performed By: #### C MP, CRP, FT4, LIPD, FT3, ESR, TSH, CBC #### [facility] [address] [place], [place] [id number] Potassium [Moles/Vol] 5.2 mmol/L Normal 3.5-5.5 [facility] Comment on above: Performed By: #### C MP, CRP, FT4, LIPD, FT3, ESR, TSH, CBC #### [facility] [address] [place], [place] [id number] Protein [Mass/Vol] 6.6 g/dL Normal 6.1-8.1 Natalie [facility] Comment on above: Performed By: #### C MP, CRP, FT4, LIPD, FT3, ESR, TSH, CBC #### [facility] [address] [place], [place] [id number] Sodium [Moles/Vol] 143 mmol/L Normal 135-146 [facility] Comment on above: Performed By: #### C MP, CRP, FT4, LIPD, FT3, ESR, TSH, CBC #### [facility] [address] [place], [place] [id number] Urea nitrogen [Mass/Vol] 20 mg/dL Normal 7-25 [facility] Comment on above: Performed By: #### C MP, CRP, FT4, LIPD, FT3, ESR, TSH, CBC #### [facility] [address] [place], [place] [id number] Free T3on 11-10-2021 FT3 2.63 pg/mL Normal 2.00-4.40 [facility] Comment on above: Performed By: #### C MP, CRP, FT4, LIPD, FT3, ESR, TSH, CBC #### [facility] [address] [place], [place] [id number] Free T4on 11-10-2021 Free T4 [Mass/Vol] 1.00 ng/dL Normal 0.80-1.80 [facility] Comment on above: Performed By: #### C MP, CRP, FT4, LIPD, FT3, ESR, TSH, CBC #### [facility] [address] [place], [place] [id number] Lipid Panelon 11-10-2021 Cholesterol [Mass/Vol] 147 mg/dL Normal 125-200 [facility] Comment on above: Result Comment: Low risk < 200mg/dL Borderline risk 201-239 mg/dl High risk > or equal to 240 Performed By: #### C MP, CRP, FT4, LIPD, FT3, ESR, TSH, CBC #### [facility] [address] [place], [place] [id number] Cholesterol in HDL [Mass/Vol] 71 mg/dL Normal >40 [facility] Comment on above: Result Comment: High Cardiovascular Risk HDL <40 mg/dL Low Cardiovascular Risk HDL > or equal to 60 mg/dl Performed By: #### C MP, CRP, FT4, LIPD, FT3, ESR, TSH, CBC #### [facility] [address] [place], [place] [id number] Cholesterol in LDL [Mass/Vol] 58 mg/dL Normal [facility] Comment on above: Result Comment: LDL ATP III CLASSIFICATION LDL less than 100 mg/dl Optimal LDL 100-129 mg/dl Near or above optimal LDL 130-159 Borderline high LDL 160-189 High LDL greater than 189 mg/dl Very High Performed By: #### C MP, CRP, FT4, LIPD, FT3, ESR, TSH, CBC #### [facility] [address] [place], [place] [id number] Cholesterol in VLDL [Mass/Vol] 18 mg/dL Normal [facility] Comment on above: Performed By: #### C MP, CRP, FT4, LIPD, FT3, ESR, TSH, CBC #### [facility] [address] [place], [place] [id number] Cholesterol.total/Cho lesterol in HDL [Mass ratio] 2 {ratio} Normal [facility] Comment on above: Performed By: #### C MP, CRP, FT4, LIPD, FT3, ESR, TSH, CBC #### [facility] [address] [place], [place] [id number] Triglyceride [Mass/Vol] 89 mg/dL Normal 30-150 [facility] Comment on above: Result Comment: TRIG ATPIII CLASSIFICATIONS TRIG less than 150 mg/dl Normal TRIG 150-199 mg/dl Borderline High TRIG 200-500 mg/dl High TRIG greather than 500 mg/dl Very High Performed By: #### C MP, CRP, FT4, LIPD, FT3, ESR, TSH, CBC #### [facility] [address] [place], [place] [id number] PSA SCREEN (MEDICARE)on 10-15 TPSA 0.731 ng/mL Normal <4.000 [facility] Comment on above: Result Comment: PSA Test Method: ECLIA/Alicia e 601 Performed By: #### P SA #### [facility] [address] [place], [place] [id number] RBC Sedimentation Rateon ESR (Bld) [Velocity] 57.00 mm/h High 0.00-20.00 [facility] Comment on above: Performed By: #### C MP, CRP, FT4, LIPD, FT3, ESR, TSH, CBC #### [facility] [address] [place], [place] [id number] TSHon 11-10-2021 TSH 2.990 uIU/mL Normal 0.400-4.500 [facility] Comment on above: Performed By: #### C MP, CRP, FT4, LIPD, FT3, ESR, TSH, CBC #### [facility] [address] [place], [place] [id number] Uric Acidon 10-20-2021 URIC 8.5 mg/dL High 4.0-8.0 [facility] Comment on above: Result Comment: Refe rence range change 07/30/2017. Prior reference range F 2.4-5.7mg/dL. M 3.4-7.0 mg/dL. Performed By: #### U BOSSMAN #### [facility] [address] [place], [place] [id number] XR pre/post mri xrayon 08-01 XR pre/post mri xray [facility] [address] [place] [address] MRI Report Signed Patient: Hakeem Escobedo MR#: [id number] : 1945 Acct:[id number] Age/Sex: 75 / M ADM Date: 08/01/21 Loc: [facility] Room: Type: [facility] Attending Dr: Petrona Boyer NP Ordering Provider: Petrona Boyer NP Date of Service: 08/01/21 MR/MR lumbar spine wo con: M51.26 ([id number]) XR/XR pre/post mri xray: M51.26 Copies to: [...] Kirk Santiago M.D.08/01/2021 5:06 PM Dictation Location: [place] [address] Transcribed By: [facility] 08/01/21 170 Dictated By: Kirk Santiago II, MD 08/01/21 8993 Signed By: 08/01/[address] [facility] Vital Signs Date Time Vital Sign Value Performing Clinician Greta serrato 06-25-2025 11:22-0400 Body height 167.6 cm Mono Knowles MD Work Phone: [facility] 06-25-2025 11:22-0400 Body mass index (BMI) [Ratio] 31.47 kg/m2 Mono Knowles MD Work Phone: [facility] 06-25-2025 11:22-0400 Body temperature 97.9 [degF] Mono Knowles MD Work Phone: [facility] 06-25-2025 11:22-0400 Body weight 88.45 kg Mono Knowles MD Work Phone: [facility] 06-25-2025 11:22-0400 Diastolic blood pressure 76 mm[Hg] Mono Knowles MD Work Phone: [facility] 06-25-2025 11:22-0400 Heart rate 66 /min Mono Knowles MD Work Phone: [facility] 06-25-2025 11:22-0400 SaO2% (BldA) [Mass fraction] 96 % Mono Knowles MD Work Phone: [facility] 06-25-2025 11:22-0400 Systolic blood pressure 124 mm[Hg] Mono Knowles MD Work Phone: [facility] 06-21-2025 09:07-0400 Body height 167.6 cm Kami Thomason BUILDING ASSOCIATE Work Phone: [facility] 06-21-2025 09:07-0400 Body mass index (BMI) [Ratio] 31.96 kg/m2 Kami Thomason BUILDING ASSOCIATE Work Phone: [facility] 06-21-2025 09:07-0400 Body weight 89.81 kg Kami Thomason BUILDING ASSOCIATE Work Phone: [facility] 06-21-2025 09:07-0400 Diastolic blood pressure 78 mm[Hg] Kami Thomason BUILDING ASSOCIATE Work Phone: [facility] 06-21-2025 09:07-0400 Heart rate 71 /min Kami Thomason BUILDING ASSOCIATE Work Phone: [facility] 06-21-2025 09:07-0400 Respiratory rate 16 /min Kami Thomason BUILDING ASSOCIATE Work Phone: [facility] 06-21-2025 09:07-0400 SaO2% (BldA) [Mass fraction] 96 % Kami Thomason BUILDING ASSOCIATE Work Phone: [facility] 06-21-2025 09:07-0400 Systolic blood pressure 110 mm[Hg] Kami Thomason BUILDING ASSOCIATE Work Phone: [facility] 03-07-2025 08:46-0400 Body height 167.6 cm Mono Knowles MD Work Phone: [facility] 03-07-2025 08:46-0400 Body mass index (BMI) [Ratio] 31.15 kg/m2 Mono Knowles MD Work Phone: [facility] 03-07-2025 08:46-0400 Body weight 87.54 kg Mono Knowles MD Work Phone: [facility] 03-07-2025 08:46-0400 Diastolic blood pressure 70 mm[Hg] Mono Knowles MD Work Phone: [facility] 03-07-2025 08:46-0400 Heart rate 54 /min Mono Knowles MD Work Phone: [facility] 03-07-2025 08:46-0400 SaO2% (BldA) [Mass fraction] 97 % Mono Knowles MD Work Phone: [facility] 03-07-2025 08:46-0400 Systolic blood pressure 128 mm[Hg] Mono Knowles MD Work Phone: [facility] 02-28-2025 10:40-0400 Body height 167.6 cm Mono Knowles MD Work Phone: [facility] 02-28-2025 10:40-0400 Body mass index (BMI) [Ratio] 31.09 kg/m2 Mono Knowles MD Work Phone: [facility] 02-28-2025 10:40-0400 Body weight 87.36 kg Mono Knowles MD Work Phone: [facility] 02-28-2025 10:40-0400 Diastolic blood pressure 82 mm[Hg] Mono Knowles MD Work Phone: [facility] 02-28-2025 10:40-0400 Heart rate 64 /min Mono Knowles MD Work Phone: [facility] 02-28-2025 10:40-0400 Respiratory rate 16 /min Mono Knowles MD Work Phone: [facility] 02-28-2025 10:40-0400 SaO2% (BldA) [Mass fraction] 97 % Mono Knowles MD Work Phone: [facility] 02-28-2025 10:40-0400 Systolic blood pressure 120 mm[Hg] Mono Knowles MD Work Phone: [facility] 02-12-2025 08:48-0400 Body height 167.6 cm Mono Knowles MD Work Phone: [facility] 02-12-2025 08:48-0400 Body mass index (BMI) [Ratio] 31.31 kg/m2 Mono Knowles MD Work Phone: [facility] 02-12-2025 08:48-0400 Body weight 88 kg Mono Knowles MD Work Phone: [facility] 02-12-2025 08:48-0400 Diastolic blood pressure 76 mm[Hg] Mono Knowles MD Work Phone: [facility] 02-12-2025 08:48-0400 Heart rate 63 /min Mono Knowles MD Work Phone: [facility] 02-12-2025 08:48-0400 SaO2% (BldA) [Mass fraction] 96 % Mono Knowles MD Work Phone: [facility] 02-12-2025 08:48-0400 Systolic blood pressure 124 mm[Hg] Mono Knowles MD Work Phone: [facility] 12-06-2024 09:07-0400 Body height 167.6 cm Mono Knowles MD Work Phone: [facility] 12-06-2024 09:07-0400 Body mass index (BMI) [Ratio] 30.99 kg/m2 Mono Knowles MD Work Phone: [facility] 12-06-2024 09:07-0400 Body weight 87.09 kg Mono Knowles MD Work Phone: [facility] 12-06-2024 09:07-0400 Diastolic blood pressure 76 mm[Hg] Mono Knowles MD Work Phone: [facility] 12-06-2024 09:07-0400 Heart rate 62 /min Mono Knowles MD Work Phone: [facility] 12-06-2024 09:07-0400 SaO2% (BldA) [Mass fraction] 98 % Mono Knowles MD Work Phone: [facility] 12-06-2024 09:07-0400 Systolic blood pressure 128 mm[Hg] Mono Knowles MD Work Phone: [facility] 11-08-2024 14:24-0500 Body mass index (BMI) [Ratio] 30.89 kg/m2 Christopher Jossy DO Work Phone: [facility] 11-08-2024 14:24-0500 Body weight 86.82 kg Christopher Jossy DO Work Phone: [facility] 11-08-2024 14:24-0500 Diastolic blood pressure 84 mm[Hg] Christopher Jossy DO Work Phone: [facility] 11-08-2024 14:24-0500 Heart rate 64 /min Christopher Jossy DO Work Phone: [facility] 11-08-2024 14:24-0500 SaO2% (BldA) [Mass fraction] 97 % Christopher Jossy DO Work Phone: [facility] 11-08-2024 14:24-0500 Systolic blood pressure 132 mm[Hg] Christopher Jossy DO Work Phone: [facility] 11-01-2024 08:12-0500 Body height 167.6 cm Norma Jin MD Work Phone: [facility] 11-01-2024 08:12-0500 Body mass index (BMI) [Ratio] 30.18 kg/m2 Norma Jin MD Work Phone: [facility] 11-01-2024 08:12-0500 Body weight 84.82 kg Norma Jin MD Work Phone: [facility] 11-01-2024 08:12-0500 Diastolic blood pressure 77 mm[Hg] Norma Jin MD Work Phone: [facility] 11-01-2024 08:12-0500 Heart rate 75 /min Norma Jin MD Work Phone: [facility] 11-01-2024 08:12-0500 Systolic blood pressure 113 mm[Hg] Norma Jin MD Work Phone: [facility] 10-09-2024 11:11-0500 Body height 167.6 cm Mono Knowles MD Work Phone: [facility] 10-09-2024 11:11-0500 Body mass index (BMI) [Ratio] 30.18 kg/m2 Mono Knowles MD Work Phone: [facility] 10-09-2024 11:11-0500 Body weight 84.82 kg Mono Knowles MD Work Phone: [facility] 10-09-2024 11:11-0500 Diastolic blood pressure 72 mm[Hg] Mono Knowles MD Work Phone: [facility] 10-09-2024 11:11-0500 Heart rate 67 /min Mono Knowles MD Work Phone: [facility] 10-09-2024 11:11-0500 SaO2% (BldA) [Mass fraction] 96 % Mono Knowles MD Work Phone: [facility] 10-09-2024 11:11-0500 Systolic blood pressure 126 mm[Hg] Mono Knowles MD Work Phone: [facility] 09-22-2024 08:33-0500 Body height 167.6 cm Marylou LOVELACE Work Phone: [facility] 09-22-2024 08:33-0500 Body mass index (BMI) [Ratio] 30.34 kg/m2 Marylou Hemmer PA Work Phone: [facility] 09-22-2024 08:33-0500 Body weight 85.28 kg Marylou Hemmer PA Work Phone: [facility] 09-22-2024 08:33-0500 Diastolic blood pressure 72 mm[Hg] Marylou Hemmer PA Work Phone: [facility] 09-22-2024 08:33-0500 Heart rate 52 /min Marylou Hemmer PA Work Phone: [facility] 09-22-2024 08:33-0500 SaO2% (BldA) [Mass fraction] 94 % Marylou Hemmer PA Work Phone: [facility] 09-22-2024 08:33-0500 Systolic blood pressure 116 mm[Hg] Marylou Bartholomewmer PA Work Phone: [facility] 08-30-2024 08:59-0500 Body height 167.6 cm Mono Knowles MD Work Phone: [facility] 08-30-2024 08:59-0500 Body mass index (BMI) [Ratio] 29.86 kg/m2 Mono Knowles MD Work Phone: [facility] 08-30-2024 08:59-0500 Body weight 83.92 kg Mono Knowles MD Work Phone: [facility] 08-30-2024 08:59-0500 Diastolic blood pressure 68 mm[Hg] Mono Knowles MD Work Phone: [facility] 08-30-2024 08:59-0500 Heart rate 66 /min Mono Knowles MD Work Phone: [facility] 08-30-2024 08:59-0500 SaO2% (BldA) [Mass fraction] 96 % Mono Knowles MD Work Phone: [facility] 08-30-2024 08:59-0500 Systolic blood pressure 112 mm[Hg] Mono Knowles MD Work Phone: [facility] 07-12-2024 10:12-0400 Body height 167.6 cm Mono Knowles MD Work Phone: [facility] 07-12-2024 10:12-0400 Body mass index (BMI) [Ratio] 30.34 kg/m2 Mono Knowles MD Work Phone: [facility] 07-12-2024 10:12-0400 Body weight 85.28 kg Mono Knowles MD Work Phone: [facility] 07-12-2024 10:12-0400 Diastolic blood pressure 74 mm[Hg] Mono Knowles MD Work Phone: [facility] 07-12-2024 10:12-0400 Heart rate 62 /min Mono Knowles MD Work Phone: [facility] 07-12-2024 10:12-0400 SaO2% (BldA) [Mass fraction] 97 % Mono Knowles MD Work Phone: [facility] 07-12-2024 10:12-0400 Systolic blood pressure 132 mm[Hg] Mono Knowles MD Work Phone: [facility] 06-26-2024 09:15-0400 Body height 167.6 cm Mono Knowles MD Work Phone: [facility] 06-26-2024 09:15-0400 Body mass index (BMI) [Ratio] 29.7 kg/m2 Mono Knowles MD Work Phone: [facility] 06-26-2024 09:15-0400 Body weight 83.46 kg Mono Knowles MD Work Phone: [facility] 06-26-2024 09:15-0400 Diastolic blood pressure 70 mm[Hg] Mono Knowles MD Work Phone: [facility] 06-26-2024 09:15-0400 Heart rate 63 /min Mono Knowles MD Work Phone: [facility] 06-26-2024 09:15-0400 SaO2% (BldA) [Mass fraction] 97 % Mono Knowles MD Work Phone: [facility] 06-26-2024 09:15-0400 Systolic blood pressure 124 mm[Hg] Mono Knowles MD Work Phone: [facility] 05-24-2024 08:42-0400 Body height 167.6 cm Yvette Ray BUILDING ASSOCIATE Work Phone: [facility] 05-24-2024 08:42-0400 Body mass index (BMI) [Ratio] 29.86 kg/m2 Yvette Ray BUILDING ASSOCIATE Work Phone: [facility] 05-24-2024 08:42-0400 Body weight 83.92 kg Yvette Cory BUILDING ASSOCIATE Work Phone: [facility] 05-24-2024 08:42-0400 Diastolic blood pressure 82 mm[Hg] Yvette Ray BUILDING ASSOCIATE Work Phone: [facility] 05-24-2024 08:42-0400 Heart rate 60 /min Yvette Cory BUILDING ASSOCIATE Work Phone: [facility] 05-24-2024 08:42-0400 SaO2% (BldA) [Mass fraction] 98 % Yvette Ray BUILDING ASSOCIATE Work Phone: [facility] 05-24-2024 08:42-0400 Systolic blood pressure 122 mm[Hg] Yvette Ray BUILDING ASSOCIATE Work Phone: [facility] 05-10-2024 09:59-0400 Body height 167.6 cm Mono Knowles MD Work Phone: [facility] 05-10-2024 09:59-0400 Body mass index (BMI) [Ratio] 30.18 kg/m2 Mono Knowles MD Work Phone: [facility] 05-10-2024 09:59-0400 Body weight 84.82 kg Mono Knowles MD Work Phone: [facility] 05-10-2024 09:59-0400 Diastolic blood pressure 82 mm[Hg] Mono Knowles MD Work Phone: [facility] 05-10-2024 09:59-0400 Heart rate 56 /min Mono Knowles MD Work Phone: [facility] 05-10-2024 09:59-0400 SaO2% (BldA) [Mass fraction] 98 % Mono Knowles MD Work Phone: [facility] 05-10-2024 09:59-0400 Systolic blood pressure 134 mm[Hg] Mono Knowles MD Work Phone: [facility] 12-09-2023 08:38-0400 Body height 167.6 cm Adrian Son MD Work Phone: [facility] 12-09-2023 08:38-0400 Body mass index (BMI) [Ratio] 29.86 kg/m2 Adrian Son MD Work Phone: [facility] 12-09-2023 08:38-0400 Body weight 83.92 kg Adrian Son MD Work Phone: [facility] 12-09-2023 08:38-0400 Diastolic blood pressure 70 mm[Hg] Adrian Son MD Work Phone: [facility] 12-09-2023 08:38-0400 Heart rate 63 /min Adrian Son MD Work Phone: [facility] 12-09-2023 08:38-0400 SaO2% (BldA) [Mass fraction] 95 % Adrian Son MD Work Phone: [facility] 12-09-2023 08:38-0400 Systolic blood pressure 110 mm[Hg] Adrian Son MD Work Phone: [facility] 10-27-2023 08:49-0500 Body height 167.6 cm Mono Knowles MD Work Phone: [facility] 10-27-2023 08:49-0500 Body mass index (BMI) [Ratio] 29.7 kg/m2 Mono Knowles MD Work Phone: [facility] 10-27-2023 08:49-0500 Body weight 83.46 kg Mono Knowles MD Work Phone: [facility] 10-27-2023 08:49-0500 Diastolic blood pressure 66 mm[Hg] Mono Knowles MD Work Phone: [facility] 10-27-2023 08:49-0500 Heart rate 56 /min Mono Knowles MD Work Phone: [facility] 10-27-2023 08:49-0500 SaO2% (BldA) [Mass fraction] 97 % Mono Knowles MD Work Phone: [facility] 10-27-2023 08:49-0500 Systolic blood pressure 108 mm[Hg] Mono Knowles MD Work Phone: [facility] Healthcare Encounters Encounter Date Encounter [...] 06-21-2025 End: 06-21-2025 Bamboo flowsheet Kami Thomason BUILDING ASSOCIATE Work Phone: [facility] Start: 06-21-2025 End: 06-21-2025 Bamboo flowsheet Kami Thomason BUILDING ASSOCIATE Work Phone: [facility] [facility] Start: 06-21-2025 End: 06-21-2025 Office outpatient visit 25 minutes Kami Thomason BUILDING ASSOCIATE Work Phone: [facility] [facility] Comment on above: Acute bronchitis, un specified organism (Primary Dx); Anxiety; Chronic insomnia Start: 06-21-2025 End: 06-21-2025 ambulatory KAMI THOMASON Not Available Start: 06-15-2025 End: 06-15-2025 Refill Mono Knowles MD Work Phone: [facility] Comment on above: Cervical stenosis of spinal canal Start: 06-05-2025 End: 06-06-2025 Telephone encounter [facility] Start: 05-28-2025 ambulatory MONO KNOWLES [facility] Start: 05-26-2025 End: 05-26-2025 Telephone encounter [facility] Comment on above: HIM Start: 05-26-2025 End: 05-29-2025 [facility] Start: 05-24-2025 End: 05-24-2025 Emergency department patient visit MONO KNOWLES [facility] Start: 05-11-2025 End: 05-15-2025 Refill [facility] Comment on above: Anxiety Start: 05-09-2025 End: 05-09-2025 Refill Mono Knowles MD Work Phone: [facility] Comment on above: Cervical stenosis of spinal canal Start: 04-11-2025 End: 04-11-2025 Refill Summer GARZAS [facility] Comment on above: Anxiety Start: 04-10-2025 End: 04-10-2025 Refill Mono Knowles MD Work Phone: [facility] Comment on above: Cervical stenosis of spinal canal Start: 03-14-2025 End: 03-14-2025 Refill Mono Knowles MD Work Phone: [facility] Comment on above: Gastroesophageal ref lux disease with esophagitis without hemorrhage Start: 03-13-2025 End: 03-13-2025 Refill Summer Millerton MA [facility] Comment on above: [...] 01-22-2025 Emergency department patient visit MONO KNOWLES [facility] Start: 01-08-2025 End: 01-08-2025 Refill Mono [...] hemorrhage; Benign essential hypertension (CMS/HCC); 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); Stented [...] Start: 10-21-2024 End: 10-23-2024 Refill Jaxson Cunningham EQUIPMENT PROCESSER STORAGE-OBSERVER ELECTRICAL PROSPECTING Work Phone: [facility] Comment on above: Med Refill [...] Start: 10-06-2024 End: 10-07-2024 ambulatory MONO KNOWLES [facility] Start: 09-22-2024 End: 09-22-2024 Office outpatient [...] End: 09-14-2024 Emergency department patient visit MONO [facility] Start: 09-14-2024 ambulatory [facility] Start: 08-31-2024 End: 08-31-2024 Telephone encounter Wednesday WOMEN'S ACTIVITIES ADVISER Work Phone: [facility] Start: 08-31-2024 ambulatory MONO [facility] Start: 08-30-2024 End: 08-30-2024 Bamboo flowsheet [...] Telephone encounter Robert Curry MD Work Phone: [facility] Comment on above: Results Start: 08-23-2024 End: 08-23-2024 ambulatory KE SANCHEZ Not Available Start: 08-17-2024 End: 08-17-2024 Refill Mono Knowles MD Work Phone: [facility] Comment on above: Cervical stenosis of spinal canal Start: 08-15-2024 End: 08-22-2024 [facility] Comment on above: NEW PATIENT REFERRAL Start: 08-10-2024 End: 08-12-2024 ambulatory MONO KNOWLES [facility] Start: 07-20-2024 End: 07-20-2024 Refill Odalys Villagomez WOMEN'S ACTIVITIES ADVISER [facility] Comment on above: Cervical stenosis of spinal canal Start: 07-19-2024 End: 07-19-2024 Refill Yvette Ray BUILDING ASSOCIATE Work Phone: [facility] Comment on [...] Start: 06-22-2024 End: 06-22-2024 Refill Karol Wednesday WOMEN'S ACTIVITIES ADVISER Work Phone: [facility] Comment on [...] 05-24-2024 End: 05-24-2024 Bamboo flowsheet Yvette Ray BUILDING ASSOCIATE Work Phone: [facility] Start: 05-24-2024 End: 05-24-2024 Bamboo flowsheet Yvette Ray BUILDING ASSOCIATE Work Phone: [facility] Start: 05-24-2024 End: 05-24-2024 Office outpatient visit 25 minutes Yvette Ray BUILDING ASSOCIATE Work Phone: [facility] Comment on [...] ertension (Primary Dx); Coronary artery disease involving [place] coronary artery of [place] heart without angina pectoris Start: 12-08-2023 Telephone encounter Quynh Bustillo [facility] Start: 11-16-2023 Telephone encounter Quynh Bustillo [facility] Start: 11-01-2023 Telephone encounter Magalie Mcdaniel RN [facility] Start: 10-28-2023 Refill [facility] Comment on above: Med Refill Start: 10-27-2023 Bamboo Healthcentrixheet Mono turner MD Work Phone: [facility] [...] above: Wellness examination (Primary Dx); 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); Stented [...] radiculopathy Start: 09-02-2023 Refill Audra Cisneros cki EQUIPMENT PROCESSER STORAGE-OBSERVER ELECTRICAL PROSPECTING Work Phone: [facility] Comment on above: Med Refill [...] Data Provider Start: 10-19-2022 Colonoscopy Audra hodges EQUIPMENT PROCESSER STORAGE-OBSERVER ELECTRICAL PROSPECTING Work Phone: Plan of Treatment Date Care Activity Detail Author Start: 05-24-2026 Tobacco Screening Tobacco Screening [facility] Start: 10-19-2025 Screening for malign ant neoplasm of colon Colonoscopy [facility] Start: 10-06-2025 Tobacco Screening Tobacco Screening [facility] Start: 07-04-2025 End: 07-04-2025 Patient encounter procedure 07/04/2025 9:00 AM EDT Office Visit [facility] [address] [place] [id number] Mono Knowles MD [address] [place] [address] [facility] Start: 06-25-2025 End: 06-25-2025 Patient encounter procedure [facility] Comment on above: Arrived Start: 06-21-2025 End: 06-21-2025 Patient encounter procedure 06/21/2025 9:00 AM EDT Office Visit [facility] [address] [place] [address] Kami Thomason, BUILDING ASSOCIATE [address] [place] [address] Arrived [facility] Comment on above: Arrived Start: 06-06-2025 End: 06-06-2025 Patient encounter procedure [facility] Start: 05-18-2025 Tobacco Screening Tobacco Screening [facility] Start: 05-17-2025 End: 05-17-2025 Patient encounter procedure 05/17/2025 9:00 AM EDT Office Visit [facility] [address] [facility] [address] [place] [address] Mono Knowles MD [address] [facility] [address] [place] [address] [facility] Start: 05-14-2025 COVID-19 Vaccine () COVID-19 Vaccine () [facility] Start: 05-14-2025 Influenza vaccination N [facility] Start: 03-07-2025 End: 03-07-2025 Patient encounter procedure [facility] Comment on above: Arrived Start: 02-28-2025 End: 02-28-2025 Patient encounter procedure 02/28/2025 10:30 AM EDT Office Visit [facility] [address] [facility] [address] [place] [address] Mono Knowles MD [address] [facility] [address] [place] [address] Arrived [facility] Comment on above: Arrived Start: 02-12-2025 End: 02-12-2025 Patient encounter procedure [facility] Comment on above: Arrived Start: 01-08-2025 End: 01-08-2025 Patient encounter procedure 01/08/2025 3:45 PM EDT Office Visit [facility] [place] [address] [place] [address] Don Fenton DO [address] [place], [place] [id number] [facility] Start: 12-27-2024 End: 12-27-2024 Patient encounter procedure 12/27/2024 2:20 PM EDT Office Visit [facility] [address] [place] [phone] Norma Jin MD [address] [place] [address] [facility] Start: 12-19-2024 End: 12-19-2024 Patient encounter procedure 12/19/2024 10:30 AM EDT Procedure Visit [facility] [address] [facility] [address] [place] [phone] Don Fenton DO [address] [place], [place] [id number] [facility] Start: 12-08-2024 Adult BMI Screening Adult BMI Screen ing [facility] Start: 12-08-2024 Tobacco Screening Tobacco Screening [facility] Start: 12-06-2024 End: 12-06-2024 Patient encounter procedure [facility] Start: 12-05-2024 End: 12-05-2024 Patient encounter procedure 12/05/2024 1:30 PM EDT Office Visit [facility] [address] [facility] [address] [place] [phone] Neli Neal, EQUIPMENT PROCESSER STORAGE-OBSERVER ELECTRICAL PROSPECTING [address] [place] [phone] [facility] Start: 2024 End: 2024 Patient encounter procedure 2024 11:30 AM EDT Procedure Visit [facility] [address] [place] [phone] Tyler Sanchez MD [address] [place], [place] [id number] [facility] Start: 11-22-2024 End: 11-22-2024 Patient encounter procedure 11/22/2024 8:30 AM EDT Office Visit [facility] [address] [place] [address] Norma Jin MD [address] [place] [address] [facility] Start: 11-20-2024 End: 11-20-2024 Patient encounter procedure 11/20/2024 9:15 AM EDT Office Visit [facility] [address] [place] [address] Mono Knowles MD [address] [place] [address] [facility] Start: 11-16-2024 End: 11-16-2024 Patient encounter procedure [facility] Comment on above: Arrived Start: 11-09-2024 End: 11-09-2024 ambulatory 11/09/2024 9:00 AM EST Evaluation [facility] [address] [place] [address] Kevin Renteria, PT [address] [place] [address] [facility] Start: 11-08-2024 End: 11-08-2024 [...] Evaluation [facility] [address] [facility] [address] [place] [address] Kevin Renteria, PT [address] [facility] [address] [place] [address] [facility] Start: 10-25-2024 Tobacco Screening Tobacco Screening [facility] Start: 10-09-2024 End: 10-09-2024 Patient encounter procedure 10/09/2024 11:30 AM EST Office Visit [facility] [address] [place] [address] Mono Knowles MD [address] [place] [address] [facility] Start: 09-22-2024 End: 09-22-2025 [...] [address] [place] [address] Marylou Larry PA [address] [place] [address] [facility] Start: 09-18-2024 End: 09-18-2024 Patient encounter procedure 09/18/2024 9:00 AM EST Office Visit [facility] [address] [place] [address] Mono Knowles MD [address] [place] [address] [facility] Start: 08-30-2024 End: 08-30-2024 Patient encounter procedure 08/30/2024 9:15 AM EST Office Visit [facility] [address] [place] [address] Mono Knowles MD [address] [place] [address] Arrived [facility] Comment on above: Arrived Start: 07-12-2024 End: 07-12-2024 Patient encounter procedure [facility] Comment on above: Arrived Start: 06-30-2024 End: 06-30-2024 Patient encounter procedure 06/30/2024 10:00 AM EDT Office Visit [facility] [address] [place] [address] Mono Knowles MD [address] [place] [address] [facility] Start: 06-26-2024 End: 06-26-2026 [...] [address] [place] [address] Mono Knowles MD [address] [place] [address] [facility] Start: 06-07-2024 End: 06-07-2024 Patient encounter procedure 06/07/2024 2:00 PM EDT Office Visit [facility] [address] [place] [address] Mono Knowles MD [address] [place] [address] [facility] Start: 05-25-2024 End: 05-25-2024 Patient encounter procedure 05/25/2024 11:00 AM EDT Office Visit [facility] [address] [place] [address] Mono Knowles MD [address] [place] [address] [facility] Start: 05-24-2024 End: 05-24-2024 Patient encounter procedure 05/24/2024 9:00 AM EDT Office Visit [facility] [address] [place] [address] Yvette Ray, BUILDING ASSOCIATE [address] [place] [address] Arrived [facility] Comment on above: Arrived Start: 05-14-2024 Influenza vaccination [facility] Start: 05-10-2024 End: 05-10-2024 Patient encounter procedure 05/10/2024 10:15 AM EDT Office Visit [facility] [address] [facility] [address] [place] [address] Mono Knowles MD [address] [facility] [address] [place] [address] Arrived [facility] Comment on above: Arrived Start: 02-04-2024 Medicare Annual Well ness (AWV) Medicare Annual Wellness (AWV) [facility] Start: 01-03-2024 End: 01-03-2024 Patient encounter procedure 01/03/2024 9:30 AM EDT Office Visit [facility] [address] [facility] [address] [place] [address] Mono Knowles MD [address] [facility] [address] [place] [address] [facility] Start: 12-09-2023 End: 12-09-2023 Patient encounter procedure 12/09/2023 8:30 AM EDT Office Visit [facility] [address] [place] [address] Racheal Chi MD [address] [place], [place] [phone] Adrian Son MD [address] [facility] [place] [phone] [facility] Start: 11-26-2023 End: 11-26-2023 Patient encounter procedure 11/26/2023 11:15 AM EDT Office Visit [facility] [address] [place] [address] Racheal Chi MD [address] [place] [facility] [place] [address] [facility] Start: 11-17-2023 End: 11-17-2023 Patient encounter procedure 11/17/2023 11:15 AM EST Office Visit [facility] [address] [place] [address] Racheal Chi MD [address] [place] [address] Priyanka Carbajal MD [address] [place] [address] [facility] Start: 10-27-2023 End: 10-27-2024 Comprehensive metabolic 2000 panel - Serum or Plasma Comprehensive metabolic panel Lab Routine Wellness examination 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) Expected: 10/27/2023 (Approximate), Expires: 10/27/2024 [facility] Comment on above: Expected: 10/27/2023 (Approximate), Expires: 10/27/2024 Start: 10-27-2023 End: 10-27-2024 Lipid 1996 panel - Serum or Plasma Lipid panel Lab Routine Wellness examination 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) Expected: 10/27/2023 (Approximate), Expires: 10/27/2024 [facility] Comment on above: Expected: 10/27/2023 (Approximate), Expires: 10/27/2024 Start: 10-27-2023 End: 10-27-2024 TSH W/REFLEX TO FT4 TSH W/REFLEX TO FT4 Lab Routine Wellness examination 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) Expected: 10/27/2023 (Approximate), Expires: 10/27/2024 [facility] Comment on above: Expected: 10/27/2023 (Approximate), Expires: 10/27/2024 Start: 10-27-2023 End: 10-27-2023 Patient encounter procedure 10/27/2023 9:15 AM EST Office Visit [facility] [address] [facility] [address] [place] [address] Mono Knowles MD [address] [facility] [address] [place] [address] Arrived [facility] Comment on above: Arrived Start: 10-22-2023 COVID-19 Vaccine ( season) COVID-19 Vaccine () [facility] Start: 10-19-2023 Adult BMI Screening Adult BMI Screen ing [facility] Start: 10-19-2023 Tobacco Screening Tobacco Screening [facility] Start: 09-30-2023 End: 09-30-2023 Patient encounter procedure 09/30/2023 9:30 AM EST Office Visit [facility] [address] [place] [address] Racheal Chi MD [address] [place] [address] [facility] Start: 05-14-2023 COVID-19 Vaccine ( season) COVID-19 Vaccine ( season) [facility] Start: 05-14-2023 Influenza vaccination Influenza Vacc ine [facility] Start: 11-27-2021 DTaP,Tdap and Td Vac cines (2 - Td or Tdap) DTaP,Tdap and Td Vaccines (2 - Td or Tdap) [facility] Start: 12-01-2011 Abdominal aortic ane urysm screening Abdominal Aortic Aneurysm (AAA) Screen [facility] Start: 12-01-2011 Fall Risk Screening Fall Risk Screen ing [facility] Start: 1964 Adult BMI Follow Up Plan Adult BMI F ollow Up Plan [facility] Start: 1958 [facility] Start: 1945 Medicare Annual Well ness Visit Medicare Annual Wellness Visit [facility] CBC W Auto Different ial panel - Blood CBC and differential Lab Routine Wellness examination Atherosclerosis of [place] coronary artery of [place] heart with stable angina pectoris ([facility]/HCC) Ordered: 10/27/2023 [facility] Mobile Authentication Work Phone: Comment on above: Ordered: 10/27/2023 End: 08-24-2025 Lead, blood Lead, blood Lab Routine Elevated blood lead level 1 Occurrences starting 08/24/2024 until 08/24/2025 SpecifiedBy Work Phone: Comment on above: 1 Occurrences starti ng 08/24/2024 until 08/24/2025 XR Chest 2 Views XR chest 2 view s Imaging Routine Subacute cough Ordered: 05/10/2024 [facility] Mobile Authentication Work Phone: Comment on above: Ordered: 05/10/2024 Immunizations Immunization Date Immunization Notes Care Provider Roberto [facility] 05-17-2024 influenza, high dose seasonal, preservative-free Karol Wednesday WOMEN'S ACTIVITIES ADVISER Work Phone: [facility] 05-17-2024 influenza virus vacc ine, unspecified formulation Summer Kay MA [facility] 11-17-2023 ABRYSVO - Respirator y syncytial virus (RSV), vaccine, bivalent, protein subunit RSV prefusion F, diluent reconstituted, 0.5 mL, PF Mono Knowles MD Work Phone: [facility] 07-12-2023 Influenza, High-dose Seasonal, Quadrivalent, Preservative Free Mono Knowles MD Work Phone: [facility] 07-12-2023 influenza virus vacc ine, unspecified formulation Christin Bazzi RN [facility] 12-22-2022 zoster vaccine recombinant Mono Knowles MD Work Phone: [facility] 06-17-2022 Influenza, High-dose Seasonal, Quadrivalent, Preservative Free Mono Knowles MD Work Phone: [facility] 06-17-2022 influenza virus vacc ine, unspecified formulation Audra Bowen EQUIPMENT PROCESSER STORAGE-OBSERVER ELECTRICAL PROSPECTING Work Phone: [facility] 06-18-2021 Influenza, High-dose Seasonal, Quadrivalent, Preservative Free Mono Knowles MD Work Phone: [facility] 08-01-2020 zoster vaccine recombinant Mono Knowles MD Work Phone: [facility] 05-30-2020 influenza, high dose seasonal, preservative-free Mono Knowles MD Work Phone: [facility] 06-14-2019 influenza, high dose seasonal, preservative-free Mono Knowles MD Work Phone: [facility] 09-09-2018 influenza, seasonal, injectable, preservative free Mono Knowles MD Work Phone: [facility] 01-31-2018 pneumococcal polysaccharide vaccine, 23 valent Mono Knowles MD Work Phone: [facility] 06-23-2017 influenza, high dose seasonal, preservative-free Mono Knowles MD Work Phone: [facility] 05-14-2016 seasonal influenza, intradermal, preservative free Mono Knowles MD Work Phone: [facility] 10-04-2015 influenza, injectabl e, quadrivalent, preservative free Mono Knowles MD Work Phone: [facility] 07-15-2015 seasonal influenza, intradermal, preservative free Mono Knowles MD Work Phone: [facility] 04-22-2015 pneumococcal conjuga te vaccine, 13 valent Mono Knowles MD Work Phone: [facility] 11-28-2011 tetanus toxoid, redu ria diphtheria toxoid, and acellular pertussis vaccine, adsorbed Mono Knowles MD Work Phone: [facility] Payers Date Payer Category Payer Medicare (Managed Care) JONATHAN DENIS Member Subscriber Plan / Payer (Effective 2019-Present) Name: Hakeem Escobedo Relation to Subscriber: Self Name: Hakeem Escobedo Payer ID: Not on file Group ID: [id number] Type: Not on file Address: [address] [place] [id number] 2019 Medicare [id number] 2019 Medicare [facility] MEDIC[facility] Member Subscriber Plan / Payer (Effective 2019-Present) Name: Hakeem Escobedo Relation to Subscriber: Self Name: Hakeem Escobedo Payer ID: [id number] (NAIC) Group ID: [id number] Type: Not on file Address: [address] [id number] 2019 Medicare [id number] 2018 Medicare [id number] 2017 Medicaid [id number] 2017 Medicaid [id number] 2017 Medicare [id number] 1994 Medicare [id number] 1959 Self-pay 1946 Unknown [id number] 2..840.1.268885.3.579.2. 593 1946 Unknown [id number] 2.16840.1.179887.3.579.2. 1286 1946 Unknown [id number] 2.16.840.1.889859.3.579.2. 1286 1946 Unknown [id number] 2.16840.1.523178.3.579.2. 1286 1946 Unknown [id number] 2.16.840.1.772085.3.579.2. 1285 1946 Unknown [id number] 2.16.840.1.537251.3.579.2. 1285 1946 Unknown [id number] 2.16.840.1.610753.3.579.2. 128 1946 Unknown [id number] 2.840.1.868548.3.579.2. 1285 1946 Unknown [id number] 2..840.1.677851.3.579.2. 1285 1946 Unknown [id number] 2.840.1.986110.3.579.2. 1285 1946 Unknown [id number] 2.840.1.103948.3.579.2. 1285 1946 Unknown [id number] 2.840.1.710792.3.579.2. 128 1946 Unknown [id number] 2.840.1.477919.3.579.2. 1285 1946 Unknown [id number] .840.1.849495.3.579.2. 128 1946 Unknown [id number] .840.1.418891.3.579.2. 1258 1946 Unknown [id number] .840.1.342655.3.579.2. 125 1946 Unknown [id number] 2.16.840.1.669029.3.579.2. 1258 1946 Unknown [id number] 2.16.840.1.229463.3.579.2. 1258 1946 Unknown [id number] 2.840.1.074431.3.579.2. 1258 1946 Unknown [id number] 2.16.840.1.566187.3.579.2. 1259 1946 Unknown [id number] 2.16.840.1.544649.3.579.2. 1258 1946 Unknown [id number] 2.16.840.1.899931.3.579.2. 9 1946 Unknown [id number] 2.16.840.1.124882.3.579.2. 9 1946 Unknown [id number] 2.16.840.1.511866.3.579.2. 1258 1946 Unknown [id number] 2.16.840.1.831418.3.579.2. 1258 1946 Unknown [id number] 2.16.840.1.213628.3.579.2. 1258 1946 Unknown [id number] 2.16.840.1.823830.3.579.2. 1258 1946 Unknown [id number] 2.16.840.1.050342.3.579.2. 1258 1946 Unknown [id number] 2.16.840.1.004186.3.579.2. 1259 Social History Date Type Detail Facility Start: 02-02-2023 End: 11-01-2024 Tobacco smoking status [facility] Ex-smoker [facility] Start: 09-13-2007 End: 09-13-2011 History of tobacco use Current smoker [facility] Start: 09-13-2007 End: 09-13-2011 History of tobacco use Cigarette Smoker [facility] Start: 02-02-2023 End: 11-01-2024 Tobacco use and exposure Smokeless tobacco non-user [facility] Start: 07-26-2023 End: 06-25-2025 Alcohol intake Lifetime non-drinker (finding) [facility] Start: 06-04-2023 End: 06-21-2025 History of Social function [facility] Start: 06-04-2023 End: 06-21-2025 Humiliation, Afraid, Rape, and Kick questionnaire [HARK] [facility] Within the last year , [...] a typical day? Patient does not drink [facility] Do you feel stress - tense, restless, nervous, or anxious, or unable to sleep at night because your mind is troubled all the time - these days [OSQ] To some extent [facility] (I/We) worried wheth er (my/our) food would run out before (I/we) got money to buy more. Never true [facility] Start: 02-02-2023 Tobacco Comment Quit smoking 1 0 years ago [facility] Start: 02-02-2023 Alcohol Comment Caffeine 1-2 cups/da y [facility] Start: 1945 Sex Assigned At Not on file [facility] Start: 10-20-2022 End: 05-24-2025 Alcohol intake Current non-drinker of alcohol (finding) [facility] Start: 04-18-2015 Sex Male (finding) [facility] How often do you nee [...] Health Quest ionnaire 2 item (PHQ-2) [Reported] [facility] 06-21-2025 PHQ-9 quick depressi on assessment panel [Reported.PHQ] [facility] 03-07-2025 Patient Health Quest ionnaire 2 item (PHQ-2) [Reported] [facility] 02-28-2025 Patient Health Quest ionnaire 2 item (PHQ-2) [Reported] [facility] Clinical Notes 10-27-2023 to 06-25-2025 Mono Knowles MD - 06/25/2025 11:30 AM EDTKami Thomason NP - 06/21/2025 9:00 AM EDTPatient InstructionsTelephone Encounter - Zee Alvarez - 06/15/2025 8:59 AM EDT Note Date & Type Note Facility 06-25-2025 History of Present illness Narrative Images from the original note were not included. HPI Follow-up Additional comments: Admitted to [facility] 05/26/25 dx: TIA,HTN discharged from [facility] to [facility] discharged home 06/15/25 Last edited by Odalys Villagomez LPN on 06/25/2025 11:35 AM. Subjective Patient ID: Hakeem Escobedo is a 79 y.o. male who presents for Follow-up (Admitted to [facility] 05/26/25 dx: TIA,HTN discharged from [facility] to [facility] discharged home 06/15/25 ) and Bronchitis. Flowsheet Row Patient Outreach from 06/19/2025 in [facility] with Shelby Millard LPN Hospital Information ED, Hospital or Prison Facility Discharge? Prison Facility Patient has been contacted within two business days of discharge Yes Have two attempts been made to contact the patient within two business days of being discharged? Yes Discharge Date 06/15/25 Discharged To: Home Setting Prison Facilities [facility] Admission Date 05/30/25 Medications Discharge medications reviewed [...] mouth at bedtime 100 capsule 3 HYDROcodone-acetaminophen ([place]) 10-325 MG tablet Take 1 tablet by [...] superimposed on stage 3a chronic kidney disease ([facility]) 09/20/2020 Antral ulcer 2016 Anxiety Arthritis [...] 07/02/2025) for Recheck. documented in this encounter [facility] 06-21-2025 History of Present illness Narrative Images [...] mouth at bedtime 100 capsule 3 HYDROcodone-acetaminophen ([place]) 10-325 MG tablet Take 1 tablet by [...] at bedtime 30 tablet 2 [DISCONTINUED] HYDROcodone-acetaminophen ([place]) 10-325 MG tablet Take 1 tablet by [...] follow-ups on file. documented in this encounter [facility] 06-21-2025 Instructions Kami Thomason NP - 06/21/2025 9:00 AM EDT Cefdinir is added today. Advised to start mucinex 600 mg bid while on the cefdinir. Continue benzonatate prn documented in this encounter [facility] 06-15-2025 Telephone encounter Note HYDROcodone-acetaminophen ([place]) 10-325 MG tablet [facility] [place] [facility] 06-15-2025 Miscellaneous Notes HYDROcodone-acetaminophen ([place]) 10-325 MG tablet [facility] [place] documented in this encounter [facility] 06-06-2025 Telephone encounter Note Per Dr. Knowles, they will need to speak to the medical billing supervisor at the [place]. Dr. Knowles does not have privileges there. [facility] 06-06-[address] Knowles, they will need to speak to the medical billing supervisor at the [place]. Dr. Knowles does not have privileges there. [...] asked for us to call the number [phone]. [facility] said that we have to ask for pablo on the 3rd floor nursing station. documented in this encounter [facility] 06-05-2025 Telephone encounter Note Patient is in [place] for physical therapy but they need Dr. Knowles to call up there because they asked for them to release him because he is walking and talking really well. They said if he is already walking and everything is fine that the insurance will not pay for it. They asked for us to call the number [phone]. [facility] said that we have to ask for pablo on the 3rd floor nursing station. [facility] 05-26-2025 Miscellaneous Notes NATHAN Vick from [facility] requesting medical records from ER visit 05/24/25. [employer] accessed and records faxed to [phone] documented in this encounter [facility] 05-26-2025 Telephone encounter Note NATHAN Vick from [facility] requesting medical records from ER visit 05/24/25. Epic accessed and records faxed to [phone] [facility] 05-26-2025 Miscellaneous Notes Contract: [facility] [phone] [facility] ER [phone] FAX Attn Nicanor Re all records from visit at [facility] 05/25 Records sent to Attn: Nicanor for all records from visit to ED [facility] 05/24 documented in this encounter [facility] 05-26-2025 Telephone encounter Note Contract: [facility] [phone] [facility] [phone] FAX Attn Nicanor Re all records from visit at [facility] 05/25 [facility] 05-26-2025 Telephone encounter Note Records sent to Attn: Nicanor for all records from visit to ED [facility] 05/24 [facility] 05-15-2025 Telephone encounter Note Xanax already sent. [facility] 05-15-2025 Miscellaneous Notes Xanax already sent. documented in this encounter [facility] 05-15-2025 Telephone encounter Note OARRS reviewed, Rx sent into patient's pharmacy. [facility] 05-15-2025 Miscellaneous Notes [facility]AR[facility] reviewed, Rx sent into patient's pharmacy. documented in this encounter [facility] 05-09-2025 Telephone encounter Note OARRS reviewed, Rx sent into patient's pharmacy. [facility] 05-09-2025 Miscellaneous Notes OARRS reviewed, Rx sent into patient's pharmacy. HYDROcodone-acetaminophen ([place]) 10-325 [facility] 05-09-2025 Telephone encounter Note HYDROcodone-acetaminophen ([place]) 10-325 [facility] 04-11-2025 Telephone encounter Note OARRS reviewed, Rx sent into patient's pharmacy. [facility] 04-11-2025 Miscellaneous Notes OARRS reviewed, Rx sent into patient's pharmacy. documented in this encounter [facility] 04-10-2025 Telephone encounter Note OARRS reviewed, Rx sent into patient's pharmacy. [facility] 04-10-2025 Miscellaneous Notes OARRS reviewed, Rx sent into patient's pharmacy. HYDROcodone-acetaminophen ([place]) 10-325 MG tablet [facility] [place] documented in this encounter [facility] 04-10-2025 Telephone encounter Note HYDROcodone-acetaminophen ([place]) 10-325 MG tablet [facility] [place] [facility] 03-14-2025 Telephone encounter Note Received fax from [facility]. Last [place] Rx was post dated and filled on 03/13. The Rx recently sent will before it is due. Will let it and send in a new script once the patient is due for the [place]oa to be refilled. [facility] 03-14-2025 Miscellaneous Notes Received fax from [facility]. Last [place] Rx was post dated and filled on 03/13. The Rx recently sent will before it is due. Will let it and send in a new script once the patient is due for the [place] to be refilled. documented in this encounter [facility] 03-14-2025 Telephone encounter Note Carafate sent. [facility] 03-14-2025 Miscellaneous Notes Carafate sent. documented in this encounter [facility] 03-13-2025 Telephone encounter Note OARRS reviewed, Rx sent into patient's pharmacy. [facility] 03-13-2025 Miscellaneous Notes [facility]AR[facility] reviewed, Rx sent into patient's pharmacy. documented in this encounter [facility] 03-07-2025 History of Present illness Narrative [...] AT BEDTIME 30 tablet 0 [DISCONTINUED] HYDROcodone-acetaminophen ([place]) 10-325 MG tablet Take 1 tablet by [...] superimposed on stage 3a chronic kidney disease ([facility]) 09/20/2020 Antral ulcer 2016 Anxiety Arthritis [...] Cervical stenosis of spinal canal - HYDROcodone-acetaminophen ([place]) 10-325 MG tablet; Take 1 tablet by [...] for Routine F/U. documented in this encounter [facility] 02-28-2025 History of Present illness Narrative [...] wheezing. EKG was done on 09/11/24 at [facility]. Over the past 2 weeks, how often [...] mouth at bedtime 100 capsule 3 HYDROcodone-acetaminophen ([place]) 10-325 MG tablet Take 1 tablet by [...] superimposed on stage 3a chronic kidney disease ([facility]) 09/20/2020 Antral ulcer 2016 Anxiety Arthritis [...] C4-C5 COLONOSCOPY 2010 COLONOSCOPY 01/27/2019 Colonoscopy & E[place] COLONOSCOPY W/ POLYPECTOMY 08/2020 [place] (tubulovillous adenoma) [...] fail to improve. documented in this encounter [facility] 02-14-2025 Telephone encounter Note OARRS reviewed, Rx sent into patient's pharmacy. [facility] 02-14-2025 Miscellaneous Notes OAR[facility] reviewed, Rx sent into patient's pharmacy. documented in this encounter [facility] 02-12-2025 History of Present illness Narrative [...] and Wednesday. 30 capsule 0 [DISCONTINUED] HYDROcodone-acetaminophen ([place]) 10-325 MG tablet Take 1 tablet by [...] on stage 3a chronic kidney disease (HCC) ([facility]) 09/20/2020 Antral ulcer 2016 Anxiety Arthritis CAD (coronary artery disease) ([facility]) Colon polyp 2019 Confusion 09/16/2020 Constipation 09/28/2017 COVID-19 09/20/2020 Diverticulosis 2019 Gastritis 2019 Hiatal hernia 2019 History of gastric ulcer Hypertension ([facility]) Injury to penis 06/06/2021 Traumatic rhabdomyolysis ([facility]) 09/20/2020 Tubulovillous adenoma polyp of [...] compared to the equimolar-standardized total PSA ([place]). Comparison of serial PSA results should be [...] Cervical stenosis of spinal canal - HYDROcodone-acetaminophen ([place]) 10-325 MG tablet; Take 1 tablet by [...] Controlled Med Review. documented in this encounter [facility] 01-31-2025 Telephone encounter Note Lucina sent to [facility] 01-31-2025 Miscellaneous Notes Lucina sent to [facility] documented in this encounter [facility] 01-08-2025 Telephone encounter Note HYDROcodone-acetaminophen ([place]) 10-325 MG tablet [facility] 01-08-2025 Miscellaneous Notes HYDROcodone-acetaminophen ([place]) 10-325 MG tablet [facility] [place] documented in this encounter [facility] 12-06-2024 History of Present illness Narrative [...] mouth at bedtime 100 capsule 3 HYDROcodone-acetaminophen ([place]) 10-325 MG tablet Take 1 tablet by [...] Knowles MD as PCP - Jonathan Johnston WOMEN'S ACTIVITIES ADVISER Medicare Annual Visit Over the past 2 [...] Do you have a medical power of state's attorney?: No Objective : BP 128/76 Pulse 62 [...] Cervical stenosis of spinal canal - HYDROcodone-acetaminophen ([place]) 10-325 MG tablet; Take 1 tablet by [...] hemorrhage Benign essential hypertension (CMS/HCC) 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 Electronically signed by Mono Knowles MD on December 06, 2024 documented in this encounter [facility] 12-04-2024 Miscellaneous Notes Called patient to remind them to bring their most current copy of their medication list with them to their appt. Unable to reach due to voice mail not set up. documented in this encounter [facility] 12-04-2024 Telephone encounter Note Called patient to remind them to bring their most current copy of their medication list with them to their appt. Unable to reach due to voice mail not set up. [facility] 11-16-2024 History of Present illness Narrative Images from the original note were not included. Reason for Appointment: EMG Patient: Hakeem Escobedo : 1945 EMG Computer: [employer] Referring Physician: Dr. Don Fenton EMG: [employer] outside laborer: Malou Novak CMA Office Location: [place] Reason for EMG: c/o balance difficulty. Difficulty swallowing. Denies symptoms in the arms. No hx of DM, takes Eliquis. Comments: Procedure explained to the patient who expressed understanding. documented in this encounter [facility] 11-09-2024 Telephone encounter Note HYDROcodone-acetaminophen ([place]) 10-325 MG tablet [facility] [place] [facility] 11-09-2024 Miscellaneous Notes HYDROcodone-acetaminophen ([place]) 10-325 MG tablet [facility] [place] documented in this encounter [facility] 11-08-2024 History of Present illness Narrative Images from the original note were not included. Chief complaint: Spinal stenosis and language disturbance Subjective Hakeem Escobedo, 78 y.o., male Patient presents today for a neurologic consult at the request of Dr. Knowles for CVA, spinal stenosis. He is accompanied by his life partner. Patient is a resident at [facility] in [place]. Patient has his stroke May 19. 2023. [...] on stage 3a chronic kidney disease (HCC) ([facility]) 09/20/2020 Antral ulcer 2016 Anxiety Arthritis CAD (coronary artery disease) ([facility]) Colon polyp 2019 Confusion 09/16/2020 Constipation 09/28/2017 COVID-19 09/20/2020 Diverticulosis 2019 Gastritis 2019 Hiatal hernia 2019 History of gastric ulcer Hypertension ([facility]) Injury to penis 06/06/2021 Traumatic rhabdomyolysis ([facility]) 09/20/2020 Tubulovillous adenoma polyp of colon 2019 Past Surgical History: Procedure Laterality Date CATARACT EXTRACTION Right 01/2021 CERVICAL DISCECTOMY 08/16/2017 C4-C5 COLONOSCOPY 2010 COLONOSCOPY 01/27/2019 Colonoscopy & [place] COLONOSCOPY W/ POLYPECTOMY 08/2020 [place] (tubulovillous adenoma) [...] , wrist extensors , wrist flexor , commercial real estate agent strength 5/5. LUE Strength deltoid , biceps , triceps , wrist extensors , wrist flexor , commercial real estate agent strength 5/5. RLE Strength illopsoas, quadriceps, [...] reflex 2+ . Ferrari's sign negative. Coordination: Opphek-mh-[id number] testing and rapid alternating movements are normal Gait: Patient ambulates with a cane Review and summary of old records: Patient was seen in the emergency department at [place] in October 06, 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 However, the patient's reflexes do seem [...] referral to tertiary care center such as [facility] for further evaluation treatment depending on [...] and return instructions documented in this encounter [facility] 11-02-2024 Telephone encounter Note Rx was sent. [facility] 11-02-2024 Miscellaneous Notes Rx was sent. Pt states that he is wheezing really bad. He needs something for his chest. They'd like it sent to [facility] [place] documented in this encounter [facility] 11-01-2024 Telephone encounter Note Pt states that he is wheezing really bad. He needs something for his chest. [facility] 10-31-2024 Telephone encounter Note [facility] for PT Eval; 3 attempt. [facility] 10-31-2024 Miscellaneous Notes [facility] for PT Eval; 3 attempt. Tried to contact to remind / confirm PT Eval today that is on its' 3rd attempt; 2/3 & 2/13 both were cx. It rang into voicemail and indicated not set up; unable to contact. documented in this encounter [facility] 10-31-2024 Telephone encounter Note Tried to contact to remind / confirm PT Eval today that is on its' 3rd attempt; 2/3 & 2/13 both were cx. It rang into voicemail and indicated not set up; unable to contact. [facility] 10-25-2024 Telephone encounter Note OARRS reviewed, Rx sent into patient's pharmacy. [facility] 10-25-2024 Miscellaneous Notes OARRS reviewed, Rx sent into patient's pharmacy. documented in this encounter [facility] 10-21-2024 Miscellaneous Notes OV 12/09/23 documented in this encounter [facility] 10-21-2024 Telephone encounter Note OV 12/09/23 [facility] 10-19-2024 Telephone encounter Note Contacted re: KATHINS for PT Eval and he rs 2/13 @ 11 w/ Kevin Renteria, PT. [facility] 10-19-2024 Miscellaneous Notes Contacted re: [facility] for PT Eval and he rs 2/13 @ 11 w/ Kevin Renteria, PT. Tried to contact re: KATHINS for his PT Eval; unable to lm re: no voicemail set-up. documented in this encounter [facility] 10-16-2024 Telephone encounter Note Tried to contact re: KATHINS for his PT Eval; unable to lm re: no voicemail set-up. [facility] 10-09-2024 History of Present illness Narrative Images from the original note were not included. HPI Follow-up Additional comments: Pain med Med Refill Additional comments: [facility]codone--[facility] [place] observation follow up Additional comments: Pt was admitted to [facility] 10/06/24 for observation for leg weakness they discharged him home 10/07/24 no med changes they advised pt he may need an MRI discuss changing referrals Additional comments: Pt was referred to neuro through [facility] and speech therapy [facility] he does not want to use any [facility] providers he would like new referrals sent to use [facility] Last edited by Odalys Villagomez LPN on 10/09/2024 11:25 AM. Subjective Patient ID: Hakeme Escobedo is a 78 y.o. male who presents for Follow-up (Pain med), Dysphagia, Med Refill (Hydrocodone--[facility] [place]), observation follow up (Pt was admitted to [facility] 10/06/24 for observation for leg weakness they discharged him home 10/07/24 no med changes they advised pt he may need an MRI), and discuss changing referrals (Pt was referred to neuro through [facility] and speech therapy through [facility] he does not want to use any [facility] providers he would like new referrals sent to use [facility]). Subjective Patient here for follow-up of elevated [...] at bedtime 30 tablet 2 [DISCONTINUED] HYDROcodone-acetaminophen ([place]) 10-325 MG tablet Take 1 tablet by [...] Cervical stenosis of spinal canal - HYDROcodone-acetaminophen ([place]) 10-325 MG tablet; Take 1 tablet by mouth every 6 (six) hours if needed for severe pain Spinal stenosis of lumbar region with neurogenic claudication - Ambulatory referral to Physical Therapy; Future - Ambulatory referral to Neurology; Future Follow up in about 6 weeks (around 11/20/2024) for Routine F/U. documented in this encounter [facility] 09-22-2024 History of Present illness Narrative [...] are doing , this was found at [facility] when they did CT they stated he [...] Flowsheet Row Patient Outreach from 09/19/2024 in [facility] with Karol Wednesday, WOMEN'S ACTIVITIES ADVISER Hospital Information ED, Hospital or Prison Facility Discharge? ED Patient has been contacted within 1 week of being seen in the ED Yes Diagnosis generalized weakness Discharge Date 09/14/24 Discharged To: Home Setting Discharge Hospital [facility] Engagement Call Start Time 810 Admission Date [...] mouth at bedtime 100 capsule 3 HYDROcodone-acetaminophen ([place]) 10-325 MG tablet Take 1 tablet by [...] before bedtime. 60 tablet 3 [DISCONTINUED] HYDROcodone-acetaminophen ([place]) 10-325 MG tablet Take 1 tablet by [...] on stage 3a chronic kidney disease (HCC) ([facility]) 09/20/2020 Antral ulcer 2016 Anxiety Arthritis CAD (coronary artery disease) ([facility]) Colon polyp 2019 Confusion 09/16/2020 [...] for this visit: IRINA (acute kidney injury) ([facility]) - Basic metabolic panel; Future Patient has [...] Appointment As Scheduled. documented in this encounter [facility] 09-14-2024 Note XR CHEST 1 VW CLINICAL INFORMATION: . weakness. TECHNIQUE/PROCEDURE: Chest radiograph, single view. COMPARISON: Prior chest radiographs, most recently 08/10/2024 FINDINGS: No tracheal deviation. Cardiac and mediastinal contours are normal. No pneumothorax or free air. No pleural effusion or focal consolidation. IMPRESSION: * No radiographic evidence of acute cardiopulmonary disease. Finalized by William Javier MD on 09/14/2024 12:14 PM [facility] 08-31-2024 Telephone encounter Note Rx sent. [facility] 08-31-2024 Miscellaneous Notes Rx sent. documented in this encounter [facility] 08-31-2024 History of Present illness Narrative [facility] called this morning. Pt is wheezing and coughing and was up all night coughing. She is asking if you could send something in for pt to help with this wheezing and coughing issue. Jessica in [place]. He does not want to go to ER. She states pt talked with you about it at his appt the other day. documented in this encounter [facility] 08-30-2024 History of Present illness Narrative Images from the original note were not included. HPI Follow-up Additional comments: Recent hospitalization 08/10/24-08/12/24 at [facility] dx: CVA discharged home advised to stop ASA Med Refill Additional comments: Gabapentin--[facility] Results Additional comments: Both MRI's Last edited by Odalys Villagomez LPN on 08/30/2024 9:28 AM. Subjective Patient ID: Hakeem Escobedo is a 78 y.o. male who presents for Follow-up (Recent hospitalization 08/10/24-08/12/24 at [facility] dx: CVA discharged home advised to stop ASA), Med Refill (Gabapentin--[facility] [place]), Dysphagia, and Results (Both MRI's). Flowsheet Row Patient Outreach from 08/15/2024 in [facility] with Karol Joyner LPN Hospital Information ED, Hospital or Prison Facility Discharge? Hospital Patient has been contacted within two business days of discharge Yes Diagnosis CVA Discharge Date 08/12/24 Discharged To: Home Setting Discharge Hospital [facility] Engagement Call Start Time 904 Admission Date [...] mouth at bedtime 100 capsule 3 HYDROcodone-acetaminophen ([place]) 10-325 MG tablet Take 1 tablet by [...] INSTRUCTIONS 21 tablet 0 [DISCONTINUED] nystatin (Mycostatin) 993571 UNIT/ML suspension SWISH AND SWALLOW FIVE MILLILITERS [...] on stage 3a chronic kidney disease (HCC) ([facility]/HCC) 09/20/2020 Antral ulcer 2016 Anxiety Arthritis CAD (coronary artery disease) ([facility]) Colon polyp 2019 Confusion 09/16/2020 Constipation 09/28/2017 COVID-19 09/20/2020 Diverticulosis 2019 Gastritis 2019 Hiatal hernia 2019 History of gastric ulcer Hypertension ([facility]/HCC) Injury to penis 06/06/2021 Traumatic rhabdomyolysis ([facility]/HCC) 09/20/2020 Tubulovillous adenoma polyp of colon [...] for Routine F/U. documented in this encounter [facility] 08-24-2024 Miscellaneous Notes Patient was admitted under our service at [facility] the week of August 10. At the [...] the recommendation for a repeat lab order. Functional Skills Tutor also attempted to contact the patient's PC Dr Mono Knowles at [phone] who is a provider at [facility]. The phone rang and then it stated the number that you are calling is not in service at this time . Emergency contact listed is his spouse and the same phone number is listed for her also. Thank you so much for doing this. documented in this encounter [facility] 08-24-2024 Telephone encounter Note Patient was admitted under our service at [facility] the week of August 10. At the [...] follow up with his PCP for this. [facility] 08-24[facility]24 Telephone encounter Note Attempted to contact the patient, phone rang once and then is stated that voicemail box has not been set up . Letter has been composed and mailed to the patient informing him of his results and the recommendation for a repeat lab order. Functional Skills Tutor also attempted to contact the patient's PC Dr Mono Knowles at [phone] who is a provider at [facility]. The phone rang and then it stated the number that you are calling is not in service at this time . Emergency contact listed is his spouse and the same phone number is listed for her also. [facility] 08-24-2024 Telephone encounter Note Thank you so much for doing this. [facility] 08-17-2024 Telephone encounter Note OARRS reviewed, Rx sent into patient's pharmacy. [facility] 08-17-2024 Miscellaneous Notes OARRS reviewed, Rx sent into patient's pharmacy. HYDROcodone-acetaminophen ([place]) 10-325 MG tablet pt's partner called concerned about the refill being sent in. Stated she spoke with Karol about it. Jessica Caputo documented in this encounter [facility] 08-17-2024 Telephone encounter Note HYDROcodone-acetaminophen ([place]) 10-325 MG tablet pt's partner called concerned about the refill being sent in. Stated she spoke with Karol about it. Jessica Caputo [facility] 08-15-2024 Miscellaneous Notes Workqueue referral for [...] TO THEIR NEW PATIENT APPOINTMENT 1st attempt: Functional Skills Tutor attempted to contact patient and offer to schedule in with our clinic as we have received their new patient referral. Functional Skills Tutor received an automated message stating the following: patient's voicemail box has not been set up yet. 2nd attempt: Functional Skills Tutor attempted to contact patient once more and offer to schedule in with our clinic as we have received their new patient referral. Functional Skills Tutor received an automated message stating the following: patient's voicemail box has not been set up yet. documented in this encounter [facility] 08-15-2024 Telephone encounter Note Workqueue referral [...] INSURANCE INFORMATION TO THEIR NEW PATIENT APPOINTMENT [facility] 08-15-2024 Telephone encounter Note 1st attempt: Functional Skills Tutor attempted to contact patient and offer to schedule in with our clinic as we have received their new patient referral. Functional Skills Tutor received an automated message stating the following: patient's voicemail box has not been set up yet. [facility] 08-15-2024 Telephone encounter Note 2nd attempt: Functional Skills Tutor attempted to contact patient once more and offer to schedule in with our clinic as we have received their new patient referral. Functional Skills Tutor received an automated message stating the following: patient's voicemail box has not been set up yet. [facility] 07-20-2024 Telephone encounter Note OARRS reviewed, Rx sent into patient's pharmacy. [facility] 07-20-2024 Miscellaneous Notes OARRS reviewed, Rx sent into patient's pharmacy. documented in this encounter [facility] 07-19-2024 Telephone encounter Note Is the medrol arnie ok to give pt [facility] 07-19-2024 Miscellaneous Notes Is the medrol arnie ok to give pt documented in this encounter [facility] 07-12-2024 Telephone encounter Note Celebrex sent to [facility] 07-12-2024 Miscellaneous Notes Celebrex sent to [facility] [place] documented in this encounter [facility] 07-12-2024 History of Present illness Narrative [...] BY MOUTH DAILY 100 tablet 3 HYDROcodone-acetaminophen ([place]) 10-325 MG tablet Take 1 tablet by [...] on stage 3a chronic kidney disease (HCC) ([facility]) 09/20/2020 Antral ulcer 2016 Anxiety Arthritis CAD (coronary artery disease) ([facility]) Colon polyp 2019 Confusion 09/16/2020 Constipation 09/28/2017 COVID-19 09/20/2020 Diverticulosis 2019 Gastritis 2019 Hiatal hernia 2019 History of gastric ulcer Hypertension ([facility]) Injury to penis 06/06/2021 Traumatic rhabdomyolysis (CMS/HCC) [...] for Routine F/U. documented in this encounter [facility] 06-29-2024 Telephone encounter Note ALPRAZolam (Xanax) 1 MG tablet to [facility] 06-29-2024 Miscellaneous Notes ALPRAZolam (Xanax) 1 MG tablet to [facility] documented in this encounter [facility] 06-26-2024 History of Present illness Narrative Images from the original note were not included. M HPI Follow-up Additional comments: Admitted [facility] 06/21/24 dx: syncope,suspected cva .hypotension discharged home 06/22/24 no med changes made Med Refill Additional comments: Gabapentin.meclizine-- [facility] Last edited by Odalys Villagomez LPN on 06/26/2024 9:36 AM. Subjective Patient ID: Hakeem Escobedo is a 78 y.o. male who presents for Follow-up (Admitted [facility] 06/21/24 dx: syncope,suspected cva .hypotension discharged home 06/22/24 no med changes made) and Med Refill (Gabapentin.meclizine-- [facility]). Flowsheet Row Patient Outreach from 06/23/2024 in [facility] with Karol WednesdayELAINE Hospital Information ED, Hospital or Prison Facility Discharge? Hospital Patient has been contacted within two business days of discharge Yes Discharge Date 06/22/24 Discharged To: Home Setting Discharge Hospital [facility] Engagement Call Start Time 1330 Admission Date [...] BY MOUTH DAILY 100 tablet 3 HYDROcodone-acetaminophen ([place]) 10-325 MG tablet Take 1 tablet by [...] at bedtime. 90 capsule 3 [DISCONTINUED] HYDROcodone-acetaminophen ([place]) 10-325 MG tablet Take 1 tablet by [...] 2016 Anxiety Arthritis CAD (coronary artery disease) ([facility]) Colon polyp 2019 Confusion 09/16/2020 Constipation 09/28/2017 COVID-19 09/20/2020 Diverticulosis 2019 Gastritis 2019 Hiatal hernia 2019 History of gastric ulcer Hypertension ([facility]/HCC) Injury to penis 06/06/2021 Traumatic rhabdomyolysis ([facility]/HCC) 09/20/2020 Tubulovillous adenoma polyp of colon [...] for Test/Lab Review. documented in this encounter [facility] 06-22-2024 Telephone encounter Note OARRS reviewed, Rx sent into patient's pharmacy. [facility] 06-22-2024 Miscellaneous Notes OARRS reviewed, Rx sent into patient's pharmacy. documented in this encounter [facility] 05-29-2024 Telephone encounter Note Patient is still having issues with his throat. He saw yvette last week and his throat is still is pain and it hurts to swallow. They wondered if something could be called into [facility]. [facility] 05-29-2024 Miscellaneous Notes Patient is still having issues with his throat. He saw yvette last week and his throat is still is pain and it hurts to swallow. They wondered if something could be called into [facility] pharmacy. documented in this encounter [facility] 05-24-2024 History of Present illness Narrative [...] mouth at bedtime. 90 capsule 3 HYDROcodone-acetaminophen ([place]) 10-325 MG tablet Take 1 tablet by [...] Cervical stenosis of spinal canal - HYDROcodone-acetaminophen ([place]) 10-325 MG tablet; Take 1 tablet by [...] follow-ups on file. documented in this encounter [facility] 05-14-2024 History of Present illness Narrative Subjective Patient ID: Hakeem Escobedo is a 78 y.o.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 Bronchitis FOR RECORDS PERTAINING [...] BE BASED ON THE PRIMARY CLINICAL RECORDS. [facility]. provides no warranty or guarantee of the accuracy or completeness of information in this document.
[2025-06-27] MEDS: ENOXAPARIN SODIUM 40 MG/0.4 ML SYRINGE SUBQ (13:57)
--- NOTE | 2025-06-27 14:48 | PM.HP ---
HPI H&P: HPI History of Present Illness Chief complaint: DIZZINESS HYPOXEMIA IRINA COPD EXACERBATION Narrative: Patient is a 79 year old male with medical hx as listed in PMH presented here accompanied by his girlfriend via EMS due to dizziness and generalized weakness. Pt was recently diagnosed with bronchitis and started on AB as outpatient. He developed some reaction to AB and switched from Cefdinir to Augmentin. He still report cough, productive with yellow sputum. Found to be around 88% on RA in ER, placed on oxygen NC. CXR with no obvious infiltrates. Concern for hypoxia due to bronchitis and/or atypical pneumonia. 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, unspecified degree (ICD-10) Stroke ?I63.9 - Cerebral infarction, unspecified (ICD-10) Syncope ?R55 - Syncope and collapse (ICD-10) Seizure disorder ?G40.909 - Epilepsy, unspecified, not intractable, without status epilepticus (ICD-10) CAD (coronary artery disease) ?I25.10 - Atherosclerotic heart disease of [place] coronary artery without angina pectoris (ICD-10) Surgical History H/O heart artery stent ?Z95.5 - Presence of coronary angioplasty implant and graft (ICD-10) Social History Within the past year, how often did you have a drink containing alcohol: never Within the past year, how often did you have six or more drinks on one occasion: never Score interpretation: A score less than 4 is consistent with normal alcohol consumption. Smoking status: Former smoker Non-prescribed substance use: denies use Previous occupational history: Retired from [employer]. Highest level of school completed/degree received: 8th grade Do you want help with school or training: No Are you now , , , , never or living with a partner: In a typical week, how many times do you talk on the telephone with family, friends, or neighbors: 3 or more times per week How often do you get together with friends or relatives: 3 or more times per week How often do you attend sabianism or bahai services: 1-3 times per year Do you belong to any clubs or organizations such as sabianism groups unions, [employer] or athletic groups, or school groups: no Total score: 1 Score interpretation: A score of less than or equal to 1 indicates the most socially isolated. Little interest or pleasure in doing things: not at all Feeling down, depressed, or hopeless: not at all Feel stressed/tense/nervous/anxious/difficulty sleeping: not at all Due to disability, difficulty making decisions: No Do you think of yourself as: straight/heterosexual Gender Identity: male Meds Home Medications and Allergies Home Medications ?Medication ?Instructions ?Recorded ?Confirmed ?Type pantoprazole 40 mg tablet,delayed 40 mg PO DAILY #30 tabs 10/24/23 06/27/25 Rx release (Protonix) allopurinol 100 mg tablet 100 mg PO DAILY 06/21/24 06/27/25 History gabapentin 300 mg capsule 300 mg PO .QHS 06/21/24 06/27/25 History simvastatin 40 mg tablet 40 mg PO .QHS 06/21/24 06/27/25 History clopidogrel 75 mg tablet 75 mg PO DAILY 05/26/25 06/27/25 History nitroglycerin 0.4 mg sublingual 0.4 mg sublingual Q5M PRN chest 05/26/25 06/27/25 History tablet pain triamcinolone acetonide 0.1 % 1 applic topical BID #0 grams 05/30/25 06/27/25 Rx topical cream alprazolam 1 mg tablet 1 mg PO BID PRN anxiety 06/27/25 06/27/25 History amlodipine 2.5 mg tablet 2.5 mg PO DAILY 06/27/25 06/27/25 History carvedilol 25 mg tablet 25 mg PO BID 06/27/25 06/27/25 History celecoxib 200 mg capsule 200 mg PO DAILY 06/27/25 06/27/25 History colchicine 0.6 mg capsule 0.6 mg PO MOWEFR@0900 06/27/25 06/27/25 History hydrocodone 10 mg-acetaminophen 1 tab PO Q6H PRN pain 06/27/25 06/27/25 History 325 mg tablet meclizine 25 mg tablet 25 mg PO TID PRN dizziness 06/27/25 06/27/25 History ondansetron HCl 4 mg tablet 4 mg PO TID-QID PRN nausea and 06/27/25 06/27/25 History vomiting sucralfate 1 gram tablet 1 g PO BEDTIME 06/27/25 06/27/25 History zolpidem 10 mg tablet 10 mg PO BEDTIME 06/27/25 06/27/25 History Allergies Allergy/AdvReac Type Severity Reaction Status Date / Time No Known Drug Allergies Allergy Verified 05/26/25 11:29 Exam Narrative Exam Narrative: General: Patient looks weak and dehydrated with dry mucous membranes. Skin: Warm, the patient have a rash around the mouth more maculopapular and dry. Head: Normocephalic, atraumatic. Neck: Supple, non-tender. Eye: Pupils are equal, round and EOMI. No scleral icterus. Cardiovascular: Regular Rate and Rhythm without murmur, gallop or rub. Respiratory: No accessory muscle use or respiratory distress. diminished breath sounds, no wheezes. Musculoskeletal: normal ROM, no calf or popliteal tenderness, no lower extremity edema/swelling GI: Abdomen is soft, non-distended. Normal bowel sounds. No masses appreciated. No tenderness to palpation. No rebound, guarding, or rigidity noted. Neurological: A&O x4. No cranial nerve dysfunction observed. No truncal ataxia. Moves all extremities. Sensation intact. Psychiatric: Cooperative and interactive. Normal mood and affect. Constitutional Vital Signs, click to edit/add: Last Vital Signs Temp 97.8 F 06/27/25 13:27 Pulse 69 06/27/25 13:27 Resp 20 06/27/25 13:27 BP 130/79 06/27/25 13:27 Pulse Ox 95 06/27/25 13:27 O2 Del Method Nasal Cannula 06/27/25 13:27 O2 Flow Rate 2 06/27/25 13:27 Results Labs Labs: Short CBC 06/27/25 Range/Units 10:00 WBC 6.8 (4.0-11.0) 10^3/uL Hgb 14.2 (14.0-18.0) g/dL Hct 43.8 (42.0-54.0) % Plt Count 189 (150-450) 10^3/uL BMP 06/27/25 10:00 Sodium 145 Potassium 4.6 Chloride 107 Carbon Dioxide 28.1 BUN 21.0 H Creatinine 1.49 H Glucose 98 Calcium 9.1 Liver Function 06/27/25 Range/Units 10:00 Total Bilirubin 0.5 (0.2-1.0) mg/dL AST 32 (15-37) U/L ALT 45 (16-63) U/L Alkaline Phosphatase 84 (46-116) U/L Albumin 3.6 (3.4-5.0) g/dL ABG ABG results: 06/27/25 11:40 ABG pH 7.344 L ABG pCO2 49.7 H ABG pO2 67.3 L ABG HCO3 27.0 H ABG O2 Saturation 94.6 ABG Base Excess 1.3 Assessment and Plan Assessment and Plan (1) Acute hypoxic respiratory failure: (2) Drug side effects: Plan Acute hypoxic respiratory failure due to acute exacerbation of bronchitis, possible atypical pneumonia Prerenal azotemia, IRINA on CKD -Failed outpatient AB -Hypoxic in ER 88 % on RA. Afebrile here, no leukocytosis -Will start IV steroids -Start DuoNeb scheduled QID -Albuterol as needed -IV antibiotics with Zithromax -Gentle IV hydration -Sputum cx -Blood cx sent -Hold sedatives. Discussed with pt, he takes half Xanax and half Ambien at bedtime to sleep, i changed to half the dose if really needed while here. -Home meds reviewed and resumed as appropriate DVT ppx: Lovenox Diet: as directed Discussed with pt at bedside, all questions answered.
[2025-06-27] MEDS: TRIAMCINOLONE ACETONIDE 0.1% CREAM 15 GM TUBE 1 APPLIC TOPICAL (21:08)
[2025-06-27] MEDS: METHYLPREDNISOLONE SOD SUCC PF 40 MG/ML VIAL IVP (21:09)
[2025-06-27] MEDS: SUCRALFATE 1 GM TABLET PO (21:09)
[2025-06-27] MEDS: ATORVASTATIN CALCIUM 20 MG TABLET PO (21:09)
[2025-06-27] MEDS: ZOLPIDEM TARTRATE 10 MG TABLET 5 MG PO (21:09)
[2025-06-27 22:54] LABS: Glucose Urine UA 100 mg/dL (NEGATIVE)
[2025-06-28] VITALS (25 sets, daily range): BP systolic 128–149; BP diastolic 74–90; PULSE 64–87; TEMP 36.5–36.8; O2SAT 92–96
--- NOTE | 2025-06-28 04:27 | PC.NURSE ---
large amount of soft stool
[2025-06-28] MEDS: IPRATROPIUM/ALBUTEROL SULFATE 3 ML AMPUL.NEB IH ×4 (04:29→22:45)
[2025-06-28 05:24] LABS: Hematocrit 41.0 % (42.0-54.0); Hemoglobin 13.5 g/dL (14.0-18.0); Immature Granulocytes Abs Auto 0.04 10^3/uL (0.00-0.03); Immature Granulocytes Pct Auto 0.4 % (0.0-0.5); Lymphocytes Absolute Auto 1.1 10^3/uL (1.2-3.8); Mean Corpuscular HGB Conc 32.9 g/dL (29.9-35.2); Mean Corpuscular Hemoglobin 29.3 pg (25.9-34.0); Mean Corpuscular Volume 88.9 fL (80.0-94.0); Platelet Count 175 10^3/uL (150-450); Red Blood Count 4.61 10^6/uL (4.70-6.10); White Blood Count 10.3 10^3/uL (4.0-11.0)
[2025-06-28] MEDS: PANTOPRAZOLE SODIUM 40 MG TABLET.DR PO (05:41)
[2025-06-28 05:42] LABS: Alanine Aminotransferase 38 U/L (16-63); Albumin Globulin Ratio 0.8; Albumin Level 3.1 g/dL (3.4-5.0); Alkaline Phosphatase 86 U/L (46-116); Anion Gap 13.9; Aspartate Amino Transferase 25 U/L (15-37); Blood Urea Nitrogen 19.0 mg/dL (7.0-18.0); Calcium 8.5 mg/dL (8.5-10.1); Carbon Dioxide 23.7 mmol/L (21.0-32.0); Chloride 107 mmol/L (98-107); Estimated GFR (African America >60 (>=60 mL/min/1.73m^2); Estimated GFR (Non-African Ame 52 (>=60 mL/min/1.73m^2); Globulin 3.7 g/dL; Glucose 213 mg/dL (74-106); Potassium 4.6 mmol/L (3.5-5.1); Sodium 140 mmol/L (136-145); Total Protein 6.8 g/dL (6.4-8.2)
[2025-06-28] MEDS: ALLOPURINOL 100 MG TABLET PO (08:50)
[2025-06-28] MEDS: CLOPIDOGREL BISULFATE 75 MG TABLET PO (08:50)
[2025-06-28] MEDS: ENOXAPARIN SODIUM 40 MG/0.4 ML SYRINGE SUBQ (08:50)
--- NOTE | 2025-06-28 09:00 | CM.NOTE ---
Rounds made with Dr. Trivedi, Pt having underlying confusion. Discussed plan of care with pt. PT and OT will evaluate pt for discharge planning. Pt c/o neck pain, Dr. Trivedi will order further testing. No discharge today, pt will be inpatient status.
[2025-06-28] MEDS: TRIAMCINOLONE ACETONIDE 0.1% CREAM 15 GM TUBE 1 APPLIC TOPICAL ×2 (10:21→21:21)
[2025-06-28] MEDS: METHYLPREDNISOLONE SOD SUCC PF 40 MG/ML VIAL IVP ×2 (10:36→21:17)
--- NOTE | 2025-06-28 11:48 | SWNOTE1 ---
SW spoke with case management and pt will likely need rehab again or possibly assistant terminal manager. Pt's significant other called and spoke with nurse and she wanted in home care. SW to speak with pt and significant other as well. Pt had voiced to physician and case management that he did like it at [facility]. SW did send referral to [facility] so they can check benefits to see how many skilled days pt has left that are covered 100% by Medicare.
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
[2025-06-28] MEDS: AZITHROMYCIN 500 MG in 0.9 % SODIUM CHLORIDE 250 ML 250 MG IV (13:54)
--- NOTE | 2025-06-28 14:05 | SWNOTE1 ---
Important Message from Medicare reviewed and discussed with patient and pt's significant other on the phone, Peace. Pt and Peace verbalized understanding and pt signed the form. Original given to patient and copy placed in patient?s chart.
--- NOTE | 2025-06-28 14:07 | SWNOTE1 ---
SW stopped in and spoke with pt in regards to recommendations of pt needing to go skilled for a short time. Pt was awake in bed watching TV. SW asked pt how he was doing? Pt voiced he is doing alright and feeling a little better. SW asked if he was still living at [facility]? Pt voiced he was and his significant other, Peace, helps take care of him as well. He voiced they have been together for 15 years. SW did let pt know that SW does remember from pt being here a few weeks ago. SW asked pt if he has been getting around and walking at home. He did voiced he has not been doing great, just doing ok. SW asked if he had any falls, he stated no. SW did ask pt if he knew where he was? Pt stated he can't read or write, so when he looks at the board he is not sure what it says. SW [place] [facility] SW did redirect him and let him know he was at the [facility]. Pt did know it was 2024. Pt was unsure of month, SW let him know June. SW dud let pt know it is recommended for his safety for pt to return to the [facility] for a short time to build his strength back up. Pt was unsure at first and spoke about returning home and Peace helping care for him. After discussing SNF in more detail, pt wanted SW to call Peace. MAKSIM called and spoke to Peace while in the room with pt. SW let her know the recommendations of pt returning to SNF for a short time. SW did let them both know it does not have to be the [place] [facility], it can be any facility that accepts his insurance. Peace asked about home health. MAKSIM advised that home health would not come everyday, only 2-3 times a week. MAKSIM advised he would benefit more from SNF at this time and once he is done with SNF they can set up home health. Peace asked how long pt would be skilled for? MAKSIM let her know it is dependent on insurance, but likely a few weeks. Peace and pt spoke over the phone and they are in agreement with pt going skilled for a short time again and they would like the [place] [facility] again. Peace did let SW know that pt has a follow up apt with orthopedics in [place] on July 10. SW to let [facility] know. At this time pt or Peace do not have any further questions, SW to keep them updated. SW reached out to Opal at [facility] to see how many skilled days pt has left, waiting to hear back.
--- NOTE | 2025-06-28 14:29 | SWNOTE1 ---
Pt has 84 skilled days left. MAKSIM advised Opal that they want to go there for rehab. MAKSIM has already sent referral for [facility] to review so they can figure out Medicare days. Opal will start precert today.
[2025-06-28] MEDS: ATORVASTATIN CALCIUM 20 MG TABLET PO (21:18)
[2025-06-28] MEDS: ZOLPIDEM TARTRATE 10 MG TABLET 5 MG PO (21:18)
[2025-06-28] MEDS: SUCRALFATE 1 GM TABLET PO (21:19)
[2025-06-28] MEDS: ACETAMINOPHEN 325 MG TABLET 650 MG PO (21:20)
[2025-06-29] VITALS (12 sets, daily range): BP systolic 126–151; BP diastolic 78–84; PULSE 61–78; TEMP 36.4–36.6; O2SAT 92–95
[2025-06-29] MEDS: IPRATROPIUM/ALBUTEROL SULFATE 3 ML AMPUL.NEB IH ×2 (04:43→10:53)
[2025-06-29 05:46] LABS: Hematocrit 37.9 % (42.0-54.0); Hemoglobin 12.3 g/dL (14.0-18.0); Mean Corpuscular HGB Conc 32.5 g/dL (29.9-35.2); Mean Corpuscular Hemoglobin 28.9 pg (25.9-34.0); Mean Corpuscular Volume 89.2 fL (80.0-94.0); Platelet Count 192 10^3/uL (150-450); Red Blood Count 4.25 10^6/uL (4.70-6.10); White Blood Count 12.0 10^3/uL (4.0-11.0)
[2025-06-29 05:52] LABS: Anion Gap 10.9; Blood Urea Nitrogen 22.0 mg/dL (7.0-18.0); Calcium 8.2 mg/dL (8.5-10.1); Carbon Dioxide 26.6 mmol/L (21.0-32.0); Chloride 108 mmol/L (98-107); Estimated GFR (African America >60 (>=60 mL/min/1.73m^2); Estimated GFR (Non-African Ame 56 (>=60 mL/min/1.73m^2); Glucose 155 mg/dL (74-106); Potassium 4.5 mmol/L (3.5-5.1); Sodium 141 mmol/L (136-145)
[2025-06-29] MEDS: PANTOPRAZOLE SODIUM 40 MG TABLET.DR PO (05:57)
[2025-06-29 06:18] LABS: Folate 11.10 ng/mL (8.60-58.90)
--- NOTE | 2025-06-29 08:34 | CT_ITS ---
The [address] [address] Patient Name: TAJ RING MRN: [id number] date: 1945 Sex: M Assigned Patient Location: [place] Current Patient Location: [place] Accession/Order Number: [id number] Exam Date: 06/29/2025 09:39 Report Date: 06/29/2025 10:24 At the request of: LINDSAY WILLIAMSON MD Procedure: CT cervical spine wo con CT CERVICAL SPINE WITHOUT CONTRAST WITH 3D RECONSTRUCTIONS: CLINICAL HISTORY: neck pain/arm weakness COMPARISON: 04/25/2025 TECHNIQUE: Spiral axial unenhanced images were obtained through the cervical spine. Sagittal, coronal and 3D volume-rendered reconstructions were also reviewed. This CT exam was performed using one or more following dose reduction techniques: Automated exposure control, adjustment of the mA and/or kV according to patient size, or use of iterative reconstruction technique. FINDINGS: Alignment is maintained in the sagittal plane. The bony structures are osteopenic. There is an incomplete posterior C1 arch. There is prior cervical fusion with anterior plate and screws at C4-5, unchanged from the comparison. No developing fractures are identified. No displacement is seen. The disc spaces are uniform. There is vacuum phenomenon at C6-7. There is mild endplate spurring and bilateral facet hypertrophy. At C3-4, there is asymmetric thecal sac effacement in the right parasagittal region. There is also bilateral foraminal impingement, greater on the right where asymmetric facet disease is visualized. At the level of fusion, there is minimal thecal sac effacement from endplate spurring. There is also mild to moderate foraminal encroachment on both sides. At C6-7, there is mild central thecal sac effacement due to disco-osteophytic bulging. The atlantoaxial relationship is maintained. No prevertebral soft tissue swelling is seen. Small shotty cervical lymph nodes are present. The upper imaged lungs show mild scarring, greater on the left. CT/CT cervical spine wo con IMPRESSION: POSTOPERATIVE AND DISCOVERTEBRAL DEGENERATIVE CHANGES, DESCRIBED. FINDINGS ARE SIMILAR TO THE COMPARISON. Impression dictated by: Marylou Ray M.D. 06/29/2025 10:24 AM Dictation Location: [place] [address] Electronically authenticated by: [id number] Y Date: 06/29/2025 10:24
--- NOTE | 2025-06-29 08:43 | SWNOTE1 ---
SW received an email from Opal at [facility] and pt is approved to go to [facility]. MAKSIM updated case management.
--- NOTE | 2025-06-29 09:30 | CM.NOTE ---
Rounds made with Dr. Trivedi, pt will discharge to skilled today. Pt having CT cervical prior to discharge. Pt has f/u appointment scheduled with Dr. Fenton 07/05 11:00. Pt's information was also faxed to Dr. Lyons for referral, pt had not heard from Dr. Lyons's office.
--- NOTE | 2025-06-29 09:49 | PT.DAILY ---
Physical Therapy Daily Note PT Daily Note/Assess Start: 06/29/25 09:39 Freq: Status: Active Protocol: Document 06/29/25 09:39 TRENALYNSASHA (Rec: 06/29/25 09:49 HOLLY [id number]) Physical Therapy Daily Note/Assessment Time In/Time Out Time In 09:05 Time Out 09:18 Pain In Pain N/A Pain Out Pain N/A Subjective Subjective Pt sitting in recliner upon arrival. Agreeable to PT. Reports having a good nights rest. Denies pain currently. Therapeutic Exercise Time Therapeutic Exercise 4 Minutes (minutes) Therapeutic Exercise 0 Units Therapeutic Exercise Treatment Therapeutic Exercise Seated bilat LE strengthening ex performed in BS chair Treatment 10x ea to improve functional mobility prior to gait. Therapeutic Activity Time Therapeutic Activity 8 Minutes (minutes) Therapeutic Activity 1 Units Therapeutic Activity Treatment Chair Transfer Contact Guard Assist Ability Therapeutic Activity Sit>stand 3x from BS chair CGA with vc reminders to Comments push up from chair. Pt then amb 70' with RW, CGA for safety. Slow you noticed and increased time needed on turns. Returned to BS chair upon completion with call light within reach, chair alarm activated and needs met. Total Physical Therapy Time Total Therapy 12 Minutes Total Physical 1 Therapy Units Summary Daily Note Summary Improved transfer and gait ability on this date.
[2025-06-29] MEDS: ALLOPURINOL 100 MG TABLET PO (10:07)
[2025-06-29] MEDS: CLOPIDOGREL BISULFATE 75 MG TABLET PO (10:07)
[2025-06-29] MEDS: METHYLPREDNISOLONE SOD SUCC PF 40 MG/ML VIAL IVP (10:07)
[2025-06-29] MEDS: ENOXAPARIN SODIUM 40 MG/0.4 ML SYRINGE SUBQ (10:07)
[2025-06-29] MEDS: TRIAMCINOLONE ACETONIDE 0.1% CREAM 15 GM TUBE 1 APPLIC TOPICAL (10:08)
--- NOTE | 2025-06-29 11:00 | CM.NOTE ---
CRF completed for discharge to [facility] and signed by Dr. Trivedi. CM will set up transport and contact [facility].
[2025-06-29] MEDS: GUAIFENESIN 200 MG/DEXTROMETHORPHAN 20 MG 10 ML UNIT DOSE CUP PO (11:06)
--- NOTE | 2025-06-29 11:25 | SWNOTE1 ---
SW spoke with case management and pt is stable for discharge to [facility] today.
--- NOTE | 2025-06-29 11:26 | P.DS_ITS ---
DS: Providers Provider Date of admission: 06/27/25 13:12 Primary care physician: KELLEN BALBUENA Consults: 06/27/25 15:58 Occupational Therapy Eval and Treat Routine Reason for consultation: weakness Physical Therapy Eval and Treat Routine Reason for consultation: weakness DS: Diagnosis Discharge Diagnosis (1) Acute hypoxic respiratory failure: (2) Drug side effects: Plan Acute hypoxic respiratory failure due to acute exacerbation of bronchitis, possible atypical pneumonia Prerenal azotemia, IRINA on CKD DS: Summary Hospital Course Hospital Course: Patient is a 79 year old male with medical hx as listed in PMH presented here accompanied by his girlfriend via EMS due to dizziness and generalized weakness. Pt was recently diagnosed with bronchitis and started on AB as outpatient. He developed some reaction to AB and switched from Cefdinir to Augmentin. He still report cough, productive with yellow sputum. Found to be around 88% on RA in ER, placed on oxygen NC. CXR with no obvious infiltrates. Concern for hypoxia due to bronchitis and/or atypical pneumonia. During hospital course, patient was maintained on IV fluids and IV antibiotics with azithromycin as well as scheduled breathing treatments and steroids. Patient responded well to treatment, his oxygen supplements been weaned off and patient has been tolerating well on room air, as of today he saturating about 95% on room air. Hemodynamically stable, kidney function has improved. Less cough and sputum production . Patient did complain about global weakness and some neck pain for which we ordered him CT cervical spine which did not show any acute pathology, which showed findings similar to prior, patient was supposed to follow-up with neurologist and neurosurgery as outpatient scheduled already. Patient does have chronic weakness particular in the lower extremity as noted on previous hospitalization, refer for further details to previous discharge summary back in May 2025. he was evaluated by PT/OT while here and recomm ended SNF, patient in agreement with plan, patient has been accepted and stable for discharge at this time, will transition to oral antibiotics and oral steroids with taper to complete course of treatment. Discussed with patient at bedside, all questions answered, patient in agreement and comfortable with the plan. Time Spent with Patient Time attestation: Total time spent providing and/or coordinating discharge services: Time spent: greater than 30 minutes Exam Narrative Exam Narrative: Const General: cooperative HEENT Normal oropharyngeal mucosa without any ulcers or exudates Eyes: Conjunctiva normal Pulmonary Auscultation: slightly diminished breath sounds , no crackles, no wheezes Cardiovascular Rate: normal rate Rhythm: regular rhythm Heart Sounds: S1 normal, S2 normal and no murmurs GI Inspection: non-distended Palpation: soft, not firm and nontender. No rigidity or rebound. Deferred Neuro General: alert, awake and oriented x3. No obvious new focal deficit. Globally weak, equal strength in UE and LEs. Musculoskeletal: normal range of motion Extrem General: no cyanosis, no pedal edema Psych Appearance: appropriate affect. Grossly normal Constitutional Vital Signs, click to edit/add: Last Vital Signs Temp 97.8 F 06/29/25 08:00 Pulse 70 06/29/25 10:55 Resp 18 06/29/25 04:45 BP 151/84 H 06/29/25 08:00 Pulse Ox 95 06/29/25 10:55 O2 Del Method Room Air 06/29/25 10:55 O2 Flow Rate 2 06/28/25 16:15 DS: Data Data Completed and Pending Labs on day of discharge: Labs from last 24 hours 06/29/25 04:42 WBC 12.0 H RBC 4.25 L Hgb 12.3 L Hct 37.9 L MCV 89.2 MCH 28.9 MCHC 32.5 RDW 13.3 Plt Count 192 MPV 9.9 Sodium 141 Potassium 4.5 Chloride 108 H Carbon Dioxide 26.6 Anion Gap 10.9 BUN 22.0 H Creatinine 1.24 Est GFR ( Amer) >60 Est GFR (Non-Af Amer) 56 L BUN/Creatinine Ratio 17.7 Glucose 155 H Calcium 8.2 L Folate 11.10 Discharge Plan Discharge Disposition: [facility] SNF Condition: Good Discharge Medications: New azithromycin 500 mg tablet 500 mg PO DAILY 3 Days Qty: 3 0RF methylprednisolone [Medrol (David)] 4 mg tablets,dose pack 4 mg PO DAILY Qty: 21 0RF albuterol sulfate 90 mcg/actuation HFA aerosol inhaler 1 inh inhalation Q6H PRN (Reason: shortness of breath or wheezing) Qty: 6.7 0RF benzonatate 100 mg Capsule 200 mg PO Q8H PRN (Reason: cough) Qty: 0 0RF Continued pantoprazole [Protonix] 40 mg tablet,delayed release (DR/EC) 40 mg PO DAILY Qty: 30 0RF clopidogrel 75 mg tablet 75 mg PO DAILY nitroglycerin 0.4 mg tablet, sublingual 0.4 mg sublingual Q5M PRN (Reason: chest pain) triamcinolone acetonide 0.1 % Cream 1 applic topical BID Qty: 0 0RF Rx Instructions: Apply on face twice a day. Avoid eyes amlodipine 2.5 mg tablet 2.5 mg PO DAILY colchicine 0.6 mg capsule 0.6 mg PO MOWEFR@0900 meclizine 25 mg tablet 25 mg PO TID PRN (Reason: dizziness) ondansetron HCl 4 mg tablet 4 mg PO TID-QID PRN (Reason: nausea and vomiting) sucralfate 1 gram tablet 1 g PO BEDTIME gabapentin 300 mg capsule 300 mg PO .QHS simvastatin 40 mg tablet 40 mg PO .QHS allopurinol 100 mg tablet 100 mg PO DAILY Changed celecoxib 200 mg capsule 200 mg PO DAILY PRN (Reason: pain) Qty: 0 0RF Discontinued zolpidem 10 mg tablet 10 mg PO BEDTIME carvedilol 25 mg tablet 25 mg PO BID alprazolam 1 mg tablet 1 mg PO BID PRN (Reason: anxiety) hydrocodone-acetaminophen 10-325 mg tablet 1 tab PO Q6H PRN (Reason: pain) Print Language: Martiniquais [employer] Care Manager/Supervisor Floor Assembly Instructions: Discharge to [facility] skilled Forms: Portal Instructions
--- NOTE | 2025-06-29 11:51 | SWNOTE1 ---
MAKSIM reached out to [facility] to see if they have transport available, but they do not. MAKSIM called trips and they will be here between 1-1:30. MAKSIM notified [facility], nurse, pt, and pt's girlfriend Peace. Peace did remind SW of pt's appoinntment on 07/10 and that pt's son will take him. MAKSIM advised that SW will let [facility] know, but to also remind [facility] as he will have to sign out and sign back in. MAKSIM to send orders and complete HENS [id number]
--- NOTE | 2025-06-29 12:17 | SWNOTE1 ---
MAKSIM called and spoke to pt's girlfriend Peace in regards to follow ups. Peace voiced they received a call from Dr. Lyons'ss office and they did not need to see him. Pt does have appointment with Dr. Graham on July 10 at 1:00. Pt's son will be transporting him. Pt also has follow up with Dr. Fenton on 08/05. Both appointments were listed on the CRF that is being sent to the [facility].
--- NOTE | 2025-06-29 12:26 | SWNOTE1 ---
MAKSIM faxed dc med rec, dc summary, PT/OT from today, and labs from today, and Diagnostic imaging from today as well.
--- NOTE | 2025-06-29 12:31 | SWNOTE1 ---
SW completed HENS [id number].
--- NOTE | 2025-06-29 12:40 | NUTR.NU ---
PO intakes of regular diet are consistently good and appear to meet pt?s estimated nutrient requirements. No dietary concerns at this time; will continue to follow PRN.
--- NOTE | 2025-06-29 13:03 | SWNOTE1 ---
SW did fax the CT of cervial spine to Dr. Graham's office since pt does have follow up with his office on July 10 in regards to his neck.
--- NOTE | 2025-06-29 13:17 | PC.NURSE ---
RN attempted to call report to the [facility] x2 with no answer
[2025-06-30 04:07] LABS: Vitamin B12 425 pg/mL (232-1245)
== END 2025-06-29 13:42 | DRG 202 ==
LOC: ER 11:25 → MS 13:18
PROVIDERS: Admitting Provider Internal Medicine; Emergency Provider Emergency Medicine; PCP Internal Medicine; Visit Provider Internal Medicine
DX: J20.9 Acute bronchitis, unspecified (principal); J18.9 Pneumonia, unspecified organism; J96.01 Acute respiratory failure with hypoxia; N17.9 Acute kidney failure, unspecified; Z87.891 Personal history of nicotine dependence; I25.10 Atherosclerotic heart disease of native coronary artery without angina pectoris; N18.30 Chronic kidney disease, stage 3 unspecified; Z95.5 Presence of coronary angioplasty implant and graft; E78.00 Pure hypercholesterolemia, unspecified; Z86.73 Personal history of transient ischemic attack (TIA), and cerebral infarction without residual deficits; Z79.899 Other long term (current) drug therapy; R53.1 Weakness; G62.9 Polyneuropathy, unspecified; T50.995A Adverse effect of other drugs, medicaments and biological substances, initial encounter; R21 Rash and other nonspecific skin eruption; R42 Dizziness and giddiness; M54.2 Cervicalgia
CPT/HCPCS: 36415; 36600; 70450; 71045; 72125; 76376; 80048; 80053; 81003; 82607; 82746; 82805; 83605; 83735; 84484; 85025; 85027; 87040; 87070; 87205; 93005; 94640; 94761; 96365; 96375; 97110; 97162; 97165; 97530; 97535; 99285; J0456; J1650; J2919

== ENCOUNTER 2025-07-26 10:02 | Observation (INO) | payer MEDICARE, MEDICAID, SELFPAY ==
--- OUTSIDE RECORDS SUMMARY | 2025-07-18 14:02 | XMS_ITS | Encounter Summary ---
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 OrganizationAddressCity/State/ZIP CodePhone Number [facility] [address] * CBC auto differential (07/18/2025 2:54 PM EST)ComponentValueRef RangeTest MethodAnalysis TimePerformed AtPathologist SignatureWBC6.84 - 11 X10^9/L 07/18/2025 3:05 PM [facility]ERRBC Count4.544.1 - 5.7 X10^12/L109/17/2024 3:05 PM [facility] Oyxykuefys03.313 - 17 g/dL07/18/2025 3:05 PM [facility]ENTERHematocrit39.839 - 50 %07/18/2025 3:05 PM [facility]ENTERMCV8880 - 100 fL07/18/2025 3:05 PM [facility]ENTERMCH29.327 - 34 pg07/18/2025 3:05 PM [facility]ENTERMCHC33.432 - 36 g/dL07/18/2025 3:05 PM [facility]ENTERRDW14.511.5 - 15 %07/18/2025 3:05 PM [facility] CENTERPlatelet Siowa615481 - 450 X10^9/L109/17/2024 3:05 PM EST [facility]MPV7.37 - 12 fL07/18/2025 3:05 PM EST [facility]Neutrophils %70.3%07/18/2025 3:05 PM EST [facility]Lymphocytes %20.4%07/18/2025 3:05 PM EST [facility]Monocytes %5.4%07/18/2025 3:05 PM EST [facility]ALEosinophils %3.3%07/18/2025 3:05 PM [facility]ophils %0.6%07/18/2025 3:05 PM [facility]ITALNeutrophils Absolute (A)4.81.5 - 6.6 X10^9/L109/17/2024 3:05 PM [facility]ENTERLymphocytes Absolute1.41.0 - 3.5 X10^9/L109/17/2024 3:05 PM [facility]ITALMonocytes Absolute0.40.0 - 0.9 X10^9/L109/17/2024 3:05 PM [facility]EREosinophils Absolute0.20.0 - 0.4 X10^9/L109/17/2024 3:05 PM [facility]ENTERBasophils Absolute0.00.0 - 0.2 X10^9/L109/17/2024 3:05 PM [facility]ENTERDifferential TypeAUTOMATED HDPNDFSKICEU96/05/2025 3:05 PM [facility] LIMApecimen (Source)Anatomical Location / LateralityCollection Method / VolumeCollection TimeReceived TimeBloodVenous blood / UnknownVenipuncture / Ogejdkm7407/18/2025 2:54 PM EST07/18/2025 3:00 PM EST Narrative Authorizing ProviderResult TypeResult StatusMary JOEL BLOOD ORDERABLESFinal ResultPerforming OrganizationAddressCity/State/ZIP CodePhone Number [facility] [address] [place] [address], [place] * ECG 12 lead (07/18/2025 2:14 PM EST)Specimen (Source)Anatomical Location / LateralityCollection Method / VolumeCollection TimeReceived Time07/18/2025 2:14 PM EST Narrative TRACEMASTERVUE - 07/23/2025 9:51 AM EST Authorizing ProviderResult TypeResult StatusMary SPRINGG ORDERABLES Final ResultPerforming OrganizationAddressCity/State/ZIP CodePhone Number TRACEM[facility]ERVUE documented in this encounter Visit Diagnoses Diagnosis Vertigo- Primary Dizziness and giddiness documented in this encounter Administered Medications Medication OrderMAR ActionAction DateDoseRateSite diazePAM (VALIUM) injection 5 mg 5 mg, intravenous, Once, On Wed07/18/25 at 1446, For 1 dose, Look-alike/sound-alike medication - verify indication for use. Given07/18/2025 3:04 PM EST5 mg sodium chloride 0.9 % flush 3 mL 3 mL, intravenous, As needed, line care, before and after each intermittent use, Starting on Wed07/18/25 at 1445 sodium chloride 0.9 % flush 3 mL 3 mL, intravenous, Every 12 hours scheduled, First dose on Wed07/18/25 at 1446 documented in this encounter Active and Recently Administered Medications Times are shown in EST.Medication Order/ diazePAM (VALIUM) injection 5 mg (COMPLETED) 5 mg, intravenous, Once, On Wed07/18/25 at 1446, For 1 dose, Look-alike/sound-alike medication - verify indication for use. * 1504 (Given - Provider: Holli Valladares RN) sodium chloride 0.9 % flush 3 mL 3 mL, intravenous, Every 12 hours scheduled, First dose on Wed07/18/25 at 1446 * 1446 (Not Given - Provider: Holli Valladares RN - Reason: Reassess at later date) Medication Order511/511/01/2025 sodium chloride 0.9 % flush 3 mL 3 mL, intravenous, As needed, line care, before and after each intermittent use, Starting on Wed07/18/25 at 1445 documented in this encounter Care Teams Team MemberRelationshipSpecialtyStart DateEnd Date Mono Knowles MD [address] [phone] PCP - General10/06/24documented as of this encounter
[2025-07-26] VITALS (24 sets, daily range): BP systolic 115–159; BP diastolic 83–93; PULSE 71–98; TEMP 36.4–37.2; O2SAT 93–98; BMI 23.7; BMI 32.1
--- NOTE | 2025-07-26 10:14 | SWNOTE1 ---
CM received a call from pt's friend, Peace, and she let us know that if he has to go somewhere, pt does not want to go back to the [place]. She would like him to go somewhere in [place]. She stated he was at [place] at hospital and they disharged him home.
--- NOTE | 2025-07-26 10:22 | XR_ITS ---
[place] [id number] Patient Name: TAJ RING MRN: [id number] date: 1945 Sex: M Assigned Patient Location: ER Current Patient Location: ED.MAIN Accession/Order Number: [id number] Exam Date: 07/26/2025 10:45 Report Date: 07/26/2025 11:13 At the request of: JAROD PENNINGTON MD Procedure: XR chest 1V PORTABLE AP ERECT CHEST 1033 hours CLINICAL HISTORY: Shortness of breath and dizziness COMPARISON: 06/27/2025 There is continued slight elevation of the right hemidiaphragm. The cardiac and mediastinal contours are similar. There is no vascular congestion. No developing consolidation is noted. There is no effusion or pneumothorax. The osseous structures are intact. XR/XR chest 1V IMPRESSION: NO ACUTE FINDINGS Impression dictated by: Marylou Ray M.D. 07/26/2025 11:13 AM Dictation Location: [place] [address] Electronically authenticated by: [id number] Y Date: 07/26/2025 11:13
--- NOTE | 2025-07-26 10:22 | ECG_ITS ---
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 Measurements Intervals [place] Rate: 75 P: 51 CT: 190 QRS: -62 QRSD: 94 T: 47 QT: 408 QTc: 436 Interpretive Statements 1100 Sinus rhythm 3114 Cannot rule out anterior myocardial infarction, age undetermined 7200 Abnormal left axis deviation 8102 Low QRS voltage in chest leads 9150 abnormal ECG Compared to ECG 06/27/2025 09:58:37 No significant changes Electronically Signed On 07-26-2025 18:37:42 EST by EUNICE FULTON M.D.
--- NOTE | 2025-07-26 10:22 | ED.DIZZY1 ---
HPI - Dizziness General Chief Complaint: Dizziness Stated Complaint: WEAKNESS Time Seen by Provider: 07/26/25 10:11 Source: patient Mode of arrival: ambulance Limitations: no limitations History of Present Illness HPI Narrative: The patient is a 79-year-old male who lives with his girlfriend is coming to the ER after he was just discharged from residential facility a week ago, with a complaint of few days of cough in addition to difficulty breathing and dizziness The patient was just evaluated yesterday in [place] ER for similar complaint and he was discharged The patient just complained of dizziness denies any any new complaint other than the fact that he has some cough. The patient is complaining of weakness tiredness and the fact that he is dizzy and not able to ambulate without help After speaking with his girlfriend who was not present at the bedside but I did speak with her on the phone and apparently the patient has been having generalized weakness since he has been discharged from the [facility] Medications ?Medication ?Instructions ?Recorded ?Confirmed allopurinol 100 mg tablet 100 mg PO DAILY 06/21/24 07/26/25 gabapentin 300 mg capsule 300 mg PO BEDTIME 06/21/24 07/26/25 simvastatin 40 mg tablet 40 mg PO BEDTIME 06/21/24 07/26/25 clopidogrel 75 mg tablet 75 mg PO DAILY 05/26/25 07/26/25 amlodipine 2.5 mg tablet 2.5 mg PO DAILY 06/27/25 07/26/25 colchicine 0.6 mg capsule 0.6 mg PO MOWEFR@0900 06/27/25 07/26/25 meclizine 25 mg tablet 25 mg PO TID PRN dizziness 06/27/25 07/26/25 sucralfate 1 gram tablet 1 g PO TID 06/27/25 07/26/25 alprazolam 1 mg tablet 1 mg PO BID 07/26/25 07/26/25 carvedilol 25 mg tablet 25 mg PO BID 07/26/25 07/26/25 celecoxib 200 mg capsule 200 mg PO DAILY pain 07/26/25 07/26/25 hydrocodone 10 mg-acetaminophen 1 tab PO Q12H 07/26/25 07/26/25 325 mg tablet zolpidem 10 mg tablet 10 mg PO BEDTIME 07/26/25 07/26/25 Previous Rx's ?Medication ?Instructions ?Recorded pantoprazole 40 mg tablet,delayed 40 mg PO DAILY #30 tabs 10/24/23 release (Protonix) Allergies Allergy/AdvReac Type Severity Reaction Status Date / Time No Known Drug Allergies Allergy Verified 07/26/25 10:03 Review of Systems ROS Status of ROS 10 or more systems reviewed and unremarkable except as noted in history and below [facility] Medical History Neuropathy ?G62.9 - Polyneuropathy, unspecified (ICD-10) High blood cholesterol ?E78.00 - Pure hypercholesterolemia, unspecified (ICD-10) Gout ?M10.9 - Gout, unspecified (ICD-10) Wilson by, 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, unspecified degree (ICD-10) Stroke ?I63.9 - Cerebral infarction, unspecified (ICD-10) Syncope ?R55 - Syncope and collapse (ICD-10) Seizure disorder ?G40.909 - Epilepsy, unspecified, not intractable, without status epilepticus (ICD-10) CAD (coronary artery disease) ?I25.10 - Atherosclerotic heart disease of [place] coronary artery without angina pectoris (ICD-10) Surgical History H/O heart artery stent ?Z95.5 - Presence of coronary angioplasty implant and graft (ICD-10) Social History Within the past year, how often did you have a drink containing alcohol: never Within the past year, how often did you have six or more drinks on one occasion: never Score interpretation: A score less than 4 is consistent with normal alcohol consumption. Smoking status: Former smoker Non-prescribed substance use: denies use Previous occupational history: Retired from [employer]. Highest level of school completed/degree received: 8th grade Do you want help with school or training: No Are you now , , , , never or living with a partner: In a typical week, how many times do you talk on the telephone with family, friends, or neighbors: 3 or more times per week How often do you get together with friends or relatives: 3 or more times per week How often do you attend roman catholic or mormonism services: 1-3 times per year Do you belong to any clubs or organizations such as roman catholic groups unions, fraternal or athletic groups, or school groups: no Total score: 1 Score interpretation: A score of less than or equal to 1 indicates the most socially isolated. Little interest or pleasure in doing things: not at all Feeling down, depressed, or hopeless: not at all Feel stressed/tense/nervous/anxious/difficulty sleeping: not at all Due to disability, difficulty making decisions: No Do you think of yourself as: straight/heterosexual Gender Identity: male Exam Narrative Exam Narrative: Nurses notes and vital signs reviewed and patient is not hypoxic. General: Well-appearing and in no apparent distress. Head: Normocephalic, atraumatic. Neck: Supple, non-tender. Eye: Pupils are equal, round and EOMI. No scleral icterus. Cardiovascular: Regular Rate and Rhythm without murmur, gallop or rub. Respiratory: No accessory muscle use or respiratory distress. Lungs are experiencing lung wheezes mostly in the lower clarke. Back: No midline thoracic or lumbar vertebral tenderness. No CVA tenderness Musculoskeletal: normal ROM, no calf or popliteal tenderness, no lower extremity edema/swelling GI: Abdomen is soft, non-distended. Normal bowel sounds. No masses appreciated. No tenderness to palpation. No rebound, guarding, or rigidity noted. Neurological: A&O x4. No cranial nerve dysfunction observed. Patient generally weak and needed assistance taking few steps with a walker Psychiatric: Cooperative and interactive. Normal mood and affect. Constitutional Vital Signs, click to edit/add: Last Vital Signs Temp 98.9 F 07/26/25 10:04 Pulse 80 07/26/25 12:40 Resp 14 07/26/25 12:40 BP 124/85 07/26/25 12:30 Pulse Ox 94 L 07/26/25 12:40 O2 Del Method Room Air 07/26/25 12:08 Course Vital Signs Vital signs: Vital Signs Temperature 98.9 F 07/26/25 10:04 Pulse Rate 77 07/26/25 10:04 Respiratory Rate 22 H 07/26/25 10:04 Blood Pressure 130/92 H 07/26/25 10:04 Pulse Oximetry 96 07/26/25 10:04 Oxygen Delivery Method Room Air 07/26/25 10:04 Temperature 98.9 F 07/26/25 10:04 Pulse Rate 80 07/26/25 12:40 Respiratory Rate 14 07/26/25 12:40 Blood Pressure 124/85 07/26/25 12:30 Pulse Oximetry 94 L 07/26/25 12:40 Oxygen Delivery Method Room Air 07/26/25 12:08 MDM - Dizziness MDM Narrative Medical decision making narrative: The patient EKG showing sinus rhythm with a heart rate of [address] elevation or depression The patient chest x-ray showed no acute pathology CBC and chemistry showed no acute significant pathology and the patient was provided with 2 breathing treatment 1 by the EMS another 1 here in the ER in addition to Solu-Medrol The patient was deconditioned he is not able to ambulate with no assistance, he is using a walker at home but apparently only taking a few steps in the room was enough to show that the patient is generally weak and needs assistance Right now I did speak with Dr. Maya and discussed the case and the patient will be admitted as observation and I also consulted the healthcare social worker for further evaluation Lab Data Labs: Lab Results 07/26/25 Range/Units 10:35 WBC 5.4 (4.0-11.0) 10^3/uL RBC 4.48 L (4.70-6.10) 10^6/uL Hgb 13.3 L (14.0-18.0) g/dL Hct 40.7 L (42.0-54.0) % MCV 90.8 (80.0-94.0) fL MCH 29.7 (25.9-34.0) pg MCHC 32.7 (29.9-35.2) g/dL RDW 13.6 (11.0-15.0) % Plt Count 187 (150-450) 10^3/uL MPV 9.3 L (9.5-13.5) fL Neut % (Auto) 45.4 (43.0-75.0) % Lymph % (Auto) 39.9 (20.5-60.0) % [place] % (Auto) 9.1 (1.7-12.0) % Eos % (Auto) 4.1 (0.9-7.0) % Baso % (Auto) 0.4 (0.2-2.0) % Neut # (Auto) 2.4 (1.4-6.5) 10^3/uL Lymph # (Auto) 2.1 (1.2-3.8) 10^3/uL [place] # (Auto) 0.5 (0.3-0.8) 10^3/uL Eos # (Auto) 0.2 (0.0-0.7) 10^3/uL Baso # (Auto) 0.0 (0.0-0.1) 10^3/uL Abs Immat Gran (auto) 0.06 H (0.00-0.03) 10^3/uL Imm/Tot Granulo (auto) 1.1 H (0.0-0.5) % Sodium 145 (136-145) mmol/L Potassium 4.1 (3.5-5.1) mmol/L Chloride 113 H (98-107) mmol/L Carbon Dioxide 25.0 (21.0-32.0) mmol/L Anion Gap 11.1 BUN 20.0 H (7.0-18.0) mg/dL Creatinine 1.50 H (0.70-1.30) mg/dL Est GFR ( Amer) 55 L (>=60 mL/min/1.73m^2) Est GFR (Non-Af Amer) 45 L (>=60 mL/min/1.73m^2) BUN/Creatinine Ratio 13.3 Glucose 93 (74-106) mg/dL Calcium 8.0 L (8.5-10.1) mg/dL Total Bilirubin 0.4 (0.2-1.0) mg/dL AST 19 (15-37) U/L ALT 28 (16-63) U/L Alkaline Phosphatase 96 (46-116) U/L Troponin I High Sens 6.1 (4.0-76.1) pg/mL Total Protein 6.4 (6.4-8.2) g/dL Albumin 3.2 L (3.4-5.0) g/dL Globulin 3.2 g/dL Albumin/Globulin Ratio 1.0 Discharge Plan Discharge Chief Complaint: Dizziness Clinical Impression: COPD exacerbation, Generalized muscle weakness, Dizziness Patient Disposition: Admitted as Observation Time of Disposition Decision: 13:18
[2025-07-26 10:45] LABS: Hematocrit 40.7 % (42.0-54.0); Hemoglobin 13.3 g/dL (14.0-18.0); Immature Granulocytes Abs Auto 0.06 10^3/uL (0.00-0.03); Immature Granulocytes Pct Auto 1.1 % (0.0-0.5); Lymphocytes Absolute Auto 2.1 10^3/uL (1.2-3.8); Mean Corpuscular HGB Conc 32.7 g/dL (29.9-35.2); Mean Corpuscular Hemoglobin 29.7 pg (25.9-34.0); Mean Corpuscular Volume 90.8 fL (80.0-94.0); Platelet Count 187 10^3/uL (150-450); Red Blood Count 4.48 10^6/uL (4.70-6.10); White Blood Count 5.4 10^3/uL (4.0-11.0)
--- OUTSIDE RECORDS SUMMARY | 2025-07-26 10:51 | XMS_ITS | Encounter Summary ---
Author Organization [email or web address] tem Address [id number] [address] [place] [address] Care Team Providers Care Program Evaluator Name Role Phone Mono Knowles MD Primary Care Provider Encounter Details DateTypeDepartmentCare Team (Latest Contact Info)Iuiojjicafb89/05/2025Travel Social History Tobacco UseTypesPacks/DayYears UsedDateSmoking Tobacco: AxnpkgRckeqjnhlp30 09/13/2007 - 09/13/2011Smokeless Tobacco: NeverAlcohol UseStandard Drinks/Week CommentsNo0 (1 standard drink = 0.6 oz pure alcohol)[facility] UtilitiesAnswerDate RecordedIn the past 12 months [...] a part of a household?No10/06/2024hildcareAnswerDate RecordedChildcareUnknown 02/22/2019EmploymentAnswerDate LuzcthygKzhqdbmagjImmtbdr56/12/2019Hunger ScreeningAnswerDate RecordedWithin the past 12 months we worried whether our food would run out before we got money to buy more.Never True05/24/2025Within the past 12 months the food we bought just didn't last and we didn't have money to get more.Never True05/24/2025Purpose - LifeAnswerDate RecordedPurpose and direction in saaoIdvgudy23/12/2021ex and Gender InformationValueDate Recorded Sex Assigned at BirthNot on fileLegal JpdHrdq7004/18/2015 11:21 AM EDTGender IdentityNot on fileSexual OrientationNot on filedocumented as of this encounter Plan of Treatment Not on file documented as of this encounter Goals GoalPatient Goal TypeAssociated ProblemsRecent ProgressPatient-Stated?Author home Monse Mcgrath LSW Note: Evaluation of progress towards goal: under assessment, pt said he is feeling better but somewhat dizzy yet documented as of this encounter Visit Diagnoses Not on filedocumented in this encounter Care Teams Team MemberRelationshipSpecialtyStart DateEnd Date Mono Knowles MD 112 [facility] [place], [address] [phone] PCP - General10/06/24documented as of this encounter
--- OUTSIDE RECORDS SUMMARY | 2025-07-26 10:51 | XMS_ITS | Clinical Summary ---
Author Organization [facility] Address [address] [place] [address] Care Team Providers Care Rehab Aide Name Role Phone Mono Knowles MD Unavailable [phone] Mono Knowles MD Primary Care Provider [phone] Allergies Active AllergyReactionsCriticalityNoted DateCommentsPneumococcal 20-Roselyn Conj BtsqZzwszany75/26/2021neumococcal Vac ZuaatjcpbbPpelosbu84/26/2021 Medications MedicationSigDispense QuantityRefillsLast FilledStart DateEnd DateStatus carvedilol (Coreg) 25 MG tablet Take 25 mg by mouth in the morning and 25 mg in the evening.07/23/2022ctive ondansetron (Zofran) 4 MG tablet Take 4 mg by mouth every 8 (eight) hours if needed.Active amLODIPine (Norvasc) 2.5 MG tablet Indications:Benign essential hypertensionTake 1 tablet (2.5 mg) by mouth Daily 90 tablet 415Active clopidogrel (Plavix) 75 MG tablet Indications:Mixed hyperlipidemiaTake 1 tablet (75 mg) by mouth Daily 100 tablet 4Active pantoprazole (ProtoNix) 40 MG EC tablet Indications:Benign essential hypertensionTake 1 tablet (40 mg) by mouth Daily 100 tablet 5Active nitroglycerin (Nitrostat) 0.4 MG SL tablet Indications: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 pectorisPlace 1 tablet (0.4 mg) under the tongue every 5 (five) minutes if needed for chest pain 90 tablet 1203503/6Active gabapentin (Neurontin) 300 MG capsule Indications:Pain of right thigh,Lumbar herniated disc,Right lumbar radiculopathy Take 1 capsule (300 mg) by mouth at bedtime 100 capsule /309730/6Active simvastatin (Zocor) 40 MG tablet Indications:Atherosclerosis of sho[place] coronary artery of [place] heart without angina pectorisTake 1 tablet (40 mg) by mouth at bedtime 100 tablet 5Active Colchicine 0.6 MG capsule Indications:Idiopathic chronic gout without tophus, unspecified siteTake 0.6 mg by mouth See administration instructions Take one capsule by mouth once daily, every Wednesday, Wednesday and Wednesday. 30 capsule 5Active meclizine (Antivert) 25 MG tablet Indications:VertigoTake 1 tablet (25 mg) by mouth 3 (three) times a day as needed for dizziness 60 tablet /6Active allopurinol (Zyloprim) 100 MG tablet Indications:Mixed hyperlipidemiaTake 1 tablet (100 mg) by mouth Daily 100 tablet 5Active sucralfate (Carafate) 1 g tablet Indications:Gastroesophageal reflux disease with esophagitis without hemorrhage TAKE 1 TABLET BY MOUTH EVERY MORNING, ONCE IN THE EVENING AND ONCE BEFORE BEDTIME 270 tablet 5Active celecoxib (CeleBREX) 200 MG capsule Indications:Costochondritis, acuteTake 1 capsule (200 mg) by mouth Daily 90 capsule 509/6Active zolpidem (Ambien) 10 MG tablet Indications:Chronic insomniaTake 1 tablet (10 mg) by mouth at bedtime 30 tablet 5Active HYDROcodone-acetaminophen ([place]) 10-325 MG tablet Indications:Cervical stenosis of spinal canalTake 1 tablet by mouth every 6 (six) hours if needed for severe pain 120 tablet /5Active ALPRAZolam (Xanax) 1 MG tablet Indications:AnxietyTake 1 tablet (1 mg) by mouth in the morning and 1 tablet (1 mg) before bedtime. 60 tablet /5Active HYDROcodone-acetaminophen ([place]) 10-325 MG tablet Indications:Cervical stenosis of spinal canalTake 1 tablet by mouth every 6 (six) hours if needed for severe pain 120 tablet /27/2025Discontinued(Reorder) ALPRAZolam (Xanax) 1 MG tablet Indications:AnxietyTake 1 tablet (1 mg) by mouth in the morning and 1 tablet (1 mg) before bedtime. 60 tablet Discontinued(Reorder) amoxicillin-clavulanate (Augmentin) 875-125 MG tablet Indications:Acute bronchitis, unspecified organismTake 1 tablet (875 mg) by mouth in the morning and 1 tablet (875 mg) before bedtime. Do all this for 10 days. 20 tablet /Expired levoFLOXacin (Levaquin) 500 MG tablet Indications:Acute bronchitis, unspecified organismTake 1 tablet (500 mg) by mouth Daily for 7 days 7 tablet Expired Active Problems ProblemNoted DateDiagnosed DateClosed left subtrochanteric femur fracture, xnkdclx3306/25/2025Degeneration of intervertebral disc of lumbar ndfrve4806/25/2025 Borderline abnormal TFTs12/06/20243688Fbfrbumyv95/24/2025erebrovascular accident (CVA)08/10/2024Irritable bowel syndrome with jgvcubluxzwr66/14/2024ight lumbar sjrnltmvoyhjk40/13/2023History of myocardial infarct at age greater than 60 years02/03/20236753Ixdqhep12/09/2023rthritis of right hip01/19/2023ervical stenosis of spinal canal01/19/2023hronic gouty qnbpvieyv48/09/2023hronic /09/4432Fsbdosxfy32/09/2023Hiatal dhcyuv2201/19/2023astroesophageal reflux disease with esophagitis without tyxbthxfui44/09/0222Vhds38/09/2023 Ceyzajlciito24/09/2023Lumbar herniated disc01/19/2023Obesity (BMI 30-39.9) 01/19/2023Other chronic pain01/19/2023ain of right thigh01/19/2023Stage 3b chronic kidney rhtuucy1601/19/2023uodenal mvftmcfafdsh10/06/2023History of stomach hyzzvh3809/18/20221182Besegkueb67/06/2023enign prostatic hyperplasia without lower urinary tract lrwyzjvj43/24/2021ersonal history of other diseases of the digestive sckwaw1907/12/2020History of colonic oxjfnz4204/26/2019Chronic postoperative pain09/21/2016Cervical tbhjjtntehcmys92/16/2015Hyperlipidemia 12/26/2013therosclerosis of sho[place] coronary artery of [place] heart with stable angina vbsnndzi25/15/2014Stented coronary dmwxzq6109/22/2013 Overview (02/03/2023): VANGIE in mid LAd Cervical spondylosis without ccyxquhwlf51/27/2011enign essential hypertension 06/12/2010Diverticulosis of colon10/10/20083224Okxzhiqxjhbcxi72/28/2009 Resolved Problems ProblemNoted DateDiagnosed DateResolved JcznXgvtplbipvcghr58/06/202302/14/2024 Yrenbqvkz21Injury to peniscute renal failure superimposed on stage 3a chronic kidney heaqevj96 COVID-190Traumatic rkdiaqeetstpma27 Celykndfi41/04/Spinal stenosis in cervical gkichu8212/20/2018 10/27/20239389Rewzpsboiryt44/16/hest pain01/23/cid tvjrla67/13/Myocardial ylbfqphfdl33/01/Occlusive coronary artery wglpraj26HTN (hypertension)09/22/2013 04/05/2023Unstable ccbgle51 Overview (02/03/2023): Transfer from [facility] DateTypeDepartmentCare XbhhXkhowpsaizu57/12/2025Telephone [facility] [place] [facility] [address] [place] [address] Mono Knowles MD 07/18/2025Refill [facility] [address] [place] [address] Mono Knowles MD Usbfmvt1807/18/2025Telephone [facility] [address] [place] [address] Mono Knowles MD 07/11/2025[facility] [address] [place] [address] Shelby Millard LPN 07/10/2025 1:20 PM EDTAncillary Procedure [facility] Pending sale to [facility] [place] [phone] 07/10/2025 1:00 PM EDTOffice Visit [facility] Pending sale to [facility] [place] [phone] Lance Karimi PA Right hip pain (Primary Dx); Arthritis of right hip; Right leg pain07/10/2025[facility] [address] [place] [address] Shelby Millard LPN 07/10/2025amboo flowsheet [facility] [address] [facility] [place] [phone] Lance Karimi PA 07/10/20251904Fjipxv67/27/2025Refill [facility] [place] [facility] [address] [place] [address] Mono Knowles MD Cervical stenosis of spinal canal07/03/2025[facility] [address] [place] [address] Shelby Millard LPN 06/27/2025linisync Result Encounter [facility] External Department Unsolicited Provider, Generic External Data 06/26/2025bstract [facility] [facility] [address] [place] [address] Mono Knowles MD 06/26/2025bstract [facility] [facility] [address] [place] [address] Mono Knowles MD 06/26/2025bstract [facility] [facility] [address] [place] [address] Mono Knowles MD 06/26/2025bstract [facility] [facility] [address] [place] [address] Mono Knowles MD 06/26/2025Orders Only [facility] [facility] [address] [place] [address] Unallocated, Nomjemma Vasquez MD 06/26/2025bstract [facility] [facility] [address] [place] [address] Mono Knowles MD 06/25/2025 11:30 AM EDTOffice Visit [facility] [facility] [address] [place] [address] Mono Knowles MD Cerebrovascular accident (CVA), unspecified mechanism (HCC) (Primary Dx); Right thigh pain; Closed displaced subtrochanteric fracture of right femur, sequela; Degeneration of intervertebral disc of lumbar region, unspecified whether pain present; Acute bronchitis, unspecified ukfmlfro75/13/2025Refill [facility] [facility] [address] [place] [address] Ellie Neil, DIA Anfvkek6706/25/2025amboo flowsheet [facility] [address] [place] [address] Mono Knowles MD 06/25/20254671Podyor36/09/2025 9:00 AM EDTOffice Visit [facility] [facility] [address] [place] [address] Neil, Ellie C, [employer] Acute bronchitis, unspecified organism (Primary Dx); Anxiety; Chronic fuyypzpk78/09/2025amboo flowsheet [facility] [place] [facility] [address] [place] [address] Ellie Neil, [employer]ISHING RANGE FEEDER 06/21/20255345Jjccol19/07/2025Patient Outreach [facility] [address] [place] [address] Shelby Millard, [employer]ER 06/15/2025Refill [facility] [place] [facility] [address] [place] [address] Mono Knowles MD Cervical stenosis of spinal canal06/13/2025Patient Outreach [facility] [address] [place] [address] Shelby Millard, [employer]IL[employer] STOKER 06/06/2025Patient Outreach [facility] [address] [place] [address] Shelby Millard, [employer]IL[employer] STOKER 06/05/2025Telephone [facility] [facility] [address] [place] [address] Mono Knowles MD 06/01/2025Patient Outreach [facility] [address] [place] [address] Shelby Millard, KILN STOKER 05/28/2025bstract [facility] [place] [facility] [address] [place] [address] Mono Knowles MD 05/25/2025Telephone [facility] [address] [place] [address] Ruth Johnston, [employer]IL[employer] STOKER 05/15/2025Telephone [facility] [facility] [address] [place] [address] Mono Knowles MD Med Avqghg7105/11/2025Refill [facility] [place] [facility] [address] [place] [address] Marylou Harris PA Sgxiuay2905/11/2025Refill [facility] [address] [facility] [address] [place] [phone] Summer Kay MA Elxhsvw1805/09/2025Patient Outreach [facility] [address] [place] [address] Ruth Johnston LPN 05/09/2025Refill [facility] [address] [facility] [address] [place] [address] Mono Knowles MD Cervical stenosis of spinal canalfrom Last 3 Months Immunizations ImmunizationAdministration DatesNext DueABRYSVO - Respiratory syncytial virus (RSV), vaccine, bivalent, protein subunit RSV prefusion F, diluent reconstituted, 0.5 mL, PF11/17/2023Influenza, High Dose Seasonal, Preservative Free05/17/2024,05/30/2020,06/14/2019,06/23/2017Influenza, High-dose Seasonal, Quadrivalent, Preservative Free07/12/2023,06/17/2022,06/18/2021Influenza, injectable, quadrivalent, preservative free10/04/2015Influenza, seasonal, injectable, preservative free09/09/2018Influenza, seasonal, intradermal, preservative free05/14/2016,07/15/2015Pneumococcal Conjugate PCV 130806/2015 Pneumococcal Polysaccharide [id number], Recombinant 12/22/2022,08/01/2020 Family History Medical HistoryRelationNameCommentsHeart diseaseFatherHypertensionFatherCancer Maternal GrandfatherCancerMaternal Grandmotherbrain tumorMotherRelationName StatusCommentsFatherDeceasedMaternal GrandfatherMaternal GrandmotherMother DeceasedOtherSpouseDeceased Social History Tobacco UseTypesPacks/DayYears UsedDateSmoking Tobacco: FormerCigarettesQuit: 09/13/2000Smokeless Tobacco: Never Tobacco Cessation:Counseling Given: Yes Comments:Quit smoking 10 years ago Alcohol UseStandard Drinks/WeekCommentsNever0 (1 standard drink = 0.6 oz pure alcohol)Caffeine 1-2 cups/idpZ1395 Health LiteracyAnswerDate RecordedHow often do you need to have someone help you when you read instructions, pamphlets, or other written material from your doctor or pharmacy?Apatsghzz99/03/2024 Humiliation, Afraid, Rape, and Kick questionnaireAnswerDate RecordedWithin the last year, have you been afraid of your partner or ex-partner?No06/04/2023Within the last year, have you been humiliated or emotionally abused in other ways by your partner or ex-partner?No06/04/2023Within the last year, have you been kicked, hit, slapped, or otherwise physically hurt by your partner or ex-partner?No06/04/2023Within the last year, have you been raped or forced to have any kind of sexual activity by your partner or ex-partner?No06/04/2023 Social Connection and Isolation PanelAnswerDate RecordedIn a typical week, how many times do you talk on the phone with family, friends, or neighbors?Once a week06/04/2023How often do you get together with friends or relatives?Once a week06/04/2023How often do you attend religion or confucianist services?More than 4 times per year06/04/2023o you belong to any clubs or organizations such as religion groups, unions, fraternal or athletic groups, or school groups?No 06/04/2023How often do you attend meetings of the clubs or organizations you belong to?Never06/04/2023re you , , , , never , or living with a partner?Living with sgziwlp6506/04/2023UDIT-CAnswerDate RecordedQ1: How often do you have a drink containing alcohol?Never06/04/2023Q2: How many drinks containing alcohol do you have on a typical day when you are drinking?Patient does not drink06/04/2023Q3: How often do you have six or more drinks on one occasion?Never06/04/2023Overall Financial Resource Strain (CARDIA) AnswerDate RecordedHow hard is it for you to pay for the very basics like food, housing, medical care, and heating?Not hard at all06/04/2023HQ-2AnswerDate RecordedPatient Health Questionnaire-2 Edlxv541[facility] [place] [facility] - Occupational Stress QuestionnaireAnswerDate RecordedDo you feel stress - tense, restless, nervous, or anxious, or unable to sleep at night because yourmind is troubled all the time - these days?To some tcnnbw5106/04/2023 Exercise Vital SignAnswerDate RecordedOn average, how many days per week do you engage in moderate to strenuous exercise (like a brisk walk)?3 days06/04/2023On average, how many minutes do you engage in exercise at this level?10 min 06/04/2023Hunger Vital SignAnswerDate RecordedWithin the past 12 months, you worried that your food would run out before you got the money to buymore.Never true06/04/2023Within the past 12 months, the food you bought just didn't last and you didn't have money to get more.Never true06/04/2023RAPARE - TransportationAnswerDate RecordedIn the past 12 months, has lack of transportation kept you from medical appointments or from getting medications?No 06/04/2023In the past 12 months, has lack of transportation kept you from meetings, work, or from getting things needed for daily living?No06/04/2023 Housing Stability Vital SignAnswerDate RecordedIn the last 12 months, was there a time when you were not able to pay the mortgage or rent on time?No06/04/2023In the last 12 months, how many places have you lived?In the last 12 months, was there a time when you did not have a steady place to sleep or slept in ashelter (including now)?No06/04/2023Sex and Gender InformationValueDate RecordedSex Assigned at BirthNot on fileLegal TvlDtec0711/25/2022 6:55 PM EDT Gender IdentityNot on fileSexual OrientationNot on file Last Filed Vital Signs Vital SignReadingTime TakenCommentsBlood Orykhoug111/7610 11:22 AM EDT Rcqey354606/25/2025 11:22 AM IMAYvhnvirfbpv01.6 ??C (97.9 ??F)06/25/2025 11:22 AM EDTRespiratory Porc1842 9:07 AM EDTOxygen Sgjnmwplct04%06/25/2025 11:22 AM EDTInhaled Oxygen Concentration--Ozwysj18.5 kg (195 lb)06/25/2025 11:22 AM ZMNXpklqy400.6 cm (5' 6 )06/25/2025 11:22 AM EDTBody Mass Index31.4706/25/2025 11:22 AM EDT Plan of Treatment DateTypeDepartmentCare Team (Latest Contact Info)Klsrtjyzipm36/14/2025 9:15 AM ESTOffice Visit [facility] [place] [facility] [address] [facility] [address] [place] [address] Mono Knowles MD [address] [facility] [address] [place] [address] Health MaintenanceDue DateLast DoneCommentsCOVID-19 Vaccine ( season) 509/12/2023, 06/21/2023, 12/30/2021, Additional history existsInfluenza Vaccine (#1)509/12/2023, 07/12/2023, 06/17/2022, Additional history existsPneumococcal Vaccine: 65+ UhkfeQqqjirzux52/21/2018, 04/22/2015 Procedures Procedure NamePriorityDate/TimeAssociated DiagnosisCommentsXR HIP 2 OR 3 VW XBWCBMyrnipp91/28/2025 1:17 PM EDT Right hip pain BLOOD CULTURE 9Qoguijw49/15/2025 12:40 PM EDT BLOOD CULTURE 7Cdnsxsc95/15/[address] CERVICAL SPINE WO IV LSBZLJCLJodtpqm82/14/2025 10:47 AM EDTCT ANGIO HEAD NECK Ozyrlgy2906/26/2025 10:44 AM EDTECHO TRANSTHORACIC W/ JWDNWPHKyzpvzq67/14/2025 10:43 AM EDTX-RAY : SPINE, ENKZMHNznuwsj85/14/2025 10:41 AM EDTMRI HEAD/BRAIN WO MCGFJIBHdvbyqg87/14/2025 10:41 AM EDTMRI LUMBAR SPINE WO CONTRASTRoutine 06/26/2025 10:40 AM EDTCT HIP LEFT WO IV RHIIHWBQBxvdbqn12/14/2025 10:39 AM EDT from Last 3 Months Results * XR hip right 2 or 3 views (07/10/2025 1:17 PM EDT)Anatomical RegionLaterality ModalityLower Extremities, HipRightRadiographic ImagingSpecimen (Source) Anatomical Location / LateralityCollection Method / VolumeCollection Time Received Time Narrative 07/11/2025 6:36 AM EDT Imaging Result: AP and lateral right hip: No acute fracture or dislocation Post surgical changes with plate to ??lateral femur and greater trochanter, no evidence of complication and chronic remodeled changes from prior proximal shaft femur fracture Femoral head well center with acetabulum with subchondral sclerosis noted to weight bearing surface and acetabulum and small subchondral cystic changes to femoral head Non obstructive bowel gas pattern and mild degenerative change to SI joint and lumbar spine on limited views Impression: 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 No hardware complication. Authorizing ProviderResult TypeResult StatusMattkendra Karimi PAI XR PROCEDURES Final Result * BLOOD CULTURE 2 (06/27/2025 12:40 PM EDT)ComponentValueRef RangeTest Method Analysis TimePerformed AtPathologist SignatureBLOOD CULTURE 2 ??Blood Culture 2 NG5D NO GROWTH AT 5 DAYS.^NO GROWTH AT 5 DAYS. TBHSpecimen (Source)Anatomical Location / LateralityCollection Method / Volume Collection TimeReceived Time06/27/2025 12:40 PM EDT1 12:44 PM EDT Narrative CLINISYNC - 07/02/2025 4:35 PM EDT LEFT HAND Authorizing ProviderResult TypeResult StatusGeneric External Data ProviderLAB BLOOD ORDERABLESFinal ResultPerforming OrganizationAddressCity/State/ZIP Code Phone Number [facility]YFORMERLY [facility] * BLOOD CULTURE 1 (06/27/2025 12:31 PM EDT)ComponentValueRef RangeTest Method Analysis TimePerformed AtPathologist SignatureBLOOD CULTURE 1 ??Blood Culture 1 NG5D NO GROWTH AT 5 DAYS.^NO GROWTH AT 5 DAYS. TBHSpecimen (Source)Anatomical Location / LateralityCollection Method / Volume Collection TimeReceived Time06/27/2025 12:31 PM EDT1 12:45 PM EDT Narrative SHAKA - 07/02/2025 4:35 PM EDT LEFT FOREARM Authorizing ProviderResult TypeResult StatusGeneric External Data ProviderLAB BLOOD ORDERABLESFinal ResultPerforming OrganizationAddressCity/State/ZIP Code Phone Number [facility] * CT cervical spine wo IV contrast (06/26/2025 10:47 AM EDT)Anatomical Region LateralityModalitySpine, C-spineComputed Tomography Narrative Authorizing ProviderResult TypeResult StatusNoms Provider Unallocated MDIMG CT PROCEDURESFinal Result * CT angiogram head and neck (06/26/2025 10:44 AM EDT)Anatomical Region LateralityModalityHead, NeckComputed Tomography Narrative Authorizing ProviderResult TypeResult StatusNoms Provider Unallocated MDIMG CT PROCEDURESFinal Result * ECHO TRANSTHORACIC W/ DOPPLER (06/26/2025 10:43 AM EDT)Anatomical Region LateralityModalityRadiographic Imaging Narrative Authorizing ProviderResult TypeResult StatusNoms Provider Unallocated MDIMG XR PROCEDURESFinal Result * X-RAY : SPINE, LUMBAR (06/26/2025 10:41 AM EDT)Anatomical RegionLaterality ModalityRadiographic Imaging Narrative Authorizing ProviderResult TypeResult StatusNoms Provider Unallocated MDIMG XR PROCEDURESFinal Result * MRI HEAD/BRAIN WO CONTRAS (06/26/2025 10:41 AM EDT)Anatomical RegionLaterality ModalityRadiographic Imaging Narrative Authorizing ProviderResult TypeResult StatusNoms Provider Unallocated MDIMG XR PROCEDURESFinal Result * MRI LUMBAR SPINE WO CONTRAST (06/26/2025 10:40 AM EDT)Anatomical Region LateralityModalityRadiographic Imaging Narrative Authorizing ProviderResult TypeResult StatusNoms Provider Unallocated MDIMG XR PROCEDURESFinal Result * CT hip left wo IV contrast (06/26/2025 10:39 AM EDT)Anatomical Region LateralityModalityLower Extremities, HipLeftComputed Tomography Narrative Authorizing ProviderResult TypeResult StatusNoms Provider Unallocated MDIMG CT PROCEDURESFinal Result from Last 3 Months Insurance Care Teams Team MemberRelationshipSpecialtyStart DateEnd Mono Knowles MD [address] [facility] [address] [place] [address] [facility] [place]09/13/21 Mono Knowles MD [address] [place] [address] PCP - GeneralFlorence [facility] Healthcaren[facility] Medicine03/01/23
--- OUTSIDE RECORDS SUMMARY | 2025-07-26 10:52 | XMS_ITS | Clinical Summary ---
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 found in the distal sigmoid colon, descending ? colon and proximal ascending colon. The polyps were 3 to 7 mm in size. ? These polyps were removed with a hot snare. Resection and retrieval were ? complete. ? A 3 mm polyp was found in the proximal ascending colon. The polyp was ? sessile. Fulguration to ablate the lesion by monopolar probe was ? successful. Estimated blood loss was minimal. ? The exam was otherwise without abnormality on direct and retroflexion ? views. Estimated Blood Loss: ??Estimated blood loss: none. Impression: ?- Diverticulosis in the sigmoid colon and in the ? descending colon. ? - Four 3 to 7 mm polyps in the distal sigmoid colon, ? in the descending colon and in the proximal ascending ? colon, removed with a hot snare. Resected and ? retrieved. ? - One 3 mm polyp in the proximal ascending colon. ? Treated with a monopolar probe. ? - The examination was otherwise normal on direct and ? retroflexion views. Recommendation: ?- Discharge patient to home. ? - Patient has a contact number available for ? emergencies. The signs and symptoms of potential ? delayed complications were discussed with the patient. ? Return to normal activities tomorrow. Written ? discharge instructions were provided to the patient. ? - Repeat colonoscopy in 3 years for surveillance based ? on pathology results. ? - Return to my office PRN. ? - High fiber diet for the rest of the patient's life. ? - Continue present medications. Procedure Code(s): ? --- Professional --- ? 93234, Colonoscopy, flexible; with ablation of ? tumor(s), polyp(s), or other lesion(s) (includes pre- ? and post-dilation and guide wire passage, when ? performed) ? 54118, 59, Colonoscopy, flexible; with removal of ? tumor(s), polyp(s), or other lesion(s) by snare ? technique Diagnosis Code(s): ? --- Professional --- ? D12.5, Benign neoplasm of sigmoid colon ? D12.4, Benign neoplasm of descending colon ? D12.2, Benign neoplasm of ascending colon ? R10.84, Generalized abdominal pain ? K57.30, Diverticulosis of large intestine without perforation or abscess ? without bleeding CPT copyright 2020 [employer]. All rights reserved. The codes documented in this report are preliminary and upon blending kettle tender review may be revised to meet current compliance requirements. DO Jonas Kebede DO 10/19/2022 11:15:06 AM Number of Addenda: 0 Note Initiated On: 10/19/2022 10:54 AM Procedure Note Jonas Butcher DO - 10/19/[address] [facility] Patient Name: Hakeem Escobedo Procedure Date No Time: 10/19/2022 CSN : [id number] Date of : 1945 Admit Type: Outpatient Age: 76 Room: [place] [address] Gender: Male Note Status: Finalized Attending MD: Jonas Butcher DO Procedure: Colonoscopy Indications: Generalized abdominal pain Providers: Jonas Butcher DO Referring MD: Jonas Butcher DO Medicines: Propofol per Anesthesia Complications: No immediate complications. Procedure: After I obtained informed consent, the scope was passed under direct vision. Throughout theprocedure, the patient's blood pressure, pulse, and oxygen saturations were monitored continuously. [facility] PCF-H[facility]DL # [id number] PEDIATRIC COLONOSCOPE was introduced through the anus [...] present medications. Procedure Code(s): --- Professional --- 02614, Colonoscopy, flexible; with ablation of tumor(s), polyp(s), or other lesion(s) (includespre- and post-dilation and guide wire passage, when performed) 38180, 59, Colonoscopy, flexible; with removal of tumor(s), polyp(s), or other lesion(s) by snare technique Diagnosis Code(s): --- Professional --- D12.5, Benign neoplasm of sigmoid colon D12.4, Benign neoplasm of descending colon D12.2, Benign neoplasm of ascending colon R10.84, Generalized abdominal pain K57.30, Diverticulosis of large intestine without perforation orabscess without bleeding CPT copyright 2020 [employer]. All rights reserved. The codes documented in this report are preliminary and upon blending kettle tender reviewmay be revised to meet current compliance requirements. DO Jonas Kebede DO 10/19/2022 11:15:06 AM Number of Addenda: 0 Note Initiated On: 10/19/2022 10:54 AM Authorizing ProviderResult TypeResult StatusMicaspen ZUNIGAI PROCEDURE ORDERABLESFinal ResultPerforming OrganizationAddressCity/State/[facility] CodePhone Number PM CARDIOVASCULAR from Last 3 Months or Most Recently Relevant to Health Maintenance Insurance * Guarantor: Rosina Escobedo TypeRelation to PatientDate of BirthPhone Billing AddressPersonal/DwpgdcOiab66/20/1946 [address] [address] Advance Directives * Full Code (Latest Code Status on File) Date ActivatedDate InactivatedComments10/06/2024 5:47 PM10/07/2024 4:30 PM * Full Code Date ActivatedDate AagvpjafaotPfjyuhwk54/28/2024 2:26 PM08/12/2024 4:45 PM * Full Code Date ActivatedDate InactivatedComments09/16/2020 4:17 PM09/21/2020 9:26 PM * Full Code Date ActivatedDate InactivatedComments01/23/2017 2:35 PM01/24/2017 6:12 PM Care Teams Team MemberRelationshipSpecialtyStart DateEnd Date Mono Knowles MD [address] [address] [facility]10/06/24
--- OUTSIDE RECORDS SUMMARY | 2025-07-26 10:52 | XMS_ITS | Encounter Summary ---
Author Organization [facility] Address [address] [place] [address] Care Team Providers Care Veterans Rehabilitation Counselor Name Role Phone Mono Knowles MD Unavailable [phone] Mono Knowles MD Primary Care Provider [phone] Encounter Details DateTypeDepartmentCare Team (Latest Contact Info)Alancmgnrzv68/12/2025Telephone [facility] [address] [place] [address] Mono Knowles MD [address] [place] [address] Social History Tobacco UseTypesPacks/DayYears UsedDateSmoking Tobacco: FormerCigarettesQuit: 09/13/2000Smokeless Tobacco: Never Comments:Quit smoking 10 yea rs ago Alcohol UseStandard Drinks/WeekCommentsNever0 (1 standard drink = 0.6 oz pure alcohol)Caffeine 1-2 cups/typU4933 Health LiteracyAnswerDate RecordedHow often do you need to have someone help you when you read instructions, pamphlets, or other written material from your doctor or pharmacy?Ozhjdxwja89/03/2024 Humiliation, Afraid, Rape, and Kick questionnaireAnswerDate RecordedWithin [...] relatives?Once a week06/04/2023How often do you attend baptism or church services?More than 4 times per year06/04/2023o you belong to any clubs or organizations such as baptism groups, unions, fraternal or athletic groups, or school groups?No 06/04/2023How often do you attend meetings of the clubs or organizations you belong to?Never06/04/2023re you , , , , never , or living with a partner?Living with hryyrmh3106/04/2023UDIT-CAnswerDate RecordedQ1: How often do you have a [...] heating?Not hard at all06/04/2023HQ-2AnswerDate RecordedPatient Health Questionnaire-2 Urrnb766[facility] [place] of Occupational Health - Occupational Stress QuestionnaireAnswerDate RecordedDo you feel stress - tense, restless, nervous, or anxious, or unable to sleep at night because yourmind is troubled all the time - these days?To some ethmnf6506/04/2023 Exercise Vital SignAnswerDate RecordedOn average, how many [...] steady place to sleep or slept in zendaelter (including now)?No06/04/2023Sex and Gender InformationValueDate RecordedSex Assigned at BirthNot on fileLegal PmuQyla7311/25/2022 6:55 PM EDT Gender IdentityNot on fileSexual OrientationNot on filedocumented as of this encounter Miscellaneous Notes * Telephone Encounter - Damaris Dao - 07/25/2025 5:26 PM EST Pt partner cb and she wanted to know if another abx could be sent in. I sent a chat to Reina Martinez who is school commissioner and she responded Please have them f/u with the office tomorrow. The ATB is still in his system as it has just ended today pt is aware * Telephone Encounter - Zee Alvarez - 07/25/2025 11:28 AM EST Patient finished his antibiotic but is not feeling any better, he is coming in for an appointment on Wednesday but wondered if something could be called in for him before then. documented in this encounter Plan of Treatment DateTypeDepartmentCare Team (Latest Contact Info)Iqdtbfrtzpj90/14/2025 9:15 AM ESTOffice Visit [facility] [place] [facility] [address] [place] [address] Mono Knowles MD [address] [place] [address] documented as of this encounter Visit Diagnoses Not on filedocumented in this encounter Care Teams Team MemberRelationshipSpecialtyStart DateEnd Date Mono Knowles MD [address] [place] [address] PCP - Jonathan FLORES09/13/21 Mono Knowles MD [address] [place] [address] PCP - GeneralInternal Medicine03/01/23documented as of this encounter
--- OUTSIDE RECORDS SUMMARY | 2025-07-26 10:52 | XMS_ITS | Encounter Summary ---
Author Organization [facility] Address [address] [place] [address] Care Team Providers Care Deaf/Hard Of Hearing Specialist Name Role Phone Mono Knowles MD Unavailable [phone] Mono Knowles MD Primary Care Provider [phone] Encounter Details DateTypeDepartmentCare Team (Latest Contact Info)Sohopwekdix77/29/2025Patient Outreach [facility] POPULATION [facility] [address] [place] [address] Shelby Millard LPN Social History Tobacco UseTypesPacks/DayYears UsedDateSmoking Tobacco: FormerCigarettesQuit: 09/13/2000Smokeless Tobacco: Never Comments:Quit smoking 10 yea rs ago Alcohol UseStandard Drinks/WeekCommentsNever0 (1 standard drink = 0.6 oz pure alcohol)Caffeine 1-2 cups/vvxZ3611 Health LiteracyAnswerDate RecordedHow often do you need to have someone help you when you read instructions, pamphlets, or other written material from your doctor or pharmacy?Ohaerbjho23/03/2024 Humiliation, Afraid, Rape, and Kick questionnaireAnswerDate RecordedWithin [...] relatives?Once a week06/04/2023How often do you attend zoroastrian or congregational services?More than 4 times per year06/04/2023o you belong to any clubs or organizations such as zoroastrian groups, unions, fraAcumen or athletic groups, or school groups?No 06/04/2023How often do you attend meetings of the clubs or organizations you belong to?Never06/04/2023re you , , , , never , or living with a partner?Living with jffgszt4606/04/2023UDIT-CAnswerDate RecordedQ1: How often do you have a [...] heating?Not hard at all06/04/2023HQ-2AnswerDate RecordedPatient Health Questionnaire-2 Avqto135[facility] [place] of Occupational Health - Occupational Stress QuestionnaireAnswerDate RecordedDo you feel stress - tense, restless, nervous, or anxious, or unable to sleep at night because yourmind is troubled all the time - these days?To some ctswqh1106/04/2023 Exercise Vital SignAnswerDate RecordedOn average, how many [...] InformationValueDate RecordedSex Assigned at BirthNot on fileLegal KfmHxeh9111/25/2022 6:55 PM EDT Gender IdentityNot on fileSexual OrientationNot on filedocumented as of this encounter Progress Notes * Shelby Millard LPN - 07/11/2025 4:30 PM EDT <July 11, 2025, 16:31 - Shelby Millard LPN> Attempted to reach out to pt x2 no answer and no return call. Discharge summary in chart. Unable toreach for snf to home DANNY Not Completed. Closing program * ALBANIA Gardner - 07/11/2025 4:30 PM EDT Acknowledged documented in this encounter Plan of Treatment DateTypeDepartmentCare Team (Latest Contact Info)Itbjttolkpw06/14/2025 9:15 AM ESTOffice Visit [facility] [place] [facility] [address] [place] [address] Mono Knowles MD [address] [facility] [address] [place] [address] documented as of this encounter Visit Diagnoses Not on filedocumented in this encounter Care Teams Team MemberRelationshipSpecialtyStart DateEnd Date Mono Knowles MD [address] [facility] [address] [place] [address] PCP - Jonathan FLORES/10/04 Mono Knowles MD [address] [facility] [address] [place] [address] PCP - GeneralInternal Medicine03/01/23documented as of this encounter
--- OUTSIDE RECORDS SUMMARY | 2025-07-26 10:52 | XMS_ITS | Encounter Summary ---
Author Organization [facility] Address [address] [place] [address] Care Team Providers Care Web Content & Social Media Manager Name Role Phone Mono Knowles MD Unavailable [phone] Mono Knowles MD Primary Care Provider [phone] Encounter Details DateTypeDepartmentCare Team (Latest Contact Info)Wjcozsvxgcp10/05/2025Telephone [facility] [place] [facility] [address] [place] [address] oMno Knowles MD [address] [place] [address] Social History Tobacco UseTypesPacks/DayYears UsedDateSmoking Tobacco: FormerCigarettesQuit: 09/13/2000Smokeless Tobacco: Never Comments:Quit smoking 10 yea rs ago Alcohol UseStandard Drinks/WeekCommentsNever0 (1 standard drink = 0.6 oz pure alcohol)Caffeine 1-2 cups/kgbB7886 Health LiteracyAnswerDate RecordedHow often do you need to have someone help you when you read instructions, pamphlets, or other written material from your doctor or pharmacy?Vjmzchcxp32/03/2024 Humiliation, Afraid, Rape, and Kick questionnaireAnswerDate RecordedWithin [...] relatives?Once a week06/04/2023How often do you attend congregation or jehovah's witness services?More than 4 times per year06/04/2023o you belong to any clubs or organizations such as congregation groups, unions, fraternal or athletic groups, or school groups?No 06/04/2023How often do you attend meetings of the clubs or organizations you belong to?Never06/04/2023re you , , , , never , or living with a partner?Living with perzjgf4206/04/2023UDIT-CAnswerDate RecordedQ1: How often do you have a [...] heating?Not hard at all06/04/2023HQ-2AnswerDate RecordedPatient Health Questionnaire-2 Ulkwm489[facility] [place] of Occupational Health - Occupational Stress QuestionnaireAnswerDate RecordedDo you feel stress - tense, restless, nervous, or anxious, or unable to sleep at night because yourmind is troubled all the time - these days?To some paqdrz6106/04/2023 Exercise Vital SignAnswerDate RecordedOn average, how many [...] steady place to sleep or slept in savoongaelter (including now)?No06/04/2023Sex and Gender InformationValueDate RecordedSex Assigned at BirthNot on fileLegal BqvFgra8611/25/2022 6:55 PM EDT Gender IdentityNot on fileSexual OrientationNot on filedocumented as of this encounter Miscellaneous Notes * Telephone Encounter - Summer Kay MA - 07/18/2025 9:29 AM EST Pt notified * Telephone Encounter - Mono Knowles MD - 07/18/2025 9:14 AM EST Rx was sent. If he's not improving he really needs to go to the ER. * Telephone Encounter - Marti Rodriguez - 07/18/2025 8:39 AM EST Peace called, she stated Hakeem could not come in today because he was not feeling well. She statedhe was weezing and coughing really bad and asked if Dr. Knowles could send something in for him. She states he will not go to the ER because he thinks they will admit him again. I suggested they not wait if he was feeling that bad but she said he will not go. Please advise. documented in this encounter Plan of Treatment DateTypeDepartmentCare Team (Latest Contact Info)Jyyivvqjlab71/14/2025 9:15 AM ESTOffice Visit [facility] [place] [facility] [place] [address] [facility] [address] [place] [address] Mono Knowles MD [address] [facility] [address] [place] [address] documented as of this encounter Visit Diagnoses Diagnosis Acute bronchitis, unspecified organism- Primary documented in this encounter Care Teams Team MemberRelationshipSpecialtyStart DateEnd Date Mono Knowles MD [address] [facility] [address] [place] [address] PCP - Jonathan FLORES09/13/21 Mono Knowles MD [address] [facility] [address] [place] [address] PCP - GeneralInternal Medicine03/01/23documented as of this encounter
--- OUTSIDE RECORDS SUMMARY | 2025-07-26 10:52 | XMS_ITS | Encounter Summary ---
Author Organization [facility] Address [address] [facility] [place] [address] Care Team Providers Care Smokehouse Worker Name Role Phone Mono Knowles MD Unavailable [phone] Mono Knowles MD Primary Care Provider [phone] Reason for Visit * ReasonOnset DateCommentsMed Vzwfjv7407/18/2025 Encounter Details DateTypeDepartmentCare Team (Latest Contact Info)Rhcowgiavoo19/05/2025Refill [facility] [place] [facility] [address] [place] [address] Mono Knowles MD [address] [place], [place] [address] Anxiety Social History Tobacco UseTypesPacks/DayYears UsedDateSmoking Tobacco: FormerCigarettesQuit: 09/13/2000Smokeless Tobacco: Never Comments:Quit smoking 10 yea rs ago Alcohol UseStandard Drinks/WeekCommentsNever0 (1 standard drink = 0.6 oz pure alcohol)Caffeine 1-2 cups/vhfA9846 Health LiteracyAnswerDate RecordedHow often do you need to have someone help you when you read instructions, pamphlets, or other written material from your doctor or pharmacy?Bikkyhthr55/03/2024 Humiliation, Afraid, Rape, and Kick questionnaireAnswerDate RecordedWithin [...] relatives?Once a week06/04/2023How often do you attend orthodoxy or synagogue services?More than 4 times per year06/04/2023o you belong to any clubs or organizations such as orthodoxy groups, unions, fraTandemLaunch or athletic groups, or school groups?No 06/04/2023How often do you attend meetings of the clubs or organizations you belong to?Never06/04/2023re you , , , , never , or living with a partner?Living with igpdjbq5806/04/2023UDIT-CAnswerDate RecordedQ1: How often do you have a [...] heating?Not hard at all06/04/2023HQ-2AnswerDate RecordedPatient Health Questionnaire-2 Vhewv262F[facility] [place] of Occupational Health - Occupational Stress QuestionnaireAnswerDate RecordedDo you feel stress - tense, restless, nervous, or anxious, or unable to sleep at night because yourmind is troubled all the time - these days?To some lcivhu4806/04/2023 Exercise Vital SignAnswerDate RecordedOn average, how many [...] steady place to sleep or slept in [facility] (including now)?No06/04/2023Sex and Gender InformationValueDate RecordedSex Assigned at BirthNot on fileLegal PdiQqgy1511/25/2022 6:55 PM EDT Gender IdentityNot on fileSexual OrientationNot on filedocumented as of this encounter Miscellaneous Notes * Telephone Encounter - ALBANIA Gardner - 07/18/2025 10:05 AM EST OARRS reviewed, Rx sent into patient's pharmacy. documented in this encounter Plan of Treatment DateTypeDepartmentCare Team (Latest Contact Info)Nflfetpiuds63/14/2025 9:15 AM ESTOffice Visit [facility] [place] [address] [facility] [address] [place] [address] Mono Knowles MD [address] [facility] [address] [place] [address] documented as of this encounter Visit Diagnoses Diagnosis Anxiety Anxiety state, unspecified documented in this encounter Care Teams Team MemberRelationshipSpecialtyStart DateEnd Date Mono Knowles MD [address] [facility] [address] [place] [address] PCP - Jonathan FLORES09/13/21 Mono Knowles MD [address] [facility] [address] [place] [address] PCP - GeneralInternal Medicine03/01/23documented as of this encounter
--- OUTSIDE RECORDS SUMMARY | 2025-07-26 10:52 | XMS_ITS | Clinical Summary ---
Author Organization [facility] Address [address] [facility], [address] [place] [address] Care Team Providers Care Sample Card Maker Name Role Phone Mono Knowles MD Primary Care Provider [phone] Allergies No known active allergies Medications MedicationSigDispense QuantityRefillsLast FilledStart DateEnd DateStatus zolpidem (AMBIEN) 5 MG tablet Take 5 mg by mouth nightly.Active aspirin 325 MG tablet Take 1 tablet by mouth daily. 30 tablet 6009/23/2013ctive nitroGLYCERIN (NITROSTAT) 0.[address] 1 tablet under the tongue every 5 minutes as needed for Chest pain. 25 tablet ctive simvastatin (ZOCOR) 20 MG tablet Take 1 tablet by mouth nightly. 30 tablet 6009/23/2013ctive carvedilol (COREG) 25 MG tablet Take 1 tablet by mouth 2 times daily (with meals). 60 tablet 6009/23/2013ctive prasugrel (EFFIENT) 10 MG TABS Take 1 tablet by mouth daily. 30 tablet 6009/23/2013ctive Active Problems ProblemNoted DateDiagnosed DateUnstable oxkdeq3009/22/2013 Overview (09/22/2013): Transfer from [facility] HTN (hypertension)09/22/20132854Simrqjjwwcbwsm63/10/2014Stented coronary artery 09/22/2013 Overview (09/22/2013): VANGIE in mid LAd Family History Medical HistoryRelationNameCommentsArthritisMotherHeart DiseaseMotherRelation NameStatusCommentsMother Social History Tobacco UseTypesPacks/DayYears UsedDateSmoking Tobacco: NeverAlcohol UseStandard Drinks/WeekCommentsNo0 (1 standard drink = 0.6 oz pure alcohol)Sex and Gender InformationValueDate RecordedSex Assigned at BirthNot on fileLegal SexMale 10/23/2012 12:56 PM ESTGender IdentityNot on fileSexual OrientationNot on file Last Filed Vital Signs Vital SignReadingTime TakenCommentsBlood Lwtsjrgk096/7001 11:15 AM EST Rwjco528309/30/2013 11:15 AM NVDYhpndaaurgk51.9 ??C (98.4 ??F)05/03/2020 9:29 AM EDTRespiratory Nrzo880809/30/2013 11:15 AM ESTOxygen Jhentmywuc15%09/30/2013 11:15 AM ESTInhaled Oxygen Concentration--Xldxhz77.9 kg (185 lb)05/03/2020 9:29 AM EDT Axmtps015.6 cm (5' 6 )05/03/2020 9:29 AM EDTBody Mass Index29.8605/03/2020 9:29 AM EDT Plan of Treatment Not on file Insurance * Guarantor: Rosina Escobedo TypeRelation to PatientDate of BirthPhone Billing AddressPersonal/HgdnzgJvzk12/20/1946 [address] [address] * Guarantor: Dale Escobedount TypeRelation to PatientDate of BirthPhone Billing AddressPersonal/FnhzevFadg14/20/1946 [address] [address] Advance Directives * Full Code (Latest Code Status on File) Date ActivatedDate InactivatedComments09/22/2013 5:57 PM09/23/2013 6:43 PM Care Teams Team MemberRelationshipSpecialtyStart DateEnd Date Mono Knowles MD PCP - GeneralInternal Medicine05/03/20
[2025-07-26 11:05] LABS: Alanine Aminotransferase 28 U/L (16-63); Albumin Globulin Ratio 1.0; Albumin Level 3.2 g/dL (3.4-5.0); Alkaline Phosphatase 96 U/L (46-116); Anion Gap 11.1; Aspartate Amino Transferase 19 U/L (15-37); Blood Urea Nitrogen 20.0 mg/dL (7.0-18.0); Calcium 8.0 mg/dL (8.5-10.1); Carbon Dioxide 25.0 mmol/L (21.0-32.0); Chloride 113 mmol/L (98-107); Estimated GFR (African America 55 (>=60 mL/min/1.73m^2); Estimated GFR (Non-African Ame 45 (>=60 mL/min/1.73m^2); Globulin 3.2 g/dL; Glucose 93 mg/dL (74-106); Potassium 4.1 mmol/L (3.5-5.1); Sodium 145 mmol/L (136-145); Total Protein 6.4 g/dL (6.4-8.2)
[2025-07-26] MEDS: IPRATROPIUM/ALBUTEROL SULFATE 3 ML AMPUL.NEB IH (12:08)
--- NOTE | 2025-07-26 13:15 | SWNOTE1 ---
MAKSIM received a call from Dr. Dior inquiring about placement. SW did let her know that pt is a precert to go skilled anywhere. At the time MAKSIM was speaking to Dr. Dior, the hospitalist Dr. Maya was reaching out to in regards to patient. At this time it was determine pt will be admitted as OBS to the med/surge floor. Pt will need rehab. MAKSIM called pt's friend, Peace, to discuss placement. Peace is familiar with all the facilities in [place] and she would like him to go to [facility]. MAKSIM did discuss with Peace that pt has been to the hospital a few times within the past 2 months and pt may want to consider intermediate placement at a faciltiy. Peace stated that she takes care of him at [facility] and he does not want terminal carman placement. She stated she just wants him to get rehab. She did ask why he is so weak and what the found medically. MAKSIM informed Peace that SW is unsure in regards to medical findings and a nurse of physician will reach out. She voiced understanding. MAKSIM went down and spoke with pt in ED. Dr. Maya in room as well. Pt voiced he was getting around alright at home after leaving the [facility]. He then felt weak and was not able to get around and he is unsure what is wrong. He did let us know he is not able to return to the [facility]. He mentioned going to [place] back to [facility]? MAKSIM did inform him that SW spoke to Peace and Peace recommended he goes to [facility] in [place] for rehab. Pt is in agreement with this. SW to work on getting pt to [facility] for rehab. MAKSIM called Cindy at [facility], Cindy was unavailable and will have to call SW back. MAKSIM sent email to Lisha at [facility]. MAKSIM called outpt therapy and spoke to physician office secretary. SW requested PT comes over today to see pt so we can go precert started. [place] will inform Steph.
--- NOTE | 2025-07-26 13:17 | PM.IMHP1 ---
Internal Medicine - H&P: HPI History of Present Illness Chief complaint: WEAKNESS Narrative: Mr Escobedo is a [id number] with a past medical history notable for COPD, hypertension, CKD who presents hospital today with chief complaint of weakness. He was recent discharged to our facility and June 29 where he was discharged to a assisted facility. He says he was doing well there with ambulation, he was subsequently discharged from there about a week ago and has had a steady decline at home since then. He has been attempting to do his therapy and walking at home after discharge however notices last day or so his legs have been getting extremely weak, today with ambulation his legs felt very wobbly. He has not had any falls. He was unable to get out of the bed later on and today after he fell wobbly. 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, unspecified degree (ICD-10) Stroke ?I63.9 - Cerebral infarction, unspecified (ICD-10) Syncope ?R55 - Syncope and collapse (ICD-10) Seizure disorder ?G40.909 - Epilepsy, unspecified, not intractable, without status epilepticus (ICD-10) CAD (coronary artery disease) ?I25.10 - Atherosclerotic heart disease of unga coronary artery without angina pectoris (ICD-10) Surgical History H/O heart artery stent ?Z95.5 - Presence of coronary angioplasty implant and graft (ICD-10) Social History Within the past year, how often did you have a drink containing alcohol: never Within the past year, how often did you have six or more drinks on one occasion: never Score interpretation: A score less than 4 is consistent with normal alcohol consumption. Smoking status: Former smoker Non-prescribed substance use: denies use Previous occupational history: Retired from [employer]. Highest level of school completed/degree received: 8th grade Do you want help with school or training: No Are you now , , , , never or living with a partner: In a typical week, how many times do you talk on the telephone with family, friends, or neighbors: 3 or more times per week How often do you get together with friends or relatives: 3 or more times per week How often do you attend confucianism or islam services: 1-3 times per year Do you belong to any clubs or organizations such as confucianism groups unions, [employer] or athletic groups, or school groups: no Total score: 1 Score interpretation: A score of less than or equal to 1 indicates the most socially isolated. Little interest or pleasure in doing things: not at all Feeling down, depressed, or hopeless: not at all Feel stressed/tense/nervous/anxious/difficulty sleeping: not at all Due to disability, difficulty making decisions: No Do you think of yourself as: straight/heterosexual Gender Identity: male Meds Home Medications and Allergies Home Medications ?Medication ?Instructions ?Recorded ?Confirmed ?Type pantoprazole 40 mg tablet,delayed 40 mg PO DAILY #30 tabs 10/24/23 07/26/25 Rx release (Protonix) allopurinol 100 mg tablet 100 mg PO DAILY 06/21/24 07/26/25 History gabapentin 300 mg capsule 300 mg PO BEDTIME 06/21/24 07/26/25 History simvastatin 40 mg tablet 40 mg PO BEDTIME 06/21/24 07/26/25 History clopidogrel 75 mg tablet 75 mg PO DAILY 05/26/25 07/26/25 History amlodipine 2.5 mg tablet 2.5 mg PO DAILY 06/27/25 07/26/25 History colchicine 0.6 mg capsule 0.6 mg PO MOWEFR@0900 06/27/25 07/26/25 History meclizine 25 mg tablet 25 mg PO TID PRN dizziness 06/27/25 07/26/25 History sucralfate 1 gram tablet 1 g PO TID 06/27/25 07/26/25 History alprazolam 1 mg tablet 1 mg PO BID 07/26/25 07/26/25 History carvedilol 25 mg tablet 25 mg PO BID 07/26/25 07/26/25 History celecoxib 200 mg capsule 200 mg PO DAILY pain 07/26/25 07/26/25 History hydrocodone 10 mg-acetaminophen 1 tab PO Q12H 07/26/25 07/26/25 History 325 mg tablet zolpidem 10 mg tablet 10 mg PO BEDTIME 07/26/25 07/26/25 History Allergies Allergy/AdvReac Type Severity Reaction Status Date / Time No Known Drug Allergies Allergy Verified 07/26/25 10:03 Exam Narrative Exam Narrative: General: Awake alert, appears comfortable HEENT: head atraumatic, normocephalic, moist mucous membranes, small areas of red plaques on his forehead, looks like some sort of dermatitis. White psoriasis plaques on his mitchell Neck: supple no masses, no lymphadenopathy CVS: regular rate and rhythm, no murmurs or gallops Respiratory: Decreased air movement throughout left, wheezes appreciated GI: soft, nondistended, nontender, positive bowel sounds Extremity: moves all extremities, no restrictions of movements, no calf tenderness, no edema Neuro: AOx3, CN II-VII intact. Moves all extremities in all planes of motion. Skin: dry, intact no rashes or lesions Constitutional Vital Signs, click to edit/add: Last Vital Signs Temp 98.9 F 07/26/25 10:04 Pulse 80 07/26/25 12:40 Resp 14 07/26/25 12:40 BP 124/85 07/26/25 12:30 Pulse Ox 94 L 07/26/25 12:40 O2 Del Method Room Air 07/26/25 12:08 Internal Medicine - H&P: Reslt Labs Labs: Short CBC 07/26/25 Range/Units 10:35 WBC 5.4 (4.0-11.0) 10^3/uL Hgb 13.3 L (14.0-18.0) g/dL Hct 40.7 L (42.0-54.0) % Plt Count 187 (150-450) 10^3/uL BMP 07/26/25 10:35 Sodium 145 Potassium 4.1 Chloride 113 H Carbon Dioxide 25.0 BUN 20.0 H Creatinine 1.50 H Glucose 93 Calcium 8.0 L Liver Function 07/26/25 Range/Units 10:35 Total Bilirubin 0.4 (0.2-1.0) mg/dL AST 19 (15-37) U/L ALT 28 (16-63) U/L Alkaline Phosphatase 96 (46-116) U/L Albumin 3.2 L (3.4-5.0) g/dL Assessment and Plan Assessment and Plan (1) Ambulatory dysfunction: Assessment and Plan: ? Denies any falls since being home from SNF for roughly 1 week ? Steady decline, currently unable to ambulate more than or 3 steps with a walker ? Therapy consulted ? Likely will require SNF upon discharge, at this point in time he is unsafe to discharge home and if we did that he would like to come back with a traumatic injury (2) HTN (hypertension): Assessment and Plan: Continue his home medications as ordered ? According to the last discharge summary from June 29 he was on amlodipine 2.5 mg daily and that it, his Coreg was discontinued Qualifiers: Hypertension type: primary hypertension Qualified Code(s): I10 - Essential (primary) hypertension (3) CKD stage 3a, GFR 45-59 ml/min: Assessment and Plan: Stable, no IRINA noted (4) COPD (chronic obstructive pulmonary disease): Assessment and Plan: ? Currently saturating well on room air, he denies any breathing issues, he denies any coughing ? Albuterol as needed Plan ? DVT prophylaxis addressed ? Regular diet ? Full code
--- OUTSIDE RECORDS SUMMARY | 2025-07-26 13:48 | XMS_ITS | CCD ---
Author Organization [place] [facility] Team Providers Care On Air Announcer Name Role Phone DR MONO KNOWLES Attending Unavailable ESHA, DR FOREMAN Primary Care Unavailable DR MONO KNOWLES Admitting Unavailable Mono Knowles MD Unavailable [phone] Mono Knowles MD Primary Care Provider [phone] Mono Knowles MD Primary Care Provider [phone] Mono Knowles MD Primary Care Provider [phone] Caroline FRANCO, Summer Unavailable Mono Knowles MD Primary Care Provider [phone] Johnston SOLAR THERMAL TECHNICIAN, Ruth Unavailable Unavailable Johnston SOLAR THERMAL TECHNICIAN, Ruth Unavailable Johnston SOLAR THERMAL TECHNICIAN, Ruth Unavailable MONO KNOWLES Primary Care Unavailable INPATIENT, TELENEUROLOGY Consulting Unavail able MONO KNOWLES Referring Unavailable MONO KNOWLES Primary Care Unavailable MONO KNOWLES Referring Unavailable MONO KNOWLES Primary Care Unavailable MONO KNOWLES Referring Unavailable MONO KNOWLES Primary Care Unavailable MONO KNOWLES Referring Unavailable MONO KNOWLES Primary Care Unavailable MONO KNOWLES Referring Unavailable MONO KNOWLES Primary Care Unavailable Caroline FRANCO, Summer Unavailable [phone] MONO KNOWLES Attending Unavailable NORMA JIN Attending Unavailable MONO KNOWLES Referring Unavailable DON FENTON Attending Unavailable ISABELLA EVRA Referring Unavailable TYLER SANCHEZ Attending Unavailable MONO KNOWLES Attending Unavailable MONO KNOWLES Attending Unavailable KE SANCHEZ Referring Unavailable KE SANCHEZ Referring Unavailable MONO KNOWLES Attending Unavailable KNOWLES, MONO B Attending Unavailable KAMI THOMASON Attending Unavailable MONO KNOWLES Attending Unavailable DAGMAR KARIMI Attending Unavailable DAGMAR KARIMI Referring Unavailable MNOO KNOWLES Attending Unavailable MARYLOU LARRY Attending Unavailable ESHA MONO B Referring Unavailable KNOWLES, MONO B Primary Care Unavailable KNOWLES, MONO B Primary Care Unavailable NATALIO JACKSON Attending Unavailable ESHA MONO B Primary Care Unavailable CAROLYNE SPIVEY Attending Unavailable ESHA MONO B Referring Unavailable ESHA MONO B Primary Care Unavailable ESHA MONO B Primary Care Unavailable LOU HONG Attending Unavailable KIMBERLEE CRUZ Admitting Unavailable ESHA MONO B Primary Care Unavailable JOMAR SCHWARTZ Attending Unavailable ROBERT CURRY Admitting Unavailable ESHA MONO B Primary Care Unavailable CAROLYNE MCINTYRE Attending Unavailable MONO KNOWLES B Primary Care Unavailable CAROLYNE MCINTYRE Attending Unavailable Allergies Allergy ClassificationReported Allergen(s)Allergy TypeDate of OnsetReaction(s) FacilityUnclassified (1 source)Pneumovax 23Drug allergy (disorder)[facility] (20 sources)Pneumococcal 20-Danay Conj VaccDrug Soczinsgqee35-24-0156StlsbbfzVKKN Healthcare Work Phone: (20 sources)Pneumococcal Vac PolyvalentDrug Ksvlrol70-74-5772DzowbcflGYZA Healthcare (15 sources)Streptococcus pneumoniae type 1 capsular polysaccharide antigen / Streptococcus pneumoniae type 10Acapsular polysaccharide antigen / Streptococcus pneumoniae type 11A capsular polysaccharide antigen/ Streptococcus pneumoniae type 12F capsular polysaccharide antigen / Streptococcus pneumoniae type14 capsular polysaccharide antigen / Streptococcus pneumoniae type 15B capsular polysaccharide antigen / Streptococcus pneumoniae type 17F capsular polysaccharide antigen / Streptococcus pneumoniae type 18C capsular polysaccharide antigen / Streptococcus pneumoniae type 19A capsular polysaccharide antigen / Streptococcus pneumoniae type 19F capsular polysaccharide antigen / Streptococcus pneumoniae type 2 capsular polysaccharide antigen / Streptococcus pneumoniae type 20 capsular polysaccharideantigen / Streptococcus pneumoniae type 22F capsular polysaccharide [...] capsular polysaccharide antigen; Translations: [PNEUMOCOCCAL 23-DANAY PS VACCINE]Drug Udvczir62-83-2267JqdqhazlFgxDnvzky [facility] Medications Current Medications MedicationDrug Class(es)DatesSig (Normalized)Sig (Original)acetaminophen 325 mg / HYDROcodone bitartrate 10 mg oral tablet (20 sources)Opioid AgonistStart: 04-27-2024 End: 43-66-7002ywfi 1 tablet by mouth every six hours for painHYDROcodone- acetaminophen ([place]) 10-325 MG tablet Indications: Cervical stenosis of spinal canal Take 1 tablet by mouth every 6 (six) hours if needed for severe pain 120 tablet 07/09/2025 08/08/2025tiveStart: 35-79-1960sseb 1 tablet by mouth every six hours for painHYDROcodone-acetaminophen ([place]) 10-325 MG tablet Indications: Cervical stenosis of spinal canal Take 1 tablet by mouth every 6 (six) hours if needed for severe pain 120 tablet 0 10/06/2023 ActiveStart: 93-18-4730PWNXEjcaanm-acetaminophen ([place]) 10-325 mg per tablet as needed. 01/14/2022 Activeallopurinol 100 mg oral tablet (20 sources)Xanthine Oxidase InhibitorStart: 79-66-3364gece 1 tablet by mouth once dailyallopurinol (Zyloprim) 100 MG tablet Indications: Mixed hyperlipidemia Take 1 tablet (100 mg) by mouth Daily 100 tablet 3 02/27/2025 ActiveALPRAZolam 1 mg oral tablet (20 sources)BenzodiazepineStart: 05-15-2025 End: 65-06-3974fyfp 1 tablet by mouth in the morningALPRAZolam (Xanax) 1 MG tablet Indications: Anxiety Take 1 tablet (1 mg) by mouth in the morning and 1 tablet (1 mg) before bedtime. 60 tablet 07/18/2025 08/17/2025 ActiveStart: 03-03-2024 End: 78-14-7902kygh 1 tablet by mouth in the morningALPRAZolam (Xanax) 1 MG tablet Indications: Anxiety Take 1 tablet (1 mg) by mouth in the morning and 1 tablet (1 mg) before bedtime. 60 tablet 04/11/2025 05/11/2025 Discontinued (Reorder)Start: 43-93-3803fkrf 1 tablet by mouth every six hours as needed for anxiety and anxiety and anxietyALPRAZolam (Xanax) 1 MG tablet Indications: Anxiety Take 1 tablet (1 mg) by mouth every 6 (six) hours if needed for anxiety 60 tablet 3 09/30/2023 Activetake 1 tablet by mouth once daily as needed for anxietyALPRAZolam (XANAX) 1 mg tablet Take 1 tablet (1 mg total) by mouth nightly as needed for anxiety. ActiveamLODIPine 2.5 mg oral tablet (20 sources)Dihydropyridine Calcium Channel BlockerStart: 06-18-2023 End: 42-78-3211ukuh 1 tablet by mouth once dailyamLODIPine (Norvasc) 2.5 MG tablet Indications: Benign essential hypertension Take 1 tablet (2.5 mg) by mouth Daily 90 tablet 3 07/28/2024 07/28/2025 Activeamoxicillin 875 mg oral tablet (3 sources)Penicillin-class AntibacterialStart: 05-24-2024 End: 39-58-2730cmzg 1 tablet by mouth in the morningamoxicillin (Amoxil) 875 MG tablet Indications: Parotiditis Take 1 tablet (875 mg) by mouth in the morning and 1 tablet (875 mg) before bedtime. Do all this for 10 days. 20 tablet 05/24/2024 06/03/2024 Activeamoxicillin 875 mg / clavulanate 125 mg oral tablet (8 sources)Penicillin-class AntibacterialStart: 06-25-2025 End: 53-01-5625cben 1 tablet by mouth in the morningamoxicillin-clavulanate (Augmentin) 875-125 MG tablet Indications: Acute bronchitis, unspecified org anism Take 1 tablet (875 mg) by mouth in the morning and 1 tablet (875 mg) before bedtime. Do all this for 10 days. 20 tablet 06/25/2025 07/05/2025 Active Start: 02-28-2025 End: 76-36-0147mvso 1 tablet by mouth in the morningamoxicillin-clavulanate (Augmentin) 875-125 MG tablet Indications: Acute non-recurrent sinusitis, un specified location Take 1 tablet (875 mg) by mouth in the morning and 1 tablet (875 mg) before bedtime. Do all this for 10 days. 20 tablet 02/28/2025 03/10/2025 Activeazithromycin 250 mg oral tablet (12 sources)Macrolide AntimicrobialStart: 02-23-2025 End: 26-22-7018eluy 2 tablets by mouth once daily, then take 1 tablet by mouth once dailyazithromycin (Zithromax) 250 MG tablet Indications: Upper respiratory tract infection, unspecified type Take 2 tablets (500 mg) by mouth Daily for 1 day, THEN 1 tablet (250 mg) Daily for 4 days. 6 tablet 02/23/2025 03/07/2025 Discontinued (Therapy completed)Start: 02-08-2025 End: 59-38-2649rpoo 2 tablets by mouth once daily, then take 1 tablet by mouth once dailyazithromycin (Zithromax) 250 MG tablet Indications: Acute bronchitis, unspecified organism Take 2 tablets (500 mg) by mouth Daily for 1 day, THEN 1 tablet (250 mg) Daily for 4 days. 6 tablet 02/08/2025 02/12/2025 Discontinued (Therapy completed)Start: 11-02-2024 End: 22-80-8361xuzh 2 tablets by mouth once daily, then take 1 tablet by mouth once dailyazithromycin (Zithromax) 250 MG tablet Indications: Acute bronchitis, unspecified organism Take 2 tablets (500 mg) by mouth Daily for 1 day, THEN 1 tablet (250 mg) Daily for 4 days. 6 tablet 11/02/2024 11/07/2024 ActiveStart: 08-31-2024 End: 03-15-0050jekw 2 tablets by mouth once daily, then take 1 tablet by mouth once dailyazithromycin (Zithromax) 250 MG tablet Indications: Upper respiratory tract infection, unspecified type Take 2 tablets (500 mg) by mouth Daily for 1 day, THEN 1 tablet (250 mg) Daily for 4 days. 6 tablet 08/31/2024 09/05/2024 ActiveStart: 05-10-2024 End: 18-96-5158letv 2 tablets by mouth once daily, then take 1 tablet by mouth once dailyazithromycin (Zithromax) 250 MG tablet Indications: Subacute cough , Acute bronchitis, unspecified organism Take 2 tablets (500 mg) by mouth Daily for 1 day, THEN 1 tablet (250 mg) Daily for 4 days. 6 tablet 05/10/2024 05/15/2024 Activebenzonatate 100 mg oral capsule (2 sources)Non-narcotic AntitussiveStart: 61-08-3341dmxi 1 capsule by mouth every eight hoursbenzonatate (TESSALON PERLES) 100 mg capsule Take 1 capsule (100 mg total) by mouth every 8 (eight)hours. 21 capsule 05/24/2025 Active carvedilol 25 mg oral tablet (20 sources)alpha-Adrenergic Antonia, beta-Adrenergic BlockerStart: 07-23-2022 End: 26-82-5192iric 1 tablet by mouth in the morningcarvedilol (Coreg) 25 MG tablet Take 25 mg by mouth in the morning and 25 mg in the evening. 07/23/2022 ActiveStart: 07-23-2022 End: 65-73-7944buso 1 tablet by mouth every twelve hourscarvediloL (COREG) 25 mg tablet TAKE ONE TABLET BY MOUTH EVERY 12 HOURS 180 tablet 0 09/07/202310/14 Discontinued (Reorder)cefdinir 300 mg oral capsule (5 sources)Cephalosporin AntibacterialStart: 06-21-2025 End: 11-63-7916avfk 1 capsule by mouth in the morningcefdinir (Omnicef) 300 MG capsule Indications: Acute bronchitis, unspecified organism Take 1 capsule (300 mg) by mouth in the morning and 1 capsule (300 mg) before bedtime. Do all this for 10 days. 20 capsule 06/21/2025 06/25/2025 Discontinued (Ineffective) celecoxib 200 mg oral capsule (20 sources)Nonsteroidal Anti-inflammatory DrugStart: 08-14-2024 End: 17-37-8482yymd 1 capsule by mouth once dailycelecoxib (CeleBREX) 200 MG capsule Indications: Costochondritis, acute Take 1 capsule (200 mg) by mouth Daily 90 capsule 3 05/15/2025 05/15/2026 ActiveStart: 07-12-2024 End: 81-70-6460odey 1 capsule by mouth once dailycelecoxib (CeleBREX) 200 MG capsule Indications: Costochondritis, acute Take 1 capsule (200 mg) by mouth Daily 30 capsule 07/12/2024 08/11/2024 Activeclopidogrel 75 mg oral tablet (20 sources)P2Y12 Platelet InhibitorStart: 09-10-2019 End: 99-45-9021gais 1 tablet by mouth once dailyclopidogrel (Plavix) 75 MG tablet Indications: Mixed hyperlipidemia Take 1 tablet (75 mg) by mouth Daily 100 tablet 3 08/30/2024 Activecolchicine 0.6 mg oral capsule (20 sources)Start: 12-04-2024 End: 32-64-2305cnvn 1 capsule by mouth onceColchicine 0.6 MG capsule Indications: Idiopathic chronic gout without tophus, unspecified site Take 0.6 mg by mouth See administration instructions Take one capsule by mouth once daily, every Wednesday, Wednesday and Wednesday. 30 capsule 2 02/12/2025 ActiveStart: 96-47-4564hqqt 1 capsule by mouth onceColchicine 0.6 MG capsule Indications: Idiopathic chronic gout without tophus, unspecified site Take 0.6 mg by mouth See administration instructions Take one capsule by mouth once daily, every Wednesday, Wednesday and Wednesday. 30 capsule 10/23/2024 ActiveStart: 39-31-8721tcht 1 capsule by mouth in the morningcolchicine (MITIGARE) 0.6 mg capsule Take 1 capsule (0.6 mg total) by mouth in the morning. 07/08/2022 ActiveComirnaty 30 MCG/0.3ML suspension prefilled syringe (3 sources)Start: 06-21-2023 End: 05-61-2373Jlimxkwxw 30 MCG/0.3ML suspension prefilled syringeStart: 23-26-1249Benjbhyvo 30 MCG/0.3ML suspension prefilled syringedicyclomine hydrochloride 20 mg oral tablet (4 sources)AnticholinergicStart: 81-79-0810lnph 1 tablet by mouth every six hoursdicyclomine (BENTYL) 20 mg tablet Take 1 tablet (20 mg total) by mouth every 6 (six) hours. 10/24/2023 Activefamotidine 20 mg oral tablet (4 sources)Histamine-2 Receptor AntagonistStart: 71-36-1842vnoz 1 tablet by mouth in the morningfamotidine (PEPCID) 20 mg tablet Take 1 tablet (20 mg total) by mouth in the morning. 11/02/2023 ActiveFluzone High-Dose Quadrivalent syringe (3 sources)Start: 07-12-2023 End: 82-02-9403Fiybmzb High-Dose Quadrivalent syringeStart: 40-88-0751Gjrupue High-Dose Quadrivalent syringegabapentin 300 mg oral capsule (20 sources)Anti-epileptic AgentStart: 07-26-2023 End: 93-58-6607nfti 1 capsule by mouth at bedtimegabapentin (Neurontin) 300 MG capsule Indications: Pain of right thigh , Lumbar herniated disc , Right lumbar radiculopathy Take 1 capsule (300 mg) by mouth at bedtime 100 capsule 3 12/28/2024 02/01/2026 ActivelevoFLOXacin 500 mg oral tablet (2 sources)Quinolone AntimicrobialStart: 07-18-2025 End: 03-55-5368istu 1 tablet by mouth once dailylevoFLOXacin (Levaquin) 500 MG tablet Indications: Acute bronchitis, unspecified organism Take 1 tablet (500 mg) by mouth Daily for 7 days 7 tablet 07/18/2025 07/25/2025 Activelinaclotide 0.072 mg oral capsule (20 sources)Guanylate Cyclase-C AgonistStart: 03-21-2024 End: 38-90-4540Ffkulyd 72 MCG capsule 03/21/2024 08/30/2024 DiscontinuedStart: 28-60-4343uzyk 1 capsule by mouth before mealtimelinaCLOtide (Linzess) 72 MCG capsule Indications: Drug induced constipation Take 1 capsule (72 mcg)by mouth in the morning. Take before meals. 30 capsule 5 03/25/2023 ActiveMagnesium (20 sources) End: 86-41-7839cjrddbfse 250 MG tablet 1 (one) time each day at the same time. 08/30/2024 Discontinuedmagnesium 250 MG tablet 1 (one) time each day at the same time. Activemagnesium 250 MG tablet 1 (one) time each day at the same time. 0 Activemeclizine hydrochloride 25 mg oral tablet (20 sources)AntiemeticStart: 05-18-2024 End: 05-30-5351jxwy 1 tablet by mouth three times daily as needed for dizziness meclizine (Antivert) 25 MG tablet Indications: Vertigo Take 1 tablet (25 mg) by mouth 3 (three) times a day as needed for dizziness 60 tablet 3 02/12/2025 02/12/2026 ActivemethylPREDNISolone 4 mg oral tablet (7 sources)CorticosteroidStart: 08-22-2024 End: 27-13-3279llonnnQXOZDIIosnha (Medrol Dospak) 4 MG tablets Indications: Parotiditis TAKE BY MOUTH INSTRUCTED - PER PACKAGE INSTRUCTIONS 21 tablet 08/22/2024 08/30/2024 Discontinued (Therapy completed)Start: 05-24-2024 End: 81-34-4569jcrlbvAVMDUTXjuklf (Medrol Dospak) 4 MG tablets Indications: Parotiditis Follow schedule on packageinstructions 21 tablet 05/24/2024 05/31/2024 ActiveStart: 05-10-2024 End: 00-11-9307xzqurxEGZVFYMcdaly (Medrol Dospak) 4 MG tablets Indications: Subacute cough , Acute bronchitis, unspecified organism Follow schedule on package instructions 21 tablet 05/10/2024 05/17/2024 Activenitroglycerin 0.4 mg sublingual tablet (20 sources)Nitrate VasodilatorStart: 11-20-2024 End: 39-82-8543deyofqrcfgkap (Nitrostat) 0.4 MG SL tablet Indications: Atherosclerosis of [place] coronary artery of [place] heart with stable angina pectoris Place 1 tablet (0.4 mg) under the tongue every 5 (five) minutes if needed for chest pain 90 tablet 12 11/20/2024 11/20/2025 ActiveStart: 10-27-2023 End: 03-66-8475rxrxpwtywxzob (Nitrostat) 0.4 MG SL tablet Indications: 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) Place 1 tablet (0.4 mg) under the tongue every 5 (five) minutes if needed for chest pain 90 tablet 12 10/27/2023 Activenystatin 297223 unt/ml oral suspension (4 sources)Polyene AntifungalStart: 08-22-2024 End: 87-03-6185ezma 5 mL by mouth four times daily at bedtimenystatin (Mycostatin) 997208 UNIT/ML suspension Indications: Thrush SWISH AND SWALLOW FIVE MILLILITERS BY MOUTH FOUR TIMES A DAY FOR 14 DAYS (MORNING, NOON, EVENING, BEFORE BEDTIME) 280 mL Discontinued (Therapy completed) Start: 06-01-2024 End: 54-99-5040pkrsojkv (Mycostatin) 269847 UNIT/ML suspension Indications: Thrush Take 5 mL (500,000 Units) by mouth in the morning and 5 mL (500,000 Units) at noon and 5 mL (500,000 Units) in the evening and 5 mL(500,000 Units) before bedtime. Do all this for 14 days. Swish and swallow. 280 mL 06/01/2024 06/15/2024 Activeondansetron 4 mg oral tablet (20 sources)Serotonin-3 Receptor Antagonisttake 1 tablet by mouth every eight hours as neededondansetron (Zofran) 4 MG tablet Take 4 mg by mouth every 8 (eight) hours if needed. Activepantoprazole 40 mg delayed release oral tablet (20 sources)Proton Pump InhibitorStart: 51-92-0753wmfo 1 tablet by mouth once dailypantoprazole (ProtoNix) 40 MG EC tablet Indications: Benign essential hypertension Take 1 tablet (40 mg) by mouth Daily 100 tablet 3 09/25/2024 Active predniSONE 20 mg oral tablet (9 sources)Start: 02-28-2025 End: 56-10-9672qhpq 1 tablet by mouth once dailypredniSONE (Deltasone) 20 MG tablet Indications: Bronchospasm Take 1 tablet (20 mg) by mouth Daily for 5 days 5 tablet 02/28/2025 03/07/2025 Discontinued (Therapy completed)Start: 02-08-2025 End: 84-80-6866neco 1 tablet by mouth once dailypredniSONE (Deltasone) 20 MG tablet Indications: Acute bronchitis, unspecified organism Take 1 tablet (20 mg) by mouth Daily for 5 days 5 tablet 02/08/2025 02/12/2025 Discontinued (Therapy completed)Start: 11-02-2024 End: 50-22-0562hkih 1 tablet by mouth once dailypredniSONE (Deltasone) 20 MG tablet Indications: Acute bronchitis, unspecified organism Take 1 tablet (20 mg) by mouth Daily for 5 days 5 tablet 11/02/2024 11/07/2024 ActiveStart: 08-31-2024 End: 24-16-3430zgzb 1 tablet by mouth once dailypredniSONE (Deltasone) 10 MG tablet Indications: Upper respiratory tract infection, unspecified type Take 1 tablet (10 mg) by mouth Daily for 5 days 5 tablet 08/31/2024 09/05/2024 Active simvastatin 40 mg oral tablet (20 sources)HMG-CoA Reductase InhibitorStart: 50-11-0103xdfv 1 tablet by mouth at bedtimesimvastatin (Zocor) 40 MG tablet Indications: Atherosclerosis of [place] coronary artery of [place] heart without angina pectoris Take 1 tablet (40 mg) by mouth at bedtime 100 tablet 3 02/06/2025 ActiveStart: 94-88-3495wknn 1 tablet by mouth at bedtimesimvastatin (Zocor) 40 MG tablet Indications: Atherosclerosis of [place] coronary artery of [place] heart without angina pectoris (CMS/HCC) Take 1 tablet (40 mg) by mouth at bedtime 100 tablet 3 02/08/2024 ActiveStart: 10-06-2023 End: 93-90-2113liiv 1 tablet by mouth at bedtimesimvastatin (Zocor) 40 MG tablet Indications: Atherosclerosis of [place] coronary artery of [place] heart without angina pectoris (CMS/HCC) Take 1 tablet (40 mg) by mouth at bedtime 100 tablet 0 10/06/2023 01/14/2024 Activesucralfate 1000 mg oral tablet (20 sources)Aluminum ComplexStart: 09-18-2022 End: 02-46-1732veepeaujwy (Carafate) 1 g tablet Indications: Gastroesophageal reflux disease with esophagitis without hemorrhage TAKE 1 TABLET BY MOUTH EVERY MORNING, ONCE IN THE EVENING AND ONCE BEFORE BEDTIME 270tablet 3 03/14/2025 ActivetiZANidine 4 mg oral tablet (15 sources)Central alpha-2 Adrenergic AgonistStart: 07-20-2024 End: 80-70-1816fjoh 1 tablet by mouth every twelve hours as needed for muscle spasmstiZANidine (Zanaflex) 4 MG tablet Indications: Chest wall pain TAKE 1 TABLET BY MOUTH EVERY 12 HOURS NEEDED FOR MUSCLE SPASMS UP TO 10 DAYS 20 tablet 07/20/2024 08/30/2024 Discontinued (Side effects)Start: 86-08-8935frkm 1 tablet by mouth every twelve hours as needed for muscle spasmstiZANidine (Zanaflex) 4 MG tablet Indications: Chest wall pain TAKE ONE TABLET BY MOUTH EVERY 12 HOURS NEEDED FOR MUSCLE SPASMS FOR UP TO 10 DAYS 20 tablet 07/19/2024 ActiveStart: 15-00-5072izat 1 tablet by mouth oncetiZANidine (Zanaflex) 4 MG tablet Indications: Chest wall pain Take 1 tablet (4 mg) by mouth every 12 (twelve) hours if needed for muscle spasms for up to 10 days 20 tablet 06/09/2024 Activezolpidem tartrate 10 mg oral tablet (20 sources)gamma-Aminobutyric Acid-ergic AgonistStart: 10-25-2024 End: 52-80-6478lkcm 1 tablet by mouth at bedtimezolpidem (Ambien) 10 MG tablet Indications: Chronic insomnia Take 1 tablet (10 mg) by mouth at bedtime 30 tablet 06/21/2025 ActiveStart: 08-18-2023 End: 10-48-0149pcjl 1 tablet by mouth at bedtimezolpidem (Ambien) 10 MG tablet Indications: Chronic insomnia Take 1 tablet (10 mg) by mouth at bedtime 30 tablet 2 04/05/2024 10/23/2024 Discontinued (Reorder) Completed/Discontinued Medications MedicationDrug Class(es)DatesSig (Normalized)Sig (Original)cefadroxil 500 mg oral capsule (6 sources)Cephalosporin Antibacterial End: 84-44-2185fzst 2 capsules by mouth in the morning, then take 2 capsules by mouth at bedtimecefaDROXil (DURICEF) 500 mg capsule Take 2 capsules (1,000 mg total) by mouth in the morning and 2 capsules (1,000 mg total) before bedtime. 0 12/09/2023 Discontinued (Therapy completed)1 ml triamcinolone acetonide 40 mg/ml prefilled syringe (4 sources)CorticosteroidStart: 02-28-2025 End: 60-90-7722yjlgqpxzecice acetonide (Kenalog-40) injection 40 mgStart: 02-28-2025 End: 22-30-0227pbaxcwgkmonjg acetonide (Kenalog-40) injection 40 mgStart: 02-28-2025 End: 13-46-6162adqbwl 40 mg by intramuscular injection once40 mg, Intramuscular, Once, On Wed02/28/25 at 1130, For 1 doseStart: 02-28-2025 End: 80-64-9910ljvsou 40 mg by intramuscular injection once40 mg, Intramuscular, Once, On Wed02/28/25 at 1130, For 1 dose Problems Active Problems Problem ClassificationProblemDateDocumented DateEpisodic/ChronicAcute bronchitis (8 sources)Acute bronchitis; Translations: [Acute bronchitis, unspecified] 02-11-0919WzmtrqgkCjcuj cerebrovascular disease (20 sources)Cerebrovascular accident; Translations: [Cerebral infarction, unspecified]Onset: [id number] cerebrovascular disease (1 source)Acute cerebrovascular diseaseOnset: 60-41-3512Colfkqqfskbqty/social admission (2 sources)Patient encounter status; Translations: [Other specified counseling] 69-19-5493OeyvuarnZybmull disorders (20 sources)Anxiety; Translations: [Anxiety disorder, unspecified]Onset: [id number] kidney disease (20 sources)Chronic kidney disease stage 3B ; Translations: [Stage 3b chronic kidney disease (HCC)]Onset: [id number] associated with dizziness or vertigo (20 sources)Vertigo; Translations: [Dizziness and giddiness]Onset: 10-06-2024 29-22-3868AqqezzwxIstyrgnq atherosclerosis and other heart disease (20 sources)Coronary occlusion; Translations: [Atherosclerotic heart disease of [place] coronary artery without angina pectoris]Onset: 09-22-2013 Resolved: [id number] of mouth; excluding dental (3 sources)Parotitis; Translations: [Sialoadenitis, unspecified]07-19-2024 EpisodicDisorders of lipid metabolism (20 sources)Hyperlipidemia; Translations: [Hyperlipidemia, unspecified]Onset: 09-22-2013 Resolved: 267273-31-5450BqpznxtXljucpiepujgkx and diverticulitis (20 sources)Diverticulosis of colon; Translations: [Diverticulosis of large intestine without perforation or abscess without bleeding]Onset: 10-10-2008 Resolved: 761316-40-2925HfhnafaGqtwvvyc; convulsions (2 sources)Epilepsy; Translations: [Epilepsy, unspecified, not intractable, without status epilepticus]41-73-6562SkhchitJhyjzosgql disorders (20 sources)Gastro-esophageal reflux disease with esophagitis; Translations: [Gastroesophageal reflux disease with esophagitis without hemorrhage]Onset: 01-23-2017 Resolved: [id number] hypertension (20 sources)Benign essential hypertension; Translations: [Essential (primary) hypertension]Onset: 06-12-2010 Resolved: 271677-54-0747CgbsyzcNuzkhjwi of neck of femur (hip) (4 sources)Closed fracture proximal femur, subtrochanteric; Translations: [Displaced subtrochanteric fracture of right femur, sequela]11-72-1364Jlfmqgyj Fracture of neck of femur (hip) (10 sources)Closed subtrochanteric fracture of left femur; Translations: [Displaced subtrochanteric fracture ofleft femur, sequela]Onset: 06-25-2025 13-67-1933DjfkpzokEitg and other crystal arthropathies (20 sources)Chronic gouty arthritis; Translations: [Idiopathic chronic gout, unspecified site, without tophus (tophi)]Onset: hronic Headache; including migraine (2 sources)Episodic tension-type headache; Translations: [Episodic tension-type headache, not intractable]97-08-0863FedudwnXdrggjsxfgh of prostate (20 sources)Benign prostatic hyperplasia; Translations: [Benign prostatic hyperplasia without lower urinary tract symptoms]Onset: ChronicMiscellaneous mental health disorders (20 sources)Chronic insomnia; Translations: [Psychophysiologic insomnia]Onset: 843975-53-6324HbxpreeRxlzotb (2 sources)Candidiasis of mouth; Translations: [Candidal stomatitis]07-19-2024 EpisodicNonspecific chest pain (20 sources)Chest pain; Translations: [Chest pain, unspecified]Onset: 01-23-2017 Resolved: 848255-09-7474JedijwlgUwdmrxkuihfvuh (20 sources)Arthritis of right hip; Translations: [Unilateral primary osteoarthritis, right hip]Onset: 821361-09-5640FontyfhAlovy bone disease and musculoskeletal deformities (2 sources)Costal chondritis; 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 [Tietze]]91-68-1167SxhqjonbAnrxe circulatory disease (2 sources)History of transient ischemic attack; Translations: [Personal history of transient ischemic attack (TIA), and cerebral infarction without residual deficits]61-05-6320AmrivsvoXhouf connective tissue disease (2 sources)Pain in right lower limb; Translations: [Pain in right leg]07-11-2025 EpisodicOther gastrointestinal disorders (20 sources)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; Translations: [Irritable bowel syndrome with constipation]Onset: 10-27-2023 36-60-9869YklgkpbHaqfc gastrointestinal disorders (2 sources)Dysphagia; Translations: [Dysphagia, pharyngoesophageal phase] 58-18-7662GoljfmwdXakes lower respiratory disease (1 source)Chronic cough; Translations: [Chronic cough]Onset: 85-64-1458Pirrfluy Other nervous system disorders (20 sources)Chronic pain; Translations: [Other chronic pain]Onset: 01-19-2023 29-20-9052InxbgoyGvrig nervous system disorders (20 sources)Chronic postoperative pain; Translations: [Other chronic postprocedural pain]Onset: 182030-86-1335ZdckhbdHfwey nervous system disorders (6 sources)Dysarthria; Translations: [Dysarthria and anarthria]08-30-2024 EpisodicOther non-traumatic joint disorders (2 sources)Hip pain; Translations: [Pain in right hip]31-72-2042CnrmqajaHisjc nutritional; endocrine; and metabolic disorders (20 sources)Hypocalcemia; Translations: [Hypocalcemia]Onset: 01-19-2023 08-56-9075VeirfdlFravo nutritional; endocrine; and metabolic disorders (20 sources)Body mass index 30+ - obesity; Translations: [Obesity, unspecified] Onset: 289311-98-2158LirwqvxCqsdm upper respiratory disease (4 sources)Bronchospasm; Translations: [Acute bronchospasm]26-57-7148Lhsrtcmh Other upper respiratory infections (5 sources)Upper respiratory infection; Translations: [Acute upper respiratory infection, unspecified]18-98-1554FyxsazfvUjgmdorgfp and visceral atherosclerosis (13 sources)Arteriosclerotic vascular disease; Translations: [Unspecified atherosclerosis]Onset: 068505-25-2429PqkxfchDlnphsib codes; unclassified (1 source)Pain, unspecified; Translations: [Pain, unspecified]Onset: 05-28-2025 EpisodicSpondylosis; intervertebral disc disorders; other back problems (20 sources)Cervical spondylosis without myelopathy; Translations: [Spondylosis without myelopathy or radiculopathy, cervical region]Onset: ChronicSyncope (4 sources)Syncope; Translations: [Syncope and collapse]79-53-7623Ttdxbrme Unclassified (1 source)EMSOnset: 77-12-6348Xiihbgqgylut (1 source)Weakness - GeneralizedOnset: 05-24-2025 Past or Other Problems Problem ClassificationProblemDateDocumented DateEpisodic/ChronicAbdominal hernia (20 sources)Hiatal hernia; Translations: [Diaphragmatic hernia without obstruction or gangrene]Onset: 439500-13-0104CqkxqztfZthoo and unspecified renal failure (20 sources)Xwfhy-wx-rjuldop renal failure; Translations: [Acute kidney failure, unspecified]Onset: 09-20-2020 Resolved: 837324-26-1868NsrhkkcsCidvq myocardial infarction (20 sources)Myocardial infarction; Translations: [Acute myocardial infarction, unspecified]Onset: 09-13-2016 Resolved: 707897-61-3181HwyhzdyBfkkvntx atherosclerosis and other heart disease (20 sources)Stented coronary artery; Translations: [Presence of coronary angioplasty implant and graft]Onset: 09-22-2013 Resolved: 770389-32-0072GhxwfzdfSwrntiook and duodenitis (20 sources)Gastritis; Translations: [Gastritis, unspecified, without bleeding] Onset: 172634-34-1448XyiuwcnrBlmyfnguucwvkr ulcer (except hemorrhage) (20 sources)H/O: gastric ulcer; Translations: [Personal history of peptic ulcer disease]Onset: 807985-31-6238JcznnyxvUpkezauafkake symptoms and ill- defined conditions (13 sources)Disorder of the urinary system; Translations: [Disorder of urinary system, unspecified]Onset: 411331-74-0730WberygzvLaedebtkvhos conditions of male genital organs (20 sources)Balanitis; Translations: [Balanitis]Onset: 06-06-2021 Resolved: 944654-85-5537IwsssrdAizzxbg and fatigue (4 sources)Asthenia; Translations: [Weakness]Onset: 391018-11-6115Pbhseuns Other and unspecified benign neoplasm (20 sources)History of polyp of colon; Translations: [Personal history of colonic polyps]Onset: 064806-36-6465JnogfxsfRpggz and unspecified benign neoplasm (13 sources)Polyp of colon; Translations: [Polyp of colon]Onset: 09-18-2022 59-63-2591WebthaorMbmup connective tissue disease (20 sources)Pain of right thigh; Translations: [Pain in right thigh]Onset: 377824-22-8088FzpghsvhBqzxx gastrointestinal disorders (20 sources)History of disorder of digestive system; Translations: [Personal history of other diseases of the digestive system]Onset: EpisodicOther gastrointestinal disorders (20 sources)Constipation; Translations: [Constipation, unspecified]Onset: 09-28-2017 Resolved: 461067-13-4537JnrnadkaSfvca injuries and conditions due to external causes (20 sources)Injury of penis; Translations: [Unspecified injury of external genitals, initial encounter]Onset: 06-06-2021 Resolved: 263289-28-2091GbhhcgkzUqwus injuries and conditions due to external causes (20 sources)Traumatic rhabdomyolysis; Translations: [Traumatic ischemia of muscle, initial encounter]Onset: 09-20-2020 Resolved: 454838-37-7183OrgjxmhyWxzgf lower respiratory disease (2 sources)Cough; Translations: [Subacute cough]03-85-7083KellwezaAezyf male genital disorders (13 sources)Phimosis; Translations: [Phimosis]Onset: EpisodicOther nervous system disorders (1 source)Abnormal gaitOnset: 32-39-0404MdeogxqhEgpcg nervous system disorders (1 source)Dysarthria and anarthria; Translations: [Dysarthria and anarthria] Onset: 14-97-2554OykmqkreExqew screening for suspected conditions (not mental disorders or infectious disease) (20 sources)Increased blood lead level; Translations: [Abnormal lead level in blood]Onset: 213461-79-3007RumcjzvwVgcmtklm codes; unclassified (20 sources)Confusional state; Translations: [Disorientation, unspecified]Onset: 09-16-2020 Resolved: 315804-35-8236OpxkkrfwWzcrksdwnof; intervertebral disc disorders; other back problems (20 sources)Spinal stenosis in cervical region; Translations: [Spinal stenosis, cervical region]Onset: 12-20-2018 Resolved: 665525-32-0820EisbrtyfMubpz infection (20 sources)Disease caused by 2019-nCoV; Translations: [COVID-19]Onset: 09-20-2020 Resolved: 120152-42-6614Numaqxuq Results Test NameValueInterpretationReference RangeFacilityBASIC METABOLIC PANELon 72-84-4373Izbcd gap [Moles/Vol]9 mmol/LNormal5-15ProOhiohealth Hardin Memorial Hospitalca [facility] Comment on above:Performed By: #### YELENA, 23361-3, 10553-2, PINR, CBCA #### [facility] ([id number]) [address] [place] [address] 16514 #### HA1C #### [facility] ([id number]) [address] [facility], [address] [place], [place] [address]Wzbmiqp [Mass/Vol]8.5 mg/dLNormal8.5-10.5Pro[facility]aritan HospitalComment on above:Performed By: #### YELENA, 99951-9, 35165-9, PINR, CBCA #### [facility] ([id number]) [address] [place] [address] 31257 #### HA1C #### [facility] ([id number]) [address], [address] [place], [place] [address]Quirfgqt [Moles/Vol]105 mmol/XOnsedh85-133AgnPlrwuxMedina HospitalComment on above:Performed By: #### YELENA, 13976-5, 13785-4, PINR, CBCA #### [facility] ([id number]) [address] [place] [address] 48414 #### HA1C #### [facility] ([id number]) [address] [facility] [facility], [address] [place], [place] [address]IT3 [Moles/Vol]23 mmol/CUqmkdc37-36XqaReuhzaAvita Health System [facility] Comment on above:Performed By: #### YELENA, 45007-7, 57375-8, PINR, CBCA #### [facility] ([id number]) [address] [place] [address] 65218 #### HA1C #### [facility] ([id number]) [address] [facility] [facility], [address] [place], [place] [address]Modifvjtia [Mass/Vol]1.43 mg/dLHigh0.70-1.20Medina HospitalComment on above:Result Comment: METHOD TRACEABLE TO IDMS STANDARD Performed By: #### YELENA, 48928-3, 44272-9, PINR, CBCA #### [facility] ([id number]) [address] [place] [address] 66006 #### HA1C #### [facility] ([id number]) [address] [facility], [address] [place], [place] [address]GLN/1.73 sq M.predicted among non-blacks MDRD (S/P/Bld) [Vol rate/Area]50 mL/min/{1.73_m2}Low>=60ProHuntsville Memorial HospitalComment on above: Result Comment: eGFR not reported due to non-numeric value for Creatinine. Reported eGFR is based on the CKD-EPI 2021 equation that does not use a race coefficient.Performed By: #### YELENA, 22575-6, 20214-0, RADHA HAWKINS #### [facility] ([id number]) [address] [place] [address] 76645 #### HA1C #### [facility] ([id number]) [address], [address] [place], [place] [address]Pvcumbf [Mass/Vol]91 mg/xKPsxbmg04-58XwdMpxxnsMedina Hospital Comment on above:Performed By: #### YELENA, 78514-7, 49417-0, RADHA HAWKINS #### [facility] ([id number]) [address] [place] [address] 52342 #### HA1C #### [facility] ([id number]) [address] [facility] [facility], [address] [place], [place] [address]Jenvejbyn [Moles/Vol]4.5 mmol/LNormal3.5-5.0ProHuntsville Memorial HospitalComment on above:Performed By: #### YELENA, 15761-3, 38521-2, RADHA HAWKINS #### [facility] ([id number]) [address] [place] [address] 18032 #### HA1C #### [facility] ([id number]) [address], [address] [place], [place] [address]Mhmeex [Moles/Vol]137 mmol/QGnqzqr088-017BvyEpqann [facility]remont HospitalComment on above:Performed By: #### YELENA, 81495-7, 81112-3, PINLaura CBCA #### [facility] ([id number]) [address] [place] [address] 30059 #### HA1C #### [facility] ([id number]) [address] [facility] [facility], [address] [place], [place] [address]Xtjo nitrogen [Mass/Vol]15 mg/dLNormal5-27Pro[facility] Samaritan HospitalComment on above:Performed By: #### YELENA, 52908-4, 87818-6, PINR, CBCA #### [facility] ([id number]) [address] [place] [address] 67412 #### HA1C #### [facility] ([id number]) [address] [facility] [facility], [address] [place], [place] [address]JJL WITH AUTO DIFFERENTIALon 35-97-6934DIKENPVYG ABSOLUTE COUNT BY AUTOMATED COUNT0.0 X10^9/LNormal0.0-0.2ProMedica [facility] Samaritan HospitalComment on above:Performed By: #### YELENA, 51893-7, 53005-6, PINR, CBCA #### [facility] ([id number]) [address] [place] [address] 19670 #### HA1C #### [facility] ([id number]) [address] [facility], [address] [place], [place] [address]WPQNAVJDQ RELATIVE PERCENT BY AUTOMATED COUNT0.6 %Normal Med[facility] HospitalComment on above:Performed By: #### YELENA, 09912-3, 77567-9, PINR, CBCA #### [facility] ([id number]) [address] [place] [address] 80894 #### HA1C #### [facility] ([id number]) [address] [facility] [facility], [address] [place], [place] [address]AJGHGHVUXMX DIFFERENTIAL TYPEAUTOMATED DIFFERENTIALNormal [facility]ina HospitalComment on above:Performed By: #### YELENA, 38981-8, 58982-4, PINR, CBCA #### [facility] ([id number]) [address] [place] [address] 95544 #### HA1C #### [facility] ([id number]) [address], [address] [place], [place] [address]Wmnqgdnmzmg (Bld) [#/Vol]0.2 10*3/uLNormal0.0-0.4Medina HospitalComment on above:Performed By: #### YELENA, 57310-9, 80715-9, PINR, CBCA #### [facility] ([id number]) [address] [place] [address] 69136 #### HA1C #### [facility] ([id number]) [address] [facility], [address] [place], [place] [address]PBUGUEOUSGJ RELATIVE PERCENT BY AUTOMATED COUNT3.3 %Normal ProMDoctors Hospital of MantecaComment on above:Performed By: #### YELENA, 15098-0, 20469-0, PINR, CBCA #### [facility] ([id number]) [address] [place] [address] 63237 #### HA1C #### [facility] ([id number]) [address] [facility], [address] [place], [place] [address]Kesyxvpwkpm distribution width (RBC) [Ratio]14.5 %Gbgvoo69.5-15 [facility] HospitalComment on above:Performed By: #### YELENA, 96330-2, 55599-6, PINR, CBCA #### [facility] ([id number]) [address] [place] [address] 82434 #### HA1C #### [facility] ([id number]) [address] [facility], [address] [place], [place] [address]Xmwdadnfnm (Bld) [Volume fraction]39.8 %Fievqv82-96WjsHbytqeMedina HospitalComment on above:Performed By: #### YELENA, 43872-6, 10575-5, PINR, CBCA #### [facility] ([id number]) [address] [place] [address] 31052 #### HA1C #### [facility] ([id number]) [address], [address] [place], [place] [address]Cxycucwuqr (Bld) [Mass/Vol]13.3 g/dUZrzrwm97-12VlhKtyqyfHuntsville Memorial HospitalComment on above:Performed By: #### YELENA, 65442-4, 26317-1, PINR, CBCA #### [facility] ([id number]) [address] [place] [address] 20194 #### HA1C #### [facility] ([id number]) [address] [facility], [address] [place] [address]Vtainvqihbt (Bld) [#/Vol]1.4 10*3/uLNormal1.0-3.5ProMedica [facility] Samaritan HospitalComment on above:Performed By: #### YELENA, 09710-7, 82676-1, PINR, CBCA #### [facility] ([id number]) [address] [place] [address] 82958 #### HA1C #### [facility] ([id number]) [address], [address] [place], [place] [address]RYHMOPBIGKH RELATIVE PERCENT BY AUTOMATED COUNT20.4 %Normal [facility] Samaritan HospitalComment on above:Performed By: #### YELENA, 94861-9, 69289-2, PINR, CBCA #### [facility] ([id number]) [address] [place] [address] 30585 #### HA1C #### [facility] ([id number]) [address] [facility], [address] [place], [place] [address]BZZ (RBC) [Entitic mass]29.3 lnQbjrcd46-37TfoYzjucyHuntsville Memorial HospitalComment on above:Performed By: #### YELENA, 41760-9, 57529-7, PINR, CBCA #### [facility] ([id number]) [address] [place] [address] 85290 #### HA1C #### [facility] ([id number]) [address], [address] [place], [place] [address]JFZD (RBC) [Mass/Vol]33.4 g/mHZdkqjc72-35GykXlmramHuntsville Memorial HospitalComment on above:Performed By: #### YELENA, 74053-8, 08299-2, PINR, CBCA #### [facility] ([id number]) [address] [place] [address] 22915 #### HA1C #### [facility] ([id number]) [address] [facility], [address] [place], [place] [address]DEE (RBC) [Entitic vol]88 tSZuhdvj01-286NfhSxcxbl [facility] HospitalComment on above:Performed By: #### YELENA, 62348-5, 78383-6, PINR, CBCA #### [facility] ([id number]) [address] [place] [address] 09969 #### HA1C #### [facility] ([id number]) [address], [address] [place], [place] [address]Sfnqxyibf (Bld) [#/Vol]0.4 10*3/uLNormal0.0-0.9ProHuntsville Memorial HospitalComment on above:Performed By: #### YELENA, 68245-9, 85512-3, PINR, CBCA #### [facility] ([id number]) [address] [place] [address] 66574 #### HA1C #### [facility] ([id number]) [address], [address] [place], [place] [address]ULWXNNUBB RELATIVE PERCENT BY AUTOMATED COUNT5.4 %Normal [facility]aritan HospitalComment on above:Performed By: #### YELENA, 79590-9, 99697-3, PINR, CBCA #### [facility] ([id number]) [address] [place] [address] 77197 #### HA1C #### [facility] ([id number]) [address], [address] [place], [place] [address]FLKQCXYYPVO ABSOLUTE COUNT BY AUTOMATED COUNT4.8 X10^9/LNormal 1.5-6.6ProOhiohealth Hardin Memorial Hospitalca Good Samaritan HospitalComment on above:Performed By: #### YELENA, 39142- 7, 96329-4, PINR, CBCA #### [facility] ([id number]) [address] [place] [address] 09497 #### HA1C #### [facility] ([id number]) [address] [facility], [address] [place], [place] [address]COPGSLRRHAY RELATIVE PERCENT BY AUTOMATED COUNT70.3 %Normal [facility] HospitalComment on above:Performed By: #### YELENA, 43424-4, 26389-3, PINR, CBCA #### [facility] ([id number]) [address] [place] [address] 99176 #### HA1C #### [facility] ([id number]) [address], [address] [place], [place] [address]Tdowqqbj mean volume (Bld) [Entitic vol]7.3 fLNormal7-12 [facility] HospitalComment on above:Performed By: #### YELENA, 58230-8, 18297-9, PINR, CBCA #### [facility] ([id number]) [address] [place] [address] 08977 #### HA1C #### [facility] ([id number]) [address], [address] [place], [place] [address]Txehyrhnt (Bld) [#/Vol]185 10*3/xHIopxek593-896MojYdidjb [facility]ont HospitalComment on above:Performed By: #### YELENA, 00051-4, 11161-2, PINLaura, PARVEZA #### [facility] ([id number]) [address] [place] [address] 09656 #### HA1C #### [facility] ([id number]) [address] [facility], [address] [place], [place] [address]AXY COUNT4.54 X10^12/LNormal4.1-5.7[facility] Comment on above:Performed By: #### YELENA, 58802-4, 21724-2, PINPARVEZ SanchezA #### [facility] ([id number]) [address] [place] [address] 43952 #### HA1C #### [facility] ([id number]) [address] [facility], [address] [place] [address]OAA (Bld) [#/Vol]6.8 10*3/uLNormal4-11[facility] Comment on above:Performed By: #### YELENA, 55336-1, 61363-2, SHRUTHI, CBCA #### [facility] ([id number]) [address] [place] [address] 33397 #### HA1C #### [facility] ([id number]) [address] [facility], [address] [place], [place] [address]ZH BRAIN WO CONTon 94-52-2515SM BRAIN WO CONTCT BRAIN WO CONT EXAM: CT BRAIN WO CONT CLINICAL INFORMATION: [...] of chronic ischemic small vessel disease. The sprague-white matter differentiation is preserved. There is no [...] by Kane Argueta MD on 07/18/2025 4:[address] [facility] [address] CERVICAL SPINE WO CONTon 20-91-7163IK CERVICAL SPINE WO CONTCT CERVICAL SPINE WO CONT EXAM: CERVICAL SPINE CT WITHOUT CONTRAST CLINICAL [...] facet osteoarthropathy. There is no evidence for postt raumatic paravertebral soft tissue abnormalities. The limited visualized [...] by Kane Argueta MD on 07/18/2025 4:02 PMNormalProHuntsville Memorial Hospital MAGNESIUMon 57-37-2355Xiwpadhpu [Mass/Vol]1.7 mg/dLLow1.8-2.6ProHuntsville Memorial HospitalComment on above:Performed By: #### YELENA, 13413-7, 20939-2, PINR, CBCA #### [facility] ([id number]) [address] [place] [address] 31837 #### HA1C #### [facility] ([id number]) [address], [address] [place], [place] [address]BULN I, HIGH SENSITIVITY 1 HOURon 72-54-6366XLOHVJPQ I, HIGH SENSITIVITY5 ng/LNormal<21ProHuntsville Memorial HospitalComment on above:Performed By: #### YELENA, 82556-4, 98744-4, PINR, CBCA #### [facility] ([id number]) [address] [place] [address] 83783 #### HA1C #### [facility] ([id number]) [address] [facility], [address] [place], [place] [address]DISEOEHS I, HIGH SENSITIVITY 0 HOURon 59-18-5073KJEFBCLD I, HIGH SENSITIVITY4 ng/LNormal<21ProHuntsville Memorial HospitalComment on above:Performed By: #### YELENA, 18706-4, 47114-8, PINR, CBCA #### [facility] ([id number]) [address] [place] [address] 80477 #### HA1C #### [facility] ([id number]) [address], [address] [place], [place] [address]FC Hip - right 3 Viewson 77-74-7699Cgyiscw Result: AP and lateral right hip: No acute fracture or dislocation Post surgical changes with plate to lateral femur and greater trochanter, no evidence of [...] surgical changes to proximal femur. No hardware complication.Critical access hospitalXR Hip - right 3 Viewson 00-12-4273Llixhdbck Study observation (narrative)[facility] 72-44-7612iBKA Coag (Bld) [Time]29 xIgofdc81-18LdwOuhoftMedina Hospital Comment on above:Performed By: #### YELENA, 23251-3, 64168-2, PINR, CBCA #### [facility] ([id number]) [address] [place] [address] 74667 #### HA1C #### [facility] ([id number]) [address], [address] [place], [place] [id number] METABOLIC PANELon 82-14-1629Kxhed gap [Moles/Vol]9 mmol/L Normal5-15Medina HospitalComment on above:Performed By: #### YELENA, 99905-2, 68225-4, PINR, CBCA #### [facility] ([id number]) [address] [place] [address] #### HA1C #### [facility] ([id number]) [address], [address] [place], [place] [address]Jziphfw [Mass/Vol]8.5 mg/dLNormal8.5-10.5[facility] HospitalComment on above:Performed By: #### YELENA, 55532-0, 15408-4, PINR, CBCA #### [facility] ([id number]) [address] [place] [address] #### HA1C #### [facility] ([id number]) [address], [address] [place], [place] [address]Bywoowxn [Moles/Vol]107 mmol/MIonafs32-843ZptEofzwhMedina HospitalComment on above:Performed By: #### YELENA, 13597-7, 86672-3, RADHA HAWKINS #### [facility] ([id number]) [address] [place] [address] #### HA1C #### [facility] ([id number]) [address], [address] [place], [place] [address]EC5 [Moles/Vol]26 mmol/NVzwapp56-64LdrVbampvAvita Health [facility] Comment on above:Performed By: #### YELENA, 42434-0, 13672-4, RADHA HAWKINS #### [facility] ([id number]) [address] [place] [address] #### HA1C #### [facility] ([id number]) [address], [address] [place], [place] [address]Rblpgosbha [Mass/Vol]1.52 mg/dLHigh0.70-1.20ProHuntsville Memorial HospitalComment on above:Result Comment: METHOD TRACEABLE TO IDMS STANDARD Performed By: #### YELENA, 87486-2, 83401-2, RADHA HAWKINS #### [facility] ([id number]) [address] [place] [address] #### HA1C #### [facility] ([id number]) [address], [address] [place], [place] [address]QWW/1.73 sq M.predicted among non-blacks MDRD (S/P/Bld) [Vol rate/Area]47 mL/min/{1.73_m2}Low>=60ProHuntsville Memorial HospitalComment on above: Result Comment: eGFR not reported due to non-numeric value for Creatinine. Reported eGFR is based on the CKD-EPI 2020 equation that does not use a race coefficient.Performed By: #### YELENA, 72771-5, 60130-1, PINR, CBCA #### [facility] ([id number]) [address] [place] [address] 86574 #### HA1C #### [facility] ([id number]) [address], [address] [place], [place] [address]Povscsw [Mass/Vol]121 mg/eDYwjb88-19NajYiclerHuntsville Memorial Hospital Comment on above:Performed By: #### YELENA, 73762-5, 64064-9, PINR, CBCA #### [facility] ([id number]) [address] [place] [address] 92470 #### HA1C #### [facility] ([id number]) [address] [facility] [place], [place] [address]Nhjgjiqto [Moles/Vol]3.8 mmol/LNormal3.5-5.0ProHuntsville Memorial HospitalComment on above:Performed By: #### YELENA, 23921-3, 96739-3, PINR, CBCA #### [facility] ([id number]) [address] [place] [address] 11524 #### HALory #### [facility] ([id number]) [address], [address] [place], [place] [address]Kemekp [Moles/Vol]142 mmol/VVxkapz773-402RtwXsypoc [facility]ont HospitalComment on above:Performed By: #### YELENA, 02556-3, 45240-2, PINR, CBCA #### [facility] ([id number]) [address] [place] [address] 39934 #### HA1C #### [facility] ([id number]) [address], [address] [place], [place] [address]Wgef nitrogen [Mass/Vol]21 mg/dLNormal5-27ProHuntsville Memorial HospitalComment on above:Performed By: #### YELENA, 01100-8, 83646-4, PINR, CBCA #### [facility] ([id number]) [address] [place] [address] 32975 #### HA1C #### [facility] ([id number]) [address], [address] [place], [place] [address]KDV WITH AUTO DIFFERENTIALon 12-97-9917UCTFDXMWV ABSOLUTE COUNT (10*3/UL) BY AUTOMATED COUNT0.0 10*3/uLNormal0.0-0.2PHuey P. Long Medical Centerica [facility] Comment on above:Performed By: #### YELENA, 31380-6, 40010-6, PINR, CBCA #### [facility] ([id number]) [address] [place] [address] 93078 #### HA1C #### [facility] ([id number]) [address], [address] [place], [place] [address]QBEHBBQCO RELATIVE PERCENT BY AUTOMATED COUNT0.5 %Normal [facility] HospitalComment on above:Performed By: #### YELENA, 93213-6, 82416-2, PINR, CBCA #### [facility] ([id number]) [address] [place] [address] 21827 #### HA1C #### [facility] ([id number]) [address], [address] [place], [place] [address]PNHZBTFOCJM DIFFERENTIAL TYPEAUTOMATED DIFFERENTIALNormal [facility] HospitalComment on above:Performed By: #### YELENA, 37970-8, 91081-2, PINR, CBCA #### [facility] ([id number]) [address] [place] [address] 21406 #### HA1C #### [facility] ([id number]) [address], [address] [place], [place] [address]Wwvvmsqkqnm (Bld) [#/Vol]0.2 10*3/uLNormal0.0-0.4Med[facility] HospitalComment on above:Performed By: #### YELENA, 88914-9, 21060-9, PINR, CBCA #### [facility] ([id number]) [address] [place] [address] 57075 #### HA1C #### [facility] ([id number]) [address] [place] [address], [address] [place] [address]IOOSSBJTSXW RELATIVE PERCENT BY AUTOMATED COUNT3.7 %Normal ProMDoctors Hospital of MantecaComment on above:Performed By: #### YELENA, 38469-7, 51840-6, PINR, CBCA #### [facility] ([id number]) [address] [place] [address] 52151 #### HA1C #### [facility] ([id number]) [address] [place] [address], [address] [place], [place] [address]Spyrznoavhk distribution width (RBC) [Ratio]15.2 %High11.5-15 [facility] HospitalComment on above:Performed By: #### YELENA, 63307-6, 49819-5, PINR, CBCA #### [facility] ([id number]) [address] [place] [address] 25055 #### HA1C #### [facility] ([id number]) [address] [place] [address], [address] [place], [place] [address]Mdyvojmybb (Bld) [Volume fraction]40.1 %Ldzlsj82-82YpsJxlmjpHuntsville Memorial HospitalComment on above:Performed By: #### YELENA, 48577-9, 85625-6, PINR, CBCA #### [facility] ([id number]) [address] [place] [address] 90865 #### HA1C #### [facility] ([id number]) [address] [place] [address], [address] [place], [place] [address]Qewtoktakm (Bld) [Mass/Vol]13.4 g/pUXwkyjw21-69HlaDmdalpMedina HospitalComment on above:Performed By: #### YELENA, 72739-2, 69467-3, PINR, CBCA #### [facility] ([id number]) [address] [place] [address] 66473 #### HA1C #### [facility] ([id number]) [address], [address] [place], [place] [address]UXLBQRVFNRH ABSOLUTE COUNT (10*3/UL) BY AUTOMATED COUNT2.0 10*3/uLNormal1.0-3.5ProMedica Good Samaritan HospitalComment on above:Performed By: #### YELENA, 16103-5, 17376-7, PINR, CBCA #### [facility] ([id number]) [address] [place] [address] 77040 #### HA1C #### [facility] ([id number]) [address], [address] [place], [place] [address]NDOUYMEERUX RELATIVE PERCENT BY AUTOMATED COUNT32.6 %Normal ProMcentral [facility] Samaritan HospitalComment on above:Performed By: #### YELENA, 18090-6, 60608-8, PINR, CBCA #### [facility] ([id number]) [address] [place] [address] 52921 #### HA1C #### [facility] ([id number]) [address], [address] [place], [place] [address]BDZ (RBC) [Entitic mass]29.0 ouWditam26-15JkoUqilveHuntsville Memorial HospitalComment on above:Performed By: #### YELENA, 49642-6, 28498-4, PINR, CBCA #### [facility] ([id number]) [address] [place] [address] 40527 #### HA1C #### [facility] ([id number]) [address], [address] [place], [place] [address]UMYV (RBC) [Mass/Vol]33.4 g/oACmmeuz10-45TugDbkzuqHuntsville Memorial HospitalComment on above:Performed By: #### YELENA, 88882-9, 55345-2, PINR, CBCA #### [facility] ([id number]) [address] [place] [address] 19442 #### HA1C #### [facility] ([id number]) [address] [facility], [address] [place], [place] [address]MMN (RBC) [Entitic vol]87 oHEmxztv83-008IzpDaotdc [facility] HospitalComment on above:Performed By: #### YELENA, 12906-8, 23155-7, PINR, CBCA #### [facility] ([id number]) [address] [place] [address] 61698 #### HA1C #### [facility] ([id number]) [address] [facility], [address] [place], [place] [address]OMMVYBHHQ ABSOLUTE COUNT (10*3/UL) BY AUTOMATED COUNT0.5 10*3/uL Normal0.0-0.9ProHuntsville Memorial HospitalComment on above:Performed By: #### YELENA, 43563-8, 48210-2, PINR, CBCA #### [facility] ([id number]) [address] [place] [address] 37858 #### HA1C #### [facility] ([id number]) [address], [address] [place], [place] [address]MHHAVXLUX RELATIVE PERCENT BY AUTOMATED COUNT8.2 %Normal ProMDoctors Hospital of MantecaComment on above:Performed By: #### YELENA, 67307-2, 53371-8, PINR, CBCA #### [facility] ([id number]) [address] [place] [address] 98334 #### HA1C #### [facility] ([id number]) [address], [address] [place], [place] [address]OWYRYJSKYJD ABSOLUTE COUNT BY AUTOMATED COUNT3.4 10*3/uLNormal 1.5-6.6[facility]ina HospitalComment on above:Performed By: #### YELENA, 61795- 7, 26733-8, PINR, CBCA #### [facility] ([id number]) [address] [place] [address] 60368 #### HA1C #### [facility] ([id number]) [address] [facility], [address] [place], [place] [address]MVVZRWHPERD RELATIVE PERCENT BY AUTOMATED COUNT55.0 %Normal ProMDoctors Hospital of MantecaComment on above:Performed By: #### YELENA, 54350-7, 70107-2, PINR, CBCA #### [facility] ([id number]) [address] [place] [address] 26729 #### HALory #### [facility] ([id number]) [address], [address] [place], [place] [address]Qgckvsbw mean volume (Bld) [Entitic vol]7.1 fLNormal7-12 [facility] HospitalComment on above:Performed By: #### YELENA, 01561-3, 95237-4, PINR, CBCA #### [facility] ([id number]) [address] [place] [address] 57587 #### HA1C #### [facility] ([id number]) [address], [address] [place], [place] [address]Qxdqjorsa (Bld) [#/Vol]172 10*3/dXCgfnpb656-236OxaEogwoe [facility] HospitalComment on above:Performed By: #### YELENA, 97157-3, 08542-8, PINR, CBCA #### [facility] ([id number]) [address] [place] [address] 30200 #### HA1C #### [facility] ([id number]) [address], [address] [place], [place] [address]PPG COUNT4.63 X10E12/LNormal4.1-5.7[facility] Comment on above:Performed By: #### YELENA, 82370-2, 59082-3, PINR, CBCA #### [facility] ([id number]) [address] [place] [address] 93881 #### HA1C #### [facility] ([id number]) [address] [facility], [address] [place], [place] [address]NWQ (Bld) [#/Vol]6.2 10*3/uLNormal4-11[facility] Comment on above:Performed By: #### YELENA, 56169-5, 54647-9, PINR, CBCA #### [facility] ([id number]) [address] [place] [address] 12218 #### HA1C #### [facility] ([id number]) [address] [facility], [address] [place], [place] [address]N-ESKTYhd 05-24-2025D CUQAB634 ng/mLNormal1-255Med[facility] HospitalComment on above:Result Comment: Results <255 ng/mL DDU: The presensence of a VTE can safely be excluded with a negative D-Dimer result and Wells score. A negative result doesn't exclude the possibility of DIC. The test should be repeated along with other diagnostic tests if the patient's symptoms persist or worsen.Performed By: #### YELENA, 76353-0, 88280-1, PINR, CBCA #### [facility] ([id number]) [address] [place] [address] 50336 #### HA1C #### [facility] ([id number]) [address], [address] [place], [place] [address]VJNTKHE W/ REFLEXon 85-22-5008FXKCTIC W/REFLEX0.7 mmol/LNormal 0.4-2.0ProMedica Good Samaritan HospitalComment on above:Order Comment: Result did not trigger repeat Lactate,re-order if needed.Performed By: #### YELENA, 50862-9, 36110-2, PINR, CBCA #### [facility] ([id number]) [address] [place] [address] 12836 #### HA1C #### [facility] ([id number]) [address], [address] [place] [address]DLNQIUGJUbj 13-67-8700Iuxgwjibb [Mass/Vol]1.7 mg/dLLow1.8-2.6 Pro[facility]itan HospitalComment on above:Performed By: #### YELENA, 11611-9, 73409-1, PINR, CBCA #### [facility] ([id number]) [address] [place] [address] 67488 #### HA1C #### [facility] ([id number]) [address], [address] [place], [place] [address]VTZHRBD AND INRon 65-74-4290PHJ0.1Thdlmb8.9-1.2Pro[facility]ica [facility] Samaritan HospitalComment on above:Performed By: #### YELENA, 42318-8, 81537-2, PINR, CBCA #### [facility] ([id number]) [address] [place] [address] 00075 #### HA1C #### [facility] ([id number]) [address], [address] [place], [place] [address]QT Coag (PPP) [Time]12.3 sNormal9.8-13.2Pro[facility]aritan HospitalComforest health medical center on above:Performed By: #### BMP, 64986-5, 77685-2, RADHA HAWKINS #### [facility] ([id number]) [address] [facility] [place] [address] #### HA1C #### [facility] ([id number]) [address] [place] [address], [address] [place], [place] [address]IMGZ/FLU A+B/RSV BY NAAT/MOLECULAR (M4RT COLLECTION TUBE)on 97-94-1540ZVSU/FLU A+B/RSV BY NAAT/MOLECULAR (M4RT COLLECTION TUBE)FLU A PCR Negative FLU B PCR Negative RSV BY PCR Negative SARS COV 2 BY PCR Not DetectedNormalNot DetectedProMedica Good Samaritan HospitalComforest health medical center on above:Order Comment: The Xpert Xpress SARS-CoV-2/Flu/RSV Plus test is [...] operators who are performing tests using either GeneInVis[employer] DX or Vide[employer]classe.com and is limited to laboratories that meet [...] by this test are generally detectable in upperrespiratory samples during the acute phase of infection. [...] preclude SARS-CoV-2, influenza A, influenza B and RSVinfection and should not be used as the sole basis for treatment or other patient management decisions. Negative results must be combined with clinical observations, patient history and epidemiological information. An Invalid result may occur with specimen-associated inhibition unable to be resolved with specimen repeat.Fact Sheet for Healthcare Providers:https://www.fda.gov/media/495450/downloadFact Sheet for Patients:https://www.fda.gov/media/813196/downloadPerformed By: #### YELENA, 93199- 7, 83841-5, PINR, CBCA #### [facility] ([id number]) [address] [place] [address] #### HA1C #### [facility] ([id number]) [address], [address] [place], [place] [address]MCXP I, HIGH SENSITIVITY 1 HOURon 94-16-7894JYZPJWMD I, HIGH SENSITIVITY5 ng/LNormal<21ProHuntsville Memorial HospitalComment on above:Performed By: #### YELENA, 92212-9, 72380-4, PINR, CBCA #### [facility] ([id number]) [address] [place] [address] 61632 #### HA1C #### [facility] ([id number]) [address], [address] [place], [place] [address]YEEVCZQM I, HIGH SENSITIVITY 0 HOURon 06-10-0415MYIMVRNH I, HIGH SENSITIVITY5 ng/LNormal<21ProHuntsville Memorial HospitalComment on above:Performed By: #### YELENA, 28822-3, 23022-9, PINR, CBCA #### [facility] ([id number]) [address] [place] [address] 21744 #### HA1C #### [facility] ([id number]) [address], [address] [place], [place] [address]LS CHEST 1 VWon 29-18-6779LP CHEST 1 VWXR CHEST 1 VW Single view chest History: Weakness and chest pain Comparison: X-ray 09/14/2024 Findings: Single portable view of the chest. Cardiomediastinal silhouette and pulmonary vasculature are within normal limits. Hypoventilatory changes. Otherwise Lungs and pleural space are clear. There is no pleural effusion or pneumothorax.. Impression: Hypoventilatory changes otherwise no acute cardiopulmonary process. Finalized by Caleb Martinez on 05/24/2025 8:43 AMNormalMedina Hospital BASIC METABOLIC PANELon 28-95-5665Vofon gap [Moles/Vol]4 mmol/LLow5-15Medina HospitalComment on above:Performed By: #### YELENA, 54289-4, 66089-2, PINLaura, CBCA #### [facility] ([id number]) [address] [place] [address] 15831 #### HA1C #### [facility] ([id number]) [address] [facility], [address] [place], [place] [address]Sxuqnfa [Mass/Vol]8.0 mg/dLLow8.5-10.5PAvita [facility] Comment on above:Performed By: #### YELENA, 30073-1, 25718-8, PINR, CBCA #### [facility] ([id number]) [address] [place] [address] 07130 #### HA1C #### [facility] ([id number]) [address] [facility], [address] [place], [place] [address]Ttpnfujn [Moles/Vol]111 mmol/EDzks25-101QhvXtgxtiMedina HospitalComment on above:Performed By: #### YELENA, 28666-8, 82821-8, PINR, CBCA #### [facility] ([id number]) [address] [place] [address] 25950 #### HA1C #### [facility] ([id number]) [address], [address] [place], [place] [address]TO7 [Moles/Vol]23 mmol/RSsijab21-12QqbNzparvAvita Health System [facility] Comment on above:Performed By: #### YELENA, 63878-8, 41558-8, RADHA HAWKINS #### [facility] ([id number]) [address] [place] [address] 22765 #### HA1C #### [facility] ([id number]) [address] [facility], [address] [place], [place] [address]Zfaohpqkai [Mass/Vol]1.69 mg/dLHigh0.70-1.20Medina HospitalComment on above:Result Comment: METHOD TRACEABLE TO IDMS STANDARD Performed By: #### YELENA, 38381-5, 69308-4, RADHA HAWKINS #### [facility] ([id number]) [address] [place] [address] 28941 #### HA1C #### [facility] ([id number]) [address] [facility], [address] [place], [place] [address]OML/1.73 sq M.predicted among non-blacks MDRD (S/P/Bld) [Vol rate/Area]41 mL/min/{1.73_m2}Low>=60Medina HospitalComment on above: Result Comment: eGFR not reported due to non-numeric value for Creatinine. Reported eGFR is based on the CKD-EPI 2021 equation that does not use a race coefficient.Performed By: #### YELENA, 44112-9, 60062-0, PINLaura, CBCA #### [facility] ([id number]) [address] [place] [address] 73300 #### HA1C #### [facility] ([id number]) [address] [facility], [address] [place], [place] [address]Yqomsdl [Mass/Vol]89 mg/cHQgremq60-41SzzDrpptzMedina Hospital Comment on above:Performed By: #### YELENA, 86171-3, 43144-6, PINR, CBCA #### [facility] ([id number]) [address] [place] [address] 03571 #### HA1C #### [facility] ([id number]) [address], [address] [place], [place] [address]Pbohytcum [Moles/Vol]4.3 mmol/LNormal3.5-5.0ProHuntsville Memorial HospitalComment on above:Performed By: #### YELENA, 20980-5, 02159-5, PINR, CBCA #### [facility] ([id number]) [address] [place] [address] 73514 #### HA1C #### [facility] ([id number]) [address], [address] [place], [place] [address]Ezlxnh [Moles/Vol]138 mmol/QKnyqaa435-746IotOllctr [facility] HospitalComment on above:Performed By: #### YELENA, 90355-2, 88796-8, PINR, CBCA #### [facility] ([id number]) [address] [place] [address] 66870 #### HA1C #### [facility] ([id number]) [address], [address] [place], [place] [address]Kkdh nitrogen [Mass/Vol]25 mg/dLNormal5-27ProHuntsville Memorial HospitalComment on above:Performed By: #### YELENA, 21576-5, 05528-5, PINR, CBCA #### [facility] ([id number]) [address] [place] [address] 37357 #### HA1C #### [facility] ([id number]) [address], [address] [place], [place] [address]KGK WITH AUTO DIFFERENTIALon 83-87-2603QMVILNIBJ ABSOLUTE COUNT (10*3/UL) BY AUTOMATED COUNT0.0 10*3/uLNormal0.0-0.2[facility] Comment on above:Performed By: #### YELENA, 47361-9, 31953-3, PINR, CBCA #### [facility] ([id number]) [address] [place] [address] 93902 #### HA1C #### [facility] ([id number]) [address] [place] [address], [address] [place], [place] [address]CAQOYDFGP RELATIVE PERCENT BY AUTOMATED COUNT0.3 %Normal ProMDoctors Hospital of MantecaComment on above:Performed By: #### YELENA, 66303-2, 33724-0, PINR, CBCA #### [facility] ([id number]) [address] [place] [address] 21373 #### HA1C #### [facility] ([id number]) [address] [place] [address], [address] [place] [address]LGFJWZAPCXP DIFFERENTIAL TYPEAUTOMATED DIFFERENTIALNormal Medina HospitalComment on above:Performed By: #### YELENA, 46825-3, 03828-5, PINR, CBCA #### [facility] ([id number]) [address] [place] [address] 32288 #### HA1C #### [facility] ([id number]) [address] [place] [address], [address] [place], [place] [address]Otqllpklkny (Bld) [#/Vol]0.2 10*3/uLNormal0.0-0.4Pro[facility] Sam[facility]itan HospitalComment on above:Performed By: #### YELENA, 56453-0, 12518-6, PINR, CBCA #### [facility] ([id number]) [address] [place] [address] 44511 #### HA1C #### [facility] ([id number]) [address], [address] [place], [place] [address]IYECYTDTQVK RELATIVE PERCENT BY AUTOMATED COUNT2.9 %Normal [facility] HospitalComment on above:Performed By: #### YELENA, 31253-9, 13455-1, PINR, CBCA #### [facility] ([id number]) [address] [place] [address] 16296 #### HA1C #### [facility] ([id number]) [address] [facility] [place], [place] [address]Iadacosdcul distribution width (RBC) [Ratio]14.3 %Ulreku25.5-15 [facility] HospitalComment on above:Performed By: #### YELENA, 02669-3, 98205-4, PINR, CBCA #### [facility] ([id number]) [address] [place] [address] #### HA1C #### [facility] ([id number]) [address] [facility], [address] [place], [place] [address]Ufcmegylmk (Bld) [Volume fraction]39.7 %Kwkouz78-80NxoGvtzwpHuntsville Memorial HospitalComment on above:Performed By: #### YELENA, 16966-0, 66106-2, PINR, CBCA #### [facility] ([id number]) [address] [place] [address] #### HA1C #### [facility] ([id number]) [address] [facility], [address] [place], [place] [address]Xokahrseal (Bld) [Mass/Vol]13.4 g/jACjfajq35-24JyoGsthpyMedina HospitalComment on above:Performed By: #### YELENA, 96613-1, 47631-7, PINR, CBCA #### [facility] ([id number]) [address] [place] [address] #### HA1C #### [facility] ([id number]) [address], [address] [place], [place] [address]URYDMJTRJIJ ABSOLUTE COUNT (10*3/UL) BY AUTOMATED COUNT2.1 10*3/uLNormal1.0-3.5[facility]aritan HospitalComment on above:Performed By: #### YELENA, 96591-4, 44889-6, PINR, CBCA #### [facility] ([id number]) [address] [place] [address] #### HA1C #### [facility] ([id number]) [address], [address] [place], [place] [address]HFJENLPLLXS RELATIVE PERCENT BY AUTOMATED COUNT32.7 %Normal [facility] HospitalComment on above:Performed By: #### YELENA, 61059-7, 84892-9, PINR, CBCA #### [facility] ([id number]) [address] [place] [address] #### HA1C #### [facility] ([id number]) [address], [address] [place], [place] [address]RUY (RBC) [Entitic mass]29.3 lhApakuh51-83GpdVqgwdbHuntsville Memorial HospitalComment on above:Performed By: #### YELENA, 21389-4, 95277-7, PINR, CBCA #### [facility] ([id number]) [address] [place] [address] #### HA1C #### [facility] ([id number]) [address], [address] [place], [place] [address]WTTP (RBC) [Mass/Vol]33.8 g/wDVcuyby17-82YzhZewbfrHuntsville Memorial HospitalComment on above:Performed By: #### YELENA, 98099-5, 34400-4, PINR, CBCA #### [facility] ([id number]) [address] [place] [address] #### HA1C #### [facility] ([id number]) [address], [address] [place], [place] [address]WHD (RBC) [Entitic vol]87 aNXpxrfi93-901DjcUmjymn [facility]remont HospitalComment on above:Performed By: #### YELENA, 12226-7, 63731-2, PINR, CBCA #### [facility] ([id number]) [address] [place] [address] #### HA1C #### [facility] ([id number]) [address] [facility], [address] [place], [place] [address]RPGGDMWBL ABSOLUTE COUNT (10*3/UL) BY AUTOMATED COUNT0.5 10*3/uL Normal0.0-0.9ProHuntsville Memorial HospitalComment on above:Performed By: #### YELENA, 36411-7, 66194-7, PINR, CBCA #### [facility] ([id number]) [address] [place] [address] #### HA1C #### [facility] ([id number]) [address], [address] [place], [place] [address]JKYMKTMFW RELATIVE PERCENT BY AUTOMATED COUNT8.2 %Normal [facility]ar[facility] HospitalComment on above:Performed By: #### YELENA, 99323-7, 31859-3, PINR, CBCA #### [facility] ([id number]) [address] [place] [address] 19374 #### HA1C #### [facility] ([id number]) [address], [address] [place], [place] [address]WGHUTLEJAPA ABSOLUTE COUNT BY AUTOMATED COUNT3.6 10*3/uLNormal 1.5-6.6ProHuntsville Memorial HospitalComment on above:Performed By: #### YELENA, 41113- 7, 71778-7, PINR, CBCA #### [facility] ([id number]) [address] [place] [address] 83473 #### HA1C #### [facility] ([id number]) [address], [address] [place], [place] [address]RJJYFCOIJNG RELATIVE PERCENT BY AUTOMATED COUNT55.9 %Normal [facility] HospitalComment on above:Performed By: #### YELENA, 28274-1, 20853-9, PINR, CBCA #### [facility] ([id number]) [address] [place] [address] 73555 #### HA1C #### [facility] ([id number]) [address], [address] [place], [place] [address]Lgxflimz mean volume (Bld) [Entitic vol]7.5 fLNormal7-12 [facility] HospitalComment on above:Performed By: #### YELENA, 84515-7, 37916-4, PINR, CBCA #### [facility] ([id number]) [address] [place] [address] 02316 #### HA1C #### [facility] ([id number]) [address], [address] [place], [place] [address]Hivcgwyif (Bld) [#/Vol]194 10*3/pTKfsqud995-689DzhQbzzml [facility]itan HospitalComment on above:Performed By: #### YELENA, 26523-5, 80600-5, PINR, CBCA #### [facility] ([id number]) [address] [place] [address] 98026 #### HA1C #### [facility] ([id number]) [address], [address] [place], [place] [address]YDQ COUNT4.58 X10E12/LNormal4.1-5.7[facility] Comment on above:Performed By: #### YELENA, 03591-4, 78111-8, PINR, CBCA #### [facility] ([id number]) [address] [place] [address] 00408 #### HA1C #### [facility] ([id number]) [address] [facility], [address] [place], [place] [address]HFB (Bld) [#/Vol]6.5 10*3/uLNormal4-11[facility] Comment on above:Performed By: #### YELENA, 05215-2, 19322-0, PINR, CBCA #### [facility] ([id number]) [address] [place] [address] 49459 #### HA1C #### [facility] ([id number]) [address] [place] [address], [address] [place] [address]PYYFEIAELif 35-62-2770Uzohuttfe [Mass/Vol]1.8 mg/dLNormal1.8-2.6 [facility]ar[facility] HospitalComment on above:Performed By: #### YELENA, 13593-1, 77244-9, PINR, CBCA #### [facility] ([id number]) [address] [place] [address] 69033 #### HA1C #### [facility] ([id number]) [address] [facility], [address] [place], [place] [address]Cbocxjvvnx - Chemistry and Chemistry - challengeon 12-07-2024 Free T3 [Mass/Vol]3.2 pg/mL2.3 - 4.2 pg/mLNOMS HealthcareFree T4 [Mass/Vol]1.1 ng/dL0.8 - 1.8 ng/dLNOMS HealthcareProstate specific Ag [Mass/Vol]0.32 ng/mL< OR = 4.00NOMS HealthcareComment on above:The total PSA value from this assay system is standardized against the WHO standard. The test result will be approximately 20% lower when compared to the equimolar-standardized total PSA (Kika Herrin). Comparison of serial PSA results should be interpreted with this fact in mind. This test was performed using the Siemens chemiluminescent method. Values obtained from different assay methods cannot be used interchangeably. PSA levels, regardless of value, should not be interpreted as absolute evidence of the presence or absence of disease. TSH Qn4.48 m[IU]/LNOMS [facility] 14-64-3172Pxyjgjbajg Organization Information Site ID: QPT Name: [employer] [facility] Address: [address] [place] [address], [address] [place] [address] Director: Ariel TAMAscension [facility], [facility] 12-07-2024 PSA, TOTAL0.32 ng/mLNormal< OR = 4.00Quest DiagnosticsComment on above:Result Comment: The total PSA value from this [...] evidence of the presence or absence of disease.Performed By: #### 866, 899, 87820, 5378 #### [employer] [address], [address] [place] [address] Digital Tech: Ariel Bermeo MDT3, [facility] 21-02-4009Exfk T3 [Mass/Vol]3.2 pg/mLNormal2.3-4.2Quest DiagnosticsComment on above:Performed By: #### 866, 89Josr, 30305, 5363 #### [facility] [place] [address] Digital Tech: Ariel Bermeo MDT4, [facility] 62-40-7703Orjw T4 [Mass/Vol]1.1 ng/dLNormal0.8-1.8Quest DiagnosticsComment on above:Performed By: #### 866, 89Josr, 01740, 5363 #### [facility] [address], [address] [place] [address] Digital Tech: Ariel Solo 04-81-6087XDQ Qn4.48 m[IU]/LNormal 0.40-4.50Quest DiagnosticsComment on above:Performed By: #### 866, 899, 31684, 5363 #### [facility] [address], [address] [place] [address] Digital Tech: Ariel GARCIA 2 Extremitieson 89-29-2109TFMLCameron Regional Medical Center 07-25 NervesOrdered By: Tyler Sanchez on 29-31-4505ODOISaint John's Bree[facility] Work Phone: cbc AND AUTO DIFFon 50-93-4095KNQKKZDA BASOPHIL0.0 X10E9/LNormal0.0-0.2[facility] Samaritan HospitalComment on above:Performed By: #### YELENA, 59558-6, 40981-8, PINR, CBCA #### [facility] ([id number]) [address] [place] [address] 13608 #### HA1C #### [facility] ([id number]) [address] [place] [address], [address] [place], [place] [address]WLKSTBIC NEUTROPHIL3.1 X10E9/LNormal1.5-6.6[facility]ina HospitalComment on above:Performed By: #### YELENA, 42776-3, 74689-0, PINR, CBCA #### [facility] ([id number]) [address] [place] [address] 22621 #### HA1C #### [facility] ([id number]) [address] [place] [address], [address] [place], [place] [address]Puqrmnclc/100 WBC (Bld)0.4 %NormalProHuntsville Memorial Hospital Comment on above:Performed By: #### YELENA, 76133-9, 61162-6, PINR, CBCA #### [facility] ([id number]) [address] [place] [address] 37192 #### HA1C #### [facility] ([id number]) [address], [address] [place], [place] [address]Htteakvfnco (Bld) [#/Vol]0.1 10*3/uLNormal0.0-0.4ProHuntsville Memorial HospitalComment on above:Performed By: #### YELENA, 41305-9, 54194-9, PINR, CBCA #### [facility] ([id number]) [address] [place] [address] 50201 #### HA1C #### [facility] ([id number]) [address], [address] [place], [place] [address]Hruzsojoqcu/100 WBC (Bld)2.0 %NormalProHuntsville Memorial Hospital Comment on above:Performed By: #### YELENA, 78131-5, 30512-0, PINR, CBCA #### [facility] ([id number]) [address] [place] [address] 60360 #### HA1C #### [facility] ([id number]) [address], [address] [place], [place] [address]Omjlwtcnxul distribution width (RBC) [Ratio]14.5 %Normal 11.5-15.0ProHuntsville Memorial HospitalComment on above:Performed By: #### YELENA, 35583-7, 17128-2, PINR, CBCA #### [facility] ([id number]) [address] [place] [address] 08633 #### HA1C #### [facility] ([id number]) [address], [address] [place], [place] [address]Lrlcqlngwg (Bld) [Volume fraction]39.2 %Onkkqj20-74GgrPveqcoHuntsville Memorial HospitalComment on above:Performed By: #### YELENA, 54975-6, 25317-9, PINR, CBCA #### [facility] ([id number]) [address] [place] [address] 45930 #### HALory #### [facility] ([id number]) [address] [facility], [address] [place], [place] [address]Rvxphkugvo (Bld) [Mass/Vol]13.3 g/kXCgamri63.0-17.0ProHuntsville Memorial HospitalComment on above:Performed By: #### YELENA, 30578-8, 79224-7, PINR, CBCA #### [facility] ([id number]) [address] [place] [address] 60577 #### HALory #### [facility] ([id number]) [address] [facility], [address] [place], [place] [address]Fhvidopfnxw (Bld) [#/Vol]2.0 10*3/uLNormal1.0-3.5[facility]aritan HospitalComment on above:Performed By: #### YELENA, 79269-8, 36267-5, PINR, CBCA #### [facility] ([id number]) [address] [place] [address] 01254 #### HA1C #### [facility] ([id number]) [address] [facility], [address] [place], [place] [address]Ifhxfwiylid/100 WBC (Bld)34.9 %NormalProHuntsville Memorial Hospital Comment on above:Performed By: #### YELENA, 57446-9, 91633-4, PINR, CBCA #### [facility] ([id number]) [address] [place] [address] 99934 #### HA1C #### [facility] ([id number]) [address], [address] [place], [place] [address]OYK (RBC) [Entitic mass]29.8 ajWruxbq05-25HerCwuyqcHuntsville Memorial HospitalComment on above:Performed By: #### YELENA, 82250-8, 81460-7, PINR, CBCA #### [facility] ([id number]) [address] [place] [address] 20702 #### HA1C #### [facility] ([id number]) [address] [facility], [address] [place], [place] [address]MXDH (RBC) [Mass/Vol]33.9 g/fIPpxpxb40-39WccPriyqiHuntsville Memorial HospitalComment on above:Performed By: #### YELENA, 07309-8, 47949-1, PINR, CBCA #### [facility] ([id number]) [address] [place] [address] 76916 #### HA1C #### [facility] ([id number]) [address], [address] [place], [place] [address]HYK (RBC) [Entitic vol]88 xRAyghgb87-510TrwCfwbnr [facility] HospitalComment on above:Performed By: #### YELENA, 73626-6, 23207-8, PINR, CBCA #### [facility] ([id number]) [address] [place] [address] 68937 #### HA1C #### [facility] ([id number]) [address], [address] [place], [place] [address]Ttveajxyo (Bld) [#/Vol]0.5 10*3/uLNormal0-0.9ProHuntsville Memorial HospitalComment on above:Performed By: #### YELENA, 99703-4, 27574-3, PINR, CBCA #### [facility] ([id number]) [address] [place] [address] 78120 #### HA1C #### [facility] ([id number]) [address] [facility], [address] [place], [place] [address]Xjfpyvqid/100 WBC (Bld)8.6 %[facility] Comment on above:Performed By: #### YELENA, 24404-7, 94139-6, PINR, CBCA #### [facility] ([id number]) [address] [place] [address] 14266 #### HA1C #### [facility] ([id number]) [address] [facility], [address] [place], [place] [address]Gowuqzctpgi/100 WBC (Bld)54.1 %[facility] Comment on above:Performed By: #### YELENA, 13748-7, 54238-3, PINR, CBCA #### [facility] ([id number]) [address] [place] [address] 42428 #### HA1C #### [facility] ([id number]) [address] [facility], [address] [place], [place] [address]Ulaonrmc mean volume (Bld) [Entitic vol]8.0 fLNormal7-12 [facility] HospitalComment on above:Performed By: #### YELENA, 23935-6, 64009-8, PINR, CBCA #### [facility] ([id number]) [address] [place] [address] 23278 #### HA1C #### [facility] ([id number]) [address] [facility], [address] [place], [place] [address]Embavepln (Bld) [#/Vol]164 10*3/lWMdfpzv750-848ClbWtpatv [facility] HospitalComment on above:Performed By: #### YELENA, 95441-4, 47675-3, PINR, CBCA #### [facility] ([id number]) [address] [place] [address] 05989 #### HA1C #### [facility] ([id number]) [address], [address] [place] [address]JHG COUNT4.45 X10E12/LNormal4.10-5.70[facility] Comment on above:Performed By: #### YELENA, 56343-3, 14350-3, PINR, CBCA #### [facility] ([id number]) [address] [place] [address] 47798 #### HA1C #### [facility] ([id number]) [address] [facility], [address] [place] [address]KSL (Bld) [#/Vol]5.7 10*3/uLNormal4.0-11.0ProHuntsville Memorial HospitalComment on above:Performed By: #### YELENA, 39925-4, 06739-4, PINR, CBCA #### [facility] ([id number]) [address] [place] [address] 19103 #### HA1C #### [facility] ([id number]) [address] [facility], [address] [place], [place] [address]UMBCWMBWYXMEU METABOLIC PANELon 88-77-0940Nuczmqp [Mass/Vol]3.6 g/dLNormal3.2-5.3[facility] HospitalComment on above:Performed By: #### YELENA, 08146-2, 18319-1, PINR, CBCA #### [facility] ([id number]) [address] [place] [address] 48006 #### HA1C #### [facility] ([id number]) [address], [address] [place], [place] [address]TAB [Catalytic activity/Vol]67 U/HKsmsiu07-286ZssJfqsexHuntsville Memorial HospitalComment on above:Performed By: #### YELENA, 18324-4, 72367-7, PINR, CBCA #### [facility] ([id number]) [address] [place] [address] 98638 #### HA1C #### [facility] ([id number]) [address], [address] [place] [address]GZA [Catalytic activity/Vol]32 U/LNormal0-40ProHuntsville Memorial HospitalComment on above:Performed By: #### YELENA, 44183-1, 08204-1, PINR, CBCA #### [facility] ([id number]) [address] [place] [address] 50077 #### HA1C #### [facility] ([id number]) [address], [address] [place], [place] [address]Gauem gap [Moles/Vol]8 mmol/LNormal5-15ProHuntsville Memorial HospitalComment on above:Performed By: #### YELENA, 59269-0, 68502-9, PINR, CBCA #### [facility] ([id number]) [address] [place] [address] 80839 #### HA1C #### [facility] ([id number]) [address], [address] [place], [place] [address]YTN [Catalytic activity/Vol]30 U/LNormal0-41ProHuntsville Memorial HospitalComment on above:Performed By: #### YELENA, 48327-5, 84563-2, PINR, CBCA #### [facility] ([id number]) [address] [place] [address] 21578 #### HA1C #### [facility] ([id number]) [address], [address] [place], [place] [address]Tplmjzqnj [Mass/Vol]0.9 mg/dLNormal0.3-1.2[facility] HospitalComment on above:Performed By: #### YELENA, 64754-2, 52807-3, PINR, CBCA #### [facility] ([id number]) [address] [place] [address] 49374 #### HA1C #### [facility] ([id number]) [address], [address] [place], [place] [address]Icrbwsa [Mass/Vol]8.4 mg/dLLow8.5-10.5PAv[facility] Comment on above:Performed By: #### YELENA, 33483-7, 70403-5, PINR, CBCA #### [facility] ([id number]) [address] [place] [address] 37609 #### HA1C #### [facility] ([id number]) [address], [address] [place], [place] [address]Wdmgoxto [Moles/Vol]108 mmol/ENtfkhu33-896UkuLcxsfm [facility] HospitalComment on above:Performed By: #### YELENA, 32867-2, 20767-1, PINR, CBCA #### [facility] ([id number]) [address] [place] [address] 61045 #### HA1C #### [facility] ([id number]) [address], [address] [place], [place] [address]NR8 [Moles/Vol]25 mmol/YQzbvvr46-82HqzOoebswAvita Health [facility] Comment on above:Performed By: #### YELENA, 79594-4, 73476-9, PINR, CBCA #### [facility] ([id number]) [address] [place] [address] 79616 #### HA1C #### [facility] ([id number]) [address], [address] [place], [place] [address]Wddazfjqkx [Mass/Vol]1.30 mg/dLHigh0.70-1.20ProHuntsville Memorial HospitalComment on above:Result Comment: METHOD TRACEABLE TO IDMS STANDARD Performed By: #### YELENA, 91858-1, 22596-3, RADHA HAWKINS #### [facility] ([id number]) [address] [place] [address] 42605 #### HA1C #### [facility] ([id number]) [address] [facility], [address] [place], [place] [address]CCX/1.73 sq M.predicted among non-blacks MDRD (S/P/Bld) [Vol rate/Area]57 mL/min/{1.73_m2}Low>59ProHuntsville Memorial HospitalComment on above: Result Comment: Reported eGFR is based on the CKD-EPI 2020 equation that does not use a race coefficient.Performed By: #### YELENA, 61227-9, 76670-3, RADHA HAWKINS #### [facility] ([id number]) [address] [place] [address] 50028 #### HA1C #### [facility] ([id number]) [address] [facility], [address] [place], [place] [address]Iaesivb [Mass/Vol]89 mg/pROkyojl84-08FaeOrtjcxMedina Hospital Comment on above:Performed By: #### YELENA, 44177-6, 09354-2, RADHA HAWKINS #### [facility] ([id number]) [address] [place] [address] 76448 #### HA1C #### [facility] ([id number]) [address] [facility], [address] [place], [place] [address]Lasoqbtfw [Moles/Vol]3.9 mmol/LNormal3.5-5.0ProHuntsville Memorial HospitalComment on above:Performed By: #### YELENA, 06630-2, 17631-8, RADHA HAWKINS #### [facility] ([id number]) [address] [place] [address] 02453 #### HA1C #### [facility] ([id number]) [address] [place] [address], [address] [place], [place] [address]Goxfild [Mass/Vol]6.1 g/dLNormal6.0-8.0ProHuntsville Memorial HospitalComment on above:Performed By: #### YELENA 27385-7, 96706-3, PINR, CBCA #### [facility] ([id number]) [address] [place] [address] 88182 #### HA1C #### [facility] ([id number]) [address] [facility], [address] [place], [place] [address]Wvlfvp [Moles/Vol]141 mmol/RWikrof599-136KbwPsocsg [facility] HospitalComment on above:Performed By: #### YELENA 70194-2, 48689-8, PINR, CBCA #### [facility] ([id number]) [address] [place] [address] 04142 #### HA1C #### [facility] ([id number]) [address] [place] [address], [address] [place], [place] [address]Kjuj nitrogen [Mass/Vol]20 mg/dLNormal5-27ProHuntsville Memorial HospitalComment on above:Performed By: #### YELENA 10197-4, 15019-1, PINR, CBCA #### [facility] ([id number]) [address] [place] [address] 99560 #### HA1C #### [facility] ([id number]) [address] [place] [address], [address] [place], [place] [address]QWIVKDSNCnq 70-54-0999Zbktfoszt [Mass/Vol]1.8 mg/dLNormal1.8-2.6 [facility] HospitalComment on above:Performed By: #### YELENA 18655-5, 60977-7, PINR, CBCA #### [facility] ([id number]) [address] [place] [address] 52742 #### HA1C #### [facility] ([id number]) [address], [address] [place], [place] [address]OYV AND AUTO DIFFon 21-89-8190IXMIVTMK BASOPHIL0.0 X10E9/LNormal 0.0-0.2[facility]itan HospitalComment on above:Performed By: #### YELENA, 77209- 7, 86675-9, PINR, CBCA #### [facility] ([id number]) [address] [place] [address] 38414 #### HA1C #### [facility] ([id number]) [address] [facility], [address] [place], [place] [address]WRKZTUWA NEUTROPHIL3.7 X10E9/LNormal1.5-6.6ProOhiohealth Hardin Memorial Hospitalca Good Samaritan HospitalComment on above:Performed By: #### YELENA, 73246-3, 85352-5, PINR, CBCA #### [facility] ([id number]) [address] [place] [address] 34180 #### HA1C #### [facility] ([id number]) [address] [facility], [address] [place], [place] [address]Lpumvfezs/100 WBC (Bld)0.5 %NormalProHuntsville Memorial Hospital Comment on above:Performed By: #### YELENA, 88978-9, 26037-6, PINR, CBCA #### [facility] ([id number]) [address] [place] [address] 37014 #### HA1C #### [facility] ([id number]) [address] [facility], [address] [place], [place] [address]Qnqdjeutijr (Bld) [#/Vol]0.1 10*3/uLNormal0.0-0.4ProHuntsville Memorial HospitalComment on above:Performed By: #### YELENA, 58561-2, 30186-2, PINR, CBCA #### [facility] ([id number]) [address] [place] [address] #### HA1C #### [facility] ([id number]) [address] [place] [address], [address] [place], [place] [address]Mdpvpxdgbgd/100 WBC (Bld)1.5 %NormalProHuntsville Memorial Hospital Comment on above:Performed By: #### YELENA, 29682-5, 98764-5, PINR, CBCA #### [facility] ([id number]) [address] [place] [address] #### HA1C #### [facility] ([id number]) [address] [place] [address], [address] [place], [place] [address]Ikjuofysjqg distribution width (RBC) [Ratio]14.7 %Normal 11.5-15.0ProHuntsville Memorial HospitalComment on above:Performed By: #### YELENA, 23138-9, 14559-7, PINR, CBCA #### [facility] ([id number]) [address] [place] [address] #### HA1C #### [facility] ([id number]) [address] [place] [address], [address] [place], [place] [address]Tmmgkawbor (Bld) [Volume fraction]41.1 %Iriavi34-88VyqFoshnaHuntsville Memorial HospitalComment on above:Performed By: #### YELENA, 36154-4, 35203-7, PINR, CBCA #### [facility] ([id number]) [address] [place] [address] #### HA1C #### [facility] ([id number]) [address] [place] [address], [address] [place], [place] [address]Yhpywvhjtp (Bld) [Mass/Vol]13.6 g/jIYbsfou54.0-17.0Medina HospitalComment on above:Performed By: #### YELENA, 63716-7, 29574-8, PINR, CBCA #### [facility] ([id number]) [address] [place] [address] #### HA1C #### [facility] ([id number]) [address], [address] [place], [place] [address]Mhilnvznwtb (Bld) [#/Vol]1.6 10*3/uLNormal1.0-3.5PHuey P. Long Medical Centerica Good Samaritan HospitalComment on above:Performed By: #### YELENA, 87869-9, 80540-6, PINR, CBCA #### [facility] ([id number]) [address] [place] [address] #### HA1C #### [facility] ([id number]) [address] [facility] [address], [address] [place], [place] [address]Clxjdurjstw/100 WBC (Bld)27.9 %NormalProHuntsville Memorial Hospital Comment on above:Performed By: #### YELENA, 72667-7, 38127-4, PINR, CBCA #### [facility] ([id number]) [address] [place] [address] #### HA1C #### [facility] ([id number]) [address], [address] [place], [place] [address]UWO (RBC) [Entitic mass]29.4 afKdtoii07-92WfpQztrqmHuntsville Memorial HospitalComment on above:Performed By: #### YELENA, 44657-3, 94058-4, PINR, CBCA #### [facility] ([id number]) [address] [place] [address] [place] [address] #### HA1C #### [facility] ([id number]) [address] [facility], [address] [place], [place] [address]DIXH (RBC) [Mass/Vol]33.2 g/dYYavagk42-73XtmGngnzuHuntsville Memorial HospitalComment on above:Performed By: #### YELENA, 34124-3, 53256-1, PINR, CBCA #### [facility] ([id number]) [address] [place] [address] #### HA1C #### [facility] ([id number]) [address] [facility], [address] [place], [place] [address]ZPY (RBC) [Entitic vol]89 hSObjikl70-889PivHktjmh [place] HospitalComment on above:Performed By: #### YELENA, 41303-3, 58051-7, PINR, CBCA #### [facility] ([id number]) [address] [place] [address] #### HA1C #### [facility] ([id number]) [address] [facility], [address] [place], [place] [address]Crnvwlyqt (Bld) [#/Vol]0.3 10*3/uLNormal0-0.9Medina HospitalComment on above:Performed By: #### YELENA, 39656-3, 54945-8, PINR, CBCA #### [facility] ([id number]) [address] [place] [address] #### HA1C #### [facility] ([id number]) [address] [facility], [address] [place], [place] [address]Lvmkadceh/100 WBC (Bld)6.1 %NormalProHuntsville Memorial Hospital Comment on above:Performed By: #### YELENA, 41277-5, 99525-7, PINR, CBCA #### [facility] ([id number]) [address] [place] [address] #### HA1C #### [facility] ([id number]) [address], [address] [place], [place] [address]Xekuqtfhyfa/100 WBC (Bld)64.0 %NormalMedina Hospital Comment on above:Performed By: #### YELENA, 77596-4, 26761-8, PINR, CBCA #### [facility] ([id number]) [address] [place] [address] #### HA1C #### [facility] ([id number]) [address] [facility], [address] [place], [place] [address]Klnadhda mean volume (Bld) [Entitic vol]7.8 fLNormal7-12 [facility]aritan HospitalComment on above:Performed By: #### YELENA, 89697-9, 41140-1, PINR, CBCA #### [facility] ([id number]) [address] [place] [address] 14564 #### HA1C #### [facility] ([id number]) [address] [facility], [address] [place], [place] [address]Pwbqmjogh (Bld) [#/Vol]184 10*3/tIImgiau135-019MzuVayhpi [facility]remont HospitalComment on above:Performed By: #### YELENA, 71655-2, 09937-1, PINR, CBCA #### [facility] ([id number]) [address] [place] [address] #### HA1C #### [facility] ([id number]) [address] [facility], [address] [place], [place] [address]JQJ COUNT4.64 X10E12/LNormal4.10-5.70[facility] Comment on above:Performed By: #### YELENA, 45945-5, 05191-8, PINR, CBCA #### [facility] ([id number]) [address] [place] [address] 47408 #### HA1C #### [facility] ([id number]) [address], [address] [place], [place] [address]YEC (Bld) [#/Vol]5.7 10*3/uLNormal4.0-11.0ProHuntsville Memorial HospitalComment on above:Performed By: #### YELENA, 95321-2, 92113-7, PINR, CBCA #### [facility] ([id number]) [address] [place] [address] 10479 #### HA1C #### [facility] ([id number]) [address], [address] [place], [place] [address]OAONXOUSFNWZD METABOLIC PANELon 62-21-1358Jvmrxzf [Mass/Vol]3.8 g/dLNormal3.2-5.3Pro[facility]aritan HospitalComment on above:Performed By: #### YELENA, 86399-6, 69317-2, PINR, CBCA #### [facility] ([id number]) [address] [place] [address] 64115 #### HA1C #### [facility] ([id number]) [address], [address] [place], [place] [address]NFQ [Catalytic activity/Vol]76 U/YPadfin40-598KcyXzgyzvHuntsville Memorial HospitalComment on above:Performed By: #### YELENA, 65742-2, 21368-3, PINR, CBCA #### [facility] ([id number]) [address] [place] [address] 35936 #### HA1C #### [facility] ([id number]) [address], [address] [place], [place] [address]PLS [Catalytic activity/Vol]27 U/LNormal0-40ProHuntsville Memorial HospitalComment on above:Performed By: #### YELENA, 96314-5, 58896-3, PINR, CBCA #### [facility] ([id number]) [address] [place] [address] 77468 #### HA1C #### [facility] ([id number]) [address] [place] [address], [address] [place], [place] [address]Xvwcq gap [Moles/Vol]6 mmol/LNormal5-15ProHuntsville Memorial HospitalComment on above:Performed By: #### YELENA, 81281-9, 49110-2, PINR, CBCA #### [facility] ([id number]) [address] [place] [address] 50441 #### HA1C #### [facility] ([id number]) [address] [place] [address], [address] [place] [address]OES [Catalytic activity/Vol]29 U/LNormal0-41ProHuntsville Memorial HospitalComment on above:Performed By: #### YELENA, 42024-2, 22527-7, PINR, CBCA #### [facility] ([id number]) [address] [place] [address] 22303 #### HA1C #### [facility] ([id number]) [facility], [address] [place], [place] [address]Xtmoaexvk [Mass/Vol]0.7 mg/dLNormal0.3-1.2Pro[facility] Samaritan HospitalComment on above:Performed By: #### YELENA, 60069-7, 14586-2, PINR, CBCA #### [facility] ([id number]) [address] [place] [address] 20782 #### HA1C #### [facility] ([id number]) [address] [place] [address], [address] [place] [address]Kfkdbey [Mass/Vol]8.4 mg/dLLow8.5-10.5PAv[facility] Comment on above:Performed By: #### YELENA, 39409-8, 55730-9, PINR, CBCA #### [facility] ([id number]) [address] [place] [address] 96760 #### HA1C #### [facility] ([id number]) [address] [facility], [address] [place] [address]Rkyoqint [Moles/Vol]109 mmol/CRethbw75-184BlhMskpueHuntsville Memorial HospitalComment on above:Performed By: #### YELENA 18696-6, 83562-1, PINLaura, CBCA #### [facility] ([id number]) [address] [place] [address] 24098 #### HA1C #### [facility] ([id number]) [address] [facility], [address] [place], [place] [address]OZ5 [Moles/Vol]24 mmol/MJaowlf88-85VqgSqakduAvita Health System [facility] Comment on above:Performed By: #### YELENA, 23870-0, 04949-0, PINR, CBCA #### [facility] ([id number]) [address] [place] [address]108 #### HA1C #### [facility] ([id number]) [address] [facility], [address] [place], [place] [address]Mfzqrgofzi [Mass/Vol]1.56 mg/dLHigh0.70-1.20ProHuntsville Memorial HospitalComment on above:Result Comment: METHOD TRACEABLE TO IDMS STANDARD Performed By: #### YELENA, 42511-7, 65050-5, PINR, CBCA #### [facility] ([id number]) [address] [place] [address] 788[address] #### HA1C #### [facility] ([id number]) [address], [address] [place], [place] [address]EPP/1.73 sq M.predicted among non-blacks MDRD (S/P/Bld) [Vol rate/Area]45 mL/min/{1.73_m2}Low>59ProHuntsville Memorial HospitalComment on above: Result Comment: Reported eGFR is based on the CKD-EPI 2020 equation that does not use a race coefficient.Performed By: #### YELENA, 13631-4, 34506-3, PINR, CBCA #### [facility] ([id number]) [address] [place] [address] 59[address] #### DEVONTE #### [facility] ([id number]) [address], [address] [place], [place] [address]Zblbjlp [Mass/Vol]174 mg/fJVgju64-50BnrCtstevHuntsville Memorial Hospital Comment on above:Performed By: #### YELENA, 95052-4, 61402-8, PINR, CBCA #### [facility] ([id number]) [address] [place] [address] 02593 #### DEVONTE #### [facility] ([id number]) [address], [address] [place], [place] [address]Fxduhdjtw [Moles/Vol]3.7 mmol/LNormal3.5-5.0ProHuntsville Memorial HospitalComment on above:Performed By: #### YELENA, 35921-6, 73773-3, PINR, CBCA #### [facility] ([id number]) [address] [place] [address] 48743 #### DEVONTE #### [facility] ([id number]) [address], [address] [place], [place] [address]Fjhmqdx [Mass/Vol]6.5 g/dLNormal6.0-8.0ProHuntsville Memorial HospitalComment on above:Performed By: #### YELENA, 48690-9, 05465-3, PINR, CBCA #### [facility] ([id number]) [address] [place] [address] 97744 #### HA1C #### [facility] ([id number]) [address], [address] [place], [place] [address]Uuomtg [Moles/Vol]139 mmol/ZApwbdj288-981GctLxlgknMedina HospitalComment on above:Performed By: #### YELENA, 65710-7, 73153-4, PINR, CBCA #### [facility] ([id number]) [address] [place] [address] 54716 #### HA1C #### [facility] ([id number]) [address], [address] [place], [place] [address]Simu nitrogen [Mass/Vol]20 mg/dLNormal5-27ProHuntsville Memorial HospitalComment on above:Performed By: #### YELENA, 15851-2, 65870-9, PINR, CBCA #### [facility] ([id number]) [address] [place] [address] 11718 #### HA1C #### [facility] ([id number]) [address], [address] [place], [place] [address]AL BRAIN WO CONT STROKE ALERTon 76-55-7565TO BRAIN WO CONT STROKE ALERTCT BRAIN WO CONT STROKE ALERT CLINICAL INFORMATION: [...] by Joey Tejada MD on 10/06/2024 12:47 PMNormalProHuntsville Memorial HospitalGlucose Glucometer (BldC) [Mass/Vol]on 31-88-7267Gxckwqp [Mass/Vol]73 mg/dHRtuzux90-82KxhQplquoMedina HospitalGlucose [Mass/Vol]192 mg/zZOhjh65-68 ProMedicPacifica Hospital Of The ValleyLIPASEon 16-25-5492Mfgdch [Catalytic activity/Vol]29 U/YZblzst83-88UnfQrijfrHuntsville Memorial HospitalComment on above:Performed By: #### YELENA, 05205-9, 27692-7, PINR, CBCA #### [facility] ([id number]) [address] [place] [address] 11653 #### HA1C #### [facility] ([id number]) [address], [address] [place], [place] [address]Ebbzrarbdag peptide B [Mass/Vol]on 50-34-8217Sldugbmpcev peptide B (Bld) [Mass/Vol]26 pg/mLNormal<100.0ProHuntsville Memorial HospitalComment on above:Performed By: #### YELENA, 77809-0, 66103-4, PINR, CBCA #### [facility] ([id number]) [address] [place] [address] 85140 #### HA1C #### [facility] ([id number]) [address], [address] [place], [place] [address]LCPE/FLU A+B/RSV by NAAT/Molecularon 13-80-7912NNRB/FLU A+B/RSV by NAAT/MolecularFLU A PCR Negative (qualifier value) FLU B [...] operators who are performing tests using either [employer] or [employer] systems and is limited to laboratories that [...] specimen repeat. Fact Sheet for Healthcare Providers: https://www.fda.gov/media/536669/download Fact Sheet for Patients: https://www.fda.gov/media/699315/downloadNormalProHuntsville Memorial HospitalComment on above:Performed By: #### YELENA, 13709-2, 35677-1, PINR, CBCA #### [facility] ([id number]) [address] [place] [address], [place] [address] #### HA1C #### [facility] ([id number]) [address] [place] [address], [address] [place], [place] [address]JANSHSO PROFILEon 11-24-8848Yafu T4 [Mass/Vol]0.77 ng/dLNormal 0.61-1.60ProHuntsville Memorial HospitalComment on above:Performed By: #### YELENA, 89611-3, 93821-7, PINR, CBCA #### [facility] ([id number]) [address] [place] [address] 12044 #### HA1C #### [facility] ([id number]) [address], [address] [place], [place] [address]WZY3.84 uIU/mLHigh0.49-4.67ProHuntsville Memorial HospitalComment on above:Performed By: #### YELENA, 78472-7, 89867-0, PINR, CBCA #### [facility] ([id number]) [address] [place] [address] 34582 #### HA1C #### [facility] ([id number]) [address], [address] [place] [address]Ttqnqywy I.cardiac High sensitivity method [Mass/Vol]on HOUR TROP I, HIGH SENSITIVITY4 ng/LNormal<21ProHuntsville Memorial HospitalComment on above:Performed By: #### YELENA, 35215-1, 38053-2, PINR, CBCA #### [facility] ([id number]) [address] [place] [address] 96500 #### HA1C #### [facility] ([id number]) [address], [address] [place] [address]NFGCLKVU I, HIGH SENSITIVITY4 ng/LNormal<21ProHuntsville Memorial HospitalComment on above:Performed By: #### YELENA, 09839-8, 88665-4, PINR, CBCA #### [facility] ([id number]) [address] [place] [address] 72664 #### HA1C #### [facility] ([id number]) [address], [address] [place], [place] [address]ROKZAAI B12on 56-62-7928Tdizqopcy (Vitamin B12) [Mass/Vol]180 pg/fPDwsgcg316-756IcdAupaif Good Samaritan HospitalComment on above:Performed By: #### YELENA, 91015-7, 86592-3, PINLaura, CBCA #### [facility] ([id number]) [address] [place] [address] 48047 #### HA1C #### [facility] ([id number]) [address] [facility], [address] [place], [place] [address]rLNQ Coag (PPP) [Time]on 48-37-7720fSPO Coag (Bld) [Time]34 s Kacyoq45-69DvsGcsrae Good Samaritan HospitalComment on above:Result Comment: NEW REFERENCE RANGEPerformed By: #### YELENA, 45793-8, 17074-4, PINLaura, CBCA #### [facility] ([id number]) [address] [place] [address] 06768 #### HA1C #### [facility] ([id number]) [address] [facility], [address] [place], [place] [address]EGJYS METABOLIC PANELon 50-88-3969Flwpkzo [Mass/Vol]8.4 mg/dLLow 8.6-10.3Quest DiagnosticsComment on above:Order Comment: FASTING:YES FASTING: YESPerformed By: #### [id number] #### [facility] [address] [place] [address] Digital Tech: Casi BarnesiChloride [Moles/Vol]109 mmol/BGanlvu92-208 Quest DiagnosticsComment on above:Order Comment: FASTING:YES FASTING: YESPerformed By: #### 89120 #### [facility] [address] [place] [address] Digital Tech: Casi BarnesiCO2 [Moles/Vol]30 mmol/EUjougy45-92Tkcgi DiagnosticsComment on above:Order Comment: FASTING:YES FASTING: YESPerformed By: #### 10879 #### [facility] [address] [place], [place] [address] Digital Tech: Casi BarnesiCreatinine [Mass/Vol]1.56 mg/dLHigh0.70-1.28 Quest DiagnosticsComment on above:Order Comment: FASTING:YES FASTING: YESPerformed By: #### 21875 #### [facility] [address] [place], [place] [address] Digital Tech: Casi BarnesiGFR/1.73 sq M.predicted among non-blacks MDRD (S/P/Bld) [Vol rate/Area]45 mL/min/{1.73_m2}Low> OR = 60Quest DiagnosticsComment on above:Order Comment: FASTING:YES FASTING: YESPerformed By: #### 42665 #### [facility] [address] [place], [place] [address] Digital Tech: Casi BarnesiGlucose [Mass/Vol]83 mg/aJIyzbmv74-89Kwgws DiagnosticsComment on above:Order Comment: FASTING:YES FASTING: YESResult Comment: Fasting reference intervalPerformed By: #### 78799 #### [facility] [address] [place], [place] [address] Digital Tech: Casi Sanchez FlatiPotassium [Moles/Vol]4.0 mmol/LNormal3.5-5.3 Quest DiagnosticsComment on above:Order Comment: FASTING:YES FASTING: YESPerformed By: #### 13645 #### [facility] [address] [place], [place] [address] Digital Tech: Casi Sanchez FlatiSodium [Moles/Vol]144 mmol/KWdstrr344-137Dktmi DiagnosticsComment on above:Order Comment: FASTING:YES FASTING: YESPerformed By: #### 45537 #### [facility] [address] [place], [place] [address] Digital Tech: Casi BarnesiUrea nitrogen [Mass/Vol]19 mg/dLNormal7-25 Quest DiagnosticsComment on above:Order Comment: FASTING:YES FASTING: YESPerformed By: #### 05223 #### [facility] [address] [place] [address] Digital Tech: Casi BarnesiUrea nitrogen/Creatinine [Mass ratio]12 mg/mg Normal03-04Quest DiagnosticsComment on above:Order Comment: FASTING:YES FASTING: YESPerformed By: #### 72986 #### [facility] [address] [place] [address] Digital Tech: Casi BarnesiCBC AND AUTO DIFFon 84-59-8785OBQGRPPY BASOPHIL0.0 X10E9/LNormal0.0-0.2ProMedica Good Samaritan HospitalComment on above: Performed By: #### YELENA, 03569-6, 52479-6, PINR, CBCA #### [facility] ([id number]) [address] [place] [address] #### HA1C #### [facility] ([id number]) [address] [place] [address], [address] [place], [place] [address]UQVTNARG NEUTROPHIL4.5 X10E9/LNormal1.5-6.6ProHuntsville Memorial HospitalComment on above:Performed By: #### YELENA, 55086-6, 77087-7, PINR, CBCA #### [facility] ([id number]) [address] [place] [address] 22683 #### HA1C #### [facility] ([id number]) [address] [place] [address], [address] [place], [place] [address]Hbvndcpzj/100 WBC (Bld)0.6 %NormalMedina Hospital Comment on above:Performed By: #### YELENA, 18899-7, 46197-2, PINR, CBCA #### [facility] ([id number]) [address] [place] [address]35 #### HA1C #### [facility] ([id number]) [address] [place] [address], [address] [place], [place] [address]Jkmteiwzejr (Bld) [#/Vol]0.2 10*3/uLNormal0.0-0.4ProHuntsville Memorial HospitalComment on above:Performed By: #### YELENA, 84516-9, 37813-1, PINR, CBCA #### [facility] ([id number]) [address] [place] [address] 79[address] #### HA1C #### [facility] ([id number]) [address] [place] [address], [address] [place], [place] [address]Jypewcshhqb/100 WBC (Bld)2.6 %NormalProHuntsville Memorial Hospital Comment on above:Performed By: #### YELENA 94461-0, 67859-7, PINR, CBCA #### [facility] ([id number]) [address] [place] [address] #### HA1C #### [facility] ([id number]) [address] [place] [address], [address] [place], [place] [address]Bysnfkplxmv distribution width (RBC) [Ratio]14.5 %Normal 11.5-15.0ProHuntsville Memorial HospitalComment on above:Performed By: #### YELENA, 52420-0, 81672-0, PINR, CBCA #### [facility] ([id number]) [address] [place] [address] 89184 #### HA1C #### [facility] ([id number]) [address] [place] [address], [address] [place], [place] [address]Edkyfadqwo (Bld) [Volume fraction]43.2 %Pdbnth34-54NoxUtiketHuntsville Memorial HospitalComment on above:Performed By: #### YELENA, 05300-1, 10413-0, PINR, CBCA #### [facility] ([id number]) [address] [place] [address] 85017 #### HA1C #### [facility] ([id number]) [address], [address] [place], [place] [address]Qsfmrhxqgv (Bld) [Mass/Vol]14.2 g/qWByuvep94.0-17.0Medina HospitalComment on above:Performed By: #### YELENA, 75824-2, 17676-4, PINR, CBCA #### [facility] ([id number]) [address] [place] [address] 47089 #### HA1C #### [facility] ([id number]) [address] [facility], [address] [place], [place] [address]Ksmezmezkyv (Bld) [#/Vol]2.1 10*3/uLNormal1.0-3.5ProMedica Good Samaritan HospitalComment on above:Performed By: #### YELENA, 25862-3, 86410-0, PINR, CBCA #### [facility] ([id number]) [address] [place] [address] #### HA1C #### [facility] ([id number]) [address] [facility], [address] [place], [place] [address]Vjcgfhwxtnx/100 WBC (Bld)28.3 %NormalProHuntsville Memorial Hospital Comment on above:Performed By: #### YELENA, 60249-5, 50092-1, PINR, CBCA #### [facility] ([id number]) [address] [place] [address] 05823 #### HA1C #### [facility] ([id number]) [address] [facility], [address] [place], [place] [address]NAC (RBC) [Entitic mass]29.1 uyFrdthc31-62RokJvbnznHuntsville Memorial HospitalComment on above:Performed By: #### YELENA, 06158-3, 70402-7, PINR, CBCA #### [facility] ([id number]) [address] [place] [address] #### HA1C #### [facility] ([id number]) [address] [facility], [address] [place], [place] [address]MDRX (RBC) [Mass/Vol]32.8 g/yNIutssg54-77KekFcnjqeHuntsville Memorial HospitalComment on above:Performed By: #### YELENA, 47138-6, 91922-7, PINR, CBCA #### [facility] ([id number]) [address] [place] [address] 83589 #### HA1C #### [facility] ([id number]) [address] [facility], [address] [place], [place] [address]UBR (RBC) [Entitic vol]89 jIBbxyqr17-220EppQhikci [facility]ont HospitalComment on above:Performed By: #### YELENA, 09645-6, 70495-8, PINR, CBCA #### [facility] ([id number]) [address] [place] [address] 61477 #### HA1C #### [facility] ([id number]) [address] [facility], [address] [place], [place] [address]Kmzuzbiap (Bld) [#/Vol]0.5 10*3/uLNormal0-0.9Medina HospitalComment on above:Performed By: #### YELENA, 31359-3, 20274-8, PINR, CBCA #### [facility] ([id number]) [address] [place] [address] #### HA1C #### [facility] ([id number]) [address] [facility], [address] [place], [place] [address]Dufhqkoca/100 WBC (Bld)6.7 %NormalMedina Hospital Comment on above:Performed By: #### YELENA, 42259-8, 70286-1, PINR, CBCA #### [facility] ([id number]) [address] [place] [address] #### HA1C #### [facility] ([id number]) [address], [address] [place], [place] [address]Vocsnlqywjj/100 WBC (Bld)61.8 %NormalMedina Hospital Comment on above:Performed By: #### YELENA, 25619-2, 98670-1, PINR, CBCA #### [facility] ([id number]) [address] [place] [address] #### HA1C #### [facility] ([id number]) [address] [facility] [place], [place] [address]Vshptjbs mean volume (Bld) [Entitic vol]8.2 fLNormal7-12 [facility] HospitalComment on above:Performed By: #### YELENA, 42962-0, 94498-3, PINR, CBCA #### [facility] ([id number]) [address] [place] [address] #### HALory #### [facility] ([id number]) [address], [address] [place], [place] [address]Odkqqqdrv (Bld) [#/Vol]150 10*3/zPEirbeg750-071CjwJdqmam Fremont HospitalComment on above:Performed By: #### YELENA, 70294-4, 88940-7, PINR, CBCA #### [facility] ([id number]) [address] [place] [address] #### HA1C #### [facility] ([id number]) [address], [address] [place], [place] [address]SUW COUNT4.88 X10E12/LNormal4.10-5.70[facility] Comment on above:Performed By: #### YELENA, 37123-2, 82346-8, PINR, CBCA #### [facility] ([id number]) [address] [place] [address] #### HA1C #### [facility] ([id number]) [address], [address] [place], [place] [address]DVD (Bld) [#/Vol]7.3 10*3/uLNormal4.0-11.0ProHuntsville Memorial HospitalComment on above:Performed By: #### YELENA, 98773-5, 71019-3, PINR, CBCA #### [facility] ([id number]) [address] [place] [address] #### HA1C #### [facility] ([id number]) [address] [facility] [place], [place] [address]KTZDTLTCGRZDX METABOLIC PANELon 87-08-0321Nriejdd [Mass/Vol]3.8 g/dLNormal3.2-5.3[facility] HospitalComment on above:Performed By: #### YELENA, 16770-7, 47207-6, PINR, CBCA #### [facility] ([id number]) [address] [place] [address] #### HA1C #### [facility] ([id number]) [address], [address] [place], [place] [address]LTX [Catalytic activity/Vol]77 U/LSxjxfj17-906DgzYsoxvrHuntsville Memorial HospitalComment on above:Performed By: #### YELENA, 42347-9, 52453-8, PINR, CBCA #### [facility] ([id number]) [address] [place] [address] #### HA1C #### [facility] ([id number]) [address] [facility], [address] [place], [place] [address]ELD [Catalytic activity/Vol]37 U/LNormal0-40ProHuntsville Memorial HospitalComment on above:Performed By: #### YELENA, 20799-4, 57382-1, PINR, CBCA #### [facility] ([id number]) [address] [place] [address] #### HA1C #### [facility] ([id number]) [address] [place] [address], [address] [place], [place] [address]Euzvx gap [Moles/Vol]6 mmol/LNormal5-15ProHuntsville Memorial HospitalComment on above:Performed By: #### YELENA, 14984-4, 11737-4, PINR, CBCA #### [facility] ([id number]) [address] [place] [address] 15785 #### HA1C #### [facility] ([id number]) [address] [place] [address], [address] [place], [place] [address]VNE [Catalytic activity/Vol]30 U/LNormal0-41ProHuntsville Memorial HospitalComment on above:Performed By: #### YELENA, 55880-5, 17004-0, PINR, CBCA #### [facility] ([id number]) [address] [place] [address] 69959 #### HA1C #### [facility] ([id number]) [address] [place] [address], [address] [place], [place] [address]Afyfokixu [Mass/Vol]1.0 mg/dLNormal0.3-1.2ProMedica Good Samaritan HospitalComment on above:Performed By: #### YELENA, 45713-5, 17657-5, PINR, CBCA #### [facility] ([id number]) [address] [place] [address] 84606 #### HA1C #### [facility] ([id number]) [facility], [address] [place], [place] [address]Eqhcmdr [Mass/Vol]8.6 mg/dLNormal8.5-10.5PAvita Health System Bucyrus HospitalComment on above:Performed By: #### YELENA, 43576-0, 34513-6, PINR, CBCA #### [facility] ([id number]) [address] [place] [address] 09162 #### HA1C #### [facility] ([id number]) [address] [facility], [address] [place], [place] [address]Mqjqlchi [Moles/Vol]108 mmol/LVvlkpu74-166TeaYtbundHuntsville Memorial HospitalComment on above:Performed By: #### YELENA, 96745-8, 69151-0, PINR, CBCA #### [facility] ([id number]) [address] [place] [address] 91561 #### HA1C #### [facility] ([id number]) [address] [facility], [address] [place], [place] [address]DC7 [Moles/Vol]22 mmol/AQfawny24-74QwjTprtafAvita Health System Bucyrus Hospital Comment on above:Performed By: #### YELENA, 29247-5, 02963-8, PINR, CBCA #### [facility] ([id number]) [address] [place] [address] 48131 #### HA1C #### [facility] ([id number]) [address] [facility], [address] [place], [place] [address]Uchbcvndsm [Mass/Vol]1.82 mg/dLHigh0.70-1.20ProHuntsville Memorial HospitalComment on above:Result Comment: METHOD TRACEABLE TO IDMS STANDARD Performed By: #### YELENA, 66761-5, 10831-3, PINR, CBCA #### [facility] ([id number]) [address] [place] [address] 21371 #### HA1C #### [facility] ([id number]) [address], [address] [place], [place] [address]PQW/1.73 sq M.predicted among non-blacks MDRD (S/P/Bld) [Vol rate/Area]38 mL/min/{1.73_m2}Low>59ProHuntsville Memorial HospitalComment on above: Result Comment: Reported eGFR is based on the CKD-EPI 2020 equation that does not use a race coefficient.Performed By: #### YELENA, 68510-3, 26824-4, PINR, CBCA #### [facility] ([id number]) [address] [place] [address] 03799 #### HA1C #### [facility] ([id number]) [address], [address] [place], [place] [address]Idomwti [Mass/Vol]99 mg/jYQcjwmz88-75DxdQunjyiMedina Hospital Comment on above:Performed By: #### YELENA, 41212-9, 37711-1, PINR, CBCA #### [facility] ([id number]) [address] [place] [address] 22739 #### HA1C #### [facility] ([id number]) [address], [address] [place], [place] [address]Xxfoxikft [Moles/Vol]4.3 mmol/LNormal3.5-5.0ProHuntsville Memorial HospitalComment on above:Performed By: #### YELENA, 60198-0, 06515-4, PINR, CBCA #### [facility] ([id number]) [address] [place] [address] 64234 #### HA1C #### [facility] ([id number]) [address], [address] [place], [place] [address]Noioqcs [Mass/Vol]6.8 g/dLNormal6.0-8.0Medina HospitalComment on above:Performed By: #### YELENA, 62213-5, 28064-2, PINR, CBCA #### [facility] ([id number]) [address] [place] [address] 82287 #### HA1C #### [facility] ([id number]) [address] [facility], [address] [place], [place] [address]Mccffr [Moles/Vol]136 mmol/AXxlkft737-162TjkPytamp [facility]remont HospitalComment on above:Performed By: #### YELENA, 00353-5, 04041-7, PINR, CBCA #### [facility] ([id number]) [address] [place] [address] 85835 #### HA1C #### [facility] ([id number]) [address] [facility], [address] [place], [place] [address]Rkeq nitrogen [Mass/Vol]29 mg/dLHigh5-27ProHuntsville Memorial HospitalComment on above:Performed By: #### YELENA, 48768-5, 45168-5, PINR, CBCA #### [facility] ([id number]) [address] [place] [address] 37956 #### HA1C #### [facility] ([id number]) [address] [facility], [address] [place], [place] [address]Nolloyp Glucometer (BldC) [Mass/Vol]on 13-37-1947Gezhmde [Mass/Vol]101 mg/mJUuuf08-85MeyUrrwjrHuntsville Memorial HospitalMAGNESIUMon 09-14-2024 Magnesium [Mass/Vol]2.0 mg/dLNormal1.8-2.6ProHuntsville Memorial HospitalComment on above:Performed By: #### YELENA, 90215-2, 48815-4, PINR, CBCA #### [facility] ([id number]) [address] [place] [address] 32214 #### HA1C #### [facility] ([id number]) [address] [facility], [address] [place], [place] [address]VSJC/FLU A+B/RSV by NAAT/Molecularon 05-70-8178BXOG/FLU A+B/RSV by NAAT/MolecularFLU A PCR Negative (qualifier value) FLU B [...] operators who are performing tests using either [employer] or [employer] systems and is limited to laboratories that [...] specimen repeat. Fact Sheet for Healthcare Providers: https://www.fda.gov/media/105681/download Fact Sheet for Patients: https://www.fda.gov/media/679741/downloadNormalProMedica Good Samaritan HospitalComment on above:Performed By: #### YELENA, 20165-2, 56195-8, PINR, CBCA #### [facility] ([id number]) [address] [place] [address] 23578 #### HA1C #### [facility] ([id number]) [address], [address] [place], [place] [address]Lyavtypz I.cardiac High sensitivity method [Mass/Vol]on HOUR TROP I, HIGH SENSITIVITY4 ng/LNormal<21ProHuntsville Memorial HospitalComment on above:Performed By: #### YELENA, 82782-2, 56050-0, PINR, CBCA #### [facility] ([id number]) [address] [place] [address] 26221 #### HA1C #### [facility] ([id number]) [address] [facility], [address] [place], [place] [address]ODWJLYSU I, HIGH SENSITIVITY5 ng/LNormal<21ProHuntsville Memorial HospitalComment on above:Performed By: #### YELENA, 10881-6, 15289-2, PINR, CBCA #### [facility] ([id number]) [address] [place] [address] 07807 #### HA1C #### [facility] ([id number]) [address] [facility], [address] [place], [place] [address]IF LUMBAR SPINE WO CONTRASTon 28-40-1073ML LUMBAR SPINE WO CONTRASTTITLE OF EXAM: MR LUMBAR SPINE WO CONTRAST [...] soft tissues: Erector spinae atrophy/fatty replacement. There areseveral simple appearing central renal pelvic cysts. Degenerative [...] Mild to moderate bilateral neural foraminal stenosis. Nosignificant spinal canal narrowing. L4-5: Mild bilateral facet [...] electronically signed and approved by the interpreting radiologist.NormalNot AvailableMR THORACIC SPINE WO CONTRASTon 62-46-6112RI THORACIC SPINE WO CONTRASTTITLE OF EXAM: MR THORACIC SPINE WO CONTRAST [...] soft tissues: Erector spinae atrophy/fatty replacement. There areseveral simple appearing central renal pelvic cysts. Degenerative [...] Mild to moderate bilateral neural foraminal stenosis. Nosignificant spinal canal narrowing. L4-5: Mild bilateral facet [...] electronically signed and approved by the interpreting radiologist.NormalNot AvailableCBC AND AUTO DIFFon 61-28-1769FNEYDSIR BASOPHIL 0.0 X10E9/LNormal0.0-0.2ProMedica Good Samaritan HospitalComment on above:Performed By: #### BMP, 01163-9, 13559-2, PINLaura, RADHA #### [facility] ([id number]) [address] [place] [address] #### HA1C #### [facility] ([id number]) [address] [place] [address], [address] [place], [place] [address]ZRFJJHJW NEUTROPHIL5.7 X10E9/LNormal1.5-6.6ProHuntsville Memorial HospitalComment on above:Performed By: #### YELENA, 04894-5, 76829-4, PINR, CBCA #### [facility] ([id number]) [address] [place] [address] 68624 #### HA1C #### [facility] ([id number]) [address] [place] [address], [address] [address]Blzwrcbbv/100 WBC (Bld)0.4 %[facility] Comment on above:Performed By: #### YELENA, 09934-1, 79071-0, PINR, CBCA #### [facility] ([id number]) [address] [place] [address] 38256 #### HA1C #### [facility] ([id number]) [address] [place] [address], [address] [place] [address]Wasqcpmzdbq (Bld) [#/Vol]0.2 10*3/uLNormal0.0-0.4Medina HospitalComment on above:Performed By: #### YELENA, 33844-4, 57540-3, PINR, CBCA #### [facility] ([id number]) [address] [place] [address] 22432 #### HA1C #### [facility] ([id number]) [address] [place] [address], [address] [place], [place] [address]Evhcypvtozb/100 WBC (Bld)2.1 %[facility] Comment on above:Performed By: #### YELENA, 61160-3, 56515-1, PINR, CBCA #### [facility] ([id number]) [address] [place] [address] 86013 #### HA1C #### [facility] ([id number]) [address], [address] [place], [place] [address]Dspsnewkijj distribution width (RBC) [Ratio]14.6 %Normal 11.5-15.0Medina HospitalComment on above:Performed By: #### YELENA, 51239-5, 41711-3, PINR, CBCA #### [facility] ([id number]) [address] [place] [address] 88998 #### HA1C #### [facility] ([id number]) [address], [address] [place], [place] [address]Safrrlvtqf (Bld) [Volume fraction]40.5 %Yqucca79-71DtcRgbwzeHuntsville Memorial HospitalComment on above:Performed By: #### YELENA, 69293-1, 36908-1, PINR, CBCA #### [facility] ([id number]) [address] [place] [address] 07040 #### HA1C #### [facility] ([id number]) [address], [address] [place], [place] [address]Rvuajyqbea (Bld) [Mass/Vol]13.5 g/pWQeiymz30.0-17.0ProHuntsville Memorial HospitalComment on above:Performed By: #### YELENA, 73368-5, 11239-9, PINR, CBCA #### [facility] ([id number]) [address] [place] [address] 48581 #### HA1C #### [facility] ([id number]) [address], [address] [place], [place] [address]Aeelesjrxfa (Bld) [#/Vol]1.9 10*3/uLNormal1.0-3.5ProMedica Good Samaritan HospitalComment on above:Performed By: #### YELENA, 06849-8, 61654-1, PINR, CBCA #### [facility] ([id number]) [address] [place] [address] 94044 #### HA1C #### [facility] ([id number]) [address] [facility], [address] [place], [place] [address]Iubiymzpvwa/100 WBC (Bld)22.0 %NormalMedina Hospital Comment on above:Performed By: #### YELENA, 89785-9, 17967-2, PINR, CBCA #### [facility] ([id number]) [address] [place] [address] 87317 #### HA1C #### [facility] ([id number]) [address] [facility], [address] [place], [place] [address]MOP (RBC) [Entitic mass]29.8 nfIrpmte13-15QteBvowaoMedina HospitalComment on above:Performed By: #### YELENA, 54165-5, 27227-8, PINR, CBCA #### [facility] ([id number]) [address] [place] [address] 69493 #### HA1C #### [facility] ([id number]) [address] [facility], [address] [place], [place] [address]KUZC (RBC) [Mass/Vol]33.5 g/yNNakdvu67-54DiaJwfontMedina HospitalComment on above:Performed By: #### YELENA, 17592-2, 34229-3, PINR, CBCA #### [facility] ([id number]) [address] [place] [address] 61052 #### HA1C #### [facility] ([id number]) [address] [facility], [address] [place], [place] [address]RFL (RBC) [Entitic vol]89 fGNsqgok76-814JcfKsdqqg [facility] HospitalComment on above:Performed By: #### YELENA, 22167-6, 53237-5, PINR, CBCA #### [facility] ([id number]) [address] [place] [address] 52340 #### HA1C #### [facility] ([id number]) [address], [address] [place], [place] [address]Zjdwssumn (Bld) [#/Vol]0.8 10*3/uLNormal0-0.9ProHuntsville Memorial HospitalComment on above:Performed By: #### YELENA, 84977-3, 25634-9, PINR, CBCA #### [facility] ([id number]) [address] [place] [address] 98938 #### HA1C #### [facility] ([id number]) [address] [facility], [address] [place], [place] [address]Qrofdmjbl/100 WBC (Bld)9.4 %NormalMedina Hospital Comment on above:Performed By: #### YELENA, 37688-4, 23815-7, PINR, CBCA #### [facility] ([id number]) [address] [place] [address] 48568 #### HA1C #### [facility] ([id number]) [address] [facility], [address] [place], [place] [address]Sbhphidtvbw/100 WBC (Bld)66.1 %NormalMedina Hospital Comment on above:Performed By: #### YELENA, 09691-6, 17872-0, PINR, CBCA #### [facility] ([id number]) [address] [place] [address] 73544 #### HA1C #### [facility] ([id number]) [address], [address] [place], [place] [address]Eubklgpi mean volume (Bld) [Entitic vol]8.0 fLNormal7-12 ProMDoctors Hospital of MantecaComment on above:Performed By: #### YELENA, 06726-7, 92456-3, PINR, CBCA #### [facility] ([id number]) [address] [place] [address] 38110 #### HA1C #### [facility] ([id number]) [address] [facility], [address] [place], [place] [address]Nzopomwhw (Bld) [#/Vol]158 10*3/cKNqsiwq548-166UrtZxqwff [facility] HospitalComment on above:Performed By: #### YELENA, 00297-6, 45430-1, PINR, CBCA #### [facility] ([id number]) [address] [place] [address] 60129 #### HA1C #### [facility] ([id number]) [address], [address] [place], [place] [address]VLM COUNT4.55 X10E12/LNormal4.10-5.70[facility] Comment on above:Performed By: #### YELENA, 65573-7, 45491-3, PINR, CBCA #### [facility] ([id number]) [address] [place] [address] 42536 #### HA1C #### [facility] ([id number]) [address], [address] [place], [place] [address]UVT (Bld) [#/Vol]8.7 10*3/uLNormal4.0-11.0Medina HospitalComment on above:Performed By: #### YELENA, 44429-9, 57834-2, PINR, CBCA #### [facility] ([id number]) [address] [place] [address] 10818 #### HA1C #### [facility] ([id number]) [address], [address] [place], [place] [address]NOD AND AUTO DIFFon 54-69-1083SYMKYVUV BASOPHIL0.0 X10E9/LNormal 0.0-0.2ProMedSutter Coast HospitalComment on above:Performed By: #### YELENA, 25968- 7, 41537-4, PINR, CBCA #### [facility] ([id number]) [address] [place] [address] 99377 #### HA1C #### [facility] ([id number]) [address] [facility], [address] [place], [place] [address]QSUZBPSO NEUTROPHIL7.5 X10E9/LHigh1.5-6.6ProHuntsville Memorial HospitalComment on above:Performed By: #### YELENA, 43922-2, 50282-0, PINR, CBCA #### [facility] ([id number]) [address] [place] [address] 03412 #### HA1C #### [facility] ([id number]) [address] [facility], [address] [place], [place] [address]Jdchgzzob/100 WBC (Bld)0.3 %NormalProHuntsville Memorial Hospital Comment on above:Performed By: #### YELENA, 19136-2, 22561-1, PINR, CBCA #### [facility] ([id number]) [address] [place] [address] 51010 #### HA1C #### [facility] ([id number]) [address] [facility], [address] [place], [place] [address]Ogulapjphwa (Bld) [#/Vol]0.2 10*3/uLNormal0.0-0.4ProHuntsville Memorial HospitalComment on above:Performed By: #### YELENA, 54609-6, 80265-4, PINR, CBCA #### [facility] ([id number]) [address] [place] [address] 55540 #### HA1C #### [facility] ([id number]) [address], [address] [place], [place] [address]Eckxrdbojsc/100 WBC (Bld)1.5 %NormalProHuntsville Memorial Hospital Comment on above:Performed By: #### YELENA, 70316-6, 07830-0, PINR, CBCA #### [facility] ([id number]) [address] [place] [address] 38968 #### HA1C #### [facility] ([id number]) [address], [address] [place], [place] [address]Ulrxyiunbbc distribution width (RBC) [Ratio]14.7 %Normal 11.5-15.0ProHuntsville Memorial HospitalComment on above:Performed By: #### YELENA, 79077-8, 66271-5, PINR, CBCA #### [facility] ([id number]) [address] [place] [address] 00712 #### HA1C #### [facility] ([id number]) [address], [address] [place], [place] [address]Dxohwhqxbx (Bld) [Volume fraction]41.8 %Mewdss29-27IzfXzrrumHuntsville Memorial HospitalComment on above:Performed By: #### YELENA, 47274-6, 37908-4, PINR, CBCA #### [facility] ([id number]) [address] [place] [address] 96541 #### HA1C #### [facility] ([id number]) [address], [address] [place], [place] [address]Vbxgyhaply (Bld) [Mass/Vol]13.9 g/qHGzukqu22.0-17.0ProHuntsville Memorial HospitalComment on above:Performed By: #### YELENA, 33589-9, 92162-9, PINR, CBCA #### [facility] ([id number]) [address] [place] [address] 78046 #### HA1C #### [facility] ([id number]) [address], [address] [place], [place] [address]Iyffrjamkxm (Bld) [#/Vol]1.5 10*3/uLNormal1.0-3.5ProMedica Good Samaritan HospitalComment on above:Performed By: #### YELENA, 10948-9, 68300-0, PINR, CBCA #### [facility] ([id number]) [address] [place] [address] 27312 #### HA1C #### [facility] ([id number]) [address], [address] [place], [place] [address]Nilxcfjbshq/100 WBC (Bld)14.7 %NormalMedina Hospital Comment on above:Performed By: #### YELENA, 22486-9, 60018-6, PINR, CBCA #### [facility] ([id number]) [address] [place] [address] 93754 #### HA1C #### [facility] ([id number]) [address], [address] [place], [place] [address]DXB (RBC) [Entitic mass]29.5 yoQmifln82-34JmlIoezrmHuntsville Memorial HospitalComment on above:Performed By: #### YELENA, 92628-5, 39967-5, PINR, CBCA #### [facility] ([id number]) [address] [place] [address] 54347 #### HA1C #### [facility] ([id number]) [address], [address] [place], [place] [address]QPJY (RBC) [Mass/Vol]33.2 g/cGGcgflx25-21VbxEjlbkhMedina HospitalComment on above:Performed By: #### YELENA, 49014-3, 34542-6, PINR, CBCA #### [facility] ([id number]) [address] [place] [address] 67864 #### HA1C #### [facility] ([id number]) [address] [facility], [address] [place], [place] [address]DNU (RBC) [Entitic vol]89 dERoqdez24-712OipZdkspf [facility] HospitalComment on above:Performed By: #### YELENA, 52752-6, 73449-5, PINR, CBCA #### [facility] ([id number]) [address] [place] [address] 15534 #### HA1C #### [facility] ([id number]) [address] [facility], [address] [place], [place] [address]Cxvntrthi (Bld) [#/Vol]0.9 10*3/uLNormal0-0.9Medina HospitalComment on above:Performed By: #### YELENA, 37770-6, 31945-2, PINR, CBCA #### [facility] ([id number]) [address] [place] [address] #### HA1C #### [facility] ([id number]) [address] [facility], [address] [place], [place] [address]Cseuftnlh/100 WBC (Bld)9.2 %NormalProHuntsville Memorial Hospital Comment on above:Performed By: #### YELENA, 65377-8, 47805-0, PINR, CBCA #### [facility] ([id number]) [address] [place] [address] #### HA1C #### [facility] ([id number]) [address], [address] [place], [place] [address]Xhoerarzsjm/100 WBC (Bld)74.3 %NormalMedina Hospital Comment on above:Performed By: #### YELENA, 54020-1, 18423-8, PINR, CBCA #### [facility] ([id number]) [address] [place] [address] #### HA1C #### [facility] ([id number]) [address], [address] [place], [place] [address]Icalkjtl mean volume (Bld) [Entitic vol]7.8 fLNormal7-12 [facility] HospitalComment on above:Performed By: #### YELENA, 33876-5, 72828-4, PINR, CBCA #### [facility] ([id number]) [address] [place] [address] #### HA1C #### [facility] ([id number]) [address], [address] [place], [place] [address]Jzouslkhf (Bld) [#/Vol]154 10*3/tDSojhrv270-038FztPopolt Fremont HospitalComment on above:Performed By: #### YELENA, 46240-9, 18180-1, PINR, CBCA #### [facility] ([id number]) [address] [place] [address] #### HA1C #### [facility] ([id number]) [address], [address] [place], [place] [address]LZK COUNT4.70 X10E12/LNormal4.10-5.70[facility] Comment on above:Performed By: #### YELENA, 76929-6, 40356-6, PINR, CBCA #### [facility] ([id number]) [address] [place] [address] #### HA1C #### [facility] ([id number]) [address], [address] [place], [place] [address]AMA (Bld) [#/Vol]10.1 10*3/uLNormal4.0-11.0[facility] Centerment on above:Performed By: #### YELENA, 11611-0, 69468-8, PINR, CBCA #### [facility] ([id number]) [address] [place] [address] #### HA1C #### [facility] ([id number]) [address] [facility], [address] [place], [place] [address]Wslngt [Mass/Vol]on 81-44-9543RHCML ACID9.5 ng/mLNormal>5.8 [facility]Com[facility] on above:Result Comment: NEW REFERENCE RANGE Performed By: #### YELENA, 10794-5, 85273-3, PINR, CBCA #### [facility] ([id number]) [address] [place] [address] #### HA1C #### [facility] ([id number]) [address] [place] [address], [address] [place], [place] [address]Oifxc metals panel (Bld)on [id number], B<1Normal<13 [facility] on above:Result Comment: NOTE ADDITIONAL INFORMATION This test was developed and its performance characteristics determined by [facility] in a manner consistent with CLIA requirements. This test has not been cleared or approved by the U.S. Food and Drug Administration.Performed By: #### YELENA, 42616-7, 13559-7, PINR, CBCA #### [facility] ([id number]) [address] [place] [address] #### HA1C #### [facility] ([id number]) [address], [address] [place], [place] [address]Tblhjsq, B0.6 ng/mLNormal<5.0ProHuntsville Memorial HospitalComment on above:Result Comment: NOTE ADDITIONAL INFORMATION This test was developed and its performance characteristics determined by [facility] in a manner consistent with CLIA requirements. This test has not been cleared or approved by the U.S. Food and Drug Administration.Performed By: ###Namita KIRK, 95736-0, 49179-7, RADHA HAWKINS #### [facility] ([id number]) [address] [place] [address] #### DEVONTE #### [facility] ([id number]) [address] [facility] [facility] [place], [place] [address]Avyr, B4.5 mcg/dLHigh<3.5ProMedSutter Coast HospitalComment on above:Result Comment: NOTE ADDITIONAL INFORMATION Testing performed by Triple Quadrupole Inductively Coupled Plasma-Mass Spectrometry (ICP-MS/MS). This test was developed and its performance characteristics determined by [facility] in a manner consistent with CLIA requirements. This test has not been cleared or approved by the U.S. Food and Drug Administration.Performed By: #### YELENA, 32176-8, 50945-1, RADHA HAWKINS #### [facility] ([id number]) [address] [place] [address] 38151 #### HA1C #### [facility] ([id number]) [address], [address] [place], [place] [address]Gzyrycn, B<1Normal<10ProHuntsville Memorial HospitalComment on above: Result Comment: NOTE ADDITIONAL INFORMATION This test was developed and its performance characteristics determined by [facility] in a manner consistent with CLIA requirements. This test has not been cleared or approved by the U.S. Food and Drug Administration.Performed By: #### YELENA, 67192-0, 75107-0, PINR, CBCA #### [facility] ([id number]) [address] [place] [address] 79874 #### HA1C #### [facility] ([id number]) [address] [place] [address], [address] [place], [place] [address]Shrllp/CapillaryVenousNormalProHuntsville Memorial HospitalComment on above:Performed By: #### YELENA, 26570-1, 03041-9, PINR, CBCA #### [facility] ([id number]) [address] [place] [address] 24689 #### HA1C #### [facility] ([id number]) [address] [place] [address], [address] [place], [place] [address]Kkkkx 1995 panelon 88-13-7499Zvgdakbrxmi [Mass/Vol]112 mg/dLLow 150-200ProHuntsville Memorial HospitalComment on above:Performed By: #### YELENA, 54603- 7, 79041-7, PINR, CBCA #### [facility] ([id number]) [address] [place] [address] 58989 #### HA1C #### [facility] ([id number]) [address] [place] [address], [address] [place], [place] [address]Yhvxqmpyfhi in HDL [Mass/Vol]46 mg/dLNormal>39ProHuntsville Memorial HospitalComment on above:Result Comment: HDL <40 mg/dL - High Risk HDL > or = 40mg/dL- Desirable HDL >60 mg/dL - Negative Risk Performed By: #### YELENA, 76269-5, 01837-0, PINR, CBCA #### [facility] ([id number]) [address] [place] [address] 21866 #### HA1C #### [facility] ([id number]) [address], [address] [place], [place] [address]Cshwgnpfbdb in LDL [Mass/Vol]51 mg/dLNormal<130ProHuntsville Memorial HospitalComment on above:Result Comment: LDL <100 mg/dL - Desirable LDL >160 mg/dL - High Risk Performed By: #### YELENA, 17786-6, 31861-5, PINR, CBCA #### [facility] ([id number]) [address] [place] [address] 46128 #### SALOME1C #### [facility] ([id number]) [address], [address] [place], [place] [address]Epevpgqjjui in VLDL [Mass/Vol]15 mg/dLNormal0-30ProHuntsville Memorial HospitalComment on above:Performed By: ###Namita KIRK, 01863-1, 21473-7, PINR, CBCA #### [facility] ([id number]) [address] [place] [address] 98825 #### SALOME1C #### [facility] ([id number]) [address], [address] [place], [place] [address]UWFQGRGXYTD:HDL2.4Jbymih3.0-5.0ProHuntsville Memorial HospitalComment on above:Performed By: #### YELENA, 51725-6, 20862-9, PINR, CBCA #### [facility] ([id number]) [address] [place] [address] #### HA1C #### [facility] ([id number]) [address], [address] [place], [place] [address]Akeuoxahtntq [Mass/Vol]74 mg/vNLsbvey62-208RgfFtedqx [facility] Samaritan HospitalComment on above:Performed By: #### YELENA, 13837-5, 26814-3, PINR, CBCA #### [facility] ([id number]) [address] [place] [address] 34184 #### HA1C #### [facility] ([id number]) [address], [address] [place], [place] [address]WL BRAIN WO CONTon 09-89-2422JV BRAIN WO CONTMR BRAIN WO CONT HISTORY: A 78-year-old male [...] supratentorially consistent with small vessels ischemic change. Diffusion- weighted study demonstrates no evidence of restricted diffusion [...] by Saul Hurst MD on 08/11/2024 10:04 AMNormalProOdessa Regional Medical CenterERUM PROTEIN ELECTROPHORESISon 05-24-1527Jmpxmdu [Mass/Vol]3.7 g/dL Normal3.4-5.3PAvita Health System Bucyrus HospitalComment on above:Performed By: #### YELENA, 77484-0, 37482-1, PINR, CBCA #### [facility] ([id number]) [address] [place] [address] 79887 #### HA1C #### [facility] ([id number]) [address] [facility], [address] [place], [place] [address]LXFGJ 1 GLOBULIN0.3 g/dLNormal0.1-0.4[facility] Comment on above:Performed By: #### YELENA, 95506-3, 86330-9, PINR, CBCA #### [facility] ([id number]) [address] [place] [address] 30014 #### HA1C #### [facility] ([id number]) [address] [facility], [address] [place], [place] [address]HQGPS 2 GLOBULIN0.8 g/dLNormal0.4-1.1PAv[facility] Comment on above:Performed By: #### YELENA, 88125-7, 00094-0, PINR, CBCA #### [facility] ([id number]) [address] [place] [address] 65535 #### HA1C #### [facility] ([id number]) [address] [facility], [address] [place], [place] [address]GJXL GLOBULIN0.9 g/dLNormal0.5-1.2PA[facility] Comment on above:Performed By: #### YELENA, 90565-8, 40496-6, PINR, CBCA #### [facility] ([id number]) [address] [place] [address] 81350 #### HA1C #### [facility] ([id number]) [address] [place] [address], [address] [place], [place] [address]SFSJS GLOBULIN0.8 g/dLNormal0.5-1.6[facility] Comment on above:Performed By: #### YELENA, 15077-7, 38647-7, PINR, CBCA #### [facility] ([id number]) [address] [place] [address] 38236 #### HA1C #### [facility] ([id number]) [address] [place] [address], [address] [place], [place] [address]YMCW. ELECTROPHORESIS INTERPUnremarkable protein distribution, no monoclonal bands.NormalProHuntsville Memorial HospitalComment on above:Performed By: #### YELENA, 66032-5, 88480-4, PINR, CBCA #### [facility] ([id number]) [address] [place] [address] 59942 #### HA1C #### [facility] ([id number]) [address] [place] [address], [address] [place] [address]Qkacxar [Mass/Vol]6.5 g/dLNormal6.0-8.0ProHuntsville Memorial HospitalComment on above:Performed By: #### YELENA, 03539-3, 41127-0, PINR, CBCA #### [facility] ([id number]) [address] [place] [address] 75059 #### HA1C #### [facility] ([id number]) [address] [place] [address], [address] [place] [address]Xkdmpwpp I.cardiac High sensitivity method [Mass/Vol]on HOUR TROP I, HIGH SENSITIVITY5 ng/LNormal<21ProHuntsville Memorial HospitalComment on above:Performed By: #### YELENA, 26494-6, 13884-8, PINR, CBCA #### [facility] ([id number]) [address] [place] [address] 71648 #### HA1C #### [facility] ([id number]) [address] [facility], [address] [place], [place] [address]QJUMPZYR I, HIGH SENSITIVITY5 ng/LNormal<21ProHuntsville Memorial HospitalComment on above:Performed By: #### YELENA, 29685-6, 56153-3, PINR, CBCA #### [facility] ([id number]) [address] [place] [address] 53515 #### HA1C #### [facility] ([id number]) [address] [facility], [address] [place], [place] [address]EOHMHRU B12on 55-21-8180Bueoyjcpp (Vitamin B12) [Mass/Vol]202 pg/cUYgakup943-401SstWbkftxAvita Health System Bucyrus HospitalComment on above:Performed By: #### YELENA, 06843-0, 28482-9, PINR, CBCA #### [facility] ([id number]) [address] [place] [address] 27078 #### HALory #### [facility] ([id number]) [address] [facility], [address] [place], [place] [address]UGOAK METABOLIC PANLon 21-67-7664Daqmg gap [Moles/Vol]9 mmol/L Normal5-15ProHuntsville Memorial HospitalComment on above:Performed By: #### YELENA, 79451-7, 15593-1, PINR, CBCA #### [facility] ([id number]) [address] [place] [address] 54471 #### HALory #### [facility] ([id number]) [address] [facility], [address] [place], [place] [address]Tczfcsf [Mass/Vol]8.4 mg/dLLow8.5-10.5[facility] Comment on above:Performed By: #### YELENA, 13109-6, 38865-7, PINR, CBCA #### [facility] ([id number]) [address] [place] [address] 01474 #### HA1C #### [facility] ([id number]) [address], [address] [place], [place] [address]Ixlaiyxt [Moles/Vol]104 mmol/JFoknzp76-840XiwLhwlixHuntsville Memorial HospitalComment on above:Performed By: #### YELENA, 35237-5, 52423-9, PINLaura, CBCA #### [facility] ([id number]) [address] [place] [address] 39749 #### HA1C #### [facility] ([id number]) [address] [facility], [address] [place], [place] [address]YX6 [Moles/Vol]24 mmol/SCmdgpx68-54OpjVzryjhAvita Health System Bucyrus Hospital Comment on above:Performed By: #### YELENA, 00503-3, 64646-9, PINR, CBCA #### [facility] ([id number]) [address] [place] [address] 56811 #### HA1C #### [facility] ([id number]) [address] [facility], [address] [place], [place] [address]Ljclqouhvm [Mass/Vol]1.40 mg/dLHigh0.70-1.20Medina HospitalComment on above:Result Comment: METHOD TRACEABLE TO IDMS STANDARD Performed By: #### YELENA, 64879-9, 07014-2, PINR, CBCA #### [facility] ([id number]) [address] [place] [address] 47905 #### HA1C #### [facility] ([id number]) [address] [facility], [address] [place], [place] [address]OSP/1.73 sq M.predicted among non-blacks MDRD (S/P/Bld) [Vol rate/Area]52 mL/min/{1.73_m2}Low>59ProHuntsville Memorial HospitalComment on above: Result Comment: Reported eGFR is based on the CKD-EPI 2020 equation that does not use a race coefficient.Performed By: #### YLEENA, 46658-2, 07084-1, PINR, CBCA #### [facility] ([id number]) [address] [place] [address] 16310 #### HA1C #### [facility] ([id number]) [address] [place] [address], [address] [place], [place] [address]Ldxoqey [Mass/Vol]103 mg/kSPtjy80-40DriXjjeljHuntsville Memorial Hospital Comment on above:Performed By: #### YELENA, 84453-8, 71259-3, PINR, CBCA #### [facility] ([id number]) [address] [place] [address] 79428 #### HA1C #### [facility] ([id number]) [address] [place] [address], [address] [place], [place] [address]Laevcgrpi [Moles/Vol]4.3 mmol/LNormal3.5-5.0ProHuntsville Memorial HospitalComment on above:Performed By: #### YELENA, 27019-9, 26253-5, PINR, CBCA #### [facility] ([id number]) [address] [place] [address] 59425 #### HA1C #### [facility] ([id number]) [address] [place] [address], [address] [place], [place] [address]Btocul [Moles/Vol]137 mmol/HLaaosu982-058TlwBnmmdn [facility] HospitalComment on above:Performed By: #### YELENA, 59248-9, 52882-0, PINR, CBCA #### [facility] ([id number]) [address] [place] [address] 23855 #### HA1C #### [facility] ([id number]) [address], [address] [place], [place] [address]Kfvx nitrogen [Mass/Vol]19 mg/dLNormal5-27ProHuntsville Memorial HospitalComment on above:Performed By: #### YELENA, 08546-0, 60285-0, PINR, CBCA #### [facility] ([id number]) [address] [place] [address] 85123 #### HA1C #### [facility] ([id number]) [address], [address] [place], [place] [address]GPX AND AUTO DIFFon 88-73-2029FKNAGOYP BASOPHIL0.1 X10E9/LNormal 0.0-0.2ProMedica [facility] Samaritan HospitalComment on above:Performed By: #### YELENA, 28888- 7, 68778-0, PINR, CBCA #### [facility] ([id number]) [address] [place] [address] 89363 #### HALory #### [facility] ([id number]) [address] [facility], [address] [place], [place] [address]TSBCXHGH NEUTROPHIL8.2 X10E9/LHigh1.5-6.6ProHuntsville Memorial HospitalComment on above:Performed By: #### YELENA, 06151-2, 55373-5, PINR, CBCA #### [facility] ([id number]) [address] [place] [address] 92818 #### HA1C #### [facility] ([id number]) [address], [address] [place], [place] [address]Xycvrllek/100 WBC (Bld)0.5 %NormalProHuntsville Memorial Hospital Comment on above:Performed By: #### YELENA, 66564-6, 21009-1, PINR, CBCA #### [facility] ([id number]) [address] [place] [address] 51411 #### HA1C #### [facility] ([id number]) [address], [address] [place], [place] [address]Mdkpoisejts (Bld) [#/Vol]0.1 10*3/uLNormal0.0-0.4ProHuntsville Memorial HospitalComment on above:Performed By: #### YELENA, 18829-3, 31055-9, PINR, CBCA #### [facility] ([id number]) [address] [place] [address] 96058 #### HA1C #### [facility] ([id number]) [address], [address] [place], [place] [address]Edkmrenukeq/100 WBC (Bld)1.3 %NormalProHuntsville Memorial Hospital Comment on above:Performed By: #### YELENA, 52138-4, 42705-7, PINR, CBCA #### [facility] ([id number]) [address] [place] [address] 33196 #### HA1C #### [facility] ([id number]) [address], [address] [place], [place] [address]Abtntotgswx distribution width (RBC) [Ratio]14.9 %Normal 11.5-15.0ProHuntsville Memorial HospitalComment on above:Performed By: #### YELENA, 55126-1, 31611-9, PINR, CBCA #### [facility] ([id number]) [address] [place] [address] 81986 #### HA1C #### [facility] ([id number]) [address], [address] [place], [place] [address]Qghxvoiqxu (Bld) [Volume fraction]41.2 %Ickesl94-52TwsRjziqgHuntsville Memorial HospitalComment on above:Performed By: #### YELENA, 78832-6, 41981-6, PINR, CBCA #### [facility] ([id number]) [address] [place] [address] 05741 #### DEVONTE #### [facility] ([id number]) [address], [address] [place], [place] [address]Jpchgoioof (Bld) [Mass/Vol]13.8 g/jGGfkfyp58.0-17.0ProHuntsville Memorial HospitalComment on above:Performed By: #### YELENA, 84629-4, 81075-9, PINR, CBCA #### [facility] ([id number]) [address] [place] [address] 93208 #### HALory #### [facility] ([id number]) [address] [facility], [address] [place], [place] [address]Etvylwyvpaz (Bld) [#/Vol]1.5 10*3/uLNormal1.0-3.5ProMedica Good Samaritan HospitalComment on above:Performed By: #### YELENA, 94098-8, 12490-9, PINR, CBCA #### [facility] ([id number]) [address] [place] [address] 88133 #### HA1C #### [facility] ([id number]) [address] [facility], [address] [place], [place] [address]Rxgjzfnglzh/100 WBC (Bld)14.0 %NormalProHuntsville Memorial Hospital Comment on above:Performed By: #### YELENA, 11228-8, 35203-8, PINR, CBCA #### [facility] ([id number]) [address] [place] [address] 80307 #### HALory #### [facility] ([id number]) [address], [address] [place], [place] [address]TVI (RBC) [Entitic mass]29.8 ylUggrka86-90BgcStxihmHuntsville Memorial HospitalComment on above:Performed By: #### YELENA, 53538-4, 23566-9, PINR, CBCA #### [facility] ([id number]) [address] [place] [address] 10665 #### HA1C #### [facility] ([id number]) [address] [facility], [address] [place], [place] [address]ELIV (RBC) [Mass/Vol]33.6 g/fXDfbjci75-12EjsLhneelHuntsville Memorial HospitalComment on above:Performed By: #### YELENA, 38991-7, 11740-5, PINR, CBCA #### [facility] ([id number]) [address] [place] [address] 72850 #### HA1C #### [facility] ([id number]) [address] [facility], [address] [place], [place] [address]RDH (RBC) [Entitic vol]89 qDMdupye32-922FfrWkjlhk [facility] HospitalComment on above:Performed By: #### YELENA, 54291-0, 50853-3, PINR, CBCA #### [facility] ([id number]) [address] [place] [address] 27144 #### HA1C #### [facility] ([id number]) [address], [address] [place], [place] [address]Gpanldrew (Bld) [#/Vol]0.9 10*3/uLNormal0-0.9ProHuntsville Memorial HospitalComment on above:Performed By: #### YELENA, 52416-0, 67666-4, PINR, CBCA #### [facility] ([id number]) [address] [place] [address] 63811 #### HA1C #### [facility] ([id number]) [address], [address] [place], [place] [address]Adovpmnny/100 WBC (Bld)8.0 %[facility] Comment on above:Performed By: #### YELENA, 54491-0, 28961-9, PINR, CBCA #### [facility] ([id number]) [address] [place] [address] 57091 #### HA1C #### [facility] ([id number]) [address] [facility], [address] [place], [place] [address]Cdpbmgrzjld/100 WBC (Bld)76.2 %[facility] Comment on above:Performed By: #### YELENA, 65580-2, 66820-0, PINR, CBCA #### [facility] ([id number]) [address] [place] [address] 08040 #### HA1C #### [facility] ([id number]) [address] [facility], [address] [place], [place] [address]Etqndnfr mean volume (Bld) [Entitic vol]8.1 fLNormal7-12 [facility]ar[facility] HospitalComment on above:Performed By: #### YELENA, 94195-2, 18157-6, PINR, CBCA #### [facility] ([id number]) [address] [place] [address] 21561 #### HA1C #### [facility] ([id number]) [address], [address] [place], [place] [address]Ajkihaerr (Bld) [#/Vol]150 10*3/cAPxcwcj750-261RkiDmhfjxMedina HospitalComment on above:Performed By: #### YELENA, 20451-4, 24894-8, PINR, CBCA #### [facility] ([id number]) [address] [place] [address] #### HA1C #### [facility] ([id number]) [address], [address] [place] [address]QYJ COUNT4.64 X10E12/LNormal4.10-5.70[facility] Comment on above:Performed By: #### YELENA, 34432-5, 03282-9, PINR, CBCA #### [facility] ([id number]) [address] [place] [address] 40602 #### HA1C #### [facility] ([id number]) [address] [facility], [address] [place] [address]QPZ (Bld) [#/Vol]10.8 10*3/uLNormal4.0-11.0Medina HospitalComment on above:Performed By: #### YELENA, 51115-5, 84727-7, PINR, CBCA #### [facility] ([id number]) [address] [place] [address] 47727 #### HA1C #### [facility] ([id number]) [address] [place] [address], [address] [place] [address] 19173WU BRAIN WO CONT STROKE ALERTon 74-86-4273HK BRAIN WO CONT STROKE ALERTCT BRAIN WO CONT STROKE ALERT STUDY: CT [...] by Francis Porras MD on 08/10/2024 11:23 AMNormalGalion Community Hospitalca Good Samaritan HospitalCT CTA CAROTIDon 65-73-6325RY CTA CAROTIDCT CTA CAROTID Examination: CTA carotids Clinical History: Neuro deficit, acute, stroke suspected Comparison: None CT CTA CAROTID Procedure: Multidetector CT angiogram performed through the cervical portion of the carotid arteries without complication, including source images and maximum intensity projection 3-D images displayed and reviewed on an independent PACS workstation by the radiologist. Automated exposure control was utilized. The [place] Symptomatic Carotid Endarterectomy Trial (NASCET)calculation of ICA [...] by Francis Porras MD on 08/10/2024 11:38 [facility]CT [facility] HEADon 37-71-4716ZH CTA HEADCT CTA HEAD STUDY: CT CTA HEAD INDICATION: [...] sinuses. IMPRESSION: * Unremarkable CTA of the nulato of [place]. No high grade arterial stenosis, large vessel occlusionor aneurysm, within confines of venous contamination. * MRI is the most sensitive to assess for ischemic changes if clinically warranted. Finalized by Jesse Kraus on 08/10/2024 11:42 [facility] HospitalGlucose Glucometer (BldC) [Mass/Vol]on [id number] [Mass/Vol]87 mg/nRYdslby37-74IunIvsfgkMedina HospitalHGB A1C (GLYCO-HGB)on 08-10-2024 Glucose [Mass/Vol]105 mg/dLNoWright-Patterson Medical CenterComment on above: Performed By: #### BMP, 89350-7, 24765-6, RADHA HAWKINS #### [facility] ([id number]) [address] [place] [address], [place] [address] #### HA1C #### [facility] ([id number]) [address] [place] [address], [address] [place], [place] [address]YcU8p (Bld) [Mass fraction]5.3 %Normal4.4-5.6Medina HospitalComment on above:Result Comment: NOTE ADA Guidelines Result HgbA1c Normal : less than 5.7 % Prediabetes : 5.7 % to 6.4 % Diabetes : > 6.4 % Use with caution in patients with abnormal hemoglobin variants as the half-life of red blood cells and in vivo glycation rates are affected.Performed By: #### YELENA, 12180-6, 80159-9, PINLaura CBCA #### [facility] ([id number]) [address] [place] [address] #### HA1C #### [facility] ([id number]) [address] [place] [address], [address] [place], [place] [address]OFIZGRJ AND INRon [id number] Coag (PPP) [Relative time]1.1 {INR}Normal0.8-1.1PAvita Health System Bucyrus HospitalComment on above:Performed By: #### YELENA, 78658-6, 23073-7, PINR, CBCA #### [facility] ([id number]) [address] [place] [address] #### HA1C #### [facility] ([id number]) [address] [place] [address], [address] [place], [place] [address]XL Coag (PPP) [Time]12.6 sNormal9.8-13.2PAvita Health System Bucyrus HospitalComment on above:Result Comment: NEW REFERENCE RANGEPerformed By: #### YELENA, 11470-0, 98057-3, PINR, CBCA #### [facility] ([id number]) [address] [place] [address] #### HA1C #### [facility] ([id number]) [address] [facility], [address] [place], [place] [address]Qxregtjc I.cardiac High sensitivity method [Mass/Vol]on HOUR TROP I, HIGH SENSITIVITY4 ng/LNormal<21ProHuntsville Memorial HospitalComment on above:Performed By: #### BMP, 63755-4, 32716-0, PINR, CBCA #### [facility] ([id number]) [address] [place] [address] #### HA1C #### [facility] ([id number]) [address] [place] [address], [address] [place], [place] [address]HFJRFUTM I, HIGH SENSITIVITY4 ng/LNormal<21ProHuntsville Memorial HospitalComment on above:Performed By: #### YELENA, 63193-7, 64612-7, PINR, CBCA #### [facility] ([id number]) [address] [place] [address] #### HA1C #### [facility] ([id number]) [address] [place] [address], [address] [place], [place] [address]LA CHEST 1 VIEW STROKEon [id number] CHEST 1 VIEW STROKEXR CHEST 1 VIEW STROKE XR CHEST 1 VIEW STROKE HISTORY: Stroke, chest pain, dizziness COMPARISON: 05/18/2024 FINDINGS: AP upright film obtained. Cervical fusion hardware. The cardiomediastinal silhouette is within normal limits. No pleural effusion or pneumothorax. No consolidation. IMPRESSION: * No radiographic evidence of acute cardiopulmonary process. Approved by Resident: Ronaldo Kuo DO on 08/10/2024 12:28 PM Francis Argueta MD have personally reviewed the image(s) and agree with and/or edited the report Finalized by Francis Porras MD on 08/10/2024 12:31 PMNormalProMedica Good Samaritan HospitalaPTT Coag (PPP) [Time]on 70-63-4643sMKM Coag (Bld) [Time]32 xBpcljn59-55 [facility] HospitalComment on above:Result Comment: NEW REFERENCE RANGE Performed By: #### BMP, 50308-1, 50487-8, PINR, CBCA #### [facility] ([id number]) [address] [facility], [place] [address] #### HA1C #### [facility] ([id number]) [address] [place] [address], [address] [place], [place] [address]TU JACOB PERF SPECT REST STRon 62-13-0723[address] [address] Nuclear Medicine Report Signed Patient: TAJ RING MR#: [id number] : 1945 Acct:[id number] Age/Sex: 78 / M ADM Date: 07/10/24 Loc: [place] Attending Dr: MONO KNOWLES Ordering Physician: MONO KNOWLES Date of Service: 07/10/24 Procedure(s): NM jacob perf SPECT rest str Accession Number(s): [id number] cc: MONO KNOWLES Patient Name: TAJ RING MR#: [id number] : 1945 Exam Date: 07/10/2024 Ordering Doctor: DR MONO KNOWLES M.D. RADIOLOGY REPORT PROCEDURE: NM JACOB PERF SPECT REST STR COMPARISON: None. INDICATIONS: [...] ventricle size and ejection fraction. Dictated by: Tyler Schmidt M.D. on 07/11/2024 at 15:35 Approved by: Tyler Schmdit M.D. on 07/11/2024 at 15:48 Dictated By: Tyler Schmidt M.D. Signed By: 07/11/24 1549 DD/ 154 TD/TT: Bow Tacker:TBHRadiology, Radiologist, MD - 07/11/2024 [place] [address] Nuclear Medicine Report Signed Patient: TAJ RING MR#: [id number] : 1945 Acct:[id number] Age/Sex: 78 / M ADM Date: 07/10/24 Loc: [place] Attending Dr: MONO KNOWLES Ordering Physician: MONO KNOWLES Date of Service: 07/10/24 Procedure(s): NM jacob perf SPECT rest str Accession Number(s): [id number] cc: MONO KNOWLES Patient Name: TAJ RING MR#: [id number] : 1945 Exam Date: 07/10/2024 Ordering Doctor: DR MONO KNOWLES M.D. RADIOLOGY REPORT PROCEDURE: NM JACOB PERF SPECT REST STR COMPARISON: None. INDICATIONS: [...] ventricle size and ejection fraction. Dictated by: Tyler Schmidt M.D. on 07/11/2024 at 15:35 Approved by: Tyler Schmidt M.D. on 07/11/2024 at 15:48 Dictated By: Tyler Schmidt M.D. Signed By: 07/11/24 1549 DD/ 1549 TD/TT: Bow Tacker: [facility] CenterRadiology Study observation (narrative)[facility] JACOB PERF SPECT REST STROrdered By: Radiologist Radiology on 72-02-1328FUUYSaint [facility] Work Phone: bLOOD CULTURE 1on 26-68-1909CHNSI CULTURE 1 Blood Culture 1 NG5D NO GROWTH AT 5 DAYS.^NO GROWTH AT 5 DAYS. [facility] CenterBLOOD CULTURE 2on 67-94-3275ZMTSL CULTURE 2 Blood Culture 2 NG5D NO GROWTH AT 5 DAYS.^NO GROWTH AT 5 DAYS. [facility] Medical CenterNo Panel Informationon 03-97-0783EQSCVREUUXAZN HealthcareXR Foot Complete Left*on 23-61-8605ZT Foot Complete Left*FINDINGS: Mild hallux valgus. Mild 1st MTP, interphalangeal joint space loss. Small plantar calcaneal spur. Posterior calcaneal sclerosis can be consistent with stress fracture if clinically suspect. IMPRESSION: 1. Posterior calcaneal findings can be consistent with stress fracture if clinically suspect. Report reported and signed by Vu Moore on 05/13/2022 1312NormalNorthonorhealth scottsdale thompson peak medical centern Lawrence+Memorial HospitalC-Reactive Proteinon 82-13-8757SLK IV0.8 mg/dlNormal<5.0 [facility] SpecialistComment on above:Performed By: #### CMP, CRP, FT4, LIPD, FT3, ESR, TSH, CBC #### [facility] [address] [place], [place] [id number] Blood Counton 79-27-6443Gelpjizhvfw distribution width (RBC) [Ratio]13.9 %Wnukat30.0-15.0[facility] SpecialistComment on above:Performed By: #### CMP, CRP, FT4, LIPD, FT3, ESR, TSH, CBC #### [facility] [address] [place], [place] [id number] (Bld) [Volume fraction]48.5 %Qocqxc09.5-50.0 Parkview HealthComment on above:Performed By: #### CMP, CRP, FT4, LIPD, FT3, ESR, TSH, CBC #### [facility] [address] [place], [place] [id number] (Bld) [Mass/Vol]15.1 g/eOBqnxmi70.0-17.1NortherAdena Health System SpecialistComment on above:Performed By: #### CMP, CRP, FT4, LIPD, FT3, ESR, TSH, CBC #### [facility] [address] [place], [place] [id number] (RBC) [Entitic mass]28.6 enXhgmsz98.0-33.0NoPremier Health [facility] SpecialistComment on above:Performed By: #### CMP, CRP, FT4, LIPD, FT3, ESR, TSH, CBC #### [facility] [address] [place], [place] [id number] (RBC) [Mass/Vol]31.1 g/dLLow32.0-36.0NoPremier Health [facility] SpecialistComment on above:Performed By: #### CMP, CRP, FT4, LIPD, FT3, ESR, TSH, CBC #### [facility] [address] [place], [place] [id number] (RBC) [Entitic vol]92 dFDmzlpj09-096Sgmoevsc [facility] SpecialistComment on above:Performed By: #### CMP, CRP, FT4, LIPD, FT3, ESR, TSH, CBC #### [facility] [address] [place], [place] [id number] mean volume (Bld) [Entitic vol]9.10 fLNormal 7.50-12.50NoPremier Health [facility] SpecialistComment on above:Performed By: #### CMP, CRP, FT4, LIPD, FT3, ESR, TSH, CBC #### [facility] [address] [place], [place] [id number] (Bld) [#/Vol]151 10*3/vGDveynf737-529Flwasbbr [facility] SpecialistComment on above:Performed By: #### CMP, CRP, FT4, LIPD, FT3, ESR, TSH, CBC #### [facility] [address] [place], [place] [id number] (Bld) [#/Vol]5.28 10*6/uLNormal4.20-5.80NoPremier Health [facility] SpecialistComment on above:Performed By: #### CMP, CRP, FT4, LIPD, FT3, ESR, TSH, CBC #### [facility] [address] [place], [place] [id number]-JQ06.7 hWRfjbfk69.0-50.0NoPremier Health [facility] Specialist Comment on above:Performed By: #### CMP, CRP, FT4, LIPD, FT3, ESR, TSH, CBC #### [facility] [address] [place], [place] [id number] (Bld) [#/Vol]10.2 10*3/uLNormal3.8-11.0[facility] SpecialistComment on above:Performed By: #### CMP, CRP, FT4, LIPD, FT3, ESR, TSH, CBC #### [facility] [address] [place], [place] [id number] Metabolic Panelon 56-76-9960Uyghzlb [Mass/Vol] 4.1 g/dLNormal3.6-5.1[facility] [place] SpecialistComment on above:Performed By: #### CMP, CRP, FT4, LIPD, FT3, ESR, TSH, CBC #### [facility] [address] [place], [place] [id number]/Globulin [Mass ratio]1.6 {ratio}Normal1.0-2.5[facility] SpecialistComment on above:Performed By: #### CMP, CRP, FT4, LIPD, FT3, ESR, TSH, CBC #### [facility] [address] [place], [place] [id number] [Catalytic activity/Vol]98 U/NVvzsfs52-554EnbxxfjoMarietta Osteopathic ClinicComment on above:Performed By: #### CMP, CRP, FT4, LIPD, FT3, ESR, TSH, CBC #### [facility] [address] [place], [place] [id number] [Catalytic activity/Vol]36 U/LNormal9-46NoMarietta Osteopathic ClinicComment on above:Result Comment: 08/13/2021 Female reference range changed.Performed By: #### CMP, CRP, FT4, LIPD, FT3, ESR, TSH, CBC #### [facility] [address] [place], [place] [id number] gap [Moles/Vol]16 mmol/VPuudzz22-83Lsxrqtlu [facility] SpecialistComforest health medical center on above:Result Comment: Effective 09/18/2019 reference range changed.Performed By: #### CMP, CRP, FT4, LIPD, FT3, ESR, TSH, CBC #### [facility] [address] [place], [place] [id number] [Catalytic activity/Vol]19 U/OZnlblw45-47MhazektzMarietta Osteopathic ClinicComment on above:Performed By: #### CMP, CRP, FT4, LIPD, FT3, ESR, TSH, CBC #### [facility] [address] [place], [place] [id number] [Mass/Vol]0.65 mg/dLNormal0.30-1.20NoPremier Health [facility] SpecialistComment on above:Performed By: #### CMP, CRP, FT4, LIPD, FT3, ESR, TSH, CBC #### [facility] [address] [place], [place] [id number]/CREA13 RatioNormal6-22NortSt. Rita's HospitalToe Former Stitchdown[place] Comment on above:Performed By: #### CMP, CRP, FT4, LIPD, FT3, ESR, TSH, CBC #### [facility] [address] [place], [place] [id number] [Mass/Vol]8.5 mg/dLLow8.6-10.2[facility] [place] SpecialistComment on above:Performed By: #### CMP, CRP, FT4, LIPD, FT3, ESR, TSH, CBC #### [facility] [address] [place], [place] [id number] [Moles/Vol]107 mmol/GReviyk99-096Jptazthb [place] [facility] SpecialistComment on above:Performed By: #### CMP, CRP, FT4, LIPD, FT3, ESR, TSH, CBC #### [facility] [address] [place], [place] [id number] [Moles/Vol]25 mmol/MRlggyu58-73Uhbjkchq [facility] SpecialistComment on above:Performed By: #### CMP, CRP, FT4, LIPD, FT3, ESR, TSH, CBC #### [facility] [address] [place], [place] [id number] [Mass/Vol]1.6 mg/dLHigh0.7-1.4NoPremier Health [facility] SpecialistComment on above:Performed By: #### CMP, CRP, FT4, LIPD, FT3, ESR, TSH, CBC #### [facility] [address] [place], [place] [id number] mL/min/1.12c5Lms>60NortSt. Rita's HospitalToe Former [place] Comment on above:Performed By: #### CMP, CRP, FT4, LIPD, FT3, ESR, TSH, CBC #### [facility] [address] [place], [place] [id number] mL/min/1.98k8Utr>60NoPremier Health [facility] Specialist Comment on above:Performed By: #### CMP, CRP, FT4, LIPD, FT3, ESR, TSH, CBC #### [facility] [address] [place], [place] [id number] (S) [Mass/Vol]2.5 g/dLNormal1.9-3.7NoPremier Health [facility] SpecialistComment on above:Performed By: #### CMP, CRP, FT4, LIPD, FT3, ESR, TSH, CBC #### [facility] [address] [place], [place] [id number] [Mass/Vol]88 mg/fSCchfum36-67Sbmuxuss [facility] SpecialistComment on above:Result Comment: For FASTING Glucose --- ADA reference ranges: Normal 65-99 mg/dl Prediabetes 100-125 Diabetes >/= 126Performed By: #### CMP, CRP, FT4, LIPD, FT3, ESR, TSH, CBC #### [facility] [address] [place], [place] [id number] [Moles/Vol]5.2 mmol/LNormal3.5-5.5NoPremier Health [facility] SpecialistComment on above:Performed By: #### CMP, CRP, FT4, LIPD, FT3, ESR, TSH, CBC #### [facility] [address] [place], [place] [id number] [Mass/Vol]6.6 g/dLNormal6.1-8.1NortherAdena Health System SpecialistComment on above:Performed By: #### CMP, CRP, FT4, LIPD, FT3, ESR, TSH, CBC #### [facility] [address] [place], [place] [id number] [Moles/Vol]143 mmol/DRrtsqk107-297Equzuhtu [facility] SpecialistComment on above:Performed By: #### CMP, CRP, FT4, LIPD, FT3, ESR, TSH, CBC #### [facility] [address] [place], [place] [id number] nitrogen [Mass/Vol]20 mg/dLNormal7-25NortSt. Rita's Hospital SpecialistComment on above:Performed By: #### CMP, CRP, FT4, LIPD, FT3, ESR, TSH, CBC #### [facility] [address] [place], [place] [id number] T3on 52-18-7181LR91.63 pg/mLNormal2.00-4.40NortSt. Rita's Hospital SpecialistComment on above:Performed By: #### CMP, CRP, FT4, LIPD, FT3, ESR, TSH, CBC #### [facility] [address] [place], [place] [id number] T4on 13-37-3380Kvap T4 [Mass/Vol]1.00 ng/dLNormal 0.80-1.80NoPremier Health [facility] SpecialistComment on above:Performed By: #### CMP, CRP, FT4, LIPD, FT3, ESR, TSH, CBC #### [facility] [address] [place], [place] [id number] Panelon 45-88-3800Ndlekdqdcjs [Mass/Vol]147 mg/dLNormal 125-200NoPremier [facility] SpecialistComment on above:Result Comment: Low risk < 200mg/dL Borderline risk 201-239 mg/dl High risk > or equal to 240Performed By: #### CMP, CRP, FT4, LIPD, FT3, ESR, TSH, CBC #### [facility] [address] [place], [place] [id number] in HDL [Mass/Vol]71 mg/dLNormal>40NoPremier Health [facility] SpecialistComment on above:Result Comment: High Cardiovascular Risk HDL <40 mg/dL Low Cardiovascular Risk HDL > or equal to 60 mg/dlPerformed By: #### CMP, CRP, FT4, LIPD, FT3, ESR, TSH, CBC #### [facility] [address] [place], [place] [id number] in LDL [Mass/Vol]58 mg/dLNormalNorthonorhealth scottsdale thompson peak medical centern [facility] [place] SpecialistComment on above:Result Comment: LDL ATP III CLASSIFICATION LDL less than 100 mg/dl Optimal LDL 100-129 mg/dl Near or above optimal LDL 130-159 Borderline high LDL 160-189 High LDL greater than 189 mg/dl Very HighPerformed By: #### CMP, CRP, FT4, LIPD, FT3, ESR, TSH, CBC #### [facility] [address] [place], [place] [id number] in VLDL [Mass/Vol]18 mg/dLNormalNoPremier Health [facility] SpecialistComment on above:Performed By: #### CMP, CRP, FT4, LIPD, FT3, ESR, TSH, CBC #### [facility] [address] [place], [place] [id number].total/Cholesterol in HDL [Mass ratio]2 {ratio} NormalNoMarietta Osteopathic ClinicComment on above:Performed By: #### CMP, CRP, FT4, LIPD, FT3, ESR, TSH, CBC #### [facility] [address] [place], [place] [id number] [Mass/Vol]89 mg/mGQpuyai88-297Nfqsmcwr [place] [facility] SpecialistComment on above:Result Comment: TRIG ATPIII CLASSIFICATIONS TRIG less than 150 mg/dl Normal TRIG 150-199 mg/dl Borderline High TRIG 200-500 mg/dl High TRIG greather than 500 mg/dl Very HighPerformed By: #### CMP, CRP, FT4, LIPD, FT3, ESR, TSH, CBC #### [facility] [address] [place], [place] [id number] SCREEN (MEDICARE)on 96-54-5685FKWO8.731 ng/mLNormal<4.000 Parkview HealthComment on above:Result Comment: PSA Test Method: ECLIA/Alicia e 601Performed By: #### PSA MC #### [facility] [address] [place], [place] [id number] Sedimentation Rateon 05-72-6635QET (Bld) [Velocity]57.00 mm/hHigh0.00-20.00NoPremier Health [facility] SpecialistComment on above:Performed By: #### CMP, CRP, FT4, LIPD, FT3, ESR, TSH, CBC #### [facility] [address] [place], [place] [id number] 51-42-2732JZF6.990 uIU/mLNormal0.400-4.500NortSt. Rita's Hospital SpecialistComment on above:Performed By: #### CMP, CRP, FT4, LIPD, FT3, ESR, TSH, CBC #### [facility] [address] [place], [place] [id number] Acidon 53-19-0099QBVC7.5 mg/dLHigh4.0-8.0Northonorhealth [facility] medical centern [facility] [place] SpecialistComment on above:Result Comment: Reference range change 07/30/2017. Prior reference range F 2.4-5.7mg/dL. M 3.4-7.0 mg/dL.Performed By: #### URIC #### [facility] [address] [place], [place] [id number] pre/post mri xrayon 71-24-3596QT pre/post mri xray [facility] [place] [address] MRI Report Signed Patient: Taj Ring MR#: [id number] : 1945 Acct:[id number] Age/Sex: 75 / M ADM Date: 08/01/21 Loc: [facility] Room: Type: [facility] Attending Dr: Petrona Boyer NP Ordering Provider: Petrona Boyer NP Date of Service: 08/01/21 MR/MR lumbar spine wo con: M51.26 ([id number]) XR/XR pre/post mri xray: M51.26 Copies to: [...] Kirk Santiago M.D.08/01/2021 5:06 PM Dictation Location: [place] [address] Transcribed By: [facility] 08/01/21 1706 Dictated By: Kirk Santiago II, MD 08/01/21 6140 Signed By: 08/01/21 170[facility] Vital Signs Date TimeVital SignValuePerforming UtdwyfufbEmorfzdc96-95-8302 11:22-0400Body ifzqyf564.6 cmMono Knowles MD Work Phone: 1(753)[facility]-9054[facility] CenterEhjdsgziga08-02-1262 11:22-0400Body mass index (BMI) [Ratio]31.47 kg/p5QhpqpvMono Knowles MD Work Phone: 1(449)[facility] [place], [place] [address]Pqengruqen75-18-0539 11:22-0400Body temperature 97.9 [degF]Mono Knowles MD Work Phone: 1(266)[facility] [place], [place] [address]Spiuhpxhgz32-20-6045 11:22-0400Body wlzigo78.45 kgMono Knowles MD Work Phone: 1(150)[facility] [place], [place] [address]Fbfgtgatdq85-42-9110 11:22-0400Diastolic blood rcgxermk45 mm[Hg]Mono Knowles MD Work Phone: 1(674)[facility] [place], [place] [address]Bkguzfazbj65-36-3376 11:22-0400Heart rate66 /min Mono Knowles MD Work Phone: 1(412)[facility] [place], [place] [address]Fthlikjfng57-27-3028 11:22-8532MlI9% (BldA) [Mass fraction]96 %Mono Knowles MD Work Phone: 1(338)[facility]-[address] [place], [place] [address]Dpdrjughfu58-45-5622 11:22-0400Systolic blood fpjmseff254 mm[Hg]Mono Knowles MD Work Phone: 1(940)[facility] [place], [place] [address]Lcfcpbeakh52-40-1649 09:07-0400Body bnjiem873.6 cmKami Thomason [employer] Work Phone: 1(243)[facility] [place], [place] [address]Utihisylja37-66-8290 09:07-0400Body mass index (BMI) [Ratio]31.96 kg/m2Kami Thomason [employer] Work Phone: 1(807)[facility] HospitalNOSalem Memorial District HospitalKxlnqizsod83-60-9745 09:07-0400Body rfrond48.81 kgKami Thomason [employer] Work Phone: 1(734)[facility]053NOSalem Memorial District HospitalAwvumcepqz10-11-4193 09:07-0400Diastolic blood crioxosb20 mm[Hg]Kami Thomason [employer] Work Phone: 1(575)[facility]-[address] [place], [place] [address]Wskbuyxldy34-73-3152 09:07-0400Heart rate71 /min Kami Thomason [employer] Work Phone: NOSalem [facility] District HospitalQycauffhpe31-12-8765 09:07-0400Respiratory rate16 /minDannylyndsey Rashaad [employer] Work Phone: [phone] Memorial District HospitalQealmdkgjw97-16-6952 09:07-4203OvS8% (BldA) [Mass fraction]96 %Kami Thomason [employer] Work Phone: NOSalem Memorial District HospitalUyipeguajl18-54-7797 09:07-0400Systolic blood nqpkioqu018 mm[Hg]Kami Thomason [employer] Work Phone: [phone] Memorial District HospitalWsapcjerwj70-64-3166 08:46-0400Body .6 cmMono Knowles MD Work Phone: [phone] Memorial District HospitalKlmimxkxcj98-88-9557 08:46-0400Body mass index (BMI) [Ratio]31.15 kg/e7YmichkMono Knowles MD Work Phone: [phone] Memorial District HospitalRrntjmrakq04-50-7365 08:46-0400Body .54 kgMono Knowles MD Work Phone: NOSalem [facility] District HospitalSttlwhuwuy05-96-7048 08:46-0400Diastolic blood nmdvdqas34 mm[Hg]Mono Knowles MD Work Phone: [phone] Memorial District HospitalHgdsswteng56-73-5331 08:46-0400Heart rate54 /min Mono Knowles MD Work Phone: NOSalem Memorial District HospitalAkgggwjqix82-29-3671 08:46-9908DeL1% (BldA) [Mass fraction]97 %Mono Knowles MD Work Phone: NOSalem Memorial District HospitalHabkmzdzim57-83-1582 08:46-0400Systolic blood mpvemcps367 mm[Hg]Mono Knowles MD Work Phone: NOSalem [facility] District HospitalXqxmhpszca86-80-4989 10:40-0400Body ejhluk738.6 cmMono Knowles MD Work Phone: NOSalem Memorial District HospitalOhlkiytapr93-50-4780 10:40-0400Body mass index (BMI) [Ratio]31.09 kg/y4CdakhhMono Knowles MD Work Phone: NOSalem [facility] District HospitalEplaneaujc00-54-1597 10:40-0400Body fjqqul91.36 kgMono Knowles MD Work Phone: NOSalem Memorial District HospitalIbiryhjkdk25-91-3800 10:40-0400Diastolic blood trcqumgu46 mm[Hg]Mono Knowles MD Work Phone: NOSalem [facility] District HospitalBlinzxucxl74-91-7479 10:40-0400Heart rate64 /min Mono Knowles MD Work Phone: NOSalem [facility] District HospitalDcudxeicxl05-06-7825 10:40-0400Respiratory rate16 /minDsunni Knowles MD Work Phone: NOSalem [facility] District HospitalExgjixoyxo60-15-3930 10:40-6252QoV1% (BldA) [Mass fraction]97 %Mono Knowles MD Work Phone: NOSalem [facility] District HospitalPsijiebktx41-42-9581 10:40-0400Systolic blood wprndpci744 mm[Hg]Mono Knowles MD Work Phone: NOSalem [facility] District HospitalAsskdifouc13-67-2399 08:48-0400Body dzeqgx609.6 cmDagregorio Knowles MD Work Phone: NOSalem [facility] District HospitalGnjayfbzin41-68-5231 08:48-0400Body mass index (BMI) [Ratio]31.31 kg/j1CrnawdMono Knowles MD Work Phone: NOSalem [facility] District HospitalJpdeppbvnh37-63-9588 08:48-0400Body bkznuu53 kg Mono Knowles MD Work Phone: NOSalem [facility] District HospitalXixzevisqa98-92-3653 08:48-0400Diastolic blood jizgmvfu49 mm[Hg]Mono Knowles MD Work Phone: NOSalem [facility] District HospitalUeerrwwyud60-36-8178 08:48-0400Heart rate63 /min Mono Knowles MD Work Phone: NOSalem Memorial District HospitalEmkbfgvsmb07-17-9586 08:48-9906NdQ6% (BldA) [Mass fraction]96 %Mono Knowles MD Work Phone: NOSalem [facility] District HospitalGvjzthjamu71-48-1596 08:48-0400Systolic blood mwzxphxu190 mm[Hg]Mono Knowles MD Work Phone: [facility] CenterExhokcgbvc46-39-0772 09:07-0400Body wwicfu716.6 cmMono Knowles MD Work Phone: [facility] CenterIiehdbqjoc55-37-9604 09:07-0400Body mass index (BMI) [Ratio]30.99 kg/m6BxzcgpMono Knowles MD Work Phone: [facility] CenterPzyfjkuswe25-66-7632 09:07-0400Body .09 kgMono Knowles MD Work Phone: [facility] CenterBfxcsszurt95-99-8165 09:07-0400Diastolic blood ulqeyoup46 mm[Hg]Mono Knowles MD Work Phone: [facility] CenterMypqpgayxm58-83-3556 09:07-0400Heart rate62 /min Mono Knowles MD Work Phone: [facility] CenterRhhxduvxga33-07-1019 09:07-5904EkS7% (BldA) [Mass fraction]98 %Mono Knowles MD Work Phone: [facility] CenterRajonshvay70-88-5920 09:07-0400Systolic blood jwgianiz545 mm[Hg]Mono Knowles MD Work Phone: [facility] CenterCdpktsbdah21-25-8399 14:24-0500Body mass index (BMI) [Ratio]30.89 kg/g1Sjrgxqgltyu Jossy DO Work Phone: [facility] CenterOzkbdedcgd13-80-5136 14:24-0500Body esveol15.82 kgChristopher Jossy DO Work Phone: [facility] CenterHcbgqcxivf66-49-9163 14:24-0500Diastolic blood brvmucfm83 mm[Hg]Christjavid Fenton DO Work Phone: [facility] CenterTpngcmgtcj73-17-2426 14:24-0500Heart rate64 /min Christopher Jossy DO Work Phone: noSalem Memorial District HospitalUgofcotdsz63-47-0254 14:24-8886LrF8% (BldA) [Mass fraction]97 %Christjavid Fenton DO Work Phone: [facility] CenterVymavjboqj90-04-6784 14:24-0500Systolic blood mm[Hg]Artemjavid Fenton Work Phone: [facility] CenterMehgzbmljp55-10-4919 08:12-0500Body evwggc201.6 cmNorma Jin MD Work Phone: [facility] CenterNticdmvrzb07-41-7604 08:12-0500Body mass index (BMI) [Ratio]30.18 kg/w4YaqpqcNorma Jin MD Work Phone: 1(663)[facility]-9373[facility] CenterXybthyvcmb50-02-3420 08:12-0500Body yihapu94.82 kgNorma Jin MD Work Phone: 1(477)[facility]-3309[facility] CenterUdlvlktdpe03-72-8858 08:12-0500Diastolic blood mm[Hg]Norma Jin MD Work Phone: 1(229)[facility]-7522[facility] CenterOrdesmllws65-98-6602 08:12-0500Heart rate75 /min Norma Jin MD Work Phone: 1(879)[facility]-4615[facility] CenterUaulmaodzn55-41-0725 08:12-0500Systolic blood yebljgiy582 mm[Hg]Norma Jin MD Work Phone: 1(313)[facility]-5743[facility] CenterAkzmebzueb77-85-9372 11:11-0500Body rjqpii917.6 cmMono Knowles MD Work Phone: 1(645)[facility]-[address] [place], [place] [address]Susczzsvgj88-71-5366 11:11-0500Body mass index (BMI) [Ratio]30.18 kg/e0JnkckwMono Knowles MD Work Phone: 1(921)[facility]-[address] [place], [place] [address]Mvsccxrgwe98-53-0568 11:11-0500Body slzezt69.82 kgMono Knowles MD Work Phone: 1(610)[facility]-[address] [place], [place] [address]Hlmyvmlhuu99-31-3840 11:11-0500Diastolic blood pmopspiw53 mm[Hg]Mono Knowles MD Work Phone: 1(545)[facility]-[address] [place], [place] [address]Gjlmnootfm50-85-1648 11:11-0500Heart rate67 /min Mono Knowles MD Work Phone: 1(185)[facility]-[address] [place], [place] [address]Wuwnshomrt25-93-6608 11:11-7457VjQ1% (BldA) [Mass fraction]96 %Mono Knowles MD Work Phone: [facility] CenterQrpqgcrsna66-14-7194 11:11-0500Systolic blood ojsaeykz458 mm[Hg]Mono Knowles MD Work Phone: [facility] CenterRavagpkhvi46-09-5675 08:33-0500Body .6 cmKaren Hemmer PA Work Phone: [facility] CenterDkmmnbczqz27-58-2403 08:33-0500Body mass index (BMI) [Ratio]30.34 kg/p7Qqkik Hemmer PA Work Phone: [facility] CenterHeiwmxckvl62-20-9472 08:33-0500Body vrffwa56.28 kgKaren Hemmer PA Work Phone: [facility] CenterStwvlimfvn00-57-8432 08:33-0500Diastolic blood zyvtzsuy12 mm[Hg]Marylou Hemmer PA Work Phone: [facility] CenterLwpwncpvfe92-32-3154 08:33-0500Heart rate52 /min Marylou Hemmer PA Work Phone: [facility] Medical CenterRnldzpfpic02-43-7832 08:33-2180FyE9% (BldA) [Mass fraction]94 %Marylou Hemmer PA Work Phone: [facility] CenterMlbycabkxg08-45-7409 08:33-0500Systolic blood qxzanxxy463 mm[Hg]Marylou Hemmer PA Work Phone: [facility] CenterAqwhubkcbl23-04-9629 08:59-0500Body .6 cmMono Knowles MD Work Phone: [facility] HospitalTwoavsescq65-22-0505 08:59-0500Body mass index (BMI) [Ratio]29.86 kg/h5NstywmMono Knowles MD Work Phone: [facility] HospitalCqcepcmsww72-21-7916 08:59-0500Body ffjorh86.92 kgMono Knowles MD Work Phone: [facility] HospitalRqzbgrdqiw63-62-7645 08:59-0500Diastolic blood scsdjjez18 mm[Hg]Mono Knowles MD Work Phone: [facility] HospitalCsmjabjgtd10-67-6455 08:59-0500Heart rate66 /min Mono Knowles MD Work Phone: [facility] HospitalVeqhwjupck87-74-6483 08:59-2599JvQ1% (BldA) [Mass fraction]96 %Mono Knowles MD Work Phone: [facility] HospitalSpkitvzeqf01-66-9670 08:59-0500Systolic blood zzcjwqdi384 mm[Hg]Mono Knowles MD Work Phone: [facility] HospitalZvzcpmwtpw56-74-5530 10:12-0400Body foijfh539.6 cmMono Knowles MD Work Phone: [facility] HospitalWemlgsjigj58-82-5441 10:12-0400Body mass index (BMI) [Ratio]30.34 kg/l0FsuxerMono Knowles MD Work Phone: [facility] HospitalRzemyaekyn90-03-7041 10:12-0400Body qqeprz35.28 kgMono Knowles MD Work Phone: [facility] HospitalSmqgbqhhfs56-72-4503 10:12-0400Diastolic blood mm[Hg]Mono Knowles MD Work Phone: [facility] HospitalXbrtfdcxnu03-61-4482 10:12-0400Heart rate62 /min Mono Knowles MD Work Phone: [facility] HospitalRfcuzerarc64-25-5651 10:12-2554JbI0% (BldA) [Mass fraction]97 %Mono Knowles MD Work Phone: [facility] HospitalYnjcgplnes58-55-3614 10:12-0400Systolic blood mm[Hg]Mono Knowles MD Work Phone: [facility] HospitalKnrmwktche12-14-0136 09:15-0400Body .6 cmMono Knowles MD Work Phone: [facility] HospitalAhryvsflhz57-41-9761 09:15-0400Body mass index (BMI) [Ratio]29.7 kg/k1FjeyxvMono Knowles MD Work Phone: [facility] CenterDosucmdaft90-01-9691 09:15-0400Body mlvyap63.46 kgDagregorio Knowles MD Work Phone: [facility] CenterGlmvzizmmw63-36-4360 09:15-0400Diastolic blood mm[Hg]Mono Knowles MD Work Phone: [facility] CenterXvqhpzlkal55-15-4701 09:15-0400Heart rate63 /min Mono Knowles MD Work Phone: 1([phone])404-[address] [place], [place] [address]Vbuegshjmx11-70-8378 09:15-9781JjU0% (BldA) [Mass fraction]97 %Mono Knowles MD Work Phone: [facility] CenterOeonvdylxt00-73-4553 09:15-0400Systolic blood xmtnnioo863 mm[Hg]Mono Knowles MD Work Phone: 1([phone])628-[address] [place], [place] [address]Soteiapdid48-62-4643 08:42-0400Body jdnydm957.6 cmSmaynor Ray CUT PLUG PACKER Work Phone: 1(486)382-[address] [place], [place] [address]Vbsbsayldd65-56-8100 08:42-0400Body mass index (BMI) [Ratio]29.86 kg/v6YsenfuYvette Ray CUT PLUG PACKER Work Phone: 1(708)404-[address] [place], [place] [address]Mjfunkdwvy99-30-2375 08:42-0400Body smpypa98.92 kgShlashonda Ray CUT PLUG PACKER Work Phone: [facility] CenterUtilxpyumf96-21-8531 08:42-0400Diastolic blood zinixyjk46 mm[Hg]Yvette Ray CUT PLUG PACKER Work Phone: 1([phone])800-[address] [place], [place] [address]Swtqoahemk25-63-2219 08:42-0400Heart rate60 /min Yvette Ray CUT PLUG PACKER Work Phone: [facility] CenterAeseowfwgr05-80-9500 08:42-4109CnW9% (BldA) [Mass fraction]98 %Yvette Ray CUT PLUG PACKER Work Phone: [facility] CenterCzmnlnxqgp77-03-1916 08:42-0400Systolic blood bknrqveh056 mm[Hg]Yvette Ray CUT PLUG PACKER Work Phone: [facility] HospitalXfqvzurgvc99-70-3336 09:59-0400Body ngiwoe131.6 cmDagregorio Knowles MD Work Phone: [facility] HospitalYdmgaozjod08-69-0010 09:59-0400Body mass index (BMI) [Ratio]30.18 kg/r5PwidoeMono Knowles MD Work Phone: [facility] HospitalLjkyyypoab49-95-8446 09:59-0400Body cvqtde08.82 kgMono Knowles MD Work Phone: [facility] HospitalEbpubhtqgn65-39-0792 09:59-0400Diastolic blood zshjesgt35 mm[Hg]Mono Knowles MD Work Phone: [facility] HospitalBrwkzdcprz84-73-8268 09:59-0400Heart rate56 /min Mono Knowles MD Work Phone: [facility] HospitalPxdrmpnsir05-08-2000 09:59-7568UaG0% (BldA) [Mass fraction]98 %Mono Knowles MD Work Phone: [facility] HospitalTaxuyjtyrg96-91-4533 09:59-0400Systolic blood bmotfpkq086 mm[Hg]Mono Knowles MD Work Phone: [facility] CenterWqykejaeam32-40-4131 08:38-0400Body .6 cmTleyla Son MD Work Phone: 1(775)649-[address] [place], [place] 7185103-28-2024 08:38-0400Body mass index (BMI) [Ratio]29.86 kg/k2UggjocAdrian Son MD Work Phone: 1(508)131-[address] [place], [place] 7185103-28-2024 08:38-0400Body .92 kgThcherry Son MD Work Phone: 1(484)424-[facility]renarmeTr[facility]ull [facility]03-28-2024 08:38-0400Diastolic blood mm[Hg]Adrian Son MD Work Phone: 1(378)949-EntrenarmeTrumbull Regional Medical Center03-28-2024 08:38-0400Heart rate 63 /minAdrian Son MD Work Phone: 1(765)332-EntrenarmeTrumbull Regional Medical Center03-28-2024 08:38-9794JiN9% (BldA) [Mass fraction]95 %Adrian Son MD Work Phone: [facility]03-28-2024 08:38-0400Systolic blood fcmbtegd534 mm[Hg]Adrian Son MD Work Phone: [facility]02-14-2024 08:49-0500Body .6 cmMono Knowles MD Work Phone: [facility] HospitalDfhyjeewcz70-32-3122 08:49-0500Body mass index (BMI) [Ratio]29.7 kg/l0MevdsoMono Knowles MD Work Phone: [facility] HospitalRgodxfkszr03-21-1494 08:49-0500Body .46 kgMono Knowles MD Work Phone: [facility] HospitalVmldlnofpz59-84-7921 08:49-0500Diastolic blood xsizcjrz37 mm[Hg]Mono Knowles MD Work Phone: [facility] HospitalMtskhyweec52-62-4835 08:49-0500Heart rate56 /min Mono Knowles MD Work Phone: [facility] HospitalUhufcanfvd59-22-4765 08:49-7984RvR9% (BldA) [Mass fraction]97 %Mono Knowles MD Work Phone: [facility] HospitalChexzypfit79-70-3102 08:49-0500Systolic blood mm[Hg]Mono Knowles MD Work Phone: [facility] Encounters Encounter DateEncounter TypeCare ProviderFacilityStart: 07-18-2025 End: 24-66-2131Jdbuxujzj department patient visitDANIMONICA KNOWLESHarrison Community Hospital HospitalStart: 07-18-2025 End: 45-09-7084Gktzyfbas encounterDagregorio Knowles MD Work Phone: noms [place] [facility] MedinceComment on above:Anxiety Start: 07-10-2025 End: 79-30-7467Bgqtzw flowsheetMacynthia LOVELACE Work Phone: [facility]icsStart: 07-10-2025 End: 31-80-6132Pglpij flowsNatan LOVELACE Work Phone: [facility]ODY [facility]edicsStart: 07-10-2025 End: 14-62-9882Orytxv outpatient new 30 minutesMattkendra Emery Trev LOVELACE Work Phone: NOHR [facility]opaedicsComment on above:Right hip pain (Primary Dx); Arthritis of right hip; Right leg painStart: 07-10-2025 End: 68-54-6161caelegehucZCGCBWZ J MEYERNot AvailableStart: 07-09-2025 End: 44-86-7485YaqqleCeukbw B Berry MD Work Phone: NOUL [place] Brice MedinceComment on above:Cervical stenosis of spinal canalStart: 06-27-2025 End: 42-21-8228Qytsgrmwa Result EncounterGeneric External Data ProviderNOMS External Department UnsolicitedStart: 06-27-2025 End: 50-52-6959Iollaunty Result EncounterGeneric External Data ProviderNOMS External Department UnsolicitedStart: 06-25-2025 End: 22-85-4018Htoaty Godwin Knowles MD Work Phone: NOGF [place] [facility] MedinceStart: 06-25-2025 End: 68-30-1854Qcgzfs Godwin Knowles MD Work Phone: NOUY [place] [facility] MedinceStart: 06-25-2025 End: 79-05-8280Esvpbeptrcnk care manage srvc 14 day dischargeDsunni Knowles MD Work Phone: NOMS [place] [facility] MedinceComment on above: Cerebrovascular accident (CVA), unspecified mechanism (HCC) (Primary Dx); Right thigh pain; Closed displaced subtrochanteric fracture of right femur, sequela; Degeneration of intervertebral disc of lumbar region, unspecified whether pain present; Acute bronchitis, unspecified organismStart: 06-25-2025 End: 07-54-9734dcyrhtzwvpCTFRTI B BERRYNot AvailableStart: 06-21-2025 End: 13-03-4883Ofnnpx Darion Thomason NP Work Phone: NOMS [place] [facility] MedinceStart: 06-21-2025 End: 61-22-9894Otzvpnrosa isela Thomason C[employer] PL[employer] PACKER Work Phone: NOMS [place] [facility] MedinceStart: 06-21-2025 End: 88-69-3330Cxajih outpatient visit 25 minutesKami Thomason CUT PLUG PACKER Work Phone: NOMS [place] [facility] MedinceComment on above:Acute bronchitis, unspecified organism (Primary Dx); Anxiety; Chronic insomniaStart: 06-21-2025 End: 78-94-5721gxmavdmvwrMFX C MILLERNot AvailableStart: 06-15-2025 End: 20-92-0528IdywnsBzoigc B Berry MD Work Phone: NOZP [place] [facility] MedinceComment on above:Cervical stenosis of spinal canalStart: 06-05-2025 End: 72-66-8128Ikutghcdc encounterDagregorio Knowles MD Work Phone: NOZG [place] [facility] MedinceStart: 65-35-5080kddhskejjb MONOPied[facility] PPGStart: 05-26-2025 End: 14-08-7923Xfuahbbhl encounterGeorgette [facility] Call CenterComment on above:HIMStart: 05-26-2025 End: 23-84-5688Kpjedpsbi department patient visitMONO Coreas [facility] Ambulatory PPGStart: 05-24-2025 End: 44-29-4242Lamcpnumj department patient visitDAGREGORIO Coreas [facility] HospitalStart: 05-11-2025 End: 86-42-6703OyhofgYbcvywv Rahul YUNG [place] [facility] MedinceComment on above: AnxietyStart: 05-09-2025 End: 01-57-3793VwesylHalljz B Berry MD Work Phone: NOLD [place] [facility] MedinceComment on above:Cervical stenosis of spinal canalStart: 04-11-2025 End: 61-07-2641XibhldTndmqjl Rahul [facility] MedinceComment on above: AnxietyStart: 04-10-2025 End: 95-11-5900WdptncRxiepq B Berry MD Work Phone: N[facility]S [place] Brice MedinceComment on above:Cervical stenosis of spinal canalStart: 03-14-2025 End: 15-30-3456GaenttUxstxv B Berry MD Work Phone: [facility]S POPULATION HEALTHComment on above: Gastroesophageal reflux disease with esophagitis without hemorrhageStart: 03-13-2025 End: 31-24-5689ZlagsdCwkvirr Rahul YUNG CI FMComment on above:Chronic insomnia; Anxiety; Cervical stenosis of spinal canalStart: 03-07-2025 End: 78-30-6362Acdsjz Godwin Knowles MD Work Phone: [facility] CI FMStart: 03-07-2025 End: 90-91-7421Vyhhrv Godwin Knowles MD Work Phone: [facility] CI FMStart: 03-07-2025 End: 82-33-3212Ckgmbj outpatient visit 25 minutesMono Knowles MD Work Phone: [facility] CI FMComment on above:Acute non-recurrent sinusitis, unspecified location (Primary Dx); Bronchospasm; Benign essential hypertension ; Cervical stenosis of spinal canalStart: 03-07-2025 End: 18-74-1714zzzqazwktdZKYXXD B BERRYNot AvailableStart: 02-28-2025 End: 52-75-7572Cphvvh Godwin Knowles MD Work Phone: [facility] CI FMStart: 02-28-2025 End: 56-73-7075Cccwgh Godwin Knowles MD Work Phone: [facility] CI FMStart: 02-28-2025 End: 64-93-7812Mrlhty outpatient visit 25 minutesDagregorio Knowles MD Work Phone: [facility] CI FMComment on above:Acute non-recurrent sinusitis, unspecified location (Primary Dx); Bronchospasm; Chest pain, unspecified typeStart: 02-28-2025 End: 84-71-2680euvfctxoghDRMHPY B BERRYNot AvailableStart: 02-14-2025 End: 54-52-8324OxvewkKsttchw Rahul YUNG CI FMComment on above:AnxietyStart: 02-12-2025 End: 76-53-6919Eaykwb flowsMelba Knowles MD Work Phone: [facility] CI FMStart: 02-12-2025 End: 25-64-3308Pbfuhy flowsMelba Knowles MD Work Phone: [facility] CI FMStart: 02-12-2025 End: 00-93-3767Xvubdc outpatient visit 25 minutesDagregorio Knowles MD Work Phone: [facility] CI FMComment on above:Episodic tension-type headache, not intractable (Primary Dx); Idiopathic chronic gout without tophus, unspecified site; Vertigo; Cervical stenosis of spinal canal; Epilepsy, unspecified, not intractable, without status epilepticusStart: 02-12-2025 End: 10-72-6273zogbqlnifgUYPEOP B BERRYNot AvailableStart: 01-31-2025 End: 10-89-2336RwsowpSaiyv M Hemmer PA Work Phone: [facility] CI FMComment on above:Chronic insomniaStart: 01-22-2025 End: 49-28-7402Lwxewwxaj department patient visitMONO KNOWLESProOhiohealth Hardin Memorial Hospitalca [facility] Centertart: 01-08-2025 End: 50-02-8255MzxmrlHbuirc B Berry MD Work Phone: [facility] CI FMComment on above:Cervical stenosis of spinal canalStart: 12-06-2024 End: 52-49-5575Jdgvj of hemosidesangita, quantMono Knowles MD Work Phone: [facility] Work Phone: Start: 12-06-2024 End: 52-88-2736Arokmjsg preventive med est patient 65yrs& olderMono Knowles MD Work Phone: [facility] CI FMComment on above:Routine general medical examination at health care facility (Primary Dx); [...] hemorrhage; Benign essential hypertension (CMS/HCC); Atherosclerosis of [place] coronary artery of [place] heart with stable angina pectoris ([facility]/HCC); Stented coronary artery; Right lumbar radiculopathy; Cerebrovascular accident (CVA), unspecified mechanism (CMS/HCC)Start: 12-06-2024 End: 87-16-7774qlyjljrlrkOHTIVH B BERRYNot AvailableStart: 12-04-2024 End: 26-15-1838Nslpnkvzh encounterDaisy Crandall CMAProMedica Physicians Cardiology Start: 11-16-2024 End: 14-10-5721Htvjrw flowsDunia Sanchez MD Work Phone: aNA SANDUSKYStart: 11-16-2024 End: 83-68-1111Wkgiwp flowsDunia Sanchez MD Work Phone: aNA DANIELAUSKYStart: 11-16-2024 End: 22-44-0663Rgjgnwk encounter Darrius Sanchez MD Work Phone: aNA AJYComment on above:WeaknessStart: 11-16-2024 End: 92-76-4893msmuhgqmhyRFBWRQ BENEDICTNot AvailableStart: 11-09-2024 End: 29-11-0897QwujhiDsaitt B Berry MD Work Phone: [facility] CI FMComment on above:Cervical stenosis of spinal canalStart: 11-08-2024 End: 07-14-1738Atwowl outpatient new 60 minutesChristopher Jossy DO Work Phone: ANA BELLEVUEComment on above:History of TIA (transient ischemic attack) (Primary Dx); Spinal stenosis of lumbar region with neurogenic claudication; WeaknessStart: 11-08-2024 End: 90-99-1087jjzravuxhnOEKBEKLQLGV HASSETTNot AvailableStart: 11-08-2024 End: 89-48-2934Woqpzn flowsheetChristopher Jossy DO Work Phone: ANA BELLEVUEStart: 11-08-2024 End: 35-46-0893Mxxbne flowsheetChristopher Jossy DO Work Phone: ANA BELLEVUEStart: 11-01-2024 End: 58-02-4482Uzddnl flowsheetNorma Jin MD Work Phone: [facility]OM[facility] CI ENTStart: 11-01-2024 End: 18-47-1545Fikzxe Bernardo Jin MD Work Phone: [facility] CI ENTStart: 11-01-2024 End: 54-07-1194Lfwxfisum encounterDagregorio Knowles MD Work Phone: [facility] CI FMStart: 11-01-2024 End: 72-43-8166Htbvli outpatient new 45 minutesHimio Jin MD Work Phone: [facility] CI ENTComment on above:Pharyngoesophageal dysphagiaStart: 11-01-2024 End: 54-29-1543svqyiwifrjCEKKEQ Rafael JINNot AvailableStart: 10-31-2024 End: 20-25-8616Nstgpkawv encounterJeremjohnny Renteria PT Work Phone: [facility] CI PTComment on above:PT Eval Reminder (Today makes 3rd attempt to be seen.)Start: 10-23-2024 End: 17-45-3276XyzdbxUlbopok Rahul YUNG CI FMComment on above:AnxietyChronic insomniaStart: 10-21-2024 End: 04-64-8861HfyavkSsxtfdxr Schlosser 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 Phone: [facility] CardiologyComment on above:Med RefillStart: 10-16-2024 End: 84-46-4388Yrhusmqlt encounterJeremjohnny Renteria PT Work Phone: [facility] CI PTComment on above:NCNS PT Eval today; FU Start: 10-09-2024 End: 89-90-0377Ilthjk outpatient visit 25 minutesDagregorio Knowles MD Work Phone: [facility] CI FMComment on above:Cerebrovascular accident (CVA), unspecified mechanism (CMS/HCC) (Primary Dx); Cervical stenosis of spinal canal; Spinal stenosis of lumbar region with neurogenic claudicationStart: 10-09-2024 End: 16-83-3890mokfyxsiyoVJGQVA B BERRYNot AvailableStart: 10-06-2024 End: 25-39-1941gmqfnqpnmsJBLUFHJoint Township District Memorial Hospitaltart: 09-22-2024 End: 54-22-6600Jxuqtw outpatient visit 25 minutesMarylou LOVELACE Work Phone: [facility] CI FMComment on above:IRINA (acute kidney injury) (CMS/HCC) (Primary Dx); Stage 3b chronic kidney disease (HCC) (CMS/HCC); Benign essential hypertension (CMS/HCC)Start: 09-22-2024 End: 09-76-6765bglnmvoeeeCFTNG M HEMMERNot AvailableStart: 09-20-2024 End: 27-47-2448DnhnxwLgjxxmy Rahul YUNG CI FMComment on above:Anxiety; Cervical stenosis of spinal canalStart: 09-14-2024 End: 20-26-0149Dfksqvwyi department patient visitDAGREGORIO Coreas [facility] Hospitaltart: 21-05-4241sdyubqoqqcCELDBRWright-Patterson Medical Center Start: 08-31-2024 End: 15-63-6230Mqfbccnce encounterAimee Wednesday SOLAR THERMAL TECHNICIAN Work Phone: [facility] CI FMStart: 94-99-9198bejevasagpZFOKDRToledo Hospitaltart: 08-30-2024 End: 99-65-0310Ytafuu flowsMelba Knowles MD Work Phone: [facility] CI FMStart: 08-30-2024 End: 30-28-3279Ghpdwh Godwin Knowles MD Work Phone: [facility] CI FMStart: 08-30-2024 End: 62-96-1572Midjjt outpatient visit 25 minutesDagregorio Knowles MD Work Phone: [facility] CI FMComment on above:Dysarthria (Primary Dx); Cerebrovascular accident (CVA), unspecified mechanism (CMS/HCC); Spinal stenosis of lumbar region with neurogenic claudication; Mixed hyperlipidemia (CMS/HCC)Start: 08-30-2024 End: 03-29-1657gqgyaiyrnhRBSZHN B BERRYNot AvailableStart: 08-24-2024 End: 96-80-7676Tvxornmpc encounterRobert Curry MD Work Phone: [facility] Internal MedicineComment on above:ResultsStart: 08-23-2024 End: 10-03-0031xjgzocmdxwKWIDYJ HARRISNot AvailableStart: 08-17-2024 End: 16-18-3869VfjfrdXofcxg B Berry MD Work Phone: [facility] CI FMComment on above:Cervical stenosis of spinal canalStart: 08-15-2024 End: 09-91-2153Btpjxnrqy encounterSahra Hernandez Physicians Neurology Comment on above:NEW PATIENT REFERRALStart: 08-10-2024 End: 37-91-2182hwevcaknelATIMRM B BERRYMetroHealth Cleveland Heights Medical Centertart: 07-20-2024 End: 73-18-5255IppdztFvufi Dukles LPNNBARBARA CI FMComment on above:Cervical stenosis of spinal canalStart: 07-19-2024 End: 76-57-5940UwwnwpMaokvi M Shively NP Work Phone: [facility] CI FMComment on above:Parotiditis; ThrushStart: 07-12-2024 End: 85-92-0930Gehvkv flowsMelba Knowles MD Work Phone: [facility] CI FMStart: 07-12-2024 End: 08-83-5522Qrchhy flowsMelba Knowles MD Work Phone: [facility] CI FMStart: 07-12-2024 End: 42-78-7487Booymhvii encounterMono Knowles MD Work Phone: [facility] CI FMComment on above:Med RefillStart: 07-12-2024 End: 75-76-6472Tybphv outpatient visit 25 minutesDagregorio Knowles MD Work Phone: [facility] CI FMComment on above:Chest discomfort (Primary Dx); Costochondritis, acute; Pain of right thigh; Lumbar herniated disc; Right lumbar radiculopathyStart: 07-11-2024 End: 16-18-2497Wjgxeqmhu Result EncounterMono Knowles MD Work Phone: [phone] External Department UnsolicitedStart: 07-11-2024 End: 39-09-5021Jkqpearle Result EncounterMono Knowles MD Work Phone: [facility] External Department UnsolicitedStart: 06-29-2024 End: 46-30-4036SnzlryTyylng B Berry MD Work Phone: [facility] CI FMComment on above:AnxietyStart: 06-26-2024 End: 58-01-1669Lomcniwbhkli care manage srvc 14 day dischargeDsunni Knowles MD Work Phone: [facility] CI FMComment on above:Syncope, unspecified syncope type (Primary Dx); Pain of right thigh; Lumbar herniated disc; Right lumbar radiculopathy; Vertigo; Chest discomfortStart: 06-22-2024 End: 00-26-1221EqidnkOkiel Wednesday SOLAR THERMAL TECHNICIAN Work Phone: [facility] CI FMComment on above:Cervical stenosis of spinal canalStart: 06-21-2024 End: 62-69-4615Keubycixf Result EncounterGeneric External Data ProviderNOMS External Department UnsolicitedStart: 06-21-2024 End: 50-86-9727Axihrikvm Result EncounterGeneric External Data ProviderNOMS External Department UnsolicitedStart: 05-29-2024 End: 24-58-2065Hturfulrw encounterMono Knowles MD Work Phone: [facility] CI FMStart: 05-24-2024 End: 78-52-0634Kwfsbk Soto Ray CUT PLUG PACKER Work Phone: [facility] CI FMStart: 05-24-2024 End: 53-98-0063Wetpvw Soto Ray CUT PLUG PACKER Work Phone: [facility] CI FMStart: 05-24-2024 End: 78-60-5848Moolxf outpatient visit 25 minutesShlashonda Ray CUT PLUG PACKER Work Phone: [facility] CI FMComment on above:Parotiditis (Primary Dx); Cervical stenosis of spinal canalStart: 05-10-2024 End: 45-49-2732Upzlne Godwin Knowles MD Work Phone: [facility] CI FMStart: 05-10-2024 End: 07-58-0883Acdfkm Godwin Knowles MD Work Phone: [facility] CI FMStart: 05-10-2024 End: 89-40-0429Nnucqz outpatient visit 25 minutesDagregorio Knowles MD Work Phone: [facility] CI FMComment on above:Subacute cough (Primary Dx); Acute bronchitis, unspecified organismStart: 04-25-2024 End: 99-38-9896OfcoboUtbu Jluis RNProMedica Physicians CardiologyComment on above:Med RefillStart: 12-09-2023 End: 58-30-6767Bgnryd outpatient visit 15 minutesRacheal Chi MD Work Phone: [facility] CardiologyComment on above:Benign essential hypertension (Primary Dx); Coronary artery disease involving [place] coronary artery of [place] heart without angina pectorisStart: 61-97-7953Xshpsvoxa encounterQuynh Bustillo CMA [facility] CardiologyStart: 39-94-2866Zavhzivkx encounterQuynh Bustillo CMAProMedica Physicians CardiologyStart: 19-22-5136Spdkengkm encounter Magalie SIMPSONroMedica Physicians CardiologyStart: 62-08-3023HherrcRixz Clark RNProMedica Physicians CardiologyComment on above:Med RefillStart: 10-27-2023 Jeremy Knowles MD Work Phone: [facility] CI FMStart: 43-56-5853Xnvejn flowsMelba Knowles MD Work Phone: [facility] CI FMStart: 10-27-2023 End: 39-86-5427Dzfyigq encounter statusMono Knowles MD Work Phone: [facility] Work Phone: Start: 10-27-2023 End: 05-34-2292Ruhwhsfq preventive med est patient 65yrs& olderMono Knowles MD Work Phone: [facility] CI FMComment on above:Wellness examination (Primary Dx); 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); Stented [...] Cervical stenosis of spinal canal; Right lumbar radiculopathyStart: 77-63-0945AfbrejPseonmjd Bialecki 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 Phone: [facility] CardiologyComment on above:Med RefillStart: 49-69-1339rywptrshbtCS DANIEL BERRYFacility:H1 Procedures DateProcedureProcedure DetailPerforming ClinicianStart: 08-01-9232Kyhpb hip unilateral with pelvis 2-3 viewsMattkishaw Yuly LOVELACE Work Phone: Start: 14-82-6103BWHMH CULTURE 2Generic External Data ProviderStart: 24-72-2030AAEPC CULTURE 1Generic External Data ProviderStart: 58-15-7381Gryzo of prostate specific antigen Mayur Knowles MD Work Phone: Start: 11-16-2024 End: 69-13-3615Wlirsw emg ea extremty w/paraspinl area completeChristopher Jossy DO Work Phone: Start: 24-36-8509JY JACOB PERF SPECT REST STRMono Knowles MD Work Phone: Start: 57-96-2695CLBCH CULTURE 2Generic External Data ProviderStart: 94-37-7017QKFZI CULTURE 1Generic External Data ProviderStart: 19-52-4690YyelllzzkbcNtmhhsee Rozinacarai 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 Phone: Plan of Treatment DateCare ActivityDetailAuthorStart: 66-59-8484Kdpuiwf ScreeningTobacco Screening ProMcentral alabama va [facility]geea Health SystemStart: 40-85-2292Vhtggrnaa for malignant neoplasm of colonColonoscopyProOhiohealth Hardin Memorial Hospitalca Health SystemStart: 62-36-4073Wdntfxp ScreeningTobacco ScreeningProOhiohealth Hardin Memorial Hospitalca [facility] SystemStart: 07-27-2025 End: 81-52-9161Vuqxsfz encounter xeatoqqlk62/14/2025 9:15 AM EST Office Visit [facility] [place] [address] [facility] [address] [place] [id number] Mono Knowles MD [address] [place] [address] [facility] [place] Br[facility] MedinceStart: 07-18-2025 End: 53-67-6289Hlepigq encounter gvaesxdbo45/05/2025 9:15 AM EST Office Visit [facility] [place] [facility] [address] [place] [id number] Mono Knowles MD [address] [place] [address] [facility] [place] [facility] MedinceStart: 07-10-2025 End: 56-41-4828Lzdkaph encounter procedureNOMS [facility] OrthopaedicsComment on above:Left leg pain (Primary Dx)Start: 07-04-2025 End: 34-00-0624Hptczdz encounter iyjoirozj23/22/2025 9:00 AM EDT Office Visit [facility] [place] [facility] [address] [place] [address] Mono Knowles MD [address] [place] [address] [facility] [place] [facility] MedinceStart: 06-25-2025 End: 95-98-5353Piybmjt encounter procedureNOMS [place] Brice MedinceComment on above:ArrivedStart: 06-21-2025 End: 79-32-8605Mtqpmls encounter fsehttiep23/09/2025 9:00 AM EDT Office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 previous fracture appears stable without evidence of loosening. He does not exhibit reproducible pain today with manipulation, and there are no signs or symptoms of infection. He has difficulty articulating his acute issue, often referring to a past traumatic injury that resulted in a femur fracture. At this time, he declines any further treatment and states just looking at his x-ray gave him a lot of peace knowing that his prior injury is well healed with stable hardware. 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 Clinical decision making: His significant other at the bedside was agreeable to return phone call for follow-up if those symptoms develop. Possible lumbar radiculopathy He exhibits symptoms suggestive of possible lumbar radiculopathy, which are triggered by prolonged standing and occasionally by activity. Diagnostic plan: A referral to pain management for further evaluation of a potential lumbar radicular process was discussed. Erectile dysfunction He also mentions symptoms of erectile dysfunction that have persisted since the accident. Medication prescribed to help for this has been too costly in the past and he has since given this up. When directly asked if this is his main concern, he states it is not, but wanted to mention it as it has been something that has affected him before his last . Limited mobility He reports that aquatic therapy has previously improved his leg condition, but he cannot remember the last time he participated in such therapy. He believes it was a few months ago, but there is no record of this in his medical history. Treatment plan: He was advised to resume aquatic therapy to enhance strength and stamina, considering his potential limited mobility. Questions answered in laymen terms at the bedside. The diagnosis, home exercise plan and any ongoing restrictions/ recommendations reviewed. If unable to be reached in office, I recommend evaluation at nearest Emergency Room if any symptoms worsened or new symptoms develop for requiring urgent evaluation. Visit was preformed using [employer]-spray pilot speech recognition. documented in this encounterSaint John's Breech [facility] Medical [id number] Telephone encounter Note* Telephone Encounter - ALBANIA Gardner - 07/09/2025 9:46 AM EDT OARRS reviewed, Rx sent into patient's pharmacy. [facility] [id number] Miscellaneous Notes* Telephone Encounter - ALBANIA Gardner - 07/09/2025 9:46 AM EDT OARRS reviewed, Rx sent into patient's pharmacy. * Telephone Encounter - Zee Alvarez - 07/09/2025 8:50 AM EDT HYDROcodone-acetaminophen ([place]) 10-325 MG tablet [facility] [place] documented in this encounterSaint John's Breech [facility] Medical [id number] Telephone encounter Note* Telephone Encounter - Zee Alvarez - 07/09/2025 8:50 AM EDT HYDROcodone-acetaminophen ([place]) 10-325 MG tablet [facility] [place] [facility] [id number] History of Present illness Narrative* Mono Knowles MD - 06/25/2025 11:30 AM EDT Images from the original note were not included. HPI Follow-up Additional comments: Admitted to [facility] 05/26/25 dx: TIA,HTN discharged from [facility] to [facility] discharged home 06/15/25 Last edited by Odalys Villagomez LPN on 06/25/2025 11:35 AM. Subjective Patient ID: Taj Ring is a 79 y.o. male who presents for Follow-up (Admitted to [facility] 05/26/25dx: TIA,HTN discharged from [facility] to [facility] discharged home 06/15/25 ) and Bronchitis. Flowsheet Row Patient Outreach from 06/19/2025 in [facility] with Shelby Millard LPN Hospital Information ED, Hospital or Halfway Facility Discharge? Halfway Facility Patient has been contacted within two business days of discharge Yes Have two attempts been made to contact the patient within two business days of being discharged? Yes Discharge Date 06/15/25 Discharged To: Home Setting Halfway Facilities [facility] Admission Date 05/30/25 Medications Discharge medications [...] mouth at bedtime 100 capsule 3 HYDROcodone-acetaminophen ([place]) 10-325 MG tablet Take 1 tablet by [...] EVERY MORNING, ONCE IN THE EVENING AND ONCEBEFORE BEDTIME 270 tablet 3 zolpidem (Ambien) 10 [...] (around 07/02/2025) for Recheck. documented in this encounterSaint John's Breech Regional Medical [id number] History of Present illness Narrative* Kami Thomason NP - 06/21/2025 9:00 AM EDT Images from the original note were not included. Subjective Patient ID: Taj Ring is a 79 y.o. male who presents for No chief complaint on file.. Taj presents today for a cough that had [...] EVERY MORNING, ONCE IN THE EVENING AND ONCEBEFORE BEDTIME 270 tablet 3 allopurinol (Zyloprim) 100 [...] mouth at bedtime 100 capsule 3 HYDROcodone-acetaminophen ([place]) 10-325 MG tablet Take 1 tablet by [...] at bedtime 30 tablet 2 [DISCONTINUED] HYDROcodone-acetaminophen ([place]) 10-325 MG tablet Take 1 tablet by [...] superimposed on stage 3a chronic kidney disease ([facility]) 09/20/2020 Antral ulcer 2016 Anxiety Arthritis CAD [...] No follow-ups on file. documented in this [facility]10-09-2025 Instructions* Patient Instructions* Kami Thomason NP - 06/21/2025 9:00 AM EDT Cefdinir is added today. Advised to start mucinex 600 mg bid while on the cefdinir. Continue benzonatate prn documented in this [facility]10-03-2025 Telephone encounter Note* Telephone Encounter - Zee Antonio - 06/15/2025 8:59 AM EDT HYDROcodone-acetaminophen ([place]) 10-325 MG tablet [facility] [place] [facility] [id number] Miscellaneous Notes* Telephone Encounter - Zee Alvarez - 06/15/2025 8:59 AM EDT HYDROcodone-acetaminophen ([place]) 10-325 MG tablet [facility] in [place] documented in this [facility]09-24-2025 Telephone encounter Note* Telephone Encounter - ALBANIA Gardner - 06/06/2025 9:[address] Knowles, they will need to speak to the medical director of hospice at the [facility]. Dr. Knowles does not have privileges there. [facility] [id number] Miscellaneous Notes* Telephone Encounter - ALBANIA Gardner - 06/06/2025 9:[address] Knowles, they will need to speak to the medical director of hospice at the [facility]. Dr. Knowles does not have privileges there. * Telephone Encounter - Zee Alvarez - 06/05/2025 1:20 PM EDT Patient is in [facility] for physical therapy but they need Dr. Knowles to call up there because they asked for them to release him because he is walking and talking really well. They said if he is already walking and everything is fine that the insurance will not pay for it. They asked for us to call the number [phone]. [facility] said that we have to ask for pablo on the 3rd floor nursing station. documented in this encounterSaint John's Breech Regional Medical [id number] Telephone encounter Note* Telephone Encounter - Zee Alvarez - 06/05/2025 1:20 PM EDT Patient is in [facility] for physical therapy but they need Dr. Knowles to call up there because they asked for them to release him because he is walking and talking really well. They said if he is already walking and everything is fine that the insurance will not pay for it. They asked for us to call the number [phone]. [facility] said that we have to ask for pablo on the 3rd floor nursing station. [facility] [id number] Miscellaneous Notes* Telephone Encounter - Shai Nelson RN - 05/26/2025 1:30 PM EDT NATHAN Vick from [facility] requesting medical records from ER visit 05/24/25. [facility] accessed and records faxed to [phone] documented in this encounterTrumbull [facility] Center09-13-2025 Telephone encounter Note* Telephone Encounter - Shai Nelson RN - 05/26/2025 1:30 PM EDT NATHAN Vick from [facility] requesting medical records from ER visit 05/24/25. [facility] accessed and records faxed to [phone] [facility]09-13-2025 Miscellaneous Notes* Telephone Encounter - Amparo Valle - 05/26/2025 12:36 PM EDT Contract: [facility] [phone] [facility] [phone] FAX Atthuma Vick Re all records from visit at [facility] 05/25 * Telephone Encounter - Amparo Valle - 05/26/2025 12:36 PM EDT Records sent to Attn: Nicanor for all records from visit to ED [facility] 05/24 documented in this encounterTrumbull Regional Medical Center09-13-2025 Telephone encounter Note* Telephone Encounter - Amparo Valle - 05/26/2025 12:36 PM EDT Contract: [facility] [phone] [facility] [phone] FAX Deedee Vick Re all records from visit at [facility] 05/25 [facility]09-13-2025 Telephone encounter Note* Telephone Encounter - Amparo Valle - 05/26/2025 12:36 PM EDT Records sent to Briana Vick for all records from visit to ED [facility] 05/24 [facility]09-02-2025 Telephone encounter Note* Telephone Encounter - ALBANIA Gardner - 05/15/2025 8:49 AM EDT Xanax already sent. [facility] [id number] Miscellaneous Notes* Telephone Encounter - ALBANIA Gardner - 05/15/2025 8:49 AM EDT Xanax already sent. documented in this [facility]09-02-2025 Telephone encounter Note* Telephone Encounter - ALBANIA Gardner - 05/15/2025 8:47 AM EDT OARRS reviewed, Rx sent into patient's pharmacy. [facility] [id number] Miscellaneous Notes* Telephone Encounter - ALBANIA Gardner - 05/15/2025 8:47 AM EDT OARRS reviewed, Rx sent into patient's pharmacy. documented in this [facility]08-27-2025 Telephone encounter Note* Telephone Encounter - ALBANIA Gardner - 05/09/2025 9:58 AM EDT OARRS reviewed, Rx sent into patient's pharmacy. [facility] [id number] Miscellaneous Notes* Telephone Encounter - ALBANIA Gardner - 05/09/2025 9:58 AM EDT OARRS reviewed, Rx sent into patient's pharmacy. * Telephone Encounter - Zee Alvarez - 05/09/2025 8:26 AM EDT HYDROcodone-acetaminophen ([place]) 10-325 MG tablet [facility] [place] documented in this [facility]08-27-2025 Telephone encounter Note* Telephone Encounter - Zee Alvarez - 05/09/2025 8:26 AM EDT HYDROcodone-acetaminophen ([place]) 10-325 MG tablet [facility] [place] [facility] [id number] Telephone encounter Note* Telephone Encounter - ALBANIA Gardner - 04/11/2025 3:27 PM EDT OARRS reviewed, Rx sent into patient's pharmacy. [facility] [id number] Miscellaneous Notes* Telephone Encounter - ALBANIA Gardner - 04/11/2025 3:27 PM EDT OARRS reviewed, Rx sent into patient's pharmacy. documented in this [facility]07-29-2025 Telephone encounter Note* Telephone Encounter - ALBANIA Gardner - 04/10/2025 4:07 PM EDT OARRS reviewed, Rx sent into patient's pharmacy. [facility] [id number] Miscellaneous Notes* Telephone Encounter - ALBANIA Gardner - 04/10/2025 4:07 PM EDT OARRS reviewed, Rx sent into patient's pharmacy. * Telephone Encounter - Zee Alvarez - 04/10/2025 3:11 PM EDT HYDROcodone-acetaminophen ([place]) 10-325 MG tablet [facility] [place] documented in this encounterSaint John's Breech [facility] Medical [id number] Telephone encounter Note* Telephone Encounter - Zee Alvarez - 04/10/2025 3:11 PM EDT HYDROcodone-acetaminophen ([place]) 10-325 MG tablet [facility] [place] [facility] [id number] Telephone encounter Note* Telephone Encounter - ALBANIA Gardner - 03/14/2025 1:47 PM EDT Received fax from [facility]. Last [place] Rx was post dated and filled on 03/13. The Rx recently sent [facility] before it is due. Will let it and send in a new script once the patient is due for the [place] to be refilled. [facility] [id number] Miscellaneous Notes* Telephone Encounter - ALBANIA Gardner - 03/14/2025 1:47 PM EDT Received fax from [facility]. Last [place] Rx was post dated and filled on 03/13. The Rx recently sent [facility] before it is due. Will let it and send in a new script once the patient is due for the [place] to be refilled. documented in this encounterSaint John's Breech Regional Medical [id number] Telephone encounter Note* Telephone Encounter - ALBANIA Gardner - 03/14/2025 1:05 PM EDT Carafate sent. [facility] [id number] Miscellaneous Notes* Telephone Encounter - ALBANIA Gardner - 03/14/2025 1:05 PM EDT Carafate sent. documented in this [facility]07-01-2025 Telephone encounter Note* Telephone Encounter - ALBANIA Gardner - 03/13/2025 4:36 PM EDT OARRS reviewed, Rx sent into patient's pharmacy. [facility] [id number] Miscellaneous Notes* Telephone Encounter - ALBANIA Gardner - 03/13/2025 4:36 PM EDT OARRS reviewed, Rx sent into patient's pharmacy. documented in this [facility]06-25-2025 History of Present illness Narrative* Mono Knowles MD - 03/07/2025 9:00 AM EDT Images from the original note were not included. HPI Follow-up Additional comments: Pain/controlled med Last edited by Odalys Villagomez LPN on 03/07/2025 8:46 AM. Subjective Patient ID: Taj Ring is a 79 y.o. male who presents for Follow-up (Pain/controlled med). Subjective Patient here for follow-up of elevated blood pressure. He is not exercising and is adherent to a low-salt diet. Blood pressure is well controlled at home. Cardiac symptoms: none. Patient denies: chest pain, dyspnea, and irregular heart beat. Subjective Taj Ring is a 77 y.o. male who returns [...] AT BEDTIME 30 tablet 0 [DISCONTINUED] HYDROcodone-acetaminophen ([place]) 10-325 MG tablet Take 1 tablet by [...] superimposed on stage 3a chronic kidney disease ([facility]) 09/20/2020 Antral ulcer 2016 Anxiety Arthritis CAD [...] stable since last assessment. No changes in treatmentare suggested at this time. Cervical stenosis of spinal canal - HYDROcodone-acetaminophen ([place]) 10-325 MG tablet; Take 1 tablet by mouth every 6 (six) hours ifneeded for severe pain Do not start before [...] 06/07/2025) for Routine F/U. documented in this encounterSaint John's Breech [facility] Medical [id number] History of Present illness Narrative* Mono Knowles MD - 02/28/2025 10:30 AM EDT Images from the original note were not included. Subjective Patient ID: Taj Ring is a 79 y.o. male who presents for wheezing. Taj is present today for evaluation of wheezing. [...] wheezing. EKG was done on 09/11/24 at [facility]. Over the past 2 weeks, how often [...] mouth at bedtime 100 capsule 3 HYDROcodone-acetaminophen ([place]) 10-325 MG tablet Take 1 tablet by [...] superimposed on stage 3a chronic kidney disease ([facility]) 09/20/2020 Antral ulcer 2016 Anxiety Arthritis CAD [...] or fail to improve. documented in this encounterSaint John's Breech [facility] Medical [id number] Telephone encounter Note* Telephone Encounter - ALBANIA Gardner - 02/14/2025 3:24 PM EDT OARRS reviewed, Rx sent into patient's pharmacy. [facility] [id number] Miscellaneous Notes* Telephone Encounter - ALBANIA Gardner - 02/14/2025 3:24 PM EDT OARRS reviewed, Rx sent into patient's pharmacy. documented in this encounterSaint John's Breech Regional Medical [id number] History of Present illness Narrative* Mono Knowles MD - 02/12/2025 9:00 AM EDT Images from the original note were not included. HPI Med Refill Additional comments: Hydrocodone, meclizine, colchicine--[facility] [place] Follow-up Additional comments: Pain/controlled med Results Additional comments: Labs 11/2024 Last edited by Odalys Villagomez LPN on 02/12/2025 9:07 AM. Subjective Patient ID: Taj Ring is a 79 y.o. male who presents for Med Refill (Hydrocodone, meclizine, colchicine--[facility] [place]), Follow-up (Pain/controlled med), Hypertension, and Results (Labs 11/2024). Subjective Patient here for follow-up of elevated blood pressure. He is not exercising and is adherent to a low-salt diet. Blood pressure is well controlled at home. Cardiac symptoms: none. Patient denies: chest pain, dyspnea, and irregular heart beat. Subjective Taj Ring is a 77 y.o. male who returns [...] and Wednesday. 30 capsule 0 [DISCONTINUED] HYDROcodone-acetaminophen ([place]) 10-325 MG tablet Take 1 tablet by [...] on stage 3a chronic kidney disease (HCC) ([facility]) 09/20/2020 Antral ulcer 2016 Anxiety Arthritis CAD (coronary artery disease) ([facility]) Colon polyp 2019 Confusion 09/16/2020 Constipation 09/28/2017 COVID-19 09/20/2020 Diverticulosis 2019 Gastritis 2019 Hiatal hernia 2019 History of gastric ulcer Hypertension ([facility]) Injury to penis 06/06/2021 Traumatic rhabdomyolysis ([facility]) 09/20/2020 Tubulovillous adenoma polyp of colon 2019 [...] mouth 3 (three) times a day as neededfor dizziness Cervical stenosis of spinal canal - HYDROcodone-acetaminophen ([place]) 10-325 MG tablet; Take 1 tablet by mouth every 6 (six) hours ifneeded for severe pain - Medication choice and [...] for Controlled Med Review. documented in this [facility]05-21-2025 Telephone encounter Note* [facility] - [employer] - 01/31/2025 1:05 PM EDT [facility]ien [facility] to [facility] [place] [facility] [id number] Miscellaneous Notes* Telephone Encounter - [facility] - 01/31/2025 1:05 PM EDT [facility]ien [facility] to [facility] [place] documented in this [facility]04-28-2025 Telephone encounter Note* Telephone Encounter - [facility] - 01/08/2025 1:31 PM EDT HYDROcodone-acetaminophen ([place]) 10-325 MG tablet [facility] [place] [facility] [id number] Miscellaneous Notes* Telephone Encounter - [employer] - 01/08/2025 1:31 PM EDT HYDROcodone-acetaminophen ([place]) 10-325 MG tablet [facility] [place] documented in this [facility]03-26-2025 History of Present illness Narrative* Mono Knowles MD - 12/06/2024 9:15 AM EDT Images from the original note were not included. HPI Med Refill Additional comments[facility] Last edited by Odalys Villagomez LPN on 12/06/2024 9:15 AM. Subjective : Chief Complaint: Taj Ring is an 79 y.o. male here for [...] mouth at bedtime 100 capsule 3 HYDROcodone-acetaminophen ([place]) 10-325 MG tablet Take 1 tablet by [...] Do you have a medical power of real estate attorney?: No Objective : BP 128/76 Pulse [...] Cervical stenosis of spinal canal - HYDROcodone-acetaminophen ([place]) 10-325 MG tablet; Take 1 tablet by mouth every 6 (six) hours ifneeded for severe pain Borderline abnormal TFTs - [...] hemorrhage Benign essential hypertension (CMS/HCC) 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) Stented coronary artery Right lumbar radiculopathy Cerebrovascular accident (CVA), unspecified mechanism (CMS/HCC) No orders of the defined types were placed in this encounter. Electronically signed by Mono Knowles MD on December 06, 2024 documented in this encounterSaint John's Breech Regional Medical [id number] Miscellaneous Notes* Telephone Encounter - Daisy Crandall - 12/04/2024 2:01 PM EDT Called patient to remind them to bring their most current copy of their medication list with them to their appt. Unable to reach due to voice mail not set up. documented in this encounterTrumbull Regional Medical Center03-24-2025 Telephone encounter Note* Telephone Encounter - Daisy Crandall - 12/04/2024 2:01 PM EDT Called patient to remind them to bring their most current copy of their medication list with them to their appt. Unable to reach due to voice mail not set up. [facility] [employer] [id number] History of Present illness Narrative* Malou Novak MA - 11/16/2024 12:00 PM EST Images from the original note were not included. Reason for Appointment: EMG Patient: Taj Ring : 1945 EMG Computer: boolino Referring Physician: Dr. Don Fenton EMG: [employer] wind tunnel mechanic: Malou Novak CMA Office Location: [place] Reason for EMG: c/o balance difficulty. Difficulty swallowing. Denies symptoms in the arms. No hx of DM, takes Eliquis. Comments: Procedure explained to the patient who expressed understanding. documented in this [facility]02-27-2025 Telephone encounter Note* Telephone Encounter - Zeesergio Alvarez - 11/09/2024 10:11 AM EST HYDROcodone-acetaminophen ([place]) 10-325 MG tablet [facility] [place] [facility] [id number] Miscellaneous Notes* Telephone Encounter - Zee Alvarez - 11/09/2024 10:11 AM EST HYDROcodone-acetaminophen ([place]) 10-325 MG [place] documented in this [facility]02-26-2025 History of Present illness Narrative* Don Fenton DO - 11/08/2024 2:30 PM EST Images from the original note were not included. Chief complaint: Spinal stenosis and language disturbance Subjective Taj Ring, 78 y.o., male Patient presents today for a neurologic consult at the request of Dr. Knowles for CVA, spinal stenosis. He is accompanied by his life partner. Patient is a resident at [facility]. Patient has his stroke May 19. 2023. [...] on stage 3a chronic kidney disease (HCC) ([facility]) 09/20/2020 Antral ulcer 2016 Anxiety Arthritis CAD (coronary artery disease) ([facility]) Colon polyp 2019 Confusion 09/16/2020 Constipation 09/28/2017 COVID-19 09/20/2020 Diverticulosis 2019 Gastritis 2019 Hiatal hernia 2019 History of gastric ulcer Hypertension ([facility]) Injury to penis 06/06/2021 Traumatic rhabdomyolysis ([facility]) 09/20/2020 Tubulovillous adenoma polyp of colon 2019 Past Surgical History: Procedure Laterality Date CATARACT EXTRACTION Right 01/2021 CERVICAL DISCECTOMY 08/16/2017 C4-C5 COLONOSCOPY 2010 COLONOSCOPY 01/27/2019 Colonoscopy & EGD-Coulter COLONOSCOPY W/ POLYPECTOMY 08/2020 Wiecek (tubulovillous adenoma) [...] , wrist extensors , wrist flexor , international exchange coordinator strength 5/5. LUE Strength deltoid , biceps , triceps , wrist extensors , wrist flexor , international exchange coordinator strength 5/5. RLE Strength illopsoas, quadriceps, tibialis [...] reflex 2+ . Ferrari's sign negative. Coordination: Psowyl-de-bhqj testing and rapid alternating movements are normal Gait: Patient ambulates with a cane Review and summary of old records: Patient was seen in the emergency department at [place] in October 06, [address] [...] given to a polyradicular neuropathy such as Guillain-Kendall syndrome. However, the patient's reflexes do seem [...] referral to tertiary care center such [facility] for further evaluationtreatment depending on results of the studies. History [...] emergency department right away with any potential life- threatening such signs and symptoms Spinal stenosis of [...] perspective of the patient need to return towhom he has his controlled substances agreement with an order for further recommendations regarding medication options. High-degree morbidity and mortality condition with the need for extensive records reviewed, extensive ongoing investigation and treatment. High-level medical decision-making. Pt has been fully educated on their diagnosis, lab results, treatment options, follow up plan, and return instructions documented in this encounterSaint John's Breech Regional Medical [id number] Telephone encounter Note* Telephone Encounter - Mono Knowles MD - 11/02/2024 12:38 PM EST Rx was sent. [facility] [id number] Miscellaneous Notes* Telephone Encounter - Mono Knowles MD - 11/02/2024 12:38 PM EST Rx was sent. * Telephone Encounter - Maida Harris - 11/01/2024 8:10 AM EST Pt states that he is wheezing really bad. He needs something for his chest. They'd like it sent to jessica Caputo documented in this encounterNOSalem Memorial District [id number] Telephone encounter Note* Telephone Encounter - Maida Harris - 11/01/2024 8:10 AM EST Pt states that he is wheezing really bad. He needs something for his chest. They'd like it sent to jessica Caputo [facility] [id number] Telephone encounter Note* Telephone Encounter - Veronika Sanchez - 10/31/2024 12:45 PM EST NCNS for PT Eval; 3 attempt. [facility] [id number] Miscellaneous Notes* Telephone Encounter - Veronika Sanchez - 10/31/2024 12:45 PM EST [facility] for PT Eval; 3 attempt. * Telephone Encounter - Veronika Sanchez - 10/31/2024 10:13 AM EST Tried to contact to remind / confirm PT Eval today that is on its' 3rd attempt; 2 & 10/26 bothwere cx. It rang into voicemail and indicated not set up; unable to contact. documented in this [facility]02-18-2025 Telephone encounter Note* Telephone Encounter - Veronika Sanchez - 10/31/2024 10:13 AM EST Tried to contact to remind / confirm PT Eval today that is on its' 3rd attempt; 2 & 10/26 bothwere cx. It rang into voicemail and indicated not set up; unable to contact. [facility] [id number] Telephone encounter Note* Telephone Encounter - ALBANIA Gardner - 10/25/2024 1:29 PM EST OARRS reviewed, Rx sent into patient's pharmacy. [facility] [id number] Miscellaneous Notes* Telephone Encounter - ALBANIA Gardner - 10/25/2024 1:29 PM EST OARRS reviewed, Rx sent into patient's pharmacy. documented in this [facility]02-08-2025 Miscellaneous Notes* Telephone Encounter - Alyssa Aceves RN - 10/21/2024 10:51 AM EST OV 12/09/23 documented in this [facility]02-08-2025 Telephone encounter Note* Telephone Encounter - Alyssa Aceves RN - 10/21/2024 10:51 AM EST OV 12/09/23 [facility]02-06-2025 Telephone encounter Note* Telephone Encounter - Veronika Sanchez - 10/19/2024 10:44 AM EST Contacted re: SHANNAN for PT Eval and he rs 2/13 @ 11 w/ Kevin Renteria, PT. [facility] [id number] Miscellaneous Notes* Telephone Encounter - Veronika Sanchez - 10/19/2024 10:44 AM EST Contacted re: KATHINS for PT Eval and he rs 213 @ 11 w/ Kevin Renteria, PT. * Telephone Encounter - Veronika Sanchez - 10/16/2024 8:31 AM EST Tried to contact re: KATHINS for his PT Eval; unable to lm re: no voicemail set-up. documented in this encounterSaint John's Breech Regional Medical [id number] Telephone encounter Note* Telephone Encounter - Veronika Sanchez - 10/16/2024 8:31 AM EST Tried to contact re: KATHINS for his PT Eval; unable to lm re: no voicemail set-up. [facility] [id number] History of Present illness Narrative* Mono Knowles MD - 10/09/2024 11:30 AM EST Images from the original note were not included. HPI Follow-up Additional comments: Pain med Med Refill Additional comments: Hydrocodone--kroger gavint observation follow up Additional comments: Pt was admitted to [facility] 10/06/24 for observation for leg weakness they discharged him home 10/07/24 no med changes they advised pt he may need an MRI discuss changing referrals Additional comments: Pt was referred to neuro through [facility] and speech therapy [facility] he does not want to use any [facility] providers he would like new referrals sent to use [place] locations Last edited by Odalys Villagomez LPN on 10/09/2024 11:25 AM. Subjective Patient ID: Taj Ring is a 78 y.o. male who presents for Follow-up (Pain med), Dysphagia, Med Refill (Hydrocodone--[facility]), observation follow up (Pt was admitted to [facility] 10/06/24 for observation for leg weakness they discharged him home 10/07/24 no med changes they advised pt he may need an MRI), and discuss changing referrals (Pt was referred to neuro through [facility] and speech therapy through [facility] he does not want to use any [facility] providers he would like new referralssent to use [facility]). Subjective Patient here for follow-up of elevated blood pressure. He is not exercising and is adherent to a low-salt diet. Blood pressure is well controlled at home. Cardiac symptoms: none. Patient denies: chest pain, dyspnea, and irregular heart beat. Subjective Taj Rign is a 77 y.o. male who returns [...] at bedtime 30 tablet 2 [DISCONTINUED] HYDROcodone-acetaminophen ([place]) 10-325 MG tablet Take 1 tablet by [...] on stage 3a chronic kidney disease (HCC) ([facility]) 09/20/2020 Antral ulcer 2016 Anxiety Arthritis CAD (coronary artery disease) ([facility]) Colon polyp 2019 Confusion 09/16/2020 Constipation 09/28/2017 [...] Cervical stenosis of spinal canal - HYDROcodone-acetaminophen ([place]) 10-325 MG tablet; Take 1 tablet by mouth every 6 (six) hours ifneeded for severe pain Spinal stenosis of lumbar region with neurogenic claudication - Ambulatory referral to Physical Therapy; Future - Ambulatory referral to Neurology; Future Follow up in about 6 weeks (around 11/20/2024) for Routine F/U. documented in this encounterSaint John's Breech Regional Medical [id number] History of Present illness Narrative* ALBANIA Gardner - 09/22/2024 8:30 AM EST Images from the original note were not included. HPI ER Follow-up Additional comments: Went to er due to weakness [place] [facility] Last edited by Summer Kay MA on 09/22/2024 7:29 AM. Subjective Patient ID: Taj Ring is a 78 y.o. male who presents for ER Follow-up (Went to er due to weakness 09/14/24 [place] [facility]). Pt went to Er due to weakness dizziness and being unbalanced , they did do labs, and DI testing Pt girlfriend stated he is needing labwork to see how his kidneys are doing , [facility] stated [facility] [...] Flowsheet Row Patient Outreach from 09/19/2024 in [facility] with Karol Wednesday, SOLAR THERMAL TECHNICIAN Hospital Information ED, Hospital or Halfway Facility Discharge? ED Patient has been contacted within 1 week of being seen in the ED Yes Diagnosis generalized weakness Discharge Date 09/14/24 Discharged To: Home Setting Discharge Hospital [facility] Engagement Call Start Time 08 Admission Date [...] mouth at bedtime 100 capsule 3 HYDROcodone-acetaminophen ([place]) 10-325 MG tablet Take 1 tablet by [...] before bedtime. 60 tablet 3 [DISCONTINUED] HYDROcodone-acetaminophen ([place]) 10-325 MG tablet Take 1 tablet by [...] C4-C5 COLONOSCOPY 2010 COLONOSCOPY 01/27/2019 Colonoscopy & EGD-Coulter COLONOSCOPY W/ POLYPECTOMY 08/2020 Wiecek (tubulovillous adenoma) [...] kidney function with BMP today. Will notify ptof results once received. He is feeling much better and walking well. Energy level has improved. Stage 3b chronic kidney disease (HCC) (CMS/HCC) - Basic metabolic panel; Future See above. Benign essential hypertension (CMS/HCC) - Basic metabolic panel; Future Patient's blood pressure is currently well controlled. Continue with current medications and I willcontinue to monitor. Goal BP remains less than 130/80. The patient was seen today in follow up of recent hospital ER visit. All available hospital records/labs/diagnostics were reviewed and discussed with the patient. ER discharge meds were reviewed. Anychanges to plan are noted above. Follow up for Appointment As Scheduled. documented in this encounterSaint John's Breech Regional Medical [id number] NoteXR CHEST 1 VW CLINICAL INFORMATION: . weakness. TECHNIQUE/PROCEDURE: Chest radiograph, single view. COMPARISON: Prior chest radiographs, most recently 08/10/2024 FINDINGS: No tracheal deviation. Cardiac and mediastinal contours are normal. No pneumothorax or free air. Nopleural effusion or focal consolidation. IMPRESSION: * No radiographic evidence of acute cardiopulmonary disease. Finalized by William Javier MD on 09/14/2024 12:14 [facility] 08-31-2024 Telephone encounter Note* Telephone Encounter - Mono Knowles MD - 08/31/2024 12:10 PM EST Rx sent. [facility] [id number] Miscellaneous Notes* Telephone Encounter - Mono Knowles MD - 08/31/2024 12:10 PM EST Rx sent. documented in this [facility]12-19-2024 History of Present illness Narrative* Karol Joyner LPN - 08/31/2024 8:12 AM EST [facility] called this morning. Pt is wheezing and coughing and was up all night coughing. She is asking if you could send something in for pt to help with this wheezing and coughing issue. Jessica in [place]. He does not want to go to ER. She states pt talked with you about it at his appt the other day. documented in this encounterSaint John's Breech Regional Medical [id number] History of Present illness Narrative* Mono Knowles MD - 08/30/2024 9:15 AM EST Images from the original note were not included. HPI Follow-up Additional comments: Recent hospitalization 08/10/24-08/12/24 at [facility] dx: CVA discharged home advised to stop ASA Med Refill Additional comments: Gabapentin--[facility] Results Additional comments: Both MRI's Last edited by Odalys Villagomez LPN on 08/30/2024 9:28 AM. Subjective Patient ID: Taj Ring is a 78 y.o. male who presents for Follow-up (Recent hospitalization 08/10/24-08/12/24 at [facility] dx: CVA discharged home advised to stop ASA), Med Refill (Gabapentin--[facility]), Dysphagia, and Results (Both MRI's). Flowsheet Row Patient Outreach from 08/15/2024 in [facility] with Karol Joyner LPN Hospital Information ED, Hospital or Halfway Facility Discharge? Hospital Patient has been contacted within two business days of discharge Yes Diagnosis CVA Discharge Date 08/12/24 Discharged To: Home Setting Discharge Hospital [facility] Engagement Call Start Time 904 Admission [...] completed medication regime)? Yes Medication Comments Per [facility], pt did not leave the hospital with [...] mouth at bedtime 100 capsule 3 HYDROcodone-acetaminophen ([place]) 10-325 MG tablet Take 1 tablet by [...] INSTRUCTIONS 21 tablet 0 [DISCONTINUED] nystatin (Mycostatin) 298209 UNIT/ML suspension SWISH AND SWALLOW FIVE MILLILITERS [...] on stage 3a chronic kidney disease (HCC) ([facility]) 09/20/2020 Antral ulcer 2016 Anxiety Arthritis CAD (coronary artery disease) ([facility]) Colon polyp 2019 Confusion 09/16/2020 Constipation 09/28/2017 COVID-19 09/20/2020 Diverticulosis 2019 Gastritis 2019 Hiatal hernia 2019 History of gastric ulcer Hypertension ([facility]) Injury to penis 06/06/2021 Traumatic rhabdomyolysis ([facility]) 09/20/2020 Tubulovillous adenoma polyp of colon 2019 [...] 10/31/2024) for Routine F/U. documented in this encounterSaint John's Breech Regional Medical [id number] Miscellaneous Notes* Telephone Encounter - Rboert Curry MD - 08/24/2024 12:51 PM EST Patient was admitted under our service at [facility] the week of August 10. At the time, blood work had showed mildly elevated lead level. Since then. I have made numerous attempts to contactthe patient but call was not answered. Please reach out to the patient and let him know about this elevated let level and I have ordered a repeat level. He should also follow up with his PCP for this. * Telephone Encounter - Lovely Valdivia CMA - 08/24/2024 12:51 PM EST Attempted to contact the patient, phone rang once and then is stated that voicemail box has not been set up . Letter has been composed and mailed to the patient informing him of his results and the recommendation for a repeat lab order. School Teacher also attempted to contact the patient's PC Dr Mono Knowles at [phone] who is a providerat [facility]. The phone rang and then it stated the number that you are calling is not in service at this time . Emergency contact listed is his spouse and the same phone number is listed for her also. * Telephone Encounter - Robert Curry MD - 08/24/2024 12:51 PM EST Thank you so much for doing this. documented in this encounterTrumbull [facility] Medical Center12-12-2024 Telephone encounter Note* Telephone Encounter - Robert Curry MD - 08/24/2024 12:51 PM EST Patient was admitted under our service at [facility] the week of August 10. At the time, blood work had showed mildly elevated lead level. Since then. I have made numerous attempts to contactthe patient but call was not answered. Please reach out to the patient and let him know about this elevated let level and I have ordered a repeat level. He should also follow up with his PCP for this. [facility]12-12-2024 Telephone encounter Note* Telephone Encounter - Lovely Valdivia CMA - 08/24/2024 12:51 PM EST Attempted to contact the patient, phone rang once and then is stated that voicemail box has not been set up . Letter has been composed and mailed to the patient informing him of his results and the recommendation for a repeat lab order. School Teacher also attempted to contact the patient's PC Dr Mono Knowles at [phone] [facility]. The phone rang and then it stated the number that you are calling is not in service at this time . Emergency contact listed is his spouse and the same phone number is listed for her also. [facility]12-12-2024 Telephone encounter Note* Telephone Encounter - Robert Curry MD - 08/24/2024 12:51 PM EST Thank you so much for doing this. [facility]12-05-2024 Telephone encounter Note* Telephone Encounter - ALBANIA Gardner - 08/17/2024 3:12 PM EST OARRS reviewed, Rx sent into patient's pharmacy. [facility] [id number] Miscellaneous Notes* Telephone Encounter - ALBANIA Gardner - 08/17/2024 3:12 PM EST OARRS reviewed, Rx sent into patient's pharmacy. * Telephone Encounter - Maida Harris - 08/17/2024 2:34 PM EST HYDROcodone-acetaminophen ([place]) 10-325 MG tablet pt's partner called concerned about the refill being sent in. Stated she spoke with Karol about it. Jessica Caputo documented in this encounterSaint John's Breech Regional Medical [id number] Telephone encounter Note* Telephone Encounter - Maida Harris - 08/17/2024 2:34 PM EST HYDROcodone-acetaminophen ([place]) 10-325 MG tablet pt's partner called concerned about the refill being sent in. Stated she spoke with Karol about it. Jessica Caputo [facility] [id number] Miscellaneous Notes* Telephone Encounter - Sahra Richardson - 08/15/2024 9:19 AM EST Workqueue referral for stroke clinic New patient [...] INSURANCE INFORMATION TO THEIR NEW PATIENT APPOINTMENT * Telephone Encounter - Shaina Yeh - 08/15/2024 9:19 AM EST 1st attempt: School Teacher attempted to contact patient and offer to schedule in with our clinic as we have received their new patient referral. School Teacher received an automated message stating the following: patient's voicemail box has not been set up yet. * Telephone Encounter - Shaina Yeh - 08/15/2024 9:19 AM EST 2nd attempt: School Teacher attempted to contact patient once more and offer to schedule in with our clinicas we have received their new patient referral. School Teacher received an automated message stating the following: patient's voicemail box has not been set up yet. documented in this encounterTrumbull Regional Medical Center12-03-2024 Telephone encounter Note* Telephone Encounter - Sahra Richardson - 08/15/2024 9:19 AM EST Workqueue referral for stroke clinic New patient [...] INSURANCE INFORMATION TO THEIR NEW PATIENT APPOINTMENT [facility]12-03-2024 Telephone encounter Note* Telephone Encounter - Shainahuma Yeh - 08/15/2024 9:19 AM EST 1st attempt: School Teacher attempted to contact patient and offer to schedule in with our clinic as we have received their new patient referral. School Teacher received an automated message stating the following: patient's voicemail box has not been set up yet. [facility] [id number] Telephone encounter Note* Telephone Encounter - Shaina Yeh - 08/15/2024 9:19 AM EST 2nd attempt: School Teacher attempted to contact patient once more and offer to schedule in with our clinicas we have received their new patient referral. School Teacher received an automated message stating the following: patient's voicemail box has not been set up yet. [facility]11-07-2024 Telephone encounter Note* Telephone Encounter - ALBANIA Gardner - 07/20/2024 9:39 AM EST OARRS reviewed, Rx sent into patient's pharmacy. [facility] [id number] Miscellaneous Notes* Telephone Encounter - ALBANIA Gardner - 07/20/2024 9:39 AM EST OARRS reviewed, Rx sent into patient's pharmacy. documented in this encounterSaint John's Breech [facility] Medical [id number] Telephone encounter Note* Telephone Encounter - Summer Kay MA - 07/19/2024 11:55 AM EST Is the medrol arnie ok to give pt [facility] [id number] Miscellaneous Notes* Telephone Encounter - Summer Kay MA - 07/19/2024 11:55 AM EST Is the medrol arnie ok to give pt documented in this [facility]10-30-2024 Telephone encounter Note* Telephone Encounter - Zee Alvarez - 07/12/2024 11:52 AM EDT Celebrex sent to [facility] [place] [facility] [id number] Miscellaneous Notes* Telephone Encounter - Zee Alvarez - 07/12/2024 11:52 AM EDT Celebrex sent to silvi[facility]iguel [place] documented in this encounterSaint John's Breech [facility] Medical [id number] History of Present illness Narrative* Mono Knowles MD - 07/12/2024 11:00 AM EDT Images from the original note were not included. HPI Results Additional comments: Stress test results Med Refill Additional comments: Gabapentin-- [facility] Last edited by Odalys Villagomez LPN on 07/12/2024 10:14 AM. Subjective Patient ID: Taj Ring is a 78 y.o. male who presents for Results (Stress test results) and Med Refill (Gabapentin-- jessica caputo). Subjective Patient here for follow-up of elevated blood pressure. He is not exercising and is adherent to a low-salt diet. Blood pressure is well controlled at home. Cardiac symptoms: none. Patient denies: chest pain, dyspnea, and irregular heart beat. Subjective Taj Ring is a 77 y.o. male who returns [...] BY MOUTH DAILY 100 tablet 3 HYDROcodone-acetaminophen ([place]) 10-325 MG tablet Take 1 tablet by [...] on stage 3a chronic kidney disease (HCC) ([facility]) 09/20/2020 Antral ulcer 2016 Anxiety Arthritis CAD (coronary artery disease) ([facility]) Colon polyp 2019 Confusion 09/16/2020 Constipation 09/28/2017 [...] 09/11/2024) for Routine F/U. documented in this [facility]10-17-2024 Telephone encounter Note* Telephone Encounter - Maida Harris - 06/29/2024 1:33 PM EDT ALPRAZolam (Xanax) 1 MG tablet to [facility] [id number] Miscellaneous Notes* Telephone Encounter - Maida Harris - 06/29/2024 1:33 PM EDT ALPRAZolam (Xanax) 1 MG tablet to [facility] documented in this [facility]10-14-2024 History of Present illness Narrative* Mono Knowles MD - 06/26/2024 9:30 AM EDT Images from the original note were not included. M HPI Follow-up Additional comments: Admitted [facility] 06/21/24 dx: syncope,suspected cva .hypotension discharged home 06/22/24 no med changes made Med Refill Additional comments: Gabapentin.meclizine-- [facility] Last edited by Odalys Villagomez LPN on 06/26/2024 9:36 AM. Subjective Patient ID: Taj Ring is a 78 y.o. male who presents for Follow-up (Admitted [facility] 06/21/24 dx: syncope,suspected cva .hypotension discharged home 06/22/24 no med changes made) and Med Refill (Gabapentin.meclizine-- [facility]). Flowsheet Row Patient Outreach from 06/23/2024 in [facility] with Karol ArELAINE granados Hospital Information ED, Hospital or Halfway Facility Discharge? Hospital Patient has been contacted within two business days of discharge Yes Discharge Date 06/22/24 Discharged To: Home Setting Discharge Hospital [facility] Engagement Call Start Time 1330 Admission [...] BY MOUTH DAILY 100 tablet 3 HYDROcodone-acetaminophen ([place]) 10-325 MG tablet Take 1 tablet by [...] at bedtime. 90 capsule 3 [DISCONTINUED] HYDROcodone-acetaminophen ([place]) 10-325 MG tablet Take 1 tablet by [...] on stage 3a chronic kidney disease (HCC) ([facility]) 09/20/2020 Antral ulcer 2016 Anxiety Arthritis CAD (coronary artery disease) ([facility]) Colon polyp 2019 Confusion 09/16/2020 Constipation 09/28/2017 [...] mouth 3 (three) times a day as neededfor dizziness Chest discomfort - STRESS NUCLEAR MEDICINE LEXISCAN; Future Follow up in about 2 weeks (around 07/10/2024) for Test/Lab Review. documented in this [facility]10-10-2024 Telephone encounter Note* Telephone Encounter - ALBANIA Gardner - 06/22/2024 10:05 AM EDT OARRS reviewed, Rx sent into patient's pharmacy. [facility] [id number] Miscellaneous Notes* Telephone Encounter - ALBANIA Gardner - 06/22/2024 10:05 AM EDT OARRS reviewed, Rx sent into patient's pharmacy. documented in this [facility]09-16-2024 Telephone encounter Note* Telephone Encounter - Zee Alvarez - 05/29/2024 8:21 AM EDT Patient is still having issues with his throat. He saw yvette last week and his throat is still is pain and it hurts to swallow. They wondered if something could be called into [facility] pharmacy. [facility] [id number] Miscellaneous Notes* Telephone Encounter - Zee Alvarez - 05/29/2024 8:21 AM EDT Patient is still having issues with his throat. He saw yvette last week and his throat is still is pain and it hurts to swallow. They wondered if something could be called into [facility] pharmacy. documented in this encounterSaint [facility] [id number] History of Present illness Narrative* Yvette Ray, C[employer] PL[employer] P[employer]ER - 05/24/2024 9:00 AM EDT Images from the original note were not included. Subjective Patient ID: Taj Ring is a 78 y.o. male who presents [...] mouth at bedtime. 90 capsule 3 HYDROcodone-acetaminophen ([place]) 10-325 MG tablet Take 1 tablet by [...] on stage 3a chronic kidney disease (HCC) ([facility]) 09/20/2020 Antral ulcer 2016 Anxiety Arthritis CAD (coronary artery disease) ([facility]) Colon polyp 2019 Confusion 09/16/2020 Constipation 09/28/2017 COVID-19 09/20/2020 Diverticulosis 2019 Gastritis 2019 Hiatal hernia 2019 History of gastric ulcer Hypertension ([facility]) Injury to penis 06/06/2021 Traumatic rhabdomyolysis (CMS/HCC) 09/20/2020 Tubulovillous adenoma polyp of colon 2019 Past Surgical History: Procedure Laterality Date CATARACT EXTRACTION Right 01/2021 CERVICAL DISCECTOMY 08/16/2017 C4-C5 COLONOSCOPY 2010 COLONOSCOPY 01/27/2019 Colonoscopy & EGD-Coulter COLONOSCOPY W/ POLYPECTOMY 08/2020 [place] (tubulovillous adenoma) [...] back to the office for further treatment.Patient isto begin taking the antibiotic today as prescribed. [...] for any black as this may be asigns of a bleed. If this should occur, stop steroid and call office. Cervical stenosis of spinal canal - HYDROcodone-acetaminophen ([place]) 10-325 MG tablet; Take 1 tablet by mouth every 6 (six) hours ifneeded for severe pain Medication choice and dosage is appropriate for patient's current medical conditions. Patient will continue to be required to be seen in our office at least every three months for monitoring. At eachfollow up visit I will reassess the patient's need for the medication. Patient is to have this medication prescribed only through this office. Failure to follow the rules and regulations will result in tapering and discontinuation of medications if applicable. Patient verbalized understanding. OARRS Report was reviewed for this patient. No follow-ups on file. documented in this encounterSaint [facility] [id number] History of Present illness Narrative* Norma Jin MD - 11/01/2024 9:20 AM EST Subjective Patient ID: Taj Ring is a 78 y.o. male who presents for Dysphagia Pt reports after being hospitalized for Covid Sep '24 he developed difficulty walking and talking. Pt states he has has difficulty initiation his swallowing. Has trouble with liquids and solids. Hospitalized in Sep at [facility] with apparent CVA. Has not yet [...] esophagitis without hemorrhage 01/19/2023 Gout 01/19/2023 Hyperlipidemia ([facility]) 12/26/2013 Hypocalcemia 01/19/2023 Lumbar herniated disc 01/19/2023 Obesity (BMI 30-39.9) 01/19/2023 Osteoarthrosis 10/10/2008 Other chronic pain 01/19/2023 Pain of right thigh 01/19/2023 Stage 3b chronic kidney disease (HCC) ([facility]) 01/19/2023 Atherosclerosis of [place] coronary artery of [place] heart with stable angina pectoris ([facility]) 12/26/2013 Benign prostatic hyperplasia without lower urinary tract symptoms 06/06/2021 Chronic postoperative pain 09/21/2016 Duodenal diverticulum 09/18/2022 Personal history of other diseases of the digestive system 07/12/2020 History of colonic polyps 04/26/2019 History of stomach ulcers 09/18/2022 Stented coronary artery 09/22/2013 Cervical osteoarthritis 12/27/2014 Arthritis 09/18/2022 History of myocardial infarct at age greater than 60 years ([facility]) 02/03/2023 Right lumbar radiculopathy 07/26/2023 Irritable bowel syndrome with constipation 10/27/2023 Cerebrovascular accident (CVA) ([facility]) 08/10/2024 Dizziness 10/06/2024 Resolved Ambulatory Problems Diagnosis Date Noted Occlusive coronary artery disease ([facility]) 12/26/2013 Acute renal failure superimposed on stage 3a chronic kidney disease (HCC) ([facility]) 09/20/2020 Balanitis 06/06/2021 Chest pain 01/23/2017 Confusion 09/16/2020 Constipation 09/28/2017 COVID-19 09/20/2020 Diverticulosis 09/18/2022 HTN (hypertension) ([facility])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 [address] [place] [address] PCP - [place]09/13/21 Mono Knowles MD [address] [place] [address] PCP - GeneralInternal Medicine03/01/23Team MemberRelationshipSpecialtyStart Date End Date Mono Knowles MD [address] [place] [address] PCP - [place] MARK09/13/21 Mono Knowles MD [address] [place] [address] PCP - GeneralInternal Medicine03/01/23Team MemberRelationshipSpecialtyStart Date End Date Mono Knowles MD [address] [place] [address] PCP - [place]09/13/21 Mono Knowles MD [address] [place] [address] PCP - GeneralInternal Medicine03/01/23Team MemberRelationshipSpecialtyStart Date End Date Mono Knowles MD [address] [place] [address] PCP - [place]09/13/21 Mono Knowles MD [address] [place] [address] PCP - GeneralInternal Medicine03/01/23Te MemberRelationshipSpecialtyStart Date End Date Mono Knowles MD [address] [place] [address] PCP - Jonathan [place]09/13/21 Mono Knowles MD [address] [place] [address] PCP - GeneralInternal Medicine03/01/23Te MemberRelationshipSpecialtyStart Date End Date Mono Knowles MD [address] [place] [address] PCP - [place]09/13/21 Mono Knowles MD [address] [place] [address] PCP - GeneralInternal Medicine03/01/23 Summer Velazquez, JOAN [address] [place] [address] Clinical AdvocateFamily Medicine Ruth Johnston LPN [address] [facility] [address] [place] [address] Team MemberRelationshipSpecialtyStart DateEnd Date Mono Knowles MD [address] [facility] [address] [place] [address] PCP - Jonathan FLORES09/13/21 Mono Knowles MD [address] [facility] [address] [place] [address] PCP - GeneralInternal Medicine03/01/23 Reason for Visit (unrecogniz ed section and content) ReasonCommentsMedicare Annual Wellness Visit SubsequentConstipationPt has been having issues with constipation he went to ER twice recently pt states he has samples of linzess at home he is going to use--he has also started having dizziness with this as wellReasonOnset DateCommentsMed [id number] CommentsFollow-upAdmitted [facility] 06/21/24 dx: syncope,suspected cva .hypotension discharged home 06/22/24 no med changesmadeMed RefillGabapentin.meclizine-- [facility] fremontReasonCommentsResultsStress test resultsMed RefillGabapentin-- [facility]ger fremontReasonOnset DateCommentsMed [id number] RefillReasonOnset DateCommentsMed [id number]w-upRecent hospitalization 08/10/24-08/12/24 at [facility] dx: CVA discharged home advised to stop ASAMed RefillGabapentin--kroger fremontDysphagiaResultsBoth MRI'sReasonComments Follow-upPAIN MEDChest PainFOLLOW UPReasonCommentsAllergic ReactionReasonOnset DateCommentsMed Bwqzwt4609/20/2024ReasonCommentsER Follow-upWent to er due to weakness 09/14/24 [place]ReasonCommentsFollow-upPain medDysphagiaMed RefillHydrocodone--kroger fremontobservation follow upPt was admitted to [facility] 10/06/24 for observation for leg weakness they discharged him home 10/07/24 nomed changes they advised pt he may need an MRIdiscuss changing referralsPt was referred to neuro through [facility] and speech therapy [facility] he does not want touse any [facility] providers he would like new referrals sent [facility]ReasonOnset DateCommentsNCNS PT Eval today10/16/2024FU 10/19/2024ReasonOnset DateCommentsMed Oxjwqk4610/23/2024ReasonOnset DateComments Med Zvbymv504ReasonCommentsFollow-up1 yearCoronary Artery Disease HypertensionReasonOnset DateCommentsMed Xfwnlj164ReasonOnset DateComments NEW PATIENT KXVSXZJI33/03/2024ReasonOnset SikvCkgdstuhYctujdm46/12/2024Reason Onset DateCommentsPT Eval Zvfqbgmz16/18/2025Today makes 3rd attempt to be seen. ReasonCommentsDysphagiaSpecialtyDiagnoses / ProceduresReferred By Contact Referred To ContactOtolaryngology Diagnoses Dysphagia, unspecified type Procedures IA OFFICE/OUTPATIENT NEW HIGH MDM 60 MINUTES Mono Knowles MD [address] [facility] [address] [place] [address] Phone: tel: fax: Norma Jin MD [address] [facility] [address] [place] [address] Phone: tel: fax: Referral IDStatusReasonStart DateExpiration DateVisits RequestedVisits [id number] Specialty Services Required 1ReasonOnset DateCommentsMed Kgxvjh6511/09/2024ReasonComments Medicare Annual Wellness Visit SubsequentMed RefillHydrocodone-- [facility] ReasonOnset DateCommentsMed Immdkl5701/08/2025ReasonCommentsMed RefillHydrocodone, meclizine, colchicine--kroger fremontFollow-upPain/controlled medHypertension ResultsLabs 11/2024ReasonOnset DateCommentsMed Dxfjcc8002/14/2025ReasonComments Follow-upPain/controlled medReasonOnset DateCommentsMed Zvuexh0103/13/2025Reason Onset DateCommentsMed Xrpiqm4304/11/2025ReasonOnset DateCommentsMed Refill 05/09/2025ReasonOnset DateCommentsMed Ntcenb5405/11/2025ReasonOnset DateComments HIM05/26/2025ReasonOnset DateCommentsMed Eghspu1006/15/2025ReasonCommentsFollow-up Admitted to [facility] 05/26/25 dx: TIA,HTN discharged from [facility] to [facility] discharged home 06/15/25BronchitisReasonCommentsPainReasonOnset DateCommentsMed Rgktdw6307/18/2025 FOR RECORDS PERTAINING TO PATIENTS WHO ARE [...] BE BASED ON THE PRIMARY CLINICAL RECORDS. [facility]. provides no warranty or guarantee of the accuracy or completeness of information in this document.
--- NOTE | 2025-07-26 14:07 | SWNOTE1 ---
Referral sent to [facility]. Referral included face sheet, ED note, H&P, case management report, nursing notes, diagnostic imaging,and med list. MAKSIM to send PT once completed. MAKSIM did receive email from Cindy at [facility] and she did receive referral and they reviewed clinically and are just waiting on his benefits to come back and she will let MAKSIM know.
--- NOTE | 2025-07-26 15:56 | CM.NOTE ---
PT note faxed to [facility] at [phone] on 07/26/2025
[2025-07-26] MEDS: ENOXAPARIN SODIUM 40 MG/0.4 ML SYRINGE SUBQ (18:18)
[2025-07-26] MEDS: SUCRALFATE 1 GM TABLET PO (18:18)
[2025-07-26] MEDS: ACETAMINOPHEN 325 MG TABLET 650 MG PO (20:21)
[2025-07-26] MEDS: ALPRAZOLAM 0.5 MG TABLET PO (21:56)
[2025-07-26] MEDS: ATORVASTATIN CALCIUM 20 MG TABLET PO (21:56)
[2025-07-26] MEDS: GABAPENTIN 300 MG CAPSULE PO (21:56)
[2025-07-27] VITALS: BP 139/85; PULSE 96; TEMP 36.8; O2SAT 93
[2025-07-27 04:00] VITALS: BP 132/75; PULSE 90; TEMP 36.6; O2SAT 93
[2025-07-27] MEDS: PANTOPRAZOLE SODIUM 40 MG TABLET.DR PO (06:52)
[2025-07-27 08:00] VITALS: BP 137/86; PULSE 85; TEMP 36.5; O2SAT 93
[2025-07-27] MEDS: SUCRALFATE 1 GM TABLET PO ×2 (08:08→11:32)
[2025-07-27] MEDS: AMLODIPINE BESYLATE 5 MG TABLET 2.5 MG PO (08:08)
[2025-07-27] MEDS: CLOPIDOGREL BISULFATE 75 MG TABLET PO (08:08)
--- NOTE | 2025-07-27 09:00 | CM.NOTE ---
Rounds made with Dr. Maya, discussed plan of care with pt. PT will continue therapy until pt medically stable to discharge to skilled.
--- NOTE | 2025-07-27 09:01 | SWNOTE1 ---
SW received a message from pt's nurse and [facility] pt's sig. other, called last night and voiced she does not want him to go to [facility] and there. SW then had a message from pt's son, Bubba. He voiced he does not want [facility] and would like [facility]. SW to call both back.
--- NOTE | 2025-07-27 09:10 | SWNOTE1 ---
SW called [facility] and called pt's son Bubba in regards to [facility] vs [facility] for skilled. MAKSIM explained to both of them that SW will have to reach out to Dr. Maya or case management and find out if it is ok to switch facilities as this will delay discharge. SW also has to reach out to [facility] to see if they have any openings. Per [facility] the son is the POA. SW did advise the son that SW does not have him in the contacts or any POA paperwork. SW let son know that SW will ask pt if we can add him to the emergency contacts. SW did speak him about the possibility of pt needing nursing home care in the future. SW explained he has had a few hospital visits in the last few months and may be declining. He voiced understanding. SW did let him know that his father has Medicaid secondary and not all facilities take Medicaid for nursing home. He voiced understanding. SW to continue to update the son and [facility]. SW reached out to case management in regards to the potential change in discharge plans. Advised that it would be up to the patient. SW to speak with patient.
--- NOTE | 2025-07-27 09:41 | SWNOTE1 ---
MAKSIM reached out to Peter at and [facility] did respond that they do have openings. MAKSIM spoke with pt in room. Pt was working with physical therapy and is doing better today. SW let him know that SW spoke with [facility] and his son Bubba. They told SW they want him to go to [facility] instead of [facility]. SW let pt know that it is up to him. Pt voiced he wants to go to [facility] instead. SW advised pt that will have [facility] cancel the precert and send referral to [facility]. Pt voiced appreciation. Referral sent to [facility]. Referral included face sheet, ED note, H&P, provider notes, case management report, nursing notes, diagnostic imaging, med list, and PT note. MAKSIM reached out to Paul at [facility] to have them cancel the precert. Cindy replied that precert will be cancelled.
--- NOTE | 2025-07-27 10:08 | PM.PN ---
Progress Note: Subjective Subjective Interval history: Seen and evaluated this AM, he is laying in bed, he reports getting some sleep last night. He is having some radicular pain down the back of his left leg at the moment. He is fairly tearful about his current clinical status and worsening weakness. Exam Narrative Exam Narrative: General: Awake alert, appears comfortable HEENT: head atraumatic, normocephalic, moist mucous membranes, small areas of red plaques on his forehead, looks like some sort of dermatitis. White psoriasis plaques on his mitchell Neck: supple no masses, no lymphadenopathy CVS: regular rate and rhythm, no murmurs or gallops Respiratory: Decreased air movement throughout left, wheezes appreciated GI: soft, nondistended, nontender, positive bowel sounds Extremity: moves all extremities, no restrictions of movements, no calf tenderness, no edema. He does report some shooting pain int he posterior part of his left leg with straight leg raise Neuro: AOx3, CN II-VII intact. Moves all extremities in all planes of motion. Skin: No noted lesions other than what is specified above Constitutional Vital Signs, click to edit/add: Last Vital Signs Temp 97.7 F 07/27/25 08:00 Pulse 85 07/27/25 08:00 Resp 16 07/27/25 08:00 BP 137/86 07/27/25 08:00 Pulse Ox 93 L 07/27/25 08:00 O2 Del Method Room Air 07/27/25 08:00 Progress Note: Objective Labs Labs: Short CBC 07/26/25 Range/Units 10:35 WBC 5.4 (4.0-11.0) 10^3/uL Hgb 13.3 L (14.0-18.0) g/dL Hct 40.7 L (42.0-54.0) % Plt Count 187 (150-450) 10^3/uL BMP 07/26/25 10:35 Sodium 145 Potassium 4.1 Chloride 113 H Carbon Dioxide 25.0 BUN 20.0 H Creatinine 1.50 H Glucose 93 Calcium 8.0 L Liver Function 07/26/25 Range/Units 10:35 Total Bilirubin 0.4 (0.2-1.0) mg/dL AST 19 (15-37) U/L ALT 28 (16-63) U/L Alkaline Phosphatase 96 (46-116) U/L Albumin 3.2 L (3.4-5.0) g/dL Progress Note: A&P Assessment and Plan (1) Ambulatory dysfunction: Assessment and Plan: ? Denies any falls since being home from SNF for roughly 1 week ? Steady decline, currently unable to ambulate more than or 3 steps with a walker ? Therapy consulted, recommending SNF upon DC. CM updated - Unable to send patient home, he is a significant fall risk (2) HTN (hypertension): Assessment and Plan: Continue his home medications as ordered ? According to the last discharge summary from June 29 he was on amlodipine 2.5 mg daily and that it, his Coreg was discontinued Qualifiers: Hypertension type: primary hypertension Qualified Code(s): I10 - Essential (primary) hypertension (3) CKD stage 3a, GFR 45-59 ml/min: Assessment and Plan: Stable (4) COPD (chronic obstructive pulmonary disease): Assessment and Plan: Continue albuterol as ordered Plan - DVT prophylaxis addressed - Regular diet - Full code D/C pending SNF
--- NOTE | 2025-07-27 10:08 | SWNOTE1 ---
[facility] is able to accept and precert started.
--- NOTE | 2025-07-27 10:48 | SWNOTE1 ---
Pt is alright with adding his son as an emergency contact. SW called ER switchboard and had them add pt's son Bubba to the contact list. MAKSIM called [facility] and pt's son, Bubba, and updated them that [facility] has accepted and we are waiting for the insurance approval.
--- NOTE | 2025-07-27 11:08 | SWNOTE1 ---
SW sent PT note from today to Maribeth at [facility] for precert.
--- NOTE | 2025-07-27 11:10 | CM.NOTE ---
CRF completed for skilled therapy at discharge, signed by Dr. Maya. SW has sent referral and started precet at [facility].
--- NOTE | 2025-07-27 11:16 | SWNOTE1 ---
SW completed PASRR and faxed the results to Maribeth at and placed copy in the chart.
[2025-07-27] MEDS: ACETAMINOPHEN 325 MG TABLET 650 MG PO (11:32)
[2025-07-27 11:43] VITALS: BP 148/91; PULSE 96; TEMP 36.6; O2SAT 93
--- NOTE | 2025-07-27 14:22 | SWNOTE1 ---
SW took packet to the floor in case of approval/discharge over the weekend. [facility] will call the floor if pt gets approved.
--- NOTE | 2025-07-27 15:07 | CM.NOTE ---
Medicare Outpatient Observation Notice reviewed and discussed with patient. No questions at this time. Patient signed and original was given back to the patient. Copy placed on patients chart.
--- NOTE | 2025-07-27 15:23 | SWNOTE1 ---
MAKSIM received an email that pt was approved to go skilled. CRESENCIO is reaching out to Dr. Maya to see if he can discharge today. MAKSIM called pt's significant other and let her know that pt is approved to go. She was still here at hospital, but getting ready to leave. [facility] is here with another friend. MAKSIM asked if they could transport if we assist pt in to the car? [facility] asked the friend and they are going to come back up to pt's room to discuss.
--- NOTE | 2025-07-27 16:06 | SWNOTE1 ---
Dr. Maya did get back to and SW and pt can discharge today. SW let pt and [facility] and friend know and they will transport patient. SW let nurse know. SW advised Maribeth at [facility] know that family is transporting and ETA is 5:00. SW to send dc orders. Pt is going skilled to [facility].
--- NOTE | 2025-07-27 16:41 | SWNOTE1 ---
MAKSIM faxed [place] med rec to [place].
== END 2025-07-27 16:43 ==
LOC: ER 13:18 → MS 13:36
PROVIDERS: Admitting Provider Internal Medicine; Emergency Provider Emergency Medicine; PCP Internal Medicine; Visit Provider Internal Medicine
DX: R26.89 Other abnormalities of gait and mobility (principal); I12.9 Hypertensive chronic kidney disease with stage 1 through stage 4 chronic kidney disease, or unspecified chronic kidney disease; N18.31 Chronic kidney disease, stage 3a; R42 Dizziness and giddiness; M62.81 Muscle weakness (generalized); Z87.891 Personal history of nicotine dependence; Z91.81 History of falling; Z79.899 Other long term (current) drug therapy; J44.9 Chronic obstructive pulmonary disease, unspecified
CPT/HCPCS: 36415; 71045; 80053; 84484; 85025; 93005; 94640; 96372; 97161; 97530; 99285; G0378; J1650

== ENCOUNTER 2025-08-21 08:23 | Emergency (ER) | payer MEDICARE, MEDICAID, SELFPAY ==
[2025-08-21] VITALS (33 sets, daily range): BP systolic 112–149; BP diastolic 65–98; PULSE 62–74; TEMP 36.7; O2SAT 92–97; BMI 25.0
--- NOTE | 2025-08-21 08:33 | XR_ITS ---
[facility] [place] [id number] Patient Name: TAJ RING MRN: [id number] date: 1945 Sex: M Assigned Patient Location: ED.MAIN Current Patient Location: ED.MAIN Accession/Order Number: [id number] Exam Date: 08/21/2025 08:40 Report Date: 08/21/2025 09:06 At the request of: JAROD PENNINGTON MD Procedure: XR chest 1V XR chest 1V 08/21/2025 8:56 AM SIGNS AND SYMPTOMS: ^sob PROTOCOL: Frontal radiograph of the chest COMPARISON: 07/26/2025 FINDINGS: The trachea is midline. The heart and mediastinal structures are within normal limits. The lung parenchyma is clear. The bony thorax is intact. Anterior fusion hardware is noted in the lower cervical spine. Degenerative changes are noted in the thoracic spine. XR/XR chest 1V IMPRESSION: No acute cardiopulmonary pathology. Impression dictated by: Kirk Santiago M.D. 08/21/2025 9:06 AM Dictation Location[facility] Electronically authenticated by: [id number] Y Date: 08/21/2025 09:06
--- NOTE | 2025-08-21 08:33 | ECG_ITS ---
[facility] Test Date: 2025-08-21 Pat Name: TAJ RING Department: Room: - Gender: Male [employer]eles[employer] Professional: : 1945 Requested By: [id number] Order Number: [id number] Reading MD: EUNICE FULTON M.D. Measurements Intervals [place] Rate: 77 P: 46 AL: 186 QRS: -58 QRSD: 98 T: 43 QT: 386 QTc: 418 Interpretive Statements 1100 Sinus rhythm 2630 Left anterior fascicular block 3114 Cannot rule out anterior myocardial infarction, age undetermined 8102 Low QRS voltage in chest leads 9150 abnormal ECG Compared to ECG 07/26/2025 10:09:16 Left anterior fascicular block now present Left-axis deviation no longer present Myocardial infarct finding still present Electronically Signed On 08-21-2025 20:00:56 EST by EUNICE FULTON M.D.
[2025-08-21 09:11] LABS: Hematocrit 38.6 % (42.0-54.0); Hemoglobin 12.7 g/dL (14.0-18.0); Immature Granulocytes Abs Auto 0.07 10^3/uL (0.00-0.03); Immature Granulocytes Pct Auto 0.7 % (0.0-0.5); Lymphocytes Absolute Auto 2.3 10^3/uL (1.2-3.8); Mean Corpuscular HGB Conc 32.9 g/dL (29.9-35.2); Mean Corpuscular Hemoglobin 30.0 pg (25.9-34.0); Mean Corpuscular Volume 91.0 fL (80.0-94.0); Platelet Count 207 10^3/uL (150-450); Red Blood Count 4.24 10^6/uL (4.70-6.10); White Blood Count 10.0 10^3/uL (4.0-11.0)
[2025-08-21 09:25] LABS: INR 1.04; Prothrombin Time 10.9 sec (9.0-11.6)
[2025-08-21 09:30] LABS: Alanine Aminotransferase 28 U/L (16-63); Albumin Globulin Ratio 0.9; Albumin Level 3.3 g/dL (3.4-5.0); Alkaline Phosphatase 95 U/L (46-116); Anion Gap 12.5; Aspartate Amino Transferase 17 U/L (15-37); Blood Urea Nitrogen 21.0 mg/dL (7.0-18.0); Calcium 8.3 mg/dL (8.5-10.1); Carbon Dioxide 27.5 mmol/L (21.0-32.0); Chloride 110 mmol/L (98-107); Estimated GFR (African America 55 (>=60 mL/min/1.73m^2); Estimated GFR (Non-African Ame 45 (>=60 mL/min/1.73m^2); Globulin 3.5 g/dL; Glucose 98 mg/dL (74-106); Potassium 4.0 mmol/L (3.5-5.1); Sodium 146 mmol/L (136-145); Total Protein 6.8 g/dL (6.4-8.2)
--- OUTSIDE RECORDS SUMMARY | 2025-08-21 09:38 | XMS_ITS | CCD ---
Author Organization [place] [facility] Care Team Providers Care Thermostat Machine Tender Name Role Phone DR MONO KNOWLES Attending Unavailable ESHA, DR FOREMAN Primary Care Unavailable DR MONO KNOWLES Admitting Unavailable Mono Knowles MD Unavailable [phone] Mono Knowles MD Primary Care Provider [phone] Mono Knowles MD Primary Care Provider [phone] Mono Knowles MD Primary Care Provider [phone] Caroline FRANCO, Summer Unavailable Mono Knowles MD Primary Care Provider [phone] Johnston GENERAL FARM MANAGER, Ruth Unavailable Unavailable Johnston GENERAL FARM MANAGER, Ruth Unavailable Johnston GENERAL FARM MANAGER, Ruth Unavailable MONO KNOWLES Primary Care Unavailable INPATIENT, TELENEUROLOGY Consulting Unavail able MONO KNOWLES Referring Unavailable MONO KNOWLES Primary Care Unavailable MONO KNOWLES Referring Unavailable MONO KNOWLES Primary Care Unavailable MONO KNOWLES Referring Unavailable MONO KNOWLES Primary Care Unavailable MONO KNOWLES Referring Unavailable MONO KNOWLES Primary Care Unavailable MONO KNOWLES Referring Unavailable MONO KNOWLES Primary Care Unavailable Caroline FRANCO, Summer Unavailable [phone] MONO KNOWLES Attending Unavailable NORMA JIN [...] KARIMI Attending Unavailable DAGMAR KARIMI Referring Unavailable MONO KNOWLES Attending Unavailable MARYLOU [...] OnsetReaction(s) FacilityUnclassified (1 source)Pneumovax 23Drug allergy (disorder)[facility] (20 sources)Pneumococcal 20-Danay Conj VaccDrug [id number] Healthcare Work Phone: (20 sources)Pneumococcal Vac PolyvalentDrug Vlrtuhh11-27-8525YnnqlgvnXYTC Healthcare (15 sources)Streptococcus pneumoniae type 1 capsular [...] polysaccharide antigen; Translations: [PNEUMOCOCCAL 23-DANAY PS VACCINE]Drug Cbbockv00-67-8581IoytragjTubDvumsl Health System Medications Current Medications MedicationDrug Class(es)DatesSig (Normalized)Sig (Original)acetaminophen 325 mg / HYDROcodone bitartrate 10 mg oral tablet (20 sources)Opioid AgonistStart: 04-27-2024 End: 66-16-4915iqan 1 tablet by mouth every six hours for painHYDROcodone- acetaminophen (Palmer) 10-325 MG tablet Indications: Cervical stenosis of spinal canal Take 1 tablet by mouth every 6 (six) hours if needed for severe pain 120 tablet 07/09/2025 08/08/2025tiveStart: 61-37-5909eehj 1 tablet by mouth every six hours for painHYDROcodone-acetaminophen (Palmer) 10-325 MG tablet Indications: Cervical stenosis of spinal canal Take 1 tablet by mouth every 6 (six) hours if needed for severe pain 120 tablet 0 10/06/2023 ActiveStart: 17-29-4992PUKFVnmoktt-acetaminophen (NORCO) 10-325 mg per tablet as needed. 01/14/2022 Activeallopurinol 100 mg oral tablet (20 sources)Xanthine Oxidase InhibitorStart: 42-10-2955enva 1 tablet by mouth once dailyallopurinol (Zyloprim) 100 MG tablet Indications: Mixed hyperlipidemia Take 1 tablet (100 mg) by mouth Daily 100 tablet 3 02/27/2025 ActiveALPRAZolam 1 mg oral tablet (20 sources)BenzodiazepineStart: 05-15-2025 End: 21-67-7787nqlb 1 tablet by mouth in the morningALPRAZolam (Xanax) 1 MG tablet Indications: Anxiety Take 1 tablet (1 mg) by mouth in the morning and 1 tablet (1 mg) before bedtime. 60 tablet 07/18/2025 08/17/2025 ActiveStart: 03-03-2024 End: 16-25-8553isqu 1 tablet by mouth in the morningALPRAZolam (Xanax) 1 MG tablet Indications: Anxiety Take 1 tablet (1 mg) by mouth in the morning and 1 tablet (1 mg) before bedtime. 60 tablet 04/11/2025 05/11/2025 Discontinued (Reorder)Start: 51-76-3253ndnt 1 tablet by mouth every six hours [...] (20 sources)Dihydropyridine Calcium Channel BlockerStart: 06-18-2023 End: 52-56-4520bpbz 1 tablet by mouth once dailyamLODIPine (Norvasc) 2.5 MG tablet Indications: Benign essential hypertension Take 1 tablet (2.5 mg) by mouth Daily 90 tablet 3 07/28/2024 07/28/2025 Activeamoxicillin 875 mg oral tablet (3 sources)Penicillin-class AntibacterialStart: 05-24-2024 End: 40-36-9536ekaq 1 tablet by mouth in the morningamoxicillin (Amoxil) 875 MG tablet Indications: Parotiditis Take 1 tablet (875 mg) by mouth in the morning and 1 tablet (875 mg) before bedtime. Do all this for 10 days. 20 tablet 05/24/2024 06/03/2024 Activeamoxicillin 875 mg / clavulanate 125 mg oral tablet (8 sources)Penicillin-class AntibacterialStart: 06-25-2025 End: 39-92-4695numl 1 tablet by mouth in the morningamoxicillin-clavulanate (Augmentin) 875-125 MG tablet Indications: Acute bronchitis, unspecified org anism Take 1 tablet (875 mg) by mouth in the morning and 1 tablet (875 mg) before bedtime. Do all this for 10 days. 20 tablet 06/25/2025 07/05/2025 Active Start: 02-28-2025 End: 69-33-4708eoei 1 tablet by mouth in the morningamoxicillin-clavulanate (Augmentin) 875-125 MG tablet Indications: Acute non-recurrent sinusitis, un specified location Take 1 tablet (875 mg) by mouth in the morning and 1 tablet (875 mg) before bedtime. Do all this for 10 days. 20 tablet 02/28/2025 03/10/2025 Activeazithromycin 250 mg oral tablet (12 sources)Macrolide AntimicrobialStart: 02-23-2025 End: 92-06-6358zabf 2 tablets by mouth once daily, then take 1 tablet by mouth once dailyazithromycin (Zithromax) 250 MG tablet Indications: Upper respiratory tract infection, unspecified type Take 2 tablets (500 mg) by mouth Daily for 1 day, THEN 1 tablet (250 mg) Daily for 4 days. 6 tablet 02/23/2025 03/07/2025 Discontinued (Therapy completed)Start: 02-08-2025 End: 57-92-7244buku 2 tablets by mouth once daily, then take 1 tablet by mouth once dailyazithromycin (Zithromax) 250 MG tablet Indications: Acute bronchitis, unspecified organism Take 2 tablets (500 mg) by mouth Daily for 1 day, THEN 1 tablet (250 mg) Daily for 4 days. 6 tablet 02/08/2025 02/12/2025 Discontinued (Therapy completed)Start: 11-02-2024 End: 64-65-4464cpyo 2 tablets by mouth once daily, then take 1 tablet by mouth once dailyazithromycin (Zithromax) 250 MG tablet Indications: Acute bronchitis, unspecified organism Take 2 tablets (500 mg) by mouth Daily for 1 day, THEN 1 tablet (250 mg) Daily for 4 days. 6 tablet 11/02/2024 11/07/2024 ActiveStart: 08-31-2024 End: 78-45-4273kilq 2 tablets by mouth once daily, then take 1 tablet by mouth once dailyazithromycin (Zithromax) 250 MG tablet Indications: Upper respiratory tract infection, unspecified type Take 2 tablets (500 mg) by mouth Daily for 1 day, THEN 1 tablet (250 mg) Daily for 4 days. 6 tablet 08/31/2024 09/05/2024 ActiveStart: 05-10-2024 End: 37-25-1449chwn 2 tablets by mouth once daily, then take 1 tablet by mouth once dailyazithromycin (Zithromax) 250 MG tablet Indications: Subacute cough , Acute bronchitis, unspecified organism Take 2 tablets (500 mg) by mouth Daily for 1 day, THEN 1 tablet (250 mg) Daily for 4 days. 6 tablet 05/10/2024 05/15/2024 Activebenzonatate 100 mg oral capsule (2 sources)Non-narcotic AntitussiveStart: 97-36-7981tibd 1 capsule by mouth every eight hoursbenzonatate (TESSALON PERLES) 100 mg capsule Take 1 capsule (100 mg total) by mouth every 8 (eight)hours. 21 capsule 05/24/2025 Active carvedilol 25 mg oral tablet (20 sources)alpha-Adrenergic Antonia, beta-Adrenergic BlockerStart: 07-23-2022 End: 56-06-4636jtnq 1 tablet by mouth in the morningcarvedilol (Coreg) 25 MG tablet Take 25 mg by mouth in the morning and 25 mg in the evening. 07/23/2022 ActiveStart: 07-23-2022 End: 13-36-6451alxq 1 tablet by mouth every twelve hourscarvediloL (COREG) 25 mg tablet TAKE ONE TABLET BY MOUTH EVERY 12 HOURS 180 tablet 0 09/07/202310/14 Discontinued (Reorder)cefdinir 300 mg oral capsule (5 sources)Cephalosporin AntibacterialStart: 06-21-2025 End: 01-00-8228idql 1 capsule by mouth in the morningcefdinir (Omnicef) 300 MG capsule Indications: Acute bronchitis, unspecified organism Take 1 capsule (300 mg) by mouth in the morning and 1 capsule (300 mg) before bedtime. Do all this for 10 days. 20 capsule 06/21/2025 06/25/2025 Discontinued (Ineffective) celecoxib 200 mg oral capsule (20 sources)Nonsteroidal Anti-inflammatory DrugStart: 08-14-2024 End: 47-16-2329agcq 1 capsule by mouth once dailycelecoxib (CeleBREX) 200 MG capsule Indications: Costochondritis, acute Take 1 capsule (200 mg) by mouth Daily 90 capsule 3 05/15/2025 05/15/2026 ActiveStart: 07-12-2024 End: 25-96-5327rpml 1 capsule by mouth once dailycelecoxib (CeleBREX) 200 MG capsule Indications: Costochondritis, acute Take 1 capsule (200 mg) by mouth Daily 30 capsule 07/12/2024 08/11/2024 Activeclopidogrel 75 mg oral tablet (20 sources)P2Y12 Platelet InhibitorStart: 09-10-2019 End: 49-96-2491nlnt 1 tablet by mouth once dailyclopidogrel (Plavix) 75 MG tablet Indications: Mixed hyperlipidemia Take 1 tablet (75 mg) by mouth Daily 100 tablet 3 08/30/2024 Activecolchicine 0.6 mg oral capsule (20 sources)Start: 12-04-2024 End: 35-89-0031yxml 1 capsule by mouth onceColchicine 0.6 MG capsule Indications: Idiopathic chronic gout without tophus, unspecified site Take 0.6 mg by mouth See administration instructions Take one capsule by mouth once daily, every Wednesday, Wednesday and Wednesday. 30 capsule 2 02/12/2025 ActiveStart: 57-45-5444tqmn 1 capsule by mouth onceColchicine 0.6 MG capsule Indications: Idiopathic chronic gout without tophus, unspecified site Take 0.6 mg by mouth See administration instructions Take one capsule by mouth once daily, every Wednesday, Wednesday and Wednesday. 30 capsule 10/23/2024 ActiveStart: 29-42-6624mbhc 1 capsule by mouth in the morningcolchicine (MITIGARE) 0.6 mg capsule Take 1 capsule (0.6 mg total) by mouth in the morning. 07/08/2022 ActiveComirnaty 30 MCG/0.3ML suspension prefilled syringe (3 sources)Start: 06-21-2023 End: 26-78-6377Ggbpknphu 30 MCG/0.3ML suspension prefilled syringeStart: 67-13-0119Kiojooikn 30 MCG/0.3ML suspension prefilled syringedicyclomine hydrochloride 20 mg oral tablet (4 sources)AnticholinergicStart: 15-75-5694eyvs 1 tablet by mouth every six hoursdicyclomine (BENTYL) 20 mg tablet Take 1 tablet (20 mg total) by mouth every 6 (six) hours. 10/24/2023 Activefamotidine 20 mg oral tablet (4 sources)Histamine-2 Receptor AntagonistStart: 81-16-9558chbq 1 tablet by mouth in the morningfamotidine (PEPCID) 20 mg tablet Take 1 tablet (20 mg total) by mouth in the morning. 11/02/2023 ActiveFluzone High-Dose Quadrivalent syringe (3 sources)Start: 07-12-2023 End: 39-54-7733Cpdmcmu High-Dose Quadrivalent syringeStart: 63-75-1133Ygdndtq High-Dose Quadrivalent syringegabapentin 300 mg oral capsule (20 sources)Anti-epileptic AgentStart: 07-26-2023 End: 92-14-2708zchu 1 capsule by mouth at bedtimegabapentin (Neurontin) 300 MG capsule Indications: Pain of right thigh , Lumbar herniated disc , Right lumbar radiculopathy Take 1 capsule (300 mg) by mouth at bedtime 100 capsule 3 12/28/2024 02/01/2026 ActivelevoFLOXacin 500 mg oral tablet (2 sources)Quinolone AntimicrobialStart: 07-18-2025 End: 77-00-5371gedr 1 tablet by mouth once dailylevoFLOXacin (Levaquin) 500 MG tablet Indications: Acute bronchitis, unspecified organism Take 1 tablet (500 mg) by mouth Daily for 7 days 7 tablet 07/18/2025 07/25/2025 Activelinaclotide 0.072 mg oral capsule (20 sources)Guanylate Cyclase-C AgonistStart: 03-21-2024 End: 64-53-2228Musbxpx 72 MCG capsule 03/21/2024 08/30/2024 DiscontinuedStart: 90-89-8931vygo 1 capsule by mouth before mealtimelinaCLOtide (Linzess) 72 MCG capsule Indications: Drug induced constipation Take 1 capsule (72 mcg)by mouth in the morning. Take before meals. 30 capsule 5 03/25/2023 ActiveMagnesium (20 sources) End: 37-92-8161hlkomrdzu 250 MG tablet 1 (one) time each day at the same time. 08/30/2024 Discontinuedmagnesium 250 MG tablet 1 (one) time each day at the same time. Activemagnesium 250 MG tablet 1 (one) time each day at the same time. 0 Activemeclizine hydrochloride 25 mg oral tablet (20 sources)AntiemeticStart: 05-18-2024 End: 59-17-9806rjaf 1 tablet by mouth three times daily as needed for dizziness meclizine (Antivert) 25 MG tablet Indications: Vertigo Take 1 tablet (25 mg) by mouth 3 (three) times a day as needed for dizziness 60 tablet 3 02/12/2025 02/12/2026 ActivemethylPREDNISolone 4 mg oral tablet (7 sources)CorticosteroidStart: 08-22-2024 End: 62-88-2773xuseeoQOIEKOMcqcra (Medrol Dospak) 4 MG tablets Indications: Parotiditis TAKE BY MOUTH INSTRUCTED - PER PACKAGE INSTRUCTIONS 21 tablet 08/22/2024 08/30/2024 Discontinued (Therapy completed)Start: 05-24-2024 End: 42-38-6529vjokxvWMCVJLZabgza (Medrol Dospak) 4 MG tablets Indications: Parotiditis Follow schedule on packageinstructions 21 tablet 05/24/2024 05/31/2024 ActiveStart: 05-10-2024 End: 61-08-4654hszfueGPJLVMDdpogd (Medrol Dospak) 4 MG tablets Indications: Subacute cough , Acute bronchitis, unspecified organism Follow schedule on package instructions 21 tablet 05/10/2024 05/17/2024 Activenitroglycerin 0.4 mg sublingual tablet (20 sources)Nitrate VasodilatorStart: 11-20-2024 End: 17-66-4353ctuskgwdclsrv (Nitrostat) 0.4 MG SL tablet Indications: 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 Place 1 tablet (0.4 mg) under the tongue every 5 (five) minutes if needed for chest pain 90 tablet 12 11/20/2024 11/20/2025 ActiveStart: 10-27-2023 End: 77-41-5427qqqdyqmemdmaz (Nitrostat) 0.4 MG SL tablet Indications: 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 (CMS/HCC) Place 1 tablet (0.4 mg) under the tongue every 5 (five) minutes if needed for chest pain 90 tablet 12 10/27/2023 Activenystatin 061914 unt/ml oral suspension (4 sources)Polyene AntifungalStart: 08-22-2024 End: 95-74-1829dmnh 5 mL by mouth four times daily at bedtimenystatin (Mycostatin) 843247 UNIT/ML suspension Indications: Thrush SWISH AND SWALLOW FIVE MILLILITERS BY MOUTH FOUR TIMES A DAY FOR 14 DAYS (MORNING, NOON, EVENING, BEFORE BEDTIME) 280 mL Discontinued (Therapy completed) Start: 06-01-2024 End: 94-48-3921howydlhu (Mycostatin) 559906 UNIT/ML suspension Indications: Thrush Take 5 mL [...] release oral tablet (20 sources)Proton Pump InhibitorStart: 65-55-7682fndc 1 tablet by mouth once dailypantoprazole (ProtoNix) 40 MG EC tablet Indications: Benign essential hypertension Take 1 tablet (40 mg) by mouth Daily 100 tablet 3 09/25/2024 Active predniSONE 20 mg oral tablet (9 sources)Start: 02-28-2025 End: 92-12-9864bubl 1 tablet by mouth once dailypredniSONE (Deltasone) 20 MG tablet Indications: Bronchospasm Take 1 tablet (20 mg) by mouth Daily for 5 days 5 tablet 02/28/2025 03/07/2025 Discontinued (Therapy completed)Start: 02-08-2025 End: 14-63-6600hyou 1 tablet by mouth once dailypredniSONE (Deltasone) 20 MG tablet Indications: Acute bronchitis, unspecified organism Take 1 tablet (20 mg) by mouth Daily for 5 days 5 tablet 02/08/2025 02/12/2025 Discontinued (Therapy completed)Start: 11-02-2024 End: 52-54-0485sqft 1 tablet by mouth once dailypredniSONE (Deltasone) 20 MG tablet Indications: Acute bronchitis, unspecified organism Take 1 tablet (20 mg) by mouth Daily for 5 days 5 tablet 11/02/2024 11/07/2024 ActiveStart: 08-31-2024 End: 99-69-5843sird 1 tablet by mouth once dailypredniSONE (Deltasone) 10 MG tablet Indications: Upper respiratory tract infection, unspecified type Take 1 tablet (10 mg) by mouth Daily for 5 days 5 tablet 08/31/2024 09/05/2024 Active simvastatin 40 mg oral tablet (20 sources)HMG-CoA Reductase InhibitorStart: 25-67-2166wbyi 1 tablet by mouth at bedtimesimvastatin (Zocor) 40 MG tablet Indications: Atherosclerosis of [place] coronary artery of [place] heart without angina pectoris Take 1 tablet (40 mg) by mouth at bedtime 100 tablet 3 02/06/2025 ActiveStart: 73-88-1236pwzu 1 tablet by mouth at bedtimesimvastatin (Zocor) 40 MG tablet Indications: Atherosclerosis of [place] coronary artery of [place] heart without angina pectoris (CMS/HCC) Take 1 tablet (40 mg) by mouth at bedtime 100 tablet 3 02/08/2024 ActiveStart: 10-06-2023 End: 26-10-1443wcco 1 tablet by mouth at bedtimesimvastatin (Zocor) 40 MG tablet Indications: Atherosclerosis of [place] coronary artery of [place] heart without angina pectoris (CMS/HCC) Take 1 tablet (40 mg) by mouth at bedtime 100 tablet 0 10/06/2023 01/14/2024 Activesucralfate 1000 mg oral tablet (20 sources)Aluminum ComplexStart: 09-18-2022 End: 19-16-6185eknmcgxyxn (Carafate) 1 g tablet Indications: Gastroesophageal reflux disease with esophagitis without hemorrhage TAKE 1 TABLET BY MOUTH EVERY MORNING, ONCE IN THE EVENING AND ONCE BEFORE BEDTIME 270tablet 3 03/14/2025 ActivetiZANidine 4 mg oral tablet (15 sources)Central alpha-2 Adrenergic AgonistStart: 07-20-2024 End: 03-94-6495cgrm 1 tablet by mouth every twelve hours as needed for muscle spasmstiZANidine (Zanaflex) 4 MG tablet Indications: Chest wall pain TAKE 1 TABLET BY MOUTH EVERY 12 HOURS NEEDED FOR MUSCLE SPASMS UP TO 10 DAYS 20 tablet 07/20/2024 08/30/2024 Discontinued (Side effects)Start: 92-43-9047vohc 1 tablet by mouth every twelve hours as needed for muscle spasmstiZANidine (Zanaflex) 4 MG tablet Indications: Chest wall pain TAKE ONE TABLET BY MOUTH EVERY 12 HOURS NEEDED FOR MUSCLE SPASMS FOR UP TO 10 DAYS 20 tablet 07/19/2024 ActiveStart: 91-77-9682bvht 1 tablet by mouth oncetiZANidine (Zanaflex) 4 MG tablet Indications: Chest wall pain Take 1 tablet (4 mg) by mouth every 12 (twelve) hours if needed for muscle spasms for up to 10 days 20 tablet 06/09/2024 Activezolpidem tartrate 10 mg oral tablet (20 sources)gamma-Aminobutyric Acid-ergic AgonistStart: 10-25-2024 End: 82-70-7949jhpl 1 tablet by mouth at bedtimezolpidem (Ambien) 10 MG tablet Indications: Chronic insomnia Take 1 tablet (10 mg) by mouth at bedtime 30 tablet 06/21/2025 ActiveStart: 08-18-2023 End: 43-75-9901azwq 1 tablet by mouth at bedtimezolpidem (Ambien) 10 MG tablet Indications: Chronic insomnia Take 1 tablet (10 mg) by mouth at bedtime 30 tablet 2 04/05/2024 10/23/2024 Discontinued (Reorder) Completed/Discontinued Medications MedicationDrug Class(es)DatesSig (Normalized)Sig (Original)cefadroxil 500 mg oral capsule (6 sources)Cephalosporin Antibacterial End: 89-96-1193hspq 2 capsules by mouth in the morning, then take 2 capsules by mouth at bedtimecefaDROXil (DURICEF) 500 mg capsule Take 2 capsules (1,000 mg total) by mouth in the morning and 2 capsules (1,000 mg total) before bedtime. 0 12/09/2023 Discontinued (Therapy completed)1 ml triamcinolone acetonide 40 mg/ml prefilled syringe (4 sources)CorticosteroidStart: 02-28-2025 End: 12-19-5430jtkojcgjakywd acetonide (Kenalog-40) injection 40 mgStart: 02-28-2025 End: 36-09-1572skrlyztmmasvq acetonide (Kenalog-40) injection 40 mgStart: 02-28-2025 End: 43-14-7167gohdez 40 mg by intramuscular injection once40 mg, Intramuscular, Once, On Wed02/28/25 at 1130, For 1 doseStart: 02-28-2025 End: 04-33-7392tkjrgt 40 mg by intramuscular injection once40 mg, Intramuscular, Once, On Wed02/28/25 at 1130, For 1 dose Problems Active Problems Problem ClassificationProblemDateDocumented DateEpisodic/ChronicAcute bronchitis (8 sources)Acute bronchitis; Translations: [Acute bronchitis, unspecified] 66-00-0798HrqszfpuCheno cerebrovascular disease (20 sources)Cerebrovascular accident; Translations: [Cerebral infarction, unspecified]Onset: 107602-93-6789DhzbsslZetwb cerebrovascular disease (1 source)Acute cerebrovascular diseaseOnset: 39-45-6034Ymsfdpptvnaarh/social admission (2 sources)Patient encounter status; Translations: [Other specified counseling] 77-14-3447MqyuhtvaHfoiutq disorders (20 sources)Anxiety; Translations: [Anxiety disorder, unspecified]Onset: 646021-12-4758YidikuxQmysvvq kidney disease (20 sources)Chronic kidney disease stage 3B ; Translations: [Stage 3b chronic kidney disease (HCC)]Onset: 261947-79-1732DeaimqaIdshvyjpgx associated with dizziness or vertigo (20 sources)Vertigo; Translations: [Dizziness and giddiness]Onset: 10-06-2024 59-85-3518WwskbjlvKjcjmrgu atherosclerosis and other heart disease (20 sources)Coronary occlusion; Translations: [Atherosclerotic heart disease of [place] coronary artery without angina pectoris]Onset: 09-22-2013 Resolved: 227473-24-9530SaghjlzFqterrfk of mouth; excluding dental (3 sources)Parotitis; Translations: [Sialoadenitis, unspecified]07-19-2024 EpisodicDisorders of lipid metabolism (20 sources)Hyperlipidemia; Translations: [Hyperlipidemia, unspecified]Onset: 09-22-2013 Resolved: 528659-35-6330JabchnoEqwhwywwgpnasv and diverticulitis (20 sources)Diverticulosis of colon; Translations: [Diverticulosis of large intestine without perforation or abscess without bleeding]Onset: 10-10-2008 Resolved: 871659-85-5731IbnpqruEvvpjbnc; convulsions (2 sources)Epilepsy; Translations: [Epilepsy, unspecified, not intractable, without status epilepticus]29-43-0595MxibtnpQykyfsdmof disorders (20 sources)Gastro-esophageal reflux disease with esophagitis; Translations: [Gastroesophageal reflux disease with esophagitis without hemorrhage]Onset: 01-23-2017 Resolved: 626167-57-3427HgcbhleMbnpwlufm hypertension (20 sources)Benign essential hypertension; Translations: [Essential (primary) hypertension]Onset: 06-12-2010 Resolved: 809377-22-2043AbqyinuAcygprbw of neck of femur (hip) (4 sources)Closed fracture proximal femur, subtrochanteric; Translations: [Displaced subtrochanteric fracture of right femur, sequela]58-48-2764Jqdvxktu Fracture of neck of femur (hip) (10 sources)Closed subtrochanteric fracture of left femur; Translations: [Displaced subtrochanteric fracture ofleft femur, sequela]Onset: 06-25-2025 53-32-1738SfmbxexjCxfv and other crystal arthropathies (20 sources)Chronic gouty arthritis; Translations: [Idiopathic chronic gout, unspecified site, without tophus (tophi)]Onset: hronic Headache; including migraine (2 sources)Episodic tension-type headache; Translations: [Episodic tension-type headache, not intractable]66-97-6430KxjcvldFofihkgwufv of prostate (20 sources)Benign prostatic hyperplasia; Translations: [Benign prostatic hyperplasia without lower urinary tract symptoms]Onset: ChronicMiscellaneous mental health disorders (20 sources)Chronic insomnia; Translations: [Psychophysiologic insomnia]Onset: 303709-67-3696EhtqkfcGkclepd (2 sources)Candidiasis of mouth; Translations: [Candidal stomatitis]07-19-2024 EpisodicNonspecific chest pain (20 sources)Chest pain; Translations: [Chest pain, unspecified]Onset: 01-23-2017 Resolved: 350933-19-9517IxctivokBogynizcedxicl (20 sources)Arthritis of right hip; Translations: [Unilateral primary osteoarthritis, right hip]Onset: 267364-24-7863AbuovkjRprcl bone disease and musculoskeletal deformities (2 sources)Costal chondritis; 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 [Tietze]]44-36-5432GwrmylcgEebqw circulatory disease (2 sources)History of transient ischemic attack; Translations: [Personal history of transient ischemic attack (TIA), and cerebral infarction without residual deficits]09-70-3036GtdgfvmfNgobv connective tissue disease (2 sources)Pain in right lower limb; Translations: [Pain in right leg]07-11-2025 EpisodicOther gastrointestinal disorders (20 sources)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; Translations: [Irritable bowel syndrome with constipation]Onset: 10-27-2023 65-62-6969VenceyjKhfau gastrointestinal disorders (2 sources)Dysphagia; Translations: [Dysphagia, pharyngoesophageal phase] 57-30-4011WghwkozkYriii lower respiratory disease (1 source)Chronic cough; Translations: [Chronic cough]Onset: 69-74-2871Oywsuvcq Other nervous system disorders (20 sources)Chronic pain; Translations: [Other chronic pain]Onset: 01-19-2023 24-89-9694JwxkwndSowwx nervous system disorders (20 sources)Chronic postoperative pain; Translations: [Other chronic postprocedural pain]Onset: 680116-16-2439MsixvjcVqfwr nervous system disorders (6 sources)Dysarthria; Translations: [Dysarthria and anarthria]08-30-2024 EpisodicOther non-traumatic joint disorders (2 sources)Hip pain; Translations: [Pain in right hip]10-13-2422DgdkaviuUafah nutritional; endocrine; and metabolic disorders (20 sources)Hypocalcemia; Translations: [Hypocalcemia]Onset: 01-19-2023 24-88-0235CiiqymnGsjyd nutritional; endocrine; and metabolic disorders (20 sources)Body mass index 30+ - obesity; Translations: [Obesity, unspecified] Onset: 903033-87-8282AsefopcUsxrr upper respiratory disease (4 sources)Bronchospasm; Translations: [Acute bronchospasm]11-98-2366Tmxjjlat Other upper respiratory infections (5 sources)Upper respiratory infection; Translations: [Acute upper respiratory infection, unspecified]36-21-6654FvmlcqzmWowzytxsto and visceral atherosclerosis (13 sources)Arteriosclerotic vascular disease; Translations: [Unspecified atherosclerosis]Onset: 305720-57-2272GwvtpdoOfvzzlsg codes; unclassified (1 source)Pain, unspecified; Translations: [Pain, unspecified]Onset: 05-28-2025 EpisodicSpondylosis; intervertebral disc disorders; other back problems (20 sources)Cervical spondylosis without myelopathy; Translations: [Spondylosis without myelopathy or radiculopathy, cervical region]Onset: ChronicSyncope (4 sources)Syncope; Translations: [Syncope and collapse]72-18-6713Vlxqellf Unclassified (1 source)EMSOnset: 71-67-7777Ujlzvuwuwhiw (1 source)Weakness - GeneralizedOnset: 05-24-2025 Past or Other Problems Problem ClassificationProblemDateDocumented DateEpisodic/ChronicAbdominal hernia (20 sources)Hiatal hernia; Translations: [Diaphragmatic hernia without obstruction or gangrene]Onset: 122434-03-2036NbqljprmOuzon and unspecified renal failure (20 sources)Ulpdw-fv-kbzehdq renal failure; Translations: [Acute kidney failure, unspecified]Onset: 09-20-2020 Resolved: 359317-03-5805ItubzoczBczaj myocardial infarction (20 sources)Myocardial infarction; Translations: [Acute myocardial infarction, unspecified]Onset: 09-13-2016 Resolved: 345212-71-1947VooifcpNfttjahs atherosclerosis and other heart disease (20 sources)Stented coronary artery; Translations: [Presence of coronary angioplasty implant and graft]Onset: 09-22-2013 Resolved: 052544-56-5225FrlfpjknAejiaqwgp and duodenitis (20 sources)Gastritis; Translations: [Gastritis, unspecified, without bleeding] Onset: 705036-28-1191ClsqoswhBposfhkdihjhfx ulcer (except hemorrhage) (20 sources)H/O: gastric ulcer; Translations: [Personal history of peptic ulcer disease]Onset: 378988-82-3697ZjexytwzIaxuaoeobdeyr symptoms and ill- defined conditions (13 sources)Disorder of the urinary system; Translations: [Disorder of urinary system, unspecified]Onset: 911493-73-3978YhhnchjbOdwxseswaiwo conditions of male genital organs (20 sources)Balanitis; Translations: [Balanitis]Onset: 06-06-2021 Resolved: 062708-52-6503GkqaezdIqlumwr and fatigue (4 sources)Asthenia; Translations: [Weakness]Onset: 463514-13-3861Hkcciuxf Other and unspecified benign neoplasm (20 sources)History of polyp of colon; Translations: [Personal history of colonic polyps]Onset: 745329-63-8522WllwmlwdMbmyt and unspecified benign neoplasm (13 sources)Polyp of colon; Translations: [Polyp of colon]Onset: 09-18-2022 07-85-5375ZxezpuaoMotoa connective tissue disease (20 sources)Pain of right thigh; Translations: [Pain in right thigh]Onset: 706386-48-9182JlffgbweHywqa gastrointestinal disorders (20 sources)History of disorder of digestive system; Translations: [Personal history of other diseases of the digestive system]Onset: EpisodicOther gastrointestinal disorders (20 sources)Constipation; Translations: [Constipation, unspecified]Onset: 09-28-2017 Resolved: 843195-20-1756CtkguyrcBqcud injuries and conditions due to external causes (20 sources)Injury of penis; Translations: [Unspecified injury of external genitals, initial encounter]Onset: 06-06-2021 Resolved: 090435-99-3468EjpjahmdOqtzk injuries and conditions due to external causes (20 sources)Traumatic rhabdomyolysis; Translations: [Traumatic ischemia of muscle, initial encounter]Onset: 09-20-2020 Resolved: 717330-80-3945XlnlpqwrIofjw lower respiratory disease (2 sources)Cough; Translations: [Subacute cough]41-33-5612PpwotgcxWdjxz male genital disorders (13 sources)Phimosis; Translations: [Phimosis]Onset: EpisodicOther nervous system disorders (1 source)Abnormal gaitOnset: 11-29-3709OdvnvripZapqx nervous system disorders (1 source)Dysarthria and anarthria; Translations: [Dysarthria and anarthria] Onset: 59-92-3833YobjauigLzzhe screening for suspected conditions (not mental disorders or infectious disease) (20 sources)Increased blood lead level; Translations: [Abnormal lead level in blood]Onset: 704840-67-1156QhjjbqddFkwibgbq codes; unclassified (20 sources)Confusional state; Translations: [Disorientation, unspecified]Onset: 09-16-2020 Resolved: 971725-31-4748TjgdqvqdIdtaapyjauf; intervertebral disc disorders; other back problems (20 sources)Spinal stenosis in cervical region; Translations: [Spinal stenosis, cervical region]Onset: 12-20-2018 Resolved: 950064-28-7675AauatbhtUxaxn infection (20 sources)Disease caused by 2019-nCoV; Translations: [COVID-19]Onset: 09-20-2020 Resolved: 908500-91-4454Kcszophb Results Test NameValueInterpretationReference RangeFacilityBASIC METABOLIC PANELon 13-02-4064Ioieb gap [Moles/Vol]9 mmol/LNormal5-15ProUniversity Hospitals Health Systemca [facility] Comment on above:Performed By: #### YELENA, 68431-0, 82921-0, PINR, CBCA #### [facility] ([id number]) [address] [place] [address] 33057 #### HA1C #### [facility] ([id number]) [address] [facility], [address] [place], [place] [address]Nhsdtkf [Mass/Vol]8.5 mg/dLNormal8.5-10.5Pro[facility] HospitalComment on above:Performed By: #### YELENA, 97503-0, 73004-9, PINR, CBCA #### [facility] ([id number]) [address] [place] [address] 94830 #### HA1C #### [facility] ([id number]) [address], [address] [place], [place] [address]Yyaddcyo [Moles/Vol]105 mmol/FMtojou99-674BwkBjsnqdTogus VA Medical CenterComment on above:Performed By: #### YELENA, 69310-1, 37834-6, PINR, CBCA #### [facility] ([id number]) [address] [place] [address] 93141 #### HA1C #### [facility] ([id number]) [address] [facility], [address] [place], [place] [address]IR0 [Moles/Vol]23 mmol/DAcnmlo28-79PzdBqysboMcKitrick Hospital Comment on above:Performed By: #### YELENA, 94850-2, 20283-4, PINR, CBCA #### [facility] ([id number]) [address] [place] [address] 32165 #### HA1C #### [facility] ([id number]) [address], [address] [place], [place] [address]Zhxxswsjll [Mass/Vol]1.43 mg/dLHigh0.70-1.20Togus VA Medical CenterComment on above:Result Comment: METHOD TRACEABLE TO IDMS STANDARD Performed By: #### YELENA, 31145-0, 02055-1, PINR, CBCA #### [facility] ([id number]) [address] [place] [address] 33960 #### HA1C #### [facility] ([id number]) [address] [facility] [facility] [facility], [address] [place], [place] [address]KOJ/1.73 sq M.predicted among non-blacks MDRD (S/P/Bld) [Vol rate/Area]50 mL/min/{1.73_m2}Low>=60ProAudie L. Murphy Memorial Va HospitalComment on above: Result Comment: eGFR not reported due to non-numeric value for Creatinine. Reported eGFR is based on the CKD-EPI 2021 equation that does not use a race coefficient.Performed By: #### YELENA, 59746-9, 57125-9, RADHA HAWKINS #### [facility] ([id number]) [address] [place] [address] 98124 #### HA1C #### [facility] ([id number]) [address], [address] [place], [place] [address]Svwpdzg [Mass/Vol]91 mg/aTKhvncu84-67FsuYljajcTogus VA Medical Center Comment on above:Performed By: #### YELENA, 58388-5, 79095-6, RADHA HAWKINS #### [facility] ([id number]) [address] [place] [address] 12753 #### HA1C #### [facility] ([id number]) [address], [address] [place], [place] [address]Xlxbxbptq [Moles/Vol]4.5 mmol/LNormal3.5-5.0ProAudie L. Murphy Memorial Va HospitalComment on above:Performed By: #### YELENA, 66081-4, 95913-8, RADHA HAWKINS #### [facility] ([id number]) [address] [place] [address] 95739 #### HA1C #### [facility] ([id number]) [address], [address] [place], [place] [address]Nhrbrt [Moles/Vol]137 mmol/HRqbayx418-782SyfOxdohi [facility]ont HospitalComment on above:Performed By: #### YELENA, 69072-8, 23805-2, PINLaura CBCA #### [facility] ([id number]) [address] [place] [address] 15212 #### HA1C #### [facility] ([id number]) [address], [address] [place], [place] [address]Mjqq nitrogen [Mass/Vol]15 mg/dLNormal5-27Pro[facility] HospitalComment on above:Performed By: #### YELENA, 28092-4, 09775-6, PINR, CBCA #### [facility] ([id number]) [address] [place] [address] 83689 #### HA1C #### [facility] ([id number]) [address], [address] [place], [place] [address]DKA WITH AUTO DIFFERENTIALon 70-53-7676OPURLKFNE ABSOLUTE COUNT BY AUTOMATED COUNT0.0 X10^9/LNormal0.0-0.2Pro[facility] HospitalComment on above:Performed By: #### YELENA, 10449-1, 80246-4, PINR, CBCA #### [facility] ([id number]) [address] [place] [address] 04084 #### HA1C #### [facility] ([id number]) [address] [facility], [address] [place], [place] [address]VONFYXNTP RELATIVE PERCENT BY AUTOMATED COUNT0.6 %Normal [facility] Medical CenterComment on above:Performed By: #### YELENA, 56423-9, 15224-7, PINR, CBCA #### [facility] ([id number]) [address] [place] [address] 21473 #### HA1C #### [facility] ([id number]) [address], [address] [place], [place] [address]ZSDXGVDUKZH DIFFERENTIAL TYPEAUTOMATED DIFFERENTIALNormal [facility] Medical CenterComment on above:Performed By: #### YELENA, 00786-7, 65147-6, PINR, CBCA #### [facility] ([id number]) [address] [place] [address] 78869 #### HA1C #### [facility] ([id number]) [address] [place], [place] [address]Jbvkxsfgczd (Bld) [#/Vol]0.2 10*3/uLNormal0.0-0.4T[facility] VA Medical CenterComment on above:Performed By: #### YELENA, 66564-5, 24953-3, PINR, CBCA #### [facility] ([id number]) [address] [place] [address] 94443 #### HA1C #### [facility] ([id number]) [address], [address] [place], [place] [address]KIHEJOOUKMO RELATIVE PERCENT BY AUTOMATED COUNT3.3 %Normal ProMWest Hills HospitalComment on above:Performed By: #### YELENA, 75287-6, 40611-1, PINR, CBCA #### [facility] ([id number]) [address] [place] [address] 57066 #### HA1C #### [facility] ([id number]) [address], [address] [place], [place] [address]Egingwttvcy distribution width (RBC) [Ratio]14.5 %Xsepmo07.5-15 [facility] Medical CenterComment on above:Performed By: #### YELENA, 74500-5, 06689-9, PINR, CBCA #### [facility] ([id number]) [address] [place] [address] 32726 #### HA1C #### [facility] ([id number]) [address], [address] [place], [place] [address]Rvpsyztwps (Bld) [Volume fraction]39.8 %Yoshog10-84MucAojxljTogus VA Medical CenterComment on above:Performed By: #### YELENA, 01396-2, 68986-1, PINR, CBCA #### [facility] ([id number]) [address] [place] [address] 44241 #### HA1C #### [facility] ([id number]) [address] [place], [place] [address]Dpdenbnszn (Bld) [Mass/Vol]13.3 g/nHDxerqn44-00PhnAvaocwAudie L. Murphy Memorial Va HospitalComment on above:Performed By: #### YELENA, 19961-9, 87789-1, PINR, CBCA #### [facility] ([id number]) [address] [place] [address] 70607 #### HA1C #### [facility] ([id number]) [address], [address] [place] [address]Quarquutwsl (Bld) [#/Vol]1.4 10*3/uLNormal1.0-3.5Pro[facility] HospitalComment on above:Performed By: #### YELENA, 80502-2, 93703-8, PINR, CBCA #### [facility] ([id number]) [address] [place] [address] 92416 #### HA1C #### [facility] ([id number]) [address], [address] [place], [place] [address]XYNQFIPTTLL RELATIVE PERCENT BY AUTOMATED COUNT20.4 %Normal [facility] HospitalComment on above:Performed By: #### YELENA, 01423-2, 48683-2, PINR, CBCA #### [facility] ([id number]) [address] [place] [address] 15476 #### HA1C #### [facility] ([id number]) [address], [address] [place], [place] [address]PCW (RBC) [Entitic mass]29.3 zyJxdxyg74-41EpoOzkaloAudie L. Murphy Memorial Va HospitalComment on above:Performed By: #### YELENA, 65945-1, 54816-0, PINR, CBCA #### [facility] ([id number]) [address] [place] [address] 97090 #### HA1C #### [facility] ([id number]) [address] [place], [place] [address]UEGZ (RBC) [Mass/Vol]33.4 g/sZEmgwfb68-64CigSdxnsbAudie L. Murphy Memorial Va HospitalComment on above:Performed By: #### YELENA, 69447-7, 10426-6, PINR, CBCA #### [facility] ([id number]) [address] [place] [address] 90291 #### HA1C #### [facility] ([id number]) [address], [address] [place], [place] [address]YRF (RBC) [Entitic vol]88 rFXwcsjq43-545HfaQvshvj [facility] HospitalComment on above:Performed By: #### YELENA, 85757-8, 37765-4, PINR, CBCA #### [facility] ([id number]) [address] [place] [address] 42754 #### HA1C #### [facility] ([id number]) [address], [address] [place], [place] [address]Chzugljbv (Bld) [#/Vol]0.4 10*3/uLNormal0.0-0.9ProAudie L. Murphy Memorial Va HospitalComment on above:Performed By: #### YELENA, 10874-9, 85902-8, PINR, CBCA #### [facility] ([id number]) [address] [place] [address] 72882 #### HA1C #### [facility] ([id number]) [address] [place], [place] [address]PUURWNVUP RELATIVE PERCENT BY AUTOMATED COUNT5.4 %Normal [facility] HospitalComment on above:Performed By: #### YELENA, 57090-6, 32672-0, PINR, CBCA #### [facility] ([id number]) [address] [place] [address] 93319 #### HA1C #### [facility] ([id number]) [address], [address] [place], [place] [address]SCYSWNPKULP ABSOLUTE COUNT BY AUTOMATED COUNT4.8 X10^9/LNormal 1.5-6.6ProUniversity Hospitals Health Systemca [facility] HospitalComment on above:Performed By: #### YELENA, 73661- 7, 92576-8, PINR, CBCA #### [facility] ([id number]) [address] [place] [address] 47181 #### HA1C #### [facility] ([id number]) [address], [address] [place], [place] [address]LCYMVQGUQAO RELATIVE PERCENT BY AUTOMATED COUNT70.3 %Normal [facility] Medical CenterComment on above:Performed By: #### YELENA, 42896-4, 94537-9, PINR, CBCA #### [facility] ([id number]) [address] [place] [address] 59896 #### HA1C #### [facility] ([id number]) [address], [address] [place], [place] [address]Jokgevib mean volume (Bld) [Entitic vol]7.3 fLNormal7-12 [facility] Medical CenterComment on above:Performed By: #### YELENA, 72525-4, 50234-2, PINR, CBCA #### [facility] ([id number]) [address] [place] [address] 63835 #### HA1C #### [facility] ([id number]) [address], [address] [place], [place] [address]Nuoaeznoi (Bld) [#/Vol]185 10*3/eLXpgpcv018-070OjwXnqthf [facility] HospitalComment on above:Performed By: #### YELENA, 70007-5, 92440-3, PINLaura, PARVEZA #### [facility] ([id number]) [address] [place] [address] 95394 #### HA1C #### [facility] ([id number]) [address] [facility], [address] [place], [place] [address]QYM COUNT4.54 X10^12/LNormal4.1-5.7[facility] Comment on above:Performed By: #### YELENA, 63963-6, 58346-5, PINPARVEZ SanchezA #### [facility] ([id number]) [address] [place] [address] 48871 #### HA1C #### [facility] ([id number]) [address] [facility], [address] [place] [address]XXT (Bld) [#/Vol]6.8 10*3/uLNormal4-11[facility] Comment on above:Performed By: #### YELENA, 37548-9, 34267-7, SHRUTHI, CBCA #### [facility] ([id number]) [address] [place] [address] 64191 #### HA1C #### [facility] ([id number]) [address] [facility], [address] [place], [place] [address]XI BRAIN WO CONTon 12-31-4906NH BRAIN WO CONTCT BRAIN WO CONT EXAM: [...] by Kane Argueta MD on 07/18/2025 4:03 [facility] CERVICAL SPINE WO CONTon 42-60-5407NV CERVICAL SPINE WO CONTCT CERVICAL SPINE WO [...] by Kane Argueta MD on 07/18/2025 4:02 PMNormalProAudie L. Murphy Memorial Va Hospital MAGNESIUMon 82-44-4468Qzjwnniam [Mass/Vol]1.7 mg/dLLow1.8-2.6ProAudie L. Murphy Memorial Va HospitalComment on above:Performed By: #### YELENA, 88779-8, 57664-0, PINR, CBCA #### [facility] ([id number]) [address] [place] [address] 18523 #### HA1C #### [facility] ([id number]) [address] [place], [place] [address]GKNV I, HIGH SENSITIVITY 1 HOURon 78-37-9966NTMXRMSH I, HIGH SENSITIVITY5 ng/LNormal<21ProAudie L. Murphy Memorial Va HospitalComment on above:Performed By: #### YELENA, 27230-5, 38675-9, PINR, CBCA #### [facility] ([id number]) [address] [place] [address] 25678 #### HA1C #### [facility] ([id number]) [address] [facility] [facility], [address] [place], [place] [address]MEWTFOQZ I, HIGH SENSITIVITY 0 HOURon 35-42-3703QPIVPMFZ I, HIGH SENSITIVITY4 ng/LNormal<21ProAudie L. Murphy Memorial Va HospitalComment on above:Performed By: #### YELENA, 52575-7, 18655-0, PINR, CBCA #### [facility] ([id number]) [address] [place] [address] 61567 #### HA1C #### [facility] ([id number]) [address] [place], [place] [address]FV Hip - right 3 Viewson 86-43-4284Rppakkw Result: AP and lateral right hip: No [...] surgical changes to proximal femur. No hardware complication.[facility] CenterXR [facility] - right 3 Viewson 35-21-4279Koxnitvje Study observation (narrative)[facility] 60-75-7792sPHX Coag (Bld) [Time]29 dNuzzuu95-16OdjOistumTogus VA Medical Center Comment on above:Performed By: #### YELENA, 00476-8, 22652-9, PINR, CBCA #### [facility] ([id number]) [address] [place] [address] 80730 #### HA1C #### [facility] ([id number]) [address] [place], [place] [address]KLHWC METABOLIC PANELon 65-60-3357Dkksz gap [Moles/Vol]9 mmol/L Normal5-15[facility] Medical CenterComment on above:Performed By: #### YELENA, 40473-3, 84426-1, PINR, CBCA #### [facility] ([id number]) [address] [place] [address] 26929 #### HA1C #### [facility] ([id number]) [address] [place], [place] [address]Hwhcpxf [Mass/Vol]8.5 mg/dLNormal8.5-10.5[facility] HospitalComment on above:Performed By: #### YELENA, 85320-8, 43532-4, PINR, CBCA #### [facility] ([id number]) [address] [place] [address] 91775 #### HA1C #### [facility] ([id number]) [address] [place], [place] [address]Jvlsaylh [Moles/Vol]107 mmol/RAunukj56-193NvmNnquayTogus VA Medical CenterComment on above:Performed By: #### YELENA, 66752-0, 38353-1, RADHA HAWKINS #### [facility] ([id number]) [address] [place] [address] 22511 #### HA1C #### [facility] ([id number]) [address] [place], [place] [address]CI9 [Moles/Vol]26 mmol/BSmgexy14-15BclBholdgMcKitrick Hospital Comment on above:Performed By: #### YELENA, 46218-0, 47453-2, RADHA HAWKINS #### [facility] ([id number]) [address] [place] [address] 79976 #### HA1C #### [facility] ([id number]) [address] [place], [place] [address]Riczpbydte [Mass/Vol]1.52 mg/dLHigh0.70-1.20ProAudie L. Murphy Memorial Va HospitalComment on above:Result Comment: METHOD TRACEABLE TO IDMS STANDARD Performed By: #### YELENA, 37547-8, 16292-7, RADHA HAWKINS #### [facility] ([id number]) [address] [place] [address] 32041 #### HA1C #### [facility] ([id number]) [address] [place], [place] [address]JGM/1.73 sq M.predicted among non-blacks MDRD (S/P/Bld) [Vol rate/Area]47 mL/min/{1.73_m2}Low>=60ProAudie L. Murphy Memorial Va HospitalComment on above: Result Comment: eGFR not reported due to non-numeric value for Creatinine. Reported eGFR is based on the CKD-EPI 2020 equation that does not use a race coefficient.Performed By: #### YELENA, 08275-2, 94349-1, PINR, CBCA #### [facility] ([id number]) [address] [place] [address] 15698 #### HA1C #### [facility] ([id number]) [address] [place], [place] [address]Fjxzgym [Mass/Vol]121 mg/hUAurw30-42EwnCiehgxAudie L. Murphy Memorial Va Hospital Comment on above:Performed By: #### YELENA, 01213-3, 40492-4, PINR, CBCA #### [facility] ([id number]) [address] [place] [address] 29135 #### HA1C #### [facility] ([id number]) [address] [facility], [address] [place], [place] [address]Lwmjvaime [Moles/Vol]3.8 mmol/LNormal3.5-5.0ProAudie L. Murphy Memorial Va HospitalComment on above:Performed By: #### YELENA, 48190-5, 45371-6, PINR, CBCA #### [facility] ([id number]) [address] [place] [address] #### HALory #### [facility] ([id number]) [address], [address] [place], [place] [address]Srpify [Moles/Vol]142 mmol/OKbdbwr622-736LlxYuwdqu [facility]rem[facility] HospitalComment on above:Performed By: #### YELENA, 66720-4, 70474-0, PINR, CBCA #### [facility] ([id number]) [address] [place] [address] #### HA1C #### [facility] ([id number]) [address], [address] [place], [place] [address]Kgqs nitrogen [Mass/Vol]21 mg/dLNormal5-27ProAudie L. Murphy Memorial Va HospitalComment on above:Performed By: #### YELENA, 67922-1, 23054-0, PINR, CBCA #### [facility] ([id number]) [address] [place] [address] #### HA1C #### [facility] ([id number]) [address], [address] [place], [place] [address]MCX WITH AUTO DIFFERENTIALon [id number] ABSOLUTE COUNT (10*3/UL) BY AUTOMATED COUNT0.0 10*3/uLNormal0.0-0.2PVista Surgical Hospitalica [facility] Comment on above:Performed By: #### YELENA, 35023-8, 71171-6, PINR, CBCA #### [facility] ([id number]) [address] [place] [address] #### HA1C #### [facility] ([id number]) [address], [address] [place], [place] [address]MHAXJFTDW RELATIVE PERCENT BY AUTOMATED COUNT0.5 %Normal [facility] CenterComment on above:Performed By: #### YELENA, 69960-3, 83505-5, PINR, CBCA #### [facility] ([id number]) [address] [place] [address] #### HA1C #### [facility] ([id number]) [address], [address] [place], [place] [address]VEAIHCYHIVZ DIFFERENTIAL TYPEAUTOMATED DIFFERENTIALNormal [facility] CenterComment on above:Performed By: #### YELENA, 34918-2, 60516-1, PINR, CBCA #### [facility] ([id number]) [address] [place] [address] #### HA1C #### [facility] ([id number]) [address], [address] [place], [place] [address]Ewjqihpwaqt (Bld) [#/Vol]0.2 10*3/uLNormal0.0-0.4T[facility] VA Medical CenterComment on above:Performed By: #### YELENA, 85461-7, 43560-8, PINR, CBCA #### [facility] ([id number]) [address] [place] [address] #### HA1C #### [facility] ([id number]) [address] [place] [address], [address] [place] [id number] RELATIVE PERCENT BY AUTOMATED COUNT3.7 %Normal ProMWest Hills HospitalComment on above:Performed By: #### YELENA, 12721-8, 30901-2, PINR, CBCA #### [facility] ([id number]) [address] [place] [address] #### HA1C #### [facility] ([id number]) [address] [place] [address], [address] [place] [address]Loexlmxnqis distribution width (RBC) [Ratio]15.2 %High11.5-15 [facility] CenterComment on above:Performed By: #### YELEAN, 30380-2, 24997-3, PINR, CBCA #### [facility] ([id number]) [address] [place] [address] 74288 #### HA1C #### [facility] ([id number]) [address] [place] [address], [address] [place], [place] [address]Pegmortmrj (Bld) [Volume fraction]40.1 %Wmnvqo07-43GabXgrovdAudie L. Murphy Memorial Va HospitalComment on above:Performed By: #### YELENA, 15665-5, 68975-8, PINR, CBCA #### [facility] ([id number]) [address] [place] [address] 49806 #### HA1C #### [facility] ([id number]) [address] [place] [address], [address] [place], [place] [address]Ipzexyduap (Bld) [Mass/Vol]13.4 g/zKKosuxw87-44YphEudalkTogus VA Medical CenterComment on above:Performed By: #### YELENA, 85661-3, 92362-1, PINR, CBCA #### [facility] ([id number]) [address] [place] [address] 85534 #### HA1C #### [facility] ([id number]) [address], [address] [place], [place] [address]FNXXZFLDOMJ ABSOLUTE COUNT (10*3/UL) BY AUTOMATED COUNT2.0 10*3/uLNormal1.0-3.5ProMedica [facility] Municipal HospitalComment on above:Performed By: #### YELENA, 71831-1, 14357-1, PINR, CBCA #### [facility] ([id number]) [address] [place] [address] 90909 #### HA1C #### [facility] ([id number]) [address], [address] [place], [place] [address]DDNFUZXKCNZ RELATIVE PERCENT BY AUTOMATED COUNT32.6 %Normal ProMmarshall medical center southa [facility] Municipal HospitalComment on above:Performed By: #### YELENA, 15360-8, 15100-0, PINR, CBCA #### [facility] ([id number]) [address] [place] [address] 74857 #### HA1C #### [facility] ([id number]) [address], [address] [place], [place] [address]UYE (RBC) [Entitic mass]29.0 fiMgqrsz71-50YsiCljnkwAudie L. Murphy Memorial Va HospitalComment on above:Performed By: #### YELENA, 11682-6, 34997-6, PINR, CBCA #### [facility] ([id number]) [address] [place] [address] 78460 #### HA1C #### [facility] ([id number]) [address], [address] [place], [place] [address]YARQ (RBC) [Mass/Vol]33.4 g/zUOefnsn40-04AofAradodAudie L. Murphy Memorial Va HospitalComment on above:Performed By: #### YELENA, 03755-7, 62604-0, PINR, CBCA #### [facility] ([id number]) [address] [place] [address] 18774 #### HA1C #### [facility] ([id number]) [address] [facility], [address] [place], [place] [address]QGU (RBC) [Entitic vol]87 mHAbhvqh72-428ZufZolymr [facility]ont HospitalComment on above:Performed By: #### YELENA, 75755-0, 08698-9, PINR, CBCA #### [facility] ([id number]) [address] [place] [address] 69786 #### HA1C #### [facility] ([id number]) [address] [facility], [address] [place], [place] [address]UYNSOBWYJ ABSOLUTE COUNT (10*3/UL) BY AUTOMATED COUNT0.5 10*3/uL Normal0.0-0.9ProAudie L. Murphy Memorial Va HospitalComment on above:Performed By: #### YELENA, 94532-5, 68225-0, PINR, CBCA #### [facility] ([id number]) [address] [place] [address] 05301 #### HA1C #### [facility] ([id number]) [address], [address] [place], [place] [address]TGELBIVSI RELATIVE PERCENT BY AUTOMATED COUNT8.2 %Normal ProMWest Hills HospitalComment on above:Performed By: #### YELENA, 73192-7, 39961-1, PINR, CBCA #### [facility] ([id number]) [address] [place] [address] 74136 #### HA1C #### [facility] ([id number]) [address], [address] [place], [place] [address]IANUSAHQFMQ ABSOLUTE COUNT BY AUTOMATED COUNT3.4 10*3/uLNormal 1.5-6.6[facility] Medical CenterComment on above:Performed By: #### YELENA, 88237- 7, 28295-0, PINR, CBCA #### [facility] ([id number]) [address] [place] [address] 48177 #### HA1C #### [facility] ([id number]) [address] [facility], [address] [place], [place] [address]CAODTLWXOYT RELATIVE PERCENT BY AUTOMATED COUNT55.0 %Normal ProMWest Hills HospitalComment on above:Performed By: #### YELENA, 47638-5, 62055-7, PINR, CBCA #### [facility] ([id number]) [address] [place] [address] 27079 #### HALory #### [facility] ([id number]) [address], [address] [place], [place] [address]Crlubndf mean volume (Bld) [Entitic vol]7.1 fLNormal7-12 [facility] Medical CenterComment on above:Performed By: #### YELENA, 22664-8, 94239-8, PINR, CBCA #### [facility] ([id number]) [address] [place] [address] 54841 #### HA1C #### [facility] ([id number]) [address], [address] [place], [place] [address]Hmgxjjjpd (Bld) [#/Vol]172 10*3/bNGgqvyv911-323VtoOilueg [facility]ont HospitalComment on above:Performed By: #### YELENA, 57742-1, 20677-4, PINR, CBCA #### [facility] ([id number]) [address] [place] [address] 95115 #### HA1C #### [facility] ([id number]) [address], [address] [place], [place] [address]JVZ COUNT4.63 X10E12/LNormal4.1-5.7[facility] Comment on above:Performed By: #### YELENA, 21000-8, 82815-5, PINR, CBCA #### [facility] ([id number]) [address] [place] [address] 20495 #### HA1C #### [facility] ([id number]) [address] [facility], [address] [place], [place] [address]WHV (Bld) [#/Vol]6.2 10*3/uLNormal4-11[facility] Comment on above:Performed By: #### YELENA, 22190-2, 68580-7, PINR, CBCA #### [facility] ([id number]) [address] [place] [address] 53451 #### HA1C #### [facility] ([id number]) [address] [facility], [address] [place], [place] [address]V-OQYXFaw 05-24-2025D UVHOS708 ng/mLNormal1-255[facility] Medical CenterComment on above:Result Comment: Results <255 ng/mL DDU: The presensence of a VTE can safely be excluded with a negative D-Dimer result and Wells score. A negative result doesn't exclude the possibility of DIC. The test should be repeated along with other diagnostic tests if the patient's symptoms persist or worsen.Performed By: #### YELENA, 36721-2, 99251-1, PINR, CBCA #### [facility] ([id number]) [address] [place] [address] 14264 #### HA1C #### [facility] ([id number]) [address], [address] [place], [place] [address]GNCEOBO W/ REFLEXon 52-46-4508NWDFHED W/REFLEX0.7 mmol/LNormal 0.4-2.0Pro[facility] Municipal HospitalComment on above:Order Comment: Result did not trigger repeat Lactate,re-order if needed.Performed By: #### YELENA, 19153-7, 08072-9, PINR, CBCA #### [facility] ([id number]) [address] [place] [address] 30458 #### HA1C #### [facility] ([id number]) [address], [address] [place] [address]HLHIBTIUFsx 52-32-7752Jshkosisp [Mass/Vol]1.7 mg/dLLow1.8-2.6 [facility] HospitalComment on above:Performed By: #### YELENA, 40216-6, 48611-0, PINR, CBCA #### [facility] ([id number]) [address] [place] [address] 46542 #### HA1C #### [facility] ([id number]) [address], [address] [place], [place] [address]GIJWCLN AND INRon 46-55-0849TAN1.7Yhcxxd7.9-1.2[facility] HospitalComment on above:Performed By: #### YELENA, 85392-5, 94870-1, PINR, CBCA #### [facility] ([id number]) [address] [place] [address] 53921 #### HA1C #### [facility] ([id number]) [address], [address] [place], [place] [address]FD Coag (PPP) [Time]12.3 sNormal9.8-13.2[facility] Municipal HospitalComselect specialty hospital on above:Performed By: #### BMP, 01378-7, 47249-3, RADHA HAWKINS #### [facility] ([id number]) [address] [facility], [place] [address] #### HA1C #### [facility] ([id number]) [address] [place] [address], [address] [place], [place] [address]KFJB/FLU A+B/RSV BY NAAT/MOLECULAR (M4RT COLLECTION TUBE)on 93-47-0913XKUN/FLU A+B/RSV BY NAAT/MOLECULAR (M4RT COLLECTION TUBE)FLU A PCR Negative FLU B PCR Negative RSV BY PCR Negative SARS COV 2 BY PCR Not DetectedNormalNot DetectedProMedica Avalon Municipal HospitalComselect specialty hospital on above:Order Comment: The Xpert Xpress SARS-CoV-2/Flu/RSV [...] operators who are performing tests using either [employer] DX or [employer]urskill and is limited to laboratories that meet [...] resolved with specimen repeat.Fact Sheet for Healthcare Providers:https://www.fda.gov/media/810999/downloadFact Sheet for Patients:https://www.fda.gov/media/687710/downloadPerformed By: #### YELENA, 49267- 7, 07296-4, PINR, CBCA #### [facility] ([id number]) [address] [place] [address] #### HA1C #### [facility] ([id number]) [address], [address] [place], [place] [address]KCPE I, HIGH SENSITIVITY 1 HOURon 86-03-7032GNLJEVOE I, HIGH SENSITIVITY5 ng/LNormal<21ProAudie L. Murphy Memorial Va HospitalComment on above:Performed By: #### YELENA, 81233-9, 71394-6, PINR, CBCA #### [facility] ([id number]) [address] [place] [address] 08712 #### HA1C #### [facility] ([id number]) [address], [address] [place], [place] [address]WBFFYIQU I, HIGH SENSITIVITY 0 HOURon 14-40-8251YKEBLARO I, HIGH SENSITIVITY5 ng/LNormal<21ProAudie L. Murphy Memorial Va HospitalComment on above:Performed By: #### YELENA, 86384-3, 57450-9, PINR, CBCA #### [facility] ([id number]) [address] [place] [address] 04949 #### HA1C #### [facility] ([id number]) [address], [address] [place], [place] [address]MP CHEST 1 VWon 31-23-0137ZI CHEST 1 VWXR CHEST 1 VW Single [...] Finalized by Caleb Martinez on 05/24/2025 8:43 AMNormalTogus VA Medical Center BASIC METABOLIC PANELon 30-27-3032Rdwnn gap [Moles/Vol]4 mmol/LLow5-15[facility] Medical CenterComment on above:Performed By: #### YELENA, 20795-5, 49870-4, PINLaura, CBCA #### [facility] ([id number]) [address] [place] [address] 14808 #### HA1C #### [facility] ([id number]) [address] [facility], [address] [place], [place] [address]Moqjnlg [Mass/Vol]8.0 mg/dLLow8.5-10.5PMcKitrick Hospital Comment on above:Performed By: #### YELENA, 50430-4, 48899-8, PINR, CBCA #### [facility] ([id number]) [address] [place] [address] 60887 #### HA1C #### [facility] ([id number]) [address] [facility], [address] [place], [place] [address]Vzgaxiyt [Moles/Vol]111 mmol/PEesj24-252DudJywaofTogus VA Medical CenterComment on above:Performed By: #### YELENA, 74145-5, 26427-0, PINR, CBCA #### [facility] ([id number]) [address] [place] [address] 87531 #### HA1C #### [facility] ([id number]) [address], [address] [place], [place] [address]UT3 [Moles/Vol]23 mmol/JZqyjjp51-72IpoQtirqaMcKitrick Hospital Comment on above:Performed By: #### YELENA, 62690-6, 73243-4, RADHA HAWKINS #### [facility] ([id number]) [address] [place] [address] 17550 #### HA1C #### [facility] ([id number]) [address] [facility], [address] [place], [place] [address]Dgmcepbylt [Mass/Vol]1.69 mg/dLHigh0.70-1.20[facility] VA Medical CenterComment on above:Result Comment: METHOD TRACEABLE TO IDMS STANDARD Performed By: #### YELENA, 50727-0, 10341-0, RADHA HAWKINS #### [facility] ([id number]) [address] [place] [address] 93950 #### HA1C #### [facility] ([id number]) [address] [facility], [address] [place], [place] [address]FAS/1.73 sq M.predicted among non-blacks MDRD (S/P/Bld) [Vol rate/Area]41 mL/min/{1.73_m2}Low>=60T[facility] VA Medical CenterComment on above: Result Comment: eGFR not reported due to non-numeric value for Creatinine. Reported eGFR is based on the CKD-EPI 2021 equation that does not use a race coefficient.Performed By: #### YELENA, 53351-3, 38329-6, PINLaura, CBCA #### [facility] ([id number]) [address] [place] [address] 50260 #### HA1C #### [facility] ([id number]) [address] [facility], [address] [place], [place] [address]Jfxcuom [Mass/Vol]89 mg/hBEinocu45-02ZsiSnopxuTogus VA Medical Center Comment on above:Performed By: #### YELENA, 66828-4, 89831-7, PINR, CBCA #### [facility] ([id number]) [address] [place] [address] 93680 #### HA1C #### [facility] ([id number]) [address], [address] [place], [place] [address]Fgbbwkhlg [Moles/Vol]4.3 mmol/LNormal3.5-5.0ProAudie L. Murphy Memorial Va HospitalComment on above:Performed By: #### YELENA, 41833-1, 95568-6, PINR, CBCA #### [facility] ([id number]) [address] [place] [address] 21987 #### HA1C #### [facility] ([id number]) [address], [address] [place], [place] [address]Bwknwg [Moles/Vol]138 mmol/GOfuqre449-589AgeXaagmc [facility]remont HospitalComment on above:Performed By: #### YELENA, 16618-0, 42712-9, PINR, CBCA #### [facility] ([id number]) [address] [place] [address] 56602 #### HA1C #### [facility] ([id number]) [address], [address] [place], [place] [address]Lswy nitrogen [Mass/Vol]25 mg/dLNormal5-27ProAudie L. Murphy Memorial Va HospitalComment on above:Performed By: #### YELENA, 22578-5, 73925-5, PINR, CBCA #### [facility] ([id number]) [address] [place] [address] 52117 #### HA1C #### [facility] ([id number]) [address], [address] [place], [place] [address]EKE WITH AUTO DIFFERENTIALon 89-85-0286CAEOEGMDC ABSOLUTE COUNT (10*3/UL) BY AUTOMATED COUNT0.0 10*3/uLNormal0.0-0.2[facility] Comment on above:Performed By: #### YELENA, 21292-5, 11290-0, PINR, CBCA #### [facility] ([id number]) [address] [place] [address] 28737 #### HA1C #### [facility] ([id number]) [address] [place] [address], [address] [place], [place] [address]CNVNRDFVO RELATIVE PERCENT BY AUTOMATED COUNT0.3 %Normal ProMWest Hills HospitalComment on above:Performed By: #### YELENA, 59780-5, 36658-0, PINR, CBCA #### [facility] ([id number]) [address] [place] [address] 62290 #### HA1C #### [facility] ([id number]) [address] [place] [address], [address] [place] [address]WNZJVZZWNYZ DIFFERENTIAL TYPEAUTOMATED DIFFERENTIALNormal [facility] Medical CenterComment on above:Performed By: #### YELENA, 99695-4, 19338-7, PINR, CBCA #### [facility] ([id number]) [address] [place] [address] 13697 #### HA1C #### [facility] ([id number]) [address] [place] [address], [address] [place], [place] [address]Rssfgvdefgw (Bld) [#/Vol]0.2 10*3/uLNormal0.0-0.4[facility] HospitalComment on above:Performed By: #### YELENA, 18875-9, 57841-2, PINR, CBCA #### [facility] ([id number]) [address] [place] [address] 44665 #### HA1C #### [facility] ([id number]) [address] [place], [place] [address]ZPXQSYNICTG RELATIVE PERCENT BY AUTOMATED COUNT2.9 %Normal [facility] Medical CenterComment on above:Performed By: #### YELENA, 43446-6, 60149-5, PINR, CBCA #### [facility] ([id number]) [address] [place] [address] 34023 #### HA1C #### [facility] ([id number]) [address] [facility], [address] [place], [place] [address]Zjduojhasge distribution width (RBC) [Ratio]14.3 %Jgbikr68.5-15 [facility] Medical CenterComment on above:Performed By: #### YELENA, 30203-3, 02684-5, PINR, CBCA #### [facility] ([id number]) [address] [place] [address] 02176 #### HA1C #### [facility] ([id number]) [address] [facility], [address] [place], [place] [address]Kgmstlpkzq (Bld) [Volume fraction]39.7 %Gcaste54-22XnuUtzknzAudie L. Murphy Memorial Va HospitalComment on above:Performed By: #### YELENA, 73854-0, 78456-6, PINR, CBCA #### [facility] ([id number]) [address] [place] [address] 86040 #### HA1C #### [facility] ([id number]) [address] [facility], [address] [place], [place] [address]Qwpcnyxemi (Bld) [Mass/Vol]13.4 g/qWGxvnja87-47RlvIirpitTogus VA Medical CenterComment on above:Performed By: #### YELENA, 44574-0, 24527-7, PINR, CBCA #### [facility] ([id number]) [address] [place] [address] 97632 #### HA1C #### [facility] ([id number]) [address], [address] [place], [place] [address]RUFLPLZRLGW ABSOLUTE COUNT (10*3/UL) BY AUTOMATED COUNT2.1 10*3/uLNormal1.0-3.5[facility] HospitalComment on above:Performed By: #### YELENA, 80892-8, 17981-6, PINR, CBCA #### [facility] ([id number]) [address] [place] [address] 50414 #### HA1C #### [facility] ([id number]) [address] [place], [place] [address]GIGYCYQYLQJ RELATIVE PERCENT BY AUTOMATED COUNT32.7 %Normal [facility] HospitalComment on above:Performed By: #### YELENA, 87853-0, 62232-4, PINR, CBCA #### [facility] ([id number]) [address] [place] [address] 02542 #### HA1C #### [facility] ([id number]) [address], [address] [place], [place] [address]JLL (RBC) [Entitic mass]29.3 soXflmtg54-91BweKkptdsAudie L. Murphy Memorial Va HospitalComment on above:Performed By: #### YELENA, 62680-6, 33080-9, PINR, CBCA #### [facility] ([id number]) [address] [place] [address] 05674 #### HA1C #### [facility] ([id number]) [address] [place], [place] [address]NMDB (RBC) [Mass/Vol]33.8 g/zKYbwndi72-32WkzDsdrpwAudie L. Murphy Memorial Va HospitalComment on above:Performed By: #### YELENA, 68736-0, 21564-0, PINR, CBCA #### [facility] ([id number]) [address] [place] [address] 64352 #### HA1C #### [facility] ([id number]) [address] [place], [place] [address]DXX (RBC) [Entitic vol]87 kGFklrre57-288ZtiGpvtgl [facility] HospitalComment on above:Performed By: #### YELENA, 55861-0, 07397-4, PINR, CBCA #### [facility] ([id number]) [address] [place] [address] 03126 #### HA1C #### [facility] ([id number]) [address] [facility], [address] [place], [place] [address]UZXOAYSLF ABSOLUTE COUNT (10*3/UL) BY AUTOMATED COUNT0.5 10*3/uL Normal0.0-0.9ProAudie L. Murphy Memorial Va HospitalComment on above:Performed By: #### YELENA, 48396-5, 74407-7, PINR, CBCA #### [facility] ([id number]) [address] [place] [address] 75523 #### HA1C #### [facility] ([id number]) [address] [place], [place] [address]KHRGVFXXW RELATIVE PERCENT BY AUTOMATED COUNT8.2 %Normal [facility] HospitalComment on above:Performed By: #### YELENA, 86680-4, 61795-3, PINR, CBCA #### [facility] ([id number]) [address] [place] [address] 42981 #### HA1C #### [facility] ([id number]) [address] [place], [place] [address]GKAHJATPOCK ABSOLUTE COUNT BY AUTOMATED COUNT3.6 10*3/uLNormal 1.5-6.6ProAudie L. Murphy Memorial Va HospitalComment on above:Performed By: #### YELENA, 00971- 7, 31905-8, PINR, CBCA #### [facility] ([id number]) [address] [place] [address] 00077 #### HA1C #### [facility] ([id number]) [address] [place], [place] [address]TSIPHEAFMCB RELATIVE PERCENT BY AUTOMATED COUNT55.9 %Normal [facility] CenterComment on above:Performed By: #### YELENA, 24163-0, 35431-1, PINR, CBCA #### [facility] ([id number]) [address] [place] [address] 90358 #### HA1C #### [facility] ([id number]) [address] [place], [place] [address]Jthlzaui mean volume (Bld) [Entitic vol]7.5 fLNormal7-12 [facility] CenterComment on above:Performed By: #### YELENA, 35757-1, 08055-9, PINR, CBCA #### [facility] ([id number]) [address] [place] [address] #### HA1C #### [facility] ([id number]) [address], [address] [place], [place] [address]Fjdszogbq (Bld) [#/Vol]194 10*3/nJIwoxjc084-209EigVilkub [facility] HospitalComment on above:Performed By: #### YELENA, 58135-2, 24829-7, PINR, CBCA #### [facility] ([id number]) [address] [place] [address] #### HA1C #### [facility] ([id number]) [address], [address] [place], [place] [address]FVO COUNT4.58 X10E12/LNormal4.1-5.7[facility] Comment on above:Performed By: #### YELENA, 15215-5, 22791-4, PINR, CBCA #### [facility] ([id number]) [address] [place] [address] #### HA1C #### [facility] ([id number]) [address] [facility], [address] [place], [place] [address]MES (Bld) [#/Vol]6.5 10*3/uLNormal4-11[facility] Comment on above:Performed By: #### YELENA, 11590-4, 93608-8, PINR, CBCA #### [facility] ([id number]) [address] [place] [address] #### HA1C #### [facility] ([id number]) [address] [place] [address], [address] [place] [address]LZGVBJTWEtv 66-97-9818Xzsqezktt [Mass/Vol]1.8 mg/dLNormal1.8-2.6 [facility] HospitalComment on above:Performed By: #### YELENA, 54441-5, 06099-2, PINR, CBCA #### [facility] ([id number]) [address] [place] [address] #### HA1C #### [facility] ([id number]) [address] [facility], [address] [place], [place] [address]Ljskikdzwj - Chemistry and Chemistry - challengeon 12-07-2024 [...] or absence of disease. TSH Qn4.48 m[IU]/LNOMS [facility] 86-00-1672Uxlmioyxng Organization Information Site ID: QPT Name: [employer] [facility] Address: [address] [place] [address], [address] [place] [address] Director: Ariel [facility] 12-07-2024 PSA, TOTAL0.32 ng/mLNormal< OR = 4.00Quest DiagnosticsComment on above:Result Comment: The total PSA value from this assay system is standardized against the WHO standard. The test result will be approximately 20% lower when compared to the equimolar-standardized total PSA (Kika Clarkridge). Comparison of serial PSA results should be interpreted with this fact in mind. This test was performed using the Siemens chemiluminescent method. Values obtained from different assay methods cannot be used interchangeably. PSA levels, regardless of value, should not be interpreted as absolute evidence of the presence or absence of disease.Performed By: #### 866, 899, 84139, 5324 #### [employer] [address], [address] [place] [address] Towel Sorter: Ariel Bermeo MDT3, [facility] 17-20-6453Euit T3 [Mass/Vol]3.2 pg/mLNormal2.3-4.2Quest DiagnosticsComment on above:Performed By: #### 866, 89Josr, 05416, 5363 #### [facility] [place] [address] Towel Sorter: Ariel Bermeo MDT4, [facility] 29-76-3348Ttxu T4 [Mass/Vol]1.1 ng/dLNormal0.8-1.8Quest DiagnosticsComment on above:Performed By: #### 866, 89Josr, 41691, 5363 #### [facility] [address], [address] [place] [address] Towel Sorter: Ariel Solo 34-90-9019JWP Qn4.48 m[IU]/LNormal 0.40-4.50Quest DiagnosticsComment on above:Performed By: #### 866, 899, 00844, 5363 #### [facility] [address], [address] [place] [address] Towel Sorter: Ariel GARCIA 2 Extremitieson 93-29-5942COMXSoutheast [facility] 07-25 NervesOrdered By: Tyler Sanchez on [id number] Work Phone: cbc AND AUTO DIFFon 08-70-3887PNLTJUNN BASOPHIL0.0 X10E9/LNormal0.0-0.2[facility] HospitalComment on above:Performed By: #### YELENA, 52598-1, 20794-2, PINR, CBCA #### [facility] ([id number]) [address] [place] [address] #### HA1C #### [facility] ([id number]) [address] [place], [place] [address], [address] [place], [place] [address]MONNRRLA NEUTROPHIL3.1 X10E9/LNormal1.5-6.6Togus VA Medical CenterComment on above:Performed By: #### YELENA, 08459-3, 61366-3, PINR, CBCA #### [facility] ([id number]) [address] [place] [address] 52113 #### HA1C #### [facility] ([id number]) [address] [place] [address], [address] [place], [place] [address]Fdnpaijam/100 WBC (Bld)0.4 %NormalProAudie L. [facility] Memorial Va Hospital Comment on above:Performed By: #### YELENA, 34994-5, 31126-2, PINR, CBCA #### [facility] ([id number]) [address] [place] [address] 56854 #### HA1C #### [facility] ([id number]) [address], [address] [place], [place] [address]Lbzqehbyhwc (Bld) [#/Vol]0.1 10*3/uLNormal0.0-0.4ProAudie L. Murphy Memorial Va HospitalComment on above:Performed By: #### YELENA, 42466-2, 65452-8, PINR, CBCA #### [facility] ([id number]) [address] [place] [address] 85612 #### HA1C #### [facility] ([id number]) [address], [address] [place], [place] [address]Mtzjmtmvgcu/100 WBC (Bld)2.0 %NormalProAudie L. [facility] Va Hospital Comment on above:Performed By: #### YELENA, 72155-9, 13703-8, PINR, CBCA #### [facility] ([id number]) [address] [place] [address] 89649 #### HA1C #### [facility] ([id number]) [address], [address] [place], [place] [address]Cctnasbcmbt distribution width (RBC) [Ratio]14.5 %Normal 11.5-15.0ProAudie L. Murphy Memorial Va HospitalComment on above:Performed By: #### YELENA, 88903-6, 42380-2, PINR, CBCA #### [facility] ([id number]) [address] [place] [address] 32522 #### HA1C #### [facility] ([id number]) [address], [address] [place], [place] [address]Iukwqnhjrb (Bld) [Volume fraction]39.2 %Iqaxgx49-47VuaRifijlAudie L. Murphy Memorial Va HospitalComment on above:Performed By: #### YELENA, 15191-9, 69331-9, PINR, CBCA #### [facility] ([id number]) [address] [place] [address] 67844 #### HALory #### [facility] ([id number]) [address] [facility], [address] [place], [place] [address]Kbrguajmlb (Bld) [Mass/Vol]13.3 g/oRDpydyt76.0-17.0ProAudie L. Murphy Memorial Va HospitalComment on above:Performed By: #### YELENA, 16611-5, 51512-5, PINR, CBCA #### [facility] ([id number]) [address] [place] [address] 77430 #### HALory #### [facility] ([id number]) [address] [facility], [address] [place], [place] [address]Tertfsgweaj (Bld) [#/Vol]2.0 10*3/uLNormal1.0-3.5ProMedica [facility] Municipal HospitalComment on above:Performed By: #### YELENA, 36365-6, 00962-9, PINR, CBCA #### [facility] ([id number]) [address] [place] [address] 82273 #### HA1C #### [facility] ([id number]) [address] [facility], [address] [place], [place] [address]Ugpwiqspuhs/100 WBC (Bld)34.9 %NormalProAudie L. [facility] Va Hospital Comment on above:Performed By: #### YELENA, 12182-5, 35803-0, PINR, CBCA #### [facility] ([id number]) [address] [place] [address] 37474 #### HA1C #### [facility] ([id number]) [address], [address] [place], [place] [address]AUU (RBC) [Entitic mass]29.8 tdKzfelq51-72YjmOkvrzlAudie L. Murphy Memorial Va HospitalComment on above:Performed By: #### YELENA, 36466-0, 99516-3, PINR, CBCA #### [facility] ([id number]) [address] [place] [address] 83135 #### HA1C #### [facility] ([id number]) [address] [facility], [address] [place], [place] [address]XWTV (RBC) [Mass/Vol]33.9 g/lVLjvqdb35-62NsvBpbwyvAudie L. Murphy Memorial Va HospitalComment on above:Performed By: #### YELENA, 23603-3, 05817-9, PINR, CBCA #### [facility] ([id number]) [address] [place] [address] 95899 #### HA1C #### [facility] ([id number]) [address], [address] [place], [place] [address]TQP (RBC) [Entitic vol]88 oNNfoexn96-866HugCgeuaq [facility]remont HospitalComment on above:Performed By: #### YELENA, 13966-0, 74736-0, PINR, CBCA #### [facility] ([id number]) [address] [place] [address] 70343 #### HA1C #### [facility] ([id number]) [address], [address] [place], [place] [address]Aaagflmvs (Bld) [#/Vol]0.5 10*3/uLNormal0-0.9ProAudie L. Murphy Memorial Va HospitalComment on above:Performed By: #### YELENA, 51277-3, 63194-1, PINR, CBCA #### [facility] ([id number]) [address] [place] [address] 86876 #### HA1C #### [facility] ([id number]) [address] [facility], [address] [place], [place] [address]Cfwasauwi/100 WBC (Bld)8.6 %[facility] Comment on above:Performed By: #### YELENA, 01635-8, 21881-1, PINR, CBCA #### [facility] ([id number]) [address] [place] [address] 91922 #### HA1C #### [facility] ([id number]) [address] [facility], [address] [place], [place] [address]Ivhvasgstjt/100 WBC (Bld)54.1 %[facility] Comment on above:Performed By: #### YELENA, 66120-0, 06100-3, PINR, CBCA #### [facility] ([id number]) [address] [place] [address] 46334 #### HA1C #### [facility] ([id number]) [address] [facility], [address] [place], [place] [address]Cyaqmnbb mean volume (Bld) [Entitic vol]8.0 fLNormal7-12 [facility] HospitalComment on above:Performed By: #### YELENA, 42727-9, 86605-9, PINR, CBCA #### [facility] ([id number]) [address] [place] [address] 61923 #### HA1C #### [facility] ([id number]) [address] [facility], [address] [place], [place] [address]Sjxuzxifv (Bld) [#/Vol]164 10*3/bHNwyinv164-540ZktVnkrln [facility] HospitalComment on above:Performed By: #### YELENA, 32714-0, 41212-4, PINR, CBCA #### [facility] ([id number]) [address] [place] [address] 06334 #### HA1C #### [facility] ([id number]) [address], [address] [place] [address]AXE COUNT4.45 X10E12/LNormal4.10-5.70[facility] Comment on above:Performed By: #### YELENA, 06694-5, 94310-2, PINR, CBCA #### [facility] ([id number]) [address] [place] [address] 49205 #### HA1C #### [facility] ([id number]) [address] [facility], [address] [place] [address]LBE (Bld) [#/Vol]5.7 10*3/uLNormal4.0-11.0ProAudie L. Murphy Memorial Va HospitalComment on above:Performed By: #### YELENA, 92162-8, 65074-9, PINR, CBCA #### [facility] ([id number]) [address] [place] [address] 79594 #### HA1C #### [facility] ([id number]) [address] [facility], [address] [place], [place] [address]VIMINGIPFZRET METABOLIC PANELon 26-31-5965Gncnspn [Mass/Vol]3.6 g/dLNormal3.2-5.3Pro[facility] HospitalComment on above:Performed By: #### YELENA, 14806-5, 96760-4, PINR, CBCA #### [facility] ([id number]) [address] [place] [address] 39711 #### HA1C #### [facility] ([id number]) [address], [address] [place], [place] [address]KXN [Catalytic activity/Vol]67 U/MXiadgf55-596EwbZrbrlgAudie L. Murphy Memorial Va HospitalComment on above:Performed By: #### YELENA, 94290-1, 43843-0, PINR, CBCA #### [facility] ([id number]) [address] [place] [address] 27518 #### HA1C #### [facility] ([id number]) [address], [address] [place] [address]SQX [Catalytic activity/Vol]32 U/LNormal0-40ProAudie L. Murphy Memorial Va HospitalComment on above:Performed By: #### YELENA, 83227-8, 07417-3, PINR, CBCA #### [facility] ([id number]) [address] [place] [address] 71105 #### HA1C #### [facility] ([id number]) [address], [address] [place], [place] [address]Mwpff gap [Moles/Vol]8 mmol/LNormal5-15ProAudie L. Murphy Memorial Va HospitalComment on above:Performed By: #### YELENA, 65286-9, 28354-0, PINR, CBCA #### [facility] ([id number]) [address] [place] [address] 39324 #### HA1C #### [facility] ([id number]) [address], [address] [place], [place] [address]DGF [Catalytic activity/Vol]30 U/LNormal0-41ProAudie L. Murphy Memorial Va HospitalComment on above:Performed By: #### YELENA, 64422-0, 65021-7, PINR, CBCA #### [facility] ([id number]) [address] [place] [address] 86665 #### HA1C #### [facility] ([id number]) [address], [address] [place], [place] [address]Wuqlponcn [Mass/Vol]0.9 mg/dLNormal0.3-1.2[facility] HospitalComment on above:Performed By: #### YELENA, 70966-5, 88848-7, PINR, CBCA #### [facility] ([id number]) [address] [place] [address] 99133 #### HA1C #### [facility] ([id number]) [address], [address] [place], [place] [address]Lejyoky [Mass/Vol]8.4 mg/dLLow8.5-10.5PMcKitrick Hospital Comment on above:Performed By: #### YELENA, 25588-8, 00393-9, PINR, CBCA #### [facility] ([id number]) [address] [place] [address] 04811 #### HA1C #### [facility] ([id number]) [address], [address] [place], [place] [address]Eonasadc [Moles/Vol]108 mmol/VTqagsf63-310LycVndpmz [facility] HospitalComment on above:Performed By: #### YELENA, 29821-7, 44993-3, PINR, CBCA #### [facility] ([id number]) [address] [place] [address] 65188 #### HA1C #### [facility] ([id number]) [address], [address] [place], [place] [address]FC4 [Moles/Vol]25 mmol/RMhuljh45-69SnyAojelzMcKitrick Hospital Comment on above:Performed By: #### YELENA, 08645-6, 94796-4, PINR, CBCA #### [facility] ([id number]) [address] [place] [address] 66014 #### HA1C #### [facility] ([id number]) [address], [address] [place], [place] [address]Ocsbclealr [Mass/Vol]1.30 mg/dLHigh0.70-1.20ProAudie L. Murphy Memorial Va HospitalComment on above:Result Comment: METHOD TRACEABLE TO IDMS STANDARD Performed By: #### YELENA, 67261-9, 29456-0, RADHA HAWKINS #### [facility] ([id number]) [address] [place] [address] 38221 #### HA1C #### [facility] ([id number]) [address] [facility], [address] [place], [place] [address]PHL/1.73 sq M.predicted among non-blacks MDRD (S/P/Bld) [Vol rate/Area]57 mL/min/{1.73_m2}Low>59ProAudie L. Murphy Memorial Va HospitalComment on above: Result Comment: Reported eGFR is based on the CKD-EPI 2020 equation that does not use a race coefficient.Performed By: #### YELENA, 43803-5, 87631-8, RADHA HAWKINS #### [facility] ([id number]) [address] [place] [address] 43229 #### HA1C #### [facility] ([id number]) [address] [facility], [address] [place], [place] [address]Oshtzvv [Mass/Vol]89 mg/wLVbfzkq08-52PkhBhmllaTogus VA Medical Center Comment on above:Performed By: #### YELENA, 19434-4, 35790-0, RADHA HAWKINS #### [facility] ([id number]) [address] [place] [address] 17546 #### HA1C #### [facility] ([id number]) [address] [facility], [address] [place], [place] [address]Smcddyafk [Moles/Vol]3.9 mmol/LNormal3.5-5.0ProAudie L. Murphy Memorial Va HospitalComment on above:Performed By: #### YELENA, 06991-7, 12639-2, RADHA HAWKINS #### [facility] ([id number]) [address] [place] [address] 87379 #### HA1C #### [facility] ([id number]) [address] [place] [address], [address] [place], [place] [address]Vxsvzfm [Mass/Vol]6.1 g/dLNormal6.0-8.0ProAudie L. Murphy Memorial Va HospitalComment on above:Performed By: #### YELENA 95621-7, 58379-3, PINR, CBCA #### [facility] ([id number]) [address] [place] [address] 72212 #### HA1C #### [facility] ([id number]) [address] [facility], [address] [place], [place] [address]Hskytf [Moles/Vol]141 mmol/DAklzmq634-001TihYmgvtq [facility] HospitalComment on above:Performed By: #### YELENA 78884-6, 99362-7, PINR, CBCA #### [facility] ([id number]) [address] [place] [address] 39191 #### HA1C #### [facility] ([id number]) [address] [place] [address], [address] [place], [place] [address]Ihtj nitrogen [Mass/Vol]20 mg/dLNormal5-27ProAudie L. Murphy Memorial Va HospitalComment on above:Performed By: #### YELENA 78174-3, 83268-7, PINR, CBCA #### [facility] ([id number]) [address] [place] [address] 21065 #### HA1C #### [facility] ([id number]) [address] [place] [address], [address] [place], [place] [address]OYLOQNRLVbf 75-76-6819Sbgttyuen [Mass/Vol]1.8 mg/dLNormal1.8-2.6 [facility] HospitalComment on above:Performed By: #### YELENA 93965-7, 82057-0, PINR, CBCA #### [facility] ([id number]) [address] [place] [address] 92837 #### HA1C #### [facility] ([id number]) [address], [address] [place], [place] [address]IUI AND AUTO DIFFon 19-84-2070VTYJRPRC BASOPHIL0.0 X10E9/LNormal 0.0-0.2[facility] HospitalComment on above:Performed By: #### YELENA, 72802- 7, 59582-2, PINR, CBCA #### [facility] ([id number]) [address] [place] [address] 35674 #### HA1C #### [facility] ([id number]) [address] [facility], [address] [place], [place] [address]BBOMUEKV NEUTROPHIL3.7 X10E9/LNormal1.5-6.6ProUniversity Hospitals Health Systemca [facility] HospitalComment on above:Performed By: #### YELENA, 62187-8, 07270-5, PINR, CBCA #### [facility] ([id number]) [address] [place] [address] 98066 #### HA1C #### [facility] ([id number]) [address] [facility], [address] [place], [place] [address]Qedznqyvx/100 WBC (Bld)0.5 %NormalProAudie L. [facility] Comment on above:Performed By: #### YELENA, 38340-9, 66436-2, PINR, CBCA #### [facility] ([id number]) [address] [place] [address] 57182 #### HA1C #### [facility] ([id number]) [address] [facility], [address] [place], [place] [address]Mzhchhbhfhz (Bld) [#/Vol]0.1 10*3/uLNormal0.0-0.4ProAudie L. Murphy Memorial Va HospitalComment on above:Performed By: #### YELENA, 48518-4, 45294-4, PINR, CBCA #### [facility] ([id number]) [address] [place] [address] 80415 #### HA1C #### [facility] ([id number]) [address] [place] [address], [address] [place], [place] [address]Cyvrjlsvoyj/100 WBC (Bld)1.5 %NormalProAudie L. [facility] Comment on above:Performed By: #### YELENA, 92951-5, 91975-3, PINR, CBCA #### [facility] ([id number]) [address] [place] [address] 51394 #### HA1C #### [facility] ([id number]) [address] [place] [address], [address] [place], [place] [address]Nzblcrbdabz distribution width (RBC) [Ratio]14.7 %Normal 11.5-15.0ProAudie L. Murphy Memorial Va HospitalComment on above:Performed By: #### YELENA, 70248-7, 47919-9, PINR, CBCA #### [facility] ([id number]) [address] [place] [address] 66421 #### HA1C #### [facility] ([id number]) [address] [place] [address], [address] [place], [place] [address]Cgqxockugh (Bld) [Volume fraction]41.1 %Ilnsej53-94CbkCpneloAudie L. Murphy Memorial Va HospitalComment on above:Performed By: #### YELENA, 09184-0, 41568-8, PINR, CBCA #### [facility] ([id number]) [address] [place] [address] 10422 #### HA1C #### [facility] ([id number]) [address] [place] [address], [address] [place], [place] [address]Fhranneggu (Bld) [Mass/Vol]13.6 g/eOFunbdr40.0-17.0Togus [facility] Medical CenterComment on above:Performed By: #### YELENA, 64018-4, 45241-0, PINR, CBCA #### [facility] ([id number]) [address] [place] [address] 58431 #### HA1C #### [facility] ([id number]) [address], [address] [place], [place] [address]Goyiassuvbh (Bld) [#/Vol]1.6 10*3/uLNormal1.0-3.5PVista Surgical Hospitalica [facility] HospitalComment on above:Performed By: #### YELENA, 49480-9, 49429-0, PINR, CBCA #### [facility] ([id number]) [address] [place] [address] 79495 #### HA1C #### [facility] ([id number]) [address] [facility], [address] [place], [place] [address]Fnxhdkmldkr/100 WBC (Bld)27.9 %NormalProAudie L. [facility] Comment on above:Performed By: #### YELENA, 46181-0, 03585-4, PINR, CBCA #### [facility] ([id number]) [address] [place] [address] 79581 #### HA1C #### [facility] ([id number]) [address], [address] [place], [place] [address]LYW (RBC) [Entitic mass]29.4 fgHqwlto59-68SibCryzufAudie L. Murphy Memorial Va HospitalComment on above:Performed By: #### YELENA, 75570-0, 83550-2, PINR, CBCA #### [facility] ([id number]) [address] [place] [address] [place] [address] #### HA1C #### [facility] ([id number]) [address] [facility], [address] [place], [place] [address]MXIE (RBC) [Mass/Vol]33.2 g/yHKdjfhh74-22VmaTqaqsnAudie L. Murphy Memorial Va HospitalComment on above:Performed By: #### YELENA, 19609-1, 12541-5, PINR, CBCA #### [facility] ([id number]) [address] [place] [address] 61809 #### HA1C #### [facility] ([id number]) [address] [facility], [address] [place], [place] [address]SIJ (RBC) [Entitic vol]89 wFXnmwsc52-787PwwDirazg [facility] HospitalComment on above:Performed By: #### YELENA, 34729-8, 07160-7, PINR, CBCA #### [facility] ([id number]) [address] [place] [address] 79087 #### HA1C #### [facility] ([id number]) [address] [facility], [address] [place], [place] [address]Xldoiwbul (Bld) [#/Vol]0.3 10*3/uLNormal0-0.9T[facility] Medical CenterComment on above:Performed By: #### YELENA, 03321-3, 01002-8, PINR, CBCA #### [facility] ([id number]) [address] [place] [address] 87210 #### HA1C #### [facility] ([id number]) [address] [facility], [address] [place], [place] [address]Mvzaetate/100 WBC (Bld)6.1 %NormalProAudie L. [facility] Comment on above:Performed By: #### YELENA, 82156-3, 29495-4, PINR, CBCA #### [facility] ([id number]) [address] [place] [address] 89801 #### HA1C #### [facility] ([id number]) [address], [address] [place], [place] [address]Vobpjxanjgx/100 WBC (Bld)64.0 %NormalTogus VA Medical Center Comment on above:Performed By: #### YELENA, 89229-1, 37118-9, PINR, CBCA #### [facility] ([id number]) [address] [place] [address] 07074 #### HA1C #### [facility] ([id number]) [address] [facility], [address] [place], [place] [address]Xjsndvpy mean volume (Bld) [Entitic vol]7.8 fLNormal7-12 [facility] HospitalComment on above:Performed By: #### YELENA, 88453-0, 75796-8, PINR, CBCA #### [facility] ([id number]) [address] [place] [address] 41379 #### HA1C #### [facility] ([id number]) [address] [facility], [address] [place], [place] [address]Ybxnlhffc (Bld) [#/Vol]184 10*3/pOBkharm475-028ImgBtzdee [facility] HospitalComment on above:Performed By: #### YELENA, 36086-4, 10237-7, PINR, CBCA #### [facility] ([id number]) [address] [place] [address] 76862 #### HA1C #### [facility] ([id number]) [address] [facility], [address] [place], [place] [address]BKP COUNT4.64 X10E12/LNormal4.10-5.70[facility] Comment on above:Performed By: #### YELENA, 65907-4, 36035-4, PINR, CBCA #### [facility] ([id number]) [address] [place] [address] #### HA1C #### [facility] ([id number]) [address], [address] [place], [place] [address]ZRE (Bld) [#/Vol]5.7 10*3/uLNormal4.0-11.0ProAudie L. Murphy Memorial Va HospitalComment on above:Performed By: #### YELENA, 27498-4, 44624-1, PINR, CBCA #### [facility] ([id number]) [address] [place] [address] #### HA1C #### [facility] ([id number]) [address], [address] [place], [place] [address]ZNISYZIMPXBJA METABOLIC PANELon 24-31-0535Zkbxeqi [Mass/Vol]3.8 g/dLNormal3.2-5.3[facility] HospitalComment on above:Performed By: #### YELENA, 28292-5, 51899-2, PINR, CBCA #### [facility] ([id number]) [address] [place] [address] #### HA1C #### [facility] ([id number]) [address], [address] [place], [place] [address]HKR [Catalytic activity/Vol]76 U/NNfxygj90-449CkxGdvitdAudie L. Murphy Memorial Va HospitalComment on above:Performed By: #### YELENA, 00140-4, 01721-2, PINR, CBCA #### [facility] ([id number]) [address] [place] [address] #### HA1C #### [facility] ([id number]) [address], [address] [place], [place] [address]KBV [Catalytic activity/Vol]27 U/LNormal0-40ProAudie L. Murphy Memorial Va HospitalComment on above:Performed By: #### YELENA, 73478-1, 86677-1, PINR, CBCA #### [facility] ([id number]) [address] [place] [address] #### HA1C #### [facility] ([id number]) [address] [place] [address], [address] [place], [place] [address]Aaguj gap [Moles/Vol]6 mmol/LNormal5-15ProAudie L. Murphy Memorial Va HospitalComment on above:Performed By: #### YELENA, 89185-7, 51947-6, PINR, CBCA #### [facility] ([id number]) [address] [place] [address] #### HA1C #### [facility] ([id number]) [address] [place] [address], [address] [place] [address]WOZ [Catalytic activity/Vol]29 U/LNormal0-41ProAudie L. Murphy Memorial Va HospitalComment on above:Performed By: #### YELENA, 54484-0, 27206-8, PINR, CBCA #### [facility] ([id number]) [address] [place] [address] #### HA1C #### [facility] ([id number]) [facility] [address], [address] [place], [place] [address]Gzlrmvqgj [Mass/Vol]0.7 mg/dLNormal0.3-1.2Pro[facility] Municipal HospitalComment on above:Performed By: #### YELENA, 28300-3, 15207-0, PINR, CBCA #### [facility] ([id number]) [address] [place] [address] #### HA1C #### [facility] ([id number]) [address] [place] [address], [address] [place] [address]Bkqvftj [Mass/Vol]8.4 mg/dLLow8.5-10.5PMcKitrick Hospital Comment on above:Performed By: #### YELENA, 23363-6, 25928-4, PINR, CBCA #### [facility] ([id number]) [address] [place] [address] #### HA1C #### [facility] ([id number]) [address] [facility], [address] [place] [address]Kcitxyyo [Moles/Vol]109 mmol/STkceup29-378BheGjevfbAudie L. Murphy Memorial Va HospitalComment on above:Performed By: #### YELENA 37415-9, 61624-4, PINLaura, CBCA #### [facility] ([id number]) [address] [place] [address] #### HA1C #### [facility] ([id number]) [address] [facility], [address] [place], [place] [address]SF4 [Moles/Vol]24 mmol/VHyumcs70-52VdyUjbbjhMcKitrick Hospital Comment on above:Performed By: #### YELENA, 97448-3, 05228-5, PINR, CBCA #### [facility] ([id number]) [address] [place] [address] #### HA1C #### [facility] ([id number]) [address] [facility], [address] [place], [place] [address]Lclffdofnn [Mass/Vol]1.56 mg/dLHigh0.70-1.20ProAudie L. Murphy Memorial Va HospitalComment on above:Result Comment: METHOD TRACEABLE TO IDMS STANDARD Performed By: #### YELENA, 41797-8, 27533-7, PINR, CBCA #### [facility] ([id number]) [address] [place] [address] #### HA1C #### [facility] ([id number]) [address], [address] [place], [place] [address]FKE/1.73 sq M.predicted among non-blacks MDRD (S/P/Bld) [Vol rate/Area]45 mL/min/{1.73_m2}Low>59ProAudie L. Murphy Memorial Va HospitalComment on above: Result Comment: Reported eGFR is based on the CKD-EPI 2020 equation that does not use a race coefficient.Performed By: #### YELENA, 07882-2, 81973-4, PINR, CBCA #### [facility] ([id number]) [address] [place] [address] 38951 #### DEVONTE #### [facility] ([id number]) [address], [address] [place], [place] [address]Skpvypk [Mass/Vol]174 mg/fFRfrv79-20VmaEtcgwjAudie L. Murphy Memorial Va Hospital Comment on above:Performed By: #### YELENA, 01083-7, 09373-9, PINR, CBCA #### [facility] ([id number]) [address] [place] [address] 94966 #### DEVONTE #### [facility] ([id number]) [address], [address] [place], [place] [address]Sjmjkbmrw [Moles/Vol]3.7 mmol/LNormal3.5-5.0ProAudie L. Murphy Memorial Va HospitalComment on above:Performed By: #### YELENA, 37185-6, 72087-0, PINR, CBCA #### [facility] ([id number]) [address] [place] [address] 87[address] #### DEVONTE #### [facility] ([id number]) [address] [place], [place] [address]Srgflqh [Mass/Vol]6.5 g/dLNormal6.0-8.0ProAudie L. Murphy Memorial Va HospitalComment on above:Performed By: #### YELENA, 62159-9, 31818-2, PINR, CBCA #### [facility] ([id number]) [address] [place] [address] 59773 #### HA1C #### [facility] ([id number]) [address], [address] [place], [place] [address]Jhtbsl [Moles/Vol]139 mmol/VPgfutg219-420IigWqvvupTogus VA Medical CenterComment on above:Performed By: #### YELENA, 83562-0, 43904-3, PINR, CBCA #### [facility] ([id number]) [address] [place] [address] 08120 #### HA1C #### [facility] ([id number]) [address], [address] [place], [place] [address]Asto nitrogen [Mass/Vol]20 mg/dLNormal5-27ProAudie L. Murphy Memorial Va HospitalComment on above:Performed By: #### YELENA, 77309-8, 82662-4, PINR, CBCA #### [facility] ([id number]) [address] [place] [address] 62454 #### HA1C #### [facility] ([id number]) [address], [address] [place], [place] [address]OM BRAIN WO CONT STROKE ALERTon 99-09-3169LS BRAIN WO CONT STROKE ALERTCT BRAIN WO [...] by Joey Tejada MD on 10/06/2024 12:47 PMNormalProAudie L. Murphy Memorial Va HospitalGlucose Glucometer (BldC) [Mass/Vol]on 20-28-0494Bgenvzo [Mass/Vol]73 mg/yLUwrnjt95-11AxyOiphjxTogus VA Medical CenterGlucose [Mass/Vol]192 mg/nDVzjz27-62 ProMedicBeverly HospitalLIPASEon 62-61-5507Fyjnlh [Catalytic activity/Vol]29 U/GOqtsdm76-98BrhFieeriAudie L. Murphy Memorial Va HospitalComment on above:Performed By: #### YELENA, 57857-7, 80784-8, PINR, CBCA #### [facility] ([id number]) [address] [place] [address] 88244 #### HA1C #### [facility] ([id number]) [address], [address] [place], [place] [address]Bonbuevfsyu peptide B [Mass/Vol]on 89-46-0822Bidrarnqids peptide B (Bld) [Mass/Vol]26 pg/mLNormal<100.0ProAudie L. Murphy Memorial Va HospitalComment on above:Performed By: #### YELENA, 02333-4, 96231-0, PINR, CBCA #### [facility] ([id number]) [address] [place] [address] 46618 #### HA1C #### [facility] ([id number]) [address], [address] [place], [place] [address]DUZS/FLU A+B/RSV by NAAT/Molecularon 08-21-3295KPVE/FLU A+B/RSV by NAAT/MolecularFLU A PCR Negative (qualifier [...] operators who are performing tests using either [employer] or [employer] systems and is limited to laboratories that [...] specimen repeat. Fact Sheet for Healthcare Providers: https://www.fda.gov/media/761539/download Fact Sheet for Patients: https://www.fda.gov/media/302632/downloadNormalProAudie L. Murphy Memorial Va HospitalComment on above:Performed By: #### YELENA, 42082-8, 23314-1, PINR, CBCA #### [facility] ([id number]) [address] [place] [address], [place] [address] #### HA1C #### [facility] ([id number]) [address] [place] [address], [address] [place], [place] [address]VJHYDWI PROFILEon 08-55-7769Marr T4 [Mass/Vol]0.77 ng/dLNormal 0.61-1.60ProAudie L. Murphy Memorial Va HospitalComment on above:Performed By: #### YELENA, 37598-5, 93094-6, PINR, CBCA #### [facility] ([id number]) [address] [place] [address] 94799 #### HA1C #### [facility] ([id number]) [address], [address] [place], [place] [address]AJP6.84 uIU/mLHigh0.49-4.67ProAudie L. Murphy Memorial Va HospitalComment on above:Performed By: #### YELENA, 71815-7, 19005-5, PINR, CBCA #### [facility] ([id number]) [address] [place] [address] 40148 #### HA1C #### [facility] ([id number]) [address], [address] [place] [address]Tmapidvk I.cardiac High sensitivity method [Mass/Vol]on HOUR TROP I, HIGH SENSITIVITY4 ng/LNormal<21ProAudie L. Murphy Memorial Va HospitalComment on above:Performed By: #### YELENA, 54020-0, 26244-9, PINR, CBCA #### [facility] ([id number]) [address] [place] [address] 66055 #### HA1C #### [facility] ([id number]) [address] [place] [address]KJZUVLQZ I, HIGH SENSITIVITY4 ng/LNormal<21ProAudie L. Murphy Memorial Va HospitalComment on above:Performed By: #### YELENA, 05153-4, 18397-5, PINR, CBCA #### [facility] ([id number]) [address] [place] [address] 32465 #### HA1C #### [facility] ([id number]) [address] [place], [place] [address]OYFWDRH B12on 10-15-7037Hmzvtpasp (Vitamin B12) [Mass/Vol]180 pg/dXQbkfyr081-549VvmWixlvz [facility] HospitalComment on above:Performed By: #### YELENA, 44309-5, 08157-1, PINLaura, CBCA #### [facility] ([id number]) [address] [place] [address] 09711 #### HA1C #### [facility] ([id number]) [address] [facility], [address] [place], [place] [address]eJVB Coag (PPP) [Time]on 22-75-6685cMPZ Coag (Bld) [Time]34 s Ddzgkt98-75BgxNimrds [facility] HospitalComment on above:Result Comment: NEW REFERENCE RANGEPerformed By: #### YELENA, 30692-8, 06120-6, PINLaura, CBCA #### [facility] ([id number]) [address] [place] [address] 56886 #### HA1C #### [facility] ([id number]) [address] [facility], [address] [place], [place] [address]SMXAN METABOLIC PANELon 38-63-8110Eotltdh [Mass/Vol]8.4 mg/dLLow 8.6-10.3Quest DiagnosticsComment on above:Order Comment: FASTING:YES FASTING: YESPerformed By: #### [id number] #### [facility] [address] [place] [address] Towel Sorter: Casi BarnesiChloride [Moles/Vol]109 mmol/XItegee95-835 Quest DiagnosticsComment on above:Order Comment: FASTING:YES FASTING: YESPerformed By: #### [id number] #### [facility] [address] [place] [address] Towel Sorter: Casi BarnesiCO2 [Moles/Vol]30 mmol/HOjgiyi97-26Tpjcd DiagnosticsComment on above:Order Comment: FASTING:YES FASTING: YESPerformed By: #### 07924 #### [facility] [address] [place], [place] [address] Towel Sorter: Casi BarnesiCreatinine [Mass/Vol]1.56 mg/dLHigh0.70-1.28 Quest DiagnosticsComment on above:Order Comment: FASTING:YES FASTING: YESPerformed By: #### [id number] #### [facility] [address] [place], [place] [id number] Towel Sorter: Casi BarnesiGFR/1.73 sq M.predicted among non-blacks MDRD (S/P/Bld) [Vol rate/Area]45 mL/min/{1.73_m2}Low> OR = 60Quest DiagnosticsComment on above:Order Comment: FASTING:YES FASTING: YESPerformed By: #### [id number] #### [facility] [address] [place], [place] [address] Towel Sorter: Casi BarnesiGlucose [Mass/Vol]83 mg/rHGvozbl99-56Vnvap DiagnosticsComment on above:Order Comment: FASTING:YES FASTING: YESResult Comment: Fasting reference intervalPerformed By: #### [id number] #### [facility] [address] [place], [place] [address] Towel Sorter: Casi Sanchez FlatiPotassium [Moles/Vol]4.0 mmol/LNormal3.5-5.3 Quest DiagnosticsComment on above:Order Comment: FASTING:YES FASTING: YESPerformed By: #### [id number] #### [facility] [address] [place], [place] [id number] Towel Sorter: Casi Sanchez FlatiSodium [Moles/Vol]144 mmol/HQbkqwn056-263Zqqvb DiagnosticsComment on above:Order Comment: FASTING:YES FASTING: YESPerformed By: #### [id number] #### [facility] [address] [place], [place] [address] Towel Sorter: Casi BarnesiUrea nitrogen [Mass/Vol]19 mg/dLNormal7-25 Quest DiagnosticsComment on above:Order Comment: FASTING:YES FASTING: YESPerformed By: #### [id number] #### [facility] [address] [place] [address] Towel Sorter: Casi BarnesiUrea nitrogen/Creatinine [Mass ratio]12 mg/mg Normal03-04Quest DiagnosticsComment on above:Order Comment: FASTING:YES FASTING: YESPerformed By: #### 52602 #### [facility] [address] [place] [address] Towel Sorter: Casi BarnesiCBC AND AUTO DIFFon 68-97-9303GKOYTLNE BASOPHIL0.0 X10E9/LNormal0.0-0.2ProMedica [facility] HospitalComment on above: Performed By: #### YELENA, 14777-5, 25052-3, PINR, CBCA #### [facility] ([id number]) [address] [place] [address] 98511 #### HA1C #### [facility] ([id number]) [address] [place] [address], [address] [place], [place] [address]MKKCYSQD NEUTROPHIL4.5 X10E9/LNormal1.5-6.6ProAudie L. Murphy Memorial Va HospitalComment on above:Performed By: #### YELENA, 99573-2, 69696-8, PINR, CBCA #### [facility] ([id number]) [address] [place] [address] 49782 #### HA1C #### [facility] ([id number]) [address] [place] [address], [address] [place], [place] [address]Zpwglhzzs/100 WBC (Bld)0.6 %NormalTogus VA Medical Center Comment on above:Performed By: #### YELENA, 47221-6, 46592-7, PINR, CBCA #### [facility] ([id number]) [address] [place] [address] 74996 #### HA1C #### [facility] ([id number]) [address] [place] [address], [address] [place], [place] [address]Xzqwvskguzn (Bld) [#/Vol]0.2 10*3/uLNormal0.0-0.4ProAudie L. Murphy Memorial Va HospitalComment on above:Performed By: #### YELENA, 00143-5, 61112-5, PINR, CBCA #### [facility] ([id number]) [address] [place] [address] 77[address] #### HA1C #### [facility] ([id number]) [address] [place] [address], [address] [place], [place] [address]Hbjldgpuepn/100 WBC (Bld)2.6 %NormalProAudie L. [facility] Va Hospital Comment on above:Performed By: #### YELENA 92036-6, 42599-0, PINR, CBCA #### [facility] ([id number]) [address] [place] [address] 32698 #### HA1C #### [facility] ([id number]) [address] [place] [address], [address] [place], [place] [address]Xodzrropoul distribution width (RBC) [Ratio]14.5 %Normal 11.5-15.0ProAudie L. Murphy Memorial Va HospitalComment on above:Performed By: #### YELENA, 59251-6, 22239-4, PINR, CBCA #### [facility] ([id number]) [address] [place] [address] 77920 #### HA1C #### [facility] ([id number]) [address] [place] [address], [address] [place], [place] [address]Zvgzmakzjc (Bld) [Volume fraction]43.2 %Wjvinv63-27NdpHcbpzcAudie L. Murphy Memorial Va HospitalComment on above:Performed By: #### YELENA, 03200-4, 08468-7, PINR, CBCA #### [facility] ([id number]) [address] [place] [address] 56398 #### HA1C #### [facility] ([id number]) [address], [address] [place], [place] [address]Odgmocfdqk (Bld) [Mass/Vol]14.2 g/pCVcajxn53.0-17.0Togus VA Medical CenterComment on above:Performed By: #### YELENA, 68545-6, 37242-0, PINR, CBCA #### [facility] ([id number]) [address] [place] [address] 93743 #### HA1C #### [facility] ([id number]) [address] [facility], [address] [place], [place] [address]Elqorbhcvjg (Bld) [#/Vol]2.1 10*3/uLNormal1.0-3.5ProMedica [facility] HospitalComment on above:Performed By: #### YELENA, 12856-8, 91093-2, PINR, CBCA #### [facility] ([id number]) [address] [place] [address] 44066 #### HA1C #### [facility] ([id number]) [address] [facility], [address] [place], [place] [address]Edtqzvvovjr/100 WBC (Bld)28.3 %NormalProAudie L. [facility] Va Hospital Comment on above:Performed By: #### YELENA, 22730-2, 86986-7, PINR, CBCA #### [facility] ([id number]) [address] [place] [address] 82512 #### HA1C #### [facility] ([id number]) [address] [facility], [address] [place], [place] [address]OBR (RBC) [Entitic mass]29.1 kgWtgmwl95-51KmbDayeckAudie L. Murphy Memorial Va HospitalComment on above:Performed By: #### YELENA, 94962-2, 28278-9, PINR, CBCA #### [facility] ([id number]) [address] [place] [address] 09437 #### HA1C #### [facility] ([id number]) [address] [facility], [address] [place], [place] [address]TMOC (RBC) [Mass/Vol]32.8 g/yYAjvujg51-76UdcVdgbkmAudie L. Murphy Memorial Va HospitalComment on above:Performed By: #### YELENA, 19238-6, 82009-2, PINR, CBCA #### [facility] ([id number]) [address] [place] [address] 42736 #### HA1C #### [facility] ([id number]) [address] [facility], [address] [place], [place] [address]LIF (RBC) [Entitic vol]89 aJKpkern43-663GywIarccm [facility] HospitalComment on above:Performed By: #### YELENA, 45193-7, 23011-5, PINR, CBCA #### [facility] ([id number]) [address] [place] [address] 06332 #### HA1C #### [facility] ([id number]) [address] [facility], [address] [place], [place] [address]Njibcbxrm (Bld) [#/Vol]0.5 10*3/uLNormal0-0.9Togus VA Medical CenterComment on above:Performed By: #### YELENA, 09729-2, 16586-7, PINR, CBCA #### [facility] ([id number]) [address] [place] [address] 80957 #### HA1C #### [facility] ([id number]) [address] [facility], [address] [place], [place] [address]Upfssshps/100 WBC (Bld)6.7 %NormalTogus VA Medical Center Comment on above:Performed By: #### YELENA, 46298-4, 38480-8, PINR, CBCA #### [facility] ([id number]) [address] [place] [address] 72141 #### HA1C #### [facility] ([id number]) [address] [place], [place] [address]Ipioeqrzekv/100 WBC (Bld)61.8 %NormalTogus VA Medical Center Comment on above:Performed By: #### YELENA, 81710-7, 00118-9, PINR, CBCA #### [facility] ([id number]) [address] [place] [address] 08793 #### HA1C #### [facility] ([id number]) [address] [facility], [address] [place], [place] [address]Dxvfwpos mean volume (Bld) [Entitic vol]8.2 fLNormal7-12 [facility] HospitalComment on above:Performed By: #### YELENA, 23752-8, 58594-7, PINR, CBCA #### [facility] ([id number]) [address] [place] [address] 39759 #### HALory #### [facility] ([id number]) [address] [place], [place] [address]Tynhrmzju (Bld) [#/Vol]150 10*3/yPVhedhh751-178UulEitmbj [facility] HospitalComment on above:Performed By: #### YELENA, 08381-3, 06958-8, PINR, CBCA #### [facility] ([id number]) [address] [place] [address] 14478 #### HA1C #### [facility] ([id number]) [address], [address] [place], [place] [address]MEM COUNT4.88 X10E12/LNormal4.10-5.70[facility] Comment on above:Performed By: #### YELENA, 20962-6, 23600-2, PINR, CBCA #### [facility] ([id number]) [address] [place] [address] 74911 #### HA1C #### [facility] ([id number]) [address], [address] [place], [place] [address]TSU (Bld) [#/Vol]7.3 10*3/uLNormal4.0-11.0ProAudie L. Murphy Memorial Va HospitalComment on above:Performed By: #### YELENA, 86461-4, 08819-8, PINR, CBCA #### [facility] ([id number]) [address] [place] [address] 37843 #### HA1C #### [facility] ([id number]) [address] [facility], [address] [place], [place] [address]NUMTAVLIGBKTD METABOLIC PANELon 52-73-0405Oowesxx [Mass/Vol]3.8 g/dLNormal3.2-5.3Pro[facility] HospitalComment on above:Performed By: #### YELENA, 06932-8, 66841-8, PINR, CBCA #### [facility] ([id number]) [address] [place] [address] 92115 #### HA1C #### [facility] ([id number]) [address], [address] [place], [place] [address]OCP [Catalytic activity/Vol]77 U/REjcdwl03-600XbeVyfvshAudie L. Murphy Memorial Va HospitalComment on above:Performed By: #### YELENA, 24301-9, 66115-4, PINR, CBCA #### [facility] ([id number]) [address] [place] [address] 27771 #### HA1C #### [facility] ([id number]) [address] [facility], [address] [place], [place] [address]UZR [Catalytic activity/Vol]37 U/LNormal0-40ProAudie L. Murphy Memorial Va HospitalComment on above:Performed By: #### YELENA, 92275-2, 94460-8, PINR, CBCA #### [facility] ([id number]) [address] [place] [address] 28880 #### HA1C #### [facility] ([id number]) [address] [place] [address], [address] [place], [place] [address]Fkdld gap [Moles/Vol]6 mmol/LNormal5-15ProAudie L. Murphy Memorial Va HospitalComment on above:Performed By: #### YELENA, 00256-8, 36078-0, PINR, CBCA #### [facility] ([id number]) [address] [place] [address] 61321 #### HA1C #### [facility] ([id number]) [address] [place] [address], [address] [place], [place] [address]DNV [Catalytic activity/Vol]30 U/LNormal0-41ProAudie L. Murphy Memorial Va HospitalComment on above:Performed By: #### YELENA, 79804-4, 61249-5, PINR, CBCA #### [facility] ([id number]) [address] [place] [address] 05224 #### HA1C #### [facility] ([id number]) [address] [place] [address], [address] [place], [place] [address]Aronmiapk [Mass/Vol]1.0 mg/dLNormal0.3-1.2[facility] HospitalComment on above:Performed By: #### YELENA, 33943-0, 57897-0, PINR, CBCA #### [facility] ([id number]) [address] [place] [address] 01477 #### HA1C #### [facility] ([id number]) [facility], [address] [place], [place] [address]Vpwydra [Mass/Vol]8.6 mg/dLNormal8.5-10.5PMcKitrick HospitalComment on above:Performed By: #### YELENA, 98641-8, 40839-7, PINR, CBCA #### [facility] ([id number]) [address] [place] [address] 51241 #### HA1C #### [facility] ([id number]) [address] [facility], [address] [place], [place] [address]Ppzulbhl [Moles/Vol]108 mmol/OBxchtb72-369UsqAxsahsAudie L. Murphy Memorial Va HospitalComment on above:Performed By: #### YELENA, 66798-2, 63102-3, PINR, CBCA #### [facility] ([id number]) [address] [place] [address] 47370 #### HA1C #### [facility] ([id number]) [address] [facility], [address] [place], [place] [address]LR[address] [Moles/Vol]22 mmol/INmnvop91-17KujNxwtqbMcKitrick Hospital Comment on above:Performed By: #### YELENA, 00702-8, 50053-9, PINR, CBCA #### [facility] ([id number]) [address] [place] [address] 03181 #### HA1C #### [facility] ([id number]) [address] [facility], [address] [place], [place] [address]Rugqpwapcu [Mass/Vol]1.82 mg/dLHigh0.70-1.20ProAudie L. Murphy Memorial Va HospitalComment on above:Result Comment: METHOD TRACEABLE TO IDMS STANDARD Performed By: #### YELENA, 04102-0, 29389-5, PINR, CBCA #### [facility] ([id number]) [address] [place] [address] 06415 #### HA1C #### [facility] ([id number]) [address], [address] [place], [place] [address]TMN/1.73 sq M.predicted among non-blacks MDRD (S/P/Bld) [Vol rate/Area]38 mL/min/{1.73_m2}Low>59ProAudie L. Murphy Memorial Va HospitalComment on above: Result Comment: Reported eGFR is based on the CKD-EPI 2020 equation that does not use a race coefficient.Performed By: #### YELENA, 69726-1, 63845-8, PINR, CBCA #### [facility] ([id number]) [address] [place] [address] 51931 #### HA1C #### [facility] ([id number]) [address], [address] [place], [place] [address]Ctndcjl [Mass/Vol]99 mg/wBAftdon62-32YyjKfhgyxTogus VA Medical Center Comment on above:Performed By: #### YELENA, 74884-7, 87424-9, PINR, CBCA #### [facility] ([id number]) [address] [place] [address] #### HA1C #### [facility] ([id number]) [address], [address] [place], [place] [address]Elgktaamu [Moles/Vol]4.3 mmol/LNormal3.5-5.0ProAudie L. Murphy Memorial Va HospitalComment on above:Performed By: #### YELENA, 80774-8, 38506-0, PINR, CBCA #### [facility] ([id number]) [address] [place] [address] #### HA1C #### [facility] ([id number]) [address], [address] [place], [place] [address]Uhuxkuw [Mass/Vol]6.8 g/dLNormal6.0-8.0Togus VA Medical CenterComment on above:Performed By: #### YELENA, 25690-7, 72315-5, PINR, CBCA #### [facility] ([id number]) [address] [place] [address] #### HA1C #### [facility] ([id number]) [address], [address] [place], [place] [address]Oddntp [Moles/Vol]136 mmol/UJvafzt139-627QnhHzlkzz [facility] HospitalComment on above:Performed By: #### YELENA, 18929-9, 80361-7, PINR, CBCA #### [facility] ([id number]) [address] [place] [address] #### HA1C #### [facility] ([id number]) [address], [address] [place], [place] [address]Wnbg nitrogen [Mass/Vol]29 mg/dLHigh5-27ProAudie L. Murphy Memorial Va HospitalComment on above:Performed By: #### YELENA, 32342-1, 40531-0, PINR, CBCA #### [facility] ([id number]) [address] [place] [address] #### HA1C #### [facility] ([id number]) [address], [address] [place], [place] [address]Ogneslp Glucometer (BldC) [Mass/Vol]on 51-81-9860Gnjfaca [Mass/Vol]101 mg/vVKkld02-88PudKtmbwuAudie L. Murphy Memorial Va HospitalMAGNESIUMon 09-14-2024 Magnesium [Mass/Vol]2.0 mg/dLNormal1.8-2.6ProAudie L. Murphy Memorial Va HospitalComment on above:Performed By: #### YELENA, 53006-9, 23740-6, PINR, CBCA #### [facility] ([id number]) [address] [place] [address] #### HA1C #### [facility] ([id number]) [address], [address] [place], [place] [address]ZPHU/FLU A+B/RSV by NAAT/Molecularon 73-77-1044AZSS/FLU A+B/RSV by NAAT/MolecularFLU A PCR Negative (qualifier [...] operators who are performing tests using either [employer] or [employer] systems and is limited to laboratories that [...] specimen repeat. Fact Sheet for Healthcare Providers: https://www.fda.gov/media/669018/download Fact Sheet for Patients: https://www.fda.gov/media/743464/downloadNormalProMedica Avalon Municipal HospitalComment on above:Performed By: #### YELENA, 32925-6, 49999-5, PINR, CBCA #### [facility] ([id number]) [address] [place] [address] #### HA1C #### [facility] ([id number]) [address], [address] [place], [place] [address]Ipmmisxq I.cardiac High sensitivity method [Mass/Vol]on HOUR TROP I, HIGH SENSITIVITY4 ng/LNormal<21ProAudie L. Murphy Memorial Va HospitalComment on above:Performed By: #### YELENA, 99820-4, 42945-5, PINR, CBCA #### [facility] ([id number]) [address] [place] [address] #### HA1C #### [facility] ([id number]) [address], [address] [place], [place] [address]XUHDAHWR I, HIGH SENSITIVITY5 ng/LNormal<21ProAudie L. Murphy Memorial Va HospitalComment on above:Performed By: #### YELENA, 24972-4, 04196-2, PINR, CBCA #### [facility] ([id number]) [address] [place] [address] #### HA1C #### [facility] ([id number]) [address] [facility], [address] [place], [place] [address]PQ LUMBAR SPINE WO CONTRASTon 00-09-0035LR LUMBAR SPINE WO CONTRASTTITLE OF EXAM: MR [...] interpreting radiologist.NormalNot AvailableMR THORACIC SPINE WO CONTRASTon 65-14-7434EM THORACIC SPINE WO CONTRASTTITLE OF EXAM: MR [...] the interpreting radiologist.NormalNot AvailableCBC AND AUTO DIFFon 09-56-0272DUCGBUCJ BASOPHIL 0.0 X10E9/LNormal0.0-0.2[facility] Municipal HospitalComment on above:Performed By: #### BMP, 56537-8, 29906-5, PINLaura, RADHA #### [facility] ([id number]) [address] [place] [address] #### HA1C #### [facility] ([id number]) [address] [place] [address], [address] [place], [place] [address]WHWYFYUR NEUTROPHIL5.7 X10E9/LNormal1.5-6.6ProAudie L. Murphy Memorial Va HospitalComment on above:Performed By: #### YELENA, 82776-5, 61120-2, PINR, CBCA #### [facility] ([id number]) [address] [place] [address] #### HA1C #### [facility] ([id number]) [address] [place] [address], [address] [address]Qyiendzby/100 WBC (Bld)0.4 %[facility] Comment on above:Performed By: #### YELENA, 23080-6, 14566-2, PINR, CBCA #### [facility] ([id number]) [address] [place] [address] 6[address] #### HA1C #### [facility] ([id number]) [address] [place] [address], [address] [place] [address]Bxaaajvnlqn (Bld) [#/Vol]0.2 10*3/uLNormal0.0-0.4T[facility] VA Medical CenterComment on above:Performed By: #### YELENA, 60404-4, 47078-0, PINR, CBCA #### [facility] ([id number]) [address] [place] [address] 69[address] #### HA1C #### [facility] ([id number]) [address] [place] [address], [address] [place], [place] [address]Hmvwbtfjjjd/100 WBC (Bld)2.1 %[facility] Comment on above:Performed By: #### YELENA, 59450-5, 26744-3, PINR, CBCA #### [facility] ([id number]) [address] [place] [address]347 #### HA1C #### [facility] ([id number]) [address], [address] [place], [place] [address]Oaifrayrska distribution width (RBC) [Ratio]14.6 %Normal 11.5-15.0Tog[facility] VA Medical CenterComment on above:Performed By: #### YELENA, 48001-1, 66675-8, PINR, CBCA #### [facility] ([id number]) [address] [place] [address] 20338 #### HA1C #### [facility] ([id number]) [address], [address] [place], [place] [address]Oudykaisce (Bld) [Volume fraction]40.5 %Pskshk53-90HxkQtjqaxAudie L. Murphy Memorial Va HospitalComment on above:Performed By: #### YELENA, 46383-9, 06978-7, PINR, CBCA #### [facility] ([id number]) [address] [place] [address] #### HA1C #### [facility] ([id number]) [address], [address] [place], [place] [address]Qrcnchwjgs (Bld) [Mass/Vol]13.5 g/bUEhsudu36.0-17.0ProAudie L. Murphy Memorial Va HospitalComment on above:Performed By: #### YELENA, 57935-3, 90301-6, PINR, CBCA #### [facility] ([id number]) [address] [place] [address] 27933 #### HA1C #### [facility] ([id number]) [address], [address] [place], [place] [address]Yjwlgooskui (Bld) [#/Vol]1.9 10*3/uLNormal1.0-3.5Pro[facility] Municipal HospitalComment on above:Performed By: #### YELENA, 53082-8, 81205-7, PINR, CBCA #### [facility] ([id number]) [address] [place] [address] 98249 #### HA1C #### [facility] ([id number]) [address] [facility], [address] [place], [place] [address]Ejaivnxcstx/100 WBC (Bld)22.0 %NormalTogus VA Medical Center Comment on above:Performed By: #### YELENA, 99775-2, 15832-2, PINR, CBCA #### [facility] ([id number]) [address] [place] [address] 13979 #### HA1C #### [facility] ([id number]) [address], [address] [place], [place] [address]VXL (RBC) [Entitic mass]29.8 lmRgpinp33-26YisYyzkwtTogus VA Medical CenterComment on above:Performed By: #### YELENA, 82732-3, 35089-7, PINR, CBCA #### [facility] ([id number]) [address] [place] [address] 86712 #### HA1C #### [facility] ([id number]) [address], [address] [place], [place] [address]KQAU (RBC) [Mass/Vol]33.5 g/uBDfxanf19-96WceTcuiylTogus VA Medical CenterComment on above:Performed By: #### YELENA, 44837-0, 17611-8, PINR, CBCA #### [facility] ([id number]) [address] [place] [address] 65[address] #### HA1C #### [facility] ([id number]) [address], [address] [place], [place] [address]MYA (RBC) [Entitic vol]89 mESondmn88-529KcfSwkift Fremont HospitalComment on above:Performed By: #### YELENA, 83661-4, 99243-5, PINR, CBCA #### [facility] ([id number]) [address] [place] [address] 09381 #### HA1C #### [facility] ([id number]) [address], [address] [place], [place] [address]Nzudjiauz (Bld) [#/Vol]0.8 10*3/uLNormal0-0.9ProAudie L. Murphy Memorial Va HospitalComment on above:Performed By: #### YELENA, 59535-6, 70739-5, PINR, CBCA #### [facility] ([id number]) [address] [place] [address] 38816 #### HA1C #### [facility] ([id number]) [address], [address] [place], [place] [address]Ijblwflqn/100 WBC (Bld)9.4 %NormalTogus VA Medical Center Comment on above:Performed By: #### YELENA, 61256-0, 42390-0, PINR, CBCA #### [facility] ([id number]) [address] [place] [address] #### HA1C #### [facility] ([id number]) [address], [address] [place], [place] [address]Kinfjbfkkbg/100 WBC (Bld)66.1 %NormalTogus VA Medical Center Comment on above:Performed By: #### YELENA, 38850-7, 43215-8, PINR, CBCA #### [facility] ([id number]) [address] [place] [address] 82194 #### HA1C #### [facility] ([id number]) [address], [address] [place], [place] [address]Rehevtwj mean volume (Bld) [Entitic vol]8.0 fLNormal7-12 ProMWest Hills HospitalComment on above:Performed By: #### YELENA, 82533-2, 36951-2, PINR, CBCA #### [facility] ([id number]) [address] [place] [address] 51981 #### HA1C #### [facility] ([id number]) [address], [address] [place], [place] [address]Fkjccypqj (Bld) [#/Vol]158 10*3/nBXwyjzg669-927WilWerecd [facility]remont HospitalComment on above:Performed By: #### YELENA, 94374-1, 61121-7, PINR, CBCA #### [facility] ([id number]) [address] [place] [address] 65562 #### HA1C #### [facility] ([id number]) [address], [address] [place], [place] [address]MUM COUNT4.55 X10E12/LNormal4.10-5.70[facility] Comment on above:Performed By: #### YELENA, 22278-6, 15983-1, PINR, CBCA #### [facility] ([id number]) [address] [place] [address] 75280 #### HA1C #### [facility] ([id number]) [address], [address] [place], [place] [address]TQV (Bld) [#/Vol]8.7 10*3/uLNormal4.0-11.0T[facility] VA Medical CenterComment on above:Performed By: #### YELENA, 59775-4, 06424-5, PINR, CBCA #### [facility] ([id number]) [address] [place] [address] #### HA1C #### [facility] ([id number]) [address], [address] [place], [place] [address]JMX AND AUTO DIFFon 88-08-9270RXASSUVK BASOPHIL0.0 X10E9/LNormal 0.0-0.2ProMedProvidence Mission HospitalComment on above:Performed By: #### YELENA, 80520- 7, 32828-1, PINR, CBCA #### [facility] ([id number]) [address] [place] [address] 6[address] #### HA1C #### [facility] ([id number]) [address] [facility], [address] [place], [place] [address]FAFADIIB NEUTROPHIL7.5 X10E9/LHigh1.5-6.6ProAudie L. Murphy Memorial Va HospitalComment on above:Performed By: #### YELENA, 75086-7, 00861-6, PINR, CBCA #### [facility] ([id number]) [address] [place] [address] 20317 #### HA1C #### [facility] ([id number]) [address] [facility], [address] [place], [place] [address]Bvhjjynkg/100 WBC (Bld)0.3 %NormalProAudie L. Murphy Memorial Va Hospital Comment on above:Performed By: #### YELENA, 45042-6, 92961-9, PINR, CBCA #### [facility] ([id number]) [address] [place] [address] 52421 #### HA1C #### [facility] ([id number]) [address] [facility], [address] [place], [place] [address]Gcdzqatvzbx (Bld) [#/Vol]0.2 10*3/uLNormal0.0-0.4ProAudie L. Murphy Memorial Va HospitalComment on above:Performed By: #### YELENA, 65211-2, 08682-2, PINR, CBCA #### [facility] ([id number]) [address] [place] [address] 66650 #### HA1C #### [facility] ([id number]) [address], [address] [place], [place] [address]Rsjcrabjgcw/100 WBC (Bld)1.5 %NormalProAudie L. Murphy Memorial Va Hospital Comment on above:Performed By: #### YELENA, 36126-5, 78256-5, PINR, CBCA #### [facility] ([id number]) [address] [place] [address] 97484 #### HA1C #### [facility] ([id number]) [address], [address] [place], [place] [address]Jihunmukvmi distribution width (RBC) [Ratio]14.7 %Normal 11.5-15.0ProAudie L. Murphy Memorial Va HospitalComment on above:Performed By: #### YELENA, 94703-6, 53144-9, PINR, CBCA #### [facility] ([id number]) [address] [place] [address] 09620 #### HA1C #### [facility] ([id number]) [address], [address] [place], [place] [address]Mguytfqgwl (Bld) [Volume fraction]41.8 %Tvmkdo38-23HptAstxccAudie L. Murphy Memorial Va HospitalComment on above:Performed By: #### YELENA, 17059-5, 82714-3, PINR, CBCA #### [facility] ([id number]) [address] [place] [address] 27497 #### HA1C #### [facility] ([id number]) [address], [address] [place], [place] [address]Nkjtsvgvlc (Bld) [Mass/Vol]13.9 g/sCTdhjsq78.0-17.0ProAudie L. Murphy Memorial Va HospitalComment on above:Performed By: #### YELENA, 16902-1, 41130-9, PINR, CBCA #### [facility] ([id number]) [address] [place] [address] 63589 #### HA1C #### [facility] ([id number]) [address], [address] [place], [place] [address]Josuplhqjhl (Bld) [#/Vol]1.5 10*3/uLNormal1.0-3.5ProMedica [facility] Municipal HospitalComment on above:Performed By: #### YELENA, 13523-6, 53093-0, PINR, CBCA #### [facility] ([id number]) [address] [place] [address] 35061 #### HA1C #### [facility] ([id number]) [address], [address] [place], [place] [address]Ejerblktovh/100 WBC (Bld)14.7 %NormalTogus VA Medical Center Comment on above:Performed By: #### YELENA, 19890-7, 08518-5, PINR, CBCA #### [facility] ([id number]) [address] [place] [address] 07076 #### HA1C #### [facility] ([id number]) [address], [address] [place], [place] [address]DIN (RBC) [Entitic mass]29.5 wcFjwstt69-44FljIwpcasAudie L. Murphy Memorial Va HospitalComment on above:Performed By: #### YELENA, 87527-9, 63244-2, PINR, CBCA #### [facility] ([id number]) [address] [place] [address] 63849 #### HA1C #### [facility] ([id number]) [address], [address] [place], [place] [address]WLZG (RBC) [Mass/Vol]33.2 g/tSZaerkj09-83TabBwqmizTogus VA Medical CenterComment on above:Performed By: #### YELENA, 45084-6, 93020-9, PINR, CBCA #### [facility] ([id number]) [address] [place] [address] 23603 #### HA1C #### [facility] ([id number]) [address] [facility] [facility], [address] [place], [place] [address]VAO (RBC) [Entitic vol]89 xJIvhlwf77-510XaeWnvjwu [facility] HospitalComment on above:Performed By: #### YELENA, 81119-7, 75764-9, PINR, CBCA #### [facility] ([id number]) [address] [place] [address] 34171 #### HA1C #### [facility] ([id number]) [address] [facility], [address] [place], [place] [address]Otwdvzvsb (Bld) [#/Vol]0.9 10*3/uLNormal0-0.9T[facility] VA Medical CenterComment on above:Performed By: #### YELENA, 65280-8, 44922-4, PINR, CBCA #### [facility] ([id number]) [address] [place] [address] 94702 #### HA1C #### [facility] ([id number]) [address] [facility] [facility], [address] [place], [place] [address]Aiybegzdy/100 WBC (Bld)9.2 %NormalProAudie L. Murphy Memorial Va Hospital Comment on above:Performed By: #### YELENA, 68649-2, 85324-3, PINR, CBCA #### [facility] ([id number]) [address] [place] [address] 62189 #### HA1C #### [facility] ([id number]) [address] [place], [place] [address]Zdcclazfzul/100 WBC (Bld)74.3 %NormalTogus VA Medical Center Comment on above:Performed By: #### YELENA, 95240-0, 99961-0, PINR, CBCA #### [facility] ([id number]) [address] [place] [address] 74953 #### HA1C #### [facility] ([id number]) [address], [address] [place], [place] [address]Ubuvdqzz mean volume (Bld) [Entitic vol]7.8 fLNormal7-12 Pro[facility] HospitalComment on above:Performed By: #### YELENA, 62037-5, 04150-8, PINR, CBCA #### [facility] ([id number]) [address] [place] [address] 36693 #### HA1C #### [facility] ([id number]) [address], [address] [place], [place] [address]Yaootafrj (Bld) [#/Vol]154 10*3/lGTgqpng800-976HlvSosqpf [facility] HospitalComment on above:Performed By: #### YELENA, 40597-7, 42143-7, PINR, CBCA #### [facility] ([id number]) [address] [place] [address] 71765 #### HA1C #### [facility] ([id number]) [address], [address] [place], [place] [address]EXV COUNT4.70 X10E12/LNormal4.10-5.70[facility] Comment on above:Performed By: #### YELENA, 82609-1, 61960-9, PINR, CBCA #### [facility] ([id number]) [address] [place] [address] 63348 #### HA1C #### [facility] ([id number]) [address], [address] [place], [place] [address]SLX (Bld) [#/Vol]10.1 10*3/uLNormal4.0-11.0Pro[facility] Foundation Hospitalment on above:Performed By: #### YELENA, 84842-0, 96971-7, PINR, CBCA #### [facility] ([id number]) [address] [place] [address] 43878 #### HA1C #### [facility] ([id number]) [address] [facility], [address] [place], [place] [address]Kqlmax [Mass/Vol]on 89-00-4229JDJFY ACID9.5 ng/mLNormal>5.8 [facility] Medical CenterComselect specialty hospital on above:Result Comment: NEW REFERENCE RANGE Performed By: #### YELENA, 83605-7, 11109-0, PINR, CBCA #### [facility] ([id number]) [address] [place] [address] #### HA1C #### [facility] ([id number]) [address] [place] [address], [address] [place], [place] [address]Ruxmr metals panel (Bld)on 06-22-4313Nvjdkbz, B<1Normal<[address] [facility] on above:Result Comment: NOTE ADDITIONAL INFORMATION This test was developed and its performance characteristics determined by [facility] in a manner consistent with CLIA requirements. This test has not been cleared or approved by the U.S. Food and Drug Administration.Performed By: #### YELENA, 35284-1, 92735-2, PINR, CBCA #### [facility] ([id number]) [address] [place] [address] 89218 #### HA1C #### [facility] ([id number]) [address], [address] [place], [place] [address]Nlijvkw, B0.6 ng/mLNormal<5.0ProAudie L. Murphy Memorial Va HospitalComment on above:Result Comment: NOTE ADDITIONAL INFORMATION This test was developed and its performance characteristics determined by [facility] in a manner consistent with CLIA requirements. This test has not been cleared or approved by the U.S. Food and Drug Administration.Performed By: ###Namita KIRK, 29061-6, 40427-1, RADHA HAWKINS #### [facility] ([id number]) [address] [place] [address] 37885 #### DEVONTE #### [facility] ([id number]) [address] [facility], [address] [place], [place] [address]Mvuw, B4.5 mcg/dLHigh<3.5ProMedProvidence Mission HospitalComment on above:Result Comment: NOTE ADDITIONAL INFORMATION Testing performed by Triple Quadrupole Inductively Coupled Plasma-Mass Spectrometry (ICP-MS/MS). This test was developed and its performance characteristics determined by [facility] in a manner consistent with CLIA requirements. This test has not been cleared or approved by the U.S. Food and Drug Administration.Performed By: #### YELENA, 64765-1, 65509-6, RADHA HAWKINS #### [facility] ([id number]) [address] [place] [address] 09096 #### HA1C #### [facility] ([id number]) [address], [address] [place], [place] [address]Fxvuwib, B<1Normal<10ProAudie L. Murphy Memorial Va HospitalComment on above: Result Comment: NOTE ADDITIONAL INFORMATION This test was developed and its performance characteristics determined by [facility] in a manner consistent with CLIA requirements. This test has not been cleared or approved by the U.S. Food and Drug Administration.Performed By: #### YELENA, 35443-5, 07988-6, PINR, CBCA #### [facility] ([id number]) [address] [place] [address] 68134 #### HA1C #### [facility] ([id number]) [address] [place] [address], [address] [place], [place] [address]Xbnsee/CapillaryVenousNormalProAudie L. Murphy Memorial Va HospitalComment on above:Performed By: #### YELENA, 91320-2, 13474-3, PINR, CBCA #### [facility] ([id number]) [address] [place] [address] 28024 #### HA1C #### [facility] ([id number]) [address] [place] [address], [address] [place], [place] [address]Uzifu 1995 panelon 52-38-7084Dxvlxxklsbt [Mass/Vol]112 mg/dLLow 150-200ProAudie L. Murphy Memorial Va HospitalComment on above:Performed By: #### YELENA, 28058- 7, 50707-9, PINR, CBCA #### [facility] ([id number]) [address] [place] [address] 09665 #### HA1C #### [facility] ([id number]) [address] [place] [address], [address] [place], [place] [address]Lsuebgeicvi in HDL [Mass/Vol]46 mg/dLNormal>39ProAudie L. Murphy Memorial Va HospitalComment on above:Result Comment: HDL <40 mg/dL - High Risk HDL > or = 40mg/dL- Desirable HDL >60 mg/dL - Negative Risk Performed By: #### YELENA, 50130-4, 34456-7, PINR, CBCA #### [facility] ([id number]) [address] [place] [address] 95680 #### HA1C #### [facility] ([id number]) [address], [address] [place], [place] [address]Eormiuscvck in LDL [Mass/Vol]51 mg/dLNormal<130ProAudie L. Murphy Memorial Va HospitalComment on above:Result Comment: LDL <100 mg/dL - Desirable LDL >160 mg/dL - High Risk Performed By: #### YELENA, 54257-5, 61041-4, PINR, CBCA #### [facility] ([id number]) [address] [place] [address] 90922 #### SALOME1C #### [facility] ([id number]) [address], [address] [place], [place] [address]Hcbwjfmufse in VLDL [Mass/Vol]15 mg/dLNormal0-30ProAudie L. Murphy Memorial Va HospitalComment on above:Performed By: ###Namita KIRK, 55158-0, 09597-7, PINR, CBCA #### [facility] ([id number]) [address] [place] [address] 54524 #### SALOME1C #### [facility] ([id number]) [address], [address] [place], [place] [address]CSZTASNLFCL:HDL2.8Qjshxg2.0-5.0ProAudie L. Murphy Memorial Va HospitalComment on above:Performed By: #### YELENA, 33572-4, 56658-2, PINR, CBCA #### [facility] ([id number]) [address] [place] [address] #### HA1C #### [facility] ([id number]) [address], [address] [place], [place] [address]Xjjclbvnncgt [Mass/Vol]74 mg/xLSuovpo99-473AabXaxiiq [facility] HospitalComment on above:Performed By: #### YELENA, 25821-9, 11695-0, PINR, CBCA #### [facility] ([id number]) [address] [place] [address] 39448 #### HA1C #### [facility] ([id number]) [address], [address] [place], [place] [address]OG BRAIN WO CONTon 53-95-5583MC BRAIN WO CONTMR BRAIN WO CONT HISTORY: [...] by Saul Hurst MD on 08/11/2024 10:04 AMNormalProBaylor Scott & White Medical Center – PflugervilleERUM PROTEIN ELECTROPHORESISon 36-76-5154Tbabssq [Mass/Vol]3.7 g/dL Normal3.4-5.3PMcKitrick HospitalComment on above:Performed By: #### YELENA, 68723-1, 20672-4, PINR, CBCA #### [facility] ([id number]) [address] [place] [address] #### HA1C #### [facility] ([id number]) [address] [facility] [facility], [address] [place], [place] [address]KQIEK 1 GLOBULIN0.3 g/dLNormal0.1-0.4[facility] Comment on above:Performed By: #### YELENA, 43242-2, 25358-3, PINR, CBCA #### [facility] ([id number]) [address] [place] [address] #### HA1C #### [facility] ([id number]) [address], [address] [place], [place] [address]UTXZU 2 GLOBULIN0.8 g/dLNormal0.4-1.1PMcKitrick Hospital Comment on above:Performed By: #### YELENA, 47191-4, 61188-7, PINR, CBCA #### [facility] ([id number]) [address] [place] [address] #### HA1C #### [facility] ([id number]) [address], [address] [place], [place] [address]MIWO GLOBULIN0.9 g/dLNormal0.5-1.2PMcKitrick Hospital Comment on above:Performed By: #### YELENA, 80787-6, 31425-1, PINR, CBCA #### [facility] ([id number]) [address] [place] [address] #### HA1C #### [facility] ([id number]) [address] [place] [address], [address] [place], [place] [address]WEVWB GLOBULIN0.8 g/dLNormal0.5-1.6[facility] Comment on above:Performed By: #### YELENA, 57264-6, 47575-1, PINR, CBCA #### [facility] ([id number]) [address] [place] [address] #### HA1C #### [facility] ([id number]) [address] [place] [address], [address] [place], [place] [address]MXGF. ELECTROPHORESIS INTERPUnremarkable protein distribution, no monoclonal bands.NormalProAudie L. Murphy Memorial Va HospitalComment on above:Performed By: #### YELENA, 47935-3, 10010-9, PINR, CBCA #### [facility] ([id number]) [address] [place] [address] #### HA1C #### [facility] ([id number]) [address] [place] [address], [address] [place] [address]Xbrrkeq [Mass/Vol]6.5 g/dLNormal6.0-8.0ProAudie L. Murphy Memorial Va HospitalComment on above:Performed By: #### YELENA, 73945-8, 10847-1, PINR, CBCA #### [facility] ([id number]) [address] [place] [address] #### HA1C #### [facility] ([id number]) [address] [place] [address], [address] [place] [address]Krdgospu I.cardiac High sensitivity method [Mass/Vol]on HOUR TROP I, HIGH SENSITIVITY5 ng/LNormal<21ProAudie L. Murphy Memorial Va HospitalComment on above:Performed By: #### YELENA, 69966-3, 29582-0, PINR, CBCA #### [facility] ([id number]) [address] [place] [address] #### HA1C #### [facility] ([id number]) [address] [facility], [address] [place], [place] [address]VMJMVYOS I, HIGH SENSITIVITY5 ng/LNormal<21ProAudie L. Murphy Memorial Va HospitalComment on above:Performed By: #### YELENA, 85139-1, 99218-3, PINR, CBCA #### [facility] ([id number]) [address] [place] [address] #### HA1C #### [facility] ([id number]) [address] [facility] [facility], [address] [place], [place] [address]WBHIFFM B12on 78-28-7307Itnqunjfr (Vitamin B12) [Mass/Vol]202 pg/uFRkfcmj594-062XphOlvdlwMcKitrick HospitalComment on above:Performed By: #### YELENA, 44345-2, 18695-6, PINR, CBCA #### [facility] ([id number]) [address] [place] [address] #### HALory #### [facility] ([id number]) [address] [facility], [address] [place], [place] [address]JZGYK METABOLIC PANLon 80-49-9621Erxdu gap [Moles/Vol]9 mmol/L Normal5-15ProAudie L. Murphy Memorial Va HospitalComment on above:Performed By: #### YELENA, 55596-8, 83070-3, PINR, CBCA #### [facility] ([id number]) [address] [place] [address] 7[address]14 #### HALory #### [facility] ([id number]) [address] [facility], [address] [place], [place] [address]Drqhrbz [Mass/Vol]8.4 mg/dLLow8.5-10.5[facility] Comment on above:Performed By: #### YELENA, 67953-2, 43185-2, PINR, CBCA #### [facility] ([id number]) [address] [place] [address] 64302 #### HA1C #### [facility] ([id number]) [address], [address] [place], [place] [address]Fkcwcmjc [Moles/Vol]104 mmol/ZVcxcil82-407BjiZtzbffAudie L. Murphy Memorial Va HospitalComment on above:Performed By: #### YELENA, 55118-2, 05833-4, PINLaura, CBCA #### [facility] ([id number]) [address] [place] [address] 01632 #### HA1C #### [facility] ([id number]) [address] [facility], [address] [place], [place] [address]EK8 [Moles/Vol]24 mmol/GDizlwh32-20BtsWdxtayMcKitrick Hospital Comment on above:Performed By: #### YELENA, 90241-6, 14094-3, PINR, CBCA #### [facility] ([id number]) [address] [place] [address] 73092 #### HA1C #### [facility] ([id number]) [address] [facility], [address] [place], [place] [address]Lylbgkoacr [Mass/Vol]1.40 mg/dLHigh0.70-1.20T[facility] VA Medical CenterComment on above:Result Comment: METHOD TRACEABLE TO IDMS STANDARD Performed By: #### YELENA, 82786-5, 47899-2, PINR, CBCA #### [facility] ([id number]) [address] [place] [address] 53642 #### HA1C #### [facility] ([id number]) [address] [facility], [address] [place], [place] [address]VIZ/1.73 sq M.predicted among non-blacks MDRD (S/P/Bld) [Vol rate/Area]52 mL/min/{1.73_m2}Low>59ProAudie L. Murphy Memorial Va HospitalComment on above: Result Comment: Reported eGFR is based on the CKD-EPI 2020 equation that does not use a race coefficient.Performed By: #### YELENA, 26522-4, 28254-8, PINR, CBCA #### [facility] ([id number]) [address] [place] [address] 05297 #### HA1C #### [facility] ([id number]) [address] [place] [address], [address] [place], [place] [address]Rcvznuw [Mass/Vol]103 mg/aEQeca84-32WidAfwidiAudie L. Murphy Memorial Va Hospital Comment on above:Performed By: #### YELENA, 02765-3, 48824-0, PINR, CBCA #### [facility] ([id number]) [address] [place] [address] 52466 #### HA1C #### [facility] ([id number]) [address] [place] [address], [address] [place], [place] [address]Pdorjuplo [Moles/Vol]4.3 mmol/LNormal3.5-5.0ProAudie L. Murphy Memorial Va HospitalComment on above:Performed By: #### YELENA, 99745-3, 48046-2, PINR, CBCA #### [facility] ([id number]) [address] [place] [address] 42345 #### HA1C #### [facility] ([id number]) [address] [place] [address], [address] [place], [place] [address]Brakrb [Moles/Vol]137 mmol/FVsiuss434-128OgsHishwm Fremont HospitalComment on above:Performed By: #### YELENA, 27551-6, 58573-1, PINR, CBCA #### [facility] ([id number]) [address] [place] [address] 71745 #### HA1C #### [facility] ([id number]) [address], [address] [place], [place] [address]Dzld nitrogen [Mass/Vol]19 mg/dLNormal5-27ProAudie L. Murphy Memorial Va HospitalComment on above:Performed By: #### YELENA, 91945-6, 31510-4, PINR, CBCA #### [facility] ([id number]) [address] [place] [address] 93688 #### HA1C #### [facility] ([id number]) [address], [address] [place], [place] [address]VQA AND AUTO DIFFon 42-57-3411MCZXNYVC BASOPHIL0.1 X10E9/LNormal 0.0-0.2Pro[facility] Municipal HospitalComment on above:Performed By: #### YELENA, 65264- 7, 46154-2, PINR, CBCA #### [facility] ([id number]) [address] [place] [address] #### HALory #### [facility] ([id number]) [address] [facility], [address] [place], [place] [address]CPYZSKEB NEUTROPHIL8.2 X10E9/LHigh1.5-6.6ProAudie L. Murphy Memorial Va HospitalComment on above:Performed By: #### YELENA, 14587-4, 60108-8, PINR, CBCA #### [facility] ([id number]) [address] [place] [address] 74287 #### HA1C #### [facility] ([id number]) [address] [place], [place] [address]Qspxootby/100 WBC (Bld)0.5 %NormalProAudie L. Murphy Memorial Va Hospital Comment on above:Performed By: #### YELENA, 11115-7, 80778-5, PINR, CBCA #### [facility] ([id number]) [address] [place] [address] 60357 #### HA1C #### [facility] ([id number]) [address], [address] [place], [place] [address]Krprnyuhtpi (Bld) [#/Vol]0.1 10*3/uLNormal0.0-0.4ProAudie L. Murphy Memorial Va HospitalComment on above:Performed By: #### YELENA, 69958-6, 90583-1, PINR, CBCA #### [facility] ([id number]) [address] [place] [address] 30662 #### HA1C #### [facility] ([id number]) [address] [place], [place] [address]Ygrkcrisgna/100 WBC (Bld)1.3 %NormalProAudie L. [facility] Memorial Va Hospital Comment on above:Performed By: #### YELENA, 64832-2, 34512-0, PINR, CBCA #### [facility] ([id number]) [address] [place] [address] 95706 #### HA1C #### [facility] ([id number]) [address], [address] [place], [place] [address]Vcpkvhsqham distribution width (RBC) [Ratio]14.9 %Normal 11.5-15.0ProAudie L. Murphy Memorial Va HospitalComment on above:Performed By: #### YELENA, 15572-4, 95210-9, PINR, CBCA #### [facility] ([id number]) [address] [place] [address] 07462 #### HA1C #### [facility] ([id number]) [address], [address] [place], [place] [address]Dttyneyapb (Bld) [Volume fraction]41.2 %Tfehtr51-01DntCuoetxAudie L. Murphy Memorial Va HospitalComment on above:Performed By: #### YELENA, 92108-2, 62123-9, PINR, CBCA #### [facility] ([id number]) [address] [place] [address] 76349 #### DEVONTE #### [facility] ([id number]) [address], [address] [place], [place] [address]Vaxnorxzrt (Bld) [Mass/Vol]13.8 g/mPOgrkei04.0-17.0ProAudie L. Murphy Memorial Va HospitalComment on above:Performed By: #### YELENA, 24024-3, 38645-6, PINR, CBCA #### [facility] ([id number]) [address] [place] [address] 28070 #### HALory #### [facility] ([id number]) [address] [facility], [address] [place], [place] [address]Xxuowbbgvzv (Bld) [#/Vol]1.5 10*3/uLNormal1.0-3.5ProMedica [facility] HospitalComment on above:Performed By: #### YELENA, 03085-9, 15689-9, PINR, CBCA #### [facility] ([id number]) [address] [place] [address] 88214 #### HA1C #### [facility] ([id number]) [address] [facility], [address] [place], [place] [address]Ohabrpvzzkc/100 WBC (Bld)14.0 %NormalProAudie L. [facility] Memorial Va Hospital Comment on above:Performed By: #### YELENA, 97321-3, 42465-6, PINR, CBCA #### [facility] ([id number]) [address] [place] [address] 63075 #### HALory #### [facility] ([id number]) [address], [address] [place], [place] [address]JXJ (RBC) [Entitic mass]29.8 fkWzgakz04-94OkgSjukikAudie L. Murphy Memorial Va HospitalComment on above:Performed By: #### YELENA, 73515-2, 58278-3, PINR, CBCA #### [facility] ([id number]) [address] [place] [address] 41437 #### HA1C #### [facility] ([id number]) [address] [facility], [address] [place], [place] [address]KZDB (RBC) [Mass/Vol]33.6 g/hOXpnvtw39-78UhbBayobsAudie L. Murphy Memorial Va HospitalComment on above:Performed By: #### YELENA, 58339-6, 84184-4, PINR, CBCA #### [facility] ([id number]) [address] [place] [address] 22517 #### HA1C #### [facility] ([id number]) [address] [facility], [address] [place], [place] [address]QUN (RBC) [Entitic vol]89 wTOobwwy14-226SqyZofoep Fremont HospitalComment on above:Performed By: #### YELENA, 67319-5, 39033-0, PINR, CBCA #### [facility] ([id number]) [address] [place] [address] 05764 #### HA1C #### [facility] ([id number]) [address], [address] [place], [place] [address]Ytboulowy (Bld) [#/Vol]0.9 10*3/uLNormal0-0.9ProAudie L. Murphy Memorial Va HospitalComment on above:Performed By: #### YELENA, 72740-3, 65762-4, PINR, CBCA #### [facility] ([id number]) [address] [place] [address] 79017 #### HA1C #### [facility] ([id number]) [address], [address] [place], [place] [address]Ftlbsrqqq/100 WBC (Bld)8.0 %[facility] Comment on above:Performed By: #### YELENA, 79007-2, 90969-0, PINR, CBCA #### [facility] ([id number]) [address] [place] [address] 46313 #### HA1C #### [facility] ([id number]) [address] [facility], [address] [place], [place] [address]Ztbzndlcrkj/100 WBC (Bld)76.2 %[facility] Comment on above:Performed By: #### YELENA, 16025-0, 05289-1, PINR, CBCA #### [facility] ([id number]) [address] [place] [address] 42821 #### HA1C #### [facility] ([id number]) [address] [facility], [address] [place], [place] [address]Lgtnaoab mean volume (Bld) [Entitic vol]8.1 fLNormal7-12 [facility] HospitalComment on above:Performed By: #### YELENA, 18507-1, 98621-4, PINR, CBCA #### [facility] ([id number]) [address] [place] [address] 99173 #### HA1C #### [facility] ([id number]) [address] [place], [place] [address]Pdhjdfrpn (Bld) [#/Vol]150 10*3/aSNmakrp549-880ZhkZpdugbTogus VA Medical CenterComment on above:Performed By: #### YELENA, 98643-7, 35127-5, PINR, CBCA #### [facility] ([id number]) [address] [place] [address] #### HA1C #### [facility] ([id number]) [address] [place] [address]KMP COUNT4.64 X10E12/LNormal4.10-5.70[facility] Comment on above:Performed By: #### YELENA, 93197-0, 88750-7, PINR, CBCA #### [facility] ([id number]) [address] [place] [address] 29548 #### HA1C #### [facility] ([id number]) [address] [facility], [address] [place] [address]SCZ (Bld) [#/Vol]10.8 10*3/uLNormal4.0-11.0Togus VA Medical CenterComment on above:Performed By: #### YELENA, 20663-9, 48220-7, PINR, CBCA #### [facility] ([id number]) [address] [place] [address] 31767 #### HA1C #### [facility] ([id number]) [address] [place] [address], [address] [place] [address]JC BRAIN WO CONT STROKE ALERTon 18-39-8441HH BRAIN WO CONT STROKE ALERTCT BRAIN WO [...] by Francis Porras MD on 08/10/2024 11:[address] Anne Hospitalca [facility] Municipal HospitalCT CTA CAROTIDon 77-63-5158CA CTA CAROTIDCT CTA CAROTID Examination: CTA carotids Clinical History: Neuro deficit, acute, stroke suspected Comparison: None CT CTA CAROTID Procedure: Multidetector CT angiogram performed through the cervical portion of the carotid arteries without complication, including source images and maximum intensity projection 3-D images displayed and reviewed on an independent PACS workstation by the radiologist. Automated exposure control was utilized. The [place] Symptomatic Carotid Endarterectomy Trial (NASCET)calculation of ICA [...] by Francis Porras MD on 08/10/2024 11:38 [facility] HospitalCT CTA HEADon 26-01-5509DC CTA HEADCT CTA HEAD STUDY: CT CTA [...] sinuses. IMPRESSION: * Unremarkable CTA of the hoh of Buck. No high grade arterial stenosis, large vessel occlusionor aneurysm, within confines of venous contamination. * MRI is the most sensitive to assess for ischemic changes if clinically warranted. Finalized by Jesse Kraus on 08/10/2024 11:42 [facility] HospitalGlucose Glucometer (BldC) [Mass/Vol]on 99-54-8578Akqhguq [Mass/Vol]87 mg/lTFztbav22-16WdzRfdecnTogus VA Medical CenterHGB A1C (GLYCO-HGB)on 08-10-2024 Glucose [Mass/Vol]105 mg/dLNoUniversity Hospitals Samaritan Medical CenterComment on above: Performed By: #### BMP, 49339-6, 60815-5, RADHA HAWKINS #### [facility] ([id number]) [address] [place] [address], [place] [address] #### HA1C #### [facility] ([id number]) [address] [place] [address], [address] [place], [place] [address]KtP4a (Bld) [Mass fraction]5.3 %Normal4.4-5.6Togus VA Medical CenterComment on above:Result Comment: NOTE ADA Guidelines Result HgbA1c Normal : less than 5.7 % Prediabetes : 5.7 % to 6.4 % Diabetes : > 6.4 % Use with caution in patients with abnormal hemoglobin variants as the half-life of red blood cells and in vivo glycation rates are affected.Performed By: #### YELENA, 40282-1, 58489-1, PINLaura CBCA #### [facility] ([id number]) [address] [place] [address] 30311 #### HA1C #### [facility] ([id number]) [address] [place] [address], [address] [place], [place] [address]ZDKXCZG AND INRon 77-48-5227INN Coag (PPP) [Relative time]1.1 {INR}Normal0.8-1.1PMcKitrick HospitalComment on above:Performed By: #### YELENA, 58514-8, 13536-9, PINR, CBCA #### [facility] ([id number]) [address] [place] [address] 25329 #### HA1C #### [facility] ([id number]) [address] [place] [address], [address] [place], [place] [address]DW Coag (PPP) [Time]12.6 sNormal9.8-13.2PMcKitrick HospitalComment on above:Result Comment: NEW REFERENCE RANGEPerformed By: #### YELENA, 08307-6, 35360-7, PINR, CBCA #### [facility] ([id number]) [address] [place] [address] 16909 #### HA1C #### [facility] ([id number]) [address] [facility], [address] [place], [place] [address]Ffkoxvxg I.cardiac High sensitivity method [Mass/Vol]on HOUR TROP I, HIGH SENSITIVITY4 ng/LNormal<21ProAudie L. Murphy Memorial Va HospitalComment on above:Performed By: #### BMP, 50174-1, 41699-4, PINR, CBCA #### [facility] ([id number]) [address] [place] [address] 96893 #### HA1C #### [facility] ([id number]) [address] [place] [address], [address] [place], [place] [address]JOTSDQIT I, HIGH SENSITIVITY4 ng/LNormal<21ProAudie L. Murphy Memorial Va HospitalComment on above:Performed By: #### YELENA, 42099-0, 65769-2, PINR, CBCA #### [facility] ([id number]) [address] [place] [address] 69846 #### HA1C #### [facility] ([id number]) [address] [place] [address], [address] [place], [place] [address]HI CHEST 1 VIEW STROKEon 01-27-0049IU CHEST 1 VIEW STROKEXR CHEST 1 VIEW [...] Francis Porras MD on 08/10/2024 12:31 PMNormalProMedica Avalon Municipal HospitalaPTT Coag (PPP) [Time]on 72-00-9725pIHG Coag (Bld) [Time]32 aQmlbpg54-92 [facility] HospitalComment on above:Result Comment: NEW REFERENCE RANGE Performed By: #### BMP, 01019-8, 50991-9, PINR, CBCA #### [facility] ([id number]) [address] [facility], [place] [address] #### HA1C #### [facility] ([id number]) [address] [place] [address], [address] [place], [place] [address]KI JACOB PERF SPECT REST STRon 82-08-5637[address] [address] Nuclear Medicine Report Signed Patient: TAJ RING MR#: [id number] : 1945 Acct:[id number] Age/Sex: 78 / M ADM Date: 07/10/24 Loc: [place] Attending Dr: MONO KNOWLES Ordering Physician: MONO KNOWLES Date of Service: 07/10/24 Procedure(s): NM jacob perf SPECT rest str Accession Number(s): [id number] cc: MONO KNOWLES Patient Name: TAJ RING MR#: [id number] : 1945 Exam Date: 07/10/2024 Ordering Doctor: [...] Signed By: 07/11/24 1549 DD/ 154 TD/TT: Personnel Associate:TBHRadiology, Radiologist, MD - 07/11/2024 [place] [address] Nuclear Medicine Report Signed Patient: TAJ RING MR#: [id number] : 1945 Acct:[id number] Age/Sex: 78 / M ADM Date: 07/10/24 Loc: [place] Attending Dr: MONO KNOWLES Ordering Physician: MONO KNOWLES Date of Service: 07/10/24 Procedure(s): NM jacob perf SPECT rest str Accession Number(s): [id number] cc: MONO KNOWLES Patient Name: TAJ RING MR#: [id number] : 1945 Exam Date: 07/10/2024 Ordering Doctor: [...] Signed By: 07/11/24 1549 DD/ 1549 TD/TT: Personnel Associate: [facility]HealthRadiology Study observation (narrative)[facility] JACOB PERF SPECT REST STROrdered By: Radiologist Radiology on 26-96-6912QDGLCoxHealth Work Phone: bLOOD CULTURE 1on 17-52-9244IOEPU CULTURE 1 Blood Culture 1 NG5D NO GROWTH AT 5 DAYS.^NO GROWTH AT 5 DAYS. CoxHealthBLOOD CULTURE 2on 51-57-9747QXPSJ CULTURE 2 Blood Culture 2 NG5D NO GROWTH AT 5 DAYS.^NO GROWTH AT 5 DAYS. CoxHealthNo Panel Informationon 35-81-8880XPKHAOKVKNWAF HealthcareXR Foot Complete Left*on 08-43-6971YU Foot Complete Left*FINDINGS: Mild hallux valgus. Mild 1st MTP, interphalangeal joint space loss. Small plantar calcaneal spur. Posterior calcaneal sclerosis can be consistent with stress fracture if clinically suspect. IMPRESSION: 1. Posterior calcaneal findings can be consistent with stress fracture if clinically suspect. Report reported and signed by Vu Moore on 05/13/2022 1312NormalNortbanner del e webb medical centern [facility] Memorial HospitalC-Reactive Proteinon 30-12-2323MQY IV0.8 mg/dlNormal<5.0 [facility] SpecialistComment on above:Performed By: #### CMP, CRP, FT4, LIPD, FT3, ESR, TSH, CBC #### [facility] [address], [place] [id number] Blood Counton 44-89-4672Wdhymwquwqs distribution width (RBC) [Ratio]13.9 %Mtqbgr62.0-15.0[facility] SpecialistComment on above:Performed By: #### CMP, CRP, FT4, LIPD, FT3, ESR, TSH, CBC #### [facility] [address], [place] [id number] (Bld) [Volume fraction]48.5 %Ruzukr51.5-50.0 [facility] HospitalComment on above:Performed By: #### CMP, CRP, FT4, LIPD, FT3, ESR, TSH, CBC #### [facility] [address], [place] [id number] (Bld) [Mass/Vol]15.1 g/rIKejmcn96.0-17.1NortherSelect Medical Specialty Hospital [facility] North SpecialistComment on above:Performed By: #### CMP, CRP, FT4, LIPD, FT3, ESR, TSH, CBC #### [facility] [address], [place] [id number] (RBC) [Entitic mass]28.6 pvRhnfyi39.0-33.0NoPaulding County Hospital SpecialistComment on above:Performed By: #### CMP, CRP, FT4, LIPD, FT3, ESR, TSH, CBC #### [facility] [address], [place] [id number] (RBC) [Mass/Vol]31.1 g/dLLow32.0-36.0NoPaulding County Hospital SpecialistComment on above:Performed By: #### CMP, CRP, FT4, LIPD, FT3, ESR, TSH, CBC #### [facility] [address], [place] [id number] (RBC) [Entitic vol]92 qIXfrmak52-925Udfdgswa [facility] SpecialistComment on above:Performed By: #### CMP, CRP, FT4, LIPD, FT3, ESR, TSH, CBC #### [facility] [address], [place] [id number] mean volume (Bld) [Entitic vol]9.10 fLNormal 7.50-12.50NoPaulding County Hospital SpecialistComment on above:Performed By: #### CMP, CRP, FT4, LIPD, FT3, ESR, TSH, CBC #### [facility] [address], [place] [id number] (Bld) [#/Vol]151 10*3/pATmzfik265-418Egoesapx [facility] SpecialistComment on above:Performed By: #### CMP, CRP, FT4, LIPD, FT3, ESR, TSH, CBC #### [facility] [address], [place] [id number] (Bld) [#/Vol]5.28 10*6/uLNormal4.20-5.80NoPaulding County Hospital SpecialistComment on above:Performed By: #### CMP, CRP, FT4, LIPD, FT3, ESR, TSH, CBC #### [facility] [address], [place] [id number]-TG00.7 zXRbthjj09.0-50.0NoPaulding County Hospital Specialist Comment on above:Performed By: #### CMP, CRP, FT4, LIPD, FT3, ESR, TSH, CBC #### [facility] [address], [place] [id number] (Bld) [#/Vol]10.2 10*3/uLNormal3.8-11.0[facility] SpecialistComment on above:Performed By: #### CMP, CRP, FT4, LIPD, FT3, ESR, TSH, CBC #### [facility] [address], [place] [id number] Metabolic Panelon 50-21-3009Fnuxgoz [Mass/Vol] 4.1 g/dLNormal3.6-5.1[facility] SpecialistComment on above:Performed By: #### CMP, CRP, FT4, LIPD, FT3, ESR, TSH, CBC #### [facility] [address], [place] [id number]/Globulin [Mass ratio]1.6 {ratio}Normal1.0-2.5[facility] SpecialistComment on above:Performed By: #### CMP, CRP, FT4, LIPD, FT3, ESR, TSH, CBC #### [facility] [address], [place] [id number] [Catalytic activity/Vol]98 U/QOzvjxs32-644AniakkgvUniversity Hospitals Conneaut Medical CenterComment on above:Performed By: #### CMP, CRP, FT4, LIPD, FT3, ESR, TSH, CBC #### [facility] [address], [place] [id number] [Catalytic activity/Vol]36 U/LNormal9-46NoUniversity Hospitals Conneaut Medical CenterComment on above:Result Comment: 08/13/2021 Female reference range changed.Performed By: #### CMP, CRP, FT4, LIPD, FT3, ESR, TSH, CBC #### [facility] [address], [place] [id number] gap [Moles/Vol]16 mmol/AGxqngn19-24Lzwndoiu [facility] SpecialistComselect specialty hospital on above:Result Comment: Effective 09/18/2019 reference range changed.Performed By: #### CMP, CRP, FT4, LIPD, FT3, ESR, TSH, CBC #### [facility] [address], [place] [id number] [Catalytic activity/Vol]19 U/GUvqoag66-93AfgnagbiUniversity Hospitals Conneaut Medical CenterComment on above:Performed By: #### CMP, CRP, FT4, LIPD, FT3, ESR, TSH, CBC #### [facility] [address], [place] [id number] [Mass/Vol]0.65 mg/dLNormal0.30-1.20NoPaulding County Hospital SpecialistComment on above:Performed By: #### CMP, CRP, FT4, LIPD, FT3, ESR, TSH, CBC #### [facility] [address], [place] [id number] RatioNormal6-22NortEast [facility] Regional HospitalEmotional Support Teacher Comment on above:Performed By: #### CMP, CRP, FT4, LIPD, FT3, ESR, TSH, CBC #### [facility] [address], [place] [id number] [Mass/Vol]8.5 mg/dLLow8.6-10.2[facility] SpecialistComment on above:Performed By: #### CMP, CRP, FT4, LIPD, FT3, ESR, TSH, CBC #### [facility] [address], [place] [id number] [Moles/Vol]107 mmol/HCwtrsk29-797Msjssmcr [facility] SpecialistComment on above:Performed By: #### CMP, CRP, FT4, LIPD, FT3, ESR, TSH, CBC #### [facility] [address], [place] [id number] [Moles/Vol]25 mmol/ENedptk49-74Hlvxmxxk [facility] SpecialistComment on above:Performed By: #### CMP, CRP, FT4, LIPD, FT3, ESR, TSH, CBC #### [facility] [address], [place] [id number] [Mass/Vol]1.6 mg/dLHigh0.7-1.4NoPaulding County Hospital SpecialistComment on above:Performed By: #### CMP, CRP, FT4, LIPD, FT3, ESR, TSH, CBC #### [facility] [address], [place] [id number] mL/min/1.94c1Jku>60NortEast [facility] Regional HospitalEmotional Support Teacher Comment on above:Performed By: #### CMP, CRP, FT4, LIPD, FT3, ESR, TSH, CBC #### [facility] [address], [place] [id number] mL/min/1.74v0Gok>60NoPaulding County Hospital Specialist Comment on above:Performed By: #### CMP, CRP, FT4, LIPD, FT3, ESR, TSH, CBC #### [facility] [address], [place] [id number] (S) [Mass/Vol]2.5 g/dLNormal1.9-3.7NoPaulding County Hospital SpecialistComment on above:Performed By: #### CMP, CRP, FT4, LIPD, FT3, ESR, TSH, CBC #### [facility] [address], [place] [id number] [Mass/Vol]88 mg/mDHptyvr97-31Lopvklng [place] [facility] SpecialistComment on above:Result Comment: For FASTING Glucose --- ADA reference ranges: Normal 65-99 mg/dl Prediabetes 100-125 Diabetes >/= 126Performed By: #### CMP, CRP, FT4, LIPD, FT3, ESR, TSH, CBC #### [facility] [address], [place] [id number] [Moles/Vol]5.2 mmol/LNormal3.5-5.5NoPaulding County Hospital SpecialistComment on above:Performed By: #### CMP, CRP, FT4, LIPD, FT3, ESR, TSH, CBC #### [facility] [address], [place] [id number] [Mass/Vol]6.6 g/dLNormal6.1-8.1NortherSelect Medical Specialty Hospital [facility] SpecialistComment on above:Performed By: #### CMP, CRP, FT4, LIPD, FT3, ESR, TSH, CBC #### [facility] [address], [place] [id number] [Moles/Vol]143 mmol/FKxwdzb046-568Wwalxzhj [place] Medical SpecialistComment on above:Performed By: #### CMP, CRP, FT4, LIPD, FT3, ESR, TSH, CBC #### [facility] [address], [place] [id number] nitrogen [Mass/Vol]20 mg/dLNormal7-25NortEast [facility] SpecialistComment on above:Performed By: #### CMP, CRP, FT4, LIPD, FT3, ESR, TSH, CBC #### [facility] [address], [place] [id number] T3on 24-01-3196HR26.63 pg/mLNormal2.00-4.40NortEast [place] [facility] SpecialistComment on above:Performed By: #### CMP, CRP, FT4, LIPD, FT3, ESR, TSH, CBC #### [facility] [address], [place] [id number] T4on 99-29-1379Jbok T4 [Mass/Vol]1.00 ng/dLNormal 0.80-1.80NoPaulding County Hospital SpecialistComment on above:Performed By: #### CMP, CRP, FT4, LIPD, FT3, ESR, TSH, CBC #### [facility] [address], [place] [id number] Panelon 50-07-3952Hmgizrisesf [Mass/Vol]147 mg/dLNormal 125-200NoPaulding County Hospital SpecialistComment on above:Result Comment: Low risk < 200mg/dL Borderline risk 201-239 mg/dl High risk > or equal to 240Performed By: #### CMP, CRP, FT4, LIPD, FT3, ESR, TSH, CBC #### [facility] [address], [place] [id number] in HDL [Mass/Vol]71 mg/dLNormal>40NoPaulding County Hospital SpecialistComment on above:Result Comment: High Cardiovascular Risk HDL <40 mg/dL Low Cardiovascular Risk HDL > or equal to 60 mg/dlPerformed By: #### CMP, CRP, FT4, LIPD, FT3, ESR, TSH, CBC #### [facility] [address], [place] [id number] in LDL [Mass/Vol]58 mg/dLNormalNortbanner del e webb medical centern [facility] SpecialistComment on above:Result Comment: LDL ATP III CLASSIFICATION LDL less than 100 mg/dl Optimal LDL 100-129 mg/dl Near or above optimal LDL 130-159 Borderline high LDL 160-189 High LDL greater than 189 mg/dl Very HighPerformed By: #### CMP, CRP, FT4, LIPD, FT3, ESR, TSH, CBC #### [facility] [address], [place] [id number] in VLDL [Mass/Vol]18 mg/dLNormalNoPaulding County Hospital SpecialistComment on above:Performed By: #### CMP, CRP, FT4, LIPD, FT3, ESR, TSH, CBC #### [facility] [address], [place] [id number].total/Cholesterol in HDL [Mass ratio]2 {ratio} NormalNoUniversity Hospitals Conneaut Medical CenterComment on above:Performed By: #### CMP, CRP, FT4, LIPD, FT3, ESR, TSH, CBC #### [facility] [address], [place] [id number] [Mass/Vol]89 mg/eMGkbykk98-718Wddycfbp [place] Medical SpecialistComment on above:Result Comment: TRIG ATPIII CLASSIFICATIONS TRIG less than 150 mg/dl Normal TRIG 150-199 mg/dl Borderline High TRIG 200-500 mg/dl High TRIG greather than 500 mg/dl Very HighPerformed By: #### CMP, CRP, FT4, LIPD, FT3, ESR, TSH, CBC #### [facility] [address], [place] [id number] SCREEN (MEDICARE)on 78-72-4143ATOV7.731 ng/mLNormal<4.000 [facility] HospitalComment on above:Result Comment: PSA Test Method: ECLIA/Alicia e 601Performed By: #### PSA MC #### [facility] [address], [place] [id number] Sedimentation Rateon 91-56-6103QWI (Bld) [Velocity]57.00 mm/hHigh0.00-20.00NoPaulding County Hospital SpecialistComment on above:Performed By: #### CMP, CRP, FT4, LIPD, FT3, ESR, TSH, CBC #### [facility] [address], [place] [id number] 96-36-7163MNQ5.990 uIU/mLNormal0.400-4.500NortEast [place] [facility] SpecialistComment on above:Performed By: #### CMP, CRP, FT4, LIPD, FT3, ESR, TSH, CBC #### [facility] [address], [place] [id number] Acidon 47-54-9081CWBC2.5 mg/dLHigh4.0-8.0Nortbanner del e web[facility] medical centern [facility] SpecialistComment on above:Result Comment: Reference range change 07/30/2017. Prior reference range F 2.4-5.7mg/dL. M 3.4-7.0 mg/dL.Performed By: #### URIC #### [facility] [address], [place] [id number] pre/post mri xrayon 39-23-1831FB pre/post mri xray [facility] [place] [address] MRI Report Signed Patient: Taj Ring MR#: [id number] : 1945 Acct:[id number] Age/Sex: 75 / M ADM Date: 08/01/21 Loc: [facility] Room: Type: [facility] Attending Dr: Petrona Boyer NP Ordering Provider: Petrona Boyer NP Date of Service: 08/01/21 MR/MR lumbar spine wo con: M51.26 ([id number]) XR/XR pre/post mri xray: M51.26 Copies to: [...] Kirk Santiago M.D.08/01/2021 5:06 PM Dictation Location: [place] [address] Transcribed By: [facility] 08/01/21 1706 Dictated By: Kirk Santiago II, MD 08/01/21 5027 Signed By: 08/01/21 170[facility] Vital Signs Date TimeVital SignValuePerforming CwcoiokibAyusrzsd70-17-7117 11:22-0400Body mokrpq482.6 cmMono Knowles MD Work Phone: [phone])[facility]-8055CoxHealthTfiqlcryom16-99-1871 11:22-0400Body mass index (BMI) [Ratio]31.47 kg/g6RoymmmMono Knowles MD Work Phone: 1(298)[facility] [place], [place] [address]Ygxxixjnvm17-69-3975 11:22-0400Body temperature 97.9 [degF]Mono Knowles MD Work Phone: [phone] [place], [place] [address]Ifvrvrjfrg66-65-2650 11:22-0400Body hevixc68.45 kgMono Knowles MD Work Phone: 1(474)[facility] [place], [place] [address]Fzvlhufsop96-82-2891 11:22-0400Diastolic blood yynzwqhl65 mm[Hg]Mono Knowles MD Work Phone: 1(477)[facility] [place], [place] [address]Igqyjejtzu11-62-4460 11:22-0400Heart rate66 /min Mono Knowles MD Work Phone: [phone])[facility] [place], [place] [address]Nqtsxtqwef53-89-2945 11:22-0718KbI5% (BldA) [Mass fraction]96 %Mono Knowles MD Work Phone: 1(594)[facility]-[address] [place], [place] [address]Jtvymvoarw99-83-7633 11:22-0400Systolic blood smynflwc527 mm[Hg]Mono Knowles MD Work Phone: 1([phone] [place], [place] [address]Nordqkeixt20-88-8096 09:07-0400Body awzoiz373.6 cmKami Thomason CLINICAL APPEALS REVIEWER Work Phone: 1(079)[facility] [place], [place] [address]Twyfjgdfpp91-58-9223 09:07-0400Body mass index (BMI) [Ratio]31.96 kg/m2Kami Thomason CLINICAL APPEALS REVIEWER Work Phone: 1(564)[facility] HospitalNOSaint John's Health SystemSykzzsxupq50-77-5158 09:07-0400Body thriht25.81 kgKami Thomason CLINICAL APPEALS REVIEWER Work Phone: 1(648)[facility]146NOSaint John's Health SystemXinnofzoym59-15-8070 09:07-0400Diastolic blood dpjriofd58 mm[Hg]Kami Thomason CLINICAL APPEALS REVIEWER Work Phone: 1(259)[facility]-[address] [place], [place] [address]Uyxbwashll24-35-9983 09:07-0400Heart rate71 /min Kami Thomason CLINICAL APPEALS REVIEWER Work Phone: NOSaint John's Health SystemVlqkrcngos95-01-2176 09:07-0400Respiratory rate16 /minDannylyndsey Rashaad CLINICAL APPEALS REVIEWER Work Phone: [phone] John's Health SystemEcpwcujqli94-12-2848 09:07-0914FwV2% (BldA) [Mass fraction]96 %Kami Thomason CLINICAL APPEALS REVIEWER Work Phone: NOSaint John's Health SystemHqpmtslomr14-77-5552 09:07-0400Systolic blood eofhewnb272 mm[Hg]Kami Thomason CLINICAL APPEALS REVIEWER Work Phone: [phone] John's Health SystemPwisxdgoew63-94-7775 08:46-0400Body xtamzo501.6 cmMono Knowles MD Work Phone: [phone] John's Health SystemQpuymtgkhb56-25-3710 08:46-0400Body mass index (BMI) [Ratio]31.15 kg/d9OnpyiuMono Knowles MD Work Phone: [phone] John's Health SystemNwrcownxsm31-38-1368 08:46-0400Body vabbmo45.54 kgMono Knowles MD Work Phone: NOSaint John's Health SystemRcbqzuofxj00-88-9015 08:46-0400Diastolic blood evacvssb21 mm[Hg]Mono Knowles MD Work Phone: [phone] John's Health SystemCuxzbykbfw25-53-8042 08:46-0400Heart rate54 /min Mono Knowles MD Work Phone: NOSaint John's Health SystemFecxsuefog59-97-0150 08:46-2851EwQ8% (BldA) [Mass fraction]97 %Mono Knowles MD Work Phone: NOSaint John's Health SystemIshxanhtqb09-49-2196 08:46-0400Systolic blood yodneqhd944 mm[Hg]Mono Knowles MD Work Phone: NOSaint John's Health SystemHddakmuhvg55-67-5828 10:40-0400Body abofqz012.6 cmMono Knowles MD Work Phone: NOSaint John's Health SystemSiiwbwvfac36-08-5136 10:40-0400Body mass index (BMI) [Ratio]31.09 kg/i3MswybdMono Knowles MD Work Phone: NOSaint John's Health SystemEsqegkxese84-02-5003 10:40-0400Body lvtakh60.36 kgMono Knowles MD Work Phone: NOSaint John's Health SystemKwjbhixsck31-38-8185 10:40-0400Diastolic blood mm[Hg]Mono Knowles MD Work Phone: NOSaint John's Health SystemFhlnqhlskh47-16-1634 10:40-0400Heart rate64 /min Mono Knowles MD Work Phone: NOSaint John's Health SystemJeomvdjrva22-61-9497 10:40-0400Respiratory rate16 /minDsunni Knowles MD Work Phone: NOSaint John's Health SystemKametvdqpp13-91-2756 10:40-3364WeS2% (BldA) [Mass fraction]97 %Mono Knowles MD Work Phone: NOSaint John's Health SystemPcmdtmegaj55-32-6016 10:40-0400Systolic blood sdcnbiyl122 mm[Hg]Mono Knowles MD Work Phone: NOSaint John's Health SystemDhndhxvbhq29-45-3297 08:48-0400Body qutlrq139.6 cmDagregorio Knowles MD Work Phone: NOSaint John's Health SystemYmiuiaorde76-10-4732 08:48-0400Body mass index (BMI) [Ratio]31.31 kg/n5AvyvpxMono Knowles MD Work Phone: NOSaint John's Health SystemVnfyawkkxd75-34-1598 08:48-0400Body ecnjgz21 kg Mono Knowles MD Work Phone: NOSaint John's Health SystemDippgjsspw62-79-7360 08:48-0400Diastolic blood negdcwrg37 mm[Hg]Mono Knowles MD Work Phone: NOSaint John's Health SystemKkyklsqfeh13-47-5305 08:48-0400Heart rate63 /min oMno Knowles MD Work Phone: NOSaint John's Health SystemNjgtuizkva05-81-6204 08:48-9411WiV2% (BldA) [Mass fraction]96 %Mono Knowles MD Work Phone: NOSaint John's Health SystemEdjfqbpwkf04-02-3766 08:48-0400Systolic blood jbnvedng145 mm[Hg]Mono Knowles MD Work Phone: [facility]HealthZcwzcxwjfr58-44-7898 09:07-0400Body ipblxy334.6 cmMono Knowles MD Work Phone: CoxHealthUacezmrzjo09-26-3186 09:07-0400Body mass index (BMI) [Ratio]30.99 kg/p9CsbnvxMono Knowles MD Work Phone: [facility]HealthRmpbqmidcj59-76-1349 09:07-0400Body poscnd19.09 kgMono Knowles MD Work Phone: [facility]HealthSdqobdtjuz53-21-8682 09:07-0400Diastolic blood mm[Hg]Mono Knowles MD Work Phone: [facility]HealthMuzlvkkkkx37-55-2634 09:07-0400Heart rate62 /min Mono Knowles MD Work Phone: [facility]HealthWcuqcocmoe22-11-7696 09:07-7730JdN0% (BldA) [Mass fraction]98 %Mono Knowles MD Work Phone: CoxHealthChynesapfi38-93-6438 09:07-0400Systolic blood actfofwu025 mm[Hg]Mono Knowles MD Work Phone: [facility]HealthJuhfinyywm40-93-1412 14:24-0500Body mass index (BMI) [Ratio]30.89 kg/j4Zlcewpgqacq Jossy DO Work Phone: [facility]HealthYvoculrdqr96-93-7520 14:24-0500Body .82 kgChristopher Jossy DO Work Phone: [facility]HealthXajmuzuxdx60-38-3086 14:24-0500Diastolic blood zhcggdyc47 mm[Hg]Christjavid Fenton DO Work Phone: [facility]HealthJhogtvapqe02-88-1312 14:24-0500Heart rate64 /min Christopher Jossy DO Work Phone: noSaint John's Health SystemVuavnllbjg50-42-8956 14:24-4112RwE2% (BldA) [Mass fraction]97 %Christjavid Fenton DO Work Phone: CoxHealthEayhseoavw76-24-9811 14:24-0500Systolic blood esafsvoc657 mm[Hg]Artemjavid Fenton Work Phone: [facility]HealthGeritjmlxr76-61-5366 08:12-0500Body bfrmcu310.6 cmNorma Jin MD Work Phone: [facility]HealthDzmcnbnqtv20-55-3046 08:12-0500Body mass index (BMI) [Ratio]30.18 kg/y9GidjeaNorma Jin MD Work Phone: 1(245)[facility]-1023CoxHealthOqbxikvsma10-74-2729 08:12-0500Body ckmruo55.82 kgNorma Jin MD Work Phone: 1(184)[facility]-7759CoxHealthTiuqorgrgp10-09-7606 08:12-0500Diastolic blood gszmkybl47 mm[Hg]Norma Jin MD Work Phone: 1(239)[facility]-3237CoxHealthUskvwrohre94-72-8243 08:12-0500Heart rate75 /min Norma Jin MD Work Phone: 1(234)[facility]-4564CoxHealthQjgdzycxid78-40-1482 08:12-0500Systolic blood iefuffza759 mm[Hg]Norma Jin MD Work Phone: 1(090)[facility]-3604CoxHealthJxsywketnk24-57-2527 11:11-0500Body .6 cmMono Knowles MD Work Phone: 1(368)[facility]-[address] [place], [place] [address]Dxuwyxktyl33-12-2563 11:11-0500Body mass index (BMI) [Ratio]30.18 kg/g9GvcgoeMono Knowles MD Work Phone: 1(978)[facility]-[address] [place], [place] [address]Oglenmxhzw42-71-1089 11:11-0500Body yqhbds48.82 kgMono Knowles MD Work Phone: 1(885)[facility]-[address] [place], [place] [address]Vxgihqisga57-18-1872 11:11-0500Diastolic blood ltnabhzd61 mm[Hg]Mono Knowles MD Work Phone: 1(803)[facility]-[address] [place], [place] [address]Gmtpmwaisu13-62-8763 11:11-0500Heart rate67 /min Mono Knowles MD Work Phone: 1(211)[facility]-[address] [place], [place] [address]Jbtfxokicx68-78-5121 11:11-9845WpC9% (BldA) [Mass fraction]96 %Mono Knowles MD Work Phone: [facility]HealthVwwsdpietq32-24-6056 11:11-0500Systolic blood sdaxhhwz172 mm[Hg]Mono Knowles MD Work Phone: [facility]HealthBwopqxqekk25-34-0783 08:33-0500Body .6 cmKaren Hemmer PA Work Phone: [facility]HealthJahjpubpdh03-27-4466 08:33-0500Body mass index (BMI) [Ratio]30.34 kg/m4Ffuir Hemmer PA Work Phone: [facility]HealthQpeqgmekpr09-39-3674 08:33-0500Body lqweya75.28 kgKaren Hemmer PA Work Phone: [facility]HealthExmcyxggyq36-80-2928 08:33-0500Diastolic blood ouwtuflj44 mm[Hg]Marylou Hemmer PA Work Phone: [facility]HealthUchtuuvqcm50-21-0617 08:33-0500Heart rate52 /min Marylou Hemmer PA Work Phone: [facility]HealthHnrxyzdnmp80-24-3947 08:33-0785QoA4% (BldA) [Mass fraction]94 %Marylou Hemmer PA Work Phone: [facility]HealthDlqpclpoov52-14-6281 08:33-0500Systolic blood mm[Hg]Marylou Hemmer PA Work Phone: [facility]HealthPbayfablfy03-89-7797 08:59-0500Body .6 cmMono Knowles MD Work Phone: NOSaint John's Health SystemLdedsbgcbz06-17-4534 08:59-0500Body mass index (BMI) [Ratio]29.86 kg/k9XdflhxMono Knowles MD Work Phone: NOSaint John's Health SystemZmuaxhsalr49-50-6422 08:59-0500Body orajoj02.92 kgMono Knowles MD Work Phone: NOSaint [facility]'s Health SystemHboxydjtyp71-79-4704 08:59-0500Diastolic blood woaljiiy86 mm[Hg]Mono Knowles MD Work Phone: NOSaint [facility] SystemUcjxhqormi31-23-0094 08:59-0500Heart rate66 /min Mono Knowles MD Work Phone: NOSaint [facility] SystemTswdwonmxj15-36-0875 08:59-0170BsN8% (BldA) [Mass fraction]96 %Mono Knowles MD Work Phone: NOSaint [facility]'s [facility] SystemDmbjpyxpkt07-39-4057 08:59-0500Systolic blood krgycwra958 mm[Hg]Mono Knowles MD Work Phone: NOSaint [facility] SystemZqldpklhlf94-14-8599 10:12-0400Body yzrfsb996.6 cmMono Knowles MD Work Phone: NOSaint [facility] SystemCqxfcleefi89-53-0561 10:12-0400Body mass index (BMI) [Ratio]30.34 kg/g2FwfozjMono Knowles MD Work Phone: NOSaint [facility] SystemRyluurdvwv41-13-0984 10:12-0400Body ogjvdg96.28 kgMono Knowles MD Work Phone: NOSaint [facility] SystemLbhiqrevru41-97-3733 10:12-0400Diastolic blood dwplkulf75 mm[Hg]Mono Knowles MD Work Phone: NOSaint John's [facility] SystemAibhngyyof54-65-8899 10:12-0400Heart rate62 /min Mono Knowles MD Work Phone: NOSaint [facility]'s [facility] SystemGsvfxdhimh88-45-0846 10:12-9191ToB5% (BldA) [Mass fraction]97 %Mono Knowles MD Work Phone: NOSaint [facility] SystemDxgwjhfans32-22-0879 10:12-0400Systolic blood huoqpomt023 mm[Hg]Mono Knowles MD Work Phone: NOSaint [facility] SystemQmiebyknqm53-49-1204 09:15-0400Body wosklo577.6 cmMono Knowles MD Work Phone: NOSaint [facility] SystemWwbtpuvumt17-02-8885 09:15-0400Body mass index (BMI) [Ratio]29.7 kg/a2UfmxytMono Knowles MD Work Phone: [facility]HealthZqmxbwjzbh40-02-0746 09:15-0400Body .46 kgDagregorio Knowles MD Work Phone: [facility]HealthBavvmqhqod39-08-5331 09:15-0400Diastolic blood ryobbigr89 mm[Hg]Mono Knowles MD Work Phone: [facility]HealthGcmogccqpb17-34-1971 09:15-0400Heart rate63 /min Mono Knowles MD Work Phone: 1(780)048-[address] [place], [place] [address]Zmjzdnnewe41-49-6559 09:15-1594JaG5% (BldA) [Mass fraction]97 %Mono Knowles MD Work Phone: [facility]HealthRyqnxeocnu10-55-1218 09:15-0400Systolic blood ivuyhzzf280 mm[Hg]Mono Knowles MD Work Phone: 1(004)181-[address] [place], [place] [address]Jglhvbebhk80-20-6750 08:42-0400Body calzej165.6 cmSmaynor Ray CLINICAL APPEALS REVIEWER Work Phone: 1(913)704-[address] [place], [place] [address]Mlagcfpwxq16-73-9988 08:42-0400Body mass index (BMI) [Ratio]29.86 kg/h9YqgtxxYvette Ray CLINICAL APPEALS REVIEWER Work Phone: 1(356)315-[address] [place], [place] [address]Mmiqyvkngt18-54-2588 08:42-0400Body slbekb90.92 kgShlashonda Ray CLINICAL APPEALS REVIEWER Work Phone: [facility]HealthGpecfgbupm83-26-1225 08:42-0400Diastolic blood mm[Hg]Yvette Ray CLINICAL APPEALS REVIEWER Work Phone: 1(191)932-[address] [place], [place] [address]Nashbtlalu12-44-8305 08:42-0400Heart rate60 /min Yvette Ray CLINICAL APPEALS REVIEWER Work Phone: [facility]HealthCevkgnhufb99-04-4848 08:42-0193BpU4% (BldA) [Mass fraction]98 %Yvette Ray CLINICAL APPEALS REVIEWER Work Phone: [facility]HealthQhtvqyczuy57-22-9139 08:42-0400Systolic blood ghwixqey743 mm[Hg]Yvette Ray CLINICAL APPEALS REVIEWER Work Phone: NOSaint [facility] SystemPszwkuywmi84-32-2301 09:59-0400Body fnozny131.6 cmDagregorio Knowles MD Work Phone: NOSaint [facility] SystemVisaskpkmv91-51-2611 09:59-0400Body mass index (BMI) [Ratio]30.18 kg/k4JyfkqbMono Knowles MD Work Phone: NOSaint [facility] SystemLqwpcehwcn21-28-5812 09:59-0400Body smidel47.82 kgMono Knowles MD Work Phone: NOSaint [facility] SystemCogjliluzk55-33-5491 09:59-0400Diastolic blood wgxjgcec80 mm[Hg]Mono Knowles MD Work Phone: NOSaint [facility] SystemYxgwjecfvv59-26-1411 09:59-0400Heart rate56 /min Mono Knowles MD Work Phone: NOSaint [facility] SystemOkfqqhfdkg90-07-2084 09:59-3361TlE8% (BldA) [Mass fraction]98 %Mono Knowles MD Work Phone: NOSaint [facility] SystemRawazkrbyl13-53-9361 09:59-0400Systolic blood zxifevcm908 mm[Hg]Mono Knowles MD Work Phone: [facility]HealthQakbmayeyl43-90-0628 08:38-0400Body kiwvxj727.6 cmTleyla Son MD Work Phone: 1(081)301-[address] [place], [place] [address]803-28-2024 08:38-0400Body mass index (BMI) [Ratio]29.86 kg/n3LvkvpmAdrian Son MD Work Phone: 1(907)878-[address] [place], [place] [address]803-28-2024 08:38-0400Body wvxuxb89.92 kgThcherry Son MD Work Phone: 1(769)774-MGT [facility] InvestmentsMag[facility]03-28-2024 08:38-0400Diastolic blood xagfepfu70 mm[Hg]Adrian Son MD Work Phone: 1(502)246-MGT [facility]mentsMag[facility]03-28-2024 08:38-0400Heart rate 63 /minAdrian Son MD Work Phone: 1(399)268-MGT [facility]mentsMag[facility]03-28-2024 08:38-6237KzT3% (BldA) [Mass fraction]95 %Adrian Son MD Work Phone: [facility]03-28-2024 08:38-0400Systolic blood jxectcal164 mm[Hg]Adrian Son MD Work Phone: [facility]02-14-2024 08:49-0500Body eswuqv866.6 cmMono Knowles MD Work Phone: NOSaint [facility] SystemVvebzyshfx96-24-9464 08:49-0500Body mass index (BMI) [Ratio]29.7 kg/j8MovnuoMono Knowles MD Work Phone: NOSaint [facility] SystemKhcisaqlxe68-84-2895 08:49-0500Body .46 kgMono Knowles MD Work Phone: NOSaint [facility] SystemBovjgkpfpb21-06-1520 08:49-0500Diastolic blood maiyetsx19 mm[Hg]Mono Knowles MD Work Phone: NOSaint [facility] SystemAcmslycsqi22-48-8520 08:49-0500Heart rate56 /min Mono Knowles MD Work Phone: NOSaint [facility] SystemLhbnbkozwt82-80-6473 08:49-9553KpR5% (BldA) [Mass fraction]97 %Mono Knowles MD Work Phone: NOSaint [facility] SystemRgxanyytva61-38-2648 08:49-0500Systolic blood ahpghxyg553 mm[Hg]Mono Knowles MD Work Phone: [facility] Encounters Encounter DateEncounter TypeCare ProviderFacilityStart: 07-18-2025 End: 31-64-2625Nrippuoas department patient visitDANIMONICA KNOWLESToledo Hospital HospitalStart: 07-18-2025 End: 87-70-0483Mefxplczr encounterDagregorio Knowles MD Work Phone: [facility]oms [facility] MedinceComment on above:Anxiety Start: 07-10-2025 End: 03-01-3647Kiivhr flowsheetMacynthia LOVELACE Work Phone: NOPI [facility]icsStart: 07-10-2025 End: 86-49-0667Nynffr flowsNatan LOVELACE Work Phone: NOCE [facility]opaedicsStart: 07-10-2025 End: 83-01-8882Dbgosa outpatient new 30 minutesMattkendra Emery Trev LOVELACE Work Phone: NOCY [facility] OrthopaedicsComment on above:Right hip pain (Primary Dx); Arthritis of right hip; Right leg painStart: 07-10-2025 End: 38-01-8184gxkjtxkaqhAZUZPUG J MEYERNot AvailableStart: 07-09-2025 End: 75-44-3148UrwnpjFvstxn B Berry MD Work Phone: NOIR [facility] Brice MedinceComment on above:Cervical stenosis of spinal canalStart: 06-27-2025 End: 61-20-3080Pzhpetdbg Result EncounterGeneric External Data ProviderNOMS External Department UnsolicitedStart: 06-27-2025 End: 24-98-4274Ciwasucty Result EncounterGeneric External Data ProviderNOMS External Department UnsolicitedStart: 06-25-2025 End: 27-40-3454Wzlyog Godwin Knowles MD Work Phone: NOEB [facility] MedinceStart: 06-25-2025 End: 79-44-5529Iutlqd Godwin Knowles MD Work Phone: NONW [facility] MedinceStart: 06-25-2025 End: 31-37-9844Jirnxnialqds care manage srvc 14 day dischargeDsunni Knowles MD Work Phone: NOM[facility] MedinceComment on above: Cerebrovascular accident (CVA), unspecified mechanism (HCC) (Primary Dx); Right thigh pain; Closed displaced subtrochanteric fracture of right femur, sequela; Degeneration of intervertebral disc of lumbar region, unspecified whether pain present; Acute bronchitis, unspecified organismStart: 06-25-2025 End: 66-94-4815eicfarplvaBXCGIX B BERRYNot AvailableStart: 06-21-2025 End: 01-39-9588Nypoav Darion Thomason NP Work Phone: NOMS [facility] MedinceStart: 06-21-2025 End: 87-54-4183Xdwcwjrosa isela Thomason CLINICAL APPEALS REVIEWER Work Phone: NOMS [facility] MedinceStart: 06-21-2025 End: 73-48-2029Votbni outpatient visit 25 minutesKami Thomason CLINICAL APPEALS REVIEWER Work Phone: N[facility] MedinceComment on above:Acute bronchitis, unspecified organism (Primary Dx); Anxiety; Chronic insomniaStart: 06-21-2025 End: 88-40-9450bmdbfmbvtyGES C MILLERNot AvailableStart: 06-15-2025 End: 13-25-5721XazcyuWegbad B Berry MD Work Phone: NOZP [facility] MedinceComment on above:Cervical stenosis of spinal canalStart: 06-05-2025 End: 99-31-6879Obibquite encounterDagregorio Knowles MD Work Phone: NOFG [facility] MedinceStart: 54-65-4912cyuibuqeqt [facility]OTanner [facility] PPGStart: 05-26-2025 End: 14-67-2314Qdvniamfb encounterGeorgette [facility] Call CenterComment on above:HIMStart: 05-26-2025 End: 08-21-9903Ncdadhqho department patient visitMONO [facility] PPGStart: 05-24-2025 End: 47-22-5765Clkfyeqgm department patient visitDAGREGORIO [facility]Start: 05-11-2025 End: 01-95-2713SsrppiDayoltp Rahul YUNG [facility] MedinceComment on above: AnxietyStart: 05-09-2025 End: 82-21-2192JfobeiFwmwdb B Berry MD Work Phone: NOLW [facility] MedinceComment on above:Cervical stenosis of spinal canalStart: 04-11-2025 End: 84-90-8789SlomifOyvkxgc Rahul [facility] MedinceComment on above: AnxietyStart: 04-10-2025 End: 66-67-6188GbsgxlEqcpzx B Berry MD Work Phone: NOMS [facility] MedinceComment on above:Cervical stenosis of spinal canalStart: 03-14-2025 End: 30-85-3736EsiowjEgmydc B Berry MD Work Phone: NOM[facility] POPULATION HEALTHComment on above: Gastroesophageal reflux disease with esophagitis without hemorrhageStart: 03-13-2025 End: 92-73-7117XzimgmGgomjgt Rahul YUNG CI FMComment on above:Chronic insomnia; Anxiety; Cervical stenosis of spinal canalStart: 03-07-2025 End: 39-83-6295Nwvkqg Godwin Knowles MD Work Phone: [facility] CI FMStart: 03-07-2025 End: 67-98-5317Vbkyhh Godwin Knowles MD Work Phone: [facility] CI FMStart: 03-07-2025 End: 64-73-8191Cqdevz outpatient visit 25 minutesMono Knowles MD Work Phone: N[facility] CI FMComment on above:Acute non-recurrent sinusitis, unspecified location (Primary Dx); Bronchospasm; Benign essential hypertension ; Cervical stenosis of spinal canalStart: 03-07-2025 End: 50-53-6563kyvmwmxwujLOYZZI B BERRYNot AvailableStart: 02-28-2025 End: 36-92-5640Txxvqt Godwin Knowles MD Work Phone: [facility] CI FMStart: 02-28-2025 End: 90-12-1446Skuong Godwin Knowles MD Work Phone: [facility] CI FMStart: 02-28-2025 End: 08-09-3875Oxtijb outpatient visit 25 minutesDagregorio Knowles MD Work Phone: [facility] CI FMComment on above:Acute non-recurrent sinusitis, unspecified location (Primary Dx); Bronchospasm; Chest pain, unspecified typeStart: 02-28-2025 End: 78-53-5189qbaihcwrhuXAEYXD B BERRYNot AvailableStart: 02-14-2025 End: 89-22-3258EnromfEehridb Rahul YUNG CI FMComment on above:AnxietyStart: 02-12-2025 End: 31-90-3697Ickjlh flowsMelba Knowles MD Work Phone: [facility] CI FMStart: 02-12-2025 End: 92-06-4697Yudiuo flowsMelba Knowles MD Work Phone: [facility] CI FMStart: 02-12-2025 End: 45-53-7632Nhegge outpatient visit 25 minutesDagregorio Knowles MD Work Phone: [facility] CI FMComment on above:Episodic tension-type headache, not intractable (Primary Dx); Idiopathic chronic gout without tophus, unspecified site; Vertigo; Cervical stenosis of spinal canal; Epilepsy, unspecified, not intractable, without status epilepticusStart: 02-12-2025 End: 99-21-4897fbiubtjiyeKQXJQB B BERRYNot AvailableStart: 01-31-2025 End: 95-80-7025NhmvmmRikwq M Hemmer PA Work Phone: [facility] CI FMComment on above:Chronic insomniaStart: 01-22-2025 End: 41-11-5307Cjqaqyotm department patient visitMONO KNOWLESProUniversity Hospitals Health Systemca [facility] Centertart: 01-08-2025 End: 08-32-4974FqspqtGvbzdq B Berry MD Work Phone: [facility] CI FMComment on above:Cervical stenosis of spinal canalStart: 12-06-2024 End: 66-90-9358Lrmas of hemosidesangita, quantMono Knowles MD Work Phone: [facility] Work Phone: Start: 12-06-2024 End: 81-00-9274Mmcrgnmc preventive med est patient 65yrs& olderMono Knowles [...] hemorrhage; Benign essential hypertension (CMS/HCC); 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/HCC); Stented coronary artery; Right lumbar radiculopathy; Cerebrovascular accident (CVA), unspecified mechanism (CMS/HCC)Start: 12-06-2024 End: 23-66-3506skoatprdzbKLGMCJ B BERRYNot AvailableStart: 12-04-2024 End: 10-80-1190Rewwdfwdq encounterDaisy Crandall CMAProMedica Physicians Cardiology Start: 11-16-2024 End: 05-47-5690Uzixyd flowsDunia Sanchez MD Work Phone: aNA SANDUSKYStart: 11-16-2024 End: 58-58-6418Mmdhae flowsDunia Sanchez MD Work Phone: aNA DANIELAUSKYStart: 11-16-2024 End: 57-43-9089Sbqzbjq encounter Darrius Sanchez MD Work Phone: aNA AJYComment on above:WeaknessStart: 11-16-2024 End: 94-84-0967qpovvncxdgYMONZX BENEDICTNot AvailableStart: 11-09-2024 End: 18-25-4277VnjphyEtfrcc B Berry MD Work Phone: [facility] CI FMComment on above:Cervical stenosis of spinal canalStart: 11-08-2024 End: 12-12-0796Rowqjl outpatient new 60 minutesChristopher Jossy DO Work Phone: ANA BELLEVUEComment on above:History of TIA (transient ischemic attack) (Primary Dx); Spinal stenosis of lumbar region with neurogenic claudication; WeaknessStart: 11-08-2024 End: 13-11-0909jwqicekvdfGNUWFXMKNVO HASSETTNot AvailableStart: 11-08-2024 End: 29-29-7540Sxeuwm flowsheetChristopher Jossy DO Work Phone: ANA BELLEVUEStart: 11-08-2024 End: 74-43-1633Aakwvb flowsheetChristopher Jossy DO Work Phone: ANA BELLEVUEStart: 11-01-2024 End: 15-33-4712Rceefq flowsheetNorma Jin MD Work Phone: [facility] CI ENTStart: 11-01-2024 End: 19-72-4412Bkrabk Bernardo Jin MD Work Phone: [facility] CI ENTStart: 11-01-2024 End: 29-33-6545Skfgnuciu encounterDagregorio Knowles MD Work Phone: [facility] CI FMStart: 11-01-2024 End: 86-89-0116Zozbqw outpatient new 45 minutesHimio Jin MD Work Phone: [facility] CI ENTComment on above:Pharyngoesophageal dysphagiaStart: 11-01-2024 End: 21-08-6418hlqgsnqepaIDKPZM Rafael JINNot AvailableStart: 10-31-2024 End: 02-77-0307Iwjgmcbhm encounterJeremjohnny Renteria PT Work Phone: [facility] CI PTComment on above:PT Eval Reminder (Today makes 3rd attempt to be seen.)Start: 10-23-2024 End: 67-82-2001WhoitcQcdklup Rahul YUNG CI FMComment on above:AnxietyChronic insomniaStart: 10-21-2024 End: 51-55-5331MhknrzWnslijya Schlosser BRIDGE GAME DIRECTOR-TAILINGS MAN Work Phone: [facility] CardiologyComment on above:Med RefillStart: 10-16-2024 End: 20-99-3669Qhjzpeogo encounterJeremjohnny Renteria PT Work Phone: [facility] CI PTComment on above:NCNS PT Eval today; FU Start: 10-09-2024 End: 14-37-9359Mbiwpd outpatient visit 25 minutesDagregorio Knowles MD Work Phone: [facility] CI FMComment on above:Cerebrovascular accident (CVA), unspecified mechanism (CMS/HCC) (Primary Dx); Cervical stenosis of spinal canal; Spinal stenosis of lumbar region with neurogenic claudicationStart: 10-09-2024 End: 73-39-3948dzfzclrjooXIXGOC B BERRYNot AvailableStart: 10-06-2024 End: 20-75-6193ynbtiysqdkEGVOJMMercy Health Clermont Hospitaltart: 09-22-2024 End: 56-30-0668Cblruf outpatient visit 25 minutesMarylou LOVELACE Work Phone: [facility] CI FMComment on above:IRINA (acute kidney injury) (CMS/HCC) (Primary Dx); Stage 3b chronic kidney disease (HCC) (CMS/HCC); Benign essential hypertension (CMS/HCC)Start: 09-22-2024 End: 77-56-5953shhnxogppkCWDXW M HEMMERNot AvailableStart: 09-20-2024 End: 44-67-7796IelahcLsasghl Rahul YUNG CI FMComment on above:Anxiety; Cervical stenosis of spinal canalStart: 09-14-2024 End: 86-40-0332Tmktbjofh department patient visitDAGREGORIO Coreas [facility] Centertart: 65-45-1766myuzdocypuMOHQHNDiley Ridge [facility] Start: 08-31-2024 End: 34-75-4617Izkkicrtx encounterAimee Wednesday GENERAL FARM MANAGER Work Phone: [facility] CI FMStart: 75-20-4001skpmujlhkjNNYSQPParkview Healthtart: 08-30-2024 End: 10-00-5745Jzszkq flowsMelba Knowles MD Work Phone: [facility] CI FMStart: 08-30-2024 End: 67-15-5395Ruvfls Godwin Knowles MD Work Phone: [facility] CI FMStart: 08-30-2024 End: 67-71-4769Tkmlki outpatient visit 25 minutesDagregorio Knowles MD Work Phone: [facility] CI FMComment on above:Dysarthria (Primary Dx); Cerebrovascular accident (CVA), unspecified mechanism (CMS/HCC); Spinal stenosis of lumbar region with neurogenic claudication; Mixed hyperlipidemia (CMS/HCC)Start: 08-30-2024 End: 61-62-0493orfdnryekwAZDEEY B BERRYNot AvailableStart: 08-24-2024 End: 61-85-6393Srqpblwwe encounterRobert Curry MD Work Phone: [facility] Internal MedicineComment on above:ResultsStart: 08-23-2024 End: 81-63-2540qxazpuwoaeFMBNJO HARRISNot AvailableStart: 08-17-2024 End: 06-16-2362JvlsstDxndzc B Berry MD Work Phone: [facility] CI FMComment on above:Cervical stenosis of spinal canalStart: 08-15-2024 End: 02-65-4191Spfduzgtk encounterSahra Hernandez Physicians Neurology Comment on above:NEW PATIENT REFERRALStart: 08-10-2024 End: 80-54-0782nrtpamxtenAVHBBF B BERRYWilson Street Hospitaltart: 07-20-2024 End: 02-77-9087ViccfoQvnwl Dukles LPNNBARBARA CI FMComment on above:Cervical stenosis of spinal canalStart: 07-19-2024 End: 39-68-0604GxrupiFsxkqp M Shively NP Work Phone: [facility] CI FMComment on above:Parotiditis; ThrushStart: 07-12-2024 End: 97-26-2715Cgjbvo flowsMelba Knowles MD Work Phone: [facility] CI FMStart: 07-12-2024 End: 18-74-6937Ifqsfp flowsMelba Knowles MD Work Phone: [facility] CI FMStart: 07-12-2024 End: 06-91-9576Uocquvmcx encounterMono Knowles MD Work Phone: [facility] CI FMComment on above:Med RefillStart: 07-12-2024 End: 32-88-2093Xlgoyl outpatient visit 25 minutesDagregorio Knowles MD Work Phone: [facility] CI FMComment on above:Chest discomfort (Primary Dx); Costochondritis, acute; Pain of right thigh; Lumbar herniated disc; Right lumbar radiculopathyStart: 07-11-2024 End: 22-43-5437Xgookdzwz Result EncounterMono Knowles MD Work Phone: [phone] External Department UnsolicitedStart: 07-11-2024 End: 21-07-3335Tzuaakfee Result EncounterMono Knowles MD Work Phone: [facility] External Department UnsolicitedStart: 06-29-2024 End: 20-48-0492XlkwmgAnwekk B Berry MD Work Phone: [facility] CI FMComment on above:AnxietyStart: 06-26-2024 End: 49-90-8979Uajasktwkrry care manage srvc 14 day dischargeDsunni Knowles MD Work Phone: [facility] CI FMComment on above:Syncope, unspecified syncope type (Primary Dx); Pain of right thigh; Lumbar herniated disc; Right lumbar radiculopathy; Vertigo; Chest discomfortStart: 06-22-2024 End: 96-11-2259EpypxcKfffg Wednesday GENERAL FARM MANAGER Work Phone: [facility] CI FMComment on above:Cervical stenosis of spinal canalStart: 06-21-2024 End: 90-56-5127Hrxyockwx Result EncounterGeneric External Data ProviderNOMS External Department UnsolicitedStart: 06-21-2024 End: 50-49-1069Ouahsazzm Result EncounterGeneric External Data ProviderNOMS External Department UnsolicitedStart: 05-29-2024 End: 89-44-5248Geunwcjxx encounterMono Knowles MD Work Phone: [facility] CI FMStart: 05-24-2024 End: 66-33-8016Xrvhme Soto Ray CLINICAL APPEALS REVIEWER Work Phone: [facility] CI FMStart: 05-24-2024 End: 93-05-7274Dvnghp Soto Ray CLINICAL APPEALS REVIEWER Work Phone: [facility] CI FMStart: 05-24-2024 End: 99-14-9872Rvhbmh outpatient visit 25 minutesShlashonda Ray CLINICAL APPEALS REVIEWER Work Phone: [facility] CI FMComment on above:Parotiditis (Primary Dx); Cervical stenosis of spinal canalStart: 05-10-2024 End: 92-80-4551Zbfnox Godwin Knowles MD Work Phone: [facility] CI FMStart: 05-10-2024 End: 57-77-9613Xpoyqo Godwin Knowles MD Work Phone: [facility] CI FMStart: 05-10-2024 End: 20-34-4016Mlfejx outpatient visit 25 minutesDagregorio Knowles MD Work Phone: [facility] CI FMComment on above:Subacute cough (Primary Dx); Acute bronchitis, unspecified organismStart: 04-25-2024 End: 01-10-5535RuerbpKooz Jluis RNProMedica Physicians CardiologyComment on above:Med RefillStart: 12-09-2023 End: 95-55-0342Hdlzga outpatient visit 15 minutesRacheal Chi MD Work Phone: [facility] CardiologyComment on above:Benign essential hypertension (Primary Dx); Coronary artery disease involving swinomish coronary artery of swinomish heart without angina pectorisStart: 60-54-2947Debgohrug encounterQuynh Bustillo CMA [facility] CardiologyStart: 34-57-5604Maqxpejmk encounterQuynh Bustillo CMAProMedica Physicians CardiologyStart: 73-32-1503Edtrbqifg encounter Magalie SIMPSONroMedica Physicians CardiologyStart: 23-24-2021MilyfvSige Clark RNProMedica Physicians CardiologyComment on above:Med RefillStart: 10-27-2023 Jeremy Knowles MD Work Phone: [facility] CI FMStart: 65-46-1154Nhozol flowsMelba Knowles MD Work Phone: [facility] CI FMStart: 10-27-2023 End: 21-22-1834Rtsmxal encounter statusMono Knowles MD Work Phone: [facility] Work Phone: Start: 10-27-2023 End: 10-25-7263Glqpntuc preventive med est patient 65yrs& olderMono Knowles MD Work Phone: [facility] CI FMComment on above:Wellness examination (Primary Dx); 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 (CMS/HCC); Stented [...] stenosis of spinal canal; Right lumbar radiculopathyStart: 96-51-3148QrwtptTylerfpv Bialecki BRIDGE GAME DIRECTOR-TAILINGS MAN Work Phone: [facility] CardiologyComment on above:Med RefillStart: 90-79-7060vdsqoupynbSM DANIEL BERRYFacility:H1 Procedures DateProcedureProcedure DetailPerforming ClinicianStart: 44-39-8373Tbqwj hip unilateral with pelvis 2-3 viewsMattkishaw Yuly LOVELACE Work Phone: Start: 40-93-1855PZVXU CULTURE 2Generic External Data ProviderStart: 31-83-0545ZBPJO CULTURE 1Generic External Data ProviderStart: 16-36-9230Rrjpd of prostate specific antigen Mayur Knowles MD Work Phone: Start: 11-16-2024 End: 13-27-1415Ojiywz emg ea extremty w/paraspinl area completeChristopher Jossy DO Work Phone: Start: 38-55-3177JY JACOB PERF SPECT REST STRMono Knowles MD Work Phone: Start: 41-95-1629AACHW CULTURE 2Generic External Data ProviderStart: 43-71-1118VWPMG CULTURE 1Generic External Data ProviderStart: 18-57-4031BlshxfkirlePazjdcqx Rozinacarai BRIDGE GAME DIRECTOR-TAILINGS MAN Work Phone: Plan of Treatment DateCare ActivityDetailAuthorStart: 23-81-7676Qsnjqgf ScreeningTobacco Screening ProMmarshall medical center southa Health SystemStart: 34-57-4373Pztuksgln for malignant neoplasm of colonColonoscopyProUniversity Hospitals Health Systemca Health SystemStart: 70-94-4869Fwanfpj ScreeningTobacco ScreeningProUniversity Hospitals Health Systemca [facility] SystemStart: 07-27-2025 End: 55-87-0418Untuukt encounter azdabrigr53/14/2025 9:15 AM EST Office Visit [facility] [place] [facility] [address] [facility] [[email or web address]] [address] [place] [address] Mono Knowles MD [address] [place] [address] NOMS [place] Brice MedinceStart: 07-18-2025 End: 69-14-8449Mhqutat encounter tscbfibfi31/05/2025 9:15 AM EST Office Visit [facility] [place] [facility] [address] [place] [address] Mono Knowles MD [address] [place] [address] [facility]S [place] Brice MedinceStart: 07-10-2025 End: 47-04-8345Xeekepk encounter procedureNOMS Grayson OrthopaedicsComment on above:Left leg pain (Primary Dx)Start: 07-04-2025 End: 88-22-7465Hjdjixa encounter /22/2025 9:00 AM EDT Office Visit [facility] [place] [facility] [address] [place] [address] Mono Knowles MD [address] [place] [address] N[facility]S [place] Brice MedinceStart: 06-25-2025 End: 31-47-7797Bnbiiea encounter procedureNOMS [place] Brice MedinceComment on above:ArrivedStart: 06-21-2025 End: 59-09-8973Wxqsqee encounter rzvaepvyk65/09/2025 9:00 AM EDT Office Visit [facility] [place] [facility] [address] [place] [address] Kami Thomason, DIA [address] [place] [address] ArrivedNOMS [place] Brice MedinceComment on above:ArrivedStart: 06-06-2025 End: 43-37-4504Umareeq encounter procedureNOMS CI FMStart: 68-88-1054Zuvfpay ScreeningTobacco ScreeningProMedica [facility]ma Health SystemStart: 05-17-2025 End: 94-29-5968Eqbamjs encounter /04/2025 9:00 AM EDT Office Visit [facility] FM [address] [place] [address] Mono Knowles MD [address] [place] [address] NOMS CI FMStart: 53-73-4884LXAWI-19 Vaccine ( season)COVID-19 Vaccine ( season)NOMS HealthcareStart: 05-14-2025 COVID-19 Vaccine ( season)COVID-19 Vaccine ( season) [facility] SystemStart: 37-29-3476Vnpewqrbf vaccinationNOMS Healthcare Start: 03-07-2025 End: 77-31-9024Gjbafdf encounter procedureNOMS CI FMComment on above:Arrived Start: 02-28-2025 End: 82-21-7808Lldatpt encounter oncxqgnfk23/18/2025 10:30 AM EDT Office Visit [facility] FM [address] [facility] [[email or web address]] [address] [place] [address] Mono Knowles MD [address] [facility] [address] [place] [address] ArrivedNOMS CI FMComment on above:ArrivedStart: 02-12-2025 End: 24-31-1774Meesdir encounter procedureNOMS CI FMComment on above:Arrived Start: 01-08-2025 End: 79-58-6336Fkwmkwz encounter xdstnctjo14/28/2025 3:45 PM EDT Office Visit [facility] [place] [address] [place] [phone] Don Fenton DO [address] [place] [address] SATURNINO BELLEVUEStart: 12-27-2024 End: 42-40-3545Zfsunvg encounter iofjtqpbp17/16/2025 2:20 PM EDT Office Visit [facility] [address] [facility] [[email or web address]] [address] [place] [address] Norma Jin MD [address] [facility] [address] [place] [address] NOMS CI ENTStart: 12-19-2024 End: 17-61-7643Zizalrj encounter xopqgvrix41/08/2025 10:30 AM EDT Procedure Visit [facility] [place]MONA [address] [facility] [address] [place] [address] Don Fenton DO [address] [place] [address] SAT[facility]INO SUAREZUSKYStart: 80-69-9352Btmrk BMI ScreeningAdult BMI ScreeningProMercy Health Lorain Hospital SystemStart: 36-50-8491Aadzdtn ScreeningTobacco ScreeningProUniversity Hospitals Health Systemca [facility] SystemStart: 12-06-2024 End: 20-60-0272Upqtgyd encounter procedureNOMS CI FMStart: 12-05-2024 End: 44-73-6609Mcatgjt encounter /25/2025 1:30 PM EDT Office Visit [facility] [address] [place] [address] Neli Neal, BRIDGE GAME DIRECTOR-TAILINGS MAN [address] [place] [address] [facility] CardiologyStart: 2024 End: 83-99-4415Faokmfg encounter wgzbcnzwe48/20/2025 11:30 AM EDT Procedure Visit [facility] [place] [address] [place] [address] Tyler Sanchez MD [address] [place] [id number] SATURNINO CARROLLEVUEStart: 11-22-2024 End: 60-82-3035Rzpcuzy encounter bpelqbsjo49/12/2025 8:30 AM EDT Office Visit [facility] [address] [place] [address] Norma Jin MD [address] [place] [address] NOMS CI ENTStart: 11-20-2024 End: 59-82-6996Iwljbyx encounter fofjywlih53/10/2025 9:15 AM EDT Office Visit [facility] [address] [place] [address] Mono Knowles MD [address] [place] [address] NOMS CI FMStart: 11-16-2024 End: 77-84-3689Cqcqtil encounter procedureANA SANDUSKYComment on above:Arrived Start: 11-09-2024 End: 43-22-8051ymupgpfeiw58/27/2025 9:00 AM EST Evaluation [facility] PT [address] [place] [address] Kevin Renteria, PT [address] [place] [address] NOMS CI PTStart: 11-08-2024 End: 78-41-4208Dwehwaw encounter procedureANA BELLEVUEComment on above: Cerebrovascular accident (CVA), unspecified mechanism (CMS/HCC); Spinal stenosis of lumbar region with neurogenic claudicationStart: 11-08-2024 End: 56-10-4878Apilozcnzxrls receptor, bindingAcetylcholine receptor, binding Lab Routine Weakness Expected: 11/08/2024 (Approximate), Expires: 11/08/2025NOMS HealthcareComment on above:Expected: 11/08/2024 (Approximate), Expires: 11/08/2025Start: 11-08-2024 End: 36-24-5255Amtpfnddpvbbh receptor, blockingAcetylcholine receptor, blocking Lab Routine Weakness Expected: 11/08/2024 (Approximate), Expires: 11/08/2025NOMS HealthcareComment on above:Expected: 11/08/2024 (Approximate), Expires: 11/08/2025Start: 11-08-2024 End: 31-12-9784Jviygorridlqv receptor, modulatingAcetylcholine receptor, modulating Lab Routine Weakness Expected: 11/08/2024 (Approximate), Expires: 11/08/2025NOMS HealthcareComment on above:Expected: 11/08/2024 (Approximate), Expires: 11/08/2025Start: 11-08-2024 End: 36-83-9191NUN 2 ExtremitiesEMG 2 Extremities Neurology Routine Weakness Expected: 11/08/2024, Expires: 11/08/2025NOMS HealthcareComment on above: Expected: 11/08/2024, Expires: 11/08/2025Start: 11-08-2024 End: 74-05-2911HTEE ANTIBODY TESTMUSK ANTIBODY TEST Lab Routine Weakness Expected: 11/08/2024 (Approximate), Expires: 11/08/2025[facility] Work Phone: comment on above:Expected: 11/08/2024 (Approximate), Expires: 11/08/2025Start: 11-01-2024 End: 34-73-4666Kiuctoi encounter procedureNOMS CI ENTComment on above:Dysphagia, unspecified typeStart: 02-14-2025Medicare Annual Wellness (AWV)Medicare Annual Wellness (AWV)NOMS HealthcareStart: 10-26-2024 End: 79-15-6376owbtnsjzks85/13/2025 11:00 AM EST Evaluation [facility] PT [address] [facility] [address] [place] [address] Kevin Renteria, PT [address] [facility] [address] [place] [address] NOMS CI PTStart: 81-97-1175Hutfzri ScreeningTobacco ScreeningMercy Health St. Anne Hospitalca [facility] SystemStart: 10-09-2024 End: 77-09-5994Oqjxaoz encounter usqmiqsqt09/27/2025 11:30 AM EST Office Visit [facility] FM [address] [facility] [address] [place] [address] Mono Knowles MD [address] [facility] [address] [place] [address] NOMS CI FMStart: 09-22-2024 End: 73-96-3069Etjqe metabolic 1998 panel - Serum or PlasmaBasic metabolic panel Lab Routine IRINA (acute kidney injury) (CMS/HCC) Stage 3b chronic kidney disease (HCC) (CMS/HCC) Benign essential hypertension (CMS/HCC) Expected: 09/22/2024 (Approximate), Expires: 09/22/2025[facility] Work Phone: Comment on above:Expected: 09/22/2024 (Approximate), Expires: 09/22/2025Start: 09-22-2024 End: 86-15-0064Dezsvni encounter kmvkydfvy73/10/2025 10:30 AM EST Office Visit [facility] [address] [place] [address] Marylou Larry PA [address] [place] [address] NOMS CI FMStart: 09-18-2024 End: 62-97-7892Kiyxsoq encounter ktlgpdliy59/06/2025 9:00 AM EST Office Visit [facility] [address] [place] [address] Mono Knowles MD [address] [place] [address] NOMS CI FMStart: 08-30-2024 End: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 03/14/2025 1:05 PM EDT Carafate sent. [facility]HealthPjowvhhxnt80-18-7109 Miscellaneous Notes* Telephone Encounter - ALBANIA Gardner - 03/14/2025 1:05 PM EDT Carafate sent. documented in this [facility]07-01-2025 Telephone encounter Note* Telephone Encounter - ALBANIA Gardner - 03/13/2025 4:36 PM EDT OARRS reviewed, Rx sent into patient's pharmacy. [facility]HealthJeffusmzyr23-18-8050 Miscellaneous Notes* Telephone Encounter - ALBANIA Gardner - 03/13/2025 4:36 PM EDT OARRS reviewed, Rx sent into patient's pharmacy. documented in this [facility]06-25-2025 History of Present illness Narrative* Mono Knowles [...] AT BEDTIME 30 tablet 0 [DISCONTINUED] HYDROcodone-acetaminophen (Palmer) 10-325 MG tablet Take 1 tablet by [...] superimposed on stage 3a chronic kidney disease ([facility]) 09/20/2020 Antral ulcer 2016 Anxiety Arthritis [...] Cervical stenosis of spinal canal - HYDROcodone-acetaminophen (Palmer) 10-325 MG tablet; Take 1 tablet by [...] 06/07/2025) for Routine F/U. documented in this encounterCoxHealthIqdxyzpsnd97-72-3607 History of Present illness Narrative* Mono Knowles [...] wheezing. EKG was done on 09/11/24 at [facility]. Over the past 2 weeks, how [...] mouth at bedtime 100 capsule 3 HYDROcodone-acetaminophen (Palmer) 10-325 MG tablet Take 1 tablet by [...] superimposed on stage 3a chronic kidney disease ([facility]) 09/20/2020 Antral ulcer 2016 Anxiety Arthritis [...] or fail to improve. documented in this encounterCoxHealthAqixhlwwhr86-12-6727 Telephone encounter Note* Telephone Encounter - ALBANIA Gardner - 02/14/2025 3:24 PM EDT OARRS reviewed, Rx sent into patient's pharmacy. [facility]HealthKwxleufrau70-47-9878 Miscellaneous Notes* Telephone Encounter - ALBANIA Gardner - 02/14/2025 3:24 PM EDT OARRS reviewed, Rx sent into patient's pharmacy. documented in this encounterCoxHealthPzgtublxtk20-80-8173 History of Present illness Narrative* Mono Knowles [...] and Wednesday. 30 capsule 0 [DISCONTINUED] HYDROcodone-acetaminophen (Palmer) 10-325 MG tablet Take 1 tablet by [...] on stage 3a chronic kidney disease (HCC) ([facility]) 09/20/2020 Antral ulcer 2016 Anxiety Arthritis CAD (coronary artery disease) ([facility]) Colon polyp 2019 Confusion 09/16/2020 Constipation 09/28/2017 COVID-19 09/20/2020 Diverticulosis 2019 Gastritis 2019 Hiatal hernia 2019 History of gastric ulcer Hypertension ([facility]) Injury to penis 06/06/2021 Traumatic rhabdomyolysis ([facility]) 09/20/2020 Tubulovillous adenoma polyp of colon [...] compared to the equimolar-standardized total PSA (Kika Clarkridge). Comparison of serial PSA results should be [...] Cervical stenosis of spinal canal - HYDROcodone-acetaminophen (Palmer) 10-325 MG tablet; Take 1 tablet by [...] for Controlled Med Review. documented in this [facility]05-21-2025 Telephone encounter Note* [facility]/31/[facility] 1:05 PM EDT [facility] sent to [facility] in [place] [id number] Miscellaneous Notes* Telephone Encounter - [facility] - 01/31/2025 1:05 PM EDT Ambien sent to [facility] [place] documented in this [facility]04-28-2025 Telephone encounter Note* Telephone Encounter - [facility] - 01/08/2025 1:31 PM EDT HYDROcodone-acetaminophen (Palmer) 10-325 MG tablet [facility] [place] [id number] Miscellaneous Notes* [facility]31 PM EDT HYDROcodone-acetaminophen (Palmer) 10-325 MG tablet [facility] [place] documented in this [facility]03-26-2025 History of Present illness Narrative* Mono Knowles MD - 12/06/2024 9:15 AM EDT Images from the original note were not included. HPI Med Refill Additional comments: [facility] Last edited by Odalys Villagomez LPN [...] mouth at bedtime 100 capsule 3 HYDROcodone-acetaminophen (Palmer) 10-325 MG tablet Take 1 tablet by [...] Do you have a medical power of prosecuting attorney?: No Objective : BP 128/76 Pulse [...] Cervical stenosis of spinal canal - HYDROcodone-acetaminophen (Palmer) 10-325 MG tablet; Take 1 tablet by [...] hemorrhage Benign essential hypertension (CMS/HCC) 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 (CMS/HCC) Stented coronary artery Right lumbar radiculopathy Cerebrovascular accident (CVA), unspecified mechanism (CMS/HCC) No orders of the defined types were placed in this encounter. Electronically signed by Mono Knowles MD on December 06, 2024 documented in this enco[id number] Miscellaneous Notes* Telephone Encounter - Daisy Crandall - 12/04/2024 2:01 PM EDT Called patient to remind them to bring their most current copy of their medication list with them to their appt. Unable to reach due to voice mail not set up. [facility] Telephone encounter Note* Telephone Encounter - Daisy Carndall - 12/04/2024 2:01 PM EDT Called patient to remind them to bring their most current copy of their medication list with them to their appt. Unable to reach due to voice mail not set up. [facility] PowerDMS [id number] History of Present illness Narrative* Malou Novak MA - 11/16/2024 12:00 PM EST Images from the original note were not included. Reason for Appointment: EMG Patient: Taj Ring : 1945 EMG Computer: [employer] Referring Physician: Dr. Don Fenton EMG: [employer] metal melter: Malou Novak CMA Office Location: [place] Reason for EMG: c/o balance difficulty. Difficulty swallowing. Denies symptoms in the arms. No hx of DM, takes Eliquis. Comments: Procedure explained to the patient who expressed understanding. documented in this [facility]02-27-2025 Telephone encounter Note* Telephone Encounter - Zeesergio Alvarez - 11/09/2024 10:11 AM EST HYDROcodone-acetaminophen (Palmer) 10-325 MG tablet [facility] [id number] Miscellaneous Notes* Telephone Encounter - Zee Alvarez - 11/09/2024 10:11 AM EST HYDROcodone-acetaminophen (Palmer) 10-325 MG tablet [facility] documented in this [facility]02-26-2025 History of Present illness Narrative* Don Fenton DO - 11/08/2024 2:30 PM EST Images from the original note were not included. Chief complaint: Spinal stenosis and language disturbance Subjective Taj Ring, 78 y.o., male Patient presents today for a neurologic consult at the request of Dr. Knowles for CVA, spinal stenosis. He is accompanied by his life partner. Patient is a resident at [facility]. Patient has his stroke May 19. [...] on stage 3a chronic kidney disease (HCC) ([facility]) 09/20/2020 Antral ulcer 2016 Anxiety Arthritis CAD (coronary artery disease) ([facility]) Colon polyp 2019 Confusion 09/16/2020 Constipation 09/28/2017 COVID-19 09/20/2020 Diverticulosis 2019 Gastritis 2019 Hiatal hernia 2019 History of gastric ulcer Hypertension ([facility]) Injury to penis 06/06/2021 Traumatic rhabdomyolysis ([facility]) 09/20/2020 Tubulovillous adenoma polyp of colon 2019 Past Surgical History: Procedure Laterality Date CATARACT EXTRACTION Right 01/2021 CERVICAL DISCECTOMY 08/16/2017 C4-C5 COLONOSCOPY 2010 COLONOSCOPY 01/27/2019 [place] & [place] COLONOSCOPY W/ POLYPECTOMY 08/2020 [place] (tubulovillous adenoma) [...] , wrist extensors , wrist flexor , kiln puller strength 5/5. LUE Strength deltoid , biceps , triceps , wrist extensors , wrist flexor , kiln puller strength 5/5. RLE Strength illopsoas, quadriceps, tibialis [...] reflex 2+ . Ferrari's sign negative. Coordination: Hkplcw-sn-xkfn testing and rapid alternating movements are normal Gait: Patient ambulates with a cane Review and summary of old records: Patient was seen in the emergency department at [place] in October 06, 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 However, the patient's reflexes do seem [...] referral to tertiary care center such as [facility] for further evaluationtreatment depending on results of [...] plan, and return instructions documented in this encounterCoxHealthWgvnopyfzp45-03-2070 Telephone encounter Note* Telephone Encounter - Mono Knowles MD - 11/02/2024 12:38 PM EST Rx was sent. [facility] [id number] Miscellaneous Notes* Telephone Encounter - Mono Knowles MD - 11/02/2024 12:38 PM EST Rx was sent. * Telephone Encounter - Maida Harris - 11/01/2024 8:10 AM EST Pt states that he is wheezing really bad. He needs something for his chest. They'd like it sent to [facility] documented in this encounterNOSaint [facility]'s Health SystemJmxdeojnsh23-38-4224 Telephone encounter Note* Telephone Encounter - Maida Harris - 11/01/2024 8:10 AM EST Pt states that he is wheezing really bad. He needs something for his chest. They'd like it sent to jess[facility] [id number] Telephone encounter Note* Telephone Encounter - Veronika Sanchez - 10/31/2024 12:45 PM EST NCNS for PT Eval; 3 attempt. [facility] [id number] Miscellaneous Notes* Telephone Encounter - Veronika Sanchez [...] up; unable to contact. documented in this [facility]02-18-2025 Telephone encounter Note* Telephone Encounter - Veronika Sanchez - 10/31/2024 10:13 AM EST Tried to contact to remind / confirm PT Eval today that is on its' 3rd attempt; 2 & 10/26 bothwere cx. It rang into voicemail and indicated not set up; unable to contact. [facility] [id number] Telephone encounter Note* Telephone Encounter - ALBANIA Gardner - 10/25/2024 1:29 PM EST OARRS reviewed, Rx sent into patient's pharmacy. [facility] [id number] Miscellaneous Notes* Telephone Encounter - ALBANIA Gardner - 10/25/2024 1:29 PM EST OARRS reviewed, Rx sent into patient's pharmacy. documented in this [facility]02-08-2025 Miscellaneous Notes* Telephone Encounter - Alyssa Aceves RN - 10/21/2024 10:51 AM EST OV 12/09/23 documented in this [facility]02-08-2025 Telephone encounter Note* Telephone Encounter - Alyssa Aceves RN - 10/21/2024 10:51 AM EST OV 12/09/23 [facility]02-06-2025 Telephone encounter Note* Telephone Encounter - Veronika Sanchez - 10/19/2024 10:44 AM EST Contacted re: SHANNAN for PT Eval and he rs 2/13 @ 11 w/ Kevin Renteria, PT. [id number] Miscellaneous Notes* Telephone Encounter - Veronika Sanchez - 10/19/2024 10:44 AM EST Contacted re: KATHINS for PT Eval and he rs 213 @ 11 w/ Kevin Renteria, PT. * Telephone Encounter - Veronika Sanchez - 10/16/2024 8:31 AM EST Tried to contact re: KATHINS for his PT Eval; unable to lm re: no voicemail set-up. documented in this enco[id number] Telephone encounter Note* Telephone Encounter - Veronika Sanchez - 10/16/2024 8:31 AM EST Tried to contact re: KATHINS for his PT Eval; unable to lm re: no voicemail set-up. [id number] History of Present illness Narrative* Mono Knowles MD - 10/09/2024 11:30 AM EST Images from the original note were not included. HPI Follow-up Additional comments: Pain med Med Refill Additional comments: Hydrocodone--[facility] observation follow up Additional comments: Pt was admitted to [facility] 10/06/24 for observation for leg weakness they discharged him home 10/07/24 no med changes they advised pt he may need an MRI discuss changing referrals Additional comments: Pt was [facility] he does not want to use any [facility] providers he would like new referrals sent to use [place] locations Last edited by Odalys Villagomez LPN on 10/09/2024 11:25 AM. Subjective Patient ID: Taj Ring is a 78 y.o. male who presents for Follow-up (Pain med), Dysphagia, Med Refill (Hydrocodone--[facility]), observation follow up (Pt was admitted to [facility] 10/06/24 for observation for leg weakness they discharged him home 10/07/24 no med changes they advised pt he may need an MRI), and discuss changing referrals (Pt was referred to neuro through [facility] and speech therapy through [facility] he does not want to use any [facility] providers he would like new referralssent [facility]). Subjective Patient here for follow-up of [...] at bedtime 30 tablet 2 [DISCONTINUED] HYDROcodone-acetaminophen (Palmer) 10-325 MG tablet Take 1 tablet by [...] on stage 3a chronic kidney disease (HCC) ([facility]) 09/20/2020 Antral ulcer 2016 Anxiety Arthritis CAD (coronary artery disease) ([facility]) Colon polyp 2019 Confusion 09/16/2020 Constipation [...] Cervical stenosis of spinal canal - HYDROcodone-acetaminophen (Palmer) 10-325 MG tablet; Take 1 tablet by mouth every 6 (six) hours ifneeded for severe pain Spinal stenosis of lumbar region with neurogenic claudication - Ambulatory referral to Physical Therapy; Future - Ambulatory referral to Neurology; Future Follow up in about 6 weeks (around 11/20/2024) for Routine F/U. documented in this enco[id number] History of Present illness Narrative* ALBANIA Gardner - 09/22/2024 8:30 AM EST Images from the original note were not included. HPI ER Follow-up Additional comments: [facility] Last edited by Summer Kay MA on 09/22/2024 7:29 AM. Subjective Patient ID: Taj Ring is a 78 y.o. male who presents for ER Follow-up (Went to er due to weakness 09/14/24 [place] [facility]). Pt went to Er due to weakness dizziness and being unbalanced , they did do labs, and DI testing Pt girlfriend stated he is needing labwork to see how his kidneys are doing , [facility] stated [facility] [...] Flowsheet Row Patient Outreach from 09/19/2024 in [facility] with Karol Wednesday, GENERAL FARM MANAGER Hospital Information ED, Hospital or Snf Facility Discharge? ED Patient has been contacted within 1 week of being seen in the ED Yes Diagnosis generalized weakness Discharge Date 09/14/24 Discharged To: Home Setting Discharge Hospital [facility] Engagement Call Start Time 08 Admission Date [...] mouth at bedtime 100 capsule 3 HYDROcodone-acetaminophen (Palmer) 10-325 MG tablet Take 1 tablet by [...] before bedtime. 60 tablet 3 [DISCONTINUED] HYDROcodone-acetaminophen (Palmer) 10-325 MG tablet Take 1 tablet by [...] C4-C5 COLONOSCOPY 2010 COLONOSCOPY 01/27/2019 [place]oscopy [place] COLONOSCOPY W/ POLYPECTOMY 08/2020 [place] (tubulovillous adenoma) [...] for Appointment As Scheduled. documented in this enco[id number] NoteXR CHEST 1 VW CLINICAL INFORMATION: . weakness. TECHNIQUE/PROCEDURE: Chest radiograph, single view. COMPARISON: Prior chest radiographs, most recently 08/10/2024 FINDINGS: No tracheal deviation. Cardiac and mediastinal contours are normal. No pneumothorax or free air. Nopleural effusion or focal consolidation. IMPRESSION: * No radiographic evidence of acute cardiopulmonary disease. Finalized by William Javier MD on 09/14/2024 12:14 [facility] 08-31-2024 Telephone encounter Note* Telephone Encounter - Mono Knowles MD - 08/31/2024 12:10 PM EST Rx sent. [id number] Miscellaneous Notes* Telephone Encounter - Mono Knowles MD - 08/31/2024 12:10 PM EST Rx sent. documented in this [facility]12-19-2024 History of Present illness Narrative* Karol Joyner LPN - 08/31/2024 8:12 AM EST [facility] called this morning. Pt is wheezing and coughing and was up all night coughing. She is asking if you could send something in for pt to help with this wheezing and coughing issue. [facility] in [place]. He does not want to go to ER. She states pt talked with you about it at his appt the other day. documented in this enco[id number] History of Present illness Narrative* Mono Knowles MD - 08/30/2024 9:15 AM EST Images from the original note were not included. HPI Follow-up Additional comments: Recent hospitalization 08/10/24-08/12/24 at [facility] dx: CVA discharged home advised to stop ASA Med Refill Additional comments: Gabapentin--[facility] Results Additional comments: Both MRI's Last edited by Odalys Villaogmez LPN on 08/30/2024 9:28 AM. Subjective Patient ID: Taj Ring is a 78 y.o. male who presents for Follow-up (Recent hospitalization 08/10/24-08/12/24 at [facility] dx: CVA discharged home advised to stop ASA), Med Refill (Gabapentin--[facility]), Dysphagia, and Results (Both MRI's). Flowsheet Row Patient Outreach from 08/15/2024 in [facility] with Karol Joyner LPN Hospital Information ED, Hospital or Snf Facility Discharge? Hospital Patient has been contacted within two business days of discharge Yes Diagnosis CVA Discharge Date 08/12/24 Discharged To: Home Setting Discharge Hospital [facility] Engagement Call Start Time [...] mouth at bedtime 100 capsule 3 HYDROcodone-acetaminophen (Palmer) 10-325 MG tablet Take 1 tablet by [...] INSTRUCTIONS 21 tablet 0 [DISCONTINUED] nystatin (Mycostatin) 154992 UNIT/ML suspension SWISH AND SWALLOW FIVE MILLILITERS [...] on stage 3a chronic kidney disease (HCC) ([facility]) 09/20/2020 Antral ulcer 2016 Anxiety Arthritis CAD (coronary artery disease) ([facility]) Colon polyp 2019 Confusion 09/16/2020 Constipation 09/28/2017 COVID-19 09/20/2020 Diverticulosis 2019 Gastritis 2019 Hiatal hernia 2019 History of gastric ulcer Hypertension ([facility]) Injury to penis 06/06/2021 Traumatic rhabdomyolysis ([facility]) 09/20/2020 Tubulovillous adenoma polyp of colon [...] 10/31/2024) for Routine F/U. documented in this enco[id number] Miscellaneous Notes* Telephone Encounter - Robert Curry MD - 08/24/2024 12:51 PM EST Patient was admitted under our service at [facility] the week of August 10. At [...] the recommendation for a repeat lab order. Motor Coach Operator also attempted to contact the patient's PC Dr Mono Knowles at [phone] who is a providerat [facility]. The phone [...] much for doing this. documented in this [facility]Mag[facility]12-12-2024 Telephone encounter Note* Telephone Encounter - Robert Curry MD - 08/24/2024 12:51 PM EST Patient was admitted under our service at [facility] the week of August 10. At [...] up with his PCP for this. [facility]12-12-20[facility] Telephone encounter Note* Telephone Encounter - Lovely Valdivia CMA - 08/24/2024 12:51 PM EST Attempted to contact the patient, phone rang once and then is stated that voicemail box has not been set up . Letter has been composed and mailed to the patient informing him of his results and the recommendation for a repeat lab order. Motor Coach Operator also attempted to contact the patient's PC Dr Mono Knowles at [phone] [address] [facility]. The phone rang and then it stated the number that you are calling is not in service at this time . Emergency contact listed is his spouse and the same phone number is listed for her also. [facility]12-12-2024 Telephone encounter Note* Telephone Encounter - Robert Curry MD - 08/24/2024 12:51 PM EST Thank you so much for doing this. [facility]12-05-2024 Telephone encounter Note* Telephone Encounter - ALBANIA Gardner - 08/17/2024 3:12 PM EST OARRS reviewed, Rx sent into patient's pharmacy. [id number] Miscellaneous Notes* Telephone Encounter - ALBANIA Gardner - 08/17/2024 3:12 PM EST OARRS reviewed, Rx sent into patient's pharmacy. * Telephone Encounter - Maida Harris - 08/17/2024 2:34 PM EST HYDROcodone-acetaminophen (Palmer) 10-325 MG tablet pt's partner called concerned about the refill being sent in. Stated she spoke with Karol about it. Jessica Caputo documented in this enco[id number] Telephone encounter Note* Telephone Encounter - Maida Harris - 08/17/2024 2:34 PM EST HYDROcodone-acetaminophen (Palmer) 10-325 MG tablet pt's partner called concerned about the refill being sent in. Stated she spoke with Karol about it. Jessica Caputo [id number] Miscellaneous Notes* Telephone Encounter - Sahra Richardson [...] - 08/15/2024 9:19 AM EST 1st attempt: Motor Coach Operator attempted to contact patient and offer to schedule in with our clinic as we have received their new patient referral. Motor Coach Operator received an automated message stating the following: patient's voicemail box has not been set up yet. * Telephone Encounter - Shania Yeh - 08/15/2024 9:19 AM EST 2nd attempt: Motor Coach Operator attempted to contact patient once more and offer to schedule in with our clinicas we have received their new patient referral. Motor Coach Operator received an automated message stating the following: patient's voicemail box has not been set up yet. documented in this encounterMag[facility]12-[facility]-2024 Telephone encounter Note* Telephone Encounter - Sahra [...] INSURANCE INFORMATION TO THEIR NEW PATIENT APPOINTMENT [facility]12-03-20[facility] Telephone encounter Note* Telephone Encounter - Shainahuma Yeh - 08/15/2024 9:19 AM EST 1st attempt: Motor Coach Operator attempted to contact patient and offer to schedule in with our clinic as we have received their new patient referral. Motor Coach Operator received an automated message stating the following: patient's voicemail box has not been set up yet. [facility] [id number] Telephone encounter Note* Telephone Encounter - Shaina Yeh - 08/15/2024 9:19 AM EST 2nd attempt: Motor Coach Operator attempted to contact patient once more and offer to schedule in with our clinicas we have received their new patient referral. Motor Coach Operator received an automated message stating the following: patient's voicemail box has not been set up yet. [facility]11-07-2024 Telephone encounter Note* Telephone Encounter - ALBANIA Gardner - 07/20/2024 9:39 AM EST OARRS reviewed, Rx sent into patient's pharmacy. [id number] Miscellaneous Notes* Telephone Encounter - ALBANIA Gardner - 07/20/2024 9:39 AM EST OARRS reviewed, Rx sent into patient's pharmacy. documented in this enco[id number] Telephone encounter Note* Telephone Encounter - Summer Kay MA - 07/19/2024 11:55 AM EST Is the medrol arnie ok to give pt [id number] Miscellaneous Notes* Telephone Encounter - Summer Kay MA - 07/19/2024 11:55 AM EST Is the medrol arnie ok to give pt documented in this [facility]10-30-2024 Telephone encounter Note* Telephone Encounter - Zee Alvarez - 07/12/2024 11:52 AM EDT Celebrex sent to [facility] in [place] [id number] Miscellaneous Notes* Telephone Encounter - Zee Alvarez - 07/12/2024 11:52 AM EDT Celebrex sent to [facility] in [place] documented in this enco[id number] History of Present illness Narrative* Mono Knowles [...] BY MOUTH DAILY 100 tablet 3 HYDROcodone-acetaminophen (Palmer) 10-325 MG tablet Take 1 tablet by [...] on stage 3a chronic kidney disease (HCC) ([facility]) 09/20/2020 Antral ulcer 2016 Anxiety Arthritis CAD (coronary artery disease) ([facility]) Colon polyp 2019 Confusion 09/16/2020 Constipation [...] 09/11/2024) for Routine F/U. documented in this [facility]10-17-2024 Telephone encounter Note* Telephone Encounter - Maida Harris - 06/29/2024 1:33 PM EDT ALPRAZolam (Xanax) 1 MG tablet to [id number] Miscellaneous Notes* Telephone Encounter - Maida Harris - 06/29/2024 1:33 PM EDT ALPRAZolam (Xanax) 1 MG tablet to [facility] documented in this [facility]10-14-2024 History of Present illness Narrative* Mono Knowles MD - 06/26/2024 9:30 AM EDT Images from the original note were not included. M HPI Follow-up Additional comments: Admitted [facility] 06/21/24 dx: syncope,suspected cva .hypotension discharged home 06/22/24 no med changes made Med Refill Additional comments: Gabapentin.meclizine-- [facility] Last edited by Odalys Villagomez LPN on 06/26/2024 9:36 AM. Subjective Patient ID: Taj Ring is a 78 y.o. male who presents for Follow-up (Admitted [facility] 06/21/24 dx: syncope,suspected cva .hypotension discharged home 06/22/24 no med changes made) and Med Refill (Gabapentin.meclizine-- [facility]). Flowsheet Row Patient Outreach from 06/23/2024 in [facility] with Karol ArELAINE granados Hospital Information ED, Hospital or Snf Facility Discharge? Hospital Patient has been contacted within two business days of discharge Yes Discharge Date 06/22/24 Discharged To: Home Setting Discharge Hospital [facility] Engagement Call Start Time 1330 Admission [...] BY MOUTH DAILY 100 tablet 3 HYDROcodone-acetaminophen (Palmer) 10-325 MG tablet Take 1 tablet by [...] at bedtime. 90 capsule 3 [DISCONTINUED] HYDROcodone-acetaminophen (Palmer) 10-325 MG tablet Take 1 tablet by [...] on stage 3a chronic kidney disease (HCC) ([facility]) 09/20/2020 Antral ulcer 2016 Anxiety Arthritis CAD (coronary artery disease)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 [place] [address] PCP - GeneralInternal Medicine03/01/23Team MemberRelationshipSpecialtyStart Date End Date Mono Knowles MD [address] [place] [address] PCP - [place] MARK09/13/21 Mono Knowles MD [address] [place] [address] PCP - GeneralInternal Medicine03/01/23Team MemberRelationshipSpecialtyStart Date End Date Mono Knowles MD [address] [place] [address] PCP - Jonathan OH09/13/21 Mono Knowles MD [address] [place] [address] PCP - GeneralInternal Medicine03/01/23Team MemberRelationshipSpecialtyStart Date End Date Mono Knowles MD [address] [place] [address] PCP - [place] OH09/13/21 Mono Knowles MD [address] [place] [address] PCP - GeneralInternal Medicine03/01/23Te MemberRelationshipSpecialtyStart Date End Date Mono Knowles MD [address] [place] [address] PCP - Jonathan OH09/13/21 Mono Knowles MD [address] [place] [address] PCP - GeneralInternal Medicine03/01/23Te MemberRelationshipSpecialtyStart Date End Date Mono Knowles MD [address] [place] [address] PCP - [place] OH09/13/21 Mono Knowles MD [address] [place] [address] PCP - GeneralInternal Medicine03/01/23 Summer Velazquez, JOAN [address] [place] [address] Clinical AdvocateFamily Medicine Ruth Johnston LPN [address] [facility] [address] [place] [address] Team MemberRelationshipSpecialtyStart DateEnd Date Mono Knowles MD [address] [facility] [address] [place] [address] PCP - Jonathan FLORES09/13/21 Mono Knowles MD [address] [facility] [address] [place] [address] PCP - GeneralInternal Medicine03/01/23 Reason for Visit (unrecogniz ed section and content) ReasonCommentsMedicare Annual Wellness Visit SubsequentConstipationPt has been having issues with constipation he went to ER twice recently pt states he has samples of linzess at home he is going to use--he has also started having dizziness with this as wellReasonOnset DateCommentsMed Haaxsu114Reason CommentsFollow-upAdmitted [facility] 06[facility]24 dx: syncope,suspected cva .hypotension discharged home 06/22/24 no med changesmadeMed RefillGabapentin.meclizine-- [facility] fremontReasonCommentsResultsStress test resultsMed RefillGabapentin-- [facility] fremontReasonOnset DateCommentsMed [id number]d RefillReasonOnset DateCommentsMed [id number]-upRecent hospitalization 08/10/24-08/12/24 at [facility] dx: CVA discharged home advised to stop ASAMed RefillGabapentin--kroger fremontDysphagiaResultsBoth MRI'sReasonComments Follow-upPAIN MEDChest PainFOLLOW UPReasonCommentsAllergic ReactionReasonOnset DateCommentsMed Uisgmg0209/20/2024ReasonCommentsER Follow-upWent to er due to weakness 09/14/24 [facility]ReasonCommentsFollow-upPain medDysphagiaMed RefillHydrocodone--kroger fremontobservation follow upPt was admitted to [facility] 10/06/24 for observation for leg weakness they discharged him home 10/07/24 nomed changes they advised pt he may need an MRIdiscuss changing referralsPt was referred to neuro through [facility] and [facility] he does not want touse any [facility] providers he would like new referrals [facility]ReasonOnset DateCommentsNCNS PT Eval today10/16/2024FU 10/19/2024ReasonOnset DateCommentsMed Mbqpap6610/23/2024ReasonOnset DateComments Med Hbebec684ReasonCommentsFollow-up1 yearCoronary Artery Disease HypertensionReasonOnset DateCommentsMed Ftregd544ReasonOnset DateComments NEW PATIENT ZZXDJXSV38/03/2024ReasonOnset XrquJjiugpedKeihfhh03/12/2024Reason Onset DateCommentsPT Eval Unmhnzbx37/18/2025Today makes 3rd attempt to be seen. ReasonCommentsDysphagiaSpecialtyDiagnoses / ProceduresReferred By Contact Referred To ContactOtolaryngology Diagnoses Dysphagia, unspecified type Procedures [place] OFFICE/OUTPATIENT NEW HIGH MDM 60 MINUTES Mono Knowles MD [address] [facility] [address] [place] [address] Phone: tel: fax: Norma Jin MD [address] [facility] [address] [place] [address] Phone: tel: fax: Referral IDStatusReasonStart DateExpiration DateVisits RequestedVisits [id number] Specialty Services Required 1ReasonOnset DateCommentsMed Dzsceu6511/09/2024ReasonComments Medicare Annual Wellness Visit SubsequentMed RefillHydrocodone-- [facility] ReasonOnset DateCommentsMed Jpmjjx7201/08/2025ReasonCommentsMed RefillHydrocodone, meclizine, colchicine--[facility]roger fremontFollow-upPain/controlled medHypertension ResultsLabs 11/2024ReasonOnset DateCommentsMed Wkmrzm3102/14/2025ReasonComments Follow-upPain/controlled medReasonOnset DateCommentsMed Blyoxw0503/13/2025Reason Onset DateCommentsMed Ehgijz7904/11/2025ReasonOnset DateCommentsMed Refill 05/09/2025ReasonOnset DateCommentsMed Exxasl2005/11/2025ReasonOnset DateComments HIM05/26/2025ReasonOnset DateCommentsMed Scfdut5906/15/2025ReasonCommentsFollow-up Admitted to [facility] 05/26/25 dx: TIA,HTN discharged from [facility] discharged home 06/15/25BronchitisReasonCommentsPainReasonOnset DateCommentsMed Xfxtox3307/18/2025 FOR RECORDS PERTAINING TO PATIENTS WHO ARE [...] BE BASED ON THE PRIMARY CLINICAL RECORDS. Narrative [facility]. provides no warranty or guarantee of the accuracy or completeness of information in this document.
--- NOTE | 2025-08-21 11:45 | SWNOTE1 ---
SW received a call from the ED doctor and SW to speak with pt to check on any discharge needs.
--- NOTE | 2025-08-21 12:16 | ED.NAVMDI1 ---
HPI - Nausea/Vomiting/Diarrhea General Chief complaint: Nausea/Vomiting/Diarrhea Stated complaint: VOMITING Time Seen by Provider: 08/21/25 08:33 Source: patient Mode of arrival: ambulance Limitations: no limitations History of Present Illness HPI Narrative: The patient is very well-known to us he is a very poor historian presented to us after he was evaluated by his primary care yesterday for concern of nausea and thrush in his mouth the patient denies any other concerns Related Data Home Medications ?Medication ?Instructions ?Recorded ?Confirmed allopurinol 100 mg tablet 100 mg PO DAILY 06/21/24 08/21/25 gabapentin 300 mg capsule 300 mg PO BEDTIME 06/21/24 08/21/25 simvastatin 40 mg tablet 40 mg PO BEDTIME 06/21/24 08/21/25 clopidogrel 75 mg tablet 75 mg PO DAILY 05/26/25 08/21/25 amlodipine 2.5 mg tablet 2.5 mg PO DAILY 06/27/25 08/21/25 meclizine 25 mg tablet 25 mg PO TID PRN dizziness 06/27/25 08/21/25 sucralfate 1 gram tablet 1 g PO TID 06/27/25 08/21/25 carvedilol 25 mg tablet 25 mg PO Q12H 08/21/25 08/21/25 colchicine 0.6 mg capsule 0.6 mg PO .MWF 08/21/25 08/21/25 Previous Rx's ?Medication ?Instructions ?Recorded pantoprazole 40 mg tablet,delayed 40 mg PO DAILY #30 tabs 10/24/23 release (Protonix) famotidine 20 mg tablet (Pepcid) 20 mg PO BID #20 tabs 08/21/25 nystatin 100,000 unit/mL oral 400,000 unit (4 mL) PO QID 14 days 08/21/25 suspension #224 mL Allergies Allergy/AdvReac Type Severity Reaction Status Date / Time No Known Drug Allergies Allergy Verified 07/26/25 10:03 Review of Systems ROS Status of ROS 10 or more systems reviewed and unremarkable except as noted in history and below [facility] Medical History Neuropathy ?G62.9 - Polyneuropathy, unspecified (ICD-10) High blood cholesterol ?E78.00 - Pure hypercholesterolemia, unspecified (ICD-10) Gout ?M10.9 - Gout, unspecified (ICD-10) Wilson by, 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, unspecified degree (ICD-10) Stroke ?I63.9 - Cerebral infarction, unspecified (ICD-10) Syncope ?R55 - Syncope and collapse (ICD-10) Seizure disorder ?G40.909 - Epilepsy, unspecified, not intractable, without status epilepticus (ICD-10) CAD (coronary artery disease) ?I25.10 - Atherosclerotic heart disease of [place] coronary artery without angina pectoris (ICD-10) Surgical History H/O heart artery stent ?Z95.5 - Presence of coronary angioplasty implant and graft (ICD-10) Social History Within the past year, how often did you have a drink containing alcohol: never Within the past year, how often did you have six or more drinks on one occasion: never Score interpretation: A score less than 4 is consistent with normal alcohol consumption. Smoking status: Former smoker Non-prescribed substance use: denies use Previous occupational history: Retired from [employer]. Highest level of school completed/degree received: high school graduate Do you want help with school or training: No Are you now , , , , never or living with a partner: In a typical week, how many times do you talk on the telephone with family, friends, or neighbors: 3 or more times per week How often do you get together with friends or relatives: 3 or more times per week How often do you attend holiness or pentecostal services: 1-3 times per year Do you belong to any clubs or organizations such as holiness groups unions, fraternal or athletic groups, or school groups: no Total score: 1 Score interpretation: A score of less than or equal to 1 indicates the most socially isolated. Little interest or pleasure in doing things: not at all Feeling down, depressed, or hopeless: not at all Feel stressed/tense/nervous/anxious/difficulty sleeping: not at all Due to disability, difficulty making decisions: No Do you think of yourself as: straight/heterosexual Gender Identity: male Exam Narrative Exam Narrative: Nurses notes and vital signs reviewed and patient is not hypoxic. General: Well-appearing and in no apparent distress. Skin: Warm, dry, no pallor noted. No rash. Head: Normocephalic, atraumatic. Neck: Supple, non-tender. Eye: Pupils are equal, round and EOMI. No scleral icterus. Ears, Nose, Mouth, and Throat: Guerline thrush in his mouth mostly the tongue no compromise of the airway , no swelling , some irritation in the back of the throat as well ,no posterior oropharynx erythema, uvula is mid-line Cardiovascular: Regular Rate and Rhythm without murmur, gallop or rub. Respiratory: No accessory muscle use or respiratory distress. Lungs are clear to auscultation, no wheezing, rales or rhonchi Chest Wall: no tenderness Back: No midline thoracic or lumbar vertebral tenderness. No CVA tenderness Musculoskeletal: normal ROM, no calf or popliteal tenderness, no lower extremity edema/swelling GI: Abdomen is soft, non-distended. Normal bowel sounds. No masses appreciated. No tenderness to palpation. No rebound, guarding, or rigidity noted. Neurological: A&O x4. No cranial nerve dysfunction observed. No truncal ataxia Constitutional Vital Signs, click to edit/add: Last Vital Signs Temp 98.1 F 08/21/25 08:40 Pulse 63 08/21/25 12:20 Resp 19 08/21/25 12:20 BP 126/88 08/21/25 12:30 Pulse Ox 96 08/21/25 12:20 O2 Del Method Room Air 08/21/25 09:06 Course Vital Signs Vital signs: Vital Signs Pulse Rate 69 08/21/25 08:30 Respiratory Rate 17 08/21/25 08:30 Pulse Oximetry 96 08/21/25 08:30 Temperature 98.1 F 08/21/25 08:40 Pulse Rate 63 08/21/25 12:20 Respiratory Rate 19 08/21/25 12:20 Blood Pressure 126/88 08/21/25 12:30 Pulse Oximetry 96 08/21/25 12:20 Oxygen Delivery Method Room Air 08/21/25 09:06 MDM - Nausea/Vomiting/Diarrhea MDM Narrative Medical decision making narrative: Eventually the patient significant other present to the bedside she did explain that the patient is here just for evaluation of thrush Patient was able to eat here with no difficulty he is taking prednisone and clotrimazole and right now he had both of them stopped started on nystatin could the prednisone could be causing the patient to have mild thrush and he does not have any shortness of breath or any reason to get the prednisone at the moment The patient was discharged with instruction that he need to monitor his symptoms in case of any continuing symptoms he is to come back to the ER Upon arrival initially the patient kept saying that he is weak and I did evaluate him multiple time before with similar presentation which is not an acute complaint, the patient himself did not have any nausea or vomiting in the ER he was tolerating p.o. with no difficulty The social media project manager did present to the bedside to speak with the family and they are okay with the plan of being discharged with nystatin swish Instruction to come back in case of new symptoms CBC and chemistry showed no acute pathology The patient to follow-up with the primary care within 2 to 3 days and to come back to the ER in case of any worsening of the current symptoms or any new symptoms or concerns Lab Data Labs: Lab Results 08/21/25 Range/Units 08:48 WBC 10.0 (4.0-11.0) 10^3/uL RBC 4.24 L (4.70-6.10) 10^6/uL Hgb 12.7 L (14.0-18.0) g/dL Hct 38.6 L (42.0-54.0) % MCV 91.0 (80.0-94.0) fL MCH 30.0 (25.9-34.0) pg MCHC 32.9 (29.9-35.2) g/dL RDW 13.0 (11.0-15.0) % Plt Count 207 (150-450) 10^3/uL MPV 9.8 (9.5-13.5) fL Neut % (Auto) 67.8 (43.0-75.0) % Lymph % (Auto) 23.2 (20.5-60.0) % [place] % (Auto) 7.2 (1.7-12.0) % Eos % (Auto) 0.8 L (0.9-7.0) % Baso % (Auto) 0.3 (0.2-2.0) % Neut # (Auto) 6.8 H (1.4-6.5) 10^3/uL Lymph # (Auto) 2.3 (1.2-3.8) 10^3/uL [place] # (Auto) 0.7 (0.3-0.8) 10^3/uL Eos # (Auto) 0.1 (0.0-0.7) 10^3/uL Baso # (Auto) 0.0 (0.0-0.1) 10^3/uL Abs Immat Gran (auto) 0.07 H (0.00-0.03) 10^3/uL Imm/Tot Granulo (auto) 0.7 H (0.0-0.5) % PT 10.9 (9.0-11.6) sec INR 1.04 Sodium 146 H (136-145) mmol/L Potassium 4.0 (3.5-5.1) mmol/L Chloride 110 H (98-107) mmol/L Carbon Dioxide 27.5 (21.0-32.0) mmol/L Anion Gap 12.5 BUN 21.0 H (7.0-18.0) mg/dL Creatinine 1.50 H (0.70-1.30) mg/dL Est GFR ( Amer) 55 L (>=60 mL/min/1.73m^2) Est GFR (Non-Af Amer) 45 L (>=60 mL/min/1.73m^2) BUN/Creatinine Ratio 14.0 Glucose 98 (74-106) mg/dL Calcium 8.3 L (8.5-10.1) mg/dL Total Bilirubin 0.3 (0.2-1.0) mg/dL AST 17 (15-37) U/L ALT 28 (16-63) U/L Alkaline Phosphatase 95 (46-116) U/L Troponin I High Sens 6.9 (4.0-76.1) pg/mL Total Protein 6.8 (6.4-8.2) g/dL Albumin 3.3 L (3.4-5.0) g/dL Globulin 3.5 g/dL Albumin/Globulin Ratio 0.9 Discharge Plan Discharge Chief Complaint: Nausea/Vomiting/Diarrhea Clinical Impression: Guerline infection, oral Patient Disposition: Home, Self-Care Time of Disposition Decision: 12:18 Condition: Good Prescriptions / Home Meds: New nystatin 100,000 unit/mL suspension 400,000 unit PO QID 14 Days Qty: 224 0RF Rx Instructions: Swish in the mouth and retain as long as possible for several minutes before swallowing famotidine [Pepcid] 20 mg tablet 20 mg PO BID Qty: 20 0RF Discontinued clotrimazole 10 mg alexis 10 mg mucous membrane .5xday prednisone 20 mg tablet 20 mg PO DAILY Rx Instructions: For 5 days total, 4 pills left in bottle. celecoxib 200 mg capsule 200 mg PO DAILY No Action pantoprazole [Protonix] 40 mg tablet,delayed release (DR/EC) 40 mg PO DAILY Qty: 30 0RF clopidogrel 75 mg tablet 75 mg PO DAILY amlodipine 2.5 mg tablet 2.5 mg PO DAILY meclizine 25 mg tablet 25 mg PO TID PRN (Reason: dizziness) sucralfate 1 gram tablet 1 g PO TID carvedilol 25 mg tablet 25 mg PO Q12H colchicine 0.6 mg capsule 0.6 mg PO .MWF gabapentin 300 mg capsule 300 mg PO BEDTIME simvastatin 40 mg tablet 40 mg PO BEDTIME allopurinol 100 mg tablet 100 mg PO DAILY Print Language: Moldovan Instructions: Oral Candidiasis (ED) Referrals: KELLEN BALBUENA [Primary Care Provider, Internal Medicine] - 1 week Discharge Date/Time: 08/21/25 12:51
[2025-08-21] MEDS: NYSTATIN 500,000 UNIT/5 ML ORAL.SUSP 500000 UNIT PO (12:33)
== END 2025-08-21 12:51 | disposition home or self-care (01) ==
PROVIDERS: Emergency Provider Emergency Medicine; PCP Internal Medicine
DX: B37.0 Candidal stomatitis (principal)
CPT/HCPCS: 36415; 71045; 80053; 84484; 85025; 85610; 93005; 99283; 99284

== ENCOUNTER 2025-08-22 10:43 | Inpatient (IN) | payer MEDICARE, MEDICAID, SELFPAY ==
[2025-08-22] VITALS (23 sets, daily range): BP systolic 128–151; BP diastolic 75–88; PULSE 72–82; TEMP 36.6–37.2; O2SAT 91–96; BMI 29.1; BMI 31.6
--- NOTE | 2025-08-22 10:51 | XR_ITS ---
The [address] [address] Patient Name: TAJ RING MRN: [id number] date: 1945 Sex: M Assigned Patient Location: ER Current Patient Location: ER Accession/Order Number: [id number] Exam Date: 08/22/2025 10:58 Report Date: 08/22/2025 11:35 At the request of: WILMAN JAIMES MD Procedure: XR chest 1V PORTABLE AP ERECT CHEST 1042 hours CLINICAL HISTORY: Weakness . History of fall. COMPARISON: 06/21/2025 and 06/27/2025 There is continued shallow inspiration and slight elevation of the right hemidiaphragm. The lateral aspect of the right hemidiaphragm and costophrenic angle are indistinct. Pleural and/or parenchymal change at that site is not excluded without a lateral view. The lungs are otherwise clear. No pneumothorax is identified. The cardiac and mediastinal contours are similar. There is partially imaged cervical fusion hardware. No obvious displaced fractures are seen. XR/XR chest 1V IMPRESSION: POSSIBLE RIGHT BASILAR PLEURAL-PARENCHYMAL CHANGE. CORRELATION IS RECOMMENDED WITH FOLLOW-UP 2 VIEW EXAM, WARRANTED. Impression dictated by: Marylou Ray M.D. 08/22/2025 11:35 AM Dictation Location: [place] [address] Electronically authenticated by: [id number] Y Date: 08/22/2025 11:35
--- NOTE | 2025-08-22 10:51 | CT_ITS ---
The [address] [address] Patient Name: TAJ RING MRN: [id number] date: 1945 Sex: M Assigned Patient Location: ER Current Patient Location: ED.[facility] Accession/Order Number: [id number] Exam Date: 08/22/2025 11:30 Report Date: 08/22/2025 12:01 At the request of: WILMAN JAIMES MD Procedure: CT head/brain wo con CT BRAIN WITHOUT CONTRAST: CLINICAL HISTORY: Weakness and multiple falls COMPARISON: 06/27/2025 TECHNIQUE: Contiguous axial unenhanced images were obtained through the brain. This CT exam was performed using one or more following dose reduction techniques: Automated exposure control, adjustment of the mA and/or kV according to patient size, or use of iterative reconstruction technique. FINDINGS: There is generalized atrophy. The ventricles are stable in size and position. Chronic microvascular changes are again noted. There are no additional areas of abnormal attenuation. There is no hemorrhage, mass effect or extra-axial collections. The calvarium is intact. The imaged paranasal sinuses and mastoid air cells are clear. There is carotid siphon plaque. CT/CT head/brain wo con IMPRESSION: ATROPHY AND SMALL VESSEL ISCHEMIC CHANGES. NO ACUTE INTRACRANIAL TRAUMA. Impression dictated by: Marylou Ray M.D. 08/22/2025 12:01 PM Dictation Location: [place] [address] Electronically authenticated by: [id number] Y Date: 08/22/2025 12:01
--- NOTE | 2025-08-22 10:51 | ECG_ITS ---
The [facility] Test Date: 2025-08-22 Pat Name: TAJ RING Department: Room: - Gender: Male Unit Aide Tech: : 1945 Requested By: [id number] Order Number: [id number] Reading MD: EUNICE FULTON M.D. Measurements Intervals Edwards Rate: 77 P: 43 NH: 180 QRS: -61 QRSD: 98 T: 61 QT: 376 QTc: 407 Interpretive Statements 1100 Sinus rhythm 3114 Cannot rule out anterior myocardial infarction, age undetermined 7200 Abnormal left axis deviation 8102 Low QRS voltage in chest leads 9150 abnormal ECG Compared to ECG 08/21/2025 08:30:43 Left-axis deviation now present Left anterior fascicular block no longer present Myocardial infarct finding still present Electronically Signed On 08-22-2025 14:20:53 EST by EUNICE FULTON M.D.
--- NOTE | 2025-08-22 11:08 | ED.GENADUL1 ---
HPI HPI - General Adult General Chief complaint: Weakness Stated complaint: FALL WEAKNESS Time Seen by Provider: 08/22/25 10:45 Source: patient Mode of arrival: ambulance History of Present Illness HPI narrative: 79-year-old male presents to the emergency department by squad for generalized weakness. He was here yesterday and was diagnosed with thrush. Apparently since then he has fallen twice. He states he did not hurt himself. He does not have any pain. He is a poor historian. According to the electronic health record he was seen by social welfare research worker yesterday. Related Data Home Medications ?Medication ?Instructions ?Recorded ?Confirmed allopurinol 100 mg tablet 100 mg PO DAILY 06/21/24 08/22/25 gabapentin 300 mg capsule 300 mg PO BEDTIME 06/21/24 08/22/25 simvastatin 40 mg tablet 40 mg PO BEDTIME 06/21/24 08/22/25 clopidogrel 75 mg tablet 75 mg PO DAILY 05/26/25 08/22/25 amlodipine 2.5 mg tablet 2.5 mg PO DAILY 06/27/25 08/22/25 meclizine 25 mg tablet 25 mg PO TID PRN dizziness 06/27/25 08/22/25 sucralfate 1 gram tablet 1 g PO TID 06/27/25 08/22/25 carvedilol 25 mg tablet 25 mg PO Q12H 08/21/25 08/22/25 colchicine 0.6 mg capsule 0.6 mg PO .MWF 08/21/25 08/22/25 Previous Rx's ?Medication ?Instructions ?Recorded pantoprazole 40 mg tablet,delayed 40 mg PO DAILY #30 tabs 10/24/23 release (Protonix) famotidine 20 mg tablet (Pepcid) 20 mg PO BID #20 tabs 08/21/25 nystatin 100,000 unit/mL oral 400,000 unit (4 mL) PO QID 14 days 08/21/25 suspension #224 mL Allergies Allergy/AdvReac Type Severity Reaction Status Date / Time No Known Drug Allergies Allergy Verified 08/22/25 10:49 Opioid HPI Opioid Management Most Recent Opioid Data: Last Pain Scale 1 08/21/25, 09:03 Last Pain Intensity 4 07/27/25, 10:29 Last ORT Total Score 0 07/26/25, 13:46 Last ORT Risk Category Low Risk 07/26/25, 13:46 Review of Systems ROS Narrative A ten point review of systems is negative except as noted above. 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, unspecified degree (ICD-10) Stroke ?I63.9 - Cerebral infarction, unspecified (ICD-10) Syncope ?R55 - Syncope and collapse (ICD-10) Seizure disorder ?G40.909 - Epilepsy, unspecified, not intractable, without status epilepticus (ICD-10) CAD (coronary artery disease) ?I25.10 - Atherosclerotic heart disease of [place] coronary artery without angina pectoris (ICD-10) Surgical History H/O heart artery stent ?Z95.5 - Presence of coronary angioplasty implant and graft (ICD-10) Social History Within the past year, how often did you have a drink containing alcohol: never Within the past year, how often did you have six or more drinks on one occasion: never Score interpretation: A score less than 4 is consistent with normal alcohol consumption. Smoking status: Former smoker Non-prescribed substance use: denies use Previous occupational history: Retired from [email or web address]. Highest level of school completed/degree received: high school graduate Do you want help with school or training: No Are you now , , , , never or living with a partner: In a typical week, how many times do you talk on the telephone with family, friends, or neighbors: 3 or more times per week How often do you get together with friends or relatives: 3 or more times per week How often do you attend advent or orthodoxy services: 1-3 times per year Do you belong to any clubs or organizations such as advent groups unions, fraternal or athletic groups, or school groups: no Total score: 1 Score interpretation: A score of less than or equal to 1 indicates the most socially isolated. Little interest or pleasure in doing things: not at all Feeling down, depressed, or hopeless: not at all Feel stressed/tense/nervous/anxious/difficulty sleeping: not at all Due to disability, difficulty making decisions: No Do you think of yourself as: straight/heterosexual Gender Identity: male Exam Narrative Exam Narrative: Nurses note and vital signs reviewed General:The patient appears in no acute distress. He appears generally weak Skin:Warm, dry, no pallor noted.There is no rash noted. Head:Normocephalic, atraumatic Eye: Normal conjunctiva, no drainage Ears, Nose, Mouth, and Throat: oral mucosa is somewhat dry. Nares patent. Cardiovascular:Regular Rate and Rhythm Respiratory:Patient is in no distress, no accessory muscle use, lungs are clear to auscultation, no wheezing, rales or rhonchi Back:non-tender GI: Soft and nontender Musculoskeletal: The patient has no evidence of calf tenderness, no pitting edema, symmetrical pulses noted bilaterally Neurological:A&O x4, normal speech Psychiatric:Cooperative Constitutional Vital Signs, click to edit/add: Last Vital Signs Temp 98.1 F 08/22/25 10:46 Pulse 76 08/22/25 11:00 Resp 21 H 08/22/25 11:00 BP 130/75 08/22/25 10:46 Pulse Ox 93 L 08/22/25 10:46 O2 Del Method Room Air 08/22/25 10:46 Course Vital Signs Vital signs: Vital Signs Temperature 98.1 F 08/22/25 10:46 Pulse Rate 76 08/22/25 10:46 Respiratory Rate 20 08/22/25 10:46 Blood Pressure 130/75 08/22/25 10:46 Pulse Oximetry 93 L 08/22/25 10:46 Oxygen Delivery Method Room Air 08/22/25 10:46 Temperature 98.1 F 08/22/25 10:46 Pulse Rate 76 08/22/25 11:00 Respiratory Rate 21 H 08/22/25 11:00 Blood Pressure 130/75 08/22/25 10:46 Pulse Oximetry 93 L 08/22/25 10:46 Oxygen Delivery Method Room Air 12/10/25 10:46 Medical Decision Making MDM Narrative Medical decision making narrative: Blood work is nonspecific. Chest x-ray is suggestive of pneumonia. Blood cultures were obtained and he was given IV antibiotics and he is being admitted. Treatment diagnosis and disposition were discussed with the patient. I have already spoken to social service worker. Differential Diagnosis Differential Diagnosis: Pneumonia, UTI, dehydration Lab Data Lab results reviewed: Yes I reviewed the patient's lab results Labs: Lab Results 08/22/25 08/22/25 Range/Units 11:12 11:30 WBC 8.3 (4.0-11.0) 10^3/uL RBC 4.69 L (4.70-6.10) 10^6/uL Hgb 13.7 L (14.0-18.0) g/dL Hct 42.7 (42.0-54.0) % MCV 91.0 (80.0-94.0) fL MCH 29.2 (25.9-34.0) pg MCHC 32.1 (29.9-35.2) g/dL RDW 13.2 (11.0-15.0) % Plt Count 192 (150-450) 10^3/uL MPV 9.5 (9.5-13.5) fL Neut % (Auto) 71.2 (43.0-75.0) % Lymph % (Auto) 17.3 L (20.5-60.0) % [place] % (Auto) 7.9 (1.7-12.0) % Eos % (Auto) 2.6 (0.9-7.0) % Baso % (Auto) 0.4 (0.2-2.0) % Neut # (Auto) 5.9 (1.4-6.5) 10^3/uL Lymph # (Auto) 1.4 (1.2-3.8) 10^3/uL [place] # (Auto) 0.7 (0.3-0.8) 10^3/uL Eos # (Auto) 0.2 (0.0-0.7) 10^3/uL Baso # (Auto) 0.0 (0.0-0.1) 10^3/uL Abs Immat Gran (auto) 0.05 H (0.00-0.03) 10^3/uL Imm/Tot Granulo (auto) 0.6 H (0.0-0.5) % Sodium 147 H (136-145) mmol/L Potassium 4.0 (3.5-5.1) mmol/L Chloride 110 H (98-107) mmol/L Carbon Dioxide 29.0 (21.0-32.0) mmol/L Anion Gap 12.0 BUN 17.0 (7.0-18.0) mg/dL Creatinine 1.44 H (0.70-1.30) mg/dL Est GFR ( Amer) 58 L (>=60 mL/min/1.73m^2) Est GFR (Non-Af Amer) 47 L (>=60 mL/min/1.73m^2) BUN/Creatinine Ratio 11.8 Glucose 91 (74-106) mg/dL Lactate 0.9 (0.4-2.0) mmol/L Calcium 8.4 L (8.5-10.1) mg/dL Troponin I High Sens 7.1 (4.0-76.1) pg/mL Urine Color Lt. yellow (YELLOW) Urine Clarity Clear (CLEAR) Urine pH 6.0 (5.0-9.0) Ur Specific [place] 1.020 (1.005-1.025) Urine Protein Negative (NEG/TRACE) mg/dL Urine Glucose (UA) Negative (NEGATIVE) mg/dL Urine Ketones Negative (NEGATIVE) mg/dL Urine Occult Blood Negative (NEGATIVE) Urine Nitrite Negative (NEGATIVE) Urine Bilirubin Negative (NEGATIVE) Urine Urobilinogen 0.2 (0.2-1.0) EU/dL Ur Leukocyte Esterase Negative (NEGATIVE) Urine RBC 0-2 (0-2) #/HPF Urine WBC 0-2 A (NONE SEEN) #/HPF Ur Squamous Epith Cells Rare (NONE/RARE) #/LPF Urine Crystals None seen (None Seen) #/HPF Urine Bacteria Trace A (NONE SEEN) #/HPF Urine Casts None seen (NONE SEEN) #/LPF Urine Mucus None seen (NONE SEEN) Influenza Type A Ag Negative Influenza Type B Ag Negative SARS-CoV-2 Ag (CV2AG) Negative (NEGATIVE) Imaging Data Chest x-ray: Radiologist's impression: ITS Impressions Chest X-Ray 08/22/25 10:51 IMPRESSION: POSSIBLE RIGHT BASILAR PLEURAL-PARENCHYMAL CHANGE. CORRELATION IS RECOMMENDED WITH FOLLOW-UP 2 VIEW EXAM, WARRANTED. Impression dictated by: Marylou Ray M.D. 08/22/2025 11:35 AM Dictation Location: [facility] Electronically authenticated by: [id number] Y Date: 08/22/2025 11:[address] 08/22/25 10:51 IMPRESSION: ATROPHY AND SMALL VESSEL ISCHEMIC CHANGES. NO ACUTE INTRACRANIAL TRAUMA. Impression dictated by: Marylou Ray M.D. 08/22/2025 12:01 PM Dictation Location: [facility] Electronically authenticated by: [id number] Y Date: 08/22/2025 12:01 ECG Data Attestation: I personally reviewed and interpreted this ECG as follows: (EKG on my interpretation shows normal sinus rhythm with rate of 77 and no acute change.) Discharge Plan Discharge Chief Complaint: Weakness Clinical Impression: Generalized weakness, Pneumonia Patient Disposition: Home, Self-Care Time of Disposition Decision: 12:53 Condition: Good Mode of Transportation: Private Vehicle Prescriptions / Home Meds: No Action pantoprazole [Protonix] 40 mg tablet,delayed release (DR/EC) 40 mg PO DAILY Qty: 30 0RF clopidogrel 75 mg tablet 75 mg PO DAILY amlodipine 2.5 mg tablet 2.5 mg PO DAILY meclizine 25 mg tablet 25 mg PO TID PRN (Reason: dizziness) sucralfate 1 gram tablet 1 g PO TID carvedilol 25 mg tablet 25 mg PO Q12H colchicine 0.6 mg capsule 0.6 mg PO .MWF nystatin 100,000 unit/mL suspension 400,000 unit PO QID 14 Days Qty: 224 0RF Rx Instructions: Swish in the mouth and retain as long as possible for several minutes before swallowing famotidine [Pepcid] 20 mg tablet 20 mg PO BID Qty: 20 0RF gabapentin 300 mg capsule 300 mg PO BEDTIME simvastatin 40 mg tablet 40 mg PO BEDTIME allopurinol 100 mg tablet 100 mg PO DAILY Print Language: Sinhala Instructions: Community Acquired Pneumonia (ED), Weakness (ED) Referrals: KELLEN BALBUENA [Primary Care Provider, Internal Medicine] - 1 week
[2025-08-22 11:29] LABS: Hematocrit 42.7 % (42.0-54.0); Hemoglobin 13.7 g/dL (14.0-18.0); Immature Granulocytes Abs Auto 0.05 10^3/uL (0.00-0.03); Immature Granulocytes Pct Auto 0.6 % (0.0-0.5); Lymphocytes Absolute Auto 1.4 10^3/uL (1.2-3.8); Mean Corpuscular HGB Conc 32.1 g/dL (29.9-35.2); Mean Corpuscular Hemoglobin 29.2 pg (25.9-34.0); Mean Corpuscular Volume 91.0 fL (80.0-94.0); Platelet Count 192 10^3/uL (150-450); Red Blood Count 4.69 10^6/uL (4.70-6.10); White Blood Count 8.3 10^3/uL (4.0-11.0)
[2025-08-22 11:37] LABS: SARS-CoV-2 Ag NEGATIVE (NEGATIVE)
--- NOTE | 2025-08-22 11:40 | SWNOTE1 ---
MAKSIM did receive a call from pt's significant other, Peace. Peace stated he has fallen 3x times today and she had a hard time helping him up. Peace called the EMS and pt is coming here. She asked if pt can go to rehab again. She stated she called the insurance and they will pay for it. MAKSIM advised Peace that once pt arrives nurse and doctor will complete an assessment on patient and determine if he has medical diagnosis to be admitted. Then SW will assist with rehab if pt qualifies to go to rehab. MAKSIM again had a conversation with Peace that pt may need [facility] care. Pt has been in and out of the hospital several times within the past few months. Pt may not be safe at home anymore and can not be cared for at home. Peace did voice to MAKSIM that she does not want that. Peace stated she cares for him. MAKSIM explained to Peace again that she is trying everything she can and has provided good care to pt, but it may not be safe for him or her for pt to be at home. If pt continues to fall, he could be hurt or she could be hurt helping him up. MAKSIM also let her know that at some point his insurance may not pay for skilled care anymore and he may run out of days. His insurance may determine at some point he is at his baseline and does not qualify for skilled care. MAKSIM explained to Peace that she really needs to have a conversation with pt and pt's son about [facility] care or Assisted Living. SW to have this conversation with them as well. MAKSIM has attempted this conversation on previous admissions. MAKSIM did receive call from Dr. Joseph and pt is weak and will be admitted. MAKSIM to call Peace back and discuss placement.
[2025-08-22 11:45] LABS: Glucose Urine UA NEGATIVE (NEGATIVE)
[2025-08-22 11:54] LABS: Anion Gap 12.0; Blood Urea Nitrogen 17.0 mg/dL (7.0-18.0); Calcium 8.4 mg/dL (8.5-10.1); Carbon Dioxide 29.0 mmol/L (21.0-32.0); Chloride 110 mmol/L (98-107); Estimated GFR (African America 58 (>=60 mL/min/1.73m^2); Estimated GFR (Non-African Ame 47 (>=60 mL/min/1.73m^2); Glucose 91 mg/dL (74-106); Potassium 4.0 mmol/L (3.5-5.1); Sodium 147 mmol/L (136-145)
[2025-08-22 12:19] LABS: Cast Seen? NONE SEEN #/LPF (NONE SEEN); Crystals Seen? None Seen #/HPF (None Seen)
[2025-08-22 12:33] LABS: Lactate/Lactic Acid 0.9 mmol/L (0.4-2.0)
[2025-08-22] MEDS: AZITHROMYCIN 500 MG in 0.9 % SODIUM CHLORIDE 250 ML 250 MG IV (12:46)
--- NOTE | 2025-08-22 13:22 | PM.IMHP1 ---
Internal Medicine - H&P: HPI History of Present Illness Chief complaint: FALL WEAKNESS Narrative: This is a 79-year-old male with past medical history of COPD, hypertension, CKD, CAD with stents in place, poor social support with multiple admissions to the hospital as well as to nursing homes, neuropathy, dyslipidemia, gout, seizure, who presents today with weakness and recurrent falls. History was very limited from the patient as he is a poor historian but he is at baseline mental status as of my review from the previous medical records and chart reviewing the patient recent admission status of which was on 07/26/2025. He came to the ED yesterday for oral thrush and he was discharged on clotrimazole and prednisone. However this patient has fallen twice since then as per the ED report. He tells me that he slipped and fell on his right leg however denies any right leg pain right hip pain. He denies any nausea or vomiting or fever or chills or chest pain. Denies any diaphoresis. He is being observed under hospital service for further workup and management Review of Systems ROS Narrative Very poor historian, which is his baseline Status of ROS unobtainable due to medical condition and unobtainable due to mental status [facility] Medical History Neuropathy ?G62.9 - Polyneuropathy, unspecified (ICD-10) High blood cholesterol ?E78.00 - Pure hypercholesterolemia, unspecified (ICD-10) Gout ?M10.9 - Gout, unspecified (ICD-10) [place] by, 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, unspecified degree (ICD-10) Stroke ?I63.9 - Cerebral infarction, unspecified (ICD-10) Syncope ?R55 - Syncope and collapse (ICD-10) Seizure disorder ?G40.909 - Epilepsy, unspecified, not intractable, without status epilepticus (ICD-10) CAD (coronary artery disease) ?I25.10 - Atherosclerotic heart disease of [place] coronary artery without angina pectoris (ICD-10) Surgical History H/O heart artery stent ?Z95.5 - Presence of coronary angioplasty implant and graft (ICD-10) Social History Within the past year, how often did you have a drink containing alcohol: never Within the past year, how often did you have six or more drinks on one occasion: never Score interpretation: A score less than 4 is consistent with normal alcohol consumption. Smoking status: Former smoker Non-prescribed substance use: denies use Previous occupational history: Retired from [employer]. Highest level of school completed/degree received: high school graduate Do you want help with school or training: No Are you now , , , , never or living with a partner: In a typical week, how many times do you talk on the telephone with family, friends, or neighbors: 3 or more times per week How often do you get together with friends or relatives: 3 or more times per week How often do you attend restoration or alevism services: 1-3 times per year Do you belong to any clubs or organizations such as restoration groups unions, [facility] or athletic groups, or school groups: no Total score: 1 Score interpretation: A score of less than or equal to 1 indicates the most socially isolated. Little interest or pleasure in doing things: not at all Feeling down, depressed, or hopeless: not at all Feel stressed/tense/nervous/anxious/difficulty sleeping: not at all Due to disability, difficulty making decisions: No Do you think of yourself as: straight/heterosexual Gender Identity: male Meds Home Medications and Allergies Home Medications ?Medication ?Instructions ?Recorded ?Confirmed ?Type pantoprazole 40 mg tablet,delayed 40 mg PO DAILY #30 tabs 10/24/23 08/22/25 Rx release (Protonix) allopurinol 100 mg tablet 100 mg PO DAILY 06/21/24 08/22/25 History gabapentin 300 mg capsule 300 mg PO BEDTIME 06/21/24 08/22/25 History simvastatin 40 mg tablet 40 mg PO BEDTIME 06/21/24 08/22/25 History clopidogrel 75 mg tablet 75 mg PO DAILY 05/26/25 08/22/25 History amlodipine 2.5 mg tablet 2.5 mg PO DAILY 06/27/25 08/22/25 History meclizine 25 mg tablet 25 mg PO TID PRN dizziness 06/27/25 08/22/25 History sucralfate 1 gram tablet 1 g PO TID 06/27/25 08/22/25 History carvedilol 25 mg tablet 25 mg PO Q12H 08/21/25 08/22/25 History colchicine 0.6 mg capsule 0.6 mg PO .MWF 08/21/25 08/22/25 History famotidine 20 mg tablet (Pepcid) 20 mg PO BID #20 tabs 08/21/25 08/22/25 Rx nystatin 100,000 unit/mL oral 400,000 unit (4 mL) PO QID 14 days 08/21/25 08/22/25 Rx suspension #224 mL alprazolam 1 mg tablet 1 mg PO BID 08/22/25 08/22/25 History celecoxib 200 mg capsule 200 mg PO .QD 08/22/25 08/22/25 History clotrimazole 10 mg alexis 10 mg mucous membrane .5 X DAY 08/22/25 08/22/25 History meloxicam 7.5 mg tablet 7.5 mg PO .QD 08/22/25 08/22/25 History zolpidem 10 mg tablet 10 mg PO .QHS 08/22/25 08/22/25 History Allergies Allergy/AdvReac Type Severity Reaction Status Date / Time No Known Drug Allergies Allergy Verified 08/22/25 10:49 Exam Narrative Exam Narrative: General: Awake alert, appears comfortable Oral cavity: Oral thrush which were scraped off by tongue depressor HEENT: head atraumatic, normocephalic, dry mucous membranes, seborrheic dermatitis on his forehead, White psoriasis plaques on his mitchell Neck: supple no masses, no lymphadenopathy, no JVD CVS: regular rate and rhythm, no murmurs or gallops Respiratory: No wheezes or crackles, good bilateral air entry, saturating 96% on RA GI: soft, nondistended, nontender, positive bowel sounds Extremity: moves all extremities, no restrictions of movements, no calf tenderness, no edema. Neuro: AOx3, CN II-VII intact. Moves all extremities in all planes of motion. He is at baseline speech and neurologic status. Generalized weakness but no focal deficits Skin: No noted lesions other than what is specified above Constitutional Vital Signs, click to edit/add: Last Vital Signs Temp 98.1 F 08/22/25 10:46 Pulse 76 08/22/25 13:10 Resp 21 H 08/22/25 11:00 BP 146/75 H 08/22/25 12:50 Pulse Ox 95 08/22/25 13:10 O2 Del Method Room Air 08/22/25 10:46 Internal Medicine - H&P: Reslt Labs Labs: Short CBC 08/22/25 Range/Units 11:12 WBC 8.3 (4.0-11.0) 10^3/uL Hgb 13.7 L (14.0-18.0) g/dL Hct 42.7 (42.0-54.0) % Plt Count 192 (150-450) 10^3/uL BMP 08/22/25 11:12 Sodium 147 H Potassium 4.0 Chloride 110 H Carbon Dioxide 29.0 BUN 17.0 Creatinine 1.44 H Glucose 91 Calcium 8.4 L Urine 08/22/25 Range/Units 11:30 Urine Color Lt. yellow (YELLOW) Urine Clarity Clear (CLEAR) Urine pH 6.0 (5.0-9.0) Ur Specific [place] 1.020 (1.005-1.025) Urine Protein Negative (NEG/TRACE) mg/dL Urine Glucose (UA) Negative (NEGATIVE) mg/dL Urinary Catheter Management Urinary Catheter Management Straight: Cath placed during this visit: yes Urethral indwelling: No Insertion date: 08/22/25 Insertion time: 11:30 Assessment and Plan Assessment and Plan (1) Generalized weakness: (2) Pneumonia: (3) Guerline infection, oral: Plan Recurrent falls in the setting Generalized weakness and debility needing higher level of care No syncope Community acquired pneumonia CKD, hypernatremia with Dehydration and poor oral intake -Admit pt to medical floor with telemetry for observation -wash worker following, pt will benefit from placement -Obtain PT/OT eval -Start IV ceftriaxone 1 gram q24 hours and IV doxycycline 100 mg BID -Start Diflucan 150 mg IV daily for his oral thrush -Start Nystatin QID for his oral thrush -Start LR 100 ml/hr for a total of 1 liter -Discussed the plan with the pt and his girlfriend and son, they are in agreement with the plan
--- NOTE | 2025-08-22 13:24 | XR_ITS ---
The [address] [address] Patient Name: TAJ RING MRN: [id number] date: 1945 Sex: M Assigned Patient Location: ER Current Patient Location: ER Accession/Order Number: [id number] Exam Date: 08/22/2025 13:40 Report Date: 08/22/2025 14:06 At the request of: MANISH RUBALCAVA MD Procedure: XR hip RT 2V w/ pelvis CLINICAL DATA: Patient fell and has pain at the right knee and hip. RIGHT KNEE - 2 views COMPARISON: None AP and lateral views were obtained. There is osteopenia. There is a partially imaged plate at the femoral shaft. No acute fracture or dislocation is noted. There is no disproportionate joint space narrowing. There is minor marginal spurring. There is chondrocalcinosis at the menisci. No knee effusion or soft tissue swelling is seen. XR/XR hip RT 2V w/ pelvis IMPRESSION: OSTEOPENIA AND DEGENERATIVE CHANGES. NO ACUTE BONY INJURY. RIGHT HIP WITH AP PELVIS - 3 views COMPARISON: 05/27/2025 AP view of the pelvis as well as AP and frog-lateral views of the right hip were obtained. The bony structures are osteopenic. There is a lateral plate with multiple screws along the imaged right femur. There are screws that traverse the femoral neck. The plate is not imaged in its entirety. The visualized hardware shows no interval change. There is chronic fracture deformity in the subtrochanteric region of the femur. No acute fracture or dislocation is identified. The hip joint spaces are maintained. There is minor marginal spurring at the superior acetabula. The SI joints show minor sclerosis. There is mild degenerative change involving the lower imaged lumbar spine. No soft tissue abnormalities are present. IMPRESSION: OLD FEMUR FRACTURE WITH FIXATION. NO DEFINITE ACUTE BONY INJURY. Impression dictated by: Marylou Ray M.D. 08/22/2025 2:06 PM Dictation Location: [facility] Electronically authenticated by: [id number] Y Date: 08/22/2025 14:06
--- NOTE | 2025-08-22 13:24 | XR_ITS ---
The [address] [address] Patient Name: TAJ RING MRN: [id number] date: 1945 Sex: M Assigned Patient Location: ER Current Patient Location: ER Accession/Order Number: [id number] Exam Date: 08/22/2025 13:40 Report Date: 08/22/2025 14:06 At the request of: MANISH RUBALCAVA MD Procedure: XR hip RT 2V w/ pelvis CLINICAL DATA: Patient fell and has pain at the right knee and hip. RIGHT KNEE - 2 views COMPARISON: None AP and lateral views were obtained. There is osteopenia. There is a partially imaged plate at the femoral shaft. No acute fracture or dislocation is noted. There is no disproportionate joint space narrowing. There is minor marginal spurring. There is chondrocalcinosis at the menisci. No knee effusion or soft tissue swelling is seen. XR/XR knee RT 2V IMPRESSION: OSTEOPENIA AND DEGENERATIVE CHANGES. NO ACUTE BONY INJURY. RIGHT HIP WITH AP PELVIS - 3 views COMPARISON: 05/27/2025 AP view of the pelvis as well as AP and frog-lateral views of the right hip were obtained. The bony structures are osteopenic. There is a lateral plate with multiple screws along the imaged right femur. There are screws that traverse the femoral neck. The plate is not imaged in its entirety. The visualized hardware shows no interval change. There is chronic fracture deformity in the subtrochanteric region of the femur. No acute fracture or dislocation is identified. The hip joint spaces are maintained. There is minor marginal spurring at the superior acetabula. The SI joints show minor sclerosis. There is mild degenerative change involving the lower imaged lumbar spine. No soft tissue abnormalities are present. IMPRESSION: OLD FEMUR FRACTURE WITH FIXATION. NO DEFINITE ACUTE BONY INJURY. Impression dictated by: Marylou Ray M.D. 08/22/2025 2:06 PM Dictation Location: [facility] Electronically authenticated by: [id number] Y Date: 08/22/2025 14:06
--- NOTE | 2025-08-22 13:37 | SWNOTE1 ---
MAKSIM called and spoke to Peace. Pt is being admitted. MAKSIM asked pt where she is thinking they would like pt to go to for rehab. She stated she would like him to go to [facility]. MAKSIM asked if his son was aware? She stated no. SW to call pt's son. MAKSIM did express to Peace again that pt may need termite control service representative care after he is done with rehab. She stated she thinks he needs to be at the facility for 3-4 months. MAKSIM did let her know that it is very unlikely that his insurance will approve him for 3-4 months. SW let her know once the [facility] medicare cuts him, he will then transition to alf under his medicaid. Peace then asked if he could return home after a few months. MAKSIM explained that the facility would have to determine if he was safe to return home. They would have to assess if he could care for himself safely at home as well. Peace stated she does care for him. MAKSIM expressed to Peace that she has done a great job of caring for him, but he is declining and has had several visits within the last few months. Peace did tell MAKSIM earlier that he fell 3x today. MAKSIM let Peace know that he could fall and cause her to fall and they could break their hips or something worse could happen. MAKSIM expressed to Peace that they have to consider what is safe for both of them. MAKSIM to work on getting patient to [facility]. Peace is on her way here. MAKSIM called pt's son Bubba and had to leave voicemail. MAKSIM reached out to Ness at [facility] in regards to referral. Ness will review once referral is sent.
--- NOTE | 2025-08-22 14:11 | SWNOTE1 ---
SW called and spoke with pt's son, Bubba. Pt's son is in agreement with pt going to [facility] as well. SW spoke with him about snf placement for pt as well. Pt's son has voiced this to [facility] and pt as well. He voiced they are not very receptive to it. Pt concerned about not being around people and Peace is concerned about not seeing him everyday. SW to continue to discuss with pt and Peace about snf care.
--- NOTE | 2025-08-22 15:14 | SWNOTE1 ---
MAKSIM stopped in and spoke with pt, Peace, and a friend. Pt is in agreement with [facility]. Peace stated they have a friend over there. MAKSIM had a conversation with pt about the possibility of staying at a facility long term care administrator. Pt stated he will have to talk to Peace and his son about this. Pt did ask about Medicaid/social security and if he would have money. SW did explain that this will go to the facility and a patient will have $50 (give or take) in spending money. Pt and Peace did ask MAKSIM what physician came in to [facility] to find out. At this time no further concerns. MAKSIM highly encouraged pt to work with therapy if they come in today to see him. MAKSIM encouraged pt to do everything he can and not to refuse therapy.
--- NOTE | 2025-08-22 15:34 | SWNOTE1 ---
Ness at [facility] did get back to and the house doctor is Dr. Dan, he is not from [facility]. Ness did send the referral on to be reviewed. She is checking on bed status.
--- NOTE | 2025-08-22 15:42 | SWNOTE1 ---
Since [facility] is unsure of bed status, MAKSIM spoke with pt and family about 2nd choice. MAKSIM did explain to pt, Peace, and pt's son on the phone that [facility] may not have an opening at this time. Pt may need to do rehab at another facility and if he agrees to longitudinal float operator after rehab, then they can assist with getting him in to [facility]. Pt's son did recommend that the next choice would be [facility]. Pt and Peace in agreement. SW to reach out to [facility].
--- NOTE | 2025-08-22 16:05 | SWNOTE1 ---
SW has not heard back from [facility]. SW did send referral to [facility] as well in case they have beds open. Referral sent to [facility] and [facility]. Referral included face sheet, ED note, H&P, provider notes, case management report,, nursing notes, diagnostic imaging, med list, and OT notes.
[2025-08-22] MEDS: CARVEDILOL 25 MG TABLET PO ×2 (16:40→21:43)
[2025-08-22] MEDS: FAMOTIDINE 20 MG TABLET PO (21:43)
[2025-08-22] MEDS: GABAPENTIN 300 MG CAPSULE PO (21:43)
[2025-08-22] MEDS: NYSTATIN 500,000 UNIT/5 ML ORAL.SUSP 400000 UNIT PO (21:43)
[2025-08-22] MEDS: HEPARIN SODIUM (PORCINE) 5,000 UNIT/ML VIAL 5000 UNIT SUBQ (21:43)
[2025-08-22] MEDS: SUCRALFATE 1 GM TABLET PO (21:43)
[2025-08-22] MEDS: ATORVASTATIN CALCIUM 20 MG TABLET PO (21:43)
[2025-08-22] MEDS: ACETAMINOPHEN 325 MG TABLET 650 MG PO (23:42)
[2025-08-22] MEDS: ZOLPIDEM TARTRATE 5 MG TABLET 10 MG PO (23:42)
[2025-08-23] VITALS (7 sets, daily range): BP systolic 120–142; BP diastolic 71–93; PULSE 70–77; TEMP 36.4–37.1; O2SAT 90–94
[2025-08-23 05:37] LABS: Hematocrit 38.0 % (42.0-54.0); Hemoglobin 12.5 g/dL (14.0-18.0); Immature Granulocytes Abs Auto 0.05 10^3/uL (0.00-0.03); Immature Granulocytes Pct Auto 0.7 % (0.0-0.5); Lymphocytes Absolute Auto 2.1 10^3/uL (1.2-3.8); Mean Corpuscular HGB Conc 32.9 g/dL (29.9-35.2); Mean Corpuscular Hemoglobin 29.6 pg (25.9-34.0); Mean Corpuscular Volume 90.0 fL (80.0-94.0); Platelet Count 170 10^3/uL (150-450); Red Blood Count 4.22 10^6/uL (4.70-6.10); White Blood Count 7.2 10^3/uL (4.0-11.0)
[2025-08-23] MEDS: SUCRALFATE 1 GM TABLET PO ×3 (05:52→21:58)
[2025-08-23] MEDS: NYSTATIN 500,000 UNIT/5 ML ORAL.SUSP 400000 UNIT PO ×4 (05:52→22:00)
[2025-08-23] MEDS: PANTOPRAZOLE SODIUM 40 MG TABLET.DR PO (05:52)
[2025-08-23 06:02] LABS: Alanine Aminotransferase 20 U/L (16-63); Albumin Globulin Ratio 0.9; Albumin Level 3.0 g/dL (3.4-5.0); Alkaline Phosphatase 82 U/L (46-116); Anion Gap 9.7; Aspartate Amino Transferase 15 U/L (15-37); Blood Urea Nitrogen 14.0 mg/dL (7.0-18.0); Calcium 8.3 mg/dL (8.5-10.1); Carbon Dioxide 27.9 mmol/L (21.0-32.0); Chloride 106 mmol/L (98-107); Estimated GFR (African America >60 (>=60 mL/min/1.73m^2); Estimated GFR (Non-African Ame >60 (>=60 mL/min/1.73m^2); Globulin 3.2 g/dL; Glucose 89 mg/dL (74-106); Magnesium 1.7 mg/dL (1.8-2.4); Potassium 3.6 mmol/L (3.5-5.1); Sodium 140 mmol/L (136-145); Total Protein 6.2 g/dL (6.4-8.2)
[2025-08-23] MEDS: AMLODIPINE BESYLATE 5 MG TABLET 2.5 MG PO (09:25)
[2025-08-23] MEDS: CARVEDILOL 25 MG TABLET PO ×2 (09:25→21:59)
[2025-08-23] MEDS: ALLOPURINOL 100 MG TABLET PO (09:25)
[2025-08-23] MEDS: FAMOTIDINE 20 MG TABLET PO ×2 (09:26→21:58)
[2025-08-23] MEDS: CLOPIDOGREL BISULFATE 75 MG TABLET PO (09:26)
[2025-08-23] MEDS: HEPARIN SODIUM (PORCINE) 5,000 UNIT/ML VIAL 5000 UNIT SUBQ ×2 (09:26→22:01)
--- NOTE | 2025-08-23 09:40 | MR_ITS ---
The [address] [address] Patient Name: TAJ RING MRN: [id number] date: 1945 Sex: M Assigned Patient Location: MS Current Patient Location: MS Accession/Order Number: [id number] Exam Date: 08/23/2025 10:15 Report Date: 08/23/2025 11:58 At the request of: MANISH RUBALCAVA MD Procedure: MR head/brain wo con EXAMINATION: MRI OF THE BRAIN WITHOUT CONTRAST CLINICAL HISTORY: Frequent falls and weakness COMPARISON: CT 08/22/2025 and MRI 05/28/2025 TECHNIQUE: Multiecho, multiplanar imaging of the brain was performed without enhancement. There is generalized atrophy. The ventricles are normal in size and position. Similar increased T2 and FLAIR signal is again visualized within the periventricular and subcortical white matter compatible with chronic microvascular disease. There are no developing areas of abnormal signal intensity within the supra- or infratentorial brain. No restricted diffusion is identified to suggest a recent ischemic event. There are no extra-axial collections or mass effect. The visualized paranasal sinuses and mastoid air cells are clear. MR/MR head/brain wo con IMPRESSION: ATROPHY AND CHRONIC MICROVASCULAR DISEASE. NO ACUTE INTRACRANIAL FINDINGS. Impression dictated by: Marylou Ray M.D. 08/23/2025 11:58 AM Dictation Location: [place] [address] Electronically authenticated by: [id number] Y Date: 08/23/2025 11:58
--- NOTE | 2025-08-23 09:40 | CM.NOTE ---
Rounds made with Dr. Marquez, discussed plan of care with pt. Pt will be changed to inpatient status, pt will have MRI today. Continue treatment as ordered.
--- NOTE | 2025-08-23 09:43 | SWNOTE1 ---
MAKSIM had message from Maribeth at [facility] and Ness at [facility] and neither facility has an opening for rehab at this time. MAKSIM to speak with pt and family.
--- NOTE | 2025-08-23 10:12 | SWNOTE1 ---
SW spoke to pt about [facility] and [facility] being full at this time. Pt was sitting up in chair at this time. He voiced he feels frustrated and feels his body is not working together to move. SW provided support and encouragement. Pt voiced he is ready to get up and walk with walker. SW let him know that once therapy comes in room he can try to do that. SW asked if pt knew where else he would like to go for rehab. Pt unsure. SW offered to call his son to speak with him. Pt in agreement and voiced to let him know. OT came in room at this time to work with pt.
[2025-08-23] MEDS: MAGNESIUM SULFATE IN WATER 2 GM/50 ML PREMIX IV (10:15)
--- NOTE | 2025-08-23 10:18 | SWNOTE1 ---
MAKSIM called pt's son, Bubba, and let him know that [facility] and [facility] are full at this time. MAKSIM advised the other 2 facilities in [place] are [facility] and [facility]. Pt's son does not want either. SW let him know outside of [place] is [facility], [facility], [facility], [facility], and can go further out than that as well. MAKSIM did review the star ratings with pt's son for [facility], [facility], [facility], and [facility]. He voiced pt has been at [facility] in past and he did well there. He would like SW to check the [facility]. SW to check and let pt's son know.
[2025-08-23] MEDS: 0.9 % SODIUM CHLORIDE 250 ML 10 ML IV (10:23)
--- NOTE | 2025-08-23 10:42 | SWNOTE1 ---
Medicare Outpatient Observation Notice reviewed and discussed with patient and pt's significant other, Peace on 08/22/25. Patient and Peace verbalized understanding and pt had Peace sign the form. Original given to patient and copy placed in patient?s chart. This form was completed on 08/22/25. Please see scanned copy in pt's chart.
--- NOTE | 2025-08-23 10:47 | PM.IMPN1 ---
Progress Note: A&P Assessment and Plan (1) Generalized weakness: (2) Pneumonia: (3) Guerline infection, oral: Plan (1) Generalized weakness: (2) Pneumonia: (3) Guerline infection, oral: Plan Recurrent falls in the setting Generalized weakness and debility needing higher level of care No syncope Community acquired pneumonia CKD, hypernatremia with Dehydration and poor oral intake -Admit pt to medical floor with telemetry for observation -supervisor park workers following, pt will benefit from placement -Obtain PT/OT eval -Start IV ceftriaxone 1 gram q24 hours and IV doxycycline 100 mg BID -Start Diflucan 150 mg IV daily for his oral thrush -Start Nystatin QID for his oral thrush -Start LR 100 ml/hr for a total of 1 liter -Discussed the plan with the pt and his girlfriend and son, they are in agreement with the plan 08/23/2025 patient continues to be on Diflucan 100 mg IV for another 2 days with improvement in his thrush and symptoms. He continues to be on ceftriaxone IV 1 g every 24 hours, and doxycycline IV 100 mg every 12 hours. I added Magic mouthwash to his regimen as well along with the nystatin. Given his issues with speech I am not concerned that this is any form of aphasia, however given risk factors I will order MRI brain without contrast. I think the patient is doing well with eating as per nursing team so there is no need for DIGITAL CARTOGRAPHIC TECHNICIAN evaluation there is no reason as the patient did not demonstrate any sign of aspiration. Continue to work with PT/OT recommending SNF. Discussed the plan with him in details. Answered all his questions Internal Medicine - PN: Subj Subjective Interval history: Pt seen and examined at bedside. No events overnight. He states that he cannot talk right because of the pain he has in his throat and mouth. He tells me that he feels better than yesterday. Also tells me that he cannot swallow or eat however as per nursing patient had a full breakfast with amaya and it. Patient is more awake alert and he is more talkative and interactive with me today. His vitals were stable. Exam Narrative Exam Narrative: General: Awake alert, appears comfortable Oral cavity: No oral thrush appreciated on my exam today HEENT: head atraumatic, normocephalic, dry mucous membranes, seborrheic dermatitis on his forehead, White psoriasis plaques on his mitchell Neck: supple no masses, no lymphadenopathy, no JVD CVS: regular rate and rhythm, no murmurs or gallops Respiratory: No wheezes or crackles, good bilateral air entry, saturating 96% on RA GI: soft, nondistended, nontender, positive bowel sounds Extremity: moves all extremities, no restrictions of movements, no calf tenderness, no edema. Neuro: AOx3, CN II-VII intact. Moves all extremities in all planes of motion. No evidence of aphasia or patient having trouble finding words.. Generalized weakness but no focal deficits Skin: No noted lesions other than what is specified above Constitutional Vital Signs, click to edit/add: Last Vital Signs Temp 97.5 F L 08/23/25 07:50 Pulse 70 08/23/25 08:04 Resp 18 08/23/25 08:04 BP 135/93 H 08/23/25 07:50 Pulse Ox 91 L 08/23/25 07:50 O2 Del Method Room Air 08/23/25 07:50 Internal Medicine - PN: Obj Da Labs Labs: Laboratory Results - last 24 hr 08/22/25 08/22/25 08/23/25 11:12 11:30 04:45 WBC 8.3 7.2 RBC 4.69 L 4.22 L Hgb 13.7 L 12.5 L Hct 42.7 38.0 L MCV 91.0 90.0 MCH 29.2 29.6 MCHC 32.1 32.9 RDW 13.2 13.0 Plt Count 192 170 MPV 9.5 9.6 Neut % (Auto) 71.2 58.2 Lymph % (Auto) 17.3 L 28.7 [place] % (Auto) 7.9 9.4 Eos % (Auto) 2.6 2.6 Baso % (Auto) 0.4 0.4 Neut # (Auto) 5.9 4.2 Lymph # (Auto) 1.4 2.1 [place] # (Auto) 0.7 0.7 Eos # (Auto) 0.2 0.2 Baso # (Auto) 0.0 0.0 Abs Immat Gran (auto) 0.05 H 0.05 H Imm/Tot Granulo (auto) 0.6 H 0.7 H Sodium 147 H 140 Potassium 4.0 3.6 Chloride 110 H 106 Carbon Dioxide 29.0 27.9 Anion Gap 12.0 9.7 BUN 17.0 14.0 Creatinine 1.44 H 1.07 Est GFR ( Amer) 58 L >60 Est GFR (Non-Af Amer) 47 L >60 BUN/Creatinine Ratio 11.8 13.1 Glucose 91 89 Lactate 0.9 Calcium 8.4 L 8.3 L Magnesium 1.7 L Total Bilirubin 0.5 AST 15 ALT 20 Alkaline Phosphatase 82 Troponin I High Sens 7.1 Total Protein 6.2 L Albumin 3.0 L Globulin 3.2 Albumin/Globulin Ratio 0.9 Urine Color Lt. yellow Urine Clarity Clear Urine pH 6.0 Ur Specific [place] 1.020 Urine Protein Negative Urine Glucose (UA) Negative Urine Ketones Negative Urine Occult Blood Negative Urine Nitrite Negative Urine Bilirubin Negative Urine Urobilinogen 0.2 Ur Leukocyte Esterase Negative Urine RBC 0-2 Urine WBC 0-2 A Ur Squamous Epith Cells Rare Urine Crystals None seen Urine Bacteria Trace A Urine Casts None seen Urine Mucus None seen Influenza Type A Ag Negative Influenza Type B Ag Negative SARS-CoV-2 Ag (CV2AG) Negative Urinary Catheter Management Urinary Catheter Management Straight: Cath placed during this visit: yes Urethral indwelling: No Insertion date: 08/22/25 Insertion time: 11:30
--- NOTE | 2025-08-23 10:59 | PC.NURSE ---
Left uniit for MRI 1040
--- NOTE | 2025-08-23 11:05 | SWNOTE1 ---
Referral sent to [facility]. Referral included face sheet, ED note, H&P, provider notes, case management report, nursing notes, diagnostic imaging, med list, and PT/OT notes. Leonides at [facility] stated they are reviewing and checking benefits. They have a bed on the [facility] care side and it is semi private. Pt will be there for rehab, but that is the only bed they have available.
--- NOTE | 2025-08-23 12:09 | CT_ITS ---
[address] [address] Patient Name: TAJ RING MRN: [id number] date: 1945 Sex: M Assigned Patient Location: MS Current Patient Location: MS Accession/Order Number: [id number] Exam Date: 08/23/2025 14:28 Report Date: 08/23/2025 20:34 At the request of: MANISH RUBALCAVA MD Procedure: CT cervical spine wo con CT CERVICAL SPINE WITHOUT CONTRAST WITH 3D RECONSTRUCTIONS: CLINICAL HISTORY: recent fall COMPARISON: CT cervical spine 06/29/2025 TECHNIQUE: Spiral axial unenhanced images were obtained through the cervical spine. Sagittal, coronal and 3D volume-rendered reconstructions were also reviewed. This CT exam was performed using one or more following dose reduction techniques: Automated exposure control, adjustment of the mA and/or kV according to patient size, or use of iterative reconstruction technique. FINDINGS: No fracture or malalignment. Prior ACDF with interbody fusion C4-C5. Hardware is intact. [id number] degenerative changes elsewhere. Prevertebral soft tissues unremarkable. Chronic changes within lung apices. CT/CT cervical spine wo con IMPRESSION: NO CERVICAL SPINE FRACTURE Impression dictated by: Toño Boyer M.D. 08/23/2025 8:34 PM Dictation Location: [place] [address] Electronically authenticated by: [id number] Y Date: 08/23/2025 20:34
[2025-08-23] MEDS: DOXYCYCLINE HYCLATE 100 MG in 0.9 % SODIUM CHLORIDE 100 ML IV (12:17)
--- NOTE | 2025-08-23 12:41 | SWNOTE1 ---
MAKSIM let pt and pt's son know that the [facility] does have an opening, but pt will be on the intermediate teacher care side and have to share a room. MAKSIM advised he will get therapy and be there for rehab, but that is the only room they have available. Pt and son in agreement with the [facility] and that pt will share a room.
--- NOTE | 2025-08-23 13:20 | SWNOTE1 ---
MAKSIM called pt's significant other, Peace, and updated her about the discharge plans. Peace is alright with pt going to [facility]. She plans on pt getting stronger and returning home. MAKSIM did express to Peace again that they really need to discuss plans after rehab and really assess if pt is safe to be at home. Peace did state she cooks, cleans, and does his laundry. MAKSIM again encouraged Peace to discuss extermination supervisor with pt and family once he is done with rehab, for pt's safety and her own safety.
--- NOTE | 2025-08-23 13:43 | SWNOTE1 ---
MAKSIM faxed physician note from today, PT/OT from today, and diagnostic imaging from today to Leon[facility] hern[facility] [place] [facility] for precert.
--- NOTE | 2025-08-23 14:15 | CM.NOTE ---
Important Message From medicare discussed with pt, pt verbalizes understanding and signs paper. Original given to pt and copy placed on pt's chart.
[2025-08-23] MEDS: GABAPENTIN 300 MG CAPSULE PO (21:59)
[2025-08-23] MEDS: ATORVASTATIN CALCIUM 20 MG TABLET PO (21:59)
[2025-08-23] MEDS: ALPRAZOLAM 1 MG TABLET PO (21:59)
[2025-08-23] MEDS: ACETAMINOPHEN 325 MG TABLET 650 MG PO (21:59)
[2025-08-24] MEDS: DOXYCYCLINE HYCLATE 100 MG in 0.9 % SODIUM CHLORIDE 100 ML IV ×2 (01:22→12:30)
[2025-08-24 03:25] VITALS: BP 127/78; PULSE 73; TEMP 36.3; O2SAT 90
[2025-08-24 05:39] LABS: Hematocrit 38.4 % (42.0-54.0); Hemoglobin 12.5 g/dL (14.0-18.0); Immature Granulocytes Abs Auto 0.06 10^3/uL (0.00-0.03); Immature Granulocytes Pct Auto 0.9 % (0.0-0.5); Lymphocytes Absolute Auto 2.2 10^3/uL (1.2-3.8); Mean Corpuscular HGB Conc 32.6 g/dL (29.9-35.2); Mean Corpuscular Hemoglobin 29.1 pg (25.9-34.0); Mean Corpuscular Volume 89.3 fL (80.0-94.0); Platelet Count 201 10^3/uL (150-450); Red Blood Count 4.30 10^6/uL (4.70-6.10); White Blood Count 6.8 10^3/uL (4.0-11.0)
[2025-08-24 06:12] LABS: Alanine Aminotransferase 20 U/L (16-63); Albumin Globulin Ratio 0.9; Albumin Level 3.0 g/dL (3.4-5.0); Alkaline Phosphatase 84 U/L (46-116); Anion Gap 10.1; Aspartate Amino Transferase 14 U/L (15-37); Blood Urea Nitrogen 16.0 mg/dL (7.0-18.0); Calcium 8.4 mg/dL (8.5-10.1); Carbon Dioxide 27.5 mmol/L (21.0-32.0); Chloride 107 mmol/L (98-107); Estimated GFR (African America >60 (>=60 mL/min/1.73m^2); Estimated GFR (Non-African Ame 52 (>=60 mL/min/1.73m^2); Globulin 3.4 g/dL; Glucose 98 mg/dL (74-106); Magnesium 2.0 mg/dL (1.8-2.4); Potassium 3.6 mmol/L (3.5-5.1); Sodium 141 mmol/L (136-145); Total Protein 6.4 g/dL (6.4-8.2)
[2025-08-24] MEDS: SUCRALFATE 1 GM TABLET PO ×2 (06:28→13:33)
[2025-08-24] MEDS: PANTOPRAZOLE SODIUM 40 MG TABLET.DR PO (06:28)
[2025-08-24] MEDS: NYSTATIN 500,000 UNIT/5 ML ORAL.SUSP 400000 UNIT PO ×2 (06:28→12:29)
[2025-08-24 07:26] VITALS: BP 124/79; PULSE 67; TEMP 36.5; O2SAT 91
[2025-08-24] MEDS: ALPRAZOLAM 1 MG TABLET PO (09:22)
[2025-08-24] MEDS: AMLODIPINE BESYLATE 5 MG TABLET 2.5 MG PO (09:22)
[2025-08-24] MEDS: CARVEDILOL 25 MG TABLET PO (09:22)
[2025-08-24] MEDS: FAMOTIDINE 20 MG TABLET PO (09:23)
[2025-08-24] MEDS: COLCHICINE 0.6 MG TABLET PO (09:23)
[2025-08-24] MEDS: CLOPIDOGREL BISULFATE 75 MG TABLET PO (09:23)
[2025-08-24] MEDS: ACETAMINOPHEN 325 MG TABLET 650 MG PO (09:23)
[2025-08-24] MEDS: CELECOXIB 100 MG CAPSULE 200 MG PO (09:23)
[2025-08-24] MEDS: HEPARIN SODIUM (PORCINE) 5,000 UNIT/ML VIAL 5000 UNIT SUBQ (09:23)
[2025-08-24] MEDS: ALLOPURINOL 100 MG TABLET PO (09:23)
--- NOTE | 2025-08-24 09:30 | CM.NOTE ---
Rounds made with Dr. Marquez, pt c/o difficulty with speech this AM and weakness. No discharge today, Dr. Marquez will reach out to pt's contact for update on plan of care.
--- NOTE | 2025-08-24 10:15 | SWNOTE1 ---
SW received an email from Leon[facility] and pt is approved to go to [facility]. MAKSIM let CM know.
--- NOTE | 2025-08-24 10:32 | CT_ITS ---
The [address] [address] Patient Name: TAJ RING MRN: [id number] date: 1945 Sex: M Assigned Patient Location: MS Current Patient Location: MS Accession/Order Number: [id number] Exam Date: 08/24/2025 10:45 Report Date: 08/24/2025 11:01 At the request of: MANISH RUBALCAVA MD Procedure: CT head/brain wo con CT BRAIN WITHOUT CONTRAST: CLINICAL HISTORY: change in mental status COMPARISON: CT 08/22/2025 and MRI 08/23/2025 TECHNIQUE: Contiguous axial unenhanced images were obtained through the brain. This CT exam was performed using one or more following dose reduction techniques: Automated exposure control, adjustment of the mA and/or kV according to patient size, or use of iterative reconstruction technique. FINDINGS: There is cortical atrophy. The ventricles are normal in size and position. Chronic microvascular changes are again noted. There are no definite new areas of abnormal attenuation. There is no hemorrhage, mass effect or extra-axial collections. The imaged paranasal sinuses and mastoid air cells are clear. CT/CT head/brain wo con IMPRESSION: ATROPHY AND CHRONIC MICROVASCULAR CHANGES. NO ACUTE INTRACRANIAL ABNORMALITY. Impression dictated by: Marylou Ray M.D. 08/24/2025 11:01 AM Dictation Location: [facility] Electronically authenticated by: [id number] Y Date: 08/24/2025 11:01
--- NOTE | 2025-08-24 10:35 | P.IMPN_ITS ---
Progress Note: A&P Assessment and Plan (1) Generalized weakness: (2) Pneumonia: (3) Guerline infection, oral: Plan Recurrent falls in the setting Generalized weakness and debility needing higher level of care No syncope Community acquired pneumonia CKD, hypernatremia with Dehydration and poor oral intake CVA ruled out Waxing and Waning delirium -Admit pt to medical floor with telemetry for observation -nursing support worker following, pt will benefit from placement -Obtain PT/OT eval -Start IV ceftriaxone 1 gram q24 hours and IV doxycycline 100 mg BID -Start Diflucan 150 mg IV daily for his oral thrush -Start Nystatin QID for his oral thrush -Start LR 100 ml/hr for a total of 1 liter -Discussed the plan with the pt and his girlfriend and son, they are in agreement with the plan 08/23/2025 patient continues to be on Diflucan 100 mg IV for another 2 days with improvement in his thrush and symptoms. He continues to be on ceftriaxone IV 1 g every 24 hours, and doxycycline IV 100 mg every 12 hours. I added Magic mouthwash to his regimen as well along with the nystatin. Given his issues with speech I am not concerned that this is any form of aphasia, however given risk factors I will order MRI brain without contrast. I think the patient is doing well with eating as per nursing team so there is no need for SHANK TAPER evaluation there is no reason as the patient did not demonstrate any sign of aspiration. Continue to work with PT/OT recommending SNF. Discussed the plan with him in details. Answered all his questions 08/24/2025 patient appears a lot more confused compared to yesterday. I was told by the nursing team that the patient's mental status waxes and wanes during his hospitalization and he does have periods of being emotional and tearful. That being said, I did. The CT head without contrast today. His MRI brain without contrast yesterday was done and did not show any stroke. He does not have any focal weakness or deficits on my exam. Continues to be on IV ceftriaxone, IV doxycycline as well as an IV Diflucan last dose tomorrow. He was approved to go to SNF which I will discharge him there tomorrow after this workup is done today and will improve his mental status hopefully by tomorrow. His UA was negative on admission as well. I did lower Xanax 0.5 mg p.o. twice daily instead of 4 mg p.o. twice daily that would help with his mentation as well. Internal Medicine - PN: Subj Subjective Interval history: Pt seen and examined at bedside. No events overnight. He is emotional today and crying through my encounter. He is alert and oriented x 3 however appears to be somewhat different compared to yesterday. Very anxious Exam Narrative Exam Narrative: General: Awake alert, emotional in tears today. Anxious. Oral cavity: No oral thrush appreciated on my exam today HEENT: head atraumatic, normocephalic, dry mucous membranes, seborrheic dermatitis on his forehead, White psoriasis plaques on his mitchell Neck: supple no masses, no lymphadenopathy, no JVD CVS: regular rate and rhythm, no murmurs or gallops Respiratory: No wheezes or crackles, good bilateral air entry, saturating 96% on RA GI: soft, nondistended, nontender, positive bowel sounds Extremity: moves all extremities, no restrictions of movements, no calf tenderness, no edema. Neuro: AOx3, CN II-VII intact. Moves all extremities in all planes of motion. He does not have trouble finding words or aphasia however he is having difficulty because of the pain in speaking as he mentions to me generalized weakness but no focal deficits Skin: No noted lesions other than what is specified above Constitutional Vital Signs, click to edit/add: Last Vital Signs Temp 97.7 F 08/24/25 07:26 Pulse 67 08/24/25 07:26 Resp 18 08/24/25 07:26 BP 124/79 08/24/25 07:26 Pulse Ox 91 L 08/24/25 07:26 O2 Del Method Room Air 08/24/25 07:26 Internal Medicine - PN: Obj Da Labs Labs: Laboratory Results - last 24 hr 08/24/25 04:42 WBC 6.8 RBC 4.30 L Hgb 12.5 L Hct 38.4 L MCV 89.3 MCH 29.1 MCHC 32.6 RDW 12.9 Plt Count 201 MPV 10.0 Neut % (Auto) 55.2 Lymph % (Auto) 31.9 [place] % (Auto) 8.5 Eos % (Auto) 3.2 Baso % (Auto) 0.3 Neut # (Auto) 3.8 Lymph # (Auto) 2.2 [place] # (Auto) 0.6 Eos # (Auto) 0.2 Baso # (Auto) 0.0 Abs Immat Gran (auto) 0.06 H Imm/Tot Granulo (auto) 0.9 H Sodium 141 Potassium 3.6 Chloride 107 Carbon Dioxide 27.5 Anion Gap 10.1 BUN 16.0 Creatinine 1.33 H Est GFR ( Amer) >60 Est GFR (Non-Af Amer) 52 L BUN/Creatinine Ratio 12.0 Glucose 98 Calcium 8.4 L Magnesium 2.0 Total Bilirubin 0.5 AST 14 L ALT 20 Alkaline Phosphatase 84 Total Protein 6.4 Albumin 3.0 L Globulin 3.4 Albumin/Globulin Ratio 0.9 Urinary Catheter Management Urinary Catheter Management Straight: Cath placed during this visit: yes Urethral indwelling: No Insertion date: 08/22/25 Insertion time: 11:30
--- NOTE | 2025-08-24 10:51 | SWNOTE1 ---
No discharge today for pt. Likely discharge over the weekend to the [facility]. SW updated Leonides at the [facility] and will get packet ready for the weekend.
[2025-08-24 11:00] VITALS: BP 118/69; PULSE 65; TEMP 36.6; O2SAT 94
--- NOTE | 2025-08-24 11:30 | CM.NOTE ---
CRF completed and signed by Dr. Marquez, possible discharge 08/24 or 08/25.
--- NOTE | 2025-08-24 13:28 | SWNOTE1 ---
Pt is stable for discharge today. MAKSIM called and set up trips for 4:30pm. MAKSIM notified [place], pt's nurse, Peace, and pt's son. SW to send orders once complete. MAKSIM took CRF to nurse. MAKSIM completed [facility] online,.
--- NOTE | 2025-08-24 14:11 | P.DS_ITS ---
DS: Providers Provider Date of admission: 08/23/25 09:34 Primary care physician: KELLEN BALBUENA Consults: 08/22/25 13:26 Occupational Therapy Eval and Treat Routine Reason for consultation: placement Physical Therapy Eval and Treat Routine Reason for consultation: placement Anticipated date of discharge: 08/24/25 DS: Diagnosis Discharge Diagnosis (1) Generalized weakness: (2) Pneumonia: (3) Guerline infection, oral: Plan As above DS: Summary Hospital Course Hospital Course: This is a 79-year-old male with past medical history of COPD, hypertension, CKD, CAD with stents in place, poor social support with multiple admissions to the hospital as well as to nursing homes, neuropathy, dyslipidemia, gout, seizure, who presents today with weakness and recurrent falls. History was very limited from the patient as he is a poor historian but he is at baseline mental status as of my review from the previous medical records and chart reviewing the patient recent admission status of which was on 07/26/2025. He came to the ED yesterday for oral thrush and he was discharged on clotrimazole and prednisone. However this patient has fallen twice since then as per the ED report. He tells me that he slipped and fell on his right leg however denies any right leg pain right hip pain. He denies any nausea or vomiting or fever or chills or chest pain. Denies any diaphoresis. He is being observed under hospital service for further workup and management Recurrent falls in the setting Generalized weakness and debility needing higher level of care No syncope Community acquired pneumonia CKD, hypernatremia with Dehydration and poor oral intake CVA ruled out Waxing and Waning delirium -Admit pt to medical floor with telemetry for observation -meat counter worker following, pt will benefit from placement -Obtain PT/OT eval -Start IV ceftriaxone 1 gram q24 hours and IV doxycycline 100 mg BID -Start Diflucan 150 mg IV daily for his oral thrush -Start Nystatin QID for his oral thrush -Start LR 100 ml/hr for a total of 1 liter -Discussed the plan with the pt and his girlfriend and son, they are in agreement with the plan 08/23/2025 patient continues to be on Diflucan 100 mg IV for another 2 days with improvement in his thrush and symptoms. He continues to be on ceftriaxone IV 1 g every 24 hours, and doxycycline IV 100 mg every 12 hours. I added Magic mouthwash to his regimen as well along with the nystatin. Given his issues with speech I am not concerned that this is any form of aphasia, however given risk factors I will order MRI brain without contrast. I think the patient is doing well with eating as per nursing team so there is no need for TOBACCO STEMMER MACHINE evaluation there is no reason as the patient did not demonstrate any sign of aspiration. Continue to work with PT/OT recommending SNF. Discussed the plan with him in details. Answered all his questions 08/24/2025 patient appears a lot more confused compared to yesterday. I was told by the nursing team that the patient's mental status waxes and wanes during his hospitalization and he does have periods of being emotional and tearful. That being said, I did. The CT head without contrast today. His MRI brain without contrast yesterday was done and did not show any stroke. He does not have any focal weakness or deficits on my exam. Continues to be on IV ceftriaxone, IV doxycycline as well as an IV Diflucan last dose tomorrow. He was approved to go to SNF which I will discharge him there tomorrow after this workup is done today and will improve his mental status hopefully by tomorrow. His UA was negative on admission as well. I did lower Xanax 0.5 mg p.o. twice daily instead of 4 mg p.o. twice daily that would help with his mentation as well. Later on, Pt's mentation improved and as expected it was only waxing and wning, pt was telling me that he feels good and he wants to leave today. His CT head wo contrast came back negative for any changes. I will send him on 1 week of fluconazole 100 mg daily PO, and on magic mouthwash and nystatin. I discussed the plan with his girlfriend Peace, she is in agreement with the plan. Status at Discharge Overall status at discharge: patient is back to baseline Time Spent with Patient Time attestation: Total time spent providing and/or coordinating discharge services: Time spent: greater than 30 minutes Exam Constitutional Vital Signs, click to edit/add: Last Vital Signs Temp 97.8 F 08/24/25 11:00 Pulse 65 08/24/25 11:00 Resp 16 08/24/25 11:00 BP 118/69 08/24/25 11:00 Pulse Ox 94 L 08/24/25 11:00 O2 Del Method Room Air 08/24/25 11:00 DS: Data Data Completed and Pending Labs on day of discharge: Labs from last 24 hours 08/24/25 04:42 WBC 6.8 RBC 4.30 L Hgb 12.5 L Hct 38.4 L MCV 89.3 MCH 29.1 MCHC 32.6 RDW 12.9 Plt Count 201 MPV 10.0 Neut % (Auto) 55.2 Lymph % (Auto) 31.9 [place] % (Auto) 8.5 Eos % (Auto) 3.2 Baso % (Auto) 0.3 Neut # (Auto) 3.8 Lymph # (Auto) 2.2 [place] # (Auto) 0.6 Eos # (Auto) 0.2 Baso # (Auto) 0.0 Abs Immat Gran (auto) 0.06 H Imm/Tot Granulo (auto) 0.9 H Sodium 141 Potassium 3.6 Chloride 107 Carbon Dioxide 27.5 Anion Gap 10.1 BUN 16.0 Creatinine 1.33 H Est GFR ( Amer) >60 Est GFR (Non-Af Amer) 52 L BUN/Creatinine Ratio 12.0 Glucose 98 Calcium 8.4 L Magnesium 2.0 Total Bilirubin 0.5 AST 14 L ALT 20 Alkaline Phosphatase 84 Total Protein 6.4 Albumin 3.0 L Globulin 3.4 Albumin/Globulin Ratio 0.9 Discharge Plan Discharge Disposition: Xfer SNF Condition: Good Discharge Medications: New lidocaine HCl 2 % Solution 15 ml PO Q4H PRN (Reason: Sore Throat) Qty: 100 0RF alum-mag hydroxide-simeth [Mag-Al Plus] 200-200-20 mg/5 mL Suspension 30 ml PO Q4H PRN (Reason: Sore Throat) 15 Days Qty: 3000 0RF triamcinolone acetonide 0.1 % cream 1 applic topical TID Qty: 80 0RF fluconazole 100 mg tablet 100 mg PO DAILY 7 Days Qty: 7 0RF Continued pantoprazole [Protonix] 40 mg tablet,delayed release (DR/EC) 40 mg PO DAILY Qty: 30 0RF clopidogrel 75 mg tablet 75 mg PO DAILY amlodipine 2.5 mg tablet 2.5 mg PO DAILY meclizine 25 mg tablet 25 mg PO TID PRN (Reason: dizziness) sucralfate 1 gram tablet 1 g PO TID carvedilol 25 mg tablet 25 mg PO Q12H colchicine 0.6 mg capsule 0.6 mg PO .MWF nystatin 100,000 unit/mL suspension 400,000 unit PO QID 14 Days Qty: 224 0RF Rx Instructions: Swish in the mouth and retain as long as possible for several minutes before swallowing famotidine [Pepcid] 20 mg tablet 20 mg PO BID Qty: 20 0RF gabapentin 300 mg capsule 300 mg PO BEDTIME simvastatin 40 mg tablet 40 mg PO BEDTIME allopurinol 100 mg tablet 100 mg PO DAILY alprazolam 1 mg tablet 1 mg PO BID celecoxib 200 mg capsule 200 mg PO .QD meloxicam 7.5 mg tablet 7.5 mg PO .QD zolpidem 10 mg tablet 10 mg PO .QHS hydrocodone-acetaminophen 10-325 mg tablet 1 tab PO Q6H PRN (Reason: pain) nitroglycerin 0.4 mg tablet, sublingual 0.4 mg sublingual Q5M PRN (Reason: chest pain) Discontinued clotrimazole 10 mg alexis 10 mg mucous membrane .5 X DAY Print Language: Moldovan Spice Mixer/Educational Director Instructions: Discharge to [facility] skilled Forms: Portal Instructions
--- NOTE | 2025-08-24 14:13 | CM.NOTE ---
Spoke with Dr. Dhillon regarding adding Triamcinolone acetonide at discharge for pt's psoriasis, Dr. Dhillon will order.
--- NOTE | 2025-08-24 14:26 | SWNOTE1 ---
SW faxed dc med rec, dc summary, and updated therapy notes to the [facility]. Pt is going skilled to [facility].
[2025-08-24 14:31] VITALS: BP 114/66; PULSE 63; TEMP 36.6; O2SAT 94
--- NOTE | 2025-08-24 14:33 | SWNOTE1 ---
SW called pt's son, Bubba, and let him know time of discharge. SW did encourage pt's son to have a conversation with pt about prison care. Pt's son intends to do this.
== END 2025-08-24 16:30 | DRG 194 ==
LOC: ER 12:55 → MS 14:44
PROVIDERS: Admitting Provider Student in an Organized Health Care Education/Training Program; Emergency Provider Emergency Medicine; PCP Internal Medicine; Visit Provider Student in an Organized Health Care Education/Training Program
DX: J18.9 Pneumonia, unspecified organism (principal); B37.0 Candidal stomatitis; E87.0 Hyperosmolality and hypernatremia; E86.0 Dehydration; I12.9 Hypertensive chronic kidney disease with stage 1 through stage 4 chronic kidney disease, or unspecified chronic kidney disease; N18.9 Chronic kidney disease, unspecified; I25.10 Atherosclerotic heart disease of native coronary artery without angina pectoris; G62.9 Polyneuropathy, unspecified; M10.9 Gout, unspecified; E78.00 Pure hypercholesterolemia, unspecified; R29.6 Repeated falls; Z95.5 Presence of coronary angioplasty implant and graft; Z79.02 Long term (current) use of antithrombotics/antiplatelets; Z79.1 Long term (current) use of non-steroidal anti-inflammatories (NSAID); Z79.899 Other long term (current) drug therapy
CPT/HCPCS: 36415; 70450; 70551; 71045; 72125; 73502; 73560; 76376; 80048; 80053; 81001; 83605; 83735; 84484; 85025; 87040; 87804; 87811; 93005; 96365; 96367; 96372; 97110; 97163; 97165; 97530; 97535; 99285; G0378; J0456; J0696; J1644; J3475

== ENCOUNTER 2025-09-02 13:24 | Inpatient (IN) | payer MEDICARE, MEDICAID, SELFPAY ==
--- OUTSIDE RECORDS SUMMARY | 2025-08-20 09:30 | XMS_ITS | Encounter Summary ---
Author Organization [facility] Address [address] [place] [address] Care Team Providers Care Director Online Marketing Name Role Phone Mono Knowles MD Unavailable [phone] Mono Knowles MD Primary Care Provider [phone] Ruth Johnston LPN Unavailable Reason for Visit * ReasonCommentsFollow-upTB 06/27-06/29 dx: bronchitis, hypoxia discharged to [place] discharged home 07/08/25Went to [facility] ER 07/26/25 dx: weakness discharged to [place] discharged home Pt has upcoming appt with vascular surgeonMark Alcantara--jessica villalobos Encounter Details DateTypeDepartmentCare Team (Latest Contact Info)Zbmdflelvfo05/08/2025 9:30 AM ESTOffice Visit [facility] [address] [facility] [address] [place] [id number] Mono Knowles MD [address] [facility] [address] [place], [place] [id number] Acute glossitis (Primary Dx); Seborrheic dermatitis; Chronic insomnia; Degeneration of intervertebral disc of lumbar region, unspecified whether pain present Social History Tobacco UseTypesPacks/DayYears UsedDateSmoking Tobacco: FormerCigarettesQuit: 09/13/2000Smokeless Tobacco: Never Comments:Quit smoking 10 yea rs ago Alcohol UseStandard Drinks/WeekCommentsNever0 (1 standard drink = 0.6 oz pure alcohol)Caffeine 1-2 cups/bppY6906 Health LiteracyAnswerDate RecordedHow often do you need to have someone help you when you read instructions, pamphlets, or other written material from your doctor or pharmacy?Bglixssvr14/03/2024 Humiliation, Afraid, Rape, and Kick questionnaireAnswerDate RecordedWithin [...] relatives?Once a week06/04/2023How often do you attend yazidism or advent services?More than 4 times per year06/04/2023o you belong to any clubs or organizations such as yazidism groups, unions, fraternal or athletic groups, or school groups?No 06/04/2023How often do you attend meetings of the clubs or organizations you belong to?Never06/04/2023re you , , , , never , or living with a partner?Living with yypeayk7506/04/2023UDIT-CAnswerDate RecordedQ1: How often do you have a [...] heating?Not hard at all06/04/2023HQ-2AnswerDate RecordedPatient Health Questionnaire-2 Yphia376[place] [employer] - Occupational Stress QuestionnaireAnswerDate RecordedDo you feel stress - tense, restless, nervous, or anxious, or unable to sleep at night because yourmind is troubled all the time - these days?To some neovmd1406/04/2023 Exercise Vital SignAnswerDate RecordedOn average, how many [...] steady place to sleep or slept in [facility] (including now)?No06/04/2023Sex and Gender InformationValueDate RecordedSex Assigned at BirthNot on fileLegal FqnLppq7111/25/2022 6:55 PM EDT Gender IdentityNot on fileSexual OrientationNot on filedocumented as of this encounter Last Filed Vital Signs Vital SignReadingTime TakenCommentsBlood Ydzbggqu622/6608/20/2025 9:13 AM EST Flmrz325308/20/2025 9:13 AM ESTTemperature--Respiratory Rate--Oxygen Vsvixayfwo29% 08/20/2025 9:13 AM ESTInhaled Oxygen Concentration--Jpuqfq09.8 kg (198 lb) 08/20/2025 9:13 AM XWOXkqzyb797.6 cm (5' 6 )08/20/2025 9:13 AM ESTBody Mass Index31.9608/20/2025 9:13 AM ESTdocumented in this encounter Progress Notes * Mono Knowles MD - 08/20/2025 9:30 AM EST Images from the original note were not included. HPI Follow-up Additional comments: [facility] 06/27-06/29 dx: bronchitis, hypoxia discharged to [place] discharged home 07/08/25 Went to [facility] ER 07/26/25 dx: weakness discharged to [facility] discharged home Pt has upcoming appt with vascular surgeon Med Refill Additional comments: Lucina--jessica villalobos Last edited by Odalys Villagomez LPN on 08/20/2025 9:19 AM. Subjective Patient ID: Hakeem Escobedo is a 79 y.o. male who presents for Follow-up ([facility] 06/27-06/29 dx: bronchitis, hypoxia discharged to [place] discharged home 07/08/25/Went to [facility] ER 07/26/25 dx: weaknessdischarged to [facility] [place] //Pt has upcoming appt with vascular surgeon) and Med Refill (Lucina--jessica villalobos). Pt has been feeling weak and fatigued Walking with a cane denies any falls since he has been home Home health PT will be coming in next week States he feels like his tongue is sticking and states its hard to talk Has upcoming appt with vascular surgeon he was previously referred to Pt states he has been drinking gatorade Med Refill Current Outpatient Medications on File [...] mouth at bedtime 100 capsule 3 HYDROcodone-acetaminophen ([place]) 10-325 MG tablet Take 1 tablet by [...] needed for chest pain 90 tablet 12 Nutritional Supplements (Ensure High Protein) liquid Take 1 Container by mouth Daily 7110 mL 3 ondansetron (Zofran) 4 MG tablet Take [...] EVENING AND ONCEBEFORE BEDTIME 270 tablet 3 [DISCONTINUED] zolpidem (Ambien) 10 MG tablet Take 1 tablet (10 mg) by mouth at bedtime 30 tablet 0 [DISCONTINUED] ALPRAZolam (Xanax) 1 MG tablet Take 1 tablet (1 mg) by mouth in the morning and 1 tablet (1 mg) before bedtime. 60 tablet 0 No current facility-administered medications on [...] Right leg/hi[ VASECTOMY 1980 Visit Vitals BP 102/66 Pulse 63 Ht 5' 6 Wt 198 lb SpO2 95% BMI 31.96 kg/m?? Smoking Status Former BSA 2.04 m?? Review of Systems Objective Physical Exam Vitals reviewed. HENT: Head: Normocephalic and atraumatic. Right Ear: External ear normal. Left Ear: External ear normal. Ears: Comments: TM's dull bilaterally, canals with mild redness Mouth/Throat: Pharynx: Posterior oropharyngeal erythema present. Eyes: Conjunctiva/sclera: Conjunctivae normal. Cardiovascular: Rate and [...] and all orders for this visit: Acute glossitis - predniSONE (Deltasone) 20 MG tablet; Take 1 tablet (20 mg) by mouth Daily for 5 days - clotrimazole (Mycelex) 10 MG alexis; Take 1 tablet (10 mg) by mouth 5 (five) times a day for 10 days Seborrheic dermatitis Chronic insomnia - zolpidem (Ambien) 10 MG tablet; Take 1 tablet (10 mg) by mouth at bedtime Degeneration of intervertebral disc of lumbar region, unspecified whether pain present Other orders - Follow Up In Family Medicine; Future Follow up with Dr. Mono Knowles in 1 week (on 08/27/2025). documented in this encounter Plan of Treatment Not on file documented as of this encounter Visit Diagnoses Diagnosis Acute glossitis- Primary Seborrheic dermatitis Unspecified seborrheic dermatitis Chronic insomnia Insomnia, unspecified Degeneration of intervertebral disc of lumbar region, unspecified whether pain present documented in this encounter Care Teams Team MemberRelationshipSpecialtyStart DateEnd Date Mono Knowles MD [address] [facility] [address] [place] [address] PCP - Jonathan FLORES09/13/21 Mono Knowles MD [address] [facility] [address] [place] [address] PCP - GeneralInternal Medicine03/01/23 Ruth Johnston LPN [address] [facility] [address] [place] [address] 08/20/25documented as of this encounter
[2025-09-02] VITALS (38 sets, daily range): BP systolic 127–148; BP diastolic 66–99; PULSE 71–89; TEMP 36.5–37; O2SAT 93–97; BMI 30.2; BMI 33.9
--- NOTE | 2025-09-02 13:29 | ECG_ITS ---
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 Measurements Intervals [place] Rate: 74 P: 90 TX: 148 QRS: 90 QRSD: 96 T: 90 QT: 350 QTc: 377 Interpretive Statements 1100 Sinus rhythm 3113 Cannot rule out anterior myocardial infarction, probably old 8102 Low QRS voltage in chest leads 9150 abnormal ECG Compared to ECG 08/22/2025 10:55:00 Left-axis deviation no longer present Myocardial infarct finding still present Electronically Signed On 09-02-2025 13:48:41 EST by EUNICE FULTON M.D.
--- NOTE | 2025-09-02 13:29 | XR_ITS ---
[facility] [place] [id number] Patient Name: TAJ RING MRN: [id number] date: 1945 Sex: M Assigned Patient Location: ER Current Patient Location: ED.MAIN Accession/Order Number: [id number] Exam Date: 09/02/2025 13:45 Report Date: 09/02/2025 14:04 At the request of: WILMAN JAIMES MD Procedure: XR chest 1V Single view chest: CLINICAL HISTORY: SOB COMPARISON: Chest 08/22/2025 FINDINGS: The heart is normal in size. The lungs are clear. The pulmonary vasculature is normal. Mediastinum and hilar regions are unremarkable. No pleural effusions are seen. Visualized bones are intact. XR/XR chest 1V IMPRESSION: NO ACUTE PROCESS. Impression dictated by: Vu Ramirez Jr., D.O. 09/02/2025 2:04 PM Dictation Location: [place] [address] Electronically authenticated by: [id number] Y Date: 09/02/2025 14:04
--- NOTE | 2025-09-02 13:33 | ED.GENADUL1 ---
HPI HPI - General Adult General Chief complaint: Upper Respiratory Infection Stated complaint: CONFUSION Time Seen by Provider: 09/02/25 13:26 Source: patient Mode of arrival: ambulance History of Present Illness HPI narrative: 79-year-old male presents to the emergency department for possible altered mental status. He was sent from [facility]. It is not clear what his changes. Paramedics reported that he seemed to be short of breath and they gave him an aerosol treatment and he seemed to feel improved. The patient is not able to provide history. Initially no family members present. Related Data Home Medications ?Medication ?Instructions ?Recorded ?Confirmed allopurinol 100 mg tablet 100 mg PO DAILY 06/21/24 09/02/25 gabapentin 300 mg capsule 300 mg PO BEDTIME 06/21/24 09/02/25 simvastatin 40 mg tablet 40 mg PO BEDTIME 06/21/24 09/02/25 clopidogrel 75 mg tablet 75 mg PO DAILY 05/26/25 09/02/25 amlodipine 2.5 mg tablet 2.5 mg PO DAILY 06/27/25 09/02/25 meclizine 25 mg tablet 25 mg PO TID PRN dizziness 06/27/25 09/02/25 sucralfate 1 gram tablet 1 g PO TID 06/27/25 09/02/25 carvedilol 25 mg tablet 25 mg PO Q12H 08/21/25 09/02/25 colchicine 0.6 mg capsule 0.6 mg PO .MWF 08/21/25 09/02/25 meloxicam 7.5 mg tablet 7.5 mg PO .QD 08/22/25 09/02/25 zolpidem 10 mg tablet 10 mg PO .QHS 08/22/25 09/02/25 hydrocodone 10 mg-acetaminophen 1 tab PO Q6H PRN pain 08/23/25 09/02/25 325 mg tablet nitroglycerin 0.4 mg sublingual 0.4 mg sublingual Q5M PRN chest 08/23/25 09/02/25 tablet pain Previous Rx's ?Medication ?Instructions ?Recorded pantoprazole 40 mg tablet,delayed 40 mg PO DAILY #30 tabs 10/24/23 release (Protonix) famotidine 20 mg tablet (Pepcid) 20 mg PO BID #20 tabs 08/21/25 alprazolam 0.5 mg tablet 0.5 mg PO BID 2 days #4 tabs 08/24/25 aluminum-mag hydroxide-simethicone 30 ml PO Q4H PRN Sore Throat 15 08/24/25 200 mg-200 mg-20 mg/5 mL oral susp days #3,000 mL (Mag-Al Plus) lidocaine HCl 2 % mucosal solution 15 ml PO Q4H PRN Sore Throat #100 08/24/25 mL triamcinolone acetonide 0.1 % 1 applic topical TID #80 grams 08/24/25 topical cream Allergies Allergy/AdvReac Type Severity Reaction Status Date / Time No Known Drug Allergies Allergy Verified 09/02/25 13:30 Opioid HPI Opioid Management Most Recent Opioid Data: Last Pain Scale 5 08/24/25, 12:40 Last Pain Intensity 5 08/24/25, 12:40 Last ORT Total Score 0 08/22/25, 14:50 Last ORT Risk Category Low Risk 08/22/25, 14:50 Review of Systems ROS Narrative A ten point review of systems is negative except as noted above. 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, unspecified degree (ICD-10) Stroke ?I63.9 - Cerebral infarction, unspecified (ICD-10) Syncope ?R55 - Syncope and collapse (ICD-10) Seizure disorder ?G40.909 - Epilepsy, unspecified, not intractable, without status epilepticus (ICD-10) CAD (coronary artery disease) ?I25.10 - Atherosclerotic heart disease of [place] coronary artery without angina pectoris (ICD-10) Surgical History H/O heart artery stent ?Z95.5 - Presence of coronary angioplasty implant and graft (ICD-10) Social History Within the past year, how often did you have a drink containing alcohol: never Within the past year, how often did you have six or more drinks on one occasion: never Score interpretation: A score less than 4 is consistent with normal alcohol consumption. Smoking status: Former smoker Non-prescribed substance use: denies use Previous occupational history: Retired from [employer]. Highest level of school completed/degree received: high school graduate Do you want help with school or training: No Are you now , , , , never or living with a partner: In a typical week, how many times do you talk on the telephone with family, friends, or neighbors: 3 or more times per week How often do you get together with friends or relatives: 3 or more times per week How often do you attend rastafari or christianity services: 1-3 times per year Do you belong to any clubs or organizations such as rastafari groups unions, fraternal or athletic groups, or school groups: no Total score: 1 Score interpretation: A score of less than or equal to 1 indicates the most socially isolated. Little interest or pleasure in doing things: not at all Feeling down, depressed, or hopeless: not at all Feel stressed/tense/nervous/anxious/difficulty sleeping: not at all Due to disability, difficulty making decisions: No Do you think of yourself as: straight/heterosexual Gender Identity: male Exam Narrative Exam Narrative: Nurses note and vital signs reviewed General:The patient appears in no acute distress. Skin:Warm, dry, no pallor noted.There is no rash noted. Head:Normocephalic, atraumatic Eye: Normal conjunctiva, no drainage Ears, Nose, Mouth, and Throat: oral mucosa is moist. Nares patent. Cardiovascular:Regular Rate and Rhythm Respiratory: Patient does not take in deep breaths. Few rhonchi seem to be present Back:non-tender GI: Soft and nontender Musculoskeletal: The patient has no evidence of calf tenderness, no pitting edema, symmetrical pulses noted bilaterally Neurological:A&O x4, normal speech; follows all commands. Moves all 4 extremities Psychiatric:Cooperative Constitutional Vital Signs, click to edit/add: Last Vital Signs Temp 98.6 F 09/02/25 13:25 Pulse 75 09/02/25 13:53 Resp 18 09/02/25 13:53 BP 134/74 09/02/25 13:25 Pulse Ox 96 09/02/25 13:53 O2 Del Method Room Air 09/02/25 13:53 Course Vital Signs Vital signs: Vital Signs Temperature 98.6 F 09/02/25 13:25 Pulse Rate 75 09/02/25 13:25 Respiratory Rate 22 H 09/02/25 13:25 Blood Pressure 134/74 09/02/25 13:25 Pulse Oximetry 96 09/02/25 13:25 Oxygen Delivery Method Room Air 09/02/25 13:25 Temperature 98.6 F 09/02/25 13:25 Pulse Rate 75 09/02/25 13:53 Respiratory Rate 18 09/02/25 13:53 Blood Pressure 134/74 09/02/25 13:25 Pulse Oximetry 96 09/02/25 13:53 Oxygen Delivery Method Room Air 09/02/25 13:53 Medical Decision Making MDM Narrative Medical decision making narrative: His workup here is negative including CT of the brain and urinalysis. He is fully oriented and is being released back to ECF. I have no clinical suspicion of a stroke. Differential Diagnosis Differential Diagnosis: Transient confusion, UTI Lab Data Lab results reviewed: Yes I reviewed the patient's lab results Labs: Lab Results 09/02/25 09/02/25 09/02/25 Range/Units 13:36 13:40 15:12 WBC 8.1 (4.0-11.0) 10^3/uL RBC 4.69 L (4.70-6.10) 10^6/uL Hgb 13.8 L (14.0-18.0) g/dL Hct 42.7 (42.0-54.0) % MCV 91.0 (80.0-94.0) fL MCH 29.4 (25.9-34.0) pg MCHC 32.3 (29.9-35.2) g/dL RDW 12.9 (11.0-15.0) % Plt Count 230 (150-450) 10^3/uL MPV 9.5 (9.5-13.5) fL Neut % (Auto) 63.4 (43.0-75.0) % Lymph % (Auto) 25.3 (20.5-60.0) % [place] % (Auto) 7.1 (1.7-12.0) % Eos % (Auto) 2.9 (0.9-7.0) % Baso % (Auto) 0.6 (0.2-2.0) % Neut # (Auto) 5.1 (1.4-6.5) 10^3/uL Lymph # (Auto) 2.0 (1.2-3.8) 10^3/uL [place] # (Auto) 0.6 (0.3-0.8) 10^3/uL Eos # (Auto) 0.2 (0.0-0.7) 10^3/uL Baso # (Auto) 0.1 (0.0-0.1) 10^3/uL Abs Immat Gran (auto) 0.06 H (0.00-0.03) 10^3/uL Imm/Tot Granulo (auto) 0.7 H (0.0-0.5) % Sodium 146 H (136-145) mmol/L Potassium 4.4 (3.5-5.1) mmol/L Chloride 107 (98-107) mmol/L Carbon Dioxide 27.8 (21.0-32.0) mmol/L Anion Gap 15.6 BUN 22.0 H (7.0-18.0) mg/dL Creatinine 1.60 H (0.70-1.30) mg/dL Est GFR ( Amer) 51 L (>=60 mL/min/1.73m^2) Est GFR (Non-Af Amer) 42 L (>=60 mL/min/1.73m^2) BUN/Creatinine Ratio 13.8 Glucose 110 H (74-106) mg/dL Calcium 8.7 (8.5-10.1) mg/dL Troponin I High Sens 7.0 (4.0-76.1) pg/mL NT-Pro-B Natriuret Pep 103.0 (<=1800.0) pg/mL Urine Color Lt. yellow (YELLOW) Urine Clarity Clear (CLEAR) Urine pH 5.5 (5.0-9.0) Ur Specific [place] 1.025 (1.005-1.025) Urine Protein Negative (NEG/TRACE) mg/dL Urine Glucose (UA) Negative (NEGATIVE) mg/dL Urine Ketones Negative (NEGATIVE) mg/dL Urine Occult Blood Negative (NEGATIVE) Urine Nitrite Negative (NEGATIVE) Urine Bilirubin Negative (NEGATIVE) Urine Urobilinogen 0.2 (0.2-1.0) EU/dL Ur Leukocyte Esterase Negative (NEGATIVE) Urine RBC None seen (0-2) #/HPF Urine WBC 0-2 A (NONE SEEN) #/HPF Ur Squamous Epith Cells None seen (NONE/RARE) #/LPF Urine Crystals None seen (None Seen) #/HPF Urine Bacteria Trace A (NONE SEEN) #/HPF Urine Casts None seen (NONE SEEN) #/LPF Urine Mucus None seen (NONE SEEN) Ur Culture Indicated? No Influenza Type A Ag Negative Influenza Type B Ag Negative SARS-CoV-2 Ag (CV2AG) Negative (NEGATIVE) Imaging Data Chest x-ray: Radiologist's impression: ITS Impressions Chest X-Ray 09/02/25 13:29 IMPRESSION: NO ACUTE PROCESS. Impression dictated by: Vu Ramirez Jr., D.O. 09/02/2025 2:04 PM Dictation Location: [facility] Electronically authenticated by: [id number] Y Date: 09/02/2025 14:[address] 09/02/25 14:19 IMPRESSION: NO ACUTE INTRACRANIAL ABNORMALITY. Impression dictated by: Vu Ramirez Jr., D.O. 09/02/2025 3:01 PM Dictation Location: [facility] Electronically authenticated by: [id number] Y Date: 09/02/2025 15:01 ECG Data Attestation: I personally reviewed and interpreted this ECG as follows: (EKG on my interpretation shows sinus rhythm with rate of 74 no acute change) Discharge Plan Discharge Chief Complaint: Upper Respiratory Infection Clinical Impression: Confusion Patient Disposition: Home, Self-Care Time of Disposition Decision: 15:54 Condition: Good Mode of Transportation: Private Vehicle Prescriptions / Home Meds: No Action pantoprazole [Protonix] 40 mg tablet,delayed release (DR/EC) 40 mg PO DAILY Qty: 30 0RF clopidogrel 75 mg tablet 75 mg PO DAILY amlodipine 2.5 mg tablet 2.5 mg PO DAILY meclizine 25 mg tablet 25 mg PO TID PRN (Reason: dizziness) sucralfate 1 gram tablet 1 g PO TID carvedilol 25 mg tablet 25 mg PO Q12H colchicine 0.6 mg capsule 0.6 mg PO .MWF famotidine [Pepcid] 20 mg tablet 20 mg PO BID Qty: 20 0RF gabapentin 300 mg capsule 300 mg PO BEDTIME simvastatin 40 mg tablet 40 mg PO BEDTIME allopurinol 100 mg tablet 100 mg PO DAILY meloxicam 7.5 mg tablet 7.5 mg PO .QD zolpidem 10 mg tablet 10 mg PO .QHS hydrocodone-acetaminophen 10-325 mg tablet 1 tab PO Q6H PRN (Reason: pain) nitroglycerin 0.4 mg tablet, sublingual 0.4 mg sublingual Q5M PRN (Reason: chest pain) lidocaine HCl 2 % Solution 15 ml PO Q4H PRN (Reason: Sore Throat) Qty: 100 0RF alum-mag hydroxide-simeth [Mag-Al Plus] 200-200-20 mg/5 mL Suspension 30 ml PO Q4H PRN (Reason: Sore Throat) 15 Days Qty: 3000 0RF triamcinolone acetonide 0.1 % cream 1 applic topical TID Qty: 80 0RF alprazolam 0.5 mg Tablet 0.5 mg PO BID 2 Days Qty: 4 0RF Print Language: Macedonian Instructions: Altered Mental Status (ED) Referrals: KELLEN BALBUENA [Primary Care Provider, Internal Medicine] - 1 week
[2025-09-02] MEDS: ALBUTEROL SULFATE 2.5 MG/3 ML VIAL NEB IH (13:51)
[2025-09-02 13:54] LABS: Hematocrit 42.7 % (42.0-54.0); Hemoglobin 13.8 g/dL (14.0-18.0); Immature Granulocytes Abs Auto 0.06 10^3/uL (0.00-0.03); Immature Granulocytes Pct Auto 0.7 % (0.0-0.5); Lymphocytes Absolute Auto 2.0 10^3/uL (1.2-3.8); Mean Corpuscular HGB Conc 32.3 g/dL (29.9-35.2); Mean Corpuscular Hemoglobin 29.4 pg (25.9-34.0); Mean Corpuscular Volume 91.0 fL (80.0-94.0); Platelet Count 230 10^3/uL (150-450); Red Blood Count 4.69 10^6/uL (4.70-6.10); White Blood Count 8.1 10^3/uL (4.0-11.0)
--- OUTSIDE RECORDS SUMMARY | 2025-09-02 14:03 | XMS_ITS | Encounter Summary ---
Author Organization [facility] Address [address] [place] [address] Care Team Providers Care Consumer Insights Specialist Name Role Phone Mono Knowles MD Unavailable [phone] Mono Knowles MD Primary Care Provider [phone] Ruth Johnston LPN Unavailable Encounter Details DateTypeDepartmentCare Team (Latest Contact Info)Yztuudfpaoc59/12/2025Abstract [facility] [address] [place] [id number] Mono Knowles MD [address] [place] [address] Social History Tobacco UseTypesPacks/DayYears UsedDateSmoking Tobacco: FormerCigarettesQuit: 09/13/2000Smokeless Tobacco: Never Comments:Quit smoking 10 yea rs ago Alcohol UseStandard Drinks/WeekCommentsNever0 (1 standard drink = 0.6 oz pure alcohol)Caffeine 1-2 cups/lhdA0141 Health LiteracyAnswerDate RecordedHow often do you need to have someone help you when you read instructions, pamphlets, or other written material from your doctor or pharmacy?Nkvgxdatj76/03/2024 Humiliation, Afraid, Rape, and Kick questionnaireAnswerDate RecordedWithin [...] relatives?Once a week06/04/2023How often do you attend sabianist or christian services?More than 4 times per year06/04/2023o you belong to any clubs or organizations such as sabianist groups, unions, fraWebydo. or athletic groups, or school groups?No 06/04/2023How often do you attend meetings of the clubs or organizations you belong to?Never06/04/2023re you , , , , never , or living with a partner?Living with stpgyqz0406/04/2023UDIT-CAnswerDate RecordedQ1: How often do you have a [...] heating?Not hard at all06/04/2023HQ-2AnswerDate RecordedPatient Health Questionnaire-2 [id number] - Occupational Stress QuestionnaireAnswerDate RecordedDo you feel stress - tense, restless, nervous, or anxious, or unable to sleep at night because yourmind is troubled all the time - these days?To some oxrjrq3806/04/2023 Exercise Vital SignAnswerDate RecordedOn average, how many [...] steady place to sleep or slept in fountain runelter (including now)?No06/04/2023Sex and Gender InformationValueDate RecordedSex Assigned at BirthNot on fileLegal OtxJxvx7011/25/2022 6:55 PM EDT Gender IdentityNot on fileSexual OrientationNot on filedocumented as of this encounter Plan of Treatment Not on file documented as of this encounter Visit Diagnoses Not on filedocumented in this encounter Care Teams Team MemberRelationshipSpecialtyStart DateEnd Date Mono Knowles MD [address] [facility] [address] [place] [address] PCP - Jonathan FLORES09/13/21 Mono Knowles MD [address] [facility] [address] [place] [address] PCP - GeneralInternal Medicine03/01/23 Ruth Johnston LPN [address] [facility] [address] [place] [address] 08/20/25documented as of this encounter
--- OUTSIDE RECORDS SUMMARY | 2025-09-02 14:03 | XMS_ITS | Clinical Summary ---
Author Organization [facility] Address [address] [place] [address] Care Team Providers Care Summer Analyst Name Role Phone Mono Knowles MD Unavailable [phone] Mono Knowles MD Primary Care Provider [phone] Ruth Johnston LPN Unavailable Allergies Active AllergyReactionsCriticalityNoted DateCommentsPneumococcal 20-Roselyn Conj VunvZwzbvgik16/26/2021neumococcal Vac CteuzvvlrnKcnfvffu82/26/2021 Medications MedicationSigDispense QuantityRefillsLast FilledStart DateEnd DateStatus carvedilol (Coreg) 25 MG tablet Take 25 mg by mouth in the morning and 25 mg in the evening.07/23/2022ctive ondansetron (Zofran) 4 MG tablet Take 4 mg by mouth every 8 (eight) hours if needed.Active amLODIPine (Norvasc) 2.5 MG tablet Indications:Benign essential hypertensionTake 1 tablet (2.5 mg) by mouth Daily 90 tablet ctive clopidogrel (Plavix) 75 MG tablet Indications:Mixed hyperlipidemiaTake 1 tablet (75 mg) by mouth Daily 100 tablet 4Active pantoprazole (ProtoNix) 40 MG EC tablet Indications:Benign essential hypertensionTake 1 tablet (40 mg) by mouth Daily 100 tablet 5Active nitroglycerin (Nitrostat) 0.4 MG SL tablet Indications: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 pectorisPlace 1 tablet (0.4 mg) under the tongue every 5 (five) minutes if needed for chest pain 90 tablet 1205011/20/2025ctive gabapentin (Neurontin) 300 MG capsule Indications:Pain of right thigh,Lumbar herniated disc,Right lumbar radiculopathy Take 1 capsule (300 mg) by mouth at bedtime 100 capsule /396240/6Active simvastatin (Zocor) 40 MG tablet Indications:Atherosclerosis of [place] coronary artery of [place] heart without angina pectorisTake 1 tablet (40 [...] mg) by mouth Daily 90 capsule 509/6Active HYDROcodone-acetaminophen ([place]) 10-325 MG tablet Indications:Cervical stenosis of spinal canalTake 1 tablet by mouth every 6 (six) hours if needed for severe pain 120 tablet 5Active Nutritional Supplements (Ensure High Protein) liquid Indications:Weight lossTake 1 Container by mouth Daily 7110 mL 5Active ALPRAZolam (Xanax) 1 MG tablet Indications:AnxietyTake 1 tablet (1 mg) by mouth in the morning and 1 tablet (1 mg) before bedtime. 60 tablet 501/6Active zolpidem (Ambien) 10 MG tablet Indications:Chronic insomniaTake 1 tablet (10 mg) by mouth at bedtime 30 tablet /6Active zolpidem (Ambien) 10 MG tablet Indications:Chronic insomniaTake 1 tablet (10 mg) by mouth at bedtime 30 tablet /04/2025Discontinued(Reorder) ALPRAZolam (Xanax) 1 MG tablet Indications:AnxietyTake 1 tablet (1 mg) by mouth in the morning and 1 tablet (1 mg) before bedtime. 60 tablet /11/2024Discontinued(Reorder) predniSONE (Deltasone) 20 MG tablet Indications:Acute glossitisTake 1 tablet (20 mg) by mouth Daily for 5 days 5 tablet /Expired clotrimazole (Mycelex) 10 MG alexis Indications:Acute glossitisTake 1 tablet (10 mg) by mouth 5 (five) times a day for 10 days 50 tablet Expired Active Problems ProblemNoted DateDiagnosed DateClosed left subtrochanteric femur fracture, gihtwsm3606/25/2025Degeneration of intervertebral disc of lumbar khihho4606/25/2025 Borderline abnormal TFTs12/06/20244118Grogdagwb32/24/2025erebrovascular accident (CVA)08/10/2024Irritable bowel syndrome with pgmcnrmrfkin89/14/2024ight lumbar ejhvqzwnhvbdg08/13/2023History of myocardial infarct at age greater than 60 years02/03/20230249Rfgruyy94/09/2023rthritis of right hip01/19/2023ervical stenosis of spinal canal01/19/2023hronic gouty fqtkyzcit76/09/2023hronic /09/7963Ebpmmpaze72/09/2023Hiatal cfwwtv1401/19/2023astroesophageal reflux disease with esophagitis without npmhboehwv34/09/3806Nocx68/09/2023 Fdeovfzwbysp16/09/2023Lumbar herniated disc01/19/2023Obesity (BMI 30-39.9) 01/19/2023Other chronic pain01/19/2023ain of right thigh01/19/2023Stage 3b chronic kidney whskdep8501/19/2023uodenal wqurjbrmyvtl43/06/2023History of stomach sbchxt6409/18/20225298Oydqldvrm61/06/2023enign prostatic hyperplasia without lower urinary tract pvckrhcu67/24/2021ersonal history of other diseases of the digestive mqmkpt7307/12/2020History of colonic jjhrcl5604/26/2019Chronic postoperative pain09/21/2016Cervical ksjjulptgrzaco51/16/2015Hyperlipidemia 12/26/2013therosclerosis of [place] coronary artery of [place] heart with stable angina uyoklkun71/15/2014Stented coronary ckhink7309/22/2013 Overview (02/03/2023): VANGIE in mid LAd Cervical spondylosis without plmbosroxm08/27/2011enign essential hypertension 06/12/2010Diverticulosis of colon10/10/20081142Dfupebzdkzwdwz16/28/2009 Resolved Problems ProblemNoted DateDiagnosed DateResolved QnxkKafehlzuoeibyh31/06/202302/14/2024 Lrotmgqjf26Injury to peniscute renal failure superimposed on stage 3a chronic kidney ejpvwue50 COVID-1901//Traumatic wcjzorungpdwgt71 Vmjiisgvr86/04/Spinal stenosis in cervical zmkfhw9512/20/2018 10/27/20233391Olunexninlso06hest pain01/23/cid iuxkfz40/13/Myocardial rotrrpfiht07/01/Occlusive coronary artery qicrynt22HTN (hypertension)09/22/2013 04/05/2023Unstable dbhgud39 Overview (02/03/2023): Transfer from [facility] DateTypeDepartmentCare IdwwZgwoudsfeqw44/17/2025bstract [facility] [place] [address] [facility] [address] [place] [address] Mono Knowles MD 08/28/2025Patient Outreach [facility] [address] [place] [address] Shelby Millard LPN 08/24/2025bstract [facility] [address] [place] [address] Mono Knowles MD 08/24/2025bstract [facility] [address] [place] [address] Mono Knowles MD 08/22/2025linisync Result Encounter [facility] External Department Unsolicited Provider, Generic External Data 08/22/2025Patient Outreach [facility] [address] [place] [address] Ruth Johnston LPN 08/21/2025bstract [facility] [address] [place] [address] Mono Knowles MD 08/21/2025Telephone [facility] [address] [place] [address] Mono Knowles MD 08/20/2025 9:30 AM ESTOffice Visit [facility] [address] [place] [address] Mono Knowles MD Acute glossitis (Primary Dx); Seborrheic dermatitis; Chronic insomnia; Degeneration of intervertebral disc of lumbar region, unspecified whether pain cmxanvp4508/20/2025bstract [facility] [address] [place] [address] Mono Knowles MD 08/20/2025Patient Outreach [facility] [address] [place] [address] Ruth Johnston LPN 08/20/2025Patient Outreach [facility] [address] [place] [address] Ruth Johnston, OUTSIDE CUTTER 08/20/2025amboo flowsheet [facility] [address] [place] [address] Mono Knowles MD 08/20/20257432Yimhwh09/04/2025Refill [facility] [address] [place] [address] Summer Kay MA Cervical stenosis of spinal canal08/15/2025bstract [facility] [address] [place] [address] Mono Knowles MD 08/15/2025Refill [facility] [address] [place] [address] Mono Knowles MD Pwwoqma8108/14/2025bstract [facility] [address] [place] [address] Mono Knowlse MD 08/06/2025Telephone [facility] [address] [place] [address] Mono Knowles MD 08/03/2025Refill [facility] [address] [place] [address] Mono Knowles MD Cervical stenosis of spinal canal07/30/2025Telephone [facility] [address] [place] [address] Mono Knowles MD 07/27/2025bstract [facility] [address] [place] [address] Mono Knowles MD 07/25/2025Telephone [facility] [address] [place] [address] Mono Knowles MD 07/18/2025Refill [facility] [address] [place] [address] Mono Knowles MD Xkohtrs2007/18/2025Telephone [facility] [address] [place] [address] Mono Knowles MD 07/11/2025Patient Outreach [facility] [address] [place] [address] Shelby Millard LPN 07/10/2025 1:20 PM EDTAncillary Procedure [facility] [address] [place] [phone] 07/10/2025 1:00 PM EDTOffice Visit [facility] [address] [facility] [place] [phone] Lance Karimi, PA Right hip pain (Primary Dx); Arthritis of right hip; Right leg pain07/10/2025Patient Outreach [facility] [address] [place] [address] Shelby Millard LPN 07/10/2025amboo flowsheet [facility] [address] [place] [address] Lance Karimi PA 07/10/20250095Ghvqdf64/27/2025Refill [facility] [address] [place] [address] Mono Knowles MD Cervical stenosis of spinal canal07/03/2025Patient Outreach [facility] [address] [place] [address] Shelby Millard LPN 06/27/2025linisync Result Encounter [facility] External Department Unsolicited Provider, Generic External Data 06/26/2025bstract [facility] [address] [place] [address] Mono Knowles MD 06/26/2025bstract [facility] [address] [place] [address] Mono Knowles MD 06/26/2025bstract [facility] [address] [place] [address] Mono Knowles MD 06/26/2025bstract [facility] [address] [place] [address] Mono Knowles MD 06/26/2025Orders Only [facility] [address] [place] [address] Unallocated, Nomjemma Vasquez MD 06/26/2025bstract [facility] [address] [place] [address] Mono Knowles MD 06/25/2025 11:30 AM EDTOffice Visit [facility] [address] [place] [address] Mono Knowles MD Cerebrovascular accident (CVA), unspecified mechanism (HCC) (Primary Dx); Right thigh pain; Closed displaced subtrochanteric fracture of right femur, sequela; Degeneration of intervertebral disc of lumbar region, unspecified whether pain present; Acute bronchitis, unspecified oygszjmw26/13/2025Refill [facility] [address] [place] [address] Ellie Neil, DIA Xlmycne5006/25/2025amboo flowsheet [facility] [address] [place] [address] Mono Knowles MD 06/25/20251902Fjhsre71/09/2025 9:00 AM EDTOffice Visit [facility] [address] [place] [address] Ellie Neil, YEAST WASHER Acute bronchitis, unspecified organism (Primary Dx); Anxiety; Chronic /09/2025amboo flowsheet [facility] [address] [place] [address] [place] Neil, DIA 06/21/20257784Atdqcf46/07/2025Patient Outreach [facility] [address] [place] [address] Shelby Millard, OUTSIDE CUTTER 06/15/2025Refill [facility] [address] [facility] [address] [place] [address] Mono Knowles MD Cervical stenosis of spinal canal06/13/2025Patient Outreach [facility] [address] [place] [address] Shelby Millard, OUTSIDE CUTTER 06/06/2025Patient Outreach [facility] [address] [place] [address] Shelby Millard, OUTSIDE CUTTER 06/05/2025Telephone [facility] [address] [facility] [address] [place] [address] Mono Knowles MD from Last 3 Months Immunizations ImmunizationAdministration DatesNext DueABRYSVO - Respiratory syncytial virus (RSV), vaccine, bivalent, protein subunit RSV prefusion F, diluent reconstituted, 0.5 mL, PF11/17/2023Influenza, High Dose Seasonal, Preservative Free05/17/2024,05/30/2020,06/14/2019,06/23/2017Influenza, High-dose Seasonal, Quadrivalent, Preservative Free07/12/2023,06/17/2022,06/18/2021Influenza, injectable, quadrivalent, preservative free10/04/2015Influenza, seasonal, injectable, preservative free09/09/2018Influenza, seasonal, intradermal, preservative free05/14/2016,07/15/2015Pneumococcal Conjugate PCV 130806/2015 Pneumococcal Polysaccharide SBZC4811Tdap11/28/2011Zoster, Recombinant 12/22/2022,08/01/2020 Family History Medical HistoryRelationNameCommentsHeart diseaseFatherHypertensionFatherCancer Maternal GrandfatherCancerMaternal Grandmotherbrain tumorMotherRelationName StatusCommentsFatherDeceasedMaternal GrandfatherMaternal GrandmotherMother DeceasedOtherSpouseDeceased Social History Tobacco UseTypesPacks/DayYears UsedDateSmoking Tobacco: FormerCigarettesQuit: 09/13/2000Smokeless Tobacco: Never Tobacco Cessation:Counseling Given: Yes Comments:Quit smoking 10 years ago Alcohol UseStandard Drinks/WeekCommentsNever0 (1 standard drink = 0.6 oz pure alcohol)Caffeine 1-2 cups/eecU5791 Health LiteracyAnswerDate RecordedHow often do you need to have someone help you when you read instructions, pamphlets, or other written material from your doctor or pharmacy?Tqmalhnnc69/03/2024 Humiliation, Afraid, Rape, and Kick questionnaireAnswerDate RecordedWithin [...] relatives?Once a week06/04/2023How often do you attend religious or jew services?More than 4 times per year06/04/2023o you belong to any clubs or organizations such as religious groups, unions, fraternal or athletic groups, or school groups?No 06/04/2023How often do you attend meetings of the clubs or organizations you belong to?Never06/04/2023re you , , , , never , or living with a partner?Living with msctqux6406/04/2023UDIT-CAnswerDate RecordedQ1: How often do you have a [...] heating?Not hard at all06/04/2023HQ-2AnswerDate RecordedPatient Health Questionnaire-2 Mmzmb042[facility] - Occupational Stress QuestionnaireAnswerDate RecordedDo you feel stress - tense, restless, nervous, or anxious, or unable to sleep at night because yourmind is troubled all the time - these days?To some lpyglm1906/04/2023 Exercise Vital SignAnswerDate RecordedOn average, how many [...] InformationValueDate RecordedSex Assigned at BirthNot on fileLegal IvtWlkn9611/25/2022 6:55 PM EDT Gender IdentityNot on fileSexual OrientationNot on file Last Filed Vital Signs Vital SignReadingTime TakenCommentsBlood Mgskkqnu421/6608/20/2025 9:13 AM EST Vqjdm111608/20/2025 9:13 AM GRWPzrnlazyhth98.6 ??C (97.9 ??F)06/25/2025 11:22 AM EDTRespiratory Svva3109 9:07 AM EDTOxygen Tfxwamprjl00%08/20/2025 9:13 AM ESTInhaled Oxygen Concentration--Xkkvxo67.8 kg (198 lb)08/20/2025 9:13 AM EST Lryrzz860.6 cm (5' 6 )08/20/2025 9:13 AM ESTBody Mass Index31.9608/20/2025 9:13 AM EST Plan of Treatment Health MaintenanceDue DateLast DoneCommentsCOVID-19 Vaccine ( season) 5005/17/2024, 06/21/2023, 07/03/2022, Additional history existsInfluenza Vaccine (#1)5005/17/2024, 07/12/2023, 06/17/2022, Additional history existsPneumococcal Vaccine: 65+ TgsawAqwejqhia08/21/2018, 04/22/2015 Procedures Procedure NamePriorityDate/TimeAssociated DiagnosisCommentsBLOOD CULTURE 2 Vjldrvg6508/22/2025 11:19 AM EST BLOOD CULTURE 4Vjnfssn11/10/2025 11:12 AM EST XR HIP 2 OR 3 VW AUWBONtvjuzk92/28/2025 1:17 PM EDT Right hip pain BLOOD CULTURE 2Luosdtf54/15/2025 12:40 PM EDT BLOOD CULTURE 1Bsqfoib76/15/2025 12:[address] CERVICAL SPINE WO IV LVYSIJPLOkbhxft05/14/2025 10:47 AM EDTCT ANGIO HEAD NECK Spmzzky7706/26/2025 10:44 AM EDTECHO TRANSTHORACIC W/ QVOPFYCCxzxrqe25/14/2025 10:43 AM EDTX-RAY : SPINE, DDNBBUWpdrkrp63/14/2025 10:41 AM EDTMRI HEAD/BRAIN WO CKQZROVYommhew32/14/2025 10:41 AM EDTMRI LUMBAR SPINE WO CONTRASTRoutine 06/26/2025 10:40 AM EDTCT HIP LEFT WO IV LJSAARULPewvris56/14/2025 10:39 AM EDT from Last 3 Months Results * BLOOD CULTURE 2 (08/22/2025 11:19 AM EST) Only the most recent of2 resultswithin the time period is included. ComponentValueRef RangeTest MethodAnalysis TimePerformed AtPathologist Signature BLOOD CULTURE 2 ??Blood Culture 2 NG5D NO GROWTH AT 5 DAYS.^NO GROWTH AT 5 DAYS. TBHSpecimen (Source)Anatomical Location / LateralityCollection Method / Volume Collection TimeReceived Time08/22/2025 11:19 AM EST08/22/2025 11:26 AM EST Narrative [facility] - 08/27/2025 2:45 PM EST PEDS BOTTLE ONLY Authorizing ProviderResult TypeResult StatusGeneric External Data ProviderLAB BLOOD ORDERABLESFinal ResultPerforming OrganizationAddressCity/State/ZIP Code Phone Number [facility] * BLOOD CULTURE 1 (08/22/2025 11:12 AM EST) Only the most recent of2 resultswithin the time period is included. ComponentValueRef RangeTest MethodAnalysis TimePerformed AtPathologist Signature BLOOD CULTURE 1 ??Blood Culture 1 NG5D NO GROWTH AT 5 DAYS.^NO GROWTH AT 5 DAYS. TBHSpecimen (Source)Anatomical Location / LateralityCollection Method / Volume Collection TimeReceived Time08/22/2025 11:12 AM EST08/22/2025 11:25 AM EST Narrative [facility] - 08/27/2025 2:45 PM EST Authorizing ProviderResult TypeResult StatusGeneric External Data ProviderLAB BLOOD ORDERABLESFinal ResultPerforming OrganizationAddressCity/State/ZIP Code Phone Number [facility] * XR hip right 2 or 3 [...] femur. No hardware complication. Authorizing ProviderResult TypeResult StatusMacynthia Karimi PAI XR PROCEDURES Final Result * CT cervical spine wo IV contrast [...] PROCEDURESFinal Result from Last 3 Months Insurance * Guarantor: Rosina Escobedo TypeRelation to PatientDate of BirthPhone Billing AddressPersonal/NgrrzrAhne18/20/1946 [address] [address] Care Teams Team MemberRelationshipSpecialtyStart DateEnd Date Mono Knowles MD [address] [facility] [address] [place] [address] PCP - Jonathan FLORES09/13/21 Mono Knowles MD [address] [facility] [address] [place] [address] PCP - [facility]Qu[facility] Healthnal Medicine03/01/23 Ruth Johnston LPN [address] [facility] [address] [place] [address] 08/20/25
--- OUTSIDE RECORDS SUMMARY | 2025-09-02 14:03 | XMS_ITS | Encounter Summary ---
Author Organization [facility] Address [address] [place] [address] Care Team Providers Care Plastic Parts Fabricator Name Role Phone Mono Knowles MD Unavailable [phone] Mono Knowles MD Primary Care Provider [phone] Ruth Johnston LPN Unavailable Encounter Details DateTypeDepartmentCare Team (Latest Contact Info)Uejzvwujvon02/10/2025Clinisync Result Encounter [facility] External Department Unsolicited Provider, Generic External Data Social History Tobacco UseTypesPacks/DayYears UsedDateSmoking Tobacco: FormerCigarettesQuit: 09/13/2000Smokeless Tobacco: Never Comments:Quit smoking 10 yea rs ago Alcohol UseStandard Drinks/WeekCommentsNever0 (1 standard drink = 0.6 oz pure alcohol)Caffeine 1-2 cups/wbdT9358 Health LiteracyAnswerDate RecordedHow often do you need to have someone help you when you read instructions, pamphlets, or other written material from your doctor or pharmacy?Jgtmqbprx55/03/2024 Humiliation, Afraid, Rape, and Kick questionnaireAnswerDate RecordedWithin [...] relatives?Once a week06/04/2023How often do you attend episcopal or quaker services?More than 4 times per year06/04/2023o you belong to any clubs or organizations such as episcopal groups, unions, [employer] or athletic groups, or school groups?No 06/04/2023How often do you attend meetings of the clubs or organizations you belong to?Never06/04/2023re you , , , , never , or living with a partner?Living with ltjcloe9906/04/2023UDIT-CAnswerDate RecordedQ1: How often do you have a [...] heating?Not hard at all06/04/2023HQ-2AnswerDate RecordedPatient Health Questionnaire-2 Ralkh133[facility] - Occupational Stress QuestionnaireAnswerDate RecordedDo you feel stress - tense, restless, nervous, or anxious, or unable to sleep at night because yourmind is troubled all the time - these days?To some maimqt0206/04/2023 Exercise Vital SignAnswerDate RecordedOn average, how many [...] InformationValueDate RecordedSex Assigned at BirthNot on fileLegal DvoGtxo6911/25/2022 6:55 PM EDT Gender IdentityNot on fileSexual OrientationNot on filedocumented as of this encounter Plan of Treatment Not on file documented as of this encounter Procedures Procedure NamePriorityDate/TimeAssociated DiagnosisCommentsBLOOD CULTURE 2 Ybcrxcb5008/22/2025 11:19 AM EST BLOOD CULTURE 1Vgnhjzz08/10/2025 11:12 AM EST documented in this encounter Results * BLOOD CULTURE 2 (08/22/2025 11:19 AM EST)ComponentValueRef RangeTest Method Analysis TimePerformed AtPathologist SignatureBLOOD CULTURE 2 ??Blood Culture 2 NG5D NO GROWTH AT 5 DAYS.^NO GROWTH AT 5 DAYS. TBHSpecimen (Source)Anatomical Location / LateralityCollection Method / Volume Collection TimeReceived Time08/22/2025 11:19 AM EST08/22/2025 11:26 AM EST Narrative [facility] - 08/27/2025 2:45 PM EST PEDS BOTTLE ONLY Authorizing ProviderResult TypeResult StatusGeneric External Data ProviderLAB BLOOD ORDERABLESFinal ResultPerforming OrganizationAddressCity/State/ZIP Code Phone Number [facility] * BLOOD CULTURE 1 (08/22/2025 11:12 AM EST)ComponentValueRef RangeTest Method Analysis TimePerformed AtPathologist SignatureBLOOD CULTURE 1 ??Blood Culture 1 NG5D NO GROWTH AT 5 DAYS.^NO GROWTH AT 5 DAYS. TBHSpecimen (Source)Anatomical Location / LateralityCollection Method / Volume Collection TimeReceived Time08/22/2025 11:12 AM EST08/22/2025 11:25 AM EST Narrative [facility] - 08/27/2025 2:45 PM EST Authorizing ProviderResult TypeResult StatusGeneric External Data ProviderLAB BLOOD ORDERABLESFinal ResultPerforming OrganizationAddressCity/State/ZIP Code Phone Number [facility] documented in this encounter Visit Diagnoses Not on filedocumented in this encounter Care Teams Team MemberRelationshipSpecialtyStart DateEnd Date Mono Knowles MD [address] [facility] [address] [place] [address] PCP - Jonathan FLORES09/13/21 Mono Knowles MD [address] [facility] [address] [place] [address] PCP - GeneralInternal Medicine03/01/23 Ruth Johnston LPN [address] [facility] [address] [place] [address] 08/20/25documented as of this encounter
--- OUTSIDE RECORDS SUMMARY | 2025-09-02 14:03 | XMS_ITS | Encounter Summary ---
Author Organization [facility] Address [address] [facility] [place] [address] Care Team Providers Care Family Lawyer Name Role Phone Mono Knowles MD Unavailable [phone] Mono Knowles MD Primary Care Provider [phone] Ruth Johnston LPN Unavailable Encounter Details DateTypeDepartmentCare Team (Latest Contact Info)Oxgjyceavkn04/08/2025bstract [facility] [address] [place] [id number] Mono Knowles MD [address] [place] [address] Social History Tobacco UseTypesPacks/DayYears UsedDateSmoking Tobacco: FormerCigarettesQuit: 09/13/2000Smokeless Tobacco: Never Comments:Quit smoking 10 yea rs ago Alcohol UseStandard Drinks/WeekCommentsNever0 (1 standard drink = 0.6 oz pure alcohol)Caffeine 1-2 cups/[id number] Health LiteracyAnswerDate RecordedHow often do you need to have someone help you when you read instructions, pamphlets, or other written material from your doctor or pharmacy?Yotdsctni49/03/2024 Humiliation, Afraid, Rape, and Kick questionnaireAnswerDate RecordedWithin [...] relatives?Once a week06/04/2023How often do you attend lutheran or mormonism services?More than 4 times per year06/04/2023o you belong to any clubs or organizations such as lutheran groups, unions, fraGameMaki or athletic groups, or school groups?No 06/04/2023How often do you attend meetings of the clubs or organizations you belong to?Never06/04/2023re you , , , , never , or living with a partner?Living with wtxiooj3406/04/2023UDIT-CAnswerDate RecordedQ1: How often do you have a [...] heating?Not hard at all06/04/2023HQ-2AnswerDate RecordedPatient Health Questionnaire-2 [facility]ylz781[facility] [place] of Occupational Health - Occupational Stress QuestionnaireAnswerDate RecordedDo you feel stress - tense, restless, nervous, or anxious, or unable to sleep at night because yourmind is troubled all the time - these days?To some wxuocg9506/04/2023 Exercise Vital SignAnswerDate RecordedOn average, how many [...] steady place to sleep or slept in [place] (including now)?No06/04/2023Sex and Gender InformationValueDate RecordedSex Assigned at BirthNot on fileLegal FqrSdtu1411/25/2022 6:55 PM EDT Gender IdentityNot on fileSexual OrientationNot on filedocumented as of this encounter Plan of Treatment Not on file documented as of this encounter Visit Diagnoses Not on filedocumented in this encounter Care Teams Team MemberRelationshipSpecialtyStart DateEnd Date Mono Knowles MD [address] [facility] [address] [place] [address] PCP - Jonathan FLORES09/13/21 Mono Knowles MD [address] [facility] [address] [place] [address] PCP - GeneralInternal Medicine03/01/23 Ruth Johnston LPN [address] [facility] [address] [place] [address] 08/20/25documented as of this encounter
--- OUTSIDE RECORDS SUMMARY | 2025-09-02 14:03 | XMS_ITS | Encounter Summary ---
Author Organization [facility] Address [address] [place] [address] Care Team Providers Care Piccolo Mechanic Name Role Phone Mono Knowles MD Unavailable [phone] Mono Knowles MD Primary Care Provider [phone] Ruth Johnston LPN Unavailable Encounter Details DateTypeDepartmentCare Team (Latest Contact Info)Axcoymijtwx84/08/2025Travel Social History Tobacco UseTypesPacks/DayYears UsedDateSmoking Tobacco: FormerCigarettesQuit: 09/13/2000Smokeless Tobacco: Never Comments:Quit smoking 10 yea rs ago Alcohol UseStandard Drinks/WeekCommentsNever0 (1 standard drink = 0.6 oz pure alcohol)Caffeine 1-2 cups/[id number] Health LiteracyAnswerDate RecordedHow often do you need to have someone help you when you read instructions, pamphlets, or other written material from your doctor or pharmacy?Hygqgczyz34/03/2024 Humiliation, Afraid, Rape, and Kick questionnaireAnswerDate RecordedWithin [...] relatives?Once a week06/04/2023How often do you attend latter-day or yarsani services?More than 4 times per year06/04/2023o you belong to any clubs or organizations such as latter-day groups, unions, fraternal or athletic groups, or school groups?No 06/04/2023How often do you attend meetings of the clubs or organizations you belong to?Never06/04/2023re you , , , , never , or living with a partner?Living with alqsqls6006/04/2023UDIT-CAnswerDate RecordedQ1: How often do you have a [...] heating?Not hard at all06/04/2023HQ-2AnswerDate RecordedPatient Health Questionnaire-2 Qpuia761[facility] [place] of Occupational Health - Occupational Stress QuestionnaireAnswerDate RecordedDo you feel stress - tense, restless, nervous, or anxious, or unable to sleep at night because yourmind is troubled all the time - these days?To some jymlch9206/04/2023 Exercise Vital SignAnswerDate RecordedOn average, how many [...] InformationValueDate RecordedSex Assigned at BirthNot on fileLegal SooWtqq9011/25/2022 6:55 PM EDT Gender IdentityNot on fileSexual OrientationNot on filedocumented as of this encounter Plan of Treatment Not on file documented as of this encounter Visit Diagnoses Not on filedocumented in this encounter Care Teams Team MemberRelationshipSpecialtyStart DateEnd Date Mono Knowles MD [address] [facility] [address] [place] [address] PCP - Jonathan FLORES09/13/21 Mono Knowles MD [address] [place] [address] PCP - GeneralInternal Medicine03/01/23 Ruth Johnston LPN [address] [place] [address] 08/20/25documented as of this encounter
--- OUTSIDE RECORDS SUMMARY | 2025-09-02 14:03 | XMS_ITS ---
Author Organization [facility] Address [address] [place] [address] Care Team Providers Care Drug Counselor Name Role Phone Mono Knowles MD Unavailable [phone] Mono Knowles MD Primary Care Provider [phone] Ruth Johnston LPN Unavailable Chronic Care Management (CCM) Status:Enrolled (Active) Start date:08/20/2025 Enrollment date:08/20/2025 Overview Please assess for Care Management needs. <August 20, 2025, 09:37 - Ruth Johnston LPN>08/20/2025, 9:38 AM - Ruth Johnston LPN- Patient gives verbal consent to be enrolled in CCM Program and understands there could be a bill for this service. NameKrissy Johnston LPN(Responsible Staff)[phone] Continued Care and Services Coordination
--- OUTSIDE RECORDS SUMMARY | 2025-09-02 14:03 | XMS_ITS | Encounter Summary ---
Author Organization [facility] Address [address] [place] [address] Care Team Providers Care Arborist Climber Name Role Phone Mono Knowles MD Unavailable [phone] Mono Knowles MD Primary Care Provider Ruth Johnston LPN Unavailable Encounter Details DateTypeDepartmentCare Team (Latest Contact Info)Ykboujgyymm50/16/2025Patient Outreach [facility] [address] [place] [address] Shelby Millard LPN Social History Tobacco UseTypesPacks/DayYears UsedDateSmoking Tobacco: FormerCigarettesQuit: 09/13/2000Smokeless Tobacco: Never Comments:Quit smoking 10 yea rs ago Alcohol UseStandard Drinks/WeekCommentsNever0 (1 standard drink = 0.6 oz pure alcohol)Caffeine 1-2 cups/[id number] Health LiteracyAnswerDate RecordedHow often do you need to have someone help you when you read instructions, pamphlets, or other written material from your doctor or pharmacy?Roydmzbca26/03/2024 Humiliation, Afraid, Rape, and Kick questionnaireAnswerDate RecordedWithin [...] relatives?Once a week06/04/2023How often do you attend mormon or latter-day services?More than 4 times per year06/04/2023o you belong to any clubs or organizations such as mormon groups, unions, fraPowerOne Media or athletic groups, or school groups?No 06/04/2023How often do you attend meetings of the clubs or organizations you belong to?Never06/04/2023re you , , , , never , or living with a partner?Living with ejpurqm0606/04/2023UDIT-CAnswerDate RecordedQ1: How often do you have a [...] heating?Not hard at all06/04/2023HQ-2AnswerDate RecordedPatient Health Questionnaire-2 Slqse769Fin[facility] [place] of Occupational Health - Occupational Stress QuestionnaireAnswerDate RecordedDo you feel stress - tense, restless, nervous, or anxious, or unable to sleep at night because yourmind is troubled all the time - these days?To some tqrfeq1906/04/2023 Exercise Vital SignAnswerDate RecordedOn average, how many [...] InformationValueDate RecordedSex Assigned at BirthNot on fileLegal GzbYjgb8911/25/2022 6:55 PM EDT Gender IdentityNot on fileSexual OrientationNot on filedocumented as of this encounter Progress Notes * Shelby Millard LPN - 08/28/2025 9:39 AM EST Images from the original note were not included. <August 28, 2025, 09:45 - Shelby Millard LPN> Flowsheet Row Patient Outreach from 08/28/[address] [facility] with Shelby Millard LPN Hospital Information ED, Hospital or Correction Facility Discharge? Hospital Patient has been contacted within two business days of discharge No [DUE TO GOING TO SNF] Have two attempts been made to contact the patient within two business days of being discharged? No Diagnosis THRUSH Discharge Date 08/24/25 Discharged To: Correction Facility (specify SNF in comments) Discharge Hospital [facility] Admission Date 08/22/25 Medications Appointments Self Management Patient Teaching Wrap Up * ALBANIA Gardner - 08/28/2025 9:39 AM EST Acknowledged documented in this encounter Plan of Treatment Not on file documented as of this encounter Visit Diagnoses Not on filedocumented in this encounter Care Teams Team MemberRelationshipSpecialtyStart DateEnd Date Mono Knowles MD [address] [facility] 110 [place] [address] PCP - Kearns MA09/13/21 Mono Knowles MD [address] [facility] 110 [place] [address] PCP - GeneralInternal Medicine03/01/23 Ruth Johnston LPN [address] [facility] 110 [place] [address] 08/20/25documented as of this encounter
--- OUTSIDE RECORDS SUMMARY | 2025-09-02 14:03 | XMS_ITS | Encounter Summary ---
Author Organization [facility] Address [address] [place] [address] Care Team Providers Care Anode Machine Operator Name Role Phone Mono Knowles MD Unavailable [phone] Mono Knowles MD Primary Care Provider [phone] Ruth Johnston LPN Unavailable Encounter Details DateTypeDepartmentCare Team (Latest Contact Info)Zwsonesvyuz50/10/2025Patient Outreach [facility] [address] [place] [address] Ruth Johnston LPN [address] [place] [address] Social History Tobacco UseTypesPacks/DayYears UsedDateSmoking Tobacco: FormerCigarettesQuit: 09/13/2000Smokeless Tobacco: Never Comments:Quit smoking 10 yea rs ago Alcohol UseStandard Drinks/WeekCommentsNever0 (1 standard drink = 0.6 oz pure alcohol)Caffeine 1-2 cups/[id number] Health LiteracyAnswerDate RecordedHow often do you need to have someone help you when you read instructions, pamphlets, or other written material from your doctor or pharmacy?Xzdrlturg18/03/2024 Humiliation, Afraid, Rape, and Kick questionnaireAnswerDate RecordedWithin [...] relatives?Once a week06/04/2023How often do you attend mosque or methodist services?More than 4 times per year06/04/2023o you belong to any clubs or organizations such as mosque groups, unions, fraternal or athletic groups, or school groups?No 06/04/2023How often do you attend meetings of the clubs or organizations you belong to?Never06/04/2023re you , , , , never , or living with a partner?Living with vvptkjj8506/04/2023UDIT-CAnswerDate RecordedQ1: How often do you have a [...] heating?Not hard at all06/04/2023HQ-2AnswerDate RecordedPatient Health Questionnaire-2 Ugrrh944Fin[facility] [place] of Occupational Health - Occupational Stress QuestionnaireAnswerDate RecordedDo you feel stress - tense, restless, nervous, or anxious, or unable to sleep at night because yourmind is troubled all the time - these days?To some wrcixc8906/04/2023 Exercise Vital SignAnswerDate RecordedOn average, how many [...] InformationValueDate RecordedSex Assigned at BirthNot on fileLegal FjpWjlp8911/25/2022 6:55 PM EDT Gender IdentityNot on fileSexual OrientationNot on filedocumented as of this encounter Progress Notes * Ruth Johnston, ELAINE - 08/22/2025 8:20 AM EST Pts girlfriend Peace calls and states that pt went to ER yesterday and was diagnosed with Thrush. Prescribed Nystatin. Pts girlfriend Peace states pt does not want to get out of bed. States pt is still weak and wants to go back to [facility] but she was told that he can't from his insurance. She shares that he has to sell everything if he goes back. Wants to know if Dr. Knowles will do anything about this. I tell pt that PCP does not have control over insurance coverages. I let pt know that PCP can provide what's needed by insurance if anything to approve the stay if it is medically necessary. I ask if she would like to schedule pt for appt to address the increased weakness. Pts girlfriend oliverio and states has appt on Wednesday and with transportation issues can not come sooner. I encourage Peace to take pt to ER if things get worse. She shares when she took him to ER yesterday he already had these symptoms and they gave him the medication for thrush. I let Peace know that if he goes to ER andif they determine that his symptoms require hospitalization they may admit him and then pt may qualify for a skilled stay depending on his condition. She shares home health nurse has not been in today yet. I let her know that it is still early in the day and to call his home health to see if a nurse will stop out today. I ask her how often the nurse is visiting. She states she does not know, but knows Therapy is supposed to be coming next week. Pts girlfriend is concerned because pt has not gotten out of bed yet today. I explain to pts girlfriend that it is only 8:30 a.m and pt may just be sleeping in a bit. Suggest giving pt time and seeing if he continues to not want to get up later this morning. I encourage Peace to call back if weakness increases or pt develops any more issue. * JANN Luz - 08/22/2025 8:20 AM EST <August 22, 2025, 09:17 - JANN Luz> Reviewed chart. Pt has QMB rather than full medicaid benefits, so it would not be an option to get facility placement through Medicaid. LM for [facility] requesting return call to discuss pt's case further. <August 22, 2025, 10:49 - JANN Luz> Spoke to Cassandra at [facility]. For pt's SNF stay last month, insurance cut him due to reaching maxrehab potential, not for maxing out covered days. We discuss process of trying to get PA for pt to admit to SNF from home, however [facility] will not have a bed open until sometime next week. Cassandra talked to their physical therapy and they did not think SNF stay would be authorized based on pt'slast stay. <August 22, 2025, 10:59 - JANN Luz> Called and spoke to pt's girlfriend Peace. She states pt fell once last night and twice already this morning. She called squad and he is being taken to [facility] ED. Peace does not have vehicle to meet ptat ED. States he is so weak and falling all the time. Enc Peace to contact [facility] to notify someone in ED of her concerns and to ask if he can be evaluated by PT while there. JANN advises we can try to get PA for SNF placement if pt returns home but it will take at minimum a couple of days to arrange. Advised that [facility] does not have beds available. She'd be interested in trying to get placement at [facility]. Will follow up depending on how pt's ED visit goes today. documented in this encounter Plan of Treatment Not on file documented as of this encounter Visit Diagnoses Diagnosis Essential (primary) hypertension- Primary Unspecified essential hypertension Stage 3b chronic kidney disease ([facility]) documented in this encounter Care Teams Team MemberRelationshipSpecialtyStart DateEnd Date Mono Knowles MD [address] [facility] [address] [place] [address] PCP - Jonathan FLORES09/13/21 Mono Knowles MD [address] [facility] [address] [place] [address] PCP - GeneralInternal Medicine03/01/23 Ruth Johnston LPN [address] [facility] [address] [place] [address] 08/20/25documented as of this encounter
--- OUTSIDE RECORDS SUMMARY | 2025-09-02 14:03 | XMS_ITS | Encounter Summary ---
Author Organization [facility] Address [address] [facility] [place] [address] Care Team Providers Care Photovoltaic Installer Name Role Phone Mono Knowles MD Unavailable [phone] Mono Knowles MD Primary Care Provider [phone] Ruth Johnston LPN Unavailable Encounter Details DateTypeDepartmentCare Team (Latest Contact Info)Efngdjuszrq80/12/2025Abstract [facility] [address] [place] [id number] Mono Knowles MD [address] [place] [address] Social History Tobacco UseTypesPacks/DayYears UsedDateSmoking Tobacco: FormerCigarettesQuit: 09/13/2000Smokeless Tobacco: Never Comments:Quit smoking 10 yea rs ago Alcohol UseStandard Drinks/WeekCommentsNever0 (1 standard drink = 0.6 oz pure alcohol)Caffeine 1-2 cups/[id number] Health LiteracyAnswerDate RecordedHow often do you need to have someone help you when you read instructions, pamphlets, or other written material from your doctor or pharmacy?Nwyyysqtt96/03/2024 Humiliation, Afraid, Rape, and Kick questionnaireAnswerDate RecordedWithin [...] relatives?Once a week06/04/2023How often do you attend holiness or temple services?More than 4 times per year06/04/2023o you belong to any clubs or organizations such as holiness groups, unions, fraWiTech SpA or athletic groups, or school groups?No 06/04/2023How often do you attend meetings of the clubs or organizations you belong to?Never06/04/2023re you , , , , never , or living with a partner?Living with jnvibmu8206/04/2023UDIT-CAnswerDate RecordedQ1: How often do you have a [...] heating?Not hard at all06/04/2023HQ-2AnswerDate RecordedPatient Health Questionnaire-2 Osuyk952Fin[facility] [place] of Occupational Health - Occupational Stress QuestionnaireAnswerDate RecordedDo you feel stress - tense, restless, nervous, or anxious, or unable to sleep at night because yourmind is troubled all the time - these days?To some sdniji5006/04/2023 Exercise Vital SignAnswerDate RecordedOn average, how many [...] steady place to sleep or slept in [place] (including now)?No06/04/2023Sex and Gender InformationValueDate RecordedSex Assigned at BirthNot on fileLegal IvuFcph0611/25/2022 6:55 PM EDT Gender IdentityNot on fileSexual OrientationNot on filedocumented as of this encounter Plan of Treatment Not on file documented as of this encounter Visit Diagnoses Not on filedocumented in this encounter Care Teams Team MemberRelationshipSpecialtyStart DateEnd Date Mono Knowles MD [address] [facility] [address] [place] [address] PCP - Jonathan FLORES09/13/21 Mono Knowles MD [address] [facility] [address] [place] [address] PCP - GeneralInternal Medicine03/01/23 Ruth Johnstno LPN [address] [facility] [address] [place] [address] 08/20/25documented as of this encounter
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
--- OUTSIDE RECORDS SUMMARY | 2025-09-02 14:03 | XMS_ITS | Encounter Summary ---
Author Organization [facility] Healthcare Address [address] [place] [address] Care Team Providers Care Apartment House Manager Name Role Phone Mono Knowles MD Unavailable [phone] Mono Knowles MD Primary Care Provider [phone] Ruth Johnston LPN Unavailable Encounter Details DateTypeDepartmentCare Team (Latest Contact Info)Fvptiyxpbpa87/08/2025Patient Outreach [facility] POPULATION [facility] [address] [facility] [place] [address] Ruth Johnston LPN [address] [facility] [address] [place] [address] Social History Tobacco UseTypesPacks/DayYears UsedDateSmoking Tobacco: FormerCigarettesQuit: 09/13/2000Smokeless Tobacco: Never Comments:Quit smoking 10 yea rs ago Alcohol UseStandard Drinks/WeekCommentsNever0 (1 standard drink = 0.6 oz pure alcohol)Caffeine 1-2 cups/[id number] Health LiteracyAnswerDate RecordedHow often do you need to have someone help you when you read instructions, pamphlets, or other written material from your doctor or pharmacy?Nqktsmgmn91/03/2024 Humiliation, Afraid, Rape, and Kick questionnaireAnswerDate RecordedWithin [...] relatives?Once a week06/04/2023How often do you attend tenriism or faith services?More than 4 times per year06/04/2023o you belong to any clubs or organizations such as tenriism groups, unions, fraternal or athletic groups, or school groups?No 06/04/2023How often do you attend meetings of the clubs or organizations you belong to?Never06/04/2023re you , , , , never , or living with a partner?Living with dgtbohg3406/04/2023UDIT-CAnswerDate RecordedQ1: How often do you have a [...] heating?Not hard at all06/04/2023HQ-2AnswerDate RecordedPatient Health Questionnaire-2 Vzqsu049[facility] [place] of Occupational Health - Occupational Stress QuestionnaireAnswerDate RecordedDo you feel stress - tense, restless, nervous, or anxious, or unable to sleep at night because yourmind is troubled all the time - these days?To some cqjqmx7406/04/2023 Exercise Vital SignAnswerDate RecordedOn average, how many [...] steady place to sleep or slept in [place] (including now)?No06/04/2023Sex and Gender InformationValueDate RecordedSex Assigned at BirthNot on fileLegal YpyKxdq4011/25/2022 6:55 PM EDT Gender IdentityNot on fileSexual OrientationNot on filedocumented as of this encounter Progress Notes * Ruth Johnston LPN - 08/20/2025 11:10 AM EST Pts girlfriend Peace calls to let screenplay writer know that pts B/P was 101/74 and that she is going to fish bait picker pts medications now. Gala shares she is going to make him Ramen for lunch because he can't eat hard foods at this time. Denies any other needs or concerns. documented in this encounter Plan of Treatment Not on file documented as of this encounter Visit Diagnoses Diagnosis Essential (primary) hypertension- Primary Unspecified essential hypertension Stage 3b chronic kidney disease ([facility]-HCC) documented in this encounter Care Teams Team MemberRelationshipSpecialtyStart DateEnd Date Mono Knowles MD [address] [place] [address] [place] [address] PCP - Jonathan FLORES09/13/21 Mono Knowles MD [address] [facility] [address] [place] [address] PCP - GeneralInternal Medicine03/01/23 Ruth Johnston LPN [address] [place] [address] 08/20/25documented as of this encounter
--- OUTSIDE RECORDS SUMMARY | 2025-09-02 14:03 | XMS_ITS ---
Author Organization [facility] Address [address] [place] [address] Care Team Providers Care Broaching Machine Operator Name Role Phone Mono Knowles MD Unavailable [phone] Mono Knowles MD Primary Care Provider [phone] Ruth Johnston LPN Unavailable Emergency Department Transitional Care Management (TCM) Status:Closed (Closed) Start date:08/21/2025 Enrollment date:08/22/2025 Enrollment reason:Identified using discharge data End date:08/22/2025 Close reason:Actively enrolled in CCM Overview Discharged from [facility] ER on 08/21. Please contact within 2 days of discharge for ER DANNY and schedule a follow-up appointment if needed. Continued Care and Services Coordination
--- OUTSIDE RECORDS SUMMARY | 2025-09-02 14:03 | XMS_ITS | Encounter Summary ---
Author Organization [facility] Address [address] [facility] [place] [address] Care Team Providers Care Wood And Hardware Outfitter Name Role Phone Mono Knowles MD Unavailable [phone] Mono Knowles MD Primary Care Provider [phone] Ruth oJhnston LPN Unavailable Encounter Details DateTypeDepartmentCare Team (Latest Contact Info)Fabsnziylus05/09/2025bstract [facility] [address] [place] [id number] Mono Knowles MD [address] [place] [address] Social History Tobacco UseTypesPacks/DayYears UsedDateSmoking Tobacco: FormerCigarettesQuit: 09/13/2000Smokeless Tobacco: Never Comments:Quit smoking 10 yea rs ago Alcohol UseStandard Drinks/WeekCommentsNever0 (1 standard drink = 0.6 oz pure alcohol)Caffeine 1-2 cups/[id number] Health LiteracyAnswerDate RecordedHow often do you need to have someone help you when you read instructions, pamphlets, or other written material from your doctor or pharmacy?Kruvfywvp18/03/2024 Humiliation, Afraid, Rape, and Kick questionnaireAnswerDate RecordedWithin [...] relatives?Once a week06/04/2023How often do you attend evangelical or moravian services?More than 4 times per year06/04/2023o you belong to any clubs or organizations such as evangelical groups, unions, [email or web address] or athletic groups, or school groups?No 06/04/2023How often do you attend meetings of the clubs or organizations you belong to?Never06/04/2023re you , , , , never , or living with a partner?Living with hqxkzmd3506/04/2023UDIT-CAnswerDate RecordedQ1: How often do you have a [...] heating?Not hard at all06/04/2023HQ-2AnswerDate RecordedPatient Health Questionnaire-2 Dysee951Finun[facility] [place] of Occupational Health - Occupational Stress QuestionnaireAnswerDate RecordedDo you feel stress - tense, restless, nervous, or anxious, or unable to sleep at night because yourmind is troubled all the time - these days?To some ewtooa2706/04/2023 Exercise Vital SignAnswerDate RecordedOn average, how many [...] steady place to sleep or slept in [place] (including now)?No06/04/2023Sex and Gender InformationValueDate RecordedSex Assigned at BirthNot on fileLegal OvrAjrm3811/25/2022 6:55 PM EDT Gender IdentityNot on fileSexual OrientationNot on filedocumented as of this encounter Plan of Treatment Not on file documented as of this encounter Visit Diagnoses Not on filedocumented in this encounter Care Teams Team MemberRelationshipSpecialtyStart DateEnd Date Mono Knowles MD [address] [facility] [address] [place] [address] PCP - Jonathan FLORES09/13/21 Mono Knowles MD [address] [facility] [address] [place] [address] PCP - GeneralInternal Medicine03/01/23 Ruth Johnston LPN [address] [facility] [address] [place] [address] 08/20/25documented as of this encounter
--- OUTSIDE RECORDS SUMMARY | 2025-09-02 14:03 | XMS_ITS | Encounter Summary ---
Author Organization [facility] Address [address] [place] [address] Care Team Providers Care Production Support Specialist Name Role Phone Mono Knowles MD Unavailable [phone] Mono Knowles MD Primary Care Provider [phone] Ruth Johnston LPN Unavailable Encounter Details DateTypeDepartmentCare Team (Latest Contact Info)Eyixnjpofur87/09/2025Telephone [facility] [facility] [address] [place] [id number] Mono Knowles MD [address] [place] [address] Social History Tobacco UseTypesPacks/DayYears UsedDateSmoking Tobacco: FormerCigarettesQuit: 09/13/2000Smokeless Tobacco: Never Comments:Quit smoking 10 yea rs ago Alcohol UseStandard Drinks/WeekCommentsNever0 (1 standard drink = 0.6 oz pure alcohol)Caffeine 1-2 cups/vtkS6935 Health LiteracyAnswerDate RecordedHow often do you need to have someone help you when you read instructions, pamphlets, or other written material from your doctor or pharmacy?Jruudbwus64/03/2024 Humiliation, Afraid, Rape, and Kick questionnaireAnswerDate RecordedWithin [...] week06/04/2023How often do you attend religion or muslim services?More than 4 times per year06/04/2023o you belong to any clubs or organizations such as religion groups, unions, fraDeemelo or athletic groups, or school groups?No 06/04/2023How often do you attend meetings of the clubs or organizations you belong to?Never06/04/2023re you , , , , never , or living with a partner?Living with ejbybzr8506/04/2023UDIT-CAnswerDate RecordedQ1: How often do you have a [...] heating?Not hard at all06/04/2023HQ-2AnswerDate RecordedPatient Health Questionnaire-2 Trmbu409Finmckay-dee hospital center [place] of Occupational Health - Occupational Stress QuestionnaireAnswerDate RecordedDo you feel stress - tense, restless, nervous, or anxious, or unable to sleep at night because yourmind is troubled all the time - these days?To some epvcck0806/04/2023 Exercise Vital SignAnswerDate RecordedOn average, how many [...] steady place to sleep or slept in [place] (including now)?No06/04/2023Sex and Gender InformationValueDate RecordedSex Assigned at BirthNot on fileLegal KtlBnrw8911/25/2022 6:55 PM EDT Gender IdentityNot on fileSexual OrientationNot on filedocumented as of this encounter Miscellaneous Notes * Telephone Encounter - BUCK PUTNAM - 08/21/2025 8:04 AM EST Patient called and stated that she already called the ambulance and they are on there way. * Telephone Encounter - BUCK PUTNAM - 08/21/2025 7:35 AM EST tried to call and patient girlfriend is calling again 25 mins Patient girlfriend is going to take him to [place]. Patient girlfriend called again and stated that she is going to just call the ambulance and take him to the hospital. LINING REPAIRER Lyndsey Geiger called and she is aware of what is going on with the patient and agrees that he has to go through the ER way. * Telephone Encounter - BUCK PUTNAM - 08/21/2025 6:24 AM EST Patient girlfriend is calling and stated that he saw the provider yesterday. He has a bad infectionin his throat. She stated that Dr. Knowles told them that if he can't take the medication that he givens him that he would have to be admitted to the hospital. The girlfriend stated that he tried but couldn't get it down. Patient throw up when he tried to take the medication. documented in this encounter Plan of Treatment Not on file documented as of this encounter Visit Diagnoses Not on filedocumented in this encounter Care Teams Team MemberRelationshipSpecialtyStart DateEnd Date Mono Knowles MD [address] [facility] [address] [place] [address] PCP - Jonathan FLORES09/13/21 Mono Knowles MD [address] [facility] 110 [place] [address] PCP - GeneralInternal Medicine03/01/23 Ruth Johnston LPN [address] [facility] [address] [place] [address] 08/20/25documented as of this encounter
--- OUTSIDE RECORDS SUMMARY | 2025-09-02 14:03 | XMS_ITS | Encounter Summary ---
Author Organization [facility] Address [address] [place] [address] Care Team Providers Care Crown And Bridge Technician Name Role Phone Mono Knowles MD Unavailable [phone] Mono Knowles MD Primary Care Provider [phone] Ruth Johnston LPN Unavailable Encounter Details DateTypeDepartmentCare Team (Latest Contact Info)Kdkyowwqkhj67/08/2025Bamboo flowsheet [facility] [address] [place] [phone] Mono Knowles MD [address] [place], [place] [address] Social History Tobacco UseTypesPacks/DayYears UsedDateSmoking Tobacco: FormerCigarettesQuit: 09/13/2000Smokeless Tobacco: Never Comments:Quit smoking 10 yea rs ago Alcohol UseStandard Drinks/WeekCommentsNever0 (1 standard drink = 0.6 oz pure alcohol)Caffeine 1-2 cups/fdfA5060 Health LiteracyAnswerDate RecordedHow often do you need to have someone help you when you read instructions, pamphlets, or other written material from your doctor or pharmacy?Qzxnodvvy48/03/2024 Humiliation, Afraid, Rape, and Kick questionnaireAnswerDate RecordedWithin [...] relatives?Once a week06/04/2023How often do you attend pentecostal or gnosticist services?More than 4 times per year06/04/2023o you belong to any clubs or organizations such as pentecostal groups, unions, fraEdfolio or athletic groups, or school groups?No 06/04/2023How often do you attend meetings of the clubs or organizations you belong to?Never06/04/2023re you , , , , never , or living with a partner?Living with gspnsdk8306/04/2023UDIT-CAnswerDate RecordedQ1: How often do you have a [...] heating?Not hard at all06/04/2023HQ-2AnswerDate RecordedPatient Health Questionnaire-2 Koubd663Finbeaver valley hospital [place] of Occupational Health - Occupational Stress QuestionnaireAnswerDate RecordedDo you feel stress - tense, restless, nervous, or anxious, or unable to sleep at night because yourmind is troubled all the time - these days?To some zoyviz7806/04/2023 Exercise Vital SignAnswerDate RecordedOn average, how many [...] steady place to sleep or slept in [facility] (including now)?No06/04/2023Sex and Gender InformationValueDate RecordedSex Assigned at BirthNot on fileLegal BogJjqg6211/25/2022 6:55 PM EDT Gender IdentityNot on fileSexual OrientationNot on filedocumented as of this encounter Plan of Treatment Not on file documented as of this encounter Visit Diagnoses Not on filedocumented in this encounter Care Teams Team MemberRelationshipSpecialtyStart DateEnd Date Mono Knowles MD [address] [facility] [address] [place] [address] PCP - Jonathan FLORES09/13/21 Mono Knowles MD [address] [facility] [address] [place] [address] PCP - GeneralInternal Medicine03/01/23 Ruth Johnston LPN [address] [facility] [address] [place] [address] 08/20/25documented as of this encounter
--- OUTSIDE RECORDS SUMMARY | 2025-09-02 14:03 | XMS_ITS | Encounter Summary ---
Author Organization [facility] Address [address] [facility] [place] [address] Care Team Providers Care Mid Level Developer Name Role Phone Mono Knowles MD Unavailable [phone] Mono Knowles MD Primary Care Provider [phone] Ruth Johnston LPN Unavailable Encounter Details DateTypeDepartmentCare Team (Latest Contact Info)Anhkraewnim21/17/2025bstract [facility] [address] [place] [phone] Mono Knowles MD [address] [place] [address] Social History Tobacco UseTypesPacks/DayYears UsedDateSmoking Tobacco: FormerCigarettesQuit: 09/13/2000Smokeless Tobacco: Never Comments:Quit smoking 10 yea rs ago Alcohol UseStandard Drinks/WeekCommentsNever0 (1 standard drink = 0.6 oz pure alcohol)Caffeine 1-2 cups/yzkZ1123 Health LiteracyAnswerDate RecordedHow often do you need to have someone help you when you read instructions, pamphlets, or other written material from your doctor or pharmacy?Pnfgomamg43/03/2024 Humiliation, Afraid, Rape, and Kick questionnaireAnswerDate RecordedWithin [...] relatives?Once a week06/04/2023How often do you attend confucianism or jainism services?More than 4 times per year06/04/2023o you belong to any clubs or organizations such as confucianism groups, unions, fraThoughtful Media or athletic groups, or school groups?No 06/04/2023How often do you attend meetings of the clubs or organizations you belong to?Never06/04/2023re you , , , , never , or living with a partner?Living with tgribjj1906/04/2023UDIT-CAnswerDate RecordedQ1: How often do you have a [...] heating?Not hard at all06/04/2023HQ-2AnswerDate RecordedPatient Health Questionnaire-2 Suhep767Finjordan [facility] medical [facility] [place] of Occupational Health - Occupational Stress QuestionnaireAnswerDate RecordedDo you feel stress - tense, restless, nervous, or anxious, or unable to sleep at night because yourmind is troubled all the time - these days?To some usatxi4106/04/2023 Exercise Vital SignAnswerDate RecordedOn average, how many [...] steady place to sleep or slept in [place] (including now)?No06/04/2023Sex and Gender InformationValueDate RecordedSex Assigned at BirthNot on fileLegal PmdNnni0911/25/2022 6:55 PM EDT Gender IdentityNot on fileSexual OrientationNot on filedocumented as of this encounter Plan of Treatment Not on file documented as of this encounter Visit Diagnoses Not on filedocumented in this encounter Care Teams Team MemberRelationshipSpecialtyStart DateEnd Date Mono Knowles MD [address] [facility] [address] [place] [address] PCP - Jonathan FLORES09/13/21 Mono Knowles MD [address] [facility] [address] [place] [address] PCP - GeneralInternal Medicine03/01/23 Ruth Johnston LPN [address] [facility] [address] [place] [address] 08/20/25documented as of this encounter
--- OUTSIDE RECORDS SUMMARY | 2025-09-02 14:04 | XMS_ITS | Clinical Summary ---
Author Organization [facility] Address [address], [address] [place] [address] Care Team Providers Care Lobby Porter Name Role Phone Mono Knolwes MD Primary Care Provider Allergies No known active allergies Medications MedicationSigDispense [...] tablet 6009/23/2013ctive Active Problems ProblemNoted DateDiagnosed DateUnstable tdxyaa5909/22/2013 Overview (09/22/2013): Transfer [facility] HTN (hypertension)09/22/20136217Jmtjqvyrspwppn56/10/2014Stented coronary artery 09/22/2013 Overview (09/22/2013): VANGIE in mid LAd Family History Medical HistoryRelationNameCommentsArthritisMotherHeart DiseaseMotherRelation NameStatusCommentsMother Social History Tobacco UseTypesPacks/DayYears UsedDateSmoking Tobacco: NeverAlcohol UseStandard Drinks/WeekCommentsNo0 (1 standard drink = 0.6 oz pure alcohol)Sex and Gender InformationValueDate RecordedSex Assigned at BirthNot on fileLegal SexMale 10/23/2012 12:56 PM ESTGender IdentityNot on fileSexual OrientationNot on file Last Filed Vital Signs Vital SignReadingTime TakenCommentsBlood Jsnzpate463/7001 11:15 AM EST Fakpk988709/30/2013 11:15 AM YPMDdyhoyvaijq31.9 ??C (98.4 ??F)05/03/2020 9:29 AM EDTRespiratory Gazz043509/30/2013 11:15 AM ESTOxygen Pdemjgjcbr13%09/30/2013 11:15 AM ESTInhaled Oxygen Concentration--Rbpzzk46.9 kg (185 lb)05/03/2020 9:29 AM EDT Fgzyip748.6 cm (5' 6 )05/03/2020 9:29 AM EDTBody Mass Index29.8605/03/2020 9:29 AM EDT Plan of Treatment Not on file Insurance * Guarantor: Rosina Escobedo TypeRelation to PatientDate of BirthPhone Billing AddressPersonal/GlnkwtRcvl51/20/1946 [address] [address] * Guarantor: Dale Escobedount TypeRelation to PatientDate of BirthPhone Billing AddressPersonal/EpzgxbWqpr61/20/1946 [address] [address] Advance Directives * Full Code (Latest Code Status on File) Date ActivatedDate InactivatedComments09/22/2013 5:57 PM09/23/2013 6:43 PM Care Teams Team MemberRelationshipSpecialtyStart DateEnd Date Mono Knowles MD PCP - GeneralInternal Medicine05/03/20
--- OUTSIDE RECORDS SUMMARY | 2025-09-02 14:04 | XMS_ITS ---
Author Organization [facility] Address [address] [place] [address] Care Team Providers Care Card Clothier Name Role Phone Mono Knowles MD Unavailable [phone] Mono Knowles MD Primary Care Provider [phone] Ruth Johnston LPN Unavailable Jail Facility Transitional Care Management Status:Enrolled (Active) Start date:08/24/2025 Enrollment date:08/28/2025 Enrollment reason:Identified using hospital discharge data Overview Patient discharged from [facility] on 08/24. Patient admitted to [facility]. Please contact SNF facility for DANNY (inpt to SNF) within 48 hours. NameMike Millard LPN(Responsible Staff)Licensed Practical [phone] Continued Care and Services Coordination
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
[2025-09-02 14:09] LABS: SARS-CoV-2 Ag NEGATIVE (NEGATIVE)
--- NOTE | 2025-09-02 14:19 | CT_ITS ---
The [address] [address] Patient Name: TAJ RING MRN: [id number] date: 1945 Sex: M Assigned Patient Location: ED.MAIN Current Patient Location: ED.MAIN Accession/Order Number: [id number] Exam Date: 09/02/2025 14:45 Report Date: 09/02/2025 15:01 At the request of: WILMAN JAIMES MD Procedure: CT head/brain wo con CT BRAIN WITHOUT CONTRAST: CLINICAL HISTORY: Altered mental status COMPARISON: CT brain 08/24/2025 TECHNIQUE: Contiguous axial unenhanced images were obtained through the brain. This CT exam was performed using one or more following dose reduction techniques: Automated exposure control, adjustment of the mA and/or kV according to patient size, or use of iterative reconstruction technique. FINDINGS: There is no evidence of midline shift, intra or extra-axial fluid collection, hemorrhage or CT evidence of stroke. Cortical atrophy with chronic microvascular ischemic changes. Posterior fossa appears unremarkable. Visualized intraorbital contents demonstrate no acute findings. Visualized paranasal sinuses are clear. The surrounding soft tissues are normal. CT/CT head/brain wo con IMPRESSION: NO ACUTE INTRACRANIAL ABNORMALITY. Impression dictated by: Vu Ramirez Jr., D.O. 09/02/2025 3:01 PM Dictation Location: [place] [address] Electronically authenticated by: [id number] Y Date: 09/02/2025 15:01
[2025-09-02 14:26] LABS: Anion Gap 15.6; Blood Urea Nitrogen 22.0 mg/dL (7.0-18.0); Calcium 8.7 mg/dL (8.5-10.1); Carbon Dioxide 27.8 mmol/L (21.0-32.0); Chloride 107 mmol/L (98-107); Estimated GFR (African America 51 (>=60 mL/min/1.73m^2); Estimated GFR (Non-African Ame 42 (>=60 mL/min/1.73m^2); Glucose 110 mg/dL (74-106); Potassium 4.4 mmol/L (3.5-5.1); Sodium 146 mmol/L (136-145)
[2025-09-02 14:33] LABS: NT Pro B Type Natriuretic Pept 103.0 pg/mL (<=1800.0)
[2025-09-02 15:28] LABS: Glucose Urine UA NEGATIVE (NEGATIVE)
[2025-09-02 15:47] LABS: Cast Seen? NONE SEEN #/LPF (NONE SEEN); Crystals Seen? None Seen #/HPF (None Seen); Urine Culture Indicated NO
--- NOTE | 2025-09-02 16:37 | CT_ITS ---
The [address] [address] Patient Name: TAJ RING MRN: [id number] date: 1945 Sex: M Assigned Patient Location: ER Current Patient Location: ER Accession/Order Number: [id number] Exam Date: 09/02/2025 16:45 Report Date: 09/02/2025 18:09 At the request of: WILMAN JAIMES MD Procedure: CT abdomen pelvis w con CT ABDOMEN AND PELVIS WITH INTRAVENOUS CONTRAST: CLINICAL HISTORY: fall COMPARISON: CT abdomen and pelvis 10/24/2023 TECHNIQUE: Spiral images were obtained through the abdomen and pelvis following the administration of intravenous contrast. This CT exam was performed using one or more following dose reduction techniques: Automated exposure control, adjustment of the mA and/or kV according to patient size, or use of iterative reconstruction technique. FINDINGS: Lung Bases: [Bibasilar atelectasis.] Organs:Liver gallbladder portal vein pancreas spleen and adrenal glands appear unremarkable. No enhancing renal mass or hydronephrosis. Aorta appears normal in caliber.[ GI: Stomach is grossly unremarkable. Small bowel appears nondilated. Duodenal diverticulum. Colonic diverticulosis.[ Pelvis:[Suboptimal evaluation due to streak hardware artifact from the patient's right hip hardware. Urinary bladder and prostate gland appear unremarkable.] Peritoneum/Retroperitoneum:No free air, free fluid or lymphadenopathy.[ Abd wall/Bones:Abdominal wall demonstrates no acute findings. Osseous structures demonstrate degenerative change.[Avascular necrosis left hip. CT/CT abdomen pelvis w con IMPRESSION: No acute process. Impression dictated by: Stephanie Landry Jr.ODevon 09/02/2025 6:09 PM Dictation Location: [employer] Electronically authenticated by: [id number] Y Date: 09/02/2025 18:09
--- NOTE | 2025-09-02 16:37 | CT_ITS ---
The [address] [address] Patient Name: TAJ RING MRN: [id number] date: 1945 Sex: M Assigned Patient Location: ER Current Patient Location: ER Accession/Order Number: [id number] Exam Date: 09/02/2025 16:45 Report Date: 09/02/2025 18:06 At the request of: WILMAN JAIMES MD Procedure: CT cervical spine wo con CT BRAIN WITHOUT CONTRAST: CLINICAL HISTORY: Fall. Hit back of head. COMPARISON: CT brain performed earlier today TECHNIQUE: Contiguous axial unenhanced images were obtained through the brain. This CT exam was performed using one or more following dose reduction techniques: Automated exposure control, adjustment of the mA and/or kV according to patient size, or use of iterative reconstruction technique. FINDINGS: There is no evidence of midline shift, intra or extra-axial fluid collection, hemorrhage or CT evidence of stroke. Cortical atrophy with chronic microvascular ischemic changes similar to the prior study. Posterior fossa appears unremarkable. Visualized intraorbital contents appear unremarkable. Visualized paranasal sinuses are clear. The surrounding soft tissues are normal. CT/CT cervical spine wo con IMPRESSION: NO ACUTE INTRACRANIAL ABNORMALITY. CT CERVICAL SPINE WITHOUT CONTRAST WITH 3D RECONSTRUCTIONS: COMPARISON: CT cervical spine 08/23/2025 TECHNIQUE: Spiral axial unenhanced images were obtained through the cervical spine. Sagittal, coronal and 3D volume-rendered reconstructions were also reviewed. This CT exam was performed using one or more following dose reduction techniques: Automated exposure control, adjustment of the mA and/or kV according to patient size, or use of iterative reconstruction technique. FINDINGS: No fracture. Anterior fusion hardware C4-5. Diffuse facet joint degenerative changes. Mild spondylosis C6-7. This is unchanged from prior study. No prevertebral soft tissue swelling. IMPRESSION: NO CERVICAL SPINE FRACTURE Impression dictated by: Vu Ramirez Jr., D.O. 09/02/2025 6:06 PM Dictation Location: [place] [address] Electronically authenticated by: [id number] Y Date: 09/02/2025 18:06
--- NOTE | 2025-09-02 16:37 | CT_ITS ---
The [address] [address] Patient Name: TAJ RING MRN: [id number] date: 1945 Sex: M Assigned Patient Location: ER Current Patient Location: ER Accession/Order Number: [id number] Exam Date: 09/02/2025 16:45 Report Date: 09/02/2025 18:06 At the request of: WILMAN JAIMES MD Procedure: CT cervical spine wo con CT BRAIN WITHOUT CONTRAST: CLINICAL HISTORY: Fall. Hit back of head. COMPARISON: CT brain performed earlier today TECHNIQUE: Contiguous axial unenhanced images were obtained through the brain. This CT exam was performed using one or more following dose reduction techniques: Automated exposure control, adjustment of the mA and/or kV according to patient size, or use of iterative reconstruction technique. FINDINGS: There is no evidence of midline shift, intra or extra-axial fluid collection, hemorrhage or CT evidence of stroke. Cortical atrophy with chronic microvascular ischemic changes similar to the prior study. Posterior fossa appears unremarkable. Visualized intraorbital contents appear unremarkable. Visualized paranasal sinuses are clear. The surrounding soft tissues are normal. CT/CT head/brain wo con IMPRESSION: NO ACUTE INTRACRANIAL ABNORMALITY. CT CERVICAL SPINE WITHOUT CONTRAST WITH 3D RECONSTRUCTIONS: COMPARISON: CT cervical spine 08/23/2025 TECHNIQUE: Spiral axial unenhanced images were obtained through the cervical spine. Sagittal, coronal and 3D volume-rendered reconstructions were also reviewed. This CT exam was performed using one or more following dose reduction techniques: Automated exposure control, adjustment of the mA and/or kV according to patient size, or use of iterative reconstruction technique. FINDINGS: No fracture. Anterior fusion hardware C4-5. Diffuse facet joint degenerative changes. Mild spondylosis C6-7. This is unchanged from prior study. No prevertebral soft tissue swelling. IMPRESSION: NO CERVICAL SPINE FRACTURE Impression dictated by: Vu Ramirez Jr., D.O. 09/02/2025 6:06 PM Dictation Location: [place] [address] Electronically authenticated by: [id number] Y Date: 09/02/2025 18:06
--- NOTE | 2025-09-02 20:03 | PM.HP ---
HPI H&P: HPI History of Present Illness Chief complaint: CONFUSION Narrative: This is a 79-year-old man who is at a correction facility and got sent in today due to altered mental status. According to the phone conversation I had with the ER doctor on the workup in the emergency room was unrevealing other than finding his creatinine had gone up a little bit from 1.3 up to 1.6. The ER was in the process of trying to send it back to the correction facility. At that point the patient had a fall off of the ER cot. The ER did do a CT scan of his head, cervical spine, and abdomen and pelvis which did not find any major injury. But with all of this going on it was felt that the patient should be monitored in observation status overnight. The patient was in the hospital here just a couple weeks ago where he got a neurologic workup including MRI of the brain. Nursing staff here know him to be able to have waxing and waning of his cognition and appropriateness off and on which has been a routine problem for him for a long time. When he was in the hospital recently he was treated for oral thrush with a short course of Diflucan. When I go down to see this patient in ER room 4 he does have a sitter in the room with him. He is babbling to himself and mostly unintelligible words when I first start talking to him. He mention something about going upside down when I am talking to him and I think he is talking about the fall. But then when I begin asking a more direct questions about his symptoms he is able to answer these fairly well. He denies any cough. Denies any chest pain. He denies any shortness of breath. Denies any confusion. He denies any fevers or chills. When I questioned him about bodily injury he points appropriately to his left upper arm where he has a couple tiny soft mild abrasions on his skin and he does motion to his right lower flank where he has about a 8 cm in diameter light red abrasion, as if somebody had sat down a little too hard against the side of a couch. Other than that on my rapid trauma style examination I cannot find any other evidence of injury. Opioid HPI Opioid Management Most Recent Pain and Opioid Data: Last Pain Scale 5 08/24/25, 12:40 Last Pain Intensity 5 08/24/25, 12:40 Last ORT Total Score 0 Today, 20:07 Last ORT Risk Category Low Risk Today, 20:07 Review of Systems ROS Narrative A 10 point review of systems is negative. 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, unspecified degree (ICD-10) Stroke ?I63.9 - Cerebral infarction, unspecified (ICD-10) Syncope ?R55 - Syncope and collapse (ICD-10) Seizure disorder ?G40.909 - Epilepsy, unspecified, not intractable, without status epilepticus (ICD-10) CAD (coronary artery disease) ?I25.10 - Atherosclerotic heart disease of [place] coronary artery without angina pectoris (ICD-10) Surgical History H/O heart artery stent ?Z95.5 - Presence of coronary angioplasty implant and graft (ICD-10) Social History Within the past year, how often did you have a drink containing alcohol: never Within the past year, how often did you have six or more drinks on one occasion: never Score interpretation: A score less than 4 is consistent with normal alcohol consumption. Smoking status: Former smoker Non-prescribed substance use: denies use Previous occupational history: Retired from [employer]. Highest level of school completed/degree received: 12th grade, no diploma Do you want help with school or training: No Are you now , , , , never or living with a partner: In a typical week, how many times do you talk on the telephone with family, friends, or neighbors: 3 or more times per week How often do you get together with friends or relatives: 3 or more times per week How often do you attend jain or latter-day services: 1-3 times per year Do you belong to any clubs or organizations such as jain groups unions, fraternal or athletic groups, or school groups: no Total score: 1 Score interpretation: A score of less than or equal to 1 indicates the most socially isolated. Little interest or pleasure in doing things: not at all Feeling down, depressed, or hopeless: not at all Feel stressed/tense/nervous/anxious/difficulty sleeping: not at all Due to disability, difficulty making decisions: No Do you think of yourself as: straight/heterosexual Gender Identity: male Meds Home Medications and Allergies Home Medications ?Medication ?Instructions ?Recorded ?Confirmed ?Type pantoprazole 40 mg tablet,delayed 40 mg PO DAILY #30 tabs 10/24/23 09/02/25 Rx release (Protonix) allopurinol 100 mg tablet 100 mg PO DAILY 06/21/24 09/02/25 History gabapentin 300 mg capsule 300 mg PO BEDTIME 06/21/24 09/02/25 History simvastatin 40 mg tablet 40 mg PO BEDTIME 06/21/24 09/02/25 History clopidogrel 75 mg tablet 75 mg PO DAILY 05/26/25 09/02/25 History amlodipine 2.5 mg tablet 2.5 mg PO DAILY 06/27/25 09/02/25 History meclizine 25 mg tablet 25 mg PO TID PRN dizziness 06/27/25 09/02/25 History sucralfate 1 gram tablet 1 g PO TID 06/27/25 09/02/25 History carvedilol 25 mg tablet 25 mg PO Q12H 08/21/25 09/02/25 History colchicine 0.6 mg capsule 0.6 mg PO .MWF 08/21/25 09/02/25 History famotidine 20 mg tablet (Pepcid) 20 mg PO BID #20 tabs 08/21/25 09/02/25 Rx meloxicam 7.5 mg tablet 7.5 mg PO .QD 08/22/25 09/02/25 History zolpidem 10 mg tablet 10 mg PO .QHS 08/22/25 09/02/25 History hydrocodone 10 mg-acetaminophen 1 tab PO Q6H PRN pain 08/23/25 09/02/25 History 325 mg tablet nitroglycerin 0.4 mg sublingual 0.4 mg sublingual Q5M PRN chest 08/23/25 09/02/25 History tablet pain alprazolam 0.5 mg tablet 0.5 mg PO BID 2 days #4 tabs 08/24/25 09/02/25 Rx aluminum-mag hydroxide-simethicone 30 ml PO Q4H PRN Sore Throat 15 08/24/25 09/02/25 Rx 200 mg-200 mg-20 mg/5 mL oral susp days #3,000 mL (Mag-Al Plus) lidocaine HCl 2 % mucosal solution 15 ml PO Q4H PRN Sore Throat #100 08/24/25 09/02/25 Rx mL triamcinolone acetonide 0.1 % 1 applic topical TID #80 grams 08/24/25 09/02/25 Rx topical cream Allergies Allergy/AdvReac Type Severity Reaction Status Date / Time No Known Drug Allergies Allergy Verified 09/02/25 13:30 Exam Narrative Exam Narrative: Seen in ER bay #4, a sitter is in the room with him. He is lying flat on the cart. No family is with him. Neurologic: He is awake. He is alert. He does make eye contact. He mostly is babbling about nonsensical things but then he can answer my direct questions correctly. Cranial nerves II through XII are grossly intact without any deficit. He moves all 4 extremities well without any gross neurologic deficit. Skin: All of his skin is normal without any systemic rashes. On his right upper arm on the inside part there are a couple of slightly reddish [place] where he likely got bumped on the skin in the fall, which I suspect was more of him slumping off of the ER cart. Also, on his lower flank on the right side, just above the pelvic brim, is circular region about 8 cm in diameter of light red mild surface abrasion to his skin. There is no deep hematoma under this. It really actually is not even painful to palpation. Musculoskeletal exam: On my rapid trauma style exam he has no painful areas to his head. No painful areas up and down his cervical spine. Both shoulders are normal. Both shoulders have good range of motion without any pain or restriction. Both elbows and wrists and all of the fingers on his hands have motion intact without any painful areas. Palpating on his anterior ribs and the sternum there is no painful areas. Rolling him from [id number] and palpating down his thoracic and lumbar and over the sacrum he has no pain. Rocking the pelvis he has no pain. He is able to bend his knees and flex his ankles without any pain. Pulmonary: Clear to auscultation throughout. Respirations are calm and easy. No wheezing. Cardiac: Normal auscultation. No murmurs. GI: Slightly protuberant abdomen. Everything is entirely soft and nontender to palpation. No evidence of trauma to his anterior abdominal compartment. Bowel sounds are normal to auscultation. Neck: Thyroid is smooth. No lymphadenopathy. To flexion and extension and sidebending both directions the neck is supple. No meningismus. No pain on movement of his neck. Mouth: Edentulous on top. Not wearing dentures. Edentulous on the bottom. Tongue is without trauma. Lips are without trauma. I do not see any evidence of thrush so the thrush that he had in the last hospital stay must of healed up really nicely. Eyes: EOMI. PERRLA. Nose: No trauma. External nasal structures normal. Ears: External ear structures are normal. No evidence of trauma. Constitutional Vital Signs, click to edit/add: Last Vital Signs Temp 98.6 F 09/02/25 13:25 Pulse 89 09/02/25 16:30 Resp 17 09/02/25 16:30 BP 148/99 H 09/02/25 18:31 Pulse Ox 97 09/02/25 18:50 O2 Del Method Room Air 09/02/25 13:53 Results Labs Labs: Short CBC 09/02/25 Range/Units 13:40 WBC 8.1 (4.0-11.0) 10^3/uL Hgb 13.8 L (14.0-18.0) g/dL Hct 42.7 (42.0-54.0) % Plt Count 230 (150-450) 10^3/uL BMP 09/02/25 13:40 Sodium 146 H Potassium 4.4 Chloride 107 Carbon Dioxide 27.8 BUN 22.0 H Creatinine 1.60 H Glucose 110 H Calcium 8.7 Urine 09/02/25 Range/Units 15:12 Urine Color Lt. yellow (YELLOW) Urine Clarity Clear (CLEAR) Urine pH 5.5 (5.0-9.0) Ur Specific [place] 1.025 (1.005-1.025) Urine Protein Negative (NEG/TRACE) mg/dL Urine Glucose (UA) Negative (NEGATIVE) mg/dL Assessment and Plan Assessment and Plan (1) Fall: Plan Assessment: This is a 79-year-old man who appears to have slept off of the ER cot to the floor in the ER today. He has the appearance of advancing dementia going from moderate to severe dementia and not able to care for himself. He already was at a correction facility. He recently had oral thrush. This seems to be well-healed after completing a short course of Diflucan. On the previous hospital stay with the last couple weeks he did have an MRI of his brain when his speech seemed to be abnormal for short period of time. There is polypharmacy and some medications on his home medication list which are probably not needed in the long run. He is listed as taking both meloxicam and Celebrex. I favor stopping the meloxicam and gradually maximizing his Celebrex dose in the long-term. He is on Pepcid 20 mg p.o. twice daily. I favor stopping this to reduce his anticholinergic burden. He already is taking a proton pump inhibitor. He also is listed is taking meclizine as needed for dizziness. Unless he is having true vertigo I favor stopping this to reduce his anticholinergic burden. He is listed as taking 2.5 mg of amlodipine and 40 mg of Zocor, which interact with each other. I favor switching him to 20 mg of Lipitor as it has less drug to drug interactions and I have made that change. In the long run he should be gently titrated down he is hydrocodone, which she has picked up regularly for a long time and also his Xanax, given the evidence of advancing dementia and the risk of these medications in the long run. Also, in the long run, his zolpidem should also be gradually titrated down with a goal to get him off of it. Plan: Placement into the hospital overnight in observation status. Consult to physical therapy. Consult Occupational Therapy. Consult to case management to work on his discharge plan during the daytime hours. I am ordering nystatin swish and swallow which I think would be reasonable for him to use for about a week to make sure that there is no residual thrush and hopefully he does not need Diflucan anymore. Given his slightly elevated creatinine I favor giving 1 L of lactated Ringer's overnight and rechecking his labs with a creatinine in the morning. Checking a creatinine phosphokinase, hopefully adding this on the labs that were done in the ER now and in the morning. The patient should have a sitter as needed to help avoid having him have additional falls. Urinary Catheter Management Urinary Catheter Management Straight: Cath placed during this visit: yes Urethral indwelling: No Insertion date: 09/02/25 Insertion time: 15:14
[2025-09-02 20:19] LABS: Creatine Kinase 102 U/L (39-308)
[2025-09-02] MEDS: CARVEDILOL 25 MG TABLET PO (22:09)
[2025-09-02] MEDS: NYSTATIN 500,000 UNIT/5 ML ORAL.SUSP 500000 UNIT PO (22:09)
[2025-09-02] MEDS: ALPRAZOLAM 0.5 MG TABLET PO (22:10)
[2025-09-02] MEDS: GABAPENTIN 300 MG CAPSULE PO (22:10)
[2025-09-02] MEDS: ATORVASTATIN CALCIUM 20 MG TABLET PO (22:10)
[2025-09-02] MEDS: ZOLPIDEM TARTRATE 10 MG TABLET PO (22:10)
[2025-09-03 04:00] VITALS: BP 129/85; PULSE 72; TEMP 36.6; O2SAT 92
[2025-09-03 05:30] LABS: Hematocrit 37.7 % (42.0-54.0); Hemoglobin 12.3 g/dL (14.0-18.0); Immature Granulocytes Abs Auto 0.06 10^3/uL (0.00-0.03); Immature Granulocytes Pct Auto 0.9 % (0.0-0.5); Lymphocytes Absolute Auto 2.0 10^3/uL (1.2-3.8); Mean Corpuscular HGB Conc 32.6 g/dL (29.9-35.2); Mean Corpuscular Hemoglobin 29.3 pg (25.9-34.0); Mean Corpuscular Volume 89.8 fL (80.0-94.0); Platelet Count 193 10^3/uL (150-450); Red Blood Count 4.20 10^6/uL (4.70-6.10); White Blood Count 7.0 10^3/uL (4.0-11.0)
[2025-09-03 05:42] LABS: Anion Gap 9.5; Blood Urea Nitrogen 16.0 mg/dL (7.0-18.0); Calcium 8.4 mg/dL (8.5-10.1); Carbon Dioxide 30.5 mmol/L (21.0-32.0); Chloride 110 mmol/L (98-107); Estimated GFR (African America >60 (>=60 mL/min/1.73m^2); Estimated GFR (Non-African Ame 59 (>=60 mL/min/1.73m^2); Glucose 99 mg/dL (74-106); Potassium 4.0 mmol/L (3.5-5.1); Sodium 146 mmol/L (136-145)
[2025-09-03 05:51] LABS: INR 1.04; Partial Thromboplastin Time 30.2 sec (22.3-36.2); Prothrombin Time 10.9 sec (9.0-11.6)
[2025-09-03 05:59] LABS: Creatine Kinase 95 U/L (39-308)
[2025-09-03] MEDS: NYSTATIN 500,000 UNIT/5 ML ORAL.SUSP 500000 UNIT PO ×3 (05:59→19:02)
[2025-09-03 07:40] VITALS: BP 144/84; PULSE 78; TEMP 36.6; O2SAT 94
--- NOTE | 2025-09-03 07:50 | CM.NOTE ---
Rounds made with Dr. Loera, discussed with pt plan of care. Possible transfer back to [facility] today, SW will call [facility]. Pt is OBS status and less than 24 hours, SW will clarify if pt will need precert to return.
--- NOTE | 2025-09-03 09:01 | SWNOTE1 ---
Pt came from the [facility]. Pt is in observation status and has 24 hours to return without being precerted. SW called [facility] and asked what time pt left the building. SW informed it was 1:12PM. SW updated case management.
[2025-09-03] MEDS: CLOPIDOGREL BISULFATE 75 MG TABLET PO (09:45)
[2025-09-03] MEDS: AMLODIPINE BESYLATE 5 MG TABLET 2.5 MG PO (09:45)
[2025-09-03] MEDS: CARVEDILOL 25 MG TABLET PO (09:45)
[2025-09-03] MEDS: COLCHICINE 0.6 MG TABLET PO (09:46)
[2025-09-03] MEDS: ALLOPURINOL 100 MG TABLET PO (09:46)
[2025-09-03] MEDS: ACETAMINOPHEN 325 MG TABLET 650 MG PO (09:46)
[2025-09-03] MEDS: ALPRAZOLAM 0.5 MG TABLET PO (09:46)
[2025-09-03] MEDS: PANTOPRAZOLE SODIUM 40 MG TABLET.DR PO (09:46)
--- NOTE | 2025-09-03 10:10 | CM.NOTE ---
CRESENCIO spoke with pt's girlfriend regarding questions she has regarding [facility]. Girlfriend concerned about his confusion and need for CT scan of the brain. CRESENCIO will speak with Dr. Loera regarding her concerns.
--- NOTE | 2025-09-03 10:48 | SWNOTE1 ---
Pt's significant other Peace has called CM, nurse, and SW with concerns about pt. At this time pt may not be discharged today. MAKSIM called Peace to discuss dc plans. Peace is concerned about his confusion and wants his head to be scanned. MAKSIM did assure her that the physician will review his chart and then SW or CM will update her. MAKSIM did have a long in depth discussion with Peace in regards to the reality of pt being able to return home. MAKSIM explained that pt is having a decline over the past few months. SW let her know that pt has been in and out of hospital several times in the last few months. He really needs to be at a nursing facility terminal computer [facility] so he is surrounded by nursing and people that can assist with his care. Peace voiced she is worried about never seeing him again. MAKSIM explained to her that she can visit him daily for as long as she wants to. MAKSIM explained she can go to the dining room with him and be at the long term until bed time. Peace did voiced she wants him in [place] since she is not able to drive and her friend does not like to drive in the evening. She also wants to speak with pt's son. MAKSIM did tell Peace to call his son once we hang up to discuss. MAKSIM advised that SW has spoke to pt's son several times and he is in agreement with terminal computer operator. Peace did ask about his social security check. MAKSIM explained that it will likely go to the long term and the Medicaid will cover his chcf care. MAKSIM explained that a SW at the nursing facility will explain in more depth. Peace did ask about facilities in [place]. MAKSIM explained there are 3 that take Medicaid. [facility], [facility], and [facility] take Medicaid terminal computer operator. Peace would like [facility]. She did ask about [facility], but they do not take Medicaid chcf. Peace voiced she would like [facility]. Peace is going to talk to pt's son and call SW back. SW to speak with pt as well.
--- NOTE | 2025-09-03 10:58 | SWNOTE1 ---
Addendum entered by Kristie Meza 09/03/25 11:00: Referral sent to [facility]. Original Note: Referral sent to__. Referral included face sheet, ED note, H&P, provider notes, case management report, nursing notes, diagnostic imaging, and med list. SW to send PT/POT evals once completed.
--- NOTE | 2025-09-03 11:11 | PM.PN ---
Progress Note: Subjective Subjective Interval history: Followed by the patient. No chest pain. No abdominal pain. The patient is unable to void. Davenport catheter was placed in. More than 800 mL of urine came out. Exam Narrative Exam Narrative: Patient is sitting in bed. Able to answer questions. Cognitive impairment is noted. Moderate functional impairment is also noted. No distress. Chest is clear, heart is regular. Abdomen is soft. Suprapubic discomfort Constitutional Vital Signs, click to edit/add: Last Vital Signs Temp 97.8 F 09/03/25 07:40 Pulse 78 09/03/25 07:40 Resp 18 09/03/25 07:40 BP 144/84 H 09/03/25 07:40 Pulse Ox 94 L 09/03/25 07:40 O2 Del Method Room Air 09/03/25 07:40 Progress Note: Objective Labs Labs: Short CBC 09/02/25 09/03/25 Range/Units 13:40 04:42 WBC 8.1 7.0 (4.0-11.0) 10^3/uL Hgb 13.8 L 12.3 L (14.0-18.0) g/dL Hct 42.7 37.7 L (42.0-54.0) % Plt Count 230 193 (150-450) 10^3/uL BMP 09/02/25 09/03/25 13:40 04:42 Sodium 146 H 146 H Potassium 4.4 4.0 Chloride 107 110 H Carbon Dioxide 27.8 30.5 BUN 22.0 H 16.0 Creatinine 1.60 H 1.20 Glucose 110 H 99 Calcium 8.7 8.4 L Cardiac Enzymes 09/02/25 09/03/25 Range/Units 13:40 04:42 Total Creatine Kinase 102 95 (39-308) U/L Urine 09/02/25 Range/Units 15:12 Urine Color Lt. yellow (YELLOW) Urine Clarity Clear (CLEAR) Urine pH 5.5 (5.0-9.0) Ur Specific [place] 1.025 (1.005-1.025) Urine Protein Negative (NEG/TRACE) mg/dL Urine Glucose (UA) Negative (NEGATIVE) mg/dL Progress Note: A&P Assessment and Plan (1) Fall: Plan IRINA Likely triggered by volume loss, dehydration side effect meloxicam, and urinary retention. Davenport catheter to relieve retention Avoid nephrotoxic agents such as meloxicam. Hypernatremia, likely representing water deficit. Start patient on hypotonic fluid. Urine retention more than 800 mL. Davenport catheter was placed in Start the patient on Flomax. Likely patient will need follow-up with urology. He may need to have cystoscopy and/or urodynamic study and/or prostate evaluation. Altered mental status Likely caused by IRINA, medication side effect such as Pepcid, gabapentin, hydrocodone and alprazolam I am hoping that the effect of these medications will subside now that his kidney function had improved. Avoid opiates and the benzo if all possible. Reduced dose of gabapentin. Cognitive and functional loss. Brain imaging showed brain atrophy and microvascular disease. 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 This could be mixed with other possible neurodegenerative disorder such as senile degeneration versus Alzheimer. Continue aspirin and Plavix. Likely patient will need long-term jail placement given his recurrent decompensation of condition and inability to take care of himself. Chronic, subacute medical conditions not listed above, abnormal labs and imaging, incidental findings seen on labs and or imaging. These would need to be addressed. Could be addressed later on or in the outpatient setting by PCP collaboration with other needed outpatient providers when time and condition are appropriate. Urinary Catheter Management Urinary Catheter Management 2-way Urethral: Cath placed during this visit: no
[2025-09-03] MEDS: HYDROCODONE/ACET 5-325 MG TABLET 1 TAB PO ×2 (12:19→19:03)
[2025-09-03] MEDS: SODIUM CHLORIDE 0.45 % 1,000 ML 70 ML IV (12:19)
[2025-09-03 12:22] VITALS: BP 132/84; PULSE 72; TEMP 36.7; O2SAT 94
--- NOTE | 2025-09-03 12:40 | SWNOTE1 ---
MAKSIM received an email from [facility] at [facility] and [facility] has concerns of the pt having a sitter, being a high fall risk, and no beds in memory care. MAKSIM did express to Ness that pt had a sitter in ED due to the fall, no sitter on med/surge and pt is alert and oriented at this time. MAKSIM did let Ness know that someone from [facility] can do an on site visit if they would like. Ness is reaching out to clinical with the updates MAKSIM shared and will let MAKSIM know.
--- NOTE | 2025-09-03 13:09 | SWNOTE1 ---
MAKSIM received an email from Ness at [facility] and they are not able to accept. Sheila reviewed therapy notes from today and it is documented that pt is throwing things. Clinical team from [facility] will follow up at a later time to see if pt has improved. MAKSIM called Peace and updated her. She said SW will have to speak with pt's son. Pt's son will be coming to the hospital soon so they can discuss further. MAKSIM called pt's son Bubba and he voiced he will be here in 20 mins. SW to speak with him about discharge planning then.
--- NOTE | 2025-09-03 15:09 | SWNOTE1 ---
SW and CM had a conversation with pt's son Bubba in regards to pt's slow decline and likely needing pharmacist aide care. Pt's son in agreement and he prefers pt to be at the [facility] if they can accept Medicaid pharmacist aide. His last resort would be [facility]. SW did let him know that [facility] is not able to accept. SW to check with [facility] and update the son. MAKSIM sent email to [facility] in regards to pharmacist aide care after skilled. [facility] voiced they will have a meeting with family and could take longterm Medicaid. MAKSIM provided her with pt's son number. MAKSIM did ask if precert was started. [facility] confirmed precert started.
--- NOTE | 2025-09-03 15:41 | SWNOTE1 ---
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
--- NOTE | 2025-09-03 15:58 | SWNOTE1 ---
Medicare Outpatient Observation Notice reviewed and discussed with patient's son, Bubba. Bubba verbalized understanding and signed the form. Original placed in pt's room and copy placed in patient?s chart.
[2025-09-03 16:28] VITALS: BP 158/84; PULSE 84; TEMP 36.6; O2SAT 94
[2025-09-03] MEDS: ZIPRASIDONE MESYLATE 20 MG VIAL 10 MG IM (19:56)
[2025-09-03] MEDS: WATER FOR INJECTION, STERILE 20 ML VIAL INJ (19:57)
[2025-09-03 20:00] VITALS: BP 148/92; PULSE 88; TEMP 37; O2SAT 92
[2025-09-04] VITALS (104 sets, daily range): BP systolic 88–154; BP diastolic 66–106; PULSE 87–110; RESP 16; TEMP 36.2–37.7; O2SAT 81–99
[2025-09-04] MEDS: ATORVASTATIN CALCIUM 20 MG TABLET PO
[2025-09-04] MEDS: GABAPENTIN 100 MG CAPSULE PO
[2025-09-04] MEDS: ALPRAZOLAM 0.5 MG TABLET PO
[2025-09-04] MEDS: ZOLPIDEM TARTRATE 10 MG TABLET PO
[2025-09-04] MEDS: NYSTATIN 500,000 UNIT/5 ML ORAL.SUSP 500000 UNIT PO (00:01)
[2025-09-04] MEDS: CARVEDILOL 25 MG TABLET PO (00:03)
--- NOTE | 2025-09-04 04:00 | RESP.RT ---
Pt was on 3L nasal cannula when RT walked in the room. Spo2 in the 80's. Increased nasal cannula up to 6L and Sp02 remained in the 80's. Took pt off of nasal cannula and placed on 100% 15L nonrebreather mask. Sp02 increased to 95%.
--- NOTE | 2025-09-04 04:27 | XR_ITS ---
The [place] [id number] Patient Name: TAJ RING MRN: [id number] date: 1945 Sex: M Assigned Patient Location: MS Current Patient Location: MS Accession/Order Number: [id number] Exam Date: 09/04/2025 04:58 Report Date: 09/04/2025 09:03 At the request of: JOURDAN FAIRCHILD MD Procedure: XR chest 1V PORTABLE AP ERECT CHEST 0439 hours CLINICAL HISTORY: Shortness of breath COMPARISON: 09/02/2025 The heart is within normal limits. There is no vascular congestion. There is shallow inspiration with associated basilar atelectasis. No additional consolidation is seen. There is no effusion or pneumothorax. The osseous structures are intact. End plate spurring is present the spine. There is a cervical fusion plate. XR/XR chest 1V IMPRESSION: SHALLOW INSPIRATION WITH BASILAR ATELECTASIS Impression dictated by: Marylou Ray M.D. 09/04/2025 9:03 AM [facility]ictation [facility] Electron[facility] authenticated by: [id number] Y Date: 09/04/2025 09:03
[2025-09-04 04:54] LABS: ABG PCO2 46.5 mmHg (35.0-45.0); Allen Test POSITIVE (POSITIVE); HCO3 ABG 26.6 mmol/L (22.0-26.0); Oxygen Saturation ABG 94.8 %; PO2 ABG 71.6 mmHg (80.0-100.0)
[2025-09-04 04:55] LABS: Liters per Minute 15; O2 Mode NONREBREATHER; Puncture Site R RAD
[2025-09-04] MEDS: IPRATROPIUM/ALBUTEROL SULFATE 3 ML AMPUL.NEB IH ×5 (05:05→23:50)
[2025-09-04] MEDS: METHYLPREDNISOLONE SOD SUCC PF 125 MG/2 ML VIAL IVP (05:13)
[2025-09-04] MEDS: FUROSEMIDE 40 MG/4 ML VIAL IVP (05:14)
[2025-09-04] MEDS: PIPERACILLIN SODIUM/TAZOBACTAM 3.375 GM in 0.9 % SODIUM CHLORIDE 50 ML IV ×3 (05:14→20:35)
[2025-09-04 05:30] LABS: Hematocrit 43.0 % (42.0-54.0); Hemoglobin 14.2 g/dL (14.0-18.0); Mean Corpuscular HGB Conc 33.0 g/dL (29.9-35.2); Mean Corpuscular Hemoglobin 29.4 pg (25.9-34.0); Mean Corpuscular Volume 89.0 fL (80.0-94.0); Platelet Count 213 10^3/uL (150-450); Red Blood Count 4.83 10^6/uL (4.70-6.10); White Blood Count 12.8 10^3/uL (4.0-11.0)
[2025-09-04 05:49] LABS: Alanine Aminotransferase 25 U/L (16-63); Albumin Globulin Ratio 1.0; Albumin Level 3.7 g/dL (3.4-5.0); Alkaline Phosphatase 94 U/L (46-116); Anion Gap 11.4; Aspartate Amino Transferase 21 U/L (15-37); Blood Urea Nitrogen 13.0 mg/dL (7.0-18.0); Calcium 9.2 mg/dL (8.5-10.1); Carbon Dioxide 29.0 mmol/L (21.0-32.0); Chloride 106 mmol/L (98-107); Estimated GFR (African America >60 (>=60 mL/min/1.73m^2); Estimated GFR (Non-African Ame 58 (>=60 mL/min/1.73m^2); Globulin 3.6 g/dL; Glucose 111 mg/dL (74-106); Potassium 4.4 mmol/L (3.5-5.1); Sodium 142 mmol/L (136-145); Total Protein 7.3 g/dL (6.4-8.2)
--- NOTE | 2025-09-04 08:00 | CM.NOTE ---
Rounds made with Dr. Loera, pt now on BIPAP. Pt opens eyes to speech, not answering questions at this time. Pt will have chest CT and possible brain MRI.
--- NOTE | 2025-09-04 08:20 | REH.PTDLY ---
Physical Therapy Daily Note PT Daily Note/Assess Start: 09/03/25 10:43 Freq: Status: Active Protocol: Document 09/04/25 08:19 HEMA (Rec: 09/04/25 08:20 HEMA [id number]) Visit Not Completed Visit Not Completed Pt level of alertness,Medical instability,Inability to Due to: participate,Nursing request to hold Other Reason Visit Pt on bipap and not doing well, Veronika RN reports pt is Not Completed inappropriate for therapy today. Physical Therapy Daily Note/Assessment Time In 08:18 Time Out 08:20
--- NOTE | 2025-09-04 08:31 | CT_ITS ---
[address] [address] Patient Name: TAJ RING MRN: [id number] date: 1945 Sex: M Assigned Patient Location: Current Patient Location: Accession/Order Number: [id number] Exam Date: 09/04/2025 08:45 Report Date: 09/04/2025 09:13 At the request of: JOURDAN FAIRCHILD MD Procedure: CT angio chest CT PULMONARY ANGIOGRAM WITH CONTRAST CLINICAL HISTORY: Acute hypoxemia r/o PE COMPARISON: None TECHNIQUE: Spiral images were obtained through the chest following intravenous administration of 100 mL of Omnipaque 350. Images were reviewed using both narrow and wide window settings. Sagittal, coronal and 3 D volume-rendered reconstructions were performed and reviewed. This CT exam was performed using one or more following dose reduction techniques: Automated exposure control, adjustment of the mA and/or kV according to patient size, or use of iterative reconstruction technique. FINDINGS: The heart is not enlarged. There is no pericardial effusion. The ascending aorta is slightly ectatic. No dissection is seen. There is adequate opacification of the pulmonary arteries. No central emboli are identified. Assessment of peripheral arterial branches is limited by respiratory motion. A few mediastinal and right hilar lymph nodes are present. There are tiny endplate spurs. Respiratory motion also slightly limits evaluation of lung parenchyma. There is elevation of the right hemidiaphragm. There is consolidation at the right posterior costophrenic angle. There is additional atelectasis at both lung bases. Minor scarring is seen at the lung apices. No pleural effusion or pneumothorax is noted. Limited cuts through the upper abdomen show no contributory abnormality. CT/CT angio chest IMPRESSION: NO OBVIOUS PULMONARY EMBOLISM WITHIN LIMITS OF RESPIRATORY MOTION. Bibasilar probable change, greater on the right Impression dictated by: Marylou Ray M.D. 09/04/2025 9:13 AM Dictation Location: [facility] Electronically authenticated by: [id number] Y Date: 09/04/2025 09:13
--- NOTE | 2025-09-04 08:50 | CM.NOTE ---
Discussed status with Dr. Loera, pt will change to inpatient status.
--- NOTE | 2025-09-04 10:03 | CM.NOTE ---
Lisa (the patient's significant other) called for an update. She was updated on the patient's current status and orders. She stated that she will call back around 1300 to talk to the patient because he was still sleeping when she tried to call.
--- NOTE | 2025-09-04 10:44 | PM.PN ---
Progress Note: Subjective Subjective Interval history: Patient did very well last evening and last check by nursing staff around 11 AM Nurse went to check up on him around 4:15 AM and found him to be hypoxic. Saturation 74%. Patient was placed on oxygen. Oxygen was titrated up to 100% nonrebreather. Saturation was 96%. No witnessed aspiration as per's nurse. I placed patient on BiPAP, I ordered intravenous Zosyn, Lasix and Solu-Medrol. Requested blood gas and chest x-ray. Exam Narrative Exam Narrative: I came and saw patient at 7 AM. Patient is lethargic this morning. Able to open his eyes. Unable to follow command. Patient is on BiPAP. Chest exam is unremarkable, probable basilar rhonchi. Heart is regular, slightly tachycardic. Abdomen is soft. Could not assess for tenderness. Constitutional Vital Signs, click to edit/add: Last Vital Signs Temp 99.9 F 09/04/25 09:17 Pulse 103 H 09/04/25 10:05 Resp 28 H 09/04/25 09:17 BP 120/92 H 09/04/25 09:17 Pulse Ox 93 L 09/04/25 10:05 O2 Del Method BIPAP 09/04/25 10:05 O2 Flow Rate 80 09/04/25 09:17 FiO2 80 09/04/25 10:05 Progress Note: Objective Labs Labs: Short CBC 09/04/25 Range/Units 05:21 WBC 12.8 H (4.0-11.0) 10^3/uL Hgb 14.2 (14.0-18.0) g/dL Hct 43.0 (42.0-54.0) % Plt Count 213 (150-450) 10^3/uL BMP 09/04/25 05:21 Sodium 142 Potassium 4.4 Chloride 106 Carbon Dioxide 29.0 BUN 13.0 Creatinine 1.21 Glucose 111 H Calcium 9.2 Liver Function 09/04/25 Range/Units 05:21 Total Bilirubin 0.8 (0.2-1.0) mg/dL AST 21 (15-37) U/L ALT 25 (16-63) U/L Alkaline Phosphatase 94 (46-116) U/L Albumin 3.7 (3.4-5.0) g/dL Progress Note: A&P Assessment and Plan (1) Fall: Plan Acute hypoxic respiratory failure overnight. Nurse detected hypoxemia at 74% at 4 AM and she contacted me immediately Patient was placed on oxygen which was titrated up to 100% oxygen mask. Subsequently I ordered the blood gas, chest x-ray, Zosyn, Solu-Medrol and Lasix. I came to see him this morning at 7:00. Patient is lethargic. Chest x-ray is unremarkable ABGs showed mild hypercapnia but significant hypoxemia. I requested D-dimer which came back slightly positive. I requested CT of the chest to rule out PE. That came back negative for PE but positive for right basilar infiltration. I suspect that the patient had aspirated overnight. Keep patient NPO. Continue Zosyn for aspiration pneumonia. Continue Solu-Medrol for possibility of aspiration pneumonitis. Continue to titrate BiPAP and/or high flow oxygen to keep saturation above 90% Altered mental status present on admission and worsened since yesterday. Could be related to medication side effect that he was taking at the custodial including but not limited to alprazolam, pepcid, gabapentin,, meclizine. Worsening mental status could be related to hypoxemia. No significant hypercapnia. No hypoglycemia Requested ammonia level. On admission, the patient had 2 CAT scans of the head, both came back negative for acute intracranial process. If his mental status does not improve, patient will likely need MRI to rule out ischemic stroke not seen on CT. Not sure if we can accomplish MRI here at [facility] while patient is on BiPAP. Meanwhile, I started patient on aspirin daily for possibility of ischemic stroke until we confirm or rule out with an MRI. IRINA Likely triggered by volume loss, dehydration side effect meloxicam, and urinary retention. Davenport catheter to relieve retention Avoid nephrotoxic agents such as meloxicam. Hypernatremia, likely representing water deficit. Start patient on hypotonic fluid. 1 bag and the sodium level is not 142 BNP is near normal 103. Urine retention more than 800 mL. Davenport catheter was placed in Start the patient on Flomax. Likely patient will need follow-up with urology. He may need to have cystoscopy and/or urodynamic study and/or prostate evaluation. Cognitive and functional loss. Brain imaging showed brain atrophy and microvascular disease. 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 This could be mixed with other possible neurodegenerative disorder such as senile degeneration versus Alzheimer. Continue aspirin and Plavix. Likely patient will need long-term custodial placement given his recurrent decompensation of condition and inability to take care of himself. Chronic, subacute medical conditions not listed above, abnormal labs and imaging, incidental findings seen on labs and or imaging. These would need to be addressed. Could be addressed later on or in the outpatient setting by PCP collaboration with other needed outpatient providers when time and condition are appropriate. I spent 1 hour in the critical care evaluation, assessment and treatment of this patient since 4 AM. Urinary Catheter Management Urinary Catheter Management 2-way Urethral: Cath placed during this visit: no
[2025-09-04] MEDS: ASPIRIN 300 MG SUPP.RECT PR (11:04)
[2025-09-04] MEDS: METOPROLOL TARTRATE 5 MG/5 ML VIAL 2.5 MG IVP ×3 (11:12→23:43)
--- NOTE | 2025-09-04 12:03 | MR_ITS ---
The [address] [address] Patient Name: TAJ RING MRN: [id number] date: 1945 Sex: M Assigned Patient Location: MS Current Patient Location: MS Accession/Order Number: [id number] Exam Date: 09/04/2025 13:15 Report Date: 09/04/2025 14:35 At the request of: JOURDAN FAIRCHILD MD Procedure: MR head/brain wo con EXAMINATION: MRI OF THE BRAIN WITHOUT CONTRAST CLINICAL HISTORY: Altered mental status COMPARISON: CT brain 09/02/2025, brain MRI 08/23/2025 TECHNIQUE: Multiecho, multiplanar imaging of the brain was performed without enhancement. FINDINGS: Examination is suboptimal due to patient motion. The scan was terminated early due to the motion. No evidence of restriction diffusion is an diffusion-weighted imaging. Cortical atrophy with chronic microvascular ischemic changes are seen on the T2 imaging. Posterior fossa is grossly unremarkable. Intraorbital contents appear grossly unremarkable. No significant paranasal sinus disease. MR/MR head/brain wo con IMPRESSION: LIMITED STUDY. NO DEFINITIVE ACUTE PROCESS IS SEEN. Impression dictated by: Vu Ramirez Jr., D.O. 09/04/2025 2:35 PM Dictation Location: [place] [address] Electronically authenticated by: [id number] Y Date: 09/04/2025 14:35
--- NOTE | 2025-09-04 12:03 | PM.EN ---
Event Note Event Note: I went back to check up on the patient. Is on BiPAP Saturation 97%. No distress. Patient is arousable. Able to open his eyes and look at me which is an improvement compared to when I saw him this morning but not as awake as yesterday. We will proceed with MRI of the brain to rule out any acute ischemic stroke or anoxic injury. Patient had been on telemetry monitoring since admission. No dysrhythmia noted on the monitor since admission.
--- NOTE | 2025-09-04 12:51 | PM.EN ---
Event Note Event Note: Nurse reported that patient mental status is improving. He was able to respond to her and follow her command squeezing her hands. I called his son Bubba to give him update on condition, status and treatment plan and also to see if he has any questions. He did not answer the phone. Left a message for him.
[2025-09-04] MEDS: METHYLPREDNISOLONE SOD SUCC PF 40 MG/ML VIAL IVP ×2 (13:03→23:43)
[2025-09-05] VITALS (50 sets, daily range): BP systolic 95–151; BP diastolic 67–100; PULSE 68–100; TEMP 36.3–37; O2SAT 84–98
[2025-09-05] MEDS: ZOLPIDEM TARTRATE 10 MG TABLET PO ×2 (00:21→21:08)
[2025-09-05] MEDS: IPRATROPIUM/ALBUTEROL SULFATE 3 ML AMPUL.NEB IH ×3 (03:56→15:22)
[2025-09-05] MEDS: NYSTATIN 500,000 UNIT/5 ML ORAL.SUSP 500000 UNIT PO ×4 (05:46→21:08)
[2025-09-05] MEDS: PIPERACILLIN SODIUM/TAZOBACTAM 3.375 GM in 0.9 % SODIUM CHLORIDE 50 ML IV ×3 (05:46→20:09)
[2025-09-05] MEDS: METOPROLOL TARTRATE 5 MG/5 ML VIAL 2.5 MG IVP (05:46)
[2025-09-05] MEDS: METHYLPREDNISOLONE SOD SUCC PF 40 MG/ML VIAL IVP (05:46)
[2025-09-05 06:00] LABS: Hematocrit 39.5 % (42.0-54.0); Hemoglobin 13.1 g/dL (14.0-18.0); Mean Corpuscular HGB Conc 33.2 g/dL (29.9-35.2); Mean Corpuscular Hemoglobin 29.4 pg (25.9-34.0); Mean Corpuscular Volume 88.8 fL (80.0-94.0); Platelet Count 196 10^3/uL (150-450); Red Blood Count 4.45 10^6/uL (4.70-6.10); White Blood Count 11.6 10^3/uL (4.0-11.0)
[2025-09-05 06:17] LABS: Alanine Aminotransferase 22 U/L (16-63); Albumin Globulin Ratio 0.9; Albumin Level 3.2 g/dL (3.4-5.0); Alkaline Phosphatase 73 U/L (46-116); Anion Gap 14.9; Aspartate Amino Transferase 14 U/L (15-37); Blood Urea Nitrogen 29.0 mg/dL (7.0-18.0); Calcium 8.7 mg/dL (8.5-10.1); Carbon Dioxide 28.1 mmol/L (21.0-32.0); Chloride 104 mmol/L (98-107); Estimated GFR (African America 47 (>=60 mL/min/1.73m^2); Estimated GFR (Non-African Ame 39 (>=60 mL/min/1.73m^2); Globulin 3.7 g/dL; Glucose 149 mg/dL (74-106); Potassium 4.0 mmol/L (3.5-5.1); Sodium 143 mmol/L (136-145); Total Protein 6.9 g/dL (6.4-8.2)
--- NOTE | 2025-09-05 07:50 | CM.NOTE ---
Rounds made with Dr. Loera, pt awake and answering questions this am. Dr. Loera discussed plan of care with pt.
--- NOTE | 2025-09-05 08:03 | RESP.RT ---
titrated down to 3 LPM NC
--- NOTE | 2025-09-05 08:28 | PM.PN ---
Progress Note: Subjective Subjective Interval history: Patient is doing so much better today. His awake and alert. Able to engage. He is requesting to be discharged home. He stated that he feels great. He stated that he can manage to go home and take care of himself. Able to challenge my decision not to discharge him today. Able to maneuver. He denies any chest or abdominal pain. Exam Narrative Exam Narrative: Once again, his neurological status has significantly improved compared to yesterday morning. Much more awake and coherent. Able to engage. Able to answer questions. Able to follow commands. He does have moderate functional loss which is a chronic. He needs help sitting up so I can listen to his lungs. Unable to stand up and ambulate on his own needing 1 or 2 assist which is his baseline his cognition is back to baseline. Chest exam revealed fine crackles at the right base. Heart is regular. Abdomen soft, nontender. Constitutional Vital Signs, click to edit/add: Last Vital Signs Temp 98 F 09/05/25 07:28 Pulse 97 H 09/05/25 08:02 Resp 22 H 09/05/25 07:28 BP 133/92 H 09/05/25 07:28 Pulse Ox 95 09/05/25 08:02 O2 Del Method Nasal Cannula 09/05/25 08:02 O2 Flow Rate 4 09/05/25 08:02 FiO2 40 09/04/25 14:31 Progress Note: Objective Labs Labs: Short CBC 09/05/25 Range/Units 05:40 WBC 11.6 H (4.0-11.0) 10^3/uL Hgb 13.1 L (14.0-18.0) g/dL Hct 39.5 L (42.0-54.0) % Plt Count 196 (150-450) 10^3/uL BMP 09/05/25 05:40 Sodium 143 Potassium 4.0 Chloride 104 Carbon Dioxide 28.1 BUN 29.0 H Creatinine 1.72 H Glucose 149 H Calcium 8.7 Liver Function 09/05/25 Range/Units 05:40 Total Bilirubin 0.6 (0.2-1.0) mg/dL AST 14 L (15-37) U/L ALT 22 (16-63) U/L Alkaline Phosphatase 73 (46-116) U/L Albumin 3.2 L (3.4-5.0) g/dL Progress Note: A&P Assessment and Plan (1) Fall: Plan Acute hypoxic respiratory failure Much improved. Patient is off BiPAP. He was downgraded to Ventimask and down to [address] scan does not show any PE but positive for right basilar pneumonia. Suspect aspiration. Start him on a modified diet. Swallow evaluation. Continue Zosyn. Discontinue Solu-Medrol that was given for aspiration pneumonitis Try to wean him off oxygen if possible Altered mental status present on admission and worsened on 09/03 and . Much improvement 09/05. Back to baseline state. Much more coherent. Able to engage. Able to challenge my decision not to let him go home. He feels great. MRI does not show any acute stroke nor any evidence of a cerebral edema or hypoxic injury. Patient continues to have functional impairment which is chronic for him and progressive over the last several months Continue aspirin and Plavix Continue to avoid neurotoxic drugs such as to when he was taking prior to admission including Xanax, Ambien, gabapentin, Percocet and Pepcid. Continue PT OT eval and treatment. Social work consultation and arrange for skilled care. IRINA, CKD. Baseline creatinine ranges between 1.4 and 1.7. Acute component is likely triggered by volume loss, dehydration side effect meloxicam, and urinary retention. Davenport catheter to relieve retention Avoid nephrotoxic agents such as meloxicam. Hypernatremia, likely representing water deficit. Start patient on hypotonic fluid. 1 bag and the sodium level is not 142 BNP is near normal 103. Urine retention more than 800 mL. Davenport catheter was placed in Start the patient on Flomax. Likely patient will need follow-up with urology. He may need to have cystoscopy and/or urodynamic study and/or prostate evaluation. Positive D-dimer CTA of the chest negative for PE. Requested venous study. Positive D-dimer is occasionally associated with underlying malignancy. Recommend patient to undergo age-appropriate cancer screening postdischarge from acute care to be arranged by PCP. Chronic, subacute medical conditions not listed above, abnormal labs and imaging, incidental findings seen on labs and or imaging. These would need to be addressed. Could be addressed later on or in the outpatient setting by PCP collaboration with other needed outpatient providers when time and condition are appropriate. I spent 1 hour in the critical care evaluation, assessment and treatment of this patient since 4 AM. Urinary Catheter Management Urinary Catheter Management 2-way Urethral: Cath placed during this visit: yes Urethral indwelling: Yes Reason for continuing: not indwelling catheter Insertion date: 09/02/25 Insertion time: 15:14
[2025-09-05] MEDS: PANTOPRAZOLE SODIUM 40 MG TABLET.DR PO (09:21)
[2025-09-05] MEDS: CARVEDILOL 12.5 MG TABLET PO ×2 (09:21→21:08)
[2025-09-05] MEDS: ASPIRIN 300 MG SUPP.RECT PR (09:21)
[2025-09-05] MEDS: CLOPIDOGREL BISULFATE 75 MG TABLET PO (09:21)
[2025-09-05] MEDS: HEPARIN SODIUM (PORCINE) 5,000 UNIT/ML VIAL 5000 UNIT SUBQ ×2 (09:21→21:08)
[2025-09-05] MEDS: ALLOPURINOL 100 MG TABLET PO (09:22)
[2025-09-05] MEDS: QUETIAPINE FUMARATE 25 MG TABLET PO ×2 (09:23→21:08)
[2025-09-05] MEDS: COLCHICINE 0.6 MG TABLET PO (09:55)
--- NOTE | 2025-09-05 10:16 | PM.CSD1 ---
Advance Care Planning Advance Care Planning Discussion Advance care planning discussion summary: Goals of care discussion Advance care plan Patient is awake and alert. Able to engage in simple conversation but unable to engage in complex conversation related to his health. I met his son Bubba. I spent about 20 minutes conversation with Bubba. I gave him update on his condition, status and treatment plan. We discussed his CODE STATUS. I explained in simple terms the process of CPR including chest compressions, shocks, intubation life support I explained in simple terms the difference between full code and CCA. His son wants everything to be done at this time including resuscitative effort. If patient develops cardiac arrest and ended up being on life support or suffering neurological deficit he would not want him to have a trach and PEG. He would recommend discontinuation of life supporting measures if his prognosis is poor. At this time, his wishes are aligned with a full CODE STATUS
--- NOTE | 2025-09-05 10:33 | CM.NOTE ---
CM spoke with son Bubba (phone conversation) regarding pt changing to inpatient status IMM, son verbalizes understanding and CM signed paper. Original given to pt and copy placed on pt's chart.
--- NOTE | 2025-09-05 10:52 | SWNOTE1 ---
SW sent updated physician note from today and yesterday, PT/OT from today, code status discussion, labs, vitals, med list, and shift assessments from the last 8 hours to [facility] for precert. SW spoke to pt and son in room. Pt's son voiced when he first entered room, pt looked puzzled, but after talking to him for a minute he recognized him. Pt voiced he is feeling better and ready to go home. SW let him know he has to get some therapy and go back to [facility]. Pt's son had also let pt know that he will likely be staying retirement at the [facility]. Pt's son voiced that pt was not to happy with this. At this time pt and son have no further questions. SW let Dr. Loera know that pt's son is in room. Dr. Loera to be in and talk to son.
--- NOTE | 2025-09-05 14:09 | SWNOTE1 ---
SW took packet to the floor in case of approval this evening or tomorrow.
--- NOTE | 2025-09-05 15:23 | RESP.RT ---
decreased to 3 LPM
[2025-09-05] MEDS: ATORVASTATIN CALCIUM 20 MG TABLET PO (21:08)
[2025-09-06] VITALS (9 sets, daily range): BP systolic 130–141; BP diastolic 80–84; PULSE 66–76; TEMP 36.4–36.7; O2SAT 92–97
[2025-09-06] MEDS: PIPERACILLIN SODIUM/TAZOBACTAM 3.375 GM in 0.9 % SODIUM CHLORIDE 50 ML IV ×3 (04:16→21:54)
[2025-09-06] MEDS: NYSTATIN 500,000 UNIT/5 ML ORAL.SUSP 500000 UNIT PO ×4 (05:29→21:54)
--- NOTE | 2025-09-06 09:06 | P.PN_ITS ---
Progress Note: Subjective Subjective Interval history: Uneventful evening and the night. Patient is much more awake and coherent. Able to engage. Denies any chest or abdominal pain. Denies any cough or shortness of breath. Exam Narrative Exam Narrative: Once again, his neurological status has significantly improved compared to Wednesday evening or Wednesday morning. Much more awake and coherent. Able to engag e. Able to answer questions. Able to follow commands. He does have moderate functional loss which is a chronic. He needs help sitting up so I can listen to his lungs. Unable to stand up and ambulate on his own needing 1 or 2 assist which is his baseline his cognition is back to baseline. Chest exam revealed fine crackles at the right base. Heart is regular. Abdomen soft, nontender. Constitutional Vital Signs, click to edit/add: Last Vital Signs Temp 97.7 F 09/06/25 04:20 Pulse 68 09/06/25 08:00 Resp 22 H 09/06/25 04:20 BP 141/80 09/06/25 04:20 Pulse Ox 95 09/06/25 08:00 O2 Del Method Nasal Cannula 09/06/25 04:20 O2 Flow Rate 2 09/06/25 04:20 FiO2 40 09/04/25 14:31 Progress Note: A&P Assessment and Plan (1) Fall: Plan Acute hypoxic respiratory failure Acute aspiration pneumonia Much improved. Patient is off BiPAP. He was downgraded to Ventimask and down to 4 L and now is down to [address] scan does not show any PE but positive for right basilar pneumonia. Suspect aspiration. Start him on a modified diet. Swallow evaluation. Continue Zosyn. Discontinue Solu-Medrol that was given for aspiration pneumonitis Try to wean him off oxygen if possible. Swallow evaluation was completed and mechanical soft diet with nectar thick liquid had been recommended. Altered mental status present on admission and worsened on 09/03 and . Much improvement 09/05. Back to baseline state. Much more coherent. Able to engage. Able to challenge my decision not to let him go home. He feels great. I do suspect that the patient is having gradual deterioration of his cognitive and functional status over the last several months I suspect that he may have progression of vascular dementia versus other type of senile degeneration. MRI does not show any acute stroke nor any evidence of a cerebral edema or hypoxic injury. Patient continues to have functional impairment which is chronic for him and progressive over the last several months Continue aspirin and Plavix Continue to avoid neurotoxic drugs such as to when he was taking prior to admission including Xanax, Ambien, gabapentin, Percocet and Pepcid. Continue PT OT eval and treatment. Social work consultation and arrange for skilled care. IRINA, CKD. Baseline creatinine ranges between 1.4 and 1.7. Acute component is likely triggered by volume loss, dehydration side effect meloxicam, and urinary retention. Davenport catheter to relieve retention Avoid nephrotoxic agents such as meloxicam. Hypernatremia, likely representing water deficit. Start patient on hypotonic fluid. 1 bag and the sodium level is not 142 BNP is near normal 103. Urine retention more than 800 mL. Davenport catheter was placed in Start the patient on Flomax. Likely patient will need follow-up with urology. He may need to have cystoscopy and/or urodynamic study and/or prostate evaluation. Hypertension, good control Continue Coreg. Continue to hold amlodipine Positive D-dimer CTA of the chest negative for PE. Requested venous study. This came back negative for DVT Positive D-dimer is occasionally associated with underlying malignancy. Recommend patient to undergo age-appropriate cancer screening postdischarge from acute care to be arranged by PCP. Chronic, subacute medical conditions not listed above, abnormal labs and imaging, incidental findings seen on labs and or imaging. These would need to be addressed. Could be addressed later on or in the outpatient setting by PCP collaboration with other needed outpatient providers when time and condition are appropriate. I had discussed this case with his son Bubba on 09/05 at length. Urinary Catheter Management Urinary Catheter Management 2-way Urethral: Cath placed during this visit: yes Urethral indwelling: Yes Reason for continuing: not indwelling catheter Insertion date: 09/02/25 Insertion time: 15:14
[2025-09-06] MEDS: CLOPIDOGREL BISULFATE 75 MG TABLET PO (09:26)
[2025-09-06] MEDS: TAMSULOSIN HCL 0.4 MG CAPSULE PO (09:26)
[2025-09-06] MEDS: ASPIRIN 81 MG TAB.CHEW PO (09:26)
[2025-09-06] MEDS: PANTOPRAZOLE SODIUM 40 MG TABLET.DR PO (09:27)
[2025-09-06] MEDS: ALLOPURINOL 100 MG TABLET PO (09:27)
[2025-09-06] MEDS: CARVEDILOL 12.5 MG TABLET PO ×2 (09:27→21:53)
[2025-09-06] MEDS: HEPARIN SODIUM (PORCINE) 5,000 UNIT/ML VIAL 5000 UNIT SUBQ ×2 (09:27→21:54)
[2025-09-06] MEDS: NITROGLYCERIN 0.4 MG BOTTLE SL (14:48)
--- NOTE | 2025-09-06 15:14 | ECG_ITS ---
[facility] Test Date: 2025-09-06 Pat Name: TAJ RING Department: Room: 2171 Gender: Male Analytics Director: : [id number] Requested By: [id number] Order Number: [id number] Reading MD: EUNICE FULTON M.D. Measurements Intervals [place] Rate: 70 P: 47 MA: 155 QRS: -54 QRSD: 108 T: 10 QT: 401 QTc: 433 Interpretive Statements SINUS RHYTHM LOW QRS VOLTAGE IN PRECORDIAL LEADS [QRS DEFLECTION < 1.0 mV IN CHEST LEADS] LEFT ANTERIOR FASCICULAR BLOCK [QRS AXIS <= -45, QR IN I, RS IN II] POSSIBLE ANTERIOR MYOCARDIAL INFARCTION [30 ms Q WAVE IN V3/V4, OR R < 0.2 mV IN V4], PROBABLY OLD Abnormal ECG Compared to ECG 09/02/2025 13:34:09 Left anterior fascicular block now present Myocardial infarct finding still present Electronically Signed On 09-06-2025 21:35:24 EST by EUNICE FULTON M.D.
[2025-09-06] MEDS: ATORVASTATIN CALCIUM 20 MG TABLET PO (21:53)
[2025-09-06] MEDS: QUETIAPINE FUMARATE 25 MG TABLET PO (21:53)
[2025-09-06] MEDS: ZOLPIDEM TARTRATE 10 MG TABLET PO (21:53)
[2025-09-07 00:35] VITALS: BP 130/88; PULSE 76; TEMP 37.1; O2SAT 91
[2025-09-07 04:00] VITALS: BP 134/82; PULSE 71; O2SAT 93
[2025-09-07] MEDS: PIPERACILLIN SODIUM/TAZOBACTAM 3.375 GM in 0.9 % SODIUM CHLORIDE 50 ML IV (04:59)
[2025-09-07] MEDS: NYSTATIN 500,000 UNIT/5 ML ORAL.SUSP 500000 UNIT PO (05:00)
[2025-09-07 06:07] LABS: Anion Gap 11.1; Blood Urea Nitrogen 21.0 mg/dL (7.0-18.0); Calcium 8.3 mg/dL (8.5-10.1); Carbon Dioxide 30.4 mmol/L (21.0-32.0); Chloride 110 mmol/L (98-107); Estimated GFR (African America >60 (>=60 mL/min/1.73m^2); Estimated GFR (Non-African Ame 52 (>=60 mL/min/1.73m^2); Glucose 100 mg/dL (74-106); Potassium 3.5 mmol/L (3.5-5.1); Sodium 148 mmol/L (136-145)
--- NOTE | 2025-09-07 07:40 | CM.NOTE ---
Rounds made with Dr. Loera, discussed plan of care with pt. Possible discharge today for skilled therapy at [place].
[2025-09-07 07:52] VITALS: BP 137/78; PULSE 77; TEMP 36.7; O2SAT 92
[2025-09-07] MEDS: CARVEDILOL 12.5 MG TABLET PO (08:26)
[2025-09-07] MEDS: CLOPIDOGREL BISULFATE 75 MG TABLET PO (08:26)
[2025-09-07] MEDS: PANTOPRAZOLE SODIUM 40 MG TABLET.DR PO (08:26)
[2025-09-07] MEDS: ALLOPURINOL 100 MG TABLET PO (08:26)
[2025-09-07] MEDS: TAMSULOSIN HCL 0.4 MG CAPSULE PO (08:26)
[2025-09-07] MEDS: ASPIRIN 81 MG TAB.CHEW PO (08:26)
[2025-09-07] MEDS: HEPARIN SODIUM (PORCINE) 5,000 UNIT/ML VIAL 5000 UNIT SUBQ (08:27)
[2025-09-07] MEDS: DEXTROSE 5 % IN WATER 1,000 ML 75 ML IV (08:27)
--- NOTE | 2025-09-07 08:47 | P.DS_ITS ---
DS: Providers Provider Date of admission: 09/04/25 08:39 Primary care physician: KELLEN BALBUENA Consults: 09/02/25 19:54 Occupational Therapy Eval and Treat Routine Reason for consultation: not walking well. Falling Has provider been notified: No Physical Therapy Eval and Treat Routine Reason for consultation: not walking well. Falling. Has provider been notified: No 09/05/25 08:25 Clinical Bedside Swallow Eval and Treat Routine Reason for consultation: Dysphagia DS: Diagnosis Discharge Diagnosis (1) Fall: Plan As listed above, below and others that are not listed DS: Summary Hospital Course Hospital Course: Mr. Salamanca is a 79-year-old gentleman who came in with altered mental status. He was found to have the following: Acute hypoxic respiratory failure Acute aspiration pneumonia Much improved. Patient is off BiPAP. He was downgraded to Ventimask and down to 4 L and now is down to [address] scan does not show any PE but positive for right basilar pneumonia. Suspect aspiration. Start him on a modified diet. Swallow evaluation. Continue Zosyn. Switching to oral Augmentin. Discontinue Solu-Medrol that was given for aspiration pneumonitis Try to wean him off oxygen if possible. Swallow evaluation was completed and mechanical soft diet with nectar thick liquid had been recommended. Altered mental status present on admission and worsened on 09/03 and . Much improvement 09/05. Back to baseline state. Much more coherent. Able to engage. Able to challenge my decision not to let him go home. He feels great. I do suspect that the patient is having gradual deterioration of his cognitive and functional status over the last several months I suspect that he may have progression of vascular dementia versus other type of senile degeneration. MRI does not show any acute stroke nor any evidence of a cerebral edema or hypoxic injury. Patient continues to have functional impairment which is chronic for him and progressive over the last several months Continue aspirin and Plavix Continue to avoid neurotoxic drugs such as to when he was taking prior to admission including Xanax, Ambien, gabapentin, Percocet and Pepcid. Continue PT OT eval and treatment. Social work consultation and arrange for skilled care. Patient will be discharged to skilled care [place], CKD. Baseline creatinine ranges between 1.4 and 1.7. Acute component is likely triggered by volume loss, dehydration side effect meloxicam, and urinary retention. Davenport catheter to relieve retention Avoid nephrotoxic agents such as meloxicam. Kidney function is back to baseline Hypernatremia, likely representing water deficit. Start patient on hypotonic fluid. 1 bag and the sodium level is not 142 BNP is near normal 103. Urine retention more than 800 mL. Davenport catheter was placed in Start the patient on Flomax. Davenport catheter was removed. Patient is able to void. Postvoid residual is 11 in the next is 13. No need to reinsert Davenport. No need for urological investigation at this time. Hypertension, good control Continue Coreg. Continue to hold amlodipine Positive D-dimer CTA of the chest negative for PE. Requested venous study. This came back negative for DVT Positive D-dimer is occasionally associated with underlying malignancy. Recommend patient to undergo age-appropriate cancer screening postdischarge from acute care to be arranged by PCP. Chronic, subacute medical conditions not listed above, abnormal labs and imaging, incidental findings seen on labs and or imaging. These would need to be addressed. Could be addressed later on or in the outpatient setting by PCP collaboration with other needed outpatient providers when time and condition are appropriate. Patient has multiple complex medical issues as listed above and others that are not listed. All appear to be stable. I do not have any clear or strong clinical justification to extend inpatient hospitalization. Patient however will require close and frequent monitoring as well as additional work-up, investigation and therapeutic intervention that could take place from this point on post discharge. That is to prevent relapse, decompensation, rehospitalization and other medical implications. Discharge medications as listed are not final or set in stone. Primary care doctor and other out patient providers will need to titrate and adjust medications as soon as the first post discharge visit based on clinical progression, vitals signs, volume status and other related organs function. I instructed patient to ask her primary care doctor to obtain [facility] record entirely to address abnormalities seen on labs and imaging that I have and have not addressed during this hospitalization, follow-up on pending blood work, imaging and pathology is if available and to follow-up on needed medical care in the outpatient setting. Time Spent with Patient Time attestation: Total time spent providing and/or coordinating discharge services: Exam Narrative Exam Narrative: Once again, his neurological status has significantly improved compared to Wednesday evening or Wednesday morning. Much more awake and coherent. Able to engage. Able to answer questions. Able to follow commands. He does have moderate functional loss which is a chronic. He needs help sitting up so I can listen to his lungs. Unable to stand up and ambulate on his own needing 1 or 2 assist which is his baseline his cognition is back to baseline. Chest exam revealed fine crackles at the right base. Heart is regular. Abdomen soft, nontender. Constitutional Vital Signs, click to edit/add: Last Vital Signs Temp 98.1 F 09/07/25 07:52 Pulse 77 09/07/25 07:52 Resp 16 09/07/25 04:00 BP 137/78 09/07/25 07:52 Pulse Ox 92 L 09/07/25 07:52 O2 Del Method Nasal Cannula 09/07/25 07:52 O2 Flow Rate 1 09/07/25 07:52 FiO2 40 09/04/25 14:31 DS: Data Data Completed and Pending Labs on day of discharge: Labs from last 24 hours 09/07/25 09/06/25 09/06/25 04:47 17:48 15:52 Sodium 148 H Potassium 3.5 Chloride 110 H Carbon Dioxide 30.4 Anion Gap 11.1 BUN 21.0 H Creatinine 1.33 H Est GFR ( Amer) >60 Est GFR (Non-Af Amer) 52 L BUN/Creatinine Ratio 15.8 Glucose 100 Calcium 8.3 L Troponin I High Sens 8.8 8.5 Discharge Plan Discharge Disposition: Xfer SNF Condition: Fair Discharge Medications: New quetiapine 25 mg Tablet 25 mg PO QHS Qty: 0 0RF acetaminophen 325 mg Tablet 650 mg PO Q6H PRN (Reason: pain) Qty: 0 0RF atorvastatin 20 mg Tablet 20 mg PO QHS Qty: 0 0RF carvedilol 12.5 mg Tablet 12.5 mg PO BID Qty: 0 0RF tamsulosin 0.4 mg Capsule 0.4 mg PO QD Qty: 0 0RF amoxicillin-pot clavulanate [Augmentin] 500-125 mg tablet 1 tab PO BID 7 Days Qty: 14 0RF Continued pantoprazole [Protonix] 40 mg tablet,delayed release (DR/EC) 40 mg PO DAILY Qty: 30 0RF clopidogrel 75 mg tablet 75 mg PO DAILY simvastatin 40 mg tablet 40 mg PO BEDTIME allopurinol 100 mg tablet 100 mg PO DAILY nitroglycerin 0.4 mg tablet, sublingual 0.4 mg sublingual Q5M PRN (Reason: chest pain) alum-mag hydroxide-simeth [Mag-Al Plus] 200-200-20 mg/5 mL Suspension 30 ml PO Q4H PRN (Reason: Sore Throat) 15 Days Qty: 3000 0RF Discontinued amlodipine 2.5 mg tablet 2.5 mg PO DAILY meclizine 25 mg tablet 25 mg PO TID PRN (Reason: dizziness) sucralfate 1 gram tablet 1 g PO TID carvedilol 25 mg tablet 25 mg PO Q12H colchicine 0.6 mg capsule 0.6 mg PO .MWF famotidine [Pepcid] 20 mg tablet 20 mg PO BID Qty: 20 0RF gabapentin 300 mg capsule 300 mg PO BEDTIME meloxicam 7.5 mg tablet 7.5 mg PO .QD zolpidem 10 mg tablet 10 mg PO .QHS hydrocodone-acetaminophen 10-325 mg tablet 1 tab PO Q6H PRN (Reason: pain) lidocaine HCl 2 % Solution 15 ml PO Q4H PRN (Reason: Sore Throat) Qty: 100 0RF triamcinolone acetonide 0.1 % cream 1 applic topical TID Qty: 80 0RF alprazolam 0.5 mg Tablet 0.5 mg PO BID 2 Days Qty: 4 0RF Print Language: Tamazight Activity Restrictions/Additional Instructions: I may not have addressed or treated all of your medical illnesses or the abnormal blood work or imaging studies during this hospitalization. Please ask your primary care provider to obtain [facility] records entirely to follow up on all of the abnormal physical, laboratory, and imaging findings that I have not addressed. Please return back to the emergency room or seek medical attention if your symptoms worsen or return. Discharging you from [facility] does not mean that your medical care ends here and now. You may still need additional monitoring, work up, investigation, and treatment plan to be handled from this point on by out patient providers including your primary care provider and specialists. For any medication question, please contact your retail pharmacist or your primary care provider. For halfway providers: Fall precaution Modified diet mechanical soft with nectar thick liquid Recommend swallow team consultation to work with the patient to improve his swallowing ability. CBC and BMP weekly for 2 weeks Avoid medications with RET[employer]QUIPMENT ASSOCIATE side effect such as RET[employer]QUIPMENT ASSOCIATE depression, lethargy, confusion and/or disorientation. Thank you. Forms: Portal Instructions
--- NOTE | 2025-09-07 09:05 | SWNOTE1 ---
SW reached out to [facility] and pt's precert is still pending. SW to call pt's insurance.
[2025-09-07 10:00] VITALS: O2SAT 94
--- NOTE | 2025-09-07 10:00 | CM.NOTE ---
CM updated CRF for pt's discharge to [facility] skilled therapy.
--- NOTE | 2025-09-07 10:07 | CM.NOTE ---
2nd Important Message From Medicare discussed with pt, pt denies any questions or concerns. Pt is A&Ox3
--- NOTE | 2025-09-07 10:09 | SWNOTE1 ---
MAKSIM called the insurance and spoke to Deepa at [facility] and she voiced that the precert was incomplete for SNF. MAKSIM asked if she was talking about the prior auth for inpt at hospital. Deepa at [facility] was unsure at this time. MAKSIM attempted to call back the insurance, but while MAKSIM was doing this, [facility] called and pt is approved. SW to send discharge orders and update the nurse.
--- NOTE | 2025-09-07 10:15 | SWNOTE1 ---
[facility] did let SW know that pt is approved through the .
--- NOTE | 2025-09-07 10:33 | SWNOTE1 ---
SW faxed dc summary, dc med rec, updated vitals and shift assessments to the [facility]. SW called [facility] and they are able to transport between 1:15-1:30. MAKSIM let nurse, Levasy, pt's son, and [facility] know of discharge time. MAKSIM took packet and CRF to the med/surge floor.
--- NOTE | 2025-09-07 10:47 | SWNOTE1 ---
SW did express to [facility], pt's significant other, and Bubba, pt's son, to really consider having him stay rat exterminator at the [facility]. SW let pt's son know that MAKSIM Gasca at [facility], is going to coordinate a meeting with him to discuss rat exterminator plans.
[2025-09-07 11:14] VITALS: BP 125/80; PULSE 88; TEMP 36.6; O2SAT 92
--- NOTE | 2025-09-10 10:01 | SWNOTE1 ---
Veronika, nurse at [facility], called and requested pt's swallow eval be sent over to them. MAKSIM advised it should have been in the packet he returned with, but SW can fax it over. SW faxed swallow eval over to [facility].
== END 2025-09-07 13:32 | DRG 177 ==
LOC: ER 18:29 → MS 19:58
PROVIDERS: Internal Medicine; Admitting Provider Hospitalist; Emergency Provider Emergency Medicine; PCP Internal Medicine; Visit Provider Hospitalist
DX: J69.0 Pneumonitis due to inhalation of food and vomit (principal); J96.01 Acute respiratory failure with hypoxia; N17.9 Acute kidney failure, unspecified; E87.0 Hyperosmolality and hypernatremia; E86.0 Dehydration; R41.82 Altered mental status, unspecified; T47.0X5A Adverse effect of histamine H2-receptor blockers, initial encounter; T42.6X5A Adverse effect of other antiepileptic and sedative-hypnotic drugs, initial encounter; T40.2X5A Adverse effect of other opioids, initial encounter; T42.4X5A Adverse effect of benzodiazepines, initial encounter; R33.9 Retention of urine, unspecified; F01.C0 Vascular dementia, severe, without behavioral disturbance, psychotic disturbance, mood disturbance, and anxiety; I12.9 Hypertensive chronic kidney disease with stage 1 through stage 4 chronic kidney disease, or unspecified chronic kidney disease; I25.10 Atherosclerotic heart disease of native coronary artery without angina pectoris; N18.9 Chronic kidney disease, unspecified; G62.9 Polyneuropathy, unspecified; G40.909 Epilepsy, unspecified, not intractable, without status epilepticus; E78.00 Pure hypercholesterolemia, unspecified; S40.812A Abrasion of left upper arm, initial encounter; S30.81AA Abrasion of flank, initial encounter; W17.89XA Other fall from one level to another, initial encounter; Y93.F9 Activity, other caregiving; Y92.230 Patient room in hospital as the place of occurrence of the external cause; Z79.02 Long term (current) use of antithrombotics/antiplatelets; Z79.1 Long term (current) use of non-steroidal anti-inflammatories (NSAID); Z79.899 Other long term (current) drug therapy
CPT/HCPCS: 36415; 36600; 51798; 70450; 70551; 71045; 71275; 72125; 74177; 76376; 80048; 80053; 81001; 82550; 82805; 82948; 83880; 84484; 85025; 85027; 85378; 85610; 85730; 87804; 87811; 92610; 93005; 93970; 94640; 94660; 94761; 96372; 97110; 97116; 97162; 97165; 97530; 97535; 99285; G0378; J1644; J1938; J2543; J2919; J3486; Q9967